=== PATIENT | male | born 1975 | race Caucasian/White ===

== ENCOUNTER 2022-10-21 08:04 | Outpatient (OUT) | payer OTHER, SELFPAY ==
[2022-10-21 08:56] LABS: Basophils Percent Auto 0.5 % (0.2-2.0); Eosinophils Absolute Auto 0.2 10^3/uL (0.0-0.7); Eosinophils Percent Auto 2.4 % (0.9-7.0); Hematocrit 41.5 % (42.0-54.0); Immature Granulocytes Abs Auto 0.02 10^3/uL (0.00-0.03); Immature Granulocytes Pct Auto 0.3 % (0.0-0.5); Mean Corpuscular HGB Conc 33.7 g/dL (29.9-35.2); Mean Corpuscular Hemoglobin 28.7 pg (25.9-34.0); Mean Platelet Volume 9.9 fL (9.5-13.5); Monocytes Absolute Auto 0.5 10^3/uL (0.3-0.8); Monocytes Percent Auto 6.6 % (1.7-12.0); Neutrophils Absolute Auto 4.7 10^3/uL (1.4-6.5); Neutrophils Percent Auto 63.2 % (43.0-75.0); Platelet Count 205 10^3/uL (150-450); Red Blood Count 4.88 10^6/uL (4.70-6.10); Red Cell Distribution Width 13.2 % (11.0-15.0); White Blood Count 7.4 10^3/uL (4.0-11.0)
[2022-10-21 09:03] LABS: Alanine Aminotransferase 34 U/L (16-63); Albumin Level 3.7 g/dL (3.4-5.0); Alkaline Phosphatase 87 U/L (46-116); Anion Gap 11.7; Aspartate Amino Transferase 20 U/L (15-37); BUN Creatinine Ratio 12.2; Bilirubin Total 0.4 mg/dL (0.2-1.0); Calcium 8.6 mg/dL (8.5-10.1); Carbon Dioxide 28.7 mmol/L (21.0-32.0); Chloride 103 mmol/L (98-107); Chol HDL Ratio 4.7; Cholesterol 127 mg/dL (<=200); Estimated GFR (African America >60 (>=60); Estimated GFR (Non-African Ame >60 (>=60); Globulin 3.6 g/dL; Glucose 146 mg/dL (74-106); HDL Cholesterol 27 mg/dL (40-60); Potassium 3.4 mmol/L (3.5-5.1); Sodium 140 mmol/L (136-145); Total Protein 7.3 g/dL (6.4-8.2); Triglycerides 126 mg/dL (<=150); VLDL CHOLESTEROL 25.2 mg/dL
[2022-10-21 09:04] LABS: Estimated Average Glucose 140 mg/dL; Glycohemoglobin A1C 6.5 % (4.5-6.2)
[2022-10-21 15:01] LABS: Creatinine Urine Random 245.89 mg/dL (20.00-300.00); Microalbum Creatinine Ratio Ur 7.3 mg/g (0.0-29.9); Microalbumin Urine Random 1.8 mg/dL (<=30.0)
== END 2022-10-21 08:05 | disposition home or self-care (01) ==
LOC: LAB 08:08
PROVIDERS: PCP Internal Medicine; Visit Provider Internal Medicine
DX: E11.9 Type 2 diabetes mellitus without complications (principal); I10 Essential (primary) hypertension; E78.5 Hyperlipidemia, unspecified
CPT/HCPCS: 36415; 80053; 80061; 82043; 82570; 83036; 85025

== ENCOUNTER 2022-10-24 15:15 | Emergency (ER) | payer OTHER, SELFPAY ==
[2022-10-24 15:18] VITALS: BP 131/75; PULSE 86; RESP 18; TEMP 37.1; O2SAT 94; BMI 43.6
--- NOTE | 2022-10-24 15:24 | ED.ABDPAIN1 ---
HPI - Abdominal Pain General Chief Complaint: Abdominal Pain Stated Complaint: ABDOMINAL PAIN Time Seen by Provider: 10/24/22 15:17 Source: patient Mode of arrival: walk-in History of Present Illness HPI narrative: 47-year-old male presents for abdominal pain. It starts at the umbilicus and wraps towards the right in a dermatomal fashion. It started about 2:00 this morning, about thirteen hours ago. No trauma fever constipation or diarrhea. No cough chest pain or chest pressure or shortness of breath. No pain on the left. It's mild to moderate. He states he had similar circumstances 4-6 months ago and they did x-rays and blood testing CAT scans but couldn't find the cause. Related Data Home Medications Medication Instructions Recorded Confirmed allopurinol 300 mg tablet 300 mg PO Q12H 10/24/22 10/24/22 amlodipine 10 mg tablet 10 mg PO QDAY 10/24/22 10/24/22 aspirin 81 mg tablet,delayed 81 mg PO QDAY 10/24/22 10/24/22 release buspirone 10 mg tablet 10 mg PO QDAY 10/24/22 10/24/22 carvedilol 25 mg tablet 25 mg PO Q12H 10/24/22 10/24/22 dulaglutide 1.5 mg/0.5 mL 1.5 mg subcut QDAY 10/24/22 10/24/22 subcutaneous pen injector (Trulicity) losartan 100 1 tab PO QDAY 10/24/22 10/24/22 mg-hydrochlorothiazide 25 mg tablet pravastatin 40 mg tablet 40 mg PO QDAY 10/24/22 10/24/22 tizanidine 4 mg tablet 4 mg PO Q12H 10/24/22 10/24/22 Allergies Allergy/AdvReac Type Severity Reaction Status Date / Time No Known Drug Allergies Allergy Verified 10/24/22 15:18 Review of Systems ROS Narrative A ten point review of systems is negative except as noted above. Exam Narrative Exam Narrative: Nurses note and vital signs reviewed and patient is not hypoxic. General: The patient appears well and in no apparent distress. Patient is resting comfortably on cart. Skin: Warm, dry, no pallor noted. There is no rash noted. Head: Normocephalic, atraumatic Eye: Normal conjunctiva, no drainage Ears, Nose, Mouth, and Throat: oral mucosa is moist. Nares patent. Cardiovascular: Regular Rate and Rhythm Respiratory: Patient is in no distress, no accessory muscle use, lungs are clear to auscultation, no wheezing, rales or rhonchi Back: non-tender GI: obese. Nondistended. There is no tenderness. There is no bruise or rash. There is no rash of shingles. Musculoskeletal: The patient has no evidence of calf tenderness, no pitting edema, symmetrical pulses noted bilaterally Neurological: A&O x4, normal speech Psychiatric: Cooperative Constitutional Vital Signs, click to edit/add: Last Vital Signs Temp 98.7 F 10/24/22 15:18 Pulse 86 10/24/22 15:18 Resp 18 10/24/22 15:18 BP 131/75 10/24/22 15:18 Pulse Ox 94 L 10/24/22 15:18 O2 Del Method Room Air 10/24/22 15:18 Course Vital Signs Vital signs: Vital Signs Temperature 98.7 F 10/24/22 15:18 Pulse Rate 86 10/24/22 15:18 Respiratory Rate 18 10/24/22 15:18 Blood Pressure 131/75 10/24/22 15:18 Pulse Oximetry 94 L 10/24/22 15:18 Oxygen Delivery Method Room Air 10/24/22 15:18 Temperature 98.7 F 10/24/22 15:18 Pulse Rate 86 10/24/22 15:18 Respiratory Rate 18 10/24/22 15:18 Blood Pressure 131/75 10/24/22 15:18 Pulse Oximetry 94 L 10/24/22 15:18 Oxygen Delivery Method Room Air 10/24/22 15:18 MDM - Abdominal Pain MDM Narrative Medical decision making narrative: Blood work is essentially normal. CT per radiologist shows constipation. He was recommended [id number] MiraLAX. Treatment diagnosis and follow-up were discussed with the patient. Differential Diagnosis Differential diagnosis: Likely abdominal pain, acute appendicitis, calculus of kidney, constipation, diverticulitis, gastroenteritis, pancreatitis and small bowel obstruction Lab Data Attestation: I reviewed the patient's lab results. Labs: Lab Results 10/24/22 Range/Units 15:52 WBC 9.1 (4.0-11.0) 10^3/uL RBC 4.85 (4.70-6.10) 10^6/uL Hgb 13.9 L (14.0-18.0) g/dL Hct 41.0 L (42.0-54.0) % MCV 84.5 (80.0-94.0) fL MCH 28.7 (25.9-34.0) pg MCHC 33.9 (29.9-35.2) g/dL RDW 13.2 (11.0-15.0) % Plt Count 226 (150-450) 10^3/uL MPV 9.9 (9.5-13.5) fL Neut % (Auto) 65.6 (43.0-75.0) % Lymph % (Auto) 24.1 (20.5-60.0) % [place] % (Auto) 7.2 (1.7-12.0) % Eos % (Auto) 2.4 (0.9-7.0) % Baso % (Auto) 0.4 (0.2-2.0) % Neut # (Auto) 5.9 (1.4-6.5) 10^3/uL Lymph # (Auto) 2.2 (1.2-3.8) 10^3/uL [place] # (Auto) 0.7 (0.3-0.8) 10^3/uL Eos # (Auto) 0.2 (0.0-0.7) 10^3/uL Baso # (Auto) 0.0 (0.0-0.1) 10^3/uL Abs Immat Gran (auto) 0.03 (0.00-0.03) 10^3/uL Imm/Tot Granulo (auto) 0.3 (0.0-0.5) % Sodium 142 (136-145) mmol/L Potassium 3.4 L (3.5-5.1) mmol/L Chloride 105 (98-107) mmol/L Carbon Dioxide 27.9 (21.0-32.0) mmol/L Anion Gap 12.5 BUN 13.0 (7.0-18.0) mg/dL Creatinine 0.96 (0.70-1.30) mg/dL Est GFR ( Amer) >60 (>=60) Est GFR (Non-Af Amer) >60 (>=60) BUN/Creatinine Ratio 13.5 Glucose 145 H (74-106) mg/dL Calcium 8.8 (8.5-10.1) mg/dL Total Bilirubin 0.5 (0.2-1.0) mg/dL Direct Bilirubin 0.1 (0.0-0.2) mg/dL AST 22 (15-37) U/L ALT 37 (16-63) U/L Alkaline Phosphatase 83 (46-116) U/L Total Protein 7.4 (6.4-8.2) g/dL Albumin 4.1 (3.4-5.0) g/dL Globulin 3.3 g/dL Albumin/Globulin Ratio 1.2 Amylase 31 (25-115) U/L Lipase 110.0 (73.0-393.0) U/L Imaging Data CT scan - abdomen: Radiologist's impression: CT abdomen per radiologist shows constipation Discharge Plan Discharge Chief Complaint: Abdominal Pain Clinical Impression: Constipation Patient Disposition: Home, Self-Care Time of Disposition Decision: 18:22 Condition: Good Mode of Transportation: Private Vehicle Prescriptions / Home Meds: No Action allopurinol 300 mg tablet 300 mg PO Q12H amlodipine 10 mg tablet 10 mg PO QDAY aspirin 81 mg tablet,delayed release (DR/EC) 81 mg PO QDAY buspirone 10 mg tablet 10 mg PO QDAY carvedilol 25 mg tablet 25 mg PO Q12H Trulicity 1.5 mg/0.5 mL pen injector 1.5 mg SUBCUT QDAY losartan-hydrochlorothiazide 100-25 mg tablet 1 tab PO QDAY pravastatin 40 mg tablet 40 mg PO QDAY tizanidine 4 mg tablet 4 mg PO Q12H Instructions: Constipation (ED) Stand Alone Forms: Portal Instructions Referrals: Shaikh Cordoba MD [Primary Care Provider] - 1 week
[2022-10-24 16:05] LABS: Basophils Percent Auto 0.4 % (0.2-2.0); Eosinophils Absolute Auto 0.2 10^3/uL (0.0-0.7); Eosinophils Percent Auto 2.4 % (0.9-7.0); Hemoglobin 13.9 g/dL (14.0-18.0); Immature Granulocytes Abs Auto 0.03 10^3/uL (0.00-0.03); Immature Granulocytes Pct Auto 0.3 % (0.0-0.5); Lymphocytes Absolute Auto 2.2 10^3/uL (1.2-3.8); Lymphocytes Percent Auto 24.1 % (20.5-60.0); Mean Corpuscular HGB Conc 33.9 g/dL (29.9-35.2); Mean Corpuscular Hemoglobin 28.7 pg (25.9-34.0); Mean Corpuscular Volume 84.5 fL (80.0-94.0); Mean Platelet Volume 9.9 fL (9.5-13.5); Monocytes Absolute Auto 0.7 10^3/uL (0.3-0.8); Monocytes Percent Auto 7.2 % (1.7-12.0); Neutrophils Absolute Auto 5.9 10^3/uL (1.4-6.5); Neutrophils Percent Auto 65.6 % (43.0-75.0); Platelet Count 226 10^3/uL (150-450); Red Blood Count 4.85 10^6/uL (4.70-6.10); Red Cell Distribution Width 13.2 % (11.0-15.0); White Blood Count 9.1 10^3/uL (4.0-11.0)
[2022-10-24 16:23] LABS: Alanine Aminotransferase 37 U/L (16-63); Albumin Globulin Ratio 1.2; Albumin Level 4.1 g/dL (3.4-5.0); Alkaline Phosphatase 83 U/L (46-116); Amylase 31 U/L (25-115); Anion Gap 12.5; Aspartate Amino Transferase 22 U/L (15-37); BUN Creatinine Ratio 13.5; Bilirubin Direct 0.1 mg/dL (0.0-0.2); Bilirubin Total 0.5 mg/dL (0.2-1.0); Calcium 8.8 mg/dL (8.5-10.1); Carbon Dioxide 27.9 mmol/L (21.0-32.0); Chloride 105 mmol/L (98-107); Estimated GFR (African America >60 (>=60); Estimated GFR (Non-African Ame >60 (>=60); Globulin 3.3 g/dL; Glucose 145 mg/dL (74-106); Potassium 3.4 mmol/L (3.5-5.1); Sodium 142 mmol/L (136-145); Total Protein 7.4 g/dL (6.4-8.2)
--- NOTE | 2022-10-24 16:44 | CT_ITS ---
[address] [address] Patient Name: KEVON BRENNER MRN: [id number] date: 1975 Sex: M Assigned Patient Location: ER Current Patient Location: ER Accession/Order Number: [id number] Exam Date: 10/24/2022 17:25 Report Date: 10/24/2022 18:08 At the request of: FATOU LEROY Procedure: CT abdomen pelvis w con EXAM: CT abdomen pelvis w con HISTORY: right sided pain COMPARISON: 07/25/2022 TECHNIQUE: Axial CT imaging was performed through the abdomen and pelvis with intravenous contrast. Multiplanar reformats were performed. Dose reduction techniques were achieved by using automated exposure control and/or adjustment of mA and/or kV according to patient size and/or use of iterative reconstruction technique. FINDINGS: Lung bases: Lung bases are clear. No pleural effusion. GI upper: Small hiatal hernia. Liver: Hepatic steatosis. Normal size and contour. Gallbladder: No significant abnormality. No cholelithiasis. Biliary system: No intra or extrahepatic biliary ductal dilatation. Spleen: Normal size. Pancreas: Unremarkable. Adrenal glands: Normal adrenal glands. Kidneys/ureters: Normal contours. No hydronephrosis. There are 2 left renal stones measuring up to 0.3 cm. Vessels: No aneurysm. Lymph Nodes: No lymphadenopathy. Small bowel: No wall thickening or dilatation. Colon: No wall thickening or dilatation. Evidence of constipation. Appendix: Appendix is identified with normal appearance. Peritoneal cavity: No free fluid or pneumoperitoneum. Lower : Unremarkable. Bones: No acute bony abnormality. Soft tissues: No acute finding. Additional findings: None. CT/CT abdomen pelvis w con IMPRESSION: Nonobstructing left renal stones measuring up to 0.4 cm. Constipation. Electronically authenticated by: DUTCH ABDI Date: 10/24/2022 18:08
== END 2022-10-24 18:32 | disposition home or self-care (01) ==
PROVIDERS: Emergency Provider Emergency Medicine; PCP Internal Medicine
DX: K59.00 Constipation, unspecified (principal); Z79.82 Long term (current) use of aspirin; Z79.899 Other long term (current) drug therapy
CPT/HCPCS: 36415; 74177; 80048; 80076; 82150; 83690; 85025; 99285; Q9967

== ENCOUNTER 2023-06-06 10:51 | Outpatient (OUT) | payer OTHER, SELFPAY ==
--- NOTE | 2023-06-06 10:58 | XR_ITS ---
[facility] [place] [id number] Patient Name: KEVON BRENNER MRN: [id number] date: 1975 Sex: M Assigned Patient Location: [facility] Current Patient Location: [facility] Accession/Order Number: [id number] Exam Date: 06/06/2023 11:10 Report Date: 06/06/2023 13:00 At the request of: SHAIKH ALIZE Procedure: XR lumbar spine 2-3V EXAM: XR lumbar spine 2-3V HISTORY: acute bilateral low back pain with right sided sciatica COMPARISON: None. TECHNIQUE: 3 views FINDINGS: Satisfactory alignment. Maintained vertebral body heights multilevel endplate degenerative changes, disc disease, anterior spurring of L3-S1. No acute fracture or significant subluxation. Punctate left nephrolithiasis. XR/XR lumbar spine 2-3V IMPRESSION: Degenerative changes and disc disease as above. Punctate left nephrolithiasis. Electronically authenticated by: RODOLFO ARANGO Date: 06/06/2023 13:00
== END 2023-06-06 10:52 | disposition home or self-care (01) ==
LOC: RAD 10:52
PROVIDERS: PCP Internal Medicine; Visit Provider Internal Medicine
DX: M54.41 Lumbago with sciatica, right side (principal); M51.36 Other intervertebral disc degeneration, lumbar region; N20.0 Calculus of kidney
CPT/HCPCS: 72100

== ENCOUNTER 2023-06-16 11:23 | Emergency (ER) | payer OTHER, SELFPAY ==
[2023-06-16 11:43] VITALS: BP 155/96; PULSE 74; RESP 18; TEMP 36.9; O2SAT 95; BMI 43.5
--- NOTE | 2023-06-16 11:58 | ED.BACK1 ---
HPI - Back Pain/Injury General Chief Complaint: Back Pain/Injury Stated Complaint: LOWER EXTREMITY PAIN, RIGHT Time Seen by Provider: 06/16/23 11:53 Source: patient Mode of arrival: walk-in Limitations: no limitations History of Present Illness HPI Narrative: 48-year-old male presents for right lower back pain going down his leg. It is in the anterior part of his upper leg and it goes all the way down to his foot. He has had no trauma and he has had this for few weeks. He had some outpatient x-rays which show degenerative changes and he has been on some steroids. Related Data Home Medications ?Medication ?Instructions ?Recorded ?Confirmed allopurinol 300 mg tablet 300 mg PO Q12H 10/24/22 10/24/22 amlodipine 10 mg tablet 10 mg PO QDAY 10/24/22 10/24/22 aspirin 81 mg tablet,delayed 81 mg PO QDAY 10/24/22 10/24/22 release buspirone 10 mg tablet 10 mg PO QDAY 10/24/22 10/24/22 carvedilol 25 mg tablet 25 mg PO Q12H 10/24/22 10/24/22 dulaglutide 1.5 mg/0.5 mL 1.5 mg subcut QDAY 10/24/22 10/24/22 subcutaneous pen injector (Trulicity) losartan 100 1 tab PO QDAY 10/24/22 10/24/22 mg-hydrochlorothiazide 25 mg tablet pravastatin 40 mg tablet 40 mg PO QDAY 10/24/22 10/24/22 tizanidine 4 mg tablet 4 mg PO Q12H 10/24/22 10/24/22 Previous Rx's ?Medication ?Instructions ?Recorded cyclobenzaprine 10 mg tablet 10 mg PO TID PRN muscle spasm #20 06/16/23 tabs oxycodone-acetaminophen 5 mg-325 1 tab PO Q6H PRN pain 5 days #20 06/16/23 mg tablet (Percocet) tabs Allergies Allergy/AdvReac Type Severity Reaction Status Date / Time No Known Drug Allergies Allergy Verified 06/16/23 11:43 Review of Systems ROS Narrative A ten point review of systems is negative except as noted above. Exam Narrative Exam Narrative: Nurses note and vital signs reviewed and patient is not hypoxic. General: The patient appears uncomfortable. He is sitting on the edge of the cart with his right hip and knee fully extended Skin: Warm, dry, no pallor noted. There is no rash noted. Head: Normocephalic, atraumatic Eye: Normal conjunctiva, no drainage Ears, Nose, Mouth, and Throat: oral mucosa is moist. Nares patent. Cardiovascular: Regular Rate and Rhythm Respiratory: Patient is in no distress, no accessory muscle use, lungs are clear to auscultation, no wheezing, rales or rhonchi Back: No bruise rash or focal area of tenderness to palpation GI: Soft and nontender Musculoskeletal: The patient has no evidence of calf tenderness, no pitting edema, symmetrical pulses noted bilaterally Neurological: A&O, normal speech Psychiatric: Cooperative Constitutional Vital Signs, click to edit/add: Last Vital Signs Temp 98.5 F 06/16/23 11:43 Pulse 74 06/16/23 11:43 Resp 18 06/16/23 11:43 BP 155/96 H 06/16/23 11:43 Pulse Ox 95 06/16/23 11:43 O2 Del Method Room Air 06/16/23 11:43 Course Vital Signs Vital signs: Vital Signs Temperature 98.5 F 06/16/23 11:43 Pulse Rate 74 06/16/23 11:43 Respiratory Rate 18 06/16/23 11:43 Blood Pressure 155/96 H 06/16/23 11:43 Pulse Oximetry 95 06/16/23 11:43 Oxygen Delivery Method Room Air 06/16/23 11:43 Temperature 98.5 F 06/16/23 11:43 Pulse Rate 74 06/16/23 11:43 Respiratory Rate 18 06/16/23 11:43 Blood Pressure 155/96 H 06/16/23 11:43 Pulse Oximetry 95 06/16/23 11:43 Oxygen Delivery Method Room Air 06/16/23 11:43 MDM - Back Pain/Injury MDM Narrative Medical decision making narrative: CT findings are discussed with the patient and he is referred to orthopedics for appropriate follow-up. Treatment diagnosis and follow-up were discussed with the patient. Differential Diagnosis Differential diagnosis: Likely lumbar radiculopathy, sciatica, strain of lumbar region and other (Degenerative disc disease, lumbar arthritis) Imaging Data CT lumbar spine: Radiologist's impression: ITS Impressions Lumbar Spine CT 06/16/23 12:25 IMPRESSION: Moderate degenerative discogenic changes with calcification with central and foraminal stenosis at several levels as detailed above Electronically authenticated by: BAO OSPINA Date: 06/16/2023 12:50 Discharge Plan Discharge Stand Alone Forms: Portal Instructions Chief Complaint: Back Pain/Injury Clinical Impression: Arthritis, lumbar spine Patient Disposition: Home, Self-Care Time of Disposition Decision: 14:38 Condition: Good Mode of Transportation: Private Vehicle Prescriptions / Home Meds: New oxycodone-acetaminophen [Percocet] 5-325 mg tablet 1 tab PO Q6H PRN (Reason: pain) 5 Days Qty: 20 0RF cyclobenzaprine 10 mg tablet 10 mg PO TID PRN (Reason: muscle spasm) Qty: 20 0RF No Action allopurinol 300 mg tablet 300 mg PO Q12H amlodipine 10 mg tablet 10 mg PO QDAY aspirin 81 mg tablet,delayed release (DR/EC) 81 mg PO QDAY buspirone 10 mg tablet 10 mg PO QDAY carvedilol 25 mg tablet 25 mg PO Q12H Trulicity 1.5 mg/0.5 mL pen injector 1.5 mg SUBCUT QDAY losartan-hydrochlorothiazide 100-25 mg tablet 1 tab PO QDAY pravastatin 40 mg tablet 40 mg PO QDAY tizanidine 4 mg tablet 4 mg PO Q12H Print Language: Kinyarwanda Instructions: Osteoarthritis (ED), Acute Low Back Pain (ED), Lumbar Radiculopathy (ED) Additional Instructions: You have an appointment with Dr. Norris at 8:30 AM on June 22. Referrals: Shaikh Cordoba MD [Primary Care Provider] - 1 week
--- OUTSIDE RECORDS SUMMARY | 2023-06-16 12:14 | XMS_ITS | CCD ---
Author Organization [facility] Care Team Providers Care Hi Ranger Operator Name Role Phone Alexandra Gill Unavailable Alexandra Dimas Unavailable JUSTO Cannon Attending Provider Maime Cannon Unavailable FAWWAD, YIN H Admitting Unavailable FAWWAD, YIN H Attending Unavailable FAWWAD, YIN H Consulting Unavailable FAWWAD, YIN H Primary Care Unavailable JOSE Rodriguez, DR HUNT Admitting Unavailable JOSE ., DR HUNT Attending Unavailable JOSE ., DR HUNT Consulting Unavailable FAWWAD, YIN H Primary Care Unavailable KAVIN BRIONES Consulting Unavailable FAWWAD, YIN H Admitting Unavailable FAWWAD, YIN H Attending Unavailable FAWWAD, YIN H Consulting Unavailable FAWWAD, YIN H Primary Care Unavailable FAWWAD, YIN H Admitting Unavailable MIKAYLA COVINGTON Consulting Unavailable FAWWAD, YIN H Attending Unavailable FAWWAD, YIN H Primary Care Unavailable FAWWAD, YIN H Consulting Unavailable FAWWAD, YIN H Primary Care Unavailable KIM JARRETT Consulting Unavailable FAWWAD, YIN H Admitting Unavailable FAWWAD, YIN H Attending Unavailable FAWWAD, YIN H Consulting Unavailable FAWWAD, YIN Attending Unavailable Medications Current Medications Medication Drug Class(es) Dates Sig (Normalized) Sig (Original) [id number] 200 actuat albuterol 0.09 mg/actuat metered dose inhaler (2 sources) beta2-Adrenergic Agonist Start: 02-19-2021 take 2 puff(s) by inhalation every four to six hours as needed Albuterol Sulfate HFA 108 (90 Base) MCG/ACT 2 puffs as needed Inhalation every 4-6 hours for 14 days Jan, Active Start: 12-04-2020 take 2 puff(s) by in halation every four hours as needed Albuterol Sulfate HFA 108 (90 Base) MCG/ACT 2 puffs as needed Inhalation every 4 hrs Nov, Active amLODIPine (6 sources) Dihydropyridine Calcium Channel Ana Laura amLODIPine Besylate Active ASA (6 sources) ASA Active Atenolol (6 sources) beta-Adrenergic Ana Laura Atenolol Active benzonatate 100 mg oral capsule (1 source) Non-narcotic Antitussive Start: 12-05-19 21 take 1 capsule by mouth three times daily as needed Tessalon Perles 100 MG 1 capsule as needed Orally Three times a day Nov, Active cephalexin 500 mg oral capsule (6 sources) Cephalosporin Antibacterial Start: 10-11-19 take 1 capsule by mouth every twelve hours Cephalexin 500 MG 1 capsule Orally two times a day for 5 day(s) Sep, Active Start: 05-19-2021 take 1 tablet by chintan th every twelve hours Cephalexin 500 MG 1 tablet Orally every 12 hrs for 10 day(s) Apr, Active empagliflozin (6 sources) Sodium-Glucose Cotransporter 2 Inhibitor JARDIANCE Active fluticasone propionate 0.05 mg/actuat metered dose nasal spray (2 sources) Corticosteroid Start: 2020 take 1 spray(s) nasal route once daily Fluticasone Propionate 50 MCG/ACT 1 spray in each nostril Nasally Once a day for 21 days Nov, Active hydroCHLOROthiazide (6 sources) Thiazide Diuretic hydroCHLOROthi azide Active hydrOXYzine (6 sources) Antihistamine hydrOXYzine HCl Active Lisinopril (6 sources) Angiotensin Converting Enzyme Inhibitor Lisinopril Active methylPREDNISolone 4 mg oral tablet (1 source) Corticosteroid Start: 2020 methylPREDNISolone 4 MG as directed Orally Once a day for 6 days Nov, Active mupirocin 0.02 mg/mg topical ointment (1 source) RNA Synthetase Inhibitor Antibacterial Start: 2021 Mupirocin 2 % 1 application Externally Three times a day for 7 days Apr, Active Pravastatin (12 sources) HMG-CoA Reductase Inhibitor Pravastatin Active Pravastatin Sodi um Active Sertraline (6 sources) Serotonin Reuptake Inhibitor Zol oft Active Completed/Discontinued Medications Medication Drug Class(es) Dates Sig (Normalized) Sig (Original) cefTRIAXone (4 sources) Cephalosporin Antibacterial Start: 05-26-2018 Rocephin 500 mg May, 1 g Problems Active Problems Problem Classification Problem Date Documented Da te Episodic/Chronic Abdominal pain (4 sources) Right upper quadrant pain; Translations: [RIGHT UPPER QUADRANT PAIN] Onset: 07-24-2022 Episodic Diabetes mellitus without complication (5 sources) Type 2 diabetes mellitus without complications; Translations: [TYPE 2 DM WITHOUT COMPLICATIONS] Onset: 03-10-2022 Chronic Disorders of lipid metabolism (1 source) Hyperlipidemia, unspecified; Translations: [HYPERLIPIDEMIA UNSPECIFIED] Onset: 03-10-2022 Chronic Essential hypertension (5 sources) Essential (primary) hypertension; Translations: [ESSENTIAL PRIMARY HYPERTENSION] Onset: 03-07-2022 Chronic Immunizations and screening for infectious disease (2 sources) Contact with and (suspected) exposure to other viral communicable diseases Onset: 02-19-2021 Resolved: 02-19-2021 Episodic Nausea and vomiting (6 sources) Nausea and vomiting; Translations: [Nausea with vomiting, unspecified] Episodic Other aftercare (1 source) halfway (current) use of aspirin; Translations: [[facility]I CURRENT USE OF ASPIRIN] Onset: 07-29-2022 Episodic Other aftercare (1 source) Other mcc (current) drug therapy; Translations: [OTH [facility] CURRENT DRUG THERAPY] Onset: 07-29-2022 Episodic Other ear and sense organ disorders (6 sources) Otitis externa; Translations: [Other otitis externa, bilateral] Chronic Other gastrointestinal disorders (12 sources) Diarrhea; Translations: [Diarrhea, unspecified] Episodic Past or Other Problems Problem Classification Problem Date Documented Da te Episodic/Chronic Genitourinary symptoms and ill-defined conditions (3 sources) Dysuria Onset: 10-10-2021 Resolved: 10-10-2021 Episodic Skin and subcutaneous tissue infections (1 source) Cellulitis of right toe Onset: 05-10-2021 Resolved: 05-10-2021 Episodic Urinary tract infections (3 sources) Urinary tract infection, site not specified Onset: 10-10-2021 Resolved: 10-10-2021 Episodic Viral infection (2 sources) COVID-19 Onset: 02-19-2021 Resolved: 02-19-2021 Results Test Name Value Interpretation Reference Range Facility AMYLASEon 07-25-2022 Amylase [Catalytic activity/Vol] 32 U/L Normal 25-115 [facility] Comment on above: Performed By: #### L IPA, JORDON, CMP #### [facility] [address] [place] [address] Dr. Brady Sanders CBC AUTO DIFFon 07-25-2022 BASO # 0.0 103/ul Normal 0.0-0.1 [facility] Comment on above: Performed By: #### C BC #### [facility] [address] [place] [address] Dr. Brady Sanders Basophils/100 WBC (Bld) 0.4 % Normal 0.2-2.0 [facility] Comment on above: Performed By: #### C BC #### [facility] [address] [place] [address] Dr. Brady Sanders EO # 0.1 103/ul Normal 0.0-0.7 [facility] Comment on above: Performed By: #### C BC #### [facility] [address] [place] [address] Dr. Brady Sanders Eosinophils/100 WBC (Bld) 1.5 % Normal 0.9-7.0 [facility] Comment on above: Performed By: #### C BC #### [facility] [address] [place] [address] Dr. Brady Sanders Erythrocyte distribution width (RBC) [Ratio] 13.2 % Normal 11.0-15.0 [facility] Comment on above: Performed By: #### C BC #### [facility] [address] [place] [address] Dr. Brady Sanders Hematocrit (Bld) [Volume fraction] 41.0 % Critically low 42.0-54.0 [facility] Comment on above: Performed By: #### C BC #### [facility] [address] [place] [address] Dr. Brady Sanders Hemoglobin (Bld) [Mass/Vol] 13.8 g/dL Critically low 14.0-18.0 [facility] Comment on above: Performed By: #### C BC #### [facility] [address] [place] [address] Dr. Brady Sanders IG # 0.03 10e3/ul Normal 0.00-0.03 [facility] Comment on above: Performed By: #### C BC #### [facility] [address] [place] [address] Dr. Brady Sanders IG % 0.4 % Normal 0.0-0.5 [facility] Comment on above: Performed By: #### C BC #### [facility] [address] [place] [address] Dr. Brady Sanders LYMPH # 1.8 103/ul Normal 1.2-3.8 [facility] Comment on above: Performed By: #### C BC #### [facility] [address] [place] [address] Dr. Brady Sanders Lymphocytes/100 WBC (Bld) 21.4 % Normal 20.5-60.0 [facility] Comment on above: Performed By: #### C BC #### [facility] [address] [place] [address] Dr. Brady Sanders MANUAL DIFF REQ NO Normal [facility] Comment on above: Performed By: #### C BC #### [facility] [address] [place] [address] Dr. Brady Sanders MCH (RBC) [Entitic mass] 28.1 pg Normal 25.9-34.0 [facility] Comment on above: Performed By: #### C BC #### [facility] [address] [place] [address] Dr. Brady Sanders MCHC (RBC) [Mass/Vol] 33.7 g/dL Normal 29.9-35.2 [facility] Comment on above: Performed By: #### C BC #### [facility] [address] [place] [address] Dr. Brady Sanders MCV (RBC) [Entitic vol] 83.5 fL Normal 80.0-94.0 [facility] Comment on above: Performed By: #### C BC #### [facility] [address] [place] [address] Dr. Brady Sanders MONO # 0.5 103/ul Normal 0.3-0.8 [facility] Comment on above: Performed By: #### C BC #### [facility] [address] [place] [address] Dr. Brady Sanders Monocytes/100 WBC (Bld) 6.2 % Normal 1.7-12.0 [facility] Comment on above: Performed By: #### C BC #### [facility] [address] [place] [address] Dr. Brady Sanders NEUT # 5.9 103/ul Normal 1.4-6.5 [facility] Comment on above: Performed By: #### C BC #### [facility] [address] [place] [address] Dr. Brady Sanders Neutrophils/100 WBC (Bld) 70.1 % Normal 43.0-75.0 [facility] Comment on above: Performed By: #### C BC #### [facility] [address] [place] [address] Dr. Brady Sanders Platelet mean volume (Bld) [Entitic vol] 9.6 fL Normal 9.5-13.5 [facility] Comment on above: Performed By: #### C BC #### [facility] [address] [place] [address] Dr. Brady Sanders PLT 216 103/ul Normal 150-450 [facility] Comment on above: Performed By: #### C BC #### [facility] [address] [place] [address] Dr. Brady Sanders RBC 4.91 106/ul Normal 4.70-6.10 [facility] Comment on above: Performed By: #### C BC #### [facility] [address] [place] [address] Dr. Brady Sanders WBC 8.4 103/ul Normal 4.0-11.0 [facility] Comment on above: Performed By: #### C BC #### [facility] [address] [place], [place] [address] ABD/PELV W CONon 07-26-19 CT ABD/PELV W CON EXAMINATION: CT ABD/PELV W CON HISTORY: Upper abdominal pain COMPARISON: 07/24/2022; 07/11/2022 TECHNIQUE: Axial CT images were obtained of the abdomen and pelvis with intravenous contrast. Multiplanar reconstructions were performed. Dose reduction techniques were achieved by using automated exposure control and/or adjustment of mA and/or kV according to patient size and/or use of iterative reconstruction technique. ABDOMEN/PELVIS FINDINGS: Lower Chest: Unremarkable. Liver: Normal enhancement and contour. The liver is enlarged measuring approximately 20.3 cm in craniocaudal dimension. Biliary/Gallbladder: Unremarkable. Pancreas: Unremarkable. Spleen: Unremarkable. Adrenal Glands: Unremarkable. Kidneys: A couple punctate nonobstructive calculi are present in the left kidney. Gastrointestinal/Perito neum: No acute abnormality. Mild colonic diverticulosis is present. The appendix is unremarkable. No free air or free fluid. Vascular: Unremarkable. Lymph Nodes: No enlarged lymph nodes by CT size criteria. Pelvic Organs: Unremarkable. Bladder: Unremarkable. Bones: No acute osseous abnormality. Mild multilevel degenerative changes are present in the visualized spine. Soft tissues: Unremarkable. IMPRESSION: 1. No acute abnormality of the abdomen and pelvis. 2. Nephrolithiasis. 3. Mild colonic diverticulosis. 4. Hepatomegaly. Electronically authenticated by: KAVIN BRIONES Date: 2022-07-25 10:58 Normal [facility] LIPASEon 07-25-2022 Lipase [Catalytic activity/Vol] 96.0 U/L Normal 73.0-393.0 [facility] Comment on above: Performed By: #### L IPA, JORDON, CMP #### [facility] [address] [place], [place] [address] Dr. Brady Sanders PROF 14(COMP METB)on 023 Albumin [Mass/Vol] 3.4 g/dL Normal 3.4-5.0 [facility] Comment on above: Performed By: #### L IPA, JORDON, CMP #### [facility] [address] [place], [place] [address] Dr. Brady Sanders Albumin/Globulin [Mass ratio] 0.9 {ratio} Normal [facility] Comment on above: Performed By: #### L JORDON GARRETT, CMP #### [facility] [address] [place] [address] [address] Brady Sanders ALP [Catalytic activity/Vol] 88 U/L Normal 46-116 [facility] Comment on above: Performed By: #### L JORDON GARRETT, CMP #### [facility] [address] [address] [address] Brady Sanders ALT [Catalytic activity/Vol] 27 U/L Normal 16-63 [facility] Comment on above: Performed By: #### L JORDON GARRETT, CMP #### [facility] [address] [place] [address] Dr. Brady Sanders Anion gap [Moles/Vol] 9.2 mmol/L Normal [facility] Comment on above: Performed By: #### L JORDON GARRETT, CMP #### [facility] [address] [place] [address] Dr. Brady Sanders AST [Catalytic activity/Vol] 18 U/L Normal 15-37 [facility] Comment on above: Performed By: #### L JORDON GARRETT, CMP #### [facility] [address] [place] [address] Dr. Brady Sanders Bilirubin [Mass/Vol] 0.4 mg/dL Normal 0.2-1.0 [facility] Comment on above: Performed By: #### L JORDON GARRETT, CMP #### [facility] [address] [place] [address] Dr. Brady Sanedrs Calcium [Mass/Vol] 8.5 mg/dL Normal 8.5-10.1 [facility] Comment on above: Performed By: #### L JORDON GARRETT, CMP #### [facility] [address] [place] [address] Dr. Brady Sanders Chloride [Moles/Vol] 103 mmol/L Normal 98-107 [facility] Comment on above: Performed By: #### L JORDON GARRETT, CMP #### [facility] [address] [place] [address] Dr. Brady Sanders CO2 [Moles/Vol] 31.1 mmol/L Normal 21.0-32.0 [facility] Comment on above: Performed By: #### L JORDON GARRETT, CMP #### [facility] [address] [address] [address] Brady Sanders Creatinine [Mass/Vol] 0.79 mg/dL Normal 0.70-1.30 [facility] Comment on above: Performed By: #### L JORDON GARRETT, CMP #### [facility] [address] [address] [address] Brady Sanders EGFR-AF SAO TOMEAN >60 Normal >=60 [facility] Comment on above: Performed By: #### L JORDON GARRETT, CMP #### [facility] [address] [address] [address] Brady Sanders EGFR-NON AF SAO TOMEAN >60 Normal >=60 [facility] Comment on above: Performed By: #### L JORDON GARRETT, CMP #### [facility] [address] [address] [address] Brady Sanders Globulin (S) [Mass/Vol] 3.8 g/dL Normal [facility] Comment on above: Performed By: #### L JORDON GARRETT, CMP #### [facility] [address] [address] [address] Brady Sanders Glucose [Mass/Vol] 140 mg/dL Critically high 74-106 T [facility] Comment on above: Performed By: #### L JORDON GARRETT, CMP #### [facility] [address] [address] [address] Brady Sanders Potassium [Moles/Vol] 3.3 mmol/L Critically low 3.5-5.1 [facility] Comment on above: Performed By: #### L JORDON GARRETT, CMP #### [facility] [address] [address] [address] Brady Sanders Protein [Mass/Vol] 7.2 g/dL Normal 6.4-8.2 [facility] Comment on above: Performed By: #### L JORDON GARRETT, CMP #### [facility] [address] [address] [address] Brady Sanders Sodium [Moles/Vol] 140 mmol/L Normal 136-145 [facility] Comment on above: Performed By: #### L JORDON GARRETT, CMP #### [facility] [address] [address] [address] Brady Sanders Urea nitrogen [Mass/Vol] 10.0 mg/dL Normal 7.0-18.0 [facility] Comment on above: Performed By: #### L JORDON GARRETT, CMP #### [facility] [address], [place] [address] Dr. Brady Sanders Urea nitrogen/Creatinine [Mass ratio] 12.7 mg/mg Normal [facility] Comment on above: Performed By: #### L JORDON GARRETT, CMP #### [facility] [address] [address] [address] Brady Sanders NM HEPATOBILIARY SCAN W EFon 07-24-2022 NM HEPATOBILIARY SCAN W EF HIDA SCAN WITH GALLBLADDER EJECTION FRACTION HISTORY: Abdominal Pain. COMPARISON: Ultrasound 07/11/2022. METHOD: Following IV injection of 5. mCi of [id number] , anterior imaging of the abdomen was acquired for 60 minutes. After the gallbladder was visualized the patient was given 8 ounces of Ensure and the gallbladder ejection fraction was calculated. FINDINGS: There is satisfactory uptake of radiopharmaceutical by the liver. The gallbladder, bile duct, and bowel are seen in the expected period of time and sequence. The gallbladder ejection fraction is normal at 76%. IMPRESSION: Normal hepatic biliary scintigraphy and gallbladder ejection fraction. Electronically authenticated by: KIM JARRETT Date: 2022-07-24 09:14 Normal [facility] US SINGLE QUAD RT UPPERon US SINGLE QUAD RT UPPER EXAMINATION: US SINGLE QUAD RT UPPER HISTORY: Right upper quadrant pain COMPARISON: No relevant comparison available. TECHNIQUE: Transabdominal evaluation of the right upper quadrant. FINDINGS: LIVER: Slightly increased echogenicity suggestive of fatty infiltration. PORTAL VEIN: Duplex Doppler demonstrates normal hepatopetal flow pattern with flow velocity averaging 35 cm/s. GALLBLADDER: No visible gallstones, wall thickening, or pericholecystic free fluid. Negative sonographic Peterson's sign. BILIARY: No abnormal dilation or stones. Common bile duct diameter is within normal limits. PANCREASE: No visible mass, abnormal atrophy, or duct dilation. KIDNEY: No hydronephrosis. No visible mass or stones. Size: 10.1 x 5.8 x 5.4 cm IMPRESSION: 1. Mild fatty infiltration of liver. 2. No suspicious findings to account for patient's symptoms. Electronically authenticated by: MIKAYLA COVINGTON Date: 2022-07-11 11:55 Normal [facility] GLYCOHEMOGLOBIN A1Con 2022 ADA RECOMMENDATION SEE BELOW Normal [facility] Comment on above: Result Comment: ADA RECOMMENDED LIMIT 4.0 - 6.0 ADA THERAPEUTIC TARGET < 7.0 ACTION SUGGESTED > 7.0 Performed By: #### A 1C #### [facility] [address] [place] [address] Dr. Brady Sanders Glucose [Mass/Vol] 143 mg/dL Normal [facility] Comment on above: Performed By: #### A 1C #### [facility] [address] [address] [address] Brady Sanders HbA1c (Bld) [Mass fraction] 6.6 % Critically high 4.5-6.2 [facility] Comment on above: Performed By: #### A 1C #### [facility] [address] [place] [address] Dr. Brady Sanders COVID + FLU Quick Testingon 03-13-2022 SARS-CoV-2 (COVID-19) RNA ADELINA+probe Ql (Unsp spec) Positive [facility] Other COVID + FLU Quick Testing Negative [facility] Other CBC AUTO DIFFon 03-07-2022 BASO # 0.0 103/ul Normal 0.0-0.1 [facility] Comment on above: Performed By: #### C BC #### [facility] [address] [place] [address] Dr. Brady Sanders Basophils/100 WBC (Bld) 0.5 % Normal 0.2-2.0 [facility] Comment on above: Performed By: #### C BC #### [facility] [address] [place] [address] Dr. Brady Sanders EO # 0.1 103/ul Normal 0.0-0.7 [facility] Comment on above: Performed By: #### C BC #### [facility] [address] [place] [address] Dr. Brady Sanders Eosinophils/100 WBC (Bld) 1.8 % Normal 0.9-7.0 [facility] Comment on above: Performed By: #### C BC #### [facility] [address] [place] [address] Dr. Brady Sanders Erythrocyte distribution width (RBC) [Ratio] 13.5 % Normal 11.0-15.0 [facility] Comment on above: Performed By: #### C BC #### [facility] [address] [place] [address] Dr. Brady Sanders Hematocrit (Bld) [Volume fraction] 46.5 % Normal 42.0-54.0 [facility] Comment on above: Performed By: #### C BC #### [facility] [address] [place] [address] Dr. Brady Sanders Hemoglobin (Bld) [Mass/Vol] 15.6 g/dL Normal 14.0-18.0 [facility] Comment on above: Performed By: #### C BC #### [facility] [address] [place] [address] Dr. Brady Sanders IG # 0.02 10e3/ul Normal 0.00-0.03 [facility] Comment on above: Performed By: #### C BC #### [facility] [address] [place] [address] Dr. Brady Sanders IG % 0.3 % Normal 0.0-0.5 [facility] Comment on above: Performed By: #### C BC #### [facility] [address] [place] [address] Dr. Brady Sanders LYMPH # 1.8 103/ul Normal 1.2-3.8 [facility] Comment on above: Performed By: #### C BC #### [facility] [address] [place] [address] Dr. Brady Sanders Lymphocytes/100 WBC (Bld) 22.3 % Normal 20.5-60.0 [facility] Comment on above: Performed By: #### C BC #### [facility] [address] [place] [address] Dr. Brady Sanders MANUAL DIFF REQ NO Normal [facility] Comment on above: Performed By: #### C BC #### [facility] [address] [place] [address] Dr. Brady Sanders MCH (RBC) [Entitic mass] 28.0 pg Normal 25.9-34.0 [facility] Comment on above: Performed By: #### C BC #### [facility] [address] [place] [address] Dr. Brady Sanders MCHC (RBC) [Mass/Vol] 33.5 g/dL Normal 29.9-35.2 [facility] Comment on above: Performed By: #### C BC #### [facility] [address] [place] [address] Dr. Brady Sanders MCV (RBC) [Entitic vol] 83.3 fL Normal 80.0-94.0 [facility] Comment on above: Performed By: #### C BC #### [facility] [address] [place] [address] Dr. Brady Sanders MONO # 0.5 103/ul Normal 0.3-0.8 [facility] Comment on above: Performed By: #### C BC #### [facility] [address] [place] [address] Dr. Brady Sanders Monocytes/100 WBC (Bld) 6.1 % Normal 1.7-12.0 [facility] Comment on above: Performed By: #### C BC #### [facility] [address] [place] [address] Dr. Brady Sanders NEUT # 5.4 103/ul Normal 1.4-6.5 [facility] Comment on above: Performed By: #### C BC #### [facility] [address] [place] [address] Dr. Brady Sanders Neutrophils/100 WBC (Bld) 69.0 % Normal 43.0-75.0 [facility] Comment on above: Performed By: #### C BC #### [facility] [address] [place] [address] Dr. Brady Sanders Platelet mean volume (Bld) [Entitic vol] 10.3 fL Normal 9.5-13.5 [facility] Comment on above: Performed By: #### C BC #### [facility] [address] [place] [address] Dr. Brady Sanders PLT 230 103/ul Normal 150-450 [facility] Comment on above: Performed By: #### C BC #### [facility] [address] [place] [address] Dr. Brady Sanders RBC 5.58 106/ul Normal 4.70-6.10 [facility] Comment on above: Performed By: #### C BC #### [facility] [address] [place] [address] Dr. Brady Sanders WBC 7.9 103/ul Normal 4.0-11.0 [facility] Comment on above: Performed By: #### C BC #### [facility] [address] [place] [address] Dr. Brady Sanders GLYCOHEMOGLOBIN A1Con 2021 ADA RECOMMENDATION SEE BELOW Normal [facility] Comment on above: Result Comment: ADA RECOMMENDED LIMIT 4.0 - 6.0 ADA THERAPEUTIC TARGET < 7.0 ACTION SUGGESTED > 7.0 Performed By: #### A 1C #### [facility] [address] [place] [address] Dr. Brady Sanders Glucose [Mass/Vol] 200 mg/dL Normal [facility] Comment on above: Performed By: #### A 1C #### [facility] [address] [place] [address] Dr. Brady Sanders HbA1c (Bld) [Mass fraction] 8.6 % Critically high 4.5-6.2 [facility] Comment on above: Performed By: #### A 1C #### [facility] [address] [place], [place] [id number] Dr. Brady Sanders LIPID PROFILEon 03-07-2022 CHOL-HDL RATIO NORM SEE BELOW Normal [facility] Comment on above: Result Comment: 3.3 - 4.4 LOW RISK 4.4 - 7.1 AVERAGE RISK 7.1 - 11.0 MODERATE RISK >11.0 HIGH RISK Performed By: #### L JORDON GARRETT, CMP #### [facility] [address] [place] [address] Dr. Brady Sanders Cholesterol [Mass/Vol] 136 mg/dL Normal <=200 [facility] Comment on above: Performed By: #### L GERRY JORDON, CMP #### [facility] [address] [place] [address] Dr. Brady Sanders Cholesterol in HDL [Mass/Vol] 26 mg/dL Critically low 40-60 [facility] Comment on above: Performed By: #### L GERRY JORDON, CMP #### [facility] [address] [place] [address] Dr. Brady Sanders Cholesterol in LDL [Mass/Vol] 77.2 mg/dL Normal [facility] Comment on above: Performed By: #### L JORDON GARRETT, CMP #### [facility] [address] [place] [address] Dr. Brady Sanders Cholesterol.total/C holesterol in HDL [Mass ratio] 5.2 {ratio} Normal [facility] Comment on above: Performed By: #### L JORDON GARRETT, CMP #### [facility] [address] [place] [address] Dr. Brady Sanders HDL NORMAL > or = 60 mg/dl - LO W CARDIOVASCULAR RISK <40 mg/dl - HIGH CARDIOVASCULAR RISK Normal [facility] Comment on above: Performed By: #### L GERRY JORDON, CMP #### [facility] [address] [place] [address] Dr. Brady Sanders LDL CALC NORMAL SEE BELOW Normal [facility] Comment on above: Result Comment: <100 mg/dl OPTIMAL 100 - 129 mg/dl NEAR OR ABOVE OPTIMAL 130 - 159 mg/dl BORDERLINE HIGH 160 - 189 mg/dl HIGH >190 mg/dl VERY HIGH Performed By: #### L JORDON GARRETT, CMP #### [facility] [address] [place] [address] Dr. Brady Sanders Triglyceride [Mass/Vol] 164 mg/dL Critically high <=150 [facility] Comment on above: Performed By: #### L IPA, JORDON, CMP #### [facility] [address] [place] [address] Dr. Brady Sanders VLDL CALC 32.8 mg/dL Normal [facility] Comment on above: Performed By: #### L IPA, JORDON, CMP #### [facility] [address] [address] [address] Brady Sanders MICROALBUMIN, RAND URon 02-21 mALB <1.3 Normal <=30.0 [facility] Comment on above: Performed By: #### L IPA JORDON, CMP #### [facility] [address] [place] [address] Dr. Brady Sanders PROF 14(COMP METB)on 03-07- 022 Albumin [Mass/Vol] 3.8 g/dL Normal 3.4-5.0 [facility] Comment on above: Performed By: #### L GERRY JORDON, CMP #### [facility] [address] [place] [address] Dr. Brady Sanders Albumin/Globulin [Mass ratio] 1.0 {ratio} Normal [facility] Comment on above: Performed By: #### L GERRY JORDON, CMP #### [facility] [address] [place] [address] Dr. Brady Sanders ALP [Catalytic activity/Vol] 102 U/L Normal 46-116 [facility] Comment on above: Performed By: #### L IPA JORDON, CMP #### [facility] [address] [place] [address] Dr. Brady Sanders ALT [Catalytic activity/Vol] 41 U/L Normal 16-63 [facility] Comment on above: Performed By: #### L IPA JORDON, CMP #### [facility] [address] [place] [address] Dr. Brady Sanders Anion gap [Moles/Vol] 14.7 mmol/L Normal [facility] Comment on above: Performed By: #### L JORDON GARRETT, CMP #### [facility] [address] [place] [address] Dr. Brady Sanders AST [Catalytic activity/Vol] 24 U/L Normal 15-37 [facility] Comment on above: Performed By: #### L IPA JORDON, CMP #### [facility] [address] [place] [address] Dr. Brady Sanders Bilirubin [Mass/Vol] 0.4 mg/dL Normal 0.2-1.0 [facility] Comment on above: Performed By: #### L GERRY JORDON, CMP #### [facility] [address] [place] [address] Dr. Brady Sanders Calcium [Mass/Vol] 8.8 mg/dL Normal 8.5-10.1 [facility] Comment on above: Performed By: #### L GERRY JORDON, CMP #### [facility] [address] [place] [address] Dr. Brady Sanders Chloride [Moles/Vol] 99 mmol/L Normal 98-107 [facility] Comment on above: Performed By: #### L GERRY JORDON, CMP #### [facility] [address] [place] [address] Dr. Brayd Sanders CO2 [Moles/Vol] 26.8 mmol/L Normal 21.0-32.0 [facility] Comment on above: Performed By: #### L GERRY JORDON, CMP #### [facility] [address] [place] [address] Dr. Brady Sanders Creatinine [Mass/Vol] 1.00 mg/dL Normal 0.70-1.30 [facility] Comment on above: Performed By: #### L IPA JORDON, CMP #### [facility] [address] [place] [address] Dr. Brady Sanders EGFR-AF SAO TOMEAN >60 Normal >=60 [facility] Comment on above: Performed By: #### L IPA JORDON, CMP #### [facility] [address] [place] [address] Dr. Brady Sanders EGFR-NON AF SAO TOMEAN >60 Normal >=60 [facility] Comment on above: Performed By: #### L JORDON GARRETT, CMP #### [facility] [address] [place] [address] Dr. Brady Sanders Globulin (S) [Mass/Vol] 3.7 g/dL Normal [facility] Comment on above: Performed By: #### L JORDON GARRETT, CMP #### [facility] [address] [place] [address] Dr. Brady Sanders Glucose [Mass/Vol] 317 mg/dL Critically high 74-106 T [facility] Comment on above: Performed By: #### L JORDON GARRETT, CMP #### [facility] [address] [place] [address] Dr. Brady Sanders Potassium [Moles/Vol] 3.5 mmol/L Normal 3.5-5.1 [facility] Comment on above: Performed By: #### L JORDON GARRETT, CMP #### [facility] [address] [place] [address] Dr. Brady Sanders Protein [Mass/Vol] 7.5 g/dL Normal 6.4-8.2 [facility] Comment on above: Performed By: #### L JORDON GARRETT, CMP #### [facility] [address] [place] [address] Dr. Brady Sanders Sodium [Moles/Vol] 137 mmol/L Normal 136-145 [facility] Comment on above: Performed By: #### L JORDON GARRETT, CMP #### [facility] [address] [place] [address] Dr. Brady Sanders Urea nitrogen [Mass/Vol] 11.0 mg/dL Normal 7.0-18.0 [facility] Comment on above: Performed By: #### L JORDON GARRETT, CMP #### [facility] [address] [place] [address] Dr. Brady Sanders Urea nitrogen/Creatinine [Mass ratio] 11.0 mg/mg Normal [facility] Comment on above: Performed By: #### L JORDON GARRETT, CMP #### [facility] [address] [address] [address] Brady Sanders Urinalysis - AUTOMATEDon Appearance (U) clear [employer] Other Bilirubin Ql (U) Negative [facility] Other Color (U) medium [facility] Other Glucose Ql (U) >1000 [employer] Other Hemoglobin Ql (U) trace [employer] [employer] Other Ketones Ql (U) Negative [employer] Other Leukocyte esterase Test strip Ql (U) trace [facility] Other Nitrite Ql (U) Negative [employer] Other pH (U) 5.5 [pH] [facility] Other Protein Ql (U) Negative [employer] Other Specific gravity (U) [Rel density] 1.015 [facility] Other Urobilinogen (U) [Mass/Vol] 0.2 mg/dL [facility] Other Urinalysis - AUTOMATED [facility] Other Urine Cultureon 10-10-2021 Bacteria identified Cx Nom (U) Reason for Exam Dysuria Urine >100,000 colonies/ml mixed bacterial skin contaminants 2 Days PERFORMED BY: [place] [address] PATHOLOGIST [employer] MANAGEMENT CONSULTING MANAGER TIA CORDOVA M.D. Normal [facility] Comment on above: Performed By: #### C UU #### [address] Bacteria identified Cx Nom (U) [facility] Other Quick Fluon 02-19-2021 FLUAV Ab CF (S) [Titer] Negative [facility] Other FLUBV Ab CF (S) [Titer] Negative [facility] Other Vital Signs Date Time Vital Sign Value Performing Clinician Facility 03-13-2022 18:15-0500 Body height 182.88 cm Mamie Cannon Other [facility] Other 03-13-2022 18:15-0500 Body mass index (BMI) [Ratio] 47.46 kg/m2 Mamie Cannon Other [facility] Other 03-13-2022 18:15-0500 Body temperature 98 [degF] Mamie Cannon Other [facility] Other 03-13-2022 18:15-0500 Body weight 158.76 kg Mamie Cannon Other [facility] Other 03-13-2022 18:15-0500 Respiratory rate 18 /min Mamie Cannon Other [facility] Other 03-13-2022 18:15-0500 SaO2% (BldA) [Mass fraction] 94 % Mamie Cannon Other [facility] Other 10-10-2021 10:30-0400 Body height 182.88 cm Mamie Cannon Other [facility] Other 10-10-2021 10:30-0400 Body mass index (BMI) [Ratio] 46.11 kg/m2 Mamie Cannon Other [facility] Other 10-10-2021 10:30-0400 Body temperature 98.1 [degF] Mamie Sweetmond Other [facility] Other 10-10-2021 10:30-0400 Body weight 154.22 kg Mamie Cannon Other [facility] Other 10-10-2021 10:30-0400 Diastolic blood pressure 95 mm[Hg] Mamie Cannon Other [facility] Other 10-10-2021 10:30-0400 Respiratory rate 20 /min Mamie Cannon Other [facility] Other 10-10-2021 10:30-0400 SaO2% (BldA) [Mass fraction] 98 % Mamie Cannon Other [facility] Other 10-10-2021 10:30-0400 Systolic blood pressure 158 mm[Hg] Mamie Cannon Other [facility] Other 05-10-2021 10:00-0500 Body height 182.88 cm Alexandra Dimas Other [facility] Other 05-10-2021 10:00-0500 Body mass index (BMI) [Ratio] 49.28 kg/m2 Alexandra Dimas Other [facility] Other 05-10-2021 10:00-0500 Body temperature 96.4 [degF] Alexandra Dimas Other [facility] Other 05-10-2021 10:00-0500 Body weight 164.84 kg Alexandra Dimas Other [facility] Other 05-10-2021 10:00-0500 Diastolic blood pressure 84 mm[Hg] Alexandra Dimas Other [facility] Other 05-10-2021 10:00-0500 Respiratory rate 18 /min Alexandra Dimas Other [facility] Other 05-10-2021 10:00-0500 SaO2% (BldA) [Mass fraction] 96 % Alexandra Dimas Other [facility] Other 05-10-2021 10:00-0500 Systolic blood pressure 147 mm[Hg] Alexandra Dimas Other [facility] Other 02-19-2021 10:00-0500 Body height 182.88 cm Alexandra Ginty Other [facility] Other 02-19-2021 10:00-0500 Body mass index (BMI) [Ratio] 48.82 kg/m2 Alexandra Ginty Other [facility] Other 02-19-2021 10:00-0500 Body temperature 96.4 [degF] Alexandra Ginty Other [facility] Other 02-19-2021 10:00-0500 Body weight 163.3 kg Alexandra Ginty Other [facility] Other 02-19-2021 10:00-0500 SaO2% (BldA) [Mass fraction] 95 % Alexandra Ginty Other [facility] Other Encounters Encounter Date Encounter Type Care Provider Facility Start: 06-05-2023 End: 06-05-2023 ambulatory SHAIKH ALIZE Not Available Start: 07-25-2022 End: 07-25-[address] GILBERT Rodriguez Facility:[facility] Start: 07-24-2022 End: 07-25-2022 ambulatory SHAIKH Kyara HERRMANN Facility:[facility] Start: 07-11-2022 End: 07-12-2022 ambulatory SHAIKH Kyara HERRMANN Facility:[facility] Start: 06-03-2022 End: 06-04-2022 ambulatory SHAIKH Kyara HERRMANN Facility:[facility] Start: 03-13-2022 End: 03-13-2022 ambulatory Mamie Sweetmond Other [facility] Other Start: 03-13-2022 Office outpatient vi sit 15 minutes Mamie Kassandra [facility] Start: 03-07-2022 End: 03-08-2022 ambulatory SHAIKH Kyara HERRMANN Facility:[facility] Start: 10-10-2021 End: 10-10-2021 ambulatory Mamie Kassandra Other [facility] Other Start: 10-10-2021 Office outpatient vi sit 15 minutes Mamie Kassandra [facility] Start: 10-10-2021 End: 10-10-2021 Departed Referred [employer] REPAIRER-C Mamie Cannon Work Phone: [facility] [place] Start: 05-10-2021 End: 05-10-2021 ambulatory Alexandra Dimas Other [facility] Other Start: 05-10-2021 Office outpatient vi sit 15 minutes Alexandra Wing [facility] Start: 02-19-2021 End: 02-19-2021 ambulatory Alexandra Ginty Other [facility] Other Start: 02-19-2021 Office outpatient vi sit 15 minutes Alexandra Ginty [facility] Plan of Treatment Date Care Activity Detail Author Bacteria identified in Urine by Culture [facility] Payers Date Payer Category Payer Unknown [id number] [id number] [id number] 1975 Unknown [id number] 2.16.84 [id number] 1975 Unknown [id number] 2.16.84 [id number] 1975 Unknown [id number] 2.16.84 [id number] 1975 Unknown [id number] 2.16.84 [id number] 1975 Unknown [id number] 2.16.84 [id number] 1959 Unknown [id number] Self-pay Self Pay [id number] Unknown Susan BC/BS [id number] Social History Date Type Detail Facility Unknown if ever smoked [facility] Other Sex Assigned At Sex Assigned At Bir th [facility] Other Start: 1975 Sex Assigned At Male F [facility] Evaluation note 03-13-2022 Note Date & Type Note Facility 03-13-2022 Evaluation note Encounter Date Diagnosis Assessment Notes Feb, Contact with and (suspected) exposure to other viral communicable diseases (ICD-10 - Z20.828) Feb, COVID-19 (ICD-10 - U07.1) Discharge Instructions for COVID-19 (Suspected or Confirmed ) material was printed Drink plenty fluids, get plenty of rest. Take Tylenol or Motrin as needed for aches pains or fevers. Continue home medications as prescribed. You must quarantine for 5 days due to your COVID diagnosis. Follow-up with your family physician if no improvement in 2 to 3 days. [facility] Other Evaluation note 10-10-2021 Note Date & Type Note Facility 10-10-2021 Evaluation note Encounter Date Diagnosis Assessment Notes Sep, Dysuria (ICD-10 - R30.0) Sep, Urinary tract infection without hematuria, site unspecified (ICD-10 - N39.0) Urinary tract infection (UTI) home care material was printed Drink plenty fluids, get plenty of rest. Take the cephalexin as prescribed until gone. Follow-up with your family physician for recheck next week, call for an appointment to be seen. Go to the ER for worsening symptoms or concern [facility] Other Evaluation note 05-10-2021 Note Date & Type Note Facility 05-10-2021 Evaluation note Encounter Date Diagnosis Assessment Notes Apr, Paronychia of great toe, right (ICD-10 - L03.031) Discussed diagnosis with patient. Decision was made not to I&D today, area of swelling was not fluctuant, did not appear to have pus or drainage. Keep area clean and dry. Encouraged warm Epsom salt soaks four times a day with warm water and warm compresses.Use rx of Mupirocin ointment as directed. Keep skin and nail moisturized, good to use Vaseline. May use Tylenol or Motrin as needed for discomfort. Follow up with PCP in 3-4 days if symptoms do not improve. Immediate eval if area increases in swelling, redness, warmth, red streaking, purulent drainage, fevers or any other new or concerning symptoms. Patient verbalizes understanding and is agreeable at this time Apr, Other Paronychia home care material was printed [facility] Other Evaluation note 02-19-2021 Note Date & Type Note Facility 02-19-2021 Evaluation note Encounter Date Diagnosis Assessment Notes Jan, Contact with and (suspected) exposure to other viral communicable diseases (ICD-10 - Z20.828) Jan, COVID-19 (ICD-10 - U07.1) Rapid COVID test performed today was positive. Influenza A/B negative. Instructed patient to isolate per CDC guidelines for 10 days from symptom onset. May return to work/activities outside home after isolation period as long as symptoms are improving and has been afebrile for 24 hours without use of antipyretic. Advised patient that health dept. will be in contact as results are reported to them. Advised patient that treatment of COVID is with viral supportive care OTC cold medications such as Cordicidin HBP, Tylenol/Motrin as needed for body aches/fever. Increase fluids and rest. Encouraged use of cool mist humidifier. Follow-up with PCP to advise of positive result and further management need. Immediate eval for SOB, difficulty, chest pain, fevers that do not break with antipyretic or any other concerning symptoms as reviewed on patient education handout. Patient verbalizes understanding and is agreeable to treatment plan. Patient left in stable condition Jan, Other Additional time spent conducting pre-visit phone call, screening for symptoms, instructions on social distancing, application and removal of PPE, and cleaning of examination room, equipment and supplies was preformed. Patient education given for testing methodology and results. Patient care instructions given in writting by [facility] document [facility] Other Evaluation note Note Date & Type Note Facility Evaluation note No assessment information availa [facility] Work Phone: History general Narrative - Reported Note Date & Type Note Facility History general Narrative - Reported Type Medical History HTN Medical History Pre diabetic Medical History Anger issues Medical History Hyperlipidemia [facility] Other Chief Complaint and Reason for Visit Chief Complaint Dysuria Advance Directives No Advanced Directives Records Found Advance Directive Response Recorded Date/ Time Advance Directives No October 10 8:59pm Summary Purpose Family History No Family History Records FoundNo Family History Records FoundNo Family History Records Found Additional Source Comments REASON FOR VISIT (unrecogniz ed section and content) #1 RED HYUNDAI, CONGESTION, COUGH, SORE THROAT, FATIGUE, FEVERRIGHT GREAT TOENAIL POSS INFECTIONDYSURIA, PAIN/BURNING IN GROINDYSURIA, PAIN/BURNING IN GROINDYSURIA, PAIN/BURNING IN GROINCOUGH, CONGESTION Care Teams (unrecognized sec tion and content) Team Status: Inactive Member Role Status Dates JUSTO Nelson Attending Provider Active Goals (unrecognized section and content) Goals may be documented in a n alternate section (unrecognized sect ion and content) No Status Records FoundNo Status Records FoundNo Status Records Found INFORMATION SOURCE (unrecogn ized section and content) DATE CREATED AUTHOR 10/18/2021 [facility] DATE CREATED AUTHOR AUTHOR'S ORGANIZ ATION 08/01/2022 [facility] DATE CREATED AUTHOR AUTHOR'S ORGANJAVIER ATION 06/06/2023 [facility] FOR RECORDS PERTAINING TO PATIENTS WHO ARE OR HAVE BEEN ENROLLED IN A CHEMICAL DEPENDENCY/SUBSTANCEABUSE PROGRAM, SOME INFORMATION MAY BE OMITTED. This clinical summary was aggregated from multiple sources. Caution should be exercised in using it in the provision of clinical care. This summary normalizes information from multiple sources, and as a consequence, information in this document may materially change the coding, format and clinical context of patient data. In addition, data may be omitted in some cases. CLINICAL DECISIONS SHOULD BE BASED ON THE PRIMARY CLINICAL RECORDS. [facility]. provides no warranty or guarantee of the accuracy or completeness of information in this document.
--- NOTE | 2023-06-16 12:25 | CT_ITS ---
[address] [address] Patient Name: KEVON BRENNER MRN: [id number] date: 1975 Sex: M Assigned Patient Location: ER Current Patient Location: Accession/Order Number: [id number] Exam Date: 06/16/2023 12:18 Report Date: 06/16/2023 12:50 At the request of: FATOU LEROY Procedure: CT lumbar spine wo con EXAMINATION: CT lumbar spine wo con HISTORY: Pain, abnormal x-rays COMPARISON: No relevant comparison available. TECHNIQUE: Axial, Coronal, and Sagittal CT images were created without I.V. contrast material. Dose reduction techniques were achieved by using automated exposure control and/or adjustment of mA and/or kV according to patient size and/or use of iterative reconstruction technique. FINDINGS: PARASPINAL AREA: Normal with no visible mass. BONES: Normal alignment with no acute fracture or spondylolisthesis. Mild degenerative spondylosis and mild to moderate facet osteoarthropathy DISC LEVELS: 12-L1: Disc space narrowing. No disc bulge or herniation. No central or foraminal stenosis L1-L2: No disc bulge or herniation. No central or foraminal stenosis L2-L3: Mild posterior disc/osteophyte complex. No central or foraminal stenosis L3-L4: Disc space narrowing. Broad-based disc herniation of the protrusion type with calcification extending posterior to 4.6 mm, sagittal image 25. Central canal stenosis of the central canal narrowed down to 7 mm in AP dimension, sagittal image 25. No foraminal stenosis. L4-L5: Broad-based disc herniation the protrusion type with calcification, extending posteriorly up to 5 mm, sagittal image 25, narrowing the central canal to 8.7 mm. Mild bilateral foraminal stenosis L5-S1: Disc space narrowing. Broad-based posterior disc herniation the protrusion type with calcifications extending posteriorly up to 5.3 mm. No central canal or right foraminal stenosis. Mild narrowing of the left neural foramen CT/CT lumbar spine wo con IMPRESSION: Moderate degenerative discogenic changes with calcification with central and foraminal stenosis at several levels as detailed above Electronically authenticated by: BAO OSPINA Date: 06/16/2023 12:50
[2023-06-16] MEDS: KETOROLAC TROMETHAMINE 60 MG/2 ML VIAL IM (13:40)
[2023-06-16] MEDS: ORPHENADRINE 60 MG/ 2 ML VIAL IM (13:41)
[2023-06-16] MEDS: MORPHINE SULFATE 4 MG/ML VIAL 10 MG IM (15:32)
== END 2023-06-16 15:45 | disposition home or self-care (01) ==
PROVIDERS: Emergency Provider Emergency Medicine; PCP Internal Medicine
DX: M47.816 Spondylosis without myelopathy or radiculopathy, lumbar region (principal); Z79.899 Other long term (current) drug therapy; Z79.85 Long-term (current) use of injectable non-insulin antidiabetic drugs
CPT/HCPCS: 72131; 96372; 99284

== ENCOUNTER 2023-07-03 08:29 | Outpatient (OUT) | payer OTHER, SELFPAY ==
--- NOTE | 2023-07-03 08:43 | MR_ITS ---
[facility] [id number] Patient Name: KEVON BRENNER MRN: [id number] date: 1975 Sex: M Assigned Patient Location: [facility] Current Patient Location: [facility] Accession/Order Number: [id number] Exam Date: 07/03/2023 09:10 Report Date: 07/03/2023 10:17 At the request of: SHAIKH ALIZE Procedure: MR lumbar spine wo con MR lumbar spine wo con, 07/03/2023 9:10 AM EDT INDICATION: Acute Bilateral Low Back Pain Right Sciatica M54.41 COMPARISON: There is no appropriate prior study for comparison. TECHNIQUE: Multiplanar, multisequential MRI images of lumbar spine were obtained without contrast. FINDINGS: For dictation purposes, the lowest complete disc space in the lumbar spine considered as L5-S1. There is normal physiologic lumbar lordosis. The vertebral height is preserved. The conus medullaris is at the level of L1. No signal abnormality within the visualized spinal cord is noted. Level of T12-L1 is unremarkable. No neural foraminal narrowing or canal stenoses at the level of L1-L2 and L2-L3 is noted. At the level of L3-4, there are disc bulge with superimposed right lateral extrusion with inferior migration with moderate bilateral neuroforaminal narrowing and moderate to severe canal stenosis. The right L4 nerve root is in close contact with the disc extrusion in the lateral recess. At the level of L4-5, there are disc bulge with moderate bilateral neuroforaminal narrowing and mild canal stenosis. At the level of L5-S1, there are disc bulge with central annular fissure with mild right and moderate left neuroforaminal narrowing and no canal stenosis. The left S1 nerve root is in close contact with the disc bulge in the lateral recess. The paraspinal muscles are unremarkable. MR/MR lumbar spine wo con IMPRESSION: Mild to moderate degenerative changes of lumbar spine in particular at L3-L4 and L5-S1. Electronically authenticated by: NADER DE LA CRUZ Date: 07/03/2023 10:17
--- NOTE | 2023-07-03 08:43 | XR_ITS ---
[facility] [id number] Patient Name: KEVON BRENNER MRN: [id number] date: 1975 Sex: M Assigned Patient Location: [facility] Current Patient Location: [facility] Accession/Order Number: [id number] Exam Date: 07/03/2023 08:50 Report Date: 07/03/2023 09:10 At the request of: SHAIKH ALIZE Procedure: XR foreign body eye EXAMINATION: XR foreign body eye HISTORY: Foreign Body Eye COMPARISON: No relevant comparison available. FINDINGS: ORBITS: Negative for a metallic foreign body. OTHER: Dense calcification along superior margin of frontal sinuses only frontal view; possible meningeal calcification. XR/XR foreign body eye IMPRESSION: 1. No metallic foreign body within the orbits. 2. Nonspecific calcification; possibly an intracranial meningeal callus calcifications. Consider CT or MRI imaging of the head for further evaluation. Electronically authenticated by: MIKAYLA COVINGTON Date: 07/03/2023 09:10
--- OUTSIDE RECORDS SUMMARY | 2023-07-03 08:48 | XMS_ITS | CCD ---
Author Organization [facility] Care Team Providers Care Rn Medication Name Role Phone Alexandra Gill Unavailable DimasAlexandra martínez Unavailable JUSTO Cannon Attending Provider Mamie Cannon Unavailable FAWWAD, YIN H Admitting Unavailable FAWWAD, YIN H Attending Unavailable FAWWAD, YIN H Consulting Unavailable FAWWAD, YIN H Primary Care Unavailable JOSE ., DR HUNT Admitting Unavailable JOSE ., DR HUNT Attending Unavailable HAY ., DR HUNT Consulting Unavailable FAWWAD, YIN H Primary Care Unavailable KAVIN BRIONES Consulting Unavailable FAWWAD, YIN H Admitting Unavailable FAWWAD, YIN H Attending Unavailable FAWWAD, YIN H Consulting Unavailable FAWWAD, YIN H Primary Care Unavailable FAWWAD, YIN H Admitting Unavailable MIKYALA COVINGTON Consulting Unavailable FAWWAD, YIN H Attending Unavailable FAWWAD, YIN H Primary Care Unavailable FAWWAD, YIN H Consulting Unavailable FAWWAD, YIN H Primary Care Unavailable KIM JARRETT Consulting Unavailable FAWWAD, YIN H Admitting Unavailable FAWWAD, IYN H Attending Unavailable FAWWAD, YIN H Consulting Unavailable MIKAYLA WESTBROOK Referring Unavailable FAWWAD, YIN Primary Care Unavailable FAWWAD, YIN Attending Unavailable FAWWAD, YIN Attending Unavailable Medications Current Medications Medication Drug Class(es) Dates Sig (Normalized) Sig (Original) [id number] 200 actuat albuterol 0.09 mg/actuat metered dose [...] capsule (1 source) Non-narcotic Antitussive Start: 12-05-19 take 1 capsule by mouth three times [...] vomiting, unspecified] Episodic Other aftercare (1 source) [facility] (current) use of aspirin; Translations: [HALFWAY CURRENT USE OF ASPIRIN] Onset: 07-29-2022 Episodic Other aftercare (1 source) 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 Brady Sanders CBC AUTO DIFFon 07-25-2022 BASO # 0.0 103/ul Normal 0.0-0.1 [facility] Comment on above: Performed By: #### C BC #### [facility] [address] [place] [address] Dr. Brady Sanders Basophils/100 WBC (Bld) 0.4 % Normal 0.2-2.0 [facility] Comment on above: Performed By: #### C BC #### [facility] [address] [address] [address] Brady Sanders EO # 0.1 103/ul Normal 0.0-0.7 [facility] Comment on above: Performed By: #### C BC #### [facility] [address] [place] [address] Dr. Brady Sanders Eosinophils/100 WBC (Bld) 1.5 % Normal 0.9-7.0 [facility] Comment on above: Performed By: #### C BC #### [facility] [address] [place] [address] Dr. Brady Sanders Erythrocyte distribution width (RBC) [Ratio] 13.2 % Normal 11.0-15.0 [facility] Comment on above: Performed By: #### C BC #### [facility] [address] [place] [address] Dr. Brady Sanders Hematocrit (Bld) [Volume fraction] 41.0 % Critically low 42.0-54.0 [facility] Comment on above: Performed By: #### C BC #### [facility] [address] [place] [address] Dr. Brady Sanders Hemoglobin (Bld) [Mass/Vol] 13.8 g/dL Critically low 14.0-18.0 [facility] Comment on above: Performed By: #### C BC #### [facility] [address] [place] [address] Dr. Brady Sanders IG # 0.03 10e3/ul Normal 0.00-0.03 [facility] Comment on above: Performed By: #### C BC #### [facility] [address] [place] [address] Dr. Brady Sanders IG % 0.4 % Normal 0.0-0.5 [facility] Comment on above: Performed By: #### C BC #### [facility] [address] [place] [address] Dr. Brady Sanders LYMPH # 1.8 103/ul Normal 1.2-3.8 [facility] Comment on above: Performed By: #### C BC #### [facility] [address] [place] [address] Dr. Brady Sanders Lymphocytes/100 WBC (Bld) 21.4 % Normal 20.5-60.0 [facility] Comment on above: Performed By: #### C BC #### [facility] [address] [place] [address] Dr. Brady Sanders MANUAL DIFF REQ NO Normal [facility] Comment on above: Performed By: #### C BC #### [facility] [address] [place] [address] Dr. Brady Sanders MCH (RBC) [Entitic mass] 28.1 pg Normal 25.9-34.0 [facility] Comment on above: Performed By: #### C BC #### [facility] [address] [place] [address] Dr. Brady Sanders MCHC (RBC) [Mass/Vol] 33.7 g/dL Normal 29.9-35.2 [facility] Comment on above: Performed By: #### C BC #### [facility] [address] [address] [address] Brady Sanders MCV (RBC) [Entitic vol] 83.5 fL Normal 80.0-94.0 [facility] Comment on above: Performed By: #### C BC #### [facility] [address] [address] [address] Brady Sanders MONO # 0.5 103/ul Normal 0.3-0.8 [facility] Comment on above: Performed By: #### C BC #### [facility] [address] [address] [address] Brady Sanders Monocytes/100 WBC (Bld) 6.2 % Normal 1.7-12.0 [facility] Comment on above: Performed By: #### C BC #### [facility] [address] [place] [address] Dr. Brady Sanders NEUT # 5.9 103/ul Normal 1.4-6.5 [facility] Comment on above: Performed By: #### C BC #### [facility] [address] [place] [address] Dr. Brady Sanders Neutrophils/100 WBC (Bld) 70.1 % Normal 43.0-75.0 [facility] Comment on above: Performed By: #### C BC #### [facility] [address] [place] [address] Dr. Brady Sanders Platelet mean volume (Bld) [Entitic vol] 9.6 fL Normal 9.5-13.5 [facility] Comment on above: Performed By: #### C BC #### [facility] [address] [place] [address] Dr. Brady Sanders PLT 216 103/ul Normal 150-450 [facility] Comment on above: Performed By: #### C BC #### [facility] [address] [place] [address] Dr. Brady Sanders RBC 4.91 106/ul Normal 4.70-6.10 [facility] Comment on above: Performed By: #### C BC #### [facility] [address] [place] [address] Dr. Brady Sanders WBC 8.4 103/ul Normal 4.0-11.0 [facility] Comment on above: Performed By: #### C BC #### [facility] [address] [place] [address] ABD/PELV W CONon 07-26-[address] ABD/PELV W CON EXAMINATION: CT ABD/PELV [...] KAVIN BRIONES Date: 2022-07-25 10:58 Normal [facility] LIPASEon 07-25-2022 Lipase [Catalytic activity/Vol] 96.0 U/L Normal 73.0-393.0 [facility] Comment on above: Performed By: #### L GERRY, JORDON, CMP #### [facility] [address] [place] [address] Dr. Brady Sanders PROF 14(COMP METB)on 023 Albumin [Mass/Vol] 3.4 g/dL Normal 3.4-5.0 [facility] Comment on above: Performed By: #### L IPA, JORDON, CMP #### [facility] [address] [address] [address] Brady Sanders Albumin/Globulin [Mass ratio] 0.9 {ratio} Normal [facility] Comment on above: Performed By: #### L IPA, JORDON, CMP #### [facility] [address] [address] [address] Brady Sanders ALP [Catalytic activity/Vol] 88 U/L Normal 46-116 [facility] Comment on above: Performed By: #### L IPA, JORDON, CMP #### [facility] [address] [address] [address] Brady Sanders ALT [Catalytic activity/Vol] 27 U/L Normal 16-63 [facility] Comment on above: Performed By: #### L IPA, JORDON, CMP #### [facility] [address] [address] [address] Brady Sanders Anion gap [Moles/Vol] 9.2 mmol/L Normal [facility] Comment on above: Performed By: #### L IPA, JORDON, CMP #### [facility] [address] [address] [address] Brady Sanders AST [Catalytic activity/Vol] 18 U/L Normal 15-37 [facility] Comment on above: Performed By: #### L IPA, JORDON, CMP #### [facility] [address] [address] [address] Brady Sanders Bilirubin [Mass/Vol] 0.4 mg/dL Normal 0.2-1.0 [facility] Comment on above: Performed By: #### L IPA, JORDON, CMP #### [facility] [address] [address] [address] Brady Sanders Calcium [Mass/Vol] 8.5 mg/dL Normal 8.5-10.1 [facility] Comment on above: Performed By: #### L IPA, JORDON, CMP #### [facility] [address] [address] [address] Brady Sanders Chloride [Moles/Vol] 103 mmol/L Normal 98-107 [facility] Comment on above: Performed By: #### L IPA JORDON, CMP #### [facility] [address] [address] [address] Brady Sanders CO2 [Moles/Vol] 31.1 mmol/L Normal 21.0-32.0 [facility] Comment on above: Performed By: #### L IPA JORDON, CMP #### [facility] [address] [address] [address] Brady Sanders Creatinine [Mass/Vol] 0.79 mg/dL Normal 0.70-1.30 [facility] Comment on above: Performed By: #### L IPA JORDON, CMP #### [facility] [address] [address] [address] Brady Sanders EGFR-AF NORTH [place]OREAN >60 Normal >=60 [facility] Comment on above: Performed By: #### L IPA JORDON, CMP #### [facility] [address] [address] [address] Brady Sanders EGFR-NON AF [place]TH [place]OREAN >60 Normal >=60 [facility] Comment on above: Performed By: #### L GERRY JORDON, CMP #### [facility] [address] [address] [address] Brady Sanders Globulin (S) [Mass/Vol] 3.8 g/dL Normal [facility] Comment on above: Performed By: #### L GERRY JORDON, CMP #### [facility] [address] [address] [address] Brady Sanders Glucose [Mass/Vol] 140 mg/dL Critically high 74-106 [facility] Comment on above: Performed By: #### L GERRY JORDON, CMP #### [facility] [address] [address] [address] Brady Sanders Potassium [Moles/Vol] 3.3 mmol/L Critically low 3.5-5.1 [facility] Comment on above: Performed By: #### L IPA JORDON, CMP #### [facility] [address] [address] [address] Brady Sanders Protein [Mass/Vol] 7.2 g/dL Normal 6.4-8.2 [facility] Comment on above: Performed By: #### L JORDON GARRETT, CMP #### [facility] [address] [address] [address] Brady Sanders Sodium [Moles/Vol] 140 mmol/L Normal 136-145 [facility] Comment on above: Performed By: #### L JORDON GARRETT, CMP #### [facility] [address] [address] [address] Brady Sanders Urea nitrogen [Mass/Vol] 10.0 mg/dL Normal 7.0-18.0 [facility] Comment on above: Performed By: #### L JORDON GARRETT, CMP #### [facility] [address] [address] [address] Brady Sanders Urea nitrogen/Creatinine [Mass ratio] 12.7 mg/mg Normal [facility] Comment on above: Performed By: #### L JORDON GARRETT, CMP #### [facility] [address] [place] [address] Dr. Brady Sanders NM HEPATOBILIARY SCAN W EFon 07-24-2022 NM HEPATOBILIARY SCAN W EF HIDA SCAN WITH GALLBLADDER EJECTION FRACTION HISTORY: Abdominal Pain. COMPARISON: Ultrasound 07/11/2022. METHOD: Following IV injection of 5. mCi of [id number] , anterior imaging of the abdomen was [...] KIM JARRETT Date: 2022-07-24 09:14 Normal [facility] US SINGLE QUAD RT UPPERon US SINGLE [...] MIKAYLA COVINGTON Date: 2022-07-11 11:55 Normal [facility] GLYCOHEMOGLOBIN A1Con 2022 ADA RECOMMENDATION SEE BELOW Normal [facility] Comment on above: Result Comment: ADA RECOMMENDED LIMIT 4.0 - 6.0 ADA THERAPEUTIC TARGET < 7.0 ACTION SUGGESTED > 7.0 Performed By: #### A 1C #### [facility] [address] [address] [address] Brady Sanders Glucose [Mass/Vol] 143 mg/dL Normal [facility] Comment on above: Performed By: #### A 1C #### [facility] [address] [address] [address] Brady Sanders HbA1c (Bld) [Mass fraction] 6.6 % Critically high 4.5-6.2 [facility] Comment on above: Performed By: #### A 1C #### [facility] [address] [address] [address] Brady Sanders COVID + FLU Quick Testingon 03-13-2022 SARS-CoV-2 (COVID-19) RNA ADELINA+probe Ql (Unsp spec) Positive [employer] [facility] [employer] Other COVID + FLU Quick Testing Negative [employer] Other CBC AUTO DIFFon 03-07-2022 BASO # 0.0 103/ul Normal 0.0-0.1 [facility] Comment on above: Performed By: #### C BC #### [facility] [address] [place] [address] Dr. Brady Sanders Basophils/100 WBC (Bld) 0.5 % Normal 0.2-2.0 [facility] Comment on above: Performed By: #### C BC #### [facility] [address] [place] [address] Dr. Brady Sanders EO # 0.1 103/ul Normal 0.0-0.7 [facility] Comment on above: Performed By: #### C BC #### [facility] [address] [place] [address] Dr. Brady Sanders Eosinophils/100 WBC (Bld) 1.8 % Normal 0.9-7.0 [facility] Comment on above: Performed By: #### C BC #### [facility] [address] [place] [address] Dr. Brady Sanders Erythrocyte distribution width (RBC) [Ratio] 13.5 % Normal 11.0-15.0 [facility] Comment on above: Performed By: #### C BC #### [facility] [address] [place] [address] Dr. Brady Sanders Hematocrit (Bld) [Volume fraction] 46.5 % Normal 42.0-54.0 [facility] Comment on above: Performed By: #### C BC #### [facility] [address] [place] [address] Dr. Brady Sanders Hemoglobin (Bld) [Mass/Vol] 15.6 g/dL Normal 14.0-18.0 [facility] Comment on above: Performed By: #### C BC #### [facility] [address] [place] [address] Dr. Brady Sanders IG # 0.02 10e3/ul Normal 0.00-0.03 [facility] Comment on above: Performed By: #### C BC #### [facility] [address] [place] [address] Dr. Brady Sanders IG % 0.3 % Normal 0.0-0.5 [facility] Comment on above: Performed By: #### C BC #### [facility] [address] [place] [address] Dr. Brady Sanders LYMPH # 1.8 103/ul Normal 1.2-3.8 [facility] Comment on above: Performed By: #### C BC #### [facility] [address] [place] [address] Dr. Brady Sanders Lymphocytes/100 WBC (Bld) 22.3 % Normal 20.5-60.0 [facility] Comment on above: Performed By: #### C BC #### [facility] [address] [place] [address] Dr. Brady Sanders MANUAL DIFF REQ NO Normal [facility] Comment on above: Performed By: #### C BC #### [facility] [address] [place] [address] Dr. Brady Sanders MCH (RBC) [Entitic mass] 28.0 pg Normal 25.9-34.0 [facility] Comment on above: Performed By: #### C BC #### [facility] [address] [place] [address] Dr. Brady Sanders MCHC (RBC) [Mass/Vol] 33.5 g/dL Normal 29.9-35.2 [facility] Comment on above: Performed By: #### C BC #### [facility] [address] [place] [address] Dr. Brady Sanders MCV (RBC) [Entitic vol] 83.3 fL Normal 80.0-94.0 [facility] Comment on above: Performed By: #### C BC #### [facility] [address] [place] [address] Dr. Brady Sanders MONO # 0.5 103/ul Normal 0.3-0.8 [facility] Comment on above: Performed By: #### C BC #### [facility] [address] [place] [address] Dr. Brady Sanders Monocytes/100 WBC (Bld) 6.1 % Normal 1.7-12.0 [facility] Comment on above: Performed By: #### C BC #### [facility] [address] [place] [address] Dr. Brady Sanders NEUT # 5.4 103/ul Normal 1.4-6.5 [facility] Comment on above: Performed By: #### C BC #### [facility] [address] [address] [address] Brady Sanders Neutrophils/100 WBC (Bld) 69.0 % Normal 43.0-75.0 [facility] Comment on above: Performed By: #### C BC #### [facility] [address] [address] [address] Brady Sanders Platelet mean volume (Bld) [Entitic vol] 10.3 fL Normal 9.5-13.5 [facility] Comment on above: Performed By: #### C BC #### [facility] [address] [address] [address] Brady Sanders PLT 230 103/ul Normal 150-450 [facility] Comment on above: Performed By: #### C BC #### [facility] [address] [address] [address] Brday Sanders RBC 5.58 106/ul Normal 4.70-6.10 [facility] Comment on above: Performed By: #### C BC #### [facility] [address] [address] [address] Brady Sanders WBC 7.9 103/ul Normal 4.0-11.0 [facility] Comment on above: Performed By: #### C BC #### [facility] [address] [place] [address] Dr. Brady Sanders GLYCOHEMOGLOBIN A1Con 2021 ADA RECOMMENDATION SEE BELOW Normal [facility] Comment on above: Result Comment: ADA RECOMMENDED LIMIT 4.0 - 6.0 ADA THERAPEUTIC TARGET < 7.0 ACTION SUGGESTED > 7.0 Performed By: #### A 1C #### [facility] [address] [address] [address] Brady Sanders Glucose [Mass/Vol] 200 mg/dL Normal [facility] Comment on above: Performed By: #### A 1C #### [facility] [address] [address] [address] Brady Sanders HbA1c (Bld) [Mass fraction] 8.6 % Critically high 4.5-6.2 [facility] Comment on above: Performed By: #### A 1C #### [facility] [address] [address] [address] Brady Sanders LIPID PROFILEon 03-07-2022 CHOL-HDL RATIO NORM SEE BELOW Normal [facility] Comment on above: Result Comment: 3.3 - 4.4 LOW RISK 4.4 - 7.1 AVERAGE RISK 7.1 - 11.0 MODERATE RISK >11.0 HIGH RISK Performed By: #### L JORDON GARRETT, CMP #### [facility] [address] [address] [address] Brady Sanders Cholesterol [Mass/Vol] 136 mg/dL Normal <=200 [facility] Comment on above: Performed By: #### L JORDON GARRETT, CMP #### [facility] [address] [address] [address] Brady Sanders Cholesterol in HDL [Mass/Vol] 26 mg/dL Critically low 40-60 [facility] Comment on above: Performed By: #### L JORDON GARRETT, CMP #### [facility] [address] [address] [address] Brady Sanders Cholesterol in LDL [Mass/Vol] 77.2 mg/dL Normal [facility] Comment on above: Performed By: #### L JORDON GARRETT, CMP #### [facility] [address] [address] [address] Brady Sanders Cholesterol.total/C holesterol in HDL [Mass ratio] 5.2 {ratio} Normal [facility] Comment on above: Performed By: #### L JORDON GARRETT, CMP #### [facility] [address] [address] [address] Brady Sanders HDL NORMAL > or = 60 mg/dl - LO W CARDIOVASCULAR RISK <40 mg/dl - HIGH CARDIOVASCULAR RISK Normal [facility] Comment on above: Performed By: #### L JORDON GARRETT, CMP #### [facility] [address] [address] [address] Brady Sanders LDL CALC NORMAL SEE BELOW Normal [facility] Comment on above: Result Comment: <100 mg/dl OPTIMAL 100 - 129 mg/dl NEAR OR ABOVE OPTIMAL 130 - 159 mg/dl BORDERLINE HIGH 160 - 189 mg/dl HIGH >190 mg/dl VERY HIGH Performed By: #### L JORDON GARRETT, CMP #### [facility] [address] [place] [address] Dr. Brady Sanders Triglyceride [Mass/Vol] 164 mg/dL Critically high <=150 [facility] Comment on above: Performed By: #### L JORDON GARRETT, CMP #### [facility] [address] [address] [address] Brady Sanders VLDL CALC 32.8 mg/dL Normal [facility] Comment on above: Performed By: #### L JORDON GARRETT, CMP #### [facility] [address] [place] [address] Dr. Brady Sanders MICROALBUMIN, RAND URon 12- mALB <1.3 Normal <=30.0 [facility] Comment on above: Performed By: #### L JORDON GARRETT, CMP #### [facility] [address] [place] [address] Dr. Brady Sanders PROF 14(COMP METB)on 03-07- 022 Albumin [Mass/Vol] 3.8 g/dL Normal 3.4-5.0 [facility] Comment on above: Performed By: #### L JORDON GARRETT, CMP #### [facility] [address] [place] [address] Dr. Brady Sanders Albumin/Globulin [Mass ratio] 1.0 {ratio} Normal [facility] Comment on above: Performed By: #### L JORDON GARRETT, CMP #### [facility] [address] [place] [address] Dr. Brady Sanders ALP [Catalytic activity/Vol] 102 U/L Normal 46-116 [facility] Comment on above: Performed By: #### L JORDON GARRETT, CMP #### [facility] [address] [place] [address] Dr. Brady Sanders ALT [Catalytic activity/Vol] 41 U/L Normal 16-63 [facility] Comment on above: Performed By: #### L IPA, JORDON, CMP #### [facility] [address] [address] [address] Brady Sanders Anion gap [Moles/Vol] 14.7 mmol/L Normal [facility] Comment on above: Performed By: #### L IPA JORDON, CMP #### [facility] [address] [address] [address] Brady Sanders AST [Catalytic activity/Vol] 24 U/L Normal 15-37 [facility] Comment on above: Performed By: #### L IPA JORDON, CMP #### [facility] [address] [address] [address] Brady Sanders Bilirubin [Mass/Vol] 0.4 mg/dL Normal 0.2-1.0 [facility] Comment on above: Performed By: #### L IPA JORDON, CMP #### [facility] [address] [address] [address] Brady Sanders Calcium [Mass/Vol] 8.8 mg/dL Normal 8.5-10.1 [facility] Comment on above: Performed By: #### L IPA JORDON, CMP #### [facility] [address] [address] [address] Brady Sanders Chloride [Moles/Vol] 99 mmol/L Normal 98-107 [facility] Comment on above: Performed By: #### L IPA JORDON, CMP #### [facility] [address] [address] [address] Brady Sanders CO2 [Moles/Vol] 26.8 mmol/L Normal 21.0-32.0 [facility] Comment on above: Performed By: #### L IPA JORDON, CMP #### [facility] [address] [address] [address] Brady Sanders Creatinine [Mass/Vol] 1.00 mg/dL Normal 0.70-1.30 [facility] Comment on above: Performed By: #### L IPA, JORDON, CMP #### [facility] [address] [address] [address] Brady Sanders EGFR-AF [place]OREAN >60 Normal >=60 [facility] Comment on above: Performed By: #### L IPA JORDON, CMP #### [facility] [address] [address] [address] Brady Sanders EGFR-NON AF [place] >60 Normal >=60 [facility] Comment on above: Performed By: #### L IPA, JORDON, CMP #### [facility] [address] [address] [address] Brady Sanders Globulin (S) [Mass/Vol] 3.7 g/dL Normal [facility] Comment on above: Performed By: #### L IPA JORDON, CMP #### [facility] [address] [address] [address] Brady Sanders Glucose [Mass/Vol] 317 mg/dL Critically high 74-106 [facility] Comment on above: Performed By: #### L IPA JORDON, CMP #### [facility] [address] [address] [address] Brady Sanders Potassium [Moles/Vol] 3.5 mmol/L Normal 3.5-5.1 [facility] Comment on above: Performed By: #### L GERRY JORDON, CMP #### [facility] [address] [address] [address] Brady Sanders Protein [Mass/Vol] 7.5 g/dL Normal 6.4-8.2 [facility] Comment on above: Performed By: #### L IPA JORDON, CMP #### [facility] [address] [address] [address] Brady Sanders Sodium [Moles/Vol] 137 mmol/L Normal 136-145 [facility] Comment on above: Performed By: #### L IPA JORDON, CMP #### [facility] [address] [address] [address] Brady Sanders Urea nitrogen [Mass/Vol] 11.0 mg/dL Normal 7.0-18.0 [facility] Comment on above: Performed By: #### L IPA JORDON, CMP #### [facility] [address] [address] [address] Brady Sanders Urea nitrogen/Creatinine [Mass ratio] 11.0 mg/mg Normal [facility] Comment on above: Performed By: #### L GERRY, JORDON, CMP #### [facility] [address] [address] [address] Brady Sanders Urinalysis - AUTOMATEDon Appearance (U) clear [employer] Other Bilirubin Ql (U) Negative [employer] Other Color (U) medium tellow [facility] Other Glucose Ql (U) >1000 [employer] Other Hemoglobin Ql (U) trace [employer] Other Ketones Ql (U) Negative [employer] Other Leukocyte esterase Test strip Ql (U) trace [employer] [facility] [facility] Other Nitrite Ql (U) Negative [employer] Other pH (U) 5.5 [pH] [facility] [facility] Other Protein Ql (U) Negative [employer] Other Specific gravity (U) [Rel density] 1.015 [facility] Other Urobilinogen (U) [Mass/Vol] 0.2 mg/dL [facility] Other Urinalysis - AUTOMATED [facility] [facility] [facility] Other Urine Cultureon 10-10-2021 Bacteria identified Cx Nom (U) Reason for Exam Dysuria Urine >100,000 colonies/ml mixed bacterial skin contaminants 2 Days PERFORMED BY: [place] [id number] PATHOLOGIST SHE[employer] TIA CORDOVA M.D. Normal [facility] Comment on above: Performed By: #### C UU #### [facility] [address] Bacteria identified Cx Nom (U) [facility] [facility] Other Quick Fluon 02-19-2021 FLUAV Ab CF (S) [Titer] Negative [facility] Other FLUBV Ab CF (S) [Titer] Negative [facility] [facility] Other Vital Signs Date Time Vital Sign Value Performing Clinician Facility 03-13-2022 18:15-0500 Body height 182.88 cm Mamie Sweetmond Other [facility] Other 03-13-2022 18:15-0500 Body mass index (BMI) [Ratio] 47.46 kg/m2 Mamie Sweetmond Other [facility] Other 03-13-2022 18:15-0500 Body temperature 98 [degF] Mamie Cannon Other [facility] Other 03-13-2022 18:15-0500 Body weight 158.76 kg Mamie Cannon Other [facility] Other 03-13-2022 18:15-0500 Respiratory rate 18 /min Mamie Cannon Other [facility] Other 03-13-2022 18:15-0500 SaO2% (BldA) [Mass fraction] 94 % Mamie Sweetmond Other [facility] Other 10-10-2021 10:30-0400 Body height 182.88 cm Mamie Sweetmond Other [facility] Other 10-10-2021 10:30-0400 Body mass index (BMI) [Ratio] 46.11 kg/m2 Mamie Kassandra Other [facility] Other 10-10-2021 10:30-0400 Body temperature 98.1 [degF] Mamie Cannon Other [facility] Other 10-10-2021 10:30-0400 Body weight 154.22 kg Mamie Cannon Other [facility] Other 10-10-2021 10:30-0400 Diastolic blood pressure 95 mm[Hg] Mamie Cannon Other [facility] Other 10-10-2021 10:30-0400 Respiratory rate 20 /min Mamie Cannon Other [facility] Other 10-10-2021 10:30-0400 SaO2% (BldA) [Mass fraction] 98 % Mamie Cannon Other [facility] Other 10-10-2021 10:30-0400 Systolic blood pressure 158 mm[Hg] Mamie Cannon Other [facility] Other 05-10-2021 10:00-0500 Body height 182.88 cm Alexandra Dimas Other [facility] Other 05-10-2021 10:00-0500 Body mass index (BMI) [Ratio] 49.28 kg/m2 Alexandra Dimas Other [facility] Other 05-10-2021 10:00-0500 Body temperature 96.4 [degF] Alexandra Dimas Other [facility] Other 05-10-2021 10:00-0500 Body weight 164.84 kg Alexandra Dimas Other [facility] Other 05-10-2021 10:00-0500 Diastolic blood pressure 84 mm[Hg] Alexandra Dimas Other [facility] Other 05-10-2021 10:00-0500 Respiratory rate 18 /min Alexandra Dimas Other [facility] Other 05-10-2021 10:00-0500 SaO2% (BldA) [Mass fraction] 96 % Alexandra Dimas Other [facility] Other 05-10-2021 10:00-0500 Systolic blood pressure 147 mm[Hg] Alexandra Dimas Other [facility] Other 02-19-2021 10:00-0500 Body height 182.88 cm Alexandra Ginty Other [facility] Other 02-19-2021 10:00-0500 Body mass index (BMI) [Ratio] 48.82 kg/m2 Alexandra Ginty Other [facility] Other 02-19-2021 10:00-0500 Body temperature 96.4 [degF] Alexandra Ginty Other [facility] Other 02-19-2021 10:00-0500 Body weight 163.3 kg Alexandra Ginty Other [facility] Other 02-19-2021 10:00-0500 SaO2% (BldA) [Mass fraction] 95 % Alexandra Ginty Other [facility] Other Encounters Encounter Date Encounter Type Care Provider Facility Start: 06-24-2023 End: 06-24-2023 ambulatory SHAIKH ALIZE Not Available Start: 06-23-2023 ambulatory MIKAYLA [facility] Start: 06-05-2023 End: 06-05-2023 ambulatory SHAIKH ROBBYD Not Available Start: 07-25-2022 End: 07-25-[address] GILBERT GARCIA . Facility:[facility] Start: 07-24-2022 End: 07-25-2022 ambulatory YIN H FAWWAD Facility:[facility] Start: 07-11-2022 End: 07-12-2022 ambulatory YIN H FAWWAD Facility:[facility] Start: 06-03-2022 End: 06-04-2022 ambulatory YIN H FAWWAD Facility:[facility] Start: 03-13-2022 End: 03-13-2022 ambulatory Mamie Cannon Other [facility] Other Start: 03-13-2022 Office outpatient vi sit 15 minutes Mamiehumphrey Cannon [facility] Start: 03-07-2022 End: 03-08-2022 ambulatory YIN H FAWWAD Facility:[facility] Start: 10-10-2021 End: 10-10-2021 ambulatory Mamie Cannon Other [facility] Other Start: 10-10-2021 Office outpatient vi sit 15 minutes Mamie Cannon [facility] Start: 10-10-2021 End: 10-10-2021 Departed Referred MANAGER [facility]ARE[facility] Mamie Cannon Work Phone: [facility] [place] Start: 05-10-2021 End: 05-10-2021 ambulatory Alexandra Dimas Other [facility] Other Start: 05-10-2021 Office outpatient vi sit 15 minutes Alexandra Dimas [facility] Start: 02-19-2021 End: 02-19-2021 ambulatory Alexandra Ginty Other [facility] Other Start: 02-19-2021 Office outpatient vi sit 15 minutes Alexandra Ginty [facility] Plan of Treatment Date Care Activity Detail Author Bacteria identified in Urine by Culture [facility] Payers Date Payer Category Payer Unknown [id number] 2.16.84 [id number] 1975 Unknown [id number] 2.16.84 [id number] 1973 Unknown [id number] 2.16.84 [id number] 1973 Unknown [id number] 2.16.84 [id number] 1973 Unknown [id number] 2.16.84 [id number] 1973 Unknown [id number] 2.16.8 [id number] 1973 Unknown [id number] 2.16.84 [id number] 1973 Unknown [id number] 2.16.84 [id number] 1959 Unknown [id number] 2.16.8 [id number] Self-pay Self Pay [id number] Unknown Susan BC/BS [id number] Social History Date Type Detail Facility Unknown if ever smoked [facility] Other Sex Assigned At Sex Assigned At Bir th [facility] Other Start: 1975 Sex Assigned At Male [facility] Evaluation note 03-13-2022 Note Date & Type [...] no improvement in 2 to 3 days. [facility] Other Evaluation note 10-10-2021 Note Date & [...] the ER for worsening symptoms or concern [facility] Other Evaluation note 05-10-2021 Note Date & [...] Other [place] [facility] care material was printed [facility] Other Evaluation note 02-19-2021 Note Date & [...] Patient care instructions given in writting by [facility] document [facility] Other Evaluation note Note Date & Type Note Facility Evaluation note [facility]: History general Narrative - Reported Note Date & Type Note Facility History general Narrative - Reported Type Medical History HTN Medical History Pre diabetic Medical History Anger issues Medical History Hyperlipidemia [facility] Other Chief Complaint and Reason for Visit [...] Records FoundNo Status Records FoundNo Status Records FoundNo Status Records Found INFORMATION SOURCE (unrecogn ized section and content) DATE CREATED AUTHOR 10/18/2021 [facility] DATE CREATED AUTHOR AUTHOR'S ORGANIZ ATION 08/01/2022 [facility] DATE CREATED AUTHOR AUTHOR'S ORGANIZ ATION 06/23/[address] [facility] DATE CREATED AUTHOR AUTHOR'S ORGANIZ ATION 06/25/2023 [facility] FOR RECORDS PERTAINING TO PATIENTS WHO [...] BE BASED ON THE PRIMARY CLINICAL RECORDS. [facility] [employer] [facility]. provides no warranty or guarantee of the accuracy or completeness of information in this document.
== END 2023-07-03 08:30 | disposition home or self-care (01) ==
LOC: RAD 08:30
PROVIDERS: PCP Internal Medicine; Visit Provider Internal Medicine
DX: M54.41 Lumbago with sciatica, right side (principal); M51.36 Other intervertebral disc degeneration, lumbar region
CPT/HCPCS: 70030; 72148

== ENCOUNTER 2023-07-08 09:06 | Outpatient (OUT) | payer OTHER, SELFPAY ==
--- OUTSIDE RECORDS SUMMARY | 2023-07-08 09:28 | XMS_ITS | CCD ---
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 Brady Sanders CBC AUTO DIFFon 07-25-2022 BASO # 0.0 103/ul Normal 0.0-0.1 [facility] Comment on above: Performed By: #### C BC #### [facility] [address] [place] [address] Dr. Brady Sanders Basophils/100 WBC (Bld) 0.4 % Normal 0.2-2.0 [facility] Comment on above: Performed By: #### C BC #### [facility] [address] [address] [address] Brady Sanders EO # 0.1 103/ul Normal 0.0-0.7 [facility] Comment on above: Performed By: #### C BC #### [facility] [address] [place] [address] Dr. Brady Sanders Eosinophils/100 WBC (Bld) 1.5 % Normal 0.9-7.0 [facility] Comment on above: Performed By: #### C BC #### [facility] [address] [place] [address] Dr. Brady Sanders Erythrocyte distribution width (RBC) [Ratio] 13.2 % Normal 11.0-15.0 [facility] Comment on above: Performed By: #### C BC #### [facility] [address] [place] [address] Dr. Brady Sanders Hematocrit (Bld) [Volume fraction] 41.0 % Critically low 42.0-54.0 [facility] Comment on above: Performed By: #### C BC #### [facility] [address] [place] [address] Dr. Brady Sanders Hemoglobin (Bld) [Mass/Vol] 13.8 g/dL Critically low 14.0-18.0 [facility] Comment on above: Performed By: #### C BC #### [facility] [address] [place] [address] Dr. Brady Sanders IG # 0.03 10e3/ul Normal 0.00-0.03 [facility] Comment on above: Performed By: #### C BC #### [facility] [address] [place] [address] Dr. Brady Sanders IG % 0.4 % Normal 0.0-0.5 [facility] Comment on above: Performed By: #### C BC #### [facility] [address] [place] [address] Dr. Brady Sanders LYMPH # 1.8 103/ul Normal 1.2-3.[address] [facility] Comment on above: Performed By: #### C BC #### [facility] [address] [place] [address] Dr. Brady Sanders Lymphocytes/100 WBC (Bld) 21.4 % Normal 20.5-60.0 [facility] Comment on above: Performed By: #### C BC #### [facility] [address] [place] [address] Dr. Brady Sanders MANUAL DIFF REQ NO Normal [facility] Comment on above: Performed By: #### C BC #### [facility] [address] [place] [address] Dr. Brady Sanders MCH (RBC) [Entitic mass] 28.1 pg Normal 25.9-34.[address] [facility] Comment on above: Performed By: #### C BC #### [facility] [address] [place] [address] Dr. Brady Sanders MCHC (RBC) [Mass/Vol] 33.7 g/dL Normal 29.9-35.[address] [facility] Comment on above: Performed By: #### C BC #### [facility] [address] [address] [address] Brady Sanders MCV (RBC) [Entitic vol] 83.5 fL Normal 80.0-94.0 [facility] Comment on above: Performed By: #### C BC #### [facility] [address] [address] [address] Brady Sanders MONO # 0.5 103/ul Normal 0.3-0.[address] [facility] Comment on above: Performed By: #### C BC #### [facility] [address] [address] [address] Brady Sanders Monocytes/100 WBC (Bld) 6.2 % Normal 1.7-12.0 [facility] Comment on above: Performed By: #### C BC #### [facility] [address] [place] [address] Dr. Brady Sanders NEUT # 5.9 103/ul Normal 1.4-6.5 [facility] Comment on above: Performed By: #### C BC #### [facility] [address] [place] [address] Dr. Brady Sanders Neutrophils/100 WBC (Bld) 70.1 % Normal 43.0-75.0 [facility] Comment on above: Performed By: #### C BC #### [facility] [address] [place] [address] Dr. Brady Sanders Platelet mean volume (Bld) [Entitic vol] 9.6 fL Normal 9.5-13.5 [facility] Comment on above: Performed By: #### C BC #### [facility] [address] [place] [address] Dr. Brady Sanders PLT 216 103/ul Normal 150-[address] [facility] Comment on above: Performed By: #### C BC #### [facility] [address] [place] [address] Dr. Brady Sanders RBC 4.91 106/ul Normal 4.70-6.[address] [facility] Comment on above: Performed By: #### C BC #### [facility] [address] [place] [address] Dr. Brady Sanders WBC 8.4 103/ul Normal 4.0-11.0 [facility] Comment on above: Performed By: #### C BC #### [facility] [address] [place] [address] ABD/PELV W CONon [...] KAVIN BRIONES Date: 2022-07-25 10:[address] [facility] LIPASEon 07-25-2022 Lipase [Catalytic activity/Vol] 96.0 U/L Normal 73.0-393.0 [facility] Comment on above: Performed By: #### L GERRY, JORDON, CMP #### [facility] [address] [place] [address] Dr. Brady Sanders PROF 14(COMP METB)on 023 Albumin [Mass/Vol] 3.4 g/dL Normal 3.4-5.0 [facility] Comment on above: Performed By: #### L IPA, JORDON, CMP #### [facility] [address] [address] [address] Brady Sanders Albumin/Globulin [Mass ratio] 0.9 {ratio} Normal [facility] Comment on above: Performed By: #### L IPA, JORDON, CMP #### [facility] [address] [address] [address] Brady Sanders ALP [Catalytic activity/Vol] 88 U/L Normal 46-116 [facility] Comment on above: Performed By: #### L IPA, JORDON, CMP #### [facility] [address] [address] [address] Brady Sanders ALT [Catalytic activity/Vol] 27 U/L Normal 16-63 [facility] Comment on above: Performed By: #### L IPA, JORDON, CMP #### [facility] [address] [address] [address] Brady Sanders Anion gap [Moles/Vol] 9.2 mmol/L Normal [facility] Comment on above: Performed By: #### L IPA, JORDON, CMP #### [facility] [address] [address] [address] Brady Sanders AST [Catalytic activity/Vol] 18 U/L Normal 15-37 [facility] Comment on above: Performed By: #### L IPA, JORDON, CMP #### [facility] [address] [address] [address] Brady Sanders Bilirubin [Mass/Vol] 0.4 mg/dL Normal 0.2-1.0 [facility] Comment on above: Performed By: #### L IPA, JORDON, CMP #### [facility] [address] [address] [address] Brady Sanders Calcium [Mass/Vol] 8.5 mg/dL Normal 8.5-10.1 [facility] Comment on above: Performed By: #### L IPA, JORDON, CMP #### [facility] [address] [address] [address] Brady Sanders Chloride [Moles/Vol] 103 mmol/L Normal 98-107 [facility] Comment on above: Performed By: #### L IPA JORDON, CMP #### [facility] [address] [address] [address] Brady Sanders CO2 [Moles/Vol] 31.1 mmol/L Normal 21.0-32.0 [facility] Comment on above: Performed By: #### L IPA JORDON, CMP #### [facility] [address] [address] [address] Brady Sanders Creatinine [Mass/Vol] 0.79 mg/dL Normal 0.70-1.30 [facility] Comment on above: Performed By: #### L IPA JORDON, CMP #### [facility] [address] [address] [address] Brady Sanders EGFR-AF NAURUAN >60 Normal >=60 [facility] Comment on above: Performed By: #### L IPA JORDON, CMP #### [facility] [address] [address] [address] Brady Sanders EGFR-NON AF NAURUAN >60 Normal >=60 [facility] Comment on above: Performed By: #### L GERRY JORDON, CMP #### [facility] [address] [address] [address] Brady Sanders Globulin (S) [Mass/Vol] 3.8 g/dL Normal [facility] Comment on above: Performed By: #### L GERRY JORDON, CMP #### [facility] [address] [address] [address] Brady Sanders Glucose [Mass/Vol] 140 mg/dL Critically high 74-106 [facility] Comment on above: Performed By: #### L GERRY JORDON, CMP #### [facility] [address] [address] [address] Brady Sanders Potassium [Moles/Vol] 3.3 mmol/L Critically low 3.5-5.1 [facility] Comment on above: Performed By: #### L IPA JORDON, CMP #### [facility] [address] [address] [address] Brady Sanders Protein [Mass/Vol] 7.2 g/dL Normal 6.4-8.2 [facility] Comment on above: Performed By: #### L JORDON GARRETT, CMP #### [facility] [address] [address] [address] Brady Sanders Sodium [Moles/Vol] 140 mmol/L Normal 136-145 [facility] Comment on above: Performed By: #### L JORDON GARRETT, CMP #### [facility] [address] [address] [address] Brady Sanders Urea nitrogen [Mass/Vol] 10.0 mg/dL Normal 7.0-18.0 [facility] Comment on above: Performed By: #### L JORDON GARRETT, CMP #### [facility] [address] [address] [address] Brady Sanders Urea nitrogen/Creatinine [Mass ratio] 12.7 mg/mg Normal [facility] Comment on above: Performed By: #### L JORDON GARRETT, CMP #### [facility] [address] [place] [address] Dr. Brady Sanders NM HEPATOBILIARY SCAN W EFon 07-24-2022 NM HEPATOBILIARY SCAN W EF HIDA SCAN WITH GALLBLADDER EJECTION FRACTION HISTORY: Abdominal Pain. COMPARISON: Ultrasound 07/11/2022. METHOD: Following IV injection of 5. mCi of [id number] , anterior imaging of the abdomen was [...] KIM JARRETT Date: 2022-07-24 09:[address] [facility] US SINGLE QUAD RT UPPERon US [...] MIKAYLA COVINGTON Date: 2022-07-11 11:[address] [facility] GLYCOHEMOGLOBIN A1Con 2022 ADA RECOMMENDATION SEE BELOW Normal [facility] Comment on above: Result Comment: ADA RECOMMENDED LIMIT 4.0 - 6.0 ADA THERAPEUTIC TARGET < 7.0 ACTION SUGGESTED > 7.0 Performed By: #### A 1C #### [facility] [address] [address] [address] Brady Sanders Glucose [Mass/Vol] 143 mg/dL Normal [facility] Comment on above: Performed By: #### A 1C #### [facility] [address] [address] [address] Brady Sanders HbA1c (Bld) [Mass fraction] 6.6 % Critically high 4.5-6.2 [facility] Comment on above: Performed By: #### A 1C #### [facility] [address] [address] [address] Brady Sanders COVID + FLU Quick Testingon 03-13-2022 SARS-CoV-2 (COVID-19) RNA ADELINA+probe Ql (Unsp spec) Positive [facility] [place] Other COVID + FLU Quick Testing Negative [employer] Other CBC AUTO DIFFon 03-07-2022 BASO # 0.0 103/ul Normal 0.0-0.1 [facility] Comment on above: Performed By: #### C BC #### [facility] [address] [place] [address] Dr. Brady Sanders Basophils/100 WBC (Bld) 0.5 % Normal 0.2-2.0 [facility] Comment on above: Performed By: #### C BC #### [facility] [address] [place] [address] Dr. Brady Sanders EO # 0.1 103/ul Normal 0.0-0.7 [facility] Comment on above: Performed By: #### C BC #### [facility] [address] [place] [address] Dr. Brady Sanders Eosinophils/100 WBC (Bld) 1.8 % Normal 0.9-7.0 [facility] Comment on above: Performed By: #### C BC #### [facility] [address] [place] [address] Dr. Brady Sanders Erythrocyte distribution width (RBC) [Ratio] 13.5 % Normal 11.0-15.0 [facility] Comment on above: Performed By: #### C BC #### [facility] [address] [place] [address] Dr. Brady Sanders Hematocrit (Bld) [Volume fraction] 46.5 % Normal 42.0-54.0 [facility] Comment on above: Performed By: #### C BC #### [facility] [address] [place] [address] Dr. Brady Sanders Hemoglobin (Bld) [Mass/Vol] 15.6 g/dL Normal 14.0-18.0 [facility] Comment on above: Performed By: #### C BC #### [facility] [address] [place] [address] Dr. Brady Sanders IG # 0.02 10e3/ul Normal 0.00-0.[address] [facility] Comment on above: Performed By: #### C BC #### [facility] [address] [place] [address] Dr. Brady Sanders IG % 0.3 % Normal 0.0-0.[address] [facility] Comment on above: Performed By: #### C BC #### [facility] [address] [place] [address] Dr. Brady Sanders LYMPH # 1.8 103/ul Normal 1.2-3.8 [facility] Comment on above: Performed By: #### C BC #### [facility] [address] [place] [address] Dr. Brady Sanders Lymphocytes/100 WBC (Bld) 22.3 % Normal 20.5-60.0 [facility] Comment on above: Performed By: #### C BC #### [facility] [address] [place] [address] Dr. Brady Sanders MANUAL DIFF REQ NO Normal [facility] Comment on above: Performed By: #### C BC #### [facility] [address] [place] [address] Dr. Brady Sanders MCH (RBC) [Entitic mass] 28.0 pg Normal 25.9-34.0 [facility] Comment on above: Performed By: #### C BC #### [facility] [address] [place] [address] Dr. Brady Sanders MCHC (RBC) [Mass/Vol] 33.5 g/dL Normal 29.9-35.2 [facility] Comment on above: Performed By: #### C BC #### [facility] [address] [place] [address] Dr. Brady Sanders MCV (RBC) [Entitic vol] 83.3 fL Normal 80.0-94.0 [facility] Comment on above: Performed By: #### C BC #### [facility] [address] [place] [address] Dr. Brady Sanders MONO # 0.5 103/ul Normal 0.3-0.8 [facility] Comment on above: Performed By: #### C BC #### [facility] [address] [place] [address] Dr. Brady Sanders Monocytes/100 WBC (Bld) 6.1 % Normal 1.7-12.0 [facility] Comment on above: Performed By: #### C BC #### [facility] [address] [place] [address] Dr. Brady Sanders NEUT # 5.4 103/ul Normal 1.4-6.5 [facility] Comment on above: Performed By: #### C BC #### [facility] [address] [address] [address] Brady Sanders Neutrophils/100 WBC (Bld) 69.0 % Normal 43.0-75.0 [facility] Comment on above: Performed By: #### C BC #### [facility] [address] [address] [address] Brady Sanders Platelet mean volume (Bld) [Entitic vol] 10.3 fL Normal 9.5-13.5 [facility] Comment on above: Performed By: #### C BC #### [facility] [address] [address] [address] Brady Sanders PLT 230 103/ul Normal 150-450 [facility] Comment on above: Performed By: #### C BC #### [facility] [address] [address] [address] Brady Sanders RBC 5.58 106/ul Normal 4.70-6.10 [facility] Comment on above: Performed By: #### C BC #### [facility] [address] [address] [address] Brady Sanders WBC 7.9 103/ul Normal 4.0-11.0 [facility] Comment on above: Performed By: #### C BC #### [facility] [address] [place] [address] Dr. Brady Sanders GLYCOHEMOGLOBIN A1Con 2021 ADA RECOMMENDATION SEE BELOW Normal [facility] Comment on above: Result Comment: ADA RECOMMENDED LIMIT 4.0 - 6.0 ADA THERAPEUTIC TARGET < 7.0 ACTION SUGGESTED > 7.0 Performed By: #### A 1C #### [facility] [address] [address] [address] Brady Sanders Glucose [Mass/Vol] 200 mg/dL Normal [facility] Comment on above: Performed By: #### A 1C #### [facility] [address] [address] [address] Brady Sanders HbA1c (Bld) [Mass fraction] 8.6 % Critically high 4.5-6.2 [facility] Comment on above: Performed By: #### A 1C #### [facility] [address] [address] [address] Brady Sanders LIPID PROFILEon 03-07-2022 CHOL-HDL RATIO NORM SEE BELOW Normal [facility] Comment on above: Result Comment: 3.3 - 4.4 LOW RISK 4.4 - 7.1 AVERAGE RISK 7.1 - 11.0 MODERATE RISK >11.0 HIGH RISK Performed By: #### L JORDON GARRETT, CMP #### [facility] [address] [address] [address] Brady Sanders Cholesterol [Mass/Vol] 136 mg/dL Normal <=200 [facility] Comment on above: Performed By: #### L JORDON GARRETT, CMP #### [facility] [address] [address] [address] Brady Sanders Cholesterol in HDL [Mass/Vol] 26 mg/dL Critically low 40-60 [facility] Comment on above: Performed By: #### L JORDON GARRETT, CMP #### [facility] [address] [address] [address] Brady Sanders Cholesterol in LDL [Mass/Vol] 77.2 mg/dL Normal [facility] Comment on above: Performed By: #### L JORDON GARRETT, CMP #### [facility] [address] [address] [address] Brady Sanders Cholesterol.total/C holesterol in HDL [Mass ratio] 5.2 {ratio} Normal [facility] Comment on above: Performed By: #### L JORDON GARRETT, CMP #### [facility] [address] [address] [address] Brady Sanders HDL NORMAL > or = 60 mg/dl - LO W CARDIOVASCULAR RISK <40 mg/dl - HIGH CARDIOVASCULAR RISK Normal [facility] Comment on above: Performed By: #### L JORDON GARRETT, CMP #### [facility] [address] [address] [address] Brady Sanders LDL CALC NORMAL SEE BELOW Normal [facility] Comment on above: Result Comment: <100 mg/dl OPTIMAL 100 - 129 mg/dl NEAR OR ABOVE OPTIMAL 130 - 159 mg/dl BORDERLINE HIGH 160 - 189 mg/dl HIGH >190 mg/dl VERY HIGH Performed By: #### L JORDON GARRETT, CMP #### [facility] [address] [place] [address] Dr. Brady Sanders Triglyceride [Mass/Vol] 164 mg/dL Critically high <=150 [facility] Comment on above: Performed By: #### L JORDON GARRETT, CMP #### [facility] [address] [address] [address] Brady Sanders VLDL CALC 32.8 mg/dL Normal [facility] Comment on above: Performed By: #### L JORDON GARRETT, CMP #### [facility] [address] [place] [address] Dr. Brady Sanders MICROALBUMIN, RAND URon 12- mALB <1.3 Normal <=30.0 [facility] Comment on above: Performed By: #### L JORDON GARRETT, CMP #### [facility] [address] [place] [address] Dr. Brady Sanders PROF 14(COMP METB)on 03-07- 022 Albumin [Mass/Vol] 3.8 g/dL Normal 3.4-5.0 [facility] Comment on above: Performed By: #### L JORDON GARRETT, CMP #### [facility] [address] [place] [address] Dr. Brady Sanders Albumin/Globulin [Mass ratio] 1.0 {ratio} Normal [facility] Comment on above: Performed By: #### L JORDON GARRETT, CMP #### [facility] [address] [place] [address] Dr. Brady Sanders ALP [Catalytic activity/Vol] 102 U/L Normal 46-[address] [facility] Comment on above: Performed By: #### L JORDON GARRETT, CMP #### [facility] [address] [place] [address] Dr. Brady Sanders ALT [Catalytic activity/Vol] 41 U/L Normal 16-63 [facility] Comment on above: Performed By: #### L IPA, JORDON, CMP #### [facility] [address] [address] [address] Brady Sanders Anion gap [Moles/Vol] 14.7 mmol/L Normal [facility] Comment on above: Performed By: #### L IPA JORDON, CMP #### [facility] [address] [address] [address] Brady Sanders AST [Catalytic activity/Vol] 24 U/L Normal 15-37 [facility] Comment on above: Performed By: #### L IPA JORDON, CMP #### [facility] [address] [address] [address] Brady Sanders Bilirubin [Mass/Vol] 0.4 mg/dL Normal 0.2-1.0 [facility] Comment on above: Performed By: #### L IPA JORDON, CMP #### [facility] [address] [address] [address] Brady Sanders Calcium [Mass/Vol] 8.8 mg/dL Normal 8.5-10.1 [facility] Comment on above: Performed By: #### L IPA JORDON, CMP #### [facility] [address] [address] [address] Brady Sanders Chloride [Moles/Vol] 99 mmol/L Normal 98-107 [facility] Comment on above: Performed By: #### L IPA JORDON, CMP #### [facility] [address] [address] [address] Brady Sanders CO2 [Moles/Vol] 26.8 mmol/L Normal 21.0-32.0 [facility] Comment on above: Performed By: #### L IPA JORDON, CMP #### [facility] [address] [address] [address] Brady Sanders Creatinine [Mass/Vol] 1.00 mg/dL Normal 0.70-1.30 [facility] Comment on above: Performed By: #### L IPA, JORDON, CMP #### [facility] [address] [address] [address] Brady Sanders EGFR-AF NAURUAN >60 Normal >=60 [facility] Comment on above: Performed By: #### L IPA JORDON, CMP #### [facility] [address] [address] [address] Brady Sanders EGFR-NON AF NAURUAN >60 Normal >=60 [facility] Comment on above: Performed By: #### L IPA, JORDON, CMP #### [facility] [address] [address] [address] Brady Sanders Globulin (S) [Mass/Vol] 3.7 g/dL Normal [facility] Comment on above: Performed By: #### L IPA JORDON, CMP #### [facility] [address] [address] [address] Brady Sanders Glucose [Mass/Vol] 317 mg/dL Critically high 74-106 [facility] Comment on above: Performed By: #### L IPA JORDON, CMP #### [facility] [address] [address] [address] Brady Sanders Potassium [Moles/Vol] 3.5 mmol/L Normal 3.5-5.1 [facility] Comment on above: Performed By: #### L GERRY JORDON, CMP #### [facility] [address] [address] [address] Brady Sanders Protein [Mass/Vol] 7.5 g/dL Normal 6.4-8.2 [facility] Comment on above: Performed By: #### L IPA JORDON, CMP #### [facility] [address] [address] [address] Brady Sanders Sodium [Moles/Vol] 137 mmol/L Normal 136-145 [facility] Comment on above: Performed By: #### L IPA JORDON, CMP #### [facility] [address] [address] [address] Brady Sanders Urea nitrogen [Mass/Vol] 11.0 mg/dL Normal 7.0-18.0 [facility] Comment on above: Performed By: #### L IPA JORDON, CMP #### [facility] [address] [address] [address] Brady Sanders Urea nitrogen/Creatinine [Mass ratio] 11.0 mg/mg Normal [facility] Comment on above: Performed By: #### L GERRY, JORDON, CMP #### [facility] [address] [address] [address] Brady Sanders Urinalysis - AUTOMATEDon Appearance (U) clear [employer] Other Bilirubin Ql (U) Negative [employer] Other Color (U) medium tellow [employer] Other Glucose Ql (U) >1000 [employer] Other Hemoglobin Ql (U) trace [employer] Other Ketones Ql (U) Negative [employer] Other Leukocyte esterase Test strip Ql (U) trace [employer] Other Nitrite Ql (U) Negative [employer] Other pH (U) 5.5 [pH] [employer] Other Protein Ql (U) Negative [employer] Other Specific gravity (U) [Rel density] 1.015 [employer] Other Urobilinogen (U) [Mass/Vol] 0.2 mg/dL [employer] Other Urinalysis - AUTOMATED [employer] Other Urine Cultureon 10-10-2021 Bacteria identified Cx Nom (U) Reason for Exam Dysuria Urine >100,000 colonies/ml mixed bacterial skin contaminants 2 Days PERFORMED BY: [place] [id number] PATHOLOGIST VICE PRESIDENT OF BRAND MANAGEMENT TIA CORDOVA M.D. Normal [facility] Comment on above: Performed By: #### C UU #### [facility] [address] Bacteria identified Cx Nom (U) [employer] Other Quick Fluon 02-19-2021 FLUAV Ab CF (S) [Titer] Negative [employer] Other FLUBV Ab CF (S) [Titer] Negative [employer] Other Vital Signs Date Time Vital Sign Value Performing Clinician Facility 03-13-2022 18:15-0500 Body height 182.88 cm Mamie Sweetmond Other [facility] [employer] Other 03-13-2022 18:15-0500 Body mass index (BMI) [Ratio] 47.46 kg/m2 Mamie Sweetmond Other [facility] [facility] Other 03-13-2022 18:15-0500 Body temperature 98 [degF] Mamie Cannon Other [facility] [facility] Other 03-13-2022 18:15-0500 Body weight 158.76 kg Mamie Cannon Other [facility] Other 03-13-2022 18:15-0500 Respiratory rate 18 /min Mamie Cannon Other [facility] Other 03-13-2022 18:15-0500 SaO2% (BldA) [Mass fraction] 94 % Mamie Sweetmond Other [facility] [facility] Other 10-10-2021 10:30-0400 Body height 182.88 cm Mamie Sweetmond Other [facility] Other 10-10-2021 10:30-0400 Body mass index (BMI) [Ratio] 46.11 kg/m2 Mamie Kassandra Other [facility] [facility] Other 10-10-2021 10:30-0400 Body temperature 98.1 [degF] Mamie Cannon Other [facility] [facility] Other 10-10-2021 10:30-0400 Body weight 154.22 kg Mamie Cannon Other [facility] [facility] Other 10-10-2021 10:30-0400 Diastolic blood pressure 95 mm[Hg] Mamie Cannon Other [facility] Other 10-10-2021 10:30-0400 Respiratory rate 20 /min Mamie Cannon Other [facility] Other 10-10-2021 10:30-0400 SaO2% (BldA) [Mass fraction] 98 % Mamie Cannon Other [facility] Other 10-10-2021 10:30-0400 Systolic blood pressure 158 mm[Hg] Mamie Cannon Other [facility] [employer] Other 05-10-2021 10:00-0500 Body height 182.88 cm Alexandra Dimas Other [facility] [employer] Other 05-10-2021 10:00-0500 Body mass index (BMI) [Ratio] 49.28 kg/m2 Alexandra Dimas Other [facility] [employer] Other 05-10-2021 10:00-0500 Body temperature 96.4 [degF] Alexandra Dimas Other [facility] [employer] Other 05-10-2021 10:00-0500 Body weight 164.84 kg Alexandra Dimas Other [facility] Other 05-10-2021 10:00-0500 Diastolic blood pressure 84 mm[Hg] Alexandra Dimas Other [facility] Other 05-10-2021 10:00-0500 Respiratory rate 18 /min Alexandra Dimas Other [facility] [facility] Other 05-10-2021 10:00-0500 SaO2% (BldA) [Mass fraction] 96 % Alexandra Dimas Other [facility] [employer] Other 05-10-2021 10:00-0500 Systolic blood pressure 147 mm[Hg] Alexandra Dimas Other [facility] [employer] Other 02-19-2021 10:00-0500 Body height 182.88 cm Alexandra Ginty Other [facility] Other 02-19-2021 10:00-0500 Body mass index (BMI) [Ratio] 48.82 kg/m2 Alexandra Ginty Other [facility] [facility] Other 02-19-2021 10:00-0500 Body temperature 96.4 [degF] Alexandra Ginty Other [facility] [facility] Other 02-19-2021 10:00-0500 Body weight 163.3 kg Alexandra Ginty Other [facility] [facility] Other 02-19-2021 10:00-0500 SaO2% (BldA) [Mass fraction] 95 % Alexandra Ginty Other [employer] Other Encounters Encounter Date Encounter Type Care Provider Facility Start: 06-24-2023 End: 06-24-2023 ambulatory SHAIKH ALIZE Not Available Start: 06-23-2023 ambulatory MIKAYLA [facility] Start: 06-05-2023 End: 06-05-2023 ambulatory SHAIKH ROBBYD Not Available Start: 07-25-2022 End: 07-25-[address] GILBERT GARCIA . Facility:[facility] Start: 07-24-2022 End: 07-25-2022 ambulatory IYN H FAWWAD Facility:[facility] Start: 07-11-2022 End: 07-12-2022 ambulatory YIN H FAWWAD Facility:[facility] Start: 06-03-2022 End: 06-04-2022 ambulatory YIN H FAWWAD Facility:[facility] Start: 03-13-2022 End: 03-13-2022 ambulatory Mamie Cannon Other [facility] [facility] Other Start: 03-13-2022 Office outpatient vi sit 15 minutes Mamiehumphrey Cannon [facility] Start: 03-07-2022 End: 03-08-2022 ambulatory YIN H FAWWAD Facility:[facility] Start: 10-10-2021 End: 10-10-2021 ambulatory Mamie Cannon Other [facility] [facility] Other Start: 10-10-2021 Office outpatient vi sit 15 minutes Mamie Cannon [facility] Start: 10-10-2021 End: 10-10-2021 Departed 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 EDITOR-C Mamie Cannon Work Phone: [facility] [place] Start: 05-10-2021 End: 05-10-2021 ambulatory Alexandra Dimas Other [facility] [employer] Other Start: 05-10-2021 Office outpatient vi sit 15 minutes Alexandra Dimas [facility] Start: 02-19-2021 End: 02-19-2021 ambulatory Alexandra Ginty Other [facility] [employer] Other Start: 02-19-2021 Office outpatient vi sit 15 minutes Alexandra Ginty [facility] Plan of Treatment Date Care Activity Detail Author Bacteria identified in Urine by Culture [facility] Payers Date Payer Category Payer Unknown [id number] 2.16.84 [id number] 1975 Unknown [id number] 2.16.84 [id number] 1975 Unknown [id number] 2.16.84 [id number] 1973 Unknown [id number] 2.16.84 [id number] 1973 Unknown [id number] 2.16.84 [id number] 1973 Unknown [id number] 2.16.8 [id number] 1973 Unknown [id number] 2.16.84 [id number] 1973 Unknown [id number] 2.16.84 [id number] 1959 Unknown [id number] 2.16.8 [id number] Self-pay Self Pay [id number] Unknown Susan BC/BS [id number] Social History Date Type Detail Facility Unknown if ever smoked [employer] Other Sex Assigned At Sex Assigned At Bir th [facility] [facility] Other Start: 1975 Sex Assigned At Male F [facility] Evaluation note 03-13-2022 Note Date & Type [...] no improvement in 2 to 3 days. [employer] Other Evaluation note 10-10-2021 Note Date & [...] the ER for worsening symptoms or concern [employer] Other Evaluation note 05-10-2021 Note Date & [...] Other [facility] care material was printed [employer] Other Evaluation note 02-19-2021 Note Date & [...] Patient care instructions given in writting by [facility] Care At Home document [employer] Other Evaluation note Note Date & Type Note Facility Evaluation note [facility]: History general Narrative - Reported Note Date & Type Note Facility History general Narrative - Reported Type Medical History HTN Medical History Pre diabetic Medical History Anger issues Medical History Hyperlipidemia [employer] Other Chief Complaint and Reason for Visit [...] section and content) DATE CREATED AUTHOR 10/18/2021 [facility] DATE CREATED AUTHOR AUTHOR'S ORGANIZ ATION 08/01/2022 [facility] DATE CREATED AUTHOR AUTHOR'S ORGANIZ ATION 06/23/2023 [facility] DATE CREATED AUTHOR AUTHOR'S ORGANIZ ATION 06/25/2023 [facility] FOR RECORDS PERTAINING TO PATIENTS [...] BE BASED ON THE PRIMARY CLINICAL RECORDS. [facility] [employer] [facility]. provides no warranty or guarantee of the accuracy or completeness of information in this document.
[2023-07-08 09:58] LABS: Estimated Average Glucose 252 mg/dL; Glycohemoglobin A1C 10.4 % (4.5-6.2)
[2023-07-08 10:02] LABS: Creatinine Urine Random 409.14 mg/dL (20.00-300.00); Microalbumin Urine Random 3.7 mg/dL (<=30.0)
[2023-07-08 10:06] LABS: Alanine Aminotransferase 59 U/L (16-63); Albumin Globulin Ratio 1.1; Albumin Level 3.7 g/dL (3.4-5.0); Alkaline Phosphatase 100 U/L (46-116); Anion Gap 13.7; Aspartate Amino Transferase 26 U/L (15-37); BUN Creatinine Ratio 10.2; Bilirubin Total 0.6 mg/dL (0.2-1.0); Calcium 9.2 mg/dL (8.5-10.1); Carbon Dioxide 27.9 mmol/L (21.0-32.0); Chloride 101 mmol/L (98-107); Chol HDL Ratio 4.9; Cholesterol 142 mg/dL (<=200); Estimated GFR (African America >60 (>=60); Estimated GFR (Non-African Ame >60 (>=60); Globulin 3.5 g/dL; Glucose 279 mg/dL (74-106); HDL Cholesterol 29 mg/dL (40-60); Potassium 3.6 mmol/L (3.5-5.1); Sodium 139 mmol/L (136-145); Total Protein 7.2 g/dL (6.4-8.2); Triglycerides 149 mg/dL (<=150); Uric Acid 3.7 mg/dL (3.5-7.2); VLDL CHOLESTEROL 29.8 mg/dL
[2023-07-08 10:40] LABS: Basophils Percent Auto 0.5 % (0.2-2.0); Eosinophils Absolute Auto 0.1 10^3/uL (0.0-0.7); Eosinophils Percent Auto 1.4 % (0.9-7.0); Hematocrit 43.6 % (42.0-54.0); Hemoglobin 14.6 g/dL (14.0-18.0); Immature Granulocytes Abs Auto 0.01 10^3/uL (0.00-0.03); Immature Granulocytes Pct Auto 0.2 % (0.0-0.5); Lymphocytes Absolute Auto 2.1 10^3/uL (1.2-3.8); Lymphocytes Percent Auto 32.4 % (20.5-60.0); Mean Corpuscular HGB Conc 33.5 g/dL (29.9-35.2); Mean Corpuscular Hemoglobin 28.6 pg (25.9-34.0); Mean Corpuscular Volume 85.3 fL (80.0-94.0); Mean Platelet Volume 10.6 fL (9.5-13.5); Monocytes Absolute Auto 0.5 10^3/uL (0.3-0.8); Monocytes Percent Auto 8.1 % (1.7-12.0); Neutrophils Absolute Auto 3.8 10^3/uL (1.4-6.5); Neutrophils Percent Auto 57.4 % (43.0-75.0); Platelet Count 202 10^3/uL (150-450); Red Blood Count 5.11 10^6/uL (4.70-6.10); Red Cell Distribution Width 12.2 % (11.0-15.0); White Blood Count 6.5 10^3/uL (4.0-11.0)
== END 2023-07-08 09:07 | disposition home or self-care (01) ==
LOC: LAB 09:07
PROVIDERS: PCP Internal Medicine; Visit Provider Internal Medicine
DX: E79.0 Hyperuricemia without signs of inflammatory arthritis and tophaceous disease (principal); E78.5 Hyperlipidemia, unspecified; E11.9 Type 2 diabetes mellitus without complications
CPT/HCPCS: 36415; 80053; 80061; 82043; 82570; 83036; 84550; 85025

== ENCOUNTER 2023-07-11 10:17 | Outpatient (OUT) | payer OTHER, SELFPAY ==
--- NOTE | 2023-07-11 | XR_ITS ---
The [address] [address] Patient Name: KEVON BRENNER MRN: [id number] date: 1975 Sex: M Assigned Patient Location: Current Patient Location: Accession/Order Number: [id number] Exam Date: 07/11/2023 10:18 Report Date: 07/12/2023 10:30 At the request of: ALISON POOLE Procedure: XR lumbar spine min 4V EXAMINATION: XR lumbar spine min 4V HISTORY: LOWER BACK PAIN COMPARISON: No relevant comparison available. FINDINGS: BONES: Suspect mild grade 1 anterolisthesis of L4 on 5 without appreciable change in alignment during flexion and extension. No change in alignment during flexion and extension. Mild degenerative facet arthropathy L3-L4 through L5-S1. DISC SPACES: Mild narrowing L3-L4, L4-L5. PARASPINOUS: Negative. No paraspinous abnormality is seen. OTHER: Negative. XR/XR lumbar spine min 4V IMPRESSION: 1. Mild degenerative changes detailed above. 2. Limited examination due to patient body habitus and underpenetration. Electronically authenticated by: MIKAYLA COVINGTON Date: 07/12/2023 10:30
== END 2023-07-11 10:18 | disposition home or self-care (01) ==
LOC: EC 10:17
PROVIDERS: PCP Internal Medicine; Visit Provider Orthopaedic Surgery Orthopaedic Surgery of the Spine
DX: M54.50 Low back pain, unspecified (principal)
CPT/HCPCS: 72110

== ENCOUNTER 2023-07-24 11:02 | Outpatient (OUT) | payer OTHER, SELFPAY ==
--- NOTE | 2023-07-24 11:18 | P.CN_ITS ---
Consult Note: HPI Data of Consult Patient: new to practice Requesting Physician: Riri Hastings NP Primary Care Provider: Shaikh Adalid MD Consult Narrative Reason for consult: establish for low back pain with radiculopatyh Narrative: Hair Santos a pleasant 48 year old male presents for evaluation and management of low back pain with radiculopathy referred by Dr Montgomery and team. Patient noticed significant pain with radiculopathy in May of 2023 and has advanced imaging as noted below. Patient would like to defer on surgical intervention at this time. Patient has noticed improvement in radicular pain over the last month, he was started on gabapentin 300mg TID with benefit but stopped as he did not think he needed to continue it. Pain today 2/10 in low back, denies numbness tingling weakness. Pain increases to 8/10 with standing more than 1 hour, walking distances, and activity. Denies loss of bowel/bladder. No falls. Patient finds benefit to percocet 5-325mg PRN and tylenol. Engaged in PT without benefit. cc:: CC: Riri Hastings NP Review of Systems ROS Status of ROS 10 or more systems reviewed and unremark able except as noted in history and below Musculoskeletal Reports: back pain Meds Home Medications and Allergies Home Medications ?Medication ?Instructions ?Recorded ?Confirmed ?Type allopurinol 300 mg tablet 300 mg PO Q12H 10/24/22 10/24/22 History amlodipine 10 mg tablet 10 mg PO QDAY 10/24/22 10/24/22 History aspirin 81 mg tablet,delayed 81 mg PO QDAY 10/24/22 10/24/22 History release buspirone 10 mg tablet 10 mg PO QDAY 10/24/22 10/24/22 History carvedilol 25 mg tablet 25 mg PO Q12H 10/24/22 10/24/22 History dulaglutide 1.5 mg/0.5 mL 1.5 mg subcut QDAY 10/24/22 10/24/22 History subcutaneous pen injector (Trulicity) losartan 100 1 tab PO QDAY 10/24/22 10/24/22 History mg-hydrochlorothiazide 25 mg tablet pravastatin 40 mg tablet 40 mg PO QDAY 10/24/22 10/24/22 History tizanidine 4 mg tablet 4 mg PO Q12H 10/24/22 10/24/22 History cyclobenzaprine 10 mg tablet 10 mg PO TID PRN muscle spasm #20 06/16/23 Rx tabs oxycodone-acetaminophen 5 mg-325 1 tab PO Q6H PRN pain 5 days #20 06/16/23 Rx mg tablet (Percocet) tabs Allergies Allergy/AdvReac Type Severity Reaction Status Date / Time No Known Drug Allergies Allergy Verified 06/16/23 11:43 Exam Constitutional Documenting provider has reviewed patient's vital signs: yes Common normals: no apparent distress, oriented x3, healthy appearing, alert and well nourished General appearance: cooperative HENMT Common normals: normocephalic, hearing grossly normal bilaterally and moist oral mucous membranes Head and scalp: normocephalic Eye Common normals: PERRL Pupil: PERRL Neck & C-Spine Common normals: full ROM General: normal visual inspection Chest Common normals: inspection of chest normal Respiratory Common normals: normal respiratory effort, no retractions and no use of accessory muscles Back & Pelvis Lumbar spine/lower back: ROM limited, pain with ROM and straight leg raise negative bilaterally Other: facet loading positive bilateral L3-S1 no radicular pain on exam sensation intact BLE Extremity Common normals: normal to inspection and full ROM Neuro Common normals: oriented x3, CN's II-XII intact bilaterally, moves all extremities, no focal motor deficits, no sensory deficits noted, deep tendon reflexes 2+ bilaterally and gait normal Sensorium/orientation: alert Motor exam: strength 5/5 throughout and no movement abnormalities noted Psych Common normals: mental status grossly normal, thought process normal, cooperative, affect normal, speech normal and activity/motor behavior normal Speech: normal speech Thought process: normal thought process Results Imaging Lumbar MRI: Attestation: I have reviewed the pertinent imaging results. Radiologist's impression: Level of T12-L1 is unremarkable. No neural foraminal narrowing or canal stenoses at the level of L1-L2 and L2-L3 is noted. At the level of L3-4, there are disc bulge with superimposed right lateral extrusion with inferior migration with moderate bilateral neuroforaminal narrowing and moderate to severe canal stenosis. The right L4 nerve root is in close contact with the disc extrusion in the lateral recess. At the level of L4-5, there are disc bulge with moderate bilateral neuroforaminal narrowing and mild canal stenosis. At the level of L5-S1, there are disc bulge with central annular fissure with mild right and moderate left neuroforaminal narrowing and no canal stenosis. The left S1 nerve root is in close contact with the disc bulge in the lateral recess. The paraspinal muscles are unremarkable. Lumbar Xray: Attestation: I have reviewed the pertinent imaging results. Radiologist's impression: FINDINGS: BONES: Suspect mild grade 1 anterolisthesis of L4 on 5 without appreciable change in alignment during flexion and extension. No change in alignment during flexion and extension. Mild degenerative facet arthropathy L3-L4 through L5-S1. DISC SPACES: Mild narrowing L3-L4, L4-L5. PARASPINOUS: Negative. No paraspinous abnormality is seen. OTHER: Negative. Additional Findings Additional findings: If on a controlled substance or opioids, I have checked an [place] report on this patient and there are no aberrancies noted in the prescribing history.??If on a controlled substance or opioid a drug screen was completed and reviewed within the last year, and if there has not been a drug screen completed we ordered one today to monitor higher risk, state monitored pain medication use. As part of providing excellent, safe, comprehensive care, the following was completed at our patient's visit: 1. A medication reconciliation and review to ensure accurate knowledge of current/active medications, including asking our patients to inform us about any [id number] medications or herbal remedies/nutritional supplements/alternative remedies. 2. A review to specifically ensure our patients have had annual screening for screening for depression, screening for tobacco use, and screening for unhealthy alcohol use. For concerning screenings had a discussion with the patient, provided patient education, and recommended follow-up with primary care provider when appropriate. If patient noted with a risk of falling, they received education on strength, gait, and balance training to prevent future risk of falling. 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
== END 2023-07-24 11:03 | disposition home or self-care (01) ==
LOC: PM 11:03
PROVIDERS: PCP Internal Medicine; Visit Provider Nurse Practitioner
DX: M48.062 Spinal stenosis, lumbar region with neurogenic claudication (principal); M47.816 Spondylosis without myelopathy or radiculopathy, lumbar region; E11.8 Type 2 diabetes mellitus with unspecified complications
CPT/HCPCS: G0463

== ENCOUNTER 2023-07-31 07:52 | Outpatient (OUT) | payer OTHER, SELFPAY ==
--- OUTSIDE RECORDS SUMMARY | 2023-07-31 08:10 | XMS_ITS | CCD ---
Author Organization [facility] Care Team Providers Care Cleaner Operator Name Role Phone Alexandra Gill Unavailable DimasAlexandra martínez Unavailable JUSTO Cannon Attending Provider [phone] Mamie Cannon Unavailable FAWWAD, YIN H Admitting Unavailable FAWWAD, YIN H Attending Unavailable FAWWAD, YIN H Consulting Unavailable FAWWAD, YIN H Primary Care Unavailable JOSE Rodriguez, DR HUNT Admitting Unavailable JOSE ., DR HUNT Attending Unavailable JOSE ., DR HUNT Consulting Unavailable FAWWAD, YIN H Primary Care Unavailable ANALI, KAVIN Consulting Unavailable FAWWAD, YIN H Admitting Unavailable [...] H Consulting Unavailable FAWWAD, YIN Attending Unavailable FAWWAD, YIN Attending Unavailable FAWWAD, YIN Attending Unavailable MIKAYLA WESTBROOK Referring Unavailable FAWWAD, YIN Primary Care Unavailable MIKAYLA WESTBROOK Referring Unavailable FAWWAD, YIN Primary Care Unavailable Medications Current Medications Medication Drug Class(es) Dates Sig (Normalized) Sig (Original) [id number] 200 actuat albuterol 0.09 mg/actuat metered dose [...] vomiting, unspecified] Episodic Other aftercare (1 source) 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; 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] Onset: 07-29-2022 Episodic Other aftercare (1 source) Other rat exterminator (current) drug therapy; Translations: [OTH [facility]PC CURRENT DRUG THERAPY] Onset: 07-29-2022 Episodic Other ear and sense organ disorders (6 sources) Otitis externa; Translations: [Other otitis externa, bilateral] Chronic Other gastrointestinal disorders (12 sources) Diarrhea; Translations: [Diarrhea, unspecified] Episodic Spondylosis; intervertebral disc disorders; other back problems (1 source) Other intervertebral disc degeneration, lumbar region; Translations: [Other intervertebral disc degeneration, lumbar region] Onset: 06-23-2023 Chronic Unclassified (1 source) Low back pain, unspecified; Translations: [Low back pain, unspecified] Onset: 06-23-2023 Past or Other Problems Problem Classification Problem [...] Amylase [Catalytic activity/Vol] 32 U/L Normal 25-115 [facility] Comment on above: Performed By: #### L IPA, JORDON, CMP #### [facility] [address] [place] [address] Dr. Brady Sanders CBC AUTO DIFFon 07-25-2022 BASO # 0.0 103/ul Normal 0.0-0.1 [facility] Comment on above: Performed By: #### C BC #### [facility] [address] [place] [address] Dr. Brady Sanders Basophils/100 WBC (Bld) 0.4 % Normal 0.2-2.0 [facility] Comment on above: Performed By: #### C BC #### [facility] [address] [place] [address] Dr. Brady Sanders EO # 0.1 103/ul Normal 0.0-0.7 [facility] Comment on above: Performed By: #### C BC #### [facility] [address] [place] [address] Dr. Brady Sanders Eosinophils/100 WBC (Bld) 1.5 % Normal 0.9-7.0 [facility] Comment on above: Performed By: #### C BC #### [facility] [address] [place] [address] Dr. Brady Sanders Erythrocyte distribution width (RBC) [Ratio] 13.2 % Normal 11.0-15.0 [facility] Comment on above: Performed By: #### C BC #### [facility] [address] [place] [address] Dr. Brady Sanders Hematocrit (Bld) [Volume fraction] 41.0 % Critically low 42.0-54.0 [facility] Comment on above: Performed By: #### C BC #### [facility] [address] [place] [address] Dr. Brady Sanders Hemoglobin (Bld) [Mass/Vol] 13.8 g/dL Critically low 14.0-18.0 [facility] Comment on above: Performed By: #### C BC #### [facility] [address] [place] [address] Dr. Brady Sanders IG # 0.03 10e3/ul Normal 0.00-0.03 [facility] Comment on above: Performed By: #### C BC #### [facility] [address] [place] [address] Dr. Brady Sanders IG % 0.4 % Normal 0.0-0.5 [facility] Comment on above: Performed By: #### C BC #### [facility] [address] [place] [address] Dr. Brady Sanders LYMPH # 1.8 103/ul Normal 1.2-3.8 [facility] Comment on above: Performed By: #### C BC #### [facility] [address] [place] [address] Dr. Brady Sanders Lymphocytes/100 WBC (Bld) 21.4 % Normal 20.5-60.0 [facility] Comment on above: Performed By: #### C BC #### [facility] [address] [place] [address] Dr. Brady Sanders MANUAL DIFF REQ NO Normal [facility] Comment on above: Performed By: #### C BC #### [facility] [address] [place] [address] Dr. Brady Sanders MCH (RBC) [Entitic mass] 28.1 pg Normal 25.9-34.0 [facility] Comment on above: Performed By: #### C BC #### [facility] [address] [place] [address] Dr. Brady Sanders MCHC (RBC) [Mass/Vol] 33.7 g/dL Normal 29.9-35.2 [facility] Comment on above: Performed By: #### C BC #### [facility] [address] [place] [address] Dr. Brady Sanders MCV (RBC) [Entitic vol] 83.5 fL Normal 80.0-94.0 [facility] Comment on above: Performed By: #### C BC #### [facility] [address] [place] [address] Dr. Brady Sanders MONO # 0.5 103/ul Normal 0.3-0.8 [facility] Comment on above: Performed By: #### C BC #### [facility] [address] [place] [address] Dr. Brady Sanders Monocytes/100 WBC (Bld) 6.2 % Normal 1.7-12.0 [facility] Comment on above: Performed By: #### C BC #### [facility] [address] [place] [address] Dr. Brady Sanders NEUT # 5.9 103/ul Normal 1.4-6.5 [facility] Comment on above: Performed By: #### C BC #### [facility] [address] [place] [address] Dr. Brady Sanders Neutrophils/100 WBC (Bld) 70.1 % Normal 43.0-75.0 [facility] Comment on above: Performed By: #### C BC #### [facility] [address] [place] [address] Dr. Brady Sanders Platelet mean volume (Bld) [Entitic vol] 9.6 fL Normal 9.5-13.5 [facility] Comment on above: Performed By: #### C BC #### [facility] [address] [place] [address] Dr. Brady Sanders PLT 216 103/ul Normal 150-450 [facility] Comment on above: Performed By: #### C BC #### [facility] [address] [address] [address] Brady Sanders RBC 4.91 106/ul Normal 4.70-6.10 [facility] Comment on above: Performed By: #### C BC #### [facility] [id number] Brady Sanders WBC 8.4 103/ul Normal 4.0-11.0 [facility] Comment on above: Performed By: #### C BC #### [facility] [id number] Brady Sanders CT ABD/PELV W CONon [...] KAVIN BRIONES Date: 2022-07-25 10:58 Normal [facility] LIPASEon 07-25-2022 Lipase [Catalytic activity/Vol] 96.0 U/L Normal 73.0-393.0 [facility] Comment on above: Performed By: #### L JORDON GARRETT, CMP #### [facility] [address] [place] [address] Dr. Brady Sanders PROF 14(COMP METB)on 023 Albumin [Mass/Vol] 3.4 g/dL Normal 3.4-5.0 [facility] Comment on above: Performed By: #### L JORDON GARRETT, CMP #### [facility] [address] [place] [address] Dr. Bardy Sanders Albumin/Globulin [Mass ratio] 0.9 {ratio} Normal [facility] Comment on above: Performed By: #### L JORDON GARRETT, CMP #### [facility] [address] [place] [address] Dr. Brady Sanders ALP [Catalytic activity/Vol] 88 U/L Normal 46-116 [facility] Comment on above: Performed By: #### L JORDON GARRETT, CMP #### [facility] [address] [place] [address] Dr. Brady Sanders ALT [Catalytic activity/Vol] 27 U/L Normal 16-63 [facility] Comment on above: Performed By: #### L JORDON GARRETT, CMP #### [facility] [address] [place] [address] Dr. Brady Sanders Anion gap [Moles/Vol] 9.2 mmol/L Normal [facility] Comment on above: Performed By: #### L JORDON GARRETT, CMP #### [facility] [address] [place] [address] Dr. Brady Sanders AST [Catalytic activity/Vol] 18 U/L Normal 15-37 [facility] Comment on above: Performed By: #### L JORDON GARRETT, CMP #### [facility] [address] [place] [address] Dr. Brady Sanders Bilirubin [Mass/Vol] 0.4 mg/dL Normal 0.2-1.0 [facility] Comment on above: Performed By: #### L JORDON GARRETT, CMP #### [facility] [address] [address] [address] Brady Sanders Calcium [Mass/Vol] 8.5 mg/dL Normal 8.5-10.1 [facility] Comment on above: Performed By: #### L JORDON GARRETT, CMP #### [facility] [address] [address] [address] Brady Sanders Chloride [Moles/Vol] 103 mmol/L Normal 98-107 [facility] Comment on above: Performed By: #### L GERRY JORDON, CMP #### [facility] [address] [address] [address] Brady Sanders CO2 [Moles/Vol] 31.1 mmol/L Normal 21.0-32.0 [facility] Comment on above: Performed By: #### L JORDON GARRETT, CMP #### [facility] [address] [place] [address] Dr. Brady Sanders Creatinine [Mass/Vol] 0.79 mg/dL Normal 0.70-1.30 [facility] Comment on above: Performed By: #### L JORDON GARRETT, CMP #### [facility] [address] [place] [address] Dr. Brady Sanders EGFR-AF ETHIOPIAN >60 Normal >=60 [facility] Comment on above: Performed By: #### L JORDON GARRETT, CMP #### [facility] [address] [place] [address] Dr. Brady Sanders EGFR-NON AF ETHIOPIAN >60 Normal >=60 [facility] Comment on above: Performed By: #### L JORDON GARRETT, CMP #### [facility] [address] [place] [address] Dr. Brady Sanders Globulin (S) [Mass/Vol] 3.8 g/dL Normal [facility] Comment on above: Performed By: #### L JORDON GARRETT, CMP #### [facility] [address] [place] [address] Dr. Brady Sanders Glucose [Mass/Vol] 140 mg/dL Critically high 74-106 [facility] Comment on above: Performed By: #### L JORDON GARRETT, CMP #### [facility] [address] [address] [address] Brady Sanders Potassium [Moles/Vol] 3.3 mmol/L Critically low 3.5-5.1 [facility] Comment on above: Performed By: #### L IPA JORDON, CMP #### [facility] [address] [address] [address] Brady Sanders Protein [Mass/Vol] 7.2 g/dL Normal 6.4-8.2 [facility] Comment on above: Performed By: #### L IPA JORDON, CMP #### [facility] [address] [address] [address] Brady Sanders Sodium [Moles/Vol] 140 mmol/L Normal 136-145 [facility] Comment on above: Performed By: #### L GERRY JORDON, CMP #### [facility] [address] [place] [address] Dr. Brady Sanders Urea nitrogen [Mass/Vol] 10.0 mg/dL Normal 7.0-18.0 [facility] Comment on above: Performed By: #### L JORDON GARRETT, CMP #### [facility] [address] [address] [address] Brady Sanders Urea nitrogen/Creatinine [Mass ratio] 12.7 mg/mg Normal [facility] Comment on above: Performed By: #### L GERRY JORDON, CMP #### [facility] [address] [place] [address] Dr. Brady Sanders NM HEPATOBILIARY SCAN W on 07-24-2022 NM HEPATOBILIARY SCAN W HIDA SCAN WITH GALLBLADDER EJECTION FRACTION HISTORY: Abdominal Pain. COMPARISON: Ultrasound 07/11/2022. METHOD: Following IV injection of 5. mCi of [id number] , anterior imaging of the abdomen was [...] KIM JARRETT Date: 2022-07-24 09:14 Normal [facility] US SINGLE QUAD RT UPPERon US SINGLE [...] MIKAYLA COVINGTON Date: 2022-07-11 11:55 Normal [facility] GLYCOHEMOGLOBIN A1Con 2022 ADA RECOMMENDATION SEE BELOW Normal [facility] Comment on above: Result Comment: ADA RECOMMENDED LIMIT 4.0 - 6.0 ADA THERAPEUTIC TARGET < 7.0 ACTION SUGGESTED > 7.0 Performed By: #### A 1C #### [facility] [address] [address] [address] Brady Sanders Glucose [Mass/Vol] 143 mg/dL Normal [facility] Comment on above: Performed By: #### A 1C #### [facility] [address] [address] [address] Brady Sanders HbA1c (Bld) [Mass fraction] 6.6 % Critically high 4.5-6.2 [facility] Comment on above: Performed By: #### A 1C #### [facility] [address] [address] [address] Brady Sanders COVID + FLU Quick Testingon 03-13-2022 SARS-CoV-2 (COVID-19) RNA ADELINA+probe Ql (Unsp spec) Positive [facility] Other COVID + FLU Quick Testing Negative [facility] Other CBC AUTO DIFFon 03-07-2022 BASO # 0.0 103/ul Normal 0.0-0.1 [facility] Comment on above: Performed By: #### C BC #### [facility] [address] [address] [address] Brady Sanders Basophils/100 WBC (Bld) 0.5 % Normal 0.2-2.0 [facility] Comment on above: Performed By: #### C BC #### [facility] [address] [address] [address] Brady Sanders EO # 0.1 103/ul Normal 0.0-0.7 [facility] Comment on above: Performed By: #### C BC #### [facility] [address] [address] [address] Brady Sanders Eosinophils/100 WBC (Bld) 1.8 % Normal 0.9-7.0 [facility] Comment on above: Performed By: #### C BC #### [facility] [address] [address] [address] Brady Sanders Erythrocyte distribution width (RBC) [Ratio] 13.5 % Normal 11.0-15.0 [facility] Comment on above: Performed By: #### C BC #### [facility] [address] [address] [address] Brady Sanders Hematocrit (Bld) [Volume fraction] 46.5 % Normal 42.0-54.0 [facility] Comment on above: Performed By: #### C BC #### [facility] [address] [address] [address] Brady Sanders Hemoglobin (Bld) [Mass/Vol] 15.6 g/dL Normal 14.0-18.0 [facility] Comment on above: Performed By: #### C BC #### [facility] [address] [address] [address] Brady Sanders IG # 0.02 10e3/ul Normal 0.00-0.03 [facility] Comment on above: Performed By: #### C BC #### [facility] [address] [place] [address] Dr. Brady Sanders IG % 0.3 % Normal 0.0-0.5 [facility] Comment on above: Performed By: #### C BC #### [facility] [address] [place] [address] Dr. Brady Sanders LYMPH # 1.8 103/ul Normal 1.2-3.8 [facility] Comment on above: Performed By: #### C BC #### [facility] [address] [place] [address] Dr. Brady Sanders Lymphocytes/100 WBC (Bld) 22.3 % Normal 20.5-60.0 [facility] Comment on above: Performed By: #### C BC #### [facility] [address] [place] [address] Dr. Brady Sanders MANUAL DIFF REQ NO Normal [facility] Comment on above: Performed By: #### C BC #### [facility] [address] [place] [address] Dr. Brady Sanders MCH (RBC) [Entitic mass] 28.0 pg Normal 25.9-34.0 [facility] Comment on above: Performed By: #### C BC #### [facility] [address] [place] [address] Dr. Brady Sanders MCHC (RBC) [Mass/Vol] 33.5 g/dL Normal 29.9-35.2 [facility] Comment on above: Performed By: #### C BC #### [facility] [address] [place] [address] Dr. Brady Sanders MCV (RBC) [Entitic vol] 83.3 fL Normal 80.0-94.0 [facility] Comment on above: Performed By: #### C BC #### [facility] [address] [place] [address] Dr. Brady Sanders MONO # 0.5 103/ul Normal 0.3-0.8 [facility] Comment on above: Performed By: #### C BC #### [facility] [address] [place] [address] Dr. Brady Sanders Monocytes/100 WBC (Bld) 6.1 % Normal 1.7-12.0 [facility] Comment on above: Performed By: #### C BC #### [facility] [address] [place] [address] Dr. Brady Sanders NEUT # 5.4 103/ul Normal 1.4-6.5 [facility] Comment on above: Performed By: #### C BC #### [facility] [address] [place] [address] Dr. Brady Sanders Neutrophils/100 WBC (Bld) 69.0 % Normal 43.0-75.0 [facility] Comment on above: Performed By: #### C BC #### [facility] [address] [place] [address] Dr. Brady Sanders Platelet mean volume (Bld) [Entitic vol] 10.3 fL Normal 9.5-13.5 [facility] Comment on above: Performed By: #### C BC #### [facility] [address] [place] [address] Dr. Brady Sanders PLT 230 103/ul Normal 150-450 [facility] Comment on above: Performed By: #### C BC #### [facility] [address] [place] [address] Dr. Brady Sanders RBC 5.58 106/ul Normal 4.70-6.10 [facility] Comment on above: Performed By: #### C BC #### [facility] [address] [place] [address] Dr. Brady Sanders WBC 7.9 103/ul Normal 4.0-11.0 [facility] Comment on above: Performed By: #### C BC #### [facility] [address] [place] [address] Dr. Brady Sanders GLYCOHEMOGLOBIN A1Con 2021 ADA RECOMMENDATION SEE BELOW Normal [facility] Comment on above: Result Comment: ADA RECOMMENDED LIMIT 4.0 - 6.0 ADA THERAPEUTIC TARGET < 7.0 ACTION SUGGESTED > 7.0 Performed By: #### A 1C #### [facility] [address] [address] [address] Brady Sanders Glucose [Mass/Vol] 200 mg/dL Normal [facility] Comment on above: Performed By: #### A 1C #### [facility] [address] [address] [address] Brady Sanders HbA1c (Bld) [Mass fraction] 8.6 % Critically high 4.5-6.2 [facility] Comment on above: Performed By: #### A 1C #### [facility] [address] [address] [address] Brady Sanders LIPID PROFILEon 03-07-2022 CHOL-HDL RATIO NORM SEE BELOW Normal [facility] Comment on above: Result Comment: 3.3 - 4.4 LOW RISK 4.4 - 7.1 AVERAGE RISK 7.1 - 11.0 MODERATE RISK >11.0 HIGH RISK Performed By: #### L JORDON GARRETT, CMP #### [facility] [address] [place] [address] Dr. Brady Sanders Cholesterol [Mass/Vol] 136 mg/dL Normal <=200 [facility] Comment on above: Performed By: #### L JORDON GARRETT, CMP #### [facility] [address] [place] [address] Dr. Brady Sanders Cholesterol in HDL [Mass/Vol] 26 mg/dL Critically low 40-60 [facility] Comment on above: Performed By: #### L JORDON GARRETT, CMP #### [facility] [address] [address] [address] Brady Sanders Cholesterol in LDL [Mass/Vol] 77.2 mg/dL Normal [facility] Comment on above: Performed By: #### L JORDON GARRETT, CMP #### [facility] [address] [place] [address] Dr. Brady Sanders Cholesterol.total/C holesterol in HDL [Mass ratio] 5.2 {ratio} Normal [facility] Comment on above: Performed By: #### L JORDON GARRETT, CMP #### [facility] [address] [place] [address] Dr. Brady Sanders HDL NORMAL > or = 60 mg/dl - LO W CARDIOVASCULAR RISK <40 mg/dl - HIGH CARDIOVASCULAR RISK Normal [facility] Comment on above: Performed By: #### L JORDON GARRETT, CMP #### [facility] [address] [address] [address] Brady Sanders LDL CALC NORMAL SEE BELOW Normal [facility] Comment on above: Result Comment: <100 mg/dl OPTIMAL 100 - 129 mg/dl NEAR OR ABOVE OPTIMAL 130 - 159 mg/dl BORDERLINE HIGH 160 - 189 mg/dl HIGH >190 mg/dl VERY HIGH Performed By: #### L JORDON GARRETT, CMP #### [facility] [address] [address] [address] Brady Sanders Triglyceride [Mass/Vol] 164 mg/dL Critically high <=150 [facility] Comment on above: Performed By: #### L JORDON GARRETT, CMP #### [facility] [address] [address] [address] Brady Sanders VLDL CALC 32.8 mg/dL Normal [facility] Comment on above: Performed By: #### L JORDON GARRETT, CMP #### [facility] [address] [address] [address] Brady Sanders MICROALBUMIN, RAND URon 02-21 mALB <1.3 Normal <=30.0 [facility] Comment on above: Performed By: #### L JORDON GARRETT, CMP #### [facility] [address] [address] [address] Brady Sanders PROF 14(COMP METB)on 022 Albumin [Mass/Vol] 3.8 g/dL Normal 3.4-5.0 [facility] Comment on above: Performed By: #### L JORDON GARRETT, CMP #### [facility] [address] [address] [address] Brady Sanders Albumin/Globulin [Mass ratio] 1.0 {ratio} Normal [facility] Comment on above: Performed By: #### L JORDON GARRETT, CMP #### [facility] [address] [address] [address] Brady Sanders ALP [Catalytic activity/Vol] 102 U/L Normal 46-116 [facility] Comment on above: Performed By: #### L JORDON GARRETT, CMP #### [facility] [address] [address] [address] Brady Sanders ALT [Catalytic activity/Vol] 41 U/L Normal 16-63 [facility] Comment on above: Performed By: #### L GERRY JORDON, CMP #### [facility] [address] [address] [address] Brady Sanders Anion gap [Moles/Vol] 14.7 mmol/L Normal [facility] Comment on above: Performed By: #### L JORDON GARRETT, CMP #### [facility] [address] [address] [address] Brady Sanders AST [Catalytic activity/Vol] 24 U/L Normal 15-37 [facility] Comment on above: Performed By: #### L JORDON GARRETT, CMP #### [facility] [address] [place] [address] Dr. Brady Sanders Bilirubin [Mass/Vol] 0.4 mg/dL Normal 0.2-1.0 [facility] Comment on above: Performed By: #### L JORDON GARRETT, CMP #### [facility] [address] [place] [address] Dr. Brady Sanders Calcium [Mass/Vol] 8.8 mg/dL Normal 8.5-10.1 [facility] Comment on above: Performed By: #### L GERRY JORDON, CMP #### [facility] [address] [place] [address] Dr. Brady Sanders Chloride [Moles/Vol] 99 mmol/L Normal 98-107 [facility] Comment on above: Performed By: #### L GERRY JORDON, CMP #### [facility] [address] [place] [address] Dr. Brady Sanders CO2 [Moles/Vol] 26.8 mmol/L Normal 21.0-32.0 [facility] Comment on above: Performed By: #### L GERRY JORDON, CMP #### [facility] [address] [address] [address] Brady Sanders Creatinine [Mass/Vol] 1.00 mg/dL Normal 0.70-1.30 [facility] Comment on above: Performed By: #### L JORDON GARRETT, CMP #### [facility] [address] [address] [address] Brady Sanders EGFR-AF ETHIOPIAN >60 Normal >=60 [facility] Comment on above: Performed By: #### L JORDON GARRETT, CMP #### [facility] [address] [address] [address] Brady Sanders EGFR-NON AF ETHIOPIAN >60 Normal >=60 [facility] Comment on above: Performed By: #### L JORDON GARRETT, CMP #### [facility] [address] [address] [address] Brady Sanders Globulin (S) [Mass/Vol] 3.7 g/dL Normal [facility] Comment on above: Performed By: #### L JORDON GARRETT, CMP #### [facility] [address] [address] [address] Brady Sanders Glucose [Mass/Vol] 317 mg/dL Critically high 74-106 [facility] Comment on above: Performed By: #### L JORDON GARRETT, CMP #### [facility] [address] [address] [address] Brady Sanders Potassium [Moles/Vol] 3.5 mmol/L Normal 3.5-5.1 [facility] Comment on above: Performed By: #### L JORDON GARRETT, CMP #### [facility] [address] [address] [address] Brady Sanders Protein [Mass/Vol] 7.5 g/dL Normal 6.4-8.2 [facility] Comment on above: Performed By: #### L JORDON GARRETT, CMP #### [facility] [address] [address] [address] Brady Sanders Sodium [Moles/Vol] 137 mmol/L Normal 136-145 [facility] Comment on above: Performed By: #### L JORDON GARRETT, CMP #### [facility] [address] [place], [place] [address] Dr. Brady Sanders Urea nitrogen [Mass/Vol] 11.0 mg/dL Normal 7.0-18.0 [facility] Comment on above: Performed By: #### L JORDON GARRETT, CMP #### [facility] [address] [place], [place] [address] Dr. Brady Sanders Urea nitrogen/Creatinine [Mass ratio] 11.0 mg/mg Normal [facility] Comment on above: Performed By: #### L JORDON GARRETT, CMP #### [facility] [address] [address] [address] Brady Sanders Urinalysis - AUTOMATEDon Appearance (U) clear [employer] Other Bilirubin Ql (U) Negative [employer] Other Color (U) medium tellow [facility] Other Glucose Ql (U) >1000 [employer] Other Hemoglobin Ql (U) trace [employer] Other Ketones Ql (U) Negative [employer] Other Leukocyte esterase Test strip Ql (U) trace [facility] Other Nitrite Ql (U) Negative [employer] Other pH (U) 5.5 [pH] [facility] Other Protein Ql (U) Negative [employer] Other Specific gravity (U) [Rel density] 1.015 [facility] Other Urobilinogen (U) [Mass/Vol] 0.2 mg/dL [facility] Other Urinalysis - AUTOMATED [facility] Other Urine Cultureon 10-10-2021 Bacteria identified Cx Nom (U) Reason for Exam Dysuria Urine >100,000 colonies/ml mixed bacterial skin contaminants 2 Days PERFORMED BY: [place] [id number] PATHOLOGIST [employer] TIA CORDOVA M.D. Normal [facility] Comment on above: Performed By: #### C UU #### [address] Bacteria identified Cx Nom (U) [facility] Other Quick Fluon 02-19-2021 FLUAV Ab CF (S) [Titer] Negative [facility] Other FLUBV Ab CF (S) [Titer] Negative [facility] Other Vital Signs Date Time Vital Sign Value Performing Clinician Facility 03-13-2022 18:15-0500 Body height 182.88 cm Mamie Cannon Other [facility] Other 03-13-2022 18:15-0500 Body mass index (BMI) [Ratio] 47.46 kg/m2 Mamie Cannon Other [facility] Other 03-13-2022 18:15-0500 Body temperature 98 [degF] Mamie Cannon Other [facility] Other 03-13-2022 18:15-0500 Body weight 158.76 kg Mamie Cannon Other [facility] Other 03-13-2022 18:15-0500 Respiratory rate 18 /min Mamie Cannon Other [facility] Other 03-13-2022 18:15-0500 SaO2% (BldA) [Mass fraction] 94 % Mamie Cannon Other [facility] Other 10-10-2021 10:30-0400 Body height 182.88 cm Mamie Cannon Other [facility] Other 10-10-2021 10:30-0400 Body mass index (BMI) [Ratio] 46.11 kg/m2 Mamie Kassandra Other [facility] Other 10-10-2021 10:30-0400 Body temperature 98.1 [degF] Mamie Cannon Other [facility] Other 10-10-2021 10:30-0400 Body weight 154.22 kg Mamie Kassandra Other [facility] Other 10-10-2021 10:30-0400 Diastolic blood pressure 95 mm[Hg] Mamie Sweetmond Other [facility] Other 10-10-2021 10:30-0400 Respiratory rate 20 /min Mamie Sweetmond Other [facility] Other 10-10-2021 10:30-0400 SaO2% (BldA) [Mass fraction] 98 % Mamie Sweetmond Other [facility] Other 10-10-2021 10:30-0400 Systolic blood pressure 158 mm[Hg] Mamie Kassandra Other [facility] Other 05-10-2021 10:00-0500 Body height 182.88 cm Alexandra Dimas Other [facility] Other 05-10-2021 10:00-0500 Body mass index (BMI) [Ratio] 49.28 kg/m2 Alexandra Dimas Other [facility] Other 05-10-2021 10:00-0500 Body temperature 96.4 [degF] Alexandra Dimas Other [facility] Other 05-10-2021 10:00-0500 Body weight 164.84 kg Alexandra Dimas Other [facility] Other 05-10-2021 10:00-0500 Diastolic blood pressure 84 mm[Hg] Alexandra Dimas Other [facility] Other 05-10-2021 10:00-0500 Respiratory rate 18 /min Alexandra Dimas Other [facility] Other 05-10-2021 10:00-0500 SaO2% (BldA) [Mass fraction] 96 % Alexandra Dimas Other [facility] Other 05-10-2021 10:00-0500 Systolic blood pressure 147 mm[Hg] Alexandra Dimas Other [facility] Other 02-19-2021 10:00-0500 Body height 182.88 cm Alexandra Hannadelfinasusan Other [facility] Other 02-19-2021 10:00-0500 Body mass index (BMI) [Ratio] 48.82 kg/m2 Alexandra Hannanty Other [facility] Other 02-19-2021 10:00-0500 Body temperature 96.4 [degF] Alexandra Ginty Other [facility] Other 02-19-2021 10:00-0500 Body weight 163.3 kg Alexandra Ginty Other [facility] Other 02-19-2021 10:00-0500 SaO2% (BldA) [Mass fraction] 95 % Alexandra Gill Other [facility] Other Encounters Encounter Date Encounter Type Care Provider Facility Start: 07-24-2023 ambulatory MIKAYLA Chamorro [facility] Start: 07-14-2023 End: 07-14-2023 ambulatory YIN FAWWAD Not Available Start: 06-24-2023 End: 06-24-2023 ambulatory YIN FAWWAD Not Available Start: 06-23-2023 End: [facility] [facility]: 06-05-2023 End: 06-05-2023 ambulatory YIN FAWWAD Not Available Start: 07-25-2022 End: 07-25-[address] GILBERT GARCIA . Facility:[facility] Start: 07-24-2022 End: 07-25-2022 ambulatory YIN H FAWWAD Facility:[facility] Start: 07-11-2022 End: 07-12-2022 ambulatory YIN H FAWWAD Facility:[facility] Start: 06-03-2022 End: 06-04-2022 ambulatory YIN H FAWWAD Facility:[facility] Start: 03-13-2022 End: 03-13-2022 ambulatory Mamiehumphrey Cannon Other [facility] Other Start: 03-13-2022 Office outpatient vi sit 15 minutes Mamie Kassandra [facility] Start: 03-07-2022 End: 03-08-2022 ambulatory YIN H FAWWAD Facility:[facility] Start: 10-10-2021 End: 10-10-2021 ambulatory Mamie Cannon Other [facility] Other Start: 10-10-2021 Office outpatient vi sit 15 minutes Mamie Kassandra [facility] Start: 10-10-2021 End: 10-10-2021 Departed Referred [employer] Mamie Cannon Work Phone: [facility] [place] Start: 05-10-2021 End: 05-10-2021 ambulatory Alexandra Dimas Other [facility] Other Start: 05-10-2021 Office outpatient vi sit 15 minutes Alexandra Dimas [facility] Start: 02-19-2021 End: 02-19-2021 ambulatory Alexandra Hannadelfinay Other [facility] Other Start: 02-19-2021 Office outpatient vi sit 15 minutes Alexandra Ginty [facility] Plan of Treatment Date Care Activity Detail Author Bacteria identified in Urine by Culture [facility] Payers Date Payer Category Payer Unknown [id number] 2.16.84 [id number] 1975 Unknown [id number] 2.16.84 [id number] 1975 Unknown [id number] 2.16.84 [id number] 1973 Unknown [id number] 2.16.84 [id number] 1973 Unknown [id number] 2.16.84 [id number] 1973 Unknown [id number] 2.16.84 [id number] 1973 Unknown [id number] 2.16.84 [id number] 1973 Unknown [id number] 2.16.84 [id number] 1973 Unknown [id number] 2.16.8 [id number] 1973 Unknown [id number] 2.16.8 [id number] 1959 Unknown [id number] 2.16.8 [id number] Self-pay Self Pay [id number] Unknown Susan LIT/BS [id number] Social History Date Type Detail Facility Unknown if ever smoked [facility] Other Sex Assigned At Sex Assigned At Bir th [facility] Other Start: 1975 Sex Assigned At Male F [facility] Evaluation note 03-13-2022 Note Date & [...] no improvement in 2 to 3 days. [facility] Other Evaluation note 10-10-2021 Note Date & [...] the ER for worsening symptoms or concern [facility] Other Evaluation note 05-10-2021 Note Date & [...] Other [facility] home care material was printed [facility] Other Evaluation note 02-19-2021 Note Date & [...] Patient care instructions given in writting by [facility] Care At Home document [facility] [employer] Other Evaluation note Note Date & Type Note Facility Evaluation note No assessment information availa [facility] Work Phone: History general Narrative - Reported Note Date & Type Note Facility History general Narrative - Reported Type Medical History HTN Medical History Pre diabetic Medical History Anger issues Medical History Hyperlipidemia [facility] Other Chief Complaint and Reason for Visit [...] Team Status: Inactive Member Role Status Dates ALEXIS NelsonC Attending Provider Active Goals (unrecognized section and content) Goals may be documented in a n alternate section (unrecognized sect ion and content) No Status Records FoundNo Status Records FoundNo Status Records FoundNo Status Records Found INFORMATION SOURCE (unrecogn ized section and content) DATE CREATED AUTHOR 10/18/2021 [facility] DATE CREATED AUTHOR AUTHOR'S ORGANIZ ATION 08/01/2022 [facility] DATE CREATED AUTHOR AUTHOR'S ORGANIZ ATION 07/14/2023 [facility] DATE CREATED AUTHOR AUTHOR'S ORGANIZ ATION 07/25/2023 [facility] FOR RECORDS PERTAINING TO PATIENTS WHO ARE [...] BE BASED ON THE PRIMARY CLINICAL RECORDS. [facility] [employer] [facility]. provides no warranty or guarantee of the accuracy or completeness of information in this document.
[2023-07-31 09:26] LABS: Anion Gap 14.3; BUN Creatinine Ratio 14.1; Calcium 9.3 mg/dL (8.5-10.1); Carbon Dioxide 26.4 mmol/L (21.0-32.0); Chloride 99 mmol/L (98-107); Estimated GFR (African America >60 (>=60); Estimated GFR (Non-African Ame >60 (>=60); Glucose 179 mg/dL (74-106); Potassium 3.7 mmol/L (3.5-5.1); Sodium 136 mmol/L (136-145)
== END 2023-07-31 07:53 | disposition home or self-care (01) ==
LOC: LAB 07:53
PROVIDERS: PCP Internal Medicine; Visit Provider Internal Medicine
DX: I10 Essential (primary) hypertension (principal)
CPT/HCPCS: 36415; 80048

== ENCOUNTER 2023-09-22 07:18 | Outpatient (OUT) | payer OTHER, SELFPAY ==
--- NOTE | 2023-09-22 | ECG_ITS ---
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
--- OUTSIDE RECORDS SUMMARY | 2023-09-22 07:22 | XMS_ITS | CCD ---
Author Organization [facility] Care Team Providers Care Virology Teacher Name Role Phone Alexandra Gill Unavailable Wing Alexandra Unavailable JUSTO Cannon Attending Provider [phone] Mamie Cannon Unavailable FAWWAD, YIN H Admitting [...] YIN Attending Unavailable FAWWAD, YIN Attending Unavailable JEANNE LUCIANO Attending Unavailable DEBRA CHAMORRO Referring Unavailable MIKAYLA WESTBROOK Referring Unavailable FAWWAD, YIN Primary Care Unavailable MIKAYLA WESTBROOK Ref[facility] Un[facility] Unavailable Medications Current Medications Medication Drug Class(es) Dates Sig (Normalized) Sig (Original) [id number] 200 actuat albuterol 0.09 mg/actuat metered dose [...] vomiting, unspecified] Episodic Other aftercare (1 source) nursing home (current) use of aspirin; Translations: [CHORUS DANCER CURRENT USE OF ASPIRIN] Onset: 07-29-2022 Episodic Other aftercare (1 source) Other [facility] (current) drug therapy; Translations: [[facility] CURRENT DRUG THERAPY] Onset: 07-29-2022 Episodic Other [...] Amylase [Catalytic activity/Vol] 32 U/L Normal 25-115 [facility] Comment on above: Performed By: #### L IPA, JORDON, CMP #### [facility] [address] [place] [address] Dr. Brady Sanders CBC AUTO DIFFon 07-25-2022 BASO # 0.0 103/ul Normal 0.0-0.1 [facility] Comment on above: Performed By: #### C BC #### [facility] [address] [place] [address] Dr. Brady Sanders Basophils/100 WBC (Bld) 0.4 % Normal 0.2-2.0 [facility] Comment on above: Performed By: #### C BC #### [facility] [address] [place] [address] Dr. Brady Sanders EO # 0.1 103/ul Normal 0.0-0.7 [facility] Comment on above: Performed By: #### C BC #### [facility] [address] [place] [address] Dr. Brady Sanders Eosinophils/100 WBC (Bld) 1.5 % Normal 0.9-7.0 [facility] Comment on above: Performed By: #### C BC #### [facility] [address] [place] [address] Dr. Brady Sanders Erythrocyte distribution width (RBC) [Ratio] 13.2 % Normal 11.0-15.0 [facility] Comment on above: Performed By: #### C BC #### [facility] [address] [place] [address] Dr. Brady Sanders Hematocrit (Bld) [Volume fraction] 41.0 % Critically low 42.0-54.0 [facility] Comment on above: Performed By: #### C BC #### [facility] [address] [place] [address] Dr. Brady Sanders Hemoglobin (Bld) [Mass/Vol] 13.8 g/dL Critically low 14.0-18.0 [facility] Comment on above: Performed By: #### C BC #### [facility] [address] [place] [address] Dr. Brady Sanders IG # 0.03 10e3/ul Normal 0.00-0.03 [facility] Comment on above: Performed By: #### C BC #### [facility] [address] [place] [address] Dr. Brady Sanders IG % 0.4 % Normal 0.0-0.5 [facility] Comment on above: Performed By: #### C BC #### [facility] [address] [place] [address] Dr. Brady Sanders LYMPH # 1.8 103/ul Normal 1.2-3.8 [facility] Comment on above: Performed By: #### C BC #### [facility] [address] [place] [address] Dr. Brady Sanders Lymphocytes/100 WBC (Bld) 21.4 % Normal 20.5-60.0 [facility] Comment on above: Performed By: #### C BC #### [facility] [address] [place] [address] Dr. Brady Sanders MANUAL DIFF REQ NO Normal [facility] Comment on above: Performed By: #### C BC #### [facility] [address] [place] [address] Dr. Brady Sanders MCH (RBC) [Entitic mass] 28.1 pg Normal 25.9-34.0 [facility] Comment on above: Performed By: #### C BC #### [facility] [address] [place] [address] Dr. Brady Sanders MCHC (RBC) [Mass/Vol] 33.7 g/dL Normal 29.9-35.2 [facility] Comment on above: Performed By: #### C BC #### [facility] [address] [place] [address] Dr. Brady Sanders MCV (RBC) [Entitic vol] 83.5 fL Normal 80.0-94.0 [facility] Comment on above: Performed By: #### C BC #### [facility] [address] [place] [address] Dr. Brady Sanders MONO # 0.5 103/ul Normal 0.3-0.8 [facility] Comment on above: Performed By: #### C BC #### [facility] [address] [place] [address] Dr. Brady Sanders Monocytes/100 WBC (Bld) 6.2 % Normal 1.7-12.0 [facility] Comment on above: Performed By: #### C BC #### [facility] [address] [place] [address] Dr. Brady Sanders NEUT # 5.9 103/ul Normal 1.4-6.5 [facility] Comment on above: Performed By: #### C BC #### [facility] [address] [place] [address] Dr. Brady Sanders Neutrophils/100 WBC (Bld) 70.1 % Normal 43.0-75.0 [facility] Comment on above: Performed By: #### C BC #### [facility] [address] [place] [address] Dr. Brady Sanders Platelet mean volume (Bld) [Entitic vol] 9.6 fL Normal 9.5-13.5 [facility] Comment on above: Performed By: #### C BC #### [facility] [address] [place], [place] [address] Dr. Brady Sanders PLT 216 103/ul Normal 150-450 [facility] Comment on above: Performed By: #### C BC #### [facility] [address] [place], [place] [address] Dr. Brady Sanders RBC 4.91 106/ul Normal 4.70-6.10 [facility] Comment on above: Performed By: #### C BC #### [facility] [address] [place], [place] [address] Dr. Brady Sanders WBC 8.4 103/ul Normal 4.0-11.0 [facility] Comment on above: Performed By: #### C BC #### [facility] [address] [place], [place] [address] ABD/PELV W CONon [...] by: KAVIN BRIONES Date: 2022-07-25 10:58 Normal [facility] LIPASEon 07-25-2022 Lipase [Catalytic activity/Vol] 96.0 U/L Normal 73.0-393.0 [facility] Comment on above: Performed By: #### L IPA, JORDON, CMP #### [facility] [address] [place] [address] [address] Brady Sanders PROF 14(COMP METB)on 023 Albumin [Mass/Vol] 3.4 g/dL Normal 3.4-5.0 [facility] Comment on above: Performed By: #### L IPA, JORDON, CMP #### [facility] [address] [address] [address] Brady Sanders Albumin/Globulin [Mass ratio] 0.9 {ratio} Normal [facility] Comment on above: Performed By: #### L IPA, JORDON, CMP #### [facility] [address] [place] [address] Dr. Brady Sanders ALP [Catalytic activity/Vol] 88 U/L Normal 46-116 [facility] Comment on above: Performed By: #### L IPA, JORDON, CMP #### [facility] [address] [place] [address] Dr. Brady Sanders ALT [Catalytic activity/Vol] 27 U/L Normal 16-63 [facility] Comment on above: Performed By: #### L IPA, JORDON, CMP #### [facility] [address] [address] [address] Brady Sanders Anion gap [Moles/Vol] 9.2 mmol/L Normal [facility] Comment on above: Performed By: #### L IPA, JORDON, CMP #### [facility] [address] [address] [address] Brady Sanders AST [Catalytic activity/Vol] 18 U/L Normal 15-37 [facility] Comment on above: Performed By: #### L IPA, JORDON, CMP #### [facility] [address] [place] [address] Dr. Brady Sanders Bilirubin [Mass/Vol] 0.4 mg/dL Normal 0.2-1.0 [facility] Comment on above: Performed By: #### L JORDON GARRETT, CMP #### [facility] [address] [place] [address] Dr. Brady Sanders Calcium [Mass/Vol] 8.5 mg/dL Normal 8.5-10.1 [facility] Comment on above: Performed By: #### L GERRY JORDON, CMP #### [facility] [address] [place] [address] Dr. Brady Sanders Chloride [Moles/Vol] 103 mmol/L Normal 98-107 [facility] Comment on above: Performed By: #### L JORDON GARRETT, CMP #### [facility] [address] [place] [address] Dr. Brady Sanders CO2 [Moles/Vol] 31.1 mmol/L Normal 21.0-32.0 [facility] Comment on above: Performed By: #### L JORDON GARRETT, CMP #### [facility] [address] [place] [address] Dr. Brady Sanders Creatinine [Mass/Vol] 0.79 mg/dL Normal 0.70-1.30 [facility] Comment on above: Performed By: #### L JORDON GARRETT, CMP #### [facility] [address] [place] [address] Dr. Brady Sanders EGFR-AF TAJIK >60 Normal >=60 [facility] Comment on above: Performed By: #### L JORDON GARRETT, CMP #### [facility] [address] [place] [address] Dr. Brady Sanders EGFR-NON AF TAJIK >60 Normal >=60 [facility] Comment on above: Performed By: #### L JORDON GARRETT, CMP #### [facility] [address] [place] [address] Dr. Brady Sanders Globulin (S) [Mass/Vol] 3.8 g/dL Normal [facility] Comment on above: Performed By: #### L JORDON GARRETT, CMP #### [facility] [address] [place] [address] Dr. Brady Sanders Glucose [Mass/Vol] 140 mg/dL Critically high 74-106 [facility] Comment on above: Performed By: #### L JORDON GARRETT, CMP #### [facility] [address] [place] [address] Dr. Brady Sanders Potassium [Moles/Vol] 3.3 mmol/L Critically low 3.5-5.1 [facility] Comment on above: Performed By: #### L JORDON GARRETT, CMP #### [facility] [address] [place] [address] Dr. Brady Sanders Protein [Mass/Vol] 7.2 g/dL Normal 6.4-8.2 [facility] Comment on above: Performed By: #### L JORDON GARRETT, CMP #### [facility] [address] [place] [address] Dr. Brady Sanders Sodium [Moles/Vol] 140 mmol/L Normal 136-145 [facility] Comment on above: Performed By: #### L JORDON GARRETT, CMP #### [facility] [address] [place] [address] Dr. Brady Sanders Urea nitrogen [Mass/Vol] 10.0 mg/dL Normal 7.0-18.0 [facility] Comment on above: Performed By: #### L JORDON GARRETT, CMP #### [facility] [address] [place] [address] Dr. Brady Sanders Urea nitrogen/Creatinine [Mass ratio] 12.7 mg/mg Normal [facility] Comment on above: Performed By: #### L JORDON GARRETT, CMP #### [facility] [address] [place] [address] Dr. Brady Sanders NM HEPATOBILIARY SCAN W EFon 07-24-2022 NM HEPATOBILIARY SCAN W EF HIDA SCAN WITH GALLBLADDER EJECTION FRACTION HISTORY: Abdominal Pain. COMPARISON: Ultrasound 07/11/2022. METHOD: Following IV injection of 5. mCi of [id number] , anterior imaging of the abdomen was [...] KIM JARRETT Date: 2022-07-24 09:14 Normal [facility] US SINGLE QUAD RT UPPERon US [...] MIKAYLA COVINGTON Date: 2022-07-11 11:55 Normal [facility] GLYCOHEMOGLOBIN A1Con 2022 ADA RECOMMENDATION SEE BELOW Normal [facility] Comment on above: Result Comment: ADA RECOMMENDED LIMIT 4.0 - 6.0 ADA THERAPEUTIC TARGET < 7.0 ACTION SUGGESTED > 7.0 Performed By: #### A 1C #### [facility] [address] [address] [address] Brady Sanders Glucose [Mass/Vol] 143 mg/dL Normal [facility] Comment on above: Performed By: #### A 1C #### [facility] [address] [address] [address] Brady Sanders HbA1c (Bld) [Mass fraction] 6.6 % Critically high 4.5-6.2 [facility] Comment on above: Performed By: #### A 1C #### [facility] [address] [address] [address] Brady Sanders COVID + FLU Quick Testingon 03-13-2022 SARS-CoV-2 (COVID-19) RNA ADELINA+probe Ql (Unsp spec) Positive [facility] [employer] Other COVID + FLU Quick Testing Negative [facility] Other CBC AUTO DIFFon 03-07-2022 BASO # 0.0 103/ul Normal 0.0-0.1 [facility] Comment on above: Performed By: #### C BC #### [facility] [address] [place] [address] Dr. Brady Sanders Basophils/100 WBC (Bld) 0.5 % Normal 0.2-2.0 [facility] Comment on above: Performed By: #### C BC #### [facility] [address] [place] [address] Dr. Brady Sanders EO # 0.1 103/ul Normal 0.0-0.7 [facility] Comment on above: Performed By: #### C BC #### [facility] [address] [place] [address] Dr. Brady Sanders Eosinophils/100 WBC (Bld) 1.8 % Normal 0.9-7.0 [facility] Comment on above: Performed By: #### C BC #### [facility] [address] [place] [address] Dr. Brady Sanders Erythrocyte distribution width (RBC) [Ratio] 13.5 % Normal 11.0-15.0 [facility] Comment on above: Performed By: #### C BC #### [facility] [address] [place] [address] Dr. Brady Sanders Hematocrit (Bld) [Volume fraction] 46.5 % Normal 42.0-54.0 [facility] Comment on above: Performed By: #### C BC #### [facility] [address] [place] [address] Dr. Brady Sanders Hemoglobin (Bld) [Mass/Vol] 15.6 g/dL Normal 14.0-18.0 [facility] Comment on above: Performed By: #### C BC #### [facility] [address] [place] [address] Dr. Brady Sanders IG # 0.02 10e3/ul Normal 0.00-0.03 [facility] Comment on above: Performed By: #### C BC #### [facility] [address] [place] [address] Dr. Brady Sanders IG % 0.3 % Normal 0.0-0.5 [facility] Comment on above: Performed By: #### C BC #### [facility] [address] [place] [address] Dr. Brady Sanders LYMPH # 1.8 103/ul Normal 1.2-3.8 [facility] Comment on above: Performed By: #### C BC #### [facility] [address] [place] [address] Dr. Brady Sanders Lymphocytes/100 WBC (Bld) 22.3 % Normal 20.5-60.0 [facility] Comment on above: Performed By: #### C BC #### [facility] [address] [place] [address] Dr. Brady Sanders MANUAL DIFF REQ NO Normal [facility] Comment on above: Performed By: #### C BC #### [facility] [address] [place] [address] Dr. Brady Sanders MCH (RBC) [Entitic mass] 28.0 pg Normal 25.9-34.0 [facility] Comment on above: Performed By: #### C BC #### [facility] [address] [place] [address] Dr. Brady Sanders MCHC (RBC) [Mass/Vol] 33.5 g/dL Normal 29.9-35.2 [facility] Comment on above: Performed By: #### C BC #### [facility] [address] [place] [address] Dr. Brady Sanders MCV (RBC) [Entitic vol] 83.3 fL Normal 80.0-94.0 [facility] Comment on above: Performed By: #### C BC #### [facility] [address] [place] [address] Dr. Brady Sanders MONO # 0.5 103/ul Normal 0.3-0.8 [facility] Comment on above: Performed By: #### C BC #### [facility] [address] [place] [address] Dr. Brady Sanders Monocytes/100 WBC (Bld) 6.1 % Normal 1.7-12.0 [facility] Comment on above: Performed By: #### C BC #### [facility] [address] [place] [address] Dr. Brady Sanders NEUT # 5.4 103/ul Normal 1.4-6.5 [facility] Comment on above: Performed By: #### C BC #### [facility] [address] [place] [address] Dr. Brady Sanders Neutrophils/100 WBC (Bld) 69.0 % Normal 43.0-75.0 [facility] Comment on above: Performed By: #### C BC #### [facility] [address] [place] [address] Dr. Brady Sanders Platelet mean volume (Bld) [Entitic vol] 10.3 fL Normal 9.5-13.5 [facility] Comment on above: Performed By: #### C BC #### [facility] [address] [place] [address] Dr. Brady Sanders PLT 230 103/ul Normal 150-450 [facility] Comment on above: Performed By: #### C BC #### [facility] [address] [place] [address] Dr. Brady Sanders RBC 5.58 106/ul Normal 4.70-6.10 [facility] Comment on above: Performed By: #### C BC #### [facility] [address] [place] [address] Dr. Brady Sanders WBC 7.9 103/ul Normal 4.0-11.0 [facility] Comment on above: Performed By: #### C BC #### [facility] [address] [place] [address] Dr. Brady Sanders GLYCOHEMOGLOBIN A1Con 2021 ADA RECOMMENDATION SEE BELOW Normal [facility] Comment on above: Result Comment: ADA RECOMMENDED LIMIT 4.0 - 6.0 ADA THERAPEUTIC TARGET < 7.0 ACTION SUGGESTED > 7.0 Performed By: #### A 1C #### [facility] [address] [address] [address] Brady Sanders Glucose [Mass/Vol] 200 mg/dL Normal [facility] Comment on above: Performed By: #### A 1C #### [facility] [address] [address] [address] Brady Sanders HbA1c (Bld) [Mass fraction] 8.6 % Critically high 4.5-6.2 [facility] Comment on above: Performed By: #### A 1C #### [facility] [address] [address] [address] Brady Sanders LIPID PROFILEon 03-07-2022 CHOL-HDL RATIO NORM SEE BELOW Normal [facility] Comment on above: Result Comment: 3.3 - 4.4 LOW RISK 4.4 - 7.1 AVERAGE RISK 7.1 - 11.0 MODERATE RISK >11.0 HIGH RISK Performed By: #### L JORDON GARRETT, CMP #### [facility] [address] [address] [address] Brady Sanders Cholesterol [Mass/Vol] 136 mg/dL Normal <=200 [facility] Comment on above: Performed By: #### L JORDON GARRETT, CMP #### [facility] [address] [address] [address] Brady Sanders Cholesterol in HDL [Mass/Vol] 26 mg/dL Critically low 40-60 [facility] Comment on above: Performed By: #### L JORDON GARRETT, CMP #### [facility] [address] [address] [address] Brady Sanders Cholesterol in LDL [Mass/Vol] 77.2 mg/dL Normal [facility] Comment on above: Performed By: #### L JORDON GARRETT, CMP #### [facility] [address] [address] [address] Brady Sanders Cholesterol.total/C holesterol in HDL [Mass ratio] 5.2 {ratio} Normal [facility] Comment on above: Performed By: #### L JORDON GARRETT, CMP #### [facility] [address] [address] [address] Brady Sanders HDL NORMAL > or = 60 mg/dl - LO W CARDIOVASCULAR RISK <40 mg/dl - HIGH CARDIOVASCULAR RISK Normal [facility] Comment on above: Performed By: #### L JORDON GARRETT, CMP #### [facility] [address] [address] [address] Brady Sanders LDL CALC NORMAL SEE BELOW Normal [facility] Comment on above: Result Comment: <100 mg/dl OPTIMAL 100 - 129 mg/dl NEAR OR ABOVE OPTIMAL 130 - 159 mg/dl BORDERLINE HIGH 160 - 189 mg/dl HIGH >190 mg/dl VERY HIGH Performed By: #### L JORDON GARRETT, CMP #### [facility] [address] [address] [address] Brady Sanders Triglyceride [Mass/Vol] 164 mg/dL Critically high <=150 [facility] Comment on above: Performed By: #### L JORDON GARRETT, CMP #### [facility] [address] [address] [address] Brady Sanders VLDL CALC 32.8 mg/dL Normal [facility] Comment on above: Performed By: #### L JORDON GARRETT, CMP #### [facility] [address] [address] [address] Brady Sanders MICROALBUMIN, RAND URon 02-21 mALB <1.3 Normal <=30.0 [facility] Comment on above: Performed By: #### L JORDON GARRETT, CMP #### [facility] [address] [address] [address] Brady Sanders PROF 14(COMP METB)on 022 Albumin [Mass/Vol] 3.8 g/dL Normal 3.4-5.0 [facility] Comment on above: Performed By: #### L JORDON GARRETT, CMP #### [facility] [address] [address] [address] Brady Sanders Albumin/Globulin [Mass ratio] 1.0 {ratio} Normal [facility] Comment on above: Performed By: #### L IPA, JORDON, CMP #### [facility] [address] [address] [address] Brady Sanders ALP [Catalytic activity/Vol] 102 U/L Normal 46-116 [facility] Comment on above: Performed By: #### L IPA, JORDON, CMP #### [facility] [address] [address] [address] Brady Sanders ALT [Catalytic activity/Vol] 41 U/L Normal 16-63 [facility] Comment on above: Performed By: #### L IPA, JORDON, CMP #### [facility] [address] [address] [address] Brady Sanders Anion gap [Moles/Vol] 14.7 mmol/L Normal [facility] Comment on above: Performed By: #### L IPA, JORDON, CMP #### [facility] [address] [address] [address] Brady Sanders AST [Catalytic activity/Vol] 24 U/L Normal 15-37 [facility] Comment on above: Performed By: #### L IPA, JORDON, CMP #### [facility] [address] [address] [address] Brady Sanders Bilirubin [Mass/Vol] 0.4 mg/dL Normal 0.2-1.0 [facility] Comment on above: Performed By: #### L IPA, JORDON, CMP #### [facility] [address] [address] [address] Brady Sanders Calcium [Mass/Vol] 8.8 mg/dL Normal 8.5-10.1 [facility] Comment on above: Performed By: #### L IPA, JORDON, CMP #### [facility] [address] [address] [address] Brady Sanders Chloride [Moles/Vol] 99 mmol/L Normal 98-107 [facility] Comment on above: Performed By: #### L IPA, JORDON, CMP #### [facility] [address] [address] [address] Brady Sanders CO2 [Moles/Vol] 26.8 mmol/L Normal 21.0-32.0 [facility] Comment on above: Performed By: #### L IPA, JORDON, CMP #### [facility] [address] [address] [address] Brady Sanders Creatinine [Mass/Vol] 1.00 mg/dL Normal 0.70-1.30 [facility] Comment on above: Performed By: #### L IPA, JORDON, CMP #### [facility] [address] [address] [address] Brady Sanders EGFR-AF TAJIK >60 Normal >=60 [facility] Comment on above: Performed By: #### L IPA, JORDON, CMP #### [facility] [address] [address] [address] Brady Sanders EGFR-NON AF TAJIK >60 Normal >=60 [facility] Comment on above: Performed By: #### L IPA, JORDON, CMP #### [facility] [address] [address] [address] Brady Sanders Globulin (S) [Mass/Vol] 3.7 g/dL Normal [facility] Comment on above: Performed By: #### L IPA, JORDON, CMP #### [facility] [address] [address] [address] Brady Sanders Glucose [Mass/Vol] 317 mg/dL Critically high 74-106 [facility] Comment on above: Performed By: #### L IPA, JORDON, CMP #### [facility] [address] [address] [address] Brady Sanders Potassium [Moles/Vol] 3.5 mmol/L Normal 3.5-5.1 [facility] Comment on above: Performed By: #### L IPA, JORDON, CMP #### [facility] [address] [address] [address] Brady Sanders Protein [Mass/Vol] 7.5 g/dL Normal 6.4-8.2 [facility] Comment on above: Performed By: #### L IPA, JORDON, CMP #### [facility] [address] [address] [address] Brady Sanders Sodium [Moles/Vol] 137 mmol/L Normal 136-145 [facility] Comment on above: Performed By: #### L JORDON GARRETT CMP #### [facility] [address] [address] [address] Brady Sanders Urea nitrogen [Mass/Vol] 11.0 mg/dL Normal 7.0-18.0 [facility] Comment on above: Performed By: #### L JORDON GARRETT CMP #### [facility] [address] [address] [address] Brady Sanders Urea nitrogen/Creatinine [Mass ratio] 11.0 mg/mg Normal [facility] Comment on above: Performed By: #### L JORDON GARRETT CMP #### [facility] [address] [id number] Dr[address] Brady Sanders Urinalysis - AUTOMATEDon Appearance (U) clear [facility] Other Bilirubin Ql (U) Negative [employer] Other Color (U) medium tellow [employer] Other Glucose Ql (U) >1000 [facility] Other Hemoglobin Ql (U) trace [employer] Other Ketones Ql (U) Negative [facility] Other Leukocyte esterase Test strip Ql (U) trace [employer] [facility] Other Nitrite Ql (U) Negative [facility] Other pH (U) 5.5 [pH] [employer] [facility] Other Protein Ql (U) Negative [facility] Other Specific gravity (U) [Rel density] 1.015 [facility] [facility] Other Urobilinogen (U) [Mass/Vol] 0.2 mg/dL [employer] [facility] Other Urinalysis - AUTOMATED [employer] Other Urine Cultureon 10-10-2021 Bacteria identified Cx Nom (U) Reason for Exam Dysuria Urine >100,000 colonies/ml mixed bacterial skin contaminants 2 Days PERFORMED BY: [place] [id number] PATHOLOGIST MARKET DEVELOPMENT ANALYST TIA CORDOVA M.D. Normal [facility] Comment on above: Performed By: #### C UU #### [address] Bacteria identified Cx Nom (U) [employer] Other Quick Fluon 02-19-2021 FLUAV Ab CF (S) [Titer] Negative [employer] [facility] Other FLUBV Ab CF (S) [Titer] Negative [employer] [facility] Other Vital Signs Date Time Vital Sign Value Performing Clinician Facility 03-13-2022 18:15-0500 Body height 182.88 cm Mamie Sweetmond Other [facility] [facility] [facility] Other 03-13-2022 18:15-0500 Body mass index (BMI) [Ratio] 47.46 kg/m2 Mamie Kassandra Other [facility] [facility] [facility] Other 03-13-2022 18:15-0500 Body temperature 98 [degF] Mamie Kassandra Other [facility] [facility] [facility] Other 03-13-2022 18:15-0500 Body weight 158.76 kg Mamie Kassandra Other [facility] [facility] Other 03-13-2022 18:15-0500 Respiratory rate 18 /min Mamie Kassandra Other [facility] [facility] Other 03-13-2022 18:15-0500 SaO2% (BldA) [Mass fraction] 94 % Mamie Cannon Other [facility] [facility] Other 10-10-2021 10:30-0400 Body height 182.88 cm Mamie Cannon Other [facility] [facility] Other 10-10-2021 10:30-0400 Body mass index (BMI) [Ratio] 46.11 kg/m2 Mamie Cannon Other [facility] [facility] Other 10-10-2021 10:30-0400 Body temperature 98.1 [degF] Mamie Cannon Other [facility] [facility] Other 10-10-2021 10:30-0400 Body weight 154.22 kg Mamie Cannon Other [facility] [facility] Other 10-10-2021 10:30-0400 Diastolic blood pressure 95 mm[Hg] Mamie Cannon Other [facility] [facility] Other 10-10-2021 10:30-0400 Respiratory rate 20 /min Mamie Cannon Other [facility] [facility] Other 10-10-2021 10:30-0400 SaO2% (BldA) [Mass fraction] 98 % Mamie Cannon Other [facility] [facility] Other 10-10-2021 10:30-0400 Systolic blood pressure 158 mm[Hg] Mamie Sweetmond Other [facility] [facility] Other 05-10-2021 10:00-0500 Body height 182.88 cm Alexandra Dimas Other [facility] [facility] [facility] Other 05-10-2021 10:00-0500 Body mass index (BMI) [Ratio] 49.28 kg/m2 Alexandra Dimas Other [facility] [facility] Other 05-10-2021 10:00-0500 Body temperature 96.4 [degF] Alexandra Dimas Other [facility] [facility] [facility] Other 05-10-2021 10:00-0500 Body weight 164.84 kg Alexandra Dimas Other [facility] [facility] [facility] Other 05-10-2021 10:00-0500 Diastolic blood pressure 84 mm[Hg] Alexandra Dimas Other [facility] [facility] [facility] Other 05-10-2021 10:00-0500 Respiratory rate 18 /min Alexandra Dimas Other [facility] [facility] Other 05-10-2021 10:00-0500 SaO2% (BldA) [Mass fraction] 96 % Alexandra Dimas Other [facility] [facility] Other 05-10-2021 10:00-0500 Systolic blood pressure 147 mm[Hg] Alexandra Dimas Other [facility] [facility] [facility] Other 02-19-2021 10:00-0500 Body height 182.88 cm Alexandra Ginty Other [facility] [facility] Other 02-19-2021 10:00-0500 Body mass index (BMI) [Ratio] 48.82 kg/m2 Alexandra Ginty Other [facility] [facility] Other 02-19-2021 10:00-0500 Body temperature 96.4 [degF] Alexandra Ginty Other [facility] [facility] Other 02-19-2021 10:00-0500 Body weight 163.3 kg Alexandra Ginty Other [facility] [facility] [facility] Other 02-19-2021 10:00-0500 SaO2% (BldA) [Mass fraction] 95 % Alexandra Gill Other [facility] [facility] Other Encounters Encounter Date Encounter Type Care Provider Facility Start: 08-04-2023 End: 08-04-2023 ambulatory JEANNE ANKITA Not Available Start: 07-31-2023 End: 07-31-2023 ambulatory YIN FAWWAD Not Available Start: 07-24-2023 End: 08-23-2023 ambulatory [facility] Start: 07-14-2023 End: 07-14-2023 ambulatory YIN FAWWAD Not Available Start: 06-24-2023 End: 06-24-2023 ambulatory YIN FAWWAD Not Available Start: 06-23-2023 End: 07-23-2023 ambulatory [facility] Start: 06-05-2023 End: 06-05-2023 ambulatory YIN FAWWAD Not Available Start: 07-25-2022 End: 07-25-[address] GILBERT Rodriguez Facility:[facility] Start: 07-24-2022 End: 07-25-2022 ambulatory YIN H FAWWAD Facility:[facility] Start: 07-11-2022 End: 07-12-2022 ambulatory YIN H FAWWAD Facility:[facility] Start: 06-03-2022 End: 06-04-2022 ambulatory YIN H FAWWAD Facility:[facility] Start: 03-13-2022 End: 03-13-2022 ambulatory Mamie Cannon Other [facility] [facility] Other Start: 03-13-2022 Office outpatient vi sit 15 minutes Mamie Cannon [facility] Start: 03-07-2022 End: 03-08-2022 ambulatory YIN H FAWWAD Facility:[facility] Start: 10-10-2021 End: 10-10-2021 ambulatory Mamie Cannon Other [facility] [facility] Other Start: 10-10-2021 Office outpatient vi sit 15 minutes Mamie Kassandra [facility] Start: 10-10-2021 End: 10-10-2021 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 Mamie Kassandra Work Phone: [facility] [place] Start: 05-10-2021 End: 05-10-2021 ambulatory Alexandra Dimas Other [employer] [facility] Other Start: 05-10-2021 Office outpatient vi sit 15 minutes Alexandra Dimas [facility] Start: 02-19-2021 End: 02-19-2021 ambulatory Alexandra Ginty Other [employer] Other Start: 02-19-2021 Office outpatient vi sit 15 minutes Alexandra Ginty [facility] Plan of Treatment Date Care Activity Detail Author Bacteria identified in Urine by Culture [facility] Payers Date Payer Category Payer Unknown [id number] 2.16.84 [id number] 1973 Unknown [id number] 2.16.84 [id number] 1973 Unknown [id number] 2.16.84 [id number] 1973 Unknown [id number] 2.16.84 [id number] 1973 Unknown [id number] 2.16.84 [id number] 1973 Unknown [id number] 2.16.84 [id number] 1973 Unknown [id number] 2.16.84 [id number] 1973 Unknown [id number] 2.16.84 [id number] 1973 Unknown [id number] 2.16.84 [id number] 1973 Unknown [id number] 2.16.84 [id number] 1973 Unknown [id number] 2.16.8 [id number] 1973 Unknown [id number] 2.16.8 [id number] 1959 Unknown [id number] 2.16.8 [id number] Self-pay Self Pay [id number] Unknown Susan BC/BS [id number] Social History Date Type Detail Facility Unknown if ever smoked [employer] Other Sex Assigned At Sex Assigned At Bir th [employer] Other Start: 1975 Sex Assigned At Male [facility] Evaluation note 03-13-2022 Note Date & [...] no improvement in 2 to 3 days. [employer] Other Evaluation note 10-10-2021 Note Date & [...] the ER for worsening symptoms or concern [employer] Other Evaluation note 05-10-2021 Note Date & [...] Other [place] home care material was printed [employer] Other Evaluation note 02-19-2021 Note Date & [...] care instructions given in writting by [facility] Care At Home document [employer] Other Evaluation note Note Date & Type Note Facility Evaluation note No assessment information availa [facility] Work Phone: History general Narrative - Reported Note Date & Type Note Facility History general Narrative - Reported Type Medical History HTN Medical History Pre diabetic Medical History Anger issues Medical History Hyperlipidemia [employer] Other Chief Complaint and Reason for Visit [...] section and content) DATE CREATED AUTHOR 10/18/2021 [facility] DATE CREATED AUTHOR AUTHOR'S ORGANIZ ATION 08/01/2022 [facility] DATE CREATED AUTHOR AUTHOR'S ORGANIZ ATION 08/05/2023 [facility] EPIC DATE CREATED AUTHOR AUTHOR'S ORGANIZ ATION 08/24/2023 [facility] FOR RECORDS PERTAINING TO PATIENTS WHO ARE [...] BE BASED ON THE PRIMARY CLINICAL RECORDS. [facility] [employer] [facility]. provides no warranty or guarantee of the accuracy or completeness of information in this document.
--- NOTE | 2023-09-22 07:54 | XR_ITS ---
The [address] [address] Patient Name: KEVON BRENNER MRN: [id number] date: 1975 Sex: M Assigned Patient Location: LAB Current Patient Location: LAB Accession/Order Number: [id number] Exam Date: 09/22/2023 07:50 Report Date: 09/22/2023 12:55 At the request of: LINA ANDREWS Procedure: XR chest 2V EXAMINATION: XR chest 2V HISTORY: Pre Operative Cardiovascular and Respiratory Clearance COMPARISON: , CTA chest 03/07/2021 XR chest 07/03/2019 FINDINGS: LUNGS: 7 mm round nodule within lateral right midlung. Lungs otherwise clear. VASCULATURE: No increased pulmonary vasculature. PLEURA: No pneumothorax, effusion, or pleural thickening. CARDIAC: No cardiomegaly or cardiac silhouette abnormality. MEDIASTINUM: No visible mass or adenopathy. BONES: No fracture or visible bone lesion. OTHER: Negative. XR/XR chest 2V IMPRESSION: 1. New 7 mm nodule within lateral right midlung; nonspecific. Consider CT chest without contrast for further evaluation. 2. No appreciable acute infiltrates. Electronically authenticated by: MIKAYLA COVINGTON Date: 09/22/2023 12:55
[2023-09-22 08:16] LABS: Basophils Percent Auto 0.5 % (0.2-2.0); Eosinophils Absolute Auto 0.1 10^3/uL (0.0-0.7); Eosinophils Percent Auto 1.6 % (0.9-7.0); Hematocrit 40.5 % (42.0-54.0); Hemoglobin 13.6 g/dL (14.0-18.0); Immature Granulocytes Abs Auto 0.02 10^3/uL (0.00-0.03); Immature Granulocytes Pct Auto 0.2 % (0.0-0.5); Lymphocytes Absolute Auto 1.9 10^3/uL (1.2-3.8); Lymphocytes Percent Auto 21.8 % (20.5-60.0); Mean Corpuscular HGB Conc 33.6 g/dL (29.9-35.2); Mean Corpuscular Hemoglobin 29.2 pg (25.9-34.0); Mean Corpuscular Volume 87.1 fL (80.0-94.0); Mean Platelet Volume 9.7 fL (9.5-13.5); Monocytes Absolute Auto 0.6 10^3/uL (0.3-0.8); Monocytes Percent Auto 6.7 % (1.7-12.0); Neutrophils Absolute Auto 5.9 10^3/uL (1.4-6.5); Neutrophils Percent Auto 69.2 % (43.0-75.0); Platelet Count 207 10^3/uL (150-450); Red Blood Count 4.65 10^6/uL (4.70-6.10); Red Cell Distribution Width 12.6 % (11.0-15.0); White Blood Count 8.5 10^3/uL (4.0-11.0)
[2023-09-22 09:04] LABS: Calcium 8.6 mg/dL (8.5-10.1); Carbon Dioxide 29.4 mmol/L (21.0-32.0); Chloride 103 mmol/L (98-107); Estimated GFR (African America >60 (>=60); Estimated GFR (Non-African Ame >60 (>=60); Glucose 124 mg/dL (74-106); Potassium 3.4 mmol/L (3.5-5.1); Sodium 142 mmol/L (136-145)
== END 2023-09-22 07:19 | disposition home or self-care (01) ==
LOC: LAB 07:20
PROVIDERS: PCP Internal Medicine; Visit Provider Student in an Organized Health Care Education/Training Program
DX: Z01.810 Encounter for preprocedural cardiovascular examination (principal); E11.9 Type 2 diabetes mellitus without complications; G56.21 Lesion of ulnar nerve, right upper limb; Z22.322 Carrier or suspected carrier of Methicillin resistant Staphylococcus aureus; Z01.812 Encounter for preprocedural laboratory examination; Z01.811 Encounter for preprocedural respiratory examination
CPT/HCPCS: 36415; 71046; 80048; 83036; 85025; 87081; 87150; 87186; 93005

== ENCOUNTER 2023-09-22 07:22 | Outpatient (OUT) | payer OTHER, SELFPAY ==
--- OUTSIDE RECORDS SUMMARY | 2023-09-22 07:28 | XMS_ITS ---
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 Name Role Phone Alexandra Gill Unavailable DimasAlexandra martínez Unavailable JUSTO Cannon Attending Provider [phone] Mamie Cannon Unavailable FAWWAD, YIN H Admitting [...] Unavailable FAWWAD, YIN H Primary Care Unavailable LUIZA, KIM Consulting Unavailable FAWWAD, YIN H Admitting Unavailable FAWWAD, YIN H Attending Unavailable FAWWAD, YIN H Consulting Unavailable FAWWAD, YIN Attending Unavailable FAWWAD, YIN Attending Unavailable FAWWAD, YIN Attending Unavailable FAWWAD, YIN Attending Unavailable JEANNE LUCIANO Attending Unavailable DEBRA CHAMORRO Referring Unavailable MIKAYLA WESTBROOK Referring Unavailable FAWWAD, YIN Primary Care Unavailable WARRIORS MARKMIKAYLA Referring Unavailable FAWWAD, YIN Primary Care Unavailable Encounters Encounter Date Encounter Type Care Provider Facility Start: 08-04-2023 End: 08-04-2023 ambulatory JEANNE LUCIANO Not Available Start: 07-31-2023 End: 07-31-2023 ambulatory FAWWAD Not Available Start: 07-24-2023 End: 08-23-2023 ambulatory MIKAYLA Chamorro [facility] Start: 07-14-2023 End: 07-14-2023 ambulatory YIN FAWWAD Not Available Start: 06-24-2023 End: 06-24-2023 ambulatory YIN FAWWAD Not Available Start: 06-23-2023 End: 07-23-2023 ambulatory MIKAYLA Chamorro [facility] Start: 06-05-2023 End: 06-05-2023 ambulatory YIN FAWWAD Not Available Start: 07-25-2022 End: 07-25-[address] GILBERT GARCIA . Facility:[facility] Start: 07-24-2022 End: 07-25-2022 ambulatory YIN H FAWWAD Facility:[facility] Start: 07-11-2022 End: 07-12-2022 ambulatory YIN H FAWWAD Facility:[facility] Start: 06-03-2022 End: 06-04-2022 ambulatory YIN H FAWWAD Facility:[facility] Start: 03-13-2022 End: 03-13-2022 ambulatory Mamie Cannon [facility] [employer] Other Start: 03-13-2022 Office outpatient vi sit 15 minutes Mamie Kassandra [facility] Start: 03-07-2022 End: 03-08-2022 ambulatory YIN H FAWWAD Facility:[facility] Start: 10-10-2021 End: 10-10-2021 ambulatory Mamie Kassandra Other [employer] Other Start: 10-10-2021 Office outpatient vi sit 15 minutes Mamie Kassandra [facility] Start: 10-10-2021 End: 10-10-2021 Departed Referred JUSTO Cannon Work Phone: [facility] [place] Start: 05-10-2021 End: 05-10-2021 ambulatory Alexandra Dimas Other [employer] Other Start: 05-10-2021 Office outpatient vi sit 15 minutes Alexandra Dimas [facility] Start: 02-19-2021 End: 02-19-2021 ambulatory Alexandra Gill Other [employer] Other Start: 02-19-2021 Office outpatient vi sit 15 minutes Alexandra Hannantsusan [facility] Medications Current Medications Medication Drug Class(es) Dates Sig (Normalized) Sig (Original) [id number] 200 actuat albuterol 0.09 mg/actuat metered dose [...] capsule (6 sources) Cephalosporin Antibacterial Start: 10-11-19 22 take 1 capsule by mouth every twelve [...] 05-26-2018 Rocephin 500 mg May, 1 g Payers Date Payer Category Payer Unknown [id number] .16.84 [id number] 1975 Unknown [id number] 2.16.84 [id number] 1975 Unknown [id number] .16.84 [id number] 1975 Unknown [id number] 2.16.84 [id number] 1975 Unknown [id number] 2.16.84 [id number] 1975 Unknown [id number] 2.16.84 [id number] 1975 Unknown [id number] 2.16.84 [id number] 1975 Unknown [id number] 2.16.84 [id number] 1975 Unknown [id number] 2.16.84 [id number] 1975 Unknown [id number] 2.16.84 [id number] 1975 Unknown [id number] 2.16.8 [id number] 1975 Unknown [id number] 2.16.8 [id number] 1959 Unknown [id number] 2.16.8 [id number] Self-pay Self Pay [id number] Unknown Susan BC/JM [id number] Plan of Treatment Date Care Activity Detail Author Bacteria identified in Urine by Culture [facility] Problems Active Problems Problem Classification Problem Date [...] vomiting, unspecified] Episodic Other aftercare (1 source) [facility] (current) use of aspirin; Translations: [INTERMEDIATE CURRENT USE OF ASPIRIN] Onset: 07-29-2022 Episodic Other aftercare (1 source) 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 Brady Sanders CBC AUTO DIFFon 07-25-2022 BASO # 0.0 103/ul Normal 0.0-0.1 [facility] Comment on above: Performed By: #### C BC #### [facility] [address] [place] [address] Dr. Brady Sanders Basophils/100 WBC (Bld) 0.4 % Normal 0.2-2.0 [facility] Comment on above: Performed By: #### C BC #### [facility] [address] [place] [address] Dr. Brady Sanders EO # 0.1 103/ul Normal 0.0-0.7 [facility] Comment on above: Performed By: #### C BC #### [facility] [address] [place] [address] Dr. Brady Sanders Eosinophils/100 WBC (Bld) 1.5 % Normal 0.9-7.0 [facility] Comment on above: Performed By: #### C BC #### [facility] [address] [place] [address] Dr. Brady Sanders Erythrocyte distribution width (RBC) [Ratio] 13.2 % Normal 11.0-15.0 [facility] Comment on above: Performed By: #### C BC #### [facility] [address] [place] [address] Dr. Brady Sanders Hematocrit (Bld) [Volume fraction] 41.0 % Critically low 42.0-54.0 [facility] Comment on above: Performed By: #### C BC #### [facility] [address] [place] [address] Dr. Brady Sanders Hemoglobin (Bld) [Mass/Vol] 13.8 g/dL Critically low 14.0-18.0 [facility] Comment on above: Performed By: #### C BC #### [facility] [address] [place] [address] Dr. Brady Sanders IG # 0.03 10e3/ul Normal 0.00-0.03 [facility] Comment on above: Performed By: #### C BC #### [facility] [address] [place] [address] Dr. Brady Sanders IG % 0.4 % Normal 0.0-0.5 [facility] Comment on above: Performed By: #### C BC #### [facility] [address] [place] [address] Dr. Brady Sanders LYMPH # 1.8 103/ul Normal 1.2-3.8 [facility] Comment on above: Performed By: #### C BC #### [facility] [address] [place] [address] Dr. Brady Sanders Lymphocytes/100 WBC (Bld) 21.4 % Normal 20.5-60.0 [facility] Comment on above: Performed By: #### C BC #### [facility] [address] [place] [address] Dr. Brady Sanders MANUAL DIFF REQ NO Normal [facility] Comment on above: Performed By: #### C BC #### [facility] [address] [place] [address] Dr. Brady Sanders MCH (RBC) [Entitic mass] 28.1 pg Normal 25.9-34.0 [facility] Comment on above: Performed By: #### C BC #### [facility] [address] [place] [address] Dr. Brady Sanders MCHC (RBC) [Mass/Vol] 33.7 g/dL Normal 29.9-35.2 [facility] Comment on above: Performed By: #### C BC #### [facility] [address] [place] [address] Dr. Brady Sanders MCV (RBC) [Entitic vol] 83.5 fL Normal 80.0-94.0 [facility] Comment on above: Performed By: #### C BC #### [facility] [address] [place] [address] Dr. Brady Sanders MONO # 0.5 103/ul Normal 0.3-0.8 [facility] Comment on above: Performed By: #### C BC #### [facility] [address] [place] [address] Dr. Brady Sanders Monocytes/100 WBC (Bld) 6.2 % Normal 1.7-12.0 [facility] Comment on above: Performed By: #### C BC #### [facility] [address] [place] [address] Dr. Brady Sanders NEUT # 5.9 103/ul Normal 1.4-6.5 [facility] Comment on above: Performed By: #### C BC #### [facility] [address] [place] [address] Dr. Brady Sanders Neutrophils/100 WBC (Bld) 70.1 % Normal 43.0-75.0 [facility] Comment on above: Performed By: #### C BC #### [facility] [address] [place] [address] Dr. Brady Sanders Platelet mean volume (Bld) [Entitic vol] 9.6 fL Normal 9.5-13.5 [facility] Comment on above: Performed By: #### C BC #### [facility] [address] [place] [address] Dr. Brady Sanders PLT 216 103/ul Normal 150-450 [facility] Comment on above: Performed By: #### C BC #### [facility] [address] [place] [address] Dr. Brady Sanders RBC 4.91 106/ul Normal 4.70-6.10 [facility] Comment on above: Performed By: #### C BC #### [facility] [address] [place] [address] Dr. Brady Sanders WBC 8.4 103/ul Normal 4.0-11.0 [facility] Comment on above: Performed By: #### C BC #### [facility] [address] [place] [address] ABD/PELV W CONon [...] by: KAVIN BRIONES Date: 2022-07-25 10:58 Normal [facility] LIPASEon 07-25-2022 Lipase [Catalytic activity/Vol] 96.0 U/L Normal 73.0-393.0 [facility] Comment on above: Performed By: #### L JORDON GARRETT, CMP #### [facility] [address] [place] [address] Dr. Brady Sanders PROF 14(COMP METB)on 023 Albumin [Mass/Vol] 3.4 g/dL Normal 3.4-5.0 [facility] Comment on above: Performed By: #### L GERRY JORDON, CMP #### [facility] [address] [place] [address] Dr. Brady Sanders Albumin/Globulin [Mass ratio] 0.9 {ratio} Normal [facility] Comment on above: Performed By: #### L GERRY JORDON, CMP #### [facility] [address] [place] [address] Dr. Brady Sanders ALP [Catalytic activity/Vol] 88 U/L Normal 46-116 [facility] Comment on above: Performed By: #### L GERRY JORDON, CMP #### [facility] [address] [place] [address] Dr. Brady Sanders ALT [Catalytic activity/Vol] 27 U/L Normal 16-63 [facility] Comment on above: Performed By: #### L GERRY JORDON, CMP #### [facility] [address] [place] [address] Dr. Brady Sanders Anion gap [Moles/Vol] 9.2 mmol/L Normal [facility] Comment on above: Performed By: #### L JORDON GARRETT, CMP #### [facility] [address] [place] [address] Dr. Brady Sanders AST [Catalytic activity/Vol] 18 U/L Normal 15-37 [facility] Comment on above: Performed By: #### L JORDON GARRETT, CMP #### [facility] [address] [place] [address] Dr. Brady Sanders Bilirubin [Mass/Vol] 0.4 mg/dL Normal 0.2-1.0 [facility] Comment on above: Performed By: #### L JORDON GARRETT, CMP #### [facility] [address] [place] [address] Dr. Brady Sanders Calcium [Mass/Vol] 8.5 mg/dL Normal 8.5-10.1 [facility] Comment on above: Performed By: #### L JORDON GARRETT, CMP #### [facility] [address] [place] [address] Dr. Brady Sandesr Chloride [Moles/Vol] 103 mmol/L Normal 98-107 [facility] Comment on above: Performed By: #### L JORDON GARRETT, CMP #### [facility] [address] [place] [address] Dr. Brady Sanders CO2 [Moles/Vol] 31.1 mmol/L Normal 21.0-32.0 [facility] Comment on above: Performed By: #### L JORDON GARRETT, CMP #### [facility] [address] [place] [address] Dr. Brady Sanders Creatinine [Mass/Vol] 0.79 mg/dL Normal 0.70-1.30 [facility] Comment on above: Performed By: #### L JORDON GARRETT, CMP #### [facility] [address] [place] [address] Dr. Brady Sanders EGFR-AF BHUTANESE >60 Normal >=60 [facility] Comment on above: Performed By: #### L JORDON GARRETT, CMP #### [facility] [address] [address] [address] Brady Sanders EGFR-NON AF BHUTANESE >60 Normal >=60 [facility] Comment on above: Performed By: #### L JORDON GARRETT, CMP #### [facility] [address] [address] [address] Brady Sanders Globulin (S) [Mass/Vol] 3.8 g/dL Normal [facility] Comment on above: Performed By: #### L JORDON GARRETT, CMP #### [facility] [address] [address] [address] Brady Sanders Glucose [Mass/Vol] 140 mg/dL Critically high 74-[address] [facility] Comment on above: Performed By: #### L JORDON GARRETT, CMP #### [facility] [address] [place] [address] Dr. Brady Sanders Potassium [Moles/Vol] 3.3 mmol/L Critically low 3.5-5.1 [facility] Comment on above: Performed By: #### L JORDON GARRETT, CMP #### [facility] [address] [address] [address] Brady Sanders Protein [Mass/Vol] 7.2 g/dL Normal 6.4-8.2 [facility] Comment on above: Performed By: #### L JORDON GARRETT, CMP #### [facility] [address] [place] [address] Dr. Brady Sanders Sodium [Moles/Vol] 140 mmol/L Normal 136-145 [facility] Comment on above: Performed By: #### L JORDON GARRETT, CMP #### [facility] [address] [place] [address] Dr. Brady Sanders Urea nitrogen [Mass/Vol] 10.0 mg/dL Normal 7.0-18.0 [facility] Comment on above: Performed By: #### L JORDON GARRETT, CMP #### [facility] [address] [address] [address] Brady Sanders Urea nitrogen/Creatinine [Mass ratio] 12.7 mg/mg Normal [facility] Comment on above: Performed By: #### L JORDON GARRETT, CMP #### [facility] [address] [address] [address] Brady Sanders NM HEPATOBILIARY SCAN W EFon 07-24-2022 NM HEPATOBILIARY SCAN W EF HIDA SCAN WITH GALLBLADDER EJECTION FRACTION HISTORY: Abdominal Pain. COMPARISON: Ultrasound 07/11/2022. METHOD: Following IV injection of 5. mCi of [id number] , anterior imaging of the abdomen was [...] by: KIM JARRETT Date: 2022-07-24 09:14 Normal [facility] US SINGLE QUAD RT UPPERon US [...] by: MIKAYLA COV[place] Date: 2022-07-11 11:55 Normal [facility] GLYCOHEMOGLOBIN A1Con 2022 ADA RECOMMENDATION SEE BELOW Normal [facility] Comment on above: Result Comment: ADA RECOMMENDED LIMIT 4.0 - 6.0 ADA THERAPEUTIC TARGET < 7.0 ACTION SUGGESTED > 7.0 Performed By: #### A 1C #### [facility] [address] [place] [address] Dr. Brady Sanders Glucose [Mass/Vol] 143 mg/dL Normal [facility] Comment on above: Performed By: #### A 1C #### [facility] [address] [place] [address] Dr. Brady Sanders HbA1c (Bld) [Mass fraction] 6.6 % Critically high 4.5-6.2 [facility] Comment on above: Performed By: #### A 1C #### [facility] [address] [place] [address] Dr. Brady Sanders COVID + FLU Quick Testingon 03-13-2022 SARS-CoV-2 (COVID-19) RNA ADELINA+probe Ql (Unsp spec) Positive [facility] Other COVID + FLU Quick Testing Negative [facility] Other CBC AUTO DIFFon 03-07-2022 BASO # 0.0 103/ul Normal 0.0-0.1 [facility] Comment on above: Performed By: #### C BC #### [facility] [address] [place] [address] Dr. Brady Sanders Basophils/100 WBC (Bld) 0.5 % Normal 0.2-2.0 [facility] Comment on above: Performed By: #### C BC #### [facility] [address] [place] [address] Dr. Brady Sanders EO # 0.1 103/ul Normal 0.0-0.7 [facility] Comment on above: Performed By: #### C BC #### [facility] [address] [place] [address] Dr. Brady Sanders Eosinophils/100 WBC (Bld) 1.8 % Normal 0.9-7.0 [facility] Comment on above: Performed By: #### C BC #### [facility] [address] [place] [address] Dr. Brady Sanders Erythrocyte distribution width (RBC) [Ratio] 13.5 % Normal 11.0-15.0 [facility] Comment on above: Performed By: #### C BC #### [facility] [address] [place] [address] Dr. Brady Sanders Hematocrit (Bld) [Volume fraction] 46.5 % Normal 42.0-54.0 [facility] Comment on above: Performed By: #### C BC #### [facility] [address] [place] [address] Dr. Brady Sanders Hemoglobin (Bld) [Mass/Vol] 15.6 g/dL Normal 14.0-18.0 [facility] Comment on above: Performed By: #### C BC #### [facility] [address] [place] [address] Dr. Brady Sanders IG # 0.02 10e3/ul Normal 0.00-0.03 [facility] Comment on above: Performed By: #### C BC #### [facility] [address] [place] [address] Dr. Brady Sanders IG % 0.3 % Normal 0.0-0.5 [facility] Comment on above: Performed By: #### C BC #### [facility] [address] [place] [address] Dr. Brady Sanders LYMPH # 1.8 103/ul Normal 1.2-3.8 [facility] Comment on above: Performed By: #### C BC #### [facility] [address] [place] [address] Dr. Brady Sanders Lymphocytes/100 WBC (Bld) 22.3 % Normal 20.5-60.0 [facility] Comment on above: Performed By: #### C BC #### [facility] [address] [place] [address] Dr. Brady Sanders MANUAL DIFF REQ NO Normal [facility] Comment on above: Performed By: #### C BC #### [facility] [address] [place] [address] Dr. Brady Sanders MCH (RBC) [Entitic mass] 28.0 pg Normal 25.9-34.0 [facility] Comment on above: Performed By: #### C BC #### [facility] [address] [place], [place] [id number] Dr. Brady Sanders MCHC (RBC) [Mass/Vol] 33.5 g/dL Normal 29.9-35.2 [facility] Comment on above: Performed By: #### C BC #### [facility] [address] [place] [address] Dr. Brady Sanders MCV (RBC) [Entitic vol] 83.3 fL Normal 80.0-94.0 [facility] Comment on above: Performed By: #### C BC #### [facility] [address] [place] [address] Dr. Brady Sanders MONO # 0.5 103/ul Normal 0.3-0.8 [facility] Comment on above: Performed By: #### C BC #### [facility] [address] [place] [address] Dr. Brady Sanders Monocytes/100 WBC (Bld) 6.1 % Normal 1.7-12.0 [facility] Comment on above: Performed By: #### C BC #### [facility] [address] [place] [address] Dr. Brady Sanders NEUT # 5.4 103/ul Normal 1.4-6.5 [facility] Comment on above: Performed By: #### C BC #### [facility] [address] [place] [address] Dr. Brady Sanders Neutrophils/100 WBC (Bld) 69.0 % Normal 43.0-75.0 [facility] Comment on above: Performed By: #### C BC #### [facility] [address] [place] [address] Dr. Brady Sanders Platelet mean volume (Bld) [Entitic vol] 10.3 fL Normal 9.5-13.5 [facility] Comment on above: Performed By: #### C BC #### [facility] [address] [place] [address] Dr. Brady Sanders PLT 230 103/ul Normal 150-450 [facility] Comment on above: Performed By: #### C BC #### [facility] [address] [place] [address] Dr. Brady Sanders RBC 5.58 106/ul Normal 4.70-6.10 [facility] Comment on above: Performed By: #### C BC #### [facility] [address] [place] [address] Dr. Brady Sanders WBC 7.9 103/ul Normal 4.0-11.0 [facility] Comment on above: Performed By: #### C BC #### [facility] [address] [place] [address] Dr. Brady Sanders GLYCOHEMOGLOBIN A1Con 2021 ADA RECOMMENDATION SEE BELOW Normal [facility] Comment on above: Result Comment: ADA RECOMMENDED LIMIT 4.0 - 6.0 ADA THERAPEUTIC TARGET < 7.0 ACTION SUGGESTED > 7.0 Performed By: #### A 1C #### [facility] [address] [place] [address] Dr. Brady Sanders Glucose [Mass/Vol] 200 mg/dL Normal [facility] Comment on above: Performed By: #### A 1C #### [facility] [address] [place] [address] Dr. Brady Sanders HbA1c (Bld) [Mass fraction] 8.6 % Critically high 4.5-6.2 [facility] Comment on above: Performed By: #### A 1C #### [facility] [address] [place] [address] Dr. Brady Sanders LIPID PROFILEon 03-07-2022 CHOL-HDL RATIO NORM SEE BELOW Normal [facility] Comment on above: Result Comment: 3.3 - 4.4 LOW RISK 4.4 - 7.1 AVERAGE RISK 7.1 - 11.0 MODERATE RISK >11.0 HIGH RISK Performed By: #### L JORDON GARRETT, CMP #### [facility] [address] [place] [address] Dr. Brady Sanders Cholesterol [Mass/Vol] 136 mg/dL Normal <=200 [facility] Comment on above: Performed By: #### L JORDON GARRETT, CMP #### [facility] [address] [place] [address] Dr. Brady Sanders Cholesterol in HDL [Mass/Vol] 26 mg/dL Critically low 40-60 [facility] Comment on above: Performed By: #### L JORDON GARRETT, CMP #### [facility] [address] [address] [address] Brady Sanders Cholesterol in LDL [Mass/Vol] 77.2 mg/dL Normal [facility] Comment on above: Performed By: #### L GERRY JORDON, CMP #### [facility] [address] [address] [address] Brady Sanders Cholesterol.total/C holesterol in HDL [Mass ratio] 5.2 {ratio} Normal [facility] Comment on above: Performed By: #### L JORDON GARRETT, CMP #### [facility] [address] [address] [address] Brady Sanders HDL NORMAL > or = 60 mg/dl - LO W CARDIOVASCULAR RISK <40 mg/dl - HIGH CARDIOVASCULAR RISK Normal [facility] Comment on above: Performed By: #### L JORDON GARRETT, CMP #### [facility] [address] [address] [address] Brady Sanders LDL CALC NORMAL SEE BELOW Normal [facility] Comment on above: Result Comment: <100 mg/dl OPTIMAL 100 - 129 mg/dl NEAR OR ABOVE OPTIMAL 130 - 159 mg/dl BORDERLINE HIGH 160 - 189 mg/dl HIGH >190 mg/dl VERY HIGH Performed By: #### L JORDON GARRETT, CMP #### [facility] [address] [address] [address] Brady Sanders Triglyceride [Mass/Vol] 164 mg/dL Critically high <=150 [facility] Comment on above: Performed By: #### L GERRY JORDON, CMP #### [facility] [address] [address] [address] Brady Sanders VLDL CALC 32.8 mg/dL Normal [facility] Comment on above: Performed By: #### L GERRY JORDON, CMP #### [facility] [address] [address] [address] Brady Sanders MICROALBUMIN, RAND URon 12-1 mALB <1.3 Normal <=30.0 [facility] Comment on above: Performed By: #### L IPA JORDON, CMP #### [facility] [address] [address] [address] Brady Sanders PROF 14(COMP METB)on 022 Albumin [Mass/Vol] 3.8 g/dL Normal 3.4-5.0 [facility] Comment on above: Performed By: #### L IPA JORDON, CMP #### [facility] [address] [address] [address] Brady Sanders Albumin/Globulin [Mass ratio] 1.0 {ratio} Normal [facility] Comment on above: Performed By: #### L IPA JORDON, CMP #### [facility] [address] [place] [address] Dr. Brady Sanders ALP [Catalytic activity/Vol] 102 U/L Normal 46-116 [facility] Comment on above: Performed By: #### L IPA JORDON, CMP #### [facility] [address] [place] [address] Dr. Brady Sanders ALT [Catalytic activity/Vol] 41 U/L Normal 16-63 [facility] Comment on above: Performed By: #### L IPA JORDON, CMP #### [facility] [address] [place] [address] Dr. Brady Sanders Anion gap [Moles/Vol] 14.7 mmol/L Normal [facility] Comment on above: Performed By: #### L IPA JORDON, CMP #### [facility] [address] [place] [address] Dr. Brady Sanders AST [Catalytic activity/Vol] 24 U/L Normal 15-37 [facility] Comment on above: Performed By: #### L IPA JORDON, CMP #### [facility] [address] [place] [address] Dr. Brady Sanders Bilirubin [Mass/Vol] 0.4 mg/dL Normal 0.2-1.0 [facility] Comment on above: Performed By: #### L IPA JORDON, CMP #### [facility] [address] [place] [address] Dr. Brady Sanders Calcium [Mass/Vol] 8.8 mg/dL Normal 8.5-10.1 [facility] Comment on above: Performed By: #### L JORDON GARRETT, CMP #### [facility] [address] [place] [address] Dr. Brady Sanders Chloride [Moles/Vol] 99 mmol/L Normal 98-107 [facility] Comment on above: Performed By: #### L JORDON GARRETT, CMP #### [facility] [address] [place] [address] Dr. Brady Sanders CO2 [Moles/Vol] 26.8 mmol/L Normal 21.0-32.0 [facility] Comment on above: Performed By: #### L JORDON GARRETT, CMP #### [facility] [address] [place] [address] Dr. Brady Sanders Creatinine [Mass/Vol] 1.00 mg/dL Normal 0.70-1.30 [facility] Comment on above: Performed By: #### L JORDON GARRETT, CMP #### [facility] [address] [place] [address] Dr. Brady Sanders EGFR-AF BHUTANESE >60 Normal >=60 [facility] Comment on above: Performed By: #### L JORDON GARRETT, CMP #### [facility] [address] [place] [address] Dr. Brady Sanders EGFR-NON AF BHUTANESE >60 Normal >=60 [facility] Comment on above: Performed By: #### L JORDON GARRETT, CMP #### [facility] [address] [place] [address] Dr. Brady Sanders Globulin (S) [Mass/Vol] 3.7 g/dL Normal [facility] Comment on above: Performed By: #### L JORDON GARRETT, CMP #### [facility] [address] [place] [address] Dr. Brady Sanders Glucose [Mass/Vol] 317 mg/dL Critically high 74-[address] [facility] Comment on above: Performed By: #### L JORDON GARRETT, CMP #### [facility] [address] [place] [address] Dr. Brady Sanders Potassium [Moles/Vol] 3.5 mmol/L Normal 3.5-5.1 [facility] Comment on above: Performed By: #### L JORDON GARRETT, CMP #### [facility] [address] [address] [address] Brady Sanders Protein [Mass/Vol] 7.5 g/dL Normal 6.4-8.2 [facility] Comment on above: Performed By: #### L JORDON GARRETT, CMP #### [facility] [address] [address] [address] Brady Sanders Sodium [Moles/Vol] 137 mmol/L Normal 136-145 [facility] Comment on above: Performed By: #### L JORDON GARRETT, CMP #### [facility] [address] [place] [address] Dr. Brady Sanders Urea nitrogen [Mass/Vol] 11.0 mg/dL Normal 7.0-18.0 [facility] Comment on above: Performed By: #### L JORDON GARRETT, CMP #### [facility] [address] [place] [address] Dr. Brady Sanders Urea nitrogen/Creatinine [Mass ratio] 11.0 mg/mg Normal [facility] Comment on above: Performed By: #### L JORDON GARRETT, CMP #### [facility] [address] [place] [address] Dr. Brady Sanders Urinalysis - AUTOMATEDon Appearance (U) clear [employer] Other Bilirubin Ql (U) Negative [employer] Other Color (U) medium tellow [employer] Other Glucose Ql (U) >1000 [employer] Other Hemoglobin Ql (U) trace [employer] Other Ketones Ql (U) Negative [employer] Other Leukocyte esterase Test strip Ql (U) trace [employer] Other Nitrite Ql (U) Negative [employer] Other pH (U) 5.5 [pH] [employer] Other Protein Ql (U) Negative [employer] Other Specific gravity (U) [Rel density] 1.015 [employer] Other Urobilinogen (U) [Mass/Vol] 0.2 mg/dL [employer] Other Urinalysis - AUTOMATED [employer] Other Urine Cultureon 10-10-2021 Bacteria identified Cx Nom (U) [employer] Other Bacteria identified Cx Nom (U) Reason for Exam Dysuria Urine >100,000 colonies/ml mixed bacterial skin contaminants 2 Days PERFORMED BY: [place] [id number] PATHOLOGIST WINDOWS [employer]ER ENGINEER TIA CORDOVA M.D. 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 Facility 03-13-2022 18:15-0500 Body height 182.88 cm Mamie Sweetmond Other [employer] Other 03-13-2022 18:15-0500 Body mass index (BMI) [Ratio] 47.46 kg/m2 Mamie Kassandra Other [employer] Other 03-13-2022 18:15-0500 Body temperature 98 [degF] Mamie Kassandra Other [employer] Other 03-13-2022 18:15-0500 Body weight 158.76 kg Mamie Kassandra Other [employer] Other 03-13-2022 18:15-0500 Respiratory rate 18 /min Mamie Kassandra Other [employer] Other 03-13-2022 18:15-0500 SaO2% (BldA) [Mass fraction] 94 % Mamie Kassandra Other [employer] Other 10-10-2021 10:30-0400 Body height 182.88 cm Mamie Kassandra Other [employer] Other 10-10-2021 10:30-0400 Body mass index (BMI) [Ratio] 46.11 kg/m2 Mamie Kassandra Other [employer] Other 10-10-2021 10:30-0400 Body temperature 98.1 [degF] Mamie Kassandra Other [employer] Other 10-10-2021 10:30-0400 Body weight 154.22 kg Mamie Kassandra Other [employer] Other 10-10-2021 10:30-0400 Diastolic blood pressure 95 mm[Hg] Mamie Kassandra Other [employer] Other 10-10-2021 10:30-0400 Respiratory rate 20 /min Mamie Cannon Other [employer] Other 10-10-2021 10:30-0400 SaO2% (BldA) [Mass fraction] 98 % Mamie Cannon Other [employer] Other 10-10-2021 10:30-0400 Systolic blood pressure 158 mm[Hg] Mamie Sweetmond Other [employer] Other 05-10-2021 10:00-0500 Body height 182.88 cm Alexandra Dimas Other [employer] Other 05-10-2021 10:00-0500 Body mass index (BMI) [Ratio] 49.28 kg/m2 Alexandra Dimas Other [employer] Other 05-10-2021 10:00-0500 Body temperature 96.4 [degF] Alexandra Dimas Other [employer] Other 05-10-2021 10:00-0500 Body weight 164.84 kg Alexandra Dimas Other [employer] Other 05-10-2021 10:00-0500 Diastolic blood pressure 84 mm[Hg] Alexandra Dimas Other [employer] Other 05-10-2021 10:00-0500 Respiratory rate 18 /min Aelxandra Dimas Other [employer] Other 05-10-2021 10:00-0500 SaO2% (BldA) [Mass fraction] 96 % Alexandra Dimas Other [employer] Other 2022 10:00-0500 Systolic blood pressure 147 mm[Hg] Alexandra Dimas Other [employer] Other 02-19-2021 10:00-0500 Body height 182.88 cm Alexandra Ginty Other [employer] Other 02-19-2021 10:00-0500 Body mass index (BMI) [Ratio] 48.82 kg/m2 Alexandra Ginty Other [employer] Other 02-19-2021 10:00-0500 Body temperature 96.4 [degF] Alexandra Hannanty Other [employer] Other 02-19-2021 10:00-0500 Body weight 163.3 kg Alexandra Ginty Other [employer] Other 02-19-2021 10:00-0500 SaO2% (BldA) [Mass fraction] 95 % Alexandra Ginty Other [employer] Other Evaluation note 03-13-2022 Note Date & Type [...] no improvement in 2 to 3 days. [employer] Other Evaluation note 10-10-2021 Note Date & [...] the ER for worsening symptoms or concern [employer] Other Evaluation note 05-10-2021 Note Date & [...] Other [facility] home care material was printed [employer] Other Evaluation note 02-19-2021 Note Date & [...] Patient care instructions given in writting by [facility] document [employer] Other Evaluation note Note Date & Type Note Facility Evaluation note No assessment information availa [facility] Work Phone: History general Narrative - Reported Note Date & Type Note Facility History general Narrative - Reported Type Medical History HTN Medical History Pre diabetic Medical History Anger issues Medical History Hyperlipidemia [employer] Other Chief Complaint and Reason for Visit [...] section and content) DATE CREATED AUTHOR 10/18/[address] [facility] DATE CREATED AUTHOR AUTHOR'S ORGANIZ ATION 08/01/2022 [facility] DATE CREATED AUTHOR AUTHOR'S ORGANIZ ATION 08/05/2023 [facility] DATE CREATED AUTHOR AUTHOR'S ORGANIZ ATION 08/24/2023 [facility] FOR RECORDS PERTAINING TO PATIENTS WHO [...] BE BASED ON THE PRIMARY CLINICAL RECORDS. [facility] [employer] [facility]. provides no warranty or guarantee of the accuracy or completeness of information in this document.
[2023-09-22 08:32] LABS: Estimated Average Glucose 137 mg/dL; Glycohemoglobin A1C 6.4 % (4.5-6.2)
== END 2023-09-22 07:23 | disposition home or self-care (01) ==
LOC: LAB 07:25
PROVIDERS: PCP Internal Medicine; Visit Provider Internal Medicine
DX: E11.9 Type 2 diabetes mellitus without complications (principal)
CPT/HCPCS: 36415; 83036

== ENCOUNTER 2023-10-23 10:42 | Outpatient (OUT) | payer OTHER, SELFPAY ==
--- OUTSIDE RECORDS SUMMARY | 2023-10-23 10:47 | XMS_ITS | CCD ---
Author Organization [facility] Care Team Providers Care Channel Lip Wetter Name Role Phone Alexandra Gill Unavailable Dimas, Alexandra Unavailable JUSTO Cannon Attending Provider [phone] Mamie Cannon Unavailable FAWWAD, YIN H Admitting [...] Primary Care Unavailable MIKAYLA WESTBROOK Referring Unavailable CHANNING HOMEDANNA RoqueIKH Primary Care Unavailable Medications Current Medications Medication Drug Class(es) Dates Sig (Normalized) Sig (Original) [id number] 200 actuat albuterol 0.09 mg/actuat metered dose [...] vomiting, unspecified] Episodic Other aftercare (1 source) 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 Brady Sanders CBC AUTO DIFFon 07-25-2022 BASO # 0.0 103/ul Normal 0.0-0.1 [facility] Comment on above: Performed By: #### C BC #### [facility] [address] [place] [address] Dr. Brady Sanders Basophils/100 WBC (Bld) 0.4 % Normal 0.2-2.0 [facility] Comment on above: Performed By: #### C BC #### [facility] [address] [place] [address] Dr. Brady Sanders EO # 0.1 103/ul Normal 0.0-0.7 [facility] Comment on above: Performed By: #### C BC #### [facility] [address] [place] [address] Dr. Brady Sanders Eosinophils/100 WBC (Bld) 1.5 % Normal 0.9-7.0 [facility] Comment on above: Performed By: #### C BC #### [facility] [address] [place] [address] Dr. Brady Sanders Erythrocyte distribution width (RBC) [Ratio] 13.2 % Normal 11.0-15.0 [facility] Comment on above: Performed By: #### C BC #### [facility] [address] [place] [address] Dr. Brady Sanders Hematocrit (Bld) [Volume fraction] 41.0 % Critically low 42.0-54.0 [facility] Comment on above: Performed By: #### C BC #### [facility] [address] [place] [address] Dr. Brady Sanders Hemoglobin (Bld) [Mass/Vol] 13.8 g/dL Critically low 14.0-18.0 [facility] Comment on above: Performed By: #### C BC #### [facility] [address] [place] [address] Dr. Brady Sanders IG # 0.03 10e3/ul Normal 0.00-0.03 [facility] Comment on above: Performed By: #### C BC #### [facility] [address] [place] [address] Dr. Brady Sanders IG % 0.4 % Normal 0.0-0.5 [facility] Comment on above: Performed By: #### C BC #### [facility] [address] [place] [address] Dr. Brady Sanders LYMPH # 1.8 103/ul Normal 1.2-3.8 [facility] Comment on above: Performed By: #### C BC #### [facility] [address] [place] [address] Dr. Brady Sanders Lymphocytes/100 WBC (Bld) 21.4 % Normal 20.5-60.0 [facility] Comment on above: Performed By: #### C BC #### [facility] [address] [place] [address] Dr. Brady Sanders MANUAL DIFF REQ NO Normal [facility] Comment on above: Performed By: #### C BC #### [facility] [address] [place] [address] Dr. Brady Sanders MCH (RBC) [Entitic mass] 28.1 pg Normal 25.9-34.0 [facility] Comment on above: Performed By: #### C BC #### [facility] [address] [place] [address] Dr. Brady Sanders MCHC (RBC) [Mass/Vol] 33.7 g/dL Normal 29.9-35.2 [facility] Comment on above: Performed By: #### C BC #### [facility] [address] [place] [address] Dr. Brady Sanders MCV (RBC) [Entitic vol] 83.5 fL Normal 80.0-94.0 [facility] Comment on above: Performed By: #### C BC #### [facility] [address] [place] [address] Dr. Brady Sanders MONO # 0.5 103/ul Normal 0.3-0.8 [facility] Comment on above: Performed By: #### C BC #### [facility] [address] [place] [address] Dr. Brady Sanders Monocytes/100 WBC (Bld) 6.2 % Normal 1.7-12.0 [facility] Comment on above: Performed By: #### C BC #### [facility] [address] [place] [address] Dr. Brady Sanders NEUT # 5.9 103/ul Normal 1.4-6.5 [facility] Comment on above: Performed By: #### C BC #### [facility] [address] [place] [address] Dr. Brady Sanders Neutrophils/100 WBC (Bld) 70.1 % Normal 43.0-75.0 [facility] Comment on above: Performed By: #### C BC #### [facility] [address] [place] [address] Dr. Brady Sanders Platelet mean volume (Bld) [Entitic vol] 9.6 fL Normal 9.5-13.5 [facility] Comment on above: Performed By: #### C BC #### [facility] [address], [place] [address] Dr. Brady Sanders PLT 216 103/ul Normal 150-450 [facility] Comment on above: Performed By: #### C BC #### [facility] [address] [place], [place] [address] Dr. Brady Sanders RBC 4.91 106/ul Normal 4.70-6.10 [facility] Comment on above: Performed By: #### C BC #### [facility] [address] [place], [place] [address] Dr. Brady Sanders WBC 8.4 103/ul Normal 4.0-11.0 [facility] Comment on above: Performed By: #### C BC #### [facility] [address], [place] [address] ABD/PELV W CONon [...] by: KAVIN BRIONES Date: 2022-07-25 10:58 Normal [facility] LIPASEon 07-25-2022 Lipase [Catalytic activity/Vol] 96.0 U/L Normal 73.0-393.0 [facility] Comment on above: Performed By: #### L IPA, JORDON, CMP #### [facility] [address] [address] [address] Brady Sanders PROF 14(COMP METB)on 023 Albumin [Mass/Vol] 3.4 g/dL Normal 3.4-5.0 [facility] Comment on above: Performed By: #### L IPA, JORDON, CMP #### [facility] [address] [address] [address] Brady Sanders Albumin/Globulin [Mass ratio] 0.9 {ratio} Normal [facility] Comment on above: Performed By: #### L IPA, JORDON, CMP #### [facility] [address] [place] [address] Dr. Brady Sanders ALP [Catalytic activity/Vol] 88 U/L Normal 46-116 [facility] Comment on above: Performed By: #### L IPA, JORDON, CMP #### [facility] [address] [place] [address] Dr. Brady Sanders ALT [Catalytic activity/Vol] 27 U/L Normal 16-63 [facility] Comment on above: Performed By: #### L IPA, JORDON, CMP #### [facility] [address] [address] [address] Brady Sanders Anion gap [Moles/Vol] 9.2 mmol/L Normal [facility] Comment on above: Performed By: #### L IPA, JORDON, CMP #### [facility] [address] [address] [address] Brady Sanders AST [Catalytic activity/Vol] 18 U/L Normal 15-37 [facility] Comment on above: Performed By: #### L IPA, JORDON, CMP #### [facility] [address] [place] [address] Dr. Brady Sanders Bilirubin [Mass/Vol] 0.4 mg/dL Normal 0.2-1.0 [facility] Comment on above: Performed By: #### L OJRDON GARRETT, CMP #### [facility] [address] [place] [address] Dr. Brady Sanders Calcium [Mass/Vol] 8.5 mg/dL Normal 8.5-10.1 [facility] Comment on above: Performed By: #### L GERRY JORDON, CMP #### [facility] [address] [place] [address] Dr. Brady Sanders Chloride [Moles/Vol] 103 mmol/L Normal 98-107 [facility] Comment on above: Performed By: #### L JORDON GARRETT, CMP #### [facility] [address] [place] [address] Dr. Brady Sanders CO2 [Moles/Vol] 31.1 mmol/L Normal 21.0-32.0 [facility] Comment on above: Performed By: #### L JORDON GARRETT, CMP #### [facility] [address] [place] [address] Dr. Brady Sanders Creatinine [Mass/Vol] 0.79 mg/dL Normal 0.70-1.30 [facility] Comment on above: Performed By: #### L JORDON GARRETT, CMP #### [facility] [address] [place] [address] Dr. Brady Sanders EGFR-AF SUDANESE >60 Normal >=60 [facility] Comment on above: Performed By: #### L JORDON GARRETT, CMP #### [facility] [address] [place] [address] Dr. Brady Sanders EGFR-NON AF SUDANESE >60 Normal >=60 [facility] Comment on above: Performed By: #### L JORDON GARRETT, CMP #### [facility] [address] [place] [address] Dr. Brady Sanders Globulin (S) [Mass/Vol] 3.8 g/dL Normal [facility] Comment on above: Performed By: #### L JORDON GARRETT, CMP #### [facility] [address] [place] [address] Dr. Brady Sanders Glucose [Mass/Vol] 140 mg/dL Critically high 74-106 T [facility] Comment on above: Performed By: #### L JORDON GARRETT, CMP #### [facility] [address] [place] [address] Dr. Brady Sanders Potassium [Moles/Vol] 3.3 mmol/L Critically low 3.5-5.1 [facility] Comment on above: Performed By: #### L JORDON GARRETT, CMP #### [facility] [address] [place] [address] Dr. Brady Sanders Protein [Mass/Vol] 7.2 g/dL Normal 6.4-8.2 [facility] Comment on above: Performed By: #### L JORDON GARRETT, CMP #### [facility] [address] [place] [address] Dr. Brady Sanders Sodium [Moles/Vol] 140 mmol/L Normal 136-145 [facility] Comment on above: Performed By: #### L JORDON GARRETT, CMP #### [facility] [address] [place] [address] Dr. Brady Sanders Urea nitrogen [Mass/Vol] 10.0 mg/dL Normal 7.0-18.0 [facility] Comment on above: Performed By: #### L JORDON GARRETT, CMP #### [facility] [address] [place] [address] Dr. Brady Sanders Urea nitrogen/Creatinine [Mass ratio] 12.7 mg/mg Normal [facility] Comment on above: Performed By: #### L JORDON GARRETT, CMP #### [facility] [address] [place] [address] Dr. Brady Sanders NM HEPATOBILIARY SCAN W EFon 07-24-2022 NM HEPATOBILIARY SCAN W EF HIDA SCAN WITH GALLBLADDER EJECTION FRACTION HISTORY: Abdominal Pain. COMPARISON: Ultrasound 07/11/2022. METHOD: Following IV injection of 5. mCi of [id number] , anterior imaging of the abdomen was [...] KIM JARRETT Date: 2022-07-24 09:14 Normal [facility] US SINGLE QUAD RT UPPERon US [...] MIKAYLA COVINGTON Date: 2022-07-11 11:55 Normal [facility] GLYCOHEMOGLOBIN A1Con 2022 ADA RECOMMENDATION SEE BELOW Normal [facility] Comment on above: Result Comment: ADA RECOMMENDED LIMIT 4.0 - 6.0 ADA THERAPEUTIC TARGET < 7.0 ACTION SUGGESTED > 7.0 Performed By: #### A 1C #### [facility] [address] [address] [address] Brady Sanders Glucose [Mass/Vol] 143 mg/dL Normal [facility] Comment on above: Performed By: #### A 1C #### [facility] [address] [address] [address] Brady Sanders HbA1c (Bld) [Mass fraction] 6.6 % Critically high 4.5-6.2 [facility] Comment on above: Performed By: #### A 1C #### [facility] [address] [address] [address] Brady Sanders COVID + FLU Quick Testingon 03-13-2022 SARS-CoV-2 (COVID-19) RNA ADELINA+probe Ql (Unsp spec) Positive [facility] Other COVID + FLU Quick Testing Negative [facility] [employer] Other CBC AUTO DIFFon 03-07-2022 BASO # 0.0 103/ul Normal 0.0-0.1 [facility] Comment on above: Performed By: #### C BC #### [facility] [address] [place] [address] Dr. Brady Sanders Basophils/100 WBC (Bld) 0.5 % Normal 0.2-2.0 [facility] Comment on above: Performed By: #### C BC #### [facility] [address] [place] [address] Dr. Brady Sanders EO # 0.1 103/ul Normal 0.0-0.7 [facility] Comment on above: Performed By: #### C BC #### [facility] [address] [place] [address] Dr. Brady Sanders Eosinophils/100 WBC (Bld) 1.8 % Normal 0.9-7.0 [facility] Comment on above: Performed By: #### C BC #### [facility] [address] [place] [address] Dr. Brady Sanders Erythrocyte distribution width (RBC) [Ratio] 13.5 % Normal 11.0-15.0 [facility] Comment on above: Performed By: #### C BC #### [facility] [address] [place] [address] Dr. Brady Sanders Hematocrit (Bld) [Volume fraction] 46.5 % Normal 42.0-54.0 [facility] Comment on above: Performed By: #### C BC #### [facility] [address] [place] [address] Dr. Brady Sanders Hemoglobin (Bld) [Mass/Vol] 15.6 g/dL Normal 14.0-18.0 [facility] Comment on above: Performed By: #### C BC #### [facility] [address] [place] [address] Dr. Brady Sanders IG # 0.02 10e3/ul Normal 0.00-0.03 [facility] Comment on above: Performed By: #### C BC #### [facility] [address] [place] [address] Dr. Brady Sanders IG % 0.3 % Normal 0.0-0.5 [facility] Comment on above: Performed By: #### C BC #### [facility] [address] [place] [address] Dr. Brady Sanders LYMPH # 1.8 103/ul Normal 1.2-3.8 [facility] Comment on above: Performed By: #### C BC #### [facility] [address] [place] [address] Dr. Brady Sanders Lymphocytes/100 WBC (Bld) 22.3 % Normal 20.5-60.0 [facility] Comment on above: Performed By: #### C BC #### [facility] [address] [place] [address] Dr. Brady Sanders MANUAL DIFF REQ NO Normal [facility] Comment on above: Performed By: #### C BC #### [facility] [address] [place] [address] Dr. Brady Sanders MCH (RBC) [Entitic mass] 28.0 pg Normal 25.9-34.0 [facility] Comment on above: Performed By: #### C BC #### [facility] [address] [place] [address] Dr. Brady Sanders MCHC (RBC) [Mass/Vol] 33.5 g/dL Normal 29.9-35.2 [facility] Comment on above: Performed By: #### C BC #### [facility] [address] [place] [address] Dr. Brady Sanders MCV (RBC) [Entitic vol] 83.3 fL Normal 80.0-94.0 [facility] Comment on above: Performed By: #### C BC #### [facility] [address] [place] [address] Dr. Brady Sanders MONO # 0.5 103/ul Normal 0.3-0.8 [facility] Comment on above: Performed By: #### C BC #### [facility] [address] [place] [address] Dr. Brady Sanders Monocytes/100 WBC (Bld) 6.1 % Normal 1.7-12.0 [facility] Comment on above: Performed By: #### C BC #### [facility] [address] [place] [address] Dr. Brady Sanders NEUT # 5.4 103/ul Normal 1.4-6.5 [facility] Comment on above: Performed By: #### C BC #### [facility] [address] [place] [address] Dr. Brady Sanders Neutrophils/100 WBC (Bld) 69.0 % Normal 43.0-75.0 [facility] Comment on above: Performed By: #### C BC #### [facility] [address] [place] [address] Dr. Brady Sanders Platelet mean volume (Bld) [Entitic vol] 10.3 fL Normal 9.5-13.5 [facility] Comment on above: Performed By: #### C BC #### [facility] [address] [place] [address] Dr. Brady Sanders PLT 230 103/ul Normal 150-450 [facility] Comment on above: Performed By: #### C BC #### [facility] [address] [place] [address] Dr. Brady Sanders RBC 5.58 106/ul Normal 4.70-6.10 [facility] Comment on above: Performed By: #### C BC #### [facility] [address] [place] [address] Dr. Brady Sanders WBC 7.9 103/ul Normal 4.0-11.0 [facility] Comment on above: Performed By: #### C BC #### [facility] [address] [place] [address] Dr. Brady Sanders GLYCOHEMOGLOBIN A1Con 2021 ADA RECOMMENDATION SEE BELOW Normal [facility] Comment on above: Result Comment: ADA RECOMMENDED LIMIT 4.0 - 6.0 ADA THERAPEUTIC TARGET < 7.0 ACTION SUGGESTED > 7.0 Performed By: #### A 1C #### [facility] [address] [address] [address] Brady Sanders Glucose [Mass/Vol] 200 mg/dL Normal [facility] Comment on above: Performed By: #### A 1C #### [facility] [address] [address] [address] Brady Sanders HbA1c (Bld) [Mass fraction] 8.6 % Critically high 4.5-6.2 [facility] Comment on above: Performed By: #### A 1C #### [facility] [address] [address] [address] Brady Sanders LIPID PROFILEon 03-07-2022 CHOL-HDL RATIO NORM SEE BELOW Normal [facility] Comment on above: Result Comment: 3.3 - 4.4 LOW RISK 4.4 - 7.1 AVERAGE RISK 7.1 - 11.0 MODERATE RISK >11.0 HIGH RISK Performed By: #### L JORDON GARRETT, CMP #### [facility] [address] [address] [address] Brady Sanders Cholesterol [Mass/Vol] 136 mg/dL Normal <=200 [facility] Comment on above: Performed By: #### L JORDON GARRETT, CMP #### [facility] [address] [address] [address] Brady Sanders Cholesterol in HDL [Mass/Vol] 26 mg/dL Critically low 40-60 [facility] Comment on above: Performed By: #### L JORDON GARRETT, CMP #### [facility] [address] [address] [address] Brady Sanders Cholesterol in LDL [Mass/Vol] 77.2 mg/dL Normal [facility] Comment on above: Performed By: #### L JORDON GARRETT, CMP #### [facility] [address] [address] [address] Brady Sanders Cholesterol.total/C holesterol in HDL [Mass ratio] 5.2 {ratio} Normal [facility] Comment on above: Performed By: #### L JORDON GARRETT, CMP #### [facility] [address] [address] [address] Brady Sanders HDL NORMAL > or = 60 mg/dl - LO W CARDIOVASCULAR RISK <40 mg/dl - HIGH CARDIOVASCULAR RISK Normal [facility] Comment on above: Performed By: #### L JORDON GARRETT, CMP #### [facility] [address] [address] [address] Brady Sanders LDL CALC NORMAL SEE BELOW Normal [facility] Comment on above: Result Comment: <100 mg/dl OPTIMAL 100 - 129 mg/dl NEAR OR ABOVE OPTIMAL 130 - 159 mg/dl BORDERLINE HIGH 160 - 189 mg/dl HIGH >190 mg/dl VERY HIGH Performed By: #### L JORDON GARRETT, CMP #### [facility] [address] [address] [address] Brady Sanders Triglyceride [Mass/Vol] 164 mg/dL Critically high <=150 [facility] Comment on above: Performed By: #### L JORDON GARRETT, CMP #### [facility] [address] [address] [address] Brady Sanders VLDL CALC 32.8 mg/dL Normal [facility] Comment on above: Performed By: #### L JORDON GARRETT, CMP #### [facility] [address] [address] [address] Brady Sanders MICROALBUMIN, RAND URon 02-21 mALB <1.3 Normal <=30.0 [facility] Comment on above: Performed By: #### L JORDON GARRETT, CMP #### [facility] [address] [address] [address] Brady Sanders PROF 14(COMP METB)on 022 Albumin [Mass/Vol] 3.8 g/dL Normal 3.4-5.0 [facility] Comment on above: Performed By: #### L JORDON GARRETT, CMP #### [facility] [address] [address] [address] Brady Sanders Albumin/Globulin [Mass ratio] 1.0 {ratio} Normal [facility] Comment on above: Performed By: #### L IPA, JORDON, CMP #### [facility] [address] [address] [address] Brady Sanders ALP [Catalytic activity/Vol] 102 U/L Normal 46-116 [facility] Comment on above: Performed By: #### L IPA, JORDON, CMP #### [facility] [address] [address] [address] Brady Sanders ALT [Catalytic activity/Vol] 41 U/L Normal 16-63 [facility] Comment on above: Performed By: #### L IPA, JORDON, CMP #### [facility] [address] [address] [address] Brady Sanders Anion gap [Moles/Vol] 14.7 mmol/L Normal [facility] Comment on above: Performed By: #### L IPA, JORDON, CMP #### [facility] [address] [address] [address] Brady Sanders AST [Catalytic activity/Vol] 24 U/L Normal 15-37 [facility] Comment on above: Performed By: #### L IPA, JORDON, CMP #### [facility] [address] [address] [address] Brady Sanders Bilirubin [Mass/Vol] 0.4 mg/dL Normal 0.2-1.0 [facility] Comment on above: Performed By: #### L IPA, JORDON, CMP #### [facility] [address] [address] [address] Brady Sanders Calcium [Mass/Vol] 8.8 mg/dL Normal 8.5-10.1 [facility] Comment on above: Performed By: #### L IPA, JORDON, CMP #### [facility] [address] [address] [address] Brady Sanders Chloride [Moles/Vol] 99 mmol/L Normal 98-107 [facility] Comment on above: Performed By: #### L IPA, JORDON, CMP #### [facility] [address] [address] [address] Brady Sanders CO2 [Moles/Vol] 26.8 mmol/L Normal 21.0-32.0 [facility] Comment on above: Performed By: #### L IPA, JORDON, CMP #### [facility] [address] [address] [address] Brady Sanders Creatinine [Mass/Vol] 1.00 mg/dL Normal 0.70-1.30 [facility] Comment on above: Performed By: #### L IPA, JORDON, CMP #### [facility] [address] [address] [address] Brady Sanders EGFR-AF SUDANESE >60 Normal >=60 [facility] Comment on above: Performed By: #### L IPA, JORDON, CMP #### [facility] [address] [address] [address] Brady Sanders EGFR-NON AF SUDANESE >60 Normal >=60 [facility] Comment on above: Performed By: #### L IPA, JORDON, CMP #### [facility] [address] [address] [address] Brady Sanders Globulin (S) [Mass/Vol] 3.7 g/dL Normal [facility] Comment on above: Performed By: #### L IPA, JORDON, CMP #### [facility] [address] [address] [address] Brady Sanders Glucose [Mass/Vol] 317 mg/dL Critically high 74-106 [facility] Comment on above: Performed By: #### L IPA, JORDON, CMP #### [facility] [address] [address] [address] Brady Sanders Potassium [Moles/Vol] 3.5 mmol/L Normal 3.5-5.1 [facility] Comment on above: Performed By: #### L IPA, JORDON, CMP #### [facility] [address] [address] [address] Brady Sanders Protein [Mass/Vol] 7.5 g/dL Normal 6.4-8.2 [facility] [facility] Comment on above: Performed By: #### L IPA, JORDON, CMP #### [facility] [address] [address] [address] Brady Sanders Sodium [Moles/Vol] 137 mmol/L Normal 136-145 [facility] Comment on above: Performed By: #### L JORDON GARRETT CMP #### [facility] [address] [address] [address] Brady Sanders Urea nitrogen [Mass/Vol] 11.0 mg/dL Normal 7.0-18.0 [facility] Comment on above: Performed By: #### L JORDON GARRETT CMP #### [facility] [address] [address] [address] Brady Sanders Urea nitrogen/Creatinine [Mass ratio] 11.0 mg/mg Normal [facility] Comment on above: Performed By: #### L JORDON GARRETT CMP #### [facility] [address] [address] [address] Brady Sanders Urinalysis - AUTOMATEDon Appearance (U) clear [facility] Other Bilirubin Ql (U) Negative [facility] Other Color (U) medium tellow [facility] Other Glucose Ql (U) >1000 [facility] Other Hemoglobin Ql (U) trace [facility] Other Ketones Ql (U) Negative [facility] Other Leukocyte esterase Test strip Ql (U) trace [facility] Other Nitrite Ql (U) Negative [facility] Other pH (U) 5.5 [pH] [facility] Other Protein Ql (U) Negative [facility] Other Specific gravity (U) [Rel density] 1.015 [facility] Other Urobilinogen (U) [Mass/Vol] 0.2 mg/dL [facility] Other Urinalysis - AUTOMATED [facility] Other Urine Cultureon 10-10-2021 Bacteria identified Cx Nom (U) Reason for Exam Dysuria Urine >100,000 colonies/ml mixed bacterial skin contaminants 2 Days PERFORMED BY: [place] [id number] PATHOLOGIST [employer] PROPERTY MANAGER TIA CORDOVA M.D. Normal [facility] Comment on above: Performed By: #### C UU #### [address] Bacteria identified Cx Nom (U) [facility] Other Quick Fluon 02-19-2021 FLUAV Ab CF (S) [Titer] Negative [facility] Other FLUBV Ab CF (S) [Titer] Negative [facility] Other Vital Signs Date Time Vital Sign Value Performing Clinician Facility 03-13-2022 18:15-0500 Body height 182.88 cm Mamie Sweetmond Other [facility] Other 03-13-2022 18:15-0500 Body mass index (BMI) [Ratio] 47.46 kg/m2 Mamie Kassandra Other [facility] Other 03-13-2022 18:15-0500 Body temperature 98 [degF] Mamie Kassandra Other [facility] Other 03-13-2022 18:15-0500 Body weight 158.76 kg Mamie Kassandra Other [facility] Other 03-13-2022 18:15-0500 Respiratory rate 18 /min Mamie Kassandra Other [facility] Other 03-13-2022 18:15-0500 SaO2% (BldA) [Mass fraction] 94 % Mamie Cannon Other [facility] Other 10-10-2021 10:30-0400 Body height 182.88 cm Mamie Cannon Other [facility] Other 10-10-2021 10:30-0400 Body mass index (BMI) [Ratio] 46.11 kg/m2 Mamie Cannon Other [facility] Other 10-10-2021 10:30-0400 Body temperature 98.1 [degF] Mamie Cannon Other [facility] Other 10-10-2021 10:30-0400 Body weight 154.22 kg Mamie Cannon Other [facility] Other 10-10-2021 10:30-0400 Diastolic blood pressure 95 mm[Hg] Mamie Cannon Other [facility] Other 10-10-2021 10:30-0400 Respiratory rate 20 /min Mamie Cannon Other [facility] Other 10-10-2021 10:30-0400 SaO2% (BldA) [Mass fraction] 98 % Mamie Cannon Other [facility] Other 10-10-2021 10:30-0400 Systolic blood pressure 158 mm[Hg] Mamie Sweetmond Other [facility] Other 05-10-2021 10:00-0500 Body height 182.88 cm Alexandra Dimas Other [facility] Other 05-10-2021 10:00-0500 Body mass index (BMI) [Ratio] 49.28 kg/m2 Alexandra Dimas Other [facility] Other 05-10-2021 10:00-0500 Body temperature 96.4 [degF] Alexandra Dimas Other [facility] Other 05-10-2021 10:00-0500 Body weight 164.84 kg Alexandra Dimas Other [facility] Other 05-10-2021 10:00-0500 Diastolic blood pressure 84 mm[Hg] Alexandra Dimas Other [facility] Other 05-10-2021 10:00-0500 Respiratory rate 18 /min Alexandra Dimas Other [facility] Other 05-10-2021 10:00-0500 SaO2% (BldA) [Mass fraction] 96 % Alexandra Dimas Other [facility] Other 05-10-2021 10:00-0500 Systolic blood pressure 147 mm[Hg] Alexandra Dimas Other [facility] Other 02-19-2021 10:00-0500 Body height 182.88 cm Alexandra Ginty Other [facility] Other 02-19-2021 10:00-0500 Body mass index (BMI) [Ratio] 48.82 kg/m2 Alexandra Ginty Other [facility] Other 02-19-2021 10:00-0500 Body temperature 96.4 [degF] Alexandra Ginty Other [facility] Other 02-19-2021 10:00-0500 Body weight 163.3 kg Alexandra Ginty Other [facility] Other 02-19-2021 10:00-0500 SaO2% (BldA) [Mass fraction] 95 % Alexandra Gill Other [facility] Other Encounters Encounter Date Encounter Type Care Provider Facility Start: 08-04-2023 End: 08-04-2023 ambulatory JEANNE ANKITA Not Available Start: 07-31-2023 End: 07-31-2023 ambulatory YIN FAWWAD Not Available Start: 07-24-2023 End: 08-23-2023 ambulatory [facility] Start: 07-14-2023 End: 07-14-2023 ambulatory YIN FAWWAD Not Available Start: 06-24-2023 End: 06-24-2023 ambulatory YIN FAWWAD Not Available Start: 06-23-2023 End: 07-23-2023 ambulatory [facility] Start: 06-05-2023 End: 06-05-2023 ambulatory YIN FAWWAD Not Available Start: 07-25-2022 End: 07-25-[address] GILBERT Rodriguez Facility:[facility] Start: 07-24-2022 End: 07-25-2022 ambulatory YIN H FAWWAD Facility:[facility] Start: 07-11-2022 End: 07-12-2022 ambulatory YIN H FAWWAD Facility:[facility] Start: 06-03-2022 End: 06-04-2022 ambulatory YIN H FAWWAD Facility:[facility] Start: 03-13-2022 End: 03-13-2022 ambulatory Mamie Cannon Other [facility] Other Start: 03-13-2022 Office outpatient vi sit 15 minutes Mamie Cannon [facility] Start: 03-07-2022 End: 03-08-2022 ambulatory YIN H FAWWAD Facility:[facility] Start: 10-10-2021 End: 10-10-2021 ambulatory Mamie Cannon Other [facility] Other Start: 10-10-2021 Office outpatient vi sit 15 minutes Mamie Kassandra [facility] Start: 10-10-2021 End: 10-10-2021 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 Mamie Kassandra Work Phone: [facility] [address] [place] Start: 05-10-2021 End: 05-10-2021 ambulatory Alexandra Dimas Other [facility] Other Start: 05-10-2021 Office outpatient vi sit 15 minutes Alexandra Dimas [facility] Start: 02-19-2021 End: 02-19-2021 ambulatory Alexandra Ginty Other [facility] Other Start: 02-19-2021 Office outpatient vi sit 15 minutes Alexandra Ginty [facility] Plan of Treatment Date Care Activity Detail Author Bacteria identified in Urine by Culture [facility] Payers Date Payer Category Payer Unknown [id number] 2.16.84 [id number] 1975 Unknown [id number] 2.16.84 [id number] 1973 Unknown [id number] 2.16.84 [id number] 1973 Unknown [id number] 2.16.84 [id number] 1973 Unknown [id number] 2.16.84 [id number] 1973 Unknown [id number] 2.16.84 [id number] 1973 Unknown [id number] 2.16.84 [id number] 1973 Unknown [id number] 2.16.84 [id number] 1973 Unknown [id number] 2.16.84 [id number] 1973 Unknown [id number] 2.16.84 [id number] 1973 Unknown [id number] 2.16.8 [id number] 1973 Unknown [id number] 2.16.8 [id number] 1959 Unknown [id number] 2.16.8 [id number] Self-pay Self Pay [id number] Unknown Susan BC/BS [id number] Social History Date Type Detail Facility Unknown if ever smoked [facility] Other Sex Assigned At Sex Assigned At Bir th [facility] Other Start: 1975 Sex Assigned At Male [facility] Evaluation note 03-13-2022 Note Date & [...] no improvement in 2 to 3 days. [facility] Other Evaluation note 10-10-2021 Note Date & [...] the ER for worsening symptoms or concern [facility] Other Evaluation note 05-10-2021 Note Date & [...] Other [facility] home care material was printed [facility] Other Evaluation note 02-19-2021 Note Date & [...] care instructions given in writting by [facility] Care At Home document [facility] Other Evaluation note Note Date & Type Note Facility Evaluation note No assessment information availa [facility] Work Phone: History general Narrative - Reported Note Date & Type Note Facility History general Narrative - Reported Type Medical History HTN Medical History Pre diabetic Medical History Anger issues Medical History Hyperlipidemia [facility] Other Chief Complaint and Reason for Visit [...] section and content) DATE CREATED AUTHOR 10/18/2021 [facility] DATE CREATED AUTHOR AUTHOR'S ORGANIZ ATION 08/01/2022 [facility] DATE CREATED AUTHOR AUTHOR'S ORGANIZ ATION 08/05/2023 [facility] EPIC DATE CREATED AUTHOR AUTHOR'S ORGANIZ ATION 08/24/2023 [facility] FOR RECORDS PERTAINING TO PATIENTS WHO [...] BE BASED ON THE PRIMARY CLINICAL RECORDS. [facility]. provides no warranty or guarantee of the accuracy or completeness of information in this document.
--- NOTE | 2023-10-23 10:54 | PM.CN ---
Consult Note: HPI Data of Consult Patient: known to practice within the last 3 years Requesting Physician: Riri Hastings NP Primary Care Provider: Shaikh Adalid MD Consult Narrative Reason for consult: low back pain Narrative: Hair Santos a pleasant 48 year old male presents for evaluation and management of low back pain with radiculopathy referred by Dr Montgomery and team. Patient noticed significant pain with radiculopathy in May of 2023 and has advanced imaging as noted below. Patient would like to defer on surgical intervention at this time. Pain today 2/10 in low back, denies numbness tingling weakness. Pain increases to 8/10 with standing more than 1 hour, walking distances, and activity at that time his pain will radiate down his right anterior thigh. Denies loss of bowel/bladder. No falls. Patient finds benefit to tizanidine and tylenol. completed 6 weeks of PT without improvement. A1c improved from prior, now less than 7%. cc:: CC: Riri Hastings NP Review of Systems ROS Status of ROS 10 or more systems reviewed and unremarkable except as noted in history and below Musculoskeletal Reports: back pain and extremity [facility] Medical History (Updated 07/24/23 @ 15:53 by Rani Rubin RN) Back pain ?M54.9 - Dorsalgia, unspecified (ICD-10) Anxiety ?F41.9 - Anxiety disorder, unspecified (ICD-10) Diabetes ?E11.9 - Type 2 diabetes mellitus without complications (ICD-10) Kidney stone ?N20.0 - Calculus of kidney (ICD-10) MARKO treated with BiPAP ?G47.33 - Obstructive sleep apnea (adult) (pediatric) (ICD-10) Sleep apnea ?G47.30 - Sleep apnea, unspecified (ICD-10) Asthma ?J45.909 - Unspecified asthma, uncomplicated (ICD-10) Angina at rest ?I20.89 - Other forms of angina pectoris (ICD-10) HTN (hypertension) ?I10 - Essential (primary) hypertension (ICD-10) Surgical History History of carpal tunnel release ?Z98.890 - Other specified postprocedural states (ICD-10) Meds Home Medications and Allergies Home Medications ?Medication ?Instructions ?Recorded ?Confirmed ?Type allopurinol 300 mg tablet 300 mg PO Q12H 10/24/22 10/24/22 History amlodipine 10 mg tablet 10 mg PO QDAY 10/24/22 10/24/22 History aspirin 81 mg tablet,delayed 81 mg PO QDAY 10/24/22 10/24/22 History release buspirone 10 mg tablet 10 mg PO QDAY 10/24/22 10/24/22 History carvedilol 25 mg tablet 25 mg PO Q12H 10/24/22 10/24/22 History dulaglutide 1.5 mg/0.5 mL 1.5 mg subcut QDAY 10/24/22 10/24/22 History subcutaneous pen injector (Trulicity) losartan 100 1 tab PO QDAY 10/24/22 10/24/22 History mg-hydrochlorothiazide 25 mg tablet pravastatin 40 mg tablet 40 mg PO QDAY 10/24/22 10/24/22 History tizanidine 4 mg tablet 4 mg PO Q12H 10/24/22 10/24/22 History cyclobenzaprine 10 mg tablet 10 mg PO TID PRN muscle spasm #20 06/16/23 Rx tabs Allergies Allergy/AdvReac Type Severity Reaction Status Date / Time No Known Drug Allergies Allergy Verified 06/16/23 11:43 Exam Constitutional Documenting provider has reviewed patient's vital signs: yes Common normals: no apparent distress, oriented x3, healthy appearing, alert and well nourished General appearance: cooperative HENNJ Common normals: normocephalic, hearing grossly normal bilaterally and moist oral mucous membranes Head and scalp: normocephalic Eye Common normals: PERRL Pupil: PERRL Neck & C-Spine Common normals: full ROM General: normal visual inspection Chest Common normals: inspection of chest normal Respiratory Common normals: normal respiratory effort, no retractions and no use of accessory muscles Back & Pelvis Lumbar spine/lower back: ROM limited, pain with ROM and straight leg raise positive right Other: facet loading positive bilateral L3-S1 decreased right L3,4,5 sesnation strength 5/5 in BLE Extremity Common normals: normal to inspection and full ROM Neuro Common normals: oriented x3, CN's II-XII intact bilaterally, moves all extremities, no focal motor deficits, no sensory deficits noted and deep tendon reflexes 2+ bilaterally Sensorium/orientation: alert Motor exam: strength 5/5 throughout and no movement abnormalities noted Psych Common normals: mental status grossly normal, thought process normal, cooperative, affect normal, speech normal and activity/motor behavior normal Speech: normal speech Thought process: normal thought process Results Additional Findings Additional findings: If on a controlled substance or opioids, I have checked an [place] report on this patient and there are no aberrancies noted in the prescribing history.??If on a controlled substance or opioid a drug screen was completed and reviewed within the last year, and if there has not been a drug screen completed we ordered one today to monitor higher risk, state monitored pain medication use. As part of providing excellent, safe, comprehensive care, the following was completed at our patient's visit: 1. A medication reconciliation and review to ensure accurate knowledge of current/active medications, including asking our patients to inform us about any [id number] medications or herbal remedies/nutritional supplements/alternative remedies. 2. A review to specifically ensure our patients have had annual screening for screening for depression, screening for tobacco use, and screening for unhealthy alcohol use. For concerning screenings had a discussion with the patient, provided patient education, and recommended follow-up with primary care provider when appropriate. If patient noted with a risk of falling, they received education on strength, gait, and balance training to prevent future risk of falling. Assessment and Plan Assessment and Plan (1) Lumbar stenosis with neurogenic claudication: (2) Lumbar spondylosis: Plan right L3-4 L4-5 TFESI under fluoroscopy, risks vs benefits reviewed continue current medications f/u 2 weeks after YOEL
== END 2023-10-23 10:43 | disposition home or self-care (01) ==
LOC: PM 10:42
PROVIDERS: PCP Internal Medicine; Visit Provider Nurse Practitioner
DX: M48.062 Spinal stenosis, lumbar region with neurogenic claudication (principal); M47.816 Spondylosis without myelopathy or radiculopathy, lumbar region
CPT/HCPCS: G0463

== ENCOUNTER 2023-11-03 09:01 | Day surgery (SDC) | payer OTHER, SELFPAY ==
--- OUTSIDE RECORDS SUMMARY | 2023-11-03 09:19 | XMS_ITS | CCD ---
Author Organization [facility] Care Team Providers Care Instructor Watch Assembly Name Role Phone Alexandra Gill Unavailable Dimas, Alexandra Unavailable JUSTO Cannon Attending Provider Mamie Cannon [...] Primary Care Unavailable MIKAYLA WESTBROOK Referring Unavailable [facility] Primary Care Unavailable Medications Current Medications Medication Drug Class(es) Dates Sig (Normalized) Sig (Original) [id number] 200 actuat albuterol 0.09 mg/actuat metered dose [...] vomiting, unspecified] Episodic Other aftercare (1 source) [facility] (current) use of aspirin; Translations: [MANAGER WILLOW CURRENT USE OF ASPIRIN] Onset: 07-29-2022 Episodic Other aftercare (1 source) Other group home (current) drug therapy; Translations: [OTH MANAGER WILLOW CURRENT DRUG THERAPY] Onset: 07-29-2022 Episodic Other [...] Amylase [Catalytic activity/Vol] 32 U/L Normal 25-115 [facility] Comment on above: Performed By: #### L IPA, JORDON, CMP #### [facility] [address] [place] [address] Dr. Brady Sanders CBC AUTO DIFFon 07-25-2022 BASO # 0.0 103/ul Normal 0.0-0.1 [facility] Comment on above: Performed By: #### C BC #### [facility] [address] [place] [address] Dr. Brady Sanders Basophils/100 WBC (Bld) 0.4 % Normal 0.2-2.0 [facility] Comment on above: Performed By: #### C BC #### [facility] [address] [place] [address] Dr. Brady Sanders EO # 0.1 103/ul Normal 0.0-0.7 [facility] Comment on above: Performed By: #### C BC #### [facility] [address] [place] [address] Dr. Brady Sanders Eosinophils/100 WBC (Bld) 1.5 % Normal 0.9-7.0 [facility] Comment on above: Performed By: #### C BC #### [facility] [address] [place] [address] Dr. Brady Sanders Erythrocyte distribution width (RBC) [Ratio] 13.2 % Normal 11.0-15.0 [facility] Comment on above: Performed By: #### C BC #### [facility] [address] [place] [address] Dr. Brady Sanders Hematocrit (Bld) [Volume fraction] 41.0 % Critically low 42.0-54.0 [facility] Comment on above: Performed By: #### C BC #### [facility] [address] [place] [address] Dr. Brady Sanders Hemoglobin (Bld) [Mass/Vol] 13.8 g/dL Critically low 14.0-18.0 [facility] Comment on above: Performed By: #### C BC #### [facility] [address] [place] [address] Dr. Brady Sanders IG # 0.03 10e3/ul Normal 0.00-0.03 [facility] Comment on above: Performed By: #### C BC #### [facility] [address] [place] [address] Dr. Brady Sanders IG % 0.4 % Normal 0.0-0.5 [facility] Comment on above: Performed By: #### C BC #### [facility] [address] [place] [address] Dr. Brady Sanders LYMPH # 1.8 103/ul Normal 1.2-3.8 [facility] Comment on above: Performed By: #### C BC #### [facility] [address] [place] [address] Dr. Brady Sanders Lymphocytes/100 WBC (Bld) 21.4 % Normal 20.5-60.0 [facility] Comment on above: Performed By: #### C BC #### [facility] [address] [place] [address] Dr. Brady aSnders MANUAL DIFF REQ NO Normal [facility] Comment on above: Performed By: #### C BC #### [facility] [address] [place] [address] Dr. Brady Sanders MCH (RBC) [Entitic mass] 28.1 pg Normal 25.9-34.0 [facility] Comment on above: Performed By: #### C BC #### [facility] [address] [place] [address] Dr. Brady Sanders MCHC (RBC) [Mass/Vol] 33.7 g/dL Normal 29.9-35.2 [facility] Comment on above: Performed By: #### C BC #### [facility] [address] [place] [address] Dr. Brady Sanders MCV (RBC) [Entitic vol] 83.5 fL Normal 80.0-94.0 [facility] Comment on above: Performed By: #### C BC #### [facility] [address] [place] [address] Dr. Brady Sanders MONO # 0.5 103/ul Normal 0.3-0.8 [facility] Comment on above: Performed By: #### C BC #### [facility] [address] [place] [address] Dr. Brady Sanders Monocytes/100 WBC (Bld) 6.2 % Normal 1.7-12.0 [facility] Comment on above: Performed By: #### C BC #### [facility] [address] [place] [address] Dr. Brady Sanders NEUT # 5.9 103/ul Normal 1.4-6.5 [facility] Comment on above: Performed By: #### C BC #### [facility] [address] [place] [address] Dr. Brady Sanders Neutrophils/100 WBC (Bld) 70.1 % Normal 43.0-75.0 [facility] Comment on above: Performed By: #### C BC #### [facility] [address] [place] [address] Dr. Brady Sanders Platelet mean volume (Bld) [Entitic vol] 9.6 fL Normal 9.5-13.5 [facility] Comment on above: Performed By: #### C BC #### [facility] [address] [place], [place] [address] Dr. Brady Sanders PLT 216 103/ul Normal 150-450 [facility] Comment on above: Performed By: #### C BC #### [facility] [address] [place], [place] [address] Dr. Brady Sanders RBC 4.91 106/ul Normal 4.70-6.10 [facility] Comment on above: Performed By: #### C BC #### [facility] [address] [place], [place] [address] Dr. Brady Sanders WBC 8.4 103/ul Normal 4.0-11.0 [facility] Comment on above: Performed By: #### C BC #### [facility] [address] [place], [place] [address] ABD/PELV W CONon [...] by: KAVIN BRIONES Date: 2022-07-25 10:58 Normal [facility] LIPASEon 07-25-2022 Lipase [Catalytic activity/Vol] 96.0 U/L Normal 73.0-393.0 [facility] Comment on above: Performed By: #### L IPA, JORDON, CMP #### [facility] [address] [place] [address] [address] Brady Sanders PROF 14(COMP METB)on 023 Albumin [Mass/Vol] 3.4 g/dL Normal 3.4-5.0 [facility] Comment on above: Performed By: #### L IPA, JORDON, CMP #### [facility] [address] [place] [address] [address] Brady Sanders Albumin/Globulin [Mass ratio] 0.9 {ratio} Normal [facility] Comment on above: Performed By: #### L IPA, JORDON, CMP #### [facility] [address] [place] [address] Dr. Brady Sanders ALP [Catalytic activity/Vol] 88 U/L Normal 46-116 [facility] Comment on above: Performed By: #### L IPA, JORDON, CMP #### [facility] [address] [place] [address] Dr. Brady Sanders ALT [Catalytic activity/Vol] 27 U/L Normal 16-63 [facility] Comment on above: Performed By: #### L IPA, JORDON, CMP #### [facility] [address] [place] [address] [address] Brady Sanders Anion gap [Moles/Vol] 9.2 mmol/L Normal [facility] Comment on above: Performed By: #### L IPA, JORDON, CMP #### [facility] [address] [place] [address] [address] Brady Sanders AST [Catalytic activity/Vol] 18 U/L Normal 15-37 [facility] Comment on above: Performed By: #### L IPA, JORDON, CMP #### [facility] [address] [place] [address] Dr. Brady Sanders Bilirubin [Mass/Vol] 0.4 mg/dL Normal 0.2-1.0 [facility] Comment on above: Performed By: #### L JORDON GARRETT, CMP #### [facility] [address] [place] [address] Dr. Brady Sanders Calcium [Mass/Vol] 8.5 mg/dL Normal 8.5-10.1 [facility] Comment on above: Performed By: #### L GERRY JORDON, CMP #### [facility] [address] [place] [address] Dr. Brady Sanders Chloride [Moles/Vol] 103 mmol/L Normal 98-107 [facility] Comment on above: Performed By: #### L JORDON GARRETT, CMP #### [facility] [address] [place] [address] Dr. Brady Sanders CO2 [Moles/Vol] 31.1 mmol/L Normal 21.0-32.0 [facility] Comment on above: Performed By: #### L JORDON GARRETT, CMP #### [facility] [address] [place] [address] Dr. Brady Sanders Creatinine [Mass/Vol] 0.79 mg/dL Normal 0.70-1.30 [facility] Comment on above: Performed By: #### L JORDON GARRETT, CMP #### [facility] [address] [place] [address] Dr. Brady Sanders EGFR-AF GUINEAN >60 Normal >=60 [facility] Comment on above: Performed By: #### L JORDON GARRETT, CMP #### [facility] [address] [place] [address] Dr. Brady Sanders EGFR-NON AF GUINEAN >60 Normal >=60 [facility] Comment on above: Performed By: #### L JORDON GARRETT, CMP #### [facility] [address] [place] [address] Dr. Brady Sanders Globulin (S) [Mass/Vol] 3.8 g/dL Normal [facility] Comment on above: Performed By: #### L JORDON GARRETT, CMP #### [facility] [address] [place] [address] Dr. Brady Sanders Glucose [Mass/Vol] 140 mg/dL Critically high 74-106 [facility] Comment on above: Performed By: #### L JORDON GARRETT, CMP #### [facility] [address] [place] [address] Dr. Brady Sanders Potassium [Moles/Vol] 3.3 mmol/L Critically low 3.5-5.1 [facility] Comment on above: Performed By: #### L JORDON GARRETT, CMP #### [facility] [address] [place] [address] Dr. Brady Sanders Protein [Mass/Vol] 7.2 g/dL Normal 6.4-8.2 [facility] Comment on above: Performed By: #### L JORDON GARRETT, CMP #### [facility] [address] [place] [address] Dr. Brady Sanders Sodium [Moles/Vol] 140 mmol/L Normal 136-145 [facility] Comment on above: Performed By: #### L JORDON GARRETT, CMP #### [facility] [address] [place] [address] Dr. Brady Sanders Urea nitrogen [Mass/Vol] 10.0 mg/dL Normal 7.0-18.0 [facility] Comment on above: Performed By: #### L JORDON GARRETT, CMP #### [facility] [address] [place] [address] Dr. Brady Sanders Urea nitrogen/Creatinine [Mass ratio] 12.7 mg/mg Normal [facility] Comment on above: Performed By: #### L JORDON GARRETT, CMP #### [facility] [address] [place] [address] Dr. Brady Sanders NM HEPATOBILIARY SCAN W EFon 07-24-2022 NM HEPATOBILIARY SCAN W EF HIDA SCAN WITH GALLBLADDER EJECTION FRACTION HISTORY: Abdominal Pain. COMPARISON: Ultrasound 07/11/2022. METHOD: Following IV injection of 5. mCi of [id number] , anterior imaging of the abdomen was [...] KIM JARRETT Date: 2022-07-24 09:14 Normal [facility] US SINGLE QUAD RT UPPERon US SINGLE [...] MIKAYLA COVINGTON Date: 2022-07-11 11:55 Normal [facility] GLYCOHEMOGLOBIN A1Con 2022 ADA RECOMMENDATION SEE BELOW Normal [facility] Comment on above: Result Comment: ADA RECOMMENDED LIMIT 4.0 - 6.0 ADA THERAPEUTIC TARGET < 7.0 ACTION SUGGESTED > 7.0 Performed By: #### A 1C #### [facility] [address] [place] [address] [address] Brady Sanders Glucose [Mass/Vol] 143 mg/dL Normal [facility] Comment on above: Performed By: #### A 1C #### [facility] [address] [place] [address] [address] Brady Sanders HbA1c (Bld) [Mass fraction] 6.6 % Critically high 4.5-6.2 [facility] Comment on above: Performed By: #### A 1C #### [facility] [address] [place] [address] [address] Brady Sanders COVID + FLU Quick Testingon 03-13-2022 SARS-CoV-2 (COVID-19) RNA ADELINA+probe Ql (Unsp spec) Positive [facility] Other COVID + FLU Quick Testing Negative [facility] Other CBC AUTO DIFFon 03-07-2022 BASO # 0.0 103/ul Normal 0.0-0.1 [facility] Comment on above: Performed By: #### C BC #### [facility] [address] [place] [address] Dr. Brady Sanders Basophils/100 WBC (Bld) 0.5 % Normal 0.2-2.0 [facility] Comment on above: Performed By: #### C BC #### [facility] [address] [place] [address] Dr. Brady Sanders EO # 0.1 103/ul Normal 0.0-0.7 [facility] Comment on above: Performed By: #### C BC #### [facility] [address] [place] [address] Dr. Brady Sanders Eosinophils/100 WBC (Bld) 1.8 % Normal 0.9-7.0 [facility] Comment on above: Performed By: #### C BC #### [facility] [address] [place] [address] Dr. Brady Sanders Erythrocyte distribution width (RBC) [Ratio] 13.5 % Normal 11.0-15.0 [facility] Comment on above: Performed By: #### C BC #### [facility] [address] [place] [address] Dr. Brady Sanders Hematocrit (Bld) [Volume fraction] 46.5 % Normal 42.0-54.0 [facility] Comment on above: Performed By: #### C BC #### [facility] [address] [place] [address] Dr. Brady Sanders Hemoglobin (Bld) [Mass/Vol] 15.6 g/dL Normal 14.0-18.0 [facility] Comment on above: Performed By: #### C BC #### [facility] [address] [place] [address] Dr. Brady Sanders IG # 0.02 10e3/ul Normal 0.00-0.03 [facility] Comment on above: Performed By: #### C BC #### [facility] [address] [place] [address] Dr. Brady Sanders IG % 0.3 % Normal 0.0-0.5 [facility] Comment on above: Performed By: #### C BC #### [facility] [address] [place] [address] Dr. Brady Sanders LYMPH # 1.8 103/ul Normal 1.2-3.8 [facility] Comment on above: Performed By: #### C BC #### [facility] [address] [place] [address] Dr. Brady Sanders Lymphocytes/100 WBC (Bld) 22.3 % Normal 20.5-60.0 [facility] Comment on above: Performed By: #### C BC #### [facility] [address] [place] [address] Dr. Brady Sanders MANUAL DIFF REQ NO Normal [facility] Comment on above: Performed By: #### C BC #### [facility] [address] [place] [address] Dr. Brady Sanders MCH (RBC) [Entitic mass] 28.0 pg Normal 25.9-34.0 [facility] Comment on above: Performed By: #### C BC #### [facility] [address] [place] [address] Dr. Brady Sanders MCHC (RBC) [Mass/Vol] 33.5 g/dL Normal 29.9-35.2 [facility] Comment on above: Performed By: #### C BC #### [facility] [address] [place] [address] Dr. Brady Sandres MCV (RBC) [Entitic vol] 83.3 fL Normal 80.0-94.0 [facility] Comment on above: Performed By: #### C BC #### [facility] [address] [place] [address] Dr. Brady Sanders MONO # 0.5 103/ul Normal 0.3-0.8 [facility] Comment on above: Performed By: #### C BC #### [facility] [address] [place] [address] Dr. Brady Sanders Monocytes/100 WBC (Bld) 6.1 % Normal 1.7-12.0 [facility] Comment on above: Performed By: #### C BC #### [facility] [address] [place] [address] Dr. Brady Sanders NEUT # 5.4 103/ul Normal 1.4-6.5 [facility] Comment on above: Performed By: #### C BC #### [facility] [address] [place] [address] Dr. Brady Sanders Neutrophils/100 WBC (Bld) 69.0 % Normal 43.0-75.0 [facility] Comment on above: Performed By: #### C BC #### [facility] [address] [place] [address] Dr. Brady Sanders Platelet mean volume (Bld) [Entitic vol] 10.3 fL Normal 9.5-13.5 [facility] Comment on above: Performed By: #### C BC #### [facility] [address] [place] [address] Dr. Brady Sanders PLT 230 103/ul Normal 150-450 [facility] Comment on above: Performed By: #### C BC #### [facility] [address] [place] [address] Dr. Brady Sanders RBC 5.58 106/ul Normal 4.70-6.10 [facility] Comment on above: Performed By: #### C BC #### [facility] [address] [place] [address] Dr. Brady Sanders WBC 7.9 103/ul Normal 4.0-11.0 [facility] Comment on above: Performed By: #### C BC #### [facility] [address] [place] [address] Dr. Brady Sanders GLYCOHEMOGLOBIN A1Con 2021 ADA RECOMMENDATION SEE BELOW Normal [facility] Comment on above: Result Comment: ADA RECOMMENDED LIMIT 4.0 - 6.0 ADA THERAPEUTIC TARGET < 7.0 ACTION SUGGESTED > 7.0 Performed By: #### A 1C #### [facility] [address] [place] [address] [address] Brady Sanders Glucose [Mass/Vol] 200 mg/dL Normal [facility] Comment on above: Performed By: #### A 1C #### [facility] [address] [place] [address] [address] Brady Sanders HbA1c (Bld) [Mass fraction] 8.6 % Critically high 4.5-6.2 [facility] Comment on above: Performed By: #### A 1C #### [facility] [address] [place] [address] [address] Brady Sanders LIPID PROFILEon 03-07-2022 CHOL-HDL RATIO NORM SEE BELOW Normal [facility] Comment on above: Result Comment: 3.3 - 4.4 LOW RISK 4.4 - 7.1 AVERAGE RISK 7.1 - 11.0 MODERATE RISK >11.0 HIGH RISK Performed By: #### L JORDON GARRETT, CMP #### [facility] [address] [place] [address] [address] Brady Sanders Cholesterol [Mass/Vol] 136 mg/dL Normal <=200 [facility] Comment on above: Performed By: #### L JORDON GARRETT, CMP #### [facility] [address] [place] [address] [address] Brady Sanders Cholesterol in HDL [Mass/Vol] 26 mg/dL Critically low 40-60 [facility] Comment on above: Performed By: #### L JORDON GARRETT, CMP #### [facility] [address] [place] [address] [address] Brady Sanders Cholesterol in LDL [Mass/Vol] 77.2 mg/dL Normal [facility] Comment on above: Performed By: #### L JORDON GARRETT, CMP #### [facility] [address] [place] [address] [address] Brady Sanders Cholesterol.total/C holesterol in HDL [Mass ratio] 5.2 {ratio} Normal [facility] Comment on above: Performed By: #### L JORDON GARRETT, CMP #### [facility] [address] [place] [address] [address] Brady Sanders HDL NORMAL > or = 60 mg/dl - LO W CARDIOVASCULAR RISK <40 mg/dl - HIGH CARDIOVASCULAR RISK Normal [facility] Comment on above: Performed By: #### L JORDON GARRETT, CMP #### [facility] [address] [place] [address] [address] Brady Sanders LDL CALC NORMAL SEE BELOW Normal [facility] Comment on above: Result Comment: <100 mg/dl OPTIMAL 100 - 129 mg/dl NEAR OR ABOVE OPTIMAL 130 - 159 mg/dl BORDERLINE HIGH 160 - 189 mg/dl HIGH >190 mg/dl VERY HIGH Performed By: #### L JORDON GARRETT, CMP #### [facility] [address] [place] [address] [address] Brady Sanders Triglyceride [Mass/Vol] 164 mg/dL Critically high <=150 [facility] Comment on above: Performed By: #### L JORDON GARRETT, CMP #### [facility] [address] [place] [address] [address] Brady Sanders VLDL CALC 32.8 mg/dL Normal [facility] Comment on above: Performed By: #### L JORDON GARRETT, CMP #### [facility] [address] [address] [address] Brady Sanders MICROALBUMIN, RAND URon 02-21 mALB <1.3 Normal <=30.0 [facility] Comment on above: Performed By: #### L JORDON GARRETT, CMP #### [facility] [address] [address] [address] Brayd Sanders PROF 14(COMP METB)on 022 Albumin [Mass/Vol] 3.8 g/dL Normal 3.4-5.0 [facility] Comment on above: Performed By: #### L JORDON GARRETT, CMP #### [facility] [address] [place] [address] [address] Brady Sanders Albumin/Globulin [Mass ratio] 1.0 {ratio} Normal [facility] Comment on above: Performed By: #### L IPA, JORDON, CMP #### [facility] [address] [address] [address] Brady Sanders ALP [Catalytic activity/Vol] 102 U/L Normal 46-116 [facility] Comment on above: Performed By: #### L IPA, JORDON, CMP #### [facility] [address] [place] [address] [address] Brady Sanders ALT [Catalytic activity/Vol] 41 U/L Normal 16-63 [facility] Comment on above: Performed By: #### L IPA, JORDON, CMP #### [facility] [address] [place] [address] [address] Brady Sanders Anion gap [Moles/Vol] 14.7 mmol/L Normal [facility] Comment on above: Performed By: #### L IPA, JORDON, CMP #### [facility] [address] [place] [address] [address] Brady Sanders AST [Catalytic activity/Vol] 24 U/L Normal 15-37 [facility] Comment on above: Performed By: #### L IPA, JORDON, CMP #### [facility] [address] [address] [address] Brady Sanders Bilirubin [Mass/Vol] 0.4 mg/dL Normal 0.2-1.0 [facility] Comment on above: Performed By: #### L IPA, JORDON, CMP #### [facility] [address] [address] [address] Brady Sanders Calcium [Mass/Vol] 8.8 mg/dL Normal 8.5-10.1 [facility] Comment on above: Performed By: #### L IPA, JORDON, CMP #### [facility] [address] [place] [address] [address] Brady Sanders Chloride [Moles/Vol] 99 mmol/L Normal 98-107 [facility] Comment on above: Performed By: #### L IPA, JORDON, CMP #### [facility] [address] [address] [address] Brady Sanders CO2 [Moles/Vol] 26.8 mmol/L Normal 21.0-32.0 [facility] Comment on above: Performed By: #### L IPA, JORDON, CMP #### [facility] [address] [address] [address] Brady Sanders Creatinine [Mass/Vol] 1.00 mg/dL Normal 0.70-1.30 [facility] Comment on above: Performed By: #### L IPA, JORDON, CMP #### [facility] [address] [address] [address] Brady Sanders EGFR-AF GUINEAN >60 Normal >=60 [facility] Comment on above: Performed By: #### L IPA, JORDON, CMP #### [facility] [address] [address] [address] Brady Sanders EGFR-NON AF GUINEAN >60 Normal >=60 [facility] Comment on above: Performed By: #### L IPA, JORDON, CMP #### [facility] [address] [address] [address] Brady Sanders Globulin (S) [Mass/Vol] 3.7 g/dL Normal [facility] Comment on above: Performed By: #### L IPA, JORDON, CMP #### [facility] [address] [address] [address] Brady Sanders Glucose [Mass/Vol] 317 mg/dL Critically high 74-106 [facility] Comment on above: Performed By: #### L IPA, JORDON, CMP #### [facility] [address] [address] [address] Brady Sanders Potassium [Moles/Vol] 3.5 mmol/L Normal 3.5-5.1 [facility] Comment on above: Performed By: #### L IPA, JORDON, CMP #### [facility] [address] [address] [address] Brady Sanders Protein [Mass/Vol] 7.5 g/dL Normal 6.4-8.2 [facility] Comment on above: Performed By: #### L IPA, JORDON, CMP #### [facility] [address] [address] [address] Brady Sanders Sodium [Moles/Vol] 137 mmol/L Normal 136-145 [facility] Comment on above: Performed By: #### L JORDON GARRETT CMP #### [facility] [address] [address] [address] Brady Sanders Urea nitrogen [Mass/Vol] 11.0 mg/dL Normal 7.0-18.0 [facility] Comment on above: Performed By: #### L JORDON GARRETT CMP #### [facility] [address] [address] [address] Brady Sanders Urea nitrogen/Creatinine [Mass ratio] 11.0 mg/mg Normal [facility] Comment on above: Performed By: #### L JORDON GARRETT CMP #### [facility] [address] [address] [address] Brady Sanders Urinalysis - AUTOMATEDon Appearance (U) clear [facility] Other Bilirubin Ql (U) Negative [facility] Other Color (U) medium tellow [facility] Other Glucose Ql (U) >1000 [facility] Other Hemoglobin Ql (U) trace [facility] Other Ketones Ql (U) Negative [facility] Other Leukocyte esterase Test strip Ql (U) trace [facility] Other Nitrite Ql (U) Negative [facility] Other pH (U) 5.5 [pH] [facility] Other Protein Ql (U) Negative [facility] Other Specific gravity (U) [Rel density] 1.015 [facility] Other Urobilinogen (U) [Mass/Vol] 0.2 mg/dL [facility] Other Urinalysis - AUTOMATED [facility] Other Urine Cultureon 10-10-2021 Bacteria identified Cx Nom (U) Reason for Exam Dysuria Urine >100,000 colonies/ml mixed bacterial skin contaminants 2 Days PERFORMED BY: [address] [id number] PATHOLOGIST COOK CHILI TIA CORDOVA M.D. Normal [facility] Comment on above: Performed By: #### C UU #### [address] Bacteria identified Cx Nom (U) [facility] Other Quick Fluon 02-19-2021 FLUAV Ab CF (S) [Titer] Negative [facility] Other FLUBV Ab CF (S) [Titer] Negative [facility] Other Vital Signs Date Time Vital Sign Value Performing Clinician Facility 03-13-2022 18:15-0500 Body height 182.88 cm Mamie Sweetmond Other [facility] Other 03-13-2022 18:15-0500 Body mass index (BMI) [Ratio] 47.46 kg/m2 Ammie Kassandra Other [facility] Other 03-13-2022 18:15-0500 Body temperature 98 [degF] Mamie Kassandra Other [facility] Other 03-13-2022 18:15-0500 Body weight 158.76 kg Mamie Kassandra Other [facility] Other 03-13-2022 18:15-0500 Respiratory rate 18 /min Mamie Kassandra Other [facility] 03-13-2022 18:15-0500 SaO2% (BldA) [Mass fraction] 94 % Mamie Cannon Other [facility] Other 10-10-2021 10:30-0400 Body height 182.88 cm Mamie Cannon Other [facility] Other 10-10-2021 10:30-0400 Body mass index (BMI) [Ratio] 46.11 kg/m2 Mamie Cannon Other [facility] Other 10-10-2021 10:30-0400 Body temperature 98.1 [degF] Mamie Cannon Other [facility] Other 10-10-2021 10:30-0400 Body weight 154.22 kg Mamie Cannon Other [facility] Other 10-10-2021 10:30-0400 Diastolic blood pressure 95 mm[Hg] Mamie Cannon Other [facility] Other 10-10-2021 10:30-0400 Respiratory rate 20 /min Mamie Cannon Other [facility] Other 10-10-2021 10:30-0400 SaO2% (BldA) [Mass fraction] 98 % Mamie Cannon Other [facility] Other 10-10-2021 10:30-0400 Systolic blood pressure 158 mm[Hg] Mamie Sweetmond Other [facility] Other 05-10-2021 10:00-0500 Body height 182.88 cm Alexandra Dimas Other [facility] Other 05-10-2021 10:00-0500 Body mass index (BMI) [Ratio] 49.28 kg/m2 Alexandra Dimas Other [facility] Other 05-10-2021 10:00-0500 Body temperature 96.4 [degF] Alexandra Dimas Other [facility] Other 05-10-2021 10:00-0500 Body weight 164.84 kg Alexandra Dimas Other [facility] Other 05-10-2021 10:00-0500 Diastolic blood pressure 84 mm[Hg] Alexandra Dimas Other [facility] Other 05-10-2021 10:00-0500 Respiratory rate 18 /min Alexandra Dimas Other [facility] Other 05-10-2021 10:00-0500 SaO2% (BldA) [Mass fraction] 96 % Alexandra Dimas Other [facility] Other 05-10-2021 10:00-0500 Systolic blood pressure 147 mm[Hg] Alexandra Dimas Other [facility] Other 02-19-2021 10:00-0500 Body height 182.88 cm Alexandra Ginty Other [facility] Other 02-19-2021 10:00-0500 Body mass index (BMI) [Ratio] 48.82 kg/m2 Alexandra Ginty Other [facility] Other 02-19-2021 10:00-0500 Body temperature 96.4 [degF] Alexandra Ginty Other [facility] Other 02-19-2021 10:00-0500 Body weight 163.3 kg Alexandra Ginty Other [facility] Other 02-19-2021 10:00-0500 SaO2% (BldA) [Mass fraction] 95 % Alexandra Gill Other [facility] Other Encounters Encounter Date Encounter Type Care Provider Facility Start: 08-04-2023 End: 08-04-2023 ambulatory JEANNE ANKITA Not Available Start: 07-31-2023 End: 07-31-2023 ambulatory YIN FAWWAD Not Available Start: 07-24-2023 End: 08-23-2023 ambulatory [facility] Start: 07-14-2023 End: 07-14-2023 ambulatory YIN FAWWAD Not Available Start: 06-24-2023 End: 06-24-2023 ambulatory YIN FAWWAD Not Available Start: 06-23-2023 End: 07-23-2023 ambulatory [facility] Start: 06-05-2023 End: 06-05-2023 ambulatory YIN FAWWAD Not Available Start: 07-25-2022 End: 07-25-[address] GILBERT Rodriguez Facility:[facility] Start: 07-24-2022 End: 07-25-2022 ambulatory YIN H FAWWAD Facility:[facility] Start: 07-11-2022 End: 07-12-2022 ambulatory YIN H FAWWAD Facility:[facility] Start: 06-03-2022 End: 06-04-2022 ambulatory YIN H FAWWAD Facility:[facility] Start: 03-13-2022 End: 03-13-2022 ambulatory Mamie Cannon Other [facility] Start: 03-13-2022 Office outpatient vi sit 15 minutes Mamie Cannon [facility] Start: 03-07-2022 End: 03-08-2022 ambulatory YIN H FAWWAD Facility:[facility] Start: 10-10-2021 End: 10-10-2021 ambulatory Mamie Cannon Other [facility] Start: 10-10-2021 Office outpatient vi sit 15 minutes Mamie Kassandra [facility] Start: 10-10-2021 End: 10-10-2021 Departed [facility] MEDICAL IMAGING DIRECTOR-C Mamie Kassandra Work Phone: [facility] [place] Start: 05-10-2021 End: 05-10-2021 ambulatory Alexandra Dimas Other [facility] Start: 05-10-2021 Office outpatient vi sit 15 minutes Alexandra Dimas [facility] Start: 02-19-2021 End: 02-19-2021 ambulatory Alexandra Ginty Other [facility] Start: 02-19-2021 Office outpatient vi sit 15 minutes Alexandra Ginty [facility] Plan of Treatment Date Care Activity Detail Author Bacteria identified in Urine by Culture [facility] Payers Date Payer Category Payer Unknown [id number] 2.16.84 [id number] 1975 Unknown [id number] 2.16.84 [id number] 1975 Unknown [id number] 2.16.84 [id number] 1973 Unknown [id number] 2.16.84 [id number] 1973 Unknown [id number] 2.16.84 [id number] 1973 Unknown [id number] 2.16.84 [id number] 1973 Unknown [id number] 2.16.84 [id number] 1973 Unknown [id number] 2.16.84 [id number] 1973 Unknown [id number] 2.16.84 [id number] 1973 Unknown [id number] 2.16.84 [id number] 1973 Unknown [id number] 2.16.8 [id number] 1973 Unknown [id number] 2.16.8 [id number] 1959 Unknown [id number] 2.16.8 [id number] Self-pay Self Pay [id number] Unknown Susan BC/BS [id number] Social History Date Type Detail Facility Unknown if ever smoked [facility] Other Sex Assigned At Sex Assigned At Bir th [facility] Other Start: 1975 Sex Assigned At Male F [facility] Evaluation note 03-13-2022 Note Date & Type [...] no improvement in 2 to 3 days. [facility] Other Evaluation note 10-10-2021 Note Date & [...] the ER for worsening symptoms or concern [facility] Other Evaluation note 05-10-2021 Note Date & [...] Other Parony[facility]ia home care material was printed [facility] Other Evaluation note 02-19-2021 Note Date & [...] care instructions given in writting by [facility] Care At Home document [facility] Other Evaluation note Note Date & Type Note Facility Evaluation note No assessment information availa [facility] Work Phone: History general Narrative - Reported Note Date & Type Note Facility History general Narrative - Reported Type Medical History HTN Medical History Pre diabetic Medical History Anger issues Medical History Hyperlipidemia [facility] Other Chief Complaint and Reason for Visit [...] section and content) DATE CREATED AUTHOR 10/18/2021 [facility] DATE CREATED AUTHOR AUTHOR'S ORGANIZ ATION 08/01/2022 [facility] DATE CREATED AUTHOR AUTHOR'S ORGANIZ ATION 08/05/2023 [facility] EPIC DATE CREATED AUTHOR AUTHOR'S ORGANIZ ATION 08/24/2023 [facility] FOR RECORDS PERTAINING TO PATIENTS WHO [...] BE BASED ON THE PRIMARY CLINICAL RECORDS. [facility] [employer] [facility]. provides no warranty or guarantee of the accuracy or completeness of information in this document.
[2023-11-03 09:47] VITALS: BP 131/84; PULSE 91; TEMP 36.6; O2SAT 95
[2023-11-03 09:49] LABS: Glucometer 185 mg/dL (74-106)
[2023-11-03] MEDS: 0.9 % SODIUM CHLORIDE 10 ML SYRINGE - SALINE FLUSH INJ (10:14)
[2023-11-03] MEDS: LIDOCAINE HCL 2% 400 MG/20 ML MDV 5 ML INJ (10:14)
[2023-11-03] MEDS: BUPIVACAINE HCL 0.25% PF 25 MG/10 ML VIAL INJ (10:14)
--- NOTE | 2023-11-03 10:16 | P.ON_ITS ---
Date of procedure: 11/03/23 Pre-op diagnosis: Pain due to lumbar stenosis with neurogenic claudication Post-op diagnosis: same as pre-op Procedure: Procedure: Right L3-4, 4-5 transforaminal epidural steroid injection Medications: Bupivacaine 0.25% 2cc, lidocaine 2% 1cc, dexamethasone 10mg The patient was seen and examined in the preoperative holding area.? Informed consent was obtained and placed on the chart.? Patient was brought to the medical procedure unit and placed in the prone position where a timeout was completed verifying the correct patient, procedure site, position, and planned special equipment using sterile aseptic technique.? Under direct fluoroscopic visualization a 25-gauge Quincke tipped spinal needle was advanced to the designated neural foramen where contrast dye was injected to show adequate spread.? The needle was inserted at level right L3-4. There was no evidence of vascular or adverse uptake.? Epidural spread was appreciated.? The above- mentioned injectate was then placed in a 1.5 mL aliquot preceded by negative aspiration.? The needle was removed. The needle was inserted and the procedure repeated at level right L4-5.? The surgery site was covered.? Patient was taken to the postprocedural recovery area and monitored for an appropriate length of time before found suitable for discharge in the accompaniment of a responsible adult. Anesthesia: Local Surgeon: Swapnil Perkins Pathology: none sent Condition: stable Disposition: no change
[2023-11-03] MEDS: IOHEXOL 240 MG/ML - 10 ML VIAL INJ (12:10)
[2023-11-03] MEDS: DEXAMETHASONE SOD PHOS (PF) 10 MG/ML VIAL INJ (12:12)
== END 2023-11-03 10:36 | disposition home or self-care (01) ==
LOC: SURGOUT 09:01
PROVIDERS: PCP Internal Medicine; Visit Provider Anesthesiology
DX: M48.062 Spinal stenosis, lumbar region with neurogenic claudication (principal)
CPT/HCPCS: 36415; 64483; 64484; 82948; J0665; J1100; Q9966

== ENCOUNTER 2023-11-12 09:42 | Outpatient (OUT) | payer OTHER, SELFPAY ==
--- NOTE | 2023-11-12 10:03 | P.CN_ITS ---
Consult Note: HPI Data of Consult Patient: known to practice within the last 3 years Requesting Physician: Riri Hastings NP Primary Care Provider: Shaikh Adalid MD Consult Narrative Reason for consult: low back pain Narrative: Hair Santos a pleasant 48 year old male presents for evaluation and management of low back pain with radiculopathy referred by Dr Montgomery and team. Patient noticed significant pain with radiculopathy in May of 2023 and has advanced imaging as noted below. Patient would like to defer on surgical intervention at this time. Pain today 2/10 in low back, denies numbness tingling weakness. Pain increases to 3/10 with standing more than 1 hour, walking distances, and activity at that time his pain will radiate down his right anterior thigh. Denies loss of bowel/bladder. No falls. Patient finds benefit to tizanidine and tylenol. completed 6 weeks of PT without improvement. Recent right L3/4 TFESI providing moderate relief per pt in pain ongoing. Patient has not had to utilize any medications for pain. cc:: CC: Riri Hastings NP Review of Systems ROS Status of ROS 10 or more systems reviewed and unremark able except as noted in history and below Musculoskeletal Reports: back pain PFSH [facility] Medical History (Updated 07/24/23 @ 15:53 by Rani Rubin RN) Back pain ?M54.9 - Dorsalgia, unspecified (ICD-10) Anxiety ?F41.9 - Anxiety disorder, unspecified (ICD-10) Diabetes ?E11.9 - Type 2 diabetes mellitus without complications (ICD-10) Kidney stone ?N20.0 - Calculus of kidney (ICD-10) MARKO treated with BiPAP ?G47.33 - Obstructive sleep apnea (adult) (pediatric) (ICD-10) Sleep apnea ?G47.30 - Sleep apnea, unspecified (ICD-10) Asthma ?J45.909 - Unspecified asthma, uncomplicated (ICD-10) Angina at rest ?I20.89 - Other forms of angina pectoris (ICD-10) HTN (hypertension) ?I10 - Essential (primary) hypertension (ICD-10) Surgical History History of carpal tunnel release ?Z98.890 - Other specified postprocedural states (ICD-10) Meds Home Medications and Allergies Home Medications ?Medication ?Instructions ?Recorded ?Confirmed ?Type allopurinol 300 mg tablet 300 mg PO Q12H 10/24/22 11/03/23 History amlodipine 10 mg tablet 10 mg PO QDAY 10/24/22 11/03/23 History aspirin 81 mg tablet,delayed 81 mg PO QDAY 10/24/22 11/03/23 History release buspirone 10 mg tablet 10 mg PO QDAY 10/24/22 11/03/23 History carvedilol 25 mg tablet 25 mg PO Q12H 10/24/22 11/03/23 History losartan 100 1 tab PO QDAY 10/24/22 11/03/23 History mg-hydrochlorothiazide 25 mg tablet pravastatin 40 mg tablet 40 mg PO QDAY 10/24/22 11/03/23 History tizanidine 4 mg tablet 4 mg PO Q12H 10/24/22 11/03/23 History cyclobenzaprine 10 mg tablet 10 mg PO TID PRN muscle spasm #20 06/16/23 Rx tabs semaglutide 1 mg/dose (2 mg/1.5 1 mg subcut QWEEK 11/03/23 11/03/23 History mL) subcutaneous pen injector Allergies Allergy/AdvReac Type Severity Reaction Status Date / Time No Known Drug Allergies Allergy Verified 11/03/23 09:42 Exam Constitutional Documenting provider has reviewed patient's vital signs: yes Common normals: no apparent distress, oriented x3, healthy appearing, alert and well nourished General appearance: cooperative HENAZ Common normals: normocephalic, hearing grossly normal bilaterally and moist oral mucous membranes Head and scalp: normocephalic Eye Common normals: PERRL Pupil: PERRL Neck & C-Spine Common normals: full ROM General: normal visual inspection Chest Common normals: inspection of chest normal Respiratory Common normals: normal respiratory effort, no retractions and no use of accessory muscles Back & Pelvis Lumbar spine/lower back: normal to inspection, lumbar ROM normal and straight leg raise negative bilaterally Sacroiliac joints: SI joints normal Other: negative facet loading sensation intact BLE strength 5/5 in BLE Extremity Common normals: normal to inspection and full ROM Neuro Common normals: oriented x3, CN's II-XII intact bilaterally, moves all extremities, no focal motor deficits, no sensory deficits noted, deep tendon reflexes 2+ bilaterally and gait normal Sensorium/orientation: alert Motor exam: strength 5/5 throughout and no movement abnormalities noted Psych Common normals: mental status grossly normal, thought process normal, cooperative, affect normal, speech normal and activity/motor behavior normal Speech: normal speech Thought process: normal thought process Results Imaging Lumbar MRI: Attestation: I have reviewed the pertinent imaging results. Radiologist's impression: Level of T12-L1 is unremarkable. No neural foraminal narrowing or canal stenoses at the level of L1-L2 and L2-L3 is noted. At the level of L3-4, there are disc bulge with superimposed right lateral extrusion with inferior migration with moderate bilateral neuroforaminal narrowing and moderate to severe canal stenosis. The right L4 nerve root is in close contact with the disc extrusion in the lateral recess. At the level of L4-5, there are disc bulge with moderate bilateral neuroforaminal narrowing and mild canal stenosis. At the level of L5-S1, there are disc bulge with central annular fissure with mild right and moderate left neuroforaminal narrowing and no canal stenosis. The left S1 nerve root is in close contact with the disc bulge in the lateral recess. The paraspinal muscles are unremarkable. Lumbar Xray: Attestation: I have reviewed the pertinent imaging results. Radiologist's impression: FINDINGS: BONES: Suspect mild grade 1 anterolisthesis of L4 on 5 without appreciable change in alignment during flexion and extension. No change in alignment during flexion and extension. Mild degenerative facet arthropathy L3-L4 through L5-S1. DISC SPACES: Mild narrowing L3-L4, L4-L5. PARASPINOUS: Negative. No paraspinous abnormality is seen. OTHER: Negative. Additional Findings Additional findings: If on a controlled substance or opioids, I have checked an [place] report on this patient and there are no aberrancies noted in the prescribing history.??If on a controlled substance or opioid a drug screen was completed and reviewed within the last year, and if there has not been a drug screen completed we ordered one today to monitor higher risk, state monitored pain medication use. As part of providing excellent, safe, comprehensive care, the following was completed at our patient's visit: 1. A medication reconciliation and review to ensure accurate knowledge of current/active medications, including asking our patients to inform us about any [id number] medications or herbal remedies/nutritional supplements/alternative remedies. 2. A review to specifically ensure our patients have had annual screening for screening for depression, screening for tobacco use, and screening for unhealthy alcohol use. For concerning screenings had a discussion with the patient, provided patient education, and recommended follow-up with primary care provider when appropriate. If patient noted with a risk of falling, they received education on strength, gait, and balance training to prevent future risk of falling. Assessment and Plan Assessment and Plan (1) Lumbar stenosis with neurogenic claudication: (2) Lumbar spondylosis: Plan right L3-4 L4-5 TFESI providing moderate relief ongoing f/u 3 months, sooner if needed
== END 2023-11-12 09:43 | disposition home or self-care (01) ==
LOC: PM 09:43
PROVIDERS: PCP Internal Medicine; Visit Provider Nurse Practitioner
DX: M48.062 Spinal stenosis, lumbar region with neurogenic claudication (principal); M47.816 Spondylosis without myelopathy or radiculopathy, lumbar region
CPT/HCPCS: G0463

== ENCOUNTER 2024-02-05 10:27 | Outpatient (OUT) | payer OTHER, SELFPAY ==
--- OUTSIDE RECORDS SUMMARY | 2024-02-05 10:46 | XMS_ITS | CCD ---
Author Organization [facility] Care Team Providers Care Second Hand Name Role Phone Alexandra Gill Unavailable Alexandra Dimas Unavailable JUSTO Cannon Attending Provider Mamie Cannon [...] Referring Unavailable FAWWAD, YIN Primary Care Unavailable Maddie SIMS, Swapnil Cummins Attending Unavailable FAWWAD, YIN Attending Unavailable FAWWAD, YIN Attending Unavailable FAWWAD, YIN Attending Unavailable SHAIKH HERRMANN Attending Unavailable JEANNE LUCIANO Attending Unavailable DEBRA CHAMORRO Referring Unavailable SHAIKH HERRMANN Attending Unavailable MARGARETTE WHITE Attending UnavailRichard Hunt MD Primary Care Provider Christopher WINDER FIXERMargarette Unavailable Medications Current Medications Medication Drug Class(es) Dates Sig (Normalized) Sig (Original) acetaminophen 325 mg / HYDROcodone bitartrate 5 mg oral tablet (5 sources) Opioid Agonist Start: 10-06-2023 take 1 tablet by mouth every six hours as needed HYDROcodone-aceta minophen ([place]) 5-325 MG tablet Take 1 tablet by mouth every 6 (six) hours if needed 10/06/2023 Active [id number] 200 actuat albuterol 0.09 mg/actuat metered dose [...] needed Inhalation every 4 hrs Nov, Active allopurinol 300 mg oral tablet (5 sources) Xanthine Oxidase Inhibitor Start: 10-01-2023 take 1 tablet by mouth once daily allopurinol (Zyloprim) 300 MG tablet Indications: Hyperuricemia Take 1 tablet (300 mg) by mouth Daily 90 tablet 1 10/01/2023 Active amLODIPine 10 mg oral tablet (11 sources) Dihydropyridine Calcium Channel Ana Laura Start: 10-01-2023 take 1 tablet by mouth once daily amLODIPine (Norvasc) 10 MG tablet Indications: Essential hypertension (CMS/HCC) Take 1 tablet (10 mg) by mouth Daily 90 tablet 1 10/01/2023 Active amLODIPine Besyl ate Active ASA (6 sources) ASA Active aspirin 81 mg delayed release oral tablet (5 sources) Platelet Aggregation Inhibitor, Nonsteroidal Anti-inflammatory Drug take 1 tablet by mouth once daily aspirin 81 MG EC tablet Take 1 tablet by mouth Daily Active Atenolol (6 sources) beta-Adrenergic Ana Laura Atenolol Active benzonatate 100 mg oral capsule (1 source) Non-narcotic Antitussive Start: 12-05-19 take 1 capsule by mouth three times daily as needed Tessalon Perles 100 MG 1 capsule as needed Orally Three times a day 13 Nov, 2020 Active busPIRone hydrochloride 10 mg oral tablet (5 sources) Start: 10-01-19 End: 03-29-19 take 1 tablet by mouth three times daily as needed for anxiety busPIRone (Buspar) 10 MG tablet Indications: JAN (generalized anxiety disorder) (CMS/HCC) Take 1 tablet (10 mg) by mouth 3 (three) times a day as needed (Anxiety) 270 tablet 1 10/01/2023 03/29/2024 Active carvedilol 25 mg oral tablet (5 sources) alpha-Adrenergic Ana Laura, beta-Adrenergic Ana Laura Start: 10-01-19 take 1 tablet by mouth twice daily at mealtime carvedilol (Coreg) 25 MG tablet Indications: Essential hypertension (CMS/HCC) Take 1 tablet by mouth twice daily. Must take with a meal or food. 180 tablet 1 10/01/2023 Active cephalexin 500 mg oral capsule (9 sources) Cephalosporin Antibacterial Start: 10-06-19 End: 12-30-19 take 1 capsule by mouth in the morning, then take 1 capsule by mouth in the evening, then take 1 capsule by mouth at bedtime cephalexin (Keflex) 500 MG capsule Take 500 mg by mouth in the morning and 500 mg in the evening and 500 mg before bedtime. 10/06/2023 12/30/2023 Discontinued (Therapy completed) Start: 10-10-2021 take 1 capsule by mo [facility] every twelve hours Cephalexin 500 MG 1 capsule Orally two times a day for 5 day(s) Sep, Active Start: 05-19-2021 take 1 tablet by chintan every twelve hours Cephalexin 500 MG 1 tablet Orally every 12 hrs for 10 day(s) Apr, Active Continuous Glucose Caustic Loader (Dexcom G7 Caustic Loader) device (2 sources) Start: 01-05-2024 Continuous Glucose Caustic Loader (Dexcom G7 Caustic Loader) device Indications: Type 2 diabetes mellitus without complication, without long-term current use of insulin (CMS/HCC) 1 each continuously 1 each 2 01/05/2024 Active Continuous Glucose Sensor (Dexcom G7 Sensor) misc (2 sources) Start: 01-05-2024 Continuous Glucose Sensor (Dexcom G7 Sensor) [facility] Indications: Type 2 diabetes mellitus without complication, without long-term current use of insulin (CMS/HCC) 1 each continuously 3 each 1 01/05/2024 Active Continuous Glucose Sensor (FreeStyle Marlon 2 Sensor) misc (5 sources) Start: 09-22-2023 Continuous Glucose Sensor (FreeStyle Mar[place] 2 Sensor) [facility] Indications: Type 2 diabetes mellitus without complication, without long-term current use of insulin (CMS/HCC) 1 each by Other route every 14 (fourteen) days 6 each 1 09/22/2023 Active empagliflozin (6 sources) Sodium-Glucose Cotransporter 2 Inhibitor JARDIANCE Active fluticasone propionate 0.05 mg/actuat metered dose nasal spray (2 sources) Corticosteroid Start: 07-03-2020 take 1 spray(s) nasal route once daily Fluticasone Propionate 50 MCG/ACT 1 spray in each nostril Nasally Once a day for 21 days Nov, Active glipiZIDE 5 mg oral tablet (5 sources) Sulfonylurea Start: 10-01-2023 End: 03-29-2024 take 1 tablet by mouth in the morning glipiZIDE (Glucotrol) 5 MG tablet Indications: Type 2 diabetes mellitus without complication, without long-term current use of insulin (CMS/HCC) Take 1 tablet (5 mg) by mouth in the morning and 1 tablet (5 mg) in the evening. Take before meals. 180 tablet 1 10/01/2023 03/29/2024 Active hydroCHLOROthiazide 12.5 mg oral capsule (9 sources) Thiazide Diuretic End: 12-30-2023 take 1 capsule by mouth once daily hydroCHLOROthiazide (Microzide) 12.5 MG capsule Take 1 capsule by mouth Daily 12/30/2023 Discontinued (Duplicate order) hydroCHLOROthiaz yandy Active hydroCHLOROthiazide 25 mg / losartan potassium 100 mg oral tablet (5 sources) Thiazide Diuretic, Angiotensin 2 Receptor Ana Laura Start: 10-01-2023 take 1 tablet by mouth once daily losartan-hydroCHLOROthiazide (Hyzaar) 100-25 MG tablet Indications: Essential hypertension (CMS/HCC) Take 1 tablet by mouth Daily 90 tablet 1 10/01/2023 Active hydrOXYzine (6 sources) Antihistamine hydrOXYzine HCl Active Lisinopril (6 sources) Angiotensin Converting Enzyme Inhibitor Lisinopril Active losartan potassium 25 mg oral tablet (3 sources) Angiotensin 2 Receptor Ana Laura End: 12-30-2023 take 1 tablet by mouth once daily losartan (Cozaar) 25 MG tablet Take 1 tablet by mouth Daily 12/30/2023 Discontinued (Duplicate order) methylPREDNISolone 4 mg oral tablet (1 source) Corticosteroid Start: 12-04-2020 methylPREDNISolone 4 MG as directed Orally Once a day for 6 days Nov, Active mupirocin 0.02 mg/mg topical ointment (6 sources) RNA Synthetase Inhibitor Antibacterial Start: 10-06-2023 mupirocin (Bactroban) 2 % ointment 10/06/2023 Active Start: 05-10-2021 Mupirocin 2 % 1 application Externally Three times a day for 7 days Apr, Active ofloxacin 3 mg/ml otic solution (5 sources) Quinolone Antimicrobial Start: 08-11-2023 ofloxacin (Floxin) 0.3 % otic solution instill 5 (FIVE) DROPS into the affected EAR TWICE DAILY FOR 7 DAYS 08/11/2023 Active pravastatin sodium 40 mg oral tablet (17 sources) HMG-CoA Reductase Inhibitor Start: 10-01-2023 take 1 tablet by mouth at bedtime pravastatin (Pravachol) 40 MG tablet Indications: Dyslipidemia (CMS/HCC) Take 1 tablet (40 mg) by mouth at bedtime 90 tablet 1 10/01/2023 Active Pravastatin Acti ve Pravastatin Sodi um Active Semaglutide, 2 MG/DOSE, (Ozempic, 2 MG/DOSE,) 8 MG/3ML solution pen-injector (5 sources) Start: 01-26-2024 End: 04-25-2024 Semaglutide, 2 MG/DOSE, (Ozempic, 2 MG/DOSE,) 8 MG/3ML solution pen-injector Indications: Type 2 diabetes mellitus without complication, without long-term current use of insulin (CMS/HCC) Inject 2 mg under the skin every 7 (seven) days 9 mL 1 01/26/2024 04/25/2024 Active Start: 10-01-2023 Semaglutide, 2 MG/DOSE, (Ozempic, 2 MG/DOSE,) 8 MG/3ML solution pen-injector Indications: Type 2 diabetes mellitus without complication, without long-term current use of insulin ([facility]) Inject 2 mg under the skin every 7 (seven) days 9 mL 1 10/01/2023 Active sertraline 50 mg oral tablet (11 sources) Serotonin Reuptake Inhibitor Start: 10-01-2023 End: 03-29-2024 take 1 tablet by mouth in the morning sertraline (Zoloft) 50 MG tablet Indications: JAN (generalized anxiety disorder) ([facility]) Take 1 tablet (50 mg) by mouth in the morning. 90 tablet 1 10/01/2023 03/29/2024 Active Zoloft Active spironolactone 25 mg oral tablet (5 sources) Aldosterone Antagonist Start: 10-01-2023 End: 03-29-2024 take 1 tablet by mouth once daily spironolactone (Aldactone) 25 MG tablet Indications: Essential hypertension ([facility]) Take 1 tablet (25 mg) by mouth Daily 90 tablet 1 10/01/2023 03/29/2024 Active tiZANidine 4 mg oral tablet (5 sources) Central alpha-2 Adrenergic Agonist Start: 10-01-2023 End: 03-29-2024 take 1 tablet by mouth every eight hours for muscle spasms tiZANidine (Zanaflex) 4 MG tablet Indications: Acute bilateral low back pain with right-sided sciatica Take 1 tablet (4 mg) by mouth every 8 (eight) hours if needed for muscle spasms 270 tablet 1 10/01/2023 03/29/2024 Active Completed/Discontinued Medications Medication Drug Class(es) Dates Sig (Normalized) Sig (Original) cefTRIAXone (4 sources) Cephalosporin Antibacterial Start: 05-26-2018 Rocephin 500 mg May, 1 g Problems Active Problems Problem Classification Problem Date Documented Da te Episodic/Chronic Abdominal pain (4 sources) Right upper quadrant pain; Translations: [RIGHT UPPER QUADRANT PAIN] Onset: 07-24-2022 Episodic Anxiety disorders (10 sources) Mixed anxiety and depressive disorder; Translations: [Other specified anxiety disorders] Onset: 06-05-2023 06-05-2023 Chronic Diabetes mellitus without complication (14 sources) Type 2 diabetes mellitus without complications; Translations: [Type 2 diabetes mellitus without complication] Onset: 03-10-2022 Chronic Disorders of lipid metabolism (8 sources) Hyperlipidemia, unspecified; Translations: [Dyslipidemia] Onset: 03-09-2020 06-05-2023 Chronic Essential hypertension (12 sources) Essential (primary) hypertension; Translations: [Essential hypertension] Onset: 03-09-2020 Chronic Nausea and vomiting (6 sources) Nausea and vomiting; Translations: [Nausea with vomiting, unspecified] Episodic Other aftercare (1 source) correction (current) use of aspirin; Translations: [HALFWAY CURRENT USE OF ASPIRIN] Onset: 07-29-2022 Episodic Other aftercare (1 source) Other [facility]p (current) drug therapy; Translations: [OTH HALFWAY CURRENT DRUG THERAPY] Onset: 07-29-2022 Episodic Other ear and sense organ disorders (6 sources) Otitis externa; Translations: [Other otitis externa, bilateral] Chronic Other gastrointestinal disorders (12 sources) Diarrhea; Translations: [Diarrhea, unspecified] Episodic Other gastrointestinal disorders (6 sources) Stool DNA-based colorectal cancer screening positive; Translations: [Other fecal abnormalities] Onset: 12-30-2023 12-30-2023 Episodic Other gastrointestinal disorders (6 sources) Constipation; Translations: [Constipation, unspecified] Onset: 12-30-2023 12-30-2023 Episodic Other nervous system disorders (5 sources) Entrapment of right ulnar nerve; Translations: [Lesion of ulnar nerve, right upper limb] Onset: 10-01-2023 10-01-2023 Chronic Other nutritional; endocrine; and metabolic disorders (5 sources) Morbid obesity; Translations: [Morbid (severe) obesity due to excess calories] Onset: 03-09-2020 06-05-2023 Chronic Residual codes; unclassified (5 sources) Sleep apnea; Translations: [Sleep apnea, unspecified] Onset: 08-06-2019 06-05-2023 Chronic Spondylosis; intervertebral disc disorders; other back problems (1 source) Other intervertebral disc degeneration, lumbar region; Translations: [Other intervertebral disc degeneration, lumbar region] Onset: 06-23-2023 Chronic Unclassified (1 source) Low back pain, unspecified; Translations: [Low back pain, unspecified] Onset: 06-23-2023 Past or Other Problems Problem Classification Problem Date Documented Date Episodic/Chronic Genitourinary symptoms and ill-defined conditions (3 sources) Dysuria Onset: 10-10-2021 Resolved: 10-10-2021 Episodic Immunizations and screening for infectious disease (7 sources) Contact with and (suspected) exposure to other viral communicable diseases; Translations: [Methicillin resistant staphylococcus aureus positive] Onset: 02-19-2021 Resolved: 02-19-2021 Episodic Other nutritional; endocrine; and metabolic disorders (5 sources) Hyperuricemia; Translations: [Hyperuricemia without signs of inflammatory arthritis and tophaceous disease] Onset: 06-05-2023 06-05-2023 Episodic Other screening for suspected conditions (not mental disorders or infectious disease) (7 sources) Patient encounter status; Translations: [Encounter for screening for malignant neoplasm of colon] Onset: 06-05-2023 06-05-2023 Episodic Skin and subcutaneous tissue infections (1 source) Cellulitis of right toe Onset: 05-10-2021 Resolved: 05-10-2021 Episodic Spondylosis; intervertebral disc disorders; other back problems (5 sources) Acute back pain with sciatica; Translations: [Lumbago with sciatica, right side] Onset: 06-05-2023 06-05-2023 Episodic Urinary tract infections (3 sources) Urinary tract infection, site not specified Onset: 10-10-2021 Resolved: 10-10-2021 Episodic Viral infection (2 sources) COVID-19 Onset: 02-19-2021 Resolved: 02-19-2021 Results Test Name Value Interpretation Reference Range Facility AMYLASEon 07-25-2022 Amylase [Catalytic activity/Vol] 32 U/L Normal 25-115 [facility] [place] Comment on above: Performed By: #### L IPA, JORDON, CMP #### [facility] [address] [address] [address] Brady Sanders CBC AUTO DIFFon 07-25-2022 BASO # 0.0 103/ul Normal 0.0-0.1 [facility] [place] Comment on above: Performed By: #### C BC #### [facility] [address] [address] [address] Brady Sanders Basophils/100 WBC (Bld) 0.4 % Normal 0.2-2.0 [facility] [place] Comment on above: Performed By: #### C BC #### [facility] [address] [place] [address] Dr. Brady Sanders EO # 0.1 103/ul Normal 0.0-0.7 [facility] [place] Comment on above: Performed By: #### C BC #### [facility] [address] [place] [address] Dr. Brady Sanders Eosinophils/100 WBC (Bld) 1.5 % Normal 0.9-7.0 [facility] [place] Comment on above: Performed By: #### C BC #### [facility] [address] [place] [address] Dr. Brady Sanders Erythrocyte distribution width (RBC) [Ratio] 13.2 % Normal 11.0-15.0 [facility] [place] Comment on above: Performed By: #### C BC #### [facility] [address] [place] [address] Dr. Brady Sanders Hematocrit (Bld) [Volume fraction] 41.0 % Critically low 42.0-54.0 [facility] [place] Comment on above: Performed By: #### C BC #### [facility] [address] [place] [address] Dr. Brady Sanders Hemoglobin (Bld) [Mass/Vol] 13.8 g/dL Critically low 14.0-18.0 [facility] [place] Comment on above: Performed By: #### C BC #### [facility] [address] [place] [address] Dr. Brady Sanders IG # 0.03 10e3/ul Normal 0.00-0.03 [facility] [place] Comment on above: Performed By: #### C BC #### [facility] [address] [place] [address] Dr. Brady Sanders IG % 0.4 % Normal 0.0-0.5 [facility] [place] Comment on above: Performed By: #### C BC #### [facility] [address] [place] [address] Dr. Brady Sanders LYMPH # 1.8 103/ul Normal 1.2-3.8 [facility] [place] Comment on above: Performed By: #### C BC #### [facility] [address] [place] [address] Dr. Brady Sanders Lymphocytes/100 WBC (Bld) 21.4 % Normal 20.5-60.0 [facility] [place] Comment on above: Performed By: #### C BC #### [facility] [address] [place] [address] Dr. Brady Sanders MANUAL DIFF REQ NO Normal [facility] Comment on above: Performed By: #### C BC #### [facility] [address] [place] [address] Dr. Brady Sanders MCH (RBC) [Entitic mass] 28.1 pg Normal 25.9-34.0 [facility] [place] Comment on above: Performed By: #### C BC #### [facility] [address] [place] [address] Dr. Brady Sanders MCHC (RBC) [Mass/Vol] 33.7 g/dL Normal 29.9-35.2 [facility] [place] Comment on above: Performed By: #### C BC #### [facility] [address] [place] [address] Dr. Brady Sanders MCV (RBC) [Entitic vol] 83.5 fL Normal 80.0-94.0 [facility] [place] Comment on above: Performed By: #### C BC #### [facility] [address] [place] [address] Dr. Brady Sanders MONO # 0.5 103/ul Normal 0.3-0.8 [facility] [place] Comment on above: Performed By: #### C BC #### [facility] [address] [place] [address] Dr. Brady Sanders Monocytes/100 WBC (Bld) 6.2 % Normal 1.7-12.0 [facility] [place] Comment on above: Performed By: #### C BC #### [facility] [address] [place] [address] Dr. Brady Sanders NEUT # 5.9 103/ul Normal 1.4-6.5 [facility] Comment on above: Performed By: #### C BC #### [facility] [address] [address] [address] Brady Sanders Neutrophils/100 WBC (Bld) 70.1 % Normal 43.0-75.0 [facility] [place] Comment on above: Performed By: #### C BC #### [facility] [address] [place] [address] Dr. Brady Sanders Platelet mean volume (Bld) [Entitic vol] 9.6 fL Normal 9.5-13.5 [facility] [place] Comment on above: Performed By: #### C BC #### [facility] [address] [place] [address] Dr. Brady Sanders PLT 216 103/ul Normal 150-450 [facility] [place] Comment on above: Performed By: #### C BC #### [facility] [address] [place] [address] Dr. Brady Sanders RBC 4.91 106/ul Normal 4.70-6.10 [facility] Comment on above: Performed By: #### C BC #### [facility] [address] [place] [address] Dr. Brady Sanders WBC 8.4 103/ul Normal 4.0-11.0 [facility] [place] Comment on above: Performed By: #### C BC #### [facility] [address] [place] [address] ABD/PELV W CONon [...] by: KAVIN BRIONES Date: 2022-07-25 10:58 Normal [facility] [place] LIPASEon 07-25-2022 Lipase [Catalytic activity/Vol] 96.0 U/L Normal 73.0-393.0 [facility] [place] Comment on above: Performed By: #### L GERRY JORDON, CMP #### [facility] [address] [place] [address] Dr. Brady Sanders PROF 14(COMP METB)on 023 Albumin [Mass/Vol] 3.4 g/dL Normal 3.4-5.0 [facility] Comment on above: Performed By: #### L GERRY JORDON, CMP #### [facility] [address] [place] [address] Dr. Brady Sanders Albumin/Globulin [Mass ratio] 0.9 {ratio} Normal [facility] [place] Comment on above: Performed By: #### L IPA JORDON, CMP #### [facility] [address] [place] [address] Dr. Brady Sanders ALP [Catalytic activity/Vol] 88 U/L Normal 46-116 [facility] [place] Comment on above: Performed By: #### L IPA JORDON, CMP #### [facility] [address] [place] [address] Dr. Brady Sanders ALT [Catalytic activity/Vol] 27 U/L Normal 16-63 [facility] [place] Comment on above: Performed By: #### L IPA JORDON, CMP #### [facility] [address] [place] [address] Dr. Brady Sanders Anion gap [Moles/Vol] 9.2 mmol/L Normal [facility] [place] Comment on above: Performed By: #### L JORDON GARRETT, CMP #### [facility] [address] [place] [address] Dr. Brady Sanders AST [Catalytic activity/Vol] 18 U/L Normal 15-37 [facility] [place] Comment on above: Performed By: #### L IPAJORDON, CMP #### [facility] [address] [place] [address] Dr. Brady Sanders Bilirubin [Mass/Vol] 0.4 mg/dL Normal 0.2-1.0 [facility] [place] Comment on above: Performed By: #### L JORDON GARRETT, CMP #### [facility] [address] [place] [address] Dr. Brady Sanders Calcium [Mass/Vol] 8.5 mg/dL Normal 8.5-10.1 [facility] Comment on above: Performed By: #### L GERRY JORDON, CMP #### [facility] [address] [place] [address] Dr. Brady Sanders Chloride [Moles/Vol] 103 mmol/L Normal 98-107 [facility] Comment on above: Performed By: #### L JORDON GARRETT, CMP #### [facility] [address] [place] [address] Dr. Brady Sanders CO2 [Moles/Vol] 31.1 mmol/L Normal 21.0-32.0 [facility] Comment on above: Performed By: #### L JORDON GARRETT, CMP #### [facility] [address] [place] [address] Dr. Brady Sanders Creatinine [Mass/Vol] 0.79 mg/dL Normal 0.70-1.30 [facility] Comment on above: Performed By: #### L JORDON GARRETT, CMP #### [facility] [address] [place] [address] Dr. Brady Sanders EGFR-AF POLISH >60 Normal >=[address] [facility] Comment on above: Performed By: #### L GERRY JORDON, CMP #### [facility] [address] [place] [address] Dr. Brady Sanders EGFR-NON AF POLISH >60 Normal >=60 [facility] [place] Comment on above: Performed By: #### L JORDON GARRETT, CMP #### [facility] [address] [place] [address] Dr. Brady Sanders Globulin (S) [Mass/Vol] 3.8 g/dL Normal [facility] [place] Comment on above: Performed By: #### L JORDON GARRETT, CMP #### [facility] [address] [place] [address] Dr. Brady Sanders Glucose [Mass/Vol] 140 mg/dL Critically high 74-106 [facility] Comment on above: Performed By: #### L JORDON GARRETT, CMP #### [facility] [address] [place] [address] Dr. Brady Sanders Potassium [Moles/Vol] 3.3 mmol/L Critically low 3.5-5.1 [facility] [place] Comment on above: Performed By: #### L JORDON GARRETT, CMP #### [facility] [address] [place] [address] Dr. Brady Sanders Protein [Mass/Vol] 7.2 g/dL Normal 6.4-8.2 [facility] Comment on above: Performed By: #### L JORDON GARRETT, CMP #### [facility] [address] [place] [address] Dr. Brady Sanders Sodium [Moles/Vol] 140 mmol/L Normal 136-145 [facility] Comment on above: Performed By: #### L JORDON GARRETT, CMP #### [facility] [address] [place] [address] Dr. Brady Sanders Urea nitrogen [Mass/Vol] 10.0 mg/dL Normal 7.0-18.0 [facility] Comment on above: Performed By: #### L JORDON GARRETT, CMP #### [facility] [address] [place] [address] Dr. Brady Sanders Urea nitrogen/Creatinine [Mass ratio] 12.7 mg/mg Normal [facility] Comment on above: Performed By: #### L JORDON GARRETT, CMP #### [facility] [address] [address] [address] Brady Sanders NM HEPATOBILIARY SCAN W EFon 07-24-2022 NM HEPATOBILIARY SCAN W EF HIDA SCAN WITH GALLBLADDER EJECTION FRACTION HISTORY: Abdominal Pain. COMPARISON: Ultrasound 07/11/2022. METHOD: Following IV injection of 5. mCi of [id number] , anterior imaging of the abdomen was [...] by: KIM JARRETT Date: 2022-07-24 09:14 Normal [facility] US SINGLE QUAD RT UPPERon US SINGLE [...] by: MIKAYLA COVINGTON Date: 2022-07-11 11:55 Normal [facility] GLYCOHEMOGLOBIN A1Con 2022 ADA RECOMMENDATION SEE BELOW Normal [facility] Comment on above: Result Comment: ADA RECOMMENDED LIMIT 4.0 - 6.0 ADA THERAPEUTIC TARGET < 7.0 ACTION SUGGESTED > 7.0 Performed By: #### A 1C #### [facility] [address] [address] [address] Brady Sanders Glucose [Mass/Vol] 143 mg/dL Normal [facility] Comment on above: Performed By: #### A 1C #### [facility] [address] [place] [address] Dr. Brady Sanders HbA1c (Bld) [Mass fraction] 6.6 % Critically high 4.5-6.2 [facility] Comment on above: Performed By: #### A 1C #### [facility] [address] [place] [address] Dr. Brady Sanders COVID + FLU Quick Testingon 03-13-2022 SARS-CoV-2 (COVID-19) RNA ADELINA+probe Ql (Unsp spec) Positive [facility] Other COVID + FLU Quick Testing Negative [facility] Other CBC AUTO DIFFon 03-07-2022 BASO # 0.0 103/ul Normal 0.0-0.1 [facility] Comment on above: Performed By: #### C BC #### [facility] [address] [place] [address] Dr. Brady Sanders Basophils/100 WBC (Bld) 0.5 % Normal 0.2-2.0 [facility] Comment on above: Performed By: #### C BC #### [facility] [address] [place] [address] Dr. Brady Sanders EO # 0.1 103/ul Normal 0.0-0.7 [facility] Comment on above: Performed By: #### C BC #### [facility] [address] [place] [address] Dr. Brady Sanders Eosinophils/100 WBC (Bld) 1.8 % Normal 0.9-7.0 [facility] [place] Comment on above: Performed By: #### C BC #### [facility] [address] [place] [address] Dr. Brady Sanders Erythrocyte distribution width (RBC) [Ratio] 13.5 % Normal 11.0-15.0 [facility] Comment on above: Performed By: #### C BC #### [facility] [address] [place] [address] Dr. Brady Sanders Hematocrit (Bld) [Volume fraction] 46.5 % Normal 42.0-54.0 [facility] Comment on above: Performed By: #### C BC #### [facility] [address] [place] [address] Dr. Brady Sanders Hemoglobin (Bld) [Mass/Vol] 15.6 g/dL Normal 14.0-18.0 [facility] Comment on above: Performed By: #### C BC #### [facility] [address] [place] [address] Dr. Brady Sanders IG # 0.02 10e3/ul Normal 0.00-0.03 [facility] Comment on above: Performed By: #### C BC #### [facility] [address] [place] [address] Dr. Brady Sanders IG % 0.3 % Normal 0.0-0.5 [facility] Comment on above: Performed By: #### C BC #### [facility] [address] [place] [address] Dr. Brady Sanders LYMPH # 1.8 103/ul Normal 1.2-3.8 [facility] Comment on above: Performed By: #### C BC #### [facility] [address] [place] [address] Dr. Brady Sanders Lymphocytes/100 WBC (Bld) 22.3 % Normal 20.5-60.0 [facility] Comment on above: Performed By: #### C BC #### [facility] [address] [place] [address] Dr. Brady Sanders MANUAL DIFF REQ NO Normal [facility] Comment on above: Performed By: #### C BC #### [facility] [address] [place] [address] Dr. Brady Sanders MCH (RBC) [Entitic mass] 28.0 pg Normal 25.9-34.0 [facility] Comment on above: Performed By: #### C BC #### [facility] [address] [place] [address] Dr. Brady Sanders MCHC (RBC) [Mass/Vol] 33.5 g/dL Normal 29.9-35.2 [facility] [place] Comment on above: Performed By: #### C BC #### [facility] [address] [place] [address] Dr. Brady Sanders MCV (RBC) [Entitic vol] 83.3 fL Normal 80.0-94.0 [facility] Comment on above: Performed By: #### C BC #### [facility] [address] [address] [address] Brady Sanders MONO # 0.5 103/ul Normal 0.3-0.8 [facility] Comment on above: Performed By: #### C BC #### [facility] [address] [place] [address] Dr. Brady Sanders Monocytes/100 WBC (Bld) 6.1 % Normal 1.7-12.0 [facility] Comment on above: Performed By: #### C BC #### [facility] [address] [place] [address] Dr. Brady Sanders NEUT # 5.4 103/ul Normal 1.4-6.5 [facility] Comment on above: Performed By: #### C BC #### [facility] [address] [place] [address] Dr. Brady Sanders Neutrophils/100 WBC (Bld) 69.0 % Normal 43.0-75.0 [facility] Comment on above: Performed By: #### C BC #### [facility] [address] [place] [address] Dr. Brady Sanders Platelet mean volume (Bld) [Entitic vol] 10.3 fL Normal 9.5-13.5 [facility] Comment on above: Performed By: #### C BC #### [facility] [address] [place] [address] Dr. Brady Sanders PLT 230 103/ul Normal 150-450 [facility] Comment on above: Performed By: #### C BC #### [facility] [address] [place] [address] Dr. Brady Sanders RBC 5.58 106/ul Normal 4.70-6.10 [facility] Comment on above: Performed By: #### C BC #### [facility] [address] [address] [address] Brady Sanders WBC 7.9 103/ul Normal 4.0-11.0 [facility] Comment on above: Performed By: #### C BC #### [facility] [address] [address] [address] Brady Sanders GLYCOHEMOGLOBIN A1Con 2021 ADA RECOMMENDATION SEE BELOW Normal [facility] Comment on above: Result Comment: ADA RECOMMENDED LIMIT 4.0 - 6.0 ADA THERAPEUTIC TARGET < 7.0 ACTION SUGGESTED > 7.0 Performed By: #### A 1C #### [facility] [address] [place] [address] Dr. Brady Sanders Glucose [Mass/Vol] 200 mg/dL Normal [facility] Comment on above: Performed By: #### A 1C #### [facility] [address] [place] [address] Dr. Brady Sanders HbA1c (Bld) [Mass fraction] 8.6 % Critically high 4.5-6.2 [facility] Comment on above: Performed By: #### A 1C #### [facility] [address] [place] [address] Dr. Brady Sanders LIPID PROFILEon 03-07-2022 CHOL-HDL RATIO NORM SEE BELOW Normal [facility] Comment on above: Result Comment: 3.3 - 4.4 LOW RISK 4.4 - 7.1 AVERAGE RISK 7.1 - 11.0 MODERATE RISK >11.0 HIGH RISK Performed By: #### L JORDON GARRETT, CMP #### [facility] [address] [place] [address] Dr. Brady Sanders Cholesterol [Mass/Vol] 136 mg/dL Normal <=200 [facility] Comment on above: Performed By: #### L JORDON GARRETT, CMP #### [facility] [address] [place] [address] Dr. Brady Sanders Cholesterol in HDL [Mass/Vol] 26 mg/dL Critically low 40-60 [facility] Comment on above: Performed By: #### L JORDON GARRETT, CMP #### [facility] [address] [address] [address] Brady Sanders Cholesterol in LDL [Mass/Vol] 77.2 mg/dL Normal [facility] Comment on above: Performed By: #### L GERRY JORDON, CMP #### [facility] [address] [address] [address] Brady Sanders Cholesterol.total/C holesterol in HDL [Mass ratio] 5.2 {ratio} Normal [facility] Comment on above: Performed By: #### L GERRY JORDON, CMP #### [facility] [address] [address] [address] Brady Sanders HDL NORMAL > or = 60 mg/dl - LO W CARDIOVASCULAR RISK <40 mg/dl - HIGH CARDIOVASCULAR RISK Normal [facility] Comment on above: Performed By: #### L JORDON GARRETT, CMP #### [facility] [address] [address] [address] Brady Sanders LDL CALC NORMAL SEE BELOW Normal [facility] Comment on above: Result Comment: <100 mg/dl OPTIMAL 100 - 129 mg/dl NEAR OR ABOVE OPTIMAL 130 - 159 mg/dl BORDERLINE HIGH 160 - 189 mg/dl HIGH >190 mg/dl VERY HIGH Performed By: #### L JORDON GARRETT, CMP #### [facility] [address] [address] [address] Brady Sanders Triglyceride [Mass/Vol] 164 mg/dL Critically high <=150 [facility] Comment on above: Performed By: #### L JORDON GARRETT, CMP #### [facility] [address] [address] [address] Brady Sanders VLDL CALC 32.8 mg/dL Normal [facility] Comment on above: Performed By: #### L GERRY JORDON, CMP #### [facility] [address] [address] [address] Brady Sanders MICROALBUMIN, RAND URon 12-1 mALB <1.3 Normal <=30.0 [facility] Comment on above: Performed By: #### L GERRY JORDON, CMP #### [facility] [address] [address] [address] Brady Sanders PROF 14(COMP METB)on 022 Albumin [Mass/Vol] 3.8 g/dL Normal 3.4-5.0 [facility] Comment on above: Performed By: #### L IPA, JORDON, CMP #### [facility] [address] [address] [address] Brady Sanders Albumin/Globulin [Mass ratio] 1.0 {ratio} Normal [facility] Comment on above: Performed By: #### L IPA, JORDON, CMP #### [facility] [address] [address] [address] Brady Sanders ALP [Catalytic activity/Vol] 102 U/L Normal 46-116 [facility] Comment on above: Performed By: #### L IPA, JORDON, CMP #### [facility] [address] [address] [address] Brady Sanders ALT [Catalytic activity/Vol] 41 U/L Normal 16-63 [facility] Comment on above: Performed By: #### L IPA, JORDON, CMP #### [facility] [address] [address] [address] Brady Sanders Anion gap [Moles/Vol] 14.7 mmol/L Normal [facility] Comment on above: Performed By: #### L IPA, JORDON, CMP #### [facility] [address] [address] [address] Brady Sanders AST [Catalytic activity/Vol] 24 U/L Normal 15-37 [facility] Comment on above: Performed By: #### L IPA, JORDON, CMP #### [facility] [address] [address] [address] Brady Sanders Bilirubin [Mass/Vol] 0.4 mg/dL Normal 0.2-1.0 [facility] Comment on above: Performed By: #### L IPA, JORDON, CMP #### [facility] [address] [address] [address] Brady Sanders Calcium [Mass/Vol] 8.8 mg/dL Normal 8.5-10.1 [facility] Comment on above: Performed By: #### L JORDON GARRETT, CMP #### [facility] [address] [place] [address] Dr. Brady Sanders Chloride [Moles/Vol] 99 mmol/L Normal 98-107 [facility] Comment on above: Performed By: #### L JORDON GARRETT, CMP #### [facility] [address] [place] [address] Dr. Brady Sanders CO2 [Moles/Vol] 26.8 mmol/L Normal 21.0-32.0 [facility] Comment on above: Performed By: #### L JORDON GARRETT, CMP #### [facility] [address] [place] [address] Dr. Brady Sanders Creatinine [Mass/Vol] 1.00 mg/dL Normal 0.70-1.30 [facility] Comment on above: Performed By: #### L JORDON GARRETT, CMP #### [facility] [address] [place] [address] Dr. Brady Sanders EGFR-AF POLISH >60 Normal >=60 [facility] Comment on above: Performed By: #### L JORDON GARRETT, CMP #### [facility] [address] [place] [address] Dr. Brady Sanders EGFR-NON AF POLISH >60 Normal >=60 [facility] Comment on above: Performed By: #### L JORDON GARRETT, CMP #### [facility] [address] [place] [address] Dr. Brady Sanders Globulin (S) [Mass/Vol] 3.7 g/dL Normal [facility] Comment on above: Performed By: #### L JORDON GARRETT, CMP #### [facility] [address] [place] [address] Dr. Brady Sanders Glucose [Mass/Vol] 317 mg/dL Critically high 74-106 [facility] Comment on above: Performed By: #### L JORDON GARRETT, CMP #### [facility] [address] [place] [address] Dr. Brady Sanders Potassium [Moles/Vol] 3.5 mmol/L Normal 3.5-5.1 [facility] Comment on above: Performed By: #### L JORDON GARRETT, CMP #### [facility] [address] [address] [address] Brady Sanders Protein [Mass/Vol] 7.5 g/dL Normal 6.4-8.2 [facility] Comment on above: Performed By: #### L JORDON GARRETT, CMP #### [facility] [address] [address] [address] Brady Sanders Sodium [Moles/Vol] 137 mmol/L Normal 136-145 [facility] Comment on above: Performed By: #### L JORDON GARRETT, CMP #### [facility] [address] [place] [address] Dr. Brady Sanders Urea nitrogen [Mass/Vol] 11.0 mg/dL Normal 7.0-18.0 [facility] Comment on above: Performed By: #### L JORDON GARRETT, CMP #### [facility] [address] [place] [address] Dr. Brady Sanders Urea nitrogen/Creatinine [Mass ratio] 11.0 mg/mg Normal [facility] Comment on above: Performed By: #### L JORDON GARRETT, CMP #### [facility] [address] [place] [address] Dr. Brady Sanders Urinalysis - AUTOMATEDon Appearance (U) clear [employer] Other Bilirubin Ql (U) Negative [employer] Other Color (U) medium tellow [facility] Other Glucose Ql (U) >1000 [employer] Other Hemoglobin Ql (U) trace [facility] Other Ketones Ql (U) Negative [employer] Other Leukocyte esterase Test strip Ql (U) trace [facility] Other Nitrite Ql (U) Negative [employer] Other pH (U) 5.5 [pH] [facility] Other Protein Ql (U) Negative [employer] Other Specific gravity (U) [Rel density] 1.015 [facility] Other Urobilinogen (U) [Mass/Vol] 0.2 mg/dL [facility] Other Urinalysis - AUTOMATED [facility] Other Urine Cultureon 10-10-2021 Bacteria identified Cx Nom (U) Reason for Exam Dysuria Urine >100,000 colonies/ml mixed bacterial skin contaminants 2 Days PERFORMED BY: [place] [address] PATHOLOGIST EMPLOYMENT MANAGER TIA CORDOVA M.D. [facility] Comment on above: Performed By: #### C UU #### [facility] [address] [place] [address] Bacteria identified Cx Nom (U) [facility] Other Quick Fluon 02-19-2021 FLUAV Ab CF (S) [Titer] Negative [facility] Other FLUBV Ab CF (S) [Titer] Negative [facility] Other Vital Signs Date Time Vital Sign Value Performing Clinician Armaan santana 12-30-2023 09:07-0400 Body mass index (BMI) [Ratio] 42.35 kg/m2 Margarette Rojaspatrick [employer] Work Phone: [facility] [email or web address] 12-30-2023 09:07-0400 Body temperature 97.3 [degF] Margarette Rojaspatrick [employer] Work Phone: [facility] [email or web address] 12-30-2023 09:07-0400 Body weight 145.6 kg Margarette Rojaspatrick [employer] Work Phone: [facility] [email or web address] 12-30-2023 09:07-0400 Diastolic blood pressure 62 mm[Hg] Margarette Rojaspatrick [employer] Work Phone: [facility] 12-30-2023 09:07-0400 Heart rate 85 /min Margarette Rojaspatrick [employer] Work Phone: [facility] 12-30-2023 09:07-0400 SaO2% (BldA) [Mass fraction] 95 % Margarette Rojaspatrick [employer] Work Phone: [facility] 12-30-2023 09:07-0400 Systolic blood pressure 112 mm[Hg] Margarette Rojaspatrick [employer] Work Phone: [facility] 03-13-2022 18:15-0500 Body height 182.88 cm Mamie Kassandra Other [facility] Other 03-13-2022 18:15-0500 Body mass index (BMI) [Ratio] 47.46 kg/m2 Mamie Kassandra Other [facility] Other 03-13-2022 18:15-0500 Body temperature 98 [degF] Mamie Sweetmond Other [facility] Other 03-13-2022 18:15-0500 Body weight 158.76 kg Mamie Kassandra Other [facility] Other 03-13-2022 18:15-0500 Respiratory rate 18 /min Mamie Sweetmond Other [facility] Other 03-13-2022 18:15-0500 SaO2% (BldA) [Mass fraction] 94 % Mamie Kassandra Other [facility] Other 10-10-2021 10:30-0400 Body height 182.88 cm Mamie Kassandra Other [facility] Other 10-10-2021 10:30-0400 Body mass index (BMI) [Ratio] 46.11 kg/m2 Mamie Cannon Other [facility] Other 10-10-2021 10:30-0400 Body temperature 98.1 [degF] Mamie Sweetmond Other [facility] Other 10-10-2021 10:30-0400 Body weight 154.22 kg Mamie Sweetmond Other [facility] Other 10-10-2021 10:30-0400 Diastolic blood pressure 95 mm[Hg] Mamie Cannon Other [facility] Other 10-10-2021 10:30-0400 Respiratory rate 20 /min Mamie Cannon Other [facility] Other 10-10-2021 10:30-0400 SaO2% (BldA) [Mass fraction] 98 % Mamie Cannon Other [facility] Other 10-10-2021 10:30-0400 Systolic blood pressure 158 mm[Hg] aMmie Cannon Other [facility] Other 05-10-2021 10:00-0500 Body height 182.88 cm Alexandra Dimas Other [facility] Other 05-10-2021 10:00-0500 Body mass index (BMI) [Ratio] 49.28 kg/m2 Alexandra Dimas Other [facility] Other 05-10-2021 10:00-0500 Body temperature 96.4 [degF] Alexandra Dimas Other [facility] Other 05-10-2021 10:00-0500 Body weight 164.84 kg Alexandra Dimas Other [facility] Other 05-10-2021 10:00-0500 Diastolic blood pressure 84 mm[Hg] Alexandra Dimas Other [facility] Other 05-10-2021 10:00-0500 Respiratory rate 18 /min Alexandra Dimas Other [facility] Other 05-10-2021 10:00-0500 SaO2% (BldA) [Mass fraction] 96 % Alexandra Dimas Other [facility] Other 05-10-2021 10:00-0500 Systolic blood pressure 147 mm[Hg] Alexandra Dimas Other [facility] Other 02-19-2021 10:00-0500 Body height 182.88 cm Alexandra Ginty Other [facility] Other 02-19-2021 10:00-0500 Body mass index (BMI) [Ratio] 48.82 kg/m2 Alexandra Ginty Other [facility] Other 02-19-2021 10:00-0500 Body temperature 96.4 [degF] Alexandra Ginty Other [facility] Other 02-19-2021 10:00-0500 Body weight 163.3 kg Alexandra Ginty Other [facility] Other 02-19-2021 10:00-0500 SaO2% (BldA) [Mass fraction] 95 % Alexandra Gill Other [facility] Other Encounters Encounter Date Encounter Type Care Provider Facility Start: 01-20-2024 End: 01-26-2024 Refill Akosua Ramos MA [facility] Comment on above: Type 2 diabetes cassy itus without complication, without long- term current use of insulin (CMS/HCC) Start: 01-05-2024 End: 01-05-2024 Orders Only Margarette Gutierrezk [employer] Work Phone: [facility] Comment on above: Type 2 diabetes cassy itus without complication, without long- term current use of insulin (CMS/HCC) (Primary Dx) Start: 12-30-2023 End: 12-30-2023 Bamboo flowsheet Margarette Rojaspatrick [employer] Work Phone: [facility] Start: 12-30-2023 End: 12-30-2023 Bamboo flowsheet Margarette Palomarestrick [employer] Work Phone: [facility] Start: 12-30-2023 End: 12-30-2023 Office outpatient visit 15 minutes Margarette White [employer] Work Phone: [facility] Comment on above: Type 2 diabetes cassy itus without complication, without long- term current use of insulin (CMS/HCC) (Primary Dx); Dyslipidemia (CMS/HCC); Essential hypertension (CMS/HCC); Positive colorectal cancer screening using Cologuard test; Screening for colon cancer; Constipation, unspecified constipation type Start: 12-30-2023 End: 12-30-2023 ambulatory MARGARETTE PALOMARESTRICK Not Available Start: 11-03-2023 End: 11-03-2023 ambulatory Swapnil Perkins MD Facility:[facility] Start: 10-01-2023 Preoperative state Margarette murphy [employer] Work Phone: [facility] Start: 10-01-2023 End: 10-01-2023 ambulatory YIN FAWWAD Not Available Start: 08-04-2023 End: 08-04-2023 ambulatory JEANNE LUCIANO Not Available Start: 07-31-2023 End: 07-31-2023 ambulatory YIN FAWWAD Not Available Start: 07-24-2023 End: 08-23-2023 ambulatory [facility] Start: 07-14-2023 End: 07-14-2023 ambulatory YIN FAWWAD Not Available Start: 06-24-2023 End: 06-24-2023 ambulatory YIN FAWWAD Not Available Start: 06-23-2023 End: 07-23-2023 ambulatory [facility] Start: 06-05-2023 Patient encounter procedure Margarette White [employer] Work Phone: [facility] Start: 06-05-2023 End: 06-05-2023 ambulatory YIN FAWWAD Not Available Start: 07-25-2022 End: 07-25-[address] GILBERT GARCIA . Facility:[facility] Start: 07-24-2022 End: 07-25-2022 ambulatory YIN H FAWWAD Facility:[facility] Start: 07-11-2022 End: 07-12-2022 ambulatory YIN H FAWWAD Facility:[facility]1 Start: 06-03-2022 End: 06-04-2022 ambulatory YIN H FAWWAD Facility:[facility] Start: 03-13-2022 End: 03-13-2022 ambulatory Mamiehumphrey Cannon Other [facility] Start: 03-13-2022 Office outpatient vi sit 15 minutes Mamie Kassandra [facility] Start: 03-07-2022 End: 03-08-2022 ambulatory YIN H FAWWAD Facility:[facility] Start: 10-10-2021 End: 10-10-2021 ambulatory Mamie Kassandra Other [facility] Start: 10-10-2021 Office outpatient vi sit 15 minutes Mamie Kassandra [facility] Start: 10-10-2021 End: 10-10-2021 Departed Referred W[employer]ER FIXERPhoenix Cannon Work Phone: [facility] [place] Start: 05-10-2021 End: 05-10-2021 ambulatory Alexandra Dimas Other [facility] Start: 05-10-2021 Office outpatient vi sit 15 minutes Alexandra Dimas [facility] Start: 02-19-2021 End: 02-19-2021 ambulatory Alexandra Ginty Other [facility] Start: 02-19-2021 Office outpatient vi sit 15 minutes Alexandra Ginty [facility] Plan of Treatment Date Care Activity Detail Author Start: 06-17-2026 Screening for malign ant neoplasm of colon [facility] Start: 01-22-2025 Glaucoma screening Diabetes: R etinopathy Screening [facility] Start: 07-07-2024 Urine screening for protein Diabetes: Urine Protein Screening [facility] Start: 06-29-2024 End: 06-29-2024 Patient encounter procedure 06/29/2024 9:30 AM EDT Office Visit [facility] [address] [place] [id number] Margarette White NP [address] [place] [phone] [facility] Start: 03-24-2024 Hemoglobin A1c measurement Diabetes: Hemoglobin A1C [facility] Start: 12-30-2023 End: 12-29-2024 Hemoglobin A1c/Hemoglobin.total in Blood Hemoglobin A1c Lab Routine Type 2 diabetes mellitus without complication, without long-term current use of insulin ([facility]) Expected: 12/30/2023 (Approximate), Expires: 12/29/2024 [facility] Work Phone: Comment on above: Expected: 12/30/2023 (Approximate), Expires: 12/29/2024 Start: 12-30-2023 End: 12-30-2023 Patient encounter procedure 12/30/2023 9:00 AM EDT Office Visit [facility] [address] [place] [address] Margartete White, [employer] [address] [place] [address] Arrived [facility] Comment on above: Arrived Start: 11-23-2023 Influenza vaccination Influenza Vacc ine (#1) [facility] Start: 1975 Screening for malign ant neoplasm of colon [facility] Bacteria identified in Urine by Culture [facility] Immunizations Immunization Date Immunization Notes Care Provider Fa cility 01-16-2021 influenza, injectabl e, quadrivalent, preservative free Margarette White [employer] Work Phone: [facility] 01-16-2021 influenza virus vaccine, unspecified formulation Margarette White [employer] Work Phone: [facility] 02-06-2020 influenza, injectabl e, quadrivalent, contains preservative Margarette White [employer] Work Phone: [facility] 02-21-2019 Influenza, injectabl e, Madin [place] Canine Kidney, preservative free, quadrivalent Margarette White [employer] Work Phone: [facility] 01-02-2017 influenza, seasonal, injectable Margarette White [employer] Work Phone: [facility] 12-26-2015 influenza, seasonal, injectable, preservative free Margarette White [employer] Work Phone: [facility] 01-04-2015 influenza, seasonal, injectable, preservative free Margarette White [employer] Work Phone: [facility] 12-30-2013 influenza, seasonal, injectable Margarette White [employer] Work Phone: [facility] 01-07-2013 influenza, seasonal, injectable Margarette Esteswilberto MORALES Work Phone: [facility] Payers Date Payer Category Payer Private Health Insurance 1975 Unknown [id number] 1975 Unknown [id number] 1975 Unknown [id number] 1973 Unknown [id number] 1973 Unknown [id number] 1973 Unknown [id number] [id number] 1973 Unknown [id number] [id number] 1973 Unknown [id number] [id number] 1973 Unknown [id number] [id number] 1973 Unknown [id number] [id number] 1973 Unknown [id number] [id number] 1973 Unknown [id number] [id number] 1973 Unknown [id number] [id number] 1973 Unknown [id number] [id number] 1973 Unknown [id number] 1959 Unknown [id number] [id number] Self-pay Self Pay [id number] Unknown Susan BC/JM [id number] Social History Date Type Detail Facility Unknown if ever smoked [facility] Start: 10-01-2023 End: 12-23-2023 Sex Assigned At [facility] Start: 1975 Sex Assigned At Male F [facility] Start: 06-05-2023 Tobacco smoking stat [facility] Never smoked tobacco [facility] Start: 06-05-2023 Tobacco use and exposure Smokeless tobacco non-user [facility] Start: 10-01-2023 Alcoholic beverage intake Lifetime non-drinker (finding) [facility] Start: 10-01-2023 End: 12-23-2023 History of Social function [facility] How often do you nee d to have someone help you when you read instructions, pamphlets, or other written material from your doctor or pharmacy [SILS] Never [facility] Do you belong to any clubs or organizations such as shinto groups, unions, fraternal or athletic groups, or school groups? No [facility] Are you now , , , , never or living with a partner? [facility] How often to you hav e a drink containing alcohol? Monthly or less [facility] How many standard drinks containing alcohol do you have on a typical day? 1 or 2 [facility] How often do you hav e 6 or more drinks on 1 occasion? Never [facility] How hard is it for y ou to pay for the very basics like food, housing, medical care, and heating Somewhat hard [facility] Do you feel stress - tense, restless, nervous, or anxious, or unable to sleep at night because your mind is troubled all the time - these days [OSQ] To some extent [facility] (I/We) worried wheth er (my/our) food would run out before (I/we) got money to buy more. Sometimes true [facility] In the past 12 month s, was there a time when you were not able to pay the mortgage or rent on time? Yes [facility] Start: 1975 Sex assigned at Not on file N [facility] NEGATED: Highlighted rowStart: NINF History of tobacco use Passive smoker [facility] Clinical Notes 02-19-2021 to 01-20-2024 Telephone Encounter - Akosua Ramos MA - 01/20/2024 2:37 PM EDTTelephone Encounter - Akosua Ramos MA - 01/20/2024 2:37 PM EDTBvito White NP - 12/30/2023 11:59 AM EDTPatient Instructions Note Date & Type Note Facility 01-20-2024 Telephone encount er Note The prior auth for the dexcom was denied because he is not currently using insulin. [facility] 01-20-2024 Miscellaneous Notes Formattin g of this note might be different from the original. The prior auth for the dexcom was denied because he is not currently using insulin. documented in this encounter [facility] 12-30-2023 History of Presen t illness Narrative Associated Problem(s): Constipation Pt reports constipation, states he also has a tight, sometimes pinching feeling in the side of his abdomen, that comes and goes intermittently. . Reports this is not new, reports has been ongoing for several years. Reports he had full workup several years ago with no confirmation. States the Pain is 2-3 on scale of 0-10, and occurs randomly and dissipates. States happens once to twice per year. Advised pt to take Miralax and see if pain subsides after having bowel movement. Abdomen soft upon palpation. No rebound tenderness or guarding noted. Pt reports he does have hx of hemorrhoids and admits to small amount of blood on tissue paper after BM's. Pt did have positive colouguard 6 months ago, referred today to GI for colonoscopy. Advised pt to call office if symptoms worsen or do not improve. Associated Problem(s): Type 2 diabetes mellitus without complication, without long-term current use of insulin (CMS/HCC) Currently taking Glipizide 5mg BID Ozempic 2mg Most recent labs: hemoglobin A1C 6.4% Average FSBS range from BGs range between 100 and 124 No episodes of hypoglycemia since last OV. No medication adverse effects reported by the patient. Patient educated on lifestyle modifications, dietary restrictions, signs and symptoms of hypoglycemia/hyperglycemia and importance of eating regular consistent meals. Stressed upon importance of checking blood glucose at home and bring blood glucose log to appointments. All questions, concerns answered and addressed. Encouraged to call office if persistent hypoglycemia/hyperglycemia on home glucose monitoring noted. DM Eye Exam: 12/29/2023 Associated Problem(s): Dyslipidemia (CMS/HCC) Currently taking Pravastatin 40mg Denies any myalgias. Most recent Lipid Panel done 5 months ago- WNL Continue current regimen. Associated Problem(s): Essential hypertension (CMS/HCC) Currently taking losartan-hydrochlorothiazide 100-25 Amlodipine 10mg Carvedilol 25mg Does not check BP at home; Denies orthostatic changes, dizziness, cough, shortness of breath, swelling in extremities. Continue current regimen. Given BP log, advised pt to record BP and bring log back with them to next visit. Images from the original note were not included. Subjective Patient ID: Hair Santos is a 48 y.o. male who presents for Follow-up (/). HPI Specialists: Dr. Ward- Ortho Dr. Vides-Cardiology (no longer follows) HTN: Currently taking losartan-hydrochlorothiazide 100-25 Amlodipine 10mg Carvedilol 25mg Does not check BP at home; Denies orthostatic changes, dizziness, cough, shortness of breath, swelling in extremities. Continue current regimen. Given BP log, advised pt to record BP and bring log back with them to next visit. HLD: Currently taking Pravastatin 40mg Denies any myalgias. Continue current regimen. Component Ref Range & Units 5 mo ago (07/08/23) 5 mo ago (07/08/23) 5 mo ago (07/08/23) TRIGLYCERIDES <=150 mg/dL 149 139 R 409.14 High R CHOLESTEROL <=200 mg/dL 142 3.6 R HDL CHOLESTEROL 40 - 60 mg/dL 29 Low 13.7 R Comment: > or =60 mg/dl - LOW CARDIOVASCULAR RISK <40 mg/dl - HIGH CARDIOVASCULAR RISK LDL CHOLESTEROL CALCULATED mg/dL 84.0 279 High R Comment: <100 mg/dl OPTIMAL 100-129 mg/dl NEAR OR ABOVE OPTIMAL 130-159 mg/dl BORDERLINE HIGH 160-189 mg/dl HIGH >190 mg/dl VERY HIGH VLDL CHOLESTEROL mg/dL 29.8 0.6 R CHOL HDL RATIO 4.9 26 R Comment: 3.3 - 4.4 LOW RISK 4.4 - 7.1 AVERAGE RISK 7.1 - 11.0 MODERATE RISK >11.0 HIGH RISK ALANINE AMINOTRANSFERASE 59 R ALKALINE PHOSPHATASE 100 R TOTAL PROTEIN 7.2 R ALBUMIN LEVEL 3.7 R ALBUMIN GLOBULIN RATIO 1.1 Resulting Agency H [facility] DMII: Currently taking Glipizide 5mg BID Ozempic 2mg Most recent labs: hemoglobin A1C 6.4% Average FSBS range from BGs range between 100 and 124 No episodes of hypoglycemia since last OV. No medication adverse effects reported by the patient. Patient educated on lifestyle modifications, dietary restrictions, signs and symptoms of hypoglycemia/hyperglycemia and importance of eating regular consistent meals. Stressed upon importance of checking blood glucose at home and bring blood glucose log to appointments. All questions, concerns answered and addressed. Encouraged to call office if persistent hypoglycemia/hyperglycemia on home glucose monitoring noted. DM Eye Exam: 12/29/2023 Education: Check blood sugars daily, notify if <70 or >200. Take medications (pills or insulin) as directed. Monitor for s/s of hypoglycemia (sweaty, dizziness, nausea, vomiting, or shakiness). Watch for increase in thirst, urination, or appetite. Inspect feet frequently monitoring for open wounds , and also recommend yearly eye exam. Pt should attempt to remain as physically active as chronic conditions allow, as well as trying to follow a diet low in carbohydrates, and simple sugars. Review of Systems Constitutional: Negative for activity change, appetite change, chills, diaphoresis, fatigue, fever and unexpected weight change. HENT: Negative for congestion, ear pain, rhinorrhea, sinus pressure, sinus pain, sneezing, sore throat, trouble swallowing and voice change. Eyes: Negative for visual disturbance. Respiratory: Negative for cough, chest tightness, shortness of breath and wheezing. Cardiovascular: Negative for chest pain, palpitations and leg swelling. Gastrointestinal: Positive for abdominal pain and constipation. Negative for abdominal distention, blood in stool, diarrhea and vomiting. Genitourinary: Negative for decreased urine volume, dysuria, flank pain, frequency, hematuria and urgency. Musculoskeletal: Negative for arthralgias, gait problem, joint swelling and myalgias. Skin: Negative for rash. Neurological: Negative for dizziness, tremors, syncope, weakness, light-headedness and headaches. Psychiatric/Behavioral: Negative for decreased concentration and suicidal ideas. The patient is not nervous/anxious. Hematological: Does not bruise/bleed easily. Endocrine: Negative for cold intolerance, heat intolerance, polydipsia, polyphagia and polyuria. Objective Physical Exam Vitals reviewed. Constitutional: Appearance: Normal appearance. HENT: Head: Normocephalic and atraumatic. Right Ear: Tympanic membrane normal. Left Ear: Tympanic membrane normal. Nose: Nose normal. Mouth/Throat: Mouth: Mucous membranes are moist. Pharynx: Oropharynx is clear. Eyes: Pupils: Pupils are equal, round, and reactive to light. Cardiovascular: Rate and Rhythm: Normal rate and regular rhythm. Pulses: Normal pulses. Heart sounds: Normal heart sounds. Pulmonary: Effort: Pulmonary effort is normal. Breath sounds: Normal breath sounds. Abdominal: General: Abdomen is flat. Bowel sounds are normal. Palpations: Abdomen is soft. Musculoskeletal: General: Normal range of motion. Cervical back: Normal range of motion. Skin: General: Skin is warm and dry. Capillary Refill: Capillary refill takes less than 2 seconds. Neurological: General: No focal deficit present. Mental Status: He is alert and oriented to person, place, and time. Psychiatric: Mood and Affect: Mood normal. Behavior: Behavior normal. Assessment/Plan Problem List Items Addressed This Visit Dyslipidemia ([facility]) Currently taking Pravastatin 40mg Denies any myalgias. Most recent Lipid Panel done 5 months ago- WNL Continue current regimen. Essential hypertension ([facility]) Currently taking losartan-hydrochlorothiazide 100-25 Amlodipine 10mg Carvedilol 25mg Does not check BP at home; Denies orthostatic changes, dizziness, cough, shortness of breath, swelling in extremities. Continue current regimen. Given BP log, advised pt to record BP and bring log back with them to next visit. Type 2 diabetes mellitus without complication, without long-term current use of insulin ([facility]) - Primary Currently taking Glipizide 5mg BID Ozempic 2mg Most recent labs: hemoglobin A1C 6.4% Average FSBS range from BGs range between 100 and 124 No episodes of hypoglycemia since last OV. No medication adverse effects reported by the patient. Patient educated on lifestyle modifications, dietary restrictions, signs and symptoms of hypoglycemia/hyperglycemia and importance of eating regular consistent meals. Stressed upon importance of checking blood glucose at home and bring blood glucose log to appointments. All questions, concerns answered and addressed. Encouraged to call office if persistent hypoglycemia/hyperglycemia on home glucose monitoring noted. DM Eye Exam: 12/29/2023 Relevant Orders Hemoglobin A1c Screening for colon cancer Relevant Orders Ambulatory referral to Gastroenterology Positive colorectal cancer screening using Cologuard test Relevant Orders Ambulatory referral to Gastroenterology Constipation Pt reports constipation, states he also has a tight, sometimes pinching feeling in the side of his abdomen, that comes and goes intermittently. . Reports this is not new, reports has been ongoing for several years. Reports he had full workup several years ago with no confirmation. States the Pain is 2-3 on scale of 0-10, and occurs randomly and dissipates. States happens once to twice per year. Advised pt to take Miralax and see if pain subsides after having bowel movement. Abdomen soft upon palpation. No rebound tenderness or guarding noted. Pt reports he does have hx of hemorrhoids and admits to small amount of blood on tissue paper after BM's. Pt did have positive colouguard 6 months ago, referred today to GI for colonoscopy. Advised pt to call office if symptoms worsen or do not improve. documented in this encounter [facility] 12-30-2023 Instructions Margarette White NP - 12/30/2023 9:00 AM EDT Referral sent to GI for colonoscopy- they will call you. If you don't hear from them in 2 weeks, call my office! Have A1C completed. Try taking miralax to help ease constipation. Call if stomach cramping doesn't subside. documented in this encounter [facility] 03-13-2022 Evaluation note Encounter Date Diagnosis Assessment [...] no improvement in 2 to 3 days. [facility] 07-20-2022 Evaluation note* Encounter Date Diagnosis Assessment Notes Treatment Notes Treatment Clinical Notes Sep, Dysuria (ICD-10 - R30.0) Sep, [...] the ER for worsening symptoms or concern [facility] 2022 Evaluation note* Encounter Date Diagnosis Assessment Notes Treatment Notes Treatment Clinical Notes Apr, Paronychia of great toe, right [...] Other Paronychia home care material was printed [facility] 11-29-2021 Evaluation note* Encounter Date Diagnosis Assessment Notes Treatment Notes Treatment Clinical Notes Jan, Contact with and (suspected) exposure [...] Patient care instructions given in writting by [facility] Care At Home document [facility] Other Evaluation noteNo assessment information available [facility] Work Phone: Evaluation note* Diagnosis Type 2 diabetes mellitus without complication, without long-term current use of insulin (CMS/HCC)- Primary Dyslipidemia (CMS/HCC) Other and unspecified hyperlipidemia Essential hypertension (CMS/HCC) Unspecified essential hypertension Positive colorectal cancer screening using Cologuard test Screening for colon cancer Special screening for malignant neoplasms, colon Constipation, unspecified constipation type documented in this encounter [facility]* Diagnosis Encounter for screening for malignant neoplasm of colon- Primary Essential hypertension (CMS/HCC) Unspecified essential hypertension Type 2 diabetes mellitus without complication, without long-term current use of insulin (CMS/HCC) Dyslipidemia (CMS/HCC) Other and unspecified hyperlipidemia Depression with anxiety Dysthymic disorder Hyperuricemia Other abnormal blood chemistry Morbid obesity (CMS/HCC) Morbid obesity Acute bilateral low back pain with right-sided sciatica Annual physical exam Routine general medical examination at a health care facility Acute bilateral low back pain with right-sided sciatica- Primary Acute bilateral low back pain with right-sided sciatica Type 2 diabetes mellitus without complication, without long-term current use of insulin (CMS/HCC)- Primary Essential hypertension (CMS/HCC) Unspecified essential hypertension Acute bilateral low back pain with right-sided sciatica Essential hypertension (CMS/HCC)- Primary Unspecified essential hypertension Type 2 diabetes mellitus without complication, without long-term current use of insulin (CMS/HCC) Acute bilateral low back pain with right-sided sciatica Entrapment of right ulnar nerve- Primary Essential hypertension (CMS/HCC) Unspecified essential hypertension Type 2 diabetes mellitus without complication, without long-term current use of insulin (CMS/HCC) JAN (generalized anxiety disorder) (CMS/HCC) Generalized anxiety disorder Hyperuricemia Other abnormal blood chemistry Acute bilateral low back pain with right-sided sciatica Dyslipidemia (CMS/HCC) Other and unspecified hyperlipidemia Pre-operative clearance Unspecified pre-operative examination 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 Carrier or suspected carrier of Methicillin resistant Staphylococcus aureus Type 2 diabetes mellitus without complication, without long-term current use of insulin (CMS/HCC)- Primary Dyslipidemia (CMS/HCC) Other and unspecified hyperlipidemia Essential hypertension (CMS/HCC) Unspecified essential hypertension Positive colorectal cancer screening using Cologuard test Screening for colon cancer Special screening for malignant neoplasms, colon Constipation, unspecified constipation type Type 2 diabetes mellitus without complication, without long-term current use of insulin (CMS/HCC)- Primary documented in this encounter [facility] Healthcare[facility]* Diagnosis Encounter for screening for malignant neoplasm of colon- Primary Essential hypertension (CMS/HCC) Unspecified essential hypertension Type 2 diabetes mellitus without complication, without long-term current use of insulin (CMS/HCC) Dyslipidemia (CMS/HCC) Other and unspecified hyperlipidemia Depression with anxiety Dysthymic disorder Hyperuricemia Other abnormal blood chemistry Morbid obesity (CMS/HCC) Morbid obesity Acute bilateral low back pain with right-sided sciatica Annual physical exam Routine general medical examination at a [facility] Acute bilateral low back pain with right-sided sciatica- Primary Acute bilateral low back pain with right-sided sciatica Type 2 diabetes mellitus without complication, without long-term current use of insulin (CMS/HCC)- Primary Essential hypertension (CMS/HCC) Unspecified essential hypertension Acute bilateral low back pain with right-sided sciatica Essential hypertension (CMS/HCC)- Primary Unspecified essential hypertension Type 2 diabetes mellitus without complication, without long-term current use of insulin (CMS/HCC) Acute bilateral low back pain with right-sided sciatica Entrapment of right ulnar nerve- Primary Essential hypertension (CMS/HCC) Unspecified essential hypertension Type 2 diabetes mellitus without complication, without long-term current use of insulin (CMS/HCC) JAN (generalized anxiety disorder) (CMS/HCC) Generalized anxiety disorder Hyperuricemia Other abnormal blood chemistry Acute bilateral low back pain with right-sided sciatica Dyslipidemia (CMS/HCC) Other and unspecified hyperlipidemia Pre-operative clearance Unspecified pre-operative examination 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 Carrier or suspected carrier of Methicillin resistant Staphylococcus aureus Type 2 diabetes mellitus without complication, without long-term current use of insulin (CMS/HCC)- Primary Dyslipidemia (CMS/HCC) Other and unspecified hyperlipidemia Essential hypertension (CMS/HCC) Unspecified essential hypertension Positive colorectal cancer screening using Cologuard test Screening for colon cancer Special screening for malignant neoplasms, colon Constipation, unspecified constipation type Type 2 diabetes mellitus without complication, without long-term current use of insulin (CMS/HCC) documented in this encounter [facility] HealthcareHistory general Narrative - Reported* Type Description Date Medical History HTN Medical History Pre diabetic Medical History Anger issues Medical History Hyperlipidemia [place] Other Reason for referral (narrative)* Consultation (Routine) - Pending Review Specialty Diagnoses / Procedures Referred By Luis morel Referred To Contact Gastroenterology Diagnoses Positive colorectal cancer screening using Cologuard test Screening for colon cancer Procedures [place] OFFICE/OUTPATIENT NEW HIGH MDM 60 MINUTES Margarette White NP [address] [place] [address] Pati Corona MD [address] [place] [id number] Referral ID Status Reason Start Date Expiration Date Visits Requested Visits Authorized [id number] Pending Review Specialty Services Required 12/30/2023 06/27/2024 1 1 [facility] Chief Complaint and Reason for Visit Chief Complaint Dysuria Advance Directives Advance Directive Response Recorded Date/ Time Advance Directives No October 10 8:59pm Summary Purpose Family History No Family History Records FoundNo Family History Records FoundNo Family History Records FoundNo Family History Records FoundNo Family History Records Found Additional Source Comments REASON FOR VISIT (unrecogniz ed section and content) Reason Comments Follow-up Care Teams (unrecognized sec tion and content) Team Status: Inactive Member Role Status Dates Mamie Cannon NP-C Attending Provider Active Second Hand Relationship Specialty Start Date End Date Richard Harris MD [address] [place] [phone] PCP - General Family Medicine 11/04/23 Margarette White NP [address] [place] [address] Nurse Practitioner Family Medicine 11/04/23 Second Hand Relationship Specialty Start Date End Date Richard Harris MD [address] [place] [phone] PCP - General Family Medicine 11/04/23 Margarette White NP [address] [place] [phone] Nurse Practitioner Family Medicine 11/04/23 Second Hand Relationship Specialty Start Date End Date Richard Harirs MD [address] [place] [phone] PCP - General Family Medicine 11/04/23 Margarette White NP [address] [place] [address] Nurse Practitioner Family Medicine 11/04/23 Second Hand Relationship Specialty Start Date End Date Margarette White NP [address] [place] [address] Nurse Practitioner [facility] Medicine 11/04/23 Goals (unrecognized section and content) Goals may be documented in a n alternate section (unrecognized sect ion and content) No Status Records FoundNo Status Records FoundNo Status Records FoundNo Status Records FoundNo Status Records Found INFORMATION SOURCE (unrecogn ized section and content) DATE CREATED AUTHOR 10/18/2021 [facility] DATE CREATED AUTHOR AUTHOR'S ORGANIZ ATION 08/01/2022 [facility] DATE CREATED AUTHOR AUTHOR'S ORGANIZ ATION 08/24/2023 [place] DATE CREATED AUTHOR AUTHOR'S ORGANIZ ATION 11/19/2023 [facility] DATE CREATED AUTHOR AUTHOR'S ORGANIZ ATION 12/31/2023 [facility] EPIC FOR RECORDS PERTAINING TO PATIENTS WHO ARE [...] BE BASED ON THE PRIMARY CLINICAL RECORDS. [facility], [facility]. provides no warranty or guarantee of the accuracy or completeness of information in this document.
--- NOTE | 2024-02-05 10:50 | PM.CN ---
Consult Note: HPI Data of Consult Patient: known to practice within the last 3 years Requesting Physician: Riri Hastings NP Primary Care Provider: Shaikh Adalid MD Consult Narrative Reason for consult: low back pain Narrative: Hair Santos a pleasant 48 year old male presents for evaluation and management of low back pain with radiculopathy referred by Dr Montgomery and team. Patient noticed significant pain with radiculopathy in May of 2023 and has advanced imaging as noted below. Patient would like to defer on surgical intervention at this time. Pain today 2/10 in low back, at worst 8-9/10. Denies loss of bowel/bladder. No falls. Patient finds benefit to aleve and tylenol otc. completed 6 weeks of PT without improvement. Recent right L3/4 TFESI providing moderate relief per pt in pain ongoing with NC. continues to have axial low back pain. pt is not interested in surgical evaluation at this time as pain is well controlled. cc:: CC: Riri Hastings NP Review of Systems ROS Status of ROS 10 or more systems reviewed and unremarkable except as noted in history and below Musculoskeletal Reports: back pain PFSH [facility] Medical History (Updated 07/24/23 @ 15:53 by Rani Rubin RN) Back pain ?M54.9 - Dorsalgia, unspecified (ICD-10) Anxiety ?F41.9 - Anxiety disorder, unspecified (ICD-10) Diabetes ?E11.9 - Type 2 diabetes mellitus without complications (ICD-10) Kidney stone ?N20.0 - Calculus of kidney (ICD-10) MARKO treated with BiPAP ?G47.33 - Obstructive sleep apnea (adult) (pediatric) (ICD-10) Sleep apnea ?G47.30 - Sleep apnea, unspecified (ICD-10) Asthma ?J45.909 - Unspecified asthma, uncomplicated (ICD-10) Angina at rest ?I20.89 - Other forms of angina pectoris (ICD-10) HTN (hypertension) ?I10 - Essential (primary) hypertension (ICD-10) Surgical History History of carpal tunnel release ?Z98.890 - Other specified postprocedural states (ICD-10) Meds Home Medications and Allergies Home Medications ?Medication ?Instructions ?Recorded ?Confirmed ?Type allopurinol 300 mg tablet 300 mg PO Q12H 10/24/22 11/03/23 History amlodipine 10 mg tablet 10 mg PO QDAY 10/24/22 11/03/23 History aspirin 81 mg tablet,delayed 81 mg PO QDAY 10/24/22 11/03/23 History release buspirone 10 mg tablet 10 mg PO QDAY 10/24/22 11/03/23 History carvedilol 25 mg tablet 25 mg PO Q12H 10/24/22 11/03/23 History losartan 100 1 tab PO QDAY 10/24/22 11/03/23 History mg-hydrochlorothiazide 25 mg tablet pravastatin 40 mg tablet 40 mg PO QDAY 10/24/22 11/03/23 History tizanidine 4 mg tablet 4 mg PO Q12H 10/24/22 11/03/23 History cyclobenzaprine 10 mg tablet 10 mg PO TID PRN muscle spasm #20 06/16/23 Rx tabs semaglutide 1 mg/dose (2 mg/1.5 1 mg subcut QWEEK 11/03/23 11/03/23 History mL) subcutaneous pen injector Allergies Allergy/AdvReac Type Severity Reaction Status Date / Time No Known Drug Allergies Allergy Verified 11/03/23 09:42 Exam Constitutional Documenting provider has reviewed patient's vital signs: yes Common normals: no apparent distress, oriented x3, healthy appearing, alert and well nourished General appearance: cooperative [facility] Common normals: normocephalic, hearing grossly normal bilaterally and moist oral mucous membranes Head and scalp: normocephalic Eye Common normals: PERRL Pupil: PERRL Neck & C-Spine Common normals: full ROM General: normal visual inspection Chest Common normals: inspection of chest normal Respiratory Common normals: normal respiratory effort, no retractions and no use of accessory muscles Back & Pelvis Lumbar spine/lower back: normal to inspection, lumbar ROM normal, pain with ROM and straight leg raise negative bilaterally Sacroiliac joints: SI joints normal Other: positive facet loading sensation intact BLE strength 5/5 in BLE Extremity Common normals: normal to inspection and full ROM Neuro Common normals: oriented x3, CN's II-XII intact bilaterally, moves all extremities, no focal motor deficits, no sensory deficits noted and deep tendon reflexes 2+ bilaterally Sensorium/orientation: alert Motor exam: strength 5/5 throughout and no movement abnormalities noted Psych Common normals: mental status grossly normal, thought process normal, cooperative, affect normal, speech normal and activity/motor behavior normal Speech: normal speech Thought process: normal thought process Results Additional Findings Additional findings: If on a controlled substance or opioids, I have checked an [place]AR[place] report on this patient and there are no aberrancies noted in the prescribing history.??If on a controlled substance or opioid a drug screen was completed and reviewed within the last year, and if there has not been a drug screen completed we ordered one today to monitor higher risk, state monitored pain medication use. As part of providing excellent, safe, comprehensive care, the following was completed at our patient's visit: 1. A medication reconciliation and review to ensure accurate knowledge of current/active medications, including asking our patients to inform us about any agew-obw-erpudak medications or herbal remedies/nutritional supplements/alternative remedies. 2. A review to specifically ensure our patients have had annual screening for screening for depression, screening for tobacco use, and screening for unhealthy alcohol use. For concerning screenings had a discussion with the patient, provided patient education, and recommended follow-up with primary care provider when appropriate. If patient noted with a risk of falling, they received education on strength, gait, and balance training to prevent future risk of falling. Assessment and Plan Assessment and Plan (1) Lumbar spondylosis: (2) Lumbar stenosis with neurogenic claudication: Assessment and Plan: >50% improvement ongoing from prior YOEL Plan pain overall well controlled educational handout provided on bilateral L4-S1 facet medial branch block x2 working towards RFA continue HEP as tolerated f/u PRN
== END 2024-02-05 10:28 | disposition home or self-care (01) ==
LOC: PM 10:28
PROVIDERS: PCP Internal Medicine; Visit Provider Nurse Practitioner
DX: M47.816 Spondylosis without myelopathy or radiculopathy, lumbar region (principal); M48.062 Spinal stenosis, lumbar region with neurogenic claudication
CPT/HCPCS: G0463

== ENCOUNTER 2024-02-23 07:45 | Day surgery (SDC) | payer OTHER, SELFPAY ==
--- OUTSIDE RECORDS SUMMARY | 2024-02-23 08:06 | XMS_ITS | CCD ---
Author Organization [facility] Care Team Providers Care Youth Coordinator Name Role Phone Alexandra Gill Unavailable Alexandra [...] UnavailRichard Hunt MD Primary Care Provider Christopher ASSOCIATE SCIENTISTMargarette Unavailable [phone] Medications Current Medications Medication Drug Class(es) Dates Sig (Normalized) Sig (Original) acetaminophen 325 mg / HYDROcodone bitartrate 5 mg oral tablet (5 sources) Opioid Agonist Start: 10-06-2023 take 1 tablet by mouth every six hours as needed HYDROcodone-aceta minophen ([place]) 5-325 MG tablet Take 1 tablet by mouth every 6 (six) hours if needed 10/06/2023 Active [id number] 200 actuat albuterol 0.09 mg/actuat metered dose [...] Start: 10-10-2021 take 1 capsule by mo [facility] every twelve hours Cephalexin 500 MG 1 capsule Orally two times a day for 5 day(s) Sep, Active Start: 05-19-2021 take 1 tablet by chintan every twelve hours Cephalexin 500 MG 1 tablet Orally every 12 hrs for 10 day(s) Apr, Active Continuous Glucose Workers' Compensation Claims Supervisor (Dexcom G7 Workers' Compensation Claims Supervisor) device (2 sources) Start: 01-05-2024 Continuous Glucose Workers' Compensation Claims Supervisor ([employer]ex[employer] G7 Workers' Compensation Claims Supervisor) device Indications: Type 2 diabetes mellitus without complication, without long-term current use of insulin (CMS/HCC) 1 each continuously 1 each 2 01/05/2024 Active Continuous Glucose Sensor (Dexcom G7 Sensor) misc (2 sources) Start: 01-05-2024 Continuous Glucose Sensor (Dexcom G7 Sensor) [facility] Indications: Type 2 diabetes mellitus without complication, without long-term current use of insulin (CMS/HCC) 1 each continuously 3 each 1 01/05/2024 Active Continuous Glucose Sensor (FreeStyle Marlon 2 Sensor) misc (5 sources) Start: 09-22-2023 Continuous Glucose Sensor (FreeStyle Marlon 2 Sensor) [facility] Indications: Type 2 diabetes mellitus without complication, [...] complication, without long-term current use of insulin ([facility]) Inject 2 mg under the skin every 7 (seven) days 9 mL 1 10/01/2023 Active sertraline 50 mg oral tablet (11 sources) Serotonin Reuptake Inhibitor Start: 10-01-2023 End: 03-29-2024 take 1 tablet by mouth in the morning sertraline (Zoloft) 50 MG tablet Indications: JAN (generalized anxiety disorder) ([facility]) Take 1 tablet (50 mg) by mouth in the morning. 90 tablet 1 10/01/2023 03/29/2024 Active Zoloft Active spironolactone 25 mg oral tablet (5 sources) Aldosterone Antagonist Start: 10-01-2023 End: 03-29-2024 take 1 tablet by mouth once daily spironolactone (Aldactone) 25 MG tablet Indications: Essential hypertension ([facility]) Take 1 tablet (25 mg) by [...] vomiting, unspecified] Episodic Other aftercare (1 source) skilled nursing (current) use of aspirin; Translations: [ROLL EXAMINER CURRENT USE OF ASPIRIN] Onset: 07-29-2022 Episodic Other aftercare (1 source) Other [facility] (current) drug therapy; Translations: [OTH ASSISTED CURRENT DRUG THERAPY] Onset: 07-29-2022 Episodic Other [...] Amylase [Catalytic activity/Vol] 32 U/L Normal 25-115 [facility] Comment on above: Performed By: #### L IPA, JORDON, CMP #### [facility] [address] [address] [address] Brady Sanders CBC AUTO DIFFon 07-25-2022 BASO # 0.0 103/ul Normal 0.0-0.1 [facility] Comment on above: Performed By: #### C BC #### [facility] [address] [address] [address] Brady Sanders Basophils/100 WBC (Bld) 0.4 % Normal 0.2-2.0 [facility] Comment on above: Performed By: #### C BC #### [facility] [address] [place] [address] Dr. Brady Sanders EO # 0.1 103/ul Normal 0.0-0.7 [facility] Comment on above: Performed By: #### C BC #### [facility] [address] [place] [address] Dr. Brady Sanders Eosinophils/100 WBC (Bld) 1.5 % Normal 0.9-7.0 [facility] Comment on above: Performed By: #### C BC #### [facility] [address] [place] [address] Dr. Brady Sanders Erythrocyte distribution width (RBC) [Ratio] 13.2 % Normal 11.0-15.0 [facility] Comment on above: Performed By: #### C BC #### [facility] [address] [place] [address] Dr. Brady Sanders Hematocrit (Bld) [Volume fraction] 41.0 % Critically low 42.0-54.0 [facility] Comment on above: Performed By: #### C BC #### [facility] [address] [place] [address] Dr. Brady Sanders Hemoglobin (Bld) [Mass/Vol] 13.8 g/dL Critically low 14.0-18.0 [facility] Comment on above: Performed By: #### C BC #### [facility] [address] [place] [address] Dr. Brady Sanders IG # 0.03 10e3/ul Normal 0.00-0.03 [facility] Comment on above: Performed By: #### C BC #### [facility] [address] [place] [address] Dr. Brady Sanders IG % 0.4 % Normal 0.0-0.5 [facility] Comment on above: Performed By: #### C BC #### [facility] [address] [place] [address] Dr. Brady Sanders LYMPH # 1.8 103/ul Normal 1.2-3.8 [facility] Comment on above: Performed By: #### C BC #### [facility] [address] [place] [address] Dr. Brady Sanders Lymphocytes/100 WBC (Bld) 21.4 % Normal 20.5-60.0 [facility] Comment on above: Performed By: #### C BC #### [facility] [address] [place] [address] Dr. Brady Sanders MANUAL DIFF REQ NO Normal [facility] Comment on above: Performed By: #### C BC #### [facility] [address] [place] [address] Dr. Brady Sanders MCH (RBC) [Entitic mass] 28.1 pg Normal 25.9-34.0 [facility] Comment on above: Performed By: #### C BC #### [facility] [address] [place] [address] Dr. Brady Sanders MCHC (RBC) [Mass/Vol] 33.7 g/dL Normal 29.9-35.2 [facility] Comment on above: Performed By: #### C BC #### [facility] [address] [place] [address] Dr. Brady Snaders MCV (RBC) [Entitic vol] 83.5 fL Normal 80.0-94.0 [facility] Comment on above: Performed By: #### C BC #### [facility] [address] [place] [address] Dr. Brady Sanders MONO # 0.5 103/ul Normal 0.3-0.8 [facility] Comment on above: Performed By: #### C BC #### [facility] [address] [place] [address] Dr. Brady Sanders Monocytes/100 WBC (Bld) 6.2 % Normal 1.7-12.0 [facility] Comment on above: Performed By: #### C BC #### [facility] [address] [place] [address] Dr. Brady Sanders NEUT # 5.9 103/ul Normal 1.4-6.5 [facility] Comment on above: Performed By: #### C BC #### [facility] [address] [address] [address] Brady Sanders Neutrophils/100 WBC (Bld) 70.1 % Normal 43.0-75.0 [facility] Comment on above: Performed By: #### C BC #### [facility] [address] [place] [address] Dr. Brady Sanders Platelet mean volume (Bld) [Entitic vol] 9.6 fL Normal 9.5-13.5 [facility] Comment on above: Performed By: #### C BC #### [facility] [address] [place] [address] Dr. Brady Sanders PLT 216 103/ul Normal 150-450 [facility] Comment on above: Performed By: #### C BC #### [facility] [address] [place] [address] Dr. Brady Sanders RBC 4.91 106/ul Normal 4.70-6.10 [facility] Comment on above: Performed By: #### C BC #### [facility] [address] [place] [address] Dr. Brady Sanders WBC 8.4 103/ul Normal 4.0-11.0 [facility] Comment on above: Performed By: #### C BC #### [facility] [address] [place] [address] ABD/PELV W CONon [...] by: KAVIN BRIONES Date: 2022-07-25 10:58 Normal [facility] LIPASEon 07-25-2022 Lipase [Catalytic activity/Vol] 96.0 U/L Normal 73.0-393.0 [facility] Comment on above: Performed By: #### L GERRY JORDON, CMP #### [facility] [address] [place] [address] Dr. Brady Sanders PROF 14(COMP METB)on 023 Albumin [Mass/Vol] 3.4 g/dL Normal 3.4-5.0 [facility] Comment on above: Performed By: #### L GERRY JORDON, CMP #### [facility] [address] [place] [address] Dr. Brady Sanders Albumin/Globulin [Mass ratio] 0.9 {ratio} Normal [facility] Comment on above: Performed By: #### L IPA JORDON, CMP #### [facility] [address] [place] [address] Dr. Brady Sanders ALP [Catalytic activity/Vol] 88 U/L Normal 46-116 [facility] Comment on above: Performed By: #### L IPA JORDON, CMP #### [facility] [address] [place] [address] Dr. Brady Sanders ALT [Catalytic activity/Vol] 27 U/L Normal 16-63 [facility] Comment on above: Performed By: #### L IPA JORDON, CMP #### [facility] [address] [place] [address] Dr. Brady Sanders Anion gap [Moles/Vol] 9.2 mmol/L Normal [facility] Comment on above: Performed By: #### L JORDON GARRETT, CMP #### [facility] [address] [place] [address] Dr. Brady Sanders AST [Catalytic activity/Vol] 18 U/L Normal 15-37 [facility] Comment on above: Performed By: #### L IPAJORDON, CMP #### [facility] [address] [place] [address] Dr. Brady Sanders Bilirubin [Mass/Vol] 0.4 mg/dL Normal 0.2-1.0 [facility] Comment on above: Performed By: #### L JORDON GARRETT, CMP #### [facility] [address] [place] [address] Dr. Brady Sanders Calcium [Mass/Vol] 8.5 mg/dL Normal 8.5-10.1 [facility] Comment on above: Performed By: #### L GERRY JORDON, CMP #### [facility] [address] [place] [address] Dr. Brady Sanders Chloride [Moles/Vol] 103 mmol/L Normal 98-107 [facility] Comment on above: Performed By: #### L JORDON GARRETT, CMP #### [facility] [address] [place] [address] Dr. Brady Sanders CO2 [Moles/Vol] 31.1 mmol/L Normal 21.0-32.0 [facility] Comment on above: Performed By: #### L JORDON GARRETT, CMP #### [facility] [address] [place] [address] Dr. Brady Sanders Creatinine [Mass/Vol] 0.79 mg/dL Normal 0.70-1.30 [facility] Comment on above: Performed By: #### L JORDON GARRETT, CMP #### [facility] [address] [place] [address] Dr. Brady Sanders EGFR-AF COLOMBIAN >60 Normal >=60 [facility] Comment on above: Performed By: #### L GERRY JORDON, CMP #### [facility] [address] [place] [address] Dr. Brady Sanders EGFR-NON AF COLOMBIAN >60 Normal >=60 [facility] Comment on above: Performed By: #### L JORDON GARRETT, CMP #### [facility] [address] [place] [address] Dr. Brady Sanders Globulin (S) [Mass/Vol] 3.8 g/dL Normal [facility] Comment on above: Performed By: #### L JORDON GARRETT, CMP #### [facility] [address] [place] [address] Dr. Brady Sanders Glucose [Mass/Vol] 140 mg/dL Critically high 74-106 [facility] Comment on above: Performed By: #### L JORDON GARRETT, CMP #### [facility] [address] [place] [address] Dr. Brady Sanders Potassium [Moles/Vol] 3.3 mmol/L Critically low 3.5-5.1 [facility] Comment on above: Performed By: #### L JORDON GARRETT, CMP #### [facility] [address] [place] [address] Dr. Brady Sanders Protein [Mass/Vol] 7.2 g/dL Normal 6.4-8.2 [facility] Comment on above: Performed By: #### L JORDON GARRETT, CMP #### [facility] [address] [place] [address] Dr. Brady Sanders Sodium [Moles/Vol] 140 mmol/L Normal 136-145 [facility] Comment on above: Performed By: #### L JORDON GARRETT, CMP #### [facility] [address] [place] [address] Dr. Brady Sanders Urea nitrogen [Mass/Vol] 10.0 mg/dL Normal 7.0-18.0 [facility] Comment on above: Performed By: #### L JORDON GARRETT, CMP #### [facility] [address] [place] [address] Dr. Brady Sanders Urea nitrogen/Creatinine [Mass ratio] 12.7 mg/mg Normal [facility] Comment on above: Performed By: #### L JORDON GARRETT, CMP #### [facility] [address] [address] [address] Brady Sandesr NM HEPATOBILIARY SCAN W EFon 07-24-2022 NM HEPATOBILIARY SCAN W EF HIDA SCAN WITH GALLBLADDER EJECTION FRACTION HISTORY: Abdominal Pain. COMPARISON: Ultrasound 07/11/2022. METHOD: Following IV injection of 5. mCi of [id number] , anterior imaging of the abdomen was [...] by: KIM JARRETT Date: 2022-07-24 09:14 Normal [facility] US SINGLE QUAD RT UPPERon US SINGLE [...] by: MIKAYLA COVINGTON Date: 2022-07-11 11:55 Normal [facility] GLYCOHEMOGLOBIN A1Con 2022 ADA RECOMMENDATION SEE BELOW Normal [facility] Comment on above: Result Comment: ADA RECOMMENDED LIMIT 4.0 - 6.0 ADA THERAPEUTIC TARGET < 7.0 ACTION SUGGESTED > 7.0 Performed By: #### A 1C #### [facility] [address] [address] [address] Brady Sanders Glucose [Mass/Vol] 143 mg/dL Normal [facility] Comment on above: Performed By: #### A 1C #### [facility] [address] [place] [address] Dr. Brady Sanders HbA1c (Bld) [Mass fraction] 6.6 % Critically high 4.5-6.2 [facility] Comment on above: Performed By: #### A 1C #### [facility] [address] [place] [address] Dr. Brady Sanders COVID + FLU Quick Testingon 03-13-2022 SARS-CoV-2 (COVID-19) RNA ADELINA+probe Ql (Unsp spec) Positive [facility] Other COVID + FLU Quick Testing Negative [facility] Other CBC AUTO DIFFon 03-07-2022 BASO # 0.0 103/ul Normal 0.0-0.1 [facility] Comment on above: Performed By: #### C BC #### [facility] [address] [place] [address] Dr. Brady Sanders Basophils/100 WBC (Bld) 0.5 % Normal 0.2-2.0 [facility] Comment on above: Performed By: #### C BC #### [facility] [address] [place] [address] Dr. Brady Sanders EO # 0.1 103/ul Normal 0.0-0.7 [facility] Comment on above: Performed By: #### C BC #### [facility] [address] [place] [address] Dr. Brady Sanders Eosinophils/100 WBC (Bld) 1.8 % Normal 0.9-7.0 [facility] Comment on above: Performed By: #### C BC #### [facility] [address] [place] [address] Dr. Brady Sanders Erythrocyte distribution width (RBC) [Ratio] 13.5 % Normal 11.0-15.0 [facility] Comment on above: Performed By: #### C BC #### [facility] [address] [place] [address] Dr. Brady Sanders Hematocrit (Bld) [Volume fraction] 46.5 % Normal 42.0-54.0 [facility] Comment on above: Performed By: #### C BC #### [facility] [address] [place] [address] Dr. Brady Sanders Hemoglobin (Bld) [Mass/Vol] 15.6 g/dL Normal 14.0-18.0 [facility] Comment on above: Performed By: #### C BC #### [facility] [address] [place] [address] Dr. Brady Sanders IG # 0.02 10e3/ul Normal 0.00-0.03 [facility] Comment on above: Performed By: #### C BC #### [facility] [address] [place] [address] Dr. Brady Sanders IG % 0.3 % Normal 0.0-0.5 [facility] Comment on above: Performed By: #### C BC #### [facility] [address] [place] [address] Dr. Brady Sanders LYMPH # 1.8 103/ul Normal 1.2-3.8 [facility] Comment on above: Performed By: #### C BC #### [facility] [address] [place] [address] Dr. Brady Sanders Lymphocytes/100 WBC (Bld) 22.3 % Normal 20.5-60.0 [facility] Comment on above: Performed By: #### C BC #### [facility] [address] [place] [address] Dr. Brady Sanders MANUAL DIFF REQ NO Normal [facility] Comment on above: Performed By: #### C BC #### [facility] [address] [place] [address] Dr. Brady Sanders MCH (RBC) [Entitic mass] 28.0 pg Normal 25.9-34.0 [facility] Comment on above: Performed By: #### C BC #### [facility] [address] [place] [address] Dr. Brady Sanders MCHC (RBC) [Mass/Vol] 33.5 g/dL Normal 29.9-35.2 [facility] Comment on above: Performed By: #### C BC #### [facility] [address] [place] [address] Dr. Brady Sanders MCV (RBC) [Entitic vol] 83.3 fL Normal 80.0-94.0 [facility] Comment on above: Performed By: #### C BC #### [facility] [address] [address] [address] Brady Sanders MONO # 0.5 103/ul Normal 0.3-0.8 [facility] Comment on above: Performed By: #### C BC #### [facility] [address] [place] [address] Dr. Brady Sanders Monocytes/100 WBC (Bld) 6.1 % Normal 1.7-12.0 [facility] Comment on above: Performed By: #### C BC #### [facility] [address] [place] [address] Dr. Brady Sanders NEUT # 5.4 103/ul Normal 1.4-6.5 [facility] Comment on above: Performed By: #### C BC #### [facility] [address] [place] [address] Dr. Brady Sanders Neutrophils/100 WBC (Bld) 69.0 % Normal 43.0-75.0 [facility] Comment on above: Performed By: #### C BC #### [facility] [address] [place] [address] Dr. Brady Sanders Platelet mean volume (Bld) [Entitic vol] 10.3 fL Normal 9.5-13.5 [facility] Comment on above: Performed By: #### C BC #### [facility] [address] [place] [address] Dr. Brady Sanders PLT 230 103/ul Normal 150-450 [facility] Comment on above: Performed By: #### C BC #### [facility] [address] [place] [address] Dr. Brady aSnders RBC 5.58 106/ul Normal 4.70-6.10 [facility] Comment on above: Performed By: #### C BC #### [facility] [address] [address] [address] Brady Sanders WBC 7.9 103/ul Normal 4.0-11.0 [facility] Comment on above: Performed By: #### C BC #### [facility] [address] [address] [address] Brady Sanders GLYCOHEMOGLOBIN A1Con 2021 ADA RECOMMENDATION SEE BELOW Normal [facility] Comment on above: Result Comment: ADA RECOMMENDED LIMIT 4.0 - 6.0 ADA THERAPEUTIC TARGET < 7.0 ACTION SUGGESTED > 7.0 Performed By: #### A 1C #### [facility] [address] [place] [address] Dr. Brady Sanders Glucose [Mass/Vol] 200 mg/dL Normal [facility] Comment on above: Performed By: #### A 1C #### [facility] [address] [place] [address] Dr. Brady Sanders HbA1c (Bld) [Mass fraction] 8.6 % Critically high 4.5-6.2 [facility] Comment on above: Performed By: #### A 1C #### [facility] [address] [place] [address] Dr. Brady Sanders LIPID PROFILEon 03-07-2022 CHOL-HDL RATIO NORM SEE BELOW Normal [facility] Comment on above: Result Comment: 3.3 - 4.4 LOW RISK 4.4 - 7.1 AVERAGE RISK 7.1 - 11.0 MODERATE RISK >11.0 HIGH RISK Performed By: #### L JORDON GARRETT, CMP #### [facility] [address] [place] [address] Dr. Brady Sanders Cholesterol [Mass/Vol] 136 mg/dL Normal <=200 [facility] Comment on above: Performed By: #### L JORDON GARRETT, CMP #### [facility] [address] [place] [address] Dr. Brady Sanders Cholesterol in HDL [Mass/Vol] 26 mg/dL Critically low 40-60 [facility] Comment on above: Performed By: #### L JORDON GARRETT, CMP #### [facility] [address] [address] [address] Brady Sanders Cholesterol in LDL [Mass/Vol] 77.2 mg/dL Normal [facility] Comment on above: Performed By: #### L GERRY JORDON, CMP #### [facility] [address] [address] [address] Brady Sanders Cholesterol.total/C holesterol in HDL [Mass ratio] 5.2 {ratio} Normal [facility] Comment on above: Performed By: #### L GERRY JORDON, CMP #### [facility] [address] [address] [address] Brady Sanders HDL NORMAL > or = 60 mg/dl - LO W CARDIOVASCULAR RISK <40 mg/dl - HIGH CARDIOVASCULAR RISK Normal [facility] Comment on above: Performed By: #### L JORDON GARRETT, CMP #### [facility] [address] [address] [address] Brady Sanders LDL CALC NORMAL SEE BELOW Normal [facility] Comment on above: Result Comment: <100 mg/dl OPTIMAL 100 - 129 mg/dl NEAR OR ABOVE OPTIMAL 130 - 159 mg/dl BORDERLINE HIGH 160 - 189 mg/dl HIGH >190 mg/dl VERY HIGH Performed By: #### L JORDON GARRETT, CMP #### [facility] [address] [address] [address] Brady Sadners Triglyceride [Mass/Vol] 164 mg/dL Critically high <=150 [facility] Comment on above: Performed By: #### L JORDON GARRETT, CMP #### [facility] [address] [address] [address] Brayd Sanders VLDL CALC 32.8 mg/dL Normal [facility] Comment on above: Performed By: #### L GERRY JORDON, CMP #### [facility] [address] [address] [address] Brady Sanders MICROALBUMIN, RAND URon 12-1 mALB <1.3 Normal <=30.0 [facility] Comment on above: Performed By: #### L GERRY JORDON, CMP #### [facility] [address] [address] [address] Brady Sanders PROF 14(COMP METB)on 022 Albumin [Mass/Vol] 3.8 g/dL Normal 3.4-5.0 [facility] Comment on above: Performed By: #### L IPA, JORDON, CMP #### [facility] [address] [address] [address] Brady Sanders Albumin/Globulin [Mass ratio] 1.0 {ratio} Normal [facility] Comment on above: Performed By: #### L IPA, JORDON, CMP #### [facility] [address] [address] [address] Brady Sanders ALP [Catalytic activity/Vol] 102 U/L Normal 46-116 [facility] Comment on above: Performed By: #### L IPA, JORDON, CMP #### [facility] [address] [address] [address] Brady Sanders ALT [Catalytic activity/Vol] 41 U/L Normal 16-63 [facility] Comment on above: Performed By: #### L IPA, JORDON, CMP #### [facility] [address] [address] [address] Brady Sanders Anion gap [Moles/Vol] 14.7 mmol/L Normal [facility] Comment on above: Performed By: #### L IPA, JORDON, CMP #### [facility] [address] [address] [address] Brady Sanders AST [Catalytic activity/Vol] 24 U/L Normal 15-37 [facility] Comment on above: Performed By: #### L IPA, JORDON, CMP #### [facility] [address] [address] [address] Brady Sanders Bilirubin [Mass/Vol] 0.4 mg/dL Normal 0.2-1.0 [facility] Comment on above: Performed By: #### L IPA, JORDON, CMP #### [facility] [address] [address] [address] Brady Sanders Calcium [Mass/Vol] 8.8 mg/dL Normal 8.5-10.1 [facility] Comment on above: Performed By: #### L JORDON GARRETT, CMP #### [facility] [address] [place] [address] Dr. Brady Sanders Chloride [Moles/Vol] 99 mmol/L Normal 98-107 [facility] Comment on above: Performed By: #### L JORDON GARRETT, CMP #### [facility] [address] [place] [address] Dr. Brady Sanders CO2 [Moles/Vol] 26.8 mmol/L Normal 21.0-32.0 [facility] Comment on above: Performed By: #### L JORDON GARRETT, CMP #### [facility] [address] [place] [address] Dr. Brady Sanders Creatinine [Mass/Vol] 1.00 mg/dL Normal 0.70-1.30 [facility] Comment on above: Performed By: #### L JORDON GARRETT, CMP #### [facility] [address] [place] [address] Dr. Brady Sanders EGFR-AF COLOMBIAN >60 Normal >=60 [facility] Comment on above: Performed By: #### L JORDON GARRETT, CMP #### [facility] [address] [place] [address] Dr. Brady Sanders EGFR-NON AF COLOMBIAN >60 Normal >=60 [facility] Comment on above: Performed By: #### L JORDON GARRETT, CMP #### [facility] [address] [place] [address] Dr. Brady Sanders Globulin (S) [Mass/Vol] 3.7 g/dL Normal [facility] Comment on above: Performed By: #### L JORDON GARRETT, CMP #### [facility] [address] [place] [address] Dr. Brady Sanders Glucose [Mass/Vol] 317 mg/dL Critically high 74-106 [facility] Comment on above: Performed By: #### L JORDON GARRETT, CMP #### [facility] [address] [place] [address] Dr. Brady Sanders Potassium [Moles/Vol] 3.5 mmol/L Normal 3.5-5.1 [facility] Comment on above: Performed By: #### L JORDON GARRETT, CMP #### [facility] [address] [address] [address] Brady Sanders Protein [Mass/Vol] 7.5 g/dL Normal 6.4-8.2 [facility] Comment on above: Performed By: #### L JORDON GARRETT, CMP #### [facility] [address] [address] [address] Brady Sanders Sodium [Moles/Vol] 137 mmol/L Normal 136-145 [facility] Comment on above: Performed By: #### L JORDON GARRETT, CMP #### [facility] [address] [place] [address] Dr. Brady Sanders Urea nitrogen [Mass/Vol] 11.0 mg/dL Normal 7.0-18.0 [facility] Comment on above: Performed By: #### L JORDON GARRETT, CMP #### [facility] [address] [place] [address] Dr. Brady Sanders Urea nitrogen/Creatinine [Mass ratio] 11.0 mg/mg Normal [facility] Comment on above: Performed By: #### L JORDON GARRETT, CMP #### [facility] [address] [place] [address] Dr. Brady Sanders Urinalysis - AUTOMATEDon Appearance (U) clear [employer] Other Bilirubin Ql (U) Negative [employer] Other Color (U) medium tellow [employer] Other Glucose Ql (U) >1000 [employer] Other Hemoglobin Ql (U) trace [employer] Other Ketones Ql (U) Negative [employer] Other Leukocyte esterase Test strip Ql (U) trace [employer] Other Nitrite Ql (U) Negative [employer] Other pH (U) 5.5 [pH] [employer] Other Protein Ql (U) Negative [employer] Other Specific gravity (U) [Rel density] 1.015 [employer] Other Urobilinogen (U) [Mass/Vol] 0.2 mg/dL [employer] Other Urinalysis - AUTOMATED [employer] Other Urine Cultureon 10-10-2021 Bacteria identified Cx Nom (U) Reason for Exam Dysuria Urine >100,000 colonies/ml mixed bacterial skin contaminants 2 Days PERFORMED BY: [place] [address] PATHOLOGIST [employer] SUPER[employer]OR TIA CORDOVA M.D. [facility] Comment on above: Performed By: #### C UU #### [facility] [address] [place] [address] Bacteria identified Cx Nom (U) [employer] Other Quick Fluon 02-19-2021 FLUAV Ab CF (S) [Titer] Negative [employer] Other FLUBV Ab CF (S) [Titer] Negative [employer] Other Vital Signs Date Time Vital Sign Value Performing Clinician Armaan santana 12-30-2023 09:07-0400 Body mass index (BMI) [Ratio] 42.35 kg/m2 Margarette Rojaspatrick ASSOCIATE SCIENTIST Work Phone: [facility] [employer] 12-30-2023 09:07-0400 Body temperature 97.3 [degF] Margarette Rojaspatrick ASSOCIATE SCIENTIST Work Phone: [facility] [employer] 12-30-2023 09:07-0400 Body weight 145.6 kg Margarette Rojaspatrick ASSOCIATE SCIENTIST Work Phone: [facility] [employer] 12-30-2023 09:07-0400 Diastolic blood pressure 62 mm[Hg] Margarette Rojaspatrick ASSOCIATE SCIENTIST Work Phone: [facility] 12-30-2023 09:07-0400 Heart rate 85 /min Margarette Rojaspatrick ASSOCIATE SCIENTIST Work Phone: [facility] 12-30-2023 09:07-0400 SaO2% (BldA) [Mass fraction] 95 % Margarette Rojaspatrick ASSOCIATE SCIENTIST Work Phone: [facility] 12-30-2023 09:07-0400 Systolic blood pressure 112 mm[Hg] Margarette Rojaspatrick ASSOCIATE SCIENTIST Work Phone: [facility] 03-13-2022 18:15-0500 Body height 182.88 cm Mamie Kassandra Other [employer] Other 03-13-2022 18:15-0500 Body mass index (BMI) [Ratio] 47.46 kg/m2 Mamie Kassandra Other [employer] Other 03-13-2022 18:15-0500 Body temperature 98 [degF] Mamie Sweetmond Other [employer] Other 03-13-2022 18:15-0500 Body weight 158.76 kg Mamie Kassandra Other [employer] Other 03-13-2022 18:15-0500 Respiratory rate 18 /min Mamie Sweetmond Other [employer] Other 03-13-2022 18:15-0500 SaO2% (BldA) [Mass fraction] 94 % Mamie Kassandra Other [employer] Other 10-10-2021 10:30-0400 Body height 182.88 cm Mamie Kassandra Other [employer] Other 10-10-2021 10:30-0400 Body mass index (BMI) [Ratio] 46.11 kg/m2 Mamie Cannon Other [employer] Other 10-10-2021 10:30-0400 Body temperature 98.1 [degF] Mamie Sweetmond Other [employer] Other 10-10-2021 10:30-0400 Body weight 154.22 kg Mamie Sweetmond Other [employer] Other 10-10-2021 10:30-0400 Diastolic blood pressure 95 mm[Hg] Mamie Cannon Other [employer] Other 10-10-2021 10:30-0400 Respiratory rate 20 /min Mamie Cannon Other [employer] Other 10-10-2021 10:30-0400 SaO2% (BldA) [Mass fraction] 98 % Mamie Cannon Other [employer] Other 10-10-2021 10:30-0400 Systolic blood pressure 158 mm[Hg] Mamie Cannon Other [employer] Other 05-10-2021 10:00-0500 Body height 182.88 cm Alexandra Dimas Other [employer] Other 05-10-2021 10:00-0500 Body mass index (BMI) [Ratio] 49.28 kg/m2 Alexandra Dimas Other [employer] Other 05-10-2021 10:00-0500 Body temperature 96.4 [degF] Alexandra Dimas Other [employer] Other 05-10-2021 10:00-0500 Body weight 164.84 kg Alexandra Dimas Other [employer] Other 05-10-2021 10:00-0500 Diastolic blood pressure 84 mm[Hg] Alexandra Dimas Other [employer] Other 05-10-2021 10:00-0500 Respiratory rate 18 /min Alexandra Dimas Other [employer] Other 05-10-2021 10:00-0500 SaO2% (BldA) [Mass fraction] 96 % Alexandra Dimas Other [employer] Other 05-10-2021 10:00-0500 Systolic blood pressure 147 mm[Hg] Alexandra Dimas Other [employer] Other 02-19-2021 10:00-0500 Body height 182.88 cm Alexandra Ginty Other [employer] Other 02-19-2021 10:00-0500 Body mass index (BMI) [Ratio] 48.82 kg/m2 Alexandra Ginty Other [employer] Other 02-19-2021 10:00-0500 Body temperature 96.4 [degF] Alexandra Ginty Other [employer] Other 02-19-2021 10:00-0500 Body weight 163.3 kg Alexandra Ginty Other [employer] Other 02-19-2021 10:00-0500 SaO2% (BldA) [Mass fraction] 95 % Alexandra Gill Other [facility] Other Encounters Encounter Date Encounter Type Care Provider Facility Start: 01-20-2024 End: 01-26-2024 Refill Akosua Ramos MA [facility] Comment on above: Type 2 diabetes cassy itus without complication, without long- term current use of insulin (CMS/HCC) Start: 01-05-2024 End: 01-05-2024 Orders Only Margarette Gutierrezk ASSOCIATE SCIENTIST Work Phone: [facility] Comment on above: Type 2 diabetes cassy itus without complication, without long- term current use of insulin (CMS/HCC) (Primary Dx) Start: 12-30-2023 End: 12-30-2023 Bamboo flowsheet Margarette Rojaspatrick ASSOCIATE SCIENTIST Work Phone: [facility] Start: 12-30-2023 End: 12-30-2023 Bamboo flowsheet Margarette Palomarestrick ASSOCIATE SCIENTIST Work Phone: [facility] Start: 12-30-2023 End: 12-30-2023 Office outpatient visit 15 minutes Margarette White ASSOCIATE SCIENTIST Work Phone: [facility] Comment on above: Type 2 diabetes cassy itus without complication, without long- term current use of insulin (CMS/HCC) (Primary Dx); Dyslipidemia (CMS/HCC); Essential hypertension (CMS/HCC); Positive colorectal cancer screening using Cologuard test; Screening for colon cancer; Constipation, unspecified constipation type Start: 12-30-2023 End: 12-30-2023 ambulatory MARGARETTE PALOMARESTRICK Not Available Start: 11-03-2023 End: 11-03-2023 ambulatory Swapnil Perkins MD Facility:[facility] Start: 10-01-2023 Preoperative state Margarette murphy ASSOCIATE SCIENTIST Work Phone: [facility] Start: 10-01-2023 End: 10-01-2023 ambulatory YIN FAWWAD Not Available Start: 08-04-2023 End: 08-04-2023 ambulatory JEANNE LUCIANO Not Available Start: 07-31-2023 End: 07-31-2023 ambulatory YIN FAWWAD Not Available Start: 07-24-2023 End: 08-23-2023 ambulatory [facility] Start: 07-14-2023 End: 07-14-2023 ambulatory YIN FAWWAD Not Available Start: 06-24-2023 End: 06-24-2023 ambulatory YIN FAWWAD Not Available Start: 06-23-2023 End: 07-23-2023 ambulatory [facility] Start: 06-05-2023 Patient encounter procedure Margarette White ASSOCIATE SCIENTIST Work Phone: [facility] Start: 06-05-2023 End: 06-05-2023 ambulatory YIN FAWWAD Not Available Start: 07-25-2022 End: 07-25-[address] GILBERT GARCIA . Facility:[facility] Start: 07-24-2022 End: 07-25-2022 ambulatory YIN H FAWWAD Facility:[facility] Start: 07-11-2022 End: 07-12-2022 ambulatory YIN H FAWWAD Facility:[facility] Start: 06-03-2022 End: 06-04-2022 ambulatory YIN H FAWWAD Facility:[facility] Start: 03-13-2022 End: 03-13-2022 ambulatory Mamiehumphrey Cannon Other [employer] Other Start: 03-13-2022 Office outpatient vi sit 15 minutes Mamie Kassandra [facility] Start: 03-07-2022 End: 03-08-2022 ambulatory YIN H FAWWAD Facility:[facility] Start: 10-10-2021 End: 10-10-2021 ambulatory Mamie Kassandra Other [employer] Other Start: 10-10-2021 Office outpatient vi sit 15 minutes Mamie Kassandra [facility] Start: 10-10-2021 End: 10-10-2021 Departed Referred ASSOCIATE SCIENTISTPhoenix Cannon Work Phone: [facility] [place] Start: 05-10-2021 End: 05-10-2021 ambulatory Alexandra Dimas Other [employer] Other Start: 05-10-2021 Office outpatient vi sit 15 minutes Alexandra Dimas [facility] Start: 02-19-2021 End: 02-19-2021 ambulatory Alexandra Ginty Other [employer] Other Start: 02-19-2021 Office outpatient vi sit 15 minutes Alexandra Ginty [facility] Plan of Treatment Date Care Activity Detail Author Start: 06-17-2026 Screening for malign ant neoplasm of colon [facility] Start: 01-22-2025 Glaucoma screening Diabetes: R etinopathy Screening [facility] Start: 07-07-2024 Urine screening for protein Diabetes: Urine Protein Screening [facility] Start: 06-29-2024 End: 06-29-2024 Patient encounter procedure 06/29/2024 9:30 AM EDT Office Visit [facility] [address] [place] [phone] Margarette White NP [address] [place] [phone] [facility] Start: 03-24-2024 Hemoglobin A1c measurement Diabetes: Hemoglobin A1C [facility] Start: 12-30-2023 End: 12-29-2024 Hemoglobin A1c/Hemoglobin.total in Blood Hemoglobin A1c Lab Routine Type 2 diabetes mellitus without complication, without long-term current use of insulin ([facility]) Expected: 12/30/2023 (Approximate), Expires: 12/29/2024 [facility] Work Phone: Comment on above: Expected: 12/30/2023 (Approximate), Expires: 12/29/2024 Start: 12-30-2023 End: 12-30-2023 Patient encounter procedure 12/30/2023 9:00 AM EDT Office Visit [facility] [address] [place] [address] Margarette White, ASSOCIATE SCIENTIST [address] [place] [address] Arrived [facility] Comment on above: Arrived Start: 11-23-2023 Influenza vaccination Influenza Vacc ine (#1) [facility] Start: 1975 Screening for malign ant neoplasm of colon [facility] Bacteria identified in Urine by Culture [facility] Immunizations Immunization Date Immunization Notes Care Provider Fa cility 01-16-2021 influenza, injectabl e, quadrivalent, preservative free Margarette White ASSOCIATE SCIENTIST Work Phone: [facility] 01-16-2021 influenza virus vaccine, unspecified formulation Margarette White ASSOCIATE SCIENTIST Work Phone: [facility] 02-06-2020 influenza, injectabl e, quadrivalent, contains preservative Margarette White ASSOCIATE SCIENTIST Work Phone: [facility] 02-21-2019 Influenza, injectabl e, Madin [place] Canine Kidney, preservative free, quadrivalent Margarette White ASSOCIATE SCIENTIST Work Phone: [facility] 01-02-2017 influenza, seasonal, injectable Margarette White ASSOCIATE SCIENTIST Work Phone: [facility] 12-26-2015 influenza, seasonal, injectable, preservative free Margarette White ASSOCIATE SCIENTIST Work Phone: [facility] 01-04-2015 influenza, seasonal, injectable, preservative free Margarette White ASSOCIATE SCIENTIST Work Phone: [facility] 12-30-2013 influenza, seasonal, injectable Margarette White ASSOCIATE SCIENTIST Work Phone: [facility] 01-07-2013 influenza, seasonal, injectable Margarette Esteswilberto MORALES Work Phone: [facility] Payers Date Payer Category Payer Private Health Insurance 1975 Unknown [id number] 1975 Unknown [id number] 1975 Unknown [id number] [id number] 1973 Unknown [id number] [id number] 1973 Unknown [id number] [id number] 1973 Unknown [id number] [id number] 1973 Unknown [id number] [id number] 1973 Unknown [id number] [id number] 1973 Unknown [id number] [id number] 1973 Unknown [id number] [id number] 1973 Unknown [id number] [id number] 1973 Unknown [id number] [id number] 1973 Unknown [id number] [id number] 1973 Unknown [id number] [id number] 1973 Unknown [id number] [id number] 1959 Unknown [id number] [id number] Self-pay Self Pay [id number] Unknown Susan BC/JM [id number] Social History Date Type Detail Facility Unknown if ever smoked [employer] Other Start: 10-01-2023 End: 12-23-2023 Sex Assigned At [facility] Start: 1975 [facility] Assigned At [facility] Start: 06-05-2023 Tobacco smoking stat [facility] Never smoked tobacco [facility] Start: [...] to any clubs or organizations such as restorationism groups, unions, fraternal or athletic groups, or [...] got money to buy more. Sometimes true [facility] In the past 12 month s, was there a time when you were not able to pay the mortgage or rent on time? Yes [facility] Start: 1975 Sex assigned at Not on file N [facility] NEGATED: Highlighted rowStart: NINF History of tobacco use Passive smoker [facility] Clinical Notes 02-19-2021 to 01-20-2024 Telephone Encounter - Akosua Ramos MA - 01/20/2024 2:37 PM EDTTelephone Encounter - Akosua Ramos MA - 01/20/2024 2:37 PM EDTBvito White NP - 12/30/2023 11:59 AM EDTPatient Instructions Note Date & Type Note Facility 01-20-2024 Telephone encount er Note The prior auth for the dexcom was denied because he is not currently using insulin. [facility] 01-20-2024 Miscellaneous Notes Formattin g of this note might be different from the original. The prior auth for the dexcom was denied because he is not currently using insulin. documented in this encounter [facility] 12-30-2023 History of Presen t illness [...] ALBUMIN GLOBULIN RATIO 1.1 Resulting Agency [facility] DMII: Currently taking Glipizide 5mg BID Ozempic [...] Problem List Items Addressed This Visit Dyslipidemia ([facility]) Currently taking Pravastatin 40mg Denies any myalgias. Most recent Lipid Panel done 5 months ago- WNL Continue current regimen. Essential hypertension ([facility]) Currently taking losartan-hydrochlorothiazide 100-25 Amlodipine 10mg Carvedilol 25mg Does not check BP at home; Denies orthostatic changes, dizziness, cough, shortness of breath, swelling in extremities. Continue current regimen. Given BP log, advised pt to record BP and bring log back with them to next visit. Type 2 diabetes mellitus without complication, without long-term current use of insulin ([facility]) - Primary Currently taking Glipizide 5mg [...] do not improve. documented in this encounter [facility] 12-30-2023 Instructions Margarette White NP - 12/30/2023 9:00 AM EDT Referral sent to GI for colonoscopy- they will call you. If you don't hear from them in 2 weeks, call my office! Have A1C completed. Try taking miralax to help ease constipation. Call if stomach cramping doesn't subside. documented in this encounter [facility] 03-13-2022 Evaluation note Encounter Date Diagnosis [...] no improvement in 2 to 3 days. [employer] Other 07-20-2022 Evaluation note* Encounter Date Diagnosis [...] the ER for worsening symptoms or concern [employer] Other 2022 Evaluation note* Encounter Date Diagnosis [...] Other [facility] care material was printed [employer] Other 11-29-2021 Evaluation note* Encounter Date Diagnosis [...] Patient care instructions given in writting by [facility] Care At Home document [employer] Other Evaluation noteNo assessment information available [facility] Work Phone: Evaluation note* Diagnosis Type 2 diabetes mellitus without complication, without long-term current use of insulin (CMS/HCC)- Primary Dyslipidemia (CMS/HCC) Other and unspecified hyperlipidemia Essential hypertension (CMS/HCC) Unspecified essential hypertension Positive colorectal cancer screening using Cologuard test Screening for colon cancer Special screening for malignant neoplasms, colon Constipation, unspecified constipation type documented in this encounter [facility] HealthcareEvaluation note* Diagnosis Encounter for screening [...] insulin (CMS/HCC)- Primary documented in this encounter [facility] HealthcareEvaluation note* Diagnosis Encounter for screening for [...] exam Routine [facility] Acute bilateral low back pain [...] of insulin (CMS/HCC) documented in this encounter [facility] HealthcareHistory general Narrative - Reported* Type Description Date Medical History HTN Medical History Pre diabetic Medical History Anger issues Medical History Hyperlipidemia [employer] Other Reason for referral (narrative)* Consultation (Routine) - Pending Review Specialty Diagnoses / Procedures Referred By Luis morel Referred To Contact Gastroenterology Diagnoses Positive colorectal cancer screening using Cologuard test Screening for colon cancer Procedures IA OFFICE/OUTPATIENT NEW HIGH MDM 60 MINUTES Margarette White NP [address] [place] [address] Pati Corona MD [address] [place] [id number] Referral ID Status Reason Start Date Expiration Date Visits Requested Visits Authorized [id number] Pending Review Specialty Services Required 12/30/2023 06/27/2024 [...] Dates Mamie Cannon NP-C Attending Provider Active Youth Coordinator Relationship Specialty Start Date End Date Richard Harris MD [address] [place] [phone] PCP - General Family Medicine 11/04/23 Margarette White NP [address] [place] [address] Nurse Practitioner Family Medicine 11/04/23 Youth Coordinator Relationship Specialty Start Date End Date Richard Harris MD [address] [place] [phone] PCP - General Family Medicine 11/04/23 Margarette White NP [address] [place] [phone] Nurse Practitioner Family Medicine 11/04/23 Youth Coordinator Relationship Specialty Start Date End Date Richard Harris MD [address] [place] [phone] PCP - General Family Medicine 11/04/23 Margarette White NP [address] [place] [address] Nurse Practitioner Family Medicine 11/04/23 Youth Coordinator Relationship Specialty Start Date End Date Margarette White NP [address] [place] [address] Nurse Practitioner [facility] Medicine 11/04/23 Goals (unrecognized section and content) Goals may be documented in a n alternate section (unrecognized sect ion and content) No Status Records FoundNo Status Records FoundNo Status Records FoundNo Status Records FoundNo Status Records Found INFORMATION SOURCE (unrecogn ized section and content) DATE CREATED AUTHOR 10/18/2021 [facility] DATE CREATED AUTHOR AUTHOR'S ORGANIZ ATION 08/01/2022 [facility] DATE CREATED AUTHOR AUTHOR'S ORGANIZ ATION 08/24/2023 [facility] DATE CREATED AUTHOR AUTHOR'S ORGANIZ ATION 11/19/2023 [facility] DATE CREATED AUTHOR AUTHOR'S ORGANIZ ATION 12/31/2023 [facility] dicnd Specialists EPIC FOR RECORDS PERTAINING TO PATIENTS [...] BE BASED ON THE PRIMARY CLINICAL RECORDS. [facility], [facility]. provides no warranty or guarantee of the accuracy or completeness of information in this document.
[2024-02-23 08:17] VITALS: BP 137/82; PULSE 88; TEMP 36.7; O2SAT 97
[2024-02-23 08:22] LABS: Glucometer 244 mg/dL (74-106)
[2024-02-23 08:37] VITALS: BP 136/73; PULSE 81; O2SAT 93
[2024-02-23 08:38] VITALS: BP 140/72; PULSE 81; O2SAT 94
[2024-02-23] MEDS: BUPIVACAINE HCL 0.25% PF 25 MG/10 ML VIAL 8 ML INJ (08:38)
[2024-02-23] MEDS: LIDOCAINE HCL 2% 400 MG/20 ML MDV INJ (08:39)
--- NOTE | 2024-02-23 08:41 | W.PM.PROCNOT ---
Date of procedure: 02/23/24 Pre-op diagnosis: Pain due to lumbar spondylosis without myelopathy Post-op diagnosis: same as pre-op Procedure: Procedure: Bilateral L4-5, L5-S1 medial branch block Medications: Bupivacaine 0.25% 6cc The patient was seen and examined in the preoperative holding area.? An informed consent was obtained and placed on the chart.? The patient was brought to the medical procedure unit and placed in the prone position.? A timeout was completed verifying correct patient, procedure site, positioning, plan, and special equipment.? Using aseptic technique, the needle was placed at left L4. Under direct fluoroscopic visualization a Quincke-tipped spinal needle was advanced to the junction of the superior articulating process with the transverse process at the designated medial branch segment.? Preceded by negative aspiration, the above-mentioned injectate was placed in 1 mL aliquots.? The procedure was repeated at left L5, S1.? The needle was removed and insertion site was covered. The same procedure, at the same levels, was completed on the right side. The patient was taken to the postprocedural recovery area and monitored for an appropriate length of time before found suitable for discharge in the company of a responsible adult. Anesthesia: Local Surgeon: Swapnil Perkins Pathology: none sent Condition: stable Disposition: no change
== END 2024-02-23 08:46 | disposition home or self-care (01) ==
LOC: SURGOUT 07:46
PROVIDERS: Visit Provider Anesthesiology
DX: M47.816 Spondylosis without myelopathy or radiculopathy, lumbar region (principal)
CPT/HCPCS: 36415; 64493; 64494; 82948; J0665

== ENCOUNTER 2024-03-03 10:45 | Outpatient (OUT) | payer OTHER, SELFPAY ==
--- NOTE | 2024-03-03 11:05 | P.CN_ITS ---
Consult Note: HPI Data of Consult Patient: known to practice within the last 3 years Requesting Physician: Riri Hastings NP Primary Care Provider: ANNA SMITH Consult Narrative Reason for consult: low back pain Narrative: Hair Santos a pleasant 48 year old male presents for evaluation and management of low back pain with radiculopathy referred by Dr Montgomery and team. Patient noticed significant pain with radiculopathy in May of 2023 and has advanced imaging as noted below. Patient would like to defer on surgical intervention at this time. Pain today 2/10 in low back, at worst 8-9/10. Denies loss of bowel/bladder. No falls. Patient finds benefit to aleve and tylenol otc. completed 6 weeks of PT without improvement. Recent right L3/4 TFESI providing moderate relief per pt in pain ongoing with NC. continues to have axial low back pain. recent bilateral L4/5 L5/S1 MBB with no improvement. cc:: CC: Riri Hastings NP Review of Systems ROS Status of ROS 10 or more systems reviewed and unremark able except as noted in history and below Musculoskeletal Reports: back pain; Denies: extremity pain PFSH PFSH Medical History (Updated 03/03/24 @ 11:06 by Riri Hastings NP) Neck pain ?M54.2 - Cervicalgia (ICD-10) Obesity ?E66.9 - Obesity, unspecified (ICD-10) Back pain ?M54.9 - Dorsalgia, unspecified (ICD-10) Anxiety ?F41.9 - Anxiety disorder, unspecified (ICD-10) Diabetes ?E11.9 - Type 2 diabetes mellitus without complications (ICD-10) Kidney stone ?N20.0 - Calculus of kidney (ICD-10) MARKO treated with BiPAP ?G47.33 - Obstructive sleep apnea (adult) (pediatric) (ICD-10) Sleep apnea ?G47.30 - Sleep apnea, unspecified (ICD-10) Asthma ?J45.909 - Unspecified asthma, uncomplicated (ICD-10) Angina at rest ?I20.89 - Other forms of angina pectoris (ICD-10) HTN (hypertension) ?I10 - Essential (primary) hypertension (ICD-10) Surgical History History of carpal tunnel release ?Z98.890 - Other specified postprocedural states (ICD-10) Meds Home Medications and Allergies Home Medications ?Medication ?Instructions ?Recorded ?Confirmed ?Type allopurinol 300 mg tablet 300 mg PO Q12H 10/24/22 02/23/24 History amlodipine 10 mg tablet 10 mg PO QDAY 10/24/22 02/23/24 History aspirin 81 mg tablet,delayed 81 mg PO QDAY 10/24/22 02/23/24 History release buspirone 10 mg tablet 10 mg PO QDAY 10/24/22 02/23/24 History carvedilol 25 mg tablet 25 mg PO Q12H 10/24/22 02/23/24 History losartan 100 1 tab PO QDAY 10/24/22 02/23/24 History mg-hydrochlorothiazide 25 mg tablet pravastatin 40 mg tablet 40 mg PO QDAY 10/24/22 02/23/24 History tizanidine 4 mg tablet 4 mg PO Q12H 10/24/22 02/23/24 History cyclobenzaprine 10 mg tablet 10 mg PO TID PRN muscle spasm #20 06/16/23 02/23/24 Rx tabs semaglutide 1 mg/dose (2 mg/1.5 1 mg subcut QWEEK 11/03/23 02/23/24 History mL) subcutaneous pen injector Allergies Allergy/AdvReac Type Severity Reaction Status Date / Time No Known Drug Allergies Allergy Verified 02/23/24 08:22 Exam Constitutional Documenting provider has reviewed patient's vital signs: yes Common normals: no apparent distress, oriented x3, healthy appearing, alert and well nourished General appearance: cooperative [facility] Common normals: normocephalic, hearing grossly normal bilaterally and moist oral mucous membranes Head and scalp: normocephalic Eye Common normals: PERRL Pupil: PERRL Neck & C-Spine Common normals: full ROM General: normal visual inspection Chest Common normals: inspection of chest normal Respiratory Common normals: normal respiratory effort, no retractions and no use of accessory muscles Back & Pelvis Lumbar spine/lower back: normal to inspection, lumbar ROM normal, pain with ROM and straight leg raise negative bilaterally Sacroiliac joints: SI joints normal Other: positive facet loading sensation intact BLE strength 5/5 in BLE Extremity Common normals: normal to inspection and full ROM Neuro Common normals: oriented x3, CN's II-XII intact bilaterally, moves all extremities, no focal motor deficits, no sensory deficits noted and deep tendon reflexes 2+ bilaterally Sensorium/orientation: alert Motor exam: strength 5/5 throughout and no movement abnormalities noted Psych Common normals: mental status grossly normal, thought process normal, cooperative, affect normal, speech normal and activity/motor behavior normal Speech: normal speech Thought process: normal thought process Results Additional Findings Additional findings: If on a controlled substance or opioids, I have checked an [place] report on this patient and there are no aberrancies noted in the prescribing history.??If on a controlled substance or opioid a drug screen was completed and reviewed within the last year, and if there has not been a drug screen completed we ordered one today to monitor higher risk, state monitored pain medication use. As part of providing excellent, safe, comprehensive care, the following was completed at our patient's visit: 1. A medication reconciliation and review to ensure accurate knowledge of current/active medications, including asking our patients to inform us about any [id number] medications or herbal remedies/nutritional supplements/a lternative remedies. 2. A review to specifically ensure our patients have had annual screening for screening for depression, screening for tobacco use, and screening for unhealthy alcohol use. For concerning screenings had a discussion with the patient, provided patient education, and recommended follow-up with primary care provider when appropriate. If patient noted with a risk of falling, they received education on strength, gait, and balance training to prevent future risk of falling. Assessment and Plan Assessment and Plan (1) Lumbar spondylosis: (2) Lumbar stenosis with neurogenic claudication: (3) Myalgia, other site: Plan bilateral L2/3 L3/4 MBB x2 working towards RFA under fluoroscopy, risks vs benefits reviewed start baclofen 10mg TID PRN pain/spasms, risks vs benefits reviewed stop otc NSAIDs, start meloxicam 7.5mg BID PRN pain. risks vs benefits reviewed f/u after each injection
--- OUTSIDE RECORDS SUMMARY | 2024-03-03 11:08 | XMS_ITS | CCD ---
Author Organization [facility] Care Team Providers Care Phototypesetting Equipment Monitor Name Role Phone Alexandra Gill Unavailable DimasAlexandra [...] Admitting Unavailable MIKAYLA COVINGTON Consulting Unavailable FAWWAD, IYN H Attending Unavailable FAWWAD, YIN H Primary [...] Attending Unavailable FAWWAD, YIN Attending Unavailable FAWWAD, YNI Attending Unavailable FAWWAD, YIN Attending Unavailable JEANNE LUCIANO Attending Unavailable DEBRA CHAMORRO Referring Unavailable SHAIKH HERRMANN Attending Unavailable MARGARETTE WHITE Attending UnavailRichard Hunt MD Primary Care Provider [phone] Christopher PIPE ROLLER, Margarette Unavailable Maddie SIMS, Swapnil Cummins Attending Unavailable Maddie SIMS, Swapnil Cummins Attending Unavailable Medications Current Medications Medication Drug Class(es) Dates Sig (Normalized) Sig (Original) acetaminophen 325 mg / HYDROcodone bitartrate 5 mg oral tablet (5 sources) Opioid Agonist Start: 10-06-2023 take 1 tablet by mouth every six hours as needed HYDROcodone-aceta minophen ([place]) 5-325 MG tablet Take 1 tablet by mouth every 6 (six) hours if needed 10/06/2023 Active [id number] 200 actuat albuterol 0.09 mg/actuat metered dose [...] Orally Three times a day Nov, Active busPIRone hydrochloride 10 mg oral tablet [...] Start: 10-10-2021 take 1 capsule by mo [facility] every twelve hours Cephalexin 500 MG 1 capsule Orally two times a day for 5 day(s) Sep, Active Start: 05-19-2021 take 1 tablet by chintan every twelve hours Cephalexin 500 MG 1 tablet Orally every 12 hrs for 10 day(s) Apr, Active Continuous Glucose Materials Management Manager (Dexcom G7 Materials Management Manager) device (2 sources) Start: 01-05-2024 Continuous Glucose Materials Management Manager (Dexcom G7 Materials Management Manager) device Indications: Type 2 diabetes mellitus without complication, without long-term current use of insulin (CMS/HCC) 1 each continuously 1 each 2 01/05/2024 Active Continuous Glucose Sensor (Dexcom G7 Sensor) misc (2 sources) Start: 01-05-2024 Continuous Glucose Sensor (Dexcom G7 Sensor) misc Indications: Type 2 diabetes mellitus without complication, without long-term current use of insulin (CMS/HCC) 1 each continuously 3 each 1 01/05/2024 Active Continuous Glucose Sensor (FreeStyle Marlon 2 Sensor) misc (5 sources) Start: 09-22-2023 Continuous Glucose Sensor (FreeStyle Marlon 2 Sensor) misc Indications: Type 2 diabetes mellitus without complication, [...] (Hyzaar) 100-25 MG tablet Indications: Essential hypertension ([facility]/HCC) Take 1 tablet by mouth Daily 90 [...] complication, without long-term current use of insulin ([facility]) Inject 2 mg under the skin every 7 (seven) days 9 mL 1 01/26/2024 04/25/2024 Active Start: 10-01-2023 Semaglutide, 2 MG/DOSE, (Ozempic, 2 MG/DOSE,) 8 MG/3ML solution pen-injector Indications: Type 2 diabetes mellitus without complication, without long-term current use of insulin ([facility]) Inject 2 mg under the skin every 7 (seven) days 9 mL 1 10/01/2023 Active sertraline 50 mg oral tablet (11 sources) Serotonin Reuptake Inhibitor Start: 10-01-2023 End: 03-29-2024 take 1 tablet by mouth in the morning sertraline (Zoloft) 50 MG tablet Indications: JAN (generalized anxiety disorder) ([facility]) Take 1 tablet (50 mg) by mouth in the morning. 90 tablet 1 10/01/2023 03/29/2024 Active Zoloft Active spironolactone 25 mg oral tablet (5 sources) Aldosterone Antagonist Start: 10-01-2023 End: 03-29-2024 take 1 tablet by mouth once daily spironolactone (Aldactone) 25 MG tablet Indications: Essential hypertension ([facility]) Take 1 tablet (25 mg) by mouth [...] source) [facility] (current) use of aspirin; Translations: [CORRECTION CURRENT USE OF ASPIRIN] Onset: 07-29-2022 Episodic Other aftercare (1 source) Other custodial (current) drug therapy; Translations: [OTH CORRECTION CURRENT [...] Amylase [Catalytic activity/Vol] 32 U/L Normal 25-115 [facility] Comment on above: Performed By: #### L IPA, JORDON, CMP #### [facility] [address], [place] [address] Dr. Brady Sanders CBC AUTO DIFFon 07-25-2022 BASO # 0.0 103/ul Normal 0.0-0.1 [facility] Comment on above: Performed By: #### C BC #### [facility] [address] [place] [address] Dr. Brady Sanders Basophils/100 WBC (Bld) 0.4 % Normal 0.2-2.0 [facility] Comment on above: Performed By: #### C BC #### [facility] [address] [place] [address] Dr. Brady Sanders EO # 0.1 103/ul Normal 0.0-0.7 [facility] Comment on above: Performed By: #### C BC #### [facility] [address] [place] [address] Dr. Brady Sanders Eosinophils/100 WBC (Bld) 1.5 % Normal 0.9-7.0 [facility] Comment on above: Performed By: #### C BC #### [facility] [address] [place] [address] Dr. Brady Sanders Erythrocyte distribution width (RBC) [Ratio] 13.2 % Normal 11.0-15.0 [facility] Comment on above: Performed By: #### C BC #### [facility] [address] [place] [address] Dr. Brady Sanders Hematocrit (Bld) [Volume fraction] 41.0 % Critically low 42.0-54.0 [facility] Comment on above: Performed By: #### C BC #### [facility] [address] [place] [address] Dr. Brady Sanders Hemoglobin (Bld) [Mass/Vol] 13.8 g/dL Critically low 14.0-18.0 [facility] Comment on above: Performed By: #### C BC #### [facility] [address] [place] [address] Dr. Brady Sanders IG # 0.03 10e3/ul Normal 0.00-0.03 [facility] Comment on above: Performed By: #### C BC #### [facility] [address] [place] [address] Dr. Brady Sanders IG % 0.4 % Normal 0.0-0.5 [facility] Comment on above: Performed By: #### C BC #### [facility] [address] [place] [address] Dr. Brady Sanders LYMPH # 1.8 103/ul Normal 1.2-3.8 [facility] Comment on above: Performed By: #### C BC #### [facility] [address] [place] [address] Dr. Brady Sanders Lymphocytes/100 WBC (Bld) 21.4 % Normal 20.5-60.0 [facility] Comment on above: Performed By: #### C BC #### [facility] [address] [place] [address] Dr. Brady Sanders MANUAL DIFF REQ NO Normal [facility] Comment on above: Performed By: #### C BC #### [facility] [address] [place] [address] Dr. Brady Sanders MCH (RBC) [Entitic mass] 28.1 pg Normal 25.9-34.0 [facility] Comment on above: Performed By: #### C BC #### [facility] [address] [place] [address] Dr. Brady Sanders MCHC (RBC) [Mass/Vol] 33.7 g/dL Normal 29.9-35.2 [facility] Comment on above: Performed By: #### C BC #### [facility] [address] [place] [address] Dr. Brady Sandesr MCV (RBC) [Entitic vol] 83.5 fL Normal 80.0-94.0 [facility] Comment on above: Performed By: #### C BC #### [facility] [address] [place] [address] Dr. Brady Sanders MONO # 0.5 103/ul Normal 0.3-0.8 [facility] Comment on above: Performed By: #### C BC #### [facility] [address] [place] [address] Dr. Brady Sanders Monocytes/100 WBC (Bld) 6.2 % Normal 1.7-12.0 [facility] Comment on above: Performed By: #### C BC #### [facility] [address] [place] [address] Dr. Brady Sanders NEUT # 5.9 103/ul Normal 1.4-6.5 [facility] Comment on above: Performed By: #### C BC #### [facility] [address] [place] [address] Dr. Brday Sanders Neutrophils/100 WBC (Bld) 70.1 % Normal 43.0-75.0 [facility] Comment on above: Performed By: #### C BC #### [facility] [address] [place] [address] Dr. Brady Sanders Platelet mean volume (Bld) [Entitic vol] 9.6 fL Normal 9.5-13.5 [facility] Comment on above: Performed By: #### C BC #### [facility] [address] [place] [address] Dr. Brady Sanders PLT 216 103/ul Normal 150-450 [facility] Comment on above: Performed By: #### C BC #### [facility] [address] [place] [address] Dr. Brady Sanders RBC 4.91 106/ul Normal 4.70-6.10 [facility] Comment on above: Performed By: #### C BC #### [facility] [address] [place] [address] Dr. Brady Sanders WBC 8.4 103/ul Normal 4.0-11.0 [facility] Comment on above: Performed By: #### C BC #### [facility] [address] [place] [address] ABD/PELV W CONon [...] by: KAVIN BRIONES Date: 2022-07-25 10:58 Normal [facility] LIPASEon 07-25-2022 Lipase [Catalytic activity/Vol] 96.0 U/L Normal 73.0-393.0 [facility] Comment on above: Performed By: #### L JORDON GARRETT, CMP #### [facility] [address] [place] [address] Dr. Brady Sanders PROF 14(COMP METB)on 023 Albumin [Mass/Vol] 3.4 g/dL Normal 3.4-5.0 [facility] Comment on above: Performed By: #### L JORDON GARRETT, CMP #### [facility] [address] [place] [address] Dr. Brady Sanders Albumin/Globulin [Mass ratio] 0.9 {ratio} Normal [facility] Comment on above: Performed By: #### L JORDON GARRETT, CMP #### [facility] [address] [place] [address] Dr. Brady Sanders ALP [Catalytic activity/Vol] 88 U/L Normal 46-116 [facility] Comment on above: Performed By: #### L JORDON GARRETT, CMP #### [facility] [address] [place] [address] Dr. Brady Sanders ALT [Catalytic activity/Vol] 27 U/L Normal 16-63 [facility] Comment on above: Performed By: #### L JORDON GARRETT, CMP #### [facility] [address] [place] [address] [address] Brady Sanders Anion gap [Moles/Vol] 9.2 mmol/L Normal [facility] Comment on above: Performed By: #### L JORDON GARRETT, CMP #### [facility] [address] [place] [address] [address] Brady Sanders AST [Catalytic activity/Vol] 18 U/L Normal 15-37 [facility] Comment on above: Performed By: #### L JORDON GARRETT, CMP #### [facility] [address] [place] [address] Dr. Brady Sanders Bilirubin [Mass/Vol] 0.4 mg/dL Normal 0.2-1.0 [facility] Comment on above: Performed By: #### L JORDON GARRETT, CMP #### [facility] [address] [place] [address] Dr. Brady Sanders Calcium [Mass/Vol] 8.5 mg/dL Normal 8.5-10.1 [facility] Comment on above: Performed By: #### L JORDON GARRETT, CMP #### [facility] [address] [place] [address] [address] Brady Sanders Chloride [Moles/Vol] 103 mmol/L Normal 98-107 [facility] Comment on above: Performed By: #### L JORDON GARRETT, CMP #### [facility] [address] [address] [address] Brady Sanders CO2 [Moles/Vol] 31.1 mmol/L Normal 21.0-32.0 [facility] Comment on above: Performed By: #### L GERRY JORDON, CMP #### [facility] [address] [address] [address] Brady Sanders Creatinine [Mass/Vol] 0.79 mg/dL Normal 0.70-1.30 [facility] Comment on above: Performed By: #### L JORDON GARRETT, CMP #### [facility] [address] [address] [address] Brady Sanders EGFR-AF BRITISH >60 Normal >=60 [facility] Comment on above: Performed By: #### L IPA, JORDON, CMP #### [facility] [address] [address] [address] Brady Sanders EGFR-NON AF BRITISH >60 Normal >=60 [facility] Comment on above: Performed By: #### L GERRY JORDON, CMP #### [facility] [address] [address] [address] Brady Sanders Globulin (S) [Mass/Vol] 3.8 g/dL Normal [facility] Comment on above: Performed By: #### L GERRY JORDON, CMP #### [facility] [address] [address] [address] Brady Sanders Glucose [Mass/Vol] 140 mg/dL Critically high 74-106 [facility] Comment on above: Performed By: #### L JORDON GARRETT, CMP #### [facility] [address] [address] [address] Brady Sanders Potassium [Moles/Vol] 3.3 mmol/L Critically low 3.5-5.1 [facility] Comment on above: Performed By: #### L JORDON GARRETT, CMP #### [facility] [address] [address] [address] Brady Sanders Protein [Mass/Vol] 7.2 g/dL Normal 6.4-8.2 [facility] Comment on above: Performed By: #### L JORDON GARRETT, CMP #### [facility] [address] [address] [address] Brady Sanders Sodium [Moles/Vol] 140 mmol/L Normal 136-145 [facility] Comment on above: Performed By: #### L JORDON GARRETT, CMP #### [facility] [address] [address] [address] Brady Sanders Urea nitrogen [Mass/Vol] 10.0 mg/dL Normal 7.0-18.0 [facility] Comment on above: Performed By: #### L JORDON GARRETT, CMP #### [facility] [address] [address] [address] Brady Sanders Urea nitrogen/Creatinine [Mass ratio] 12.7 mg/mg Normal [facility] Comment on above: Performed By: #### L IPA, JORDON, CMP #### [facility] [address] [address] [address] Brady Sanders NM HEPATOBILIARY SCAN W EFon 07-24-2022 NM HEPATOBILIARY SCAN W EF HIDA SCAN WITH GALLBLADDER EJECTION FRACTION HISTORY: Abdominal Pain. COMPARISON: Ultrasound 07/11/2022. METHOD: Following IV injection of 5. mCi of [id number] , anterior imaging of the abdomen was [...] by: KIM JARRETT Date: 2022-07-24 09:14 Normal [facility] US SINGLE QUAD RT UPPERon US [...] by: MIKAYLA COVINGTON Date: 2022-07-11 11:55 Normal [facility] GLYCOHEMOGLOBIN A1Con 2022 ADA RECOMMENDATION SEE BELOW Normal [facility] Comment on above: Result Comment: ADA RECOMMENDED LIMIT 4.0 - 6.0 ADA THERAPEUTIC TARGET < 7.0 ACTION SUGGESTED > 7.0 Performed By: #### A 1C #### [facility] [address] [place] [address] Dr. Brady Sanders Glucose [Mass/Vol] 143 mg/dL Normal [facility] Comment on above: Performed By: #### A 1C #### [facility] [address] [place] [address] Dr. Brady Sanders HbA1c (Bld) [Mass fraction] 6.6 % Critically high 4.5-6.2 [facility] Comment on above: Performed By: #### A 1C #### [facility] [address] [place] [address] Dr. Brady Sanders COVID + FLU Quick Testingon 03-13-2022 SARS-CoV-2 (COVID-19) RNA ADELINA+probe Ql (Unsp spec) Positive [facility] Other COVID + FLU Quick Testing Negative [facility] Other CBC AUTO DIFFon 03-07-2022 BASO # 0.0 103/ul Normal 0.0-0.1 [facility] Comment on above: Performed By: #### C BC #### [facility] [address] [place] [address] Dr. Brady Sanders Basophils/100 WBC (Bld) 0.5 % Normal 0.2-2.0 [facility] Comment on above: Performed By: #### C BC #### [facility] [address] [place] [address] Dr. Brady Sanders EO # 0.1 103/ul Normal 0.0-0.7 [facility] Comment on above: Performed By: #### C BC #### [facility] [address] [place] [address] Dr. Brady Sanders Eosinophils/100 WBC (Bld) 1.8 % Normal 0.9-7.0 [facility] Comment on above: Performed By: #### C BC #### [facility] [address] [place] [address] Dr. Brady Sanders Erythrocyte distribution width (RBC) [Ratio] 13.5 % Normal 11.0-15.0 [facility] Comment on above: Performed By: #### C BC #### [facility] [address] [place] [address] Dr. Brady Sanders Hematocrit (Bld) [Volume fraction] 46.5 % Normal 42.0-54.0 [facility] Comment on above: Performed By: #### C BC #### [facility] [address] [place] [address] Dr. Brady Sanders Hemoglobin (Bld) [Mass/Vol] 15.6 g/dL Normal 14.0-18.0 [facility] Comment on above: Performed By: #### C BC #### [facility] [address] [place] [address] Dr. Brady Sanders IG # 0.02 10e3/ul Normal 0.00-0.03 [facility] Comment on above: Performed By: #### C BC #### [facility] [address] [place] [address] Dr. Brady Sanders IG % 0.3 % Normal 0.0-0.5 [facility] Comment on above: Performed By: #### C BC #### [facility] [address] [place] [address] Dr. Brady Sanders LYMPH # 1.8 103/ul Normal 1.2-3.8 [facility] Comment on above: Performed By: #### C BC #### [facility] [address] [place] [address] Dr. Brady Sanders Lymphocytes/100 WBC (Bld) 22.3 % Normal 20.5-60.0 [facility] Comment on above: Performed By: #### C BC #### [facility] [address] [place] [address] Dr. Brady Sanders MANUAL DIFF REQ NO Normal [facility] Comment on above: Performed By: #### C BC #### [facility] [address] [place] [address] Dr. Brady Sanders MCH (RBC) [Entitic mass] 28.0 pg Normal 25.9-34.0 [facility] Comment on above: Performed By: #### C BC #### [facility] [address] [place] [address] Dr. Brady Sanders MCHC (RBC) [Mass/Vol] 33.5 g/dL Normal 29.9-35.2 [facility] Comment on above: Performed By: #### C BC #### [facility] [address] [place] [address] Dr. Brady Sanders MCV (RBC) [Entitic vol] 83.3 fL Normal 80.0-94.0 [facility] Comment on above: Performed By: #### C BC #### [facility] [address] [place] [address] Dr. Brady Sanders MONO # 0.5 103/ul Normal 0.3-0.8 [facility] Comment on above: Performed By: #### C BC #### [facility] [address] [place] [address] Dr. Brady Sanders Monocytes/100 WBC (Bld) 6.1 % Normal 1.7-12.0 [facility] Comment on above: Performed By: #### C BC #### [facility] [address] [place] [address] Dr. Brady Sanders NEUT # 5.4 103/ul Normal 1.4-6.5 [facility] Comment on above: Performed By: #### C BC #### [facility] [address] [place] [address] Dr. Brady Sanders Neutrophils/100 WBC (Bld) 69.0 % Normal 43.0-75.0 [facility] Comment on above: Performed By: #### C BC #### [facility] [address] [place] [address] Dr. Brady Sanders Platelet mean volume (Bld) [Entitic vol] 10.3 fL Normal 9.5-13.5 [facility] Comment on above: Performed By: #### C BC #### [facility] [address] [place] [address] Dr. Brady Sanders PLT 230 103/ul Normal 150-450 [facility] Comment on above: Performed By: #### C BC #### [facility] [address] [address] [address] Brady Sanders RBC 5.58 106/ul Normal 4.70-6.10 [facility] Comment on above: Performed By: #### C BC #### [facility] [address] [place] [address] Dr. Brady Sanders WBC 7.9 103/ul Normal 4.0-11.0 [facility] Comment on above: Performed By: #### C BC #### [facility] [address] [place] [address] Dr. Brady Sanders GLYCOHEMOGLOBIN A1Con 2021 ADA RECOMMENDATION SEE BELOW Normal [facility] Comment on above: Result Comment: ADA RECOMMENDED LIMIT 4.0 - 6.0 ADA THERAPEUTIC TARGET < 7.0 ACTION SUGGESTED > 7.0 Performed By: #### A 1C #### [facility] [address] [place] [address] Dr. Brady Sanders Glucose [Mass/Vol] 200 mg/dL Normal [facility] Comment on above: Performed By: #### A 1C #### [facility] [address] [place] [address] Dr. Brady Sanders HbA1c (Bld) [Mass fraction] 8.6 % Critically high 4.5-6.2 [facility] Comment on above: Performed By: #### A 1C #### [facility] [address] [place] [address] Dr. Brady Sanders LIPID PROFILEon 03-07-2022 CHOL-HDL RATIO NORM SEE BELOW Normal [facility] Comment on above: Result Comment: 3.3 - 4.4 LOW RISK 4.4 - 7.1 AVERAGE RISK 7.1 - 11.0 MODERATE RISK >11.0 HIGH RISK Performed By: #### L JORDON GARRETT CMP #### [facility] [address] [place] [address] Dr. Brady Sanders Cholesterol [Mass/Vol] 136 mg/dL Normal <=200 [facility] Comment on above: Performed By: #### L JORDON GARRETT CMP #### [facility] [address] [place] [address] Dr. Brady Sanders Cholesterol in HDL [Mass/Vol] 26 mg/dL Critically low 40-60 [facility] Comment on above: Performed By: #### L JORDON GARRETT, CMP #### [facility] [address] [address] [address] Brady Sanders Cholesterol in LDL [Mass/Vol] 77.2 mg/dL Normal [facility] Comment on above: Performed By: #### L JORDON GARRETT, CMP #### [facility] [address] [address] [address] Brady Sanders Cholesterol.total/C holesterol in HDL [Mass ratio] 5.2 {ratio} Normal [facility] Comment on above: Performed By: #### L JORDON GARRETT, CMP #### [facility] [address] [place] [address] Dr. Brady Sanders HDL NORMAL > or = 60 mg/dl - LO W CARDIOVASCULAR RISK <40 mg/dl - HIGH CARDIOVASCULAR RISK Normal [facility] Comment on above: Performed By: #### L JORDON GARRETT, CMP #### [facility] [address] [place] [address] Dr. Brady Sanders LDL CALC NORMAL SEE BELOW Normal [facility] Comment on above: Result Comment: <100 mg/dl OPTIMAL 100 - 129 mg/dl NEAR OR ABOVE OPTIMAL 130 - 159 mg/dl BORDERLINE HIGH 160 - 189 mg/dl HIGH >190 mg/dl VERY HIGH Performed By: #### L JORDON GARRETT, CMP #### [facility] [address] [place] [address] Dr. Brady Sanders Triglyceride [Mass/Vol] 164 mg/dL Critically high <=150 [facility] Comment on above: Performed By: #### L JORDON GARRETT, CMP #### [facility] [address] [place] [address] Dr. Brady Sanders VLDL CALC 32.8 mg/dL Normal [facility] Comment on above: Performed By: #### L JORDON GARRETT, CMP #### [facility] [address] [address] [address] Brady Sanders MICROALBUMIN, RAND URon 12- mALB <1.3 Normal <=30.0 [facility] Comment on above: Performed By: #### L JORDON GARRETT, CMP #### [facility] [address] [place] [address] Dr. Brady Sanders PROF 14(COMP METB)on 022 Albumin [Mass/Vol] 3.8 g/dL Normal 3.4-5.0 [facility] Comment on above: Performed By: #### L IPA JORDON, CMP #### [facility] [address] [place] [address] Dr. Brady Sanders Albumin/Globulin [Mass ratio] 1.0 {ratio} Normal [facility] Comment on above: Performed By: #### L JORDON GARRETT, CMP #### [facility] [address] [place] [address] Dr. Brady Sanders ALP [Catalytic activity/Vol] 102 U/L Normal 46-116 [facility] Comment on above: Performed By: #### L GERRY JORDON, CMP #### [facility] [address] [place] [address] Dr. Brady Sanders ALT [Catalytic activity/Vol] 41 U/L Normal 16-63 [facility] Comment on above: Performed By: #### L JORDON GARRETT, CMP #### [facility] [address] [place] [address] Dr. Brady Sanders Anion gap [Moles/Vol] 14.7 mmol/L Normal [facility] Comment on above: Performed By: #### L GERRY JORDON, CMP #### [facility] [address] [place] [address] Dr. Brady Sanders AST [Catalytic activity/Vol] 24 U/L Normal 15-37 [facility] Comment on above: Performed By: #### L GERRY JORDON, CMP #### [facility] [address] [place] [address] Dr. Brady Sanders Bilirubin [Mass/Vol] 0.4 mg/dL Normal 0.2-1.0 [facility] Comment on above: Performed By: #### L IPA JORDON, CMP #### [facility] [address] [place], [place] [id number] Dr. Brady Sanders Calcium [Mass/Vol] 8.8 mg/dL Normal 8.5-10.1 [facility] Comment on above: Performed By: #### L JORDON GARRETT, CMP #### [facility] [address] [address] [address] Brady Sanders Chloride [Moles/Vol] 99 mmol/L Normal 98-107 [facility] Comment on above: Performed By: #### L JORDON GARRETT, CMP #### [facility] [address] [place] [address] Dr. Brady Sanders CO2 [Moles/Vol] 26.8 mmol/L Normal 21.0-32.0 [facility] Comment on above: Performed By: #### L JORDON GARRETT, CMP #### [facility] [address] [place] [address] Dr. Brady Sanders Creatinine [Mass/Vol] 1.00 mg/dL Normal 0.70-1.30 [facility] Comment on above: Performed By: #### L JORDON GARRETT, CMP #### [facility] [address] [place] [address] Dr. Brady Sanders EGFR-AF BRITISH >60 Normal >=60 [facility] Comment on above: Performed By: #### L JORDON GARRETT, CMP #### [facility] [address] [place] [address] Dr. Brady Sanders EGFR-NON AF BRITISH >60 Normal >=60 [facility] Comment on above: Performed By: #### L JORDON GARRETT, CMP #### [facility] [address] [place] [address] Dr. Brady Sanders Globulin (S) [Mass/Vol] 3.7 g/dL Normal [facility] Comment on above: Performed By: #### L JORDON GARRETT, CMP #### [facility] [address] [place] [address] Dr. Brady Sanders Glucose [Mass/Vol] 317 mg/dL Critically high 74-106 [facility] Comment on above: Performed By: #### L JORDON GARRETT, CMP #### [facility] [address] [address] [address] Brady Sanders Potassium [Moles/Vol] 3.5 mmol/L Normal 3.5-5.1 [facility] Comment on above: Performed By: #### L JORDON GARRETT, CMP #### [facility] [address] [address] [address] Brady Sanders Protein [Mass/Vol] 7.5 g/dL Normal 6.4-8.2 [facility] Comment on above: Performed By: #### L JORDON GARRETT, CMP #### [facility] [address] [address] [address] Brady Sanders Sodium [Moles/Vol] 137 mmol/L Normal 136-145 [facility] Comment on above: Performed By: #### L JORDON GARRETT, CMP #### [facility] [address] [address] [address] Brady Sanders Urea nitrogen [Mass/Vol] 11.0 mg/dL Normal 7.0-18.0 [facility] Comment on above: Performed By: #### L JORDON GARRETT, CMP #### [facility] [address] [address] [address] Brady Sanders Urea nitrogen/Creatinine [Mass ratio] 11.0 mg/mg Normal [facility] Comment on above: Performed By: #### L JORDON GARRETT, CMP #### [facility] [address] [address] [address] Brady Sanders Urinalysis - AUTOMATEDon Appearance (U) clear [employer] Other Bilirubin Ql (U) Negative [employer] Other Color (U) medium tellow [facility] Other Glucose Ql (U) >1000 [employer] Other Hemoglobin Ql (U) trace [employer] Other Ketones Ql (U) Negative [employer] Other Leukocyte esterase Test strip Ql (U) trace [facility] Other Nitrite Ql (U) Negative [employer] Other pH (U) 5.5 [pH] [facility] Other Protein Ql (U) Negative [employer] Other Specific gravity (U) [Rel density] 1.015 [facility] Other Urobilinogen (U) [Mass/Vol] 0.2 mg/dL [facility] Other Urinalysis - AUTOMATED [facility] Other Urine Cultureon 10-10-2021 Bacteria identified Cx Nom (U) Reason for Exam Dysuria Urine >100,000 colonies/ml mixed bacterial skin contaminants 2 Days PERFORMED BY: [place] [address] PATHOLOGIST COOK SUPERVISOR TIA CORDOVA M.D. 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: [facility] [employer] 12-30-2023 [id number] Body temperature 97.3 [degF] Margarette White PIPE ROLLER Work Phone: [facility] [employer] 12-30-2023 09:07-0400 Body weight 145.6 kg Margarette White PIPE ROLLER Work Phone: [facility] [employer] 12-30-2023 09:07-0400 Diastolic blood pressure 62 mm[Hg] Margarette Palomarestrick PIPE ROLLER Work Phone: [facility] 12-30-2023 09:07-0400 Heart rate 85 /min Margarette Palomarestrick PIPE ROLLER Work Phone: [facility] 12-30-2023 09:07-0400 SaO2% (BldA) [Mass fraction] 95 % Margarette Gutierrezk PIPE ROLLER Work Phone: [facility] 12-30-2023 09:07-0400 Systolic blood pressure 112 mm[Hg] Margarette Gutierrezk PIPE ROLLER Work Phone: [facility] [employer] 03-13-2022 18:15-0500 Body height 182.88 cm Mamie Kassandra Other [facility] Other 03-13-2022 18:15-0500 Body mass index (BMI) [Ratio] 47.46 kg/m2 Mamie Kassandra Other [facility] Other 03-13-2022 18:15-0500 Body temperature 98 [degF] Mamie Sweetmond Other [facility] Other 03-13-2022 18:15-0500 Body weight 158.76 kg Mamie Kassandra Other [facility] Other 03-13-2022 18:15-0500 Respiratory rate 18 /min Mamie Kassandra Other [facility] Other 03-13-2022 18:15-0500 SaO2% (BldA) [Mass fraction] 94 % Mamie Kassandra Other [facility] Other 10-10-2021 10:30-0400 Body height 182.88 cm Mamie Sweetmond Other [facility] Other 10-10-2021 10:30-0400 Body mass index (BMI) [Ratio] 46.11 kg/m2 Mamie Kassandra Other [facility] Other 10-10-2021 10:30-0400 Body temperature 98.1 [degF] Mamie Kassandra Other [facility] Other 10-10-2021 10:30-0400 Body weight 154.22 kg Mamie Kassandra Other [facility] Other 10-10-2021 10:30-0400 Diastolic blood pressure 95 mm[Hg] Mamie Kassandra Other [facility] Other 10-10-2021 10:30-0400 Respiratory rate 20 /min Mamie Kassandra Other [facility] Other 10-10-2021 10:30-0400 SaO2% (BldA) [Mass fraction] 98 % Mamie Kassandra Other [facility] Other 10-10-2021 10:30-0400 Systolic blood pressure 158 mm[Hg] Mamie Kassandra Other [facility] Other 05-10-2021 10:00-0500 Body height 182.88 cm Alexandra Dimas Other [facility] Other 05-10-2021 10:00-0500 Body mass index (BMI) [Ratio] 49.28 kg/m2 Alexandra Dimas Other [facility] Other 05-10-2021 10:00-0500 Body temperature 96.4 [degF] Alexandra Dimas Other [facility] Other 05-10-2021 10:00-0500 Body weight 164.84 kg Alexandra Dimas Other [facility] Other 05-10-2021 10:00-0500 Diastolic blood pressure 84 mm[Hg] Alexandra Dimas Other [facility] Other 05-10-2021 10:00-0500 Respiratory rate 18 /min Alexandra Dimas Other [facility] Other 05-10-2021 10:00-0500 SaO2% (BldA) [Mass fraction] 96 % Alexandra Dimas Other [facility] Other 05-10-2021 10:00-0500 Systolic blood pressure 147 mm[Hg] Alexandra Dimas Other [facility] Other 02-19-2021 10:00-0500 Body height 182.88 cm Alexandra Hannadelfinay Other [facility] Other 02-19-2021 10:00-0500 Body mass index (BMI) [Ratio] 48.82 kg/m2 Alexandra Ginty Other [facility] Other 02-19-2021 10:00-0500 Body temperature 96.4 [degF] Alexandra Ginty Other [facility] Other 02-19-2021 10:00-0500 Body weight 163.3 kg Alexandra Ginty Other [facility] Other 02-19-2021 10:00-0500 SaO2% (BldA) [Mass fraction] 95 % Alexandra Gill Other [employer] Other Encounters Encounter Date Encounter Type Care Provider Facility Start: 02-23-2024 End: 02-23-2024 ambulatory Swapnil Perkins MD [facility] Start: 01-20-2024 End: 01-26-2024 [facility]ill [facility] Comment on above: Type 2 diabetes cassy itus without complication, without long- term current use of insulin (CMS/HCC) Start: 01-05-2024 End: 01-05-2024 Orders Only Margarette White PIPE ROLLER Work Phone: [facility] Comment on above: Type 2 diabetes cassy itus without complication, without long- term current use of insulin (CMS/HCC) (Primary Dx) Start: 12-30-2023 End: 12-30-2023 Bamboo flowsheet Margarette Esteszpatrick PIPE ROLLER Work Phone: [facility] Start: 12-30-2023 End: 12-30-2023 Bamboo flowsheet Margarette Esteszpatrick PIPE ROLLER Work Phone: [facility] Start: 12-30-2023 End: 12-30-2023 Office outpatient visit 15 minutes Margarette White PIPE ROLLER Work Phone: [facility] Comment on above: Type 2 diabetes cassy itus without complication, without long- term current use of insulin (CMS/HCC) (Primary Dx); Dyslipidemia (CMS/HCC); Essential hypertension (CMS/HCC); Positive colorectal cancer screening using Cologuard test; Screening for colon cancer; Constipation, unspecified constipation type Start: 12-30-2023 End: 12-30-2023 ambulatory MARGARETTE PALOMARESTRICK Not Available Start: 11-03-2023 End: 11-03-2023 ambulatory Swapnil Perkins MD Facility:[facility] Start: 10-01-2023 Preoperative state Margarette murphy PIPE ROLLER Work Phone: [facility] Start: 10-01-2023 End: 10-01-2023 ambulatory YIN FAWWAD Not Available Start: 08-04-2023 End: 08-04-2023 ambulatory JEANNE LUCIANO Not Available Start: 07-31-2023 End: 07-31-2023 ambulatory YIN FAWWAD Not Available Start: 07-24-2023 End: 08-23-[address] [facility] Start: 07-14-2023 End: 07-14-2023 ambulatory YIN FAWWAD Not Available Start: 06-24-2023 End: 06-24-2023 ambulatory YIN FAWWAD Not Available Start: 06-23-2023 End: 07-23-[address] [facility] Start: 06-05-2023 Patient encounter procedure Margarette White PIPE ROLLER Work Phone: [facility] Start: 06-05-2023 End: 06-05-2023 ambulatory YIN FAWWAD Not Available Start: 07-25-2022 End: 07-25-[address] GILBERT Rodriguez Facility:[facility] Start: 07-24-2022 End: 07-25-2022 ambulatory YIN H FAWWAD Facility:[facility] Start: 07-11-2022 End: 07-12-2022 ambulatory YIN H FAWWAD Facility:[facility] Start: 06-03-2022 End: 06-04-2022 ambulatory YIN H FAWWAD Facility:[facility] Start: 03-13-2022 End: 03-13-2022 ambulatory Mamie Cannon Other [facility] Other Start: 03-13-2022 Office outpatient vi sit 15 minutes Mamie Cannon [facility] Start: 03-07-2022 End: 03-08-2022 ambulatory YIN H FAWWAD Facility:[facility] Start: 10-10-2021 End: 10-10-2021 ambulatory Mamie Cannon Other [facility] Other Start: 10-10-2021 Office outpatient vi sit 15 minutes Mamiehumphrey Cannon [facility] Start: 10-10-2021 End: 10-10-2021 Departed Referred PIPE ROLLER-C Mamie Cannon Work Phone: [facility] [place] Start: 05-10-2021 End: 05-10-2021 ambulatory Alexandra Dimas Other [facility] Other Start: 05-10-2021 Office outpatient vi sit 15 minutes Alexandra Dimas [facility] Start: 02-19-2021 End: 02-19-2021 ambulatory Alexandra Ginty Other [facility] Other Start: 02-19-2021 Office outpatient vi sit 15 minutes Alexandra Ginty [facility] Plan of Treatment Date Care Activity Detail Author Start: 06-17-2026 Screening for malign ant neoplasm of colon [facility] Start: 01-22-2025 Glaucoma screening Diabetes: R etinopathy Screening [facility] Start: 07-07-2024 Urine screening for protein Diabetes: Urine Protein Screening [facility] Start: 06-29-2024 End: 06-29-2024 Patient encounter procedure 06/29/2024 9:30 AM EDT Office Visit [facility] [address] [place] [address] Margarette White NP [address] [place] [address] [facility] Start: 03-24-2024 Hemoglobin A1c measurement Diabetes: Hemoglobin A1C [facility] Start: 12-30-2023 End: 12-29-2024 Hemoglobin A1c/Hemoglobin.total in Blood Hemoglobin A1c Lab Routine Type 2 diabetes mellitus without complication, without long-term current use of insulin ([facility]) Expected: 12/30/2023 (Approximate), Expires: 12/29/2024 [facility] Work Phone: Comment on above: Expected: 12/30/2023 (Approximate), Expires: 12/29/2024 Start: 12-30-2023 End: 12-30-2023 Patient encounter procedure 12/30/2023 9:00 AM EDT Office Visit [facility] [address] [place] [address] WhiteMargarette, PIPE ROLLER [address] [place] [address] Arrived [facility] Comment on above: Arrived Start: 11-23-2023 Influenza vaccination Influenza Vacc ine (#1) [facility] Start: 1975 Screening for malign ant neoplasm of colon [facility] Bacteria identified in Urine by Culture [facility] Immunizations Immunization Date Immunization Notes Care Provider Fa cility 01-16-2021 influenza, injectabl e, quadrivalent, preservative free Margarette White PIPE ROLLER Work Phone: [facility] 01-16-2021 influenza virus vaccine, unspecified formulation Margarette White PIPE ROLLER Work Phone: [facility] 02-06-2020 influenza, injectabl e, quadrivalent, contains preservative Margarette White PIPE ROLLER Work Phone: [facility] 02-21-2019 Influenza, injectabl e, Madin [place] Canine Kidney, preservative free, quadrivalent Margarette White PIPE ROLLER Work Phone: [facility] 01-02-2017 influenza, seasonal, injectable Margarette White PIPE ROLLER Work Phone: [facility] 12-26-2015 influenza, seasonal, injectable, preservative free Margarette White PIPE ROLLER Work Phone: [facility] 01-04-2015 influenza, seasonal, injectable, preservative free Margarette White PIPE ROLLER Work Phone: [facility] 12-30-2013 influenza, seasonal, injectable Margarette White PIPE ROLLER Work Phone: [facility] 01-07-2013 influenza, seasonal, injectable Margarette White PIPE ROLLER Work Phone: [facility] Payers Date Payer Category Payer Private Health Insurance [id number] 1975 Unknown [id number] 1973 Unknown [id number] [id number] 1973 Unknown [id number] [id number] 1973 Unknown [id number] 2.16.840.1.784545.3.579.2.593 1973 Unknown [id number] [id number] 1973 Unknown [id number] 2.16.840.1.903429.3.579.2.1286 1973 Unknown [id number] 2.16.840.1.077273.3.579.2.1286 1973 Unknown [id number] 2.16.840.1.379352.3.579.2.1259 1973 Unknown [id number] 2.16.840.1.531192.3.579.2.1259 1973 Unknown [id number] 2.16.840.1.719845.3.579.2.1259 1973 Unknown [id number] 2.16.840.1.581065.3.579.2.1259 1973 Unknown [id number] 2.16.840.1.875719.3.579.2.1259 1973 Unknown [id number] 2.16.840.1.503757.3.579.2.1259 1973 Unknown [id number] 2.16.840.1.111413.3.579.2.1259 1973 Unknown [id number] 2.16.840.1.270356.3.579.2.196 1973 Unknown [id number] 2.16.840.1.443548.3.579.2.196 1959 Unknown [id number] 2.16.8 [id number] Self-pay Self Pay [id number] Unknown Susan MURRIETA/JM [id number] Social History Date Type Detail Facility Unknown if ever smoked [facility] Other Start: 10-01-2023 End: 12-23-2023 Sex Assigned At [facility] Start: 1975 Sex Assigned At Male [facility] Start: 06-05-2023 Tobacco smoking stat [facility] Never smoked tobacco [facility] [...] to any clubs or organizations such as religious groups, unions, fraternal or athletic groups, or [...] To some extent [facility] (I/We) worried [facility] er (my/our) food would run out before (I/we) got money to buy more. Sometimes true [facility] In the past 12 month s, was there a time when you were not able to pay the mortgage or rent on time? Yes [facility] Start: 1975 Sex assigned at Not on file [facility] NEGATED: Highlighted rowStart: NINF History of tobacco use Passive smoker [facility] Clinical Notes 02-19-2021 to 01-20-2024 Telephone Encounter - Akosua Ramos MA - 01/20/2024 2:37 PM EDTTelephone Encounter - Akosua Ramos MA - 01/20/2024 2:37 PM EDTBvito White NP - 12/30/2023 11:59 AM EDTPatient Instructions Note Date & Type Note Facility 01-20-2024 Telephone encount er Note The prior auth for the dexcom was denied because he is not currently using insulin. [facility] 01-20-2024 Miscellaneous Notes Formattin g of this note might be different from the original. The prior auth for the dexcom was denied because he is not currently using insulin. documented in this encounter [facility] 12-30-2023 History of Presen t illness [...] R ALBUMIN GLOBULIN RATIO 1.1 Resulting Agency [facility] DMII: Currently taking Glipizide 5mg BID Ozempic [...] Problem List Items Addressed This Visit Dyslipidemia ([facility]) Currently taking Pravastatin 40mg Denies any myalgias. Most recent Lipid Panel done 5 months ago- WNL Continue current regimen. Essential hypertension ([facility]) Currently taking losartan-hydrochlorothiazide 100-25 Amlodipine 10mg Carvedilol 25mg Does not check BP at home; Denies orthostatic changes, dizziness, cough, shortness of breath, swelling in extremities. Continue current regimen. Given BP log, advised pt to record BP and bring log back with them to next visit. Type 2 diabetes mellitus without complication, without long-term current use of insulin ([facility]) - Primary Currently taking Glipizide 5mg BID [...] do not improve. documented in this encounter [facility] 12-30-2023 Instructions Margarette White NP - 12/30/2023 9:00 AM EDT Referral sent to GI for colonoscopy- they will call you. If you don't hear from them in 2 weeks, call my office! Have A1C completed. Try taking miralax to help ease constipation. Call if stomach cramping doesn't subside. documented in this encounter [facility] 03-13-2022 Evaluation note Encounter Date Diagnosis [...] no improvement in 2 to 3 days. [facility] Other 07-20-2022 Evaluation note* Encounter Date Diagnosis [...] the ER for worsening symptoms or concern [facility] Other 2022 Evaluation note* Encounter Date Diagnosis [...] Other [facility] home care material was printed [facility] Other 11-29-2021 Evaluation note* Encounter Date Diagnosis [...] Patient care instructions given in writting by [facility] Care At Home document [facility] Other Evaluation noteNo assessment information available [facility] Work Phone: Evaluation note* Diagnosis Type 2 diabetes mellitus without complication, without long-term current use of insulin (CMS/HCC)- Primary Dyslipidemia (CMS/HCC) Other and unspecified hyperlipidemia Essential hypertension (CMS/HCC) Unspecified essential hypertension Positive colorectal cancer screening using Cologuard test Screening for colon cancer Special screening for malignant neoplasms, colon Constipation, unspecified constipation type [facility] Diagnosis Encounter for screening for [...] insulin (CMS/HCC)- Primary documented in this encounter [facility]* Diagnosis Encounter for screening [...] of insulin (CMS/HCC) documented in this encounter [facility] Narrative - Reported* Type Description Date Medical History HTN Medical History Pre diabetic Medical History Anger issues Medical History Hyperlipidemia [facility] Other Reason for referral (narrative)* Consultation (Routine) - Pending Review Specialty Diagnoses / Procedures Referred By Luis morel Referred To Contact Gastroenterology Diagnoses Positive colorectal cancer screening using Cologuard test Screening for colon cancer Procedures OR OFFICE/OUTPATIENT NEW HIGH MDM 60 MINUTES Margarette White NP [address] [place] [phone] Pati Corona MD [address] [place] [id number] Referral ID Status Reason Start Date Expiration Date Visits Requested Visits Authorized [id number] Pending Review Specialty Services Required 12/30/2023 06/27/2024 [...] Status Dates ALEXIS NelsonC Attending Provider Active Phototypesetting Equipment Monitor Relationship Specialty Start Date End Date Richard Harris MD [address] [place] [phone] PCP - General Family Medicine 11/04/23 Margarette White NP [address] [place] [phone] Nurse Practitioner Family Medicine 11/04/23 Phototypesetting Equipment Monitor Relationship Specialty Start Date End Date Richard Harris MD [address] [place] [phone] PCP - General Family Medicine 11/04/23 Margarette White NP [address] [place] [address] Nurse Practitioner Family Medicine 11/04/23 Phototypesetting Equipment Monitor Relationship Specialty Start Date End Date Richard Harris MD [address] [place] [phone] PCP - General Family Medicine 11/04/23 Margarette White NP [address] [place] [phone] Nurse Practitioner Family Medicine 11/04/23 Phototypesetting Equipment Monitor Relationship Specialty Start Date End Date Margarette White NP [address] [place] [address] Nurse Practitioner Family Medicine 11/04/23 Goals (unrecognized section and content) Goals may be documented in a n alternate section (unrecognized sect ion and content) No Status Records FoundNo Status Records FoundNo Status Records FoundNo Status Records FoundNo Status Records Found INFORMATION SOURCE (unrecogn ized section and content) DATE CREATED AUTHOR 10/18/2021 [facility] DATE CREATED AUTHOR AUTHOR'S ORGANIZ ATION 08/01/2022 [facility] DATE CREATED AUTHOR AUTHOR'S ORGANIZ ATION 08/24/2023 [facility] [place] DATE CREATED AUTHOR AUTHOR'S ORGANIZ ATION 12/31/2023 [facility] DATE CREATED AUTHOR AUTHOR'S ORGANIZ ATION 02/27/2024 [facility] FOR RECORDS PERTAINING TO PATIENTS WHO ARE [...] BE BASED ON THE PRIMARY CLINICAL RECORDS. [employer] provides no warranty or guarantee of the accuracy or completeness of information in this document.
== END 2024-03-03 10:46 | disposition home or self-care (01) ==
PROVIDERS: Visit Provider Nurse Practitioner
DX: M47.816 Spondylosis without myelopathy or radiculopathy, lumbar region (principal); M48.062 Spinal stenosis, lumbar region with neurogenic claudication; M79.18 Myalgia, other site
CPT/HCPCS: G0463

== ENCOUNTER 2024-03-08 10:52 | Day surgery (SDC) | payer OTHER, SELFPAY ==
[2024-03-08 11:24] VITALS: BP 144/92; PULSE 89; TEMP 36.3; O2SAT 95
[2024-03-08 11:29] LABS: Glucometer 191 mg/dL (74-106)
[2024-03-08 11:42] VITALS: BP 131/64; BP 136/67; PULSE 80; PULSE 82; O2SAT 95
--- NOTE | 2024-03-08 11:46 | W.PM.PROCNOT ---
Date of procedure: 03/08/24 Pre-op diagnosis: Pain due to lumbar spondylosis without myelopathy Post-op diagnosis: same as pre-op Procedure: Procedure: Bilateral L2-3, L3-4 medial branch block Medications: Bupivacaine 0.25% 6cc The patient was seen and examined in the preoperative holding area.? An informed consent was obtained and placed on the chart.? The patient was brought to the medical procedure unit and placed in the prone position.? A timeout was completed verifying correct patient, procedure site, positioning, plan, and special equipment.? Using aseptic technique, the needle was placed at left L2. Under direct fluoroscopic visualization a Quincke-tipped spinal needle was advanced to the junction of the superior articulating process with the transverse process at the designated medial branch segment.? Preceded by negative aspiration, the above-mentioned injectate was placed in 1 mL aliquots.? The procedure was repeated at left L3, 4.? The needle was removed and insertion site was covered. The same procedure, at the same levels, was completed on the right side. The patient was taken to the postprocedural recovery area and monitored for an appropriate length of time before found suitable for discharge in the company of a responsible adult. Anesthesia: Local Surgeon: Swapnil Perkins Pathology: none sent Condition: stable Disposition: no change
[2024-03-08] MEDS: BUPIVACAINE HCL 0.25% PF 25 MG/10 ML VIAL 8 ML INJ (11:47)
[2024-03-08] MEDS: LIDOCAINE HCL 2% 400 MG/20 ML MDV INJ (11:47)
== END 2024-03-08 11:49 | disposition home or self-care (01) ==
LOC: SURGOUT 10:52
PROVIDERS: Visit Provider Anesthesiology
DX: M47.816 Spondylosis without myelopathy or radiculopathy, lumbar region (principal); E11.9 Type 2 diabetes mellitus without complications; Z79.85 Long-term (current) use of injectable non-insulin antidiabetic drugs
CPT/HCPCS: 36415; 64493; 64494; 82948; J0665

== ENCOUNTER 2024-03-10 07:35 | Outpatient (OUT) | payer OTHER, SELFPAY ==
--- NOTE | 2024-03-10 07:58 | P.CN_ITS ---
Consult Note: HPI Data of Consult Patient: known to practice within the last 3 years Requesting Physician: Riri Hastings NP Primary Care Provider: ANNA SMITH Consult Narrative Reason for consult: low back pain Narrative: Hair Santos a pleasant 48 year old male presents for evaluation and management of low back pain with radiculopathy referred by Dr Montgomery and team. Patient noticed significant pain with radiculopathy in May of 2023 and has advanced imaging as noted below. Patient would like to defer on surgical intervention at this time. Pain today 2/10 in low back, at worst 8-9/10. Denies loss of bowel/bladder. No falls. Patient finds benefit to tylenol otc. completed 6 weeks of PT without improvement. Recent right L3/4 TFESI providing moderate relief per pt in pain ongoing with NC. continues to have axial low back pain. recent bilateral L2/3 L3/4 MBb #1 provided significant improvement in pain and functional ability immediately following and the day of the procedure. preop pain up to 8-8/10 decreased to 1/10. Pt was able to walk through [employer] and do physical labor with minimal pain. utilizing meloxicam and baclofen with mild relief without side effects. cc:: CC: Riri Hastings NP Review of Systems ROS Status of ROS 10 or more systems reviewed and unremark able except as noted in history and below Musculoskeletal Reports: back pain; Denies: extremity pain [facility] Medical History (Updated 03/03/24 @ 11:06 by Riri Hastings NP) Neck pain ?M54.2 - Cervicalgia (ICD-10) Obesity ?E66.9 - Obesity, unspecified (ICD-10) Back pain ?M54.9 - Dorsalgia, unspecified (ICD-10) Anxiety ?F41.9 - Anxiety disorder, unspecified (ICD-10) Diabetes ?E11.9 - Type 2 diabetes mellitus without complications (ICD-10) Kidney stone ?N20.0 - Calculus of kidney (ICD-10) MARKO treated with BiPAP ?G47.33 - Obstructive sleep apnea (adult) (pediatric) (ICD-10) Sleep apnea ?G47.30 - Sleep apnea, unspecified (ICD-10) Asthma ?J45.909 - Unspecified asthma, uncomplicated (ICD-10) Angina at rest ?I20.89 - Other forms of angina pectoris (ICD-10) HTN (hypertension) ?I10 - Essential (primary) hypertension (ICD-10) Surgical History History of carpal tunnel release ?Z98.890 - Other specified postprocedural states (ICD-10) Meds Home Medications and Allergies Home Medications ?Medication ?Instructions ?Recorded ?Confirmed ?Type allopurinol 300 mg tablet 300 mg PO Q12H 10/24/22 03/08/24 History amlodipine 10 mg tablet 10 mg PO QDAY 10/24/22 03/08/24 History aspirin 81 mg tablet,delayed 81 mg PO QDAY 10/24/22 03/08/24 History release buspirone 10 mg tablet 10 mg PO QDAY 10/24/22 03/08/24 History carvedilol 25 mg tablet 25 mg PO Q12H 10/24/22 03/08/24 History losartan 100 1 tab PO QDAY 10/24/22 03/08/24 History mg-hydrochlorothiazide 25 mg tablet pravastatin 40 mg tablet 40 mg PO QDAY 10/24/22 03/08/24 History tizanidine 4 mg tablet 4 mg PO Q12H 10/24/22 03/08/24 History cyclobenzaprine 10 mg tablet 10 mg PO TID PRN muscle spasm #20 06/16/23 03/08/24 Rx tabs semaglutide 1 mg/dose (2 mg/1.5 1 mg subcut QWEEK 11/03/23 03/08/24 History mL) subcutaneous pen injector baclofen 10 mg tablet 10 mg PO TID PRN muscle spasm #90 03/03/24 03/08/24 Rx tabs meloxicam 7.5 mg tablet 7.5 mg PO BID PRN pain #60 tabs 03/03/24 03/08/24 Rx Allergies Allergy/AdvReac Type Severity Reaction Status Date / Time No Known Drug Allergies Allergy Verified 03/08/24 11:30 Exam Constitutional Documenting provider has reviewed patient's vital signs: yes Common normals: no apparent distress, oriented x3, healthy appearing, alert and well nourished General appearance: cooperative HENMT Common normals: normocephalic, hearing grossly normal bilaterally and moist oral mucous membranes Head and scalp: normocephalic Eye Common normals: PERRL Pupil: PERRL Neck & C-Spine Common normals: full ROM General: normal visual inspection Chest Common normals: inspection of chest normal Respiratory Common normals: normal respiratory effort, no retractions and no use of acce ssory muscles Back & Pelvis Lumbar spine/lower back: normal to inspection, lumbar ROM normal, pain with ROM and straight leg raise negative bilaterally Sacroiliac joints: SI joints normal Other: positive facet loading sensation intact BLE strength 5/5 in BLE Extremity Common normals: normal to inspection and full ROM Neuro Common normals: oriented x3, CN's II-XII intact bilaterally, moves all extremities, no focal motor deficits, no sensory deficits noted and deep tendon reflexes 2+ bilaterally Sensorium/orientation: alert Motor exam: strength 5/5 throughout and no movement abnormalities noted Psych Common normals: mental status grossly normal, thought process normal, ez ative, affect normal, speech normal and activity/motor behavior normal Speech: normal speech Thought process: normal thought process Results Additional Findings Additional findings: If on a controlled substance or opioids, I have checked an [place] report on this patient and there are no aberrancies noted in the prescribing history.??If on a controlled substance or opioid a drug screen was completed and reviewed within the last year, and if there has not been a drug screen completed we ordered one today to monitor higher risk, state monitored pain medication use. As part of providing excellent, safe, comprehensive care, the following was completed at our patient's visit: 1. A medication reconciliation and review to ensure accurate knowledge of current/active medications, including asking our patients to inform us about any [id number] medications or herbal remedies/nutritional supplements/alternative remedies. 2. A review to specifically ensure our patients have had annual screening for screening for depression, screening for tobacco use, and screening for unhealthy alcohol use. For concerning screenings had a discussion with the patient, provided patient education, and recommended follow-up with primary care provider when appropriate. If patient noted with a risk of falling, they received education on strength, gait, and balance training to prevent future risk of falling. Assessment and Plan Assessment and Plan (1) Lumbar spondylosis: (2) Lumbar stenosis with neurogenic claudication: (3) Myalgia, other site: Plan bilateral L2/3 L3/4 MBB x2 working towards RFA under fluoroscopy, risks vs benefits reviewed continue baclofen 10mg TID PRN pain/spasms, risks vs benefits reviewed stop otc NSAIDs, continue meloxicam 7.5mg BID PRN pain. risks vs benefits reviewed f/u after each injection
== END 2024-03-10 07:36 | disposition home or self-care (01) ==
PROVIDERS: Visit Provider Nurse Practitioner
DX: M47.816 Spondylosis without myelopathy or radiculopathy, lumbar region (principal); M48.062 Spinal stenosis, lumbar region with neurogenic claudication; M79.18 Myalgia, other site
CPT/HCPCS: G0463

== ENCOUNTER 2024-03-22 08:29 | Day surgery (SDC) | payer OTHER, SELFPAY ==
--- OUTSIDE RECORDS SUMMARY | 2024-03-22 08:43 | XMS_ITS | CCD ---
Author Organization [facility] Care Team Providers Care Manager Fire Name Role Phone Alexandra Gill Unavailable DimasAlexandra martínez Unavailable JUSTO Cannon Attending Provider [phone] Mamie Cannon Unavailable FAWWAD, YIN H Admitting [...] UnavailRichard Hunt MD Primary Care Provider Christopher OFFICE MESSENGER, Margarette Unavailable [phone] Maddie SIMS, Swapnil Cummins Attending Unavailable Maddie SIMS, Swapnil Cummins Attending Unavailable Maddie SIMS, Swapnil Cummins Attending Unavailable Medications Current Medications Medication Drug Class(es) Dates Sig (Normalized) Sig (Original) acetaminophen 325 mg / HYDROcodone bitartrate 5 mg oral tablet (7 sources) Opioid Agonist Start: 10-06-2023 take 1 tablet by mouth every six hours as needed HYDROcodone-aceta minophen ([place]) 5-325 MG tablet Take 1 tablet by mouth every 6 (six) hours if needed 10/06/2023 Active [id number] actuat albuterol 0.09 mg/actuat metered dose [...] Nov, Active allopurinol 300 mg oral tablet (7 sources) Xanthine Oxidase Inhibitor Start: 10-01-2023 take 1 tablet by mouth once daily allopurinol (Zyloprim) 300 MG tablet Indications: Hyperuricemia Take 1 tablet (300 mg) by mouth Daily 90 tablet 1 10/01/2023 Active amLODIPine 10 mg oral tablet (14 sources) Dihydropyridine Calcium Channel Ana Laura Start: 03-08-2024 take 1 tablet by mouth once daily amLODIPine (Norvasc) 10 MG tablet Indications: Essential hypertension (CMS/HCC) Take 1 tablet (10 mg) by mouth Daily 90 tablet 1 03/08/2024 Active Start: 03-08-2024 take 1 tablet by chintan th once daily amLODIPine (Norvasc) 10 MG tablet Indications: Essential hypertension (CMS/HCC) Take 1 tablet (10 mg) by mouth Daily 90 tablet 1 03/08/2024 Active Start: 10-01-2023 End: 03-08-2024 take 1 tablet by mouth once daily amLODIPine (Norvasc) 10 MG tablet Indications: Essential hypertension (CMS/HCC) Take 1 tablet (10 mg) by mouth Daily 90 tablet 1 10/01/2023 03/08/2024 Discontinued (Reorder) amLODIPine Besyl ate Active ASA (6 sources) ASA Active aspirin 81 mg delayed release oral tablet (7 sources) Platelet Aggregation Inhibitor, Nonsteroidal Anti-inflammatory Drug [...] Active busPIRone hydrochloride 10 mg oral tablet (7 sources) Start: 10-01-19 24 End: 03-29-19 25 take 1 tablet by mouth three times daily as needed for anxiety busPIRone (Buspar) 10 MG tablet Indications: JAN (generalized anxiety disorder) (CMS/HCC) Take 1 tablet (10 mg) by mouth 3 (three) times a day as needed (Anxiety) 270 tablet 1 10/01/2023 03/29/2024 Active carvedilol 25 mg oral tablet (7 sources) alpha-Adrenergic Ana Laura, beta-Adrenergic Ana Laura Start: 10-01-19 24 take 1 tablet by mouth twice daily at mealtime carvedilol (Coreg) 25 MG tablet Indications: Essential hypertension (CMS/HCC) Take 1 tablet by mouth twice daily. Must take with a meal or food. 180 tablet 1 10/01/2023 Active cephalexin 500 mg oral capsule (9 sources) Cephalosporin Antibacterial Start: 10-06-19 24 End: 12-30-19 24 take 1 capsule by mouth in the morning, then take 1 capsule by mouth in the evening, then take 1 capsule by mouth at bedtime cephalexin (Keflex) 500 MG capsule Take 500 mg by mouth in the morning and 500 mg in the evening and 500 mg before bedtime. 10/06/2023 12/30/2023 Discontinued (Therapy completed) Start: 10-10-2021 take 1 capsule by mo [facility] every twelve hours Cephalexin 500 MG 1 capsule Orally two times a day for 5 day(s) Sep, Active Start: 05-19-2021 take 1 tablet by chintan every twelve hours Cephalexin 500 MG 1 tablet Orally every 12 hrs for 10 day(s) Apr, Active Continuous Glucose Pie Crimping Machine Operator (Dexcom G7 Pie Crimping Machine Operator) device (4 sources) Start: 01-05-2024 Continuous Glucose Pie Crimping Machine Operator (Dexcom G7 Pie Crimping Machine Operator) device Indications: Type 2 diabetes mellitus without complication, without long-term current use of insulin (CMS/HCC) 1 each continuously 1 each 2 01/05/2024 Active Continuous Glucose Sensor (Dexcom G7 Sensor) misc (4 sources) Start: 01-05-2024 Continuous Glucose Sensor (Dexcom G7 Sensor) [facility] [place] Indications: Type 2 diabetes mellitus without complication, without long-term current use of insulin (CMS/HCC) 1 each continuously 3 each 1 01/05/2024 Active Continuous Glucose Sensor (FreeStyle Marlon 2 Sensor) misc (7 sources) Start: 09-22-2023 Continuous Glucose Sensor (FreeStyle Marlon 2 Sensor) [facility] [place] Indications: Type 2 diabetes mellitus without complication, [...] Nov, Active glipiZIDE 5 mg oral tablet (8 sources) Sulfonylurea Start: 10-01-2023 End: 09-04-2024 take 1 tablet by mouth in the morning glipiZIDE (Glucotrol) 5 MG tablet Indications: Type 2 diabetes mellitus without complication, without long-term current use of insulin (CMS/HCC) Take 1 tablet (5 mg) by mouth in the morning and 1 tablet (5 mg) in the evening. Take before meals. 180 tablet 1 03/08/2024 09/04/2024 Active hydroCHLOROthiazide 12.5 mg oral capsule (9 sources) Thiazide Diuretic End: 12-30-2023 take 1 capsule by mouth once daily hydroCHLOROthiazide (Microzide) 12.5 MG capsule Take 1 capsule by mouth Daily 12/30/2023 Discontinued (Duplicate order) hydroCHLOROthiaz yandy Active hydroCHLOROthiazide 25 mg / losartan potassium 100 mg oral tablet (7 sources) Thiazide Diuretic, Angiotensin 2 Receptor Ana [...] Nov, Active mupirocin 0.02 mg/mg topical ointment (8 sources) RNA Synthetase Inhibitor Antibacterial Start: 10-06-2023 mupirocin (Bactroban) 2 % ointment 10/06/2023 Active Start: 05-10-2021 Mupirocin 2 % 1 application Externally Three times a day for 7 days Apr, Active ofloxacin 3 mg/ml otic solution (7 sources) Quinolone Antimicrobial Start: 08-11-2023 ofloxacin (Floxin) 0.3 % otic solution instill 5 (FIVE) DROPS into the affected EAR TWICE DAILY FOR 7 DAYS 08/11/2023 Active pravastatin sodium 40 mg oral tablet (19 sources) HMG-CoA Reductase Inhibitor Start: 10-01-2023 take 1 tablet by mouth at bedtime pravastatin (Pravachol) 40 MG tablet Indications: Dyslipidemia ([facility]) Take 1 tablet (40 mg) by mouth at bedtime 90 tablet 1 10/01/2023 Active Pravastatin Acti ve Pravastatin Sodi um Active Semaglutide, 2 MG/DOSE, (Ozempic, 2 MG/DOSE,) 8 MG/3ML solution pen-injector (7 sources) Start: 01-26-2024 End: 04-25-2024 Semaglutide, 2 MG/DOSE, (Ozempic, 2 MG/DOSE,) 8 MG/3ML solution pen-injector Indications: Type 2 diabetes mellitus without complication, without long-term current use of insulin ([facility]) Inject 2 mg under the skin every 7 (seven) days 9 mL 1 01/26/2024 04/25/2024 Active Start: 10-01-2023 Semaglutide, 2 MG/DOSE, (Ozempic, 2 MG/DOSE,) 8 MG/3ML solution pen-injector Indications: Type 2 diabetes mellitus without complication, without long-term current use of insulin ([facility]) Inject 2 mg under the skin every 7 (seven) days 9 mL 1 10/01/2023 Active sertraline 50 mg oral tablet (14 sources) Serotonin Reuptake Inhibitor Start: 10-01-2023 End: 09-04-2024 take 1 tablet by mouth in the morning sertraline (Zoloft) 50 MG tablet Indications: JAN (generalized anxiety disorder) ([facility]) Take 1 tablet (50 mg) by mouth in the morning. 90 tablet 1 03/08/2024 09/04/2024 Active Zoloft Active spironolactone 25 mg oral tablet (7 sources) Aldosterone Antagonist Start: 10-01-2023 End: 03-29-2024 take 1 tablet by mouth once daily spironolactone (Aldactone) 25 MG tablet Indications: Essential hypertension ([facility]) Take 1 tablet (25 mg) by mouth Daily 90 tablet 1 10/01/2023 03/29/2024 Active tiZANidine 4 mg oral tablet (7 sources) Central alpha-2 Adrenergic Agonist Start: 10-01-2023 [...] QUADRANT PAIN] Onset: 07-24-2022 Episodic Anxiety disorders (15 sources) Mixed anxiety and depressive disorder; Translations: [Other specified anxiety disorders] Onset: 06-05-2023 06-05-2023 Chronic Diabetes mellitus without complication (17 sources) Type 2 diabetes mellitus without complications; Translations: [Type 2 diabetes mellitus without complication] Onset: 03-10-2022 Chronic Disorders of lipid metabolism (10 sources) Hyperlipidemia, unspecified; Translations: [Dyslipidemia] Onset: 03-09-2020 06-05-2023 Chronic Essential hypertension (15 sources) Essential (primary) hypertension; Translations: [Essential hypertension] Onset: 03-09-2020 Chronic Nausea and vomiting (6 sources) Nausea and vomiting; Translations: [Nausea with vomiting, unspecified] Episodic Other aftercare (1 source) [facility] (current) use of aspirin; Translations: [HALF-WAY CURRENT USE OF ASPIRIN] Onset: 07-29-2022 Episodic Other aftercare (1 source) Other [facility] (current) drug therapy; Translations: [OTH EAR NOSE THROAT SURGEON CURRENT DRUG THERAPY] Onset: 07-29-2022 Episodic Other ear and sense organ disorders (6 sources) Otitis externa; Translations: [Other otitis externa, bilateral] Chronic Other gastrointestinal disorders (12 sources) Diarrhea; Translations: [Diarrhea, unspecified] Episodic Other gastrointestinal disorders (8 sources) Stool DNA-based colorectal cancer screening positive; Translations: [Other fecal abnormalities] Onset: 12-30-2023 12-30-2023 Episodic Other gastrointestinal disorders (8 sources) Constipation; Translations: [Constipation, unspecified] Onset: 12-30-2023 12-30-2023 Episodic Other nervous system disorders (7 sources) Entrapment of right ulnar nerve; Translations: [Lesion of ulnar nerve, right upper limb] Onset: 10-01-2023 10-01-2023 Chronic Other nutritional; endocrine; and metabolic disorders (7 sources) Morbid obesity; Translations: [Morbid (severe) obesity due to excess calories] Onset: 03-09-2020 06-05-2023 Chronic Residual codes; unclassified (7 sources) Sleep apnea; Translations: [Sleep apnea, unspecified] Onset: 08-06-2019 06-05-2023 Chronic Spondylosis; intervertebral disc disorders; other back problems (1 source) Other intervertebral disc degeneration, lumbar region; Translations: [Other intervertebral disc degeneration, lumbar region] Onset: 06-23-2023 Chronic Unclassified (1 source) Low back pain, unspecified; Translations: [Low back pain, unspecified] Onset: 06-23-2023 Unclassified (1 source) Patient on antidepressant monitoring plan Onset: 03-08-2024 03-08-2024 Unclassified (1 source) Baseline PHQ-9 Onset: 03-08-2024 03-08-2024 Past or Other Problems Problem Classification Problem Date Documented Date Episodic/Chronic Genitourinary symptoms and ill-defined conditions (3 sources) Dysuria Onset: 10-10-2021 Resolved: 10-10-2021 Episodic Immunizations and screening for infectious disease (9 sources) Contact with and (suspected) exposure to other viral communicable diseases; Translations: [Methicillin resistant staphylococcus aureus positive] Onset: 02-19-2021 Resolved: 02-19-2021 Episodic Other nutritional; endocrine; and metabolic disorders (7 sources) Hyperuricemia; Translations: [Hyperuricemia without signs of inflammatory arthritis and tophaceous disease] Onset: 06-05-2023 06-05-2023 Episodic Other screening for suspected conditions (not mental disorders or infectious disease) (9 sources) Patient encounter status; Translations: [Encounter for screening for malignant neoplasm of colon] Onset: 06-05-2023 06-05-2023 Episodic Skin and subcutaneous tissue infections (1 source) Cellulitis of right toe Onset: 05-10-2021 Resolved: 05-10-2021 Episodic Spondylosis; intervertebral disc disorders; other back problems (7 sources) Acute back pain with sciatica; Translations: [Lumbago with sciatica, right side] Onset: 06-05-2023 06-05-2023 Episodic Urinary tract infections (3 sources) Urinary tract infection, site not specified Onset: 10-10-2021 Resolved: 10-10-2021 Episodic Viral infection (2 sources) COVID-19 Onset: 02-19-2021 Resolved: 02-19-2021 Results Test Name Value Interpretation Reference Range Facility AMYLASEon 07-25-2022 Amylase [Catalytic activity/Vol] 32 U/L Normal 25-115 [facility] Comment on above: Performed By: #### L IPA, JORDON, CMP #### [facility] [address] [place] [address] Dr. Brady Sanders CBC AUTO DIFFon 07-25-2022 BASO # 0.0 103/ul Normal 0.0-0.1 [facility] Comment on above: Performed By: #### C BC #### [facility] [address] [place] [address] Dr. Brady Sanders Basophils/100 WBC (Bld) 0.4 % Normal 0.2-2.0 [facility] Comment on above: Performed By: #### C BC #### [facility] [address] [place] [address] Dr. Brady Sanders EO # 0.1 103/ul Normal 0.0-0.7 [facility] Comment on above: Performed By: #### C BC #### [facility] [address] [place] [address] Dr. Brady Sanders Eosinophils/100 WBC (Bld) 1.5 % Normal 0.9-7.0 [facility] Comment on above: Performed By: #### C BC #### [facility] [address] [place] [address] Dr. Brady Sanders Erythrocyte distribution width (RBC) [Ratio] 13.2 % Normal 11.0-15.0 [facility] Comment on above: Performed By: #### C BC #### [facility] [address] [place] [address] Dr. Brady Sanders Hematocrit (Bld) [Volume fraction] 41.0 % Critically low 42.0-54.0 [facility] Comment on above: Performed By: #### C BC #### [facility] [address] [place] [address] Dr. Brady Sanders Hemoglobin (Bld) [Mass/Vol] 13.8 g/dL Critically low 14.0-18.0 [facility] Comment on above: Performed By: #### C BC #### [facility] [address] [place] [address] Dr. Brady Sanders IG # 0.03 10e3/ul Normal 0.00-0.03 [facility] Comment on above: Performed By: #### C BC #### [facility] [address] [place] [address] Dr. Brady Sanders IG % 0.4 % Normal 0.0-0.5 [facility] Comment on above: Performed By: #### C BC #### [facility] [address] [place] [address] Dr. Brady Sanders LYMPH # 1.8 103/ul Normal 1.2-3.8 [facility] Comment on above: Performed By: #### C BC #### [facility] [address] [place] [address] Dr. Brady Sanders Lymphocytes/100 WBC (Bld) 21.4 % Normal 20.5-60.0 [facility] Comment on above: Performed By: #### C BC #### [facility] [address] [place] [address] Dr. Brady Sanders MANUAL DIFF REQ NO Normal [facility] Comment on above: Performed By: #### C BC #### [facility] [address] [place] [address] Dr. Brady Sanders MCH (RBC) [Entitic mass] 28.1 pg Normal 25.9-34.0 [facility] Comment on above: Performed By: #### C BC #### [facility] [address] [place] [address] Dr. Brady Sanders MCHC (RBC) [Mass/Vol] 33.7 g/dL Normal 29.9-35.2 [facility] Comment on above: Performed By: #### C BC #### [facility] [address] [place] [address] Dr. Brady Sanders MCV (RBC) [Entitic vol] 83.5 fL Normal 80.0-94.0 [facility] Comment on above: Performed By: #### C BC #### [facility] [address] [place] [address] Dr. Brady Sanders MONO # 0.5 103/ul Normal 0.3-0.8 [facility] Comment on above: Performed By: #### C BC #### [facility] [address] [address] [address] Brady Sanders Monocytes/100 WBC (Bld) 6.2 % Normal 1.7-12.0 [facility] Comment on above: Performed By: #### C BC #### [facility] [address] [place] [address] Dr. Brady Sanders NEUT # 5.9 103/ul Normal 1.4-6.5 [facility] Comment on above: Performed By: #### C BC #### [facility] [address] [place] [address] Dr. Brady Sanders Neutrophils/100 WBC (Bld) 70.1 % Normal 43.0-75.0 [facility] Comment on above: Performed By: #### C BC #### [facility] [address] [place] [address] Dr. Brady Sanders Platelet mean volume (Bld) [Entitic vol] 9.6 fL Normal 9.5-13.5 [facility] Comment on above: Performed By: #### C BC #### [facility] [address] [place] [address] Dr. Brady Sanders PLT 216 103/ul Normal 150-450 [facility] Comment on above: Performed By: #### C BC #### [facility] [address] [place] [address] Dr. Brady Sanders RBC 4.91 106/ul Normal 4.70-6.10 [facility] Comment on above: Performed By: #### C BC #### [facility] [address] [place] [address] Dr. Brady Sanders WBC 8.4 103/ul Normal 4.0-11.0 [facility] Comment on above: Performed By: #### C BC #### [facility] [address] [address] [address] ABD/PELV W CONon [...] KAVIN BRIONES Date: 2022-07-25 10:58 Normal [facility] LIPASEon 07-25-2022 Lipase [Catalytic activity/Vol] 96.0 U/L Normal 73.0-393.0 [facility] Comment on above: Performed By: #### L JORDON GARRETT CMP #### [facility] [address], [place] [address] Dr. Brady Sanders PROF 14(COMP METB)on 023 Albumin [Mass/Vol] 3.4 g/dL Normal 3.4-5.0 [facility] Comment on above: Performed By: #### L JORDON GARRETT, CMP #### [facility] [address] [address] [address] Brady Sanders Albumin/Globulin [Mass ratio] 0.9 {ratio} Normal [facility] Comment on above: Performed By: #### L GERRY JORDON, CMP #### [facility] [address] [address] [address] Brady Sanders ALP [Catalytic activity/Vol] 88 U/L Normal 46-116 [facility] Comment on above: Performed By: #### L GERRY JORDON, CMP #### [facility] [address] [address] [address] Brady Sanders ALT [Catalytic activity/Vol] 27 U/L Normal 16-63 [facility] Comment on above: Performed By: #### L JORDON GARRETT, CMP #### [facility] [address] [address] [address] Brady Sanders Anion gap [Moles/Vol] 9.2 mmol/L Normal [facility] Comment on above: Performed By: #### L JORDON GARRETT, CMP #### [facility] [address] [address] [address] Brady Sanders AST [Catalytic activity/Vol] 18 U/L Normal 15-37 [facility] Comment on above: Performed By: #### L JORDON GARRETT, CMP #### [facility] [address] [address] [address] Brady Sanders Bilirubin [Mass/Vol] 0.4 mg/dL Normal 0.2-1.0 [facility] Comment on above: Performed By: #### L GERRY JORDON, CMP #### [facility] [address] [address] [address] Brady Sanders Calcium [Mass/Vol] 8.5 mg/dL Normal 8.5-10.1 [facility] Comment on above: Performed By: #### L GERRY JORDON, CMP #### [facility] [address] [address] [address] Brady Sanders Chloride [Moles/Vol] 103 mmol/L Normal 98-107 [facility] Comment on above: Performed By: #### L GERRY JORDON, CMP #### [facility] [address] [address] [address] Brady Sanders CO2 [Moles/Vol] 31.1 mmol/L Normal 21.0-32.0 [facility] Comment on above: Performed By: #### L IPA, JORDON, CMP #### [facility] [address] [address] [address] Brady Sanders Creatinine [Mass/Vol] 0.79 mg/dL Normal 0.70-1.30 [facility] Comment on above: Performed By: #### L IPA JORDON, CMP #### [facility] [address] [address] [address] Brady Sanders EGFR-AF UZBEK >60 Normal >=60 [facility] Comment on above: Performed By: #### L GERRY JORDON, CMP #### [facility] [address] [address] [address] Brady Sanders EGFR-NON AF UZBEK >60 Normal >=60 [facility] Comment on above: Performed By: #### L GERRY JORDON, CMP #### [facility] [address] [address] [address] Brady Sanders Globulin (S) [Mass/Vol] 3.8 g/dL Normal [facility] Comment on above: Performed By: #### L GERRY JORDON, CMP #### [facility] [address] [address] [address] Brady Sanders Glucose [Mass/Vol] 140 mg/dL Critically high 74-106 [facility] Comment on above: Performed By: #### L GERRY JORDON, CMP #### [facility] [address] [address] [address] Brady Sanders Potassium [Moles/Vol] 3.3 mmol/L Critically low 3.5-5.1 [facility] Comment on above: Performed By: #### L GERRY JORDON, CMP #### [facility] [address] [address] [address] Brady Sanders Protein [Mass/Vol] 7.2 g/dL Normal 6.4-8.2 [facility] Comment on above: Performed By: #### L IPA, JORDON, CMP #### [facility] [address] [address] [address] Brady Sanders Sodium [Moles/Vol] 140 mmol/L Normal 136-145 [facility] Comment on above: Performed By: #### L IPA, JORDON, CMP #### [facility] [address] [address] [address] Brady Sanders Urea nitrogen [Mass/Vol] 10.0 mg/dL Normal 7.0-18.0 [facility] Comment on above: Performed By: #### L IPA, JORDON, CMP #### [facility] [address] [address] [address] Brady Sanders Urea nitrogen/Creatinine [Mass ratio] 12.7 mg/mg Normal [facility] Comment on above: Performed By: #### L IPA, JORDON, CMP #### [facility] [address] [address] [address] Brady Sanders NM HEPATOBILIARY SCAN W EFon 07-24-2022 NM HEPATOBILIARY SCAN W EF HIDA SCAN WITH GALLBLADDER EJECTION FRACTION HISTORY: Abdominal Pain. COMPARISON: Ultrasound 07/11/2022. METHOD: Following IV injection of 5. mCi of [id number] , anterior imaging of the abdomen was [...] KIM JARRETT Date: 2022-07-24 09:14 Normal [facility] US SINGLE QUAD RT UPPERon US [...] by: MIKAYLA COVINGTON Date: 2022-07-11 11:55 Normal [facility] GLYCOHEMOGLOBIN A1Con 2022 ADA RECOMMENDATION SEE BELOW Normal [facility] Comment on above: Result Comment: ADA RECOMMENDED LIMIT 4.0 - 6.0 ADA THERAPEUTIC TARGET < 7.0 ACTION SUGGESTED > 7.0 Performed By: #### A 1C #### [facility] [address] [address] [address] Brady Sanders Glucose [Mass/Vol] 143 mg/dL Normal [facility] Comment on above: Performed By: #### A 1C #### [facility] [address] [address] [address] Brady Sanders HbA1c (Bld) [Mass fraction] 6.6 % Critically high 4.5-6.2 [facility] Comment on above: Performed By: #### A 1C #### [facility] [address] [address] [address] Brady Sanders COVID + FLU Quick Testingon 03-13-2022 SARS-CoV-2 (COVID-19) RNA ADELINA+probe Ql (Unsp spec) Positive [facility] Other COVID + FLU Quick Testing Negative [facility] Other CBC AUTO DIFFon 03-07-2022 BASO # 0.0 103/ul Normal 0.0-0.1 [facility] Comment on above: Performed By: #### C BC #### [facility] [address] [address] [address] Brady Sanders Basophils/100 WBC (Bld) 0.5 % Normal 0.2-2.0 [facility] Comment on above: Performed By: #### C BC #### [facility] [address] [place] [address] Dr. Brady Sanders EO # 0.1 103/ul Normal 0.0-0.7 [facility] Comment on above: Performed By: #### C BC #### [facility] [address] [place] [address] Dr. Brady Sanders Eosinophils/100 WBC (Bld) 1.8 % Normal 0.9-7.0 [facility] Comment on above: Performed By: #### C BC #### [facility] [address] [place] [address] Dr. Brady Sanders Erythrocyte distribution width (RBC) [Ratio] 13.5 % Normal 11.0-15.0 [facility] Comment on above: Performed By: #### C BC #### [facility] [address] [place] [address] Dr. Brady Sanders Hematocrit (Bld) [Volume fraction] 46.5 % Normal 42.0-54.0 [facility] Comment on above: Performed By: #### C BC #### [facility] [address] [place] [address] Dr. Brady Sanders Hemoglobin (Bld) [Mass/Vol] 15.6 g/dL Normal 14.0-18.0 [facility] Comment on above: Performed By: #### C BC #### [facility] [address] [place] [address] Dr. Brady Sanders IG # 0.02 10e3/ul Normal 0.00-0.03 [facility] Comment on above: Performed By: #### C BC #### [facility] [address] [place] [address] Dr. Brady Sanders IG % 0.3 % Normal 0.0-0.5 [facility] Comment on above: Performed By: #### C BC #### [facility] [address] [place] [address] Dr. Brady Sanders LYMPH # 1.8 103/ul Normal 1.2-3.8 [facility] Comment on above: Performed By: #### C BC #### [facility] [address] [place] [address] Dr. Brady Sanders Lymphocytes/100 WBC (Bld) 22.3 % Normal 20.5-60.0 [facility] Comment on above: Performed By: #### C BC #### [facility] [address] [place] [address] Dr. Brady Sanders MANUAL DIFF REQ NO Normal [facility] Comment on above: Performed By: #### C BC #### [facility] [address] [place] [address] Dr. Brady Sanders MCH (RBC) [Entitic mass] 28.0 pg Normal 25.9-34.0 [facility] Comment on above: Performed By: #### C BC #### [facility] [address] [place] [address] Dr. Brady Sanders MCHC (RBC) [Mass/Vol] 33.5 g/dL Normal 29.9-35.2 [facility] Comment on above: Performed By: #### C BC #### [facility] [address] [place] [address] Dr. Brady Sanders MCV (RBC) [Entitic vol] 83.3 fL Normal 80.0-94.0 [facility] Comment on above: Performed By: #### C BC #### [facility] [address] [place] [address] Dr. Brady Sanders MONO # 0.5 103/ul Normal 0.3-0.8 [facility] Comment on above: Performed By: #### C BC #### [facility] [address] [place] [address] Dr. Brady Sanders Monocytes/100 WBC (Bld) 6.1 % Normal 1.7-12.0 [facility] Comment on above: Performed By: #### C BC #### [facility] [address] [place] [address] Dr. Brady Sanders NEUT # 5.4 103/ul Normal 1.4-6.5 [facility] Comment on above: Performed By: #### C BC #### [facility] [address] [address] [address] Brady Sanders Neutrophils/100 WBC (Bld) 69.0 % Normal 43.0-75.0 [facility] Comment on above: Performed By: #### C BC #### [facility] [address] [address] [address] Brady Sanders Platelet mean volume (Bld) [Entitic vol] 10.3 fL Normal 9.5-13.5 [facility] Comment on above: Performed By: #### C BC #### [facility] [address] [address] [address] Brady Sanders PLT 230 103/ul Normal 150-450 [facility] Comment on above: Performed By: #### C BC #### [facility] [address] [place] [address] Dr. Brady Sanders RBC 5.58 106/ul Normal 4.70-6.10 [facility] Comment on above: Performed By: #### C BC #### [facility] [address] [place] [address] Dr. Brady Sanders WBC 7.9 103/ul Normal 4.0-11.0 [facility] Comment on above: Performed By: #### C BC #### [facility] [address] [place] [address] Dr. Brady Sanders GLYCOHEMOGLOBIN A1Con 2021 ADA RECOMMENDATION SEE BELOW Normal [facility] Comment on above: Result Comment: ADA RECOMMENDED LIMIT 4.0 - 6.0 ADA THERAPEUTIC TARGET < 7.0 ACTION SUGGESTED > 7.0 Performed By: #### A 1C #### [facility] [address] [place] [address] Dr. Brady Sanders Glucose [Mass/Vol] 200 mg/dL Normal [facility] Comment on above: Performed By: #### A 1C #### [facility] [address] [place] [address] Dr. Brady Sanders HbA1c (Bld) [Mass fraction] 8.6 % Critically high 4.5-6.2 [facility] Comment on above: Performed By: #### A 1C #### [facility] [address] [address] [address] Brady Sanders LIPID PROFILEon 03-07-2022 CHOL-HDL RATIO NORM SEE BELOW Normal [facility] Comment on above: Result Comment: 3.3 - 4.4 LOW RISK 4.4 - 7.1 AVERAGE RISK 7.1 - 11.0 MODERATE RISK >11.0 HIGH RISK Performed By: #### L JORDON GARRETT, CMP #### [facility] [address] [address] [address] Brady Sanders Cholesterol [Mass/Vol] 136 mg/dL Normal <=200 [facility] Comment on above: Performed By: #### L JORDON GARRETT, CMP #### [facility] [address] [address] [address] Brady Sanders Cholesterol in HDL [Mass/Vol] 26 mg/dL Critically low 40-60 [facility] Comment on above: Performed By: #### L JORDON GARRETT, CMP #### [facility] [address] [address] [address] Brady Sanders Cholesterol in LDL [Mass/Vol] 77.2 mg/dL Normal [facility] Comment on above: Performed By: #### L JORDON GARRETT, CMP #### [facility] [address] [address] [address] Brady Sanders Cholesterol.total/C holesterol in HDL [Mass ratio] 5.2 {ratio} Normal [facility] Comment on above: Performed By: #### L JORDON GARRETT, CMP #### [facility] [address] [address] [address] Brady Sanders HDL NORMAL > or = 60 mg/dl - LO W CARDIOVASCULAR RISK <40 mg/dl - HIGH CARDIOVASCULAR RISK Normal [facility] Comment on above: Performed By: #### L JORDON GARRETT, CMP #### [facility] [address] [address] [address] Brady Sanders LDL CALC NORMAL SEE BELOW Normal [facility] Comment on above: Result Comment: <100 mg/dl OPTIMAL 100 - 129 mg/dl NEAR OR ABOVE OPTIMAL 130 - 159 mg/dl BORDERLINE HIGH 160 - 189 mg/dl HIGH >190 mg/dl VERY HIGH Performed By: #### L JORDON GARRETT, CMP #### [facility] [address] [place] [address] Dr. Brady Sanders Triglyceride [Mass/Vol] 164 mg/dL Critically high <=150 [facility] Comment on above: Performed By: #### L GERRY JORDON, CMP #### [facility] [address] [place] [address] Dr. Brady Sanders VLDL CALC 32.8 mg/dL Normal [facility] Comment on above: Performed By: #### L JORDON GARRETT, CMP #### [facility] [address] [place] [address] Dr. Brady Sanders MICROALBUMIN, RAND URon 02-21 mALB <1.3 Normal <=30.0 [facility] Comment on above: Performed By: #### L JORDON GARRETT, CMP #### [facility] [address] [place] [address] Dr. Brady Sanders PROF 14(COMP METB)on 03-07- 022 Albumin [Mass/Vol] 3.8 g/dL Normal 3.4-5.0 [facility] Comment on above: Performed By: #### L JORDON GARRETT, CMP #### [facility] [address] [place] [address] Dr. Brady Sanders Albumin/Globulin [Mass ratio] 1.0 {ratio} Normal [facility] Comment on above: Performed By: #### L JORDON GARRETT, CMP #### [facility] [address] [place] [address] Dr. Brady Sanders ALP [Catalytic activity/Vol] 102 U/L Normal 46-116 [facility] Comment on above: Performed By: #### L JORDON GARRETT, CMP #### [facility] [address] [place] [address] Dr. Brady Sanders ALT [Catalytic activity/Vol] 41 U/L Normal 16-63 [facility] Comment on above: Performed By: #### L JORDON GARRETT, CMP #### [facility] [address] [address] [address] Brady Sanders Anion gap [Moles/Vol] 14.7 mmol/L Normal [facility] Comment on above: Performed By: #### L JORDON GARRETT, CMP #### [facility] [address] [place] [address] Dr. Brady Sanders AST [Catalytic activity/Vol] 24 U/L Normal 15-37 [facility] Comment on above: Performed By: #### L JORDON GARRETT, CMP #### [facility] [address] [place] [address] Dr. Brady Sanders Bilirubin [Mass/Vol] 0.4 mg/dL Normal 0.2-1.0 [facility] Comment on above: Performed By: #### L JORDON GARRETT, CMP #### [facility] [address] [place] [address] Dr. Brady Sanders Calcium [Mass/Vol] 8.8 mg/dL Normal 8.5-10.1 [facility] Comment on above: Performed By: #### L JORDON GARRETT, CMP #### [facility] [address] [place] [address] Dr. Brady Sanders Chloride [Moles/Vol] 99 mmol/L Normal 98-107 [facility] Comment on above: Performed By: #### L JORDON GARRETT, CMP #### [facility] [address] [place] [address] Dr. Brady Sanders CO2 [Moles/Vol] 26.8 mmol/L Normal 21.0-32.0 [facility] Comment on above: Performed By: #### L JORDON GARRETT, CMP #### [facility] [address] [place] [address] Dr. Brady Sanders Creatinine [Mass/Vol] 1.00 mg/dL Normal 0.70-1.30 [facility] Comment on above: Performed By: #### L JORDON GARRETT, CMP #### [facility] [address] [place] [address] Dr. Brady Sanders EGFR-AF UZBEK >60 Normal >=60 [facility] Comment on above: Performed By: #### L JORDON GARRETT, CMP #### [facility] [address] [address] [address] Brady Sanders EGFR-NON AF UZBEK >60 Normal >=60 [facility] Comment on above: Performed By: #### L JORDON GARRETT, CMP #### [facility] [address] [address] [address] Brady Sanders Globulin (S) [Mass/Vol] 3.7 g/dL Normal [facility] Comment on above: Performed By: #### L JORDON GARRETT, CMP #### [facility] [address] [address] [address] Brady Sanders Glucose [Mass/Vol] 317 mg/dL Critically high 74-106 [facility] Comment on above: Performed By: #### L JORDON GARRETT, CMP #### [facility] [address] [place] [address] Dr. Brady Sanders Potassium [Moles/Vol] 3.5 mmol/L Normal 3.5-5.1 [facility] Comment on above: Performed By: #### L JORDON GARRETT, CMP #### [facility] [address] [address] [address] Brady Sanders Protein [Mass/Vol] 7.5 g/dL Normal 6.4-8.2 [facility] Comment on above: Performed By: #### L JORDON GARRETT, CMP #### [facility] [address] [address] [address] Brady Sanders Sodium [Moles/Vol] 137 mmol/L Normal 136-145 [facility] Comment on above: Performed By: #### L JORDON GARRETT, CMP #### [facility] [address] [address] [address] Brady Sanders Urea nitrogen [Mass/Vol] 11.0 mg/dL Normal 7.0-18.0 [facility] Comment on above: Performed By: #### L JORDON GARRETT, CMP #### [facility] [address] [address] [address] Brady Sanders Urea nitrogen/Creatinine [Mass ratio] 11.0 mg/mg Normal [facility] Comment on above: Performed By: #### L JORDON GARRETT, CMP #### [facility] [address] [address] [address] Brady Sanders Urinalysis - AUTOMATEDon Appearance (U) clear [employer] Other Bilirubin Ql (U) Negative [employer] Other Color (U) medium tellow [facility] Other Glucose Ql (U) >1000 [employer] Other Hemoglobin Ql (U) trace [employer] Other Ketones Ql (U) Negative [employer] Other Leukocyte esterase Test strip Ql (U) trace [facility] Other Nitrite Ql (U) Negative [employer] Other pH (U) 5.5 [pH] [facility] Other Protein Ql (U) Negative [employer] Other Specific gravity (U) [Rel density] 1.015 [facility] Other Urobilinogen (U) [Mass/Vol] 0.2 mg/dL [facility] Other Urinalysis - AUTOMATED [facility] Other Urine Cultureon 10-10-2021 Bacteria identified Cx Nom (U) Reason for Exam Dysuria Urine >100,000 colonies/ml mixed bacterial skin contaminants 2 Days PERFORMED BY: [address] [id number] PATHOLOGIST [employer]STRUCTION [employer]PER TIA CORDOVA M.D. Normal [facility] Comment on above: Performed By: #### C UU #### [address] Bacteria identified Cx Nom (U) [facility] Other Quick Fluon 11-89-2021 FLUAV Ab CF (S) [Titer] Negative [facility] Other FLUBV Ab CF (S) [Titer] Negative [facility] Other Vital Signs Date Time Vital Sign Value Performing Clinician Armaan santana 12-30-2023 09:07-0400 Body mass index (BMI) [Ratio] 42.35 kg/m2 Margarette Rojaspatrick OFFICE MESSENGER Work Phone: [facility] 12-30-2023 09:07-0400 Body temperature 97.3 [degF] Margarette Rojaspatrick OFFICE MESSENGER Work Phone: [facility] 12-30-2023 09:07-0400 Body weight 145.6 kg Margarette Rojaspatrick OFFICE MESSENGER Work Phone: [facility] 12-30-2023 09:07-0400 Diastolic blood pressure 62 mm[Hg] Margarette Esteszpatrick OFFICE MESSENGER Work Phone: [facility] 12-30-2023 09:07-0400 Heart rate 85 /min Margarette Rojaspatrick OFFICE MESSENGER Work Phone: [facility] 12-30-2023 09:07-0400 SaO2% (BldA) [Mass fraction] 95 % Margarette Esteszpatrick OFFICE MESSENGER Work Phone: [facility] 12-30-2023 09:07-0400 Systolic blood pressure 112 mm[Hg] Margarette Esteszpatrick OFFICE MESSENGER Work Phone: [facility] 03-13-2022 18:15-0500 Body height 182.88 cm Mamie Cannon Other [facility] Other 03-13-2022 18:15-0500 Body mass index (BMI) [Ratio] 47.46 kg/m2 Mamie Cannon Other [facility] Other 03-13-2022 18:15-0500 Body temperature 98 [degF] Mamie Kassandra Other [facility] Other 03-13-2022 18:15-0500 Body weight 158.76 kg Mamie Kassandra Other [facility] Other 03-13-2022 18:15-0500 Respiratory rate 18 /min Mamie Kassandra Other [facility] Other 03-13-2022 18:15-0500 SaO2% (BldA) [Mass fraction] 94 % Mamie Kassandra Other [facility] Other 10-10-2021 10:30-0400 Body height 182.88 cm Mamie Kassandra Other [facility] Other 10-10-2021 10:30-0400 Body mass index (BMI) [Ratio] 46.11 kg/m2 Mamie Kassandra Other [facility] Other 10-10-2021 10:30-0400 Body temperature 98.1 [degF] Mamie Kassandra Other [facility] Other 10-10-2021 10:30-0400 Body weight 154.22 kg Mamie Kassandra Other [facility] Other 10-10-2021 10:30-0400 Diastolic blood pressure 95 mm[Hg] Mamie Kassandra Other [facility] Other 10-10-2021 10:30-0400 Respiratory rate 20 /min Mamie Kassandra Other [facility] Other 10-10-2021 10:30-0400 SaO2% (BldA) [Mass fraction] 98 % Mamie Cannon Other [facility] Other 10-10-2021 10:30-0400 Systolic blood pressure 158 mm[Hg] Mamie Cannon Other [facility] Other 05-10-2021 10:00-0500 Body height 182.88 cm Alexandra Dimas Other [facility] Other 05-10-2021 10:00-0500 Body mass index (BMI) [Ratio] 49.28 kg/m2 Alexandra Dimas Other [facility] Other 05-10-2021 10:00-0500 Body temperature 96.4 [degF] Alexandra Dimas Other [facility] Other 05-10-2021 10:00-0500 Body weight 164.84 kg Alexandra Dimas Other [facility] Other 05-10-2021 10:00-0500 Diastolic blood pressure 84 mm[Hg] Alexandra Dimas Other [facility] Other 05-10-2021 10:00-0500 Respiratory rate 18 /min Alexandra Dimas Other [facility] Other 05-10-2021 10:00-0500 SaO2% (BldA) [Mass fraction] 96 % Alexandra Dimas Other [facility] Other 05-10-2021 10:00-0500 Systolic blood pressure 147 mm[Hg] Alexandra Dimas Other [facility] Other 02-19-2021 10:00-0500 Body height 182.88 cm Alexandra Ginty Other [facility] Other 02-19-2021 10:00-0500 Body mass index (BMI) [Ratio] 48.82 kg/m2 Alexandra Ginty Other [facility] Other 02-19-2021 10:00-0500 Body temperature 96.4 [degF] Alexandra Ginty Other [facility] Other 02-19-2021 10:00-0500 Body weight 163.3 kg Alexandra Ginty Other [facility] Other 02-19-2021 10:00-0500 SaO2% (BldA) [Mass fraction] 95 % Alexandra Ginty Other [facility] Other Encounters Encounter Date Encounter Type Care Provider Facility Start: 03-08-2024 End: 03-08-2024 Refill Margarette White OFFICE MESSENGER Work Phone: [facility] Comment on above: Essential hypertensi on ([facility]) Type 2 diabetes cassy itus without complication, without long-term current use of insulin ([facility]); JAN (generalized anxiety disorder) ([facility]) Start: 03-08-2024 End: 03-08-2024 [facility]ulatory [facility] Start: 02-23-2024 End: 02-23-2024 ambulatory Swapnil Perkins MD Facility:[facility] Start: 01-20-2024 End: 01-26-2024 Refill Akosua Ramos MA [facility] Comment on above: Type 2 diabetes cassy itus without complication, without long- term current use of insulin ([facility]) Start: 01-05-2024 End: 01-05-2024 Orders Only Margarette White OFFICE MESSENGER Work Phone: [facility] Comment on above: Type 2 diabetes cassy itus without complication, without long- term current use of insulin (CMS/HCC) (Primary Dx) Start: 12-30-2023 End: 12-30-2023 Bamboo flowsheet Margarette Esteszpatrick OFFICE MESSENGER Work Phone: [facility] Start: 12-30-2023 End: 12-30-2023 Bamboo flowsheet Margarette Esteszpatrick OFFICE MESSENGER Work Phone: [facility] Start: 12-30-2023 End: 12-30-2023 Office outpatient visit 15 minutes Margarette White OFFICE MESSENGER Work Phone: [facility] Comment on above: Type 2 diabetes cassy itus without complication, without long- term current use of insulin (CMS/HCC) (Primary Dx); Dyslipidemia (CMS/HCC); Essential hypertension (CMS/HCC); Positive colorectal cancer screening using Cologuard test; Screening for colon cancer; Constipation, unspecified constipation type Start: 12-30-2023 End: 12-30-2023 ambulatory MARGARETTE WHITE Not Available Start: 11-03-2023 End: 11-03-2023 ambulatory Swapnil Perkins MD Facility:[facility] Start: 10-01-2023 Preoperative state Margarette murphy OFFICE MESSENGER Work Phone: [facility] Start: 10-01-2023 End: 10-01-2023 ambulatory SHAIKH ALIZE Not Available Start: 08-04-2023 End: 08-04-2023 ambulatory JEANNE LUCIANO Not Available Start: 07-31-2023 End: 07-31-2023 ambulatory YIN FAJONA Not Available Start: 07-24-2023 End: 08-23-2023 ambulatory [facility] Start: 07-14-2023 End: 07-14-2023 ambulatory SHAIKH ALIZE Not Available Start: 06-24-2023 End: 06-24-2023 ambulatory YIN FAWWAD Not Available Start: 06-23-2023 End: 07-23-2023 ambulatory MIKAYLA [facility] Start: 06-05-2023 Patient encounter procedure Margarette White OFFICE MESSENGER Work Phone: [facility] Start: 06-05-2023 End: 06-05-2023 ambulatory YIN FAWWAD Not Available Start: 07-25-2022 End: 07-25-[address] GILBERT GARCIA . Facility:[facility] Start: 07-24-2022 End: 07-25-2022 ambulatory YIN H FAWWAD Facility:[facility] Start: 07-11-2022 End: 07-12-2022 ambulatory YIN H FAWWAD Facility:[facility] Start: 06-03-2022 End: 06-04-2022 ambulatory YIN H FAWWAD Facility:[facility] Start: 03-13-2022 End: 03-13-2022 ambulatory Mamie Cannon Other [facility] Other Start: 03-13-2022 Office outpatient vi sit 15 minutes Mamie Kassandra [facility] Start: 03-07-2022 End: 03-08-2022 ambulatory YIN H FAWWAD Facility:[facility] Start: 10-10-2021 End: 10-10-2021 ambulatory Mamiehumphrey Cannon Other [facility] Other Start: 10-10-2021 Office outpatient vi sit 15 minutes Mamie Kassandra [facility] Start: 10-10-2021 End: 10-10-2021 Departed Referred OFFICE MESSENGER-C Mamie Cannon Work Phone: [facility] [place] Start: 05-10-2021 End: 05-10-2021 ambulatory Alexandra Dimas Other [facility] Other Start: 05-10-2021 Office outpatient vi sit 15 minutes Alexandra Dimas [facility] Start: 02-19-2021 End: 02-19-2021 ambulatory Alexandra Gill Other [facility] Other Start: 02-19-2021 Office outpatient vi sit 15 minutes Alexandra Ferreiradelfinasusan [facility] Plan of Treatment Date Care Activity Detail Author Start: 06-17-2026 Screening for malign ant neoplasm of colon [facility] Start: 01-22-2025 Glaucoma screening Diabetes: R etinopathy Screening [facility] Start: 07-07-2024 Urine screening for protein Diabetes: Urine Protein Screening [facility] Start: 06-29-2024 End: 06-29-2024 Patient encounter procedure 06/29/2024 9:30 AM EDT Office Visit [facility] [address] [place] [id number] Margarette White NP [address] [place] [phone] [facility] Start: 03-24-2024 Hemoglobin A1c measurement Diabetes: Hemoglobin A1C [facility] Start: 12-30-2023 End: 12-29-2024 Hemoglobin A1c/Hemoglobin.total in Blood Hemoglobin A1c Lab Routine Type 2 diabetes mellitus without complication, without long-term current use of insulin ([facility]) Expected: 12/30/2023 (Approximate), Expires: 12/29/2024 [facility] Work Phone: Comment on above: Expected: 12/30/2023 (Approximate), Expires: 12/29/2024 Start: 12-30-2023 End: 12-30-2023 Patient encounter procedure 12/30/2023 9:00 AM EDT Office Visit [facility] [address] [place] [phone] Margarette White NP [address] [place] [phone] Arrived [facility] Comment on above: Arrived Start: 11-23-2023 Influenza vaccination Influenza Vacc ine (#1) [facility] Start: 1975 Screening for malign ant neoplasm of colon [facility] Bacteria identified in Urine by Culture [facility] Immunizations Immunization Date Immunization Notes Care Provider Olga bedolla 01-16-2021 influenza, injectabl e, quadrivalent, preservative free Margarette White OFFICE MESSENGER Work Phone: [facility] 01-16-2021 influenza virus vaccine, unspecified formulation Margarette White OFFICE MESSENGER Work Phone: [facility] 02-06-2020 influenza, injectabl e, quadrivalent, contains preservative Margarette White OFFICE MESSENGER Work Phone: [facility] 02-21-2019 Influenza, injectabl e, [place]in [place] Canine Kidney, preservative free, quadrivalent Margarette White OFFICE MESSENGER Work Phone: [facility] 01-02-2017 influenza, seasonal, injectable Margarette White OFFICE MESSENGER Work Phone: [facility] 12-26-2015 influenza, seasonal, injectable, preservative free Margarette White OFFICE MESSENGER Work Phone: [facility] 01-04-2015 influenza, seasonal, injectable, preservative free Margarette White OFFICE MESSENGER Work Phone: [facility] 12-30-2013 influenza, seasonal, injectable Margarette White OFFICE MESSENGER Work Phone: [facility] 01-07-2013 influenza, seasonal, injectable Margarette White OFFICE MESSENGER Work Phone: [facility] Payers Date Payer Category Payer Private Health Insurance [id number] 1973 Unknown [id number] 1973 Unknown [id number] 2.16.840.1.990266.3.579.2.593 1973 Unknown [id number] 2.16.840.1.843670.3.579.2.593 1973 Unknown [id number] 2.16.840.1.391917.3.579.2.593 1973 Unknown [id number] 2.16.840.1.706714.3.579.2.593 1973 Unknown [id number] 2.16.840.1.504017.3.579.2.1286 1973 Unknown [id number] 2.16.840.1.553228.3.579.2.1286 1973 Unknown [id number] 2.16.840.1.580503.3.579.2.1259 1973 Unknown [id number] 2.16.840.1.724795.3.579.2.1259 1973 Unknown [id number] 2.16.840.1.986101.3.579.2.1259 1973 Unknown [id number] 2.16.840.1.740031.3.579.2.1259 1973 Unknown [id number] 2.16.840.1.975441.3.579.2.1259 1973 Unknown [id number] 2.16.840.1.741623.3.579.2.1259 1973 Unknown [id number] 2.16.840.1.447791.3.579.2.1259 1973 Unknown [id number] 2.16.840.1.871757.3.579.2.196 1973 Unknown [id number] 2.16.840.1.892682.3.579.2.196 1973 Unknown [id number] 2.16.840.1.534563.3.579.2.196 1959 Unknown [id number] 2.16.8 [id number] Self-pay Self Pay [id number] Unknown Susan BC/JM [id number] Social History Date Type Detail Facility Unknown if ever smoked [facility] Start: 10-01-2023 End: 12-23-2023 Sex Assigned At [facility] Start: 1975 Sex Assigned At Male [facility] Start: 06-05-2023 Tobacco smoking stat [facility] Never smoked tobacco [facility] Start: 06-05-2023 [...] to any clubs or organizations such as sikhism groups, unions, fraternal or athletic groups, or [...] the mortgage or rent on time? Yes [facility] Start: 1975 Sex assigned at Not on file [facility] NEGATED: Highlighted rowStart: SHARON History of tobacco use Passive smoker [facility] Goals Date Patient Goal Desired Activity /State Personal health goal Clinical Notes 02-19-2021 to 01-20-2024 Telephone Encounter - Akosua Ramos MA - 01/20/2024 2:37 PM EDTTelephone Encounter - Akosua Ramos MA - 01/20/2024 2:37 PM EDTBvito White NP - 12/30/2023 11:59 AM EDTPatient Instructions Note Date & Type Note Facility 01-20-2024 Telephone encount er Note The prior auth for the dexcom was denied because he is not currently using insulin. [facility] 01-20-2024 Miscellaneous Notes Formattin g of this note might be different from the original. The prior auth for the dexcom was denied because he is not currently using insulin. documented in this encounter [facility] 12-30-2023 History of Presen t illness [...] ALBUMIN GLOBULIN RATIO 1.1 Resulting Agency [facility] DMII: Currently taking Glipizide 5mg BID Ozempic [...] Problem List Items Addressed This Visit Dyslipidemia ([facility]) Currently taking Pravastatin 40mg Denies any myalgias. Most recent Lipid Panel done 5 months ago- WNL Continue current regimen. Essential hypertension ([facility]) Currently taking losartan-hydrochlorothiazide 100-25 Amlodipine 10mg Carvedilol 25mg Does not check BP at home; Denies orthostatic changes, dizziness, cough, shortness of breath, swelling in extremities. Continue current regimen. Given BP log, advised pt to record BP and bring log back with them to next visit. Type 2 diabetes mellitus without complication, without long-term current use of insulin ([facility]) - Primary Currently taking Glipizide 5mg BID [...] do not improve. documented in this encounter [facility] 12-30-2023 Instructions Margarette White NP - 12/30/2023 9:00 AM EDT Referral sent to GI for colonoscopy- they will call you. If you don't hear from them in 2 weeks, call my office! Have A1C completed. Try taking miralax to help ease constipation. Call if stomach cramping doesn't subside. documented in this encounter [facility] 03-13-2022 Evaluation note Encounter Date Diagnosis [...] no improvement in 2 to 3 days. [facility] Other 07-20-2022 Evaluation note* Encounter Date Diagnosis [...] the ER for worsening symptoms or concern [facility] Other 2022 Evaluation note* Encounter Date Diagnosis [...] is agreeable at this time Apr, Other [facility] home care material was printed [facility] Other 11-29-2021 Evaluation note* Encounter Date Diagnosis [...] care instructions given in writting by [facility] At Home document [facility] Other Evaluation noteNo assessment information available [facility] Work Phone: Evaluation note* Diagnosis Type 2 diabetes mellitus without complication, without long-term current use of insulin (CMS/HCC)- Primary Dyslipidemia (CMS/HCC) Other and unspecified hyperlipidemia Essential hypertension (CMS/HCC) Unspecified essential hypertension Positive colorectal cancer screening using Cologuard test Screening for colon cancer Special screening for malignant neoplasms, colon Constipation, unspecified constipation type documented in this encounter [facility]* Diagnosis Encounter for screening [...] insulin (CMS/HCC)- Primary documented in this encounter [facility]* Diagnosis Encounter for screening [...] of insulin (CMS/HCC) documented in this encounter [facility]* Diagnosis Encounter for screening [...] malignant neoplasms, colon Constipation, unspecified constipation type Essential hypertension (CMS/HCC) Unspecified essential hypertension [facility] [...] (generalized anxiety disorder) (CMS/HCC) Generalized anxiety disorder [facility] N[facility]ative - Reported* Type Description Date Medical History HTN Medical History Pre diabetic Medical History Anger issues Medical History Hyperlipidemia [facility] Other [employer] for referral (narrative)* Consultation (Routine) - Pending Review Specialty Diagnoses / Procedures Referred By Contac t Referred To Contact Gastroenterology Diagnoses Positive colorectal cancer screening using Cologuard test Screening for colon cancer Procedures CO OFFICE/OUTPATIENT [facility] 60 MINUTES Margarette White NP [address] [place] [phone] Pati Corona MD [address] [place] [id number] Referral ID Status Reason Start Date Expiration Date Visits Requested Visits Authorized [id number] Pending Review Specialty Services Required 12/30/2023 06/27/2024 [...] ed section and content) Reason Comments Follow-up Reason Onset Date Comments Med Refill 03/08/2024 Care Teams (unrecognized sec tion and content) Team Status: Inactive Member Role Status Dates Mamie Cannon NP-C Attending Provider Active Manager Fire Relationship Specialty Start Date End Date Richard Harris MD [address] [place] [phone] PCP - General Family Medicine 11/04/23 Margarette White NP [address] [place] [address] Nurse Practitioner Family Medicine 11/04/23 Manager Fire Relationship Specialty Start Date End Date Richard Harris MD [address] [place] [phone] PCP - General Family Medicine 11/04/23 Margarette White NP [address] [place] [address] Nurse Practitioner Family Medicine 11/04/23 Manager Fire Relationship Specialty Start Date End Date Richard Harris MD [address] [place] [address] PCP - General Family Medicine 11/04/23 Margarette White NP [address] [place] [phone] Nurse Practitioner Family Medicine 11/04/23 Manager Fire Relationship Specialty Start Date End Date Margarette White NP [address] [place] [phone] Nurse Practitioner Family Medicine 11/04/23 Manager Fire Relationship Specialty Start Date End Date Margarette White NP [address] [place] [address] Nurse Practitioner Family Medicine 11/04/23 Goals (unrecognized section and content) Goals may be documented in a n alternate section (unrecognized sect ion and content) No Status Records FoundNo Status Records FoundNo Status Records FoundNo Status Records FoundNo Status Records Found INFORMATION SOURCE (unrecogn ized section and content) DATE CREATED AUTHOR 10/18/2021 [facility] DATE CREATED AUTHOR AUTHOR'S ORGANIZ ATION 08/01/2022 [facility] DATE CREATED AUTHOR AUTHOR'S ORGANIZ ATION 08/24/2023 [facility] DATE CREATED AUTHOR AUTHOR'S ORGANIZ ATION 12/31/2023 [facility] DATE CREATED AUTHOR AUTHOR'S ORGANIZ ATION 03/17/2024 [facility] FOR RECORDS PERTAINING TO PATIENTS WHO ARE [...] BE BASED ON THE PRIMARY CLINICAL RECORDS. [facility] [employer] [facility]. provides no warranty or guarantee of the accuracy or completeness of information in this document.
[2024-03-22 09:20] LABS: Glucometer 136 mg/dL (74-106)
[2024-03-22 09:22] VITALS: BP 121/83; PULSE 85; TEMP 36.1; O2SAT 93
[2024-03-22 09:51] VITALS: BP 129/85; PULSE 82; O2SAT 94
[2024-03-22 09:52] VITALS: BP 128/84; PULSE 84; O2SAT 96
--- NOTE | 2024-03-22 09:55 | W.PM.PROCNOT ---
Date of procedure: 03/22/24 Pre-op diagnosis: Pain due to lumbar spondylosis without myelopathy Post-op diagnosis: same as pre-op Procedure: Procedure: Bilateral L2-3, 3-4 medial branch block Medications: Bupivacaine 0.25% 6cc The patient was seen and examined in the preoperative holding area.? An informed consent was obtained and placed on the chart.? The patient was brought to the medical procedure unit and placed in the prone position.? A timeout was completed verifying correct patient, procedure site, positioning, plan, and special equipment.? Using aseptic technique, the needle was placed at left L2. Under direct fluoroscopic visualization a Quincke-tipped spinal needle was advanced to the junction of the superior articulating process with the transverse process at the designated medial branch segment.? Preceded by negative aspiration, the above-mentioned injectate was placed in 1 mL aliquots.? The procedure was repeated at left L3, 4.? The needle was removed and insertion site was covered. The same procedure, at the same levels, was completed on the right side. The patient was taken to the postprocedural recovery area and monitored for an appropriate length of time before found suitable for discharge in the company of a responsible adult. Anesthesia: Local Surgeon: Swapnil Perkins Pathology: none sent Condition: stable Disposition: no change
[2024-03-22] MEDS: LIDOCAINE HCL 2% 400 MG/20 ML MDV INJ (09:56)
[2024-03-22] MEDS: BUPIVACAINE HCL 0.25% PF 25 MG/10 ML VIAL 8 ML INJ (09:56)
== END 2024-03-22 10:02 | disposition home or self-care (01) ==
LOC: SURGOUT 08:29
PROVIDERS: Visit Provider Anesthesiology
DX: M47.816 Spondylosis without myelopathy or radiculopathy, lumbar region (principal); E11.9 Type 2 diabetes mellitus without complications
CPT/HCPCS: 36415; 64493; 64494; 82948; J0665

== ENCOUNTER 2024-04-01 09:26 | Outpatient (OUT) | payer OTHER, SELFPAY ==
--- NOTE | 2024-04-01 10:01 | P.CN_ITS ---
Consult Note: HPI Data of Consult Patient: known to practice within the last 3 years Requesting Physician: Riri Hastings NP Primary Care Provider: ANNA SMITH Consult Narrative Reason for consult: low back pain Narrative: Hair Santos a pleasant 49 year old male presents for evaluation and management of low back pain with radiculopathy referred by Dr Montgomery and team. Patient noticed significant pain with radiculopathy in May of 2023 and has advanced imaging as noted below. Patient would like to defer on surgical intervention at this time. Pain today 2/10 in low back, at worst 8-9/10. Denies loss of bowel/bladder. No falls. Patient finds benefit to tylenol otc. completed 6 weeks of PT without improvement. Recent right L3/4 TFESI providing moderate relief per pt in pain ongoing with NC. continues to have axial low back pain. recent bilateral L2/3 L3/4 MBb #1 provided significant improvement in pain and functional ability immediately following and the day of the procedure, however #2 provided no relief. cc:: CC: Riri Hastings NP Review of Systems ROS Status of ROS 10 or more systems reviewed and unremark able except as noted in history and below Musculoskeletal Reports: back pain; Denies: extremity pain [facility]SH [facility] Medical History (Updated 03/03/24 @ 11:06 by Riri Hastings NP) Neck pain ?M54.2 - Cervicalgia (ICD-10) Obesity ?E66.9 - Obesity, unspecified (ICD-10) Back pain ?M54.9 - Dorsalgia, unspecified (ICD-10) Anxiety ?F41.9 - Anxiety disorder, unspecified (ICD-10) Diabetes ?E11.9 - Type 2 diabetes mellitus without complications (ICD-10) Kidney stone ?N20.0 - Calculus of kidney (ICD-10) MARKO treated with BiPAP ?G47.33 - Obstructive sleep apnea (adult) (pediatric) (ICD-10) Sleep apnea ?G47.30 - Sleep apnea, unspecified (ICD-10) Asthma ?J45.909 - Unspecified asthma, uncomplicated (ICD-10) Angina at rest ?I20.89 - Other forms of angina pectoris (ICD-10) HTN (hypertension) ?I10 - Essential (primary) hypertension (ICD-10) Surgical History History of carpal tunnel release ?Z98.890 - Other specified postprocedural states (ICD-10) Meds Home Medications and Allergies Home Medications ?Medication ?Instructions ?Recorded ?Confirmed ?Type allopurinol 300 mg tablet 300 mg PO Q12H 10/24/22 03/22/24 History amlodipine 10 mg tablet 10 mg PO QDAY 10/24/22 03/22/24 History aspirin 81 mg tablet,delayed 81 mg PO QDAY 10/24/22 03/22/24 History release buspirone 10 mg tablet 10 mg PO QDAY 10/24/22 03/22/24 History carvedilol 25 mg tablet 25 mg PO Q12H 10/24/22 03/22/24 History losartan 100 1 tab PO QDAY 10/24/22 03/22/24 History mg-hydrochlorothiazide 25 mg tablet pravastatin 40 mg tablet 40 mg PO QDAY 10/24/22 03/08/24 History tizanidine 4 mg tablet 4 mg PO Q12H 10/24/22 03/22/24 History semaglutide 1 mg/dose (2 mg/1.5 1 mg subcut QWEEK 11/03/23 03/22/24 History mL) subcutaneous pen injector baclofen 10 mg tablet 10 mg PO TID PRN muscle spasm #90 03/03/24 03/22/24 Rx tabs meloxicam 7.5 mg tablet 7.5 mg PO BID PRN pain #60 tabs 03/03/24 03/22/24 Rx semaglutide 2 mg/dose (8 mg/3 mL) 2 mg subcut QWEEK 03/22/24 03/22/24 History subcutaneous pen injector (Ozempic) sertraline 50 mg tablet 50 mg PO DAILY 03/22/24 03/22/24 History spironolactone 25 mg tablet 25 mg PO DAILY 03/22/24 03/22/24 History (Aldactone) Allergies Allergy/AdvReac Type Severity Reaction Status Date / Time No Known Drug Allergies Allergy Verified 03/22/24 09:15 Exam Constitutional Documenting provider has reviewed patient's vital signs: yes Common normals: no apparent distress, oriented x3, healthy appearing, alert and well nourished General appearance: cooperative HENMT Common normals: normocephalic, hearing grossly normal bilaterally and moist oral mucous membranes Head and scalp: normocephalic Eye Common normals: PERRL Pupil: PERRL Neck & C-Spine Common normals: full ROM General: normal visual inspection Chest Common normals: inspection of chest normal Respiratory Common normals: normal respiratory effort, no retractions and no use of accessory muscles Back & Pelvis Lumbar spine/lower back: normal to inspection, lumbar ROM normal, pain with ROM and straight leg raise negative bilaterally Sacroiliac joints: SI joints normal Other: positive facet loading sensation intact BLE strength 5/5 in BLE Extremity Common normals: normal to inspection and full ROM Neuro Common normals: oriented x3, CN's II-XII intact bilaterally, moves all extremities, no focal motor deficits, no sensory deficits noted and deep tendon reflexes 2+ bilaterally Sensorium/orientation: alert Motor exam: strength 5/5 throughout and no movement abnormalities noted Psych Common normals: mental status grossly normal, thought process normal, cooperative, affect normal, speech normal and activity/motor behavior normal Speech: normal speech Thought process: normal thought process Results Additional Findings Additional findings: If on a controlled substance or opioids, I have checked an [place]AR[place] report on this patient and there are no aberrancies noted in the prescribing history.??If on a controlled substance or opioid a drug screen was completed and reviewed within the last year, and if there has not been a drug screen completed we ordered one today to monitor higher risk, state monitored pain medication use. As part of providing excellent, safe, comprehensive care, the following was completed at our patient's visit: 1. A medication reconciliation and review to ensure accurate knowledge of current/active medications, including asking our patients to inform us about any [id number] medications or herbal remedies/nutritional supplements/alternative remedies. 2. A review to specifically ensure our patients have had annual screening for screening for depression, screening for tobacco use, and screening for unhealthy alcohol use. For concerning screenings had a discussion with the patient, provided patient education, and recommended follow-up with primary care provider when appropriate. If patient noted with a risk of falling, they received education on strength, gait, and balance training to prevent future risk of falling. Assessment and Plan Assessment and Plan (1) Lumbar spondylosis: (2) Lumbar stenosis with neurogenic claudication: (3) Myalgia, other site: Plan spinal cord stim trial discussed, pt would like to think more about. pt is not interested in NS intervention or back surgery continue baclofen 10mg TID PRN pain/spasms, risks vs benefits reviewed stop otc NSAIDs, continue meloxicam 7.5mg BID PRN pain. risks vs benefits reviewed f/u 6 months, sooner if needed. per pt request
== END 2024-04-01 09:27 | disposition home or self-care (01) ==
LOC: PM 09:26
PROVIDERS: Visit Provider Nurse Practitioner
DX: M47.816 Spondylosis without myelopathy or radiculopathy, lumbar region (principal); M48.062 Spinal stenosis, lumbar region with neurogenic claudication; M79.18 Myalgia, other site
CPT/HCPCS: G0463

== ENCOUNTER 2024-09-29 09:36 | Outpatient (OUT) | payer OTHER, SELFPAY ==
--- NOTE | 2024-09-29 09:52 | PM.CN ---
Consult Note: HPI Data of Consult Patient: known to practice within the last 3 years Consult date: 09/29/24 Requesting Physician: Riri Hastings NP Primary Care Provider: Jenn Barry NP Consult Narrative Reason for consult: low back pain Narrative: Hair Santos a pleasant 49 year old male presents for evaluation and management of low back pain with radiculopathy referred by Dr Montgomery and team. Patient noticed significant pain with radiculopathy in May of 2023 and has advanced imaging as noted below. Patient would like to defer on surgical intervention at this time. Pain today 4/10 in low back, at worst 8-9/10. Denies loss of bowel/bladder. No falls. Patient finds benefit to tylenol otc and tizanidine. completed 6 weeks of PT without improvement. since last visit stopped mobic and baclofen. has had average pain of 2-4 and two episodes in the last 6 months where his pain was moderate to severe. cc:: CC: Riri Hastings NP [facility] Medical History (Updated 03/03/24 @ 11:06 by Riri Hastings NP) Neck pain ?M54.2 - Cervicalgia (ICD-10) Obesity ?E66.9 - Obesity, unspecified (ICD-10) Back pain ?M54.9 - Dorsalgia, unspecified (ICD-10) Anxiety ?F41.9 - Anxiety disorder, unspecified (ICD-10) Diabetes ?E11.9 - Type 2 diabetes mellitus without complications (ICD-10) Kidney stone ?N20.0 - Calculus of kidney (ICD-10) MARKO treated with BiPAP ?G47.33 - Obstructive sleep apnea (adult) (pediatric) (ICD-10) Sleep apnea ?G47.30 - Sleep apnea, unspecified (ICD-10) Asthma ?J45.909 - Unspecified asthma, uncomplicated (ICD-10) Angina at rest ?I20.89 - Other forms of angina pectoris (ICD-10) HTN (hypertension) ?I10 - Essential (primary) hypertension (ICD-10) Surgical History History of carpal tunnel release ?Z98.890 - Other specified postprocedural states (ICD-10) Meds Home Medications and Allergies Home Medications ?Medication ?Instructions ?Recorded ?Confirmed ?Type allopurinol 300 mg tablet 300 mg PO Q12H 10/24/22 03/22/24 History amlodipine 10 mg tablet 10 mg PO QDAY 10/24/22 03/22/24 History aspirin 81 mg tablet,delayed 81 mg PO QDAY 10/24/22 03/22/24 History release buspirone 10 mg tablet 10 mg PO QDAY 10/24/22 03/22/24 History carvedilol 25 mg tablet 25 mg PO Q12H 10/24/22 03/22/24 History losartan 100 1 tab PO QDAY 10/24/22 03/22/24 History mg-hydrochlorothiazide 25 mg tablet pravastatin 40 mg tablet 40 mg PO QDAY 10/24/22 03/08/24 History tizanidine 4 mg tablet 4 mg PO Q12H 10/24/22 03/22/24 History Held on 03/22/24. Instructions: on hold semaglutide 1 mg/dose (2 mg/1.5 1 mg subcut QWEEK 11/03/23 03/22/24 History mL) subcutaneous pen injector baclofen 10 mg tablet 10 mg PO TID PRN muscle spasm #90 03/03/24 03/22/24 Rx tabs meloxicam 7.5 mg tablet 7.5 mg PO BID PRN pain #60 tabs 03/03/24 03/22/24 Rx semaglutide 2 mg/dose (8 mg/3 mL) 2 mg subcut QWEEK 03/22/24 03/22/24 History subcutaneous pen injector (Ozempic) sertraline 50 mg tablet 50 mg PO DAILY 03/22/24 03/22/24 History spironolactone 25 mg tablet 25 mg PO DAILY 03/22/24 03/22/24 History (Aldactone) Allergies Allergy/AdvReac Type Severity Reaction Status Date / Time No Known Drug Allergies Allergy Verified 03/22/24 09:15 Exam Constitutional Documenting provider has reviewed patient's vital signs: yes Common normals: no apparent distress, oriented x3, healthy appearing, alert and well nourished General appearance: cooperative HENMD Common normals: normocephalic, hearing grossly normal bilaterally and moist oral mucous membranes Head and scalp: normocephalic Eye Common normals: PERRL Pupil: PERRL Neck & C-Spine Common normals: full ROM General: normal visual inspection Chest Common normals: inspection of chest normal Respiratory Common normals: normal respiratory effort, no retractions and no use of accessory muscles Back & Pelvis Lumbar spine/lower back: normal to inspection and lumbar ROM normal; ROM not limited, no pain with ROM and no lumbar spinal tenderness Other: strength 5/5 in BLE sensation intact BLE Neuro Common normals: oriented x3 Sensorium/orientation: alert Psych Common normals: mental status grossly normal, thought process normal, cooperative, affect normal, speech normal and activity/motor behavior normal Speech: normal speech Thought process: normal thought process Results Imaging Lumbar MRI: Attestation: I have reviewed the pertinent imaging results. Radiologist's impression: Level of T12-L1 is unremarkable. No neural foraminal narrowing or canal stenoses at the level of L1-L2 and L2-L3 is noted. At the level of L3-4, there are disc bulge with superimposed right lateral extrusion with inferior migration with moderate bilateral neuroforaminal narrowing and moderate to severe canal stenosis. The right L4 nerve root is in close contact with the disc extrusion in the lateral recess. At the level of L4-5, there are disc bulge with moderate bilateral neuroforaminal narrowing and mild canal stenosis. At the level of L5-S1, there are disc bulge with central annular fissure with mild right and moderate left neuroforaminal narrowing and no canal stenosis. The left S1 nerve root is in close contact with the disc bulge in the lateral recess. The paraspinal muscles are unremarkable. Lumbar Xray: Attestation: I have reviewed the pertinent imaging results. Radiologist's impression: FINDINGS: BONES: Suspect mild grade 1 anterolisthesis of L4 on 5 without appreciable change in alignment during flexion and extension. No change in alignment during flexion and extension. Mild degenerative facet arthropathy L3-L4 through L5-S1. DISC SPACES: Mild narrowing L3-L4, L4-L5. PARASPINOUS: Negative. No paraspinous abnormality is seen. OTHER: Negative. Additional Findings Additional findings: If on a controlled substance or opioids, I have checked an [place] report on this patient and there are no aberrancies noted in the prescribing history.??If on a controlled substance or opioid a drug screen was completed and reviewed within the last year, and if there has not been a drug screen completed we ordered one today to monitor higher risk, state monitored pain medication use. As part of providing excellent, safe, comprehensive care, the following was completed at our patient's visit: 1. A medication reconciliation and review to ensure accurate knowledge of current/active medications, including asking our patients to inform us about any [id number] medications or herbal remedies/nutritional supplements/alternative remedies. 2. A review to specifically ensure our patients have had annual screening for screening for depression, screening for tobacco use, and screening for unhealthy alcohol use. For concerning screenings had a discussion with the patient, provided patient education, and recommended follow-up with primary care provider when appropriate. If patient noted with a risk of falling, they received education on strength, gait, and balance training to prevent future risk of falling. Portions of this note may have been carried over from the previous visit and updated as appropriate. Please note this office utilizes paper charting in addition to the electronic medical record. A list of current medications, vitals, and PMH is available there as the clinical staff outside of myself do not have access to [employer] charting during the clinic day operations. As part of providing quality comprehensive care the current medications, vitals, and PMH were reviewed in the paper chart. Assessment and Plan Assessment and Plan (1) Lumbar spondylosis: (2) Lumbar stenosis with neurogenic claudication: Plan 49 year old male with chronic low back pain, pain well controlled with current medications through PCP continue HEP as tolerated f/u PRN
== END 2024-09-29 09:37 | disposition home or self-care (01) ==
LOC: PM 09:37
PROVIDERS: PCP Nurse Practitioner; Visit Provider Nurse Practitioner
DX: M47.816 Spondylosis without myelopathy or radiculopathy, lumbar region (principal); M48.062 Spinal stenosis, lumbar region with neurogenic claudication
CPT/HCPCS: G0463

== ENCOUNTER 2025-01-10 13:30 | Outpatient (OUT) | payer OTHER, SELFPAY ==
--- OUTSIDE RECORDS SUMMARY | 2025-01-10 13:38 | XMS_ITS | CCD ---
Author Organization [facility] Care Team Providers Care 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 Name Role Phone Alexandra Gill Unavailable Alexandra Dimas Unavailable JUSTO Cannon Attending Provider Mamie Cannon Unavailable FAWWAD, YIN H Admitting Unavailable FAWWAD, YIN H Attending Unavailable FAWWAD, YIN H Consulting Unavailable FAWWAD, YNI H Primary Care Unavailable JOSE ., DR [...] Referring Unavailable FAWWAD, YIN Primary Care Unavailable Steven SIMS, Richard Primary Care Provider [phone] Anna White NP Unavailable [phone] Maddie SIMS, Swapnil Cummins Attending Unavailable Maddie SIMS, Swapnil Cummins Attending Unavailable Maddie SIMS, Andeliana Cummins Attending Unavailable Maddie SIMS, Swapnil Cummins Attending Unavailable Shaikh Cordoba MD Primary Care Provider Richard Harris MD Primary Care Provider Christopher OREMAN, Anna Unavailable Asha RN [employer] OREMAN, Jenn Covarrubias Primary Care Provide r JENN BARRY Attending Unavailable JENN BARRY Attending Unavailable ANNA WHITE Attending UnavailMORGAN Marx Admitting Unavailable MORGAN LOVELL Attending Unavailable JENN BARRY Primary Care Unavailable JENN BARRY Referring Unavailable JENN BARRY Primary Care Unavailable VIRGINIA RAMOS Referring Unavailable JENN BARRY Primary Care Unavailable JENN BARRY Primary Care Unavailable JENN BARRY Referring Unavailable Medications Current Medications Medication Drug Class(es) Dates Sig (Normalized) Sig (Original) acetaminophen 325 mg / HYDROcodone bitartrate 5 mg oral tablet (20 sources) Opioid Agonist Start: 10-06-2023 End: 10-13-2023 take 1 tablet by mouth every six hours as needed HYDROcodone-aceta minophen ([place]) 5-325 MG tablet Take 1 tablet by mouth every 6 (six) hours if needed 10/06/2023 Active [id number] actuat albuterol 0.09 mg/actuat metered dose [...] Nov, Active allopurinol 300 mg oral tablet (20 sources) Xanthine Oxidase Inhibitor Start: 10-01-2023 End: 12-28-2024 take 1 tablet by mouth once daily allopurinol (Zyloprim) 300 MG tablet Indications: Hyperuricemia Take 1 tablet (300 mg) by mouth Daily 90 tablet 1 09/29/2024 12/28/2024 Active take 1 tablet by mouth once karine y allopurinol (ZYLOPRIM) 100 MG tablet Take 1 tablet by mouth daily Active amLODIPine 10 mg oral tablet (20 sources) Dihydropyridine Calcium Channel Micheal Start: 03-29-2024 End: 12-28-2024 take 1 tablet by mouth once daily amLODIPine (Norvasc) 10 MG tablet Indications: Essential hypertension Take 1 tablet (10 mg) by mouth Daily 90 tablet 1 09/29/2024 12/28/2024 Active Start: 10-01-2023 End: 03-25-2024 take 1 tablet by mouth once daily amLODIPine (Norvasc) 10 MG tablet Indications: Essential hypertension (CMS/HCC) Take 1 tablet (10 mg) by mouth Daily 90 tablet 1 03/08/2024 03/25/2024 Discontinued (Reorder) take 1 tablet by chintan th once daily amLODIPine (NORVASC) 2.5 MG tablet Take 1 tablet by mouth daily Active amLODIPine Besyl ate Active ASA (6 sources) ASA Active aspirin 81 mg delayed release oral tablet (20 sources) Platelet Aggregation Inhibitor, Nonsteroidal Anti-inflammatory Drug Start: 06-30-19 End: 09-30-19 25 take 1 tablet by mouth once daily aspirin 81 MG EC tablet Indications: Essential hypertension , Type 2 diabetes mellitus without complication, without long-term current use of insulin (HCC) Take 1 tablet (81 mg) by mouth Daily 90 tablet 1 06/29/2024 09/29/2024 Active Atenolol (6 sources) beta-Adrenergic Micheal Atenolol Active atorvastatin 20 mg oral tablet (13 sources) HMG-CoA Reductase Inhibitor Start: 09-03-19 End: 09-03-19 26 take 1 tablet by mouth once daily atorvastatin (LIPITOR) 20 MG tablet Take 1 tablet by mouth nightly 09/02/2024 Active benzonatate 100 mg oral capsule (1 source) Non-narcotic Antitussive Start: 09-13-20 21 take 1 capsule by mouth three times daily as needed Tessalon Perles 100 MG 1 capsule as needed Orally Three times a day Nov, Active Blood Glucose Monitoring Suppl (OneTouch Verio Flex System) w/Device kit (4 sources) Start: 06-30-19 Blood Glucose Monitoring Suppl (OneTouch Verio Flex System) w/Device kit USE DIRECTED 06/29/2024 Active busPIRone hydrochloride 15 mg oral tablet (20 sources) Start: 06-30-19 End: 09-28-19 take 1 tablet by mouth every eight hours busPIRone (Buspar) 15 MG tablet Indications: JAN (generalized anxiety disorder) Take 1 tablet (15 mg) by mouth every 8 (eight) hours if needed (anxiety) 270 tablet 1 06/29/2024 Active Start: 10-01-2023 End: 06-29-2024 take 1 tablet by mouth three times daily as needed for anxiety busPIRone (Buspar) 10 MG tablet Indications: JAN (generalized anxiety disorder) (CMS/HCC) Take 1 tablet (10 mg) by mouth 3 (three) times a day as needed (Anxiety) 270 tablet 1 10/01/2023 06/29/2024 Discontinued (Ineffective) take 1 tablet by [facility] three times daily as needed busPIRone (BUSPAR) 5 MG tablet Take 1 tablet by mouth 3 times daily as needed Active calcium chloride 0.0014 meq/ ml / potassium chloride 0.004 meq/ml / sodium chloride 0.103 meq/ml / sodium lactate 0.028 meq/ml injectable solution (2 sources) Start: 10-28-2024 IntraVENous, a t 100 mL/hr, CONTINUOUS, Starting on Fri10/28/24 at 0845, Pre-op (day of surgery) Start: 10-06-2023 lactated ringe rs IV soln infusion carvedilol 25 mg oral tablet (20 sources) alpha-Adrenergic Micheal, beta-Adrenergic Micheal Start: 10-01-2023 End: 12-28-2024 take 1 tablet by mouth in the morning carvedilol (Coreg) 25 MG tablet Indications: Essential hypertension Take 1 tablet (25 mg) by mouth in the morning and 1 tablet (25 mg) in the evening. Take with meals. 180 tablet 1 09/29/2024 12/28/2024 Active take 1 tablet by mouth once karine y carvedilol (COREG) 3.125 MG tablet Take 1 tablet by mouth daily Active take 1 tablet by chintan th twice daily at mealtime carvedilol (COREG) 3.125 MG tablet Take 1 tablet by mouth 2 times daily (with meals) Active cephalexin 500 mg oral capsule (10 sources) Cephalosporin Antibacterial Start: 10-06-2023 End: 12-30-2023 take 1 capsule by mouth in the morning, then take 1 capsule by mouth in the evening, then take 1 capsule by mouth at bedtime cephalexin (Keflex) 500 MG capsule Take 500 mg by mouth in the morning and 500 mg in the evening and 500 mg before bedtime. 10/06/2023 12/30/2023 Discontinued (Therapy completed) Start: 10-06-2023 End: 10-13-2023 take 1 capsule by mouth three times daily cephALEXin (KEFLEX) 500 MG capsule Take 1 capsule by mouth 3 times daily for 7 days 21 capsule 0 10/06/2023 10/13/2023 Active Start: 10-10-2021 take 1 capsule by mo [facility] every twelve hours Cephalexin 500 MG 1 capsule Orally two times a day for 5 day(s) Sep, Active Start: 05-19-2021 take 1 tablet by chintan th every twelve hours Cephalexin 500 MG 1 tablet Orally every 12 hrs for 10 day(s) Apr, Active Continuous Glucose Digital Marketing Associate (Dexcom G7 Digital Marketing Associate) device (9 sources) Start: 01-05-2024 End: 06-29-2024 Continuous Glucose Digital Marketing Associate (Dexcom G7 Digital Marketing Associate) device Indications: Type 2 diabetes mellitus without complication, without long-term current use of insulin 1 each continuously 1 each 2 01/05/2024 06/29/2024 Discontinued (Cost of medication) Start: 01-05-2024 Continuous Glu cose Digital Marketing Associate (Dexcom G7 Digital Marketing Associate) device Indications: Type 2 diabetes mellitus without complication, without long-term current use of insulin ([facility]) 1 each continuously 1 each 2 01/05/2024 Active Continuous Glucose Sensor (Dexcom G7 Sensor) misc (9 sources) Start: 01-05-2024 End: 06-29-2024 Continuous Glucose Sensor (D excom G7 Sensor) misc Indications: Type 2 diabetes mellitus without complication, without long-term current use of insulin 1 each continuously 3 each 1 01/05/2024 06/29/2024 Discontinued (Cost of medication) Start: 01-05-2024 Continuous Glu cose Sensor (Dexcom G7 Sensor) [facility] Indications: Type 2 diabetes mellitus without complication, without long-term current use of insulin (CMS/HCC) 1 each continuously 3 each 1 01/05/2024 Active Continuous Glucose Sensor (FreeStyle Marlon 2 Sensor) [facility] (12 sources) Start: 09-22-2023 End: 06-29-2024 Continuous Glucose Sensor (FreeStyle Marlon 2 Sensor) [facility] Indications: Type 2 diabetes mellitus without complication, without long-term current use of insulin 1 each by Other route every 14 (fourteen) days 6 each 1 09/22/2023 06/29/2024 Discontinued (Cost of medication) Start: 09-22-2023 Continuous Glu cose Sensor (FreeStyle Marlon 2 Sensor) [facility] Indications: Type 2 diabetes mellitus without complication, without long-term current use of insulin (CMS/[facility]) 1 each by Other route every 14 (fourteen) days 6 each 1 09/22/2023 Active empagliflozin (6 sources) Sodium-Glucose Cotransporter 2 Inhibitor JARDIANCE Active fluticasone propionate 0.05 mg/actuat metered dose nasal spray (2 sources) Corticosteroid Start : 07-03 take 1 spray(s) nasal route once daily Fluticasone Propionate 50 MCG/ACT 1 spray in each nostril Nasally Once a day for 21 days Nov, Active glipiZIDE 5 mg oral tablet (15 sources) Sulfonylurea Start : 09-30 End: 09-25 take 1 tablet by mouth in the morning glipiZIDE (Glucotrol) 5 MG tablet Indications: Type 2 diabetes mellitus without complication, without long-term current use of insulin Take 1 tablet (5 mg) by mouth in the morning and 1 tablet (5 mg) in the evening. Take before meals. 180 tablet 1 03/29/2024 06/29/2024 Discontinued (Therapy completed) hydroCHLOROthiazide 25 mg / losartan potassium 100 mg oral tablet (20 sources) Thiazide Diuretic, Angiotensin 2 Receptor Micheal Start : 09-30 End: 12-28 take 1 tablet by mouth once daily losartan-hydroCHLOROthi azide (Hyzaar) 100-25 MG tablet Indications: Essential hypertension Take 1 tablet by mouth Daily 90 tablet 1 09/29/2024 12/28/2024 Active hydrOXYzine (6 sources) Antihistamine hydrOXYzine HCl Active Lisinopril (6 sources) Angiotensin Converting Enzyme Inhibitor Lisinopril Active methylPREDNISolone 4 mg oral tablet (1 source) Corticosteroid Start : 12-04 methylPREDNISolone 4 MG as directed Orally Once a day for 6 days Nov, Active mupirocin 0.02 mg/mg topical ointment (14 sources) RNA Synthetase Inhibitor Antibacterial Start : 10-05 End: 06-29 mupirocin (Bactroban) 2 % ointment 10/06/2023 06/29/2024 Discontinued (Therapy completed) Start: 05-10-2021 Mupirocin 2 % 1 application Externally Three times a day for 7 days Apr, Active ofloxacin 3 mg/ml otic solution (12 sources) Quinolone Antimicrobial Start: 08-11-2023 End: 06-29-2024 ofloxacin (Floxin) 0.3 % otic solution instill 5 (FIVE) DROPS into the affected EAR TWICE DAILY FOR 7 DAYS 08/11/2023 06/29/2024 Discontinued (Therapy completed) OZEMPIC, 2 MG/DOSE, 8 MG/3ML SOPN sc injection (3 sources) Start: 08-04-2024 OZEMPIC, 2 MG/ DOSE, 8 MG/3ML SOPN sc injection Inject 2 mg into the skin every 7 days 08/04/2024 Active Semaglutide, 2 MG/DOSE, (Ozempic, 2 MG/DOSE,) 8 MG/3ML solution pen-injector (20 sources) Start: 08-04-2024 Semaglutide, 2 MG/DOSE, (Ozempic, 2 MG/DOSE,) 8 MG/3ML solution pen-injector Indications: Type 2 diabetes mellitus without complication, without long-term current use of insulin (HCC) Inject 2 mg under the skin every 7 (seven) days 9 mL 08/04/2024 Active Start: 08-04-2024 Semaglutide, 2 MG/DOSE, (Ozempic, 2 MG/DOSE,) 8 MG/3ML solution pen-injector Indications: Type 2 diabetes mellitus without complication, without long-term current use of insulin Inject 2 mg under the skin every 7 (seven) days 9 mL 08/04/2024 Active Start: 05-31-2024 End: 08-29-2024 Semaglutide, 2 MG/DOSE, (Oze mpic, 2 MG/DOSE,) 8 MG/3ML solution pen-injector Indications: Type 2 diabetes mellitus without complication, without long-term current use of insulin Inject 2 mg under the skin every 7 (seven) days 9 mL 1 05/31/2024 08/29/2024 Active Start: 01-26-2024 Semaglutide, 2 MG/DOSE, (Ozempic, 2 MG/DOSE,) 8 MG/3ML solution pen-injector Indications: Type 2 diabetes mellitus without complication, without long-term current use of insulin (CMS/HCC) Inject 2 mg under the skin every 7 (seven) days 9 mL 1 01/26/2024 Active Start: 01-26-2024 End: 04-25-2024 Semaglutide, 2 MG/DOSE, (Oze mpic, 2 MG/DOSE,) 8 MG/3ML solution pen-injector Indications: [...] 10/01/2023 Active sertraline 50 mg oral tablet (20 sources) Serotonin Reuptake Inhibitor Start: 10-01-2023 End: 09-27-2024 take 1 tablet by mouth once daily sertraline (Zoloft) 50 MG tablet Indications: JAN (generalized anxiety disorder) Take 1 tablet (50 mg) by mouth Daily 90 tablet 1 06/29/2024 Active take 1 tablet by mouth once karine y sertraline (ZOLOFT) 25 MG tablet Take 1 tablet by mouth daily Active Zoloft Active 5 ml sodium chloride 9 mg/ml injection (3 sources) Start: 10-06-2023 0.9 % sodium c hloride infusion Start: 10-06-2023 sodium chlorid e flush 0.9 % injection 5-40 mL spironolactone 25 mg oral tablet (20 sources) Aldosterone Antagonist Start: 10-01-2023 End: 12-28-2024 take 1 tablet by mouth once daily spironolactone (Aldactone) 25 MG tablet Indications: Essential hypertension Take 1 tablet (25 mg) by mouth Daily 90 tablet 1 09/29/2024 12/28/2024 Active tiZANidine 4 mg oral tablet (20 sources) Central alpha-2 Adrenergic Agonist Start: 10-01-2023 End: 12-28-2024 take 1 tablet by mouth every eight hours for muscle spasms tiZANidine (Zanaflex) 4 MG tablet Indications: Acute bilateral low back pain with right-sided sciatica Take 1 tablet (4 mg) by mouth every 8 (eight) hours if needed for muscle spasms 270 tablet 1 09/29/2024 12/28/2024 Active take 1 tablet by chintan th every six hours as needed tiZANidine (ZANAFLEX) 2 MG tablet Take 1 tablet by mouth every 6 hours as needed Active Completed/Discontinued Medications Medication Drug Class(es) Dates Sig (Normalized) Sig (Original) ceFAZolin (ANCEF) 3,000 mg in sodium chloride 0.9 % 100 mL IVPB (1 source) Start: 10-06-19 End: 10-06-19 24 ceFAZolin (ANCEF) 3,000 mg in sodium chloride 0.9 % 100 mL IVPB cefTRIAXone (4 sources) Cephalosporin Antibacterial Start: 05-27-19 Rocephin 500 mg May, 1 g hydroCHLOROthiazide 12.5 mg oral capsule (13 sources) Thiazide Diuretic End: 10-20-19 take 1 capsule by mouth once daily hydroCHLOROthiazide 12.5 MG capsule Take 1 capsule by mouth daily 10/19/2024 Discontinued (LIST CLEANUP) hydroCHLOROthiaz yandy Active losartan potassium 25 mg oral tablet (7 sources) Angiotensin 2 Receptor Micheal End: 10-19-2024 take 1 tablet by mouth once daily losartan (COZAAR) 25 MG tablet Take 1 tablet by mouth daily 10/19/2024 Discontinued (LIST CLEANUP) pravastatin sodium 40 mg oral tablet (20 sources) HMG-CoA Reductase Inhibitor Start: 10-01-2023 End: 09-27-2024 take 1 tablet by mouth at bedtime pravastatin (Pravachol) 40 MG tablet Indications: Dyslipidemia Take 1 tablet (40 mg) by mouth at bedtime 90 tablet 1 06/29/2024 09/02/2024 Discontinued (Ineffective) take 1 tablet by mouth once karine y pravastatin (PRAVACHOL) 10 MG tablet Take 1 tablet by mouth daily Active Pravastatin Acti ve Pravastatin Sodi um Active Problems Active Problems Problem Classification Problem Date Documented Da te Episodic/Chronic Abdominal pain (4 sources) Right upper quadrant pain; Translations: [RIGHT UPPER QUADRANT PAIN] Onset: 07-24-2022 Episodic Anxiety disorders (20 sources) Mixed anxiety and depressive disorder; Translations: [Other specified anxiety disorders] Onset: 06-05-2023 Resolved: 09-29-2024 06-05-2023 Chronic Diabetes mellitus with complications (7 sources) Type 2 diabetes mellitus; Translations: [Type 2 diabetes mellitus with other specified complication] Onset: 09-29-2024 09-29-2024 Chronic Diabetes mellitus without complication (20 sources) Type 2 diabetes mellitus without complications; Translations: [Type 2 diabetes mellitus without complication] Onset: 03-10-2022 Chronic Disorders of lipid metabolism (20 sources) Hyperlipidemia, unspecified; Translations: [Dyslipidemia] Onset: 03-09-2020 Resolved: 09-29-2024 06-05-2023 Chronic Essential hypertension (20 sources) Essential (primary) hypertension; Translations: [Essential hypertension] Onset: 03-09-2020 Chronic Gastrointestinal hemorrhage (3 sources) Rectal hemorrhage; Translations: [Hemorrhage of anus and rectum] Onset: 10-28-2024 10-28-2024 Episodic Nausea and vomiting (6 sources) Nausea and vomiting; Translations: [Nausea with vomiting, unspecified] Episodic Other aftercare (1 source) snf (current) use of aspirin; Translations: [LONG-TERM CURRENT USE OF ASPIRIN] Onset: 07-29-2022 Episodic Other aftercare (1 source) Other middle or intermediate school principal (current) drug therapy; Translations: [OTH LONG-TERM CURRENT DRUG THERAPY] Onset: 07-29-2022 Episodic Other and ill-defined heart disease (3 sources) Cardiomegaly; Translations: [Cardiomegaly] Onset: 08-06-2019 10-05-2024 Chronic Other connective tissue disease (11 sources) Pain in right heel; Translations: [Pain in right foot] Onset: 09-29-2024 09-29-2024 Episodic Other ear and sense organ disorders (6 sources) Otitis externa; Translations: [Other otitis externa, bilateral] Chronic Other ear and sense organ disorders (3 sources) Hearing loss; Translations: [Unspecified hearing loss, unspecified ear] Onset: 02-24-2020 10-05-2024 Chronic Other gastrointestinal disorders (12 sources) Diarrhea; Translations: [Diarrhea, unspecified] Episodic Other gastrointestinal disorders (1 source) Other fecal abnormalities; Translations: [Other fecal abnormalities] Onset: 10-28-2024 Episodic Other nervous system disorders (20 sources) Entrapment of right ulnar nerve; Translations: [Lesion of ulnar nerve, right upper limb] Onset: 10-01-2023 10-01-2023 Chronic Other nutritional; endocrine; and metabolic disorders (20 sources) Morbid obesity; Translations: [Morbid (severe) obesity due to excess calories] Onset: 03-09-2020 Resolved: 06-29-2024 06-05-2023 Chronic Other nutritional; endocrine; and metabolic disorders (17 sources) Body mass index 40+ - severely obese; Translations: [Body mass index (BMI) 40.0-44.9, adult] Onset: 06-29-2024 06-29-2024 Chronic Other nutritional; endocrine; and metabolic disorders (16 sources) Obesity caused by energy imbalance; Translations: [Morbid (severe) obesity due to excess calories] Onset: 06-29-2024 06-29-2024 Chronic Other nutritional; endocrine; and metabolic disorders (2 sources) Hyperuricemia without signs of inflammatory arthritis and tophaceous disease; Translations: [Hyperuricemia without signs of inflammatory arthritis and tophaceous disease] Onset: 09-01-2024 Episodic Other screening for suspected conditions (not mental disorders or infectious disease) (20 sources) Patient encounter status; Translations: [Encounter for screening for malignant neoplasm of colon] Onset: 06-05-2023 06-05-2023 Episodic Residual codes; unclassified (20 sources) Sleep apnea; Translations: [Sleep apnea, unspecified] Onset: 08-06-2019 06-05-2023 Chronic Residual codes; unclassified (2 sources) Obstructive sleep apnea syndrome; Translations: [Obstructive sleep apnea (adult) (pediatric)] 06-29-2024 Chronic Residual codes; unclassified (2 sources) Obstructive sleep apnea (adult) (pediatric); Translations: [Obstructive sleep apnea (adult) (pediatric)] Onset: 09-01-2024 Chronic Spondylosis; intervertebral disc disorders; other back problems (1 source) Other intervertebral disc degeneration, lumbar region; Translations: [Other intervertebral disc degeneration, lumbar region] Onset: 06-23-2023 Chronic Unclassified (1 source) Low back pain, unspecified; Translations: [Low back pain, unspecified] Onset: 06-23-2023 Unclassified (16 sources) Patient on antidepressant monitoring plan Onset: 03-08-2024 03-08-2024 Unclassified (16 sources) Baseline PHQ-9 Onset: 03-08-2024 03-08-2024 Past or Other Problems Problem Classification Problem Date Documented Da te Episodic/Chronic Genitourinary symptoms and ill-defined conditions (3 sources) Dysuria Onset: 10-10-2021 Resolved: 10-10-2021 Episodic Immunizations and screening for infectious disease (20 sources) Contact with and (suspected) exposure to other viral communicable diseases; Translations: [Methicillin resistant staphylococcus aureus positive] Onset: 02-19-2021 Resolved: 02-19-2021 Episodic Nonspecific chest pain (3 sources) Precordial pain; Translations: [Precordial pain] Onset: 08-06-2019 10-05-2024 Episodic Other gastrointestinal disorders (20 sources) Stool DNA-based colorectal cancer screening positive; Translations: [Other fecal abnormalities] Onset: 12-30-2023 12-30-2023 Episodic Other gastrointestinal disorders (20 sources) Constipation; Translations: [Constipation, unspecified] Onset: 12-30-2023 12-30-2023 Episodic Other lower respiratory disease (3 sources) Dyspnea; Translations: [Shortness of breath] Onset: 08-06-2019 10-05-2024 Episodic Other nervous system disorders (1 source) Postoperative pain ; Translations: [Other acute postprocedural pain] 10-06-2023 Episodic Other nutritional; endocrine; and metabolic disorders (20 sources) Hyperuricemia; Translations: [Hyperuricemia without signs of inflammatory arthritis and tophaceous disease] Onset: 06-05-2023 06-05-2023 Episodic Residual codes; unclassified (3 sources) History of chest pain; Translations: [Personal history of other specified conditions] Onset: 03-09-2020 10-05-2024 Episodic Skin and subcutaneous tissue infections (1 source) Cellulitis of right toe Onset: 05-10-2021 Resolved: 05-10-2021 Episodic Spondylosis; intervertebral disc disorders; other back problems (20 sources) Acute back pain with sciatica; Translations: [Lumbago with sciatica, right side] Onset: 06-05-2023 06-05-2023 Episodic Unclassified (1 source) Patient encounter status 10-05-2024 Urinary tract infections (3 sources) Urinary tract infection, site not specified Onset: 10-10-2021 Resolved: 10-10-2021 Episodic Viral infection (2 sources) COVID-19 Onset: 02-19-2021 Resolved: 02-19-2021 Results Test Name Value Interpretation Reference Range [facility] 11-15-2024 ALT [Catalytic activity/Vol] 18 U/L 10 - 50 U/L [facility] ALT [Catalytic activity/Vol] 18 U/L Normal [address] Comment on above: Performed By: #### A ST ALT #### [facility] [address] [place] [address] [place] [address] Tag Machine Operator: Elvis Griffiths MD #### LIPR #### [facility] [address] [place], [place] [id number] Tag Machine Operator: MD Jose Juan Price 11-15-2024 AST [Catalytic activity/Vol] 20 U/L 10 - 50 U/L [facility] AST [Catalytic activity/Vol] 20 U/L Normal [address] Comment on above: Performed By: #### A ST, ALT #### [facility] [address] [place] [address] [place] [address] Tag Machine Operator: Elvis Griffiths MD #### LIPR #### [address] [address] [place], [place] [id number] Tag Machine Operator: Brandon Mancia MD [facility] 11-15-2024 ALT [Catalytic activity/Vol] 18 U/L 10 - 50 U/L [facility] 11-15-2024 AST [Catalytic activity/Vol] 20 U/L 10 - 50 U/L [facility] 11-15-2024 Cholesterol [Mass/Vol] 103 mg/dL 0 - 199 mg/dL [facility] [employer] Comment on above: Cholesterol Guidelines: <200 Desirable 200-240 Borderline >240 Undesirable Cholesterol in HDL [Mass/Vol] 28 mg/dL Low 40 - PINF mg/dL [facility] Comment on above: HDL Guidelines: <40 Undesirable 40-59 Borderline >59 Desirable Cholesterol in LDL [Mass/Vol] 57 mg/dL 0 - 100 mg/dL [facility] Comment on above: LDL Guidelines: <100 Desirable 100-129 Near to/above Desirable 130-159 Borderline >159 Undesirable Direct (measured) LDL and calculated LDL are not interchangeable tests. Cholesterol in VLDL [Mass/Vol] 18 mg/dL 1 - 30 mg/dL [facility] Cholesterol.total/C holesterol in HDL [Mass ratio] 3.7 {ratio} NINF - 5.0 [facility] Interpretation and review of laboratory results Abnormal [facility] Triglyceride [Mass/Vol] 89 mg/dL NINF - 150 mg/dL [facility] Comment on above: Triglyceride Guidelines: <150 Desirable 150-199 Borderline 200-499 High >499 Very high Based on AHA Guidelines for fasting triglyceride, December 2011. [facility] Lipid Profileon 11-15-2024 Cholesterol [Mass/Vol] 103 mg/dL Normal 0-199 [facility] Comment on above: Result Comment: Cholesterol Guidelines: <200 Desirable 200-240 Borderline >240 Undesirable Performed By: #### A ST, ALT #### [facility] [address] [place] [address] Tag Machine Operator: Elvis Griffiths MD #### LIPR #### [address] [place], [place] [id number] Tag Machine Operator: Brandon Mancia MD Cholesterol in HDL [Mass/Vol] 28 mg/dL Low >40 [facility] Comment on above: Result Comment: HDL Guidelines: <40 Undesirable 40-59 Borderline >59 Desirable Performed By: #### A ST, ALT #### [facility] [address] [place] [address] Tag Machine Operator: Elvis Griffiths MD #### LIPR #### [place] [place] [address] Tag Machine Operator: Brandon Mancia MD Cholesterol in LDL [Mass/Vol] 57 mg/dL Normal 0-100 [facility] Comment on above: Result Comment: LDL Guidelines: <100 Desirable 100-129 Near to/above Desirable 130-159 Borderline >159 Undesirable Direct (measured) LDL and calculated LDL are not interchangeable tests. Performed By: #### A , ALT #### [facility] [address] [place] [id number] Tag Machine Operator: Elvis Griffiths MD #### LIPR #### [address] [address] Tag Machine Operator: Brandon Mancia MD Cholesterol in VLDL [Mass/Vol] 18 mg/dL Normal 1-30 [facility] Comment on above: Performed By: #### A ST, ALT #### [facility] [address] [place], [place] [id number] Tag Machine Operator: Elvis Griffiths MD #### LIPR #### [address] [address] Tag Machine Operator: Brandon Mancia MD Cholesterol.total/C holesterol in HDL [Mass ratio] 3.7 {ratio} Normal <5.0 [facility] Comment on above: Performed By: #### A , ALT #### [facility] [address] [place] [address] [address] [place], [place] [id number] Tag Machine Operator: Elvis Griffiths MD #### LIPR #### [facility] [address] [place] [address] Tag Machine Operator: Brandon Mancia MD Triglyceride [Mass/Vol] 89 mg/dL Normal <150 [facility] Comment on above: Result Comment: Triglyceride Guidelines: <150 Desirable 150-199 Borderline 200-499 High >499 Very high Based on AHA Guidelines for fasting triglyceride, December 2011. Performed By: #### A ST, ALT #### [facility] [address] [place] [address] Tag Machine Operator: Elvis Griffiths MD #### LIPR #### [facility] [address] [place] [address] Tag Machine Operator: Brandon Mancia MD No Panel Informationon 11-15 Original Ordering Provider: JENN BARRY [facility] [employer] [facility] Glucose,Whole Bloodon 2024 Glucose [Mass/Vol] 122 mg/dL High 65-99 [facility] MHPT GLUCOSE,WHOLE BLOODon 0 10-28-2024 Glucose [Mass/Vol] 122 mg/dL High 65 - 99 mg/dL [facility] Interpretation and review of laboratory results Abnormal [facility] re Original Ordering Provider: MORGAN LOVELL [facility] Healthcar e Surgical Pathology Reporton 10-28-2024 Surgical Pathology Report (NOTE) Path Number: [id number] -- Diagnosis -- A. Distal sigmoid colon, polypectomy: Hyperplastic polyp. B. Splenic flexure colon, polypectomy: Hyperplastic polyp. C. Rectum, polypectomy: Benign lymphoid polyp. Jarocho Cardona M.D. Electronically Signed Out rdd/10/31/2024 Clinical Information Pre-Op Diagnosis: POSITIVE COLORECTAL CANCER SCREENING USING COLOGUARD TEST Operative Findings: DISTAL SIGMOID POLYP; SPLENIC FLEXURE POLYP; RECTAL POLYP Operation Performed: COLONOSCOPY POLYPECTOMY SNARE/BIOPSY mj Source of Specimen A: DISTAL SIGMOID POLYP B: SPLENIC FLEXURE POLYP C: RECTAL POLYP Gross Description A. HAIR BRENNER, DISTAL SIGMOID POLYP Received in formalin are two soft-chawla tissue fragments, 0.2 and 0.5 cm and are 0.7 x 0.3 x 0.2 cm in aggregate. Entirely 1 cs. BJennifer BRENNER, SPLENIC FLEXURE POLYP Received in formalin are three soft-chawla tissue fragments from 0.3 to 0.5 cm and are 1.1 x 0.3 x 0.2 cm in aggregate. Entirely 1 cs. CJennifer BRENNER, RECTAL POLYP Received in formalin are two soft-chawla tissue fragments, 0.1 and 0.4 cm and are 0.5 x 0.3 x f0.3 cm in aggregate. Entirely 1 cs. jalisha Beaver/vicente:10/28/2024 Microscopic Description A-C. Microscopic examination performed. Processing Lab: [address] [address] Interpretation Performed at [address] [id number] SURGICAL PATHOLOGY CONSULTATION Patient Name: HAIR BRENNER [facility] Rec: [id number] [facility] [employer] [facility] [facility] ANATOMIC PATHOLOGY [address] [place] [id number] Normal [facility] EKG 12 LeadOrdered By: Aurelio Chavez on 10-05-2024 Atrial Rate 74 BPM [employer] Phone: P [place] 22 degrees [employer] Phone: P-R Interval 196 ms [employer] Phone: Q-T Interval 400 ms [employer] Phone: QRS Duration 100 ms [employer] Phone: QTc Calculation (Bazett) 444 ms [employer] Phone: R [place] 25 degrees [employer] Phone: T [place] 26 degrees [employer] Phone: Ventricular Rate 74 BPM [place] [employer] Work Phone: [employer] Phone: EKG 12 Leadon 10-05-2024 Normal sinus rhythm Normal ECG No previous ECGs available Confirmed by Mikayla Chavez ([id number]) on 10/05/2024 1:08:40 PM [facility] RADIOLOGY Mikayla Chavez MD - 10/05/2024 Normal sinus rhythm Normal ECG No previous ECGs available Confirmed by Mikayla Chavez ([id number]) on 10/05/2024 1:08:40 PM [facility] HbA1c (Bld) [Mass fraction]o n 09-29-2024 Interpretation and review of laboratory results Abnormal [facility] [employer] [facility] [employer] Laboratory - Hematology and Cell countson 09-29-2024 HbA1c (Bld) [Mass fraction] 5.9 % [facility] Albumin/Creat Ratio, Urineon 09-01-2024 Albumin,conc.[place] U <12 Normal 0-20 [facility] Comment on above: Performed By: #### C P, CDP, URI #### [facility] [address] [place] [address] [place] [address] Tag Machine Operator: Elvis Griffiths MD #### JALEN SHORE, PSAS #### [facility] [address] [place] [address] Tag Machine Operator: Brandon Mancia MD Albumin/Creat Ratio Can not be calculated Normal 0.0-1 7.0 [facility] Comment on above: Performed By: #### C P, CDP, URI #### [facility] [address] [place] [address] Tag Machine Operator: Elvis Griffiths MD #### JALEN SHORE, PSAS #### [facility] [address] [place] [address] Tag Machine Operator: Brandon Mancia MD Creatinine Conc. 210.0 mg/dL Normal 39.0-259.0 [facility] Comment on above: Result Comment: Refe rence range defined for 1st morning urine Performed By: #### C P, CDP, URI #### [facility] [address] [place] [address] Tag Machine Operator: Elvis Griffiths MD #### LIPR, URNMAB, PSAS #### [facility] [address] [place], [place] [phone] Tag Machine Operator: Brandon Mancia MD Albumin/Creatinine Ratio, Ur ineon 09-01-2024 Albumin DL <= 20 mg/L (U) [Mass/Vol] mg/L 0 - 20 mg/L [facility] Albumin/Creatinine DL <= 20 mg/L (U) [Ratio] Can not be calculated [facility] Creatinine (U) [Mass/Vol] 210 mg/dL 39.0 - 259.0 mg/dL [facility] Comment on above: Reference range defi alie for 1st morning urine [facility] CBC with Auto Differentialon 09-01-2024 Basophils (Bld) [#/Vol] 0.04 10*3/uL [facility] Basophils/100 WBC (Bld) 1 % 0 - 2 % [facility] Eosinophils (Bld) [#/Vol] 0.14 10*3/uL [facility] Eosinophils/100 WBC (Bld) 2 % 1 - 4 % [facility] Erythrocyte distribution width (RBC) [Ratio] 13.1 % 11.8 - 14.4 % [facility] Hematocrit (Bld) [Volume fraction] 43.6 % 40.7 - 50.3 % [facility] Hemoglobin (Bld) [Mass/Vol] 14.8 g/dL 13.0 - 17.0 g/dL [facility] Immature granulocytes (Bld) [#/Vol] [facility] Immature granulocytes/100 WBC (Bld) 0 % 0 [employer] [facility] [employer] Lymphocytes/100 WBC (Bld) 26 % 24 - 43 % [facility] Lymphocytes/100 WBC (Bld) 2.14 % [facility] MCH (RBC) [Entitic mass] 28.9 pg 25.2 - 33.5 pg [facility] MCHC (RBC) [Mass/Vol] 33.9 g/dL 28.4 - 34.8 g/dL [facility] MCV (RBC) [Entitic vol] 85.2 fL 82.6 - 102.9 fL [facility] Monocytes/100 WBC (Bld) 7 % 3 - 12 % [facility] Monocytes/100 WBC (Bld) 0.6 % [facility] Neutrophils/100 WBC (Bld) 64 % 36 - 65 % [facility] Nucleated RBC/100 WBC (Bld) [Ratio] 0 % 0.0 per 100 WBC [facility] Platelet mean volume (Bld) [Entitic vol] 10 fL 8.1 - 13.5 fL [facility] Platelets (Bld) [#/Vol] 212 10*3/uL [facility] RBC (Bld) [#/Vol] 5.12 10*6/uL 4.21 - 5.7 7 m/uL [facility] Segmented neutrophils/100 WBC (Bld) 5.24 % [facility] WBC other (Bld) [#/Vol] 8.2 [facility] CBC with Diffon 09-01-2024 Abs. Basophil 0.04 k/uL Normal 0.00-0.20 [facility] Comment on above: Performed By: #### C P, CDP, URI #### [facility] [address] [place] [address] Tag Machine Operator: Elvis Griffiths MD #### JALEN SHORE, PSAS #### [facility] [address] [place] [address] Tag Machine Operator: Brandon Mancia MD Abs.Imm.Granulocyte <0.03 Normal 0.00-0.30 [facility] Comment on above: Performed By: #### C P, CDP, URI #### [facility] [address] [place] [address] Tag Machine Operator: Elvis Griffihts MD #### LIPR, URNMAB, PSAS #### [place] [address] Tag Machine Operator: Brandon Mancia MD Abs.Neutrophil (Seg) 5.24 k/uL Normal 1.50-8.10 [facility] Comment on above: Performed By: #### C P, CDP, URI #### [address] [place] [address] Tag Machine Operator: Elvis Griffiths MD #### LIPR, URNMAB, PSAS #### [place] [address] Tag Machine Operator: Brandon Mancia MD Basophils/100 WBC (Bld) 1 % Normal 0-2 [facility] Comment on above: Performed By: #### C P, CDP, URI #### [address] [place] [address] Tag Machine Operator: Elvis Griffiths MD #### LIPR, URNMAB, PSAS #### [place] [address] Tag Machine Operator: Brandon Mancia MD Eosinophils (Bld) [#/Vol] 0.14 10*3/uL Normal 0.00-0.44 [facility] Comment on above: Performed By: #### C P, CDP, URI #### [address] [place] [address] Tag Machine Operator: Elvis Griffiths MD #### LIPR, URNMAB, PSAS #### [place] [address] Tag Machine Operator: Brandon Mancia MD Eosinophils/100 WBC (Bld) 2 % Normal 1-4 [facility] Comment on above: Performed By: #### C P, CDP, URI #### [address] [place] [address] Tag Machine Operator: Elvis Griffiths MD #### LIPR, URNMAB, PSAS #### [address] [id number] Tag Machine Operator: Brandon Mancia MD Erythrocyte distribution width (RBC) [Ratio] 13.1 % Normal 11.8-14.4 [facility] Comment on above: Performed By: #### C P, CDP, URI #### [address] [place] [address] Tag Machine Operator: Elvis Griffiths MD #### LIPR, URNMAB, PSAS #### [place] [id number] Tag Machine Operator: Brandon Mancia MD Hematocrit (Bld) [Volume fraction] 43.6 % Normal 40.7-50.3 [facility] Comment on above: Performed By: #### C P, CDP, URI #### [address] [place] [address] Tag Machine Operator: Elvis Griffiths MD #### JALEN SHORE, PSAS #### [place] [id number] Tag Machine Operator: Brandon Mancia MD Hemoglobin (Bld) [Mass/Vol] 14.8 g/dL Normal 13.0-17.0 [facility] Comment on above: Performed By: #### C P, CDP, URI #### [address] [place] [address] Tag Machine Operator: Elvis Griffiths MD #### LIPWilver, KEIKONMAB, PSAS #### [address] [id number] Tag Machine Operator: Brandon Mancia MD Immature granulocytes/100 WBC (Bld) 0 % Normal 0 [facility] Comment on above: Performed By: #### C P, CDP, URI #### [facility] [address] [place], [place] [id number] Tag Machine Operator: Elvis Griffiths MD #### LIPR, URNMAB, PSAS #### [address] [place], [place] [phone] Tag Machine Operator: Brandon Mancia MD Lymphocytes (Bld) [#/Vol] 2.14 10*3/uL Normal 1.10-3.70 [facility] Comment on above: Performed By: #### C P, CDP, URI #### [facility] [address] [place], [place] [id number] Tag Machine Operator: Elvis Griffiths MD #### LIPR, URNMAB, PSAS #### [address] [id number] Tag Machine Operator: Brandon Mancia MD Lymphocytes/100 WBC (Bld) 26 % Normal 24-43 [facility] Comment on above: Performed By: #### C P, CDP, URI #### [facility] [address] [place], [place] [phone] Tag Machine Operator: Elvis Griffiths MD #### LIPR, URNMAB, PSAS #### [address] [id number] Tag Machine Operator: Brandon Mancia MD MCH (RBC) [Entitic mass] 28.9 pg Normal 25.2-33.5 [facility] Comment on above: Performed By: #### C P, CDP, URI #### [facility] [address] [place], [place] [phone] Tag Machine Operator: Elvis Griffiths MD #### LIPR, URNMAB, PSAS #### [address] [place], [place] [phone] Tag Machine Operator: Brandon Mancia MD MCHC (RBC) [Mass/Vol] 33.9 g/dL Normal 28.4-34.8 [facility] Comment on above: Performed By: #### C P, CDP, URI #### [address] [place] 4695783 Tag Machine Operator: Elvis Griffiths MD #### LIPR, URNMAB, PSAS #### [address] [id number] Tag Machine Operator: Brandon Mancia MD MCV (RBC) [Entitic vol] 85.2 fL Normal 82.6-102.9 [facility] Comment on above: Performed By: #### C P, CDP, URI #### [address] [place] 4695783 Tag Machine Operator: Elvis Griffiths MD #### LIPR, URNMAB, PSAS #### [place] [address] Tag Machine Operator: Brandon Mancia MD Monocytes (Bld) [#/Vol] 0.60 10*3/uL Normal 0.10-1.20 [facility] Comment on above: Performed By: #### C P, CDP, URI #### [address] [place] 4695783 Tag Machine Operator: Elvis Griffiths MD #### LIPWilver, KEIKONMAB, PSAS #### [place] [address] Tag Machine Operator: Brandon Mancia MD Monocytes/100 WBC (Bld) 7 % Normal 3-12 [facility] Comment on above: Performed By: #### C P, CDP, URI #### [address] [place] 4695783 Tag Machine Operator: Elvis Griffiths MD #### LIPR, URNMAB, PSAS #### [place] [address] Tag Machine Operator: Brandon Mancia MD Neutrophil (Seg) 64 % Normal 36-65 [facility] Comment on above: Performed By: #### C P, CDP, URI #### [address] [place], [place] 1329183 Tag Machine Operator: Elvis Griffiths MD #### LIPR, URNMAB, PSAS #### [address] [address] Tag Machine Operator: Brandon Mancia MD NRBC Automated 0.0 per 100 WBC Normal 0.0 [facility] Comment on above: Performed By: #### C P, CDP, URI #### [address] [place], [place] [id number] Tag Machine Operator: Elvis Griffiths MD #### LIPWilver, LOUISAAB, PSAS #### [address] [id number] Tag Machine Operator: Brandon Mancia MD Platelet mean volume (Bld) [Entitic vol] 10.0 fL Normal 8.1-13.5 [facility] Comment on above: Performed By: #### C P, CDP, URI #### [address] [place], [place] 1914883 Tag Machine Operator: Elvis Griffiths MD #### LIPLOUISA PettitAB, PSAS #### [address] [phone] Tag Machine Operator: Brandon Mancia MD Platelets (Bld) [#/Vol] 212 10*3/uL Normal 138-453 [facility] Comment on above: Performed By: #### C P, CDP, URI #### [address] [place], [place] [id number] Tag Machine Operator: Elvis Griffiths MD #### LIPR, KEIKONMAB, PSAS #### [address] [address] Tag Machine Operator: Brandon Mancia MD RBC (Bld) [#/Vol] 5.12 10*6/uL Normal 4.21-5.77 [facility] Comment on above: Performed By: #### C P, CDP, URI #### [address] [place], [place] 1408783 Tag Machine Operator: Elvis Griffiths MD #### LIPR, URNMAB, PSAS #### [facility] [address] [place] [address] Tag Machine Operator: Brandon Mancia MD WBC (Bld) [#/Vol] 8.2 10*3/uL Normal 3.5-11.3 [facility] Comment on above: Performed By: #### C P, CDP, URI #### [address] [place] 4695783 Tag Machine Operator: Elvis Griffiths MD #### LIPR, URNMAB, PSAS #### [address] [address] Tag Machine Operator: Brandon Mancia MD Comp Metabolic Profon 2024 Albumin [Mass/Vol] 4.3 g/dL Normal 3.5-5.2 [facility] Comment on above: Performed By: #### C P, CDP, URI #### [address] [place] 4695783 Tag Machine Operator: Elvis Griffiths MD #### LIPR, URNMAB, PSAS #### [address] [place] [address] Tag Machine Operator: Brandon Mancia MD Albumin/Glob Ratio 1.6 Normal 1.0-2.5 [facility] Comment on above: Performed By: #### C P, CDP, URI #### [address] [place] 4695783 Tag Machine Operator: Elvis Griffiths MD #### LIPR, URNMAB, PSAS #### [facility] [address] [place], [place] [phone] Tag Machine Operator: Brandon Mancia MD Alkaline Phos 87 U/L Normal 40-129 [facility] Comment on above: Performed By: #### C P, CDP, URI #### [address] [place], [place] 9684083 Tag Machine Operator: Elvis Griffiths MD #### LIPR, URNMAB, PSAS #### [address] [place], [place] [phone] Tag Machine Operator: Brandon Mancia MD ALT [Catalytic activity/Vol] 21 U/L Normal 10-50 [facility] Comment on above: Performed By: #### C P, CDP, URI #### [address] [place] [id number] Tag Machine Operator: Elvis Griffiths MD #### LIPR, URNMAB, PSAS #### [address] [address] [place], [place] [id number] Tag Machine Operator: Brandon Mancia MD Anion gap [Moles/Vol] 14 mmol/L Normal 9-16 [facility] Comment on above: Performed By: #### C P, CDP, URI #### [address] [place] 4695783 Tag Machine Operator: Elvis Griffiths MD #### LIPR, URNMAB, PSAS #### [facility] [address] [place], [place] [phone] Tag Machine Operator: Brandon Mancia MD AST [Catalytic activity/Vol] 21 U/L Normal 10-50 [facility] Comment on above: Performed By: #### C P, CDP, URI #### [address] [place] [address] Tag Machine Operator: Elvis Griffiths MD #### LIPR, URNMAB, PSAS #### [address] [place], [place] [phone] Tag Machine Operator: Brandon Mancia MD Bilirubin [Mass/Vol] 0.5 mg/dL Normal 0.00-1.20 [facility] Comment on above: Performed By: #### C P, CDP, URI #### [address] [place] [address] Tag Machine Operator: Elvis Griffiths MD #### LIPR, URNMAB, PSAS #### [address] [id number] Tag Machine Operator: Brandon Mancia MD BUN/CRE Ratio 18 Normal 9-20 [facility] Comment on above: Performed By: #### C P, CDP, URI #### [address] [place] [id number] Tag Machine Operator: Elvis Griffiths MD #### LIPR, URNMAB, PSAS #### [address] [id number] Tag Machine Operator: Brandon Mancia MD Calcium [Mass/Vol] 8.7 mg/dL Normal 8.6-10.4 [facility] Comment on above: Performed By: #### C P, CDP, URI #### [address] [place] [address] Tag Machine Operator: Elvis Griffiths MD #### LIPR, URNMAB, PSAS #### [address] [id number] Tag Machine Operator: Brandon Mancia MD Chloride [Moles/Vol] 103 mmol/L Normal 98-107 [facility] Comment on above: Performed By: #### C P, CDP, URI #### [address] [place] [address] Tag Machine Operator: Elvis Griffiths MD #### JALEN SHORE, PSAS #### [place] [address] [place], [place] [id number] Tag Machine Operator: Brandon Mancia MD CO2 [Moles/Vol] 24 mmol/L Normal 20-31 [facility] Comment on above: Performed By: #### C P, CDP, URI #### [facility] [address] [place] [address] [place] [address] Tag Machine Operator: Elvis Griffiths MD #### JALEN SHORE, PSAS #### [place] [place], [place] [phone] Tag Machine Operator: Brandon Mancia MD Creatinine [Mass/Vol] 0.8 mg/dL Normal 0.70-1.20 [facility] Comment on above: Performed By: #### C P, CDP, URI #### [address] [place] [address] Tag Machine Operator: Elvis Griffiths MD #### JALEN SHORE, PSAS #### [place] [place], [place] [phone] Tag Machine Operator: Brandon Mancia MD GFR/1.73 sq M.predicted among non-blacks MDRD (S/P/Bld) [Vol rate/Area] mL/min/{1.73_m2} Normal >60 [facility] Comment on above: Result Comment: These results are not intended for use in patients <18 years of age. eGFR results are calculated without a race factor using the 2020 CKD-EPI equation. Careful clinical correlation is recommended, particularly when comparing to results calculated using previous equations. The CKD-EPI equation is less accurate in patients with extremes of muscle mass, extra-renal metabolism of creatine, excessive creatine ingestion, or following therapy that affects renal tubular secretion. Performed By: #### C P, CDP, URI #### [address] [place] [address] Tag Machine Operator: Elvis Griffiths MD #### LIPR, URNMAB, PSAS #### [place] [address] [place], [place] [id number] Tag Machine Operator: Brandon Mancia MD Glucose [Mass/Vol] 108 mg/dL High 74-99 [facility] Comment on above: Performed By: #### C P, CDP, URI #### [address] [place], [place] [phone] Tag Machine Operator: Elvis Griffiths MD #### LIPR, URNMAB, PSAS #### [address] [phone] Tag Machine Operator: Brandon Mancia MD Potassium [Moles/Vol] 4.1 mmol/L Normal 3.7-5.3 [facility] Comment on above: Performed By: #### C P, CDP, URI #### [address] [place] [address] Tag Machine Operator: Elvis Griffiths MD #### JALEN SHORE, PSAS #### [address] [address] Tag Machine Operator: Brandon Mancia MD Protein [Mass/Vol] 6.9 g/dL Normal 6.6-8.7 [facility] Comment on above: Performed By: #### C P, CDP, URI #### [address] [place] [address] Tag Machine Operator: Elvis Griffiths MD #### LIPWilver, URNMAB, PSAS #### [address] [id number] Tag Machine Operator: Brandon Mancia MD Sodium [Moles/Vol] 141 mmol/L Normal 136-145 [facility] Comment on above: Performed By: #### C P, CDP, URI #### [facility] [address] [place] [address] Tag Machine Operator: Elvis Griffiths MD #### LIPR, URNMAB, PSAS #### [facility] [address] [place] [address] Tag Machine Operator: Brandon Mancia MD Urea nitrogen [Mass/Vol] 14 mg/dL Normal 6-20 [facility] Comment on above: Performed By: #### C P, CDP, URI #### [facility] [address] [place] [address] Tag Machine Operator: Elvis Griffiths MD #### LIPR, URNMAB, PSAS #### [facility] [address] [place] [address] Tag Machine Operator: Brandon Mancia MD Comprehensive Metabolic Pane [facility] 09-01-2024 Albumin [Mass/Vol] 4.3 g/dL 3.5 - 5.2 g/dL [facility] Albumin/Globulin [Mass ratio] 1.6 {ratio} 1.0 - 2.5 [facility] ALP [Catalytic activity/Vol] 87 U/L 40 - 129 U/L [facility] ALT [Catalytic activity/Vol] 21 U/L 10 - 50 U/L [facility] Anion gap [Moles/Vol] 14 mmol/L 9 - 16 mmol/L [facility] AST [Catalytic activity/Vol] 21 U/L 10 - 50 U/L [facility] Bilirubin [Mass/Vol] 0.5 mg/dL 0.00 - 1.20 mg/dL [facility] Calcium [Mass/Vol] 8.7 mg/dL 8.6 - 10. 4 mg/dL [facility] Chloride [Moles/Vol] 103 mmol/L 98 - 107 mmol/L [facility] CO2 [Moles/Vol] 24 mmol/L 20 - 31 mmol/L [facility] Creatinine [Mass/Vol] 0.8 mg/dL 0.70 - 1.20 mg/dL [facility] Est, Glom Filt Rate - PINF [facility] Comment on above: These results are not intended for use in patients <18 years of age. eGFR results are calculated without a race factor using the 2020 CKD-EPI equation. Careful clinical correlation is recommended, particularly when comparing to results calculated using previous equations. The CKD-EPI equation is less accurate in patients with extremes of muscle mass, extra-renal metabolism of creatine, excessive creatine ingestion, or following therapy that affects renal tubular secretion. Glucose [Mass/Vol] 108 mg/dL High 74 - 99 mg/dL [facility] Interpretation and review of laboratory results Abnormal [facility] Potassium [Moles/Vol] 4.1 mmol/L 3.7 - 5.3 mmol/L [facility] Protein [Mass/Vol] 6.9 g/dL 6.6 - 8.7 g/dL [facility] Sodium [Moles/Vol] 141 mmol/L 136 - 145 mmol/L [facility] Urea nitrogen [Mass/Vol] 14 mg/dL 6 - 20 mg/dL [facility] Urea nitrogen/Creatinine [Mass ratio] 18 mg/mg 9 - 20 [facility] Lipid Panelon 09-01-2024 Cholesterol [Mass/Vol] 163 mg/dL 0 - 199 mg/dL [facility] Comment on above: Cholesterol Guidelines: <200 Desirable 200-240 Borderline >240 Undesirable Cholesterol in HDL [Mass/Vol] 28 mg/dL Low 40 - PINF mg/dL [facility] Comment on above: HDL Guidelines: <40 Undesirable 40-59 Borderline >59 Desirable Cholesterol in LDL [Mass/Vol] 117 mg/dL High 0 - 100 mg/dL [facility] Comment on above: LDL Guidelines: <100 Desirable 100-129 Near to/above Desirable 130-159 Borderline >159 Undesirable Direct (measured) LDL and calculated LDL are not interchangeable tests. Cholesterol in VLDL [Mass/Vol] 18 mg/dL 1 - 30 mg/dL [facility] Cholesterol.total/C holesterol in HDL [Mass ratio] 5.8 {ratio} High NINF - 5.0 [facility] Interpretation and review of laboratory results Abnormal [facility] Triglyceride [Mass/Vol] 90 mg/dL NINF - 150 mg/dL [facility] Comment on above: Triglyceride Guidelines: <150 Desirable 150-199 Borderline 200-499 High >499 Very high Based on AHA Guidelines for fasting triglyceride, December 2011. [facility] Lipid Profileon 09-01-2024 Cholesterol [Mass/Vol] 163 mg/dL Normal 0-199 [facility] Comment on above: Result Comment: Cholesterol Guidelines: <200 Desirable 200-240 Borderline >240 Undesirable Performed By: #### C P, CDP, URI #### [facility] [address] [place] [address] [address] [place], [place] [id number] Tag Machine Operator: Elvis Griffiths MD #### LIPJALEN Pettit, PSAS #### [facility] [address] [place] [address] [id number] Tag Machine Operator: Brandon Mancia MD Cholesterol in HDL [Mass/Vol] 28 mg/dL Low >40 [facility] Comment on above: Result Comment: HDL Guidelines: <40 Undesirable 40-59 Borderline >59 Desirable Performed By: #### C P, CDP, URI #### [facility] [address] [place] [address] [address], [place] [id number] Tag Machine Operator: Elvis Griffiths MD #### JALEN SHORE, PSAS #### [address] [id number] Tag Machine Operator: Brandon Mancia MD Cholesterol in LDL [Mass/Vol] 117 mg/dL High 0-100 [facility] Comment on above: Result Comment: LDL Guidelines: <100 Desirable 100-129 Near to/above Desirable 130-159 Borderline >159 Undesirable Direct (measured) LDL and calculated LDL are not interchangeable tests. Performed By: #### C P, CDP, URI #### [address] [place] [address] Tag Machine Operator: Elvis Griffiths MD #### LIPWilver, URNM, PSAS #### [facility] [place], [place] [id number] Tag Machine Operator: Brandon Mancia MD Cholesterol in VLDL [Mass/Vol] 18 mg/dL Normal 1-30 [facility] Comment on above: Performed By: #### C P, CDP, URI #### [facility] [address] [place] [id number] Tag Machine Operator: Elvis Griffiths MD #### LIPR, JALEN, PSAS #### [address] [place], [place] [id number] Tag Machine Operator: Brandon Mancia MD Cholesterol.total/C holesterol in HDL [Mass ratio] 5.8 {ratio} High <5.0 [facility] Comment on above: Performed By: #### C P, ABEBE, URI #### [facility] [address] [place] [address] [address] [place] [id number] Tag Machine Operator: Elvis Griffiths MD #### JALEN SHORE, PSAS #### [address] [id number] Tag Machine Operator: Brandon Mancia MD Triglyceride [Mass/Vol] 90 mg/dL Normal <150 [facility] Comment on above: Result Comment: Triglyceride Guidelines: <150 Desirable 150-199 Borderline 200-499 High >499 Very high Based on AHA Guidelines for fasting triglyceride, December 2011. Performed By: #### C P, ABEBE, URI #### [facility] [address] [place] [address] [address] [place] [id number] Tag Machine Operator: Elvis Griffiths MD #### LIPWilver, JALEN, PSAS #### [address] [place], [place] [id number] Tag Machine Operator: Brandon Mancia MD PT CBC WITH DIFFon 025 Basophils/100 WBC (Bld) 1 % 0 - 2 % [facility] Eosinophils/100 WBC (Bld) 2 % 1 - 4 % [facility] Erythrocyte distribution width (RBC) [Ratio] 13.1 % 11.8 - 14.4 % [facility] Hematocrit (Bld) [Volume fraction] 43.6 % 40.7 - 50.3 % [facility] Hemoglobin (Bld) [Mass/Vol] 14.8 g/dL 13.0 - 17.0 g/dL [facility] Immature granulocytes/100 WBC (Bld) 0 % 0 [facility] Lymphocytes/100 WBC (Bld) 26 % 24 - 43 % [facility] MCH (RBC) [Entitic mass] 28.9 pg 25.2 - 33.5 pg [facility] MCHC (RBC) [Mass/Vol] 33.9 g/dL 28.4 - 34.8 g/dL [facility] MCV (RBC) [Entitic vol] 85.2 fL 82.6 - 102.9 fL [facility] MHPT ABS. BASOPHIL 0.04 [facility]althcare MHPT ABS. EOSINOPHIL 0.14 [facility] MHPT ABS. LYMPH 2.14 [facility] thcare MHPT ABS. MONOCYTE 0.6 [facility] ealthcare MHPT ABS.IMM.GRANULOCYTE <0.03 [facility] MH[facility] ABS.NEUTROPHIL (SEG) 5.24 [facility] MHPT NRBC AUTOMATED 0 0.0 per 100 WBC [facility] MHPT PLATELET COUNT 212 [facility] MHPT WBC COUNT 8.2 [facility] hcare Monocytes/100 WBC (Bld) 7 % 3 - 12 % [facility] Platelet mean volume (Bld) [Entitic vol] 10 fL 8.1 - 13.5 fL [facility] RBC (Bld) [#/Vol] 5.12 10*6/uL 4.21 - 5.7 7 m/uL [facility] Segmented neutrophils/100 WBC (Bld) 64 % 36 - 65 % [facility] Original Ordering Provider: [facility] No Panel Informationon 09-01 [facility] PSA Screeningon 09-01-2024 Prostate specific Ag [Mass/Vol] 0.5 ng/mL 0.00 - 4.00 ng/mL [facility] Comment on above: The [employer] ECLIA as say is used. Results obtained with different assay methods cannot be used interchangeably. [facility] PSA, Screeningon 09-01-2024 Prostatic Spec. Ag 0.50 ng/mL Normal 0.00-4.00 [facility] Comment on above: Result Comment: The [employer]ha ECLIA assay is used. Results obtained with different assay methods cannot be used interchangeably. Performed By: #### C P, CDP, URI #### [facility] [address] [place] [address] Tag Machine Operator: Elvis Griffiths MD #### LIPR, URNMAB, PSAS #### [address] [place], [place] [id number] Tag Machine Operator: Brandon Mancia MD Uric Acidon 09-01-2024 Urate [Mass/Vol] 6.1 mg/dL 3.4 - 7.0 mg/dL [facility] Urate [Mass/Vol] 6.1 mg/dL Normal 3.4-7.0 [facility] Comment on above: Performed By: #### C P, CDP, URI #### [facility] [address] [place] [address] [place] [address] Tag Machine Operator: Elvis Griffiths MD #### MONE, URNM, PSAS #### [facility] [address] [place] [address] Tag Machine Operator: Brandon Mancia MD Urinalysison 09-01-2024 Bilirubin Ql (U) Negative NEGATIVE [facility] Clarity (U) Clear Clear [facility] Color (U) Yellow Yellow [facility] Glucose Test strip (U) [Mass/Vol] Negative NEGATIVE mg/dL [facility] Hemoglobin Auto test strip Ql (U) Negative NEGATIVE [facility] [employer] [facility] Interpretation and review of laboratory results Abnormal [facility] Ketones (U) [Mass/Vol] Negative NEGATIVE mg/dL [facility] Leukocyte esterase Test strip Ql (U) Negative NEGATIVE [facility] Nitrite Ql (U) Negative NEGATIVE [facility] pH (U) 6 [pH] 5.0 - 9.0 [facility] Protein (U) [Mass/Vol] Negative NEGATIVE mg/dL [facility] Specific gravity (U) [Rel density] 1.025 High 1.010 - 1.020 [facility] Urobilinogen Qn (U) Normal 0.0 - 1. 0 EU/dL [facility] Urinalysis, Routineon 2024 Bilirubin, SemiQt,Ur Negative Normal NEG [facility] Comment on above: Performed By: #### U A #### [facility] [address] [place] [address] [place] [address] Tag Machine Operator: Elvis Griffiths MD Blood, Urine Negative Normal NEG [facility] Comment on above: Performed By: #### U A #### [address] [place] [address] Tag Machine Operator: Elvis Griffiths MD Clarity (U) Clear Normal CLEAR [facility] Comment on above: Performed By: #### U A #### [address] [place], [id number] Tag Machine Operator: Elvis Griffiths MD Color (U) Yellow Normal YEL [facility] Comment on above: Performed By: #### U A #### [address] [place], [facility] Tag Machine Operator: Elvis Griffiths MD Glucose Ql (U) Negative Normal NEG [facility] Comment on above: Performed By: #### U A #### [facility] [address] [place] [address] Dr. [place], [id number] Tag Machine Operator: Elvis Griffiths MD Ketones Ql (U) Negative Normal NEG [facility] Comment on above: Performed By: #### U A #### [address] [place] [address] Tag Machine Operator: Elvis Griffiths MD Leukocyte esterase Test strip Ql (U) Negative Normal NEG [facility] Comment on above: Performed By: #### U A #### [facility] [address] [place] [address] Dr. [place], [place] [id number] Tag Machine Operator: Elvis Griffiths MD Nitrite,Ur Negative Normal NEG [facility] Comment on above: Performed By: #### U A #### [facility] [address] [place] [address] [place] [address] Tag Machine Operator: Elvis Griffiths MD PH,Ur 6.0 Normal 5.0-9.0 [facility] Comment on above: Performed By: #### U A #### [facility] [address] [place], [place] [id number] Tag Machine Operator: Elvis Griffiths MD Protein Ql (U) Negative Normal NEG [facility] Comment on above: Performed By: #### U A #### [facility] [address] [place] [address] Dr. [place], [place] [id number] Tag Machine Operator: Elvis Griffiths MD Spec. Randolph,Ur 1.025 High 1.010-1.020 [facility] Comment on above: Performed By: #### U A #### [facility] [address] [place] [address] [place] [address] Tag Machine Operator: Elvis Griffiths MD Urobilinogen,Ur Normal Normal 0.0-1.0 [facility] Comment on above: Performed By: #### U A #### [facility] [address] [place] [address] [place] [address] Tag Machine Operator: Elvis Griffiths MD HbA1c (Bld) [Mass fraction]o n 06-29-2024 Interpretation and review of laboratory results Abnormal [facility] - Hematology and Cell countson 06-29-2024 HbA1c (Bld) [Mass fraction] 5.90 % [facility] AMYLASEon 07-25-2022 Amylase [Catalytic activity/Vol] 32 U/L Normal 25-115 [facility] Comment on above: Performed By: #### L IPA, JORDON, CMP #### [facility] [address] [place] [id number] Brady Sanders CBC AUTO DIFFon 07-25-2022 BASO # 0.0 103/ul Normal 0.0-0.1 [facility] Comment on above: Performed By: #### C BC #### [facility] [address] [place] [address] [address] Brady Sanders Basophils/100 WBC (Bld) 0.4 % Normal 0.2-2.0 [facility] Comment on above: Performed By: #### C BC #### [facility] [address] [place] [address] [address] Brady Sanders EO # 0.1 103/ul Normal 0.0-0.7 [facility] Comment on above: Performed By: #### C BC #### [facility] [address] [place] [address] Dr. Brady Sanders Eosinophils/100 WBC (Bld) 1.5 % Normal 0.9-7.0 [facility] Comment on above: Performed By: #### C BC #### [facility] [address] [place] [address] Dr. Brady Sanders Erythrocyte distribution width (RBC) [Ratio] 13.2 % Normal 11.0-15.0 [facility] Comment on above: Performed By: #### C BC #### [facility] [address] [place] [address] Dr. Brady Sanders Hematocrit (Bld) [Volume fraction] 41.0 % Critically low 42.0-54.0 [facility] Comment on above: Performed By: #### C BC #### [facility] [address] [place] [address] Dr. Brady Sanders Hemoglobin (Bld) [Mass/Vol] 13.8 g/dL Critically low 14.0-18.0 [facility] Comment on above: Performed By: #### C BC #### [facility] [address] [place] [address] Dr. Brady Sanders IG # 0.03 10e3/ul Normal 0.00-0.03 [facility] Comment on above: Performed By: #### C BC #### [facility] [address] [place] [address] Dr. Brady Sanders IG % 0.4 % Normal 0.0-0.5 [facility] Comment on above: Performed By: #### C BC #### [facility] [address] [place] [address] Dr. Brady Sanders LYMPH # 1.8 103/ul Normal 1.2-3.8 [facility] Comment on above: Performed By: #### C BC #### [facility] [address] [place] [address] Dr. Brady Sanders Lymphocytes/100 WBC (Bld) 21.4 % Normal 20.5-60.0 [facility] Comment on above: Performed By: #### C BC #### [facility] [address] [place] [address] Dr. Brady Sanders MANUAL DIFF REQ NO Normal [facility] Comment on above: Performed By: #### C BC #### [facility] [address] [place] [address] Dr. Brady Sanders MCH (RBC) [Entitic mass] 28.1 pg Normal 25.9-34.0 [facility] Comment on above: Performed By: #### C BC #### [facility] [address] [place] [address] Dr. Brady Sanders MCHC (RBC) [Mass/Vol] 33.7 g/dL Normal 29.9-35.2 [facility] Comment on above: Performed By: #### C BC #### [facility] [address] [place] [address] Dr. Brady Sanders MCV (RBC) [Entitic vol] 83.5 fL Normal 80.0-94.0 [facility] Comment on above: Performed By: #### C BC #### [facility] [address] [place] [address] Dr. Brady Sanders MONO # 0.5 103/ul Normal 0.3-0.8 [facility] Comment on above: Performed By: #### C BC #### [facility] [address] [place] [address] Dr. Brady Sanders Monocytes/100 WBC (Bld) 6.2 % Normal 1.7-12.0 [facility] Comment on above: Performed By: #### C BC #### [facility] [address] [place] [address] Dr. Brady Sanders NEUT # 5.9 103/ul Normal 1.4-6.5 [facility] Comment on above: Performed By: #### C BC #### [facility] [address] [place] [address] Dr. Brady Sanders Neutrophils/100 WBC (Bld) 70.1 % Normal 43.0-75.0 [facility] Comment on above: Performed By: #### C BC #### [facility] [address] [place] [address] Dr. Brady Sanders Platelet mean volume (Bld) [Entitic vol] 9.6 fL Normal 9.5-13.5 [facility] Comment on above: Performed By: #### C BC #### [facility] [address] [place] [address] Dr. Brady Sanders PLT 216 103/ul Normal 150-450 [facility] Comment on above: Performed By: #### C BC #### [facility] [address] [place] [address] Dr. Brady Sanders RBC 4.91 106/ul Normal 4.70-6.10 [facility] Comment on above: Performed By: #### C BC #### [facility] [address] [place] [address] Dr. Brady Sanders WBC 8.4 103/ul Normal 4.0-11.0 [facility] Comment on above: Performed By: #### C BC #### [facility] [address] [place] [address] ABD/PELV W CONon [...] by: KAVIN BRIONES Date: 2022-07-25 10:58 Normal [facility] LIPASEon 07-25-2022 Lipase [Catalytic activity/Vol] 96.0 U/L Normal 73.0-393.0 [facility] Comment on above: Performed By: #### L JORDON GARRETT CMP #### [facility] [address] [place] [address] Dr. Brady Sanders PROF 14(COMP METB)on 023 Albumin [Mass/Vol] 3.4 g/dL Normal 3.4-5.0 [facility] Comment on above: Performed By: #### L JORDON GARRETT CMP #### [facility] [address] [place] [address] Dr. Brady Sanders Albumin/Globulin [Mass ratio] 0.9 {ratio} Normal [facility] Comment on above: Performed By: #### L JORDON GARRETT CMP #### [facility] [address] [place] [address] Dr. Brady Sanders ALP [Catalytic activity/Vol] 88 U/L Normal 46-116 [facility] Comment on above: Performed By: #### L JORDON GARRETT CMP #### [facility] [address] [address] [address] Brady Sanders ALT [Catalytic activity/Vol] 27 U/L Normal 16-63 [facility] Comment on above: Performed By: #### L JORDON GARRETT, CMP #### [facility] [address] [place] [address] Dr. Brady Sanders Anion gap [Moles/Vol] 9.2 mmol/L Normal [facility] Comment on above: Performed By: #### L JORDON GARRETT, CMP #### [facility] [address] [place] [address] Dr. Brady Sanders AST [Catalytic activity/Vol] 18 U/L Normal 15-37 [facility] Comment on above: Performed By: #### L JORDON GARRETT, CMP #### [facility] [address] [place] [address] Dr. Brady Sanders Bilirubin [Mass/Vol] 0.4 mg/dL Normal 0.2-1.0 [facility] Comment on above: Performed By: #### L JORDON GARRETT, CMP #### [facility] [address] [place] [address] Dr. Brady Sanders Calcium [Mass/Vol] 8.5 mg/dL Normal 8.5-10.1 [facility] Comment on above: Performed By: #### L JORDON GARRETT, CMP #### [facility] [address] [place] [address] Dr. Brady Sanders Chloride [Moles/Vol] 103 mmol/L Normal 98-107 [facility] Comment on above: Performed By: #### L JORDON GARRETT, CMP #### [facility] [address] [place] [address] Dr. Brady Sanders CO2 [Moles/Vol] 31.1 mmol/L Normal 21.0-32.0 [facility] Comment on above: Performed By: #### L JORDON GARRETT, CMP #### [facility] [address] [place] [address] Dr. Brady Sanders Creatinine [Mass/Vol] 0.79 mg/dL Normal 0.70-1.30 [facility] Comment on above: Performed By: #### L JORDON GARRETT, CMP #### [facility] [address] [address] [address] Brady Sanders EGFR-AF MOLDOVAN >60 Normal >=60 [facility] Comment on above: Performed By: #### L JORDON GARRETT, CMP #### [facility] [address] [address] [address] Brady Sanders EGFR-NON AF MOLDOVAN >60 Normal >=60 [facility] Comment on above: Performed By: #### L JORDON GARRETT, CMP #### [facility] [address] [address] [address] Brady Sanders Globulin (S) [Mass/Vol] 3.8 g/dL Normal [facility] Comment on above: Performed By: #### L JORDON GARRETT, CMP #### [facility] [address] [address] [address] Brady Sanders Glucose [Mass/Vol] 140 mg/dL Critically high 74-106 [facility] Comment on above: Performed By: #### L JORDON GARRETT, CMP #### [facility] [address] [address] [address] Brady Sanders Potassium [Moles/Vol] 3.3 mmol/L Critically low 3.5-5.1 [facility] Comment on above: Performed By: #### L JORDON GARRETT, CMP #### [facility] [address] [address] [address] Brady Sanders Protein [Mass/Vol] 7.2 g/dL Normal 6.4-8.2 [facility] Comment on above: Performed By: #### L JORDON GARRETT, CMP #### [facility] [address] [address] [address] Brady Sanders Sodium [Moles/Vol] 140 mmol/L Normal 136-145 [facility] Comment on above: Performed By: #### L JORDON GARRETT, CMP #### [facility] [address] [address] [address] Brady Sanders Urea nitrogen [Mass/Vol] 10.0 mg/dL Normal 7.0-18.0 [facility] Comment on above: Performed By: #### L GERRY, JORDON, CMP #### [facility] [facility] [address] [place], [place] [address] Dr. Brady Sanders Urea nitrogen/Creatinine [Mass ratio] 12.7 mg/mg Normal [facility] Comment on above: Performed By: #### L IPA, JORDON, CMP #### [facility] [address] [place], [place] [address] Dr. Brady Sanders NM HEPATOBILIARY SCAN W EFon 07-24-2022 NM HEPATOBILIARY SCAN W EF HIDA SCAN WITH GALLBLADDER EJECTION FRACTION HISTORY: Abdominal Pain. COMPARISON: Ultrasound 07/11/2022. METHOD: Following IV injection of 5. mCi of [id number] , anterior imaging of the abdomen was [...] by: KIM JARRETT Date: 2022-07-24 09:14 Normal [facility] US SINGLE QUAD RT UPPERon US [...] for patient's symptoms. Electronically authenticated by: MIKAYLA COVINGOTN Date: 2022-07-11 11:55 Normal [facility] GLYCOHEMOGLOBIN A1Con 2022 ADA RECOMMENDATION SEE BELOW Normal [facility] Comment on above: Result Comment: ADA RECOMMENDED LIMIT 4.0 - 6.0 ADA THERAPEUTIC TARGET < 7.0 ACTION SUGGESTED > 7.0 Performed By: #### A 1C #### [facility] [address] [place] [address] Dr. Brady Sanders Glucose [Mass/Vol] 143 mg/dL Normal [facility] Comment on above: Performed By: #### A 1C #### [facility] [address] [place] [address] Dr. Brady Sanders HbA1c (Bld) [Mass fraction] 6.6 % Critically high 4.5-6.2 [facility] Comment on above: Performed By: #### A 1C #### [facility] [address] [place] [address] Dr. Brady Sanders COVID + FLU Quick Testingon 03-13-2022 SARS-CoV-2 (COVID-19) RNA ADELINA+probe Ql (Unsp spec) Positive [facility] [employer] Other COVID + FLU Quick Testing Negative [employer] [facility] [employer] Other CBC AUTO DIFFon 03-07-2022 BASO # 0.0 103/ul Normal 0.0-0.1 [facility] Comment on above: Performed By: #### C BC #### [facility] [address] [place] [address] Dr. Brady Sanders Basophils/100 WBC (Bld) 0.5 % Normal 0.2-2.0 [facility] Comment on above: Performed By: #### C BC #### [facility] [address] [place] [address] Dr. Brady Sanders EO # 0.1 103/ul Normal 0.0-0.7 [facility] Comment on above: Performed By: #### C BC #### [facility] [address] [place] [address] Dr. Brady Sanders Eosinophils/100 WBC (Bld) 1.8 % Normal 0.9-7.0 [facility] Comment on above: Performed By: #### C BC #### [facility] [address] [place] [address] Dr. Brady Sanders Erythrocyte distribution width (RBC) [Ratio] 13.5 % Normal 11.0-15.0 [facility] Comment on above: Performed By: #### C BC #### [facility] [address] [place] [address] Dr. Brady Sanders Hematocrit (Bld) [Volume fraction] 46.5 % Normal 42.0-54.0 [facility] Comment on above: Performed By: #### C BC #### [facility] [address] [place] [address] Dr. Brady Sanders Hemoglobin (Bld) [Mass/Vol] 15.6 g/dL Normal 14.0-18.0 [facility] Comment on above: Performed By: #### C BC #### [facility] [address] [place] [address] Dr. Brady Sanders IG # 0.02 10e3/ul Normal 0.00-0.03 [facility] Comment on above: Performed By: #### C BC #### [facility] [address] [place] [address] Dr. Brady Sanders IG % 0.3 % Normal 0.0-0.5 [facility] Comment on above: Performed By: #### C BC #### [facility] [address] [place] [address] Dr. Brady Sanders LYMPH # 1.8 103/ul Normal 1.2-3.8 [facility] Comment on above: Performed By: #### C BC #### [facility] [address] [place] [address] Dr. Brady Sanders Lymphocytes/100 WBC (Bld) 22.3 % Normal 20.5-60.0 [facility] Comment on above: Performed By: #### C BC #### [facility] [address] [place] [address] Dr. Brady Sanders MANUAL DIFF REQ NO Normal [facility] Comment on above: Performed By: #### C BC #### [facility] [address] [place] [address] Dr. Brady Sanders MCH (RBC) [Entitic mass] 28.0 pg Normal 25.9-34.0 [facility] Comment on above: Performed By: #### C BC #### [facility] [address] [place] [address] Dr. Brady Sanders MCHC (RBC) [Mass/Vol] 33.5 g/dL Normal 29.9-35.2 [facility] Comment on above: Performed By: #### C BC #### [facility] [address] [place] [address] Dr. Brady Sanders MCV (RBC) [Entitic vol] 83.3 fL Normal 80.0-94.0 [facility] Comment on above: Performed By: #### C BC #### [facility] [address] [place] [address] Dr. Brady Sanders MONO # 0.5 103/ul Normal 0.3-0.8 [facility] Comment on above: Performed By: #### C BC #### [facility] [address] [place] [address] Dr. Brady Sanders Monocytes/100 WBC (Bld) 6.1 % Normal 1.7-12.0 [facility] Comment on above: Performed By: #### C BC #### [facility] [address] [place] [address] Dr. Brady Sanders NEUT # 5.4 103/ul Normal 1.4-6.5 [facility] Comment on above: Performed By: #### C BC #### [facility] [address] [place] [address] Dr. Brady Sanders Neutrophils/100 WBC (Bld) 69.0 % Normal 43.0-75.0 [facility] Comment on above: Performed By: #### C BC #### [facility] [address] [place] [address] Dr. Brady Sanders Platelet mean volume (Bld) [Entitic vol] 10.3 fL Normal 9.5-13.5 [facility] Comment on above: Performed By: #### C BC #### [facility] [address] [place] [address] [address] Brady Sanders PLT 230 103/ul Normal 150-450 [facility] Comment on above: Performed By: #### C BC #### [facility] [address] [place] [address] [address] Brady Sanders RBC 5.58 106/ul Normal 4.70-6.10 [facility] Comment on above: Performed By: #### C BC #### [facility] [address] [place] [address] [address] Brady Sanders WBC 7.9 103/ul Normal 4.0-11.0 [facility] Comment on above: Performed By: #### C BC #### [facility] [address] [place] [address] Dr. Brady Sanders GLYCOHEMOGLOBIN A1Con 2021 ADA RECOMMENDATION SEE BELOW Normal [facility] Comment on above: Result Comment: ADA RECOMMENDED LIMIT 4.0 - 6.0 ADA THERAPEUTIC TARGET < 7.0 ACTION SUGGESTED > 7.0 Performed By: #### A 1C #### [facility] [address] [place] [address] Dr. Brady Sanders Glucose [Mass/Vol] 200 mg/dL Normal [facility] Comment on above: Performed By: #### A 1C #### [facility] [address] [place] [address] Dr. Brady Sanders HbA1c (Bld) [Mass fraction] 8.6 % Critically high 4.5-6.2 [facility] Comment on above: Performed By: #### A 1C #### [facility] [address] [place] [address] Dr. Brady Sanders LIPID PROFILEon 03-07-2022 CHOL-HDL RATIO NORM SEE BELOW Normal [facility] Comment on above: Result Comment: 3.3 - 4.4 LOW RISK 4.4 - 7.1 AVERAGE RISK 7.1 - 11.0 MODERATE RISK >11.0 HIGH RISK Performed By: #### L IPA, JORDON, CMP #### [facility] [address] [place] [address] Dr. Brady Sanders Cholesterol [Mass/Vol] 136 mg/dL Normal <=200 [facility] Comment on above: Performed By: #### L JORDON GARRETT, CMP #### [facility] [address] [place] [address] [address] Brady Sanders Cholesterol in HDL [Mass/Vol] 26 mg/dL Critically low 40-60 [facility] Comment on above: Performed By: #### L JORDON GARRETT, CMP #### [facility] [address] [place] [address] [address] Brady Sanders Cholesterol in LDL [Mass/Vol] 77.2 mg/dL Normal [facility] Comment on above: Performed By: #### L JORDON GARRETT, CMP #### [facility] [address] [place] [address] [address] Brady Sanders Cholesterol.total/C holesterol in HDL [Mass ratio] 5.2 {ratio} Normal [facility] Comment on above: Performed By: #### L JORDON GARRETT, CMP #### [facility] [address] [place] [address] [address] Brady Sanders HDL NORMAL > or = 60 mg/dl - LO W CARDIOVASCULAR RISK <40 mg/dl - HIGH CARDIOVASCULAR RISK Normal [facility] Comment on above: Performed By: #### L JORDON GARRETT, CMP #### [facility] [address] [place] [address] [address] Brady aSnders LDL CALC NORMAL SEE BELOW Normal [facility] Comment on above: Result Comment: <100 mg/dl OPTIMAL 100 - 129 mg/dl NEAR OR ABOVE OPTIMAL 130 - 159 mg/dl BORDERLINE HIGH 160 - 189 mg/dl HIGH >190 mg/dl VERY HIGH Performed By: #### L JORDON GARRETT, CMP #### [facility] [address] [place] [address] [address] Brady Sanders Triglyceride [Mass/Vol] 164 mg/dL Critically high <=150 [facility] Comment on above: Performed By: #### L JORDON GARRETT, CMP #### [facility] [address] [place] [address] [address] Brady Sadners VLDL CALC 32.8 mg/dL Normal [facility] Comment on above: Performed By: #### L IPA, JORDON, CMP #### [facility] [address] [place] [address] [address] Brady Sanders MICROALBUMIN, RAND URon 02-21 mALB <1.3 Normal <=30.0 [facility] Comment on above: Performed By: #### L IPA, JORDON, CMP #### [facility] [address] [place] [address] Dr. Brady Sanders PROF 14(COMP METB)on 022 Albumin [Mass/Vol] 3.8 g/dL Normal 3.4-5.0 [facility] Comment on above: Performed By: #### L IPA JORDON, CMP #### [facility] [address] [place] [address] Dr. Brady Sanders Albumin/Globulin [Mass ratio] 1.0 {ratio} Normal [facility] Comment on above: Performed By: #### L IPA, JORDON, CMP #### [facility] [address] [place] [address] Dr. Brady Sanders ALP [Catalytic activity/Vol] 102 U/L Normal 46-116 [facility] Comment on above: Performed By: #### L IPA JORDON, CMP #### [facility] [address] [place] [address] Dr. Brady Sanders ALT [Catalytic activity/Vol] 41 U/L Normal 16-63 [facility] Comment on above: Performed By: #### L IPA JORDON, CMP #### [facility] [address] [place] [address] Dr. Brady Sanders Anion gap [Moles/Vol] 14.7 mmol/L Normal [facility] Comment on above: Performed By: #### L IPA, JORDON, CMP #### [facility] [address] [place] [address] Dr. Brady Sanders AST [Catalytic activity/Vol] 24 U/L Normal 15-37 [facility] Comment on above: Performed By: #### L IPA, JORDON, CMP #### [facility] [address] [place] [address] Dr. Brady Sanders Bilirubin [Mass/Vol] 0.4 mg/dL Normal 0.2-1.0 [facility] Comment on above: Performed By: #### L JORDON GARRETT, CMP #### [facility] [address] [place] [address] [address] Brady Sanders Calcium [Mass/Vol] 8.8 mg/dL Normal 8.5-10.1 [facility] Comment on above: Performed By: #### L JORDON GARRETT, CMP #### [facility] [address] [place] [address] Dr. Brady Sanders Chloride [Moles/Vol] 99 mmol/L Normal 98-107 [facility] Comment on above: Performed By: #### L JORDON GARRETT, CMP #### [facility] [address] [place] [address] Dr. Brady Sanders CO2 [Moles/Vol] 26.8 mmol/L Normal 21.0-32.0 [facility] Comment on above: Performed By: #### L JORDON GARRETT, CMP #### [facility] [address] [place] [address] Dr. Brady Sanders Creatinine [Mass/Vol] 1.00 mg/dL Normal 0.70-1.30 [facility] Comment on above: Performed By: #### L JORDON GARRETT, CMP #### [facility] [address] [place] [address] Dr. Brady Sanders EGFR-AF MOLDOVAN >60 Normal >=60 [facility] Comment on above: Performed By: #### L JORDON GARRETT, CMP #### [facility] [address] [place] [address] Dr. Brady Sanders EGFR-NON AF MOLDOVAN >60 Normal >=60 [facility] Comment on above: Performed By: #### L JORDON GARRETT, CMP #### [facility] [address] [place] [address] Dr. Brady Sanders Globulin (S) [Mass/Vol] 3.7 g/dL Normal [facility] Comment on above: Performed By: #### L JORDON GARRETT, CMP #### [facility] [address] [place] [address] [address] Brady Sanders Glucose [Mass/Vol] 317 mg/dL Critically high 74-106 [facility] Comment on above: Performed By: #### L JORDON GARRETT, CMP #### [facility] [address] [place] [address] [address] Brady Sanders Potassium [Moles/Vol] 3.5 mmol/L Normal 3.5-5.1 [facility] Comment on above: Performed By: #### L JORDON GARRETT, CMP #### [facility] [address] [place] [address] [address] Brady Sanders Protein [Mass/Vol] 7.5 g/dL Normal 6.4-8.2 [facility] Comment on above: Performed By: #### L JORDON GARRETT, CMP #### [facility] [address] [place] [address] Dr. Brady Sanders Sodium [Moles/Vol] 137 mmol/L Normal 136-145 [facility] Comment on above: Performed By: #### L JORDON GARRETT, CMP #### [facility] [address] [place] [address] [address] Brady Sanders Urea nitrogen [Mass/Vol] 11.0 mg/dL Normal 7.0-18.0 [facility] Comment on above: Performed By: #### L JORDON GARRETT, CMP #### [facility] [address] [place] [address] [address] Brady Sanders Urea nitrogen/Creatinine [Mass ratio] 11.0 mg/mg Normal [facility] Comment on above: Performed By: #### L JORDON GARRETT, CMP #### [facility] [address] [place] [address] [address] Brady Sanders Urinalysis - AUTOMATEDon Appearance (U) clear [employer] Other Bilirubin Ql (U) Negative [employer] Other Color (U) medium tellow [employer] Other Glucose Ql (U) >1000 [employer] Other Hemoglobin Ql (U) trace [employer] Other Ketones Ql (U) Negative [employer] Other Leukocyte esterase Test strip Ql (U) trace [employer] Other Nitrite Ql (U) Negative [employer] Other pH (U) 5.5 [pH] [employer] Other Protein Ql (U) Negative [employer] Other Specific gravity (U) [Rel density] 1.015 [employer] Other Urobilinogen (U) [Mass/Vol] 0.2 mg/dL [employer] Other Urinalysis - AUTOMATED [employer] Other Urine Cultureon 10-10-2021 Bacteria identified Cx Nom (U) Reason for Exam Dysuria Urine >100,000 colonies/ml mixed bacterial skin contaminants 2 Days PERFORMED BY: [place] [address] PATHOLOGIST [employer] TIA CORDOVA M.D. [facility] Comment on above: Performed By: #### C UU #### [address] Bacteria identified Cx Nom (U) [employer] Other Quick Fluon 02-19-2021 FLUAV Ab CF (S) [Titer] Negative [employer] Other FLUBV Ab CF (S) [Titer] Negative [employer] Other Vital Signs Date Time Vital Sign Value Performing Clinician Facility 10-28-2024 10:18-0400 Heart rate 62 /min Morgan Lovell MD Work Phone: [facility] 10-28-2024 10:18-0400 Respiratory rate 11 /min Morgan Lovell MD Work Phone: [facility] [employer] 10-28-2024 10:18-0400 SaO2% (BldA) [Mass fraction] 93 % Morgan Lovell MD Work Phone: [facility] 10-28-2024 10:15-0400 Diastolic blood pressure 77 mm[Hg] Morgan Lovell MD Work Phone: [facility] [employer] 10-28-2024 10:15-0400 Systolic blood pressure 127 mm[Hg] Morgan Lovell MD Work Phone: [facility] [employer] 10-28-2024 09:45-0400 Body temperature 98.01 [degF] Morgan Lovell MD Work Phone: [facility] [employer] 10-19-2024 11:06-0400 Body height 185.4 cm Morgan Lovell MD Work Phone: [facility] 10-19-2024 11:06-0400 Body mass index (BMI) [Ratio] 41.16 kg/m2 Morgan Lovell MD Work Phone: [facility] 10-19-2024 11:06-0400 Body weight 141.52 kg Morgan Lovell MD Work Phone: [facility] 09-29-2024 08:36-0400 Body mass index (BMI) [Ratio] 41.16 kg/m2 Jenn Barry [employer] Work Phone: [facility] 09-29-2024 08:36-0400 Body temperature 98.1 [degF] Jenn Barry [employer] Work Phone: [facility] 09-29-2024 08:36-0400 Body weight 141.52 kg Jenn Barry [employer] Work Phone: [facility] 09-29-2024 08:36-0400 Diastolic blood pressure 60 mm[Hg] Jenn Barry [employer] Work Phone: [facility] 09-29-2024 08:36-0400 Heart rate 90 /min Jenn Aichholz [employer] Work Phone: [facility] 09-29-2024 08:36-0400 Respiratory rate 20 /min Jenn Aichholz [employer] Work Phone: [facility] 09-29-2024 08:36-0400 SaO2% (BldA) [Mass fraction] 94 % Jenn Aichholz [employer] Work Phone: [facility] 09-29-2024 08:36-0400 Systolic blood pressure 90 mm[Hg] Jenn Aichholz [employer] Work Phone: [facility] 06-29-2024 09:59-0400 Diastolic blood pressure 84 mm[Hg] Jenn Aichholz [employer] Work Phone: [facility] 06-29-2024 09:59-0400 Systolic blood pressure 140 mm[Hg] Jenn Aichholz [employer] Work Phone: [facility] 06-29-2024 09:25-0400 Body mass index (BMI) [Ratio] 41.59 kg/m2 Jenn Aichholz [employer] Work Phone: [facility] 06-29-2024 09:25-0400 Body temperature 97.81 [degF] Jenn Kristopherhholz [employer] Work Phone: [facility] 06-29-2024 09:25-0400 Body weight 142.97 kg Jenn Aichholz [employer] Work Phone: [facility] 06-29-2024 09:25-0400 Heart rate 94 /min Jenn Aichholz [employer] Work Phone: [facility] 06-29-2024 09:25-0400 Respiratory rate 18 /min Jenn Aichholz [employer] Work Phone: [facility] 06-29-2024 09:25-0400 SaO2% (BldA) [Mass fraction] 96 % Jenn Aichholz [employer] Work Phone: [facility] 12-30-2023 09:07-0400 Body mass index (BMI) [Ratio] 42.35 kg/m2 Anna White [employer] Work Phone: [facility] 12-30-2023 09:07-0400 Body temperature 97.3 [degF] Anna White [employer] Work Phone: [facility] 12-30-2023 09:07-0400 Body weight 145.6 kg Anna White [employer] Work Phone: [facility] 12-30-2023 09:07-0400 Diastolic blood pressure 62 mm[Hg] Anna Gutierrezk [employer] Work Phone: [facility] 12-30-2023 09:07-0400 Heart rate 85 /min Anna White [employer] Work Phone: [facility] 12-30-2023 09:07-0400 SaO2% (BldA) [Mass fraction] 95 % Anna Gutierrezk [employer] Work Phone: [facility] 12-30-2023 09:07-0400 Systolic blood pressure 112 mm[Hg] Anna Gutierrezk [employer] Work Phone: [facility] 10-06-2023 14:10-0400 Heart rate 67 /min Carlito Leung DO Work Phone: [facility] [email or web address] 10-06-2023 14:10-0400 Respiratory rate 14 /min Carlitoclarice Leung DO Work Phone: [facility] 10-06-2023 14:10-0400 SaO2% (BldA) [Mass fraction] 94 % Carlito Madhu DO Work Phone: [facility] 10-06-2023 14:00-0400 Diastolic blood pressure 62 mm[Hg] Carlito Leung DO Work Phone: [facility] [email or web address] 10-06-2023 14:00-0400 Systolic blood pressure 112 mm[Hg] Carlito Leung DO Work Phone: [employer] 10-06-2023 13:15-0400 Body temperature 97.11 [degF] Carlito Leung DO Work Phone: [employer] 09-30-2023 13:06-0400 Body height 185.4 cm Carlito Leung DO Work Phone: [employer] 09-30-2023 13:06-0400 Body mass index (BMI) [Ratio] 43.54 kg/m2 Carlito Leung DO Work Phone: [employer] 09-30-2023 13:06-0400 Body weight 149.69 kg Carlito Leung DO Work Phone: [employer] 03-13-2022 18:15-0500 Body height 182.88 cm Mamie Cannon Other [employer] Other 03-13-2022 18:15-0500 Body mass index (BMI) [Ratio] 47.46 kg/m2 Mamie Cannon Other [employer] Other 03-13-2022 18:15-0500 Body temperature 98 [degF] Mamie Cannon Other [employer] Other 03-13-2022 18:15-0500 Body weight 158.76 kg Mamie Cannon Other [employer] Other 03-13-2022 18:15-0500 Respiratory rate 18 /min Mamie Cannon Other [employer] Other 03-13-2022 18:15-0500 SaO2% (BldA) [Mass fraction] 94 % Mamie Cannon Other [employer] Other 10-10-2021 10:30-0400 Body height 182.88 cm Mamie Cannon Other [employer] Other 10-10-2021 10:30-0400 Body mass index (BMI) [Ratio] 46.11 kg/m2 Mamie Kassandra Other [employer] Other 10-10-2021 10:30-0400 Body temperature 98.1 [degF] Mamie Cannon Other [employer] Other 10-10-2021 10:30-0400 Body weight 154.22 kg Mamie Sweetmond Other [employer] Other 10-10-2021 10:30-0400 Diastolic blood pressure 95 mm[Hg] Mamie Kassandra Other [employer] Other 10-10-2021 10:30-0400 Respiratory rate 20 /min Mamie Sweetmond Other [employer] Other 10-10-2021 10:30-0400 SaO2% (BldA) [Mass fraction] 98 % Mamie Kassandra Other [employer] Other 10-10-2021 10:30-0400 Systolic blood pressure 158 mm[Hg] Mamie Kassandra Other [employer] Other 05-10-2021 10:00-0500 Body height 182.88 cm Alexandra Dimas Other [employer] Other 05-10-2021 10:00-0500 Body mass index (BMI) [Ratio] 49.28 kg/m2 Alexandra Dimas Other [employer] Other 05-10-2021 10:00-0500 Body temperature 96.4 [degF] Alexandra Dimas Other [employer] Other 05-10-2021 10:00-0500 Body weight 164.84 kg Alexandra Dimas Other [employer] Other 05-10-2021 10:00-0500 Diastolic blood pressure 84 mm[Hg] Alexandra Dimas Other [employer] Other 05-10-2021 10:00-0500 Respiratory rate 18 /min Alexandra Dimas Other [employer] Other 05-10-2021 10:00-0500 SaO2% (BldA) [Mass fraction] 96 % Alexandra Dimas Other [employer] Other 05-10-2021 10:00-0500 Systolic blood pressure 147 mm[Hg] Alexandra Dimas Other [employer] Other 02-19-2021 10:00-0500 Body height 182.88 cm Alexandra Marsy Other [employer] Other 02-19-2021 10:00-0500 Body mass index (BMI) [Ratio] 48.82 kg/m2 Alexandra Hannanty Other [employer] Other 02-19-2021 10:00-0500 Body temperature 96.4 [degF] Alexandra Ginty Other [employer] Other 02-19-2021 10:00-0500 Body weight 163.3 kg Alexandra Marsy Other [employer] Other 02-19-2021 10:00-0500 SaO2% (BldA) [Mass fraction] 95 % Alexandra Jairo Other [employer] Other Encounters Encounter Date Encounter Type Care Provider Facility Start: 11-15-2024 End: 11-15-2024 Clinisync Result Encounter Jenn Rinaldidiana [employer] Work Phone: [facility] External Department Unsolicited Start: 11-15-2024 End: 11-15-2024 Clinisync Result Encounter Jenn Rinaldisteviejevon [employer] Work Phone: [facility] External Department Unsolicited Start: 11-15-2024 End: 11-15-2024 ambulatory [facility] Start: 11-15-2024 End: 11-15-2024 Subsequent hospital visit by physician [facility] Schedule [facility] Comment on above: Arrived Start: 10-28-2024 End: 10-28-2024 Clinisync Result Encounter Generic External Data Provider [facility] External Department Unsolicited Start: 10-28-2024 End: 10-28-2024 Clinisync Result Encounter Generic External Data Provider [facility] External Department Unsolicited Start: 10-28-2024 End: 10-28-2024 ambulatory MORGAN LOVELL [facility] Start: 10-28-2024 End: 10-28-2024 Subsequent hospital visit by physician Morgan Lovell MD Work Phone: [facility] Comment on above: Positive colorectal cancer screening using Cologuard test Start: 10-05-2024 End: 10-05-2024 ambulatory VIRGIN[place] RAMOS [facility] Start: 10-05-2024 Encounter for other preprocedural examination JENN [facility] Start: 10-05-2024 End: 10-05-2024 Patient encounter status [facility] Work Phone: Start: 10-05-2024 End: 10-05-2024 Subsequent hospital visit by physician [facility] Schedule [facility] Comment on above: Pre-op testing Start: 09-29-2024 End: 09-29-2024 Bamboo flowsheet Jenn Barry OREMAN Work Phone: [facility] Start: 09-29-2024 End: 09-29-2024 Bamboo flowsheet Jenn Barry OREMAN Work Phone: [facility] Start: 09-29-2024 End: 09-29-2024 Office outpatient visit 25 minutes Jenn Barry OREMAN Work Phone: [facility] Comment on above: Type 2 diabetes cassy itus without complication, without long- term current use of insulin (HCC) (Primary Dx); Essential hypertension ; Morbid (severe) obesity due to excess calories ([facility]-HCC); JAN (generalized anxiety disorder) ; Depression with anxiety; Type 2 diabetes mellitus with other specified complication (HCC); Hyperlipidemia, unspecified ; Positive colorectal cancer screening using Cologuard test; Hyperuricemia; Acute bilateral low back pain with right-sided sciatica; Pain of right heel Start: 09-29-2024 End: 09-29-2024 ambulatory JENN BARRY Not Available Start: 09-02-2024 End: 09-02-2024 Refill Jenn Barry OREMAN Work Phone: [facility] Comment on above: Dyslipidemia (Primar y Dx) Dyslipidemia Start: 09-01-2024 End: 09-01-2024 Clinisync Result Encounter Jenn Barry OREMAN Work Phone: [facility] External Department Unsolicited Start: 09-01-2024 End: 09-01-2024 Clinisync Result Encounter Jenn Barry OREMAN Work Phone: [facility] External Department Unsolicited Start: 09-01-2024 End: 09-01-2024 ambulatory JENN BARRY [facility] Start: 09-01-2024 End: 09-01-2024 Subsequent hospital visit by physician Jenn Finney OREMAN Work Phone: [facility] Start: 06-29-2024 End: 06-29-2024 Bamboo flowsheet Jenn Barry OREMAN Work Phone: [facility] CW FM Start: 06-29-2024 End: 06-29-2024 Bamboo flowsheet Jenn Barry OREMAN Work Phone: [facility] FM Start: 06-29-2024 End: 06-29-2024 ambulatory JENN BARRY Not Available Start: 06-29-2024 End: 06-29-2024 Office outpatient visit 25 minutes Jenn Barry NP Work Phone: [facility] Comment on above: Obstructive sleep ap seven syndrome (Primary Dx); Morbid (severe) obesity due to excess calories (CMS/HCC); Body mass index (BMI) 40.0-44.9, adult (CMS/HCC); Essential hypertension (CMS/HCC); Type 2 diabetes mellitus without complication, without long-term current use of insulin; Depression with anxiety; Dyslipidemia (CMS/HCC); Hyperuricemia; Screening for prostate cancer; JAN (generalized anxiety disorder) (CMS/HCC); Acute bilateral low back pain with right-sided sciatica Start: 05-06-2024 End: 05-06-2024 Refill Anna White OREMAN Work Phone: [facility] Comment on above: Essential hypertensi on (CMS/HCC) Start: 03-25-2024 End: 03-29-2024 Refill Anna White OREMAN Work Phone: [facility] Comment on above: Essential hypertensi on (CMS/HCC) Start: 03-23-2024 End: 03-29-2024 Refill Anna White OREMAN Work Phone: [facility] Comment on above: Type 2 diabetes cassy itus without complication, without long- term current use of insulin (CMS/HCC); JAN (generalized anxiety disorder) (CMS/HCC) Start: 03-22-2024 End: 03-22-2024 ambulatory Swapnil Perkins MD Facility:[facility] Start: 03-08-2024 End: 03-08-2024 Refill Anna White OREMAN Work Phone: [facility] Comment on above: Essential hypertensi on ([facility]) Type 2 diabetes cassy itus without complication, without long-term current use of insulin ([facility]); JAN (generalized anxiety disorder) ([facility]) Start: 03-08-2024 End: 03-08-2024 ambulatory Swapnil Perkins MD Facility:[facility] Start: 02-23-2024 End: 02-23-2024 ambulatory Swapnil Perkins MD Facility:[facility] Start: 01-20-2024 End: 01-26-2024 Refill Akosua Ramos MA [facility] Comment on above: Type 2 diabetes cassy itus without complication, without long- term current use of insulin ([facility]) Start: 01-05-2024 End: 01-05-2024 Orders Only Anna White OREMAN Work Phone: [facility] Comment on above: Type 2 diabetes cassy itus without complication, without long- term current use of insulin ([facility]) (Primary Dx) Start: 12-30-2023 End: 12-30-2023 Bamboo flowsheet Anna White OREMAN Work Phone: [facility] Start: 12-30-2023 End: 12-30-2023 Bamboo flowsheet Anna Palomarestrick OREMAN Work Phone: [facility] Start: 12-30-2023 End: 12-30-2023 Office outpatient visit 15 minutes Anna White OREMAN Work Phone: [facility] Comment on above: Type 2 diabetes cassy itus without complication, without long- term current use of insulin ([facility]) (Primary Dx); Dyslipidemia (CMS/HCC); Essential hypertension (CMS/HCC); Positive colorectal cancer screening using Cologuard test; Screening for colon cancer; Constipation, unspecified constipation type Start: 12-30-2023 End: 12-30-2023 ambulatory ANNA WHITE Not Available Start: 11-03-2023 End: 11-03-2023 ambulatory Swapnil Perkins MD Facility: [facility] Start: 10-06-2023 End: 10-06-2023 Subsequent hospital visit by physician Carlito Leung DO Work Phone: [facility] Comment on above: Post-op pain (Primar y Dx) Start: 10-01-2023 Preoperative state Anna murphy OREMAN Work Phone: [facility] Start: 07-24-2023 End: 08-23-2023 ambulatory [facility] Start: 06-23-2023 End: 07-23-2023 ambulatory [facility] Start: 06-05-2023 Patient encounter procedure Anna White OREMAN Work Phone: [facility] Start: 07-25-2022 End: 07-25-[address] GILBERT GARCIA . Facility: Start: 07-24-2022 End: 07-25-2022 ambulatory YIN H FAWWAMya Facility:H1 Start: 07-11-2022 End: 07-12-2022 ambulatory YIN H FAWWAD Facility:H1 Start: 06-03-2022 End: 06-04-2022 ambulatory YIN H FAWWAD Facility:H1 Start: 03-13-2022 End: 03-13-2022 ambulatory Mamie Cannon Other [facility] Other Start: 03-13-2022 Office outpatient vi sit 15 minutes Mamie Cannon [facility] Start: 03-07-2022 End: 03-08-2022 ambulatory YIN H FAWWAMya Facility:H1 Start: 10-10-2021 End: 10-10-2021 ambulatory Mamie Cannon Other [facility] Other Start: 10-10-2021 Office outpatient vi sit 15 minutes Mamiehumphrey Cannon [facility] Start: 10-10-2021 End: 10-10-2021 Departed Referred [facility]-C Mamie Cannon Work Phone: [facility] [place] Start: 05-10-2021 End: 05-10-2021 ambulatory Alexandra Dimas Other [facility] Other Start: 05-10-2021 Office outpatient vi sit 15 minutes Alexandra Dimas [facility] Start: 02-19-2021 End: 02-19-2021 ambulatory Alexandra Ginty Other [facility] Other Start: 02-19-2021 Office outpatient vi sit 15 minutes Alexandra Ginty [facility] Procedures Date Procedure Procedure Detail Performing Clinician Start: 11-15-2024 [facility] ALT Jenn swan OREMAN Work Phone: Start: 11-15-2024 [facility] AST Jenn swan OREMAN Work Phone: Start: 11-15-2024 Lipid panel Jenn noel RN [employer] Work Phone: Start: 11-15-2024 Transferase aspartat e amino ast sgot Jenn Barry RN [employer] Work Phone: Start: 10-28-2024 MHPT GLUCOSE,WHOLE BLOOD Generic External Data Provider Start: 10-28-2024 Skyler marks MD Work Phone: Start: 10-05-2024 Ecg routine ecg w/le ast 12 lds w/i&r Virginia Ramos RN [employer] Work Phone: Start: 09-29-2024 Hemoglobin glycosylated a1c Jenn Barry OREMAN Work Phone: Start: 09-01-2024 Comprehensive metabo lic panel Jenn SageJennifer Barry RN [employer] Work Phone: Start: 09-01-2024 Lipid panel Jenn Satish noel RN [employer] Work Phone: Start: 09-01-2024 MHPT CBC WITH DIFF Jenn Barry OREMAN Work Phone: Start: 09-01-2024 Urine albumin quantitative Jenn Covarrubias Asha RN [employer] Work Phone: Start: 09-01-2024 Urnls dip stick/tabl et rgnt auto w/o microscopy Jenn Barry RN [employer] Work Phone: Start: 06-29-2024 Hemoglobin glycosylated a1c Jenn Barry OREMAN Work Phone: Plan of Treatment Date Care Activity Detail Author Start: 10-28-2034 Screening for malign ant neoplasm of colon [facility] Start: 06-17-2026 Screening for malign ant neoplasm of colon [facility] Start: 11-15-2025 Lipid panel Lipids [facility] Start: 09-01-2025 GFR test (Diabetes, CKD 3-4, OR last GFR 15-59) GFR test (Diabetes, CKD 3-4, OR last GFR 15-59) [facility] Start: 09-01-2025 Lipid panel Lipids [facility] Start: 09-01-2025 Urine screening for protein [facility] Start: 04-01-2025 Hemoglobin A1c measurement Keysha betes: Hemoglobin A1C [facility] Start: 01-22-2025 Glaucoma screening Diabetes: R etinopathy Screening [facility] Start: 12-29-2024 Hemoglobin A1c measurement Keysha betes: Hemoglobin A1C [facility] Start: 11-25-2024 End: 11-25-2024 Patient encounter procedure 11/25/2024 9:00 AM EDT Office Visit [facility] [address] [place] [phone] Jenn Barry NP [address] [place] [address] [facility] Start: 11-22-2024 Influenza vaccination N [facility] Start: 11-10-2024 End: 11-10-2024 Patient encounter procedure 11/10/2024 2:00 PM EDT Office Visit [facility] [address] [place] [address] Jenn Barry, OREMAN [address] [place] [address] [facility] Start: 11-02-2024 End: 09-02-2025 Alanine aminotransferase [Enzymatic activity/volume] in Serum or Plasma ALT Lab Routine Dyslipidemia Expected: 11/02/2024 (Approximate), Expires: 09/02/2025 [facility] Comment on above: Expected: 11/02/2024 (Approximate), Expires: 09/02/2025 Start: 11-02-2024 End: 09-02-2025 Aspartate aminotransferase [Enzymatic activity/volume] in Serum or Plasma AST Lab Routine Dyslipidemia Expected: 11/02/2024 (Approximate), Expires: 09/02/2025 [facility] Comment on above: Expected: 11/02/2024 (Approximate), Expires: 09/02/2025 Start: 10-28-2024 End: 10-28-2024 Admission to same day surgery center 10/28/2024 8:35 AM EDT - 10/28/2024 9:11 AM EDT Surgery [facility] Endoscopy [address] [place] [address] Morgan Lovell MD [address] [place] [address] COLONOSCOPY [facility] Comment on above: COLONOSCOPY Start: 10-28-2024 End: 10-28-2024 Colon ca scrn not hi rsk ind [facility] Start: 10-28-2024 Subsequent hospital visit by physician 10/28/2024 8:35 AM EDT Hospital Encounter [facility] [address] [place] [address] Morgan Lovell MD [address] [place] [address] [facility] Start: 10-22-2024 Influenza vaccination [facility] on [facility] Start: 09-29-2024 End: 09-29-2024 Patient encounter procedure [facility] Comment on above: Type 2 diabetes cassy itus without complication, without long- term current use of insulin (HCC) (Primary Dx); Essential hypertension ; Morbid (severe) obesity due to excess calories ([facility]-HCC); JAN (generalized anxiety disorder) ; Depression with anxiety; Type 2 diabetes mellitus with other specified complication (HCC); Hyperlipidemia, unspecified ; Positive colorectal cancer screening using Cologuard test Start: 09-02-2024 End: 09-02-2025 Lipid 1996 panel - Serum or Plasma Lipid panel Lab Routine Dyslipidemia Expected: 09/02/2024 (Approximate), Expires: 09/02/2025 [facility] Work Phone: Comment on above: Expected: 09/02/2024 (Approximate), Expires: 09/02/2025 Start: 07-07-2024 Urine screening for protein Diabetes: Urine Protein Screening [facility] Start: 06-29-2024 End: 06-29-2025 CBC W Auto Differential panel - Blood CBC and differential Lab Routine Obstructive sleep apnea syndrome Hyperuricemia Expected: 06/29/2024 (Approximate), Expires: 06/29/2025 [facility] Work Phone: Comment on above: Expected: 06/29/2024 (Approximate), Expires: 06/29/2025 Start: 06-29-2024 End: 06-29-2025 Comprehensive metabolic 2000 panel - Serum or Plasma Comprehensive metabolic panel Lab Routine Essential hypertension (CMS/HCC) Type 2 diabetes mellitus without complication, without long-term current use of insulin Dyslipidemia (CMS/HCC) Hyperuricemia Expected: 06/29/2024 (Approximate), Expires: 06/29/2025 [facility] Comment on above: Expected: 06/29/2024 (Approximate), Expires: 06/29/2025 Start: 06-29-2024 End: 06-29-2025 Lipid 1996 panel - Serum or Plasma Lipid panel Lab Routine Dyslipidemia ([facility]/HCC) Expected: 06/29/2024 (Approximate), Expires: 06/29/2025 [facility] Comment on above: Expected: 06/29/2024 (Approximate), Expires: 06/29/2025 Start: 06-29-2024 End: 06-29-2025 Microalbumin/Creatinine panel in random Urine Microalbumin / creatinine, urine ratio Lab Routine Essential hypertension ([facility]) Type 2 diabetes mellitus without complication, without long-term current use of insulin Expected: 06/29/2024 (Approximate), Expires: 06/29/2025 [facility] Comment on above: Expected: 06/29/2024 (Approximate), Expires: 06/29/2025 Start: 06-29-2024 End: 06-29-2025 Prostate specific Ag [Mass/volume] in Serum or Plasma PSA Lab Routine Screening for prostate cancer Expected: 06/29/2024 (Approximate), Expires: 06/29/2025 [facility] Comment on above: Expected: 06/29/2024 (Approximate), Expires: 06/29/2025 Start: 06-29-2024 End: 06-29-2025 Urate [Mass/volume] in Serum or Plasma Uric acid Lab Routine Hyperuricemia Expected: 06/29/2024 (Approximate), Expires: 06/29/2025 [facility] Comment on above: Expected: 06/29/2024 (Approximate), Expires: 06/29/2025 Start: 06-29-2024 End: 06-29-2025 Urinalysis complete panel - Urine Urinalysis with reflex microscopic (clean catch) Lab Routine Essential hypertension ([facility]) Type 2 diabetes mellitus without complication, without long-term current use of insulin Expected: 06/29/2024 (Approximate), Expires: 06/29/2025 [facility] Comment on above: Expected: 06/29/2024 (Approximate), Expires: 06/29/2025 Start: 06-29-2024 End: 06-29-2024 Patient encounter procedure 06/29/2024 9:30 AM EDT Office Visit [facility] [address] [place] [address] Anna White NP [address] [place] [phone] [facility] Start: 03-24-2024 Hemoglobin A1c measurement Keysha betes: Hemoglobin A1C [facility] Start: 12-30-2023 End: 12-29-2024 Hemoglobin A1c/Hemoglobin.total in Blood Hemoglobin A1c Lab Routine Type 2 diabetes mellitus without complication, without long-term current use of insulin ([facility]) Expected: 12/30/2023 (Approximate), Expires: 12/29/2024 [facility] Work Phone: Comment on above: Expected: 12/30/2023 (Approximate), Expires: 12/29/2024 Start: 12-30-2023 End: 12-30-2023 Patient encounter procedure 12/30/2023 9:00 AM EDT Office Visit [facility] [address] [place] [address] Anna White NP [address] [place] [phone] Arrived [facility] Comment on above: Arrived Start: 11-23-2023 COVID-19 Vaccine ( season) COVID-19 Vaccine ( season) [facility] Start: 11-23-2023 COVID-19 Vaccine ( season) COVID-19 Vaccine ( season) [facility] Start: 11-23-2023 Influenza vaccination Influenza Vacc ine (#1) [facility] Start: 10-23-2023 Influenza vaccination Flu vaccine (# 1) [facility] Start: 10-06-2023 End: 10-06-2023 Neuroplasty &/transposition ulnar nerve elbow ARM NERVE TRANSPOSITION Cubital tunnel syndrome, right 10/06/2023 11:31 AM EDT [facility] Start: 2023 Shingles vaccine (1 of 2) Castellanos gles vaccine (1 of 2) [facility] Start: 2018 Screening for malign ant neoplasm of colon [facility] Start: 02-18-1992 DTaP/Tdap/Td vaccine (1 - Tdap) DTaP/Tdap/Td vaccine (1 - Tdap) [facility] Start: 02-18-1992 Hepatitis B vaccine (1 of 3 - 19+ 3-dose series) Hepatitis B vaccine (1 of 3 - 19+ 3-dose series) [facility] Start: 02-18-1992 Pneumococcal 50+ yea rs Vaccine (1 of 2 - PCV) Pneumococcal 50+ years Vaccine (1 of 2 - PCV) [facility] Start: 1991 Glaucoma screening Diabetic retinal exam [facility] Start: 1991 Hepatitis C screening Hepatitis C sc reen [facility] Start: 02-18-1988 HIV screening HIV screen [facility] Start: 1985 Depression Monitoring Depression Mon itoring [facility] Start: 1983 Diabetic foot examination Diabetic f oot exam [facility] Start: 1983 Hemoglobin A1c measurement A1C test (Diabetic or Prediabetic) [facility] Start: 1973 COVID-19 Vaccine (#1) COVID-19 Vacci ne (#1) [facility] Start: 1973 Screening for malign ant neoplasm of colon [facility] Bacteria identified in Urine by Culture [facility] Oxygen therapy [[facility]] Initiate Oxygen Therapy Protocol Respiratory Care Routine As Needed until discontinued starting 10/06/2023 [facility] Comment on above: As Needed until disc ontinued starting 10/06/2023 Pathology study Surgical Patholo gy Lab Routine Positive colorectal cancer screening using Cologuard test Release Upon Ordering for 1 Occurrences starting 10/28/2024 [facility] Comment on above: Release Upon Orderin g for 1 Occurrences starting 10/28/2024 End: 10-28-2024 SURGICAL PATHOLOGY REPORT SURGICAL PATHOLOGY REPORT Lab Routine Once for 1 Occurrences starting 10/28/2024 until 10/28/2024 [facility] Comment on above: Once for 1 Occurrenc es starting 10/28/2024 until 10/28/2024 Immunizations Immunization Date Immunization Notes Care Provider Olga bettsjason 02-16-2021 Pfizer Purple Cap SARS-CoV-2 Vaccination Jennmaykel Barry OREMAN Work Phone: [facility] 01-16-2021 influenza, injectabl e, quadrivalent, preservative free Anna White OREMAN Work Phone: [facility] 01-16-2021 influenza virus vaccine, unspecified formulation Anna White OREMAN Work Phone: [facility] 07-08-2020 Moderna SARS-CoV-2 Vaccination Jenn Cassiz OREMAN Work Phone: [facility] 06-05-2020 Moderna SARS-CoV-2 Vaccination Jenn Aichholz OREMAN Work Phone: [facility] 02-06-2020 influenza, injectabl e, quadrivalent, contains preservative Anna White OREMAN Work Phone: [facility] 02-21-2019 Influenza, injectabl e, Madin Kaycee Canine Kidney, preservative free, quadrivalent Anna White OREMAN Work Phone: [facility] 01-02-2017 influenza, seasonal, injectable Anna White OREMAN Work Phone: [facility] 12-26-2015 influenza, seasonal, injectable, preservative free Anna White OREMAN Work Phone: [facility] 01-04-2015 influenza, seasonal, injectable, preservative free Anna White OREMAN Work Phone: [facility] 12-30-2013 influenza, seasonal, injectable Anna White OREMAN Work Phone: [facility] 01-07-2013 influenza, seasonal, injectable Anna White OREMAN Work Phone: [facility] Payers Date Payer Category Payer Private Health Insurance [id number] 1973 Unknown [id number] 1973 Unknown [id number] [id number] 1973 Unknown [id number] [id number] 1973 Unknown [id number] [id number] 1973 Unknown [id number] [id number] 1973 Unknown [id number] [id number] 1973 Unknown [id number] 2.16.840.1.328262.3.579.2.1286 1973 Unknown [id number] [id number] 1973 Unknown [id number] 2.16.840.1.236201.3.579.2.196 1973 Unknown [id number] [id number] 1973 Unknown [id number] 2.16.840.1.627370.3.579.2.196 1973 Unknown [id number] 2.16.840.1.146492.3.579.2.1259 1973 Unknown [id number] 2.16.840.1.078437.3.579.2.1259 1973 Unknown [id number] 2.16.840.1.455861.3.579.2.1259 1973 Unknown [id number] [id number] 1973 Unknown [id number] [id number] 1973 Unknown [id number] [id number] 1973 Unknown [id number] [id number] 1959 Unknown [id number] [id number] Self-pay Self Pay [id number] Unknown Susan MURRIETA/JM [id number] Social History Date Type Detail Facility Unknown if ever smoked [facility] Other Start: 12-23-2023 End: 10-28-2024 Sex Assigned At [facility] Start: 1975 Sex Assigned At Male F [facility] Start: 06-05-2023 End: 09-30-2023 Tobacco smoking status NHIS Never smoked tobacco [facility] Start: 06-05-2023 End: 09-30-2023 Tobacco use and exposure Smokeless tobacco [facility] Start: 10-01-2023 End: 10-29-2024 Alcoholic beverage intake Lifetime non-drinker (finding) [facility] [employer] [facility] Start: 12-23-2023 End: 10-28-2024 History of Social function [facility] How [...] the mortgage or rent on time? Yes [facility] Start: 1975 Sex assigned at Not on file [facility] [employer] Start: 05-03-2012 Sex Male (finding) [employer] [employer] NEGATED: Highlighted rowStart: ESTHERF History of tobacco use Passive smoker [facility] [employer] [facility] Procedure Code Equipment Code Equipment Origin al Text Equipment Identifier Dates USE 1 STRIP TO C HECK GLUCOSE ONCE DAILY Start: 09-26-2024 Goals Date Patient Goal Desired Activity /State Personal health goal Clinical Notes 02-19-2021 to 10-28-2024 Sr Leena Garcia - 10/28/2024 10:22 AM Lauren Todd RN - 10/19/2024 11:08 AM EDTDisimelda Barry NP - 09/29/2024 8:40 AM EDTHMAYNOR [facility]Z - 09/29/2024 8:40 AM EDT Note Date & Type Note Facility 10-28-2024 History of Presen t illness Narrative Spiritual Services Interventions [facility] Pool/NONE 10/28/2024 Sr Leena Brenner 49 y.o. year old male Encounter Summary Encounter Overview/Reason: Initial Encounter Service Provided For: Patient Referral/Consult From: [facility] Support System: Unknown Last Encounter : 10/28/24 Complexity of Encounter: Low Begin Time: 904 End Time : 909 Total Time Calculated: 5 min Spiritual/Emotional needs Type: Spiritual Support Assessment/Intervention/Outcome Assessment: Calm Intervention: Prayer (assurance of)/[place] Outcome: Expressed Gratitude [facility] Preadmission Testing Name: Hair Brenner : 1975 Patient (home) Procedure: Colonoscopy Date of Procedure: Surgeon: Morgan Lovell MD Ht: 185.4 cm (6' 1 ) Wt: Weight - Scale: (!) 141.5 kg (312 lb) Wt method: Allergies: No Known Allergies There were no vitals filed for this visit. No LMP for male patient. Do you take blood thinners? [x] Yes [] No Instructed to stop blood thinners prior to procedure? [x] Yes [] No [] N/A Do you have sleep apnea? [x] Yes [] No Do you have acid reflux ? [] Yes [x] No Do you have hiatal hernia? [] Yes [x] No Do you ever experience motion sickness? [] Yes [x] No Have you had a respiratory infection or sore throat in last 4 weeks before surgery? [] Yes [x] No Do you have poorly controlled asthma or COPD? Difficulty with intubation in past? [] Yes [x] No [] Yes [x] No Do you have a history of angina in the last month or symptomatic arrhythmia? [] Yes [x] No Do you have significant central nervous system disease? [] Yes [] No Have you had an EKG, labs, or chest xray in last 12 months? If yes provide copies to anesthesia [x] Yes [] No [] Lab [x] EKG [] CXR Have you had a stress test? [x] Yes [] No When/where: Was it normal? [x] Yes [] No Do you or your family have a history of Malignant Hyperthermia? [] Yes [x] No Do you smoke? [] Yes [x] No Please refrain from smoking on the day of surgery. Patient instructed on: [x] NPO Status [x] Meds to Take [x] Hold GLP-1 Receptor Agonist [x] Ride Home [x] No Jewelry/Contact Lenses/Nail Sami [x] Prep/Lax/Clear Liquids [] Chlorhexidene DOS Patient Needs [] HCG [x] Blood Sugar [] PT/INR [] T&S Do you have any metal allergies? [] Yes [x] No If yes, to what metals: Patient instructed on the pre-operative, intra-operative, and post-operative process? Yes Medication instructions reviewed with patient? Yes documented in this encounter [facility] 10-28-2024 Hospital Discharg e instructions Morgan Lovell MD - 10/28/2024 9:49 AM EDT 1) You had 3 small polyps which were removed. 2) You will be called with the pathology results and recommendations based on those results. 3) Your hemorrhoids are fairly minimal at this time. 4) Follow up in the office if you would like. Discharge Instructions for Colonoscopy Colonoscopy is a visual exam of the lining of the large intestine, also called the bowel or colon, with a colonoscope. A colonoscope is a flexible tube with a light and a viewing device. It allows the doctor to view the inside of the colon through a tiny video camera. Colonoscopy is performed for many reasons: unexplained anemia , pain, diarrhea , bloody stools, cancer screening, among many other reasons. Complications from a colonoscopy are rare. Some possible serious complications include perforated bowel (which might require surgery) and bleeding (which could require blood transfusion ). Minor complications include bloating, gas, and cramping that can last for 1-2 days after the procedure. Because air is put into your colon during the procedure, it is normal to pass large amounts of air from your rectum. You may not have a bowel movement for 1-3 days after the procedure. What You Will Need Someone to drive you home after the procedure Steps to Take Home Care Rest when you get home. Because the sedative will make you drowsy, don't drive, operate machinery, or make important decisions the day of the procedure. Feelings of bloating, gas, or cramping may persist for 24 hours. Diet Try sips of water first. If tolerated, resume regular diet or the diet recommended by your physician. Do not drink alcohol for 24 hours. Physical Activity You may return to work tomorrow. Do not drive, operate heavy machinery, or do activities that require coordination or balance until tomorrow Otherwise, return to your normal routine as soon as you are comfortable to do so, which is usually the next day after the procedure. Medications When taking medications, it's important to: Take your medication as directednot more, not less, not at a different time. Do not stop taking them without consulting your healthcare provider. Don't share them with anyone else. Know what effects and side effects to expect, and report them to your healthcare provider. If you are taking more than one drug, even if it is an [id number] medication, herb, or dietary supplement, be sure to check with a physician or pharmacist about drug interactions. Plan ahead for refills so you don't run out. Follow-up You will be called with your results usually within a week or We will have you make a follow up appointment You are always welcome to follow up in person if you have questions or there are other issue you would like addressed Call Your Doctor If Any of the Following Occurs Monitor your recovery once you leave the hospital. As soon as you have a problem, alert your doctor. If any of the following occur, call your doctor or come to the emergency room Bleeding from your rectum; notify your doctor if you pass a teaspoonful or more of blood Black, tarry stools Severe abdominal pain Hard, swollen abdomen Signs of infection, including fever or chills Inability to pass gas or stool Coughing, shortness of breath, chest pain, severe nausea or vomiting In case of an emergency, call 911 immediately. documented in this encounter [facility] 09-29-2024 History of Presen t illness Narrative Images from the original note were not included. Hair Brenner is a 49 y.o. male presents with chief complaint of Diabetes HPI: Heel pain: right, few months, everyday, constant, no pain with sitting, sit to stand worse, fades away w walking, hx of heel spur (deflash and wash operator told in the past) would like refer to podiatry Orthostatics: lyin/50, sit 78/48, stand 78/48 Hypertension This is a chronic problem. The current episode started more than 1 year ago. The problem is unchanged. The problem is controlled. Pertinent negatives include no headaches, orthopnea, peripheral edema or shortness of breath. There are no associated agents to hypertension. Risk factors for coronary artery disease include diabetes mellitus, dyslipidemia, male gender, obesity and sedentary lifestyle. Past treatments include beta blockers, calcium channel blockers, diuretics and angiotensin blockers. The current treatment provides significant improvement. There are no compliance problems. There is no history of CAD/KS, heart failure or PVD. Diabetes He presents for his follow-up diabetic visit. He has type 2 diabetes mellitus. His disease course has been stable. There are no hypoglycemic associated symptoms. Pertinent negatives for hypoglycemia include no dizziness, headaches, nervousness/anxiousness, seizures or tremors. Pertinent negatives for diabetes include no foot paresthesias, no polydipsia, no polyphagia, no polyuria and no visual change. There are no hypoglycemic complications. Pertinent negatives for diabetic complications include no heart disease, nephropathy, peripheral neuropathy or PVD. Risk factors for coronary artery disease include diabetes mellitus, dyslipidemia, hypertension, male sex, obesity and sedentary lifestyle. Current diabetic treatment includes oral agent (dual therapy) (ozempic). An SABRINA inhibitor/angiotensin II receptor micheal is being taken. Eye exam is current. SUBJECTIVE: MEDICATIONS: Current Outpatient Medications Medication Instructions allopurinol (ZYLOPRIM) 300 mg, Oral, Daily amLODIPine (NORVASC) 10 mg, Oral, Daily aspirin 81 mg, Oral, Daily atorvastatin (LIPITOR) 20 mg, Oral, Nightly Blood Glucose Monitoring Suppl (Cardiosolutions Verio Flex System) w/Device kit USE DIRECTED busPIRone (BUSPAR) 15 mg, Oral, Every 8 hours PRN carvedilol (COREG) 25 mg, Oral, 2 times daily with meals HYDROcodone-acetaminophen (Chugwater) 5-325 MG tablet 1 tablet, Oral, Every 6 hours PRN losartan-hydroCHLOROthiazide (Hyzaar) 100-25 MG tablet 1 tablet, Oral, Daily Cardiosolutions Verio test strip USE 1 STRIP TO CHECK GLUCOSE ONCE DAILY Ozempic (2 MG/DOSE) 2 mg, Subcutaneous, Every 7 days sertraline (ZOLOFT) 50 mg, Oral, Daily spironolactone (ALDACTONE) 25 mg, Oral, Daily tiZANidine (ZANAFLEX) 4 mg, Oral, Every 8 hours PRN ALLERGIES: No Known Allergies REVIEW OF SYMPTOMS: Review of Systems Constitutional: Negative for activity change, appetite change and unexpected weight change. HENT: Negative for ear pain, nosebleeds, sneezing, trouble swallowing and voice change. Eyes: Negative for pain, discharge and visual disturbance. Respiratory: Negative for apnea, chest tightness, shortness of breath and wheezing. Cardiovascular: Negative for orthopnea and leg swelling. Gastrointestinal: Negative for abdominal distention, blood in stool, constipation and diarrhea. Genitourinary: Negative for decreased urine volume, difficulty urinating, dysuria and hematuria. Musculoskeletal: Right heel Skin: Negative for color change. Neurological: Negative for dizziness, tremors, seizures and headaches. Psychiatric/Behavioral: Negative for agitation, decreased concentration, hallucinations, self-injury and suicidal ideas. The patient is not nervous/anxious. Hematological: Negative for adenopathy. Does not bruise/bleed easily. Endocrine: Negative for cold intolerance, heat intolerance, polydipsia, polyphagia and polyuria. Allergic/Immunologic: Negative for environmental allergies and food allergies. PAST MEDICAL HISTORY Past Medical History: Diagnosis Date Anxiety Hypercholesterolemia Hypertension History reviewed. No pertinent surgical history. family history includes Hypertension in his father and mother. OBJECTIVE: Visit Vitals BP 90/60 (BP Location: Left arm, Patient Position: Sitting, BP Cuff Size: Large adult) Pulse 90 Temp 98.1 F (Temporal) Resp 20 Wt 312 lb SpO2 94% BMI 41.16 kg/m Smoking Status Never BSA 2.7 m Physical Exam Vitals and nursing note reviewed. Constitutional: Appearance: Normal appearance. HENT: Head: Normocephalic. Right Ear: External ear normal. Left Ear: External ear normal. Nose: Nose normal. Mouth/Throat: Mouth: Mucous membranes are moist. Pharynx: Oropharynx is clear. Eyes: Extraocular Movements: Extraocular movements intact. Conjunctiva/sclera: Conjunctivae normal. Neck: Vascular: No carotid bruit. Cardiovascular: Rate and Rhythm: Normal rate and regular rhythm. Pulses: Normal pulses. Heart sounds: Normal heart sounds. Pulmonary: Effort: Pulmonary effort is normal. Breath sounds: Normal breath sounds. Abdominal: General: Bowel sounds are normal. Palpations: Abdomen is soft. Musculoskeletal: Cervical back: Neck supple. Right lower leg: No edema. Left lower leg: No edema. Comments: Tender right heel Skin: General: Skin is warm and dry. Capillary Refill: Capillary refill takes 2 to 3 seconds. Neurological: General: No focal deficit present. Mental Status: He is alert. Psychiatric: Mood and Affect: Mood normal. Behavior: Behavior normal. Thought Content: Thought content normal. Judgment: Judgment normal. ASSESSMENT AND PLAN: Follow up in about 4 weeks (around 10/27/2024) for Recheck. Problem List Items Addressed This Visit Essential hypertension Please check blood pressure daily and record DASH diet Limit caffeine Take medication as directed Contact office if chest pain, pressure, dizziness, shortness of breath, swelling legs Recommend slow position changes Current meds: amlodipine, carvedilol, arb/hydrochlorothiazide, Will have him cut amlodipine to 5mg daily, check BP twice a day and record, stop by office in 7 days for blood pressure check, no overly symptomatic, denies any recent illness and is staying hydrated in the hot weather Relevant Medications amLODIPine (Norvasc) 10 MG tablet carvedilol (Coreg) 25 MG tablet losartan-hydroCHLOROthiazide (Hyzaar) 100-25 MG tablet spironolactone (Aldactone) 25 MG tablet Type 2 diabetes mellitus without complication, without long-term current use of insulin ([facility]) - Primary Check blood sugars daily, notify if <70 [...] diet low in carbohydrates, and simple sugars. Current meds: ozempic, glipizide, asa, statin, arb/hctz A1c: 5.9% 09/29/24, 5.9% 06/29/24 Relevant Orders POCT glycosylated hemoglobin (Hb A1C) docked device (Completed) Depression with anxiety Current meds: buspar, sertraline Last appt increased buspar to 10mg TID Hyperuricemia Relevant Medications allopurinol (Zyloprim) 300 MG tablet Acute bilateral low back pain with right-sided sciatica Relevant Medications tiZANidine (Zanaflex) 4 MG tablet RESOLVED: JAN (generalized anxiety disorder) Current meds: buspar, sertraline Positive colorectal cancer screening using Cologuard test 06/18/23 + cologuard test Relevant Orders Ambulatory referral to General Surgery Morbid (severe) obesity due to excess calories ([facility]) Discussed with patient their BMI (actual, verses recommended). We have also discussed lifestyle modifications: attempts to perform physical activity as chronic conditions allow, also to monitor dietary intake: increasing protein/fruits/veggies and lowering carb intake (unless contraindicated). Limit sodas, juices, and sugary drinks. Is on GLP-1 for diabetes Type 2 diabetes mellitus with other specified complication (HCC) HTN, HLD, obesity Hyperlipidemia, unspecified On statin Check labs yearly and prn dose changes Recent change in dose on atorvastatin d/t not at goal Pain of right heel Relevant Orders Ambulatory referral to Podiatry Pain in right heel- couple months ago, possible heel spur. Pain is consistent and daily. Pt would like a referral to a deflash and wash operator near or in [place]. Pt checked BP this morning 122/80 pt still took his BP medication Associated Problem(s): Type 2 diabetes mellitus with other specified complication (HCC) HTN, HLD, obesity Associated Problem(s): Positive colorectal cancer screening using Cologuard test 06/18/23 + cologuard test Associated Problem(s): Hyperlipidemia, unspecified On statin Check labs yearly and prn dose changes Recent change in dose on atorvastatin d/t not at goal Associated Problem(s): Depression with anxiety Current meds: buspar, sertraline Last appt increased buspar to 10mg TID Associated Problem(s): JAN (generalized anxiety disorder) (Resolved 09/29/2024) Current meds: buspar, sertraline Associated Problem(s): Morbid (severe) obesity due to excess calories ([facility]) Discussed with patient their BMI (actual, verses recommended). We have also discussed lifestyle modifications: attempts to perform physical activity as chronic conditions allow, also to monitor dietary intake: increasing protein/fruits/veggies and lowering carb intake (unless contraindicated). Limit sodas, juices, and sugary drinks. Is on GLP-1 for diabetes Associated Problem(s): Type 2 diabetes mellitus without complication, without long-term current use of insulin ([facility]) Check blood sugars daily, notify if <70 [...] diet low in carbohydrates, and simple sugars. Current meds: ozempic, glipizide, asa, statin, arb/hctz A1c: 5.9% 09/29/24, 5.9% 06/29/24 Associated Problem(s): Essential hypertension Please check blood pressure daily and record DASH diet Limit caffeine Take medication as directed Contact office if chest pain, pressure, dizziness, shortness of breath, swelling legs Recommend slow position changes Current meds: amlodipine, carvedilol, arb/hydrochlorothiazide, Will have him cut amlodipine to 5mg daily, check BP twice a day and record, stop by office in 7 days for blood pressure check, no overly symptomatic, denies any recent illness and is staying hydrated in the hot weather Associated Problem(s): Sleep apnea You have a diagnosis of obstructive sleep apnea. It is recommended that you wear your PAP device any time while in bed sleeping. Not using the PAP device can increase your risk of elevated/uncontrolled high blood pressure, atrial fibrillation, heart attack, stroke, or sudden . Compliance with PAP: could not tolerate this documented in this encounter [facility] 09-29-2024 Instructions Jenn Barry NP - 09/29/2024 8:40 AM EDT ,cut amlodipine pill in half so you will take 5mg daily and check blood pressures at home for the next 7 days twice a day, and stop by office for a blood pressure check in 1 week, and bring readings along with you documented in this encounter [facility] 06-29-2024 History of Presen t illness Narrative Pt does not wear sensor- cost $75 monthly Pt states he had checked his sugars a very long time however he no longer has testing kit Pt was suppose to check BP at home, he moved in April and lost his BP log. Pt states that when he was checking his systolic would be between 120-130 and diastolic would be in the Pt states he started yesterday having pain in his right ear and could be the start of an infection he did feel his ear leak fluid Images from the original note were not included. Hair Brenner is a 49 y.o. male presents with chief complaint of Diabetes HPI: MAYNOR VALERIO [employer] Route Supervisor 9:22 AM Pt does not wear sensor- cost $75 monthly Pt states he had checked his sugars a very long time however he no longer has testing kit Pt was suppose to check BP at home, he moved in April and lost his BP log. Pt states that when he was checking his systolic would be between 120-130 and diastolic would be in the Pt states he started yesterday having pain in his right ear and could be the start of an infection he did feel his ear leak fluid Diabetes He presents for his follow-up diabetic visit. He has type 2 diabetes mellitus. His disease course has been stable. Hypoglycemia symptoms include nervousness/anxiousness. Pertinent negatives for hypoglycemia include no dizziness, seizures or tremors. Pertinent negatives for diabetes include no blurred vision, no chest pain, no foot paresthesias, no polydipsia and no polyuria. There are no hypoglycemic complications. Symptoms are stable. Pertinent negatives for diabetic complications include no peripheral neuropathy. Risk factors for coronary artery disease include diabetes mellitus, dyslipidemia, hypertension, male sex, obesity and sedentary lifestyle. Current diabetic treatment includes oral agent (dual therapy) (GLP 1). An SABRINA inhibitor/angiotensin II receptor micheal is being taken. He does not see a deflash and wash operator.Eye exam is current. Hypertension This is a chronic problem. The problem has been waxing and waning since onset. Associated symptoms include anxiety. Pertinent negatives include no blurred vision, chest pain, peripheral edema or shortness of breath. There are no associated agents to hypertension. Risk factors for coronary artery disease include diabetes mellitus, dyslipidemia, male gender, obesity and sedentary lifestyle. Past treatments include beta blockers, calcium channel blockers, diuretics and angiotensin blockers. The current treatment provides significant improvement. There are no compliance problems. Anxiety Symptoms include nervous/anxious behavior. Patient reports no chest pain, decreased concentration, dizziness, shortness of breath or suicidal ideas. SUBJECTIVE: MEDICATIONS: Current Outpatient Medications Medication Instructions allopurinol (ZYLOPRIM) 300 mg, Oral, Daily amLODIPine (NORVASC) 10 mg, Oral, Daily aspirin 81 mg, Oral, Daily busPIRone (BUSPAR) 15 mg, Oral, Every 8 hours PRN carvedilol (COREG) 25 mg, Oral, 2 times daily with meals HYDROcodone-acetaminophen (Chugwater) 5-325 MG tablet 1 tablet, Oral, Every 6 hours PRN losartan-hydroCHLOROthiazide (Hyzaar) 100-25 MG tablet 1 tablet, Oral, Daily Ozempic (2 MG/DOSE) 2 mg, Subcutaneous, Every 7 days pravastatin (PRAVACHOL) 40 mg, Oral, Nightly sertraline (ZOLOFT) 50 mg, Oral, Daily spironolactone (ALDACTONE) 25 mg, Oral, Daily tiZANidine (ZANAFLEX) 4 mg, Oral, Every 8 hours PRN ALLERGIES: No Known Allergies REVIEW OF SYMPTOMS: Review of Systems Constitutional: Negative for activity change, appetite change and unexpected weight change. HENT: Positive for ear discharge. Negative for ear pain, nosebleeds, sneezing, trouble swallowing and voice change. Eyes: Negative for blurred vision, pain, discharge and visual disturbance. Respiratory: Negative for apnea, chest tightness, shortness of breath and wheezing. Cardiovascular: Negative for chest pain and leg swelling. Gastrointestinal: Negative for abdominal distention, blood in stool, constipation and diarrhea. Genitourinary: Negative for decreased urine volume, difficulty urinating, dysuria and hematuria. Skin: Negative for color change. Neurological: Negative for dizziness, tremors and seizures. Psychiatric/Behavioral: Negative for agitation, decreased concentration, hallucinations, self-injury and suicidal ideas. The patient is nervous/anxious. Hematological: Negative for adenopathy. Does not bruise/bleed easily. Endocrine: Negative for cold intolerance, heat intolerance, polydipsia and polyuria. Allergic/Immunologic: Negative for environmental allergies and food allergies. PAST MEDICAL HISTORY Past Medical History: Diagnosis Date Anxiety Hypercholesterolemia (CMS/HCC) Hypertension (CMS/HCC) History reviewed. No pertinent surgical history. family history includes Hypertension in his father and mother. OBJECTIVE: Visit Vitals BP 140/84 (BP Location: Left arm, Patient Position: Sitting, BP Cuff Size: Large adult) Pulse 94 Temp 97.8 F (Temporal) Resp 18 Wt 315 lb 3.2 oz SpO2 96% BMI 41.59 kg/m Smoking Status Never BSA 2.71 m Physical Exam Vitals and nursing note reviewed. Constitutional: Appearance: Normal appearance. He is obese. He is not ill-appearing. HENT: Head: Normocephalic. Right Ear: Tympanic membrane, ear canal and external ear normal. Left Ear: Tympanic membrane, ear canal and external ear normal. Nose: Nose normal. No congestion or rhinorrhea. Mouth/Throat: Mouth: Mucous membranes are moist. Pharynx: Oropharynx is clear. No oropharyngeal exudate or posterior oropharyngeal erythema. Eyes: Extraocular Movements: Extraocular movements intact. Conjunctiva/sclera: Conjunctivae normal. Neck: Vascular: No carotid bruit. Cardiovascular: Rate and Rhythm: Normal rate and regular rhythm. Pulses: Normal pulses. Heart sounds: Normal heart sounds. No murmur heard. Pulmonary: Effort: Pulmonary effort is normal. Breath sounds: Normal breath sounds. No wheezing or rhonchi. Abdominal: General: Bowel sounds are normal. Palpations: Abdomen is soft. Tenderness: There is no abdominal tenderness. There is no guarding. Musculoskeletal: Cervical back: Neck supple. Right lower leg: No edema. Left lower leg: No edema. Lymphadenopathy: Cervical: No cervical adenopathy. Skin: General: Skin is warm and dry. Capillary Refill: Capillary refill takes 2 to 3 seconds. Neurological: General: No focal deficit present. Mental Status: He is alert. Psychiatric: Mood and Affect: Mood normal. Behavior: Behavior normal. Thought Content: Thought content normal. Judgment: Judgment normal. ASSESSMENT AND PLAN: Follow up in about 3 months (around 09/28/2024) for Recheck. Problem List Items Addressed This Visit Dyslipidemia (CMS/HCC) On statin therapy Check labs yearly and as needed Relevant Medications pravastatin (Pravachol) 40 MG tablet Other Relevant Orders Comprehensive metabolic panel Lipid panel Essential hypertension (CMS/HCC) Please check blood pressure daily and record DASH diet Limit caffeine Take medication as directed Contact office if chest pain, pressure, dizziness, shortness of breath, swelling legs Recommend slow position changes Current meds: amlodipine, carvedilol, arb/hydrochlorothiazide, Relevant Medications amLODIPine (Norvasc) 10 MG tablet aspirin 81 MG EC tablet carvedilol (Coreg) 25 MG tablet losartan-hydroCHLOROthiazide (Hyzaar) 100-25 MG tablet spironolactone (Aldactone) 25 MG tablet Other Relevant Orders Comprehensive metabolic panel Urinalysis with reflex microscopic (clean catch) Microalbumin / creatinine, urine ratio Sleep apnea - Primary You have a diagnosis of obstructive sleep apnea. It is recommended that you wear your PAP device any time while in bed sleeping. Not using the PAP device can increase your risk of elevated/uncontrolled high blood pressure, atrial fibrillation, heart attack, stroke, or sudden . Compliance with PAP: could not tolerate this Relevant Orders CBC and differential Type 2 diabetes mellitus without complication, without long-term current use of insulin Check blood sugars daily, notify if <70 [...] diet low in carbohydrates, and simple sugars. Current meds: ozempic, glipizide, asa, statin, arb/hctz A1c: 5.9% 06/29/24 Relevant Medications aspirin 81 MG EC tablet Other Relevant Orders POCT glycosylated hemoglobin (Hb A1C) docked device (Completed) Comprehensive metabolic panel Urinalysis with reflex microscopic (clean catch) Microalbumin / creatinine, urine ratio Depression with anxiety Current meds: buspar, sertraline PHQ 9=7 JAN 7=8 Wants to stay at dose on sertraline, however increase buspirone 10 15mg TID prn Called in 30 day script to [facility] in [place] 06/29/24 10:07 am #30 day , 90 pills Hyperuricemia On allopurinol Check labs yearly, and prn dose change or change in symptoms Relevant Medications allopurinol (Zyloprim) 300 MG tablet Other Relevant Orders CBC and differential Comprehensive metabolic panel Uric acid Acute bilateral low back pain with right-sided sciatica Relevant Medications tiZANidine (Zanaflex) 4 MG tablet JAN (generalized anxiety disorder) (CMS/HCC) Relevant Medications sertraline (Zoloft) 50 MG tablet busPIRone (Buspar) 15 MG tablet Body mass index (BMI) 40.0-44.9, adult (CMS/HCC) Morbid (severe) obesity due to excess calories (CMS/HCC) Discussed with patient their BMI (actual, verses recommended). We have also discussed lifestyle modifications: attempts to perform physical activity as chronic conditions allow, also to monitor dietary intake: increasing protein/fruits/veggies and lowering carb intake (unless contraindicated). Limit sodas, juices, and sugary drinks. Is on GLP-1 for diabetes Screening for prostate cancer Relevant Orders PSA Associated Problem(s): Hyperuricemia On allopurinol Check labs yearly, and prn dose change or change in symptoms Associated Problem(s): Dyslipidemia (CMS/[facility]) On statin therapy Check labs yearly and as needed Associated Problem(s): Depression with anxiety Current meds: buspar, sertraline PHQ 9=7 JAN 7=8 Wants to stay at dose on sertraline, however increase buspirone 10 15mg TID prn Called in 30 day script to [facility] in [place] 06/29/24 10:07 am #30 day , 90 pills Associated Problem(s): Type 2 diabetes mellitus without complication, without long-term current use of insulin Check blood sugars daily, notify if <70 [...] diet low in carbohydrates, and simple sugars. Current meds: ozempic, glipizide, asa, statin, arb/hctz A1c: 5.9% 06/29/24 Associated Problem(s): Morbid (severe) obesity due to excess calories (CMS/HCC) Discussed with patient their BMI (actual, verses recommended). We have also discussed lifestyle modifications: attempts to perform physical activity as chronic conditions allow, also to monitor dietary intake: increasing protein/fruits/veggies and lowering carb intake (unless contraindicated). Limit sodas, juices, and sugary drinks. Is on GLP-1 for diabetes Associated Problem(s): Essential hypertension (CMS/HCC) Please check blood pressure daily and record DASH diet Limit caffeine Take medication as directed Contact office if chest pain, pressure, dizziness, shortness of breath, swelling legs Recommend slow position changes Current meds: amlodipine, carvedilol, arb/hydrochlorothiazide, Associated Problem(s): Sleep apnea You have a diagnosis of obstructive sleep apnea. It is recommended that you wear your PAP device any time while in bed sleeping. Not using the PAP device can increase your risk of elevated/uncontrolled high blood pressure, atrial fibrillation, heart attack, stroke, or sudden . Compliance with PAP: could not tolerate this documented in this encounter [facility] 06-29-2024 Instructions Jenn Barry NP - 06/29/2024 9:20 AM EDT Fasting labs: 8 hours Increase buspirone to 15mg every 8 hours as needed for anxiety documented in this encounter [facility] 01-20-2024 Telephone encounter Note The prior auth for the dexcom was denied because he is not currently using insulin. [facility] 01-20-2024 Miscellaneous Notes The prior auth for the dexcom was denied because he is not currently using insulin. documented in this encounter [facility] 12-30-2023 History of Presen t illness Narrative [...] were not included. Subjective Patient ID: Hair Brenner is a 48 y.o. male who presents for Follow-up (/). HPI Specialists: Dr. Ramos- Ortho Dr. Vides-Cardiology (no longer follows) HTN: [...] GLOBULIN RATIO 1.1 Resulting Agency [facility] DMII: Currently taking Glipizide 5mg BID Ozempic [...] Problem List Items Addressed This Visit Dyslipidemia ([facility]) Currently taking Pravastatin 40mg Denies any myalgias. Most recent Lipid Panel done 5 months ago- WNL Continue current regimen. Essential hypertension ([facility]) Currently taking losartan-hydrochlorothiazide 100-25 Amlodipine 10mg Carvedilol 25mg Does not check BP at home; Denies orthostatic changes, dizziness, cough, shortness of breath, swelling in extremities. Continue current regimen. Given BP log, advised pt to record BP and bring log back with them to next visit. Type 2 diabetes mellitus without complication, without long-term current use of insulin ([facility]) - Primary Currently taking Glipizide 5mg BID [...] do not improve. documented in this encounter [facility] 12-30-2023 Instructions Anna White NP - 12/30/2023 9:00 AM EDT Referral sent to GI for colonoscopy- they will call you. If you don't hear from them in 2 weeks, call my office! Have A1C completed. Try taking miralax to help ease constipation. Call if stomach cramping doesn't subside. documented in this encounter [facility] 10-06-2023 History of Presen t illness Narrative Discharge Criteria Outpatients must meet criteria 1 through 7. Up to restroom, void sufficient amount. Yes. Gait steady when up. 1. Minimum 30 minutes after last dose of sedative medication, minimum 120 minutes after last dose of reversal agent. Yes 2. Systolic BP stable within 20 mmHg for 30 minutes & systolic BP between 90 & 180 or within 10 mmHg of baseline. Yes 3. Pulse between 60 and 100 or within 10 bpm of baseline. Yes 4. Spontaneous respiratory rate >/= 10 per minute. Yes 5. SaO2 >/= 95 or >/= baseline. Yes 6. Able to cough and swallow or return to baseline function. Yes 7. Alert and oriented or return to baseline mental status. Yes 8. Demonstrates controlled, coordinated movements, ambulates with steady gait, or return to baseline activity function. Yes 9. Minimal or no pain or nausea, or at a level tolerable and acceptable to patient. Yes 10. Takes and retains oral fluids as allowed. Yes 11. Procedural / perioperative site stable. Minimal or no bleeding. Yes 12. If GI endoscopy procedure, minimal or no abdominal distention or passing flatus. Yes 13. Written discharge instructions and emergency telephone number provided. Yes 14. Accompanied by a responsible adult. Yes Adult patient discharged from facility without responsible person meets above criteria plus the following: a) remains awake without stimulus for 30 minutes b) oriented appropriate for age c) all vital signs stable d) no significant risk of losing protective reflexes e) able to maintain pre-procedure mobility without assistance f) no nausea or dizziness g) transportation arrangements that do not require patient to operate motor Vehicle. Yes Pt arrives for procedure with 17 1/2 year old dgtr Ying as ups driver to take pt home. Pt states she is his only ride home and feels very comfortable with his dgtr taking him home. He states this is the only way he can have the procedure done as there is no other person he can call to take him home-they have no other family in the area. Discussed with dairy frozen manager Mya CHRISTIANSON, RN who also discussed with Risk Management-Susana Carrasco who states that as long as pt is comfortable with his dgtr taking him home and there is no one else, the procedure can continue as scheduled. [facility] Preadmission Testing Name: Hair Brenner : 1975 Patient (home) Procedure: RIGHT CUBITAL TUNNEL RELEASE - Right Monitor Anesthesia Care Date of Procedure: 10/06/2023 Surgeon: Carlito Leung, DO Ht: 185.4 cm (6' 1 ) Wt: Weight - Scale: (!) 149.7 kg (330 lb) Wt method: Stated Allergies: No Known Allergies There were no vitals filed for this visit. No LMP for male patient. Do you take blood thinners? [x] Yes [] No Instructed to stop blood thinners prior to procedure? [x] Yes [] No [] N/A Do you have sleep apnea? [x] Yes NO CPAP [] No Do you have acid reflux ? [] Yes [x] No Do you have hiatal hernia? [] Yes [x] No Do you ever experience motion sickness? [x] Yes [] No Have you had a respiratory infection or sore throat in last 4 weeks before surgery? [] Yes [x] No Do you have poorly controlled asthma or COPD? Difficulty with intubation in past? [] Yes [x] No [] Yes [] No Do you have a history of angina in the last month or symptomatic arrhythmia? [] Yes [x] No Do you have significant central nervous system disease? [] Yes [] No Have you had an EKG, labs, or chest xray in last 12 months? If yes provide copies to anesthesia [] Yes [] No [] Lab [] EKG [] CXR Have you had a stress test? [x] Yes [] No When/where:[facility] Was it normal? [x] Yes [] No Do you or your family have a history of Malignant Hyperthermia? [] Yes [x] No Do you smoke? [] Yes [x] No Please refrain from smoking on the day of surgery. Patient instructed on: [x] NPO Status [x] Meds to Take [x] Hold GLP-1 Receptor Agonist [x] Ride Home [x] No Jewelry/Contact Lenses/Nail Sami [] Prep/Lax/Clear Liquids [] Chlorhexidene DOS Patient Needs [] HCG [x] Blood Sugar [] PT/INR [] T&S Do you have any metal allergies? [] Yes [x] No If yes, to what metals: Patient instructed on the pre-operative, intra-operative, and post-operative process? Yes Medication instructions reviewed with patient? Yes documented in this encounter [facility] 10-05-2023 [facility] Discharg e Carlito Vidal, - 10/05/2023 7:15 PM EDT Orthopedic Instructions: -Weight bearing status: No lifting, pulling, or pushing with the right upper extremity. Maintain sling -Keep dressing clean and dry. -Starting 3 days after surgery, Ok to remove sabrina wrap and cotton roll. Leave surgical dressing that looks like a band aid on until follow up appointment. Ok to shower but no soaks or baths. -Ice (20 minutes on and off 1 hour) and elevate (above heart) as needed for swelling/pain -Drink plenty of fluids. -Call the office or come to Emergency Room if signs of infection appear (hot, swollen, red, draining pus, fever) -Take medications as prescribed. -Wean off narcotics (percocet/norco) as soon as possible. Do not take tylenol if still taking narcotics. -No alcoholic beverages or driving/operating machinery while on narcotics -Follow up with in his office in 10-14 days after surgery/discharge. documented in this encounter [facility] 03-13-2022 Evaluation note Encounter Date Diagnosis Assessment [...] no improvement in 2 to 3 days. [facility] Other 07-20-2022 Evaluation note* Encounter Date Diagnosis [...] the ER for worsening symptoms or concern [facility] Other 2022 Evaluation note* Encounter Date Diagnosis [...] is agreeable at this time Apr, Other [facility] material was printed [facility] Other 11-29-2021 Evaluation note* Encounter Date Diagnosis [...] care instructions given in writting by [facility] Care At Home document [facility] Other Evaluation noteNo assessment information available [facility] Work Phone: Evaluation note* Diagnosis Type 2 diabetes mellitus without complication, without long-term current use of insulin (CMS/[facility])- Primary Dyslipidemia (CMS/HCC) Other and unspecified hyperlipidemia Essential hypertension (CMS/HCC) Unspecified essential hypertension Positive colorectal cancer screening using Cologuard test Screening for colon cancer Special screening for malignant neoplasms, colon Constipation, unspecified constipation type documented in this encounter [facility] HealthcareEvaluation note* Diagnosis Encounter for screening for [...] insulin (CMS/HCC)- Primary documented in this encounter [facility] HealthcareEvaluation note* Diagnosis Encounter for screening [...] insulin (CMS/HCC) documented in this encounter [facility]* [...] anxiety disorder documented in this encounter [facility]* [...] Generalized anxiety disorder documented in this encounter [facility] HealthcareEvaluation note* Diagnosis Post-op pain- Primary Other acute postoperative pain [facility]* Diagnosis Encounter for screening for malignant [...] Unspecified essential hypertension documented in this encounter [facility] HealthcareEvaluation note* Diagnosis Encounter for screening for malignant neoplasm of colon- Primary Essential hypertension (CMS/HCC) Unspecified essential hypertension Type 2 diabetes mellitus without complication, without long-term current use of insulin Dyslipidemia (CMS/HCC) Other and unspecified hyperlipidemia Depression [...] without complication, without long-term current use of insulin- Primary Essential hypertension (CMS/HCC) Unspecified essential hypertension Acute bilateral low back pain with right-sided sciatica Essential hypertension (CMS/HCC)- Primary Unspecified essential hypertension Type 2 diabetes mellitus without complication, without long-term current use of insulin Acute bilateral low back pain with right-sided sciatica Entrapment of right ulnar nerve- Primary Essential hypertension (CMS/HCC) Unspecified essential hypertension Type 2 diabetes mellitus without complication, without long-term current use of insulin JAN (generalized anxiety disorder) (CMS/HCC) Generalized anxiety disorder Hyperuricemia Other abnormal blood chemistry Acute bilateral low back pain with right-sided sciatica Dyslipidemia (CMS/HCC) Other and unspecified hyperlipidemia Pre-operative clearance Unspecified pre-operative examination 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 Carrier or suspected carrier of Methicillin resistant Staphylococcus aureus Type 2 diabetes mellitus without complication, without long-term current use of insulin- Primary Dyslipidemia (CMS/HCC) Other and unspecified hyperlipidemia Essential hypertension (CMS/HCC) Unspecified essential hypertension Positive colorectal cancer screening using Cologuard test Screening for colon cancer Special screening for malignant neoplasms, colon Constipation, unspecified constipation type Obstructive sleep apnea syndrome- Primary Obstructive sleep apnea (adult) (pediatric) Morbid (severe) obesity due to excess calories (CMS/HCC) Body mass index (BMI) 40.0-44.9, adult (CMS/HCC) Essential hypertension (CMS/HCC) Unspecified essential hypertension Type 2 diabetes mellitus without complication, without long-term current use of insulin Depression with anxiety Dysthymic disorder Dyslipidemia (CMS/HCC) Other and unspecified hyperlipidemia Hyperuricemia Other abnormal blood chemistry Screening for prostate cancer Special screening for malignant neoplasm of prostate JAN (generalized anxiety disorder) (CMS/HCC) Generalized anxiety disorder Acute bilateral low back pain with right-sided sciatica documented in this encounter [facility] HealthcareEvaluation note* Diagnosis Encounter for screening for malignant neoplasm of colon- Primary Essential hypertension (CMS/HCC) Unspecified essential hypertension Type 2 diabetes mellitus without complication, without long-term current use of insulin Dyslipidemia (CMS/HCC) Other and unspecified hyperlipidemia Depression [...] without complication, without long-term current use of insulin- Primary Essential hypertension (CMS/HCC) Unspecified essential hypertension Acute bilateral low back pain with right-sided sciatica Essential hypertension (CMS/HCC)- Primary Unspecified essential hypertension Type 2 diabetes mellitus without complication, without long-term current use of insulin Acute bilateral low back pain with right-sided sciatica Entrapment of right ulnar nerve- Primary Essential hypertension (CMS/HCC) Unspecified essential hypertension Type 2 diabetes mellitus without complication, without long-term current use of insulin JAN (generalized anxiety disorder) (CMS/HCC) Generalized anxiety disorder Hyperuricemia Other abnormal blood chemistry Acute bilateral low back pain with right-sided sciatica Dyslipidemia (CMS/HCC) Other and unspecified hyperlipidemia Pre-operative clearance Unspecified pre-operative examination 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 Carrier or suspected carrier of Methicillin resistant Staphylococcus aureus Type 2 diabetes mellitus without complication, without long-term current use of insulin- Primary Dyslipidemia (CMS/HCC) Other and unspecified hyperlipidemia Essential hypertension (CMS/HCC) Unspecified essential hypertension Positive colorectal cancer screening using Cologuard test Screening for colon cancer Special screening for malignant neoplasms, colon Constipation, unspecified constipation type Obstructive sleep apnea syndrome- Primary Obstructive sleep apnea (adult) (pediatric) Morbid (severe) obesity due to excess calories (CMS/HCC) Body mass index (BMI) 40.0-44.9, adult (CMS/HCC) Essential hypertension (CMS/HCC) Unspecified essential hypertension Type 2 diabetes mellitus without complication, without long-term current use of insulin Depression with anxiety Dysthymic disorder Dyslipidemia (CMS/HCC) Other and unspecified hyperlipidemia Hyperuricemia Other abnormal blood chemistry Screening for prostate cancer Special screening for malignant neoplasm of prostate JAN (generalized anxiety disorder) (CMS/HCC) Generalized anxiety disorder Acute bilateral low back pain with right-sided sciatica documented in this encounter [facility] HealthcareEvaluation note* Diagnosis Encounter for screening for malignant neoplasm of colon- Primary Essential hypertension Unspecified essential hypertension Type 2 diabetes mellitus without complication, without long-term current use of insulin (HCC) Dyslipidemia Other and unspecified hyperlipidemia Depression with anxiety Dysthymic disorder Hyperuricemia Other abnormal blood chemistry Morbid obesity (CMS-HCC) Morbid obesity Acute bilateral low back pain with right-sided sciatica Annual physical exam Routine general medical examination at a [facility] care facility Acute bilateral low back pain with right-sided sciatica- Primary Acute bilateral low back pain with right-sided sciatica Type 2 diabetes mellitus without complication, without long-term current use of insulin (HCC)- Primary Essential hypertension Unspecified essential hypertension Acute bilateral low back pain with right-sided sciatica Essential hypertension- Primary Unspecified essential hypertension Type 2 diabetes mellitus without complication, without long-term current use of insulin (HCC) Acute bilateral low back pain with right-sided sciatica Entrapment of right ulnar nerve- Primary Essential hypertension Unspecified essential hypertension Type 2 diabetes mellitus without complication, without long-term current use of insulin (HCC) JAN (generalized anxiety disorder) Generalized anxiety disorder Hyperuricemia Other abnormal blood chemistry Acute bilateral low back pain with right-sided sciatica Dyslipidemia Other and unspecified hyperlipidemia Pre-operative clearance Unspecified pre-operative examination 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 Carrier or suspected carrier of Methicillin resistant Staphylococcus aureus Type 2 diabetes mellitus without complication, without long-term current use of insulin (HCC)- Primary Dyslipidemia Other and unspecified hyperlipidemia Essential hypertension Unspecified essential hypertension Positive colorectal cancer screening using Cologuard test Screening for colon cancer Special screening for malignant neoplasms, colon Constipation, unspecified constipation type Obstructive sleep apnea syndrome- Primary Obstructive sleep apnea (adult) (pediatric) Morbid (severe) obesity due to excess calories ([facility]-HCC) Body mass index (BMI) 40.0-44.9, adult ([facility]-HCC) Essential hypertension Unspecified essential hypertension Type 2 diabetes mellitus without complication, without long-term current use of insulin (HCC) Depression with anxiety Dysthymic disorder Dyslipidemia Other and unspecified hyperlipidemia Hyperuricemia Other abnormal blood chemistry Screening for prostate cancer Special screening for malignant neoplasm of prostate JAN (generalized anxiety disorder) Generalized anxiety disorder Acute bilateral low back pain with right-sided sciatica Dyslipidemia- Primary Other and unspecified hyperlipidemia documented in this encounter [facility] HealthcareEvaluation note* Diagnosis Encounter for screening for malignant neoplasm of colon- Primary Essential hypertension Unspecified essential hypertension Type 2 diabetes mellitus without complication, without long-term current use of insulin (HCC) Dyslipidemia Other and unspecified hyperlipidemia Depression with anxiety Dysthymic disorder Hyperuricemia Other abnormal blood chemistry Morbid obesity ([facility]-HCC) Morbid obesity Acute bilateral low back pain with right-sided sciatica Annual physical exam Routine general medical examination at a health care facility Acute bilateral low back pain with right-sided sciatica- Primary Acute bilateral low back pain with right-sided sciatica Type 2 diabetes mellitus without complication, without long-term current use of insulin (HCC)- Primary Essential hypertension Unspecified essential hypertension Acute bilateral low back pain with right-sided sciatica Essential hypertension- Primary Unspecified essential hypertension Type 2 diabetes mellitus without complication, without long-term current use of insulin (HCC) Acute bilateral low back pain with right-sided sciatica Entrapment of right ulnar nerve- Primary Essential hypertension Unspecified essential hypertension Type 2 diabetes mellitus without complication, without long-term current use of insulin (HCC) JAN (generalized anxiety disorder) Generalized anxiety disorder Hyperuricemia Other abnormal blood chemistry Acute bilateral low back pain with right-sided sciatica Dyslipidemia Other and unspecified hyperlipidemia Pre-operative clearance Unspecified pre-operative examination 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 Carrier or suspected carrier of Methicillin resistant Staphylococcus aureus Type 2 diabetes mellitus without complication, without long-term current use of insulin (HCC)- Primary Dyslipidemia Other and unspecified hyperlipidemia Essential hypertension Unspecified essential hypertension Positive colorectal cancer screening using Cologuard test Screening for colon cancer Special screening for malignant neoplasms, colon Constipation, unspecified constipation type Obstructive sleep apnea syndrome- Primary Obstructive sleep apnea (adult) (pediatric) Morbid (severe) obesity due to excess calories ([facility]) Body mass index (BMI) 40.0-44.9, adult ([facility]) Essential hypertension Unspecified essential hypertension Type 2 diabetes mellitus without complication, without long-term current use of insulin (HCC) Depression with anxiety Dysthymic disorder Dyslipidemia Other and unspecified hyperlipidemia Hyperuricemia Other abnormal blood chemistry Screening for prostate cancer Special screening for malignant neoplasm of prostate JAN (generalized anxiety disorder) Generalized anxiety disorder Acute bilateral low back pain with right-sided sciatica Dyslipidemia Other and unspecified hyperlipidemia documented in this encounter [facility] HealthcareEvaluation note* Diagnosis Encounter for screening for malignant neoplasm of colon- Primary Essential hypertension Unspecified essential hypertension Type 2 diabetes mellitus without complication, without long-term current use of insulin (HCC) Dyslipidemia Other and unspecified hyperlipidemia Depression with anxiety Dysthymic disorder Hyperuricemia Other abnormal blood chemistry Morbid obesity ([facility]) Morbid obesity Acute bilateral low back pain with right-sided sciatica Annual physical exam Routine general medical examination at a health care facility Acute bilateral low back pain with right-sided sciatica- Primary Acute bilateral low back pain with right-sided sciatica Type 2 diabetes mellitus without complication, without long-term current use of insulin (HCC)- Primary Essential hypertension Unspecified essential hypertension Acute bilateral low back pain with right-sided sciatica Essential hypertension- Primary Unspecified essential hypertension Type 2 diabetes mellitus without complication, without long-term current use of insulin (HCC) Acute bilateral low back pain with right-sided sciatica Entrapment of right ulnar nerve- Primary Essential hypertension Unspecified essential hypertension Type 2 diabetes mellitus without complication, without long-term current use of insulin (HCC) JAN (generalized anxiety disorder) Generalized anxiety disorder Hyperuricemia Other abnormal blood chemistry Acute bilateral low back pain with right-sided sciatica Dyslipidemia Other and unspecified hyperlipidemia Pre-operative clearance Unspecified pre-operative examination 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 Carrier or suspected carrier of Methicillin resistant Staphylococcus aureus Type 2 diabetes mellitus without complication, without long-term current use of insulin ([facility])- Primary Dyslipidemia Other and unspecified hyperlipidemia Essential hypertension Unspecified essential hypertension Positive colorectal cancer screening using Cologuard test Screening for colon cancer Special screening for malignant neoplasms, colon Constipation, unspecified constipation type Obstructive sleep apnea syndrome- Primary Obstructive sleep apnea (adult) (pediatric) Morbid (severe) obesity due to excess calories ([facility]) Body mass index (BMI) 40.0-44.9, adult ([facility]) Essential hypertension Unspecified essential hypertension Type 2 diabetes mellitus without complication, without long-term current use of insulin (HCC) Depression with anxiety Dysthymic disorder Dyslipidemia Other and unspecified hyperlipidemia Hyperuricemia Other abnormal blood chemistry Screening for prostate cancer Special screening for malignant neoplasm of prostate JAN (generalized anxiety disorder) Generalized anxiety disorder Acute bilateral low back pain with right-sided sciatica Type 2 diabetes mellitus without complication, without long-term current use of insulin (HCC)- Primary Essential hypertension Unspecified essential hypertension Morbid (severe) obesity due to excess calories ([facility]) JAN (generalized anxiety disorder) Generalized anxiety disorder Depression with anxiety Dysthymic disorder Type 2 diabetes mellitus with other specified complication (HCC) Hyperlipidemia, unspecified Positive colorectal cancer screening using Cologuard test Hyperuricemia Other abnormal blood chemistry Acute bilateral low back pain with right-sided sciatica Pain of right heel documented in this encounter [facility] eZWayEvaluation note* Diagnosis Positive colorectal cancer screening using Cologuard test- Primary Pre-op testing Preoperative examination, unspecified Positive colorectal cancer screening using Cologuard test documented in this encounter [facility] Gen[facility] MediumEvaluation note* Diagnosis Positive colorectal cancer screening using Cologuard test- Primary Rectal bleeding Hemorrhage of rectum and anus documented in this encounter [facility] Narrative - Reported* Type Description Date Medical History HTN Medical History Pre diabetic Medical History Anger issues Medical History Hyperlipidemia Salsify Other ReYoucruit for referral (narrative)* Consultation (Routine) - Pending Review Specialty Diagnoses / Procedures Referred By Luis morel Referred To Contact Gastroenterology Diagnoses Positive colorectal cancer screening using Cologuard test Screening for colon cancer Procedures IA OFFICE/OUTPATIENT [facility] 60 MINUTES Anna White NP [address] [place] [phone] Pati Corona MD [address] [place] [id number] Referral ID Status Reason Start Date Expiration Date Visits Requested Visits Authorized [id number] Pending Review Specialty Services Required 12/30/2023 06/27/2024 1 1 [facility] N[facility]* Outpatient Service (Routine) - Not Required - RTA Specialty Diagnoses / Procedures Referred By Contac t Referred To Contact Cardiology Diagnoses Pre-op testing Procedures EKG 12 Lead Virginia Ramos, RN [employer] [address] [facility] [address] [place] [address] Phone: tel: fax: Referral ID Status Reason Start Date Expiration Date V isits Requested Visits Authorized [id number] Not Required - RTA 10/05/2024 10/05/2025 1 [facility] Auth/Cert Specialty Diagnoses / Procedures Referred By Conthu t Referred To Contact Diagnoses Positive colorectal cancer screening using Cologuard test Procedures IA COLON CA SCRN NOT HI RSK IND IA COLORECTAL SCRN; HI RISK IND IA ESOPHAGOGASTRODUODENOSCOPY TRANSORAL DIAGNOSTIC IA EGD TRANSORAL BIOPSY SINGLE/MULTIPLE IA EGD BALLOON DILATION ESOPHAGUS <30 MM DIAM COLORECTAL CANCER SCREENING, NOT HIGH RISK Morgan Lovell MD [address] [facility] [address] [place] [address] Phone: tel: fax: [facility] [address] [place] [address] Referral ID Status Reason Start Date Expiration Date Visits Re quested Visits Authorized [id number] 1 1 [facility] Chief Complaint and Reason for Visit Chief Complaint Dysuria Advance Directives No Advanced Directives Records Found Advance Directive Response Recorded Date/ Time Advance Directives No October 10 8:59pm Latest Code Status on File Code Status Date Activated Date Inactivated Comments Full Code 10/06/2023 10:13 AM Date Activated Date Inactivated Comments 10/06/2023 10:13 AM 10/06/2023 4:33 PM Date Activated Date Inactivated Comments 10/06/2023 10:13 AM 10/06/2023 4:33 PM Summary Purpose Family History No Family History Records FoundNo Family History Records FoundNo Family History Records FoundNo Family History Records FoundNo Family History Records FoundNo Family History Records FoundNo Family History Records Found Additional Source Comments REASON FOR VISIT (unrecogniz ed section and content) Reason Comments Follow-up Reason Onset Date Comments Med Refill 03/08/2024 Reason Onset Date Comments Med Refill 03/25/2024 Reason Onset Date Comments Med Refill 03/23/2024 Specialty Diagnoses / Procedures Referred By Luis t Referred To Contact Diagnoses Cubital tunnel syndrome, right Cubital tunnel syndrome, right [G56.21] Procedures IA NEUROPLASTY &/TRANSPOSITION ULNAR NERVE ELBOW RIGHT CUBITAL TUNNEL RELEASE Carlito Leung, DO [address] [place] [address] [facility] [address] [place] [address] Referral ID Status Reason Start Date Expiration Date Visits Re quested Visits Authorized [id number] 1 1 Reason Onset Date Comments Med Refill 05/06/2024 Reason Comments Diabetes Reason Comments Diabetes Care Teams (unrecognized sec tion and content) Team Status: Inactive Member Role Status Dates Mamie Cannon NP-C Attending Provider Active 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 Relationship Specialty Start Date End Date Richard Harris MD [address] [place] [phone] PCP - General Family Medicine 11/04/23 Anna White NP [address] [place] [phone] Nurse Practitioner Family Medicine 11/04/23 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 Relationship Specialty Start Date End Date Richard Harris MD [address] [place] [phone] PCP - General Family Medicine 11/04/23 Anna White NP [address] [place] [address] Nurse Practitioner Family Medicine 11/04/23 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 Relationship Specialty Start Date End Date Richard Harris MD [address] [place] [phone] PCP - General Family Medicine 11/04/23 Anna White NP [address] [place] [address] Nurse Practitioner Family Medicine 11/04/23 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 Relationship Specialty Start Date End Date Anna White NP [address] [place] [address] Nurse Practitioner Family Medicine 11/04/23 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 Relationship Specialty Start Date End Date Anna White NP [address] [place] [address] Nurse Practitioner Family Medicine 11/04/23 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 Relationship Specialty Start Date End Date Anna White NP [address] [place] [address] Nurse Practitioner Family Medicine 11/04/23 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 Relationship Specialty Start Date End Date Anna White NP [address] [place] [address] Nurse Practitioner Family Medicine 11/04/23 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 Relationship Specialty Start Date End Date Shaikh Cordoba MD [address] [place] [address] PCP - General 10/06/23 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 Relationship Specialty Start Date End Date Richard Harris MD [address] [place] [address] PCP - General Family Medicine 04/26/24 Anna White NP [address] [place] [phone] Nurse Practitioner Family Medicine 11/04/23 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 Relationship Specialty Start Date End Date Richard Harris MD [address] [place] [phone] PCP - General Family Medicine 04/26/24 Anna White NP Nurse Practitioner Family Medicine 11/04/23 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 Relationship Specialty Start Date End Date Richard Harris MD [address] [place] [phone] PCP - General Family Medicine 04/26/24 Anna White NP Nurse Practitioner Family Medicine 11/04/23 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 Relationship Specialty Start Date End Date Richard Harris MD [address] [place] [phone] PCP - General Family Medicine 04/26/24 Anna White NP Nurse Practitioner Family Medicine 11/04/23 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 Relationship Specialty Start Date End Date Jenn Barry, RN [employer] [address] [place] [phone] PCP - General Nurse Practitioner 09/01/24 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 Relationship Specialty Start Date End Date Richard Harris MD [address] [place] [phone] PCP - General Family Medicine 04/26/24 Anna White NP Nurse Practitioner Family Medicine 11/04/23 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 Relationship Specialty Start Date End Date Richard Harris MD [address] [place] [phone] PCP - General Family Medicine 04/26/24 Anna White NP Nurse Practitioner Family Medicine 11/04/23 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 Relationship Specialty Start Date End Date Richard Harris MD [address] [place] [phone] PCP - General Family Medicine 04/26/24 Anna White NP Nurse Practitioner Family Medicine 11/04/23 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 Relationship Specialty Start Date End Date Richard Harris MD [address] [place] [phone] PCP - General Family Medicine 04/26/24 Anna White NP Nurse Practitioner Family Medicine 11/04/23 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 Relationship Specialty Start Date End Date Jenn Barry APRN - [employer] [address] [place] [phone] PCP - General Nurse Practitioner 09/01/24 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 Relationship Specialty Start Date End Date Jenn Barry APRN - [employer] [address] [place] [phone] PCP - General Nurse Practitioner 09/01/24 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 Relationship Specialty Start Date End Date Richard Harris MD [address] [place] [phone] PCP - General Family Medicine 04/26/24 Anna White NP Nurse Practitioner Family Medicine 11/04/23 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 Relationship Specialty Start Date End Date Richard Harris MD [address] [place] [phone] PCP - General Family Medicine 04/26/24 Anna White NP Nurse Practitioner Family Medicine 11/04/23 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 Relationship Specialty Start Date End Date Jenn Barry, RN [employer] [address] [place] [phone] PCP - General Nurse Practitioner 09/01/24 Goals (unrecognized section and content) Goals may be documented in a n alternate section (unrecognized sect ion and content) No Status Records FoundNo Status Records FoundNo Status Records FoundNo Status Records FoundNo Status Records FoundNo Status Records FoundNo Status Records Found INFORMATION SOURCE (unrecogn ized section and content) DATE CREATED AUTHOR 10/18/2021 [facility] DATE CREATED AUTHOR AUTHOR'S ORGANIZ ATION 08/01/2022 [facility] DATE CREATED AUTHOR AUTHOR'S ORGANIZ ATION 08/24/2023 [facility] DATE CREATED AUTHOR AUTHOR'S ORGANIZ ATION 04/06/2024 [facility] DATE CREATED AUTHOR AUTHOR'S ORGANIZ ATION 10/03/2024 [facility] DATE CREATED AUTHOR AUTHOR'S ORGANIZ ATION 11/01/2024 Keyona Vargas [facility] DATE CREATED AUTHOR AUTHOR'S ORGANIZ ATION 11/16/2024 Keyona Justin vickey Ordered Prescriptions (unrec ognized section and content) Prescription Sig Dispensed Refills Start Date End Da te cephALEXin (KEFLEX) 500 MG capsule Take 1 capsule by mouth 3 times daily for 7 days 21 capsule 0 10/06/2023 10/13/2023 HYDROcodone-acetaminoph en (NORCO) 5-325 MG per tabletIndications:Post- op pain Take 1 tablet by mouth every 6 hours as needed for Pain for up to 7 days. Intended supply: 7 days. Take lowest dose possible to manage pain Max Daily Amount: 4 tablets 28 tablet 0 10/06/2023 10/13/2023 Scheduled Active and Recently Administ ered Medications (unrecognized section and content) Medication Order 10/04/2023 10/05/2023 10/06/2023 ceFAZolin (ANCEF) 3,000 mg in sodium chloride 0.9 % 100 mL IVPB (COMPLETED) 3,000 mg, IntraVENous, FINANCIAL REPORTING ACCOUNTANT TO O.R., 1 dose, On Fri10/06/23 at 1030, Antimicrobial Indications: Surgical Prophylaxis, Administer within 1 hour prior to incision. Recommend to repeat in 3-4 hours after initial dose if still intra-op., Pre-op (day of surgery) 1127 (New Bag - Prov ider: Kendal Araya RN - Comment: pre op atb)1157 (Due: Stopped - Provider: Kendal Araya RN) sodium chloride flush 0.9 % injection 5-40 mL 5-40 mL, IntraVENous, EVERY 12 HOURS SCHEDULED (2 times per day), First dose on Fri10/06/23 at 1030, Until Discontinued, For Line Patency: Peripheral IV = 5 mL; Midline or Central Line = 10 mL/lumen. If following IV push medication, administer flush at same rate as the IV push. Flush volume is determined by type of infusion therapy being given. For non-viscous solutions use: Peripheral IV = 5 mL Midline or Central Line = 10 mL/lumen For viscous solutions (i.e. blood components, parenteral nutrition, contrast media, or after obtaining blood sample) use: Peripheral IV = 10 mL Midline or Central Line = 20 mL/lumen, Pre-op (day of surgery) 1030 (Due)2100 (Due) Continuous Medication Order 10/04/2023 10/05/2023 10/06/2023 lactated ringers IV soln infusion IntraVENous, at 125 mL/hr, CONTINUOUS, Starting on Fri10/06/23 at 1030, Pre-op (day of surgery) 1014 (New Bag - Prov ider: Gris Renteria RN)1130 (NoRateChange - Provider: JAH Green CRNA)1259 (Anesthesia Volume Adjustment - Provider: JAH Green CRNA) PRN Medication Order 10/04/2023 10/05/2023 10/06/2023 0.9 % sodium chloride infusion IntraVENous, at 5-250 mL/hr, PRN, if patient receiving piggyback infusions and maintenance fluids are not ordered OR KVO fluids to protect IV site / prevent frequent line interruptions/ long duration, Starting on Fri10/06/23 at 1013, For piggyback infusion, administer at same rate as piggyback for a total of 25 mL. Enter 25 mL into dose field and piggyback rate into rate field of order. If piggyback is infusing at a rate less than 100 mL/hr, enter 25 mL into dose field and 100 mL/hr into rate field of order. For KVO fluids, enter rate of 20 mL/hr or less into rate field of order., Pre-op (day of surgery) BUPivacaine-EPINEPHrine PF (MARCAINE-w/EPINEPHrine) 0.5% -[id number] injection (CANCELED) PRN, Starting on Fri10/06/23 at 1257, Until Fri10/06/23 at 1309, Intra-op 1257 (Given - Provid er: Carlito Leung DO - Comment: used 30mls for case) sod chloride IRR soln 0.9 % irrigation (COMPLETED) CONTINUOUS PRN, Starting on Fri10/06/23 at 1224, Intra-op 1224 (New Bag - Prov ider: Carlito Leung DO - Comment: poured into sterile basin on sterile field) sodium chloride flush 0.9 % injection 5-40 mL 5-40 mL, IntraVENous, PRN, Starting on 10/06/23 at 1013, Until Discontinued, Line Care, After every IV line use, For Line Patency: Peripheral IV = 5 mL; Midline or Central Line = 10 mL/lumen. If following IV push medication, administer flush at same rate as the IV push. Flush volume is determined by type of infusion therapy being given. For non-viscous solutions use: Peripheral IV = 5 mL Midline or Central Line = 10 mL/lumen For viscous solutions (i.e. blood components, parenteral nutrition, contrast media, or after obtaining blood sample) use: Peripheral IV = 10 mL Midline or Central Line = 20 mL/lumen, Pre-op (day of surgery) Continuous Medication Order 10/26/2024 10/27/2024 10/28/2024 lactated ringers infusion IntraVENous, at 100 mL/hr, CONTINUOUS, Starting on Dominique 10/28/24 at 0845, Pre-op (day of surgery) 0829 (New Bag - Prov ider: Sarah Foote RN)0918 (NoRateChange - Provider: JAH Green CRNA)0941 (Anesthesia Volume Adjustment - Provider: JAH Green CRNA) FOR RECORDS PERTAINING TO PATIENTS WHO ARE [...] BE BASED ON THE PRIMARY CLINICAL RECORDS. [employer] [facility] provides no warranty or guarantee of the accuracy or completeness of information in this document.
--- NOTE | 2025-01-10 13:56 | PM.CN ---
Consult Note: HPI Data of Consult Patient: known to practice within the last 3 years Consult date: 01/10/25 Requesting Physician: Swapnil Perkins MD Primary Care Provider: Jenn Barry NP Consult Narrative Reason for consult: low back, left leg pain Narrative: 49yom who presents for assessment. notes worsening low back, left leg pain. states that typically has a flare a few times per year that self-resolves within a few days, but recently has not resolved like before. lumbar mri reviewed, shows disc bluge with nerve root impingement at l5-s1. uses muscle relaxer, tylenol. denies adverse med side effects. cc:: CC: Swapnil Perkins MD Review of Systems ROS Status of ROS 10 or more systems reviewed and unremarkable except as noted in history and below PFSH [facility] Medical History Neck pain ?M54.2 - Cervicalgia (ICD-10) Obesity ?E66.9 - Obesity, unspecified (ICD-10) Back pain ?M54.9 - Dorsalgia, unspecified (ICD-10) Anxiety ?F41.9 - Anxiety disorder, unspecified (ICD-10) Diabetes ?E11.9 - Type 2 diabetes mellitus without complications (ICD-10) Kidney stone ?N20.0 - Calculus of kidney (ICD-10) MARKO treated with BiPAP ?G47.33 - Obstructive sleep apnea (adult) (pediatric) (ICD-10) Sleep apnea ?G47.30 - Sleep apnea, unspecified (ICD-10) Asthma ?J45.909 - Unspecified asthma, uncomplicated (ICD-10) Angina at rest ?I20.89 - Other forms of angina pectoris (ICD-10) HTN (hypertension) ?I10 - Essential (primary) hypertension (ICD-10) Surgical History History of carpal tunnel release ?Z98.890 - Other specified postprocedural states (ICD-10) Meds Home Medications and Allergies Home Medications ?Medication ?Instructions ?Recorded ?Confirmed ?Type allopurinol 300 mg tablet 300 mg PO Q12H 10/24/22 03/22/24 History amlodipine 10 mg tablet 10 mg PO QDAY 10/24/22 03/22/24 History aspirin 81 mg tablet,delayed 81 mg PO QDAY 10/24/22 03/22/24 History release buspirone 10 mg tablet 10 mg PO QDAY 10/24/22 03/22/24 History carvedilol 25 mg tablet 25 mg PO Q12H 10/24/22 03/22/24 History losartan 100 1 tab PO QDAY 10/24/22 03/22/24 History mg-hydrochlorothiazide 25 mg tablet pravastatin 40 mg tablet 40 mg PO QDAY 10/24/22 03/08/24 History tizanidine 4 mg tablet 4 mg PO Q12H 10/24/22 03/22/24 History Held on 03/22/24. Instructions: on hold semaglutide 1 mg/dose (2 mg/1.5 1 mg subcut QWEEK 11/03/23 03/22/24 History mL) subcutaneous pen injector baclofen 10 mg tablet 10 mg PO TID PRN muscle spasm #90 03/03/24 03/22/24 Rx tabs meloxicam 7.5 mg tablet 7.5 mg PO BID PRN pain #60 tabs 03/03/24 03/22/24 Rx semaglutide 2 mg/dose (8 mg/3 mL) 2 mg subcut QWEEK 03/22/24 03/22/24 History subcutaneous pen injector (Ozempic) sertraline 50 mg tablet 50 mg PO DAILY 03/22/24 03/22/24 History spironolactone 25 mg tablet 25 mg PO DAILY 03/22/24 03/22/24 History (Aldactone) Allergies Allergy/AdvReac Type Severity Reaction Status Date / Time No Known Drug Allergies Allergy Verified 03/22/24 09:15 Exam Narrative Exam Narrative: Psych-alert and oriented x 3. Attentive and appropriate, constitutionally normal, displays normal mood and affect per situation. There are no obvious deficits in memory, reasoning, or intellect.? Skin-no obvious rashes, bruising, erythema noted to the patient's area of pain.? Extremities- extremities are warm with minimal edema and palpable pulses. Lumbar-tenderness to palpation noted in the lumbar spine and paraspinal musculature. Pain is not elicited with flexion, extension, and lateral rotation of the lumbar spine. Range of motion is not diminished with these motions. Facet loading maneuvers are negative.? Strength-noted to be unremarkable. Sensory-no notable sensory deficits in the bilateral lower extremities to touch or pinprick in all dermatomal distributions with the exception to decreased sensation to the left l4, 5 dermatomal distribution Coordination remains intact.? Gait remains non-antalgic. Assessment and Plan Assessment and Plan (1) Lumbar stenosis with neurogenic claudication: Plan 49yom who presents for assessment. imaging reviewed, as noted. discussed that given his symptoms and imaging, likely that he had radicular component from his disc pathology. at this point, will try mdp and lyrica 50mg tid. will have him follow up in 3-4 weeks and if still an issue, then will order a lumbar mri without contrast. he is in agreement. follow up in 3-4 weeks.
== END 2025-01-10 13:31 | disposition home or self-care (01) ==
LOC: PM 13:31
PROVIDERS: PCP Nurse Practitioner; Visit Provider Anesthesiology
DX: M48.062 Spinal stenosis, lumbar region with neurogenic claudication (principal)
CPT/HCPCS: G0463

== ENCOUNTER 2025-02-03 12:35 | Outpatient (OUT) | payer OTHER, SELFPAY ==
--- OUTSIDE RECORDS SUMMARY | 2023-08-29 06:00 | XMS_ITS ---
Author Organization [facility] Address [address] [place] [address] Care Team Providers Care Shield Operator Name Role Phone SHAIKH HERRMANN Primary Care Provider Carlito Kendall Unavailable [phone] Loretta Mcdonald Unavailable [phone] Allergies No Known Allergies REASON FOR VISIT EMG review bilateral upper extremity Medications Medication SIG (Take, Route, Frequency, Duration) Notes Start Date End Date Status sertraline ActiveaspirinActiveallopurinolActivetiZANidineActivepravastatinActivecarvedilol ActiveamLODIPineActivehydroCHLOROthiazideActivelosartanActivebusPIRoneActive Social History Tobacco Use: Social History Observation Description Date Details (start date - stop date) Never Smoker NA - NA AUDIT-C (Standard) Question Answer Notes Did you have a drink containing alcohol in the p ast year? No Cmtmdf0XoukuydwarhnboUdkobvupKpatrcd Control (Standard) Question Answer Notes Tobacco use: Nonsmoker Problems Problem Type SNOMED Code ICD Code Onset Dates Problem Status W/U Status Risk Notes Problem Lesion of ulnar nerve (177367409 ) Cubital tunnel syndrome, left (G56.22) Activeconfirmed Encounters Encounter Location Date Provider Diagnosis [address] [place] [address] [place] [address] 08/29/2023 Loretta Mcdonald Cubital tunnel syndrome, left G56.22 ; Spinal stenosis, lumbosacral region M48.07 ; Radiculopathy, lumbar region M54.16 ; DDD (degenerative disc disease), lumbar M51.36 and Other intervertebral disc displacement, lumbosacral region M51.27 Assessments Encounter Date Diagnosis (ICD Code) Assessment Notes Treatment Notes Treatment Clinical Notes Section Notes 08/29/2023 Cubital tunnel syndrome, left (I CD-10 - G56.22) 1. Left cubital tunnel syndrome 2. Right hand numbness 3 Lumbar spinal stenosis 4. Lumbar radiculopathy 5. L3-5 degenerative disc disease and herniation with stenosis and radiculopathy 6. L5-S1 disc bulge with left neuroforaminal stenosis 08/29/2023Spinal stenosis, lumbosacral region (ICD-10 - M48.07) 1. Left cubital tunnel syndrome 2. Right hand numbness 3 Lumbar spinal stenosis 4. Lumbar radiculopathy 5. L3-5 degenerative disc disease and herniation with stenosis and radiculopathy 6. L5-S1 disc bulge with left neuroforaminal stenosis 08/29/2023adiculopathy, lumbar region (ICD-10 - M54.16) 1. Left cubital tunnel syndrome 2. Right hand numbness 3 Lumbar spinal stenosis 4. Lumbar radiculopathy 5. L3-5 degenerative disc disease and herniation with stenosis and radiculopathy 6. L5-S1 disc bulge with left neuroforaminal stenosis 4DDD (degenerative disc disease), lumbar (ICD-10 - M51.36) 1. Left cubital tunnel syndrome 2. Right hand numbness 3 Lumbar spinal stenosis 4. Lumbar radiculopathy 5. L3-5 degenerative disc disease and herniation with stenosis and radiculopathy 6. L5-S1 disc bulge with left neuroforaminal stenosis 08/29/2023Other intervertebral disc displacement, lumbosacral region (ICD-10 - M51.27) 1. Left cubital tunnel syndrome 2. Right hand numbness 3 Lumbar spinal stenosis 4. Lumbar radiculopathy 5. L3-5 degenerative disc disease and herniation with stenosis and radiculopathy 6. L5-S1 disc bulge with left neuroforaminal stenosis 08/29/2023Other Patient evaluated and plan established by Dr. Parker. At this time, Dr. Parker discussed EMG results with the patient. 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 There was no evidence of a cervical radiculopathy, brachial plexopathy or diffuse neuropathic process. We will refer him to Dr. Leung for further evaluation. The patient is very much in agreement with the treatment and/or diagnostic plan set forth and all questions were answered to thepatient's satisfaction. Thanks once again. If we can be of further service to your patients with disorders of the spine, cervical, thoracic, or lumbar, please do not hesitate to contact Dr. Parker. Best regards, 1. Left cubital tunnel syndrome 2. Right hand numbness 3 Lumbar spinal stenosis 4. Lumbar radiculopathy 5. L3-5 degenerative disc disease and herniation with stenosis and radiculopathy 6. L5-S1 disc bulge with left neuroforaminal stenosis Plan Of Treatment Treatment Notes Assessment Notes Other Patient evaluated and plan established by Dr. Parker. At this time, Dr. Parker discussed EMG results with the patient. 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 There was no evidence of a cervical radiculopathy, brachial plexopathy or diffuse neuropathic process. We will refer him to Dr. Leung for further evaluation. The patient is very much in agreement with the treatment and/or diagnostic plan set forth and all questions were answered to the patient's satisfaction. Thanks once again. If we can be of further service to your patients with disorders of the spine, cervical, thoracic, or lumbar, please do not hesitate to contact Dr. Parker. Best regards, Next Appt Details Follow Up: prn, Reason: Progress Notes * KEVON BRENNER GDOB:[birth year] (49 yo M)Acc No.[id number]:08/29/2023 Patient:?KEVON BRENNER :?Loretta Iraheta, PADOB:1975???Age:48 Y???Sex:MaleDate:08/29/2023hone:[phone]:106 CAMILO HUNTER SHERIDAN, [id number]:YIN ALIZE Subjective: * Chief Complaints: * 1 . EMG review bilateral upper extremity. * HPI: ???General Follow Up Information:? Dictated by Loretta Iraheta PA-C The patient returns to the office 7 weeks since their last appointment. At that time, they were complaining of right hand numbness, primarily the ring and middle finger. He does have a history of right carpal tunnel release in the past. We set him up with an EMG of the bilateral upper extremity. The patient returns to the office today to discuss results. Patient denies bowel or bladder incontinence or urinary retention. * ROS: ???Genitourinary:?Denies?Incontinence.? * Medical History: D iabetes, High Blood Pressure, Depression, Anxiety, Kidney trouble, Sleep apnea, CPAP Machine: Yes. * Family History: N o Family History documented.. * Social History: E xercise regularly D o you exercise? N o. W hat is your place of residence? W here do you live? P rivate home. A ANABELA-C (Standard) D id you have a drink containing alcohol in the past year? N o, P oints 0 , I nterpretation N egative. T obacco Control (Standard) T obacco use: N onsmoker. * Medications: T aking busPIRone , Taking amLODIPine , Taking hydroCHLOROthiazide , Taking losartan , Taking carvedilol , Taking sertraline , Taking aspirin , Taking allopurinol , Taking tiZANidine , Taking pravastatin , Medication List reviewed and reconciled with the patient * Allergies: N .K.D.A. Objective: * Vitals: * Examination: ???General examination: ???On examination, the patient is well-developed, well-nourished, well-groomed, alert and oriented x3, normal mood. Patient moves both upper extremities equally. Neurovascularly intactbilateral upper extremities. Decreased sensation to the right ring and middle fingers. ???X-ray Imaging Studies: ???None taken today. ???MRI Imaging Studies: ? Assessment: * Assessment: 1.?Cubital tunnel syndrome, left - G56.22 (Primary)???2.?Spinal stenosis, l umbosacral region - M48.07???3.?Radiculopathy, lumbar region - M54.16?&#160 ;?4.?DDD (degenerative disc disease), lumbar - M51.36???5.?Other intervertebral disc displacement, lumbosacral region - M51.27???1. Left cubital tunnel syndrome 2. Right hand numbness 3 Lumbar spinal stenosis 4. Lumbar radiculopathy 5. L3-5 degenerative disc disease and herniation with stenosis and radiculopathy 6. L5-S1 disc bulge with left neuroforaminal stenosis. Plan: * Treatment: Notes: Patient evaluated and plan established by Dr. Parker. At this time, Dr. Parker discussed EMG results with the patient. Bilateral upper extremity EMG showed evidence of a mild to moderateleft ulnar motor neuropathy proximal to wrist starting in the forearm but worse around the elbow segment, likely due to compression in that area which can be from external compression versus a cubital tunnel syndrome. There was no evidence of a cervical radiculopathy, brachial plexopathy or diffuse neuropathic process. We will refer him to Dr. Leung for further evaluation. The patient is very much in agreement with the treatment and/or diagnostic plan set forth and all questions were answered to the patient's satisfaction. Thanks once again. If we can be of further service to your patients with disorders of the spine, cervical, thoracic, or lumbar, please do not hesitate to contact Dr. Parker. Best regards, ?? * Follow Up: p rn Forms: * Images: * Electronic signature of Loretta Mcdonald PA-C on 02/03/2025 at 12:39 PM ESTSign off status: Pending * Provider: ANURADHA Harvey Date: 0 08/29/2023 Generated for Printing/Faxing/eTransmitting on:?02/03/2025 12:39 PM EST History and Physical Notes * HPI (History of Present Illness) CategorySub-CategoryDetailNotesCategory NotesGeneral Follow Up Information Dictated by Loretta Iraheta PA-C The patient returns to the office 7 weeks since their last appointment. At that time, they were complaining of right hand numbness, primarily the ring and middle finger. He does have a history of right carpal tunnel release in the past. We set him up with an EMG of the bilateral upper extremity. The patient returns to the office today to discuss results. Patient denies bowel or bladder incontinence or urinary retention. Examination CategorySub-CategoryDetailNotesCategory NotesGeneral examinationOn examination, the patient is well-developed, well-nourished, well-groomed, alert and oriented x3,normal mood. Patient moves both upper extremities equally. Neurovascularly intact bilateral upper extremities. Decreased sensation to the right ring and middle fingers.X-ray Imaging StudiesNone taken today.MRI Imaging Studies
--- OUTSIDE RECORDS SUMMARY | 2023-12-15 08:10 | XMS_ITS ---
Author Organization [facility] Address [address] [place] [address] Care Team Providers Care Drag Out Worker Name Role Phone SHAIKH HERRMANN Primary Care Provider Carlito Kendall Unavailable [phone] REASON FOR VISIT sp right cubital tunnel Encounters Encounter Location Date Provider Diagnosis [facility] [facility] [address] [place] [address] [place] [address] 12/15/2023 Carlito Leung Plan Of Treatment No Information Progress Notes * KEVON BRENNER GDOB:[birth year] (49 yo M)Acc No.[id number]:12/15/2023 Progress Notes Patient: KEVON RICHARDS :?Carlito Leung, DODOB:1975???Age:48 Y ???Sex:MaleDate:12/15/2023hone:[phone]:[address] [place], [id number]:SHAIKH ALIZE Subjective: * Chief Complaints: * 1 . Sp right cubital tunnel. * Medical History: Objective: * Vitals: Assessment: Plan: * Treatment: Forms: * Images: * Electronic signature of Carlito Leung DO on 02/03/2025 at 12:38 PM ESTSign off status: Pending * Provider: Mya Leung DO Date: 0 12/15/2023 Generated for Printing/Faxing/eTransmitting on:?02/03/2025 12:38 PM EST
--- OUTSIDE RECORDS SUMMARY | 2025-01-20 12:48 | XMS_ITS | Encounter Summary ---
Author Organization [facility] Address [address], [address] [place] [address] Care Team Providers Care Biomass Plant Technician Name Role Phone Jenn Barry APRN, NP Primary Care Provide r Encounter Details DateTypeDepartmentCare Team (Latest Contact Info)Otzfqexjbkc22/30/2025 1:48 PM EDT - 01/20/2025 11:59 PM EDTHospital Encounter [place] [id number] Discharge Disposition: Home or Self Care Social History Tobacco UseTypesPacks/DayYears UsedDateSmoking Tobacco: NeverPassive Smoke Exposure: NeverSmokeless Tobacco: NeverAlcohol UseStandard Drinks/WeekComments Never0 (1 standard drink = 0.6 oz pure alcohol)Interpersonal Safety Domain Source: IP Abuse ScreeningAnswerDate RecordedPhysical jruhtJhbtxu14/07/2025 Verbal kirzcMoexfd80/07/2025Emotional eykboChrdhd35/07/2025Financial abuseDenies 10/28/2024Sexual dzgalQbaumm81/07/2025Sex and Gender InformationValueDate RecordedSex Assigned at MjuwfJofd11/12/2025 9:31 PM EDTLegal YgmQkbq5305/03/2012 6:41 PM ESTGender IdentityNot on fileSexual OrientationNot on filedocumented as of this encounter Medications at Time of Discharge MedicationSigDispense QuantityRefillsLast FilledStart DateEnd Date losartan-hydroCHLOROthiazide (HYZAAR) 100-25 MG per tablet Take 1 tablet by mouth daily atorvastatin (LIPITOR) 20 MG tablet Take 1 tablet by mouth tmdbomw5909/02/2024 OZEMPIC, 2 MG/DOSE, 8 MG/3ML SOPN sc injection Inject 2 mg into the skin every 7 days08/04/2024 busPIRone (BUSPAR) 5 MG tablet Take 1 tablet by mouth 3 times daily as needed amLODIPine (NORVASC) 2.5 MG tablet Take 1 tablet by mouth daily carvedilol (COREG) 3.125 MG tablet Take 1 tablet by mouth daily sertraline (ZOLOFT) 25 MG tablet Take 1 tablet by mouth daily aspirin 81 MG EC tablet Take 1 tablet by mouth daily allopurinol (ZYLOPRIM) 100 MG tablet Take 1 tablet by mouth daily tiZANidine (ZANAFLEX) 2 MG tablet Take 1 tablet by mouth every 6 hours as neededdocumented as of this encounter Plan of Treatment DateTypeDepartmentCare Team (Latest Contact Info)Vkqmmadcuyk33/21/2025 8:15 PM ESTAppointment [place] [phone] Diagnosticdocumented as of this encounter Procedures Procedure NamePriorityDate/TimeAssociated DiagnosisCommentsCBC WITH AUTO GAPEJODNWOAKFadwbwr57/30/2025 1:51 PM EDT VITAMIN D 25 ALOZLTHBgejoel02/30/2025 1:51 PM EDT T3, NDTJUgbtkgz80/30/2025 1:51 PM EDT BHIGpcofkr52/30/2025 1:51 PM EDT T4, FENANhfuekq57/30/2025 1:51 PM EDT VITAMIN Z66Awecvfy53/30/2025 1:51 PM EDT COMPREHENSIVE METABOLIC OORSWQnhlzsa13/30/2025 1:51 PM EDT documented in this encounter Results * (ABNORMAL) Vitamin D 25 Hydroxy (01/20/2025 1:51 PM EDT)ComponentValueRef RangeTest MethodAnalysis TimePerformed AtPathologist SignatureVit D, 25-Cpxamej06.6(L)30.0 - 100.0 ng/mL01/20/2025 1:51 PM EDTMERCY [facility] Comment: Reference Range: Vitamin D status ? Range Deficiency <20 ng/mL Mild Deficiency ? 20-30 ng/mL Sufficiency ?30-100 ng/mL Toxicity >100 ng/mL Specimen (Source)Anatomical Location / LateralityCollection Method / Volume Collection TimeReceived Time01/20/2025 1:51 PM EDT1 1:52 PM EDT Narrative Authorizing ProviderResult TypeResult StatusJenn Barry ELECTRICAL MAINTENANCE SUPERVISOR - NPCHEMISTRY ORDERABLESFinal ResultPerforming OrganizationAddressCity/State/ZIP CodePhone Number [facility] [address] [place] [address], [facility] [phone] [place] [address], [facility] [phone] * TSH (01/20/2025 1:51 PM EDT)ComponentValueRef RangeTest MethodAnalysis Time Performed AtPathologist SignatureTSH1.010.27 - 4.20 uIU/mL01/20/2025 1:51 PM [facility]DS[facility] LABSpecimen (Source)Anatomical Location / LateralityCollection Method / VolumeCollection TimeReceived Time01/20/2025 1:51 PM EDT1 1:52 PM EDT Narrative Authorizing ProviderResult TypeResult StatusLisa Satish Barry ELECTRICAL MAINTENANCE SUPERVISOR - NPCHEMISTRY ORDERABLESFinal ResultPerforming OrganizationAddressCity/State/ZIP CodePhone Number [facility] [address] [place] [address], [facility] [phone] * T4, Free (01/20/2025 1:51 PM EDT)ComponentValueRef RangeTest MethodAnalysis TimePerformed AtPathologist SignatureT4 Free1.20.92 - 1.68 ng/dL01/20/2025 1:51 PM EDTMERCY LABORATORIESSpecimen (Source)Anatomical Location / Laterality Collection Method / VolumeCollection TimeReceived Time01/20/2025 1:51 PM EDT 01/20/2025 1:52 PM EDT Narrative Authorizing ProviderResult TypeResult StatusLi Satish Asha ELECTRICAL MAINTENANCE SUPERVISOR - NPCHEMISTRY ORDERABLESFinal ResultPerforming OrganizationAddressCity/State/ZIP CodePhone Number [facility] [address] [phone] [phone] * T3, Free (01/20/2025 1:51 PM EDT)ComponentValueRef RangeTest MethodAnalysis TimePerformed AtPathologist SignatureT3, Free3.082.00 - 4.40 pg/mL01/20/2025 1:51 PM EDTMERCY LABORATORIESSpecimen (Source)Anatomical Location / Laterality Collection Method / VolumeCollection TimeReceived Time01/20/2025 1:51 PM EDT 01/20/2025 1:52 PM EDT Narrative Authorizing ProviderResult TypeResult StatusJenn Satish Asha ELECTRICAL MAINTENANCE SUPERVISOR - NPCHEMISTRY ORDERABLESFinal ResultPerforming OrganizationAddressCity/State/ZIP CodePhone Number [facility] [address] [place] [address], [facility] [phone] [phone] * (ABNORMAL) Comprehensive Metabolic Panel (01/20/2025 1:51 PM EDT)Component ValueRef RangeTest MethodAnalysis TimePerformed AtPathologist SignatureSodium 150993 - 145 mmol/L1 1:51 PM [facility] Potassium3.5(L)3.7 - 5.3 mmol/L1 1:51 PM [facility] HYOIvulmqzc69724 - 107 mmol/L1 1:51 PM [facility] WYLCZ08892 - 31 mmol/L1 1:51 PM [facility] LABAnion Upm299 - 16 mmol/L1 1:51 PM [facility] BNURfxdzdb694(H)74 - 99 mg/dL01/20/2025 1:51 PM [facility] OTYHVH292 - 20 mg/dL01/20/2025 1:51 PM [facility] LABCreatinine0.80.70 - 1.20 mg/dL01/20/2025 1:51 PM [facility] LABEst, Glom Filt Rate>90>60 mL/min/1.47s55701/20/2025 1:51 PM [facility] LABComment: ? These results are not intended for use in patients <18 years of age. ? eGFR results are calculated without a race factor using the 2020 CKD-EPI equation. Careful clinical correlation is recommended, particularly when comparing to results calculated using previous equations. The CKD-EPI equation is less accurate in patients with extremes of muscle mass, extra-renal metabolism of creatine, excessive creatine ingestion, or following therapy that affects renal tubular secretion. BUN/Creatinine Lxtgu931 - 1:51 PM [facility] LABCalcium8.88.6 - 10.4 mg/dL01/20/2025 1:51 PM [facility] LABTotal Protein6.76.6 - 8.7 g/dL01/20/2025 1:51 PM [facility] LABAlbumin4.03.5 - 5.2 g/dL01/20/2025 1:51 PM [facility] LABAlbumin/Globulin Ratio1.51.0 - 2.510 1:51 PM [facility] LABTotal Bilirubin0.50.00 - 1.20 mg/dL01/20/2025 1:51 PM [facility] LABAlkaline Ofoqpptdkfz54411 - 129 U/L1 1:51 PM [facility] FMPMMC0760 - 50 U/L10 1:51 PM [facility] HEPXBK7377 - 50 U/L1 1:51 PM [facility] LABSpecimen (Source)Anatomical Location / Laterality Collection Method / VolumeCollection TimeReceived Time01/20/2025 1:51 PM EDT 01/20/2025 1:52 PM EDT Narrative Authorizing ProviderResult TypeResult StatusLuannesa Satish Barry ELECTRICAL MAINTENANCE SUPERVISOR - NPCHEMISTRY ORDERABLESFinal ResultPerforming OrganizationAddressCity/State/ZIP CodePhone Number [facility] [address] [phone] * (ABNORMAL) CBC with Auto Differential (01/20/2025 1:51 PM EDT)ComponentValue Ref RangeTest MethodAnalysis TimePerformed AtPathologist YrltbvpqfGRE32.7(H) 3.5 - 11.3 k/uL01/20/2025 1:51 PM [facility] LABRBC5.24 4.21 - 5.77 m/uL01/20/2025 1:51 PM [facility] Yzgsqlvbqg15.213.0 - 17.0 g/dL01/20/2025 1:51 PM [facility] VWUVwqlxrlfuj55.540.7 - 50.3 %01/20/2025 1:51 PM [facility] PKGBEF16.882.6 - 102.9 fL01/20/2025 1:51 PM [facility] PJJWKZ47.025.2 - 33.5 pg01/20/2025 1:51 PM [facility] ZQNPHKC73.428.4 - 34.8 g/dL01/20/2025 1:51 PM [facility] ILHWNI71.711.8 - 14.4 %01/20/2025 1:51 PM [facility] NPMPujildrvw297342 - 453 k/uL01/20/2025 1:51 PM [facility] MURNIY37.38.1 - 13.5 fL01/20/2025 1:51 PM [facility] LABNRBC Automated0.00.0 per 100 WBC01/20/2025 1:51 PM [facility] LABNeutrophils %74(H)36 - 65 %01/20/2025 1:51 PM [facility] LABLymphocytes %17(L)24 - 43 %01/20/2025 1:51 PM [facility] LABMonocytes %73 - 12 %01/20/2025 1:51 PM [facility] LABEosinophils %11 - 4 %01/20/2025 1:51 PM [facility] LABBasophils %00 - 2 %01/20/2025 1:51 PM EDT [facility] LABImmature Granulocytes %1(H)0 %01/20/2025 1:51 PM [facility] LABNeutrophils Absolute9.38(H)1.50 - 8.10 k/uL01/20/2025 1:51 PM [facility] LABLymphocytes Absolute 2.171.10 - 3.70 k/uL01/20/2025 1:51 PM [facility] Monocytes Absolute0.940.10 - 1.20 k/uL01/20/2025 1:51 PM [facility] LABEosinophils Absolute0.130.00 - 0.44 k/uL01/20/2025 1:51 PM [facility] LABBasophils Absolute0.030.00 - 0.20 k/uL 01/20/2025 1:51 PM [facility] LABImmature Granulocytes Absolute0.060.00 - 0.30 k/uL01/20/2025 1:51 PM [facility] LABSpecimen (Source)Anatomical Location / LateralityCollection Method / Volume Collection TimeReceived Time01/20/2025 1:51 PM EDT1 1:52 PM EDT Narrative Authorizing ProviderResult TypeResult StatusJenn Barry ELECTRICAL MAINTENANCE SUPERVISOR - NPHEMATOLOGY ORDERABLESFinal ResultPerforming OrganizationAddressCity/State/ZIP CodePhone Number [facility] [address] [address], [facility] [phone] * Vitamin B12 (01/20/2025 1:51 PM EDT)ComponentValueRef RangeTest MethodAnalysis TimePerformed AtPathologist SignatureVitamin B-65882642 - 1245 pg/mL01/20/2025 1:51 PM EDTMERCY LABORATORIESSpecimen (Source)Anatomical Location / Laterality Collection Method / VolumeCollection TimeReceived Time01/20/2025 1:51 PM EDT 01/20/2025 1:52 PM EDT Narrative Authorizing ProviderResult TypeResult David Barry APRN - NPCHEMISTRY ORDERABLESFinal ResultPerforming OrganizationAddressCity/State/ZIP CodePhone Number [address] [address], [facility] [phone] [address], [facility] [phone] documented in this encounter Visit Diagnoses Not on filedocumented in this encounter Care Teams Team MemberRelationshipSpecialtyStart DateEnd Date Jenn Barry APRN - STORE GROUP MANAGER [address] [place] [address] PCP - GeneralNurse Practitioner09/01/24documented as of this encounter
--- OUTSIDE RECORDS SUMMARY | 2025-01-25 07:43 | XMS_ITS | Encounter Summary ---
Author Organization [facility] Address [address], [address] [place] [address] Care Team Providers Care Aviation Electrical Technician Name Role Phone Jenn Barry APRN - ANDREW Primary Care Provide r Reason for Visit * ReasonCommentsIllnessProductive green cough, congestion since Friday. Fever a few days ago. Concerned for bronchitis or pneumonia. Encounter Details DateTypeDepartmentCare Team (Latest Contact Info)Aijbxglxfti71/04/2025 7:43 AM EST - 01/25/2025 8:35 AM [facility] [place] [address] [place] [id number] Renee Aceves MD [address] [place] [address] Bronchitis (Primary Dx); Acute cough Discharge Disposition: Home or Self Care Social History Tobacco UseTypesPacks/DayYears UsedDateSmoking Tobacco: NeverPassive Smoke Exposure: NeverSmokeless Tobacco: NeverAlcohol UseStandard Drinks/WeekComments Never0 (1 standard drink = 0.6 oz pure alcohol)AUDIT-CAnswerDate RecordedQ1: How often do you have a drink containing alcohol?Never01/25/2025Q2: How many drinks containing alcohol do you have on a typical day when you are drinking?Patient does not drink01/25/2025Q3: How often do you have six or more drinks on one occasion?Never01/25/2025Interpersonal Safety Domain Source: IP Abuse Screening AnswerDate RecordedPhysical ecbifEydove27/07/2025Verbal roibgEzgcth34/09/2024 Emotional nczfgKkyppt41/07/2025Financial nodlwDmmhgz91/07/2025Sexual abuseDenies 10/28/2024Sex and Gender InformationValueDate RecordedSex Assigned at BirthMale 10/02/2024 9:31 PM EDTLegal VdjDskx5505/03/2012 6:41 PM ESTGender IdentityNot on fileSexual OrientationNot on filedocumented as of this encounter Last Filed Vital Signs Vital SignReadingTime TakenCommentsBlood Ykrslhcm728/9501/25/2025 8:31 AM ESTpt aware of BP and states he wants will monitor at fiyyMbnve54965/04/2025 7:40 AM JBAJzbicsobmqv30.3 ??C (99.1 ??F)01/25/2025 8:31 AM ESTRespiratory Rate20 01/25/2025 8:31 AM ESTOxygen Oiusidhcud21%01/25/2025 8:31 AM ESTInhaled Oxygen Concentration--Hzmxxj008.8 kg (306 lb)01/25/2025 7:40 AM ESTHeight--Body Mass Index40.3707 11:06 AM EDTdocumented in this encounter Functional Status documented as of this encounter Discharge Instructions * Discharge Instructions* Renee Aceves MD - 01/25/2025 8:24 AM EST Take your medication as indicated and prescribed. If you are given an antibiotic then, make sure you get the prescription filled and take the antibiotics until finished. Drink plenty of water while taking the antibiotics. Avoid drinking alcohol or drinks that have caffeine in it while taking antibiotics. For fever or pain use acetaminophen (Tylenol) or ibuprofen (Motrin / Advil), unless prescribed medications that have acetaminophen or ibuprofen (or similar medications) in it. PLEASE RETURN TO THE EMERGENCY DEPARTMENT IMMEDIATELY for worsening symptoms, shortness of breathing, change in the amount of sputum that you cough up or a change in the color of your sputum, using your inhaler more frequently or if your inhaler only lasts up to 2 hours (if given an inhaler), or ifyou develop any concerning symptoms such as: high fever not relieved by acetaminophen (Tylenol) and/or ibuprofen (Motrin / Advil), chills, shortness of breath, chest pain, feeling of your heart fluttering or racing, persistent nausea and/or vomiting, vomiting up blood, blood in your stool, loss of consciousness, numbness, weakness or tingling in the arms or legs or change in color of the extremities, changes in mental status, persistent headache, blurry vision, loss of bladder / bowel control, unable to follow up with your physician, or other any other care or concern. * Attachments The following attachments cannot be sent through Care Everywhere. * Nebulizers: General Info (Khmer) documented in this encounter Medications at Time of Discharge MedicationSigDispense QuantityRefillsLast FilledStart DateEnd Date azithromycin (ZITHROMAX) 250 MG tablet 500mg on day 1 followed by 250mg on days 2 - 5 6 tablet albuterol sulfate HFA (VENTOLIN HFA) 108 (90 Base) MCG/ACT inhaler Inhale 2 puffs into the lungs 4 times daily as needed for Wheezing 18 g 01/25/2025 benzonatate (TESSALON) 200 MG capsule Take 1 capsule by mouth 3 times daily as needed for Cough 30 capsule losartan-hydroCHLOROthiazide (HYZAAR) 100-25 MG per tablet Take 1 tablet by mouth daily atorvastatin (LIPITOR) 20 MG tablet Take 1 tablet by mouth edeivyr7409/02/2024 OZEMPIC, 2 MG/DOSE, 8 MG/3ML SOPN sc [...] Plan of Treatment DateTypeDepartmentCare Team (Latest Contact Info)Tqodbyczfap61/21/2025 8:15 PM ESTAppointment [place] [phone] Diagnosticdocumented as of this encounter Procedures Procedure NamePriorityDate/TimeAssociated DiagnosisCommentsCOVID-19, RAPIDSTAT 01/25/2025 7:11 AM EST RAPID INFLUENZA A/B PGXBFWSXMDCM20/04/2025 7:11 AM EST documented in this encounter Results * COVID-19, Rapid (01/25/2025 7:11 AM EST)ComponentValueRef RangeTest Method Analysis TimePerformed AtPathologist SignatureSpecimen Description .NASOPHARYNGEAL SWAB01/25/2025 7:11 AM [facility] SARS-CoV-2, RapidNot DetectedNot Wezaqyvc83/04/2025 7:11 AM [facility] LABComment: ? Rapid NAAT: ??The specimen is NEGATIVE for SARS-CoV-2, the novel coronavirus associated with COVID-19. ? The ID NOW COVID-19 assay is designed to detect the virus that causes COVID-19 in patients with signs and symptoms of infection who are suspected of COVID-19. An individual without symptoms of COVID-19 and who is not shedding SARS-CoV-2 virus would expect to have a negative (not detected) result in this assay. Negative results should be treated as presumptive and, if inconsistent with clinical signs and symptoms or necessary for patient management, should be tested with an alternative molecular assay. Negative results do not preclude SARS-CoV-2 infection and should not be used as the sole basis for patient management decisions. ? Methodology: Isothermal Nucleic Acid Amplification Specimen (Source)Anatomical Location / LateralityCollection Method / Volume Collection TimeReceived TimeNASOPHARYNGEAL SWAB / Uljtrtx3801/25/2025 7:11 AM EST 01/25/2025 7:46 AM EST Narrative Authorizing ProviderResult TypeResult StatusThais G Cintra MDMICROBIOLOGY - GENERAL ORDERABLESFinal ResultPerforming OrganizationAddressCity/State/ZIP Code Phone Number [facility] [address] [place], [place] [address] [phone] * Rapid influenza A/B antigens (01/25/2025 7:11 AM EST)ComponentValueRef Range Test MethodAnalysis TimePerformed AtPathologist SignatureFlu A AntigenNEGATIVE AABVLGJQ72/04/2025 7:11 AM [facility] LABComment:for Influenza A AntigenFlu B AixihdlNXZCWCXWXLWRLWNO27/04/2025 7:11 AM [facility] LABComment:for Influenza B Antigen.Specimen (Source) Anatomical Location / LateralityCollection Method / VolumeCollection Time Received TimeNASOPHARYNGEAL SWAB / Eqorhvb9301/25/2025 7:11 AM EST01/25/2025 7:45 AM EST Narrative Authorizing ProviderResult TypeResult StatusThais G Cintra MDMICROBIOLOGY - GENERAL ORDERABLESFinal ResultPerforming OrganizationAddressCity/State/ZIP Code Phone Number [facility] [address] [place] [address], [facility] [phone] documented in this encounter Visit Diagnoses Diagnosis Bronchitis- Primary Bronchitis, not specified as acute or chronic Acute cough documented in this encounter Administered Medications Medication OrderMAR ActionAction DateDoseRateSite azithromycin (ZITHROMAX) tablet 500 mg 500 mg, Oral, ONCE, 1 dose, On Fri01/25/25 at 0830, Antimicrobial Indications: Pneumonia (CAP) Given01/25/2025 8:30 AM AWF644 mgdocumented in this encounter Active and Recently Administered Medications Due to Daylight Saving Time, this section may contain times in both EDT and EST. Medication Order/ azithromycin (ZITHROMAX) tablet 500 mg (COMPLETED) 500 mg, Oral, ONCE, 1 dose, On Fri01/25/25 at 0830, Antimicrobial Indications: Pneumonia (CAP) * 0830 (Given - Provider: Lilli Burrell RN) documented in this encounter Additional Health Concerns InfectionOnset DateLast IndicatedResolved TimeCOVID-19 (Rule Out)01/25/2025 8:04 AM ESTdocumented as of this encounter Care Teams Team MemberRelationshipSpecialtyStart DateEnd Date Jenn Barry, CHEFS - FOOD AND BEVERAGE ASSOCIATE [address] [facility] [place] [phone] PCP - GeneralNurse Practitioner09/01/24documented as of this encounter
--- OUTSIDE RECORDS SUMMARY | 2025-01-30 14:55 | XMS_ITS | Encounter Summary ---
Author Organization [facility] Address [address], [address] [place] [address] Care Team Providers Care Cornice Maker Name Role Phone Jenn Barry APRN - ANDREW Primary Care Provide r Reason for Visit * ReasonCommentsCoughPt. Reports ongoing cough, diagnosed Friday with bronchitis, reports feeling better when first starting antibiotics but feels its coming right back. Pt. Reports sinus congestion. Intermittent wheezing, worse at night Encounter Details DateTypeDepartmentCare Team (Latest Contact Info)Ddscsbxakdo15/09/2025 2:55 PM EST - 01/30/2025 5:36 PM [facility] Emergency Department [address] [place] [address] Acute maxillary sinusitis, recurrence not specified (Primary Dx); Acute cough; Wheezing Discharge Disposition: Home or Self Care Social History Tobacco UseTypesPacks/DayYears UsedDateSmoking Tobacco: NeverPassive Smoke Exposure: NeverSmokeless Tobacco: NeverAlcohol UseStandard Drinks/WeekComments Never0 (1 standard drink = 0.6 oz pure alcohol)AUDIT-CAnswerDate RecordedQ1: How often do you have a drink containing alcohol?Never01/30/2025Q2: How many drinks containing alcohol do you have on a typical day when you are drinking?Patient does not drink01/30/2025Q3: How often do you have six or more drinks on one occasion?Never01/30/2025Interpersonal Safety Domain Source: IP Abuse Screening AnswerDate RecordedPhysical dzrtcZkzjiy13/07/2025Verbal belwuUidjpu57/07/2025 Emotional dbqwsSnqbuq48/07/2025Financial hghcuXqlxrg72/07/2025Sexual abuseDenies 10/28/2024Sex and Gender InformationValueDate RecordedSex Assigned at BirthMale 10/02/2024 9:31 PM EDTLegal DlhZgfp8105/03/2012 6:41 PM ESTGender IdentityNot on fileSexual OrientationNot on filedocumented as of this encounter Last Filed Vital Signs Vital SignReadingTime TakenCommentsBlood Ngrpbmng672/9501/30/2025 5:30 PM EST Zsnku175901/30/2025 5:30 PM TDXLbywmktiqdr09.7 ??C (98.1 ??F)01/30/2025 2:51 PM ESTRespiratory Oddi371604/01/2024 5:30 PM ESTOxygen Agasivyzso95%01/30/2025 5:30 PM ESTInhaled Oxygen Concentration--Seoefg128.8 kg (306 lb)01/30/2025 2:51 PM IZAVzmpaz404.4 cm (6' 1 )01/30/2025 2:51 PM ESTBody Mass Index40.37104/01/2024 2:51 PM ESTdocumented in this encounter Functional Status documented as of this encounter Discharge Instructions * Discharge Instructions* Sammy Sapp PA-C - 01/30/2025 5:22 PM EST Continue inhaler as prescribed follow-up with primary care. Return to have any symptoms worsen or new symptoms develop. * Attachments The following attachments cannot be sent through Care Everywhere. * Cough (Citizen [place]) * Sinusitis: Acute ([place]izen [place]) * Metered Dose Inhalers Without a Spacer (Citizen [place]) documented in this encounter Medications at Time of Discharge MedicationSigDispense QuantityRefillsLast FilledStart DateEnd Date amoxicillin-clavulanate (AUGMENTIN) 875-125 MG per tablet Take 1 tablet by mouth 2 times daily for 7 days 14 tablet methylPREDNISolone (MEDROL, BELA,) 4 MG tablet Take by mouth. 1 kit azithromycin (ZITHROMAX) 250 MG tablet 500mg on [...] MG tablet Take 1 tablet by mouth gdcimef9109/02/2024 OZEMPIC, 2 MG/DOSE, 8 MG/3ML SOPN sc [...] Plan of Treatment DateTypeDepartmentCare Team (Latest Contact Info)Rregopaenhi35/21/2025 8:15 PM ESTAppointment [facility] [address] [place], [place] [id number] Diagnosticdocumented as of this encounter Procedures Procedure NamePriorityDate/TimeAssociated DiagnosisCommentsCBC WITH AUTO MJGGROEKOIQRRDWO30/09/2025 3:45 PM EST BASIC METABOLIC JYSBXCMNN53/09/2025 3:45 PM EST XR CHEST WQXSAWOJLCAM24/09/2025 3:07 PM EST documented in this encounter Results * (ABNORMAL) BMP (01/30/2025 3:45 PM EST)ComponentValueRef RangeTest Method Analysis TimePerformed AtPathologist QijtmxbrwOrjupk489935 - 145 mmol/L 01/30/2025 3:45 PM [facility] LABPotassium3.73.7 - 5.3 mmol/L104/01/2024 3:45 PM [facility] WLRVtjvzyco35536 - 107 mmol/L104/01/2024 3:45 PM [facility] IGBLS22285 - 31 mmol/L104/01/2024 3:45 PM [facility] LABAnion Gap99 - 16 mmol/L104/01/2024 3:45 PM [facility] VPRCisvryx725(H)74 - 99 mg/dL01/30/2025 3:45 PM [facility] VCSNYN752 - 20 mg/dL01/30/2025 3:45 PM [facility] LABCreatinine0.70.70 - 1.20 mg/dL01/30/2025 3:45 PM [facility] LABEst, Glom Filt Rate>90>60 mL/min/1.99u10001/30/2025 3:45 PM [facility] LABComment: ? These results are not [...] therapy that affects renal tubular secretion. BUN/Creatinine Flmqa760 - 3:45 PM [facility] LABCalcium9.18.6 - 10.4 mg/dL01/30/2025 3:45 PM [facility] LABSpecimen (Source)Anatomical Location / LateralityCollection Method / Volume Collection TimeReceived TimeBloodBLOOD SPECIMEN / Jbumvbh1901/30/2025 3:45 PM EST 01/30/2025 3:48 PM EST Narrative Authorizing ProviderResult TypeResult StatusSammy LING-FISHER-TITUS MEDICAL CENTEREMISTRY ORDERABLESFinal ResultPerforming OrganizationAddressCity/State/ZIP CodePhone Number [facility] [address] [id number], [facility] [phone] * (ABNORMAL) CBC with Auto Differential (01/30/2025 3:45 PM EST)ComponentValue Ref RangeTest MethodAnalysis TimePerformed AtPathologist SignatureWBC9.03.5 - 11.3 k/uL01/30/2025 3:45 PM [facility] LABRBC4.684.21 - 5.77 m/uL01/30/2025 3:45 PM [facility] UYBBzyszunoyv10.8 13.0 - 17.0 g/dL01/30/2025 3:45 PM [facility] Dsabzedgrw25.5(L)40.7 - 50.3 %01/30/2025 3:45 PM [facility] FJNKUB94.582.6 - 102.9 fL01/30/2025 3:45 PM [facility] HLSZZK48.525.2 - 33.5 pg01/30/2025 3:45 PM [facility] JMQVAOQ37.128.4 - 34.8 g/dL01/30/2025 3:45 PM [facility] DXWCXM70.711.8 - 14.4 %01/30/2025 3:45 PM [facility] UKQZimzmiwoi128438 - 453 k/uL01/30/2025 3:45 PM [facility] LABMPV9.38.1 - 13.5 fL01/30/2025 3:45 PM [facility] LABNRBC Automated0.00.0 per 100 WBC01/30/2025 3:45 PM [facility] LABNeutrophils %6536 - 65 %01/30/2025 3:45 PM [facility] LABLymphocytes %2724 - 43 %01/30/2025 3:45 PM [facility] LABMonocytes %63 - 12 %01/30/2025 3:45 PM [facility] LABEosinophils %21 - 4 %01/30/2025 3:45 PM [facility] LABBasophils %00 - 2 %01/30/2025 3:45 PM [facility] LABImmature Granulocytes %00 %01/30/2025 3:45 PM EST [facility] LABNeutrophils Absolute5.841.50 - 8.10 k/uL 01/30/2025 3:45 PM [facility] LABLymphocytes Absolute2.40 1.10 - 3.70 k/uL01/30/2025 3:45 PM [facility] Monocytes Absolute0.490.10 - 1.20 k/uL01/30/2025 3:45 PM [facility] LABEosinophils Absolute0.190.00 - 0.44 k/uL01/30/2025 3:45 PM [facility] LABBasophils Absolute0.030.00 - 0.20 k/uL 01/30/2025 3:45 PM [facility] LABImmature Granulocytes Absolute0.030.00 - 0.30 k/uL01/30/2025 3:45 PM [facility] LABSpecimen (Source)Anatomical Location / LateralityCollection Method / Volume Collection TimeReceived TimeBloodBLOOD SPECIMEN / Aowcirx8801/30/2025 3:45 PM EST01/30/2025 3:48 PM EST Narrative Authorizing ProviderResult TypeResult StatusGemarie LING-CHEMATOLOGY ORDERABLESFinal ResultPerforming OrganizationAddressCity/State/ZIP CodePhone Number [facility] [address] [phone] * XR CHEST PORTABLE (01/30/2025 3:07 PM EST)Anatomical RegionLateralityModality ChestComputed RadiographySpecimen (Source)Anatomical Location / Laterality Collection Method / VolumeCollection TimeReceived Time01/30/2025 3:22 PM EST Impressions 01/30/2025 3:23 PM EST 1. No acute cardiopulmonary process. Narrative 01/30/2025 3:23 PM EST EXAM: 1 VIEW(S) XRAY OF THE CHEST 01/30/2025 03:07:52 PM COMPARISON: None available. CLINICAL HISTORY: cough. FINDINGS: LUNGS AND PLEURA: No focal pulmonary opacity. No pulmonary edema. No pleural effusion. No pneumothorax. HEART AND MEDIASTINUM: No acute abnormality of the cardiac and mediastinal silhouettes. BONES AND SOFT TISSUES: No acute osseous abnormality. Procedure Note Fito Woody MD - 01/30/2025 EXAM: 1 VIEW(S) XRAY OF THE CHEST 01/30/2025 03:07:52 PM COMPARISON: None available. CLINICAL HISTORY: cough. FINDINGS: LUNGS AND PLEURA: No focal pulmonary opacity. No pulmonary edema. No pleural effusion. No pneumothorax. HEART AND MEDIASTINUM: No acute abnormality of the cardiac and mediastinal silhouettes. BONES AND SOFT TISSUES: No acute osseous abnormality. IMPRESSION: 1. No acute cardiopulmonary process. Authorizing ProviderResult TypeResult StatusJarocho JOSE DIAGNOSTIC IMAGING ORDERABLESFinal Result documented in this encounter Visit Diagnoses Diagnosis Acute maxillary sinusitis, recurrence not specified- Primary Acute cough Wheezing documented in this encounter Administered Medications Medication OrderMAR ActionAction DateDoseRateSite ipratropium 0.5 mg-albuterol 2.5 mg (DUONEB) nebulizer solution 1 Dose 1 Dose, Inhalation, Once, 1 dose, On 01/30/25 at 1545, Initiate RT Bronchodilator Protocol: Yes - Inpatient Protocol Given01/30/2025 3:55 PM EST1 Dose methylPREDNISolone sodium succ (SOLU-MEDROL) 125 mg in sterile water 2 mL injection 125 mg, IntraVENous, ONCE, On 01/30/25 at 1545, For 1 dose, Reconstitute 125 mg vial with 2 mL diluent. Given01/30/2025 3:50 PM JKT193 mgdocumented in this encounter Active and Recently Administered Medications Times are shown in EST.Medication Order/ ipratropium 0.5 mg-albuterol 2.5 mg (DUONEB) nebulizer solution 1 Dose (COMPLETED) 1 Dose, Inhalation, Once, 1 dose, On 01/30/25 at 1545, Initiate RT Bronchodilator Protocol: Yes - Inpatient Protocol * 1555 (Given - Provider: Thea Reina RCP) methylPREDNISolone sodium succ (SOLU-MEDROL) 125 mg in sterile water 2 mL injection (COMPLETED) 125 mg, IntraVENous, ONCE, On 01/30/25 at 1545, For 1 dose, Reconstitute 125 mg vial with 2 mL diluent. * 1550 (Given - Provider: César Silva RN) documented in this encounter Care Teams Team MemberRelationshipSpecialtyStart DateEnd Date Jenn Barry, [employer] [address] [place] [address] PCP - GeneralNurse Practitioner09/01/24documented as of this encounter
--- OUTSIDE RECORDS SUMMARY | 2025-02-03 12:39 | XMS_ITS | Encounter Summary ---
Author Organization [facility] Address [address] [place] [address], [address] [place] [address] Care Team Providers Care Money Room Supervisor Name Role Phone Jenn Barry APRN - ANDREW Primary Care Provide r Encounter Details DateTypeDepartmentCare Team (Latest Contact Info)Eytsywdamjs06/04/2025Travel Social History Tobacco UseTypesPacks/DayYears UsedDateSmoking Tobacco: NeverPassive [...] Domain Source: IP Abuse Screening AnswerDate RecordedPhysical fvbuhTcwnol67/07/2025Verbal jrhzyDkeual78/07/2025 Emotional epwkkDgjqyy29/07/2025Financial nezdrQwpqjm09/07/2025Sexual abuseDenies 10/28/2024Sex and Gender InformationValueDate RecordedSex Assigned at BirthMale 10/02/2024 9:31 PM EDTLegal CymJcoh4905/03/2012 6:41 PM ESTGender IdentityNot on fileSexual OrientationNot on filedocumented as of this encounter Functional Status documented as of this encounter Plan of Treatment DateTypeDepartmentCare Team (Latest Contact Info)Ydnhldorwmn07/21/2025 8:15 PM ESTAppointment [facility] [address] [place] [phone] Diagnosticdocumented as of this encounter Visit Diagnoses Not on filedocumented in this encounter Additional Health Concerns InfectionOnset DateLast IndicatedResolved TimeCOVID-19 (Rule Out)01/25/2025 8:04 AM ESTdocumented as of this encounter Care Teams Team MemberRelationshipSpecialtyStart DateEnd Date Jenn Barry, [employer] OFFICER - VASCULAR PHYSICIAN [address] [place] [id number] PCP - GeneralNurse Practitioner09/01/24documented as of this encounter
--- OUTSIDE RECORDS SUMMARY | 2025-02-03 12:39 | XMS_ITS | Clinical Summary ---
Author Organization [facility] Address [address], [address] [place] [address] Care Team Providers Care Senior Media Director Name Role Phone Jenn Barry APRN, NP Primary Care Provide r Allergies No known active allergies Medications MedicationSigDispense QuantityRefillsLast FilledStart DateEnd DateStatus busPIRone (BUSPAR) 5 MG tablet Take 1 tablet by mouth 3 times daily as neededActive amLODIPine (NORVASC) 2.5 MG tablet Take 1 tablet by mouth dailyActive carvedilol (COREG) 3.125 MG tablet Take 1 tablet by mouth dailyActive sertraline (ZOLOFT) 25 MG tablet Take 1 tablet by mouth dailyActive aspirin 81 MG EC tablet Take 1 tablet by mouth dailyActive allopurinol (ZYLOPRIM) 100 MG tablet Take 1 tablet by mouth dailyActive tiZANidine (ZANAFLEX) 2 MG tablet Take 1 tablet by mouth every 6 hours as neededActive atorvastatin (LIPITOR) 20 MG tablet Take 1 tablet by mouth zqtxuhy48/12/2025Active OZEMPIC, 2 MG/DOSE, 8 MG/3ML SOPN sc injection Inject 2 mg into the skin every 7 days5Active losartan-hydroCHLOROthiazide (HYZAAR) 100-25 MG per tablet Take 1 tablet by mouth dailyActive azithromycin (ZITHROMAX) 250 MG tablet 500mg on day 1 followed by 250mg on days 2 - 5 6 tablet 5Active albuterol sulfate HFA (VENTOLIN HFA) 108 (90 Base) MCG/ACT inhaler Inhale 2 puffs into the lungs 4 times daily as needed for Wheezing 18 g 5Active benzonatate (TESSALON) 200 MG capsule Take 1 capsule by mouth 3 times daily as needed for Cough 30 capsule /5Active amoxicillin-clavulanate (AUGMENTIN) 875-125 MG per tablet Take 1 tablet by mouth 2 times daily for 7 days 14 tablet /5Active methylPREDNISolone (MEDROL, BELA,) 4 MG tablet Take by mouth. 1 kit 5Active Active Problems ProblemNoted DateDiagnosed DateRectal opigbocc49/07/2025Hyperlipidemia, qarycndvyon45/09/2025Pain of right heel09/29/2024ody mass index (BMI) 40.0- 44.9, adult06/29/20249811Cerxbydspxei31/08/2024ositive colorectal cancer screening using Cologuard test12/30/2023Entrapment of right ulnar nerve10/01/2023Nasal colonization with methicillin-resistant Staphylococcus ycfpcm5710/01/2023cute bilateral low back pain with right-sided wvdkokrh39/14/2024epression with hmnnpjg9406/05/20232510Tnmnnvptmnldh10/14/2024Type 2 diabetes qcymkice77/14/2024 Foyfhtscjqvo65/17/2020Essential viknpynbaidt35/17/2020History of chest pain 03/09/2020Morbid wdpyffl8203/09/2020Hearing loss02/24/20201588Yaxazfpxlimn29/15/2020 Precordial pain08/06/2019Shortness of xwafnh1508/06/2019Sleep apnea08/06/2019 Encounters DateTypeDepartmentCare RxahQupwyoajwla59/09/2025 2:55 PM EST - 01/30/2025 5:36 PM [facility] Emergency Department [address] [place], [place] [id number] Acute maxillary sinusitis, recurrence not specified (Primary Dx); Acute cough; Wheezing Discharge Disposition: Home or Self Care01/30/20255468Cjtkfc06/04/2025 7:43 AM EST - 01/25/2025 8:35 AM [facility] Emergency Department [address] [place] [address] Renee Aceves MD Bronchitis (Primary Dx); Acute cough Discharge Disposition: Home or Self Care01/25/20255689Jmhmaq72/30/2025 1:48 PM EDT - 01/20/2025 11:59 PM EDTHospital Encounter [address] [address] Discharge Disposition: Home or Self Care11/15/2024 8:42 AM EDT - 11/15/2024 11:59 PM EDTHospital Encounter [address] [address] Discharge Disposition: Home or Self Carefrom Last 3 Months Social History Tobacco UseTypesPacks/DayYears UsedDateSmoking Tobacco: NeverPassive Smoke Exposure: NeverSmokeless Tobacco: Never Tobacco Cessation:Counseling Given: Not Answered Alcohol UseStandard Drinks/WeekCommentsNever0 (1 standard drink = 0.6 oz pure alcohol)AUDIT-CAnswerDate RecordedQ1: How often do you have a drink containing alcohol?Never01/30/2025Q2: How many drinks containing alcohol do you have on a typical day when you are drinking?Patient does not drink01/30/2025Q3: How often do you have six or more drinks on one occasion?Never01/30/2025Interpersonal Safety Domain Source: IP Abuse ScreeningAnswerDate RecordedPhysical abuseDenies 10/28/2024Verbal typxiLsbrom33/07/2025Emotional mandeGonzsz96/07/2025Financial oqqrmDdvwfj01/07/2025Sexual tuaquApudwz31/07/2025Sex and Gender InformationValue Date RecordedSex Assigned at MhwcrSnlp00/12/2025 9:31 PM EDTLegal SexMale 05/03/2012 6:41 PM ESTGender IdentityNot on fileSexual OrientationNot on file Last Filed Vital Signs Vital SignReadingTime TakenCommentsBlood Osqkjems877/9501/30/2025 5:30 PM EST Vxbtr968901/30/2025 5:30 PM UONAgogvqhyoti19.7 ??C (98.1 ??F)01/30/2025 2:51 PM ESTRespiratory Gdjr717204/01/2024 5:30 PM ESTOxygen Rbusbtythj35%01/30/2025 5:30 PM ESTInhaled Oxygen Concentration--Ahokez081.8 kg (306 lb)01/30/2025 2:51 PM BDBUmczar539.4 cm (6' 1 )01/30/2025 2:51 PM ESTBody Mass Index40.37104/01/2024 2:51 PM EST Plan of Treatment DateTypeDepartmentCare Team (Latest Contact Info)Lprfauirpfa92/21/2025 8:15 PM ESTAppointment [facility] [address] [place], [place] [id number] DiagnosticHealth MaintenanceDue DateLast BoioTvkjflrmM7Z test (Diabetic or Prediabetic)1983Diabetic foot exam1983Depression Monitoring 1985HIV bdyrrz1802/18/1988Diabetic retinal exam1991Hepatitis C screen 1991DTaP/Tdap/Td vaccine (1 - Tdap)02/18/1992Hepatitis B vaccine (1 of 3 - 19+ 3-dose series)02/18/1992Pneumococcal 50+ years Vaccine (1 of 2 - PCV) 02/18/1992FIT/FOBT: Average risk2018Sigmoidoscopy/CT colonography 2018Shingles vaccine (1 of 2)2023Flu vaccine (#1)10/22/2024 01/16/2021, 02/06/2020, 02/21/2019, Additional history existsCOVID-19 Vaccine ( season)511/, 07/08/2020, 1Diabetic Alb to Cr ratio (uACR) test/01/20251437Mnpajs15/25/202608/, 09/01/2024GFR test (Diabetes, CKD 3-4, OR last GFR 15-59)/11/2024, 01/20/2025, 09/01/2024Fecal-DNA (Cologuard): Average risk/olonoscopy /olorectal Cancer Vjqszb2710/28/2034Hepatitis A vaccineAged OutNo longer eligible based on patient's age to complete this topicHib vaccine Aged OutNo longer eligible based on patient's age to complete this topic Meningococcal (ACWY) vaccineAged OutNo longer eligible based on patient's age to complete this topicMeningococcal B vaccineAged OutNo longer eligible based on patient's age to complete this topicPolio vaccineAged OutNo longer eligible based on patient's age to complete this topic Procedures Procedure NamePriorityDate/TimeAssociated DiagnosisCommentsBASIC METABOLIC PANEL STAT104/01/2024 3:45 PM EST CBC WITH AUTO HVGLESMMPWWPPIGZ41/09/2025 3:45 PM EST XR CHEST HYWREDLFEYEL13/09/2025 3:07 PM EST COVID-19, SPEPYVHYA92/04/2025 7:11 AM EST RAPID INFLUENZA A/B ROBARWPUABZH74/04/2025 7:11 AM EST VITAMIN D 25 DABXSBEOxkadtc95/30/2025 1:51 PM EDT ZMZGdslacx03/30/2025 1:51 PM EDT T4, FEOXDcorbbw43/30/2025 1:51 PM EDT T3, NVXMGcqiulw75/30/2025 1:51 PM EDT COMPREHENSIVE METABOLIC GIJDFDsgvkxd65/30/2025 1:51 PM EDT CBC WITH AUTO TUXIOYDIWTOVOqvxihz10/30/2025 1:51 PM EDT VITAMIN G47Iictwpb06/30/2025 1:51 PM EDT LIPID QZQHNDegcyvg28/25/2025 8:46 AM EDT YFXPkfcnry24/ 8:46 AM EDT DGEYscsyzj17/25/2025 8:46 AM EDT ALBUMIN/CREATININE RATIO, DJDNSCbyzcoi99/11/2025 8:41 AM EDT from Last 3 Months or Most Recently Relevant to Health Maintenance Results * (ABNORMAL) CBC with Auto Differential (01/30/2025 3:45 PM EST) Only the most recent of2 resultswithin the time period is included. ComponentValueRef RangeTest MethodAnalysis TimePerformed AtPathologist Signature WBC9.03.5 - 11.3 k/uL01/30/2025 3:45 PM [facility] LABRBC 4.684.21 - 5.77 m/uL01/30/2025 3:45 PM [facility] Rimcvyavfx51.813.0 - 17.0 g/dL01/30/2025 3:45 PM [facility] ICSIguvqalxgt53.5(L)40.7 - 50.3 %01/30/2025 3:45 PM [facility] OQXLDB07.582.6 - 102.9 fL01/30/2025 3:45 PM [facility] JHEHDF04.525.2 - 33.5 pg01/30/2025 3:45 PM [facility] UYWMCCZ13.128.4 - 34.8 g/dL01/30/2025 3:45 PM [facility] QZDKCA07.711.8 - 14.4 %01/30/2025 3:45 PM [facility] JPCNmbldzfvt832916 - 453 k/uL01/30/2025 3:45 PM [facility] LABMPV9.38.1 - 13.5 fL01/30/2025 3:45 PM [facility] LABNRBC Automated0.00.0 per 100 WBC01/30/2025 3:45 PM [facility] LABNeutrophils %6536 - 65 %01/30/2025 3:45 PM [facility] LABLymphocytes %2724 - 43 %01/30/2025 3:45 PM [facility] LABMonocytes %63 - 12 %01/30/2025 3:45 PM [facility] LABEosinophils %21 - 4 %01/30/2025 3:45 PM [facility] LABBasophils %00 - 2 %01/30/2025 3:45 PM [facility] LABImmature Granulocytes %00 %01/30/2025 3:45 PM [facility] LABNeutrophils Absolute5.841.50 - 8.10 k/uL01/30/2025 3:45 PM [facility] LABLymphocytes Absolute2.401.10 - 3.70 k/uL01/30/2025 3:45 PM [facility] LABMonocytes Absolute0.490.10 - 1.20 k/uL01/30/2025 3:45 PM [facility] LABEosinophils Absolute 0.190.00 - 0.44 k/uL01/30/2025 3:45 PM [facility] Basophils Absolute0.030.00 - 0.20 k/uL01/30/2025 3:45 PM [facility] LABImmature Granulocytes Absolute0.030.00 - 0.30 k/uL01/30/2025 3:45 PM [facility] LABSpecimen (Source)Anatomical Location / LateralityCollection Method / VolumeCollection TimeReceived TimeBloodBLOOD SPECIMEN / Suklfmv5601/30/2025 3:45 PM EST01/30/2025 3:48 PM EST Narrative Authorizing ProviderResult TypeResult StatusGemarie LING-CHEMATOLOGY ORDERABLESFinal ResultPerforming OrganizationAddressCity/State/ZIP CodePhone Number [facility] [address] [place] [address], [facility] [place] [phone] * (ABNORMAL) BMP (01/30/2025 3:45 PM EST)ComponentValueRef RangeTest Method Analysis TimePerformed AtPathologist VcxpdkjlwWxmaxu150643 - 145 mmol/L 01/30/2025 3:45 PM [facility] LABPotassium3.73.7 - 5.3 mmol/L104/01/2024 3:45 PM [facility] ATLEswzeill89987 - 107 mmol/L104/01/2024 3:45 PM [facility] WSZGV13244 - 31 mmol/L104/01/2024 3:45 PM [facility] LABAnion Gap99 - 16 mmol/L104/01/2024 3:45 PM [facility] NKKIwniwnq003(H)74 - 99 mg/dL01/30/2025 3:45 PM [facility] QWRWUG646 - 20 mg/dL01/30/2025 3:45 PM [facility] LABCreatinine0.70.70 - 1.20 mg/dL01/30/2025 3:45 PM [facility] LABEst, Glom Filt Rate>90>60 mL/min/1.05e53601/30/2025 3:45 PM [facility] Comment: ? These results are not intended for [...] therapy that affects renal tubular secretion. BUN/Creatinine Somag393 - 3:45 PM [facility] LABCalcium9.18.6 - 10.4 mg/dL01/30/2025 3:45 PM [facility] LABSpecimen (Source)Anatomical Location / LateralityCollection Method / Volume Collection TimeReceived TimeBloodBLOOD SPECIMEN / Otnnszs8301/30/2025 3:45 PM EST 01/30/2025 3:48 PM EST Narrative Authorizing ProviderResult TypeResult StatusGemarie LING-CCHEMISTRY ORDERABLESFinal ResultPerforming OrganizationAddressCity/State/ZIP CodePhone Number [facility] [address] [place] [address], [facility] [place] [phone] * XR CHEST PORTABLE (01/30/2025 3:07 PM [...] No acute cardiopulmonary process. Authorizing ProviderResult TypeResult StatusRichtonie Marquez MDIMHallie DIAGNOSTIC IMAGING ORDERABLESFinal Result * COVID-19, Rapid (01/25/2025 7:11 AM EST)ComponentValueRef RangeTest Method Analysis TimePerformed AtPathologist SignatureSpecimen Description .NASOPHARYNGEAL SWAB01/25/2025 7:11 AM [facility] SARS-CoV-2, RapidNot DetectedNot Jouousxd58/04/2025 7:11 AM [facility] LABComment: ? Rapid NAAT: ??The specimen is [...] / Volume Collection TimeReceived TimeNASOPHARYNGEAL SWAB / Tlumokp7001/25/2025 7:11 AM EST 01/25/2025 7:46 AM EST Narrative Authorizing ProviderResult TypeResult Status[facility] ORDERABLESFinal ResultPerforming OrganizationAddressty/State/ZIP Code Phone Number [facility] [address] [place] [address] * Rapid influenza A/B antigens (01/25/2025 7:11 AM EST)ComponentValueRef Range Test MethodAnalysis TimePerformed AtPathologist SignatureFlu A AntigenNEGATIVE VVYMWBMD77/04/2025 7:11 AM [facility] LABComment:for Influenza A AntigenFlu B WdqxdjzZNECEJZVSZYMXHSA55/04/2025 7:11 AM [facility] LABComment:for Influenza B Antigen.Specimen (Source) Anatomical Location / LateralityCollection Method / VolumeCollection Time Received TimeNASOPHARYNGEAL SWAB / Qzrfahr3001/25/2025 7:11 AM EST01/25/2025 7:45 AM EST Narrative Authorizing ProviderResult TypeResult Status[facility] GENERAL ORDERABLESFinal ResultPerforming OrganizationAddressUniversity [facility]/ZIP Code Phone Number [facility] [address] [place] [address] * (ABNORMAL) Vitamin D 25 Hydroxy (01/20/2025 1:51 PM EDT)ComponentValueRef RangeTest MethodAnalysis TimePerformed AtPathologist SignatureVit D, 25-Obzxvny78.6(L)30.0 - 100.0 ng/mL01/20/2025 1:51 PM EDTMERCY LABORATORIES Comment: Reference Range: Vitamin D status ? Range Deficiency <20 ng/mL Mild Deficiency ? 20-30 ng/mL Sufficiency ?30-100 ng/mL Toxicity >100 ng/mL Specimen (Source)Anatomical Location / LateralityCollection Method / Volume Collection TimeReceived Time01/20/2025 1:51 PM EDT1 1:52 PM EDT Narrative Authorizing ProviderResult TypeResult StatusLisa Satish Barry [employer] - NPCHEMISTRY ORDERABLESFinal ResultPerforming OrganizationAddressty/State/ZIP CodePhone Number [facility] [address] [place] [address] [employer] [address] [place] [address] * T3, Free (01/20/2025 1:51 PM EDT)ComponentValueRef RangeTest MethodAnalysis TimePerformed AtPathologist SignatureT3, Free3.082.00 - 4.40 pg/mL01/20/2025 1:51 PM EDTMERCY LABORATORIESSpecimen (Source)Anatomical Location / Laterality Collection Method / VolumeCollection TimeReceived Time01/20/2025 1:51 PM EDT 01/20/2025 1:52 PM EDT Narrative Authorizing ProviderResult TypeResult StatusLisa Satish Barry [employer] - NPCHEMISTRY ORDERABLESFinal ResultPerforming OrganizationAddressty/State/ZIP CodePhone Number [facility] [address] [place] [address] [employer] [address] [place] [address] * TSH (01/20/2025 1:51 PM EDT)ComponentValueRef RangeTest MethodAnalysis Time Performed AtPathologist SignatureTSH1.010.27 - 4.20 uIU/mL01/20/2025 1:51 PM [facility] LABSpecimen (Source)Anatomical Location / LateralityCollection Method / VolumeCollection TimeReceived Time01/20/2025 1:51 PM EDT1 1:52 PM EDT Narrative Authorizing ProviderResult TypeResult StatusLisa Covarrubias Asha [employer] - NPCHEMISTRY ORDERABLESFinal ResultPerforming OrganizationAddressCity/State/ZIP CodePhone Number [facility] [address] [place] [address], [facility] [place] [phone] * T4, Free (01/20/2025 1:51 PM EDT)ComponentValueRef RangeTest MethodAnalysis TimePerformed AtPathologist SignatureT4 Free1.20.92 - 1.68 ng/dL01/20/2025 1:51 PM EDTMERCY LABORATORIESSpecimen (Source)Anatomical Location / Laterality Collection Method / VolumeCollection TimeReceived Time01/20/2025 1:51 PM EDT 01/20/2025 1:52 PM EDT Narrative Authorizing ProviderResult TypeResult StatusLisa Covarrubias Asha [employer] - NPCHEMISTRY ORDERABLESFinal ResultPerforming OrganizationAddressCity/State/ZIP CodePhone Number [facility] [address] [place] [address], [facility] [place] [phone] [place] [address], [facility] [place] [phone] * Vitamin B12 (01/20/2025 1:51 PM EDT)ComponentValueRef RangeTest MethodAnalysis TimePerformed AtPathologist SignatureVitamin B-22560632 - 1245 pg/mL01/20/2025 1:51 PM EDTMERCY LABORATORIESSpecimen (Source)Anatomical Location / Laterality Collection Method / VolumeCollection TimeReceived Time01/20/2025 1:51 PM EDT 01/20/2025 1:52 PM EDT Narrative Authorizing ProviderResult TypeResult StatusLisa Covarrubias Asha [employer] - NPCHEMISTRY ORDERABLESFinal ResultPerforming OrganizationAddressCity/State/ZIP CodePhone Number [facility] [address] [place], [place] [address], [facility] [place] [phone] [employer] [address] [place], [place] [address], [facility] [place] [phone] * (ABNORMAL) Comprehensive Metabolic Panel (01/20/2025 1:51 PM EDT)Component ValueRef RangeTest MethodAnalysis TimePerformed AtPathologist SignatureSodium 825203 - 145 mmol/L1 1:51 PM [facility] Potassium3.5(L)3.7 - 5.3 mmol/L1 1:51 PM [facility] SHHWnwkibzr73191 - 107 mmol/L1 1:51 PM [facility] FRFEL24622 - 31 mmol/L1 1:51 PM [facility] LABAnion Jfm393 - 16 mmol/L1 1:51 PM [facility] ZAGPoduujt109(H)74 - 99 mg/dL01/20/2025 1:51 PM [facility] AGFDBK351 - 20 mg/dL01/20/2025 1:51 PM [facility] LABCreatinine0.80.70 - 1.20 mg/dL01/20/2025 1:51 PM [facility] LABEst, Glom Filt Rate>90>60 mL/min/1.13l49501/20/2025 1:51 PM [facility] LABComment: ? These results are not [...] therapy that affects renal tubular secretion. BUN/Creatinine Jlfff957 - 1:51 PM [facility] LABCalcium8.88.6 - 10.4 mg/dL01/20/2025 1:51 PM [facility] LABTotal Protein6.76.6 - 8.7 g/dL01/20/2025 1:51 PM [facility] LABAlbumin4.03.5 - 5.2 g/dL01/20/2025 1:51 PM [facility] LABAlbumin/Globulin Ratio1.51.0 - 2.510 1:51 PM [facility] LABTotal Bilirubin0.50.00 - 1.20 mg/dL01/20/2025 1:51 PM EDT [facility] LABAlkaline Dpocrjbpbjo89110 - 129 U/L1 1:51 PM [facility] JNZUML1195 - 50 U/L1 1:51 PM [facility] WSFWUT0196 - 50 U/L1 1:51 PM [facility] LABSpecimen (Source)Anatomical Location / Laterality Collection Method / VolumeCollection TimeReceived Time01/20/2025 1:51 PM EDT 01/20/2025 1:52 PM EDT Narrative Authorizing ProviderResult TypeResult StatusLisa Satish Barry [employer] - NPCHEMISTRY ORDERABLESFinal ResultPerforming OrganizationAddressCity/State/ZIP CodePhone Number [facility] [address] [place] [address] * ALT (11/15/2024 8:46 AM EDT)ComponentValueRef RangeTest MethodAnalysis Time Performed AtPathologist QuorwclqxDFR8530 - 50 U/L11/15/2024 8:46 AM [facility] LABSpecimen (Source)Anatomical Location / Laterality Collection Method / VolumeCollection TimeReceived Time11/15/2024 8:46 AM EDT 11/15/2024 8:47 AM EDT Narrative Authorizing ProviderResult TypeResult StatusLisa Satish Barry [employer] CHECKER - NPCHEMISTRY ORDERABLESFinal ResultPerforming OrganizationAddressCity/State/ZIP CodePhone Number [facility] [address] [place] [address] * AST (11/15/2024 8:46 AM EDT)ComponentValueRef RangeTest MethodAnalysis Time Performed AtPathologist BksczvektHHS0765 - 50 U/L11/15/2024 8:46 AM [facility] LABSpecimen (Source)Anatomical Location / Laterality Collection Method / VolumeCollection TimeReceived Time11/15/2024 8:46 AM EDT 11/15/2024 8:47 AM EDT Narrative Authorizing ProviderResult TypeResult StatusJenn Barry [employer] CHECKER - NPCHEMISTRY ORDERABLESFinal ResultPerforming OrganizationAddressCity/State/ZIP CodePhone Number [facility] [address] [id number] [phone] * (ABNORMAL) Lipid Panel (11/15/2024 8:46 AM EDT)ComponentValueRef RangeTest MethodAnalysis TimePerformed AtPathologist SignatureCholesterol, Payro7310 - 199 mg/dL11/15/2024 8:46 AM EDTMERCY LABORATORIESComment: Cholesterol Guidelines: <200 Desirable 200-240 ??Borderline >240 Undesirable HDL28(L)>40 mg/dL11/15/2024 8:46 AM EDTMERCY LABORATORIESComment: HDL Guidelines: <40 Undesirable 40-59 ?Borderline >59 Desirable LDL Ktotprwkmpf059 - 100 mg/dL11/15/2024 8:46 AM EDTMERCY LABORATORIESComment: LDL Guidelines: <100 Desirable 100-129 ?? Near to/above Desirable 130-159 ?? Borderline >159 Undesirable Direct (measured) LDL and calculated LDL are not interchangeable tests. Chol/HDL Ratio3.7<5.008 8:46 AM EDTMERCY UGTHLIIKSURFJgwcppqlbcztk86<150 mg/dL11/15/2024 8:46 AM EDTMERCY LABORATORIESComment: Triglyceride Guidelines: <150 Desirable 150-199 ??Borderline 200-499 ??High >499 Very high Based on AHA Guidelines for fasting triglyceride, December 2011. MYXN704 - 30 mg/dL11/15/2024 8:46 AM EDTMERCY LABORATORIESSpecimen (Source) Anatomical Location / LateralityCollection Method / VolumeCollection Time Received Time11/15/2024 8:46 AM EDT11/15/2024 8:47 AM EDT Narrative Authorizing ProviderResult TypeResult David Covarrubias Kristophersukhjinderewa [employer] - NPCHEMISTRY ORDERABLESFinal ResultPerforming OrganizationAddressCity/State/ZIP CodePhone Number [facility] [address] [place] [address], [facility] [place] [phone] [employer] [address] [place] [address], [facility] [place] [phone] * Albumin/Creatinine Ratio, Urine (09/01/2024 8:41 AM EDT)ComponentValueRef RangeTest MethodAnalysis TimePerformed AtPathologist SignatureAlbumin Urine<12 0 - 20 mg/L09/01/2024 8:41 AM EDTMERCY LABORATORIESCreatinine, Ur210.039.0 - 259.0 mg/dL09/01/2024 8:41 AM EDTMERCY LABORATORIESComment:Reference range defined for 1st morning urineMicroalb/Roofer Assistant. RatioCan not be calculated0.0 - 17.0 mcg/mg creat09/01/2024 8:41 AM EDTMERCY LABORATORIESSpecimen (Source) Anatomical Location / LateralityCollection Method / VolumeCollection Time Received Time09/01/2024 8:41 AM EDT09/01/2024 8:42 AM EDT Narrative Authorizing ProviderResult TypeResult David Covarrubias Kristophersukhjinderewa [employer]ER - NPURINE ORDERABLESFinal ResultPerforming OrganizationAddressCity/State/ZIP CodePhone Number [facility] [address] [place] [address] [employer] [address] [place] [address] from Last 3 Months or Most Recently Relevant to Health Maintenance Insurance Advance Directives * Full Code (Latest Code Status on File) Date ActivatedDate InactivatedComments10/06/2023 10:13 AM10/06/2023 4:33 PM Care Teams Team MemberRelationshipSpecialtyStart DateEnd Date Jenn Barry, [employer] - [employer] EQUIPMENT TENDER [address] [place] [phone] PCP - GeneralNnivia Practitioner09/01/24
--- OUTSIDE RECORDS SUMMARY | 2025-02-03 12:39 | XMS_ITS | Encounter Summary ---
Author Organization [facility] Address [address] [place] [address], [address] [place] [address] Care Team Providers Care Supervisor Assembly Department Name Role Phone Jenn Barry APRN - ANDREW Primary Care Provide r Encounter Details DateTypeDepartmentCare Team (Latest Contact Info)Lwxvfuuqjkm13/09/2025Travel Social History Tobacco UseTypesPacks/DayYears UsedDateSmoking Tobacco: NeverPassive [...] Domain Source: IP Abuse Screening AnswerDate RecordedPhysical yeshcLpkcax19/07/2025Verbal cngsfDlmkzu05/07/2025 Emotional ktnvtWmxolx18/07/2025Financial lpovnDlkpen41/07/2025Sexual abuseDenies 10/28/2024Sex and Gender InformationValueDate RecordedSex Assigned at BirthMale 10/02/2024 9:31 PM EDTLegal XmxHzdx4105/03/2012 6:41 PM ESTGender IdentityNot on fileSexual OrientationNot on filedocumented as of this encounter Functional Status documented as of this encounter Plan of Treatment DateTypeDepartmentCare Team (Latest Contact Info)Mwscmryzmuh59/21/2025 8:15 PM ESTAppointment [facility] [address] [place] [id number] Diagnosticdocumented as of this encounter Visit Diagnoses Not on filedocumented in this encounter Care Teams Team MemberRelationshipSpecialtyStart DateEnd Date Jenn Barry, VICE PRESIDENT OF BRAND MANAGEMENT - TIP FINISHER [address] [place] [id number] PCP - GeneralNurse Practitioner09/01/24documented as of this encounter
--- OUTSIDE RECORDS SUMMARY | 2025-02-03 12:39 | XMS_ITS | Clinical Summary ---
Author Organization [employer] [facility] Address [id number] [address] 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 Taking 1 1/2 tablets daily (150 mg) Active allopurinoL (ZYLOPRIM) 300 mg tablet Take 300 mg by mouth daily.07/31/2019Active hydroCHLOROthiazide (HYDRODIURIL) 25 mg tablet Take 25 mg by mouth daily.07/31/2019Active spironolactone (ALDACTONE) 25 mg tablet Take 25 mg by mouth daily. 07/31/2019Active amLODIPine (NORVASC) 10 mg tablet Take 10 mg by mouth daily.07/31/2019Active JARDIANCE 10 mg tablet tablet Take 10 mg by mouth daily.07/31/2019Active pioglitazone (ACTOS) 30 mg tablet Take 30 mg by mouth daily.07/31/2019Active atenoloL (TENORMIN) 100 mg tablet Take 100 mg by mouth daily.07/31/2019Active aspirin 81 mg Take 81 mg by mouth daily.07/31/2019Active lisinopriL (PRINIVIL,ZESTRIL) 40 mg tablet Take 40 mg by mouth daily.07/31/2019Active pravastatin (PRAVACHOL) 40 mg tablet Take 40 mg by mouth daily.07/31/2019Active busPIRone (BUSPAR) 10 mg tablet Take 10 mg by mouth as needed. 06/04/2019Active hydrOXYzine (VISTARIL) 50 mg capsule Take 50 mg by mouth as needed.06/04/2019Active tiZANidine (ZANAFLEX) 4 mg tablet Take 4 mg by mouth nightly.Active clotrimazole-betamethasone (LOTRISONE) cream Indications:Other infective chronic otitis externa of both earsApply 1 application topically 2 (two) times a day. 30 g 1Active Additional Information Patient not taking.Reported on 05/19/2022 Active Problems ProblemNoted DateDiagnosed DateHistory of chest pain03/09/2020Essential fdskvxfjryle08/17/9043Tcyhksqmvqkk93/17/2020Morbid zfckvtx8903/09/2020Hearing loss 02/24/2020Precordial pain08/06/2019Shortness of dcgxpj9608/06/2019Cardiomegaly 08/06/2019Sleep apnea08/06/2019 Family History RelationNameStatusCommentsFatherAliveMotherAlive Social History Tobacco UseTypesPacks/DayYears UsedDateSmoking Tobacco: NeverSmokeless Tobacco: Never Tobacco Cessation:Counseling Given: Not Answered Alcohol UseStandard Drinks/WeekCommentsNever0 (1 standard drink = 0.6 oz pure alcohol)AUDIT-CAnswerDate RecordedQ1: How often do you have a drink containing alcohol?Never08/06/2019Average Number of DrinksNot on file08/06/2019Frequency of Binge DrinkingNot on file08/06/2019PHQ-2AnswerDate RecordedTotal Score0 1ChildcareAnswerDate FbtdursvBfeyrmyfsKfnzcjd82/12/2019EmploymentAnswer Date MhbpuyjvPuhorvzhmcWnjpwah91/12/2019Hunger ScreeningAnswerDate Recorded Within the past 12 months we worried whether our food would run out before we got money to buy more.Never True05/19/2022Within the past 12 months the food we bought just didn't last and we didn't have money to get more.Never True 3Purpose - LifeAnswerDate RecordedPurpose and direction in lifeUnknown 04/19/2020ex and Gender InformationValueDate RecordedSex Assigned at BirthNot on fileLegal IuvFtli4010/27/2014 12:02 PM EDTGender IdentityNot on fileSexual OrientationNot on file Last Filed Vital Signs Vital SignReadingTime TakenCommentsBlood Xemsyiec950/7905/19/2022 4:07 PM EST Kvszw0888/26/2023 4:07 PM OKFUftmkkoougu26.6 ??C (97.9 ??F)02/21/2020 11:05 PM ESTRespiratory Nypg125105/19/2022 4:07 PM ESTOxygen Tpadtlurnu70%05/19/2022 4:07 PM ESTInhaled Oxygen Concentration--Hqhlrv278.8 kg (350 lb)05/19/2022 2:33 PM OUDMzekko088.4 cm (6' 1 )05/19/2022 2:33 PM ESTBody Mass Index46.18005/19/2022 2:33 PM EST Plan of Treatment Health MaintenanceDue DateLast DoneCommentsDepression Mcvlkrkkm87/27/1985Tobacco Hbbgznqld00/27/1985DTaP,Tdap and Td Vaccines (1 - Tdap)02/18/1992Zoster (Shingles) Vaccine (1 of 2)2023dult BMI Knpjwiivw83 COVID-19 Vaccine ( - season)/, 07/08/2020, 06/05/2020Influenza Gmkxqqq60, 02/06/2020, 02/21/2019, Additional history exists Medical Devices Not on file Insurance * Guarantor: Hair Santos GMAccount TypeRelation to PatientDate of BirthPhone Billing AddressPersonal/DysnecQgwx1975 [facility] CAMILO CARL [address] [address] Care Teams Team MemberRelationshipSpecialtyStart DateEnd Date Shaikh Cordoba MD [facility]/24[facility]21
--- OUTSIDE RECORDS SUMMARY | 2025-02-03 12:39 | XMS_ITS | Clinical Summary ---
Author Organization [facility] Healthcare Address [address] [place] [address] Care Team Providers Care Blow Pit Helper Name Role Phone Margarette White WEAVING PROFESSOR Unavailable [phone] Richard Harris MD Primary Care Provider [phone] Allergies No known active allergies Medications MedicationSigDispense QuantityRefillsLast FilledStart DateEnd DateStatus HYDROcodone-acetaminophen ([place]) 5-325 MG tablet Take 1 tablet by mouth every 6 (six) hours if [id number] sertraline (Zoloft) 50 MG tablet Indications:JAN (generalized anxiety disorder)Take 1 tablet (50 mg) by mouth Daily 90 tablet 5Active busPIRone (Buspar) 15 MG tablet Indications:JAN (generalized anxiety disorder)Take 1 tablet (15 mg) by mouth every 8 (eight) hours if needed (anxiety) 270 tablet 5Active Semaglutide, 2 MG/DOSE, (Ozempic, 2 MG/DOSE,) 8 MG/3ML solution pen-injector Indications:Type 2 diabetes mellitus without complication, without long-term current use of insulin (HCC)Inject 2 mg under the skin every 7 (seven) days 9 mL 5Active atorvastatin (Lipitor) 20 MG tablet Indications:DyslipidemiaTake 1 tablet (20 mg) by mouth at bedtime 30 tablet 5Active Blood Glucose Monitoring Suppl (6fusionToVERTILAS Verio Flex System) w/Device kit USE GFBGFNRR12/08/2025Active OneTouch Verio test strip USE 1 STRIP TO CHECK GLUCOSE ONCE DAILY5Active tiZANidine (Zanaflex) 4 MG tablet Indications:Acute bilateral low back pain with right-sided sciaticaTake 1 tablet (4 mg) by mouth every 8 (eight) hours if needed for muscle spasms 270 tablet 5Active amLODIPine (Norvasc) 10 MG tablet Indications:Essential hypertensionTake 1 tablet (10 mg) by mouth Daily 90 tablet tive carvedilol (Coreg) 25 MG tablet Indications:Essential hypertensionTake 1 tablet (25 mg) by mouth in the morning and 1 tablet (25 mg) in the evening. Take with meals. 180 tablet tive losartan-hydroCHLOROthiazide (Hyzaar) 100-25 MG tablet Indications:Essential hypertensionTake 1 tablet by mouth Daily 90 tablet tive spironolactone (Aldactone) 25 MG tablet Indications:Essential hypertensionTake 1 tablet (25 mg) by mouth Daily 90 tablet 5Active Active Problems ProblemNoted DateDiagnosed DateType 2 diabetes mellitus with other specified gstcyfyighie15/09/2025 Assessment & Plan (09/29/2024 6:12 AM EDT): HTN, HLD, obesity Hyperlipidemia, qjqystlywux36/09/2025 Assessment & Plan (09/29/2024 6:09 AM EDT): On statin Check labs yearly and prn dose changes Recent change in dose on atorvastatin d/t not at goal Pain of right heel09/29/2024ody mass index (BMI) 40.0-44.9, adult06/29/2024 Morbid (severe) obesity due to excess jyxsfmit83/08/2025 Assessment & Plan (09/29/2024 6:06 AM EDT): Discussed with patient their BMI (actual, verses recommended). We have also discussed lifestyle modifications: attempts to perform physical activity as chronic conditions allow, also to monitor dietary intake: increasing protein/fruits/veggies and lowering carb intake (unless contraindicated). Limit sodas, juices, and sugary drinks. Is on GLP-1 for diabetes Assessment & Plan (06/29/2024 6:19 AM EDT): Discussed with patient their BMI (actual, verses recommended). We have also discussed lifestyle modifications: attempts to perform physical activity as chronic conditions allow, also to monitor dietary intake: increasing protein/fruits/veggies and lowering carb intake (unless contraindicated). Limit sodas, juices, and sugary drinks. Is on GLP-1 for diabetes Screening for prostate xxyrbn6406/29/2024 Overview (09/02/2024): 08/31/24 0.50 Positive colorectal cancer screening using Cologuard test12/30/2023 Assessment & Plan (09/29/2024 6:12 AM EDT): 06/18/23 + cologuard test Vaoeaowsyclb75/08/2024 Assessment & Plan (12/30/2023 12:01 PM EDT): Pt reports constipation, states he also has [...] if symptoms worsen or do not improve. Entrapment of right ulnar nerve10/01/2023 Assessment & Plan (10/01/2023 9:51 AM EDT): Scheduled for ulnar nerve release on Friday. Pre-operative sqscmcovc90/10/2024 Assessment & Plan (10/01/2023 10:26 AM EDT): Scheduled for ulnar nerve release next week. Chronic medical conditions are stable and well optimized. At low risk of MACE and medically cleared to proceed with surgery. 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 He is scheduled for ulnar neve release next week, this was ordered by orthopedic surgery. Type 2 diabetes mellitus without complication, without long-term current use of ejhgawh8606/05/2023 Assessment & Plan (09/29/2024 9:08 AM EDT): Check blood sugars daily, notify if <70 or >200. Take medications (pills or insulin) as directed. Monitor for s/s of hypoglycemia (sweaty, dizziness, nausea, vomiting, or shakiness). Watch for increase in thirst, urination, or appetite. Inspect feet frequently monitoring for open wounds , andalso recommend yearly eye exam. Pt should attempt to remain as physically active as chronic conditions allow, as well as trying to follow a diet low in carbohydrates, and simple sugars. Current meds: ozempic, glipizide, asa, statin, arb/hctz A1c: 5.9% 09/29/24, 5.9% 06/29/24 Assessment & Plan (06/29/2024 9:45 AM EDT): Check blood sugars daily, notify if <70 or >200. Take medications (pills or insulin) as directed. Monitor for s/s of hypoglycemia (sweaty, dizziness, nausea, vomiting, or shakiness). Watch for increase in thirst, urination, or appetite. Inspect feet frequently monitoring for open wounds , andalso recommend yearly eye exam. Pt should attempt to remain as physically active as chronic conditions allow, as well as trying to follow a diet low in carbohydrates, and simple sugars. Current meds: ozempic, glipizide, asa, statin, arb/hctz A1c: 5.9% 06/29/24 Assessment & Plan (12/30/2023 9:31 AM EDT): Currently taking Glipizide 5mg BID Ozempic 2mg [...] glucose monitoring noted. DM Eye Exam: 12/29/2023 Assessment & Plan (10/01/2023 10:22 AM EDT): Most recent labs: hemoglobin A1C 6.4 09/14 FSBS fluctuating but mostly at goal. He could not use glipizide 10 mg q12 as he experienced hypoglycemia on it and starting using glipizide 10 mg once daily. Patient educated on lifestyle modifications, dietary restrictions, signs and symptoms of hypoglycemia/hyperglycemia and importance of eating regular consistent meals. Increase Ozempic to 2 mg/week. Change glipizide to 5 mg q12. Check A1C before next appointment. Assessment & Plan (07/31/2023 2:18 PM EDT): Most recent labs: hemoglobin A1C 10.1 07/15 FSBS above goal - range from 200-300 No medication adverse effects reported by the patient. Patient educated on lifestyle modifications, dietary restrictions, signs and symptoms of hypoglycemia/hyperglycemia and importance of eating regular consistent meals. On ozempic 1 mg. Increase glipizide to 10 mg q12 Check A1C before next appt Assessment & Plan (07/14/2023 9:56 AM EDT): Most recent labs: hemoglobin A1C 10.1 Does not check his blood glucose. He is supposed to be on Trulicity 1.5 - he has been rationing it and using it every other week. No medication adverse effects reported by the patient. Patient educated on lifestyle modifications, dietary restrictions, signs and symptoms of hypoglycemia/hyperglycemia and importance of eating regular consistent meals. Stressed upon importance of checking blood glucose at home and bring blood glucose log to appointments. All questions, concerns answered and addressed. Encouraged to call office if persistent hypoglycemia/hyperglycemia on home glucose monitoring noted. C/w Trulicity - increase to 3 mg/week. Add Glipizide 5 mg q12. Ordered freestyle albert for the patient to help improve his compliance and so that he can monitor his blood glucose. Assessment & Plan (06/05/2023 2:22 PM EDT): Last A1C was 10/13 at goal C/w Trulicity FSBS at goal. Order labs. Depression with tiqcqra7906/05/2023 Assessment & Plan (09/29/2024 6:07 AM EDT): Current meds: buspar, sertraline Last appt increased buspar to 10mg TID Assessment & Plan (06/29/2024 10:09 AM EDT): Current meds: buspar, sertraline PHQ 9=7 JAN 7=8 Wants to stay at dose on sertraline, however increase buspirone 10 15mg TID prn Called in 30 day script to [facility] in [place] 06/29/24 10:07 am #30 day , 90 pills Assessment & Plan (06/05/2023 2:23 PM EDT): Uses Zoloft 50 mg, uses buspirone as needed only. Ymlpifkbgdubx00/14/2024 Assessment & Plan (06/29/2024 6:22 AM EDT): On allopurinol Check labs yearly, and prn dose change or change in symptoms Assessment & Plan (10/01/2023 10:23 AM EDT): On allopurinol. Assessment & Plan (06/05/2023 2:23 PM EDT): On allopurinol. Check uric acid. Screening for colon aewssv6606/05/2023 Assessment & Plan (06/05/2023 2:23 PM EDT): Order Cologuard Acute bilateral low back pain with right-sided bjnzdxep57/14/2024 Assessment & Plan (10/01/2023 10:25 AM EDT): Chronic low back pain. MRI - multilevel herniated disc. He was seen by NS - recommended conservative treatment. His pain has improved and more or less resolved with PT. Assessment & Plan (07/31/2023 2:21 PM EDT): Acute worsening of chronic low back pain. MRI - multilevel herniated disc. He was seen by NS - recommended conservative treatment for now with PT and epidural injections. His pain has improved and more or less resolved with PT. Patient is cleared to return to work on light duty with no heavy lifting and constant/frequent/prolonged standing and bending. Assessment & Plan (07/14/2023 10:03 AM EDT): Hx of chronic LBP intermittently with periods of worsening pain but for past 4 weeks now. Pain is worse when he is standing or ambulates. He reports pain radiates to his Right lateral thigh sha on ambulation and he feels like he is going to fall. MRI ordered last appointment - shows multilevel herniated disc. He was seen by NS - recommended conservative treatment for now with PT and epidural injections. His pain has improved and not persistent anymore. However, he reports acute worsening of pain afterPT and experiences poorly controlled pain on some days. Not using gabapentin daily and uses it as needed. He was taken off of work until 07/22/23 for poorly controlled back pain. He has PT scheduled 2-3/week that typically aggravates her his pain and he also anticipates to have epidural injection by Pain provider over the next couple of weeks. I will extend his FMLA/Disability until 08/07/23 and he can return to work on 08/08/23. Patient is unable to walk/sit/stand for long due to pain. He is also unable to lift/bend/pull/push regularly due to pain. If he returns to work prematurely, I expect him to require longer recovery period Assessment & Plan (06/29/2023 5:31 PM EDT): Hx of chronic LBP intermittently with periods of worsening pain but for past 2-3 week, it has been pretty persistent, worse when he is standing or ambulates. He reports pain radiates to his Right lateral thigh sha on ambulation and he feels like he is going to fall. MRI ordered last appointment - scheduled on 07/10/23 Ended up going to ED for acute worsening of his pain and inability to ambulate XR of spine reveals degenerative changes at multiple levels. Exam indicative of numbness in right lateral thigh. Also, weak hip flexion on exam. Increase gabapentin to 600 mg TID, will call in PO oxycodone for severe intractable pain if pain does not response to gabapentin or tylenol/nsaids. Increase tizanidine to TID dosing to help with pain. Patient educated on safe use of opioids, to avoid alcohol while using narcotics/gabapentin and not drive while using these medications. Patient unable to work due to severe/persistent pain, weakness due to low back pain. Will take him off of work from 06/28/23 to 07/22/23 as he is unable to stand/sit/beng of lift for long and thus unable to work. Assessment & Plan (06/09/2023 11:01 AM EDT): Hx of chronic LBP intermittently with periods of worsening pain but for past week, it has been pretty persistent, worse when he is standing or ambulates. He reports pain radiates to his Right lateralthigh sha on ambulation and he feels like he is going to fall. He is using Prednisone prescribed byurgent care No improvement with tylenol. XR of spine reveals degenerative changes at multiple levels. Exam indicative of numbness in right lateral thigh. Also, weak hip flexion on exam. MRI LS spine ordered as abnormal neurological exam along with abnormal XR. Assessment & Plan (06/05/2023 2:26 PM EDT): Hx of chronic LBP intermittently with periods of worsening pain but for past week, it has been pretty persistent, worse when he is standing or ambulates. He reports pain radiates to his Right lateralthigh sha on ambulation and he feels like he is going to fall. He is using Prednisone prescribed byurgent care No improvement with tylenol. Will order XR and PT along with Gabapentin TID. Patient counseled and educated on adverse effects, drug interactions and to reach out to office/pharmacy if questions or concerns related to new medications. Exam indicative of numbness in right lateral thigh. Also, weak hip flexion on exam. Annual physical exam06/05/2023 Assessment & Plan (06/05/2023 2:27 PM EDT): Patient here for Annual Wellness Exam. Reviewed medical, surgical and social hx. Reviewed medication list. Health related questions and concerns addressed and answered. Patient provided appropriate education on chronic medical conditions and prescription medications. Ordered cologuard. Active problems addressed today's visit - Back pain Chronic conditions are stable, labs ordered. Essential ugdskidrirnd68/17/2020 Assessment & Plan (09/29/2024 9:20 AM EDT): Please check blood pressure daily and record [...] denies any recent illness and is staying hydratedin the hot weather Also cut back spironolactone to 12.5mg daily Assessment & Plan (06/29/2024 6:18 AM EDT): Please check blood pressure daily and record DASH diet Limit caffeine Take medication as directed Contact office if chest pain, pressure, dizziness, shortness of breath, swelling legs Recommend slow position changes Current meds: amlodipine, carvedilol, arb/hydrochlorothiazide, Assessment & Plan (12/30/2023 9:30 AM EDT): Currently taking losartan-hydrochlorothiazide 100-25 Amlodipine 10mg Carvedilol 25mg Does not check BP at home; Denies orthostatic changes, dizziness, cough, shortness of breath, swelling in extremities. Continue current regimen. Given BP log, advised pt to record BP and bring log back with them to next visit. Assessment & Plan (10/01/2023 10:22 AM EDT): At goal. Patient has Resistant HTN. He is on amlodipine, losartan- hydrochlorothiazide, coreg and aldactone. Patient encouraged to continue with home BP monitoring and call office if he experiences orthostatic symptoms or persistently elevated BP. C/w same. Assessment & Plan (07/31/2023 2:19 PM EDT): At goal now after addition of aldactone Resistant HTN. He is on amlodipine, losartan-hydrochlorothiazide, coreg and also on aldactone now. Follow up BMP after starting aldactone - normal Patient encouraged to continue with home BP monitoring and call office if he experiences orthostatic symptoms or persistently elevated BP. C/w same. Follow up in 2 months Assessment & Plan (07/14/2023 9:57 AM EDT): Above goal, poorly controlled. Resistant HTN. He is on amlodipine, losartan-hydrochlorothiazide and coreg Add aldactone BMP in 2 weeks. Denies lightheadedness, dizziness, syncope, presyncope. Patient encouraged to continue with home BP monitoring and call office if he experiences orthostatic symptoms or persistently elevated BP. Assessment & Plan (06/05/2023 2:21 PM EDT): Above goal today. He reports his BP is above goal today likely because of pain On average less than 130/90. Tolerating Anti hypertensive w/o adverse effects. Denies lightheadedness, dizziness, syncope, presyncope. Patient encouraged to continue with home BP monitoring and call office if he experiences orthostatic symptoms or persistently elevated BP. C/w norvasc 10, losartan-hydrochlorothiazide, coreg Monitor BP at home. Sleep apnea08/06/2019 Assessment & Plan (09/29/2024 6:05 AM EDT): You have a diagnosis of obstructive sleep apnea. It is recommended that you wear your PAP device any time while in bed sleeping. Not using the PAP device can increase your risk of elevated/uncontrolled high blood pressure, atrial fibrillation, heart attack, stroke, or sudden . Compliance with PAP: could not tolerate this Assessment & Plan (06/29/2024 9:46 AM EDT): You have a diagnosis of obstructive sleep apnea. It is recommended that you wear your PAP device any time while in bed sleeping. Not using the PAP device can increase your risk of elevated/uncontrolled high blood pressure, atrial fibrillation, heart attack, stroke, or sudden . Compliance with PAP: could not tolerate this Resolved Problems ProblemNoted DateDiagnosed DateResolved DateGAD (generalized anxiety disorder) /11/2024 Assessment & Plan (09/29/2024 6:06 AM EDT): Current meds: buspar, sertraline Assessment & Plan (10/01/2023 10:26 AM EDT): On buspirone. C/w same Auawahwqdayi96/17/202007/11/2024 Assessment & Plan (06/29/2024 6:22 AM EDT): On statin therapy Check labs yearly and as needed Assessment & Plan (12/30/2023 9:30 AM EDT): Currently taking Pravastatin 40mg Denies any myalgias. Most recent Lipid Panel done 5 months ago- WNL Continue current regimen. Assessment & Plan (10/01/2023 10:24 AM EDT): C/w pravastatin. Lipid panel more or less at goal 09/14 Assessment & Plan (06/05/2023 2:23 PM EDT): C/w pravastatin. Check Lipid panel. Morbid upxvycf52/10/2024 Assessment & Plan (06/05/2023 2:22 PM EDT): Patient educated on risks of increased cardiovascular morbidity/mortality and poor health outcomes associated with unhealthy bodyweight. Encounters DateTypeDepartmentCare YeytVftyfyqtcml38/29/8967Dluabp16/25/2025Results Follow-Up [facility] [address] [facility] [place] [address] Patti Escobar MA [facility] ALT, [facility] AST, [facility] LIPID MKZQKLJ8911/15/2024linisync Result Encounter [facility] External Department Unsolicited Jenn Barry NP from Last 3 Months Immunizations ImmunizationAdministration DatesNext DueInfluenza, injectable, MDCK, preservative free, ginmmdgcjlng31/01/2019Influenza, injectable, quadrivalent 02/06/2020Influenza, injectable, quadrivalent, preservative free01/16/2021 Influenza, seasonal, /12/2017,12/30/2013,01/07/2013Influenza, seasonal, injectable, preservative free12/26/2015,01/04/2015Moderna SARS-CoV-2 Rkcrwrihbva94/17/2021,1Pfizer Purple Cap SARS-CoV-2 Vaccination 02/16/2021 Family History Medical HistoryRelationNameCommentsHypertensionFatherHypertensionMotherRelation NameStatusCommentsFatherAliveMotherAlive Social History Tobacco UseTypesPacks/DayYears UsedDateSmoking Tobacco: NeverPassive Smoke Exposure: NeverSmokeless Tobacco: Never Tobacco Cessation:Counseling Given: No Alcohol UseStandard Drinks/WeekCommentsNever0 (1 standard drink = 0.6 oz pure alcohol)[id number] Health LiteracyAnswerDate RecordedHow often do you need to have someone help you when you read instructions, pamphlets, or other written material from your doctor or pharmacy?Never12/23/2023Social Connection and Isolation PanelAnswerDate RecordedIn a typical week, how many times do you talk on the phone with family, friends, or neighbors?Once a week12/23/2023How often do you get together with friends or relatives?Once a week12/23/2023How often do you attend jainism or mosque services?Never12/23/2023o you belong to any clubs or organizations such as jainism groups, unions, fraternal or athletic jessica ups, or school groups?No12/23/2023How often do you attend meetings of the clubs or organizations you belong to?Never4Are you , , , , never , or living with a partner?Fsbfhdbs87/01/2024 AUDIT-CAnswerDate RecordedQ1: How often do you have a drink containing alcohol? Monthly or less12/23/2023Q2: How many drinks containing alcohol do you have on a typical day when you are drinking?1 or Q3: How often do you have six or more drinks on one occasion?Never12/23/2023Overall Financial Resource Strain (CARDIA)AnswerDate RecordedHow hard is it for you to pay for the very basics like food, housing, medical care, and heating?Somewhat hard12/23/2023HQ-2Answer Date RecordedPatient Health Questionnaire-2 Phhka436FinCommunity [facility] - Occupational Stress QuestionnaireAnswerDate RecordedDo you feel stress - tense, restless, nervous, or anxious, or unable to sleep at night because yourmind is troubled all the time - these days?To some tebwjx2312/23/2023 Exercise Vital SignAnswerDate RecordedOn average, how many days per week do you engage in moderate to strenuous exercise (like a brisk walk)?0 days12/23/2023On average, how many minutes do you engage in exercise at this level?0 min 12/23/2023Hunger Vital SignAnswerDate RecordedWithin the past 12 months, you worried that your food would run out before you got the money to buymore. Sometimes true12/23/2023Within the past 12 months, the food you bought just didn't last and you didn't have money to get more.Sometimes true12/23/2023 PRAPARE - TransportationAnswerDate RecordedIn the past 12 months, has lack of transportation kept you from medical appointments or from getting medications?No 12/23/2023In the past 12 months, has lack of transportation kept you from meetings, work, or from getting things needed for daily living?No12/23/2023 Housing Stability Vital SignAnswerDate RecordedIn the last 12 months, was there a time when you were not able to pay the mortgage or rent on time?Yes12/23/2023 In the past 12 months, how many times have you moved where you were living?0 12/23/2023t any time in the past 12 months, were you homeless or living in a skilled nursing (including now)?No12/23/2023Sex and Gender InformationValueDate Recorded Sex Assigned at BirthNot on fileLegal OfyTinh1507/22/2022 8:31 PM EDTGender IdentityNot on fileSexual OrientationNot on file Last Filed Vital Signs Vital SignReadingTime TakenCommentsBlood Uqxftcxw10/60009/29/2024 8:36 AM EDT Looas782809/29/2024 8:36 AM GKZGjzfeikvxuk61.7 ??C (98.1 ??F)09/29/2024 8:36 AM EDTRespiratory Qqsr808809/29/2024 8:36 AM EDTOxygen Qetwubhacc42%09/29/2024 8:36 AM EDTInhaled Oxygen Concentration--Hmfgdn359 kg (312 lb)09/29/2024 8:36 AM EDT Tihkcx678.4 cm (6' 1 )10/01/2023 9:32 AM EDTBody Mass Index41.16010/01/2023 9:32 AM EDT Plan of Treatment Health MaintenanceDue DateLast DoneCommentsCT Tywwzsfgpoqf1973Colonoscopy 1973FIT1973FOBT1973 4071Rrtucataqsbxx1973COVID-19 Vaccine ( season), 07/08/2020, 06/05/2020Influenza Vaccine (#1), 02/06/2020, 02/21/2019, Additional history exists Colorectal Cancer Rkwthqend40/27/2027FIT-DNAneumococcal Vaccine: Pediatrics (0 to 5 Years) and At-Risk Patients (6 to 64 Years)Aged Out No longer eligible based on patient's age to complete this topic Goals GoalPatient Goal TypeAssociated ProblemsRecent ProgressPatient-Stated?Author Help patient manage antidepressant medication Care PlanPatient on antidepressant monitoring Brianna Alvarez Baseline PHQ-9 Care PlanBaseline PHQ-9Brianna Todd Procedures Procedure NamePriorityDate/TimeAssociated DiagnosisCommentsMHPT LIPID PROFILE Dtenguh8811/15/2024 8:46 AM EDT [facility] WTIHcdupxz41/25/2025 8:46 AM EDT [facility] UEGBevlbiu10/25/2025 8:46 AM EDT LAB COLOGUARD?? COLON CANCER OURWGEImhyswz09/27/2024 12:20 PM EDT Encounter for screening for malignant neoplasm of colon from Last 3 Months or Most Recently Relevant to Health Maintenance Results * (ABNORMAL) [facility] LIPID PROFILE (11/15/2024 8:46 AM EDT)ComponentValueRef Range Test MethodAnalysis TimePerformed AtPathologist SignatureMHPT [id number] - 199 mg/dLMHPTComment: Cholesterol Guidelines: <200 Desirable 200-240 ??Borderline >240 Undesirable MHPT CHOLESTEROL,HDL28(L)>40 mg/dLMHPTComment: HDL Guidelines: <40 Undesirable 40-59 ?Borderline >59 Desirable MHPT CHOLESTEROL,LTE241 - 100 mg/dLMHPTComment: LDL Guidelines: <100 Desirable 100-129 ?? Near to/above Desirable 130-159 ?? Borderline >159 Undesirable Direct (measured) LDL and calculated LDL are not interchangeable tests. MHPT CHOL/HDL RATIO3.7<5.0MHPTMHPT [id number]<150 mg/dLMHPTComment: Triglyceride Guidelines: <150 Desirable 150-199 ??Borderline 200-499 ??High >499 Very high Based on AHA Guidelines for fasting triglyceride, December 2011. MHPT CHOLESTEROL,[id number] - 30 mg/dLMHPTSpecimen (Source)Anatomical Location / LateralityCollection Method / VolumeCollection TimeReceived Time11/15/2024 8:46 AM EDT11/15/2024 8:47 AM EDT Narrative CLINISYNC - 11/15/2024 3:57 PM EDT Original Ordering Provider: JENN BARRY Authorizing ProviderResult TypeResult StatusLisa Asha NPCLINISYNCFinal ResultPerforming OrganizationAddressCity/State/ZIP CodePhone Number CLINISYNC MHPT * [facility] AST (11/15/2024 8:46 AM EDT)ComponentValueRef RangeTest MethodAnalysis TimePerformed AtPathologist SignatureMHPT [id number] - 50 U/LMHPTSpecimen (Source)Anatomical Location / LateralityCollection Method / VolumeCollection TimeReceived Time11/15/2024 8:46 AM EDT11/15/2024 8:47 AM EDT Narrative CLINISYNC - 11/15/2024 9:51 AM EDT Original Ordering Provider: JENN GALLARDOST. LUKE'S UNIVERSITY HEALTH NETWORKGertrudis Authorizing ProviderResult TypeResult StatusLisa Aicexcela frick hospitalz NPCLINISYNCFinal ResultPerforming OrganizationAddressty/State/ZIP CodePhone Number CLINISYNC MHPT * [facility] ALT (11/15/2024 8:46 AM EDT)ComponentValueRef RangeTest MethodAnalysis TimePerformed AtPathologist SignatureMHPT [id number] - 50 U/LMHPTSpecimen (Source)Anatomical Location / LateralityCollection Method / VolumeCollection TimeReceived Time11/15/2024 8:46 AM EDT11/15/2024 8:47 AM EDT Narrative CLINISYNC - 11/15/2024 9:51 AM EDT Original Ordering Provider: JENN GALLARDOST. LUKE'S UNIVERSITY HEALTH NETWORKGertrudis Authorizing ProviderResult TypeResult StatusLisa Aicholz NPCLINISYNCFinal ResultPerforming OrganizationAddressCity/State/ZIP CodePhone Number ILENENC MHPT * (ABNORMAL) Cologuard?? colon cancer screening (06/18/2023 12:20 PM EDT) ComponentValueRef RangeTest MethodAnalysis TimePerformed AtPathologist SignatureNONINV COLON CA DNA+OCC BLD SCRN STL-IMPPositive(A)Zpbrnzfo38/01/2024 5:56 PM EDTEXiCracked (CLIA #:[id number])Comment: POSITIVE TEST RESULT. A positive Cologuard result should be followed with a colonoscopy or visual examination of the colon. The normal value (reference range) for this assay is negative. TEST DESCRIPTION: Composite algorithmic analysis of stool DNA-biomarkers with hemoglobin immunoassay. ?? Quantitative values of individual biomarkers are not reportable and are not associated with individual biomarker result reference ranges. Cologuard is intended for colorectal cancer screening ofadults of either sex, 45 years or older, who are at average-risk for colorectal cancer (CRC). Cologuard has been approved for use by the [place]. FDA. The performance of Cologuard was established in a cross sectional study of average-risk adults aged 50-84. Cologuard performance in patients ages 45 to 49 years was estimated by sub-group analysis of near-age groups. Colonoscopies performed for a positive result may find as the most clinically significant lesion: colorectal cancer [4.0%], advanced adenoma (including sessile serrated polyps greater than or equal to 1cm diameter) [20%] or non- advanced adenoma [31%]; or no colorectal neoplasia [45%]. These estimates are derived from a prospective cross-sectional screening study of 10,000 individuals at average risk for colorectal cancer who were screened with both Cologuard and colonoscopy. (Jake Chavez al, N Engl J Med 2014;370(14):9580-3242.) Cologuard may produce a false negative or false positive result (no colorectal cancer or precancerous polyp present at colonoscopy follow up). A negative Cologuard test result does not guarantee the absence of CRC or advanced adenoma (pre-cancer). The current Cologuard screening interval is every 3 years. ([place] [employer] and U.S. Multi-Society Task Force). Cologuard performance data in a 10,000 patient pivotal study using colonoscopy as the reference method can be accessed at the following location: [email or web address].Borderfree/results. Additional description of the Cologuard test process, warnings and precautions can be found at www.cologuard.com. Specimen (Source)Anatomical Location / LateralityCollection Method / Volume Collection TimeReceived TimeStool specimen (specimen)06/18/2023 12:20 PM EDT 06/19/2023 8:38 AM EDT Narrative Authorizing ProviderResult TypeResult StatusShaikh Adalid [facility] ORDERABLESFinal ResultPerforming OrganizationAddressCity/State/ZIP CodePhone Number .[place] (CLIA #:[id number]) [address] [address], [place] (CLIA #:[id number]) [address] [address] from Last 3 Months or Most Recently Relevant to Health Maintenance Additional Health Concerns Active ProblemsNoted DateDiagnosed DatePatient on antidepressant monitoring plan 4Baseline PHQ-9105/09/2023 Insurance Care Teams Team MemberRelationshipSpecialtyStart DateEnd Date Richard Harris MD [address] [place] [address] PCP - GeneralFamily Medicine04/26/24 Margarette White NP Nurse PractitionerFamily Medicine11/04/23
--- OUTSIDE RECORDS SUMMARY | 2025-02-03 12:39 | XMS_ITS | Patient Health Record ---
Author Organization [facility] Address [address] [place] [address] Care Team Providers Care Patternmaker Hand Name Role Phone SHAIKH HERRMANN Primary Care Provider Carlito Kendall Unavailable [phone] Allergies No Known Allergies Reason For Referral No Information Medications Medication SIG (Take, Route, Frequency, Duration) Notes Start Date End Date Status pravastatin ActiveallopurinolActivetiZANidineActivesertralineActiveaspirinActivelosartan ActivecarvedilolActiveamLODIPineActivehydroCHLOROthiazideActivebusPIRoneActive Social History Tobacco Use: Social History Observation Description Date Details (start date - stop date) Never Smoker NA - NA AUDIT-C (Standard) Question Answer Notes Did you have a drink containing alcohol in the p ast year? No Gnusns7EhjaoopnmhecevXlnlzaliSlusehg Control (Standard) Question Answer Notes Tobacco use: Nonsmoker Problems Problem Type SNOMED Code ICD Code Onset Dates Problem Status W/U Status Risk Notes Problem Lesion of ulnar nerve (035213012 ) Cubital tunnel syndrome on right (G56.21) ActiveconfirmedProblemSurgical follow-up (967193200)Aftercare following surgery of the nervous system (Z48.811)ActiveconfirmedProblemNumbness (65694875)Numbness (R20.0)ActiveconfirmedProblemSpinal stenosis of lumbar region (43894708)Spinal stenosis, lumbosacral region (M48.07)ActiveconfirmedProblemDisplacement of lumbar intervertebral disc without myelopathy (30751195)Other intervertebral disc displacement, lumbosacral region (M51.27)ActiveconfirmedProblemLumbar radiculopathy (880472482)Radiculopathy, lumbar region (M54.16)Activeconfirmed ProblemLesion of ulnar nerve (515864418)Cubital tunnel syndrome, left (G56.22) ActiveconfirmedProblemDegenerative disc disease (36289676)DDD (degenerative disc disease), lumbar (M51.36)ActiveconfirmedProblemPostprocedural states (975625290) S/P cubital tunnel release (Z98.890)ActiveconfirmedProblemEncounter for other orthopedic aftercare (Z47.89)Activeconfirmed Plan Of Treatment Pending Test Test Name Order Date Lumbar spine, 4v flex ext - 96498 2023 EMG/NCS Upper Extremity, Right 4 Pre Op: CBC, BMP, EKG, CXR, MRSA-PCR (na ramana swabs) 09/08/2023 Pain management- Eval and treat 07/11/19 24 Insurance Providers Payer Name Payer Address Payer Phone Subscriber Number Group Number Insured Name Patient Relationship to Insured Coverage Start Date Coverage End Date [facility] [address] [address] [place] [phone] [id number] [employer] - patient is the insured Medical (General) History Medical History History ICD Code Diabetes High Blood PressureDepressionAnxietyKidney troubleSleep apneaCPAP Machine: Yes Surgical History Surgery Date(Month/Year) Right cubital tunnel release 10/06/2023
--- OUTSIDE RECORDS SUMMARY | 2025-02-03 12:39 | XMS_ITS | Patient Health Record ---
Author Organization [facility] [place] Address [address] [place] [address] Care Team Providers Care Concrete Buildings Assembler Name Role Phone Shaikh Cordoba MD Primary Care Provider Unavaila ble Allergies No Known Allergies Reason For Referral No Information Medications Medication SIG (Take, Route, Frequency, Duration) Notes Start Date End Date Status Albuterol ActiveTrulicityActiveamLODIPine Besylate 10 MG1 tablet Orally Once a dayActive Allopurinol 300 MG1 tablet Orally Once a dayActiveCarvedilol 25 MG1 tablet with food Orally Twice a dayActiveAspirin 81 81 MG1 tablet Orally Once a dayActive Losartan Potassium-HCTZ 100-25 MG1 tablet Orally Once a dayActiveEmpagliflozin 10 MG1 tablet Orally Once a dayActiveSertraline HCl 50 MG1 tablet Orally Once a dayActivePravastatin Sodium 40 MG1 tablet Orally Once a dayActivetiZANidine HCl 4 MG1 tablet as needed Orally Three times a dayActive Social History Tobacco Use: Social History Observation Description Date Details (start date - stop date) Never Smoker NA - NA Tobacco Use/Smoking Question Answer Notes Patient is a nonsmoker Plan Of Treatment No Information Insurance Providers Payer Name Payer Address Payer Phone Subscriber Number Group Number Insured Name Patient Relationship to Insured Coverage Start Date Coverage End Date [employer] [address] [place], [place] [id number] [phone] [id number] Hair Santos Self - patient is the insured 3 Medical (General) History Medical History History ICD Code diabetes gouthypertensionSurgical History Surgery Date(Month/Year) kidney stones
--- OUTSIDE RECORDS SUMMARY | 2025-02-03 12:41 | XMS_ITS | CCD ---
Author Organization [facility] Team Providers Care Cattle Shipper Name Role Phone Alexandra Gill Unavailable DimasAlexandra martínez Unavailable JUSTO Cannon Attending Provider Mamie Cannon Unavailable FAWWAD, YIN H Admitting Unavailable FAWWAD, YIN H Attending Unavailable FAWWAD, YIN H Consulting Unavailable FAWWAD, YIN H Primary Care Unavailable JOSE ., DR HUNT Admitting Unavailable HAY ., DR HUNT Attending Unavailable HAY ., [...] Unavailable Steven SIMS, Richard Primary Care Provider [phone] White PLANT MAINTENANCE SUPERVISOR, Anna Unavailable [phone] Maddie SIMS, Swapnil Cummins Attending Unavailable Maddie SIMS, Andeliana Cummins Attending Unavailable Maddie SIMS, Andrius Cummins Attending Unavailable Maddie SIMS, Andeliana Cummins Attending Unavailable Shaikh Cordoba MD Primary Care Provider Richard Harris MD Primary Care Provider Christopher PLANT MAINTENANCE SUPERVISOR, Anna Unavailable [phone] Asha NIB FINISHER - PLANT MAINTENANCE SUPERVISOR, Jenn Covarrubias Primary Care Provide r JENN BARRY Attending Unavailable JENN BARRY Attending Unavailable ANNA WHITE Attending Unavailabl MORGAN Vergara Admitting Unavailable MORGAN LOVELL Attending Unavailable JENN BARRY Primary Care Unavailable Shaikh Cordoba MD Primary Care Provider Richard Harris MD Primary Care Provider Unallocated , [place] Provider Primary Care Provi stefano Richard Harris MD Primary Care Provider Asha PLANT MAINTENANCE SUPERVISOR-C, Jenn Sage Primary Care Provider [phone] Asha PLANT MAINTENANCE SUPERVISOR-C, Jenn Sage Attending Provider JENN BARRY. Primary Care Unavailable JENN BARRY Referring Unavailable VIRGINIA RAMOS Referring Unavailable JENN BARRY. Primary Care Unavailable JENN BARRY. Primary Care Unavailable JENN BARRY. Primary Care Unavailable YVES JOSE Attending Unavailable JENN BARRY Referring Unavailable JENN BARRY Primary Care Unavailable JENN BARRY. Primary Care Unavailable JENN BARRY. Referring Unavailable Medications Current Medications MedicationDrug Class(es)DatesSig (Normalized)Sig (Original)acetaminophen 325 mg / HYDROcodone bitartrate 5 mg oral tablet (20 sources)Opioid AgonistStart: 10-06-2023 End: 33-34-3082ggps 1 tablet by mouth every six hours as neededHYDROcodone- acetaminophen ([place]) 5-325 MG tablet Take 1 tablet by mouth every 6 (six) hours if needed 10/06/2023 [id number] 200 actuat albuterol 0.09 mg/actuat metered dose inhaler (4 sources)beta2-Adrenergic AgonistStart: 09-00-1718stsn 2 puff(s) by inhalation four times daily as needed for wheezingalbuterol sulfate HFA (VENTOLIN HFA) 108 (90 Base) MCG/ACT inhaler Inhale 2 puffs into the lungs 4 times daily as needed for Wheezing 18 g 01/25/2025 ActiveStart: 60-02-2989oskl 2 puff(s) by inhalation every four to six hours as neededAlbuterol Sulfate HFA 108 (90 Base) MCG/ACT 2 puffs as needed Inhalation every 4-6 hours for 14 days Jan, ActiveStart: 32-33-5277csdi 2 puff(s) by inhalation every four hours as neededAlbuterol Sulfate HFA 108 (90 Base) MCG/ACT 2 puffs as needed Inhalation every 4 hrs Nov, Activeallopurinol 300 mg oral tablet (20 sources)Xanthine Oxidase InhibitorStart: 10-01-2023 End: 11-95-1819nkld 1 tablet by mouth once dailyAllopurinol 300 mg tablet Active 300 MG PO Daily November 25, 2024 12:00am Complies with drug therapytake 1 tablet by mouth once dailyallopurinol (ZYLOPRIM) 100 MG tablet Take 1 tablet by mouth daily ActiveamLODIPine 5 mg oral tablet (20 sources)Dihydropyridine Calcium Channel BlockerStart: 78-34-2052rxdg 1 tablet by mouth once dailyAmlodipine 5 mg tablet Active 5 MG PO Daily November 25, 2024 12:00am Complies with drug therapyStart: 03-29-2024 End: 61-05-4692rvvi 1 tablet by mouth once dailyamLODIPine (Norvasc) 10 MG tablet Indications: Essential hypertension Take 1 tablet (10 mg) by mouth Daily 90 tablet 1 09/29/2024 12/28/2024 ActiveStart: 10-01-2023 End: 11-49-0193ncng 1 tablet by mouth once dailyamLODIPine (Norvasc) 10 MG tablet Indications: Essential hypertension (CMS/HCC) Take 1 tablet (10 mg) by mouth Daily 90 tablet 1 03/08/2024 03/25/2024 Discontinued (Reorder)take 1 tablet by mouth once dailyamLODIPine (NORVASC) 2.5 MG tablet Take 1 tablet by mouth daily ActiveamLODIPine Besylate Activeamoxicillin 875 mg / clavulanate 125 mg oral tablet (1 source)Penicillin-class AntibacterialStart: 01-30-2025 End: 71-30-0120tzfz 1 tablet by mouth twice dailyamoxicillin-clavulanate (AUGMENTIN) 875-125 MG per tablet Take 1 tablet by mouth 2 times daily for 7 days 14 tablet 01/30/2025 02/06/2025 ActiveASA (6 sources)ASA Activeaspirin 81 mg delayed release oral tablet (20 sources)Platelet Aggregation Inhibitor, Nonsteroidal Anti-inflammatory Drug Start: 84-99-4609ynxf 1 tablet by mouth once dailyAspirin (Enteric Coated Aspirin) 81 mg tablet,delayed release (DR/EC) Active 81 MG PO Daily 90 1 Nov 12:00am Hyperlipidemia Primary hypertension Type 2 diabetes mellitus without complications Hyperlipidemia, unspecified Essential (primary) hypertension Complies with drug therapyStart: 11-25-2024 End: 69-00-4731cofn 1 tablet by mouth once dailyAspirin 81 mg tablet Discontinued 81 MG PO Daily 90 December 17, 2024 6:37am December 21 5:30pm Primary hypertension Hyperlipidemia Type 2 diabetes mellitus without complications Essential (primary) hypertension Hyperlipidemia, unspecifiedStart: 06-29-2024 End: 94-72-0774dxvk 1 tablet by mouth once dailyaspirin 81 MG EC tablet Indications: Essential hypertension , Type 2 diabetes mellitus without compl ication, without long-term current use of insulin (HCC) Take 1 tablet (81 mg) by mouth Daily 90 tablet 1 06/29/2024 09/29/2024 ActiveAtenolol (6 sources)beta-Adrenergic BlockerAtenolol Activeatorvastatin 20 mg oral tablet (17 sources)HMG-CoA Reductase InhibitorStart: 09-02-2024 End: 18-83-6522timf 1 tablet by mouth once dailyatorvastatin (LIPITOR) 20 MG tablet Take 1 tablet by mouth nightly 09/02/2024 Activeazithromycin 250 mg oral tablet (3 sources)Macrolide AntimicrobialStart: 01-25-2025 End: 71-43-8358xxryofilgfit (ZITHROMAX) 250 MG tablet 500mg on day 1 followed by 250mg on days 2 - 5 6 tablet 01/25/2025 02/04/2025 ActiveStart: 01-25-2025 End: 10-27-0168zsks 1 capsule by mouth ubna549 mg, Oral, ONCE, 1 dose, On Fri01/25/25 at 0830, Antimicrobial Indications: Pneumonia (CAP)benzonatate 200 mg oral capsule (3 sources)Non-narcotic AntitussiveStart: 01-25-2025 End: 11-74-0067ddbv 1 capsule by mouth three times daily as needed for cough benzonatate (TESSALON) 200 MG capsule Take 1 capsule by mouth 3 times daily as needed for Cough 30 capsule 01/25/2025 02/04/2025 ActiveStart: 69-34-5287ejpd 1 capsule by mouth three times daily as neededTessalon Perles 100 MG 1 capsule as needed Orally Three times a day Nov, ActiveBlood Glucose Monitoring Suppl (OneTouch Verio Flex System) w/Device kit (4 sources)Start: 90-52-3489Rlhmm Glucose Monitoring Suppl (OneTouch Verio Flex System) w/Device kit USE DIRECTED 5ActivebusPIRone hydrochloride 15 mg oral tablet (20 sources)Start: 11-25-2024 End: 94-77-3843duwb 1 tablet by mouth three times dailyBuspirone 15 mg tablet Active 15 MG PO Three times daily 270 0 January 17, 2025 1:11pm Anxiety with depression Other specified anxiety disorders Complies with drug therapyStart: 06-29-2024 End: 51-85-8991sydg 1 tablet by mouth every eight hoursbusPIRone (Buspar) 15 MG tablet Indications: JAN (generalized anxiety disorder) Take 1 tablet (15 mg) by mouth every 8 (eight) hours if needed (anxiety) 270 tablet 1 06/29/2024 Active Start: 10-01-2023 End: 15-31-2147dbob 1 tablet by mouth three times daily as needed for anxiety busPIRone (Buspar) 10 MG tablet Indications: JAN (generalized anxiety disorder) (CMS/HCC) Take 1 tablet (10 mg) by mouth 3 (three) times a day as needed (Anxiety) 270 tablet 1 10/01/2023 06/29/2024 Discontinued (Ineffective)take 1 tablet by mouth three times daily as neededbusPIRone (BUSPAR) 5 MG tablet Take 1 tablet by mouth 3 times daily as needed Activecalcium chloride 0.0014 meq/ml / potassium chloride 0.004 meq/ml / sodium chloride 0.103 meq/ml / sodium lactate 0.028 meq/ml injectable solution (2 sources)Start: 39-54-6166TdjoaENZcov, at 100 mL/hr, CONTINUOUS, Starting on Dominique 10/28/24 at 0845, Pre-op (day of surgery)Start: 52-43-7183vsaqnruk ringers IV soln infusioncephalexin 500 mg oral capsule (10 sources)Cephalosporin AntibacterialStart: 10-06-2023 End: 29-24-7742lnib 1 capsule by mouth in the morning, then take 1 capsule by mouth in the evening, then take 1 capsule by mouth at bedtimecephalexin (Keflex) 500 MG capsule Take 500 mg by mouth in the morning and 500 mg in the evening and 500 mg before bedtime. 10/06/2023 12/30/2023 Discontinued (Therapy completed) Start: 10-06-2023 End: 62-31-2155hdrg 1 capsule by mouth three times dailycephALEXin (KEFLEX) 500 MG capsule Take 1 capsule by mouth 3 times daily for 7 days 21 capsule 0 10/13/2023 ActiveStart: 40-48-6069lenz 1 capsule by mouth every twelve hoursCephalexin 500 MG 1 capsule Orally two times a day for 5 day(s) Sep, ActiveStart: 41-53-1563lsjw 1 tablet by mouth every twelve hoursCephalexin 500 MG 1 tablet Orally every 12 hrs for 10 day(s) Apr, ActiveContinuous Glucose Airplane Pilot Helper (Dexcom G7 Airplane Pilot Helper) device (9 sources)Start: 01-05-2024 End: 97-07-8601Gukkztsocb Glucose Airplane Pilot Helper (Dexcom G7 Airplane Pilot Helper) device Indications: Type 2 diabetes mellitus without complication, without long-term current use of insulin 1 each continuously 1 each 2 01/05/2024 06/29/2024 Discontinued (Cost of medication)Start: 03-60-8290Gitidhzeyf Glucose Airplane Pilot Helper (Dexcom G7 Airplane Pilot Helper) device Indications: Type 2 diabetes mellitus without complication, without long-term current use of insulin (CMS/HCC) 1 each continuously 1 each 2 01/05/2024 ActiveContinuous Glucose Sensor (Dexcom G7 Sensor) [facility] ([facility])Start: 01-05-2024 End: 88-70-5996Mgqvljrlbj Glucose Sensor (Dexcom G7 Sensor) [facility] [place] Indications: Type 2 diabetes mellitus without complication, without long-term current use of insulin 1 each continuously 3 each 1 01/05/2024 06/29/2024 Discontinued (Cost of medication)Start: 02-08-2679Qvsfdwmzir Glucose Sensor (Dexcom G7 Sensor) [facility] [place] Indications: Type 2 diabetes mellitus without complication, without long-term current use of insulin (CMS/HCC) 1 each continuously 3 each 1 01/05/2024 Active Continuous Glucose Sensor (FreeStyle Marlon 2 Sensor) [facility] (12 sources)Start: 09-22-2023 End: 21-15-0739Oxssaviqhm Glucose Sensor (FreeStyle Marlon 2 Sensor) [facility] [place] Indications: Type 2 diabetes mellitus without complication, without long-term current use of insulin 1 each by Other route every 14 (fourteen) days 6 each 1 09/22/2023 06/29/2024 Discontinued (Cost of medication)Start: 09-22-2023 Continuous Glucose Sensor (FreeStyle Marlon 2 Sensor) [facility] [place] Indications: Type 2 diabetes mellitus without complication, without long-term current use of insulin (CMS/HCC) 1 each by Other route every 14(fourteen) days 6 each 1 09/22/2023 Activeempagliflozin (6 sources)Sodium-Glucose Cotransporter 2 InhibitorJARDIANCE Activefluticasone propionate 0.05 mg/actuat metered dose nasal spray (2 sources)CorticosteroidStart: 64-16-4093rahg 1 spray(s) nasal route once daily Fluticasone Propionate 50 MCG/ACT 1 spray in each nostril Nasally Once a day for 21 days 13 Sep, 2021 ActiveglipiZIDE 5 mg oral tablet (15 sources)SulfonylureaStart: 10-01-2023 End: 00-81-1930xqod 1 tablet by mouth in the morningglipiZIDE (Glucotrol) 5 MG tablet Indications: Type 2 diabetes mellitus without complication, without long- term current use of insulin Take 1 tablet (5 mg) by mouth in the morning and 1 tablet (5 mg)in the evening. Take before meals. 180 tablet 1 03/29/2024 06/29/2024 Discontinued (Therapy completed)hydroCHLOROthiazide 25 mg / losartan potassium 100 mg oral tablet (20 sources)Thiazide Diuretic, Angiotensin 2 Receptor BlockerStart: 10-01-2023 End: 46-66-5110rgvo 1 tablet by mouth once dailyLosartan-Hydrochlorothiazide 100-25 mg tablet Active 1 TAB PO Daily November 25, 2024 12:00am Complies with drug therapyhydrOXYzine (6 sources)AntihistaminehydrOXYzine HCl ActiveLisinopril (6 sources)Angiotensin Converting Enzyme InhibitorLisinopril Active methylPREDNISolone 4 mg oral tablet (2 sources)CorticosteroidStart: 01-30-2025 End: 69-65-2336wftpcmTULPLLFynsxj (MEDROL, BELA,) 4 MG tablet Take by mouth. 1 kit 01/30/2025 02/05/2025 ActiveStart: 18-19-9182ljnokxNFEUCIPyyfsz 4 MG as directed Orally Once a day for 6 days Nov, Activemupirocin 0.02 mg/mg topical ointment (14 sources)RNA Synthetase Inhibitor AntibacterialStart: 10-06-2023 End: 24-65-5932tijranhcn (Bactroban) 2 % ointment 10/06/2023 06/29/2024 Discontinued (Therapy completed)Start: 52-79-3205Toxrzhkwo 2 % 1 application Externally Three times a day for 7 days Apr, Activeofloxacin 3 mg/ml otic solution (12 sources)Quinolone AntimicrobialStart: 08-11-2023 End: 94-39-0915ttwoljsom (Floxin) 0.3 % otic solution instill 5 (FIVE) DROPS into the affected EAR TWICE DAILY FOR7 DAYS 08/11/2023 06/29/2024 Discontinued (Therapy completed)OZEMPIC, 2 MG/DOSE, 8 MG/3ML SOPN sc injection (6 sources)Start: 12-74-0761SGQOBBH, 2 MG/DOSE, 8 MG/3ML SOPN sc injection Inject 2 mg into the skin every 7 days 08/04/2024 Activepregabalin 50 mg oral capsule (1 source)Start: 72-25-6890vxpv 1 capsule by mouth every eight hoursPregabalin 50 mg capsule Active 50 MG PO Every 8 hours January 19, 2025 12:00am Complies with drug therapySemaglutide (1 source)Start: 81-73-2040endptz 2 mg by subcutaneous injection every week Semaglutide 2 mg/dose (8 mg/3 mL) pen injector Active 2 MG SUBCUT every week November 25, 2024 12:00am Complies with drug therapySemaglutide, 2 MG/DOSE, (Ozempic, 2 MG/DOSE,) 8 MG/3ML solution pen-injector (20 sources)Start: 63-82-9701Uwxmjrilyxg, 2 MG/DOSE, (Ozempic, 2 MG/DOSE,) 8 MG/3ML solution pen-injector Indications: Type 2 diabetes mellitus without complication, without long-term current use of insulin (HCC) Inject 2 mg under the skin every 7 (seven) days 9 mL 08/04/2024 ActiveStart: 08-04-2024 Semaglutide, 2 MG/DOSE, (Ozempic, 2 MG/DOSE,) 8 MG/3ML solution pen-injector Indications: Type 2 diabetes mellitus without complication, without long-term current use of insulin Inject 2 mg under theskin every 7 (seven) days 9 mL 08/04/2024 ActiveStart: 05-31-2024 End: 61-12-7251Chxgavjcoks, 2 MG/DOSE, (Ozempic, 2 MG/DOSE,) 8 MG/3ML solution pen-injector Indications: Type 2 diabetes mellitus without complication, without long-term current use of insulin Inject 2 mg under theskin every 7 (seven) days 9 mL 1 05/31/2024 08/29/2024 ActiveStart: 70-09-8675Umbpchuwzsg, 2 MG/DOSE, (Ozempic, 2 MG/DOSE,) 8 MG/3ML solution pen-injector Indications: Type 2 collette betes mellitus without complication, without long-term current use of insulin (CMS/HCC) Inject 2 mgunder the skin every 7 (seven) days 9 mL 1 01/26/2024 ActiveStart: 01-26-2024 End: 38-55-2384Ucaviufjvyu, 2 MG/DOSE, (Ozempic, 2 MG/DOSE,) 8 MG/3ML solution pen-injector Indications: Type 2 diabetes mellitus without complication, without long-term current use of insulin (CMS/HCC) Inject 2 mgunder the skin every 7 (seven) days 9 mL 1 01/26/2024 04/25/2024 ActiveStart: 37-78-0077Kaubpayoaht, 2 MG/DOSE, (Ozempic, 2 MG/DOSE,) 8 MG/3ML solution pen-injector Indications: Type 2 diabetes mellitus without complication, without long-term current use of insulin (CMS/HCC) Inject 2 mgunder the skin every 7 (seven) days 9 mL 1 10/01/2023 Activesertraline 50 mg oral tablet (20 sources)Serotonin Reuptake InhibitorStart: 51-40-5576hhjc 1 tablet by mouth once dailySertraline 50 mg tablet Active 50 MG PO Daily November 25, 2024 12:00am Complies with drug therapyStart: 10-01-2023 End: 65-98-7877rlbn 1 tablet by mouth once dailysertraline (Zoloft) 50 MG tablet Indications: JAN (generalized anxiety disorder) Take 1 tablet (50 mg) by mouth Daily 90 tablet 1 06/29/2024 Activetake 1 tablet by mouth once dailysertraline (ZOLOFT) 25 MG tablet Take 1 tablet by mouth daily ActiveZoloft Active5 ml sodium chloride 9 mg/ml injection (3 sources)Start: .9 % sodium chloride infusionStart: 10-06-2023 sodium chloride flush 0.9 % injection 5-40 mLspironolactone 25 mg oral tablet (20 sources)Aldosterone AntagonistStart: 98-09-8538Nuhzkvpwomkbrc (Aldactone) 25 mg tablet Active 12.5 MG PO Daily November 25, 2024 12:00am Complies with drug therapyStart: 10-01-2023 End: 12-64-9594xgpp 1 tablet by mouth once dailyspironolactone (Aldactone) 25 MG tablet Indications: Essential hypertension Take 1 tablet (25 mg) by mouth Daily 90 tablet 1 09/29/2024 12/28/2024 ActivetiZANidine 4 mg oral capsule (20 sources)Central alpha-2 Adrenergic AgonistStart: 70-21-2346zqir 1 capsule by mouth every eight hours as neededTizanidine 4 mg capsule Active 4 MG PO Every 8 hours as needed November 25, 2024 12:00am Muscle spasm Other muscle spasm Complies with drug therapyStart: 10-01-2023 End: 33-67-0209sebd 1 tablet by mouth every eight hours for muscle spasms tiZANidine (Zanaflex) 4 MG tablet Indications: Acute bilateral low back pain with right-sided sciatica Take 1 tablet (4 mg) by mouth every 8 (eight) hours if needed for muscle spasms 270 tablet 1 09/29/2024 12/28/2024 Activetake 1 tablet by mouth every six hours as neededtiZANidine (ZANAFLEX) 2 MG tablet Take 1 tablet by mouth every 6 hours as needed Active Completed/Discontinued Medications MedicationDrug Class(es)DatesSig (Normalized)Sig (Original)albuterol 0.833 mg/ml / ipratropium bromide 0.167 mg/ml inhalation solution (1 source)Anticholinergic, beta2-Adrenergic AgonistStart: 01-30-2025 End: 70-97-7443hjap 1 dose by inhalation once1 Dose, Inhalation, Once, 1 dose, On 01/30/25 at 1545, Initiate RT Bronchodilator Protocol: Yes - Inpatient Protocolcarvedilol 25 mg oral tablet (20 sources)alpha-Adrenergic Micheal, beta-Adrenergic BlockerStart: 11-25-2024 End: 33-83-3908yjda 1 tablet by mouth every twelve hours at mealtimeCarvedilol 25 mg tablet Discontinued 25 MG PO Every 12 hours November 25, 2024 12:00am January 19, 2025 3:02pm must administer with a meal/foodStart: 10-01-2023 End: 57-64-8057vtda 1 tablet by mouth in the morningcarvedilol (Coreg) 25 MG tablet Indications: Essential hypertension Take 1 tablet (25 mg) by mouth in the morning and 1 tablet (25 mg) in the evening. Take with meals. 180 tablet 1 09/29/2024 12/28/2024 Activetake 1 tablet by mouth once dailycarvedilol (COREG) 3.125 MG tablet Take 1 tablet by mouth daily Activetake 1 tablet by mouth twice daily at mealtimecarvedilol (COREG) 3.125 MG tablet Take 1 tablet by mouth 2 times daily (with meals) ActiveceFAZolin (ANCEF) 3,000 mg in sodium chloride 0.9 % 100 mL IVPB (1 source)Start: 10-06-2023 End: 42-58-7987ksCAEvnhu (ANCEF) 3,000 mg in sodium chloride 0.9 % 100 mL IVPB cefTRIAXone (4 sources)Cephalosporin AntibacterialStart: 66-15-2289Kjrrjgzb 500 mg May, 1 ghydroCHLOROthiazide 12.5 mg oral capsule (13 sources)Thiazide Diuretic End: 41-27-6399cuik 1 capsule by mouth once dailyhydroCHLOROthiazide 12.5 MG capsule Take 1 capsule by mouth daily 10/19/2024 Discontinued (LIST CLEANUP) hydroCHLOROthiazide Activelosartan potassium 25 mg oral tablet (7 sources)Angiotensin 2 Receptor Micheal End: 13-31-3185eulz 1 tablet by mouth once dailylosartan (COZAAR) 25 MG tablet Take 1 tablet by mouth daily 10/19/2024 Discontinued (LIST CLEANUP) methylPREDNISolone sodium succ (SOLU-MEDROL) 125 mg in sterile water 2 mL injection (1 source)Start: 01-30-2025 End: 75-44-1036913 mg, IntraVENous, ONCE, On 01/30/25 at 1545, For 1 dose, Reconstitute 125 mg vial with 2 mL diluent.pravastatin sodium 40 mg oral tablet (20 sources)HMG-CoA Reductase InhibitorStart: 10-01-2023 End: 57-41-7539avvv 1 tablet by mouth at bedtimepravastatin (Pravachol) 40 MG tablet Indications: Dyslipidemia Take 1 tablet (40 mg) by mouth at bedtime 90 tablet 1 06/29/2024 09/02/2024 Discontinued (Ineffective)take 1 tablet by mouth once dailypravastatin (PRAVACHOL) 10 MG tablet Take 1 tablet by mouth daily ActivePravastatin ActivePravastatin Sodium Active Problems Active Problems Problem ClassificationProblemDateDocumented DateEpisodic/ChronicAbdominal pain (4 sources)Right upper quadrant pain; Translations: [RIGHT UPPER QUADRANT PAIN] Onset: 91-33-6885NevxqdjzKtsjqpc disorders (20 sources)Mixed anxiety and depressive disorder; Translations: [Other specified anxiety disorders]Onset: 06-05-2023 Resolved: 345370-81-2156ZmggfegSeovfvd obstructive pulmonary disease and bronchiectasis (2 sources)Bronchitis; Translations: [Bronchitis, not specified as acute or chronic]Onset: 874639-89-2802DbhvfubzSaktmcrs mellitus with complications (13 sources)Type 2 diabetes mellitus; Translations: [Type 2 diabetes mellitus with other specified complication]Onset: 965638-48-1812RkedpxrUxaudbqf mellitus without complication (20 sources)Type 2 diabetes mellitus without complications; Translations: [Type 2 diabetes mellitus without complication]Onset: 26-90-0983AictgcsNsofotsbz of lipid metabolism (20 sources)Hyperlipidemia, unspecified; Translations: [Dyslipidemia]Onset: 03-09-2020 Resolved: 875166-67-9247NogbfgqUsdviczne hypertension (20 sources)Essential (primary) hypertension; Translations: [Essential hypertension]Onset: 19-62-3159KqamwikQcruvg and vomiting (6 sources)Nausea and vomiting; Translations: [Nausea with vomiting, unspecified]EpisodicOther aftercare (1 source)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 term care administrator (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) use of 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; Translations: [PICKING SUPERVISOR CURRENT USE OF ASPIRIN]Onset: 33-70-0914MmiqveayApece aftercare (1 source)Other care home (current) drug therapy; Translations: [OTH [facility] CURRENT DRUG THERAPY]Onset: 82-85-8118XdfwqvwtUeaek and ill-defined heart disease (6 sources)Cardiomegaly; Translations: [Cardiomegaly]Onset: ChronicOther connective tissue disease (1 source)Spasm; Translations: [Other muscle spasm]91-89-3311TtamonldNqsmz ear and sense organ disorders (6 sources)Otitis externa; Translations: [Other otitis externa, bilateral] ChronicOther ear and sense organ disorders (6 sources)Hearing loss; Translations: [Unspecified hearing loss, unspecified ear]Onset: 989975-50-5988PvojwjxBvesr gastrointestinal disorders (12 sources)Diarrhea; Translations: [Diarrhea, unspecified]EpisodicOther gastrointestinal disorders (1 source)Other fecal abnormalities; Translations: [Other fecal abnormalities] Onset: 84-45-2263KnoexoawYnfmp lower respiratory disease (2 sources)Cough; Translations: [Acute cough]37-35-6401HlhrwlibZncve lower respiratory disease (1 source)Wheezing; Translations: [Wheezing]Onset: 68-66-2705SpdauhzvPckdd lower respiratory disease (1 source)Wheezing; Translations: [Wheezing]52-25-4123JakvfknkQobtb nervous system disorders (20 sources)Entrapment of right ulnar nerve; Translations: [Lesion of ulnar nerve, right upper limb]Onset: 781804-55-6844QxsptdzQszaf nervous system disorders (2 sources)Impaired cognition; Translations: [Other symptoms and signs involving cognitive functions and awareness]61-00-0011QouqgzgzWfdrr nervous system disorders (2 sources)Other symptoms and signs involving cognitive functions and awareness; Translations: [Other symptomsand signs involving cognitive functions and awareness]Onset: 72-81-3512XpmmzmxfJwlvg nutritional; endocrine; and metabolic disorders (20 sources)Morbid obesity; Translations: [Morbid (severe) obesity due to excess calories]Onset: 03-09-2020 Resolved: 567705-24-5351QwrzkpaXizdp nutritional; endocrine; and metabolic disorders (20 sources)Body mass index 40+ - severely obese; Translations: [Body mass index (BMI) 40.0-44.9, adult]Onset: 603384-20-6316ZiwzbmaTjwia nutritional; endocrine; and metabolic disorders (20 sources)Obesity caused by energy imbalance; Translations: [Morbid (severe) obesity due to excess calories]Onset: 910965-25-1063DrxehpaOnhjz upper respiratory infections (2 sources)Acute maxillary sinusitis, unspecified; Translations: [Acute maxillary sinusitis]Onset: [id number] codes; unclassified (20 sources)Sleep apnea; Translations: [Sleep apnea, unspecified]Onset: 981863-25-9743SiugqpmKwnvqzwd codes; unclassified (4 sources)Obstructive sleep apnea syndrome; Translations: [Obstructive sleep apnea (adult) (pediatric)]07-20-6747UbjmjwhXifxefcn codes; unclassified (2 sources)Obstructive sleep apnea (adult) (pediatric); Translations: [Obstructive sleep apnea (adult) (pediatric)]Onset: 73-29-0467Mxiuysx Spondylosis; intervertebral disc disorders; other back problems (1 source)Other intervertebral disc degeneration, lumbar region; Translations: [Other intervertebral disc degeneration, lumbar region]Onset: 49-52-3751Rfzthuk Unclassified (1 source)Low back pain, unspecified; Translations: [Low back pain, unspecified] Onset: 82-76-6364Etxyzvhqevpe (16 sources)Patient on antidepressant monitoring planOnset: Unclassified (16 sources)Baseline PHQ-9Onset: 982391-60-2221Tvtfqppbzspm (1 source)Acute cough; Translations: [Acute cough]Onset: 01-30-2025 Past or Other Problems Problem ClassificationProblemDateDocumented DateEpisodic/ChronicGastrointestinal hemorrhage (6 sources)Rectal hemorrhage; Translations: [Hemorrhage of anus and rectum] Onset: 353315-16-7409PjwvctfkCsdgygtqfsayt symptoms and ill-defined conditions (3 sources)DysuriaOnset: 10-10-2021 Resolved: 23-48-5982SldyciqqOoiezptnadlxi and screening for infectious disease (20 sources)Contact with and (suspected) exposure to other viral communicable diseases; Translations: [Methicillin resistant staphylococcus aureus positive] Onset: 02-19-2021 Resolved: 20-41-5950DaglbyobSrhlqtggdfb chest pain (6 sources)Precordial pain; Translations: [Precordial pain]Onset: 08-06-2019 91-87-3052JutehewzNmmtz connective tissue disease (20 sources)Pain in right heel; Translations: [Pain in right foot]Onset: 047939-31-8402LkctcixoNumrn gastrointestinal disorders (20 sources)Stool DNA-based colorectal cancer screening positive; Translations: [Other fecal abnormalities]Onset: 683944-05-8814NzalchzcXissl gastrointestinal disorders (20 sources)Constipation; Translations: [Constipation, unspecified]Onset: 268217-13-2377VzosmdwnQyzil lower respiratory disease (6 sources)Dyspnea; Translations: [Shortness of breath]Onset: 08-06-2019 40-66-1554BbaaecibGglky nervous system disorders (1 source)Postoperative pain ; Translations: [Other acute postprocedural pain] 80-51-9218OyoikuojBbiky nutritional; endocrine; and metabolic disorders (20 sources)Hyperuricemia; Translations: [Hyperuricemia without signs of inflammatory arthritis and tophaceous disease]Onset: EpisodicOther nutritional; endocrine; and metabolic disorders (2 sources)Hyperuricemia without signs of inflammatory arthritis and tophaceous disease; Translations: [Hyperuricemia without signs of inflammatory arthritis and tophaceous disease]Onset: 39-54-5026JflnartzAdjqa screening for suspected conditions (not mental disorders or infectious disease) (20 sources)Patient encounter status; Translations: [Encounter for screening for malignant neoplasm of colon]Onset: 784892-98-6907MxmffbysRqnfpjby codes; unclassified (6 sources)History of chest pain; Translations: [Personal history of other specified conditions]Onset: 811246-71-6851GcqsctebMwdr and subcutaneous tissue infections (1 source)Cellulitis of right toeOnset: 05-10-2021 Resolved: 11-76-7076GmlqswhyAtupdkjphvt; intervertebral disc disorders; other back problems (20 sources)Acute back pain with sciatica; Translations: [Lumbago with sciatica, right side]Onset: 790843-75-2668DemsiatiRfguqlahxhqg (1 source)Patient encounter -21-7834Stonhik tract infections (3 sources)Urinary tract infection, site not specifiedOnset: 10-10-2021 Resolved: 06-77-3112PccpiidzReamt infection (2 sources)COVID-19Onset: 02-19-2021 Resolved: 02-19-2021 Results Test NameValueInterpretationReference RangeFacilityBMPon 42-01-2822Kcdxu gap [Moles/Vol]9 mmol/L9 - 16 mmol/LBon [facility] HospitalCalcium [Mass/Vol]9.1 mg/dL8.6 - 10.4 mg/dLBon [facility] HospitalChloride [Moles/Vol]102 mmol/L98 - 107 mmol/LBon [facility] HospitalCO2 [Moles/Vol]29 mmol/L20 - 31 mmol/LBon [facility] HospitalCreatinine [Mass/Vol]0.7 mg/dL0.70 - 1.20 mg/dLBon [facility] HospitalEst, Glom Filt Rate- PINFBon [facility] HospitalComment on above: These results are not intended [...] therapy that affects renal tubular secretion. Glucose [Mass/Vol]112 mg/xDJjwn12 - 99 mg/dLBon [facility] Interpretation and review of laboratory resultsAbnormalBon Secours St[facility] Potassium [Moles/Vol]3.7 mmol/L3.7 - 5.3 mmol/LBon [facility] HospitalSodium [Moles/Vol]140 mmol/L136 - 145 mmol/LBon [facility] HospitalUrea nitrogen [Mass/Vol]12 mg/dL6 - 20 mg/dLBon [facility] HospitalUrea nitrogen/Creatinine [Mass ratio]17 mg/mg9 - 20Bon [facility] / [facility]vera HealthBasic Metabolic Profon 39-67-8138Bdppl gap [Moles/Vol]9 mmol/LNormal9-16[facility] HospitalComment on above:Performed By: #### ABEBE, SALENA, KEIKOI #### [facility] [address] [place] [address] Finisher Operator: Elvis Griffiths MD #### PSAS, URNMAB, LIPR #### [facility] [employer] [facility] [place] [address] Finisher Operator: Brandon Mancia MDBUN/CRE Fedsi95Vbhphv5-56Buegc [facility] Comment on above:Performed By: #### CDP, CP, URI #### [address] [place] [id number] Finisher Operator: Elvsi Griffiths MD #### PSAS, URNMAB, LIPR #### [facility] [employer] Connect [address] [place] [address] Finisher Operator: POLLY Pricealcium [Mass/Vol]9.1 mg/dLNormal8.6-10.4[facility] HospitalComment on above:Performed By: #### CDP, CP, URI #### [address] [place] [phone] ( Finisher Operator: Elvis Griffiths MD #### PSAS, URNMAB, LIPR #### [address] [address] Finisher Operator: POLLY Pricehloride [Moles/Vol]102 mmol/SKyrvng84-044VmuitOhio State East HospitalComment on above:Performed By: #### ABEBE, CP, URI #### [address] [place] [address]83 Finisher Operator: Elvis Griffiths MD #### PSAS, URNMAB, LIPR #### [place] [address] [place], [place] [address] Finisher Operator: Brandon Mancia MDCO2 [Moles/Vol]29 mmol/LNjblxv05-45GrpsqOhio State East HospitalComment on above:Performed By: #### CDP, CP, URI #### [address] [place] [address]83 Finisher Operator: Elvis Griffiths MD #### PSAS, URNMAB, LIPR #### [place] [address] [place], [place] [phone] Finisher Operator: POLLY Pricereatinine [Mass/Vol]0.7 mg/dLNormal0.70-1.20 [facility] HospitalComva medical center on above:Performed By: #### SALENA LOMAS, URI #### [address] [place] [address] Finisher Operator: Elvis Griffiths MD #### PSAWaldo, URNMAB, LIPR #### [place] [address] [place], [place] [phone] Finisher Operator: Brandon Mancia MDGFR/1.73 sq M.predicted among non-blacks MDRD (S/P/Bld) [Vol rate/Area]mL/min/{1.73_m2}Normal>60[facility] HospitalComment on above:Result Comment: These results are not intended for [...] or following therapy that affects renal tubular secretion.Performed By: #### SALENA LOMAS, URI #### [address] [place] [address] Finisher Operator: Elvis Griffiths MD #### PSAWaldo, URNMAB, LIPR #### [place] [address] [place], [place] [phone] Finisher Operator: Brandon Mancia MDGlucose [Mass/Vol]112 mg/jHXyfa06-42Gefgx[address] on above:Performed By: #### SALENA LOMAS, URI #### [address] [place] [address] Finisher Operator: Elvis Griffiths MD #### PSAS, URNMAB, LIPR #### [place] [place], [place] 6906208 Finisher Operator: LOGAN Priceotassium [Moles/Vol]3.7 mmol/LNormal3.7-5.3 [facility] HospitalComment on above:Performed By: #### SALENA LOMAS, URI #### [address] [place] [phone] Finisher Operator: Elvis Griffiths MD #### PSAWaldo, URNMAB, LIPR #### [place] [phone] Finisher Operator: ALYSHA Priceodium [Moles/Vol]140 mmol/ZNfjmfq777-287TyvlcOhio State East HospitalComment on above:Performed By: #### SALENA LOMAS, URI #### [address] [place] [address] [place] [phone] Finisher Operator: Elvis Griffiths MD #### LOUISA MARLEYAB, LIPR #### [place] [phone] Finisher Operator: Brandon Mancia MDUrea nitrogen [Mass/Vol]12 mg/dLNormal6-20[facility] HospitalComment on above:Performed By: #### SALENA LOMAS, URI #### [address] [place] [address] Finisher Operator: Elvis Griffiths MD #### DONELL URNMAB, LIPR #### [place] [phone] Finisher Operator: Brandon Mancia [facility] with Auto Differentialon 03-43-2703Auuhebvus (Bld) [#/Vol]0.03 10*3/uLBon Secours East [facility] Regional HospitalBasophils/100 WBC (Bld)0 %0 - 2 %[facility] Centery HealthEosinophils (Bld) [#/Vol]0.19 10*3/uLBon Secours Mercy HealthEosinophils/100 WBC (Bld)2 %1 - 4 %[facility] Health Erythrocyte distribution width (RBC) [Ratio]12.7 %11.8 - 14.4 %[facility] Centery HealthHematocrit (Bld) [Volume fraction]40.5 %Low40.7 - 50.3 %[facility] Centery HealthHemoglobin (Bld) [Mass/Vol]13.8 g/dL13.0 - 17.0 g/dLBon Secours East [facility] HospitalImmature granulocytes (Bld) [#/Vol]0.03 10*3/uLBon Secours [facility] Health Immature granulocytes/100 WBC (Bld)0 %0[facility] HealthInterpretation and review of laboratory resultsAbnormalBon [facility]ours [facility] Centery HealthLymphocytes/100 WBC (Bld)27 %24 - 43 %[facility] HealthLymphocytes/100 WBC (Bld)2.40 %[facility] SecWayne HospitalH (RBC) [Entitic mass]29.5 pg25.2 - 33.5 pgBon Secours UC HealthHC (RBC) [Mass/Vol]34.1 g/dL28.4 - 34.8 g/dLBon SecWayne HospitalV (RBC) [Entitic vol]86.5 fL82.6 - 102.[address] [facility] Health Monocytes/100 WBC (Bld)6 %3 - 12 %[facility] HealthMonocytes/100 WBC (Bld)0.49 %[facility] HospitalNeutrophils/100 WBC (Bld)65 %36 - 65 %[facility] HospitalNucleated RBC/100 WBC (Bld) [Ratio]0.0 %0.0 per [address] [facility] HealthPlatelet mean volume (Bld) [Entitic vol]9.3 fL8.1 - 13.5 fL [facility] Centery HealthPlatelets (Bld) [#/Vol]227 10*3/uLBon [facility]ours [facility] Centery HealthRBC (Bld) [#/Vol]4.68 10*6/uL4.21 - 5.77 m/uLBon [facility] Segmented neutrophils/100 WBC (Bld)5.84 %Bon [facility] HospitalWBC other (Bld) [#/Vol]9.0Bon [facility] HospitalBon [facility] HospitalCB with Diffon 98-88-1968Umo. Basophil0.03 k/uLNormal0.00-0.20[facility] HospitalComment on above:Performed By: #### SALENA LOMAS, URI #### [facility] [address] [place] [address] Dr. [place], [place] [phone] Finisher Operator: Elvis Griffiths MD #### JALEN MARLEY, LIPR #### [address] [phone] Finisher Operator: Raymundo Price.Imm.Granulocyte0.03 k/uLNormal0.00-0.30[facility] HospitalComment on above:Performed By: #### SALENA LOMAS, URI #### [address] [place], [place] 7121783 Finisher Operator: Elvis Griffiths MD #### JALEN MARLEY, LIPR #### [address] [phone] Finisher Operator: Raymundo Price.Neutrophil (Seg)5.84 k/uLNormal1.50-8.10 [facility] HospitalComment on above:Performed By: #### SALENA LOMAS, URI #### [address] [place] [address] Finisher Operator: Elvis Griffiths MD #### JALEN MARLEY, LIPR #### [address] [phone] Finisher Operator: Brandon Mancia MDBasophils/100 WBC (Bld)0 %Normal0-2MAshtabula County Medical CenterComment on above:Performed By: #### CDP, CP, URI #### [address] [place] [address]83 Finisher Operator: Elvis Griffiths MD #### PSAS, URNMAB, LIPR #### [address] [address] Finisher Operator: Brandon Mancia MDEosinophils (Bld) [#/Vol]0.19 10*3/uLNormal 0.00-0.44[facility] HospitalComment on above:Performed By: #### CDP, CP, URI #### [address] [place] [address]83 Finisher Operator: Elvis Griffiths MD #### PSAS, URNMAB, LIPR #### [place] [address] Finisher Operator: Brandon Mancia MDEosinophils/100 WBC (Bld)2 %Normal1-4[facility] HospitalComment on above:Performed By: #### SALENA LOMAS, URI #### [address] [place] [address]83 Finisher Operator: Elvis Griffiths MD #### PSAS, URNMAB, LIPR #### [place] [address] Finisher Operator: Brandon Mancia MDErythrocyte distribution width (RBC) [Ratio]12.7 %Aeftuy28.8-14.4[facility] HospitalComment on above:Performed By: #### ABEBE CP, URI #### [address] [place] [phone] Finisher Operator: Elvis Griffiths MD #### PSAS, URNMAB, LIPR #### [address] [address] Finisher Operator: Brandon Mancia MDHematocrit (Bld) [Volume fraction]40.5 %Low 40.7-50.3MAshtabula County Medical CenterComment on above:Performed By: #### SALENA LOMAS, URI #### [address] [place] 444[address]83 Finisher Operator: Elvis Griffiths MD #### JALEN MARLEY, LIPR #### [address] [phone] Finisher Operator: Brandon Mancia MDHemoglobin (Bld) [Mass/Vol]13.8 g/dLNormal 13.0-17.0[facility] HospitalComment on above:Performed By: #### SALENA LOMAS, URI #### [address] [place] [address]5083 Finisher Operator: Elvis Griffiths MD #### JALEN MARLEY, LIPR #### [address] 1973[address] Finisher Operator: Brandon Mancia MDImmature granulocytes/100 WBC (Bld)0 %Normal0 [facility] on above:Performed By: #### SALENA LOMAS, URI #### [address] [place] 4445083 Finisher Operator: Elvis Griffiths MD #### JALEN MARLEY, LIPR #### [address] [phone] Finisher Operator: Brandon Mancia MDLymphocytes (Bld) [#/Vol]2.40 10*3/uLNormal 1.10-3.70[facility] HospitalComva medical center on above:Performed By: #### SALENA LOMAS, URI #### [address] [place] 4445083 Finisher Operator: Elvis Griffiths MD #### PSAS, URNMAB, LIPR #### [address] [phone] Finisher Operator: Brandon Mancia MDLymphocytes/100 WBC (Bld)27 %Dfegbu77-51YtgyvOhio State East HospitalComment on above:Performed By: #### SALENA LOMAS, URI #### [address] [place] [address]5083 Finisher Operator: Elvis Griffiths MD #### PSAS, URNMAB, LIPR #### [address] [phone] Finisher Operator: DWAYNE Price (RBC) [Entitic mass]29.5 ioVicrdi76.2-33.5 [facility] HospitalComment on above:Performed By: #### SALENA LOMAS, URI #### [address] [place] [address]83 Finisher Operator: Elvis Griffiths MD #### LOUISA MARLEYAB, LIPR #### [place] [address] Finisher Operator: DWAYNE PriceC (RBC) [Mass/Vol]34.1 g/tQNjsbaj38.4-34.8 [facility] HospitalComment on above:Performed By: #### SALENA LOMAS, URI #### [address] [place] [address]83 Finisher Operator: Elvis Griffiths MD #### PSAWaldo, URNMAB, LIPR #### [place] [address] Finisher Operator: LANDON PriceCV (RBC) [Entitic vol]86.5 wMVnumpk46.6-102.9 [facility] HospitalComment on above:Performed By: #### SALENA LOMAS, URI #### [address] [place], [place] 082[address]83 Finisher Operator: Elvis Griffiths MD #### PSAS, URNMAB, LIPR #### [address] [address] Finisher Operator: Brandon Mancia MDMonocytes (Bld) [#/Vol]0.49 10*3/uLNormal 0.10-1.20[facility] HospitalComment on above:Performed By: #### CDP, CP, URI #### [address] [place], [place] [phone] Finisher Operator: Elvis Griffiths MD #### DONELL, URNMAB, LIPR #### [address] [address] Finisher Operator: LANDON Priceonocytes/100 WBC (Bld)6 %Normal3-12[facility] HospitalComment on above:Performed By: #### ABEBE, CP, URI #### [address] [place], [place] 7049783 Finisher Operator: Elvis Griffiths MD #### PSAWaldo, URNMAB, LIPR #### [address] [address] Finisher Operator: Brandon Mancia MDNeutrophil (Seg)65 %Njyfxw59-30VfshdOhio State East HospitalComment on above:Performed By: #### CDP, CP, URI #### [address] [place], [place] 0057383 Finisher Operator: Elvis Griffiths MD #### PSAWaldo, URNMAB, LIPR #### [address] [address] Finisher Operator: Brandon Mancia MDNRBC Automated0.0 per 100 WBCNormal0.0[facility] HospitalComment on above:Performed By: #### CDP, CP, URI #### [address] [place] [address] Finisher Operator: Elvis Griffiths MD #### PSAS, URNMAB, LIPR #### [address] [address] Finisher Operator: Adelaida Price mean volume (Bld) [Entitic vol]9.3 fL Normal8.1-13.5[facility] on above:Performed By: #### ABEBE, CP, URI #### [address] [place] [address] Finisher Operator: Elvis Griffiths MD #### PSAS, URNMAB, LIPR #### [address] [address] Finisher Operator: Thalia Price (Bld) [#/Vol]227 10*3/pPVwfmdv457-118 [facility] on above:Performed By: #### SALENA LOMAS, URI #### [address] [place] [address] Finisher Operator: Elvis Griffiths MD #### PSAS, URNMAB, LIPR #### [address] [address] Finisher Operator: MIN PriceBC (Bld) [#/Vol]4.68 10*6/uLNormal4.21-5.77 [facility] on above:Performed By: #### ABEBE, CP, URI #### [address] [place] [address] Finisher Operator: Elvis Griffiths MD #### PSAS, URNMAB, LIPR #### [address] [address] Finisher Operator: Brandon Mancia MDWBC (Bld) [#/Vol]9.0 10*3/uLNormal3.5-11.3[facility] HospitalComment on above:Performed By: #### CDP, CP, URI #### [facility] [address] [place] [address] Finisher Operator: Elvis Griffiths MD #### PSAS, URNMAB, LIPR #### [facility] [address] [place], [place] [phone] Finisher Operator: Derek Price XR Chest AP single viewon . No acute cardiopulmonary process. [facility] CONSOLIDATEDEXAM: 1 VIEW(S) XRAY OF THE CHEST 01/30/2025 03:07:52 PM COMPARISON: None available. CLINICAL HISTORY: cough. FINDINGS: LUNGS AND PLEURA: No focal pulmonary opacity. No pulmonary edema. No pleural effusion. No pneumothorax. HEART AND MEDIASTINUM: No acute abnormality of the cardiac and mediastinal silhouettes. BONES AND SOFT TISSUES: No acute osseous abnormality. [facility] Fito Brian MD - 01/30/2025 EXAM: 1 VIEW(S) XRAY OF THE CHEST 01/30/2025 03:07:52 PM COMPARISON: None available. CLINICAL HISTORY: cough. FINDINGS: LUNGS AND PLEURA: No focal pulmonary opacity. No pulmonary edema. No pleural effusion. No pneumothorax. HEART AND MEDIASTINUM: No acute abnormality of the cardiac and mediastinal silhouettes. BONES AND SOFT TISSUES: No acute osseous abnormality. IMPRESSION: 1. No acute cardiopulmonary process. [facility] CenterRadiology Study observation (narrative)[facility] XR Chest AP single viewOrdered By: Fito Woody on 01-30-2025 [facility] [employer] Work Phone: [phone] CHEST PORTABLEon [id number] CHEST PORTABLEEXAM: 1 VIEW(S) XRAY OF THE CHEST 01/30/2025 03:07:52 PM COMPARISON: None available. CLINICAL HISTORY: cough. FINDINGS: LUNGS AND PLEURA: No focal pulmonary opacity. No pulmonary edema. No pleural effusion. No pneumothorax. HEART AND MEDIASTINUM: No acute abnormality of the cardiac and mediastinal silhouettes. BONES AND SOFT TISSUES: No acute osseous abnormality. IMPRESSION: 1. No acute cardiopulmonary process. Interpreted by: Fito Woody MD Signed by: Fito Woody MD 01/30/25 Final resultNormalMerLawrence+Memorial HospitalCOVID-19, Rapidon [id number]-CoV-2 (COVID-19) RdRp gene ADELINA+probe Ql (Resp)Not detectedNot [facility] on above: Rapid NAAT: The specimen is NEGATIVE for SARS-CoV-2, the novel coronavirus associated with COVID-19. The ID NOW COVID-19 assay is designed [...] the sole basis for patient management decisions. Methodology: Isothermal Nucleic Acid Amplification Specimen Description.NASOPHARYNGEAL SWABVirginia Hospital CenterFlu A/B Ag Detectionon [id number] A Ag DetectionNegativeNormalNEG [facility] on above:Result Comment: for Influenza A Antigen Performed By: #### SALENA LOMAS, URI #### [facility] [address] [place] [address] Finisher Operator: Elvis Griffiths MD #### LOUISA MARLEYAB, LIPR #### [address] [address] Finisher Operator: Brandon Mancia MDFlu B Ag DetectionNegativeNormalNEGLicking Memorial Hospital on above:Result Comment: for Influenza B Antigen.Performed By: #### SALENA LOMAS, URI #### [address] [place] [address] Finisher Operator: Elvis Griffiths MD #### JALEN MARLEY, LIPR #### [facility] [employer] [facility] [place], [place] [phone] Finisher Operator: Zeenat Price influenza A/B antigenson [id number] Ag Ql (Unsp spec)NegativeNEGATIVEBon [facility] HospitalComment on above:for Influenza A AntigenFLUBV Ag Ql (Unsp spec)NegativeNEGATIVEBon [facility] HospitalComment on above:for Influenza B Antigen.Bon [facility] ULPR-GrE-4zm [id number]-CoV-2 (COVID-19) RNA ADELINA+probe Ql (Unsp spec)Not detectedNormalNOTDEBlanchard Valley Health System Blanchard Valley Hospitalment on above:Result Comment: Rapid NAAT: The specimen is NEGATIVE for SARS-CoV-2, the novel coronavirus associated with COVID-19. The ID NOW COVID-19 assay is designed [...] the sole basis for patient management decisions. Methodology: Isothermal Nucleic Acid AmplificationPerformed By: #### SALENA LOMAS, URI #### [address] [place] [address] Finisher Operator: Elvis Griffiths MD #### JALEN MARLEY, LIPR #### [facility] [employer] [facility] [place], [place] [phone] Finisher Operator: POLLY Price with Auto Differentialon [id number] (Bld) [#/Vol]0.03 10*3/uLBon Secours East [facility] Regional HospitalBasophils/100 WBC (Bld)0 %0 - 2 %Bon SecWhite HospitalEosinophils (Bld) [#/Vol]0.13 10*3/uLBon [facility]ours East [facility] HospitalEosinophils/100 WBC (Bld)1 %1 - 4 %[facility] Erythrocyte distribution width (RBC) [Ratio]12.7 %11.8 - 14.4 %[facility] Medical CenterHematocrit (Bld) [Volume fraction]45.5 %40.7 - 50.3 %[facility] Medical CenterHemoglobin (Bld) [Mass/Vol]15.2 g/dL13.0 - 17.0 g/dLBon Secours East [facility] Regional HospitalImmature granulocytes (Bld) [#/Vol]0.06 10*3/uLBon [facility] Immature granulocytes/100 WBC (Bld)1 %Gqhb8Ias [facility] Interpretation and review of laboratory resultsAbnormalBon [facility] Lymphocytes/100 WBC (Bld)17 %Low24 - 43 %[facility] Medical CenterLymphocytes/100 WBC (Bld)2.17 %[facility] HospitalH (RBC) [Entitic mass]29.0 pg25.2 - 33.5 pgBon Premier HealthHC (RBC) [Mass/Vol]33.4 g/dL28.4 - 34.8 g/dLBon SecWayne HospitalV (RBC) [Entitic vol]86.8 fL82.6 - 102.9 fLBon [facility] HospitalMonocytes/100 WBC (Bld)7 %3 - 12 %[facility] Monocytes/100 WBC (Bld)0.94 %[facility] Medical CenterNeutrophils/100 WBC (Bld)74 %High36 - 65 %Bon [facility] HospitalNucleated RBC/100 WBC (Bld) [Ratio]0.0 % 0.0 per 100 WBCBon [facility] HospitalPlatelet mean volume (Bld) [Entitic vol] 10.3 fL8.1 - 13.5 fLBon [facility] HospitalPlatelets (Bld) [#/Vol]232 10*3/uL Bon [facility] HospitalRBC (Bld) [#/Vol]5.24 10*6/uL4.21 - 5.77 m/uLBon Secours St. Francis Medical CenterSegmented neutrophils/100 WBC (Bld)9.38 %HighBon Secours St. Francis Medical CenterWBC other (Bld) [#/Vol]12.7HighCarilion Clinic with Diffon [id number]. Basophil0.03 k/uLNormal0.00-0.20[facility] HospitalComment on above:Performed By: #### B12, VD25, FT3, FT4 #### [place] [address] Finisher Operator: Brandon Mancia MD #### CDP, TSH, CP #### [address] [place] [address] Finisher Operator: Raymundo Resendiz.Imm.Granulocyte0.06 k/uLNormal0.00-0.30[facility] East HospitalComment on above:Performed By: #### B12, VD25, FT3, FT4 #### [place] [address] Finisher Operator: Brandon Mancia MD #### CDP, TSH, CP #### [address] [place] 444[address]83 Finisher Operator: Raymundo Resendiz.Neutrophil (Seg)9.38 k/uLHigh1.50-8.10[facility] East HospitalComment on above:Performed By: #### B12, VD25, FT3, FT4 #### [place] [address] Finisher Operator: Brandon Mancia MD #### CDP, TSH, CP #### [address] [place] 4445083 Finisher Operator: Elvis Griffiths MDBasophils/100 WBC (Bld)0 %Normal0-2MAshtabula County Medical CenterComment on above:Performed By: #### B12, VD25, FT3, FT4 #### [address] [address] Finisher Operator: Brandon Mancia MD #### CDP, TSH, CP #### [address] [place] 4445083 Finisher Operator: Elvis Griffiths MDEosinophils (Bld) [#/Vol]0.13 10*3/uLNormal 0.00-0.44[facility] HospitalComment on above:Performed By: #### B12, VD25, FT3, FT4 #### [place] [address] Finisher Operator: Brandon Mancia MD #### CDP, TSH, CP #### [address] [place] 4445083 Finisher Operator: Elvis Griffiths MDEosinophils/100 WBC (Bld)1 %Normal1-4[facility] East HospitalComment on above:Performed By: #### B12, VD25, FT3, FT4 #### [address] [address] Finisher Operator: Brandon Mancia MD #### CDP, TSH, CP #### [address] [place] 4445083 Finisher Operator: Elvis Griffiths MDErythrocyte distribution width (RBC) [Ratio]12.7 % Imcmts42.8-14.4[facility] HospitalComva [facility] center on above:Performed By: #### B12, VD25, FT3, FT4 #### [address] [address] Finisher Operator: Brandon Mancia MD #### CDP, TSH, CP #### [address] [place] [address] Finisher Operator: Elvis Griffiths MDHematocrit (Bld) [Volume fraction]45.5 %Normal 40.7-50.3MercYale New Haven Psychiatric HospitalComment on above:Performed By: #### B12, VD25, FT3, FT4 #### [address] [address] Finisher Operator: Brandon Mancia MD #### CDP, TSH, CP #### [address] [place] [address] Finisher Operator: Elvis Griffiths MDHemoglobin (Bld) [Mass/Vol]15.2 g/dLNormal 13.0-17.0[facility] East HospitalComment on above:Performed By: #### B12, VD25, FT3, FT4 #### [address] [address] Finisher Operator: Brandon Mancia MD #### CDP, TSH, CP #### [address] [place] [address] Finisher Operator: Elvis Griffiths MDImmature granulocytes/100 WBC (Bld)1 %Mkgm3HhvqcOhio State East HospitalComment on above:Performed By: #### B12, VD25, FT3, FT4 #### [address] [address] Finisher Operator: Brandon Mancia MD #### CDP, TSH, CP #### [address] [place] [address] Finisher Operator: Elvis Griffiths MDLymphocytes (Bld) [#/Vol]2.17 10*3/uLNormal 1.10-3.70[facility] East HospitalComment on above:Performed By: #### B12, VD25, FT3, FT4 #### [address] [address] Finisher Operator: Brandon Mancia MD #### CDP, TSH, CP #### [address] [place], [place] 5861583 Finisher Operator: Elvis Griffiths MDLymphocytes/100 WBC (Bld)17 %Obp08-05CfyfdOhio State East HospitalComment on above:Performed By: #### B12, VD25, FT3, FT4 #### [address] [address] Finisher Operator: Brandon Mancia MD #### CDP, TSH, CP #### [address] [place] 4445083 Finisher Operator: DWAYNE Resendiz (RBC) [Entitic mass]29.0 jyArrkal25.2-33.5 [facility] HospitalComment on above:Performed By: #### B12, VD25, FT3, FT4 #### [address] [address] Finisher Operator: Brandon Mancia MD #### CDP, TSH, CP #### [address] [place], [place] 3378383 Finisher Operator: DWAYNE ResendizC (RBC) [Mass/Vol]33.4 g/jWThzail00.4-34.8[facility] on above:Performed By: #### B12, VD25, FT3, FT4 #### [address] [address] Finisher Operator: Brandon Mancia MD #### CDP, TSH, CP #### [address] [place], [place] 9395083 Finisher Operator: LANDON ResendizCV (RBC) [Entitic vol]86.8 rNKlondl20.6-102.9 [facility] HospitalComment on above:Performed By: #### B12, VD25, FT3, FT4 #### [address] [address] Finisher Operator: Brandon Mancia MD #### CDP, TSH, CP #### [address] [place], [place] 4634183 Finisher Operator: Elvis Griffiths MDMonocytes (Bld) [#/Vol]0.94 10*3/uLNormal0.10-1.20 [facility] HospitalComment on above:Performed By: #### B12, VD25, FT3, FT4 #### [address] [address] Finisher Operator: Brandon Mancia MD #### CDP, TSH, CP #### [address] [place] [address]5083 Finisher Operator: Elvis Griffiths MDMonocytes/100 WBC (Bld)7 %Normal3-12[facility] East HospitalComment on above:Performed By: #### B12, VD25, FT3, FT4 #### [address] [address] Finisher Operator: Brandon Mancia MD #### CDP, TSH, CP #### [address] [place] [address]5083 Finisher Operator: Elvis Griffiths MDNeutrophil (Seg)74 %Kuov13-64JtrgpOhio State East Hospital Comment on above:Performed By: #### B12, VD25, FT3, FT4 #### [address] [address] Finisher Operator: Brandon Mancia MD #### CDP, TSH, CP #### [address] [place] 4445083 Finisher Operator: Elvis Griffiths MDNRBC Automated0.0 per 100 WBCNormal0.0[facility] HospitalComva medical center on above:Performed By: #### B12, VD25, FT3, FT4 #### [address] [address] Finisher Operator: Brandon Mancia MD #### CDP, TSH, CP #### [address] [place] [address] Finisher Operator: Adelaida Resendiz mean volume (Bld) [Entitic vol]10.3 fL Normal8.1-13.5[facility] HospitalComva medical center on above:Performed By: #### B12, VD25, FT3, FT4 #### [address] [address] Finisher Operator: Brandon Mancia MD #### CDP, TSH, CP #### [address] [place] [address] Finisher Operator: Thalia Resendiz (Bld) [#/Vol]232 10*3/mNXvpauq856-376 [facility] on above:Performed By: #### B12, VD25, FT3, FT4 #### [address] [address] Finisher Operator: Brandon Mancia MD #### CDP, TSH, CP #### [address] [place] 4445083 Finisher Operator: NORBERTO Resendiz (Bld) [#/Vol]5.24 10*6/uLNormal4.21-5.77[facility] HospitalComva medical center on above:Performed By: #### B12, VD25, FT3, FT4 #### [address] [address] Finisher Operator: Brandon Mancia MD #### CDP, TSH, CP #### [address] [place], [place] 3675683 Finisher Operator: Elvis Griffiths MDST. PETER'S HEALTH PARTNERS (d) [#/Vol]12.7 10*3/uLHigh3.5-11.3MAshtabula County Medical CenterComment on above:Performed By: #### B12, VD25, FT3, FT4 #### [address] [address] Finisher Operator: Brandon Mancia MD #### CDP, TSH, CP #### [address] [place], [place] 0017283 Finisher Operator: POLLY Resendizcedar city hospital Metabolic Profon 36-41-8760Uexrtzn [Mass/Vol] 4.0 g/dLNormal3.5-5.2MAshtabula County Medical CenterComment on above:Performed By: #### B12, VD25, FT3, FT4 #### [facility] [employer] [address] [place] [address] Finisher Operator: Brandon Mancia MD #### CDP, TSH, CP #### [address] [place], [place] 5622183 Finisher Operator: Elvis Griffiths MDAlbumin/Glob Ratio1.9Rdkdex3.0-2.5[facility] East HospitalComment on above:Performed By: #### B12, VD25, FT3, FT4 #### [facility] [employer] [address] [place] [address] Finisher Operator: Brandon Mancia MD #### CDP, TSH, CP #### [address] [place] [address] Finisher Operator: Julius Resendizkaline Xcsr134 U/RNxhqdw75-490ZyvusOhio State East HospitalComment on above:Performed By: #### B12, VD25, FT3, FT4 #### [address] [address] Finisher Operator: Brandon Mancia MD #### CDP, TSH, CP #### [address] [place] [address] Finisher Operator: Elvis Griffiths MDALT [Catalytic activity/Vol]18 U/BTysulk53-89EphavOhio State East HospitalComment on above:Performed By: #### B12, VD25, FT3, FT4 #### [address] [address] Finisher Operator: Brandon Mancia MD #### CDP, TSH, CP #### [address] [place] 4445083 Finisher Operator: Elvis Griffiths MDAnion gap [Moles/Vol]11 mmol/LNormal9-16[facility] East HospitalComment on above:Performed By: #### B12, VD25, FT3, FT4 #### [address] [address] Finisher Operator: Brandon Mancia MD #### CDP, TSH, CP #### [address] [place] [address] Finisher Operator: Elvis Griffiths MDAST [Catalytic activity/Vol]18 U/UJrjsdp48-77TzkggOhio State East HospitalComment on above:Performed By: #### B12, VD25, FT3, FT4 #### [address] [address] Finisher Operator: Brandon Mancia MD #### CDP, TSH, CP #### [address] [place] [address] Finisher Operator: Elvis Griffiths MDBilirubin [Mass/Vol]0.5 mg/dLNormal0.00-1.20[facility] East HospitalComment on above:Performed By: #### B12, VD25, FT3, FT4 #### [address] [address] Finisher Operator: Brandon Mancia MD #### CDP, TSH, CP #### [address] [place], [place] 0058283 Finisher Operator: Elvis Griffiths MDBUN/CRE Obqwm54Mafdbh7-31Xtxdi [facility] Comment on above:Performed By: #### B12, VD25, FT3, FT4 #### [address] [address] Finisher Operator: Brandon Mancia MD #### CDP, TSH, CP #### [address] [place], [place] 7604083 Finisher Operator: POLLY Resendizalcium [Mass/Vol]8.8 mg/dLNormal8.6-10.4[facility] East HospitalComment on above:Performed By: #### B12, VD25, FT3, FT4 #### [address] [address] Finisher Operator: Brandon Mancia MD #### CDP, TSH, CP #### [address] [place], [place] 1772583 Finisher Operator: POLLY Resendizhloride [Moles/Vol]101 mmol/UDuafpq19-583OrwdtOhio State East HospitalComment on above:Performed By: #### B12, VD25, FT3, FT4 #### [address] [address] Finisher Operator: Brandon Mancia MD #### CDP, TSH, CP #### [address] [place], [place] 7575083 Finisher Operator: Elvis Griffiths MDCO2 [Moles/Vol]27 mmol/GLgbnqg12-23KtqfbOhio State East HospitalComment on above:Performed By: #### B12, VD25, FT3, FT4 #### [place] [address] [place] [address] Finisher Operator: Brandon Mancia MD #### CDP, TSH, CP #### [address] [place] [address] Finisher Operator: POLLY Resendizreatinine [Mass/Vol]0.8 mg/dLNormal0.70-1.20[facility] HospitalComment on above:Performed By: #### B12, VD25, FT3, FT4 #### [place] [address] [place] [address] Finisher Operator: Brandon Mancia MD #### CDP, TSH, CP #### [address] [place] [address] Finisher Operator: Elvis Griffiths MDGFR/1.73 sq M.predicted among non-blacks MDRD (S/P/Bld) [Vol rate/Area]mL/min/{1.73_m2}Normal>60[facility] East HospitalComment on above:Result Comment: These results are not intended for [...] or following therapy that affects renal tubular secretion.Performed By: #### B12, VD25, FT3, FT4 #### [place] [address] [place], [place] 5816108 Finisher Operator: Brandon Mancia MD #### CDP, TSH, CP #### [address] [place] [address] Finisher Operator: Elvis Griffiths MDGlucose [Mass/Vol]155 mg/wQNgpf16-38Kuohi Gould HospitalComment on above:Performed By: #### B12, VD25, FT3, FT4 #### [address] [address] Finisher Operator: Brandon Mancia MD #### CDP, TSH, CP #### [address] [place] [address]5083 Finisher Operator: LOGAN Resendizotassium [Moles/Vol]3.5 mmol/LLow3.7-5.3[facility] HospitalComment on above:Performed By: #### B12, VD25, FT3, FT4 #### [address] [address] Finisher Operator: Brandon Mancia MD #### CDP, TSH, CP #### [address] [place] [address]5083 Finisher Operator: LOGAN Resendizrotein [Mass/Vol]6.7 g/dLNormal6.6-8.7[facility] East HospitalComment on above:Performed By: #### B12, VD25, FT3, FT4 #### [address] [address] Finisher Operator: Brandon Mancia MD #### CDP, TSH, CP #### [address] [place] [address]5083 Finisher Operator: ALYSHA Resendizodium [Moles/Vol]139 mmol/LLgypsp514-347NjbpkOhio State East HospitalComment on above:Performed By: #### B12, VD25, FT3, FT4 #### [address] [address] Finisher Operator: Brandon Mancia MD #### CDP, TSH, CP #### [address] [place], [place] 5010383 Finisher Operator: Elvis Griffiths MDUrea nitrogen [Mass/Vol]11 mg/dLNormal6-20[facility] East HospitalComment on above:Performed By: #### B12, VD25, FT3, FT4 #### [facility] [employer] [facility] [address] [place] [address] Finisher Operator: Brandon Mancia MD #### CDP, TSH, CP #### [facility] [address] [place] [address] Finisher Operator: Elvis Griffiths [facility] OKEMAHomprehensive Metabolic Panelon 51-67-5849Bmcrjgf [Mass/Vol]4.0 g/dL3.5 - 5.2 g/dLBon [facility] HospitalAlbumin/Globulin [Mass ratio]1.5 {ratio}1.0 - 2.5Bon SecVA [facility] HealthALP [Catalytic activity/Vol] 102 U/L40 - 129 U/LBon SecVA [facility] HealthALT [Catalytic activity/Vol]18 U/L10 - 50 U/LBon SecWhite HospitalAnion gap [Moles/Vol]11 mmol/L9 - 16 mmol/LBon SecVA [facility] HealthAST [Catalytic activity/Vol]18 U/L10 - 50 U/LBon [facility] HealthBilirubin [Mass/Vol]0.5 mg/dL0.00 - 1.20 mg/dLBon [facility] HospitalCalcium [Mass/Vol]8.8 mg/dL8.6 - 10.4 mg/dLBon [facility] Chloride [Moles/Vol]101 mmol/L98 - 107 mmol/LBon [facility]annerours [facility] [place] [facility] HospitalCO2 [Moles/Vol]27 mmol/L20 - 31 mmol/LBon [facility] HospitalCreatinine [Mass/Vol] 0.8 mg/dL0.70 - 1.20 mg/dLBon [facility] HealthEst, Glom Filt Rate- PINFBon [facility] HospitalComment on above: These results are not intended [...] therapy that affects renal tubular secretion. Glucose [Mass/Vol]155 mg/yBVofl27 - 99 mg/dLBon [facility] Interpretation and review of laboratory resultsAbnormalBon [facility] St[facility] Potassium [Moles/Vol]3.5 mmol/LLow3.7 - 5.3 mmol/LBon [facility] Protein [Mass/Vol]6.7 g/dL6.6 - 8.7 g/dLBon [facility] HospitalSodium [Moles/Vol]139 mmol/L136 - 145 mmol/LBon [facility] HospitalUrea nitrogen [Mass/Vol]11 mg/dL6 - 20 mg/dLBon [facility] HospitalUrea nitrogen/Creatinine [Mass ratio]14 mg/mg9 - 20Bon [facility] HospitalNo Panel Informationon 01-05-3730Cjs [facility]vera HealthT3, Free 01-20-2025 Free T3 [Mass/Vol]3.08 pg/mL2.00 - 4.40 pg/mLBon Secours St. Francis Medical CenterFree T3 [Mass/Vol]3.08 pg/mLNormal2.00-4.40[facility] East HospitalComment on above: Performed By: #### ABEBE, CP, URI #### [facility] [address] [place] [address] Finisher Operator: Elvis Griffiths MD #### PSAS, URNMAB, LIPR #### [facility] [address] [place] [address] Finisher Operator: Brandon Mancia MDT4, [facility] 02-03-9169Mrwu T4 [Mass/Vol]1.2 ng/dL 0.92 - 1.68 ng/dLBon [facility] HospitalTSHon 97-80-4126OLI Qn1.01 m[IU]/LBon [facility] HospitalThyroid Stim. Horm.on 65-76-4310Erfgurc Stim. Horm.1.01 uIU/mLNormal0.27-4.20[facility] East HospitalComment on above:Performed By: #### SALENA LOMAS, URI #### [address] [place], [place] 4032283 Finisher Operator: Elvis Griffiths MD #### JALEN MARLEY, LIPR #### [place] [address] [place] [address] Finisher Operator: Brandon Mancia MDThyroxine, Freeon 13-78-5324Pkqbvtbjj, Free1.2 ng/dLNormal0.92-1.68[facility] HospitalComva medical center on above:Performed By: #### SALENA LOMAS, URI #### [address] [place] [address] Finisher Operator: Elvis Griffiths MD #### JALEN MARLEY, LIPR #### [address] [address] Finisher Operator: Brandon Mancia MDVitamin B12on 93-92-0751Scqnqjryv (Vitamin B12) [Mass/Vol]367 pg/mL232 - 1245 pg/mLBon Secours St. Francis Medical CenterCobalamin (Vitamin B12) [Mass/Vol]367 pg/iJTrjdxk017-2277Wkmhc Tiffin HospitalComva medical center on above: Performed By: #### SALENA LOMAS, URI #### [address] [place], [place] 5143483 Finisher Operator: Elvis Griffiths MD #### JALEN MARLEY, LIPR #### [place] [place] [address] Finisher Operator: Brandon Mancia MDVitamin D 25 Hydroxyon - hydroxyvitamin D3 [Mass/Vol]11.6 ng/mLLow30.0 - 100.0 ng/mLBon Secours St. Francis Medical CenterComva medical center on above: Reference Range: Vitamin D status Range Deficiency <20 ng/mL Mild Deficiency 20-30 ng/mL Sufficiency 30-100 ng/mL Toxicity >100 ng/mL Interpretation and review of laboratory resultsAbnoAugusta Health Vitamin D 25 OHon 15-17-4032Wrwbfwv D 25 OH11.6 ng/mLLow30.0-100.0[facility] East HospitalComment on above:Result Comment: Reference Range: Vitamin D status Range Deficiency <20 ng/mL Mild Deficiency 20-30 ng/mL Sufficiency 30-100 ng/mL Toxicity >100 ng/mLPerformed By: #### SALENA LOMAS, URI #### [address] [place], [place] 4224783 Finisher Operator: Elvis Griffiths MD #### KEIKO MARLEYNMAB, LIPR #### [address] [address] Finisher Operator: Patsy Price 21-75-8161YSO [Catalytic activity/Vol]18 U/L10 - 50 U/LBon [facility] HospitalALT [Catalytic activity/Vol]18 U/LNormal 10-50[facility] East HospitalComment on above:Performed By: #### SALENA LOMAS, URI #### [address] [place], [place] 0170883 Finisher Operator: Elvis Griffiths MD #### DONELL, KEIKONMAB, LIPR #### [address] [address] Finisher Operator: Ranjith Price 57-32-5789ZLK [Catalytic activity/Vol]20 U/L10 - 50 U/LBon [facility] HospitalAST [Catalytic activity/Vol]20 U/LNormal 10-50[facility] HospitalComment on above:Performed By: #### SALENA LOMAS, URI #### [address] [place] [address] Finisher Operator: Elvis Griffiths MD #### DONELL, KEIKONMAB, LIPR #### [address] [address] Finisher Operator: Brandon Mancia [facility] Anneliese 65-12-1448IFM [Catalytic activity/Vol] 18 U/L10 - 50 U/LNOMS HealthcareCCF Jose Juan 53-07-4911GED [Catalytic activity/Vol] 20 U/L10 - 50 U/LNOMS [facility] HospitalLipid Panelon 93-28-3922Lxrezzbdzzj [Mass/Vol] 103 mg/dL0 - 199 mg/dLBon BannerPOI [facility]ana HospitalComment on above: Cholesterol Guidelines: <200 Desirable 200-240 Borderline >240 Undesirable Cholesterol in HDL [Mass/Vol]28 mg/dLLow40 - PINF mg/dLBon [facility] CenterBNY [employer] Comment on above: HDL Guidelines: <40 Undesirable 40-59 Borderline >59 Desirable Cholesterol in LDL [Mass/Vol]57 mg/dL0 - 100 mg/dLBon [facility] [employer] Comment on above: LDL Guidelines: <100 Desirable 100-129 Near to/above Desirable 130-159 Borderline >159 Undesirable Direct (measured) LDL and calculated LDL are not interchangeable tests. Cholesterol in VLDL [Mass/Vol]18 mg/dL1 - 30 mg/dLBon [facility] [employer] Cholesterol.total/Cholesterol in HDL [Mass ratio]3.7 {ratio}NINF - 5.0Bon [facility] OptionsCity SoftwareInterpretation and review of laboratory resultsAbnormalBon [facility] CenterBNY MellonTriglyceride [Mass/Vol]89 mg/dLNINF - 150 mg/dLBon [facility] HospitalComment on above: Triglyceride Guidelines: <150 Desirable 150-199 Borderline 200-499 High >499 Very high Based on AHA Guidelines for fasting triglyceride, December 2011. [facility] soup.meRiverside Doctors' Hospital WilliamsburgLipid Profileon 53-91-3542Epfxxfvjltg [Mass/Vol]103 mg/dLNormal0-199Ohio State East HospitalComment on above:Result Comment: Cholesterol Guidelines: <200 Desirable 200-240 Borderline >240 UndesirablePerformed By: #### CDP, CP, URI #### [facility] [address] [place] [address] Finisher Operator: Elvis Griffiths MD #### PSAS, URNMAB, LIPR #### [facility] [address] [place] [address] Finisher Operator: Brandon Mancia MDCholesterol in HDL [Mass/Vol]28 mg/dLLow>40Ohio State East HospitalComment on above:Result Comment: HDL Guidelines: <40 Undesirable 40-59 Borderline >59 DesirablePerformed By: #### SALENA LOMAS, URI #### [address] [place], [place] 9860583 Finisher Operator: Elvis Griffiths MD #### LOUISA MARLEYAB, LIPR #### [facility] [place], [place] 3288[address] Finisher Operator: Brandon Mancia MDCholesterol in LDL [Mass/Vol]57 mg/dLNormal0-100 [facility] HospitalComva medical center on above:Result Comment: LDL Guidelines: <100 Desirable 100-129 Near to/above Desirable 130-159 Borderline >159 Undesirable Direct (measured) LDL and calculated LDL are not interchangeable tests.Performed By: #### SALENA LOMAS, URI #### [address] [place], [place] 1491183 Finisher Operator: Elvis Griffiths MD #### LOUISA MARLEYAB, LIPR #### [employer] [address] [place] [address] Finisher Operator: Brandon Mancia MDCholesterol in VLDL [Mass/Vol]18 mg/dLNormal1-30 [facility] on above:Performed By: #### SALENA LOMAS, URI #### [address] [place], [place] 3527983 Finisher Operator: Elvis Griffiths MD #### LOUISA MARLEYAB, LIPR #### [facility] [employer] [address] [place] [phone] Finisher Operator: Stephanie Pricestreji.total/Cholesterol in HDL [Mass ratio]3.7 {ratio}Normal<5.0[facility] on above:Performed By: #### SALENA LOMAS, URI #### [address] [place], [place] 587[address]83 Finisher Operator: Elvis Griffiths MD #### DONELL, KEIKONMAB, LIPR #### [facility] [employer] [address] [place], [place] 6601[address] Finisher Operator: Brandon Mancia MDTriglyceride [Mass/Vol]89 mg/dLNormal<150Ohio State East HospitalComment on above:Result Comment: Triglyceride Guidelines: <150 Desirable 150-199 Borderline 200-499 High >499 Very high Based on AHA Guidelines for fasting triglyceride, December 2011.Performed By: #### SALENA LOMAS, URI #### [address] [place], [place] 974[address]83 Finisher Operator: Elvis Griffiths MD #### JALEN MARLEY, LIPR #### [facility] [address] [place], [place] 6101808 Finisher Operator: Brandon Mancia MDNo Panel Informationon 95-27-5763Exvhuwll Ordering Provider: JENN NOVACovenant Health PlainviewGlucose,Whole Bloodon 57-25-2246Ghsukbg [Mass/Vol]122 mg/zDWeaw59-20Salao [facility] BiloxiMHPT GLUCOSE,WHOLE BLOODon 90-53-9115Xaeodpq [Mass/Vol]122 mg/dL High65 - 99 mg/dLAMERICAN FORK HOSPITAL HealthcareInterpretation and review of laboratory results AbnormalNOIA HealthcareOriginal Ordering Provider: MORGAN COLEMANLOGAN REGION[facility] HealthcareSurgical Pathology Reporton [id number] Pathology Report (NOTE) Path Number: [id number] -- Diagnosis -- A. Distal sigmoid colon, [...] 0.2 cm in aggregate. Entirely 1 cs. B. HAIR BRENNER, SPLENIC FLEXURE POLYP Received in formalin are three soft-chawla tissue fragments from 0.3 to 0.5 cm and are 1.1 x 0.3 x 0.2 cm in aggregate. Entirely 1 cs. C. HAIR BRENNER, RECTAL POLYP Received in formalin are two soft-chawla tissue fragments, 0.1 and 0.4 cm and are 0.5 x 0.3 x f0.3 cm in aggregate. Entirely 1 cs. jj vicente Beaver/mj:10/28/2024 Microscopic Description A-C. Microscopic examination performed. Processing Lab: [place] [id number] Interpretation Performed at [address] [phone] SURGICAL PATHOLOGY CONSULTATION Patient Name: HAIR BRENNER [facility] Rec: [id number] [facility] ANATOMIC PATHOLOGY [address] [place] [address]. [place], [place] [id number] [place] [address] LeadOrdered By: Mikayla Chavez on 63-54-8074Govzry Blxp69BTSBtu [employer] Phone: P Bddu20wdtaoayMseWisdomTree Phone: P-R [id number] [employer] Phone: Q-T [id number] [employer] Phone: QRS [id number] [employer] Phone: QTc Calculation ([place])444 [employer] Phone: R Yoxy17hoqfhmfNxiCumberland Hospital [employer] Work Phone: T Wdnv76lxrpltgDytCumberland Hospital [employer] Work Phone: Ventricular Kymj44RQDPic [facility] CenterBNY [employer] Work Phone: Bon [facility] [employer] Work Phone: EKG 12 Leadon 59-20-4615Hfeqeb sinus rhythm Normal ECG No previous ECGs available Confirmed by Mikayla Chavez ([id number]) on 10/05/2024 1:08:40 [facility] Mikayla Chavez MD - 10/05/2024 Normal sinus rhythm Normal ECG No previous ECGs available Confirmed by Mikayla Chavez ([id number]) on 10/05/2024 1:08:[address] [facility] Medical CenterHbA1c (Bld) [Mass fraction]on 64-91-0783Fthpfyweqcrzdb and review of laboratory resultsAbnoBon Secours St. [facility] HealthcareLaboratory - Hematology and Cell countson 61-31-1775JpO1u (Bld) [Mass fraction]5.9 %NOMS HealthcareAlbumin/Creat Ratio, Urineon [id number],conc.[place] U<12Normal 0-20[facility] Memorial HospitalComment on above:Performed By: #### CDP, CP, URI #### [facility] [address] [place] [address] [place] [address] Finisher Operator: Elvis Griffiths MD #### PSAS, URNMAB, LIPR #### [facility] [address] [place] [address] Finisher Operator: Brandon Mancia MDAlbumin/Creat RatioCan not be calculatedNormal 0.0-17.0MerLawrence+Memorial HospitalComment on above:Performed By: #### CDP, CP, URI #### [facility] [address] [place] [address] [place] [address] Finisher Operator: Elvis Griffiths MD #### PSAS, URNMAB, LIPR #### [facility], Cancer CenterStirplate.[facility] [address] [place], [place] [address] Finisher Operator: Brandon Mancia MDCreatinine Conc.210.0 mg/dKSdiaaf21.0-259.0[facility] HospitalComva medical center on above:Result Comment: Reference range defined for 1st morning urinePerformed By: #### CDP, CP, URI #### [facility] [address] [place] [address] [place] [address] Finisher Operator: Elvis Griffiths MD #### PSAS, URNMAB, LIPR #### [facility] [employer] [facility] [address] [place], [place] [phone] Finisher Operator: Brandon Mancia MDAlbumin/Creatinine Ratio, Urineon 09-01-2024 Albumin DL <= 20 mg/L (U) [Mass/Vol]mg/L0 - 20 mg/LBon [facility] Albumin/Creatinine DL <= 20 mg/L (U) [Ratio]Can not be calculatedBon [facility] HospitalCreatinine (U) [Mass/Vol]210 mg/dL39.0 - 259.0 mg/dLBon [facility] HospitalComment on above:Reference range defined for 1st morning urineBon [facility] HospitalCBC with Auto Differentialon [id number] (Bld) [#/Vol]0.04 10*3/uLBon [facility] HospitalBasophils/100 WBC (Bld)1 %0 - 2 %[facility] Medical CenterEosinophils (Bld) [#/Vol]0.14 10*3/uLBon [facility] HospitalEosinophils/100 WBC (Bld)2 %1 - 4 %[facility] Medical CenterErythrocyte distribution width (RBC) [Ratio]13.1 %11.8 - 14.4 %[facility] Hematocrit (Bld) [Volume fraction]43.6 %40.7 - 50.3 %[facility] Hemoglobin (Bld) [Mass/Vol]14.8 g/dL13.0 - 17.0 g/dLBon SecWhite Hospital Immature granulocytes (Bld) [#/Vol][facility] HospitalImmature granulocytes/100 WBC (Bld)0 %0[facility] HospitalLymphocytes/100 WBC (Bld) 26 %24 - 43 %[facility] HospitalLymphocytes/100 WBC (Bld)2.14 %Bon [facility] HealthH (RBC) [Entitic mass]28.9 pg25.2 - 33.5 pgBon SecWayne HospitalHC (RBC) [Mass/Vol]33.9 g/dL28.4 - 34.8 g/dLBon SecWayne HospitalV (RBC) [Entitic vol]85.2 fL82.6 - 102.9 fLBon SecWhite HospitalMonocytes/100 WBC (Bld)7 %3 - 12 %Bon SecWhite HospitalMonocytes/100 WBC (Bld)0.6 %Bon [facility] HospitalNeutrophils/100 WBC (Bld)64 %36 - 65 %Bon [facility] HospitalNucleated RBC/100 WBC (Bld) [Ratio]0 %0.0 per 100 WBCBon SecWhite HospitalPlatelet mean volume (Bld) [Entitic vol]10 fL8.1 - 13.5 fLBon SecVA Medical Center of New Orleans HealthPlatelets (Bld) [#/Vol]212 10*3/uLBon SecWhite HospitalRBC (Bld) [#/Vol]5.12 10*6/uL4.21 - 5.77 m/uLBon [facility] HospitalSegmented neutrophils/100 WBC (Bld)5.24 %[facility] Medical CenterWBC other (Bld) [#/Vol] 8.2[facility] CenterCBC with Diffon 09-01-2024 Abs. Basophil0.04 k/uLNormal0.00-0.20[facility] HospitalComment on above: Performed By: #### ABEBE, SALENA, KEIKOI #### [facility] [address] [place] [address] Finisher Operator: Elvis Griffiths MD #### PSAS, URNMAB, LIPR #### [place] [address] Finisher Operator: Raymundo Price.Imm.Granulocyte<0.67Ltxlla7.00-0.30[facility] East HospitalComment on above:Performed By: #### ABEBE CP, URI #### [address] [place] [address] Finisher Operator: Elvis Griffiths MD #### PSAS, URNMAB, LIPR #### [place] [address] Finisher Operator: Raymundo Price.Neutrophil (Seg)5.24 k/uLNormal1.50-8.10 [facility] HospitalComment on above:Performed By: #### SALENA LOMAS, URI #### [address] [place] [address] Finisher Operator: Elvis Griffiths MD #### LOUISA MARLEYAB, LIPR #### [place] [address] Finisher Operator: Brandon Mancia MDBasophils/100 WBC (Bld)1 %Normal0-2MAshtabula County Medical CenterComment on above:Performed By: #### SALENA LOMAS, URI #### [address] [place] [address] Finisher Operator: Elvis Griffiths MD #### PSAWaldo, KEIKONMAB, LIPR #### [place] [address] Finisher Operator: Brandon Mancia MDEosinophils (Bld) [#/Vol]0.14 10*3/uLNormal 0.00-0.44[facility] HospitalComment on above:Performed By: #### ABEBE, CP, URI #### [address] [place], [place] 3803683 Finisher Operator: Elvis Griffiths MD #### PSAWaldo, URNMAB, LIPR #### [address] [address] Finisher Operator: Brandon Mancia MDEosinophils/100 WBC (Bld)2 %Normal1-4[facility] HospitalComment on above:Performed By: #### ABEBE CP, URI #### [address] [place] [address]83 Finisher Operator: Elvis Griffiths MD #### DONELL URRACHEALAB, LIPR #### [address] [phone] Finisher Operator: Brandon Mancia MDErythrocyte distribution width (RBC) [Ratio]13.1 %Pkpcfl02.8-14.4[facility] HospitalComment on above:Performed By: #### SALENA LOMAS, URI #### [address] [place] [address]83 Finisher Operator: Elvis Griffiths MD #### LOUISA MARLEYAB, LIPR #### [address] [phone] Finisher Operator: Brandon Mancia MDHematocrit (Bld) [Volume fraction]43.6 %Normal 40.7-50.3Mberger hospitaly Manchester Memorial HospitalComment on above:Performed By: #### ABEBE CP, URI #### [address] [place], [place] 9504783 Finisher Operator: Elvis Griffiths MD #### PSAWaldo, URNMAB, LIPR #### [address] [phone] Finisher Operator: Brandon Mancia MDHemoglobin (Bld) [Mass/Vol]14.8 g/dLNormal 13.0-17.0Mer[facility] Gould HospitalComment on above:Performed By: #### CDP, CP, URI #### [address] [place] [address] Finisher Operator: Elvis Griffiths MD #### PSAS, URNMAB, LIPR #### [address] [address] Finisher Operator: Brandon Mancia MDImmature granulocytes/100 WBC (Bld)0 %Normal0 [facility] HospitalComment on above:Performed By: #### ABEBE, CP, URI #### [address] [place] [address] Finisher Operator: Elvis Griffiths MD #### PSAS, URNMAB, LIPR #### [address] [address] Finisher Operator: Brandon Mancia MDLymphocytes (Bld) [#/Vol]2.14 10*3/uLNormal 1.10-3.70[facility] HospitalComva medical center on above:Performed By: #### ABEBE, CP, URI #### [address] [place], [place] 4595183 Finisher Operator: Elvis Griffiths MD #### PSAS, URNMAB, LIPR #### [address] [address] Finisher Operator: Brandon Mancia MDLymphocytes/100 WBC (Bld)26 %Agyage96-48ZanpvOhio State East HospitalComva medical center on above:Performed By: #### ABEBE, CP, URI #### [address] [place], [place] 4415683 Finisher Operator: Elvis Griffiths MD #### PSAS, URNMAB, LIPR #### [address] [phone] Finisher Operator: LANDON PriceCH (RBC) [Entitic mass]28.9 mvMzmumr42.2-33.5 [facility] HospitalComment on above:Performed By: #### SALENA LOMAS, URI #### [address] [place], [place] 6302483 Finisher Operator: Elvis Griffiths MD #### PSAS, URNMAB, LIPR #### [address] [phone] Finisher Operator: LANDON PriceCHC (RBC) [Mass/Vol]33.9 g/tEQovsdw57.4-34.8 [facility] HospitalComment on above:Performed By: #### SALENA LOMAS, URI #### [address] [place] [address]83 Finisher Operator: Elvis Griffiths MD #### DONELL, LOUISAAB, LIPR #### [address] [address] Finisher Operator: LANDON PriceCV (RBC) [Entitic vol]85.2 iHWifeuu44.6-102.9 [facility] HospitalComment on above:Performed By: #### SALENA LOMAS, URI #### [address] [place] [address]5083 Finisher Operator: Elvis Griffiths MD #### PSAS, URNMAB, LIPR #### [address] [address] Finisher Operator: LANDON Priceonocytes (Bld) [#/Vol]0.60 10*3/uLNormal 0.10-1.20[facility] HospitalComment on above:Performed By: #### ABEBE, CP, URI #### [address] [place] [address]5083 Finisher Operator: Elvis Griffiths MD #### PSAS, URNMAB, LIPR #### [address] [phone] Finisher Operator: LANDON Priceonocytes/100 WBC (Bld)7 %Normal3-12[facility] HospitalComment on above:Performed By: #### CDP, CP, URI #### [address] [place] [address]83 Finisher Operator: Elvis Griffiths MD #### PSAS, URNMAB, LIPR #### [place] [phone] Finisher Operator: Brandon Mancia MDNeutrophil (Seg)64 %Rfodeq07-03CwycwOhio State East HospitalComment on above:Performed By: #### SALENA LOMAS, URI #### [address] [place] [phone] Finisher Operator: Elvis Griffiths MD #### PSAS, URNMAB, LIPR #### [place] [phone] Finisher Operator: Brandon Mancia MDNRBC Automated0.0 per 100 WBCNormal0.0[facility] HospitalComment on above:Performed By: #### ABEBE, CP, URI #### [address] [place] 4445083 Finisher Operator: Elvis Griffiths MD #### PSAS, URNMAB, LIPR #### [place] [phone] Finisher Operator: LOGAN Pricelatelet mean volume (Bld) [Entitic vol]10.0 fL Normal8.1-13.5[facility] HospitalComment on above:Performed By: #### CDP, CP, URI #### [address] [place], [place] 2723383 Finisher Operator: Elvis Griffiths MD #### PSAS, URNMAB, LIPR #### [place] [address] [place] [address] Finisher Operator: Thalia Price ([facility]) [#/Vol]212 10*3/dGUwnopt940-117 [facility] HospitalComment on above:Performed By: #### CDP, CP, URI #### [address] [place] [address] Finisher Operator: Elvis Griffiths MD #### PSAS, URNMAB, LIPR #### [address] [address] Finisher Operator: MIN Price ([facility]) [#/Vol]5.12 10*6/uLNormal4.21-5.77 [facility] HospitalComment on above:Performed By: #### CDP, CP, URI #### [address] [place] [address] Finisher Operator: Elvis Griffiths MD #### PSAS, URNMAB, LIPR #### [address] [address] Finisher Operator: Brandon Mancia MDST. PETER'S HEALTH PARTNERS ([facility]) [#/Vol]8.2 10*3/uLNormal3.5-11.3MAshtabula County Medical CenterComment on above:Performed By: #### CDP, CP, URI #### [address] [place] [address] Finisher Operator: Elvis Griffiths MD #### PSAS, URNMAB, LIPR #### [address] [address] Finisher Operator: POLLY Pricecedar city hospital Metabolic Profon [id number] [Mass/Vol]4.3 g/dLNormal3.5-5.2MAshtabula County Medical CenterComment on above:Performed By: #### SALENA LOMAS, URI #### [address] [place] [address] ( Finisher Operator: Elvis Griffiths MD #### PSAS, URNMAB, LIPR #### [address] [phone] Finisher Operator: Brandon Mancia MDAlbumin/Glob Ratio1.8Weanzk4.0-2.5[facility] HospitalComment on above:Performed By: #### SALENA LOMAS, URI #### [address] [place] [address]5083 Finisher Operator: Elvis Griffiths MD #### LOUISA MARLEYAB, LIPR #### [address] [phone] Finisher Operator: Julius Pricekaline Phos87 U/YJwpble06-846YgrnzOhio State East HospitalComment on above:Performed By: #### SALENA LOMAS, URI #### [address] [place] 4445083 Finisher Operator: Elvis Griffiths MD #### LOUISA MARLEYAB, LIPR #### [address] [address] Finisher Operator: Bradnon Mancia MDALT [Catalytic activity/Vol]21 U/YJmkykt28-30 [facility] HospitalComva medical center on above:Performed By: #### SALENA LOMAS, URI #### [address] [place], [place] 7735783 Finisher Operator: Elvis Griffiths MD #### PSAWaldo, URNMAB, LIPR #### [address] [phone] Finisher Operator: Peyton Price gap [Moles/Vol]14 mmol/LNormal9-16[facility] HospitalComment on above:Performed By: #### SALENA LOMAS, URI #### [facility] [address] [place] [address] Dr. [place], [place] 0057183 Finisher Operator: Elvis Griffiths MD #### PSALOUISA HaasAB, LIPR #### [address] [phone] Finisher Operator: Brandon Mancia MDAST [Catalytic activity/Vol]21 U/JKgrpmy06-87 [facility] HospitalComment on above:Performed By: #### SALENA LOMAS, URI #### [facility] [address] [place] [address] Dr. [place] 4445083 Finisher Operator: Elvis Griffiths MD #### JALEN MARLEY, LIPR #### [address] [address] Finisher Operator: Brandon Mancia MDBilirubin [Mass/Vol]0.5 mg/dLNormal0.00-1.20 [facility] HospitalComment on above:Performed By: #### SALENA LOMAS, URI #### [address] [place] [address]5083 Finisher Operator: Elvis Griffiths MD #### PSALOUISA HaasAB, LIPR #### [address] [address] Finisher Operator: Brandon Mancia MDBUN/CRE Wbjzm12Bronrh4-66Ggucf [facility] Comment on above:Performed By: #### SALENA LOMAS, URI #### [address] [place], [place] 4097583 Finisher Operator: Elvis Griffiths MD #### PSAS URNMAB, LIPR #### [address] [phone] Finisher Operator: POLLY Pricealcium [Mass/Vol]8.7 mg/dLNormal8.6-10.4[facility] HospitalComment on above:Performed By: #### ABEBE, SALENA, URI #### [address] [place], [place] 5175783 Finisher Operator: Elvis Griffiths MD #### PSAS URNMAB, LIPR #### [place] [address] [place], [place] 1568308 Finisher Operator: POLLY Pricehloride [Moles/Vol]103 mmol/PGhdxnl45-467AcuhdOhio State East HospitalComment on above:Performed By: #### SALENA LOMAS, URI #### [address] [place] [id number] Finisher Operator: Elvis Griffiths MD #### KEIKO MARLEYNMAB, LIPR #### [address] [phone] Finisher Operator: Brandon Mancia MDCO2 [Moles/Vol]24 mmol/EMioklt76-04BilsxOhio State East HospitalComment on above:Performed By: #### ABEBE, CP, URI #### [address] [place], [place] 0801383 Finisher Operator: Elvis Griffiths MD #### PSAKEIKO HaasNMAB, LIPR #### [place] [address] [place], [place] 3684108 Finisher Operator: POLLY Pricereatinine [Mass/Vol]0.8 mg/dLNormal0.70-1.20 [facility] HospitalComva medical center on above:Performed By: #### ABEBE, CP, URI #### [address] [place], [place] 7981283 Finisher Operator: Elvis Griffiths MD #### PSAS, URNMAB, LIPR #### [address] [phone] Finisher Operator: Brandon Mancia MDGFR/1.73 sq M.predicted among non-blacks MDRD (S/P/Bld) [Vol rate/Area]mL/min/{1.73_m2}Normal>60[facility] HospitalComment on above:Result Comment: These results are not intended for [...] or following therapy that affects renal tubular secretion.Performed By: #### SALENA LOMAS, URI #### [address] [place] [address] Finisher Operator: Elvis Griffiths MD #### JALEN MARLEY, LIPR #### [address] [phone] Finisher Operator: Brandon Mancia MDGlucose [Mass/Vol]108 mg/dTNfcn52-13Sbmon95 Evans StreetComment on above:Performed By: #### SALENA LOMAS, URI #### [address] [place] [address] Finisher Operator: Elvis Griffiths MD #### JALEN MARLEY, LIPR #### [address] [phone] Finisher Operator: LOGAN Priceotassium [Moles/Vol]4.1 mmol/LNormal3.7-5.3 [facility] HospitalComva medical center on above:Performed By: #### SALENA LOMAS, URI #### [address] [place] [address] Finisher Operator: Elvis Griffiths MD #### PSAS, URNMAB, LIPR #### [facility] [employer] [facility] [place], [place] 2783008 Finisher Operator: LOGAN Pricerotein [Mass/Vol]6.9 g/dLNormal6.6-8.7[facility] HospitalComment on above:Performed By: #### CDP, CP, URI #### [address] [place] [address]5083 Finisher Operator: Elvis Griffiths MD #### PSAS, URNMAB, LIPR #### [facility] [employer] [facility] [place], [place] 5595908 Finisher Operator: ALYSHA Priceodium [Moles/Vol]141 mmol/PKsufgv723-582LehknOhio State East HospitalComment on above:Performed By: #### CDP, CP, URI #### [address] [place] [address]83 Finisher Operator: Elvis Griffiths MD #### PSAS, URNMAB, LIPR #### [facility] [employer] [facility] [place], [place] 6305808 Finisher Operator: Brandon Mancia MDUrea nitrogen [Mass/Vol]14 mg/dLNormal6-20[facility] HospitalComment on above:Performed By: #### CDP, CP, URI #### [address] [place] [address] Finisher Operator: Elvis Griffiths MD #### PSAS, URNMAB, LIPR #### [facility] [employer] [facility] [place], [place] 4436308 Finisher Operator: POLLY Priceomprehensive Metabolic Panelon 09-01-2024 Albumin [Mass/Vol]4.3 g/dL3.5 - 5.2 g/dLBon [facility] HospitalAlbumin/Globulin [Mass ratio]1.6 {ratio}1.0 - 2.5Bon [facility] HospitalALP [Catalytic activity/Vol]87 U/L40 - 129 U/LBon [facility] HealthALT [Catalytic activity/Vol]21 U/L10 - 50 U/LBon [facility] HospitalAnion gap [Moles/Vol]14 mmol/L9 - 16 mmol/LBon [facility] HealthAST [Catalytic activity/Vol]21 U/L10 - 50 U/LBon [facility] Medical CenterStirplate.io HealthBilirubin [Mass/Vol]0.5 mg/dL0.00 - 1.20 mg/dL Bon SecWhite HospitalCalcium [Mass/Vol]8.7 mg/dL8.6 - 10.4 mg/dLBon [facility] HospitalChloride [Moles/Vol]103 mmol/L98 - 107 mmol/LBon [facility] HospitalCO2 [Moles/Vol]24 mmol/L20 - 31 mmol/LBon [facility] HospitalCreatinine [Mass/Vol]0.8 mg/dL0.70 - 1.20 mg/dLBon [facility] HospitalEst, Glom Filt Rate- PINFBon [facility] HospitalComment on above: These results are not intended [...] therapy that affects renal tubular secretion. Glucose [Mass/Vol]108 mg/eQAtwe97 - 99 mg/dLBon [facility] Interpretation and review of laboratory resultsAbnormalBon [facility] Potassium [Moles/Vol]4.1 mmol/L3.7 - 5.3 mmol/LBon [facility] HospitalProtein [Mass/Vol]6.9 g/dL6.6 - 8.7 g/dLBon [facility] HospitalSodium [Moles/Vol]141 mmol/L136 - 145 mmol/LBon [facility] HospitalUrea nitrogen [Mass/Vol]14 mg/dL6 - 20 mg/dLBon [facility] HospitalUrea nitrogen/Creatinine [Mass ratio]18 mg/mg9 - 20Bon [facility] HospitalLipid Panelon [id number] [Mass/Vol]163 mg/dL0 - 199 mg/dLBon [facility] HospitalComment on above: Cholesterol Guidelines: <200 Desirable 200-240 Borderline >240 Undesirable Cholesterol in HDL [Mass/Vol]28 mg/dLLow40 - PINF mg/dLBon [facility] Comment on above: HDL Guidelines: <40 Undesirable 40-59 Borderline >59 Desirable Cholesterol in LDL [Mass/Vol]117 mg/dLHigh0 - 100 mg/dLBon [facility] Comment on above: LDL Guidelines: <100 Desirable 100-129 Near to/above Desirable 130-159 Borderline >159 Undesirable Direct (measured) LDL and calculated LDL are not interchangeable tests. Cholesterol in VLDL [Mass/Vol]18 mg/dL1 - 30 mg/dLBon [facility] Cholesterol.total/Cholesterol in HDL [Mass ratio]5.8 {ratio}HighNINF - 5.0Bon [facility] HospitalInterpretation and review of laboratory resultsAbnormalBon [facility] HospitalTriglyceride [Mass/Vol]90 mg/dLNINF - 150 mg/dLBRetreat Doctors' HospitalComment on above: Triglyceride Guidelines: <150 Desirable 150-199 Borderline 200-499 High >499 Very high Based on AHA Guidelines for fasting triglyceride, December 2011. [facility] Medical CenterLipid Profileon [id number] [Mass/Vol]163 mg/dLNormal0-199[facility] HospitalComment on above:Result Comment: Cholesterol Guidelines: <200 Desirable 200-240 Borderline >240 UndesirablePerformed By: #### CDP, CP, URI #### [facility] [address] [place] [address] Finisher Operator: Elvsi Griffiths MD #### KEIKO MARLEYNMAB, LIPR #### [facility] [employer] [address] [place] [address] Finisher Operator: POLLY Priceholesterol in HDL [Mass/Vol]28 mg/dLLow>40Ohio [facility] HospitalComment on above:Result Comment: HDL Guidelines: <40 Undesirable 40-59 Borderline >59 DesirablePerformed By: #### CDP, CP, URI #### [address] [place], [place] 9004383 Finisher Operator: Elvis Griffiths MD #### LOUISA MARLEYAB, LIPR #### [address] [phone] Finisher Operator: Brandon Mancia MDCholesterol in LDL [Mass/Vol]117 mg/dLHigh0-100 [facility] HospitalComment on above:Result Comment: LDL Guidelines: <100 Desirable 100-129 Near to/above Desirable 130-159 Borderline >159 Undesirable Direct (measured) LDL and calculated LDL are not interchangeable tests.Performed By: #### SALENA LOMAS, URI #### [address] [place], [place] 7195183 Finisher Operator: Elvis Griffiths MD #### JALEN MARLEY, LIPR #### [address] [address] Finisher Operator: POLLY Priceholesterol in VLDL [Mass/Vol]18 mg/dLNormal1-30 [facility] HospitalComment on above:Performed By: #### SALENA LOMAS, URI #### [address] [place], [place] 4067183 Finisher Operator: Elvis Griffiths MD #### KEIKO MARLEYNMAB, LIPR #### [place] [address] [place] [address] Finisher Operator: POLLY Priceholestreji.total/Cholesterol in HDL [Mass ratio]5.8 {ratio}High<5.0[facility] HospitalComva medical center on above:Performed By: #### SALENA LOMAS, URI #### [address] [place], [place] 0233283 Finisher Operator: Elvis Griffiths MD #### KEIKO MARLEYNMAB, LIPR #### [facility] [address] [place], [place] 9514808 Finisher Operator: Brandon Mancia MDTriglyceride [Mass/Vol]90 mg/dLNormal<150[facility] HospitalComment on above:Result Comment: Triglyceride Guidelines: <150 Desirable 150-199 Borderline 200-499 High >499 Very high Based on AHA Guidelines for fasting triglyceride, December 2011.Performed By: #### CDP, CP, URI #### [facility] [address] [place] [address] Finisher Operator: Elvis Griffiths MD #### PSAS, URNMAB, LIPR #### [facility] [address] [place], [place] 2107808 Finisher Operator: Brandon Mancia MDMHPT CBC WITH DIFFon [id number]/100 WBC (Bld)1 %0 - 2 %[facility]OM[facility] HealthcareEosinophils/100 WBC (Bld)2 %1 - 4 %[facility] for ChildrenErythrocyte distribution width (RBC) [Ratio]13.1 %11.8 - 14.4 %[facility] for ChildrenHematocrit (Bld) [Volume fraction]43.6 %40.7 - 50.3 %[facility] Hemoglobin (Bld) [Mass/Vol]14.8 g/dL13.0 - 17.0 g/dLShriners Hospitals for ChildrenImmature granulocytes/100 WBC (Bld)0 %0NOThree Rivers HealthcareLymphocytes/100 WBC (Bld)26 %24 - 43 %[facility] for ChildrenMCH (RBC) [Entitic mass]28.9 pg25.2 - 33.5 pgNOIA Healthcare MCHC (RBC) [Mass/Vol]33.9 g/dL28.4 - 34.8 g/dLShriners Hospitals for ChildrenMCV (RBC) [Entitic vol]85.2 fL82.6 - 102.9 fLNOIA HealthcareMHPT ABS. BASOPHIL0.04[facility] MHPT ABS. EOSINOPHIL0.14NOIA HealthcareMHPT ABS. LYMPH2.14NOIA HealthcareMHPT ABS. MONOCYTE0.6NOIA HealthcareMHPT ABS.IMM.GRANULOCYTE<0.03NOThree Rivers HealthcareMHPT ABS.NEUTROPHIL (SEG)5.24NOCox MonettPT NRBC LYEVRSFRC84.0 per 100 WBCNOCox MonettPT PLATELET QMASL233MTGTCox MonettPT WBC COUNT8.2[facility] Monocytes/100 WBC (Bld)7 %3 - 12 %NOM HealthcarePlatelet mean volume (Bld) [Entitic vol]10 fL8.1 - 13.5 fLAMERICAN FORK HOSPITAL HealthcareRBC (Bld) [#/Vol]5.12 10*6/uL4.21 - 5.77 m/uLNOThree Rivers HealthcareSegmented neutrophils/100 WBC (Bld)64 %36 - 65 %[facility] HealthcareOriginal Ordering Provider: JENN BOXChildren's Mercy NorthlandNo Panel Informationon [id number] Screening on [id number] specific Ag [Mass/Vol]0.5 ng/mL0.00 - 4.00 ng/mLBon [facility] HospitalComment on above:The [employer] ECLIA assay is used. Results obtained with different assay methods cannot be used interchangeably. Bon [facility], Screeningon [id number] Spec. Ag0.50 ng/mL Normal0.00-4.00[facility] HospitalComment on above:Result Comment: The [employer] ECLIA assay is used. Results obtained with different assay methods cannot be used interchangeably.Performed By: #### SALENA LOMAS, URI #### [address] [place] [address] Finisher Operator: Elvis Griffiths MD #### PSAS, URNMAB, LIPR #### [facility] [address] [place] [address] Finisher Operator: Brandon Mancia MDUric Acidon [id number] [Mass/Vol]6.1 mg/dL 3.4 - 7.0 mg/dLBon [facility] HospitalUrate [Mass/Vol]6.1 mg/dLNormal3.4-7.0 [facility] HospitalComment on above:Performed By: #### SALENA LOMAS, URI #### [facility] [address] [place] [address] [place] [address] Finisher Operator: Elvis Griffiths MD #### PSAS, URNMAB, LIPR #### [address] [place], [place] [id number] Finisher Operator: Brandon Mancia MDUrinalysison 64-68-0122Rgtwemhfy Ql (U)Negative NEGATIVEBon [facility] HealthClarity (U)ClearClearBon [facility] Health Color (U)YellowYellowBon [facility] HospitalGlucose Test strip (U) [Mass/Vol] NegativeNEGATIVE mg/dLBon [facility] HospitalHemoglobin Auto test strip Ql (U) NegativeNEGATIVEBon [facility] HealthInterpretation and review of laboratory resultsAbnormalBon [facility]VA [facility] HealthKetones (U) [Mass/Vol]NegativeNEGATIVE mg/dLBon [facility] HospitalLeukocyte esterase Test strip Ql (U)Negative NEGATIVEBon [facility] HealthNitrite Ql (U)NegativeNEGATIVEBon [facility] HealthpH (U)6 [pH]5.0 - 9.0[facility] HealthProtein (U) [Mass/Vol] NegativeNEGATIVE mg/dLBon [facility] HealthSpecific gravity (U) [Rel density] 1.942Cvse0.010 - 1.020Bon [facility] HospitalUrobilinogen Qn (U)Normal0.0 - 1.0 EU/dLBon SecMil[facility][note 3]Urinalysis, Routineon 86-95-8828Kwupjvjcx, SemiQt,UrNegativeNormalNEGMerLawrence+Memorial HospitalComment on above:Performed By: #### UA #### [facility] [address] [place] [address] Finisher Operator: Alethea Resendiz, UrineNegativeNormalLake County Memorial [facility] Comment on above:Performed By: #### UA #### [facility] [address] [place] [address] Finisher Operator: POLLY Resendizlarity (U)ClearNormalCLEAROhio State East Hospital Comment on above:Performed By: #### UA #### [facility] [address] [place] [address] Dr. [place], [facility]83 Finisher Operator: POLLY Resendizolor (U)YellowNormalYELMerLawrence+Memorial Hospital Comment on above:Performed By: #### UA #### [facility] [address] [place] [address] Dr. [place], [facility]83 Finisher Operator: Elvis Griffiths MDGlucose Ql (U)NegativeNormalNEGOhio State East HospitalComment on above:Performed By: #### UA #### [facility] [address] [place] [address] Dr. [place], [facility] Finisher Operator: Elvis Griffiths MDKetones Ql (U)NegativeNormalNEGOhio State East HospitalComment on above:Performed By: #### UA #### [facility] [address] [place] [address] Dr. [place], [facility]83 Finisher Operator: Elvis Griffiths MDLeukocyte esterase Test strip Ql (U)NegativeNormal NEGOhio State East HospitalComment on above:Performed By: #### UA #### [facility] [address] [place] [address] Dr. [place], [facility]83 Finisher Operator: Elvis Griffiths MDNitrite,UrNegativeNormalLake County [facility] Hospital [facility] Comment on above:Performed By: #### UA #### [facility] [address] [place] [address] Dr. [place], [facility]83 Finisher Operator: LOGAN Resendiz,Ur6.6Wrnpho2.0-9.0MerLawrence+Memorial HospitalComment on above:Performed By: #### UA #### [facility] [address] [place] [address] Dr. [place], [place] 8[address]83 Finisher Operator: LOGAN Resendizrotein Ql (U)NegativeNormalNEGMerMercy Health HospitalComment on above:Performed By: #### UA #### [facility] [address] [place] [address] Finisher Operator: Dom Resendiz. Correll,Ur1.722Bmaw5.010-1.020Ohio State East HospitalComva medical center on above:Performed By: #### UA #### [facility] [address] [place], [place] [address]483 Finisher Operator: Elvis Griffiths MDUrobilinogen,UrNormalNormal0.0-1.0[facility] HospitalComment on above:Performed By: #### UA #### [facility] [address] [place] [address] Finisher Operator: Elvis Griffiths MDHbA1c (Bld) [Mass fraction]on 06-29-2024 Interpretation and review of laboratory resultsAbAtrium HealthLaboratory - Hematology and Cell countson 54-32-7149CsD7v (Bld) [Mass fraction]5.90 %[facility]-NERVINE ASYLUMS HealthcareMRSA CULTUREon 83-64-1991Dkyhfytecjzwfy and review of laboratory resultsAbMcLaren Northern MichiganSA CULTURE O:STAAUR Isolated [facility] HealthcareMRSA CULTURE MRSA Culture Quantity of Growth [facility] Medical CenterSA CULTURELIGHTMadison Medical CenterSA CULTUREMETHICILLIN RESISTANT STAPH AUREUS ISOLATED. PLEASE FOLLOWUniversity Hospital CULTUREShriners Hospitals for Children MRSA CULTUREMRSA CALL TO DR. LEUNG. 09-24-23 AT 1148[facility] C[facility] Organism: 1.1 Antibiotic Interpretation GEMA Status NOMS HealthcareMRSA CULTUREBeta Lactamase N FNOMS HealthcareMRSA CULTURE Cefoxitin Screen A FAbnormalShriners Hospitals for ChildrenMRSA CULTURECiprofloxacin S <=0.5 F SusceptibleNOIA HealthcareMRSA CULTUREClindamycin S <=0.25 FSusceptibleNOIA HealthcareMRSA CULTUREErythromycin S <=0.25 FSusceptibleNOIA HealthcareMRSA CULTUREInducible Clindamycin Resis N FNOMS HealthcareMRSA CULTURELevofloxacin S 0.25 FSusceptibleShriners Hospitals for ChildrenMRSA CULTURELinezolid S 2 FSusceptibleShriners Hospitals for ChildrenMRSA CULTUREOxacillin R >=4 FResistantNOMS HealthcareMRSA CULTURE Penicillin-G R >=0.5 FResistantNOMS HealthcareMRSA CULTURE Quinupristin/Dalfopristin S <=0.25 FSusceptibleNOMS HealthcareMRSA CULTURE Rifampin S <=0.5 FSusceptibleNOMS HealthcareMRSA CULTURETetracycline S <=1 F SusceptibleNOMS HealthcareMRSA CULTURETrimethoprim/Sulfamethoxazole S <=10 F SusceptibleNOMS HealthcareMRSA CULTUREVancomycin S 1 FSusceptibleNOMS Healthcare CLINISYNCNOMS HealthcareECG 12-LEADon 82-49-9462A[place] [address] Electrocardiograph Report Signed Patient: HAIR BRENNER MR#: [id number] : 1975 Acct:[id number] Age/Sex: 48 / M ADM Date: 09/22/23 Loc: LAB Attending Dr: Carlito Leung M.D. Ordering Physician: Carlito Leung M.D. Date of Service: 09/22/23 Procedure(s): ECG 12 lead Accession Number(s): [id number] cc: [facility] Test Date: 2023-09-22 Pat Name: HAIR BRENNER Department: Room: - Gender: Male Medical Director: : 1975 Requested By: 2089 Order Number: [id number] Reading MD: WOO MARQUEZ Measurements Intervals [place] Rate: 83 P: 35 TX: 205 QRS: 18 QRSD: 109 T: 27 QT: 393 QTc: 464 Interpretive Statements SINUS RHYTHM Compared to ECG 03/06/2021 21:21:10 No significant changes Electronically Signed On 09-22-2023 22:15:28 EDT by WOO MARQUEZ Dictated By: Woo Marquez D.O. Signed By: 09/22/23221409/22/232214 DD/ 9 TD/TT: Shield Operator:ILAadiologsusan, Radiologist, - 09/22/2023 [place] [address] Electrocardiograph Report Signed Patient: HAIR BRENNER MR#: [id number] : 1975 Acct:[id number] Age/Sex: 48 / M ADM Date: 09/22/23 Loc: LAB Attending Dr: Carlito Leung M.D. Ordering Physician: Carlito Leung M.D. Date of Service: 09/22/23 Procedure(s): ECG 12 lead Accession Number(s): [id number] cc: [facility] Test Date: 2023-09-22 Pat Name: HAIR BRENNER Department: Room: - Gender: Male Medical Director: : 1975 Requested By: 2089 Order Number: [id number] Reading MD: WOO MARQUEZ Measurements Intervals [place] Rate: 83 P: 35 TX: 205 QRS: 18 QRSD: 109 T: 27 QT: 393 QTc: 464 Interpretive Statements SINUS RHYTHM Compared to ECG 03/06/2021 21:21:10 No significant changes Electronically Signed On 09-22-2023 22:15:28 EDT by WOO MARQUEZ Dictated By: Woo Marquez D.O. Signed By: 09/22/23221409/22/232214 DD/ 0740 TD/TT: Shield Operator: FELIPA HealthcareRadiology Study observation (narrative)FELIPA HealthcareECG 12-LEAD Ordered By: Radiologist Radiology on 39-19-8404LDFW Healthcare Work Phone: XR CHEST 2Von [phone] [address] XRay Report Signed Patient: HAIR BRENNER MR#: [id number] : 1975 Acct:[id number] Age/Sex: 48 / M ADM Date: 09/22/23 Loc: LAB Attending Dr: Carlito Leung M.D. Ordering Physician: Carlito Leung M.D. Date of Service: 09/22/23 Procedure(s): XR chest 2V Accession Number(s): [id number] cc: Shaikh Heath Cordoba; Carlito Leung M.D. [address] [address] Patient Name: HAIR BRENNER MRN: [id number] date: 1975 Sex: M Assigned Patient Location: LAB Current Patient Location: LAB Accession/Order Number: [id number] Exam Date: 09/22/2023 07:50 Report Date: 09/22/2023 12:55 At the request of: CARLITO LEUNG Procedure: XR chest 2V EXAMINATION: XR chest 2V HISTORY: Pre Operative Cardiovascular and Respiratory Clearance COMPARISON: , CTA chest 03/07/2021 XR chest 07/03/2019 FINDINGS: LUNGS: 7 mm round nodule within lateral right midlung. Lungs otherwise clear. VASCULATURE: No increased pulmonary vasculature. PLEURA: No pneumothorax, effusion, or pleural thickening. CARDIAC: No cardiomegaly or cardiac silhouette abnormality. MEDIASTINUM: No visible mass or adenopathy. BONES: No fracture or visible bone lesion. OTHER: Negative. XR/XR chest 2V IMPRESSION: 1. New 7 mm nodule within lateral right midlung; nonspecific. Consider CT chest without contrast for further evaluation. 2. No appreciable acute infiltrates. Electronically authenticated by: MIKAYLA COVINGTON Date: 09/22/2023 12:55 Dictated By: Mikayla Covington M.D. Signed By: 09/22/23 1257 DD/ 1255 TD/TT: Shield Operator:TBHRadiology, Radiologist, - 09/22/2023 [place] [address] XRay Report Signed Patient: HAIR BRENNER MR#: [id number] : 1975 Acct:[id number] Age/Sex: 48 / M ADM Date: 09/22/23 Loc: LAB Attending Dr: Carlito Leung M.D. Ordering Physician: Carlito Leung M.D. Date of Service: 09/22/23 Procedure(s): XR chest 2V Accession Number(s): [id number] cc: Shaikh Heath Cordoba; Carlito Leung M.D. The [place] [id number] Patient Name: HAIR BRENNER MRN: [id number] date: 1975 Sex: M Assigned Patient Location: LAB Current Patient Location: LAB Accession/Order Number: [id number] Exam Date: 09/22/2023 07:50 Report Date: 09/22/2023 12:55 At the request of: CARLITO LEUNG Procedure: XR chest 2V EXAMINATION: XR chest 2V HISTORY: Pre Operative Cardiovascular and Respiratory Clearance COMPARISON: , CTA chest 03/07/2021 XR chest 07/03/2019 FINDINGS: LUNGS: 7 mm round nodule within lateral right midlung. Lungs otherwise clear. VASCULATURE: No increased pulmonary vasculature. PLEURA: No pneumothorax, effusion, or pleural thickening. CARDIAC: No cardiomegaly or cardiac silhouette abnormality. MEDIASTINUM: No visible mass or adenopathy. BONES: No fracture or visible bone lesion. OTHER: Negative. XR/XR chest 2V IMPRESSION: 1. New 7 mm nodule within lateral right midlung; nonspecific. Consider CT chest without contrast for further evaluation. 2. No appreciable acute infiltrates. Electronically authenticated by: MIKAYLA COVINGTON Date: 09/22/2023 12:55 Dictated By: Mikayla Covington M.D. Signed By: 09/22/23 1257 DD/ 1255 TD/TT: Shield Operator: FELIPA HealthcareRadiology Study observation (narrative)NOM HealthcareXR CHEST 2V Ordered By: Radiologist Radiology on 23-20-1587NZVMShriners Hospitals for Children Work Phone: XR LUMBAR SPINE MIN 4Von [phone] [address] XRay Report Signed Patient: HAIR BRENNER MR#: [id number] : 1975 Acct:[id number] Age/Sex: 48 / M ADM Date: 07/11/23 Loc: EC Attending Dr: Gerardo Parker M.D. Ordering Physician: Gerardo Parker M.D. Date of Service: 07/11/23 Procedure(s): XR lumbar spine min 4V Accession Number(s): [id number] cc: Shaikh Heath Cordoba; Gerardo aPrker M.D. The [place] [id number] Patient Name: HAIR BRENNER MRN: [id number] date: 1975 Sex: M Assigned Patient Location: EC Current Patient Location: Accession/Order Number: [id number] Exam Date: 07/11/2023 10:18 Report Date: 07/12/2023 10:30 At the request of: GERARDO PAKRER Procedure: XR lumbar spine min 4V EXAMINATION: XR lumbar spine min 4V HISTORY: LOWER BACK PAIN COMPARISON: No relevant comparison available. FINDINGS: BONES: Suspect mild grade 1 anterolisthesis of L4 on 5 without appreciable change in alignment during flexion and extension. No change in alignment during flexion and extension. Mild degenerative facet arthropathy L3-L4 through L5-S1. DISC SPACES: Mild narrowing L3-L4, L4-L5. PARASPINOUS: Negative. No paraspinous abnormality is seen. OTHER: Negative. XR/XR lumbar spine min 4V IMPRESSION: 1. Mild degenerative changes detailed above. 2. Limited examination due to patient body habitus and underpenetration. Electronically authenticated by: MIKAYLA COVINGTON Date: 07/12/2023 10:30 Dictated By: Mikayla Covington M.D. Signed By: 07/12/23 1033 DD/ 1030 TD/TT: Shield Operator:TBHRadiology, Radiologist, MD - 07/12/[address] [address] XRay Report Signed Patient: HAIR BRENNER MR#: [id number] : 1975 Acct:[id number] Age/Sex: 48 / M ADM Date: 07/11/23 Loc: EC Attending Dr: Gerardo Parker M.D. Ordering Physician: Gerardo Parker M.D. Date of Service: 07/11/23 Procedure(s): XR lumbar spine min 4V Accession Number(s): [id number] cc: Shaikh Heath Cordoba; Gerardo Parker M.D. [address] [address] Patient Name: HAIR BRENNER MRN: [id number] date: 1975 Sex: M Assigned Patient Location: Current Patient Location: Accession/Order Number: [id number] Exam Date: 07/11/2023 10:18 Report Date: 07/12/2023 10:30 At the request of: GERARDO PARKER Procedure: XR lumbar spine min 4V EXAMINATION: XR lumbar spine min 4V HISTORY: LOWER BACK PAIN COMPARISON: No relevant comparison available. FINDINGS: BONES: Suspect mild grade 1 anterolisthesis of L4 on 5 without appreciable change in alignment during flexion and extension. No change in alignment during flexion and extension. Mild degenerative facet arthropathy L3-L4 through L5-S1. DISC SPACES: Mild narrowing L3-L4, L4-L5. PARASPINOUS: Negative. No paraspinous abnormality is seen. OTHER: Negative. XR/XR lumbar spine min 4V IMPRESSION: 1. Mild degenerative changes detailed above. 2. Limited examination due to patient body habitus and underpenetration. Electronically authenticated by: MIKAYLA COVINGTON Date: 07/12/2023 10:30 Dictated By: Mikayla Covington M.D. Signed By: 07/12/23 1033 DD/ 1030 TD/TT: Shield Operator: FELIPA HealthcareRadiology Study observation (narrative)NOM HealthcareXR LUMBAR SPINE MIN 4VOrdered By: Radiologist Radiology on [id number] Healthcare Work Phone: MR LUMBAR SPINE WO CONon [phone] [address] Magnetic Resonance Report Signed Patient: HAIR BRENNER MR#: [id number] : 1975 Acct:[id number] Age/Sex: 48 / M ADM Date: 07/03/23 Loc: RAD Attending Dr: Shaikh Adalid Joe Ordering Physician: Shaikh Heath Cordoba Date of Service: 07/03/23 Procedure(s): MR lumbar spine wo con Accession Number(s): [id number] cc: Shaikh Heath Cordoba [address] [address] Patient Name: HAIR BRENNER MRN: [facility]:[id number] date: 1975 Sex: M Assigned Patient Location: [facility] Current Patient Location: RAD Accession/Order Number: [id number] Exam Date: 07/03/2023 09:10 Report Date: 07/03/2023 10:17 At the request of: SHAIKH ADALID Procedure: MR lumbar spine wo con MR lumbar spine wo con, 07/03/2023 9:10 AM EDT INDICATION: Acute Bilateral Low Back Pain Right Sciatica M54.41 COMPARISON: There is no appropriate prior study for comparison. TECHNIQUE: Multiplanar, multisequential MRI images of lumbar spine were obtained without contrast. FINDINGS: For dictation purposes, the lowest complete disc space in the lumbar spine considered as L5-S1. There is normal physiologic lumbar lordosis. The vertebral height is preserved. The conus medullaris is at the level of L1. No signal abnormality within the visualized spinal cord is noted. Level of T12-L1 is unremarkable. No neural foraminal narrowing or canal stenoses at the level of L1-L2 and L2-L3 is noted. At the level of L3-4, there are disc bulge with superimposed right lateral extrusion with inferior migration with moderate bilateral neuroforaminal narrowing and moderate to severe canal stenosis. The right L4 nerve root is in close contact with the disc extrusion in the lateral recess. At the level of L4-5, there are disc bulge with moderate bilateral neuroforaminal narrowing and mild canal stenosis. At the level of L5-S1, there are disc bulge with central annular fissure with mild right and moderate left neuroforaminal narrowing and no canal stenosis. The left S1 nerve root is in close contact with the disc bulge in the lateral recess. The paraspinal muscles are unremarkable. MR/MR lumbar spine wo con IMPRESSION: Mild to moderate degenerative changes of lumbar spine in particular at L3-L4 and L5-S1. Electronically authenticated by: RAMIREZ DE LA CRUZ Date: 07/03/2023 10:17 Dictated By: Ramirez De La Cruz M.D. Signed By: 07/03/23 1019 DD/ 1017 TD/TT: Shield Operator:TBHRadiology, Radiologist, - 07/03/2023 [place] [address] Magnetic Resonance Report Signed Patient: HAIR BRENNER MR#: [id number] : 1975 Acct:[id number] Age/Sex: 48 / M ADM Date: 07/03/23 Loc: RUDDY Attending Dr: Shaikh Adalid Joe Ordering Physician: Shaikh Heath Cordoba Date of Service: 07/03/23 Procedure(s): MR lumbar spine wo con Accession Number(s): [id number] cc: Shaikh Heath Cordoba The [place] [address] Patient Name: HAIR BRENNER MRN: [facility]:[id number] date: 1975 Sex: M Assigned Patient Location: [facility] Current Patient Location: [facility] Accession/Order Number: [id number] Exam Date: 07/03/2023 09:10 Report Date: 07/03/2023 10:17 At the request of: SHAIKH ADALID Procedure: MR lumbar spine wo con MR lumbar spine wo con, 07/03/2023 9:10 AM EDT INDICATION: Acute Bilateral Low Back Pain Right Sciatica M54.41 COMPARISON: There is no appropriate prior study for comparison. TECHNIQUE: Multiplanar, multisequential MRI images of lumbar spine were obtained without contrast. FINDINGS: For dictation purposes, the lowest complete disc space in the lumbar spine considered as L5-S1. There is normal physiologic lumbar lordosis. The vertebral height is preserved. The conus medullaris is at the level of L1. No signal abnormality within the visualized spinal cord is noted. Level of T12-L1 is unremarkable. No neural foraminal narrowing or canal stenoses at the level of L1-L2 and L2-L3 is noted. At the level of L3-4, there are disc bulge with superimposed right lateral extrusion with inferior migration with moderate bilateral neuroforaminal narrowing and moderate to severe canal stenosis. The right L4 nerve root is in close contact with the disc extrusion in the lateral recess. At the level of L4-5, there are disc bulge with moderate bilateral neuroforaminal narrowing and mild canal stenosis. At the level of L5-S1, there are disc bulge with central annular fissure with mild right and moderate left neuroforaminal narrowing and no canal stenosis. The left S1 nerve root is in close contact with the disc bulge in the lateral recess. The paraspinal muscles are unremarkable. MR/MR lumbar spine wo con IMPRESSION: Mild to moderate degenerative changes of lumbar spine in particular at L3-L4 and L5-S1. Electronically authenticated by: RAMIREZ DE LA CRUZ Date: 07/03/2023 10:17 Dictated By: Ramirez De La Cruz M.D. Signed By: 07/03/23 1019 DD/ 1017 TD/TT: Shield Operator: FELIPA HealthcareRadiology Study observation (narrative)[facility] LUMBAR SPINE WO CONOrdered By: Radiologist Radiology on 63-74-0131XKUL [facility] Work Phone: XR FOREIGN BODY EYEon [phone] [place] [id number] XRay Report Signed Patient: HAIR BRENNER MR#: [id number] : 1975 Acct:[id number] Age/Sex: 48 / M ADM Date: 07/03/23 Loc: RAD Attending Dr: Shaikh Adalid Joe Ordering Physician: Shaikh Heath Cordoba Date of Service: 07/03/23 Procedure(s): XR foreign body eye Accession Number(s): [id number] cc: Shaikh Heath Cordoba [address] [address] Patient Name: HAIR BRENNER MRN: [id number] date: 1975 Sex: M Assigned Patient Location: RAD Current Patient Location: RAD Accession/Order Number: [id number] Exam Date: 07/03/2023 08:50 Report Date: 07/03/2023 09:10 At the request of: SHAIKH ADALID Procedure: XR foreign body eye EXAMINATION: XR foreign body eye HISTORY: Foreign Body Eye COMPARISON: No relevant comparison available. FINDINGS: ORBITS: Negative for a metallic foreign body. OTHER: Dense calcification along superior margin of frontal sinuses only frontal view; possible meningeal calcification. XR/XR foreign body eye IMPRESSION: 1. No metallic foreign body within the orbits. 2. Nonspecific calcification; possibly an intracranial meningeal callus calcifications. Consider CT or MRI imaging of the head for further evaluation. Electronically authenticated by: MIKAYLA COVINGTON Date: 07/03/2023 09:10 Dictated By: Mikayla Covington M.D. Signed By: 07/03/23912 DD/ 9 TD/TT: Shield Operator:TBHRadiology, Radiologist, MD - 07/03/2023 [place] [address] XRay Report Signed Patient: HAIR BRENNER MR#: [id number] : 1975 Acct:[id number] Age/Sex: 48 / M ADM Date: 07/03/23 Loc: RAD Attending Dr: Shaikh Adalid Joe Ordering Physician: Shaikh Heath Cordoba Date of Service: 07/03/23 Procedure(s): XR foreign body eye Accession Number(s): [id number] cc: Shaikh Heath Cordoba The [address] [address] Patient Name: HAIR BRENNER MRN: [id number]:[id number] date: 1975 Sex: M Assigned Patient Location: RAD Current Patient Location: RAD Accession/Order Number: [id number] Exam Date: 07/03/2023 08:50 Report Date: 07/03/2023 09:10 At the request of: SHAIKH ADALID Procedure: XR foreign body eye EXAMINATION: XR foreign body eye HISTORY: Foreign Body Eye COMPARISON: No relevant comparison available. FINDINGS: ORBITS: Negative for a metallic foreign body. OTHER: Dense calcification along superior margin of frontal sinuses only frontal view; possible meningeal calcification. XR/XR foreign body eye IMPRESSION: 1. No metallic foreign body within the orbits. 2. Nonspecific calcification; possibly an intracranial meningeal callus calcifications. Consider CT or MRI imaging of the head for further evaluation. Electronically authenticated by: MIKAYLA COVINGTON Date: 07/03/2023 09:10 Dictated By: Mikayla Covington M.D. Signed By: 07/03/23912 DD/ 9 TD/TT: Shield Operator: FELIPA HealthcareRadiology Study observation (narrative)[facility] HealthcareXR FOREIGN BODY EYEOrdered By: Radiologist Radiology on 03-42-2054JDQC [employer] Work Phone: XR LUMBAR SPINE 2 OR 3Von [phone] [address] XRay Report Signed Patient: HAIR BRENNER MR#: [id number] : 1975 Acct:[id number] Age/Sex: 48 / M ADM Date: 06/06/23 Loc: [facility] Attending Dr: Shaikh Adalid Joe Ordering Physician: Shaikh Heath Cordoba Date of Service: 06/06/23 Procedure(s): XR lumbar spine 2-3V Accession Number(s): [id number] cc: Shaikh Heath Cordoba The [place] [id number] Patient Name: HAIR BRENNER MRN: [id number]:[id number] date: 1975 Sex: M Assigned Patient Location: RAD Current Patient Location: RAD Accession/Order Number: [id number] Exam Date: 06/06/2023 11:10 Report Date: 06/06/2023 13:00 At the request of: SHAIKH ADALID Procedure: XR lumbar spine 2-3V EXAM: XR lumbar spine 2-3V HISTORY: acute bilateral low back pain with right sided sciatica COMPARISON: None. TECHNIQUE: 3 views FINDINGS: Satisfactory alignment. Maintained vertebral body heights multilevel endplate degenerative changes, disc disease, anterior spurring of L3-S1. No acute fracture or significant subluxation. Punctate left nephrolithiasis. XR/XR lumbar spine 2-3V IMPRESSION: Degenerative changes and disc disease as above. Punctate left nephrolithiasis. Electronically authenticated by: RODOLFO ARANGO Date: 06/06/2023 13:00 Dictated By: Rodolfo Arango M.D. Signed By: 06/06/23 1303 DD/ 1300 TD/TT: Shield Operator:TBHRadiology, Radiologist, - 06/06/2023 [place] [address] XRay Report Signed Patient: HAIR BRENNER MR#: [id number] : 1975 Acct:[id number] Age/Sex: 48 / M ADM Date: 06/06/23 Loc: RAD Attending Dr: Shaikh Adalid Joe Ordering Physician: Shaikh Heath Cordoba Date of Service: 06/06/23 Procedure(s): XR lumbar spine 2-3V Accession Number(s): [id number] cc: Shaikh Heath Cordoba The [place] [address] Patient Name: HAIR BRENNER MRN: [id number] date: 1975 Sex: M Assigned Patient Location: [facility] Current Patient Location: RAD Accession/Order Number: [id number] Exam Date: 06/06/2023 11:10 Report Date: 06/06/2023 13:00 At the request of: SHAIKH ADALID Procedure: XR lumbar spine 2-3V EXAM: XR lumbar spine 2-3V HISTORY: acute bilateral low back pain with right sided sciatica COMPARISON: None. TECHNIQUE: 3 views FINDINGS: Satisfactory alignment. Maintained vertebral body heights multilevel endplate degenerative changes, disc disease, anterior spurring of L3-S1. No acute fracture or significant subluxation. Punctate left nephrolithiasis. XR/XR lumbar spine 2-3V IMPRESSION: Degenerative changes and disc disease as above. Punctate left nephrolithiasis. Electronically authenticated by: RODOLFO ARANGO Date: 06/06/2023 13:00 Dictated By: Rodolfo Arango M.D. Signed By: 06/06/23 1303 DD/ 1300 TD/TT: Shield Operator: [facility] ASYLUMWaldo HealthcareRadiology Study observation (narrative)[facility] HealthcareXR LUMBAR SPINE 2 OR 3VOrdered By: Radiologist Radiology on [id number] [employer] Work Phone: aMYLASEon [id number] [Catalytic activity/Vol]32 U/XYkgyna56-831ZneWilson HealthComment on above:Performed By: #### JORDON MALHOTRA, CMP #### [facility] [address] [place] [address] Dr. Brady Dai AUTO DIFFon [id number] #0.0 103/ulNormal0.0-0.1Wilson HealthComment on above:Performed By: #### CBC #### [facility] [address] [place] [address] Dr. Brady Jessicasophils/100 WBC (Bld)0.4 %Normal0.2-2.0[facility] Comment on above:Performed By: #### CBC #### [facility] [address] [place] [address] Dr. Brady Farrar #0.1 103/ulNormal0.0-0.7The Park[facility] HospitalComment on above: Performed By: #### CBC #### [facility] [address] [place] [address] Dr. Brady Summersosinophils/100 WBC (Bld)1.5 %Normal0.9-7.0[facility] Comment on above:Performed By: #### CBC #### [facility] [address] [place] [address] Dr. Brady Summersrythrocyte distribution width (RBC) [Ratio]13.2 %Sxougv32.0-15.0 Wilson HealthComment on above:Performed By: #### CBC #### [facility] [address] [place] [address] Dr. Brady SandersHematocrit (Bld) [Volume fraction]41.0 %Critically low42.0-54.0 The Parkwood HospitalComment on above:Performed By: #### CBC #### [facility] [address] [place] [address] Dr. Brady SandersHemoglobin (Bld) [Mass/Vol]13.8 g/dLCritically low14.0-18.0The [facility] HospitalComment on above:Performed By: #### CBC #### [facility] [address] [place] [address] Dr. Brady James #0.03 10e3/ulNormal0.00-0.03The [facility] HospitalComment on above:Performed By: #### CBC #### [facility] [address] [place] [address] Dr. Brady James %0.4 %Normal0.0-0.5The [facility] HospitalComment on above: Performed By: #### CBC #### [facility] [address] [place] [address] Dr. Brady Sofia #1.8 103/ulNormal1.2-3.8The [facility] HospitalComment on above:Performed By: #### CBC #### [facility] [address] [place] [address] Dr. Brady Renehocytes/100 WBC (Bld)21.4 %Ycalph37.5-60.0The [facility] HospitalComment on above:Performed By: #### CBC #### [facility] [address] [place] [address] Dr. Brady ValverdeUAL DIFF REQNONormalThe [facility]wood HospitalComment on above: Performed By: #### CBC #### [facility] [address] [place] [address] Dr. Brady SolisKyara (RBC) [Entitic mass]28.1 ezMbhmca18.9-34.0The [facility] HospitalComment on above:Performed By: #### CBC #### [facility] [address] [place] [address] Dr. Brady Solis (RBC) [Mass/Vol]33.7 g/mOZkjmjf63.9-35.2The [facility] HospitalComment on above:Performed By: #### CBC #### [facility] [address] [place] [address] Dr. Brady Solis (RBC) [Entitic vol]83.5 mNIrmsfq94.0-94.0The [facility] HospitalComment on above:Performed By: #### CBC #### [facility] [address] [place] [address] Dr. Brady Chung #0.5 103/ulNormal0.3-0.8The [facility] HospitalComment on above:Performed By: #### CBC #### [facility] [address] [place] [address] Dr. Brady Lermaocytes/100 WBC (Bld)6.2 %Normal1.7-12.0The [facility] Comment on above:Performed By: #### CBC #### [facility] [address] [place] [address] Dr. Brady LivingstonUT #5.9 103/ulNormal1.4-6.5The [facility] HospitalComment on above:Performed By: #### CBC #### [facility] [address] [place] [address] Dr. Brady Livingstonutrophils/100 WBC (Bld)70.1 %Aovwtb17.0-75.0The [facility] HospitalComment on above:Performed By: #### CBC #### [facility] [address] [place] [address] Dr. Brady Olivalet mean volume (Bld) [Entitic vol]9.6 fLNormal9.5-13.5The [facility] HospitalComment on above:Performed By: #### CBC #### [facility] [address], [place] [address] Dr. Brady SandersPLT216 103/piUvlhlr697-004Fkz [facility] HospitalComment on above: Performed By: #### CBC #### [facility] [address] [place], [place] [address] Dr. Brady SandersRBC4.91 106/ulNormal4.70-6.10The [facility] HospitalComment on above:Performed By: #### CBC #### [facility] [address] [place], [place] [address] Dr. Brady SandersWBC8.4 103/ulNormal4.0-11.0The [facility] HospitalComment on above: Performed By: #### CBC #### [facility] [address] [place] [address] Dr. Brady SandersCT ABD/PELV W CONon [id number] ABD/PELV W CONEXAMINATION: CT ABD/PELV W CON HISTORY: Upper abdominal [...] calculi are present in the left kidney. Gastrointestinal/Peritoneum: No acute abnormality. Mild colonic diverticulosis is [...] Electronically authenticated by: KAVIN BRIONES Date: 2022-07-25 10:58NormalThe Parkwood HospitalLIPASEon 79-91-5035Wlnpyn [Catalytic activity/Vol]96.0 U/L Ftzvzj83.0-393.0The [facility] HospitalComment on above:Performed By: #### LIPA, JORDON, CMP #### [facility] [address] [place] [address] Dr. Brady Gutierrez 14(COMP METB)on 52-85-7871Fgefekm [Mass/Vol]3.4 g/dLNormal 3.4-5.0The [facility] HospitalComment on above:Performed By: #### LIPA, JORDON, CMP #### [facility] [address] [place] [address] Dr. Brady SandersAlbumin/Globulin [Mass ratio]0.9 {ratio}NormalThe [facility] HospitalComment on above:Performed By: #### LIPA, JORDON, CMP #### [facility] [address] [place] [address] Dr. Brady Contreras [Catalytic activity/Vol]88 U/TDsimxd71-055Ncq [facility] HospitalComment on above:Performed By: #### LIPA, JORDON, CMP #### [facility] [address] [place] [address] Dr. Brady Sheehan [Catalytic activity/Vol]27 U/ACqjzis03-17Zlw [facility] HospitalComment on above:Performed By: #### LIPA, JORDON, CMP #### [facility] [address] [place] [address] Dr. Brady Perdue gap [Moles/Vol]9.2 mmol/LNormalThe [facility] HospitalComment on above:Performed By: #### LIPA, JORDON, CMP #### [facility] [address] [place] [address] Dr. Brady Knight [Catalytic activity/Vol]18 U/IHhrtrw20-72Bic [facility] HospitalComment on above:Performed By: #### LIPA, JORDON, CMP #### [facility] [address] [place] [address] Dr. Yilan ChangBilirubin [Mass/Vol]0.4 mg/dLNormal0.2-1.0The [facility] Comment on above:Performed By: #### JORDON MALHOTRA, CMP #### [facility] [address] [place] [address] [address] Brady SandersCalcium [Mass/Vol]8.5 mg/dLNormal8.5-10.1The [facility] Comment on above:Performed By: #### JORDON MALHOTRA, CMP #### [facility] [address] [place] [address] Dr. Brady SandersChloride [Moles/Vol]103 mmol/LMmjxng40-382Qsg [facility] Comment on above:Performed By: #### JORDON MALHOTRA, CMP #### [facility] [address] [place] [address] Dr. Brady SandersCO2 [Moles/Vol]31.1 mmol/NGgunfv55.0-32.0The [facility] Comment on above:Performed By: #### JORDON MALHOTRA, CMP #### [facility] [address] [place] [address] Dr. Brady SandersCreatinine [Mass/Vol]0.79 mg/dLNormal0.70-1.30The [facility] HospitalComment on above:Performed By: #### JORDON MALHOTRA, CMP #### [facility] [address] [place] [address] Dr. Abreu ChangEGFR-AF AUSTRALIAN>60Normal>=60The [facility] HospitalComment on above:Performed By: #### JORDON MALHOTRA, CMP #### [facility] [address] [place] [address] Dr. Abreu ChangEGFR-NON AF AUSTRALIAN>60Normal>=60The [facility] HospitalComment on above:Performed By: #### JORDON MALHOTRA, CMP #### [facility] [address] [place] [address] Dr. Brady SandersGlobulin (S) [Mass/Vol]3.8 g/dLNormalThe [facility] HospitalComment on above:Performed By: #### LIPA, JORDON, CMP #### [facility] [address] [place] [address] [address] Brady SandersGlucose [Mass/Vol]140 mg/dLCritically hyem96-765Qak [facility] HospitalComment on above:Performed By: #### LIPA, JORDON, CMP #### [facility] [address] [place] [address] [address] Brady SandersPotassium [Moles/Vol]3.3 mmol/LCritically low3.5-5.1The [facility] HospitalComment on above:Performed By: #### LIPMaykel JORDON, CMP #### [facility] [address] [place] [address] [address] Brady SandersProtein [Mass/Vol]7.2 g/dLNormal6.4-8.2[facility] Comment on above:Performed By: #### LIPJORDON Brar, CMP #### [facility] [address] [place] [address] Dr. Brady SandersSodium [Moles/Vol]140 mmol/PJdecbp158-446Cww [facility] Comment on above:Performed By: #### LIPJORDON Brar, CMP #### [facility] [address] [place] [address] Dr. Brady SandersUrea nitrogen [Mass/Vol]10.0 mg/dLNormal7.0-18.0The [facility] HospitalComment on above:Performed By: #### ROSCOE JORDON, CMP #### [facility] [address] [place] [address] Dr. Brady SandersUrea nitrogen/Creatinine [Mass ratio]12.7 mg/mgNormalThe [facility] HospitalComment on above:Performed By: #### LIPJORDON Brar, CMP #### [facility] [address] [place] [address] Dr. Brady SandersNM HEPATOBILIARY SCAN W EFon [id number] HEPATOBILIARY SCAN W EF HIDA SCAN WITH GALLBLADDER EJECTION FRACTION HISTORY: Abdominal Pain. COMPARISON: Ultrasound 07/11/2022. METHOD: Following IV injection of 5. mCi of bukitureoo-87q-Dsbdwves, anterior imaging of the abdomen was acquired [...] Electronically authenticated by: KIM JARRETT Date: 2022-07-24 09:14NoKettering Health Washington TownshipUS SINGLE QUAD RT UPPERon [id number] SINGLE QUAD RT UPPER EXAMINATION: US SINGLE [...] Electronically authenticated by: MIKAYLA COVINGTON Date: 2022-07-11 11:55Bu[facility]rus Community HospitalGLYCOHEMOGLOBIN A1Con [id number] RECOMMENDATIONSEE BELOW NormalThe [facility] HospitalComva medical center on above:Result Comment: ADA RECOMMENDED LIMIT 4.0 - 6.0 ADA THERAPEUTIC TARGET < 7.0 ACTION SUGGESTED > 7.0Performed By: #### A1C #### [facility] [address] [place] [address] [address] Brady SandersGlucose [Mass/Vol]143 mg/dLBucyrus Community HospitalComment on above:Performed By: #### A1C #### [facility] [address] [place], [place] [address] Dr. Brady SandersHbA1c (Bld) [Mass fraction]6.6 %Critically high4.5-6.2The [facility] HospitalComment on above:Performed By: #### A1C #### [facility] [address] [place] [address] [address] Brady BarraganVID + FLU Quick Testingon [id number]-CoV-2 (COVID-19) RNA ADELINA+probe Ql (Unsp spec)PositiveNortSt. Christopher's Hospital for Children DZZOM Other COVID + FLU Quick TestingNegativeNort PetMD Other CBC AUTO DIFFon [id number] #0.0 103/ulNormal 0.0-0.1The [facility] HospitalComment on above:Performed By: #### CBC #### [facility] [address] [place] [address] Dr. Brady SandersBasophils/100 WBC (Bld)0.5 %Normal0.2-2.0The [facility] Comment on above:Performed By: #### CBC #### [facility] [address] [place] [address] Dr. Brady Farrar #0.1 103/ulNormal0.0-0.7The [facility] HospitalComment on above: Performed By: #### CBC #### [facility] [address] [place] [address] Dr. Brady Summersosinophils/100 WBC (Bld)1.8 %Normal0.9-7.0The [facility] Comment on above:Performed By: #### CBC #### [facility] [address] [place] [address] Dr. Brady Summersrythrocyte distribution width (RBC) [Ratio]13.5 %Qonier38.0-15.0 The [facility] HospitalComment on above:Performed By: #### CBC #### [facility] [address] [place] [address] Dr. Brady SandersHematocrit (Bld) [Volume fraction]46.5 %Xuvzfk82.0-54.0The [facility] HospitalComment on above:Performed By: #### CBC #### [facility] [address] [place] [address] Dr. Brady SandersHemoglobin (Bld) [Mass/Vol]15.6 g/uKHolmjy18.0-18.0The [facility] on above:Performed By: #### CBC #### [facility] [address] [place] [address] Dr. Brady James #0.02 10e3/ulNormal0.00-0.03The [facility] HospitalComment on above:Performed By: #### CBC #### [facility] [address] [place] [address] Dr. Brady James %0.3 %Normal0.0-0.5The [facility] on above: Performed By: #### CBC #### [facility] [address] [place] [address] Dr. Brady Sofia #1.8 103/ulNormal1.2-3.8The [facility] HospitalComment on above:Performed By: #### CBC #### [facility] [address] [place] [address] Dr. Brady Renehocytes/100 WBC (Bld)22.3 %Wzbqrz08.5-60.0The [facility] HospitalComva medical center on above:Performed By: #### CBC #### [facility] [address] [place] [address] Dr. Brady ValverdeUAL DIFF REQNONormalThe [facility] HospitalComment on above: Performed By: #### CBC #### [facility] [address] [place] [address] Dr. Brady Solis (RBC) [Entitic mass]28.0 xpAmzhge21.9-34.0The [facility] HospitalComment on above:Performed By: #### CBC #### [facility] [address] [place] [address] Dr. Brady Solis (RBC) [Mass/Vol]33.5 g/kVJkxvim65.9-35.2The [facility] HospitalComment on above:Performed By: #### CBC #### [facility] [address] [place] [address] [address] Brady SolisV (RBC) [Entitic vol]83.3 mKArzvlu31.0-94.0The [facility] HospitalComment on above:Performed By: #### CBC #### [facility] [address] [place] [address] Dr. Brady Chung #0.5 103/ulNormal0.3-0.8The [facility] HospitalComment on above:Performed By: #### CBC #### [facility] [address] [place] [address] Dr. Brady Lermaocytes/100 WBC (Bld)6.1 %Normal1.7-12.0The [facility] on above:Performed By: #### CBC #### [facility] [address] [place] [address] Dr. Brady Beth #5.4 103/ulNormal1.4-6.5The [facility] HospitalComment on above:Performed By: #### CBC #### [facility] [address] [place] [address] Dr. Brady Livingstonutrophils/100 WBC (Bld)69.0 %Tihnhv95.0-75.0The [facility] HospitalComment on above:Performed By: #### CBC #### [facility] [address] [place] [address] Dr. Brady Olivalet mean volume (Bld) [Entitic vol]10.3 fLNormal9.5-13.5The [facility] Hospitalment on above:Performed By: #### CBC #### [facility] [address] [place] [address] Dr. Brady SandersPLT230 103/iuWtmfcq320-287Fan [facility] HospitalComment on above: Performed By: #### CBC #### [facility] [address] [place] [address] Dr. Brady SandersRBC5.58 106/ulNormal4.70-6.10The [facility]na HospitalComment on above:Performed By: #### CBC #### [facility] [address] [place] [address] [address] Brady SandersWBC7.9 103/ulNormal4.0-11.0The [facility] HospitalComva medical center on above: Performed By: #### CBC #### [facility] [address] [place] [address] [address] Brady SandersGLYCOHEMOGLOBIN A1Con 78-73-1404DYE RECOMMENDATIONSEE BELOWSt. Mary'S Medical CenterComva medical center on above:Result Comment: ADA RECOMMENDED LIMIT 4.0 - 6.0 ADA THERAPEUTIC TARGET < 7.0 ACTION SUGGESTED > 7.0Performed By: #### A1C #### [facility] [address] [place] [address] Dr. Brady SandersGlucose [Mass/Vol]200 mg/dLNoKettering Health Washington TownshipComment on above:Performed By: #### A1C #### [facility] [address] [place] [address] Dr. Brady SandersHbA1c (Bld) [Mass fraction]8.6 %Critically high4.5-6.2[facility] on above:Performed By: #### A1C #### [facility] [address] [place] [address] Dr. Brady SandersLIPID PROFILEon 69-79-8014UCUB-HDL RATIO NORMSEE [facility] on above:Result Comment: 3.3 - 4.4 LOW RISK 4.4 - 7.1 AVERAGE RISK 7.1 - 11.0 MODERATE RISK >11.0 HIGH RISKPerformed By: #### LIPA JORDON, CMP #### [facility] [address] [place] [address] [address] Brady SandersCholesterol [Mass/Vol]136 mg/dLNormal<=200The [facility] Comment on above:Performed By: #### LIPA, JORDON, CMP #### [facility] [address] [place] [address] [address] Brady SandersCholesterol in HDL [Mass/Vol]26 mg/dLCritically unz98-84Ljn [facility] on above:Performed By: #### LIPAJORDON, CMP #### [facility] [address] [place] [address] [address] Brady SandersCholesterol in LDL [Mass/Vol]77.2 mg/dLMercy Health Tiffin Hospital on above:Performed By: #### LIPA JORDON, CMP #### [facility] [address] [place] [address] [address] Brady Addison.total/Cholesterol in HDL [Mass ratio]5.2 {ratio} NormalOhioHealth Doctors Hospital on above:Performed By: #### LIPMaykel JORDON, CMP #### [facility] [address] [place] [address] [address] Brady Mccall NORMAL> or = 60 mg/dl - LOW CARDIOVASCULAR RISK <40 mg/dl - HIGH CARDIOVASCULAR RISKNoKettering Health Washington TownshipComva medical center on above:Performed By: #### JORDON MALHOTRA, CMP #### [facility] [address] [place] [address] Dr. Brady Reyes CALC NORMALSEE BELOWBucyrus Community HospitalComva medical center on above:Result Comment: <100 mg/dl OPTIMAL 100 - 129 mg/dl NEAR OR ABOVE OPTIMAL 130 - 159 mg/dl BORDERLINE HIGH 160 - 189 mg/dl HIGH >190 mg/dl VERY HIGH Performed By: #### LIPJORDON Brar, CMP #### [facility] [address] [place] [address] [address] Brady SandersTriglyceride [Mass/Vol]164 mg/dLCritically high<=150The [facility] on above:Performed By: #### LIPA JORDON, CMP #### [facility] [address] [address] [address] Brady SandersVLDL CALC32.8 mg/dLNoKettering Health Washington TownshipComva medical center on above: Performed By: #### LIPA, JORDON, CMP #### [facility] [address] [address] [address] Brady SandersMICROALBUMIN, STREETER URon 69-96-0753rSSE<1.3Normal<=30.0The [facility] HospitalComment on above:Performed By: #### LIPA, JORDON, CMP #### [facility] [address] [place] [address] Dr. Brady Gutierrez 14(COMP METB)on 99-91-8233Qdobnfa [Mass/Vol]3.8 g/dLNormal 3.4-5.0The [facility] HospitalComment on above:Performed By: #### LIPA, JORDON, CMP #### [facility] [address] [place] [address] Dr. Brady SandersAlbumin/Globulin [Mass ratio]1.0 {ratio}NormalThe [facility] HospitalComment on above:Performed By: #### LIPA, JORDON, CMP #### [facility] [address] [place] [address] Dr. Brady Contreras [Catalytic activity/Vol]102 U/ACmqqgm51-828Oqs [facility] HospitalComment on above:Performed By: #### LIPA JORDON, CMP #### [facility] [address] [place] [address] Dr. Brady Sheehan [Catalytic activity/Vol]41 U/AVlpkjb97-72Dyd [facility] HospitalComment on above:Performed By: #### KAVYAA, JORDON, CMP #### [facility] [address] [place] [address] Dr. Brady Perdue gap [Moles/Vol]14.7 mmol/LNormalThe [facility] Comment on above:Performed By: #### LIPA, JORDON, CMP #### [facility] [address] [place] [address] Dr. Brady SandersAST [Catalytic activity/Vol]24 U/GUlniwt37-48Iio [facility] HospitalComment on above:Performed By: #### LIPA, JORDON, CMP #### [facility] [address] [place] [address] Dr. Brady SandersBilirubin [Mass/Vol]0.4 mg/dLNormal0.2-1.0The [facility] Comment on above:Performed By: #### LIPA, JORDON, CMP #### [facility] [address] [address] [address] Brady SandersCalcium [Mass/Vol]8.8 mg/dLNormal8.5-10.1The [facility] Comment on above:Performed By: #### JORDON MALHOTRA, CMP #### [facility] [address] [address] [address] Brady SandersChloride [Moles/Vol]99 mmol/LZoxqcb17-105Wxu [facility] Comment on above:Performed By: #### JORDON MALHOTRA, CMP #### [facility] [address] [address] [address] Brady SandersCO2 [Moles/Vol]26.8 mmol/RNaabga97.0-32.0The [facility] Comment on above:Performed By: #### JORDON MALHOTRA, CMP #### [facility] [address] [address] [address] Brady SandersCreatinine [Mass/Vol]1.00 mg/dLNormal0.70-1.30The [facility] HospitalComment on above:Performed By: #### JORDON MALHOTRA, CMP #### [facility] [address] [place] [address] Dr. Brady SummersGFR-AF AUSTRALIAN>60Normal>=60The [facility] HospitalComment on above:Performed By: #### JORDON MALHOTRA, CMP #### [facility] [address] [address] [address] Brady Wilson-NON AF AUSTRALIAN>60Normal>=60The [facility] HospitalComment on above:Performed By: #### JORDON MALHOTRA, CMP #### [facility] [address] [address] [address] Brady SandersGlobulin (S) [Mass/Vol]3.7 g/dLNormalThe [facility] HospitalComment on above:Performed By: #### LIPJORDON Brar, CMP #### [facility] [address] [address] [address] Brady SandersGlucose [Mass/Vol]317 mg/dLCritically fkjd04-883Cem [facility] HospitalComment on above:Performed By: #### JORDON MALHOTRA, CMP #### [facility] [address] [address] [address] Brady SandersPotassium [Moles/Vol]3.5 mmol/LNormal3.5-5.1The [facility] Comment on above:Performed By: #### JORDON MALHOTRA, CMP #### [facility] [address] [place] [address] Dr. Brady SandersProtein [Mass/Vol]7.5 g/dLNormal6.4-8.2[facility] Comment on above:Performed By: #### JORDON MALHOTRA, CMP #### [facility] [address] [place] [address] Dr. Brady SandersSodium [Moles/Vol]137 mmol/AQvkruv249-374Mrq [facility] Comment on above:Performed By: #### JORDON MALHOTRA, CMP #### [facility] [address] [place] [address] Dr. Brady SandersUrea nitrogen [Mass/Vol]11.0 mg/dLNormal7.0-18.0The [facility] HospitalComment on above:Performed By: #### JORDON MALHOTRA, CMP #### [facility] [address] [place] [address] Dr. Brady SandersUrea nitrogen/Creatinine [Mass ratio]11.0 mg/mgNormalThe [facility] HospitalComment on above:Performed By: #### JORDON MALHOTRA, CMP #### [facility] [address] [place] [address] Dr. Brady SandersUrinalysis - AUTOMATEDon 58-93-2731Qwkciirkcx (U)clearNoKobojo Other Bilirubin Ql (U)NegativeDatometry Other Color (U)medium tellowNsaint john's breech regional medical center PetMD Other Glucose Ql (U)>1000NoKobojo Other Hemoglobin Ql (U)traceDatometry Other Ketones Ql (U)NegativeDatometry Other Leukocyte esterase Test strip Ql (U)traceDatometry Other Nitrite Ql (U)Circlefive Other pH (U)5.5 [pH]Datometry Other Protein Ql (U)NegativeDatometry Other Specific gravity (U) [Rel density]1.015Nosaint john's regional health center Pet[facility] Other Urobilinogen (U) [Mass/Vol]0.2 mg/dLRedCap PetMD Other Urinalysis - AUTOMATEDKobojo Other Urine Cultureon 85-42-7710Ihjhgimw identified Cx Nom (U)Reason for Exam Dysuria Urine >100,000 colonies/ml mixed bacterial skin contaminants 2 Days PERFORMED BY: [place] [id number] PATHOLOGIST RECREATION CLERK TIA CORDOVA M.D.[facility] [facility] Boardman HospitalComment on above: Performed By: #### CUU #### [place] [address] USABacteria identified Cx Nom (U)Datometry Other Quick Fluon 52-24-6207ZNZOA Ab CF (S) [Titer]Negative Datometry Other FLUBV Ab CF (S) [Titer]NegativeDatometry Other Vital Signs Date TimeVital SignValuePerforming QiwkemsbbHhldrkue97-01-1913 17:30-0500 Diastolic blood iduvfjud67 mm[Hg]Jenn Finney PLANT MAINTENANCE SUPERVISOR Work Phone: [facility]11-09-2025 17:30-0500Heart rate74 /minJenn Barry APRN - PLANT MAINTENANCE SUPERVISOR Work Phone: [facility]11-09-2025 17:30-0500 Respiratory rate16 /minJenn Barry APRN - PLANT MAINTENANCE SUPERVISOR Work Phone: [facility]11-09-2025 17:30-0827IrT9% (BldA) [Mass fraction]95 %Jenn Barry NIB FINISHER - PLANT MAINTENANCE SUPERVISOR Work Phone: [facility]11-09-2025 17:30-0500Systolic blood ihinwzbq413 mm[Hg]Jenn Barry APRN - PLANT MAINTENANCE SUPERVISOR Work Phone: [facility]11-09-2025 14:51-0500Body demvme187.4 cmLmark Barry NIB FINISHER - PLANT MAINTENANCE SUPERVISOR Work Phone: [facility]11-09-2025 14:51-0500Body mass index (BMI) [Ratio]40.37 kg/m2Jenn Barry APRN - PLANT MAINTENANCE SUPERVISOR Work Phone: [facility]11-09-2025 14:51-0500Body mqnmycunhlq44.1 [degF]Jenn Barry NIB FINISHER - PLANT MAINTENANCE SUPERVISOR Work Phone: [facility]11-09-2025 14:51-0500Body gjbacg863.8 kgJenn Barry APRN - PLANT MAINTENANCE SUPERVISOR Work Phone: [facility]11-04-2025 08:31-0500Body wgwzgrcyvvo44.1 [degF]Yves Jose MD Work Phone: [facility] CenterKTK GroupRiverside Doctors' Hospital WilliamsburgTjrpkl39-68-9402 08:31-0500Diastolic blood hlamkwgb42 mm[Hg]Yves Jose MD Work Phone: [facility] ScaleOut SoftwareRiverside Doctors' Hospital WilliamsburgComment on above:pt aware of BP and states he wants will monitor at dibi91-19-0411 08:31-0500Respiratory rate 20 /minThchucho Jose MD Work Phone: [employer]11-04-2025 08:31-5992ToS4% (BldA) [Mass fraction]93 %Yves Jose MD Work Phone: [employer]11-04-2025 08:31-0500Systolic blood kbnwmbqi023 mm[Hg]Yves Jose MD Work Phone: [employer] [facility] HospitalComment on above:pt aware of BP and states he wants will monitor at tepg00-15-3482 07:40-0500Body mass index (BMI) [Ratio]40.37 kg/m0MdwuvYves Jose MD Work Phone: [employer]11-04-2025 07:40-0500Body vnimyb688.8 kgYves Jose MD Work Phone: [employer]11-04-2025 07:40-0500Heart mruo682 /minYves Jose MD Work Phone: [employer]10-29-2025 14:40-0400Body behdty537.42 Adarshisa Asha PLANT MAINTENANCE SUPERVISOR-C Work Phone: [facility]10-29-2025 14:40-0400 Body mass index (BMI) [Ratio]40.4 kg/m2Jenn Barry PLANT MAINTENANCE SUPERVISOR-C Work Phone: [facility]10-29-2025 14:40-0400 Body nyyipbbwnws23.1 [degF]Jenn Barry PLANT MAINTENANCE SUPERVISOR-C Work Phone: [facility]10-29-2025 14:40-0400 Body rebzrk992.02 kgLuannesa Asha PLANT MAINTENANCE SUPERVISOR-C Work Phone: [facility]10-29-2025 14:40-0400 Diastolic blood cglmrlqy80 mm[Hg]Jenn Aichholz PLANT MAINTENANCE SUPERVISOR-C Work Phone: [facility]10-29-2025 14:40-0400 Heart rate94 /Ruben Rinaldiholz PLANT MAINTENANCE SUPERVISOR-C Work Phone: [facility]10-29-2025 14:40-0400 Respiratory rate16 /Ruben Rinaldiholz PLANT MAINTENANCE SUPERVISOR-C Work Phone: [facility]10-29-2025 14:40-0400 SaO2% (BldA) [Mass fraction]97 %Jenn Rinaldiholz PLANT MAINTENANCE SUPERVISOR-C Work Phone: [facility]10-29-2025 14:40-0400 Systolic blood xlgpquqt319 mm[Hg]Jenn Yez PLANT MAINTENANCE SUPERVISOR-C Work Phone: [facility]08-07-2025 10:18-0400 Heart rate62 /Irina Lovell MD Work Phone: [facility]08-07-2025 10:18-0400 Respiratory rate11 /Irina Lovell MD Work Phone: [facility]08-07-2025 10:18-3889AiI3% (BldA) [Mass fraction]93 %Morgan Lovell MD Work Phone: [facility]08-07-2025 10:15-0400Diastolic blood mm[Hg]Morgan Lovell MD Work Phone: [facility]08-07-2025 10:15-0400Systolic blood iayfdzqm665 mm[Hg]Morgan Lovell MD Work Phone: [facility]08-07-2025 09:45-0400Body kxhudrsejkv42.01 [degF]Morgan Lovell MD Work Phone: [facility]07-29-2025 11:06-0400Body ewvuwj150.4 cmMorgan Lovell MD Work Phone: [facility]07-29-2025 11:06-0400Body mass index (BMI) [Ratio]41.16 kg/t5VhtbtamMorgan Lovell MD Work Phone: [facility]07-29-2025 11:06-0400Body svqhpy990.52 kgMorgan Lovell MD Work Phone: [facility]07-09-2025 08:36-0400Body mass index (BMI) [Ratio]41.16 kg/m2Jenn Barry PLANT MAINTENANCE SUPERVISOR Work Phone: [facility] ChildrenQbgarhsucu80-60-0038 08:36-0400Body temperature 98.1 [degF]Jenn Barry PLANT MAINTENANCE SUPERVISOR Work Phone: [facility] ChildrenLadgjvwuuu12-89-0971 08:36-0400Body ihyoks903.52 kgJenn Barry PLANT MAINTENANCE SUPERVISOR Work Phone: [facility] ChildrenWehxvxcjld99-30-7608 08:36-0400Diastolic blood mm[Hg]Jenn Asha PLANT MAINTENANCE SUPERVISOR Work Phone: [facility] ChildrenQtjwpanvxk00-39-9813 08:36-0400Heart rate90 /min Jenn Asha PLANT MAINTENANCE SUPERVISOR Work Phone: [facility] ChildrenMgxnuhrjwz62-09-2113 08:36-0400Respiratory rate20 /minJenn Barry PLANT MAINTENANCE SUPERVISOR Work Phone: [facility] ChildrenJagecutvoz02-93-4464 08:36-1352SoL9% (BldA) [Mass fraction]94 %Jenn Asha PLANT MAINTENANCE SUPERVISOR Work Phone: [facility] ChildrenKiygnumtpz88-62-1032 08:36-0400Systolic blood cjaykhmf02 mm[Hg]Jenn Asha PLANT MAINTENANCE SUPERVISOR Work Phone: [facility] ChildrenJnzsicuvmi51-17-4322 09:59-0400Diastolic blood mm[Hg]Jenn Asha PLANT MAINTENANCE SUPERVISOR Work Phone: [facility] ChildrenRpnvxtiwap23-13-7896 09:59-0400Systolic blood apsmmdej186 mm[Hg]Jenn Barry PLANT MAINTENANCE SUPERVISOR Work Phone: [facility] ChildrenMuqydivpzb47-02-4963 09:25-0400Body mass index (BMI) [Ratio]41.59 kg/m2Jenn Barry PLANT MAINTENANCE SUPERVISOR Work Phone: [facility] ChildrenRhlesuajrn20-76-7851 09:25-0400Body temperature 97.81 [degF]Jenn Barry PLANT MAINTENANCE SUPERVISOR Work Phone: [facility] ChildrenRwinzrhhjr93-28-5629 09:25-0400Body mycxgi719.97 kgJenn Barry PLANT MAINTENANCE SUPERVISOR Work Phone: [facility] ChildrenIfxilzmvfc38-02-8471 09:25-0400Heart rate94 /min Jenn Barry PLANT MAINTENANCE SUPERVISOR Work Phone: [facility] ChildrenImmvqdwltn43-05-5796 09:25-0400Respiratory rate18 /minLisa Barry PLANT MAINTENANCE SUPERVISOR Work Phone: [facility] ChildrenDicavsutwj13-41-6576 09:25-6810JqX4% (BldA) [Mass fraction]96 %Jenn Barry PLANT MAINTENANCE SUPERVISOR Work Phone: [facility] ChildrenZrwrorvayv04-79-9648 09:07-0400Body mass index (BMI) [Ratio]42.35 kg/k3Iuiogwdcmalik Palomarestrick PLANT MAINTENANCE SUPERVISOR Work Phone: [facility] ChildrenYemvyagtve79-35-0628 09:07-0400Body temperature 97.3 [degF]Anna White PLANT MAINTENANCE SUPERVISOR Work Phone: [facility] ChildrenJjagoeqiun52-25-4719 09:07-0400Body hysdcq983.6 kgBrmalik White PLANT MAINTENANCE SUPERVISOR Work Phone: [facility] ChildrenVwmlacktyq33-29-6821 09:07-0400Diastolic blood cwyatvfj27 mm[Hg]Anna White PLANT MAINTENANCE SUPERVISOR Work Phone: [facility] ChildrenGmsdwluems01-35-9068 09:07-0400Heart rate85 /min Anna Palomarestrick PLANT MAINTENANCE SUPERVISOR Work Phone: [facility] ChildrenIyzwypzoub66-17-9992 09:07-0989RvZ9% (BldA) [Mass fraction]95 %nAna Rojaspatrick PLANT MAINTENANCE SUPERVISOR Work Phone: NOThree Rivers HealthcareWfqhptthlf05-64-1576 09:07-0400Systolic blood ojifmtxd860 mm[Hg]Anna Palomarestrick PLANT MAINTENANCE SUPERVISOR Work Phone: [facility] ChildrenHnmnmyqtln31-74-2547 14:10-0400Heart rate67 /min Carlito Leung DO Work Phone: [facility] Launchr07-15-2024 14:10-0400 Respiratory rate14 /minDkaiian Leung DO Work Phone: [facility]ENTERIndigoVision [facility]ENTERKeystone TechnologyZBLTEW10-28-4930 14:10-1548JnY1% (BldA) [Mass fraction]94 %Carlito Leung DO Work Phone: [facility] [employer] [facility]ENTERKeystone TechnologyZIDPYR28-15-3525 14:00-0400Diastolic blood xmrnkero40 mm[Hg]Carlito Leung DO Work Phone: [facility]ENTERIndigoVision [facility] CENTERKeystone TechnologyHZTKWV29-15-3752 14:00-0400Systolic blood hbgxxedo248 mm[Hg]Carlito Leung DO Work Phone: [facility]ENTERIndigoVision [facility] CENTERKeystone TechnologyAFGAUI82-16-6913 13:15-0400Body vuuuoakuqde08.11 [degF]Carlito Leung DO Work Phone: [facility] Launchr07-09-2024 13:06-0400Body .4 cmDyclarice Leung DO Work Phone: [facility] [employer] [facility]ENTERKeystone TechnologyYELLLQ06-79-5354 13:06-0400Body mass index (BMI) [Ratio]43.54 kg/u2WqbhxCarlito Leung DO Work Phone: [facility] [employer] [facility]ENTERKeystone TechnologyWBFULP23-18-1497 13:06-0400Body ixufpr622.69 kgDyclarice Leung DO Work Phone: [facility]12-21-2022 18:15-0500Body ctmlcu994.88 Jojo Cannon Other [employer] Other 12-21-2022 18:15-0500Body mass index (BMI) [Ratio] 47.46 kg/m0Jwszwcvalerie Cannon Other [employer] Other 12-21-2022 18:15-0500Body dayfumhqetw83 [degF]Mamie Sweetmond Other [employer] Other 12-21-2022 18:15-0500Body zmafiz015.76 kgMamie Cannon Other [employer] Other 12-21-2022 18:15-0500Respiratory rate18 /minMamie Cannon Other [employer] Other 12-21-2022 18:15-4291OaM2% (BldA) [Mass fraction]94 % Mamie Cannon Other [employer] Other 07-20-2022 10:30-0400Body cywgvd720.88 Jojo Cannon Other [employer] Other 07-20-2022 10:30-0400Body mass index (BMI) [Ratio] 46.11 kg/k6Wiqmmevalerie Cannon Other [employer] Other 07-20-2022 10:30-0400Body edftwltwljn40.1 [degF]Mamie Sweetmond Other [employer] Other 07-20-2022 10:30-0400Body .22 kgMamie Cannon Other [employer] Other 07-20-2022 10:30-0400Diastolic blood rsrzlexx38 mm[Hg] Mamie Cannon Other [employer] Other 07-20-2022 10:30-0400Respiratory rate20 /minMamie Cannon Other [employer] Other 07-20-2022 10:30-1585VpD6% (BldA) [Mass fraction]98 % Mamie Sweetmond Other [employer] Other 07-20-2022 10:30-0400Systolic blood kzbhzpvo266 mm[Hg] Mamie Kassandra Other [employer] Other 2022 10:00-0500Body .88 cmAjuancho Dimas Other [employer] Other 2022 10:00-0500Body mass index (BMI) [Ratio] 49.28 kg/b9UxjbyAlexandra Dimas Other [employer] Other 2022 10:00-0500Body enfvzednecw35.4 [degF]Alexandra Dimas Other [employer] Other 2022 10:00-0500Body akfkbw750.84 kgAlexandra Dimas Other [employer] Other 2022 10:00-0500Diastolic blood jvynbinq30 mm[Hg] Alexandra Dimas Other [employer] Other 2022 10:00-0500Respiratory rate18 /minAmbjennifer Dimas Other [employer] Other 2022 10:00-9925JmK6% (BldA) [Mass fraction]96 % Alexandra Dimas Other [employer] Other 2022 10:00-0500Systolic blood mm[Hg] Alexandra Wing Other [employer] Other 11-29-2021 10:00-0500Body ydbdck103.88 cmAmbjennifer Gill Other [employer] Other 11-29-2021 10:00-0500Body mass index (BMI) [Ratio] 48.82 kg/j8NuipcAlexandra Gill Other [employer] Other 11-29-2021 10:00-0500Body .4 [degF]Alexandra Hannadelfinasusan Other [employer] Other 11-29-2021 10:00-0500Body kcubzg620.3 kgAlexandra Gill Other [employer] Other 11-29-2021 10:00-5359ZkN2% (BldA) [Mass fraction]95 % Alexandra Gill Other [employer] Other Encounters Encounter DateEncounter TypeCare ProviderFacilityStart: 01-30-2025 End: 45-66-6531Tqzcjiwsk department patient visitJENN Davison [facility] HospitalComment on above:Acute maxillary sinusitis, recurrence not specified (Primary Dx); Acute cough; WheezingStart: 01-25-2025 End: 37-60-9658Pzaaccfio department patient visitYves Jose MD Work Phone: [facility] DepartmentComment on above: Bronchitis (Primary Dx); Acute coughStart: 01-20-2025 End: 32-41-4342kfuzhpwjfpPPCR J. AICKyaraCarleylincoln Gould HospitalStart: 01-20-2025 End: 03-86-7895Nnwxcrxhnf hospital [facility]Am[facility] Schedule [facility] LABComment on above:ArrivedStart: 01-19-2025 End: 66-18-7331lvlflqgykgXflp J Aichholz PLANT MAINTENANCE SUPERVISOR-C Work Phone: [facility] ClydeStart: 01-19-2025 End: 77-34-3674Ncotwjf encounter procedureJenn Barry PLANT MAINTENANCE SUPERVISOR-C-[facility] [place] Work Phone: Start: 11-15-2024 End: 35-19-5425Stwvghvgp Result EncounterLisa Barry PLANT MAINTENANCE SUPERVISOR Work Phone: noms External Department UnsolicitedStart: 11-15-2024 End: 98-50-9748Dpvkudkxz Result EncounterLisa Barry PLANT MAINTENANCE SUPERVISOR Work Phone: noms External Department UnsolicitedStart: 11-15-2024 End: 29-05-9148mgxgeyjzfaXDQS J. AICKyaraJose Alberto Gould HospitalStart: 11-15-2024 End: 42-07-3155Ggcxjheqhq hospital visit by physicianAm[facility] Schedule [facility] LABComment on above:ArrivedStart: 10-28-2024 End: 47-24-4599Cvkpthcgo Result EncounterGeneric External Data ProviderNOMS External Department UnsolicitedStart: 10-28-2024 End: 39-27-9271Egiovtuxc Result EncounterGeneric External Data ProviderNOMS External Department UnsolicitedStart: 10-28-2024 End: 60-04-9725ssujulegefSCYKBRVEstella Gamino Sam HospitalStart: 10-28-2024 End: 83-37-1697Lwxyesmqpd hospital visit by physicianMorgan Lovell MD Work Phone: mZ EndoscopyComment on above:Positive colorectal cancer screening using Cologuard testStart: 10-05-2024 End: 94-58-5408xvuctxripoCCNQN [facility] HospitalStart: 10-05-2024 Encounter for other [facility]proced[facility] examinationMedina [facility] Start: 10-05-2024 End: 49-61-7803Ebstmqe encounter statusMthz [facility] Work Phone: Start: 10-05-2024 End: 15-38-6790Xewybipfab hospital visit by physicianMt Ekg ScheduleROCKEFE[facility] Comment on above:Pre-op testingStart: 09-29-2024 End: 57-63-2983Wrexdh flowsheetLisa Aichholz PLANT MAINTENANCE SUPERVISOR Work Phone: noms [facility] FMStart: 09-29-2024 End: 42-81-5906Kgkvfc flowsheetLisa Aichholz PLANT MAINTENANCE SUPERVISOR Work Phone: noms CW FMStart: 09-29-2024 End: 15-01-5082Xlhcdx outpatient visit 25 minutesLisa Kristopherhholz PLANT MAINTENANCE SUPERVISOR Work Phone: noms [facility] FMComment on above:Type 2 diabetes mellitus without complication, without long-term current use of insulin (HCC) (Primary Dx); Essential hypertension ; Morbid (severe) obesity due to excess calories (CMS-HCC); JAN (generalized anxiety disorder) ; Depression with anxiety; Type 2 diabetes mellitus with other specified complication (HCC); Hyperlipidemia, unspecified ; Positive colorectal cancer screening using Cologuard test; Hyperuricemia; Acute bilateral low back pain with right-sided sciatica; Pain of right heelStart: 09-29-2024 End: 73-79-5181xlogwvvvvzTYUM AICHHOLZNot AvailableStart: 09-02-2024 End: 00-51-8320IxjqpqKuoy Kristopherkyaraewa PLANT MAINTENANCE SUPERVISOR Work Phone: noms CWM FMComment on above:Dyslipidemia (Primary Dx) DyslipidemiaStart: 09-01-2024 End: 86-44-9777Cheizjgoe Result EncounterJenn Rinaldiewa PLANT MAINTENANCE SUPERVISOR Work Phone: noms External Department UnsolicitedStart: 09-01-2024 End: 03-72-7798Kgjqprijs Result EncounterLisa Rinaldiewa PLANT MAINTENANCE SUPERVISOR Work Phone: noms External Department UnsolicitedStart: 09-01-2024 End: 04-77-6270dqcxaddhqgIYVMEvangelista Light [facility] HospitalStart: 09-01-2024 End: 90-85-1776Xeewetxuhk hospital visit by Chica Finney PLANT MAINTENANCE SUPERVISOR Work Phone: [facility] LABStart: 06-29-2024 End: 84-48-8750Rxhytp flowssusanJenn Barry PLANT MAINTENANCE SUPERVISOR Work Phone: noms CWM FMStart: 06-29-2024 End: 36-88-5241Firnjg flowssusanJenn Summerskyaraewa PLANT MAINTENANCE SUPERVISOR Work Phone: noms CWM FMStart: 06-29-2024 End: 72-33-7286cduvdicphuIGAK AICHHOLZNot AvailableStart: 06-29-2024 End: 57-13-2045Pvjpoo outpatient visit 25 minutesJenn Barry PLANT MAINTENANCE SUPERVISOR Work Phone: NOJS CWM FMComment on above:Obstructive sleep apnea syndrome (Primary Dx); Morbid (severe) obesity due to excess calories (CMS/HCC); Body mass index (BMI) 40.0-44.9, adult (CMS/HCC); Essential hypertension (CMS/HCC); Type 2 diabetes mellitus without complication, without long-term current use of insulin; Depression with anxiety; Dyslipidemia (CMS/HCC); Hyperuricemia; Screening for prostate cancer; JAN (generalized anxiety disorder) ([facility]/HCC); Acute bilateral low back pain with right-sided sciaticaStart: 05-06-2024 End: 54-40-8213GaxaqgGffgeixj Fitzpatrick PLANT MAINTENANCE SUPERVISOR Work Phone: noms CWM FMComment on above:Essential hypertension (CMS/HCC)Start: 03-25-2024 End: 19-45-3162FngeaqTqtxbpgnParas White PLANT MAINTENANCE SUPERVISOR Work Phone: noms CWM FMComment on above:Essential hypertension (CMS/HCC)Start: 03-23-2024 End: 07-23-5567MbbigjXxhctrnbParas White PLANT MAINTENANCE SUPERVISOR Work Phone: noms CWM FMComment on above:Type 2 diabetes mellitus without complication, without long-term current use of insulin (CMS/HCC); JAN (generalized anxiety disorder) ([facility]/HCC)Start: 03-22-2024 End: 93-84-1774osxjgptldsEsfgfpn Vytautas Giedrarobert MDFacility:[facility] [place] Start: 03-08-2024 End: 92-07-7595WqsqdzNxlcuvzdNelida White PLANT MAINTENANCE SUPERVISOR Work Phone: noms CWM FMComment on above:Essential hypertension ([facility]/HCC)Type 2 diabetes mellitus without complication, without long-term current use of insulin ([facility]/HCC); JAN (generalized anxiety disorder) ([facility]/HCC)Start: 03-08-2024 End: 62-35-7981xcsieywibkTikmggf Vytautas Giedraitis MDFacility:[facility] [place] Start: 02-23-2024 End: 08-54-3199syekqqzelsOctufos Vytautas Giedraitis MDFacility:[facility] [place] Start: 01-20-2024 End: 69-75-8224TvzrsdRgteElodia WATTS CWM FMComment on above:Type 2 diabetes mellitus without complication, without long-term current use of insulin ([facility]/HCC)Start: 01-05-2024 End: 01-54-8877Ulcsrh Xavier White PLANT MAINTENANCE SUPERVISOR Work Phone: noms CWM FMComment on above:Type 2 diabetes mellitus without complication, without long-term current use of insulin (CMS/HCC) (P rimary Dx)Start: 12-30-2023 End: 21-45-4618Gwqyvo flowsEmy Palomarestrick PLANT MAINTENANCE SUPERVISOR Work Phone: noms CWM FMStart: 12-30-2023 End: 11-25-4509Xprlpz flowsheetAnna Palomarestrick PLANT MAINTENANCE SUPERVISOR Work Phone: noms CWM FMStart: 12-30-2023 End: 84-38-0010Ejtfml outpatient visit 15 minutesBrmalik Rojaspatrick PLANT MAINTENANCE SUPERVISOR Work Phone: noms CWM FMComment on above:Type 2 diabetes mellitus without complication, without long-term current use of insulin (CMS/HCC) (P rimary Dx); Dyslipidemia (CMS/HCC); Essential hypertension (CMS/HCC); Positive colorectal cancer screening using Cologuard test; Screening for colon cancer; Constipation, unspecified constipation typeStart: 12-30-2023 End: 91-31-2961ppkioqqvjeDSNXKPLL FITLESTRICKNot AvailableStart: 11-03-2023 End: 97-54-9581pixlhqnxhnKlrtkqy Vytautas Giedraitis Facility:[facility] Start: 10-06-2023 End: 28-53-9458Tawmmthikw hospital visit by physicianCarlito Leung DO Work Phone: mZ ORComment on above:Post-op pain (Primary Dx) Start: 89-90-9299Kiiyhxxpjjcv stateAnna White PLANT MAINTENANCE SUPERVISOR Work Phone: noms HealthcareStart: 09-22-2023 End: 02-91-8931Iwekbhxiu Result EncounterGeneric External Data ProviderNOMS External Department UnsolicitedStart: 09-22-2023 End: 78-33-2247Kvsxsmwgz Result EncounterGeneric External Data ProviderNOMS External Department UnsolicitedStart: 07-24-2023 End: 76-59-4152vimvezlubpKMKMPHBerger Hospitaltart: 07-12-2023 End: 92-44-3793Pspzsqtfm Result EncounterGeneric External Data ProviderNOMS External Department UnsolicitedStart: 07-12-2023 End: 18-21-5057Bjioxupii Result EncounterGeneric External Data ProviderNOMS External Department UnsolicitedStart: 07-03-2023 End: 17-54-9842Htthywbry Result EncounterSnava Cordoba MD Work Phone: noms External Department UnsolicitedStart: 07-03-2023 End: 22-61-3239Dxinrvsnz Result EncounterSnava Cordoba MD Work Phone: noms External Department UnsolicitedStart: 06-23-2023 End: 34-55-0866xrvfogkarqKXOTLUMarymount Hospitaltart: 06-06-2023 End: 10-05-2908Fkhealeyz Result EncounterSnava Cordoba MD Work Phone: noms External Department UnsolicitedStart: 06-06-2023 End: 78-96-7565Qetrqnxzo Result EncounterSnava Cordoba MD Work Phone: noms External Department UnsolicitedStart: 06-05-2023 Patient encounter Lindsey Esteswilberto MORALES Work Phone: noms HealthcareStart: 07-25-2022 End: 42-22-9861joynygfnueAU JACK HAY .Facility:T1Irxyw: 07-24-2022 End: 32-58-5556vnqaqpvhtoMMJALP H FAWWADFacility:Z7Cdxcc: 07-11-2022 End: 04-17-3829ozadgrlprbRFCZKB H FAWWADFacility:I7Blgiq: 06-03-2022 End: 20-12-3072utoqeffaucOTBAZW H FAWWADFacility:L1Fuoii: 03-13-2022 End: 84-93-1855tuejsblzamYyqrre Dymond Other [employer] Other Start: 20-15-1647Xhtmge outpatient visit 15 minutes [facility]ie [facility] ClydeStart: 03-07-2022 End: 13-26-5814ioohupfhqzSSRXST Kyara FAWWADFacility:Z2Vvmsl: 10-10-2021 End: 74-34-7293blupirvjniXwtcmp Dymond Other [employer] Other Start: 56-44-2649Odnamg outpatient visit 15 minutes Mamie JohnnyG [facility] ClydeStart: 10-10-2021 End: 66-52-0854Xicewivm ReferredNP-C Mamie Cannon Work Phone: [facility] CampusStart: 05-10-2021 End: 68-34-9486bgabzgaktrBwtsq Keller Other Blair PetMD Other Start: 86-86-3132Wvjlce outpatient visit 15 minutes Alexandra KellerFPG [facility] ClydeStart: 02-19-2021 End: 02-70-9262vbnoqnteylTvzws Marsy Other [facility] HospitalTelePharm Other Start: 65-99-1394Civzdt outpatient visit 15 minutes Alexandra GintyFPG [facility] [place] Procedures DateProcedureProcedure DetailPerforming ClinicianStart: 10-13-9660Rnlat metabolic panel calcium totalGeoffrey Senait TALAMANTES Work Phone: Start: 69-21-5056Vqrstfwtsu exam chest single view Jarocho Marquez MD Work Phone: Start: 94-53-7089AXETV-19, Delmi Jose MD Work Phone: Start: 66-12-3971Ujfaszari Darlin Jose MD Work Phone: Start: 37-65-1003Jkdzvgrikbbwf metabolic panelLisa J. Asha NIB FINISHER - PLANT MAINTENANCE SUPERVISOR Work Phone: Start: 68-24-7944BVZ ALTLisa Aichholz PLANT MAINTENANCE SUPERVISOR Work Phone: Start: 98-10-2603ZAB ASTLisa Aichholz PLANT MAINTENANCE SUPERVISOR Work Phone: Start: 81-92-3757Ufill panelLisa J. Aickyaraholjevon NIB FINISHER - PLANT MAINTENANCE SUPERVISOR Work Phone: Start: 40-04-7977Nagjfokpgvx aspartate amino ast sgot Jenn Alona. Aicadriane NIB FINISHER - PLANT MAINTENANCE SUPERVISOR Work Phone: Start: 85-50-0605JAFY GLUCOSE,WHOLE BLOODGeneric External Data ProviderStart: 84-07-4911CwyippoabiiYnqwktq Pruitt MD Work Phone: Start: 81-84-5136Mqp routine ecg w/least 12 lds w/i&r Virginia Wilver Ramos NIB FINISHER - BOLT LABELER Work Phone: Start: 94-49-5224Jrusdvzqul glycosylated v4bZkaz Nimcoholz PLANT MAINTENANCE SUPERVISOR Work Phone: Start: 25-20-6959Wdctczzdvkzsr metabolic panelLisa J. Asha NIB FINISHER - PLANT MAINTENANCE SUPERVISOR Work Phone: Start: 55-21-7260Cltzc panelLisa J. Nimcoholjevon NIB FINISHER - PLANT MAINTENANCE SUPERVISOR Work Phone: Start: 56-45-1884UOGA CBC WITH DIFFLisa Asha PLANT MAINTENANCE SUPERVISOR Work Phone: Start: 86-75-3951Oxjkd albumin quantitativeLisa Alona. Nimcoholjevon NIB FINISHER - PLANT MAINTENANCE SUPERVISOR Work Phone: Start: 13-63-9904Glkui dip stick/tablet rgnt auto w/o microscopyLisa Alona. Nimcoholjevon NIB FINISHER - PLANT MAINTENANCE SUPERVISOR Work Phone: Start: 40-28-3984Xlizybvmev glycosylated h4aAfsi Kristopherhholz PLANT MAINTENANCE SUPERVISOR Work Phone: Start: 98-29-6594KR CHEST 2VGeneric External Data ProviderStart: 30-20-4829SPBN CULTUREGeneric External Data ProviderStart: 26-25-6975CXR 12-LEADGeneric External Data ProviderStart: 42-15-3541IH LUMBAR SPINE MIN 4VGeneric External Data ProviderStart: 40-33-1669QC LUMBAR SPINE WO CONSnava Cordoba MD Work Phone: Start: 22-13-1021HQ FOREIGN BODY EYESnava Cordoba MD Work Phone: Start: 76-21-8571SL LUMBAR SPINE 2 OR 3VSnava Cordoba MD Work Phone: Plan of Treatment DateCare ActivityDetailAuthorStart: 85-47-0582Ewxkuleap for malignant neoplasm of colonBon BannerPOI [facility] HospitalStart: 45-84-7195Ibsqytfnu for malignant neoplasm of colonNOMS HealthcareStart: 92-46-9408TKL test (Diabetes, CKD 3-4, OR last GFR 15-59)GFR test (Diabetes, CKD 3-4, OR last GFR 15-59)[facility] CenterPO[facility] HospitalStart: 38-30-0495OWL test (Diabetes, CKD 3-4, OR last GFR 15-59)GFR test (Diabetes, CKD 3-4, OR last GFR 15-59)[facility] CenterPO[facility] HospitalStart: 11-15-2025 Lipid panelLipidsBon [facility] HospitalStart: 46-04-5791HZY test (Diabetes, CKD 3-4, OR last GFR 15-59)GFR test (Diabetes, CKD 3-4, OR last GFR 15-59)[facility] CenterPO[facility] HospitalStart: 53-31-5315Italp panelLipidsBon [facility] [employer] [facility] Start: 76-32-2196Yjkxb screening for proteinNOMS HealthcareStart: 04-01-2025 Hemoglobin A1c measurementDiabetes: Hemoglobin N1CRXFM HealthcareStart: 03-13-2025 End: 50-43-0753Zsnyzoe encounter /21/2025 8:15 PM EST Appointment [facility] [address] [place], [place] [id number] Diagnostic [facility] Sleep CenterComment on above:DiagnosticStart: 46-20-2450Nskwlibj screening Diabetes: Retinopathy ScreeningNOIA HealthcareStart: 51-86-3463Yisqwufizp A1c measurementDiabetes: Hemoglobin P5CARMD HealthcareStart: 11-25-2024 End: 70-89-5910Cbnmnon encounter mgstrsmyy95/04/2025 9:00 AM EDT Office Visit [facility] [address] [place] [address] Jenn Barry, PLANT MAINTENANCE SUPERVISOR [address] [place] [address] NOMS [facility] FMStart: 31-60-2182KNVXN-19 Vaccine ( season)COVID-19 Vaccine ( season)NOM HealthcareStart: 11-22-2024 Influenza vaccinationNOIA HealthcareStart: 11-10-2024 End: 38-52-1895Krlyjat encounter qybjrbuxr91/20/2025 2:00 PM EDT Office Visit [facility] [address] [place] [address] Jenn Barry, PLANT MAINTENANCE SUPERVISOR [address] [place] [address] [facility] FMStart: 11-02-2024 End: 40-59-6093Fxpfydr aminotransferase [Enzymatic activity/volume] in Serum or PlasmaALT Lab Routine Dyslipidemia Expected: 11/02/2024 (Approximate), Expires: 09/02/2025NOIA HealthcareComment on above:Expected: 11/02/2024 (Approximate), Expires: 09/02/2025Start: 11-02-2024 End: 59-73-1733Caqprhesu aminotransferase [Enzymatic activity/volume] in Serum or PlasmaAST Lab Routine Dyslipidemia Expected: 11/02/2024 (Approximate), Expires: 09/02/2025NOMS HealthcareComment on above:Expected: 11/02/2024 (Approximate), Expires: 09/02/2025Start: 10-28-2024 End: 49-59-4766Rvegetwla to same day surgery qpdmgd3410/28/2024 8:35 AM EDT - 10/28/2024 9:11 AM EDT Surgery [facility] Endoscopy [address] [place] [address] Morgan Lovell MD [address] [place] [address] [address] [place] [address] COLONOSCOPYMZ EndoscopyComment on above:COLONOSCOPYStart: 10-28-2024 End: 13-84-0652Jhztc ca scrn not hi rsk indMWHZ ENDOSCOPYStart: 10-28-2024 Subsequent hospital visit by hyysavcng11/07/2025 8:35 AM EDT Hospital Encounter [facility] [address] [place] [address] Morgan Lovell MD [address] [place] [address] [address] [place] [address] MW EndoscopyStart: 47-75-5233FjcvfceupHealthSouth Medical CenterStart: 09-29-2024 End: 10-18-4448Phccnip encounter procedureNOMS CWM FMComment on above:Type 2 diabetes mellitus without complication, without long-term current use of insulin (HCC) (Primary Dx); Essential hypertension ; Morbid (severe) obesity due to excess calories ([facility]-HCC); JAN (generalized anxiety disorder) ; Depression with anxiety; Type 2 diabetes mellitus with other specified complication (HCC); Hyperlipidemia, unspecified ; Positive colorectal cancer screening using Cologuard testStart: 09-02-2024 End: 26-59-7797Feaev 1996 panel - Serum or PlasmaLipid panel Lab Routine Dyslipidemia Expected: 09/02/2024 (Approximate), Expires: 09/02/2025NOIA Healthcare Work Phone: Comment on above:Expected: 09/02/2024 (Approximate), Expires: 09/02/2025Start: 57-00-3545Rtcsy screening for proteinDiabetes: Urine Protein ScreeningAMERICAN FORK HOSPITAL HealthcareStart: 06-29-2024 End: 51-53-7738LVV W Auto Differential panel - BloodCBC and differential Lab Routine Obstructive sleep apnea syndrome Hyperuricemia Expected: 06/29/2024 (Approximate), Expires: 06/29/2025NOIA Healthcare Work Phone: Comment on above:Expected: 06/29/2024 (Approximate), Expires: 06/29/2025Start: 06-29-2024 End: 77-58-9665Uaclswymkvjug metabolic 2000 panel - Serum or PlasmaComprehensive metabolic panel Lab Routine Essential hypertension (CMS/HCC) Type 2 diabetes mellituswithout complication, without long-term current use of insulin Dyslipidemia (CMS/HCC) HyperuricemiaExpected: 06/29/2024 (Approximate), Expires: 06/29/2025[facility] HealthcareComment on above:Expected: 06/29/2024 (Approximate), Expires: 06/29/2025Start: 06-29-2024 End: 47-36-1171Yatxx 1996 panel - Serum or PlasmaLipid panel Lab Routine Dyslipidemia (CMS/HCC) Expected: 06/29/2024 (Approximate), Expires: 06/29/2025 NOMS HealthcareComment on above:Expected: 06/29/2024 (Approximate), Expires: 06/29/2025Start: 06-29-2024 End: 17-45-3226Hknnmjsayqkh/Creatinine panel in random UrineMicroalbumin / creatinine, urine ratio Lab Routine Essential hypertension (CMS/HCC) Type 2 diabetesmellitus without complication, without long-term current use of insulin Expected: 06/29/2024 (Approximate), Expires: 06/29/2025[facility] HealthcareComment on above:Expected: 06/29/2024 (Approximate), Expires: 06/29/2025Start: 06-29-2024 End: 19-42-3365Srbhxrkv specific Ag [Mass/volume] in Serum or PlasmaPSA Lab Routine Screening for prostate cancer Expected: 06/29/2024 (Approximate), Expires: 06/29/2025NOIA HealthcareComment on above:Expected: 06/29/2024 (Approximate), Expires: 06/29/2025Start: 06-29-2024 End: 31-42-7493Xvsyb [Mass/volume] in Serum or PlasmaUric acid Lab Routine Hyperuricemia Expected: 06/29/2024 (Approximate), Expires: 06/29/2025NOIA HealthcareComment on above:Expected: 06/29/2024 (Approximate), Expires: 06/29/2025Start: 06-29-2024 End: 62-06-4495Tjtkkocstk complete panel - UrineUrinalysis with reflex microscopic (clean catch) Lab Routine Essential hypertension ([facility]) Type 2 diabetes mellitus without complication, without long-term current use of insulin Expected: 06/29/2024 (Approximate), Expires: 06/29/2025[facility] HealthcareComment on above:Expected: 06/29/2024 (Approximate), Expires: 06/29/2025Start: 06-29-2024 End: 42-45-6259Uercmtl encounter iexzefhot76/08/2025 9:30 AM EDT [facility] [address] [place] [address] Anna White, ANDREW [address] [place] [address] [facility] FMStart: 57-78-5539Aiahakjuqs A1c measurement Diabetes: Hemoglobin M4TFORZShriners Hospitals for ChildrenStart: 12-30-2023 End: 40-05-1548Vwkbizatqj A1c/Hemoglobin.total in BloodHemoglobin A1c Lab Routine Type 2 diabetes mellitus without complication, without long-term current use of insulin ([facility]/HCC) Expected: 12/30/2023 (Approximate), Expires: 12/29/2024 [facility] Work Phone: Comment on above:Expected: 12/30/2023 (Approximate), Expires: 12/29/2024Start: 12-30-2023 End: 75-03-1376Ezuksqu encounter pvoascvcv01/08/2024 9:00 AM EDT Office Visit NOMS [facility] [address] [place] [address] Eliceo Whitey, PLANT MAINTENANCE SUPERVISOR [address] [place] [address] ArrivedNO [facility] FMComment on above:ArrivedStart: 11-23-2023 COVID-19 Vaccine ( season)COVID-19 Vaccine ( season)[facility] Centerart: 03-40-5581OMKFF-19 Vaccine ( season)COVID- 19 Vaccine ( season)[facility]: 11-23-2023 Influenza vaccinationInfluenza Vaccine (#1)[facility] ChildrenStart: 10-23-2023 Influenza vaccinationFlu vaccine (#1)[facility]art: 10-06-2023 End: 25-56-7310Fvzapxsrrfb &/transposition ulnar nerve elbowARM NERVE TRANSPOSITION Cubital tunnel syndrome, right 10/06/2023 11:31 AM [facility]: 18-97-5300Iwiqjpib vaccine (1 of 2)Shingles vaccine (1 of 2)[facility]: 11-36-4178Dpteehmri for malignant neoplasm of colonMary [facility]: 73-67-9679QFyH/Tdap/Td vaccine (1 - Tdap) DTaP/Tdap/Td vaccine (1 - Tdap)[facility]: 02-18-1994 Hepatitis B vaccine (1 of 3 - 19+ 3-dose series)Hepatitis B vaccine (1 of 3 - 19+ 3-dose series)[facility]: 18-72-2061Peoaztwwe B Vaccines (1 of 3 - 19+ 3-dose series)Hepatitis B Vaccines (1 of 3 - 19+ 3-dose series) [facility] ChildrenStart: 38-54-9164Sgrgsvhonppv 50+ years Vaccine (1 of 2 - PCV) Pneumococcal 50+ years Vaccine (1 of 2 - PCV)[facility]: 98-08-9495Okeslfsv screeningDiabetic retinal examMountain View Regional Medical Centerart: 85-92-5157Odnkuqodu C screeningHepatitis C screenMary [facility]: 65-33-1486PRV screeningHIV screenMary [facility]: 1985 Depression MonitoringDepression MonitoringMary [facility]: 40-56-8015Voorwhww foot examinationDiabetic foot examBon Secours St. [facility] Start: 27-26-8682Blyxbozfbv A1c cxbdxtpucztA4W test (Diabetic or Prediabetic)[facility]: 31-96-9204WDpX/Tdap/Td Vaccines (1 - Tdap) DTaP/Tdap/Td Vaccines (1 - Tdap)[facility] ChildrenStart: 21-03-7239YOE Vaccines (1 of 1 - Standard series)MMR Vaccines (1 of 1 - Standard series)[facility] Start: 30-97-6146KODBK-19 Vaccine (#1)COVID-19 Vaccine (#1)[facility]: 61-80-0136Ejsuzzryg for malignant neoplasm of colonNOMS Healthcare Bacteria identified in Urine by CulturePremier Health Miami [facility] South Comprehensive metabolic 2000 panel - Serum or PlasmaPremier Health Miami Valley Hospital SouthOxygen therapy [Minimum Data Set]Initiate Oxygen Therapy Protocol Respiratory Care Routine As Needed until discontinued starting 10/06/2023[facility] on above:As Needed until discontinued starting 10/06/2023athology studySurgical Pathology Lab Routine Positive colorectal cancer screening using Cologuard test Release Upon Ordering for 1 Occurrences starting 10/28/2024[facility] on above:Release Upon Ordering for 1 Occurrences starting 10/28/2024 End: 79-33-5454DLNIKMDI PATHOLOGY REPORTSURGICAL PATHOLOGY REPORT Lab Routine Once for 1 Occurrences starting 10/28/2024 until 10/28/2024[facility] on above:Once for 1 Occurrences starting 10/28/2024 until 10/28/2024[facility] Immunizations Immunization DateImmunizationNotesCare ZmsqgfusNlxetpjs58-31-2061Uicdqt Purple Cap SARS-CoV-2 VaccinationJenn Barry NP Work Phone: [facility]als for ChildrenTjymfmeygh39-30-3110vleuipdkx, injectable, quadrivalent, preservative freeBrittany White PLANT MAINTENANCE SUPERVISOR Work Phone: [phone] [place], [place] [address]Bdbzepujlw39-65-7243wxeuhzuvz virus vaccine, unspecified formulationBrittany White PLANT MAINTENANCE SUPERVISOR Work Phone: [phone]-[address] [place], [place] [address]Hyiasaowrc48-56-8820Sobbnfm SARS-CoV-2 VaccinationLisa Aichholz PLANT MAINTENANCE SUPERVISOR Work Phone: [phone] [place], [place] [address]Xfgzluqjql72-15-4441Dbtznzh SARS-CoV-2 VaccinationLisa Aichholz PLANT MAINTENANCE SUPERVISOR Work Phone: [phone]-[address] [place], [place] [address]Ezymmboyim23-13-9877wtbafzxvy, injectable, quadrivalent, contains preservativeBrittany White PLANT MAINTENANCE SUPERVISOR Work Phone: [phone] [place], [place] [address]Rivqucpolm06-04-1465Icdlykjqt, injectable, Madin Bonita Canine Kidney, preservative free, quadrivalentBrittany White PLANT MAINTENANCE SUPERVISOR Work Phone: [phone] [place], [place] [address]Xrcdcxqhjq40-06-3662gnsmbpewy, seasonal, injectableBrittany White PLANT MAINTENANCE SUPERVISOR Work Phone: [phone] [place], [place] [address]Kzwtmjmfbk74-52-4984jifpcfnbj, seasonal, injectable, preservative freeBrittany White PLANT MAINTENANCE SUPERVISOR Work Phone: [phone] [place], [place] [address]Fweukmzsec04-67-4220drlzvbjgr, seasonal, injectable, preservative freeBrittany White PLANT MAINTENANCE SUPERVISOR Work Phone: [phone] [place], [place] [address]Koirxmcdms21-72-0002sbuirrdbm, seasonal, injectableBrittany White PLANT MAINTENANCE SUPERVISOR Work Phone: [phone] [place], [place] [address]Walbxhzfcv71-06-3927vdifhohhs, seasonal, injectableBrittany White PLANT MAINTENANCE SUPERVISOR Work Phone: [phone] [place] [address] Payers DatePayer CategoryPayerPolicy [id number] [id number] 2.16.840.1.375379.3.57[id number] 2.16.840.1.295294.3.57[id number] 2.16.840.1.655009.3.57[id number] 2.16.840.1.574307.3.57[id number] 2.16.840.1.891708.3.57[id number] 2.840.1.358830.3.57[id number] 2.840.1.925242.3.57[id number] 2.16.840.1.202007.3.57[id number] 2.16.840.1.089644.3.57[id number] 2..840.1.666152.3.57[id number] 2.16.840.1.508364.3.57[id number] 2.16.840.1.503202.3.57[id number] 2.16.840.1.485949.3.57[id number] 2.16840.1.955197.3.57[id number] 2.16.840.1.088247.3.57[id number] 2..840.1.896153.3.57[id number] 2.16.840.1.638886.3.57[id number] 2..840.1.701445.3.57[id number] 2.16.840.1.892333.3.57[id number] 2..840.1.275415.3.57[id number] 2.16.840.1.454466.3.57[id number] 2..840.1.965041.19 Self-paySelf [id number]-25ts-30xt-[id number]-[id number] Social History DateTypeDetailFacilityUnknown if ever smokedNosaint john's regional health center PetMD Other Start: 12-23-2023 End: 61-16-2571Mnh Assigned At [facility] HospitalStart: 15-59-5569Dmn Assigned At [facility] Centertart: 06-05-2023 End: 64-07-9265Jwxxkmh smoking status NHISNever smoked tobaccoShriners Hospitals for Children Start: 06-05-2023 End: 24-71-1803Ddxmtbs use and exposureSmokeless tobacco non-userBON HEALTHSOU[facility] REH[facility] SOUTHERN ARIZONAUniversal Robotics [facility] HOSPITALStart: 10-01-2023 End: 05-31-8122Fzkquqdqe beverage intakeLifetime non-drinker (finding)[facility]ITALStart: 12-23-2023 End: 00-93-3718Rrlorbj of Social functionNOIA HealthcareStart: 71-80-6738Juz often do you need to have someone help you when you read instructions, pamphlets, or other written material from your doctor or pharmacy [SILS]Never NOMS HealthcareDo you belong to any clubs or organizations such as mosque groups, unions, fraternal or athletic groups, or school groups?NoNOMS Healthcare Are you now , , , , never or living with a partner?DivorcedNOMS HealthcareHow often to you have a drink containing alcohol?Monthly or lessNOMS HealthcareHow many standard drinks containing alcohol do you have on a typical day?1 or 2NOMS HealthcareHow often do you have 6 or more drinks on 1 occasion?NeverNOMS HealthcareHow hard is it for you to pay for the very basics like food, housing, medical care, and heatingSomewhat hard NOMS HealthcareDo you feel stress - tense, restless, nervous, or anxious, or unable to sleep at night because yourmind is troubled all the time - these days [OSQ]To some extentNOMS Healthcare(I/We) worried whether (my/our) food would run out before (I/we) got money to buy more.Sometimes trueNOMS HealthcareIn the past 12 months, was there a time when you were not able to pay the mortgage or rent on time?YesNOThree Rivers HealthcareStart: 29-75-5077Npa assigned at birthNot on file [facility] MEDICAL CENTERShakaMARIETTA MEMORIAL HOSPITALStart: 56-44-1392WajUqjf (finding)[facility] Medical CenterKTK GroupRiverside Doctors' Hospital WilliamsburgNEGATED: Highlighted rowStart: NINFHistory of tobacco usePassive smokerCENTRA HEALTH Medical Equipment Procedure CodeEquipment CodeEquipment Original TextEquipment IdentifierDatesUSE 1 STRIP TO CHECK GLUCOSE ONCE DAILYStart: 09-26-2024 Goals DatePatient GoalDesired Activity/StatePersonal health goal Functional Status OpjuDvzukeraybMgxdqiOwbwtkqq49-71-8503Pevhx score [AUDIT-C]1 12/23/2023 9:10 AM EDT Shelby SaleemNOIA Ohgmpgxpvr47-56-0889Jzt often do you have a drink containing alcohol?Monthly or less 12/23/2023 9:10 AM EDT Mychart, Generic Monthly or lessNOMS Vulqfsukhf96-44-1690Dck many standard drinks containing alcohol do you have on a typical day?1 or 2 12/23/2023 9:10 AM EDT Mychart, Generic 1 or 2NOMS Trcnoubuux45-63-8139Lca often do you have 6 or more drinks on 1 occasion?Never 12/23/2023 9:10 AM EDT Mychart, Generic NeverShriners Hospitals for Children 55-26-7800Zcqgsij Health Questionnaire 2 item (PHQ-2) [Reported][facility] 86-04-1711Bouormd Health Questionnaire 2 item (PHQ-2) [Reported][facility] Clinical Notes 02-19-2021 to 01-30-2025 Note Date & QkyaBnptEgtqlcvt42-48-6730 Hospital Discharge instructions* Discharge Instructions* Sammy Sapp PA-C - 01/30/2025 5:22 PM EST Continue inhaler as prescribed follow-up with primary care. Return to have any symptoms worsen or new symptoms develop. * Attachments The following attachments cannot be sent through Care Everywhere. * Cough (Citizen Of [place]) * Sinusitis: Acute (Citizen Of [place]) * Metered Dose Inhalers Without a Spacer (Citizen Of [place]) documented in this [facility]11-04-2025 Hospital Discharge instructions* Discharge Instructions* Yves Jose MD - 01/25/2025 8:24 AM EST Take [...] through Care Everywhere. * Nebulizers: General Info (Citizen Of [place]) documented in this encounterBon [facility] Hospital Discharge instructionsAmbulatory Orders* AMB POC Hgb A1C Time Frame: 01/19/25, Location: Determined By Patient [facility] Work Phone: 1(156) 408-515808-07-2025 History of Present illness Narrative* Sr Leena Garcia - 10/28/2024 10:22 AM EDT Spiritual Services Interventions [facility] ENDO Pool/NONE 10/28/2024 Sr Leena Brenner 49 y.o. year old male Encounter Summary Encounter Overview/Reason: Initial Encounter Service Provided For: Patient Referral/Consult From: [employer] System: Unknown Last Encounter : 10/28/24 Complexity of Encounter: Low Begin Time: 904 End Time : 909 Total Time Calculated: 5 min Spiritual/Emotional needs Type: Spiritual Support Assessment/Intervention/Outcome Assessment: Calm Intervention: Prayer (assurance of)/Mozier Outcome: Expressed Gratitude * Lauren Le RN - 10/19/2024 11:08 AM EDT [facility] Preadmission Testing Name: Hair Brenner : 1975 [...] [x] Ride Home [x] No Jewelry/Contact Lenses/Nail Kyrgyz [x] Prep/Lax/Clear Liquids [] Chlorhexidene DOS Patient Needs [] HCG [x] Blood Sugar [] PT/INR [] T&S Do you have any metal allergies? [] Yes [x] No If yes, to what metals: Patient instructed on the pre-operative, intra-operative, and post-operative process? Yes Medication instructions reviewed with patient? Yes documented in this encounterBon [facility]08[facility] Hospital Discharge instructions* Discharge Instructions* Morgan Lovell MD - 10/28/2024 9:49 AM [...] one drug, even if it is an lgby-tnr-qadcueu medication, herb, or dietary supplement, be sure [...] emergency, call 911 immediately. documented in this encounterBon [facility]07[facility] History of Present illness Narrative* Jenn Barry NP - 09/29/2024 8:40 AM EDT Images from the original note were not included. Hair Brenner is a 49 y.o. male presents with chief complaint of Diabetes HPI: Heel pain: right, few months, everyday, constant, no pain with sitting, sit to stand worse, fades away w walking, hx of heel spur (lead investigator told in the past) would like refer to podiatry Orthostatics: lyin/50, sit 78/48, stand 78/48 Hypertension This is a chronic problem. The current episode started more than 1 year ago. The problem is unchanged. The problem is controlled. Pertinent negatives include no headaches, orthopnea, peripheral edemaor shortness of breath. There are no associated agents to hypertension. Risk factors for coronary artery disease include diabetes mellitus, dyslipidemia, male gender, obesity and sedentary lifestyle.Past treatments include beta blockers, calcium channel blockers, diuretics and angiotensin blockers. The current treatment provides significant improvement. There are no compliance problems. There isno history of CAD/CT, heart failure or PVD. Diabetes He presents [...] mg, Oral, Nightly Blood Glucose Monitoring Suppl (When You Wish Verio Flex System) w/Device kit USE DIRECTED busPIRone (BUSPAR) 15 mg, Oral, Every 8 hours PRN carvedilol (COREG) 25 mg, Oral, 2 times daily with meals HYDROcodone-acetaminophen ([place]) 5-325 MG tablet 1 tablet, Oral, Every 6 hours PRN losartan-hydroCHLOROthiazide (Hyzaar) 100-25 MG tablet 1 tablet, Oral, Daily OneTouch Verio test strip USE 1 STRIP [...] and is staying hydratedin the hot weather Relevant Medications amLODIPine (Norvasc) 10 MG tablet carvedilol (Coreg) 25 MG tablet losartan-hydroCHLOROthiazide (Hyzaar) 100-25 MG tablet spironolactone (Aldactone) 25 MG tablet Type 2 diabetes mellitus without complication, without long-term current use of insulin ([facility]) - Primary Check blood sugars [...] Morbid (severe) obesity due to excess calories ([facility]-HCC) Discussed with patient their BMI (actual, verses [...] heel Relevant Orders Ambulatory referral to Podiatry * MAYNOR VALERIO - 09/29/2024 8:40 AM EDT Pain in right heel- couple months ago, possible heel spur. Pain is consistent and daily. Pt would like a referral to a lead investigator near or in [place]. Pt checked BP this morning 122/80 pt still took his BP medication * Jenn Barry NP - 09/29/2024 6:12 AM EDTAssociated Problem(s): Type 2 diabetes mellitus with other specified complication (HCC) HTN, HLD, obesity * Jenn Barry NP - 09/29/2024 6:12 AM EDTAssociated Problem(s): Positive colorectal cancer screening using Cologuard test 06/18/23 + cologuard test * Jenn Barry NP - 09/29/2024 6:09 AM EDTAssociated Problem(s): Hyperlipidemia, unspecified On statin Check labs yearly and prn dose changes Recent change in dose on atorvastatin d/t not at goal * Jenn Barry NP - 09/29/2024 6:07 AM EDTAssociated Problem(s): Depression with anxiety Current meds: buspar, sertraline Last appt increased buspar to 10mg TID * Jenn Barry NP - 09/29/2024 6:06 AM EDTAssociated Problem(s): JAN (generalized anxiety disorder) (Resolved 09/29/2024) Current meds: buspar, sertraline * Jenn Barry NP - 09/29/2024 6:06 AM EDTAssociated Problem(s): Morbid (severe) obesity due to excess calories ([facility]) Discussed with patient their BMI (actual, verses recommended). We have also discussed lifestyle modifications: attempts to perform physical activity as chronic conditions allow, also to monitor dietary intake: increasing protein/fruits/veggies and lowering carb intake (unless contraindicated). Limit sodas, juices, and sugary drinks. Is on GLP-1 for diabetes * Jenn Barry NP - 09/29/2024 6:05 AM EDTAssociated Problem(s): Type 2 diabetes mellitus without complication, without long-term current useof insulin ([facility]) Check blood sugars daily, notify [...] statin, arb/hctz A1c: 5.9% 09/29/24, 5.9% 06/29/24 * Jenn Barry NP - 09/29/2024 6:05 AM EDTAssociated Problem(s): Essential hypertension Please check blood pressure [...] and is staying hydratedin the hot weather * Jenn Barry NP - 09/29/2024 6:05 AM EDTAssociated Problem(s): Sleep apnea You have a diagnosis of obstructive sleep apnea. It is recommended that you wear your PAP device any time while in bed sleeping. Not using the PAP device can increase your risk of elevated/uncontrolled high blood pressure, atrial fibrillation, heart attack, stroke, or sudden . Compliance with PAP: could not tolerate this documented in this encounterShriners Hospitals for [id number] Instructions* Patient Instructions* Jenn Barry NP - 09/29/2024 8:40 AM EDT ,cut amlodipine pill in half so you will take 5mg daily and check blood pressures at home for the next 7 days twice a day, and stop by office for a blood pressure check in 1 week, and bring readings along with you documented in this encounterChristopher Ville [id number] History of Present illness Narrative* MAYNOR VALERIO - 06/29/2024 9:20 AM EDT Pt does not wear sensor- cost $75 monthly Pt states he had checked his sugars a very long time however he no longer has testing kit Pt was suppose to check BP at home, he moved in April and lost his BP log. Pt states that when he was checking his systolic would be between 120-130 and diastolic would be inthe Pt states he started yesterday having pain in his right ear and could be the start of an infection he did feel his ear leak fluid * Jenn Barry NP - 06/29/2024 9:20 AM EDT Images from the original note were not included. Hair Brenner is a 49 y.o. male presents with chief complaint of Diabetes HPI: MAYNOR VALERIO Probation And Parole Officer 9:22 AM Pt does not wear sensor- cost $75 monthly Pt states he had checked his sugars a very long time however he no longer has testing kit Pt was suppose to check BP at home, he moved in April and lost his BP log. Pt states that when he was checking his systolic would be between 120-130 and diastolic would be inthe Pt states he started yesterday having pain [...] for coronary artery disease include diabetes mellitus, dyslipidemi a, hypertension, male sex, obesity and sedentary lifestyle. Current diabetic treatment includes oral agent (dual therapy) (GLP 1). An SABRINA inhibitor/angiotensin II receptor micheal is being taken. He does not see a lead investigator.Eye exam is current. Hypertension This is a [...] Oral, 2 times daily with meals HYDROcodone-acetaminophen ([place]) 5-325 MG tablet 1 tablet, Oral, Every [...] Items Addressed This Visit Dyslipidemia ([facility]) On statin therapy Check labs yearly and as needed Relevant Medications pravastatin (Pravachol) 40 MG tablet Other Relevant Orders Comprehensive metabolic panel Lipid panel Essential hypertension ([facility]) Please check blood pressure daily and record [...] Screening for prostate cancer Relevant Orders PSA * Jenn Barry NP - 06/29/2024 6:22 AM EDTAssociated Problem(s): Hyperuricemia On allopurinol Check labs yearly, and prn dose change or change in symptoms * Jenn Barry NP - 06/29/2024 6:22 AM EDTAssociated Problem(s): Dyslipidemia (CMS/HCC) On statin therapy Check labs yearly and as needed * Jenn Barry NP - 06/29/2024 6:21 AM EDTAssociated Problem(s): Depression with anxiety Current meds: buspar, sertraline PHQ 9=7 JAN 7=8 Wants to stay at dose on sertraline, however increase buspirone 10 15mg TID prn Called in 30 day script to [facility] [place] 06/29/24 10:07 am #30 day , 90 pills * Jenn Barry NP - 06/29/2024 6:19 AM EDTAssociated Problem(s): Type 2 diabetes mellitus without complication, without long-term current useof insulin Check blood sugars daily, notify if [...] glipizide, asa, statin, arb/hctz A1c: 5.9% 06/29/24 * Jenn Barry NP - 06/29/2024 6:19 AM EDTAssociated Problem(s): Morbid (severe) obesity due to excess calories (CMS/HCC) Discussed with patient their BMI (actual, verses recommended). We have also discussed lifestyle modifications: attempts to perform physical activity as chronic conditions allow, also to monitor dietary intake: increasing protein/fruits/veggies and lowering carb intake (unless contraindicated). Limit sodas, juices, and sugary drinks. Is on GLP-1 for diabetes * Jenn Barry NP - 06/29/2024 6:18 AM EDTAssociated Problem(s): Essential hypertension (CMS/HCC) Please check blood pressure daily and record DASH diet Limit caffeine Take medication as directed Contact office if chest pain, pressure, dizziness, shortness of breath, swelling legs Recommend slow position changes Current meds: amlodipine, carvedilol, arb/hydrochlorothiazide, * Jenn Barry NP - 06/29/2024 6:17 AM EDTAssociated Problem(s): Sleep apnea You have a diagnosis of obstructive sleep apnea. It is recommended that you wear your PAP device any time while in bed sleeping. Not using the PAP device can increase your risk of elevated/uncontrolled high blood pressure, atrial fibrillation, heart attack, stroke, or sudden . Compliance with PAP: could not tolerate this documented in this encounterShriners Hospitals for [id number] Instructions* Patient Instructions* Jenn Barry NP - 06/29/2024 9:20 AM EDT Fasting labs: 8 hours Increase buspirone to 15mg every 8 hours as needed for anxiety documented in this [facility]10-29-2024 Telephone encounter Note* Telephone Encounter - Akosua Ramos MA - 01/20/2024 2:37 PM EDT The prior auth for the dexcom was denied because he is not currently using insulin. [facility] Hospitals for [id number] Miscellaneous Notes* Telephone Encounter - Akosua Ramos MA - 01/20/2024 2:37 PM EDT The prior auth for the dexcom was denied because he is not currently using insulin. documented in this [facility]10-08-2024 History of Present illness Narrative* Anna White NP - 12/30/2023 11:59 AM EDTAssociated Problem(s): Constipation Pt reports constipation, states he [...] if symptoms worsen or do not improve. * Anna White NP - 12/30/2023 9:31 AM EDTAssociated Problem(s): Type 2 diabetes mellitus without complication, without long-term current useof insulin (CMS/HCC) Currently taking Glipizide 5mg BID [...] glucose monitoring noted. DM Eye Exam: 12/29/2023 * Anna White NP - 12/30/2023 9:30 AM EDTAssociated Problem(s): Dyslipidemia (CMS/HCC) Currently taking Pravastatin 40mg Denies any myalgias. Most recent Lipid Panel done 5 months ago- WNL Continue current regimen. * Anna White NP - 12/30/2023 9:30 AM EDTAssociated Problem(s): Essential hypertension (CMS/HCC) Currently taking losartan-hydrochlorothiazide 100-25 Amlodipine 10mg Carvedilol 25mg Does not check BP at home; Denies orthostatic changes, dizziness, cough, shortness of breath, swelling in extremities. Continue current regimen. Given BP log, advised pt to record BP and bring log back with them to next visit. * Anna White NP - 12/30/2023 9:00 AM EDT Images from the original note were not [...] ALBUMIN GLOBULIN RATIO 1.1 Resulting Agency [facility] DMII: Currently taking Glipizide 5mg BID [...] Neurological: Negative for dizziness, tremors, syncope, weakness, light- headedness and headaches. Psychiatric/Behavioral: Negative for decreased concentration and suicidal ideas. The patient is notnervous/anxious. Hematological: Does not bruise/bleed easily. Endocrine: Negative [...] Items Addressed This Visit Dyslipidemia ([facility]) Currently taking Pravastatin 40mg Denies any myalgias. Most recent Lipid Panel done 5 months ago- WNL Continue current regimen. Essential hypertension ([facility]) Currently taking losartan-hydrochlorothiazide 100-25 Amlodipine 10mg Carvedilol 25mg Does not check BP at home; Denies orthostatic changes, dizziness, cough, shortness of breath, swelling in extremities. Continue current regimen. Given BP log, advised pt to record BP and bring log back with them to next visit. Type 2 diabetes mellitus without complication, without long-term current use of insulin ([facility]) -Primary Currently taking Glipizide 5mg BID Ozempic 2mg [...] or do not improve. documented in this [facility]10-08-2024 Instructions* Patient Instructions* Anna White NP - 12/30/2023 9:00 AM EDT Referral sent to GI for colonoscopy- they will call you. If you don't hear from them in 2 weeks, call my office! Have A1C completed. Try taking miralax to help ease constipation. Call if stomach cramping doesn't subside. documented in this [facility]07-15-2024 History of Present illness Narrative* Gris Renteria RN - 10/06/2023 2:27 PM EDT Discharge Criteria Outpatients must meet criteria 1 [...] require patient to operate motor Vehicle. Yes * Gris Renteria RN - 10/06/2023 9:42 AM EDT Pt arrives for procedure with 17 1/2 year old dgtr Ying as otr company driver to take pt home. Pt states she is his only ride home and feels very comfortable with his dgtr taking him home. He states this isthe only way he can have the procedure done as there is no other person he can call to take him home-they have no other family in the area. Discussed with biofuels operations manager Mya CHRISTIANSON, RN who also discussed with Risk Management-Susana Carrasco who states that as long as pt is comfortable with his dgtr taking him home and there is no one else, the procedure can continue as scheduled. * Lauren Le RN - 09/30/2023 1:08 PM EDT [facility] Preadmission Testing Name: Hair Brenner : 1975 Patient (home) Procedure: RIGHT CUBITAL TUNNEL RELEASE - Right Monitor Anesthesia Care Date of Procedure: 10/06/2023 Surgeon: Carlito Leung, Ht: 185.4 cm (6' 1 ) Wt: [...] [x] Ride Home [x] No Jewelry/Contact Lenses/Nail Kyrgyz [] Prep/Lax/Clear Liquids [] Chlorhexidene DOS Patient Needs [] HCG [x] Blood Sugar [] PT/INR [] T&S Do you have any metal allergies? [] Yes [x] No If yes, to what metals: Patient instructed on the pre-operative, intra-operative, and post-operative process? Yes Medication instructions reviewed with patient? Yes [facility] Discharge instructions* Discharge Instructions* Carlito Leung DO - 10/05/2023 7:15 PM EDT Orthopedic Instructions: -Weight bearing status: No lifting, pulling, or pushing with the right upper extremity. Maintain sling -Keep dressing clean and dry. -Starting 3 days after surgery, Ok to remove sabrina wrap and cotton roll. Leave surgical dressing thatlooks like a band aid on until follow [...] 10-14 days after surgery/discharge. documented in this [facility] NoteMRSA CULTURE APPROPRIATE ISOLATION PROCEDURES.[facility] [id number] Evaluation note* Encounter Date Diagnosis Assessment Notes Treatment Notes Treatment Clinical Notes Feb, Contact with and (benavides spected) exposure to other viral communicable diseases (ICD-10 - Z20.828) Feb,OVID-19 (ICD-10 - U07.1)Discharge Instructions for COVID-19 (Suspected or Confirmed ) material was printed Drink plenty fluids, get plenty of rest. Take Tylenol or Motrin as needed for aches pains or fevers. Continue home medications as prescribed. You must quarantine for 5 days due to your COVID diagnosis. Follow-up with your family physician if no improvement in 2 to 3 days. [facility] Other 07-20-2022 Evaluation note* Encounter Date Diagnosis Assessment Notes Treatment Notes Treatment Clinical Notes Sep, Dysuria (ICD-10 - R30.0) Sep,Urinary tract infection without hematuria, site unspecified (ICD-10 - N39.0)Urinary tract infection (UTI) home care material was printed Drink plenty fluids, get plenty of rest. Take the cephalexin as prescribed until gone. Follow-up with your family physician for recheck next week, call for an appointment to be seen. Go to the ER forworsening symptoms or concern [facility] Other 2022 Evaluation note* Encounter Date Diagnosis Assessment Notes Treatment Notes Treatment Clinical Notes Apr, Paronychia of great toe, right ( ICD-10 - L03.031) Discussed diagnosis with patient. Decision [...] understanding and is agreeable at this time Apr,therParonychia home care material was printed [facility] Other 11-29-2021 Evaluation note* Encounter Date Diagnosis Assessment Notes Treatment Notes Treatment Clinical Notes Jan, Contact with and (benavides spected) exposure to other viral communicable diseases (ICD-10 - Z20.828) Jan,OVID-19 (ICD-10 - U07.1) Rapid COVID test performed [...] treatment plan. Patient left in stable condition Jan,OtherAdditional time spent conducting pre-visit phone call, screening for symptoms, instructions on social distancing, application and removal of PPE, and cleaning of examination room, equipment and supplies was preformed. Patient education given for testing methodology and results. Patient care instructions given in writting by [facility] Home document [facility] Other Evaluation noteNo assessment information available [facility] Work Phone: Evaluation note* Diagnosis Type 2 diabetes mellitus without complication, without long-term current use of insulin (CMS/HCC)- Primary Dyslipidemia (CMS/HCC) Other and unspecified hyperlipidemia Essential hypertension (CMS/HCC) Unspecified essential hypertension Positive colorectal cancer screening using Cologuard test Screening for colon cancer Special screening for malignant neoplasms, colon Constipation, unspecified constipation type documented in this encounter [facility] HealthcareEvaluation note* Diagnosis Encounter for screening [...] insulin (CMS/HCC)- Primary documented in this encounter [facility] HealthcareEvaluation note* Diagnosis Encounter for screening for [...] of insulin (CMS/HCC) documented in this encounter [facility] HealthcareEvaluation note* Diagnosis Encounter for screening [...] exam Routine general medical examination at a [facility] care facility Acute bilateral low back [...] Unspecified essential hypertension documented in this encounter [facility] HealthcareEvaluation note* Diagnosis Encounter for screening [...] of insulin (CMS/HCC) JAN (generalized anxiety disorder) (CMS/) Generalized anxiety disorder documented in this encounter [facility] HealthcareEvaluation note* Diagnosis Post-op pain- Primary Other acute postoperative pain documented in this encounter [facility] HEALTHEvaluation note* Diagnosis Encounter for screening for [...] Unspecified essential hypertension documented in this encounter [facility] HealthcareEvaluation note* Diagnosis Encounter for screening for [...] with right-sided sciatica documented in this encounter [facility] HealthcareEvaluation note* Diagnosis Encounter for screening for [...] with right-sided sciatica documented in this encounter [facility]* [...] Morbid (severe) obesity due to excess calories ([facility]) Body mass index (BMI) 40.0-44.9, adult ([facility]) Essential hypertension Unspecified essential hypertension Type 2 diabetes mellitus without complication, without long-term current use of insulin ([facility]) Depression with anxiety Dysthymic disorder Dyslipidemia Other and unspecified hyperlipidemia Hyperuricemia Other abnormal blood chemistry Screening for prostate cancer Special screening for malignant neoplasm of prostate JAN (generalized anxiety disorder) Generalized anxiety disorder Acute bilateral low back pain with right-sided sciatica Dyslipidemia- Primary Other and unspecified hyperlipidemia documented in this encounter [facility]* Diagnosis Encounter for screening for malignant neoplasm of colon- Primary Essential hypertension Unspecified essential hypertension Type 2 diabetes mellitus without complication, without long-term current use of insulin (HCC) Dyslipidemia Other and unspecified hyperlipidemia Depression with anxiety Dysthymic disorder Hyperuricemia Other abnormal blood chemistry Morbid obesity ([facility]) Morbid obesity Acute bilateral low back pain [...] Morbid (severe) obesity due to excess calories ([facility]) Body mass index (BMI) 40.0-44.9, adult ([facility]) Essential hypertension Unspecified essential hypertension Type 2 diabetes mellitus without complication, without long-term current use of insulin ([facility]) Depression with anxiety Dysthymic disorder Dyslipidemia Other and unspecified hyperlipidemia Hyperuricemia Other abnormal blood chemistry Screening for prostate cancer Special screening for malignant neoplasm of prostate JAN (generalized anxiety disorder) Generalized anxiety disorder Acute bilateral low back pain with right-sided sciatica Dyslipidemia Other and unspecified hyperlipidemia documented in this encounter [facility]* Diagnosis Encounter for screening for malignant neoplasm of colon- Primary Essential hypertension Unspecified essential hypertension Type 2 diabetes mellitus without complication, without long-term current use of insulin (HCC) Dyslipidemia Other and unspecified hyperlipidemia Depression with anxiety Dysthymic disorder Hyperuricemia Other abnormal blood chemistry Morbid obesity ([facility]) Morbid obesity Acute bilateral low back pain [...] Morbid (severe) obesity due to excess calories ([facility]) Body mass index (BMI) 40.0-44.9, adult ([facility]) Essential hypertension Unspecified essential hypertension Type 2 diabetes mellitus without complication, without long-term current use of insulin ([facility]) Depression with anxiety Dysthymic disorder Dyslipidemia Other [...] Morbid (severe) obesity due to excess calories ([facility]) JAN (generalized anxiety disorder) Generalized anxiety disorder Depression with anxiety Dysthymic disorder Type 2 diabetes mellitus with other specified complication (HCC) Hyperlipidemia, unspecified Positive colorectal cancer screening using Cologuard test Hyperuricemia Other abnormal blood chemistry Acute bilateral low back pain with right-sided sciatica Pain of right heel [facility] Diagnosis Positive colorectal cancer screening using Cologuard test- Primary Pre-op testing Preoperative examination, unspecified Positive colorectal cancer screening using Cologuard test [facility] this [facility] Diagnosis Positive colorectal cancer screening using Cologuard test- Primary Rectal bleeding Hemorrhage of rectum and anus documented in this [facility]* Diagnosis Onset Date Resolution Status Admit Date Brain fog acuteOctober 2024 2:17pmDepression with anxietyacuteOctober 2024 2:17pmEssential hypertensionacuteOctober 2024 2:17pmHyperlipidemiaacute October th, 2025 2:17pmMorbid obesity due to excess caloriesacuteOctober 2024 2:17pmOSA (obstructive sleep apnea)acuteOctober 2024 2:17pmPositive colorectal cancer screening using Cologuard testacuteOctober 2024 2:17pm Type 2 diabetes mellitus without complication, without long-term current usacute January 19, 2025 2:17pm [facility] Work Phone: Evaluation note* Diagnosis Bronchitis- Primary Bronchitis, not specified as acute or chronic Acute cough documented in this encounter [facility]* Diagnosis Acute maxillary sinusitis, recurrence not specified- Primary Acute cough Wheezing documented in this encounter [facility] general Narrative - Reported* Type Description Date Medical History HTN Medical HistoryPre diabeticMedical HistoryAnger issuesMedical History Hyperlipidemia [facility] Other Reason for referral (narrative)* Consultation (Routine) - Pending ReviewSpecialtyDiagnoses / ProceduresReferred By Contact Referred To ContactGastroenterology Diagnoses Positive colorectal cancer screening using Cologuard test Screening for colon cancer Procedures TX OFFICE/OUTPATIENT NEW HIGH MDM 60 MINUTES Anna White NP [address] [place] [id number] Pati Corona MD [address] [place] [address] Referral IDStatusReasonStart DateExpiration DateVisits RequestedVisits [id number] Review Specialty Services Required / FELIPA Bolden for referral (narrative)No reason for referral information availableWadsworth-Rittman Hospital Work Phone: Reason for visit Narrative* Outpatient Service (Routine) - Not Required - RTASpecialtyDiagnoses / ProceduresReferred By ContactReferred To ContactCardiology Diagnoses Pre-op testing Procedures EKG 12 Lead Virginia Ramos, NIB FINISHER - BOLT LABELER [address] [place] [address] Phone: tel: fax: Referral IDSumaDiorsantosBristol DateExpiration DateVisits RequestedVisits [id number] Required - RTA/ [facility] for visit Narrative* Auth/CertSpecialtyDiagnoses / ProceduresReferred By ContactReferred To Contact Diagnoses Positive colorectal cancer screening using Cologuard test Procedures TX COLON CA SCRN NOT HI RSK IND TX COLORECTAL SCRN; HI RISK IND TX ESOPHAGOGASTRODUODENOSCOPY TRANSORAL DIAGNOSTIC TX EGD TRANSORAL BIOPSY SINGLE/MULTIPLE TX EGD BALLOON DILATION ESOPHAGUS <30 MM DIAM COLORECTAL CANCER SCREENING, NOT HIGH RISK Morgan Lovell MD [address] [facility] [address] [place] [address] Phone: tel: fax: [facility] [address] [place] [address] Referral IDScleveland clinicusSentara [facility] DateExpiration DateVisits RequestedVisits [id number] [facility] Chief Complaint and Reason for Visit Chief Complaint Dysuria Chief Complaint Admit Date 3M January 19, 2025 2 :17pm Reason for Visit Admit Date Brain fog January 19, 2025 2 :17pm Depression with anxiety January 19 2:17pm Essential hypertension January 19 2:17pm Hyperlipidemia January 19, 2025 2 :17pm Morbid obesity due to excess calories Oc tober 2024 2:17pm MARKO (obstructive sleep apnea) January 192024 2:17pm Positive colorectal cancer screening usi ng Cologuard test January 19, 2025 2:17pm Type 2 diabetes mellitus wit hout complication, without long-term current us January 19, 2025 2:17pm Advance Directives Advance Directive Response Recorded Date/ Time Advance Directives No October 10 8:59pm Code StatusDate ActivatedDate InactivatedCommentsFull Code10/06/2023 10:13 AMDate ActivatedDate InactivatedComments10/06/2023 10:13 AM10/06/2023 4:33 PMDate ActivatedDate InactivatedComments10/06/2023 10:13 AM10/06/2023 4:33 PM Summary Purpose Family History Relationship Condition Age at Onset Recorded Date/T glenda father Hypertension Unknown Additional Source Comments REASON FOR VISIT (unrecogniz ed section and content) ReasonCommentsFollow-upReasonOnset DateCommentsMed [id number] DateCommentsMed Gloxdc2403/25/2024ReasonOnset DateCommentsMed Arirmh6003/23/2024 SpecialtyDiagnoses / ProceduresReferred By ContactReferred To Contact Diagnoses Cubital tunnel syndrome, right Cubital tunnel syndrome, right [G56.21] Procedures TX NEUROPLASTY &/TRANSPOSITION ULNAR NERVE ELBOW RIGHT CUBITAL TUNNEL RELEASE Carlito Leung, DO [address] [place] [address] [facility] [address] [place] [address] Referral IDStatusReasonStart DateExpiration DateVisits RequestedVisits [id number] DateCommentsMed Dkjlzp4705/06/2024ReasonComments DiabetesReasonCommentsDiabetesReasonCommentsIllnessProductive green cough, congestion since Friday. Fever a few days ago. Concerned for bronchitis or p neumonia.ReasonCommentsCoughPt. Reports ongoing cough, diagnosed Friday with bronchitis, reports feeling better when first starting antibiotics but feels its coming right back. Pt. Reports sinus congestion. Intermittent wheezing, worse at night Care Teams (unrecognized sec tion and content) Team Status: Inactive Member Role Status Dates Mamie Cannon NP-C Attending Provider Active Team MemberRelationshipSpecialtyStart DateEnd Date Richard Harris MD [address] [place] [id number] PCP - GeneralFamily Medicine11/04/23 Anna White NP [address] [place] [address] [address] [facility] Medicine11/04/23Team MemberRelationshipSpecialtyStart DateEnd Date Richard Harris MD [address] [place] [address] [facility]11/04/23 Anna White NP [address] [place] [address] [facility]11/04/23Team MemberRelationshipSpecialtyStart DateEnd Date Richard Harris MD [address] [place] [address] PCP - [facility]11/04/23 Anna White NP [address] [place] [address] [facility]11/04/23Team MemberRelationshipSpecialtyStart DateEnd Date Anna White NP [address] [place] [address] [address] [facility] Medicine11/04/23Team MemberRelationshipSpecialtyStart DateEnd Date Anna White NP [address] [place] [address] [address] [facility] Medicine11/04/23Team MemberRelationshipSpecialtyStart DateEnd Date Anna White ANDREW [address] [place] [address] [facility]11/04/23Team MemberRelationshipSpecialtyStart DateEnd Date Anna White NP [address] [place] [address] [facility]11/04/23Team MemberRelationshipSpecialtyStart DateEnd Date Shaikh Cordoba MD [address] [place] [address] PCP - General10/06/23Team MemberRelationshipSpecialtyStart DateEnd Date Richard Harris MD [address] [place] [address] PCP - [facility]04/26/24 Anna White, ANDREW [address] [place] [address] [facility]11/04/23Team MemberRelationshipSpecialtyStart DateEnd Date Richard Harris MD [address] [place] [address] PCP - [facility]04/26/24 Anna White NP [facility]11/04/23Team MemberRelationshipSpecialtyStart DateEnd Date Richard Harris MD [address] [place] [address] PCP - [facility] Medicine04/26/24 Anna White NP [facility] Medicine11/04/23Team MemberRelationshipSpecialtyStart DateEnd Date Richard Harris MD [address] [place] [address] PCP - [facility] Medicine04/26/24 Anna White NP [facility]11/04/23Team MemberRelationshipSpecialtyStart DateEnd Date Jenn Barry, NIB FINISHER - PLANT MAINTENANCE SUPERVISOR [address] [place] [address] [facility] - [facility] [place]09/01/24Team MemberRelationshipSpecialtyStart Date End Date Richard Harris MD [address] [place] [address] PCP - [facility] Medicine04/26/24 Anna White NP [facility]11/04/23Team MemberRelationshipSpecialtyStart DateEnd Date Richard Harris MD [address] [place] [address] PCP - [facility] Medicine04/26/24 Anna White NP Nurse [facility]11/04/23Team MemberRelationshipSpecialtyStart DateEnd Date Richard Harris MD [address] [place] [address] PCP - [facility]04/26/24 Anna White NP Nurse [facility]11/04/23Team MemberRelationshipSpecialtyStart DateEnd Date Richard Harris MD [address] [place] [address] PCP - [facility]04/26/24 Anna White NP Nurse [facility]11/04/23Te MemberRelationshipSpecialtyStart DateEnd Date Jenn Barry, NIB FINISHER - PLANT MAINTENANCE SUPERVISOR [address] [place] [address] PCP - GeneralNurse Practitioner09/01/24Team MemberRelationshipSpecialtyStart Date End Date Jenn Barry, NIB FINISHER - PLANT MAINTENANCE SUPERVISOR [address] [place] [address] PCP - GeneralNurse Practitioner09/01/24Team MemberRelationshipSpecialtyStart Date End Date Richard Harris MD [address] [place] [address] PCP - [facility]04/26/24 Anna White NP Nurse PractitionerFamily Medicine11/04/23Team MemberRelationshipSpecialtyStart DateEnd Date Richard Harris MD [address] [place] [address] PCP - GeneralFamily Medicine04/26/24 Anna White NP [facility]11/04/23Team MemberRelationshipSpecialtyStart DateEnd Date Jenn Barry APRN - PLANT MAINTENANCE SUPERVISOR [address] [place] [address] PCP - GeneralNurse Practitioner09/01/24Team MemberRelationshipSpecialtyStart Date End Date Shaikh Cordoba MD PCP - GeneralInternal Medicine Richard Harris MD PCP - GeneralFamily Medicine11/03/2409 Unallocated, Felipa Juarez MD [address] [place] [address] PCP - GeneralFamily Tmilacrm45/15/ Richard Harris MD PCP - GeneralFamily Medicine04/26/24 Anna White PLANT MAINTENANCE SUPERVISOR Nurse Practitionermily Medicine11/04/23Team MemberRelationshipSpecialtyStart DateEnd Date Shaikh Cordoba MD [facility] Richard Harris MD PCP - [facility] Medicine11/03/2409 UnallocatedFelipa MD [address] [facility] [place] [address] PCP - [facility] Xnskwaee68/15/ Richard Harris MD PCP - [facility] Medicine04/26/24 Anna White NP Nurse Pract[facility] Medicine11/04/23 Team Status: Active Member Role/Relationship Status Dates Jenn Barry NP-C Primary Care Provider Active Team Status: Inactive Member Role/Relationship Status Dates Jenn Barry NP-C Primary Care Provider Active Start: January 19, 2025 End: January 19, 2025Jenn Barry NP-CAttending ProviderActiveStart: January 19, 2025 End: January 19, 2025Team MemberRelationshipSpecialtyStart DateEnd Date Jenn Barry APRN - PLANT MAINTENANCE SUPERVISOR [address] [place] [address] P[facility] - [facility] [place]09/01/24Team MemberRelationshipSpecialtyStart Date End Date Jenn Barry APRN - PLANT MAINTENANCE SUPERVISOR [address] [place] [address] PCP - GeneralNurse Practitioner09/01/24Team MemberRelationshipSpecialtyStart Date End Date Jenn Barry, NIB FINISHER - PLANT MAINTENANCE SUPERVISOR [address] [place] [address] PCP - GeneralNurse Practitioner09/01/24 Goals (unrecognized section and content) Goals may be documented in a n alternate section (unrecognized sect ion and content) No Status Records FoundNo Status Records FoundNo Status Records FoundNo Status Records FoundNo Status Records FoundNo Status Records FoundNo Status Records Found INFORMATION SOURCE (unrecogn ized section and content) DATE CREATED AUTHOR 10/18/2021 [facility] DATE CREATED AUTHOR AUTHOR'S ORGANIZ ATION 08/01/2022 [facility] DATE CREATED AUTHOR AUTHOR'S ORGANIZ ATION 08/24/2023 [facility] DATE CREATED AUTHOR AUTHOR'S ORGANIZ ATION 04/06/2024 [facility] DATE CREATED AUTHOR AUTHOR'S ORGANIZ ATION 10/03/2024 [facility] DATE CREATED AUTHOR AUTHOR'S ORGANIZ ATION 11/01/2024 [facility] DATE CREATED AUTHOR AUTHOR'S ORGANIZ ATION 01/31/2025 [facility] Ordered Prescriptions (unrec ognized section and content) PrescriptionSigDispensedRefillsStart DateEnd Date cephALEXin (KEFLEX) 500 MG capsule Take 1 capsule by mouth 3 times daily for 7 days 21 capsule HYDROcodone-acetaminophen (NORCO) 5-325 MG per tablet Indications:Post-op painTake 1 tablet by mouth every 6 hours as needed for Pain for up to 7 days. Intended supply: 7 days. Take lowest dose possible to manage pain Max Daily Amount: 4 tablets 28 tablet rescriptionSigDispense QuantityRefillsLast FilledStart DateEnd Date benzonatate (TESSALON) 200 MG capsule Take 1 capsule by mouth 3 times daily as needed for Cough 30 capsule albuterol sulfate HFA (VENTOLIN HFA) 108 (90 Base) MCG/ACT inhaler Inhale 2 puffs into the lungs 4 times daily as needed for Wheezing 18 g 01/25/2025 azithromycin (ZITHROMAX) 250 MG tablet 500mg on day 1 followed by 250mg on days 2 - 5 6 tablet /PrescriptionSigDispense QuantityRefillsLast FilledStart Date End Date methylPREDNISolone (MEDROL, BELA,) 4 MG tablet Take by mouth. 1 kit / amoxicillin-clavulanate (AUGMENTIN) 875-125 MG per tablet Take 1 tablet by mouth 2 times daily for 7 days 14 tablet Scheduled Active and Recently Administ ered Medications (unrecognized section and content) Medication Order/// ceFAZolin (ANCEF) 3,000 mg in sodium chloride 0.9 % 100 mL IVPB (COMPLETED) 3,000 mg, IntraVENous, METAL TREATER TO O.R., 1 dose, On Fri10/06/23 at 1030, Antimicrobial Indications: Surgical Prophylaxis, Administer within 1 hour prior to incision. Recommend to repeat in 3-4 hours after initial dose if still intra- op., Pre-op (day of surgery) * 1127 (New Bag - Provider: Kendal Araya RN - Comment: pre op atb) * 1157 (Due: Stopped - Provider: Kendal Araya RN) sodium chloride flush 0.9 % injection 5-40 mL 5-40 mL, IntraVENous, EVERY 12 HOURS SCHEDULED (2 times per day), First dose on Fri10/06/23 at 1030, Until Discontinued, For Line Patency: Peripheral IV = 5 mL; Midline or Central Line = 10 mL/lumen.If following IV push medication, administer flush at same rate as the IV push. Flush volume is determined by type of infusion therapy being given. For non-viscous solutions use: Peripheral IV = 5 mL Midline or Central Line = 10 mL/lumen For viscous solutions (i.e. blood components, parenteral nutrition, contrast media, or after obtaining blood sample) use: Peripheral IV = 10 mL Midline or CentralLine = 20 mL/lumen, Pre-op (day of surgery) * 1030 (Due) * 2100 (Due) Medication Order// lactated ringers IV soln infusion IntraVENous, at 125 mL/hr, CONTINUOUS, Starting on Fri10/06/23 at 1030, Pre-op (day of surgery) * 1014 (New Bag - Provider: Gris Renteria RN) * 1130 (NoRateChange - Provider: JAH Green CRNA) * 1259 (Anesthesia Volume Adjustment - Provider: JAH Green CRNA) Medication Order// 0.9 % sodium chloride infusion IntraVENous, at [...] less into rate field of order., Pre-op (dayof surgery) BUPivacaine-EPINEPHrine PF (MARCAINE-w/EPINEPHrine) 0.5% -[id number] injection (CANCELED) PRN, Starting on Fri10/06/23 at 1257, Until Fri10/06/23 at 1309, Intra-op * 1257 (Given - Provider: Carlito Leung, DO - Comment: used 30mls for case) sod chloride IRR soln 0.9 % irrigation (COMPLETED) CONTINUOUS PRN, Starting on Fri10/06/23 at 1224, Intra-op * 1224 (New Bag - Provider: Carlito Leung, DO - Comment: poured into sterile basin on sterile field) sodium chloride flush 0.9 % injection 5-40 mL 5-40 mL, IntraVENous, PRN, Starting on Fri10/06/23 at 1013, Until Discontinued, Line Care, After [...] For viscous solutions (i.e. blood components, parenteral nutrition,contrast media, or after obtaining blood sample) use: Peripheral IV = 10 mL Midline or Central Line= 20 mL/lumen, Pre-op (day of surgery) Medication Order///09/2024 lactated ringers infusion IntraVENous, at 100 mL/hr, CONTINUOUS, Starting on Dominique 10/28/24 at 0845, Pre-op (day of surgery) * 0829 (New Bag - Provider: Sarah Foote, FUAD) * 0918 (NoRateChange - Provider: Sammy Parry APRN - JOINTER MACHINE) * 0941 (Anesthesia Volume Adjustment - Provider: JAH Green CRNA) Medication Order//20240324/06/2024 azithromycin (ZITHROMAX) tablet 500 mg (COMPLETED) 500 mg, Oral, ONCE, 1 dose, On Fri01/25/25 at 0830, Antimicrobial Indications: Pneumonia (CAP) * 0830 (Given - Provider: Lilli Burrell RN) Medication Order/ ipratropium 0.5 mg-albuterol 2.5 mg (DUONEB) nebulizer solution 1 Dose (COMPLETED) 1 Dose, Inhalation, Once, 1 dose, On Fri01/30/25 at 1545, Initiate RT Bronchodilator Protocol: Yes - Inpatient Protocol * 1555 (Given - Provider: Thea Reina RCP) methylPREDNISolone sodium succ (SOLU-MEDROL) 125 mg in sterile water 2 mL injection (COMPLETED) 125 mg, IntraVENous, ONCE, On 01/30/25 at 1545, For 1 dose, Reconstitute 125 mg vial with 2 mL diluent. * 1550 (Given - Provider: César Silva RN) FOR RECORDS PERTAINING TO PATIENTS WHO ARE [...] THE PRIMARY CLINICAL RECORDS. [facility]. provides no warranty or guarantee of the accuracy or completeness of information in this document.
--- NOTE | 2025-02-03 13:03 | PM.CN ---
Consult Note: HPI Data of Consult Patient: known to practice within the last 3 years Requesting Physician: Riri Hastings NP Primary Care Provider: Jenn Barry NP Consult Narrative Reason for consult: low back pain Narrative: Hair Santos a pleasant 49 year old male with chronic low back pain > 1 year unresponsive to > 6 weeks of provider guided HEP/PT, heat, ice, tylenol, nsaids presents for evaluation. Since last visit pt completed mdp with mild relief while taking, and is utilizing pregabalin 50mg tid without benefit. denies side effects. Pain has slightly improved, noting pain 2-3/10 increasing to 7-8/10 by evenings. notes constant low back pain with intermittent LLE pain. Pain increasing with stairs, activity, sleep, lifting, and transitioning from seated to standing. denies fall/injury. denies loss of bowel/bladder. cc:: CC: Riri Hastings NP Review of Systems ROS Musculoskeletal Reports: back pain PFSH PFSH Medical History Neck pain ?M54.2 - Cervicalgia (ICD-10) Obesity ?E66.9 - Obesity, unspecified (ICD-10) Back pain ?M54.9 - Dorsalgia, unspecified (ICD-10) Anxiety ?F41.9 - Anxiety disorder, unspecified (ICD-10) Diabetes ?E11.9 - Type 2 diabetes mellitus without complications (ICD-10) Kidney stone ?N20.0 - Calculus of kidney (ICD-10) MARKO treated with BiPAP ?G47.33 - Obstructive sleep apnea (adult) (pediatric) (ICD-10) Sleep apnea ?G47.30 - Sleep apnea, unspecified (ICD-10) Asthma ?J45.909 - Unspecified asthma, uncomplicated (ICD-10) Angina at rest ?I20.89 - Other forms of angina pectoris (ICD-10) HTN (hypertension) ?I10 - Essential (primary) hypertension (ICD-10) Surgical History History of carpal tunnel release ?Z98.890 - Other specified postprocedural states (ICD-10) Meds Home Medications and Allergies Home Medications ?Medication ?Instructions ?Recorded ?Confirmed ?Type allopurinol 300 mg tablet 300 mg PO Q12H 10/24/22 03/22/24 History amlodipine 10 mg tablet 10 mg PO QDAY 10/24/22 03/22/24 History aspirin 81 mg tablet,delayed 81 mg PO QDAY 10/24/22 03/22/24 History release buspirone 10 mg tablet 10 mg PO QDAY 10/24/22 03/22/24 History losartan 100 1 tab PO QDAY 10/24/22 03/22/24 History mg-hydrochlorothiazide 25 mg tablet pravastatin 40 mg tablet 40 mg PO QDAY 10/24/22 03/08/24 History tizanidine 4 mg tablet 4 mg PO DAILY 10/24/22 01/10/25 History Held on 03/22/24. Instructions: on hold sertraline 50 mg tablet 50 mg PO DAILY 03/22/24 03/22/24 History spironolactone 25 mg tablet 25 mg PO DAILY 03/22/24 03/22/24 History (Aldactone) acetaminophen 325 mg tablet (Pain 325 mg PO Q6H PRN pain 01/10/25 01/10/25 History Reliever (acetaminophen)) methylprednisolone 4 mg tablets in 4 mg PO DAILY #21 ea 01/10/25 Rx a dose pack (Medrol (Regis)) pregabalin 50 mg capsule (Lyrica) 50 mg PO TID #90 caps 01/10/25 Rx Allergies Allergy/AdvReac Type Severity Reaction Status Date / Time No Known Drug Allergies Allergy Verified 03/22/24 09:15 Exam Constitutional Documenting provider has reviewed patient's vital signs: yes Common normals: no apparent distress, oriented x3 and alert General appearance: cooperative [facility] Common normals: normocephalic, hearing grossly normal bilaterally and moist oral mucous membranes Head and scalp: normocephalic Eye Common normals: PERRL Pupil: PERRL Neck & C-Spine Common normals: full ROM General: normal visual inspection Chest Common normals: inspection of chest normal Respiratory Common normals: normal respiratory effort, no retractions and no use of accessory muscles Back & Pelvis Lumbar spine/lower back: ROM limited, pain with ROM and straight leg raise positive left Other: radiculopathy noted left L4,5,S1 strength 4/5 in LLE and 5/5 in RLE Neuro Common normals: oriented x3 Sensorium/orientation: alert Psych Common normals: mental status grossly normal, thought process normal, cooperative, affect normal, speech normal and activity/motor behavior normal Speech: normal speech Thought process: normal thought process Results Additional Findings Additional findings: If on a controlled substance or opioids, I have checked an [place] report on this patient and there are no aberrancies noted in the prescribing history.??If on a controlled substance or opioid a drug screen was completed and reviewed within the last year, and if there has not been a drug screen completed we ordered one today to monitor higher risk, state monitored pain medication use. As part of providing excellent, safe, comprehensive care, the following was completed at our patient's visit: 1. A medication reconciliation and review to ensure accurate knowledge of current/active medications, including asking our patients to inform us about any [id number] medications or herbal remedies/nutritional supplements/alternative remedies. 2. A review to specifically ensure our patients have had annual screening for screening for depression, screening for tobacco use, and screening for unhealthy alcohol use. For concerning screenings had a discussion with the patient, provided patient education, and recommended follow-up with primary care provider when appropriate. If patient noted with a risk of falling, they received education on strength, gait, and balance training to prevent future risk of falling. Portions of this note may have been carried over from the previous visit and updated as appropriate. Please note this office utilizes paper charting in addition to the electronic medical record. A list of current medications, vitals, and PMH is available there as the clinical staff outside of myself do not have access to [employer] charting during the clinic day operations. As part of providing quality comprehensive care the current medications, vitals, and PMH were reviewed in the paper chart. Assessment and Plan Assessment and Plan (1) Degenerative disc disease (DDD) of lumbar region with axial back pain and referred sclerotomal pain: (2) Lumbar stenosis with neurogenic claudication: Plan The patient has had over 3 months of moderate to severe low back and LLE pain with functional impairment and inadequate response to conservative care including NSAIDS (unless there are contraindication such as concurrent blood thinners), multiple oral or topical pain medications, and home exercise program/physical therapy.? Patient has completed >6 weeks of guided home exercise program and/or formal physical therapy program without relief of their symptoms.? The Oswestry Disability Index was completed, and the patient scored a 27%.? update lumbar MRI without contrast to assess lumbar ddd with low back and LLE pain as well as lumbar stenosis with NC in consideration of interventional therapy vs NS consult increase pregabalin 100mg tid, risks vs benefits reviewed continue otc tylenol and motrin can continue tizanidine 4mg hs prn pain/spasms f/u to review lumbar MRI
== END 2025-02-03 12:36 | disposition home or self-care (01) ==
LOC: PM 12:36
PROVIDERS: PCP Nurse Practitioner; Visit Provider Nurse Practitioner
DX: M51.362 Other intervertebral disc degeneration, lumbar region with discogenic back pain and lower extremity pain (principal); M48.062 Spinal stenosis, lumbar region with neurogenic claudication
CPT/HCPCS: G0463

== ENCOUNTER 2025-03-02 10:10 | Outpatient (OUT) | payer OTHER, SELFPAY ==
--- NOTE | 2025-03-02 10:16 | PM.CN ---
Consult Note: HPI Data of Consult Patient: known to practice within the last 3 years Requesting Physician: Riri Hastings NP Primary Care Provider: Jenn Barry NP Consult Narrative Reason for consult: low back pain Narrative: Hair Santos a pleasant 50 year old male with chronic low back pain > 1 year unresponsive to > 6 weeks of provider guided HEP/PT, heat, ice, tylenol, nsaids presents for evaluation. Patient is utilizing pregabalin 50mg tid without benefit. denies side effects. Pain has slightly improved, noting pain 6/10 increasing to 7-8/10 by evenings. notes constant low back pain with intermittent LLE pain. Pain increasing with stairs, activity, sleep, lifting, and transitioning from seated to standing. denies fall/injury. denies loss of bowel/bladder. cc:: CC: Riri Hastings NP Review of Systems ROS Musculoskeletal Reports: back pain PFSH PFSH Medical History Neck pain ?M54.2 - Cervicalgia (ICD-10) Obesity ?E66.9 - Obesity, unspecified (ICD-10) Back pain ?M54.9 - Dorsalgia, unspecified (ICD-10) Anxiety ?F41.9 - Anxiety disorder, unspecified (ICD-10) Diabetes ?E11.9 - Type 2 diabetes mellitus without complications (ICD-10) Kidney stone ?N20.0 - Calculus of kidney (ICD-10) MARKO treated with BiPAP ?G47.33 - Obstructive sleep apnea (adult) (pediatric) (ICD-10) Sleep apnea ?G47.30 - Sleep apnea, unspecified (ICD-10) Asthma ?J45.909 - Unspecified asthma, uncomplicated (ICD-10) Angina at rest ?I20.89 - Other forms of angina pectoris (ICD-10) HTN (hypertension) ?I10 - Essential (primary) hypertension (ICD-10) Surgical History History of carpal tunnel release ?Z98.890 - Other specified postprocedural states (ICD-10) Meds Home Medications and Allergies Home Medications ?Medication ?Instructions ?Recorded ?Confirmed ?Type allopurinol 300 mg tablet 300 mg PO Q12H 10/24/22 03/22/24 History amlodipine 10 mg tablet 10 mg PO QDAY 10/24/22 03/22/24 History aspirin 81 mg tablet,delayed 81 mg PO QDAY 10/24/22 03/22/24 History release buspirone 10 mg tablet 10 mg PO QDAY 10/24/22 03/22/24 History losartan 100 1 tab PO QDAY 10/24/22 03/22/24 History mg-hydrochlorothiazide 25 mg tablet pravastatin 40 mg tablet 40 mg PO QDAY 10/24/22 03/08/24 History tizanidine 4 mg tablet 4 mg PO DAILY 10/24/22 01/10/25 History Held on 03/22/24. Instructions: on hold sertraline 50 mg tablet 50 mg PO DAILY 03/22/24 03/22/24 History spironolactone 25 mg tablet 25 mg PO DAILY 03/22/24 03/22/24 History (Aldactone) acetaminophen 325 mg tablet (Pain 325 mg PO Q6H PRN pain 01/10/25 01/10/25 History Reliever (acetaminophen)) methylprednisolone 4 mg tablets in 4 mg PO DAILY #21 ea 01/10/25 Rx a dose pack (Medrol (Regis)) pregabalin 50 mg capsule (Lyrica) 50 mg PO TID #90 caps 01/10/25 Rx Allergies Allergy/AdvReac Type Severity Reaction Status Date / Time No Known Drug Allergies Allergy Verified 03/22/24 09:15 Exam Constitutional Documenting provider has reviewed patient's vital signs: yes Common normals: no apparent distress, oriented x3 and alert General appearance: cooperative [facility] Common normals: normocephalic, hearing grossly normal bilaterally and moist oral mucous membranes Head and scalp: normocephalic Eye Common normals: PERRL Pupil: PERRL Neck & C-Spine Common normals: full ROM General: normal visual inspection Chest Common normals: inspection of chest normal Respiratory Common normals: normal respiratory effort, no retractions and no use of accessory muscles Back & Pelvis Lumbar spine/lower back: ROM limited, pain with ROM and straight leg raise positive left Other: radiculopathy noted left L4,5,S1 strength 4/5 in LLE and 5/5 in RLE Neuro Common normals: oriented x3 Sensorium/orientation: alert Psych Common normals: mental status grossly normal, thought process normal, cooperative, affect normal, speech normal and activity/motor behavior normal Speech: normal speech Thought process: normal thought process Results Additional Findings Additional findings: If on a controlled substance or opioids, I have checked an [place] report on this patient and there are no aberrancies noted in the prescribing history.??If on a controlled substance or opioid a drug screen was completed and reviewed within the last year, and if there has not been a drug screen completed we ordered one today to monitor higher risk, state monitored pain medication use. As part of providing excellent, safe, comprehensive care, the following was completed at our patient's visit: 1. A medication reconciliation and review to ensure accurate knowledge of current/active medications, including asking our patients to inform us about any [id number] medications or herbal remedies/nutritional supplements/alternative remedies. 2. A review to specifically ensure our patients have had annual screening for screening for depression, screening for tobacco use, and screening for unhealthy alcohol use. For concerning screenings had a discussion with the patient, provided patient education, and recommended follow-up with primary care provider when appropriate. If patient noted with a risk of falling, they received education on strength, gait, and balance training to prevent future risk of falling. Portions of this note may have been carried over from the previous visit and updated as appropriate. Please note this office utilizes paper charting in addition to the electronic medical record. A list of current medications, vitals, and PMH is available there as the clinical staff outside of myself do not have access to [facility] charting during the clinic day operations. As part of providing quality comprehensive care the current medications, vitals, and PMH were reviewed in the paper chart. Assessment and Plan Assessment and Plan (1) Degenerative disc disease (DDD) of lumbar region with axial back pain and referred sclerotomal pain: (2) Lumbar stenosis with neurogenic claudication: Plan The patient has had over 3 months of moderate to severe low back and LLE pain with functional impairment and inadequate response to conservative care including NSAIDS (unless there are contraindication such as concurrent blood thinners), multiple oral or topical pain medications, and home exercise program/physical therapy.? Patient has completed >6 weeks of guided home exercise program and/or formal physical therapy program without relief of their symptoms.? The Oswestry Disability Index was completed, and the patient scored a 27%.? lumbar MRI reviewed with pt. consistent with multilvel stenosis, ddd, and spondylosis. pt declining NS consultation. proceed with left L4-5 L5-S1 TFESI under fluoroscopy for lumbar ddd and LLE pain as well as lumbar stenosis with NC wean off of pregabalin 100mg TID, pt not finding any relief what so ever pt pt continue otc tylenol and motrin start hydrocodone-acetaminophen 5-325mg daily as needed 7 tabs to last at least 7 days for moderate to severe pain. risks vs benefits reviewed. pt noting moderate to severe pain unresponsive to mobic, tylenol, motrin, lyrica. can continue tizanidine 4mg hs prn pain/spasms f/u 2 weeks after TFESI
--- OUTSIDE RECORDS SUMMARY | 2025-03-02 10:19 | XMS_ITS | CCD ---
Author Organization [facility] Providers Care [place] Operator Name Role Phone Alexandra Gill Unavailable DimasAlexandra martínez Unavailable JUSTO Cannon Attending Provider [phone] Mamie Cannon Unavailable FAWWAD, YIN H Admitting [...] Unavailable Steven SIMS, Richard Primary Care Provider [phone] White BOWL SANDER, Anna Unavailable Maddie SIMS, Swapnil Cummins Attending Unavailable Maddie SIMS, Andeliana Cummins Attending Unavailable Maddie SIMS, Andrius Cummins Attending Unavailable Maddie SIMS, Andeliana Cummins Attending Unavailable Shaikh Cordoba MD Primary Care Provider Richard Harris MD Primary Care Provider Christopher BOWL SANDER, Anna Unavailable Asha COMBO WELDER - BOWL SANDER, Jenn Covarrubias Primary Care Provide r JENN BARRY Attending Unavailable JENN BARRY Attending Unavailable ANNA WHITE Attending Unavailabl MORGAN Vergara Admitting Unavailable MORGAN LOVELL Attending Unavailable JENN BARRY Primary Care Unavailable Shaikh Cordoba MD Primary Care Provider Richard Harris MD Primary Care Provider Unallocated , [place] Provider Primary Care Provi stefano Richard Harris MD Primary Care Provider Asha BOWL SANDER-C, Jenn Sage Primary Care Provider Asha BOWL SANDER-C, Jenn Sage Attending Provider JENN BARRY. Primary [...] oral tablet (20 sources)Opioid AgonistStart: 10-06-2023 End: 43-49-5148kzpw 1 tablet by mouth every six hours as neededHYDROcodone- acetaminophen ([place]) 5-325 MG tablet Take 1 tablet by mouth every 6 (six) hours if needed 10/06/2023 [id number] 200 actuat albuterol 0.09 mg/actuat metered dose inhaler (4 sources)beta2-Adrenergic AgonistStart: 08-45-3318tlzy 2 puff(s) by inhalation four times daily as needed for wheezingalbuterol sulfate HFA (VENTOLIN HFA) 108 (90 Base) MCG/ACT inhaler Inhale 2 puffs into the lungs 4 times daily as needed for Wheezing 18 g 01/25/2025 ActiveStart: 46-42-4659cmtv 2 puff(s) by inhalation every four to six hours as neededAlbuterol Sulfate HFA 108 (90 Base) MCG/ACT 2 puffs as needed Inhalation every 4-6 hours for 14 days Jan, ActiveStart: 44-27-4283lkhf 2 puff(s) by inhalation every four hours as neededAlbuterol Sulfate HFA 108 (90 Base) MCG/ACT 2 puffs as needed Inhalation every 4 hrs Nov, Activeallopurinol 300 mg oral tablet (20 sources)Xanthine Oxidase InhibitorStart: 10-01-2023 End: 00-67-9309trxz 1 tablet by mouth once dailyAllopurinol 300 mg tablet Active 300 MG PO Daily November 25, 2024 12:00am Complies with drug therapytake 1 tablet by mouth once dailyallopurinol (ZYLOPRIM) 100 MG tablet Take 1 tablet by mouth daily ActiveamLODIPine 5 mg oral tablet (20 sources)Dihydropyridine Calcium Channel BlockerStart: 40-67-0151exjf 1 tablet by mouth once dailyAmlodipine 5 mg tablet Active 5 MG PO Daily November 25, 2024 12:00am Complies with drug therapyStart: 03-29-2024 End: 79-54-9104cwvj 1 tablet by mouth once dailyamLODIPine (Norvasc) 10 MG tablet Indications: Essential hypertension Take 1 tablet (10 mg) by mouth Daily 90 tablet 1 09/29/2024 12/28/2024 ActiveStart: 10-01-2023 End: 68-30-3780sljw 1 tablet by mouth once dailyamLODIPine (Norvasc) 10 MG tablet Indications: Essential hypertension (CMS/HCC) Take 1 tablet (10 mg) by mouth Daily 90 tablet 1 03/08/2024 03/25/2024 Discontinued (Reorder)take 1 tablet by mouth once dailyamLODIPine (NORVASC) 2.5 MG tablet Take 1 tablet by mouth daily ActiveamLODIPine Besylate Activeamoxicillin 875 mg / clavulanate 125 mg oral tablet (1 source)Penicillin-class AntibacterialStart: 01-30-2025 End: 62-38-1364chuq 1 tablet by mouth twice dailyamoxicillin-clavulanate (AUGMENTIN) 875-125 MG per tablet Take 1 tablet by mouth 2 times daily for 7 days 14 tablet 01/30/2025 02/06/2025 ActiveASA (6 sources)ASA Activeaspirin 81 mg delayed release oral tablet (20 sources)Platelet Aggregation Inhibitor, Nonsteroidal Anti-inflammatory Drug Start: 21-70-4355ygji 1 tablet by mouth once dailyAspirin (Enteric Coated Aspirin) 81 mg tablet,delayed release (DR/EC) Active 81 MG PO Daily 90 1 Nov 12:00am Hyperlipidemia Primary hypertension Type 2 diabetes mellitus without complications Hyperlipidemia, unspecified Essential (primary) hypertension Complies with drug therapyStart: 11-25-2024 End: 77-41-0187xgrc 1 tablet by mouth once dailyAspirin 81 mg tablet Discontinued 81 MG PO Daily 90 December 17, 2024 6:37am December 21 5:30pm Primary hypertension Hyperlipidemia Type 2 diabetes mellitus without complications Essential (primary) hypertension Hyperlipidemia, unspecifiedStart: 06-29-2024 End: 43-64-7845rfdx 1 tablet by mouth once dailyaspirin 81 MG EC tablet Indications: Essential hypertension , Type 2 diabetes mellitus without compl ication, without long-term current use of insulin (HCC) Take 1 tablet (81 mg) by mouth Daily 90 tablet 1 06/29/2024 09/29/2024 ActiveAtenolol (6 sources)beta-Adrenergic BlockerAtenolol Activeatorvastatin 20 mg oral tablet (17 sources)HMG-CoA Reductase InhibitorStart: 09-02-2024 End: 53-86-7136lyvb 1 tablet by mouth once dailyatorvastatin (LIPITOR) 20 MG tablet Take 1 tablet by mouth nightly 09/02/2024 Activeazithromycin 250 mg oral tablet (3 sources)Macrolide AntimicrobialStart: 01-25-2025 End: 12-57-4285gxmtvlijafxn (ZITHROMAX) 250 MG tablet 500mg on day 1 followed by 250mg on days 2 - 5 6 tablet 01/25/2025 02/04/2025 ActiveStart: 01-25-2025 End: 61-42-1431qbpk 1 capsule by mouth seet948 mg, Oral, ONCE, 1 dose, On Fri01/25/25 at 0830, Antimicrobial Indications: Pneumonia (CAP)benzonatate 200 mg oral capsule (3 sources)Non-narcotic AntitussiveStart: 01-25-2025 End: 27-11-9660aifr 1 capsule by mouth three times daily as needed for cough benzonatate (TESSALON) 200 MG capsule Take 1 capsule by mouth 3 times daily as needed for Cough 30 capsule 01/25/2025 02/04/2025 ActiveStart: 35-61-5511xbaq 1 capsule by mouth three times daily as neededTessalon Perles 100 MG 1 capsule as needed Orally Three times a day Nov, ActiveBlood Glucose Monitoring Suppl (OneTouch Verio Flex System) w/Device kit (4 sources)Start: 65-41-6439Crvvv Glucose Monitoring Suppl (OneTouch Verio Flex System) w/Device kit USE DIRECTED 5ActivebusPIRone hydrochloride 15 mg oral tablet (20 sources)Start: 11-25-2024 End: 77-56-6771shni 1 tablet by mouth three times dailyBuspirone 15 mg tablet Active 15 MG PO Three times daily 270 0 January 17, 2025 1:11pm Anxiety with depression Other specified anxiety disorders Complies with drug therapyStart: 06-29-2024 End: 06-66-9190afnq 1 tablet by mouth every eight hoursbusPIRone (Buspar) 15 MG tablet Indications: JAN (generalized anxiety disorder) Take 1 tablet (15 mg) by mouth every 8 (eight) hours if needed (anxiety) 270 tablet 1 06/29/2024 Active Start: 10-01-2023 End: 08-41-3006owdu 1 tablet by mouth three times daily [...] lactate 0.028 meq/ml injectable solution (2 sources)Start: 18-14-0967UzyzvWPWqvb, at 100 mL/hr, CONTINUOUS, Starting on Dominique 10/28/24 at 0845, Pre-op (day of surgery)Start: 08-50-1032gopfcspg ringers IV soln infusioncephalexin 500 mg oral capsule (10 sources)Cephalosporin AntibacterialStart: 10-06-2023 End: 59-60-2902szit 1 capsule by mouth in the morning, then take 1 capsule by mouth in the evening, then take 1 capsule by mouth at bedtimecephalexin (Keflex) 500 MG capsule Take 500 mg by mouth in the morning and 500 mg in the evening and 500 mg before bedtime. 10/06/2023 12/30/2023 Discontinued (Therapy completed) Start: 10-06-2023 End: 91-32-4565tbxj 1 capsule by mouth three times dailycephALEXin (KEFLEX) 500 MG capsule Take 1 capsule by mouth 3 times daily for 7 days 21 capsule 0 10/13/2023 ActiveStart: 18-83-7608ycue 1 capsule by mouth every twelve hoursCephalexin 500 MG 1 capsule Orally two times a day for 5 day(s) Sep, ActiveStart: 23-10-2972zuwy 1 tablet by mouth every twelve hoursCephalexin 500 MG 1 tablet Orally every 12 hrs for 10 day(s) Apr, ActiveContinuous Glucose Thermal Cutter Helper (Dexcom G7 Thermal Cutter Helper) device (9 sources)Start: 01-05-2024 End: 32-94-1574Tpcdgzmcii Glucose Thermal Cutter Helper (Dexcom G7 Thermal Cutter Helper) device Indications: Type 2 diabetes mellitus without complication, without long-term current use of insulin 1 each continuously 1 each 2 01/05/2024 06/29/2024 Discontinued (Cost of medication)Start: 78-94-5153Bfxywopbvr Glucose Thermal Cutter Helper (Dexcom G7 Thermal Cutter Helper) device Indications: Type 2 diabetes mellitus without complication, without long-term current use of insulin (CMS/HCC) 1 each continuously 1 each 2 01/05/2024 ActiveContinuous Glucose Sensor (D[facility]7 Sensor[facility] ([facility])Start: 01-05-2024 End: 62-97-9262Utsfpsokjh Glucose Sensor (Dexcom G7 Sensor) [facility] Indications: Type 2 diabetes mellitus without complication, without long-term current use of insulin 1 each continuously 3 each 1 01/05/2024 06/29/2024 Discontinued (Cost of medication)Start: 61-93-5013Quwniqtlzu Glucose Sensor (Dexcom G7 Sensor) [facility] Indications: Type 2 diabetes mellitus without complication, without long-term current use of insulin (CMS/HCC) 1 each continuously 3 each 1 01/05/2024 Active Continuous Glucose Sensor (FreeStyle Marlon 2 Sensor) [facility] ([facility])Start: 09-22-2023 End: 51-23-4116Oumfwzilci Glucose Sensor (FreeStyle Marlon 2 Sensor) [facility] Indications: Type 2 diabetes mellitus without complication, without long-term current use of insulin 1 each by Other route every 14 (fourteen) days 6 each 1 09/22/2023 06/29/2024 Discontinued (Cost of medication)Start: 09-22-2023 Continuous Glucose Sensor (FreeStyle Marlon 2 Sensor) [facility] Indications: Type 2 diabetes mellitus without complication, without long-term current use of insulin (CMS/HCC) 1 each by Other route every 14(fourteen) days 6 each 1 09/22/2023 Activeempagliflozin (6 sources)Sodium-Glucose Cotransporter 2 InhibitorJARDIANCE Activefluticasone propionate 0.05 mg/actuat metered dose nasal spray (2 sources)CorticosteroidStart: 65-68-9375homc 1 spray(s) nasal route once daily Fluticasone Propionate 50 MCG/ACT 1 spray in each nostril Nasally Once a day for 21 days 13 Sep, 2021 ActiveglipiZIDE 5 mg oral tablet (15 sources)SulfonylureaStart: 10-01-2023 End: 05-56-3168vvjc 1 tablet by mouth in the morningglipiZIDE [...] Diuretic, Angiotensin 2 Receptor BlockerStart: 10-01-2023 End: 03-93-0450ovbz 1 tablet by mouth once dailyLosartan-Hydrochlorothiazide 100-25 mg tablet Active 1 TAB PO Daily November 25, 2024 12:00am Complies with drug therapyhydrOXYzine (6 sources)AntihistaminehydrOXYzine HCl ActiveLisinopril (6 sources)Angiotensin Converting Enzyme InhibitorLisinopril Active methylPREDNISolone 4 mg oral tablet (2 sources)CorticosteroidStart: 01-30-2025 End: 79-56-5743faphnbWXCJTQGoqlzp (MEDROL, BELA,) 4 MG tablet Take by mouth. 1 kit 01/30/2025 02/05/2025 ActiveStart: 98-54-7735isrdkyQVOHSOJwqyov 4 MG as directed Orally Once a day for 6 days Nov, Activemupirocin 0.02 mg/mg topical ointment (14 sources)RNA Synthetase Inhibitor AntibacterialStart: 10-06-2023 End: 63-30-1352takfztgqo (Bactroban) 2 % ointment 10/06/2023 06/29/2024 Discontinued (Therapy completed)Start: 47-44-4151Mmmofgfey 2 % 1 application Externally Three times a day for 7 days Apr, Activeofloxacin 3 mg/ml otic solution (12 sources)Quinolone AntimicrobialStart: 08-11-2023 End: 14-32-3129wpgagwubx (Floxin) 0.3 % otic solution instill 5 (FIVE) DROPS into the affected EAR TWICE DAILY FOR7 DAYS 08/11/2023 06/29/2024 Discontinued (Therapy completed)OZEMPIC, 2 MG/DOSE, 8 MG/3ML SOPN sc injection (6 sources)Start: 06-84-0906ZSCHITT, 2 MG/DOSE, 8 MG/3ML SOPN sc injection Inject 2 mg into the skin every 7 days 08/04/2024 Activepregabalin 50 mg oral capsule (1 source)Start: 58-54-7986uons 1 capsule by mouth every eight hoursPregabalin 50 mg capsule Active 50 MG PO Every 8 hours January 19, 2025 12:00am Complies with drug therapySemaglutide (1 source)Start: 96-45-0674dtymhu 2 mg by subcutaneous injection every week Semaglutide 2 mg/dose (8 mg/3 mL) pen injector Active 2 MG SUBCUT every week November 25, 2024 12:00am Complies with drug therapySemaglutide, 2 MG/DOSE, (Ozempic, 2 MG/DOSE,) 8 MG/3ML solution pen-injector (20 sources)Start: 17-27-8026Epgjeohygrk, 2 MG/DOSE, (Ozempic, 2 MG/DOSE,) 8 MG/3ML [...] days 9 mL 08/04/2024 ActiveStart: 05-31-2024 End: 62-57-5295Sujiqnrdpfc, 2 MG/DOSE, (Ozempic, 2 MG/DOSE,) 8 MG/3ML solution pen-injector Indications: Type 2 diabetes mellitus without complication, without long-term current use of insulin Inject 2 mg under theskin every 7 (seven) days 9 mL 1 05/31/2024 08/29/2024 ActiveStart: 49-27-3471Muqxgzmvftd, 2 MG/DOSE, (Ozempic, 2 MG/DOSE,) 8 MG/3ML solution pen-injector Indications: Type 2 collette betes mellitus without complication, without long-term current use of insulin (CMS/HCC) Inject 2 mgunder the skin every 7 (seven) days 9 mL 1 01/26/2024 ActiveStart: 01-26-2024 End: 97-71-8439Rtlahcirpdk, 2 MG/DOSE, (Ozempic, 2 MG/DOSE,) 8 MG/3ML solution pen-injector Indications: Type 2 diabetes mellitus without complication, without long-term current use of insulin (CMS/HCC) Inject 2 mgunder the skin every 7 (seven) days 9 mL 1 01/26/2024 04/25/2024 ActiveStart: 15-80-4625Dpthinlzvwh, 2 MG/DOSE, (Ozempic, 2 MG/DOSE,) 8 MG/3ML solution pen-injector Indications: Type 2 diabetes mellitus without complication, without long-term current use of insulin (CMS/HCC) Inject 2 mgunder the skin every 7 (seven) days 9 mL 1 10/01/2023 Activesertraline 50 mg oral tablet (20 sources)Serotonin Reuptake InhibitorStart: 83-10-7662knpz 1 tablet by mouth once dailySertraline 50 mg tablet Active 50 MG PO Daily November 25, 2024 12:00am Complies with drug therapyStart: 10-01-2023 End: 97-88-2619ksiq 1 tablet by mouth once dailysertraline (Zoloft) [...] 25 mg oral tablet (20 sources)Aldosterone AntagonistStart: 21-82-5843Cojjhoixdfmwvt (Aldactone) 25 mg tablet Active 12.5 MG PO Daily November 25, 2024 12:00am Complies with drug therapyStart: 10-01-2023 End: 10-53-9619bhoz 1 tablet by mouth once dailyspironolactone (Aldactone) 25 MG tablet Indications: Essential hypertension Take 1 tablet (25 mg) by mouth Daily 90 tablet 1 09/29/2024 12/28/2024 ActivetiZANidine 4 mg oral capsule (20 sources)Central alpha-2 Adrenergic AgonistStart: 76-09-5340nnsw 1 capsule by mouth every eight hours as neededTizanidine 4 mg capsule Active 4 MG PO Every 8 hours as needed November 25, 2024 12:00am Muscle spasm Other muscle spasm Complies with drug therapyStart: 10-01-2023 End: 72-26-3469rpbn 1 tablet by mouth every eight hours [...] solution (1 source)Anticholinergic, beta2-Adrenergic AgonistStart: 01-30-2025 End: 35-40-7290szti 1 dose by inhalation once1 Dose, Inhalation, Once, 1 dose, On 01/30/25 at 1545, Initiate RT Bronchodilator Protocol: Yes - Inpatient Protocolcarvedilol 25 mg oral tablet (20 sources)alpha-Adrenergic Micheal, beta-Adrenergic BlockerStart: 11-25-2024 End: 01-21-5127gyzx 1 tablet by mouth every twelve hours at mealtimeCarvedilol 25 mg tablet Discontinued 25 MG PO Every 12 hours November 25, 2024 12:00am January 19, 2025 3:02pm must administer with a meal/foodStart: 10-01-2023 End: 96-55-1441zflr 1 tablet by mouth in the morningcarvedilol [...] 100 mL IVPB (1 source)Start: 10-06-2023 End: 55-19-3703byYWUqxlx (ANCEF) 3,000 mg in sodium chloride 0.9 % 100 mL IVPB cefTRIAXone (4 sources)Cephalosporin AntibacterialStart: 85-97-8917Mezaisko 500 mg May, 1 ghydroCHLOROthiazide 12.5 mg oral capsule (13 sources)Thiazide Diuretic End: 32-31-3073wiqs 1 capsule by mouth once dailyhydroCHLOROthiazide 12.5 MG capsule Take 1 capsule by mouth daily 10/19/2024 Discontinued (LIST CLEANUP) hydroCHLOROthiazide Activelosartan potassium 25 mg oral tablet (7 sources)Angiotensin 2 Receptor Micheal End: 85-54-7644xwue 1 tablet by mouth once dailylosartan (COZAAR) 25 MG tablet Take 1 tablet by mouth daily 10/19/2024 Discontinued (LIST CLEANUP) methylPREDNISolone sodium succ (SOLU-MEDROL) 125 mg in sterile water 2 mL injection (1 source)Start: 01-30-2025 End: 39-24-9691604 mg, IntraVENous, ONCE, On 01/30/25 at 1545, For 1 dose, Reconstitute 125 mg vial with 2 mL diluent.pravastatin sodium 40 mg oral tablet (20 sources)HMG-CoA Reductase InhibitorStart: 10-01-2023 End: 07-84-3970xriq 1 tablet by mouth at bedtimepravastatin (Pravachol) [...] pain; Translations: [RIGHT UPPER QUADRANT PAIN] Onset: 60-57-4484NesjtmsfCqyoeur disorders (20 sources)Mixed anxiety and depressive disorder; Translations: [Other specified anxiety disorders]Onset: 06-05-2023 Resolved: 264579-47-9794DmzopnoOmoubdv obstructive pulmonary disease and bronchiectasis (2 sources)Bronchitis; Translations: [Bronchitis, not specified as acute or chronic]Onset: 783300-24-0178KckhpmrlAqnnojjb mellitus with complications (13 sources)Type 2 diabetes mellitus; Translations: [Type 2 diabetes mellitus with other specified complication]Onset: 721803-36-7633GomicqbSlmemnlk mellitus without complication (20 sources)Type 2 diabetes mellitus without complications; Translations: [Type 2 diabetes mellitus without complication]Onset: 17-15-2475AgrdtcbIpvcfvlgl of lipid metabolism (20 sources)Hyperlipidemia, unspecified; Translations: [Dyslipidemia]Onset: 03-09-2020 Resolved: 201811-41-3100QzanzdvMwcwyhzxm hypertension (20 sources)Essential (primary) hypertension; Translations: [Essential hypertension]Onset: 77-45-8406MaiybthQkseoy and vomiting (6 sources)Nausea and vomiting; Translations: [Nausea with vomiting, unspecified]EpisodicOther aftercare (1 source)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; 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]Onset: 40-99-2292LsxqbdlyIlasp aftercare (1 source)Other care home (current) drug therapy; Translations: [OTH [facility] CURRENT DRUG THERAPY]Onset: 42-93-6881MvmkkxaePpefw and ill-defined heart disease (6 sources)Cardiomegaly; Translations: [Cardiomegaly]Onset: ChronicOther connective tissue disease (1 source)Spasm; Translations: [Other muscle spasm]21-34-7567JdvgzwyvYsoqc ear and sense organ disorders (6 sources)Otitis externa; Translations: [Other otitis externa, bilateral] ChronicOther ear and sense organ disorders (6 sources)Hearing loss; Translations: [Unspecified hearing loss, unspecified ear]Onset: 436219-40-3417GuwvhyuNgkyp gastrointestinal disorders (12 sources)Diarrhea; Translations: [Diarrhea, unspecified]EpisodicOther gastrointestinal disorders (1 source)Other fecal abnormalities; Translations: [Other fecal abnormalities] Onset: 61-39-6693FplirotnLritt lower respiratory disease (2 sources)Cough; Translations: [Acute cough]16-50-6956DbottsmdDbvdb lower respiratory disease (1 source)Wheezing; Translations: [Wheezing]Onset: 71-08-4613XilutbrmSermu lower respiratory disease (1 source)Wheezing; Translations: [Wheezing]46-33-6603JgptxadlRipog nervous system disorders (20 sources)Entrapment of right ulnar nerve; Translations: [Lesion of ulnar nerve, right upper limb]Onset: 876415-37-5762SzwgrydPjoaz nervous system disorders (2 sources)Impaired cognition; Translations: [Other symptoms and signs involving cognitive functions and awareness]06-86-4899EmqjpwwoOapbk nervous system disorders (2 sources)Other symptoms and signs involving cognitive functions and awareness; Translations: [Other symptomsand signs involving cognitive functions and awareness]Onset: 53-49-2330WltrzltbCuaph nutritional; endocrine; and metabolic disorders (20 sources)Morbid obesity; Translations: [Morbid (severe) obesity due to excess calories]Onset: 03-09-2020 Resolved: 578626-53-0071GzbmgrpPrsyl nutritional; endocrine; and metabolic disorders (20 sources)Body mass index 40+ - severely obese; Translations: [Body mass index (BMI) 40.0-44.9, adult]Onset: 438133-86-3940GfmitrdPmmmo nutritional; endocrine; and metabolic disorders (20 sources)Obesity caused by energy imbalance; Translations: [Morbid (severe) obesity due to excess calories]Onset: 552519-40-5822TpevghbHpdwk upper respiratory infections (2 sources)Acute maxillary sinusitis, unspecified; Translations: [Acute maxillary sinusitis]Onset: 245307-40-0605JjneochdCcubqgdb codes; unclassified (20 sources)Sleep apnea; Translations: [Sleep apnea, unspecified]Onset: 868679-49-4979VsfeuspFqwugvtf codes; unclassified (4 sources)Obstructive sleep apnea syndrome; Translations: [Obstructive sleep apnea (adult) (pediatric)]94-98-9343FlxfiqiIjzwqflt codes; unclassified (2 sources)Obstructive sleep apnea (adult) (pediatric); Translations: [Obstructive sleep apnea (adult) (pediatric)]Onset: 35-09-2188Wkxxxoe Spondylosis; intervertebral disc disorders; other back problems (1 source)Other intervertebral disc degeneration, lumbar region; Translations: [Other intervertebral disc degeneration, lumbar region]Onset: 14-42-5428Ggsvajl Unclassified (1 source)Low back pain, unspecified; Translations: [Low back pain, unspecified] Onset: 60-34-1302Ppxypigycsmq (16 sources)Patient on antidepressant monitoring planOnset: Unclassified (16 sources)Baseline PHQ-9Onset: 360419-03-0547Ybxzloqvsssn (1 source)Acute cough; Translations: [Acute cough]Onset: 01-30-2025 Past or Other Problems Problem ClassificationProblemDateDocumented DateEpisodic/ChronicGastrointestinal hemorrhage (6 sources)Rectal hemorrhage; Translations: [Hemorrhage of anus and rectum] Onset: 953331-41-3617HyvpwvriYiszzjvnduoek symptoms and ill-defined conditions (3 sources)DysuriaOnset: 10-10-2021 Resolved: 33-49-8039YsgljitxQmvpndvswtqts and screening for infectious disease (20 sources)Contact with and (suspected) exposure to other viral communicable diseases; Translations: [Methicillin resistant staphylococcus aureus positive] Onset: 02-19-2021 Resolved: 27-84-3275ZlzylpmwEnyessqmpcc chest pain (6 sources)Precordial pain; Translations: [Precordial pain]Onset: 08-06-2019 65-89-4554YryjifhpQnnbf connective tissue disease (20 sources)Pain in right heel; Translations: [Pain in right foot]Onset: 067342-56-4369GsscstpoFhpbl gastrointestinal disorders (20 sources)Stool DNA-based colorectal cancer screening positive; Translations: [Other fecal abnormalities]Onset: 301283-54-8547EmehmpnsWshhv gastrointestinal disorders (20 sources)Constipation; Translations: [Constipation, unspecified]Onset: 887947-51-7775JoufoayaEuewo lower respiratory disease (6 sources)Dyspnea; Translations: [Shortness of breath]Onset: 08-06-2019 97-18-3397YayjtcrpIawss nervous system disorders (1 source)Postoperative pain ; Translations: [Other acute postprocedural pain] 86-78-2114IbblyvdvUcsgr nutritional; endocrine; and metabolic disorders (20 sources)Hyperuricemia; Translations: [Hyperuricemia without signs of inflammatory arthritis and tophaceous disease]Onset: EpisodicOther nutritional; endocrine; and metabolic disorders (2 sources)Hyperuricemia without signs of inflammatory arthritis and tophaceous disease; Translations: [Hyperuricemia without signs of inflammatory arthritis and tophaceous disease]Onset: 82-15-8046ZszwymamXoqgg screening for suspected conditions (not mental disorders or infectious disease) (20 sources)Patient encounter status; Translations: [Encounter for screening for malignant neoplasm of colon]Onset: 655792-74-1156MtevseckNduylvrx codes; unclassified (6 sources)History of chest pain; Translations: [Personal history of other specified conditions]Onset: 747059-29-7564BdynrzpmLzvr and subcutaneous tissue infections (1 source)Cellulitis of right toeOnset: 05-10-2021 Resolved: 44-54-9708WpluqrokSopvegqruzk; intervertebral disc disorders; other back problems (20 sources)Acute back pain with sciatica; Translations: [Lumbago with sciatica, right side]Onset: 926734-81-7047KltgsowkQlknzipsjeej (1 source)Patient encounter -18-2401Gwvrwgz tract infections (3 sources)Urinary tract infection, site not specifiedOnset: 10-10-2021 Resolved: 35-75-0509SflaryzfYsurx infection (2 sources)COVID-19Onset: 02-19-2021 Resolved: 02-19-2021 Results Test NameValueInterpretationReference RangeFacilityBMPon 51-39-7906Sumoe gap [Moles/Vol]9 mmol/L9 - 16 mmol/LBon [facility] [facility] CenterCalcium [Mass/Vol]9.1 mg/dL8.6 - 10.4 mg/dLBon [facility] CenterChloride [Moles/Vol]102 mmol/L98 - 107 mmol/LBon [facility] Medical CenterCO2 [Moles/Vol]29 mmol/L20 - 31 mmol/LBon [facility] CenterCreatinine [Mass/Vol]0.7 mg/dL0.70 - 1.20 mg/dLBon [facility] Medical CenterEst, Glom Filt Rate- PINFBon University Hospitals Elyria Medical CenterComment on above: These results are not intended [...] that affects renal tubular secretion. Glucose [Mass/Vol]112 mg/zHMwfi19 - 99 mg/dLBon [facility] Interpretation and review of laboratory resultsAbnormalJohn Randolph Medical Center Potassium [Moles/Vol]3.7 mmol/L3.7 - 5.3 mmol/LBon [facility] CenterSodium [Moles/Vol]140 mmol/L136 - 145 mmol/LBon [facility] CenterUrea nitrogen [Mass/Vol]12 mg/dL6 - 20 mg/dLBon [facility] Medical CenterUrea nitrogen/Creatinine [Mass ratio]17 mg/mg9 - 20Bon [facility] - AveraBasic Metabolic Profon [id number] gap [Moles/Vol]9 mmol/LNormal9-16Park[facility] Montpelier HospitalComment on above:Performed By: #### ABEBE, SALENA, KEIKOI #### [facility] [address] [place] [address] Aircraft Cleaner: Elvis Griffiths MD #### PSAS, URNMAB, LIPR #### [facility] [employer] [facility] [place] [address] Aircraft Cleaner: Brandon Mancia MDBUN/CRE Vmpfj83Mrvfis0-04Yxgkm [facility] Comment on above:Performed By: #### CDP, CP, URI #### [address] [place] [phone] Aircraft Cleaner: Elvis Griffiths MD #### PSAS, URNMAB, LIPR #### [facility] [employer] [address] [place] [address] Aircraft Cleaner: POLLY Pricealcium [Mass/Vol]9.1 mg/dLNormal8.6-10.4Park[facility] Montpelier HospitalComment on above:Performed By: #### CDP, CP, URI #### [address] [place] [phone] ( Aircraft Cleaner: Elvis Griffiths MD #### PSAS, URNMAB, LIPR #### [address] [address] Aircraft Cleaner: POLLY Pricehloride [Moles/Vol]102 mmol/IOlngar47-054AxvgkParkview Health Montpelier HospitalComment on above:Performed By: #### ABEBE, CP, URI #### [address] [place] [phone] Aircraft Cleaner: Elvis Griffiths MD #### PSAS, URNMAB, LIPR #### [place] [address] [place], [place] [phone] Aircraft Cleaner: Brandon Mancia MDCO2 [Moles/Vol]29 mmol/VFcykyq39-79QrhdkParkview Health Montpelier HospitalComment on above:Performed By: #### CDP, CP, URI #### [address] [place] [phone] Aircraft Cleaner: Elvis Griffiths MD #### PSAS, URNMAB, LIPR #### [place] [address] [place], [place] [phone] Aircraft Cleaner: POLLY Prciereatinine [Mass/Vol]0.7 mg/dLNormal0.70-1.20 [facility] HospitalComuniversity of michigan health on above:Performed By: #### SALENA LOMAS, URI #### [address] [place] [address] Aircraft Cleaner: Elvis Griffiths MD #### PSAWaldo, URNMAB, LIPR #### [place] [address] [place], [place] [phone] Aircraft Cleaner: Brandon Mancia MDGFR/1.73 sq M.predicted among non-blacks MDRD (S/P/Bld) [Vol rate/Area]mL/min/{1.73_m2}Normal>60Park[facility] Montpelier HospitalComment on above:Result Comment: These results are [...] secretion.Performed By: #### SALENA LOMAS, URI #### [address] [place] [address] Aircraft Cleaner: Elvis Griffiths MD #### PSAWaldo, URNMAB, LIPR #### [place] [address] [place], [place] [phone] Aircraft Cleaner: Brandon Mancia MDGlucose [Mass/Vol]112 mg/nYTzam90-39Qymlr[address] on above:Performed By: #### SALENA LOMAS, URI #### [address] [place] [address] Aircraft Cleaner: Elvis Griffiths MD #### PSAS, URNMAB, LIPR #### [place] [address] [place], [place] [phone] Aircraft Cleaner: LOGAN Priceotassium [Moles/Vol]3.7 mmol/LNormal3.7-5.3 [facility] Montpelier HospitalComment on above:Performed By: #### SALENA LOMAS, URI #### [address] [place] [phone] Aircraft Cleaner: Elvis Griffiths MD #### PSAWaldo, URNMAB, LIPR #### [place] [phone] Aircraft Cleaner: ALYSHA Priceodium [Moles/Vol]140 mmol/WMtnetq322-094UeektParkview Health Montpelier HospitalComment on above:Performed By: #### SALENA LOMAS, URI #### [address] [place] [phone] Aircraft Cleaner: Elvis Griffiths MD #### LOUISA MARLEYAB, LIPR #### [place] [phone] Aircraft Cleaner: Brandon Mancia MDUrea nitrogen [Mass/Vol]12 mg/dLNormal6-20[facility] Montpelier HospitalComment on above:Performed By: #### SALENA LOMAS, URI #### [address] [place] [address] Aircraft Cleaner: Elvis Griffiths MD #### DONELL URNMAB, LIPR #### [place] [phone] Aircraft Cleaner: Brandon Mancia [facility] with Auto Differentialon [id number] (Bld) [#/Vol]0.03 10*3/uLBon Secours Promedica Defiance Regional HospitalBasophils/100 WBC (Bld)0 %0 - 2 %[facility] Systemy HealthEosinophils (Bld) [#/Vol]0.19 10*3/uLBon [facility]ours [facility]cy HealthEosinophils/100 WBC (Bld)2 %1 - 4 %[facility] Health Erythrocyte distribution width (RBC) [Ratio]12.7 %11.8 - 14.4 %[facility] Systemy HealthHematocrit (Bld) [Volume fraction]40.5 %Low40.7 - 50.3 %[facility] Systemy HealthHemoglobin (Bld) [Mass/Vol]13.8 g/dL13.0 - 17.0 g/dLBon Secours [facility]iance Regional HospitalImmature granulocytes (Bld) [#/Vol]0.03 10*3/uLBon [facility] Health Immature granulocytes/100 WBC (Bld)0 %0[facility] HealthInterpretation and review of laboratory resultsAbnormalBon Secours [facility] Health Systemy HealthLymphocytes/100 WBC (Bld)27 %24 - 43 %[facility] Systemy HealthLymphocytes/100 WBC (Bld)2.40 %[facility] SecWyandot Memorial HospitalH (RBC) [Entitic mass]29.5 pg25.2 - 33.5 pgBon Secours Paulding County HospitalHC (RBC) [Mass/Vol]34.1 g/dL28.4 - 34.8 g/dLBon SecWyandot Memorial HospitalV (RBC) [Entitic vol]86.5 fL82.6 - 102.9 fLBon [facility] Health Monocytes/100 WBC (Bld)6 %3 - 12 %[facility] HealthMonocytes/100 WBC (Bld)0.49 %[facility] HospitalNeutrophils/100 WBC (Bld)65 %36 - 65 %[facility] HospitalNucleated RBC/100 WBC (Bld) [Ratio]0.0 %0.0 per 100 WBCBon Secours [facility] HealthPlatelet mean volume (Bld) [Entitic vol]9.3 fL8.1 - 13.5 fL [facility] Systemy HealthPlatelets (Bld) [#/Vol]227 10*3/uLBon [facility]ours [facility] Hospit[facility] Health Systemy HealthRBC (Bld) [#/Vol]4.68 10*6/uL4.21 - 5.77 m/uLBon [facility] Segmented neutrophils/100 WBC (Bld)5.84 %Bon [facility] Medical CenterWBC other (Bld) [#/Vol]9.0Bon [facility] CenterBon [facility] Medical CenterCB with Diffon [id number]. Basophil0.03 k/uLNormal0.00-0.20[facility] Montpelier HospitalComment on above:Performed By: #### SALENA LOMAS, URI #### [facility] [address] [place] [address] [place] [place], [place] [phone] Aircraft Cleaner: Elvis Griffiths MD #### JALEN MARLEY, LIPR #### [address] [phone] Aircraft Cleaner: Raymundo Price.Imm.Granulocyte0.03 k/uLNormal0.00-0.30[facility]pelier HospitalComment on above:Performed By: #### SALENA LOMAS, URI #### [address] [place], [place] [phone] Aircraft Cleaner: Elvis Griffiths MD #### JALEN MARLEY, LIPR #### [address] [phone] Aircraft Cleaner: Raymundo Price.Neutrophil (Seg)5.84 k/uLNormal1.50-8.10 [facility]pelier HospitalComment on above:Performed By: #### SALENA LOMAS, URI #### [address] [place] [address] Aircraft Cleaner: Elvis Griffiths MD #### JALEN MARLEY, LIPR #### [address] [phone] Aircraft Cleaner: Brandon Mancia MDBasophils/100 WBC (Bld)0 %Normal0-2MKettering Health SpringfieldComment on above:Performed By: #### CDP, CP, URI #### [address] [place] [phone] Aircraft Cleaner: Elvis Griffiths MD #### PSAS, URNMAB, LIPR #### [address] [address] Aircraft Cleaner: Brandon Mancia MDEosinophils (Bld) [#/Vol]0.19 10*3/uLNormal 0.00-0.44[facility] Montpelier HospitalComment on above:Performed By: #### CDP, CP, URI #### [address] [place] [phone] Aircraft Cleaner: Elvis Griffiths MD #### PSAS, URNMAB, LIPR #### [place] [address] Aircraft Cleaner: Brandon Mancia MDEosinophils/100 WBC (Bld)2 %Normal1-4[facility] Montpelier HospitalComment on above:Performed By: #### SALENA LOMAS, URI #### [address] [place] [phone] Aircraft Cleaner: Elvis Griffiths MD #### PSAS, URNMAB, LIPR #### [place] [address] Aircraft Cleaner: Barndon Mancia MDErythrocyte distribution width (RBC) [Ratio]12.7 %Lhyjku99.8-14.4[facility] Montpelier HospitalComment on above:Performed By: #### ABEBE CP, URI #### [address] [place] [phone] Aircraft Cleaner: Elvis Griffiths MD #### PSAS, URNMAB, LIPR #### [address] [address] Aircraft Cleaner: Brandon Mancia MDHematocrit (Bld) [Volume fraction]40.5 %Low 40.7-50.3MKettering Health SpringfieldComment on above:Performed By: #### SALENA LOMAS, URI #### [address] [place] [phone] Aircraft Cleaner: lEvis Griffiths MD #### JALEN MARLEY, LIPR #### [address] [phone] Aircraft Cleaner: Brandon Mancia MDHemoglobin (Bld) [Mass/Vol]13.8 g/dLNormal 13.0-17.0[facility] Montpelier HospitalComment on above:Performed By: #### SALENA LOMAS, URI #### [address] [place] [phone] Aircraft Cleaner: Elvis Griffiths MD #### JALEN MARLEY, LIPR #### [address] [phone] Aircraft Cleaner: Brandon Mancia MDImmature granulocytes/100 WBC (Bld)0 %Normal0 [facility] on above:Performed By: #### SALENA LOMAS, URI #### [address] [place] [phone] Aircraft Cleaner: Elvis Griffiths MD #### JALEN MARLEY, LIPR #### [address] [phone] Aircraft Cleaner: Brandon Mancia MDLymphocytes (Bld) [#/Vol]2.40 10*3/uLNormal 1.10-3.70[facility] HospitalComuniversity of michigan health on above:Performed By: #### SALENA LOMAS, URI #### [address] [place] [phone] Aircraft Cleaner: Elvis Griffiths MD #### PSAS, URNMAB, LIPR #### [address] [phone] Aircraft Cleaner: Brandon Mancia MDLymphocytes/100 WBC (Bld)27 %Avyioc34-28EcttcParkview Health Montpelier HospitalComment on above:Performed By: #### SALENA LOMAS, URI #### [address] [place] [phone] Aircraft Cleaner: Elvis Griffiths MD #### PSAS, URNMAB, LIPR #### [address] [phone] Aircraft Cleaner: DWAYNE Price (RBC) [Entitic mass]29.5 anPkxwgg40.2-33.5 [facility] HospitalComment on above:Performed By: #### SALENA LOMAS, URI #### [address] [place] [phone] Aircraft Cleaner: Elvis Griffiths MD #### LOUISA MARLEYAB, LIPR #### [place] [address] Aircraft Cleaner: DWAYNE PriceC (RBC) [Mass/Vol]34.1 g/yKUtcwhq15.4-34.8 [facility]ier HospitalComment on above:Performed By: #### SALENA LOMAS, URI #### [address] [place] [phone] Aircraft Cleaner: Elvis Griffiths MD #### PSAWaldo, URNMAB, LIPR #### [place] [address] Aircraft Cleaner: LANDON PriceCV (RBC) [Entitic vol]86.5 bIFywqdc79.6-102.9 [facility] HospitalComment on above:Performed By: #### SALENA LOMAS, URI #### [address] [place], [place] 7171083 Aircraft Cleaner: Elvis Griffiths MD #### PSAS, URNMAB, LIPR #### [address] [address] Aircraft Cleaner: Brandon Mancia MDMonocytes (Bld) [#/Vol]0.49 10*3/uLNormal 0.10-1.20[facility]pelier HospitalComment on above:Performed By: #### CDP, CP, URI #### [address] [place], [place] 2344183 Aircraft Cleaner: Elvis Griffiths MD #### DONELL, URNMAB, LIPR #### [address] [address] Aircraft Cleaner: LANDON Priceonocytes/100 WBC (Bld)6 %Normal3-12[facility] Montpelier HospitalComment on above:Performed By: #### ABEBE, CP, URI #### [address] [place], [place] 4629183 Aircraft Cleaner: Elvis Griffiths MD #### PSAWaldo, URNMAB, LIPR #### [address] [address] Aircraft Cleaner: Brandon Mancia MDNeutrophil (Seg)65 %Bvlwfo16-93FsvbfParkview Health Montpelier HospitalComment on above:Performed By: #### CDP, CP, URI #### [address] [place], [place] 4051483 Aircraft Cleaner: Elvis Griffiths MD #### PSAWaldo, URNMAB, LIPR #### [address] [address] Aircraft Cleaner: Brandon Mancia MDNRBC Automated0.0 per 100 WBCNormal0.0[facility] Montpelier HospitalComment on above:Performed By: #### CDP, CP, URI #### [address] [place] [address] Aircraft Cleaner: Elvis Griffiths MD #### PSAS, URNMAB, LIPR #### [address] [address] Aircraft Cleaner: Adelaida Price mean volume (Bld) [Entitic vol]9.3 fL Normal8.1-13.5[facility] on above:Performed By: #### ABEBE, CP, URI #### [address] [place] [address] Aircraft Cleaner: Elvis Griffiths MD #### PSAS, URNMAB, LIPR #### [address] [address] Aircraft Cleaner: Thalia Price (Bld) [#/Vol]227 10*3/cBUrrich496-275 [facility] on above:Performed By: #### SALENA LOMAS, URI #### [address] [place] [address] Aircraft Cleaner: Elvis Griffiths MD #### PSAS, URNMAB, LIPR #### [address] [address] Aircraft Cleaner: MIN PriceBC (Bld) [#/Vol]4.68 10*6/uLNormal4.21-5.77 [facility] on above:Performed By: #### ABEBE, CP, URI #### [address] [place] [address] Aircraft Cleaner: Elvis Griffiths MD #### PSAS, URNMAB, LIPR #### [address] [address] Aircraft Cleaner: Brandon Mancia MDWBC (Bld) [#/Vol]9.0 10*3/uLNormal3.5-11.3[facility] The Institute Of LivingComment on above:Performed By: #### CDP, CP, URI #### [facility] [address] [place] [address] Aircraft Cleaner: Elvis Griffiths MD #### PSAS, URNMAB, LIPR #### [facility] [address] [place], [place] [phone] Aircraft Cleaner: Derek Price XR Chest AP single viewon . No acute cardiopulmonary process. [facility] CONSOLIDATEDEXAM: 1 VIEW(S) XRAY OF THE CHEST 01/30/2025 03:07:52 PM COMPARISON: None available. CLINICAL HISTORY: cough. FINDINGS: LUNGS AND PLEURA: No focal pulmonary opacity. No pulmonary edema. No pleural effusion. No pneumothorax. HEART AND MEDIASTINUM: No acute abnormality of the cardiac and mediastinal silhouettes. BONES AND SOFT TISSUES: No acute osseous abnormality. [facility] Fito Brian MD - 01/30/2025 EXAM: 1 VIEW(S) XRAY OF THE CHEST 01/30/2025 03:07:52 PM COMPARISON: None available. CLINICAL HISTORY: cough. FINDINGS: LUNGS AND PLEURA: No focal pulmonary opacity. No pulmonary edema. No pleural effusion. No pneumothorax. HEART AND MEDIASTINUM: No acute abnormality of the cardiac and mediastinal silhouettes. BONES AND SOFT TISSUES: No acute osseous abnormality. IMPRESSION: 1. No acute cardiopulmonary process. [facility] CenterRadiology Study observation (narrative)[facility] XR Chest AP single viewOrdered By: Fito Woody on 01-30-2025 [facility] Process Data Control Work Phone: xr CHEST PORTABLEon [id number] CHEST PORTABLEEXAM: 1 VIEW(S) XRAY OF THE [...] Woody MD 01/30/25 Final resultNormalMerLawrence+Memorial HospitalCOVID-19, Rapidon [id number]-CoV-2 (COVID-19) RdRp gene ADELINA+probe Ql (Resp)Not detectedNot [facility] on above: Rapid NAAT: The specimen is [...] Methodology: Isothermal Nucleic Acid Amplification Specimen Description.NASOPHARYNGEAL SWABCarilion Roanoke Community HospitalFlu A/B Ag Detectionon [id number] A Ag DetectionNegativeNormalNEG [facility] on above:Result Comment: for Influenza A Antigen Performed By: #### SALENA LOMAS, URI #### [facility] [address] [place] [address] Aircraft Cleaner: Elvis Griffiths MD #### LOUISA MARLEYAB, LIPR #### [address] [address] Aircraft Cleaner: Brandon Mancia MDFlu B Ag DetectionNegativeNormalNEGMarietta Memorial Hospital on above:Result Comment: for Influenza B Antigen.Performed By: #### SALENA LOMAS, URI #### [address] [place] [address] Aircraft Cleaner: Elvis Griffiths MD #### JALEN MARLEY, LIPR #### [facility] [employer] [facility] [place], [place] [phone] Aircraft Cleaner: Zeenat Price influenza A/B antigenson [id number] Ag Ql (Unsp spec)NegativeNEGATIVEBon [facility] CenterComment on above:for Influenza A AntigenFLUBV Ag Ql (Unsp spec)NegativeNEGATIVEBon [facility] CenterComment on above:for Influenza B Antigen.Bon [facility] OLNV-ZrK-9ll [id number]-CoV-2 (COVID-19) RNA ADELINA+probe Ql (Unsp spec)Not detectedNormalNOTDEUC Healthment on above:Result Comment: Rapid NAAT: The specimen [...] AmplificationPerformed By: #### SALENA LOMAS, URI #### [address] [place] [address] Aircraft Cleaner: Elvis Griffiths MD #### JALEN MARLEY, LIPR #### [facility] [employer] [facility] [place], [place] [phone] Aircraft Cleaner: POLLY Price with Auto Differentialon [id number] (Bld) [#/Vol]0.03 10*3/uLBon Secours [facility] Regional HospitalBasophils/100 WBC (Bld)0 %0 - 2 %Bon SecOhioHealth Shelby HospitalEosinophils (Bld) [#/Vol]0.13 10*3/uLBon Secours [facility] Regional HospitalEosinophils/100 WBC (Bld)1 %1 - 4 %[facility] Erythrocyte distribution width (RBC) [Ratio]12.7 %11.8 - 14.4 %[facility] Medical CenterHematocrit (Bld) [Volume fraction]45.5 %40.7 - 50.3 %[facility] Medical CenterHemoglobin (Bld) [Mass/Vol]15.2 g/dL13.0 - 17.0 g/dLBon Secours Promedica Defiance Regional HospitalImmature granulocytes (Bld) [#/Vol]0.06 10*3/uLBon [facility] Immature granulocytes/100 WBC (Bld)1 %Zfmx1Udl [facility] Interpretation and review of laboratory resultsAbnormalBon [facility] Lymphocytes/100 WBC (Bld)17 %Low24 - 43 %[facility] Medical CenterLymphocytes/100 WBC (Bld)2.17 %[facility] HealthH (RBC) [Entitic mass]29.0 pg25.2 - 33.5 pgBon [facility] – So[facility] Medical CenterHC (RBC) [Mass/Vol]33.4 g/dL28.4 - 34.8 g/dLBon SecWyandot Memorial HospitalV (RBC) [Entitic vol]86.8 fL82.6 - 102.9 fLBon [facility] Medical CenterMonocytes/100 WBC (Bld)7 %3 - 12 %[facility] Monocytes/100 WBC (Bld)0.94 %[facility] Medical CenterNeutrophils/100 WBC (Bld)74 %High36 - 65 %Bon [facility] CenterNucleated RBC/100 WBC (Bld) [Ratio]0.0 % 0.0 per 100 WBCBon [facility] Medical CenterPlatelet mean volume (Bld) [Entitic vol] 10.3 fL8.1 - 13.5 fLBon [facility] Medical CenterPlatelets (Bld) [#/Vol]232 10*3/uL Bon [facility] Medical CenterRBC (Bld) [#/Vol]5.24 10*6/uL4.21 - 5.77 m/uLJohn Randolph Medical CenterSegmented neutrophils/100 WBC (Bld)9.38 %HighJohn Randolph Medical CenterWBC other (Bld) [#/Vol]12.7HighCarilion Clinic with Diffon [id number]. Basophil0.03 k/uLNormal0.00-0.20[facility]pelier HospitalComment on above:Performed By: #### B12, VD25, FT3, FT4 #### [place] [address] Aircraft Cleaner: Brandon Mancia MD #### CDP, TSH, CP #### [address] [place] [address] Aircraft Cleaner: Raymundo Resendiz.Imm.Granulocyte0.06 k/uLNormal0.00-0.30[facility] Montpelier HospitalComment on above:Performed By: #### B12, VD25, FT3, FT4 #### [place] [address] Aircraft Cleaner: Brandon Mancia MD #### CDP, TSH, CP #### [address] [place] [phone] Aircraft Cleaner: Raymundo Resendiz.Neutrophil (Seg)9.38 k/uLHigh1.50-8.10[facility]ier HospitalComment on above:Performed By: #### B12, VD25, FT3, FT4 #### [place] [address] Aircraft Cleaner: Brandon Mancia MD #### CDP, TSH, CP #### [address] [place] [phone] Aircraft Cleaner: Elvis Griffiths MDBasophils/100 WBC (Bld)0 %Normal0-2MKettering Health SpringfieldComment on above:Performed By: #### B12, VD25, FT3, FT4 #### [address] [address] Aircraft Cleaner: Brandon Mancia MD #### CDP, TSH, CP #### [address] [place] [phone] Aircraft Cleaner: Elvis Griffiths MDEosinophils (Bld) [#/Vol]0.13 10*3/uLNormal 0.00-0.44[facility] Montpelier HospitalComment on above:Performed By: #### B12, VD25, FT3, FT4 #### [place] [address] Aircraft Cleaner: Brandon Mancia MD #### CDP, TSH, CP #### [address] [place] [phone] Aircraft Cleaner: Elvis Griffiths MDEosinophils/100 WBC (Bld)1 %Normal1-4[facility]pelier HospitalComment on above:Performed By: #### B12, VD25, FT3, FT4 #### [address] [address] Aircraft Cleaner: Brandon Mancia MD #### CDP, TSH, CP #### [address] [place] [phone] Aircraft Cleaner: Elvis Griffiths MDErythrocyte distribution width (RBC) [Ratio]12.7 % Spqnru75.8-14.4[facility] HospitalComuniversity of michigan health on above:Performed By: #### B12, VD25, FT3, FT4 #### [address] [address] Aircraft Cleaner: Brandon Macnia MD #### CDP, TSH, CP #### [address] [place] [address] Aircraft Cleaner: Elvis Griffiths MDHematocrit (Bld) [Volume fraction]45.5 %Normal 40.7-50.3MercYale New Haven Children's HospitalComment on above:Performed By: #### B12, VD25, FT3, FT4 #### [address] [address] Aircraft Cleaner: Brandon Mancia MD #### CDP, TSH, CP #### [address] [place] [address] Aircraft Cleaner: Elvis Griffiths MDHemoglobin (Bld) [Mass/Vol]15.2 g/dLNormal 13.0-17.0[facility]pelier HospitalComment on above:Performed By: #### B12, VD25, FT3, FT4 #### [address] [address] Aircraft Cleaner: Brandon Mancia MD #### CDP, TSH, CP #### [address] [place] [address] Aircraft Cleaner: Elvis Griffiths MDImmature granulocytes/100 WBC (Bld)1 %Vatk1LfzklParkview Health Montpelier HospitalComment on above:Performed By: #### B12, VD25, FT3, FT4 #### [address] [address] Aircraft Cleaner: Brandon Mancia MD #### CDP, TSH, CP #### [address] [place] [address] Aircraft Cleaner: Elvis Griffiths MDLymphocytes (Bld) [#/Vol]2.17 10*3/uLNormal 1.10-3.70[facility]pelier HospitalComment on above:Performed By: #### B12, VD25, FT3, FT4 #### [address] [address] Aircraft Cleaner: Brandon Mancia MD #### CDP, TSH, CP #### [address] [place], [place] 1622983 Aircraft Cleaner: Elvis Griffiths MDLymphocytes/100 WBC (Bld)17 %Nra91-74NoxavParkview Health Montpelier HospitalComment on above:Performed By: #### B12, VD25, FT3, FT4 #### [address] [address] Aircraft Cleaner: Brandon Mancia MD #### CDP, TSH, CP #### [address] [place] [phone] Aircraft Cleaner: DWAYNE Resendiz (RBC) [Entitic mass]29.0 bwQadpzw22.2-33.5 [facility] HospitalComment on above:Performed By: #### B12, VD25, FT3, FT4 #### [address] [address] Aircraft Cleaner: Brandon Mancia MD #### CDP, TSH, CP #### [address] [place], [place] [phone] Aircraft Cleaner: DWAYNE ResendizC (RBC) [Mass/Vol]33.4 g/iVDeetyj24.4-34.8[facility] on above:Performed By: #### B12, VD25, FT3, FT4 #### [address] [address] Aircraft Cleaner: Brandon Mancia MD #### CDP, TSH, CP #### [address] [place], [place] 1039683 Aircraft Cleaner: LANDON ResendizCV (RBC) [Entitic vol]86.8 fEOsubhg32.6-102.9 [facility] HospitalComment on above:Performed By: #### B12, VD25, FT3, FT4 #### [address] [address] Aircraft Cleaner: Brandon Mancia MD #### CDP, TSH, CP #### [address] [place], [place] [phone] Aircraft Cleaner: Elvis Griffiths MDMonocytes (Bld) [#/Vol]0.94 10*3/uLNormal0.10-1.20 [facility]pelier HospitalComment on above:Performed By: #### B12, VD25, FT3, FT4 #### [address] [address] Aircraft Cleaner: Brandon Mancia MD #### CDP, TSH, CP #### [address] [place] [phone] Aircraft Cleaner: Elvis Griffiths MDMonocytes/100 WBC (Bld)7 %Normal3-12[facility]pelier HospitalComment on above:Performed By: #### B12, VD25, FT3, FT4 #### [address] [address] Aircraft Cleaner: Brandon Mancia MD #### CDP, TSH, CP #### [address] [place] [id number] Aircraft Cleaner: Elvis Griffiths MDNeutrophil (Seg)74 %Aduw25-19CclcjParkview Health Montpelier Hospital Comment on above:Performed By: #### B12, VD25, FT3, FT4 #### [address] [address] Aircraft Cleaner: Brandon Mancia MD #### CDP, TSH, CP #### [address] [place] [id number] Aircraft Cleaner: Elvis Griffiths MDNRBC Automated0.0 per 100 WBCNormal0.0[facility] HospitalComuniversity of mich[facility] health on above:Performed By: #### B12, VD25, FT3, FT4 #### [address] [address] Aircraft Cleaner: Brandon Mancia MD #### CDP, TSH, CP #### [address] [place] [address] Aircraft Cleaner: Adelaida Resendiz mean volume (Bld) [Entitic vol]10.3 fL Normal8.1-13.5[facility] HospitalComuniversity of michigan health on above:Performed By: #### B12, VD25, FT3, FT4 #### [address] [address] Aircraft Cleaner: Brandon Mancia MD #### CDP, TSH, CP #### [address] [place] [address] Aircraft Cleaner: Thalia Resendiz (Bld) [#/Vol]232 10*3/yAOpreik314-613 [facility] on above:Performed By: #### B12, VD25, FT3, FT4 #### [address] [address] Aircraft Cleaner: Brandon Mancia MD #### CDP, TSH, CP #### [address] [place] [id number] Aircraft Cleaner: NORBERTO Resendiz (Bld) [#/Vol]5.24 10*6/uLNormal4.21-5.77[facility] HospitalComuniversity of [facility] health on above:Performed By: #### B12, VD25, FT3, FT4 #### [address] [address] Aircraft Cleaner: Brandon Mancia MD #### CDP, TSH, CP #### [address] [place], [place] 0357383 Aircraft Cleaner: Elvis Griffiths [facility]DLONG [facility] (d) [#/Vol]12.7 10*3/uLHigh3.5-11.3MKettering Health SpringfieldComment on above:Performed By: #### B12, VD25, FT3, FT4 #### [address] [address] Aircraft Cleaner: Brandon Mancia MD #### CDP, TSH, CP #### [address] [place], [place] 4049083 Aircraft Cleaner: POLLY Resendizpark city hospital Metabolic Profon 60-77-4373Jrokgkr [Mass/Vol] 4.0 g/dLNormal3.5-5.2MKettering Health SpringfieldComment on above:Performed By: #### B12, VD25, FT3, FT4 #### [facility] [employer] [address] [place] [address] Aircraft Cleaner: Brandon Mancia MD #### CDP, TSH, CP #### [address] [place], [place] 6696983 Aircraft Cleaner: Elvis Griffiths MDAlbumin/Glob Ratio1.8Rdfcgj7.0-2.5Park[facility] Montpelier HospitalComment on above:Performed By: #### B12, VD25, FT3, FT4 #### [facility] [employer] [address] [place] [address] Aircraft Cleaner: Brandon Mnacia MD #### CDP, TSH, CP #### [address] [place] [address] Aircraft Cleaner: Julius Resendizkaline Jwsu735 U/OMlqfzu51-147DckukParkview Health Montpelier HospitalComment on above:Performed By: #### B12, VD25, FT3, FT4 #### [address] [address] Aircraft Cleaner: Brandon Mancia MD #### CDP, TSH, CP #### [address] [place] [address] Aircraft Cleaner: Elvis Griffiths MDALT [Catalytic activity/Vol]18 U/BRafmeh89-28JcisrParkview Health Montpelier HospitalComment on above:Performed By: #### B12, VD25, FT3, FT4 #### [address] [address] Aircraft Cleaner: Brandon Mancia MD #### CDP, TSH, CP #### [address] [place] [id number] Aircraft Cleaner: Elvis Griffiths MDAnion gap [Moles/Vol]11 mmol/LNormal9-16[facility] Montpelier HospitalComment on above:Performed By: #### B12, VD25, FT3, FT4 #### [address] [address] Aircraft Cleaner: Brandon Mancia MD #### CDP, TSH, CP #### [address] [place] [address] Aircraft Cleaner: Elvis Griffiths MDAST [Catalytic activity/Vol]18 U/KOjuezu05-77HxnrkParkview Health Montpelier HospitalComment on above:Performed By: #### B12, VD25, FT3, FT4 #### [address] [address] Aircraft Cleaner: Brandon Mancia MD #### CDP, TSH, CP #### [address] [place] [address] Aircraft Cleaner: Elvis Griffiths MDBilirubin [Mass/Vol]0.5 mg/dLNormal0.00-1.20[facility] Mont[facility]ier HospitalComment on above:Performed By: #### B12, VD25, FT3, FT4 #### [address] [address] Aircraft Cleaner: Brandon Mancia MD #### CDP, TSH, CP #### [address] [place], [place] 4642283 Aircraft Cleaner: Elvis Griffiths MDBUN/CRE Gukdn38Eretca9-83[facility] Comment on above:Performed By: #### B12, VD25, FT3, FT4 #### [address] [address] Aircraft Cleaner: Brandon Mancia MD #### CDP, TSH, CP #### [address] [place], [place] 6635283 Aircraft Cleaner: POLLY Resendizalcium [Mass/Vol]8.8 mg/dLNormal8.6-10.4Park[facility] Montpelier HospitalComment on above:Performed By: #### B12, VD25, FT3, FT4 #### [address] [address] Aircraft Cleaner: Brandon Mancia MD #### CDP, TSH, CP #### [address] [place], [place] 3321783 Aircraft Cleaner: POLLY Resendizhloride [Moles/Vol]101 mmol/BTceipz30-604EjfwhParkview Health Montpelier HospitalComment on above:Performed By: #### B12, VD25, FT3, FT4 #### [address] [address] Aircraft Cleaner: Brandon Mancia MD #### CDP, TSH, CP #### [address] [place], [place] 3955583 Aircraft Cleaner: Elvis Griffiths MDCO2 [Moles/Vol]27 mmol/VEjnfbj09-91JarnuParkview Health Montpelier HospitalComment on above:Performed By: #### B12, VD25, FT3, FT4 #### [place] [address] [place] [address] Aircraft Cleaner: Brandon Mancia MD #### CDP, TSH, CP #### [address] [place] [address] Aircraft Cleaner: POLLY Resendizreatinine [Mass/Vol]0.8 mg/dLNormal0.70-1.20[facility] HospitalComment on above:Performed By: #### B12, VD25, FT3, FT4 #### [place] [address] [place] [address] Aircraft Cleaner: Brandon Mancia MD #### CDP, TSH, CP #### [address] [place] [address] Aircraft Cleaner: Elvis Griffiths MDGFR/1.73 sq M.predicted among non-blacks MDRD (S/P/Bld) [Vol rate/Area]mL/min/{1.73_m2}Normal>60Park[facility] Montpelier HospitalComment on above:Result Comment: These results are [...] By: #### B12, VD25, FT3, FT4 #### [place] [address] [place], [place] 9842608 Aircraft Cleaner: Brandon Mancia MD #### CDP, TSH, CP #### [address] [place] [address] Aircraft Cleaner: Elvis Griffiths MDGlucose [Mass/Vol]155 mg/aSUtmj41-30Ywbem Fleming HospitalComment on above:Performed By: #### B12, VD25, FT3, FT4 #### [address] [address] Aircraft Cleaner: Brandon Mancia MD #### CDP, TSH, CP #### [address] [place] [phone] Aircraft Cleaner: LOGAN Resendizotassium [Moles/Vol]3.5 mmol/LLow3.7-5.3[facility] Institute Of LivingComment on above:Performed By: #### B12, VD25, FT3, FT4 #### [address] [address] Aircraft Cleaner: Brandon Mancia MD #### CDP, TSH, CP #### [address] [place] 4408283 Aircraft Cleaner: LOGAN Resendizrotein [Mass/Vol]6.7 g/dLNormal6.6-8.7Park[facility] Mont[facility]ier HospitalComment on above:Performed By: #### B12, VD25, FT3, FT4 #### [address] [address] Aircraft Cleaner: Brandon Mancia MD #### CDP, TSH, CP #### [address] [place] 4408283 Aircraft Cleaner: ALYSHA Resendizodium [Moles/Vol]139 mmol/KIlvzsb487-937GmdbdParkview Health Montpelier HospitalComment on above:Performed By: #### B12, VD25, FT3, FT4 #### [address] [address] Aircraft Cleaner: Brandon Mancia MD #### CDP, TSH, CP #### [address] [place], [place] 6984683 Aircraft Cleaner: Elvis Griffiths MDUrea nitrogen [Mass/Vol]11 mg/dLNormal6-20[facility] HospitalComment on above:Performed By: #### B12, VD25, FT3, FT4 #### [facility] [employer] [address] [place] [address] Aircraft Cleaner: Brandon Mancia MD #### CDP, TSH, CP #### [facility] [address] [place] [address] Aircraft Cleaner: Elvis Griffiths [facility] – ELK CITYomprehensive Metabolic Panelon 95-46-4463Demjywd [Mass/Vol]4.0 g/dL3.5 - 5.2 g/dLBon [facility] CenterAlbumin/Globulin [Mass ratio]1.5 {ratio}1.0 - 2.5Bon SecCypress Pointe Surgical Hospital HealthALP [Catalytic activity/Vol] 102 U/L40 - 129 U/LBon SecCypress Pointe Surgical Hospital HealthALT [Catalytic activity/Vol]18 U/L10 - 50 U/LBon SecOhioHealth Shelby HospitalAnion gap [Moles/Vol]11 mmol/L9 - 16 mmol/LBon SecCypress Pointe Surgical Hospital HealthAST [Catalytic activity/Vol]18 U/L10 - 50 U/LBon [facility] HealthBilirubin [Mass/Vol]0.5 mg/dL0.00 - 1.20 mg/dLBon [facility] Medical CenterCalcium [Mass/Vol]8.8 mg/dL8.6 - 10.4 mg/dLBon [facility] Chloride [Moles/Vol]101 mmol/L98 - 107 mmol/LBon [facility] Centerours [facility] Regional HospitalCO2 [Moles/Vol]27 mmol/L20 - 31 mmol/LBon [facility] CenterCreatinine [Mass/Vol] 0.8 mg/dL0.70 - 1.20 mg/dLBon [facility] HealthEst, Glom Filt Rate- PINFBon [facility] Medical CenterComment on above: These results are not intended [...] that affects renal tubular secretion. Glucose [Mass/Vol]155 mg/sEXidj84 - 99 mg/dLBon [facility] Interpretation and review of laboratory resultsAbnormalJohn Randolph Medical Center Potassium [Moles/Vol]3.5 mmol/LLow3.7 - 5.3 mmol/LBon [facility] Protein [Mass/Vol]6.7 g/dL6.6 - 8.7 g/dLBon [facility] Medical CenterSodium [Moles/Vol]139 mmol/L136 - 145 mmol/LBon [facility] Medical CenterUrea nitrogen [Mass/Vol]11 mg/dL6 - 20 mg/dLBon [facility] Medical CenterUrea nitrogen/Creatinine [Mass ratio]14 mg/mg9 - 20Bon [facility] CenterNo Panel Informationon 03-51-0497Cph [facility] AveraT3, Free 01-20-2025 Free T3 [Mass/Vol]3.08 pg/mL2.00 - 4.40 pg/mLJohn Randolph Medical CenterFree T3 [Mass/Vol]3.08 pg/mLNormal2.00-4.40Park[facility] Montpelier HospitalComment on above: Performed By: #### ABEBE, CP, URI #### [facility] [address] [place] [address] Aircraft Cleaner: Elvis Griffiths MD #### PSAS, URNMAB, LIPR #### [facility] [address] [place] [address] Aircraft Cleaner: Brandon Mancia MDT4, [facility] 18-92-4921Xrwd T4 [Mass/Vol]1.2 ng/dL 0.92 - 1.68 ng/dLBon [facility] Medical CenterTSHon 80-91-1083VNB Qn1.01 m[IU]/LBon [facility] Medical CenterThyroid Stim. Horm.on 16-91-2027Zyseoyo Stim. Horm.1.01 uIU/mLNormal0.27-4.20[facility]ier HospitalComment on above:Performed By: #### SALENA LOMAS, URI #### [address] [place], [place] 5057383 Aircraft Cleaner: Elvis Griffiths MD #### JALEN MARLEY, LIPR #### [place] [address] [place] [address] Aircraft Cleaner: Brandon Mancia MDThyroxine, Freeon 88-03-5040Hgbizmcam, Free1.2 ng/dLNormal0.92-1.68[facility] HospitalComuniversity of michigan health on above:Performed By: #### SALENA LOMAS, URI #### [address] [place] [address] Aircraft Cleaner: Elvis Griffiths MD #### JALEN MARLEY, LIPR #### [address] [address] Aircraft Cleaner: Brandon Mancia MDVitamin B12on 53-55-0703Gemngjfij (Vitamin B12) [Mass/Vol]367 pg/mL232 - 1245 pg/mLJohn Randolph Medical CenterCobalamin (Vitamin B12) [Mass/Vol]367 pg/cMMwmoqo021-2693Opluf Tiffin HospitalComuniversity of [facility] health on above: Performed By: #### SALENA LOMAS, URI #### [address] [place], [place] 0728383 Aircraft Cleaner: Elvis Griffiths MD #### JALEN MARLEY, LIPR #### [place] [address] [place] [address] Aircraft Cleaner: Brandon Mancia MDVitamin D 25 Hydroxyon - hydroxyvitamin D3 [Mass/Vol]11.6 ng/mLLow30.0 - 100.0 ng/mLJohn Randolph Medical CenterComuniversity of mich[facility] health on above: Reference Range: Vitamin D status Range Deficiency <20 ng/mL Mild Deficiency 20-30 ng/mL Sufficiency 30-100 ng/mL Toxicity >100 ng/mL Interpretation and review of laboratory resultsAbnoDominion Hospital Vitamin D 25 OHon 84-52-0316Mztsgcm D 25 OH11.6 ng/mLLow30.0-100.0Park[facility] Montpelier HospitalComment on above:Result Comment: Reference Range: Vitamin D status Range Deficiency <20 ng/mL Mild Deficiency 20-30 ng/mL Sufficiency 30-100 ng/mL Toxicity >100 ng/mLPerformed By: #### SALENA LOMAS, URI #### [address] [place], [place] 8434783 Aircraft Cleaner: Elvis Griffiths MD #### KEIKO MARLEYNMAB, LIPR #### [address] [address] Aircraft Cleaner: Patsy Price [id number] [Catalytic activity/Vol]18 U/L10 - 50 U/LBon [facility] Medical CenterALT [Catalytic activity/Vol]18 U/LNormal 10-50Park[facility] Montpelier HospitalComment on above:Performed By: #### SALENA LOMAS, URI #### [address] [place], [place] 2231283 Aircraft Cleaner: Elvis Griffiths MD #### DONELL, KEIKONMAB, LIPR #### [address] [address] Aircraft Cleaner: Ranjith Price [id number] [Catalytic activity/Vol]20 U/L10 - 50 U/LBon [facility] Medical CenterAST [Catalytic activity/Vol]20 U/LNormal 10-50[facility] Mont[facility] HospitalComment on above:Performed By: #### SALENA LOMAS, URI #### [address] [place] [address] Aircraft Cleaner: Elvis Griffiths MD #### DONELL, KEIKONMAB, LIPR #### [address] [address] Aircraft Cleaner: Brandon Mancia [facility] Anneliese 12-05-5524WYI [Catalytic activity/Vol] 18 U/L10 - 50 U/LNOMS HealthcareCCF Jose Juan 13-28-1761ESO [Catalytic activity/Vol] 20 U/L10 - 50 U/LNOMS [facility]ica Memorial HospitalLipid Panelon 93-76-5241Cyivpuuxclf [Mass/Vol] 103 mg/dL0 - 199 mg/dLBon [facility] Medical CenterMorris Freight and Transport Brokerage Corey HospitalComment on above: Cholesterol Guidelines: <200 Desirable 200-240 Borderline >240 Undesirable Cholesterol in HDL [Mass/Vol]28 mg/dLLow40 - PINF mg/dLBon [facility] HospitalBranded Online Comment on above: HDL Guidelines: <40 Undesirable 40-59 Borderline >59 Desirable Cholesterol in LDL [Mass/Vol]57 mg/dL0 - 100 mg/dLBon [facility] [employer] Comment on above: LDL Guidelines: <100 Desirable 100-129 Near to/above Desirable 130-159 Borderline >159 Undesirable Direct (measured) LDL and calculated LDL are not interchangeable tests. Cholesterol in VLDL [Mass/Vol]18 mg/dL1 - 30 mg/dLBon [facility] [employer] Cholesterol.total/Cholesterol in HDL [Mass ratio]3.7 {ratio}NINF - 5.0Bon [facility] Process Data ControlInterpretation and review of laboratory resultsAbnormalBon [facility] HospitalBranded OnlineTriglyceride [Mass/Vol]89 mg/dLNINF - 150 mg/dLBon [facility] Medical CenterComment on above: Triglyceride Guidelines: <150 Desirable 150-199 Borderline 200-499 High >499 Very high Based on AHA Guidelines for fasting triglyceride, December 2011. [facility] Retora BlackInova Loudoun HospitalLipid Profileon 03-94-2056Ixjwsfcwbpa [Mass/Vol]103 mg/dLNormal0-199Park[facility] Health Montpelier HospitalComment on above:Result Comment: Cholesterol Guidelines: <200 Desirable 200-240 Borderline >240 UndesirablePerformed By: #### CDP, CP, URI #### [facility] [address] [place] [address] Aircraft Cleaner: Elvis Griffiths MD #### PSAS, URNMAB, LIPR #### [facility] [address] [place] [address] Aircraft Cleaner: Brandon Mancia MDCholesterol in HDL [Mass/Vol]28 mg/dLLow>40Park[facility] Montpelier HospitalComment on above:Result Comment: HDL Guidelines: <40 Undesirable 40-59 Borderline >59 DesirablePerformed By: #### SALENA LOMAS, URI #### [address] [place], [place] 3918083 Aircraft Cleaner: Elvis Griffiths MD #### LOUISA MARLEYAB, LIPR #### [facility] [place], [place] 6729108 Aircraft Cleaner: Brandon Mancia MDCholesterol in LDL [Mass/Vol]57 mg/dLNormal0-100 [facility] HospitalComuniversity of michigan health on above:Result Comment: LDL Guidelines: <100 Desirable 100-129 Near to/above Desirable 130-159 Borderline >159 Undesirable Direct (measured) LDL and calculated LDL are not interchangeable tests.Performed By: #### SALENA LOMAS, URI #### [address] [place], [place] 0773883 Aircraft Cleaner: Elvis Griffiths MD #### LOUISA MARLEYAB, LIPR #### [facility] [address] [place] [address] Aircraft Cleaner: Brandon Mancia MDCholesterol in VLDL [Mass/Vol]18 mg/dLNormal1-30 [facility] on above:Performed By: #### SALENA LOMAS, URI #### [address] [place], [place] 9682783 Aircraft Cleaner: Elvis Griffiths MD #### LOUISA MARLEYAB, LIPR #### [facility] [employer] [address] [place] [id number] Aircraft Cleaner: Stephanie Pricestreji.total/Cholesterol in HDL [Mass ratio]3.7 {ratio}Normal<5.0[facility] on above:Performed By: #### SALENA LOMAS, URI #### [address] [place], [place] 7877483 Aircraft Cleaner: Elvis Griffiths MD #### DONELL, KEIKONMAB, LIPR #### [facility] [employer] [address] [place], [place] 3418508 Aircraft Cleaner: Brandon Mancia MDTriglyceride [Mass/Vol]89 mg/dLNormal<150Parkview Health Montpelier HospitalComment on above:Result Comment: Triglyceride Guidelines: <150 Desirable 150-199 Borderline 200-499 High >499 Very high Based on AHA Guidelines for fasting triglyceride, December 2011.Performed By: #### SALENA LOMAS, URI #### [address] [place], [place] 8089183 Aircraft Cleaner: Elvis Griffiths MD #### JALEN MARLEY, LIPR #### [facility] [address] [place], [place] 1630608 Aircraft Cleaner: Brandon Mancia MDNo Panel Informationon 06-22-8115Ebuitmmt Ordering Provider: JENN NOVABaylor Scott & White Medical Center – PlanoGlucose,Whole Bloodon 64-06-0379Fjcxmox [Mass/Vol]122 mg/kNZvmh41-46Ngjiu [facility] Rehabilitation HospitalMHPT GLUCOSE,WHOLE BLOODon 30-72-4888Gdpvwan [Mass/Vol]122 mg/dL High65 - 99 mg/dLMOUNTAINSTAR HEALTHCARE HealthcareInterpretation and review of laboratory results AbnormalNOKY HealthcareOriginal Ordering Provider: MORGAN COLEMANJON MICHAEL [facility]ORE [facility] HealthcareSurgical Pathology Reporton [id number] Pathology Report (NOTE) Path Number: [id number] -- Diagnosis -- A. Distal sigmoid colon, [...] Description A-C. Microscopic examination performed. Processing Lab: [place] [id number] Interpretation Performed at [address] [address] SURGICAL PATHOLOGY CONSULTATION Patient Name: HAIR BRENNER [facility] Rec: [id number] [facility] ANATOMIC PATHOLOGY [address] [place] [address]. [place], [place] [id number] [place] [address] LeadOrdered By: Mikayla Chavez on 33-76-2884Amhygb Tzkp43KWBGra [employer] Phone: P Zpaw53nuguyjsDbaRumble Phone: P-R [id number] [employer] Phone: Q-T [id number] [employer] Phone: QRS [id number] [employer] Phone: QTc Calculation ([place])444 [employer] Phone: R Ubdr83lqfsqepTudJohnston Memorial Hospital [employer] Work Phone: T Nnny26lfuguhlTqjJohnston Memorial Hospital [employer] Work Phone: Ventricular Iddg36NHRGtc [facility] HospitalBranded Online Work Phone: Bon [facility] [employer] Work Phone: EKG 12 Leadon 70-04-6877Ftickq sinus rhythm Normal ECG No previous ECGs available Confirmed by Mikayla Chavez ([id number]) on 10/05/2024 1:08:40 [facility]HER[facility] Mikayla Chavez MD - 10/05/2024 Normal sinus rhythm Normal ECG No previous ECGs available Confirmed by Mikayla Chavez ([id number]) on 10/05/2024 1:08:40 PM [facility] Medical CenterHbA1c (Bld) [Mass fraction]on 76-30-1610Uxrchtlzvlwavz and review of laboratory resultsAbnoMUSC Health Fairfield Emergency HealthcareLaboratory - Hematology and Cell countson 92-55-6908RcD9x (Bld) [Mass fraction]5.9 %NOMS HealthcareAlbumin/Creat Ratio, Urineon 04-28-2938Sbwguis,conc.[place] U<12Normal 0-20[facility] Institute Of LivingComment on above:Performed By: #### CDP, CP, URI #### [facility] [address] [place] [address] [place] [address] Aircraft Cleaner: Elvis Griffiths MD #### PSAS, URNMAB, LIPR #### [facility] [address] [place] [address] Aircraft Cleaner: Brandon Mancia MDAlbumin/Creat RatioCan not be calculatedNormal 0.0-17.0MerLawrence+Memorial HospitalComment on above:Performed By: #### CDP, CP, URI #### [facility] [address] [place] [address] [place] [address] Aircraft Cleaner: Elvis Griffiths MD #### PSAS, URNMAB, LIPR #### [facility] [address] [place], [place] 5018108 Aircraft Cleaner: Brandon Mancia MDCreatinine Conc.210.0 mg/rHVpuyzf78.0-259.0Park[facility] HospitalComuniversity of michigan health on above:Result Comment: Reference range defined for 1st morning urinePerformed By: #### CDP, CP, URI #### [facility] [address] [place] [address] [place] [address] Aircraft Cleaner: Elvis Griffiths MD #### PSAS, URNMAB, LIPR #### [facility] [employer] [address] [place], [place] 4417708 Aircraft Cleaner: Brandon Mancia MDAlbumin/Creatinine Ratio, Urineon 09-01-2024 Albumin DL <= 20 mg/L (U) [Mass/Vol]mg/L0 - 20 mg/LBon [facility] Albumin/Creatinine DL <= 20 mg/L (U) [Ratio]Can not be calculatedBon [facility] Medical CenterCreatinine (U) [Mass/Vol]210 mg/dL39.0 - 259.0 mg/dLBon [facility] Medical CenterComment on above:Reference range defined for 1st morning urineBon [facility] Medical CenterCBC with Auto Differentialon 71-21-9314Xnjqwdmvs (Bld) [#/Vol]0.04 10*3/uLBon [facility] Medical CenterBasophils/100 WBC (Bld)1 %0 - 2 %[facility] CenterEosinophils (Bld) [#/Vol]0.14 10*3/uLBon [facility] Medical CenterEosinophils/100 WBC (Bld)2 %1 - 4 %[facility] Medical CenterErythrocyte distribution width (RBC) [Ratio]13.1 %11.8 - 14.4 %[facility] Hematocrit (Bld) [Volume fraction]43.6 %40.7 - 50.3 %[facility] Hemoglobin (Bld) [Mass/Vol]14.8 g/dL13.0 - 17.0 g/dLBon SecOhioHealth Shelby Hospital Immature granulocytes (Bld) [#/Vol][facility] HospitalImmature granulocytes/100 WBC (Bld)0 %0[facility] HospitalLymphocytes/100 WBC (Bld) 26 %24 - 43 %[facility] HospitalLymphocytes/100 WBC (Bld)2.14 %Bon [facility] Medical CenterH (RBC) [Entitic mass]28.9 pg25.2 - 33.5 pgBon SecWyandot Memorial HospitalHC (RBC) [Mass/Vol]33.9 g/dL28.4 - 34.8 g/dLBon SecWyandot Memorial HospitalV (RBC) [Entitic vol]85.2 fL82.6 - 102.9 fLBon SecOhioHealth Shelby HospitalMonocytes/100 WBC (Bld)7 %3 - 12 %Bon SecOhioHealth Shelby HospitalMonocytes/100 WBC (Bld)0.6 %Bon [facility] CenterNeutrophils/100 WBC (Bld)64 %36 - 65 %Bon [facility] Medical CenterNucleated RBC/100 WBC (Bld) [Ratio]0 %0.0 per 100 WBCBon SecOhioHealth Shelby HospitalPlatelet mean volume (Bld) [Entitic vol]10 fL8.1 - 13.5 fLBon SecCypress Pointe Surgical Hospital HealthPlatelets (Bld) [#/Vol]212 10*3/uLBon SecOhioHealth Shelby HospitalRBC (Bld) [#/Vol]5.12 10*6/uL4.21 - 5.77 m/uLBon [facility] CenterSegmented neutrophils/100 WBC (Bld)5.24 %[facility] Medical CenterWBC other (Bld) [#/Vol] 8.2[facility] Chippewa FallsCBC with Diffon 09-01-2024 Abs. Basophil0.04 k/uLNormal0.00-0.20[facility] Montpelier HospitalComment on above: Performed By: #### ABEBE, SALENA, KEIKOI #### [facility] [address] [place] [address] Aircraft Cleaner: Elvis Griffiths MD #### PSAS, URNMAB, LIPR #### [place] [address] Aircraft Cleaner: Raymundo Price.Imm.Granulocyte<0.98Yrimuq4.00-0.30Park[facility] Health Montpelier HospitalComment on above:Performed By: #### ABEBE CP, URI #### [address] [place] [address] Aircraft Cleaner: Elvis Griffiths MD #### PSAS, URNMAB, LIPR #### [place] [address] Aircraft Cleaner: Raymundo Price.Neutrophil (Seg)5.24 k/uLNormal1.50-8.10 [facility] Montpelier HospitalComment on above:Performed By: #### SALENA LOMAS, URI #### [address] [place] [address] Aircraft Cleaner: Elvis Griffiths MD #### LOUISA MARLEYAB, LIPR #### [place] [address] Aircraft Cleaner: Brandon Mancia MDBasophils/100 WBC (Bld)1 %Normal0-2MKettering Health SpringfieldComment on above:Performed By: #### SALENA LOMAS, URI #### [address] [place] [address] Aircraft Cleaner: Elvis Griffiths MD #### PSAWaldo, KEIKONMAB, LIPR #### [place] [address] Aircraft Cleaner: Brandon Mancia MDEosinophils (Bld) [#/Vol]0.14 10*3/uLNormal 0.00-0.44[facility] Montpelier HospitalComment on above:Performed By: #### ABEBE, CP, URI #### [address] [place], [place] [phone] Aircraft Cleaner: Elvis Griffiths MD #### PSAWaldo, URNMAB, LIPR #### [address] [address] Aircraft Cleaner: Brandon Mancia MDEosinophils/100 WBC (Bld)2 %Normal1-4[facility] Montpelier HospitalComment on above:Performed By: #### ABEBE CP, URI #### [address] [place] [id number] Aircraft Cleaner: Elvis Griffiths MD #### DONELL URRACHEALAB, LIPR #### [address] [phone] Aircraft Cleaner: Brandon Mancia MDErythrocyte distribution width (RBC) [Ratio]13.1 %Auvtug19.8-14.4[facility] Montpelier HospitalComment on above:Performed By: #### SALENA LOMAS, URI #### [address] [place] [id number] Aircraft Cleaner: Elvis Griffiths MD #### LOUISA MARLEYAB, LIPR #### [address] [phone] Aircraft Cleaner: Brandon Mancia MDHematocrit (Bld) [Volume fraction]43.6 %Normal 40.7-50.3Mharrison community hospitaly The Institute Of LivingComment on above:Performed By: #### ABEBE CP, URI #### [address] [place], [place] 2489783 Aircraft Cleaner: Elvis Griffiths MD #### PSAWaldo, URNMAB, LIPR #### [address] [phone] Aircraft Cleaner: Brandon Mancia MDHemoglobin (Bld) [Mass/Vol]14.8 g/dLNormal 13.0-17.0Mercy Fleming HospitalComment on above:Performed By: #### CDP, CP, URI #### [address] [place] [address] Aircraft Cleaner: Elvis Griffiths MD #### PSAS, URNMAB, LIPR #### [address] [address] Aircraft Cleaner: Brandon Mancia MDImmature granulocytes/100 WBC (Bld)0 %Normal0 [facility] Montpelier HospitalComment on above:Performed By: #### ABEBE, CP, URI #### [address] [place] [address] Aircraft Cleaner: Elvis Griffiths MD #### PSAS, URNMAB, LIPR #### [address] [address] Aircraft Cleaner: Brandon Mancia MDLymphocytes (Bld) [#/Vol]2.14 10*3/uLNormal 1.10-3.70[facility] HospitalComuniversity of michigan health on above:Performed By: #### ABEBE, CP, URI #### [address] [place], [place] 1999883 Aircraft Cleaner: Elvis Griffiths MD #### PSAS, URNMAB, LIPR #### [address] [address] Aircraft Cleaner: Brandon Mancia MDLymphocytes/100 WBC (Bld)26 %Xeubps96-70UqibhParkview Health Montpelier HospitalComuniversity of michigan health on above:Performed By: #### ABEBE, CP, URI #### [address] [place], [place] 7468483 Aircraft Cleaner: Elvis Griffiths MD #### PSAS, URNMAB, LIPR #### [address] [phone] Aircraft Cleaner: LANDON PriceCH (RBC) [Entitic mass]28.9 wfOxnkap75.2-33.5 [facility] Montpelier HospitalComment on above:Performed By: #### SALENA LOMAS, URI #### [address] [place], [place] 8379983 Aircraft Cleaner: Elvis Griffiths MD #### PSAS, URNMAB, LIPR #### [address] [id number] Aircraft Cleaner: LANDON PriceCHC (RBC) [Mass/Vol]33.9 g/oCOcvswj67.4-34.8 [facility] HospitalComment on above:Performed By: #### SALENA LOMAS, URI #### [address] [place] [id number] Aircraft Cleaner: Elvis Griffiths MD #### DONELL, LOUISAAB, LIPR #### [address] [address] Aircraft Cleaner: LANDON PriceCV (RBC) [Entitic vol]85.2 mVNqghiw06.6-102.9 [facility] Health HospitalComment on above:Performed By: #### SALENA LOMAS, URI #### [address] [place] [id number] Aircraft Cleaner: Elvis Griffiths MD #### PSAS, URNMAB, LIPR #### [address] [address] Aircraft Cleaner: LANDON Priceonocytes (Bld) [#/Vol]0.60 10*3/uLNormal 0.10-1.20[facility] Montpelier HospitalComment on above:Performed By: #### ABEBE, CP, URI #### [address] [place] [id number] Aircraft Cleaner: Elvis Griffiths MD #### PSAS, URNMAB, LIPR #### [address] [id number] Aircraft Cleaner: LANDON Priceonocytes/100 WBC (Bld)7 %Normal3-12[facility] Montpelier HospitalComment on above:Performed By: #### CDP, CP, URI #### [address] [place] [id number] Aircraft Cleaner: Elvis Griffiths MD #### PSAS, URNMAB, LIPR #### [place] [phone] Aircraft Cleaner: Brandon Mancia MDNeutrophil (Seg)64 %Xznhbm18-40HoicvParkview Health Montpelier HospitalComment on above:Performed By: #### SALENA LOMAS, URI #### [address] [place] [phone] Aircraft Cleaner: Elvis Griffiths MD #### PSAS, URNMAB, LIPR #### [place] [phone] Aircraft Cleaner: Brandon Mancia MDNRBC Automated0.0 per 100 WBCNormal0.0[facility] Montpelier HospitalComment on above:Performed By: #### ABEBE, CP, URI #### [address] [place] [id number] Aircraft Cleaner: Elvis Griffiths MD #### PSAS, URNMAB, LIPR #### [place] [id number] Aircraft Cleaner: LOGAN Pricelatelet mean volume (Bld) [Entitic vol]10.0 fL Normal8.1-13.5[facility] Montpelier HospitalComment on above:Performed By: #### CDP, CP, URI #### [address] [place], [place] 6403783 Aircraft Cleaner: Elvis Griffiths MD #### PSAS, URNMAB, LIPR #### [place] [address] [place] [address] Aircraft Cleaner: Thalia Price ([facility]) [#/Vol]212 10*3/kVNaezpa382-800 [facility]pelier HospitalComment on above:Performed By: #### CDP, CP, URI #### [address] [place] [address] Aircraft Cleaner: Elvis Griffiths MD #### PSAS, URNMAB, LIPR #### [address] [address] Aircraft Cleaner: MIN Price ([facility]) [#/Vol]5.12 10*6/uLNormal4.21-5.77 [facility] Montpelier HospitalComment on above:Performed By: #### CDP, CP, URI #### [address] [place] [address] Aircraft Cleaner: Elvis Griffiths MD #### PSAS, URNMAB, LIPR #### [address] [address] Aircraft Cleaner: Brandon Mancia MDLONG [facility]LAND [facility] ([facility]) [#/Vol]8.2 10*3/uLNormal3.5-11.3MKettering Health SpringfieldComment on above:Performed By: #### CDP, CP, URI #### [address] [place] [address] Aircraft Cleaner: Elvis Griffiths MD #### PSAS, URNMAB, LIPR #### [address] [address] Aircraft Cleaner: POLLY Pricepark [facility] Metabolic Profon [id number] [Mass/Vol]4.3 g/dLNormal3.5-5.2MKettering Health SpringfieldComment on above:Performed By: #### SALENA LOMAS, URI #### [address] [place] [id number] ( Aircraft Cleaner: Elvis Griffiths MD #### PSAS, URNMAB, LIPR #### [address] [phone] Aircraft Cleaner: Brandon Mancia MDAlbumin/Glob Ratio1.1Kwksws2.0-2.5[facility] Montpelier HospitalComment on above:Performed By: #### SALENA LOMAS, URI #### [address] [place] [id number] Aircraft Cleaner: Elvis Griffiths MD #### LOUISA MARLEYAB, LIPR #### [address] [phone] Aircraft Cleaner: Julius Pricekaline Phos87 U/CVpeljd12-222ZcbzeParkview Health Montpelier HospitalComment on above:Performed By: #### SALEAN LOMAS, URI #### [address] [place] [id number] Aircraft Cleaner: Elvis Griffiths MD #### LOUISA MARLEYAB, LIPR #### [address] [address] Aircraft Cleaner: Brandon Mancia MDALT [Catalytic activity/Vol]21 U/HLvlczf30-32 [facility] HospitalComuniversity of michigan health on above:Performed By: #### SALENA LOMAS, URI #### [address] [place], [place] 7409583 Aircraft Cleaner: Elvis Griffiths MD #### PSAWaldo, URNMAB, LIPR #### [address] [phone] Aircraft Cleaner: Peyton Price gap [Moles/Vol]14 mmol/LNormal9-16[facility] Montpelier HospitalComment on above:Performed By: #### SALENA LOMAS, URI #### [facility] [address] [place] [address] Dr. [place], [place] 3391083 Aircraft Cleaner: Elvis Griffiths MD #### PSALOUISA HaasAB, LIPR #### [address] [phone] Aircraft Cleaner: Brandon Mancia MDAST [Catalytic activity/Vol]21 U/GBfjabr42-24 [facility] Montpelier HospitalComment on above:Performed By: #### SALENA LOMAS, URI #### [facility] [address] [place] [address] Dr. [place] [phone] Aircraft Cleaner: Elvis Griffiths MD #### JALEN MARLEY, LIPR #### [address] [address] Aircraft Cleaner: Brandon Mancia MDBilirubin [Mass/Vol]0.5 mg/dLNormal0.00-1.20 [facility] Montpelier HospitalComment on above:Performed By: #### SALENA LOMAS, URI #### [address] [place] [id number] Aircraft Cleaner: Elvis Griffiths MD #### PSALOUISA HaasAB, LIPR #### [address] [address] Aircraft Cleaner: Brandon Mancia MDBUN/CRE Yeiyw99Zszumm1-24[facility] Comment on above:Performed By: #### SALENA LOMAS, URI #### [address] [place], [place] 7878383 Aircraft Cleaner: Elvis Griffiths MD #### PSAS URNMAB, LIPR #### [address] [phone] Aircraft Cleaner: POLLY Pricealcium [Mass/Vol]8.7 mg/dLNormal8.6-10.4[facility] Montpelier HospitalComment on above:Performed By: #### ABEBE, SALENA, URI #### [address] [place], [place] 4514883 Aircraft Cleaner: Elvis Griffiths MD #### PSAS URNMAB, LIPR #### [place] [address] [place], [place] 5201508 Aircraft Cleaner: POLLY Pricehloride [Moles/Vol]103 mmol/EZspccs45-848OjrsnParkview Health Montpelier HospitalComment on above:Performed By: #### SALENA LOMAS, URI #### [address] [place] [phone] Aircraft Cleaner: Elvis Griffiths MD #### KEIKO MARLEYNMAB, LIPR #### [address] [phone] Aircraft Cleaner: Brandon Mancia MDCO2 [Moles/Vol]24 mmol/TWbflfh74-85UxpqhParkview Health Montpelier HospitalComment on above:Performed By: #### ABEBE, CP, URI #### [address] [place], [place] 5223083 Aircraft Cleaner: Elvis Griffiths MD #### PSAKEIKO HaasNMAB, LIPR #### [place] [address] [place], [place] 7969308 Aircraft Cleaner: POLLY Pricereatinine [Mass/Vol]0.8 mg/dLNormal0.70-1.20 [facility] HospitalComuniversity of michigan health on above:Performed By: #### ABEBE, CP, URI #### [address] [place], [place] 1185383 Aircraft Cleaner: Elvis Griffiths MD #### PSAS, URNMAB, LIPR #### [address] [phone] Aircraft Cleaner: Brandon Mancia MDGFR/1.73 sq M.predicted among non-blacks MDRD (S/P/Bld) [Vol rate/Area]mL/min/{1.73_m2}Normal>60Park[facility] Montpelier HospitalComment on above:Result Comment: These results are [...] secretion.Performed By: #### SALENA LOMAS, URI #### [address] [place] [address] Aircraft Cleaner: Elvis Griffiths MD #### JALEN MARLEY, LIPR #### [address] [id number] Aircraft Cleaner: Brandon Mancia MDGlucose [Mass/Vol]108 mg/wAVujd54-68Acxpq88 Taylor StreetComment on above:Performed By: #### SALENA LOMAS, URI #### [address] [place] [address] Aircraft Cleaner: Elvis Griffiths MD #### JALEN MARLEY, LIPR #### [address] [phone] Aircraft Cleaner: LOGAN Priceotassium [Moles/Vol]4.1 mmol/LNormal3.7-5.3 [facility] HospitalComuniversity of mich[facility] health on above:Performed By: #### SALENA LOMAS, URI #### [address] [place] [address] Aircraft Cleaner: Elvis Griffiths MD #### PSAS, URNMAB, LIPR #### [facility] [employer] [facility] [place], [place] 5197608 Aircraft Cleaner: LOGAN Pricerotein [Mass/Vol]6.9 g/dLNormal6.6-8.7Park[facility] Montpelier HospitalComment on above:Performed By: #### CDP, CP, URI #### [address] [place] [id number] Aircraft Cleaner: Elvis Griffiths MD #### PSAS, URNMAB, LIPR #### [facility] [employer] [facility] [place], [place] 2385708 Aircraft Cleaner: ALYSHA Priceodium [Moles/Vol]141 mmol/PZyiece408-711PufbcParkview Health Montpelier HospitalComment on above:Performed By: #### CDP, CP, URI #### [address] [place] [phone] Aircraft Cleaner: Elvis Griffiths MD #### PSAS, URNMAB, LIPR #### [facility] [employer] [facility] [place], [place] 8566208 Aircraft Cleaner: Brandon Mancia MDUrea nitrogen [Mass/Vol]14 mg/dLNormal6-20[facility] Montpelier HospitalComment on above:Performed By: #### CDP, CP, URI #### [address] [place] [address] Aircraft Cleaner: Elvis Griffiths MD #### PSAS, URNMAB, LIPR #### [facility] [employer] [facility] [place], [place] [phone] Aircraft Cleaner: POLLY Priceomprehensive Metabolic Panelon 09-01-2024 Albumin [Mass/Vol]4.3 g/dL3.5 - 5.2 g/dLBon [facility] CenterAlbumin/Globulin [Mass ratio]1.6 {ratio}1.0 - 2.5Bon [facility] Medical CenterALP [Catalytic activity/Vol]87 U/L40 - 129 U/LBon [facility] HealthALT [Catalytic activity/Vol]21 U/L10 - 50 U/LBon [facility] Medical CenterAnion gap [Moles/Vol]14 mmol/L9 - 16 mmol/LBon [facility] HealthAST [Catalytic activity/Vol]21 U/L10 - 50 U/LBon [facility] HospitalSimplyBox HealthBilirubin [Mass/Vol]0.5 mg/dL0.00 - 1.20 mg/dL Bon SecOhioHealth Shelby HospitalCalcium [Mass/Vol]8.7 mg/dL8.6 - 10.4 mg/dLBon [facility] Medical CenterChloride [Moles/Vol]103 mmol/L98 - 107 mmol/LBon [facility] Medical CenterCO2 [Moles/Vol]24 mmol/L20 - 31 mmol/LBon [facility] CenterCreatinine [Mass/Vol]0.8 mg/dL0.70 - 1.20 mg/dLBon [facility] CenterEst, Glom Filt Rate- PINFBon [facility] Medical CenterComment on above: These results are not intended [...] that affects renal tubular secretion. Glucose [Mass/Vol]108 mg/oKXabl47 - 99 mg/dLBon [facility] Interpretation and review of laboratory resultsAbnormalBon [facility] Potassium [Moles/Vol]4.1 mmol/L3.7 - 5.3 mmol/LBon [facility] Medical CenterProtein [Mass/Vol]6.9 g/dL6.6 - 8.7 g/dLBon [facility] Medical CenterSodium [Moles/Vol]141 mmol/L136 - 145 mmol/LBon [facility] Medical CenterUrea nitrogen [Mass/Vol]14 mg/dL6 - 20 mg/dLBon [facility] Medical CenterUrea nitrogen/Creatinine [Mass ratio]18 mg/mg9 - 20Bon [facility] Medical CenterLipid Panelon [id number] [Mass/Vol]163 mg/dL0 - 199 mg/dLBon [facility] Medical CenterComment on above: Cholesterol Guidelines: <200 Desirable 200-240 Borderline >240 Undesirable Cholesterol in HDL [Mass/Vol]28 mg/dLLow40 - PINF mg/dLBon [facility] Comment on above: HDL Guidelines: <40 Undesirable 40-59 Borderline >59 Desirable Cholesterol in LDL [Mass/Vol]117 mg/dLHigh0 - 100 mg/dLBon [facility] Comment on above: LDL Guidelines: <100 Desirable 100-129 Near to/above Desirable 130-159 Borderline >159 Undesirable Direct (measured) LDL and calculated LDL are not interchangeable tests. Cholesterol in VLDL [Mass/Vol]18 mg/dL1 - 30 mg/dLBon [facility] Cholesterol.total/Cholesterol in HDL [Mass ratio]5.8 {ratio}HighNINF - 5.0Bon [facility] CenterInterpretation and review of laboratory resultsAbnormalBon [facility] Medical CenterTriglyceride [Mass/Vol]90 mg/dLNINF - 150 mg/dLBBon Secours Health SystemComment on above: Triglyceride Guidelines: <150 Desirable 150-199 Borderline 200-499 High >499 Very high Based on AHA Guidelines for fasting triglyceride, December 2011. [facility] CenterLipid Profileon [id number] [Mass/Vol]163 mg/dLNormal0-199Park[facility] Montpelier HospitalComment on above:Result Comment: Cholesterol Guidelines: <200 Desirable 200-240 Borderline >240 UndesirablePerformed By: #### CDP, CP, URI #### [facility] [address] [place] [address] Aircraft Cleaner: Elvis Griffiths MD #### KEIKO MARLEYNMAB, LIPR #### [facility] [employer] [address] [place] [address] Aircraft Cleaner: POLLY Priceholesterol in HDL [Mass/Vol]28 mg/dLLow>40Park[facility] Montpelier HospitalComment on above:Result Comment: HDL Guidelines: <40 Undesirable 40-59 Borderline >59 DesirablePerformed By: #### CDP, CP, URI #### [address] [place], [place] 2286683 Aircraft Cleaner: Elvis Griffiths MD #### LOUISA MARLEYAB, LIPR #### [address] [address] Aircraft Cleaner: Brandon Mancia MDCholesterol in LDL [Mass/Vol]117 mg/dLHigh0-100 [facility]pelier HospitalComment on above:Result Comment: LDL Guidelines: <100 Desirable 100-129 Near to/above Desirable 130-159 Borderline >159 Undesirable Direct (measured) LDL and calculated LDL are not interchangeable tests.Performed By: #### SALENA LOMAS, URI #### [address] [place], [place] 7635983 Aircraft Cleaner: Elvis Griffiths MD #### JALEN MARLEY, LIPR #### [address] [address] Aircraft Cleaner: POLLY Priceholesterol in VLDL [Mass/Vol]18 mg/dLNormal1-30 [facility] Montpelier HospitalComment on above:Performed By: #### SALENA LOMAS, URI #### [address] [place], [place] 9439883 Aircraft Cleaner: Elvis Griffiths MD #### KEIKO MARLEYNMAB, LIPR #### [place] [address] [place] [address] Aircraft Cleaner: POLLY Priceholestreji.total/Cholesterol in HDL [Mass ratio]5.8 {ratio}High<5.0[facility] HospitalComuniversity of michigan health on above:Performed By: #### SALENA LOMAS, URI #### [address] [place], [place] 4998183 Aircraft Cleaner: Elvis Griffiths MD #### KEIKO MARLEYNMAB, LIPR #### [facility] [address] [place], [place] 4863308 Aircraft Cleaner: Brandon Mancia MDTriglyceride [Mass/Vol]90 mg/dLNormal<150Park[facility] Montpelier HospitalComment on above:Result Comment: Triglyceride Guidelines: <150 Desirable 150-199 Borderline 200-499 High >499 Very high Based on AHA Guidelines for fasting triglyceride, December 2011.Performed By: #### CDP, CP, URI #### [facility] [address] [place] [address] Aircraft Cleaner: Elvis Griffiths MD #### PSAS, URNMAB, LIPR #### [facility] [address] [place], [place] 0497908 Aircraft Cleaner: Brandon Mancia MDMHPT CBC WITH DIFFon [id number]/100 WBC (Bld)1 %0 - 2 %NOMS HealthcareEosinophils/100 WBC (Bld)2 %1 - 4 %[facility] HospitalErythrocyte distribution width (RBC) [Ratio]13.1 %11.8 - 14.4 %[facility] HospitalHematocrit (Bld) [Volume fraction]43.6 %40.7 - 50.3 %[facility] Hemoglobin (Bld) [Mass/Vol]14.8 g/dL13.0 - 17.0 g/dLLiberty HospitalImmature granulocytes/100 WBC (Bld)0 %0NOSaint Joseph Health CenterLymphocytes/100 WBC (Bld)26 %24 - 43 %[facility] HospitalMCH (RBC) [Entitic mass]28.9 pg25.2 - 33.5 pgNOKY Healthcare MCHC (RBC) [Mass/Vol]33.9 g/dL28.4 - 34.8 g/dLLiberty HospitalMCV (RBC) [Entitic vol]85.2 fL82.6 - 102.9 fLNOKY HealthcareMHPT ABS. BASOPHIL0.04NOKY Healthcare MHPT ABS. EOSINOPHIL0.14NOKY HealthcareMHPT ABS. LYMPH2.14NOKY HealthcareMHPT ABS. MONOCYTE0.6NOKY HealthcareMHPT ABS.IMM.GRANULOCYTE<0.03NOSaint Joseph Health CenterMHPT ABS.NEUTROPHIL (SEG)5.24NOColumbia Regional HospitalPT NRBC QWYBJPSNK68.0 per 100 WBCNOColumbia Regional HospitalPT PLATELET [id number] Regional HospitalPT WBC COUNT8.2NOMS Healthcare Monocytes/100 WBC (Bld)7 %3 - 12 %NOM HealthcarePlatelet mean volume (Bld) [Entitic vol]10 fL8.1 - 13.5 fLMOUNTAINSTAR HEALTHCARE HealthcareRBC (Bld) [#/Vol]5.12 10*6/uL4.21 - 5.77 m/uLNOSaint Joseph Health CenterSegmented neutrophils/100 WBC (Bld)64 %36 - 65 %[facility] HealthcareOriginal Ordering Provider: JENN BOXSt. Louis Behavioral Medicine InstituteNo Panel Informationon [id number] [facility] Screening on [id number] specific Ag [Mass/Vol]0.5 ng/mL0.00 - 4.00 ng/mLBon [facility] CenterComment on above:The Kesha ECLIA assay is used. Results obtained with different assay methods cannot be used interchangeably. Bon [facility], Screeningon [id number] Spec. Ag0.50 ng/mL Normal0.00-4.00[facility] Montpelier HospitalComment on above:Result Comment: The Kesha ECLIA assay is used. Results obtained with different assay methods cannot be used interchangeably.Performed By: #### SALENA LOMAS, URI #### [address] [place] [address] Aircraft Cleaner: Elvis Griffiths MD #### PSAS, URNMAB, LIPR #### [facility] [address] [place] [address] Aircraft Cleaner: Brandon Mancia MDUric Acidon [id number] [Mass/Vol]6.1 mg/dL 3.4 - 7.0 mg/dLBon [facility] Medical CenterUrate [Mass/Vol]6.1 mg/dLNormal3.4-7.0 [facility] HospitalComment on above:Performed By: #### SALENA LOAMS, URI #### [facility] [address] [place] [address] [place] [address] Aircraft Cleaner: Elvis Griffiths MD #### PSAS, URNMAB, LIPR #### [place] [address] [place], [place] 9003208 Aircraft Cleaner: Brandon Mancia MDUrinalysison [id number] Ql (U)Negative NEGATIVEBon SecCypress [facility] HealthClarity (U)ClearClearBon SecCypress Pointe [facility] Health Color (U)YellowYellowBon [facility] Medical CenterGlucose Test strip (U) [Mass/Vol] NegativeNEGATIVE mg/dLBon [facility] CenterHemoglobin Auto test strip Ql (U) NegativeNEGATIVEBon [facility] HealthInterpretation and review of laboratory resultsAbnormalBon SecCypress [facility]inte [facility] HealthKetones (U) [Mass/Vol]NegativeNEGATIVE mg/dLBon [facility] CenterLeukocyte esterase Test strip Ql (U)Negative NEGATIVEBon SecCypress [facility]inte [facility] HealthNitrite Ql (U)NegativeNEGATIVEBon SecCyp[facility] HealthpH (U)6 [pH]5.0 - 9.0Bon [facility] HealthProtein (U) [Mass/Vol] NegativeNEGATIVE mg/dLBon [facility] HealthSpecific gravity (U) [Rel density] 1.153Xvug8.010 - 1.020Bon [facility] Medical CenterUrobilinogen Qn (U)Normal0.0 - 1.0 EU/dLBon SecAscension Good Samaritan Health CenterUrinalysis, Routineon [id number], SemiQt,UrNegativeNormalNEGMerLawrence+Memorial HospitalComment on above:Performed By: #### UA #### [facility] [address] [place] [address] Aircraft Cleaner: Alethea Resendiz, UrineNegativeNormalKnox Community Hospital Comment on above:Performed By: #### UA #### [facility] [address] [place] [address] Aircraft Cleaner: POLLY Resendizlarity (U)ClearNormalCLEARParkview Health Montpelier Hospital Comment on above:Performed By: #### UA #### [facility] [address] [place] [address] Dr. [place], [facility]83 Aircraft Cleaner: POLLY Resendizolor (U)YellowNormalYELMerLawrence+Memorial Hospital Comment on above:Performed By: #### UA #### [facility] [address] [place] [address] Dr. [place], [facility]83 Aircraft Cleaner: Elvis Griffiths MDGlucose Ql (U)NegativeNormalNEGParkview Health Montpelier HospitalComment on above:Performed By: #### UA #### [facility] [address] [place] [address] Dr. [place], [facility]83 Aircraft Cleaner: Elvis Griffiths MDKetones Ql (U)NegativeNormalNEGParkview Health Montpelier HospitalComment on above:Performed By: #### UA #### [facility] [address] [place] [address] Dr. [place], [facility]83 Aircraft Cleaner: Elvis Griffiths MDLeukocyte esterase Test strip Ql (U)NegativeNormal NEGParkview Health Montpelier HospitalComment on above:Performed By: #### UA #### [facility] [address] [place] [address] Dr. [place], [facility]83 Aircraft Cleaner: Elvis Griffiths MDNitrite,UrNegativeNormalKnox Community Hospital Comment on above:Performed By: #### UA #### [facility] [address] [place] [address] Dr. [place], [facility]83 Aircraft Cleaner: LOGAN Resendiz,Ur6.7Oyxbhr8.0-9.0MerLawrence+Memorial HospitalComment on above:Performed By: #### UA #### [facility] [facility] [address] [place] [address] Dr. [place], [place] [id number] Aircraft Cleaner: LOGAN Resendizrotein Ql (U)NegativeNormalNEGMerParkview Health Montpelier Hospital HospitalComment on above:Performed By: #### UA #### [facility] [address] [place] [address] Aircraft Cleaner: Dom Resendiz. [place],Ur1.404Qenn3.010-1.020Park[facility] Montpelier HospitalComuniversity of michigan health on above:Performed By: #### UA #### [facility] [address] [place], [place] [id number] Aircraft Cleaner: Elvis Griffiths MDUrobilinogen,UrNormalNormal0.0-1.0[facility] Montpelier HospitalComment on above:Performed By: #### UA #### [facility] [address] [place] [address] Aircraft Cleaner: Elvis Griffiths MDHbA1c (Bld) [Mass fraction]on 06-29-2024 Interpretation and review of laboratory resultsAbAtrium Health AnsonLaboratory - Hematology and Cell countson 60-73-4484SrI1b (Bld) [Mass fraction]5.90 %[facility] HealthcareMRSA CULTUREon 05-74-1590Gwbazfcgodciiw and review of laboratory resultsAbTrinity Health LivoniaSA CULTURE O:STAAUR Isolated [facility] HealthcareMRSA CULTURE MRSA Culture Quantity of Growth Cox BransonSA CULTURELIGHTCox BransonSA CULTUREMETHICILLIN RESISTANT STAPH AUREUS ISOLATED. PLEASE FOLLOWCitizens Memorial Healthcare CULTURELiberty Hospital MRSA CULTUREMRSA CALL TO DR. LEUNG. 09-24-23 AT 1148[facility] CULTURE Organism: 1.1 Antibiotic Interpretation GEMA Status NOMS HealthcareMRSA CULTUREBeta Lactamase N FNOMS HealthcareMRSA CULTURE Cefoxitin Screen A FAbnormalLiberty HospitalMRSA CULTURECiprofloxacin S <=0.5 F SusceptibleNOKY HealthcareMRSA CULTUREClindamycin S <=0.25 FSusceptibleNOKY HealthcareMRSA CULTUREErythromycin S <=0.25 FSusceptibleNOKY HealthcareMRSA CULTUREInducible Clindamycin Resis N FNOMS HealthcareMRSA CULTURELevofloxacin S 0.25 FSusceptibleLiberty HospitalMRSA CULTURELinezolid S 2 FSusceptibleLiberty HospitalMRSA CULTUREOxacillin R >=4 FResistantNOMS HealthcareMRSA CULTURE Penicillin-G R >=0.5 FResistantNOMS HealthcareMRSA CULTURE Quinupristin/Dalfopristin S <=0.25 FSusceptibleNOMS HealthcareMRSA CULTURE Rifampin S <=0.5 FSusceptibleNOMS HealthcareMRSA CULTURETetracycline S <=1 F SusceptibleNOMS HealthcareMRSA CULTURETrimethoprim/Sulfamethoxazole S <=10 F SusceptibleNOMS HealthcareMRSA CULTUREVancomycin S 1 FSusceptibleNOMS Healthcare CLINISYNCNOMS HealthcareECG 12-LEADon 03-51-0491[place] [address] Electrocardiograph Report Signed Patient: HAIR BRENNER MR#: [id number] : 1975 Acct:[id number] Age/Sex: 48 / M ADM Date: 09/22/23 Loc: LAB Attending Dr: Carlito Leung M.D. Ordering Physician: Carlito Leung M.D. 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 Signed By: 09/22/23221409/22/232214 DD/ 9 TD/TT: Sign Erector And Repairer:ILAadiologsusan, Radiologist, - 09/22/2023 [place] [address] Electrocardiograph Report Signed Patient: HAIR BRENNER MR#: [id number] : 1975 Acct:[id number] Age/Sex: 48 / M ADM Date: 09/22/23 Loc: LAB Attending Dr: Carlito Leung M.D. Ordering Physician: Carlito Leung M.D. Date of Service: 09/22/23 Procedure(s): ECG 12 lead Accession Number(s): [id number] cc: [facility] Test Date: 2023-09-22 Pat Name: HAIR BRENNER Department: Room: - Gender: Male Extraction Supervisor: : 1975 Requested By: 2089 Order Number: [id number] Reading MD: WOO MARQUEZ Measurements Intervals Shunk Rate: 83 P: 35 WA: 205 QRS: 18 QRSD: 109 T: 27 QT: 393 QTc: 464 Interpretive Statements SINUS RHYTHM Compared to ECG 03/06/2021 21:21:10 No significant changes Electronically Signed On 09-22-2023 22:15:28 EDT by WOO MARQUEZ Dictated By: Woo Marquez D.O. Signed By: 09/22/23221409/22/232214 DD/ 0740 TD/TT: Sign Erector And Repairer: FELIPA HealthcareRadiology Study observation (narrative)FELIPA HealthcareECG 12-LEAD Ordered By: Radiologist Radiology on 91-14-7220[facility] Work Phone: XR CHEST 2Von 25-04-4768[place], [place] [address] XRay Report Signed Patient: HAIR BRENNER MR#: [id number] : 1975 Acct:[id number] Age/Sex: 48 / M ADM Date: 09/22/23 Loc: LAB Attending Dr: Carlito Leung M.D. Ordering Physician: Carlito Leung M.D. Date of Service: 09/22/23 Procedure(s): XR chest 2V Accession Number(s): [id number] cc: Shaikh Heath Cordoba; Carlito Leung M.D. [address] [address] Patient Name: HAIR BRENNER MRN: [id number]:[id number] date: 1975 Sex: M Assigned Patient Location: LAB Current Patient Location: LAB Accession/Order Number: [id number] Exam Date: 09/22/2023 07:50 Report Date: 09/22/2023 [...] Signed By: 09/22/23 1257 DD/ 1255 TD/TT: Sign Erector And Repairer:TBHRadiology, Radiologist, - 09/22/2023 [place] [address] XRay Report Signed Patient: HAIR BRENNER MR#: [id number] : 1975 Acct:[id number] Age/Sex: 48 / M ADM Date: 09/22/23 Loc: LAB Attending Dr: Carlito Leung M.D. Ordering Physician: Carlito Leung M.D. Date of Service: 09/22/23 Procedure(s): XR chest 2V Accession Number(s): [id number] cc: Shaikh Heath Cordoba; Carlito Leung M.D. The [place] [phone] Patient Name: HAIR BRENNER MRN: [id number] date: 1975 Sex: M Assigned Patient Location: LAB Current Patient Location: LAB Accession/Order Number: [id number] Exam Date: 09/22/2023 07:50 Report Date: 09/22/2023 [...] Signed By: 09/22/23 1257 DD/ 1255 TD/TT: Sign Erector And Repairer: FELIPA HealthcareRadiology Study observation (narrative)NOM HealthcareXR CHEST 2V Ordered By: Radiologist Radiology on 15-18-6987IBOELiberty Hospital Work Phone: XR LUMBAR SPINE MIN 4Von 61-00-5362[place]uu[place], [place] [address] XRay Report Signed Patient: HAIR BRENNER MR#: [id number] : 1975 Acct:[id number] Age/Sex: 48 / M ADM Date: 07/11/23 Loc: EC Attending Dr: Gerardo Parker M.D. Ordering Physician: Gerardo Parker M.D. Date of Service: 07/11/23 Procedure(s): XR lumbar spine min 4V Accession Number(s): [id number] cc: Shaikh Heath Cordoba; Gerardo Parker M.D. The [place] [address] Patient Name: HAIR BRENNER MRN: [id number] date: 1975 Sex: M Assigned Patient Location: EC Current Patient Location: Accession/Order Number: [id number] Exam Date: 07/11/2023 10:18 Report Date: 07/12/2023 [...] Signed By: 07/12/23 1033 DD/ 1030 TD/TT: Sign Erector And Repairer:TBHRadiology, Radiologist, MD - 07/12/[address] [address] XRay Report Signed Patient: HAIR BRENNER MR#: [id number] : 1975 Acct:[id number] Age/Sex: 48 / M ADM Date: 07/11/23 Loc: EC Attending Dr: Gerardo Parker M.D. Ordering Physician: Gerardo Parker M.D. Date of Service: 07/11/23 Procedure(s): XR lumbar spine min 4V Accession Number(s): [id number] cc: Shaikh Heath Cordoba; Gerardo Parker M.D. [address] [address] Patient Name: HAIR BRENNER MRN: [id number] date: 1975 Sex: M Assigned Patient Location: Current Patient Location: Accession/Order Number: [id number] Exam Date: 07/11/2023 10:18 Report Date: 07/12/2023 [...] Signed By: 07/12/23 1033 DD/ 1030 TD/TT: Sign Erector And Repairer: FELIPA HealthcareRadiology Study observation (narrative)NOM HealthcareXR LUMBAR SPINE MIN 4VOrdered By: Radiologist Radiology on 48-97-7294[facility] Work Phone: MR LUMBAR SPINE WO CONon 17-53-4232[address] [address] Magnetic Resonance Report Signed Patient: HAIR BRENNER MR#: [id number] : 1975 Acct:[id number] Age/Sex: 48 / M ADM Date: 07/03/23 Loc: RAD Attending Dr: Shaikh Adalid Joe Ordering Physician: Shaikh Heath Cordoba Date of Service: 07/03/23 Procedure(s): MR lumbar spine wo con Accession Number(s): [id number] cc: Shaikh Heath Cordoba [address] [address] Patient Name: HAIR BRENNER MRN: [facility]:[id number] date: 1975 Sex: M Assigned Patient Location: [facility] Current Patient Location: RAD Accession/Order Number: [id number] Exam Date: 07/03/2023 09:10 Report Date: 07/03/2023 [...] Signed By: 07/03/23 1019 DD/ 1017 TD/TT: Sign Erector And Repairer:TBHRadiology, Radiologist, - 07/03/2023 [place] [address] Magnetic Resonance Report Signed Patient: HAIR BRENNER MR#: [id number] : 1975 Acct:[id number] Age/Sex: 48 / M ADM Date: 07/03/23 Loc: RUDDY Attending Dr: Shaikh Adalid Joe Ordering Physician: Shaikh Heath Cordoba Date of Service: 07/03/23 Procedure(s): MR lumbar spine wo con Accession Number(s): [id number] cc: Shaikh Heath Cordoba The [place] [address] Patient Name: HAIR BRENNER MRN: [facility]:[id number] date: 1975 Sex: M Assigned Patient Location: [facility] Current Patient Location: [facility] Accession/Order Number: [id number] Exam Date: 07/03/2023 09:10 Report Date: 07/03/2023 [...] at L3-L4 and L5-S1. Electronically authenticated by: RMAIREZ DE LA CRUZ Date: 07/03/2023 10:17 Dictated By: Ramirez De La Cruz M.D. Signed By: 07/03/23 1019 DD/ 1017 TD/TT: Sign Erector And Repairer: FELIPA HealthcareRadiology Study observation (narrative)[facility] LUMBAR SPINE WO CONOrdered By: Radiologist Radiology on 93-64-6921[facility] Work Phone: XR FOREIGN BODY EYEon 81-41-8233[place] [address] XRay Report Signed Patient: HAIR BRENNER MR#: [id number] : 1975 Acct:[id number] Age/Sex: 48 / M ADM Date: 07/03/23 Loc: RAD Attending Dr: Shaikh Adalid Joe Ordering Physician: Shaikh Heath Cordoba Date of Service: 07/03/23 Procedure(s): XR foreign body eye Accession Number(s): [id number] cc: Shaikh Heath Cordoba [address] [address] Patient Name: HAIR BRENNER MRN: [id number] date: 1975 Sex: M Assigned Patient Location: RAD Current Patient Location: RAD Accession/Order Number: [id number] Exam Date: 07/03/2023 08:50 Report Date: 07/03/2023 [...] head for further evaluation. Electronically authenticated by: MKIAYLA COVINGTON Date: 07/03/2023 09:10 Dictated By: Mikayla Covington M.D. Signed By: 07/03/23912 DD/ 9 TD/TT: Sign Erector And Repairer:TBHRadiology, Radiologist, MD - 07/03/2023 [place] [address] XRay Report Signed Patient: HAIR BRENNER MR#: [id number] : 1975 Acct:[id number] Age/Sex: 48 / M ADM Date: 07/03/23 Loc: RAD Attending Dr: Shaikh Adalid Joe Ordering Physician: Shaikh Heath Cordoba Date of Service: 07/03/23 Procedure(s): XR foreign body eye Accession Number(s): [id number] cc: Shaikh Heath Cordoba The [address] [address] Patient Name: HAIR BRENNER MRN: [id number]:[id number] date: 1975 Sex: M Assigned Patient Location: RAD Current Patient Location: RAD Accession/Order Number: [id number] Exam Date: 07/03/2023 08:50 Report Date: 07/03/2023 [...] M.D. Signed By: 07/03/23912 DD/ 9 TD/TT: Sign Erector And Repairer: FELIPA HealthcareRadiology Study observation (narrative)[facility] HealthcareXR FOREIGN BODY EYEOrdered By: Radiologist Radiology on 17-04-5306JVEV [employer] Work Phone: XR LUMBAR SPINE 2 OR 3Von 25-59-0854[place] [address] XRay Report Signed Patient: HAIR BRENNER MR#: [id number] : 1975 Acct:[id number] Age/Sex: 48 / M ADM Date: 06/06/23 Loc: [facility] Attending Dr: Shaikh Adalid Joe Ordering Physician: Shaikh Heath Cordoba Date of Service: 06/06/23 Procedure(s): XR lumbar spine 2-3V Accession Number(s): [id number] cc: Shaikh Heath Cordoba The [place] [phone] Patient Name: HAIR BRENNER MRN: [id number]:[id number] date: 1975 Sex: M Assigned Patient Location: RAD Current Patient Location: RAD Accession/Order Number: [id number] Exam Date: 06/06/2023 11:10 Report Date: 06/06/2023 [...] Signed By: 06/06/23 1303 DD/ 1300 TD/TT: Sign Erector And Repairer:TBHRadiology, Radiologist, - 06/06/2023 [place] [address] XRay Report Signed Patient: HAIR BRENNER MR#: [id number] : 1975 Acct:[id number] Age/Sex: 48 / M ADM Date: 06/06/23 Loc: RAD Attending Dr: Shaikh Adalid Joe Ordering Physician: Shaikh Heath Cordoba Date of Service: 06/06/23 Procedure(s): XR lumbar spine 2-3V Accession Number(s): [id number] cc: Shaikh Heath Cordoba The [place] [address] Patient Name: HAIR BRENNER MRN: [facility]:[id number] date: 1975 Sex: M Assigned Patient Location: [facility] Current Patient Location: RAD Accession/Order Number: [id number] Exam Date: 06/06/2023 11:10 Report Date: 06/06/2023 [...] Signed By: 06/06/23 1303 DD/ 1300 TD/TT: Sign Erector And Repairer: [facility] HOSPITALWaldo HealthcareRadiology Study observation (narrative)[facility] HealthcareXR LUMBAR SPINE 2 OR 3VOrdered By: Radiologist Radiology on 39-22-3045QFDK [employer] Work Phone: aMYLASEon 10-00-8228Bimdvff [Catalytic activity/Vol]32 U/YKfknwz29-079NxrTrihealth Bethesda North HospitalComment on above:Performed By: #### JORDON MALHOTRA, CMP #### [facility] [address] [place] [address] Dr. Brady Dai AUTO DIFFon 58-42-7537TQWV #0.0 103/ulNormal0.0-0.1[facility] HospitalComment on above:Performed By: #### CBC #### [facility] [address] [place] [address] Dr. Brady Jessicasophils/100 WBC (Bld)0.4 %Normal0.2-2.0[facility] Comment on above:Performed By: #### CBC #### [facility] [address] [place] [address] Dr. Brady Farrar #0.1 103/ulNormal0.0-0.7The [facility] HospitalComment on above: Performed By: #### CBC #### [facility] [address] [place] [address] Dr. Brady Summersosinophils/100 WBC (Bld)1.5 %Normal0.9-7.0[facility] Comment on above:Performed By: #### CBC #### [facility] [address] [place] [address] Dr. Brady Summersrythrocyte distribution width (RBC) [Ratio]13.2 %Smxaue23.0-15.0 [facility] HospitalComment on above:Performed By: #### CBC #### [facility] [address] [place] [address] Dr. Brady SandersHematocrit (Bld) [Volume fraction]41.0 %Critically low42.0-54.0 The [facility] HospitalComment on above:Performed By: #### CBC #### [facility] [address] [place] [address] Dr. Brady SandersHemoglobin (Bld) [Mass/Vol]13.8 g/dLCritically low14.0-18.0The [facility] HospitalComment on above:Performed By: #### CBC #### [facility] [address] [place] [address] Dr. Brady James #0.03 10e3/ulNormal0.00-0.03The [facility] HospitalComment on above:Performed By: #### CBC #### [facility] [address] [place] [address] Dr. Brady James %0.4 %Normal0.0-0.5The [facility] HospitalComment on above: Performed By: #### CBC #### [facility] [address] [place] [address] Dr. Brady Sofia #1.8 103/ulNormal1.2-3.8The [facility] HospitalComment on above:Performed By: #### CBC #### [facility] [address] [place] [address] Dr. Brady Renehocytes/100 WBC (Bld)21.4 %Vfxzde50.5-60.0The [facility] HospitalComment on above:Performed By: #### CBC #### [facility] [address] [place] [address] Dr. Brady ValverdeUAL DIFF REQNONormalThe Grant HospitalComment on above: Performed By: #### CBC #### [facility] [address] [place] [address] Dr. Brady SolisKyara (RBC) [Entitic mass]28.1 bcMeedrn00.9-34.0The [facility] HospitalComment on above:Performed By: #### CBC #### [facility] [address] [place] [address] Dr. Brady Solis (RBC) [Mass/Vol]33.7 g/cVAknrty66.9-35.2The [facility] HospitalComment on above:Performed By: #### CBC #### [facility] [address] [place] [address] Dr. Brady Solis (RBC) [Entitic vol]83.5 hKKfhejy81.0-94.0The [facility] HospitalComment on above:Performed By: #### CBC #### [facility] [address] [place] [address] Dr. Brady Chung #0.5 103/ulNormal0.3-0.8The [facility] HospitalComment on above:Performed By: #### CBC #### [facility] [address] [place] [address] Dr. Brday Lermaocytes/100 WBC (Bld)6.2 %Normal1.7-12.0[facility] Comment on above:Performed By: #### CBC #### [facility] [address] [place] [address] Dr. Brady LivingstonUT #5.9 103/ulNormal1.4-6.5The [facility] HospitalComment on above:Performed By: #### CBC #### [facility] [address] [place] [address] Dr. Brady Livingstonutrophils/100 WBC (Bld)70.1 %Ypdeic31.0-75.0The [facility] HospitalComment on above:Performed By: #### CBC #### [facility] [address] [place] [address] Dr. Brady Olivalet mean volume (Bld) [Entitic vol]9.6 fLNormal9.5-13.5The [facility] HospitalComment on above:Performed By: #### CBC #### [facility] [address] [place], [place] [address] Dr. Brady SandersPLT216 103/hsPdhsqh389-222Pyq [facility] HospitalComment on above: Performed By: #### CBC #### [facility] [address] [place], [place] [address] Dr[address] Brady SandersRBC4.91 106/ulNormal4.70-6.10The [facility] HospitalComment on above:Performed By: #### CBC #### [facility] [address] [place], [place] [address] Dr. Brady SandersWBC8.4 103/ulNormal4.0-11.0The [facility] HospitalComment on above: Performed By: #### CBC #### [facility] [address] [place] [address] Dr. Brady SandersCT ABD/PELV W CONon 78-21-9220AD ABD/PELV W CONEXAMINATION: CT ABD/PELV W CON [...] authenticated by: KAVIN BRIONES Date: 2022-07-25 10:58NormalThe Grant HospitalLIPASEon 41-35-8430Rksgev [Catalytic activity/Vol]96.0 U/L Vtqfwg72.0-393.0The [facility] HospitalComment on above:Performed By: #### LIPA, JORDON, CMP #### [facility] [address] [place] [address] Dr. Brady Gutierrez 14(COMP METB)on 22-36-6528Vyzrpix [Mass/Vol]3.4 g/dLNormal 3.4-5.0The [facility] HospitalComment on above:Performed By: #### LIPA, JORDON, CMP #### [facility] [address] [place] [address] Dr. Brady SandersAlbumin/Globulin [Mass ratio]0.9 {ratio}NormalThe Grant HospitalComment on above:Performed By: #### LIPA, JORDON, CMP #### [facility] [address] [place] [address] Dr. Brady Contreras [Catalytic activity/Vol]88 U/UJqxrry55-956Iwu [facility] HospitalComment on above:Performed By: #### LIPA, JORDON, CMP #### [facility] [address] [place] [address] Dr. Brady Sheehan [Catalytic activity/Vol]27 U/IBvccbx70-85Ico [facility] HospitalComment on above:Performed By: #### LIPA, JORDON, CMP #### [facility] [address] [place] [address] Dr. Brady Perdue gap [Moles/Vol]9.2 mmol/LNormalThe Grant HospitalComment on above:Performed By: #### LIPA, JORDON, CMP #### [facility] [address] [place] [address] Dr. Brady Knight [Catalytic activity/Vol]18 U/IEugrjh58-49Mhj [facility] HospitalComment on above:Performed By: #### LIPA, JORDON, CMP #### [facility] [address] [place] [address] Dr. Yilan ChangBilirubin [Mass/Vol]0.4 mg/dLNormal0.2-1.0[facility] Comment on above:Performed By: #### JORDON MALHOTRA, CMP #### [facility] [address] [place] [address] [address] Brady SandersCalcium [Mass/Vol]8.5 mg/dLNormal8.5-10.1[facility] Comment on above:Performed By: #### JORDON MALHOTRA, CMP #### [facility] [address] [place] [address] Dr. Brady SandersChloride [Moles/Vol]103 mmol/NKxigem10-797Jfb [facility] Comment on above:Performed By: #### JORDON MALHOTRA, CMP #### [facility] [address] [place] [address] Dr. Brady SandersCO2 [Moles/Vol]31.1 mmol/ITnzhrb83.0-32.0[facility] Comment on above:Performed By: #### JORDON MALHOTRA, CMP #### [facility] [address] [place] [address] Dr. Brady SandersCreatinine [Mass/Vol]0.79 mg/dLNormal0.70-1.30The [facility] HospitalComment on above:Performed By: #### JORDON MALHOTRA, CMP #### [facility] [address] [place] [address] Dr. Abreu ChangEGFR-AF FILIPINO>60Normal>=60The [facility] HospitalComment on above:Performed By: #### JORDON MALHOTRA, CMP #### [facility] [address] [place] [address] Dr. Abreu ChangEGFR-NON AF FILIPINO>60Normal>=60The [facility] HospitalComment on above:Performed By: #### JORDON MALHOTRA, CMP #### [facility] [address] [place] [address] Dr. Brady SandersGlobulin (S) [Mass/Vol]3.8 g/dLNormalThe [facility] HospitalComment on above:Performed By: #### LIPA, JORDON, CMP #### [facility] [address] [place] [address] [address] Brady SandersGlucose [Mass/Vol]140 mg/dLCritically ghei68-504Kno [facility] HospitalComment on above:Performed By: #### LIPA, JORDON, CMP #### [facility] [address] [place] [address] [address] Brady SandersPotassium [Moles/Vol]3.3 mmol/LCritically low3.5-5.1The [facility] HospitalComment on above:Performed By: #### LIPMaykel JORDON, CMP #### [facility] [address] [address] [address] Brady SandersProtein [Mass/Vol]7.2 g/dLNormal6.4-8.2[facility] Comment on above:Performed By: #### LIPJORDON Brar, CMP #### [facility] [address] [place] [address] Dr. Brady SandersSodium [Moles/Vol]140 mmol/PLyphox225-556Npv [facility] Comment on above:Performed By: #### LIPJORDON Brar, CMP #### [facility] [address] [place] [address] Dr. Brady SandersUrea nitrogen [Mass/Vol]10.0 mg/dLNormal7.0-18.0The [facility] HospitalComment on above:Performed By: #### ROSCOE JORDON, CMP #### [facility] [address] [place] [address] Dr. Brady SandersUrea nitrogen/Creatinine [Mass ratio]12.7 mg/mgNormalThe [facility] HospitalComment on above:Performed By: #### LIPJORDON Brar, CMP #### [facility] [address] [place] [address] Dr. Brady SandersNM HEPATOBILIARY SCAN W EFon 39-63-6489OF HEPATOBILIARY SCAN W EF HIDA SCAN WITH GALLBLADDER EJECTION FRACTION HISTORY: Abdominal Pain. COMPARISON: Ultrasound 07/11/2022. METHOD: Following IV injection of 5. mCi of qhdxerhznm-42l-Bwmuwonw, anterior imaging of the abdomen was acquired [...] Electronically authenticated by: KIM JARRETT Date: 2022-07-24 09:14NoFairfield Medical CenterUS SINGLE QUAD RT UPPERon 91-26-7527OC SINGLE QUAD RT UPPER EXAMINATION: US SINGLE [...] Electronically authenticated by: MIKAYLA COVINGTON Date: 2022-07-11 11:55[facility] HospitalGLYCOHEMOGLOBIN A1Con 24-57-1809PYN RECOMMENDATIONSEE BELOW NormalThe [facility] HospitalComuniversity of michigan health on above:Result Comment: ADA RECOMMENDED LIMIT 4.0 - 6.0 ADA THERAPEUTIC TARGET < 7.0 ACTION SUGGESTED > 7.0Performed By: #### A1C #### [facility] [address] [place] [address] [address] Brady SandersGlucose [Mass/Vol]143 mg/dLSamaritan HospitalComment on above:Performed By: #### A1C #### [facility] [address] [place], [place] [address] Dr. Brady SandersHbA1c (Bld) [Mass fraction]6.6 %Critically high4.5-6.2The [facility] HospitalComment on above:Performed By: #### A1C #### [facility] [address] [address] [address] Brady BarraganVID + FLU Quick Testingon 20-02-3736OORY-CoV-2 (COVID-19) RNA ADELINA+probe Ql (Unsp spec)PositiveNortPottstown Hospital Overlay.tv Other COVID + FLU Quick TestingNegativeNort KVK TEAM Other CBC AUTO DIFFon 84-02-4966FKDB #0.0 103/ulNormal 0.0-0.1The [facility] HospitalComment on above:Performed By: #### CBC #### [facility] [address] [place] [address] Dr. Brady SandersBasophils/100 WBC (Bld)0.5 %Normal0.2-2.0[facility] Comment on above:Performed By: #### CBC #### [facility] [address] [place] [address] Dr. Brady Farrar #0.1 103/ulNormal0.0-0.7The [facility] HospitalComment on above: Performed By: #### CBC #### [facility] [address] [place] [address] Dr. Brady Summersosinophils/100 WBC (Bld)1.8 %Normal0.9-7.0[facility] Comment on above:Performed By: #### CBC #### [facility] [address] [place] [address] Dr. Brady Summersrythrocyte distribution width (RBC) [Ratio]13.5 %Ylvbls96.0-15.0 The [facility] HospitalComment on above:Performed By: #### CBC #### [facility] [address] [place] [address] Dr. Brady SandersHematocrit (Bld) [Volume fraction]46.5 %Hcoxzq89.0-54.0The [facility] HospitalComment on above:Performed By: #### CBC #### [facility] [address] [place] [address] Dr. Brady SandersHemoglobin (Bld) [Mass/Vol]15.6 g/oNHdfbyc95.0-18.0The [facility] on above:Performed By: #### CBC #### [facility] [address] [place] [address] Dr. Brady James #0.02 10e3/ulNormal0.00-0.03The [facility] HospitalComment on above:Performed By: #### CBC #### [facility] [address] [place] [address] Dr. Brady James %0.3 %Normal0.0-0.5The [facility] on above: Performed By: #### CBC #### [facility] [address] [place] [address] Dr. Brady Sofia #1.8 103/ulNormal1.2-3.8The [facility] HospitalComment on above:Performed By: #### CBC #### [facility] [address] [place] [address] Dr. Brady Renehocytes/100 WBC (Bld)22.3 %Eakmwu67.5-60.0The [facility] HospitalComun[facility] on above:Performed By: #### CBC #### [facility] [address] [place] [address] Dr. Brady ValverdeUAL DIFF REQNONormalThe [facility] HospitalComment on above: Performed By: #### CBC #### [facility] [address] [place] [address] Dr. Brady Solis (RBC) [Entitic mass]28.0 hvQoddwl99.9-34.0The [facility] HospitalComment on above:Performed By: #### CBC #### [facility] [address] [place] [address] Dr. Brady Solis (RBC) [Mass/Vol]33.5 g/gFZcbpmg14.9-35.2The [facility] HospitalComment on above:Performed By: #### CBC #### [facility] [address] [address] [address] Brady SolisV (RBC) [Entitic vol]83.3 xQEotxbr95.0-94.0The [facility] HospitalComment on above:Performed By: #### CBC #### [facility] [address] [place] [address] Dr. Brady Chung #0.5 103/ulNormal0.3-0.8The [facility] HospitalComment on above:Performed By: #### CBC #### [facility] [address] [place] [address] Dr. Brady Lermaocytes/100 WBC (Bld)6.1 %Normal1.7-12.0The [facility] on above:Performed By: #### CBC #### [facility] [address] [place] [address] Dr. Brady Beth #5.4 103/ulNormal1.4-6.5The [facility] HospitalComment on above:Performed By: #### CBC #### [facility] [address] [place] [address] Dr. Brady Livingstonutrophils/100 WBC (Bld)69.0 %Ftyptj52.0-75.0The [facility] HospitalComment on above:Performed By: #### CBC #### [facility] [address] [place] [address] Dr. Brady Olivalet mean volume (Bld) [Entitic vol]10.3 fLNormal9.5-13.5The [facility] on above:Performed By: #### CBC #### [facility] [address] [place] [address] Dr. Brady SandersPLT230 103/wkRybhpv061-387Wux Grant HospitalComment on above: Performed By: #### CBC #### [facility] [address] [place] [address] Dr. Brady SandersRBC5.58 106/ulNormal4.70-6.10The [facility] HospitalComment on above:Performed By: #### CBC #### [facility] [address] [address] [address] Brady SandersWBC7.9 103/ulNormal4.0-11.0The [facility]Com[facility] on above: Performed By: #### CBC #### [facility] [address] [address] [address] Brady SandersGLYCOHEMOGLOBIN A1Con 82-17-6068RCF RECOMMENDATIONSEE BELOWCleveland Clinic Euclid HospitalComuniversity of mich[facility] health on above:Result Comment: ADA RECOMMENDED LIMIT 4.0 - 6.0 ADA THERAPEUTIC TARGET < 7.0 ACTION SUGGESTED > 7.0Performed By: #### A1C #### [facility] [address] [place] [address] Dr. Brady SandersGlucose [Mass/Vol]200 mg/dLNoFairfield Medical CenterComment on above:Performed By: #### A1C #### [facility] [address] [place] [address] Dr. Brady SandersHbA1c (Bld) [Mass fraction]8.6 %Critically high4.5-6.2[facility] on above:Performed By: #### A1C #### [facility] [address] [place] [address] Dr. Brady SandersLIPID PROFILEon 05-28-6710IGMZ-HDL RATIO NORMSEE [facility] on above:Result Comment: 3.3 - 4.4 LOW RISK 4.4 - 7.1 AVERAGE RISK 7.1 - 11.0 MODERATE RISK >11.0 HIGH RISKPerformed By: #### LIPA JORDON, CMP #### [facility] [address] [address] [address] Brady SandersCholesterol [Mass/Vol]136 mg/dLNormal<=200The [facility] Comment on above:Performed By: #### LIPA, JORDON, CMP #### [facility] [address] [address] [address] Brady SandersCholesterol in HDL [Mass/Vol]26 mg/dLCritically yti46-57Sxw [facility] on above:Performed By: #### LIPAJORDON, CMP #### [facility] [address] [address] [address] Brady SandersCholesterol in LDL [Mass/Vol]77.2 mg/dLChillicothe Hospital on above:Performed By: #### LIPA JORDON, CMP #### [facility] [address] [address] [address] Brady Addison.total/Cholesterol in HDL [Mass ratio]5.2 {ratio} NormalSt. Charles [facility] on above:Performed By: #### LIPMaykel JORDON, CMP #### [facility] [address] [address] [address] Brady Mccall NORMAL> or = 60 mg/dl - LOW CARDIOVASCULAR RISK <40 mg/dl - HIGH CARDIOVASCULAR RISKNoFairfield Medical CenterComuniversity of [facility] health on above:Performed By: #### JORDON MALHOTRA, CMP #### [facility] [address] [place] [address] Dr. Brady Reyes CALC NORMALSEE BELOWSamaritan HospitalComuniversity of michigan health on above:Result Comment: <100 mg/dl OPTIMAL 100 - 129 mg/dl NEAR OR ABOVE OPTIMAL 130 - 159 mg/dl BORDERLINE HIGH 160 - 189 mg/dl HIGH >190 mg/dl VERY HIGH Performed By: #### LIPJORDON Brar, CMP #### [facility] [address] [address] [address] Brady SandersTriglyceride [Mass/Vol]164 mg/dLCritically high<=150The [facility] on above:Performed By: #### LIPA JORDON, CMP #### [facility] [address] [address] [address] Brady SandersVLDL CALC32.8 mg/dLNoFairfield Medical CenterComuniversity of mich[facility] health on above: Performed By: #### LIPA, JORDON, CMP #### [facility] [address] [address] [address] Brady SandersMICROALBUMIN, RICHFORD URon 40-09-1747vZPI<1.3Normal<=30.0The [facility] HospitalComment on above:Performed By: #### LIPA, JORDON, CMP #### [facility] [address] [place] [address] Dr. Brady Gutierrez 14(COMP METB)on 55-22-0886Rdxtfnz [Mass/Vol]3.8 g/dLNormal 3.4-5.0The [facility] HospitalComment on above:Performed By: #### LIPA, JORDON, CMP #### [facility] [address] [place] [address] Dr. Brady SandersAlbumin/Globulin [Mass ratio]1.0 {ratio}NormalThe [facility] HospitalComment on above:Performed By: #### LIPA, JORDON, CMP #### [facility] [address] [place] [address] Dr. Brady Contreras [Catalytic activity/Vol]102 U/OJxxwhc46-489Cpf [facility] HospitalComment on above:Performed By: #### LIPA JORDON, CMP #### [facility] [address] [place] [address] Dr. Brady Sheehan [Catalytic activity/Vol]41 U/YFyrgih06-89Fwd [facility] HospitalComment on above:Performed By: #### KAVYAA, JORDON, CMP #### [facility] [address] [place] [address] Dr. Brady Perdue gap [Moles/Vol]14.7 mmol/LNormalThe [facility] Comment on above:Performed By: #### LIPA, JORDON, CMP #### [facility] [address] [place] [address] Dr. Brady SandersAST [Catalytic activity/Vol]24 U/BFptytc86-86Ziq [facility] HospitalComment on above:Performed By: #### LIPA, JORDON, CMP #### [facility] [address] [place] [address] Dr. Brady SandersBilirubin [Mass/Vol]0.4 mg/dLNormal0.2-1.0The [facility] Comment on above:Performed By: #### LIPA, JORDON, CMP #### [facility] [address] [address] [address] Brady SandersCalcium [Mass/Vol]8.8 mg/dLNormal8.5-10.1The [facility] Comment on above:Performed By: #### JORDON MALHOTRA, CMP #### [facility] [address] [address] [address] Brady SandersChloride [Moles/Vol]99 mmol/VGpofrn33-382Rqq [facility] Comment on above:Performed By: #### JORDON MALHOTRA, CMP #### [facility] [address] [address] [address] Brady SandersCO2 [Moles/Vol]26.8 mmol/XEfzfja47.0-32.0The [facility] Comment on above:Performed By: #### JORDON MALHOTRA, CMP #### [facility] [address] [address] [address] Brady SandersCreatinine [Mass/Vol]1.00 mg/dLNormal0.70-1.30The [facility] HospitalComment on above:Performed By: #### JORDON MALHOTRA, CMP #### [facility] [address] [place] [address] Dr. Brady SummersGFR-AF FILIPINO>60Normal>=60The [facility] HospitalComment on above:Performed By: #### JORDON MALHOTRA, CMP #### [facility] [address] [address] [address] Brady Wilson-NON AF FILIPINO>60Normal>=60The [facility] HospitalComment on above:Performed By: #### JORDON MALHOTRA, CMP #### [facility] [address] [address] [address] Brady SandersGlobulin (S) [Mass/Vol]3.7 g/dLNormalThe [facility] HospitalComment on above:Performed By: #### LIPJORDON Brar, CMP #### [facility] [address] [address] [address] Brady SandersGlucose [Mass/Vol]317 mg/dLCritically mfjj13-204Ckq [facility] HospitalComment on above:Performed By: #### JORDON MALHOTRA, CMP #### [facility] [address] [address] [address] Brady SandersPotassium [Moles/Vol]3.5 mmol/LNormal3.5-5.1The [facility] Comment on above:Performed By: #### JORDON MALHOTRA, CMP #### [facility] [address] [place] [address] Dr. Brady SandersProtein [Mass/Vol]7.5 g/dLNormal6.4-8.2[facility] Comment on above:Performed By: #### JORDON MALHOTRA, CMP #### [facility] [address] [place] [address] Dr. Brady SandersSodium [Moles/Vol]137 mmol/OLhhjzl645-666Ebm [facility] Comment on above:Performed By: #### JORDON MALHOTRA, CMP #### [facility] [address] [place] [address] Dr. Brady SandersUrea nitrogen [Mass/Vol]11.0 mg/dLNormal7.0-18.0The [facility] HospitalComment on above:Performed By: #### JORDON MALHOTRA, CMP #### [facility] [address] [place] [address] Dr. Brady SandersUrea nitrogen/Creatinine [Mass ratio]11.0 mg/mgNormalThe [facility] HospitalComment on above:Performed By: #### JORDON MALHOTRA, CMP #### [facility] [address] [place] [address] Dr. Brady SandersUrinalysis - AUTOMATEDon 65-36-0806Lcnlwdwyim (U)clearNoSourceYourCity Other Bilirubin Ql (U)NegativeCharitybuzz Other Color (U)medium tellowNuniversity health lakewood [facility] KVK TEAM Other Glucose Ql (U)>1000NoSourceYourCity Other Hemoglobin Ql (U)traceCharitybuzz Other Ketones Ql (U)NegativeCharitybuzz Other Leukocyte esterase Test strip Ql (U)traceCharitybuzz Other Nitrite Ql (U)Shoop Other pH (U)5.5 [pH][employer] Other Protein Ql (U)NegativeCharitybuzz Other Specific gravity (U) [Rel density]1.015Nowashington [facility] medical center KVK TEAM Other Urobilinogen (U) [Mass/Vol]0.2 mg/dLCarmine KVK TEAM Other Urinalysis - AUTOMATEDSourceYourCity Other Urine Cultureon 99-35-6364Vhlkxqrc identified Cx Nom (U)Reason for Exam Dysuria Urine >100,000 colonies/ml mixed bacterial skin contaminants 2 Days PERFORMED BY: [address] [id number] PATHOLOGIST CASING TIER TIA CORDOVA M.D.L[facility] City HospitalComment on above: Performed By: #### CUU #### [place] [address] USABacteria identified Cx Nom (U)[employer] Other Quick Fluon 90-12-8389YAGZR Ab CF (S) [Titer]Negative [employer] Other FLUBV Ab CF (S) [Titer]NegativeCharitybuzz Other Vital Signs Date TimeVital SignValuePerforming XcwmyehsvWtowthmy45-82-7616 17:30-0500 Diastolic blood bkcnywwr97 mm[Hg]Jenn Finney BOWL SANDER Work Phone: [facility]11-09-2025 17:30-0500Heart rate74 /minJenn Barry APRN - BOWL SANDER Work Phone: [facility]11-09-2025 17:30-0500 Respiratory rate16 /minJenn Barry APRN - BOWL SANDER Work Phone: [facility]11-09-2025 17:30-3917EvR7% (BldA) [Mass fraction]95 %Jenn Barry COMBO WELDER - BOWL SANDER Work Phone: [facility]11-09-2025 17:30-0500Systolic blood escxklum262 mm[Hg]Jenn Barry APRN - BOWL SANDER Work Phone: [facility]11-09-2025 14:51-0500Body mymjiu411.4 cmLmark Barry COMBO WELDER - BOWL SANDER Work Phone: [facility]11-09-2025 14:51-0500Body mass index (BMI) [Ratio]40.37 kg/m2Jenn Barry APRN - BOWL SANDER Work Phone: [facility]11-09-2025 14:51-0500Body vvobtqghrxh98.1 [degF]Jenn Barry COMBO WELDER - BOWL SANDER Work Phone: [facility]11-09-2025 14:51-0500Body bvlrmy723.8 kgJenn Barry APRN - BOWL SANDER Work Phone: [facility]11-04-2025 08:31-0500Body jnjovougnwx91.1 [degF]Yves Jose MD Work Phone: [facility] HospitalTaxon BiosciencesInova Loudoun HospitalRvkoyy03-05-5524 08:31-0500Diastolic blood higidylu87 mm[Hg]Yves Jose MD Work Phone: [facility] TaamkruInova Loudoun HospitalComment on above:pt aware of BP and states he wants will monitor at bgut64-42-4114 08:31-0500Respiratory rate 20 /minThchucho Jose MD Work Phone: [employer]11-04-2025 08:31-5446TlX0% (BldA) [Mass fraction]93 %Yves Jose MD Work Phone: [employer]11-04-2025 08:31-0500Systolic blood slffaseb955 mm[Hg]Yves Jose MD Work Phone: [facility] HospitalComment on above:pt aware of BP and states he wants will monitor at wgrw89-52-2405 07:40-0500Body mass index (BMI) [Ratio]40.37 kg/k1McqrwYves Jose MD Work Phone: [employer]11-04-2025 07:40-0500Body .8 kgYves Jose MD Work Phone: [employer]11-04-2025 07:40-0500Heart iykw238 /minYves Jose MD Work Phone: [employer]10-29-2025 14:40-0400Body mymluh367.42 Adarshisa Asha BOWL SANDER-C Work Phone: [facility]10-29-2025 14:40-0400 Body mass index (BMI) [Ratio]40.4 kg/m2Jenn Barry BOWL SANDER-C Work Phone: [facility]10-29-2025 14:40-0400 Body ijwmhktffyy19.1 [degF]Jenn Barry BOWL SANDER-C Work Phone: [facility]10-29-2025 14:40-0400 Body .02 kgLuannesa Asha BOWL SANDER-C Work Phone: [facility]10-29-2025 14:40-0400 Diastolic blood ojdugmkv99 mm[Hg]Jenn Aichholz BOWL SANDER-C Work Phone: [facility]10-29-2025 14:40-0400 Heart rate94 /Ruben Rinaldiholz BOWL SANDER-C Work Phone: [facility]10-29-2025 14:40-0400 Respiratory rate16 /Ruben Rinaldiholz BOWL SANDER-C Work Phone: [facility]10-29-2025 14:40-0400 SaO2% (BldA) [Mass fraction]97 %Jenn Rinaldiholz BOWL SANDER-C Work Phone: [facility]10-29-2025 14:40-0400 Systolic blood ingoxbrj976 mm[Hg]Jenn Yez BOWL SANDER-C Work Phone: [facility]08-07-2025 10:18-0400 Heart rate62 /Irina Lovell MD Work Phone: [facility]08-07-2025 10:18-0400 Respiratory rate11 /Irina Lovell MD Work Phone: [facility]08-07-2025 10:18-7677YqA5% (BldA) [Mass fraction]93 %Morgan Lovell MD Work Phone: [facility]08-07-2025 10:15-0400Diastolic blood mm[Hg]Morgan Lovell MD Work Phone: [facility]08-07-2025 10:15-0400Systolic blood csbaabgo863 mm[Hg]Morgan Lovell MD Work Phone: [facility]08-07-2025 09:45-0400Body jasbhuckjhb15.01 [degF]Morgan Lovell MD Work Phone: [facility]07-29-2025 11:06-0400Body bntabb082.4 cmMorgan Lovell MD Work Phone: [facility]07-29-2025 11:06-0400Body mass index (BMI) [Ratio]41.16 kg/v2PluhdiiMorgan Lovell MD Work Phone: [facility]07-29-2025 11:06-0400Body uqpzbl627.52 kgMorgan Lovell MD Work Phone: [facility]07-09-2025 08:36-0400Body mass index (BMI) [Ratio]41.16 kg/m2Jenn Barry BOWL SANDER Work Phone: [facility] HospitalMlfwqfikhx49-07-3561 08:36-0400Body temperature 98.1 [degF]Jenn Barry BOWL SANDER Work Phone: [facility] HospitalXkularyebb86-42-0391 08:36-0400Body mkmlpa080.52 kgJenn Barry BOWL SANDER Work Phone: [facility] HospitalEswmzlempm18-69-9001 08:36-0400Diastolic blood mm[Hg]Jenn Asha BOWL SANDER Work Phone: [facility] HospitalRqiaqyeuqz49-24-5878 08:36-0400Heart rate90 /min Jenn Asha BOWL SANDER Work Phone: [facility] HospitalBtuvyhrrej88-53-2851 08:36-0400Respiratory rate20 /minJenn Barry BOWL SANDER Work Phone: [facility] HospitalMpoypdkoro58-78-2893 08:36-9266FjC5% (BldA) [Mass fraction]94 %Jenn Asha BOWL SANDER Work Phone: [facility] HospitalSpeszwrwqk00-69-3765 08:36-0400Systolic blood wuhzifbs97 mm[Hg]Jenn Asha BOWL SANDER Work Phone: [facility] HospitalWqvximorai16-53-6389 09:59-0400Diastolic blood eaqpokxt78 mm[Hg]Jenn Asha BOWL SANDER Work Phone: [facility] HospitalYcpblsmtzr62-02-3247 09:59-0400Systolic blood mm[Hg]Jenn Barry BOWL SANDER Work Phone: [facility] HospitalPrwpwhqiax20-90-3733 09:25-0400Body mass index (BMI) [Ratio]41.59 kg/m2Jenn Barry BOWL SANDER Work Phone: [facility] HospitalTnhiaplrnz11-19-0895 09:25-0400Body temperature 97.81 [degF]Jenn Barry BOWL SANDER Work Phone: [facility] HospitalXipvlyhtyv11-22-9614 09:25-0400Body .97 kgJenn Barry BOWL SANDER Work Phone: [facility] HospitalQxpyydapoa97-14-3265 09:25-0400Heart rate94 /min Jenn Barry BOWL SANDER Work Phone: [facility] HospitalIucmnczbjx40-92-0774 09:25-0400Respiratory rate18 /minLisa Barry BOWL SANDER Work Phone: [facility] HospitalLxyghqyzig56-01-4661 09:25-2812VvF8% (BldA) [Mass fraction]96 %Jenn Barry BOWL SANDER Work Phone: [facility] HospitalQevamyaldi14-74-4480 09:07-0400Body mass index (BMI) [Ratio]42.35 kg/f5Xxjzryjwmalik Palomarestrick BOWL SANDER Work Phone: [facility] HospitalLwdxotlfuv92-28-7700 09:07-0400Body temperature 97.3 [degF]Anna White BOWL SANDER Work Phone: [facility] HospitalPlrgewwkog44-04-7156 09:07-0400Body .6 kgBrmalik White BOWL SANDER Work Phone: [facility] HospitalRkglstymdz84-02-3442 09:07-0400Diastolic blood mm[Hg]Anna White BOWL SANDER Work Phone: [facility] HospitalTcvkidbcye34-42-0656 09:07-0400Heart rate85 /min Anna Palomarestrick BOWL SANDER Work Phone: [facility] HospitalNvoxneydbo56-83-6531 09:07-5246MlH7% (BldA) [Mass fraction]95 %Anna Rojaspatrick BOWL SANDER Work Phone: [facility]OSaint [facility] CenterBgsbnsbfid75-32-1447 09:07-0400Systolic blood anumpfnd222 mm[Hg]Anna Palomarestrick BOWL SANDER Work Phone: [facility] HospitalMivfzhcynm65-17-3027 14:10-0400Heart rate67 /min Carlito Leung DO Work Phone: [facility] [employer]07-15-2024 14:10-0400 Respiratory rate14 /minDkaiian Leung DO Work Phone: [facility] HOSPITALBomberbotIIYIGI99-14-3981 14:10-0115DzD8% (BldA) [Mass fraction]94 %Carlito Leung DO Work Phone: [facility] [employer] [facility] HOSPITALBomberbotAPKTUA01-78-7292 14:00-0400Diastolic blood jhbvazup47 mm[Hg]Carlito Leung DO Work Phone: [facility]ALL[facility]OS[facility]ITALBomberbotIQOHTX15-98-2798 14:00-0400Systolic blood oosdnoid509 mm[Hg]Carlito Leung DO Work Phone: [facility] HOS[facility]ITALBomberbotYAOBJQ30-57-1775 13:15-0400Body lzsqsyqyhvt24.11 [degF]Carlito Leung DO Work Phone: [facility] [employer]07-09-2024 13:06-0400Body cqulyn336.4 cmDyclarice Leung DO Work Phone: [facility] [employer] [facility] HOSPITALBomberbotNSVHAU84-43-9372 13:06-0400Body mass index (BMI) [Ratio]43.54 kg/c1SdjvpCarlito Leung DO Work Phone: [facility] [employer] [facility] H[facility]ITALBomberbotOJYQRL53-65-8637 13:06-0400Body abxlbu651.69 kgDyclarice Leung DO Work Phone: [facility]12-21-2022 18:15-0500Body iuzrbd721.88 Jojo Cannon Other [employer] Other 12-21-2022 18:15-0500Body mass index (BMI) [Ratio] 47.46 kg/t2Paqvndvalerie Cannon Other [employer] Other 12-21-2022 18:15-0500Body dhziqkqwqvb23 [degF]Mamie Sweetmond Other [employer] Other 12-21-2022 18:15-0500Body adtdsj550.76 kgMamie Cannon Other [employer] Other 12-21-2022 18:15-0500Respiratory rate18 /minMamie Cannon Other [employer] Other 12-21-2022 18:15-2794FkW6% (BldA) [Mass fraction]94 % Mamie Cannon Other [employer] Other 07-20-2022 10:30-0400Body .88 Jojo Cannon Other [employer] Other 07-20-2022 10:30-0400Body mass index (BMI) [Ratio] 46.11 kg/b2Auzugjvalerie Cannon Other [employer] Other 07-20-2022 10:30-0400Body .1 [degF]Mamie Sweetmond Other [employer] Other 07-20-2022 10:30-0400Body jseoqf868.22 kgMamie Cannon Other [employer] Other 07-20-2022 10:30-0400Diastolic blood mm[Hg] Mamie Cannon Other [employer] Other 07-20-2022 10:30-0400Respiratory rate20 /minMamie Cannon Other [employer] Other 07-20-2022 10:30-1794LkS0% (BldA) [Mass fraction]98 % Mamie Sweetmond Other [employer] Other 07-20-2022 10:30-0400Systolic blood mm[Hg] Mamie Kassandra Other [employer] Other 2022 10:00-0500Body zzxusp877.88 cmAjuancho Dimas Other [employer]Your[employer] Other 2022 10:00-0500Body mass index (BMI) [Ratio] 49.28 kg/n9YxfmjAlexandra Dimas Other [employer] Other 2022 10:00-0500Body pwzzuweexst13.4 [degF]Alexandra Dimas Other [employer] Other 2022 10:00-0500Body ezxkkl020.84 kgAlexandra Dimas Other [employer] Other 2022 10:00-0500Diastolic blood sthqtlyd25 mm[Hg] Alexandra Dimas Other [facility] Other 2022 10:00-0500Respiratory rate18 /minAmbjennifer Dimas Other [employer] Other 2022 10:00-8148VfK9% (BldA) [Mass fraction]96 % Alexandra Dimas Other [employer] Other 2022 10:00-0500Systolic blood nmejlssr990 mm[Hg] Alexandra Wing Other [employer] Other 11-29-2021 10:00-0500Body rpuhhx231.88 cmAmbjennifer Gill Other [employer] Other 11-29-2021 10:00-0500Body mass index (BMI) [Ratio] 48.82 kg/b6TllcgAlexandra Gill Other [employer] Other 11-29-2021 10:00-0500Body cmmwqawkhxd36.4 [degF]Alexandra Hannadelfinasusan Other [employer] Other 11-29-2021 10:00-0500Body mhyeff787.3 kgAlexandra Gill Other [employer] Other 11-29-2021 10:00-8475HwV3% (BldA) [Mass fraction]95 % Alexandra Gill Other [employer] Other Encounters Encounter DateEncounter TypeCare ProviderFacilityStart: 01-30-2025 End: 53-32-4706Trtrxubbk department patient visitJENN Davison [facility] HospitalComment on above:Acute maxillary sinusitis, recurrence not specified (Primary Dx); Acute cough; WheezingStart: 01-25-2025 End: 76-51-3910Cbmfxewfd department patient visitYves Jose MD Work Phone: [facility] DepartmentComment on above: Bronchitis (Primary Dx); Acute coughStart: 01-20-2025 End: 49-32-3184wqdrmoolmlXXGV J. AICKyaraCarleylincoln Fleming HospitalStart: 01-20-2025 End: 79-67-7906Spbrrgifdj hospital visit by physicianCentral [facility] LABComment on above:ArrivedStart: 01-19-2025 End: 30-44-8013tqlaozxekmGmgx J Aichholz BOWL SANDER-C Work Phone: [facility] ClydeStart: 01-19-2025 End: 76-53-0665Gvgjcsc encounter procedureJenn Barry BOWL SANDER-C-[facility] Work Phone: Start: 11-15-2024 End: 57-21-4907Xfhnlshml Result EncounterLisa Barry BOWL SANDER Work Phone: [facility] External Department UnsolicitedStart: 11-15-2024 End: 49-48-4293Fuozigncd Result EncounterLisa Barry BOWL SANDER Work Phone: [facility] External Department UnsolicitedStart: 11-15-2024 End: 94-27-3220sgmxdaxibiQRPU J. AICKyaraJose Alberto Fleming HospitalStart: 11-15-2024 End: 23-12-2256Pjhuycrniy hospital visit by physicianCentral [facility] Schedule [facility] LABComment on above:ArrivedStart: 10-28-2024 End: 77-30-0331Egnhjqyik Result EncounterGeneric External Data ProviderNOMS External Department UnsolicitedStart: 10-28-2024 End: 15-20-0034Pkeyhohef Result EncounterGeneric External Data ProviderNOMS External Department UnsolicitedStart: 10-28-2024 End: 71-36-3064hgxzuqhxfsWKFKGUSEstella Gamino Sam HospitalStart: 10-28-2024 End: 23-32-7773Gwqytzoola hospital visit by physicianMorgan Lovell MD Work Phone: m[facility] EndoscopyComment on above:Positive colorectal cancer screening using Cologuard testStart: 10-05-2024 End: 30-43-1238hgmlzxsdauHRFXK [facility] HospitalStart: 10-05-2024 Encounter for other preprocedural examinationRegency Hospital [facility] Start: 10-05-2024 End: 25-08-2463Kjjatop encounter statusMthz [facility] Work Phone: Start: 10-05-2024 End: 63-59-3102Ijwszervfv hospital visit by physicianMt Ekg Schedule[facility] Comment on above:Pre-op testingStart: 09-29-2024 End: 82-36-3912Xwimnc flowsheetLisa Aichholz BOWL SANDER Work Phone: n[facility] FMStart: 09-29-2024 End: 59-62-2878Vcyepq flowsheetLisa Aichholz BOWL SANDER Work Phone: noms CW FMStart: 09-29-2024 End: 42-64-9491Wwbvlq outpatient visit 25 minutesLisa Kristopherhholz BOWL SANDER Work Phone: noms [facility] FMComment on above:Type 2 diabetes mellitus without [...] sciatica; Pain of right heelStart: 09-29-2024 End: 02-64-9284bqecmulzwcXMTD AICHHOLZNot AvailableStart: 09-02-2024 End: 67-54-8907GboeumGdro Kristopherkyaraewa BOWL SANDER Work Phone: noms CWM FMComment on above:Dyslipidemia (Primary Dx) DyslipidemiaStart: 09-01-2024 End: 43-24-7608Uijoqmvej Result EncounterJenn Rinaldiewa BOWL SANDER Work Phone: noms External Department UnsolicitedStart: 09-01-2024 End: 58-94-0538Hhwskcxdn Result EncounterLisa Rinaldiewa BOWL SANDER Work Phone: noms External Department UnsolicitedStart: 09-01-2024 End: 99-44-9751yfhhdqoljdHZLSEvangelista Light Fleming HospitalStart: 09-01-2024 End: 30-69-2011Dhnfvupfyp hospital visit by Chica Finney BOWL SANDER Work Phone: [facility] LABStart: 06-29-2024 End: 46-20-6269Hlsyfj flowssusanJenn Barry BOWL SANDER Work Phone: noms CWM FMStart: 06-29-2024 End: 80-82-3711Ejooaq flowssusanJenn Summerskyaraewa BOWL SANDER Work Phone: noms CWM FMStart: 06-29-2024 End: 10-90-8204mygmbcwihvCHKS AICHHOLZNot AvailableStart: 06-29-2024 End: 22-79-5791Pkacdk outpatient visit 25 minutesJenn Barry BOWL SANDER Work Phone: NONZ CWM FMComment on above:Obstructive sleep apnea syndrome (Primary Dx); Morbid (severe) obesity due to excess calories (CMS/HCC); Body mass index (BMI) 40.0-44.9, adult (CMS/HCC); Essential hypertension (CMS/HCC); Type 2 diabetes mellitus without complication, without long-term current use of insulin; Depression with anxiety; Dyslipidemia (CMS/HCC); Hyperuricemia; Screening for prostate cancer; JAN (generalized anxiety disorder) ([facility]/HCC); Acute bilateral low back pain with right-sided sciaticaStart: 05-06-2024 End: 21-21-4656CjxdzwBkszcppq Fitzpatrick BOWL SANDER Work Phone: noms CWM FMComment on above:Essential hypertension (CMS/HCC)Start: 03-25-2024 End: 37-09-9614KkhdvaTgqlphywParas White BOWL SANDER Work Phone: noms CWM FMComment on above:Essential hypertension (CMS/HCC)Start: 03-23-2024 End: 53-82-9979JfhigyXpmqpndcParas White BOWL SANDER Work Phone: noms CWM FMComment on above:Type 2 diabetes mellitus without complication, without long-term current use of insulin (CMS/HCC); JAN (generalized anxiety disorder) ([facility]/HCC)Start: 03-22-2024 End: 70-29-2794txqujaxohlIxzxrjl Vytautas Giedrarobert MDFacility:[facility] [place] Start: 03-08-2024 End: 51-30-4649LvwtuoKaekhyfxNelida White BOWL SANDER Work Phone: noms CWM FMComment on above:Essential hypertension ([facility]/HCC)Type 2 diabetes mellitus without complication, without long-term current use of insulin ([facility]/HCC); JAN (generalized anxiety disorder) ([facility]/HCC)Start: 03-08-2024 End: 53-10-0571totcxccdwiJjtmifs Vytautas Giedraitis MDFacility:[facility] [place] Start: 02-23-2024 End: 94-36-2807zxllunlcrgZnjtthd Vytautas Giedraitis MDFacility:[facility] [place] Start: 01-20-2024 End: 56-23-0394FfbvtoFrtkElodia WATTS CWM FMComment on above:Type 2 diabetes mellitus without complication, without long-term current use of insulin ([facility]/HCC)Start: 01-05-2024 End: 41-43-1122Invjup Xavier White BOWL SANDER Work Phone: noms CWM FMComment on above:Type 2 diabetes mellitus without complication, without long-term current use of insulin (CMS/HCC) (P rimary Dx)Start: 12-30-2023 End: 30-00-5801Ockmua flowsEmy Palomarestrick BOWL SANDER Work Phone: noms CWM FMStart: 12-30-2023 End: 96-25-0962Dwzcws flowsheetAnna Palomarestrick BOWL SANDER Work Phone: noms CWM FMStart: 12-30-2023 End: 36-07-5981Byjloa outpatient visit 15 minutesBrmalik Rojaspatrick BOWL SANDER Work Phone: noms CWM FMComment on above:Type 2 diabetes mellitus without complication, without long-term current use of insulin (CMS/HCC) (P rimary Dx); Dyslipidemia (CMS/HCC); Essential hypertension (CMS/HCC); Positive colorectal cancer screening using Cologuard test; Screening for colon cancer; Constipation, unspecified constipation typeStart: 12-30-2023 End: 79-23-5740smaocezfuwJYITXRKW FITLESTRICKNot AvailableStart: 11-03-2023 End: 47-05-7862mxfkswmqjjCwfwmot Vytautas Giedraitis Facility:[facility] Start: 10-06-2023 End: 92-82-8842Udwjexqzus hospital visit by physicianCarlito Leung DO Work Phone: mZ ORComment on above:Post-op pain (Primary Dx) Start: 16-79-3369Pfzwwabybcps stateAnna White BOWL SANDER Work Phone: noms HealthcareStart: 09-22-2023 End: 62-02-7510Vwauirzrx Result EncounterGeneric External Data ProviderNOMS External Department UnsolicitedStart: 09-22-2023 End: 82-81-0586Hgwggziid Result EncounterGeneric External Data ProviderNOMS External Department UnsolicitedStart: 07-24-2023 End: 02-78-0075xxyhsxrgjvDWCCHHChildren's Hospital for Rehabilitationtart: 07-12-2023 End: 78-37-6649Pfisbcxnu Result EncounterGeneric External Data ProviderNOMS External Department UnsolicitedStart: 07-12-2023 End: 90-68-8548Qjedqljof Result EncounterGeneric External Data ProviderNOMS External Department UnsolicitedStart: 07-03-2023 End: 13-97-4968Ziiiepefc Result EncounterSnava Cordoba MD Work Phone: noms External Department UnsolicitedStart: 07-03-2023 End: 28-12-4500Tbpsjwkgw Result EncounterSnava Cordoba MD Work Phone: noms External Department UnsolicitedStart: 06-23-2023 End: 95-48-2227bbftphtgcdWXCNUYOhioHealth Riverside Methodist Hospitaltart: 06-06-2023 End: 37-88-6341Wazuhxwnq Result EncounterSnava Cordoba MD Work Phone: noms External Department UnsolicitedStart: 06-06-2023 End: 31-71-3004Bzddvltaf Result EncounterSnava Cordoba MD Work Phone: noms External Department UnsolicitedStart: 06-05-2023 Patient encounter Lindsey Esteswilberto MORALES Work Phone: noms HealthcareStart: 07-25-2022 End: 94-04-9463pqpvspkddmLK JACK HAY .Facility:C3Xlifd: 07-24-2022 End: 65-24-1532cveatdqamdIJDKFF H FAWWADFacility:M7Rnywp: 07-11-2022 End: 01-33-2359rtzhivyzkoQNYBVF H FAWWADFacility:K4Tdzvy: 06-03-2022 End: 29-72-4041weigyhnprnIOEYOT H FAWWADFacility:V7Khhlv: 03-13-2022 End: 55-35-5354slvoqnclokQecwjf Dymond Other [employer] Other Start: 06-07-5839Gkwctm outpatient visit 15 minutes [facility]deStart: 03-07-2022 End: 08-13-5741gsnyyxisfeOWXKDV Kyara FAWWADFacility:Q6Alykb: 10-10-2021 End: 84-52-4121viadrftpdgKlygaa Dymond Other [facility] Other Start: 54-82-0817Brvgdh outpatient visit 15 minutes Mamie JohnnyG [facility] ClydeStart: 10-10-2021 End: 57-70-6828Xlhmlleh ReferredNP-C Mamie Cannon Work Phone: [facility] CampusStart: 05-10-2021 End: 01-67-5758sgudifriccEzyhl Keller Other [place] [employer] Other Start: 77-66-6468Pvhkcl outpatient visit 15 minutes Alexandra KellerFPG [facility] ClydeStart: 02-19-2021 End: 59-46-4233igxxuulwmgAahzl Marsy Other [facility] Other Start: 45-53-8148Blvpyn outpatient visit 15 minutes Alexandra GintyFPG [facility] Procedures DateProcedureProcedure DetailPerforming ClinicianStart: 68-02-2114Tyrrd metabolic panel calcium totalGeoffrey Senait TALAMANTES Work Phone: Start: 08-16-3756Rsarkooujf exam chest single view Jarocho Marquez MD Work Phone: Start: 00-96-2885OFHHT-19, Delmi Jose MD Work Phone: Start: 79-93-2977Zvkpddznw Darlin Jose MD Work Phone: Start: 93-40-4199Fkzyehwpftugg metabolic panelLisa J. Asha COMBO WELDER - BOWL SANDER Work Phone: Start: 83-10-7018IAE ALTLisa Aichholz BOWL SANDER Work Phone: Start: 72-56-5182OZK ASTLisa Aichholz BOWL SANDER Work Phone: Start: 54-64-2312Rqtnb panelLisa J. Aickyaraholjevon COMBO WELDER - BOWL SANDER Work Phone: Start: 11-07-8870Ralkbuxlnkj aspartate amino ast sgot Jenn Alona. Aicadriane COMBO WELDER - BOWL SANDER Work Phone: Start: 56-24-4763UTGC GLUCOSE,WHOLE BLOODGeneric External Data ProviderStart: 58-57-7936XnevlekvpneFxvoxoy Pruitt MD Work Phone: Start: 09-93-9141Snh routine ecg w/least 12 lds w/i&r [place] Wilver Ramos COMBO WELDER - SALES CONTRACTOR Work Phone: Start: 21-70-8462Ndcldvnyvb glycosylated y2dPvhj Nimcoholz BOWL SANDER Work Phone: Start: 29-75-9267Jsyxtetaemkxu metabolic panelLisa J. Asha COMBO WELDER - BOWL SANDER Work Phone: Start: 07-12-7922Zrqew panelLisa J. Nimcoholjevon COMBO WELDER - BOWL SANDER Work Phone: Start: 26-83-8254IIQY CBC WITH DIFFLisa Asha BOWL SANDER Work Phone: Start: 91-45-0615Obglr albumin quantitativeLisa Alona. Nimcoholjevon COMBO WELDER - BOWL SANDER Work Phone: Start: 79-48-1287Pvrtj dip stick/tablet rgnt auto w/o microscopyLisa Alona. Nimcoholjevon COMBO WELDER - BOWL SANDER Work Phone: Start: 21-74-4605Ddtyyetsbx glycosylated j5iXmff Kristopherhholz BOWL SANDER Work Phone: Start: 02-96-1499HV CHEST 2VGeneric External Data ProviderStart: 72-75-4593GQRX CULTUREGeneric External Data ProviderStart: 07-38-2346CGZ 12-LEADGeneric External Data ProviderStart: 62-40-9331KF LUMBAR SPINE MIN 4VGeneric External Data ProviderStart: 34-36-6046WQ LUMBAR SPINE WO CONSnava Cordoba MD Work Phone: Start: 99-65-8593XT FOREIGN BODY EYESnava Cordoba MD Work Phone: Start: 28-31-1179US LUMBAR SPINE 2 OR 3VSnava Cordoba MD Work Phone: Plan of Treatment DateCare ActivityDetailAuthorStart: 47-89-5910Eemqvcvix for malignant neoplasm of colonBon [facility] CenterMorris Freight and Transport Brokerage [facility] HospitalStart: 47-02-8653Qeiciecha for malignant neoplasm of colonNOMS HealthcareStart: 18-48-0302AQP test (Diabetes, CKD 3-4, OR last GFR 15-59)GFR test (Diabetes, CKD 3-4, OR last GFR 15-59)[facility] HospitalMor[facility]ight and Transport Broker[facility] HospitalStart: 24-75-3724EMV test (Diabetes, CKD 3-4, OR last GFR 15-59)GFR test (Diabetes, CKD 3-4, OR last GFR 15-59)[facility] HospitalMorris Freight and Transport Brokerage [facility] HospitalStart: 11-15-2025 Lipid panelLipidsBon [facility] CenterStart: 19-90-2806FGX test (Diabetes, CKD 3-4, OR last GFR 15-59)GFR test (Diabetes, CKD 3-4, OR last GFR 15-59)[facility] HospitalMorris [facility]ight and Transport Brokerage [facility] HospitalStart: 52-57-1965Btwlw panelLipidsBon [facility] [employer] [facility] Start: 55-98-4386Hpmwj screening for proteinNOMS HealthcareStart: 04-01-2025 Hemoglobin A1c measurementDiabetes: Hemoglobin W0OHENI HealthcareStart: 03-13-2025 End: 29-87-2034Ldwpzpo encounter /21/2025 8:15 PM EST Appointment [facility] [address] [place], [place] [id number] Diagnostic [facility] Sleep CenterComment on above:DiagnosticStart: 88-07-6435Odepkiev screening Diabetes: Retinopathy ScreeningNOKY HealthcareStart: 78-28-2080Kckqfpwocc A1c measurementDiabetes: Hemoglobin K3TSWDP HealthcareStart: 11-25-2024 End: 52-55-9477Umfkqfy encounter xttjonrkh84/04/2025 9:00 AM EDT Office Visit [facility] [address] [place] [address] Jenn Barry, BOWL SANDER [address] [place] [address] [facility] FMStart: 95-05-7801EIHZH-19 Vaccine ( season)COVID-19 Vaccine ( season)NOM HealthcareStart: 11-22-2024 Influenza vaccinationNOKY HealthcareStart: 11-10-2024 End: 29-15-0752Evnoroz encounter ikfwbcsvf88/20/2025 2:00 PM EDT Office Visit [facility] [address] [place] [address] Jenn Barry, BOWL SANDER [address] [place] [address] [facility] FMStart: 11-02-2024 End: 87-20-8062Iytpcno aminotransferase [Enzymatic activity/volume] in Serum or PlasmaALT Lab Routine Dyslipidemia Expected: 11/02/2024 (Approximate), Expires: 09/02/2025NOKY HealthcareComment on above:Expected: 11/02/2024 (Approximate), Expires: 09/02/2025Start: 11-02-2024 End: 84-92-8344Wdpylphbc aminotransferase [Enzymatic activity/volume] in Serum or PlasmaAST Lab Routine Dyslipidemia Expected: 11/02/2024 (Approximate), Expires: 09/02/2025NOMS HealthcareComment on above:Expected: 11/02/2024 (Approximate), Expires: 09/02/2025Start: 10-28-2024 End: 46-73-6084Resrltrfs to same day surgery ldehuv3310/28/2024 8:35 AM EDT - 10/28/2024 9:11 AM EDT [facility] [address] [place] [address] Morgan Lovell MD [address] [place] [address] [address] [place] [address] COLONOSCOPYMZ EndoscopyComment on above:COLONOSCOPYStart: 10-28-2024 End: 55-30-8609Zfhry ca scrn not hi rsk indMWHZ ENDOSCOPYStart: 10-28-2024 Subsequent hospital visit by oanrapkmf51/07/2025 8:35 AM EDT Hospital Encounter [facility] [address] [place] [address] Morgan Lovell MD [address] [place] [address] [address] [place] [address] MW EndoscopyStart: 30-14-4191ImucldxzfBon Secours Mary Immaculate HospitalStart: 09-29-2024 End: 15-28-0934Iaenzom encounter procedureNOMS CWM FMComment on above:Type 2 diabetes mellitus without complication, without long-term current use of insulin (HCC) (Primary Dx); Essential hypertension ; Morbid (severe) obesity due to excess calories ([facility]-HCC); JAN (generalized anxiety disorder) ; Depression with anxiety; Type 2 diabetes mellitus with other specified complication (HCC); Hyperlipidemia, unspecified ; Positive colorectal cancer screening using Cologuard testStart: 09-02-2024 End: 15-30-1775Hwzjc 1996 panel - Serum or PlasmaLipid panel Lab Routine Dyslipidemia Expected: 09/02/2024 (Approximate), Expires: 09/02/2025NOKY Healthcare Work Phone: Comment on above:Expected: 09/02/2024 (Approximate), Expires: 09/02/2025Start: 30-91-7569Qqqro screening for proteinDiabetes: Urine Protein ScreeningMOUNTAINSTAR HEALTHCARE HealthcareStart: 06-29-2024 End: 86-67-8748RSK W Auto Differential panel - BloodCBC and differential Lab Routine Obstructive sleep apnea syndrome Hyperuricemia Expected: 06/29/2024 (Approximate), Expires: 06/29/2025NOKY Healthcare Work Phone: Comment on above:Expected: 06/29/2024 (Approximate), Expires: 06/29/2025Start: 06-29-2024 End: 30-21-8122Szkzxqcqvwutb metabolic 2000 panel - Serum or PlasmaComprehensive metabolic panel Lab Routine Essential hypertension (CMS/HCC) Type 2 diabetes mellituswithout complication, without long-term current use of insulin Dyslipidemia (CMS/HCC) HyperuricemiaExpected: 06/29/2024 (Approximate), Expires: 06/29/2025[facility] HealthcareComment on above:Expected: 06/29/2024 (Approximate), Expires: 06/29/2025Start: 06-29-2024 End: 44-37-7097Vojwg 1996 panel - Serum or PlasmaLipid panel Lab Routine Dyslipidemia (CMS/HCC) Expected: 06/29/2024 (Approximate), Expires: 06/29/2025 NOMS HealthcareComment on above:Expected: 06/29/2024 (Approximate), Expires: 06/29/2025Start: 06-29-2024 End: 49-66-2953Wljwrdtltnoh/Creatinine panel in random UrineMicroalbumin / creatinine, urine ratio Lab Routine Essential hypertension (CMS/HCC) Type 2 diabetesmellitus without complication, without long-term current use of insulin Expected: 06/29/2024 (Approximate), Expires: 06/29/2025[facility] HealthcareComment on above:Expected: 06/29/2024 (Approximate), Expires: 06/29/2025Start: 06-29-2024 End: 39-52-0825Jewisiug specific Ag [Mass/volume] in Serum or PlasmaPSA Lab Routine Screening for prostate cancer Expected: 06/29/2024 (Approximate), Expires: 06/29/2025NOKY HealthcareComment on above:Expected: 06/29/2024 (Approximate), Expires: 06/29/2025Start: 06-29-2024 End: 69-77-2157Eedpz [Mass/volume] in Serum or PlasmaUric acid Lab Routine Hyperuricemia Expected: 06/29/2024 (Approximate), Expires: 06/29/2025NOKY HealthcareComment on above:Expected: 06/29/2024 (Approximate), Expires: 06/29/2025Start: 06-29-2024 End: 60-25-1520Mivzkgvini complete panel - UrineUrinalysis with reflex microscopic (clean catch) Lab Routine Essential hypertension ([facility]) Type 2 diabetes mellitus without complication, without long-term current use of insulin Expected: 06/29/2024 (Approximate), Expires: 06/29/2025[facility] HealthcareComment on above:Expected: 06/29/2024 (Approximate), Expires: 06/29/2025Start: 06-29-2024 End: 69-84-1510Qxfcema encounter lucqfvhml80/08/2025 9:30 AM EDT [facility] [address] [place] [address] Anna Whtie, ANDREW [address] [place] [address] [facility] FMStart: 42-29-0288Dvxwntpkef A1c measurement Diabetes: Hemoglobin B6NARQTLiberty HospitalStart: 12-30-2023 End: 99-11-8737Xnnwjfocvg A1c/Hemoglobin.total in BloodHemoglobin A1c Lab Routine Type 2 diabetes mellitus without complication, without long-term current use of insulin ([facility]/HCC) Expected: 12/30/2023 (Approximate), Expires: 12/29/2024 [facility] Work Phone: Comment on above:Expected: 12/30/2023 (Approximate), Expires: 12/29/2024Start: 12-30-2023 End: 70-12-9595Qpleeqp encounter rjuzhpukk94/08/2024 9:00 AM EDT Office Visit [facility] [address] [place] [address] Eliceo Whitey, BOWL SANDER [address] [place] [address] [facility] FMComment on above:ArrivedStart: 11-23-2023 COVID-19 Vaccine ( season)COVID-19 Vaccine ( season)[facility]: 38-00-4902LLGLE-19 Vaccine ( season)COVID- 19 Vaccine ( season)[facility]: 11-23-2023 Influenza vaccinationInfluenza Vaccine (#1)[facility] HospitalStart: 10-23-2023 Influenza vaccinationFlu vaccine (#1)[facility]art: 10-06-2023 End: 94-99-4244Jknadqklkwk &/transposition ulnar nerve elbowARM NERVE TRANSPOSITION Cubital tunnel syndrome, right 10/06/2023 11:31 AM [facility]: 07-47-2136Idzyebke vaccine (1 of 2)Shingles vaccine (1 of 2)[facility]: 23-89-1783Iwbvztkqj for malignant neoplasm of colonMary [facility]: 51-98-6850PLdK/Tdap/Td vaccine (1 - Tdap) DTaP/Tdap/Td vaccine (1 - Tdap)[facility]: 02-18-1994 Hepatitis B vaccine (1 of 3 - 19+ 3-dose series)Hepatitis B vaccine (1 of 3 - 19+ 3-dose series)[facility]: 61-60-0566Ujfkidjex B Vaccines (1 of 3 - 19+ 3-dose series)Hepatitis B Vaccines (1 of 3 - 19+ 3-dose series) [facility]Start: 31-09-4834Wwdlfkvfrnfi 50+ years Vaccine (1 of 2 - PCV) Pneumococcal 50+ years Vaccine (1 of 2 - PCV)[facility]: 90-77-9601Znuypmdc screeningDiabetic retinal examNorton Community Hospitalart: 82-77-4567Daleskfrq C screeningHepatitis C screenMary [facility]: 29-33-8848SQS screeningHIV screenMary [facility]: 1985 Depression MonitoringDepression MonitoringMary [facility]: 56-56-4352Havdksye foot examinationDiabetic foot examJohn [facility] Medical Center Start: 02-88-0933Kvxmdxiemy A1c iyhohvdheblI1I test (Diabetic or Prediabetic)[facility]: 67-72-4096YSkJ/Tdap/Td Vaccines (1 - Tdap) DTaP/Tdap/Td Vaccines (1 - Tdap)[facility] HospitalStart: 27-82-2699WOY Vaccines (1 of 1 - Standard series)MMR Vaccines (1 of 1 - Standard series)[facility] Start: 39-91-4114OOUBF-19 Vaccine (#1)COVID-19 Vaccine (#1)[facility]: 95-52-0792Juovnqmtc for malignant neoplasm of colonNOMS Healthcare Bacteria identified in Urine by CultureLakehealth Beachwood [facility] Center Comprehensive metabolic 2000 panel - Serum or PlasmaLakehealth Beachwood Medical CenterOxygen therapy [Minimum Data Set]Initiate Oxygen Therapy Protocol Respiratory Care Routine As Needed until discontinued starting 10/06/2023[facility] on above:As Needed until discontinued starting 10/06/2023athology studySurgical Pathology Lab Routine Positive colorectal cancer screening using Cologuard test Release Upon Ordering for 1 Occurrences starting 10/28/2024[facility] on above:Release Upon Ordering for 1 Occurrences starting 10/28/2024 End: 71-42-3645ERLYOEAB PATHOLOGY REPORTSURGICAL PATHOLOGY REPORT Lab Routine Once for 1 Occurrences starting 10/28/2024 until 10/28/2024[facility] on above:Once for 1 Occurrences starting 10/28/2024 until 10/28/2024[facility] Immunizations Immunization DateImmunizationNotesCare CjmamvytJyxqwtxk47-63-2467Ruuzls Purple Cap SARS-CoV-2 VaccinationJenn Barry NP Work Phone: [facility] HospitalTcfkabokhm09-56-0663sfxdqatcv, injectable, quadrivalent, preservative freeBrittany White BOWL SANDER Work Phone: [phone] [place], [place] [address]Sagygucezu82-68-5014xrlctfqmd virus vaccine, unspecified formulationBrittany White BOWL SANDER Work Phone: [phone] [place], [place] [address]Yqprnejmdh50-90-3130Wfotdpb SARS-CoV-2 VaccinationLisa Aichholz BOWL SANDER Work Phone: [phone])[facility] [place], [place] [address]Gangussxac92-84-4570Yjaojkw SARS-CoV-2 VaccinationLisa Aichholz BOWL SANDER Work Phone: [phone])[facility] [place], [place] [address]Nvnrgafuav77-49-0358bawgkensw, injectable, quadrivalent, contains preservativeBrittany White BOWL SANDER Work Phone: [phone])[facility] [place], [place] [address]Jhcphkwppx38-33-6600Bmbtfvpzd, injectable, Madin Bonita Canine Kidney, preservative free, quadrivalentBrittany White BOWL SANDER Work Phone: [phone] [place], [place] [address]Ullzenznyb46-09-2591vyihoakrb, seasonal, injectableBrittany White BOWL SANDER Work Phone: [phone] [place], [place] [address]Gvrxhvixuf22-67-8085dnzkhtbcj, seasonal, injectable, preservative freeBrittany White BOWL SANDER Work Phone: [phone] [place], [place] [address]Yscpdtqcca73-49-0999jnxgkhwcl, seasonal, injectable, preservative freeBrittany White BOWL SANDER Work Phone: [phone])[facility] [place], [place] [address]Hkocfyuorz69-79-9751bgswmbytc, seasonal, injectableBrittany White BOWL SANDER Work Phone: [phone] [place], [place] [address]Ekbmuseogk69-02-0104sskoqgbzj, seasonal, injectableBrittany White BOWL SANDER Work Phone: [phone] [place] [address] Payers DatePayer CategoryPayerPolicy [id number] Health Insurance [id number] 2.16.840.1.800767.3.57[id number] 2.16.840.1.460052.3.57[id number] 2.16.840.1.639373.3.57[id number] 2.16.840.1.516791.3.57[id number] 2.16.840.1.436240.3.57[id number] 2.840.1.401293.3.57[id number] 2.840.1.534395.3.57[id number] 2.16.840.1.346550.3.57[id number] 2.16.840.1.769549.3.57[id number] 2..840.1.827569.3.57[id number] 2.16.840.1.080675.3.57[id number] 2.16.840.1.374518.3.57[id number] 2.16.840.1.128249.3.57[id number] 2.16840.1.977330.3.579.2.040645-21-0941Usnpmeg78108826 2.16.840.1.305138.3.579.2.79019-51-4545Rixvbsh40401638 2..840.1.816829.3.579.2.64826-26-4193Vcvmgto87703132 2.16.840.1.320923.3.579.2.75503-55-1958Lfmtvyn77834910 2..840.1.405514.3.579.2.31685-81-8324Dgfiaeo62491879 2.16.840.1.866435.3.579.2.56030-99-2764Dgnwssw33760025 2..840.1.531733.3.579.2.18732-40-7672Kwgtsho70582305 2.16.840.1.756918.3.579.2.25495-85-5742Udhteuy02007200 2..840.1.144342.19 Self-paySelf [id number]-84jg-78yp-[id number] Social History DateTypeDetailFacilityUnknown if ever smokedNowashington [facility] TEAM Other Start: 12-23-2023 End: 57-50-2170Lsv [facility]: 47-64-5505Kxh [facility] 06-05-2023 End: 09-61-1833Fwnxodp smoking status NHISNever [facility] Start: 06-05-2023 End: 07-14-5349Nsjqdxs use and exposureSmokeless tobacco non-userBON [facility] PEORIABlastRoots PR[facility] HOSPITALStart: 10-01-2023 End: 36-00-7413Rnrjuczuu beverage intakeLifetime non-drinker (finding)[facility]ENTERStart: 12-23-2023 End: 84-29-4281Lpylgxp of Social functionNOKY HealthcareStart: 79-65-4159Xdd often do you need to have someone help you when you read instructions, pamphlets, or other written material from your doctor or pharmacy [SILS]Never NOMS HealthcareDo you belong to any clubs or organizations such as evangelical groups, unions, fraternal or athletic groups, or [...] to pay the mortgage or rent on time?YesNOSaint Joseph Health CenterStart: 36-46-7426Ifw assigned at birthNot on file WILLIAMS HOSPITALKiteDeskUC WEST CHESTER HOSPITALStart: 67-25-9885VisHhvt (finding)[facility] General HospitalTaxon BiosciencesInova Loudoun HospitalNEGATED: Highlighted rowStart: NINFHistory of tobacco usePassive smokerWYTHE COUNTY COMMUNITY HOSPITAL Medical Equipment Procedure CodeEquipment CodeEquipment Original TextEquipment IdentifierDatesUSE 1 STRIP TO CHECK GLUCOSE ONCE DAILYStart: 09-26-2024 Goals DatePatient GoalDesired Activity/StatePersonal health goal Functional Status PzmrUmjhhmenybRoujycWdoveaji99-52-4540Rrmtp score [AUDIT-C]1 12/23/2023 9:10 AM EDT Shelby SaleemNOKY Mutiybjpav93-21-2381Ubg often do you have a drink containing alcohol?Monthly or less 12/23/2023 9:10 AM EDT Mychart, Generic Monthly or lessNOMS Hskmkdfmqq12-48-3532Lrb many standard drinks containing alcohol do you have on a typical day?1 or 2 12/23/2023 9:10 AM EDT Mychart, Generic 1 or 2NOMS Fqjjepejow84-93-1227Vgi often do you have 6 or more drinks on 1 occasion?Never 12/23/2023 9:10 AM EDT Mychart, Generic NeverLiberty Hospital 05-11-8160Djwmgqs Health Questionnaire 2 item (PHQ-2) [Reported][facility] 38-96-0869Jodlxvq Health Questionnaire 2 item (PHQ-2) [Reported][facility] Clinical Notes 02-19-2021 to 01-30-2025 Note Date & LiufCztbEtzjodsk00-79-2164 Hospital Discharge instructions* Discharge Instructions* Sammy Sapp PA-C - 01/30/2025 5:22 PM EST Continue inhaler as prescribed follow-up with primary care. Return to have any symptoms worsen or new symptoms develop. * Attachments The following attachments cannot be sent through Care Everywhere. * Cough (Qatari) * Sinusitis: Acute (Qatari) * Metered Dose Inhalers Without a Spacer (Qatari) documented in this [facility]11-04-2025 [...] through Care Everywhere. * Nebulizers: General Info (Qatari) documented in this encounterBon [facility]10[facility] Hospital Discharge instructionsAmbulatory Orders* AMB POC Hgb A1C Time Frame: 01/19/25, Location: Determined By Patient [facility] Work Phone: [phone] 269-510108-07-2025 History of Present illness Narrative* Sr Leena Garcia - 10/28/2024 10:22 AM EDT Spiritual Services Interventions [facility] ENDO Pool/NONE 10/28/2024 Sr Leena Brenner 49 y.o. year old male Encounter Summary Encounter Overview/Reason: Initial Encounter Service Provided For: Patient Referral/Consult From: [employer] System: Unknown Last Encounter : 10/28/24 Complexity of Encounter: Low Begin Time: 904 End Time : 909 Total Time Calculated: 5 min Spiritual/Emotional needs Type: Spiritual Support Assessment/Intervention/Outcome Assessment: Calm Intervention: Prayer (assurance of)/[place] Outcome: Expressed Gratitude * Lauren Le RN - 10/19/2024 11:08 AM EDT [facility] Preadmission Testing Name: Hair Brenner : 1975 [...] [x] Ride Home [x] No Jewelry/Contact Lenses/Nail Mongolian [x] Prep/Lax/Clear Liquids [] Chlorhexidene DOS Patient Needs [] HCG [x] Blood Sugar [] PT/INR [] T&S Do you have any metal allergies? [] Yes [x] No If yes, to what metals: Patient instructed on the pre-operative, intra-operative, and post-operative process? Yes Medication instructions reviewed with patient? Yes documented in this encounterBon [facility]08-07-2025 Hospital Discharge instructions* Discharge Instructions* Morgan Lovell [...] one drug, even if it is an mxut-vqz-rdnavry medication, herb, or dietary supplement, be sure [...] call 911 immediately. documented in this encounterBon [facility]07-09-2025 History of Present illness Narrative* Jenn Barry NP - 09/29/2024 8:40 AM EDT Images from the original note were not included. Hair Brenner is a 49 y.o. male presents with chief complaint of Diabetes HPI: Heel pain: right, few months, everyday, constant, no pain with sitting, sit to stand worse, fades away w walking, hx of heel spur (steam roller operator told in the past) would like [...] no compliance problems. There isno history of CAD/MO, heart failure or PVD. Diabetes He presents [...] mg, Oral, Nightly Blood Glucose Monitoring Suppl ([employer] Verio Flex System) w/Device kit USE DIRECTED busPIRone (BUSPAR) 15 mg, Oral, Every 8 hours PRN carvedilol (COREG) 25 mg, Oral, 2 times daily with meals HYDROcodone-acetaminophen ([place]) 5-325 MG tablet 1 tablet, Oral, Every [...] complication, without long-term current use of insulin ([facility]) - Primary Check blood sugars daily, notify [...] Morbid (severe) obesity due to excess calories ([facility]) Discussed with patient their BMI (actual, verses [...] Pt would like a referral to a steam roller operator near or in [place]. Pt checked BP this morning 122/80 pt [...] Morbid (severe) obesity due to excess calories ([facility]) Discussed with patient their BMI (actual, verses [...] without complication, without long-term current useof insulin ([facility]) Check blood sugars daily, notify if <70 [...] could not tolerate this documented in this encounterLiberty HospitalKmrhtnwzmd42-43-4767 Instructions* Patient Instructions* Jenn Barry NP - 09/29/2024 8:40 AM EDT ,cut amlodipine pill in half so you will take 5mg daily and check blood pressures at home for the next 7 days twice a day, and stop by office for a blood pressure check in 1 week, and bring readings along with you documented in this encounterDebra Ville [address]Yylysgnfyq31-41-8036 History of Present illness Narrative* MAYNOR VALERIO [...] chief complaint of Diabetes HPI: MAYNOR VALERIO Computer Operations Analyst 9:22 AM Pt does not wear sensor- [...] being taken. He does not see a steam roller operator.Eye exam is current. Hypertension This is [...] Oral, 2 times daily with meals HYDROcodone-acetaminophen ([place]) 5-325 MG tablet 1 tablet, Oral, Every [...] Problem List Items Addressed This Visit Dyslipidemia ([facility]) On statin therapy Check labs yearly and as needed Relevant Medications pravastatin (Pravachol) 40 MG tablet Other Relevant Orders Comprehensive metabolic panel Lipid panel Essential hypertension ([facility]) Please check blood pressure daily and record [...] could not tolerate this documented in this encounterLiberty HospitalLdwzhrmdjd17-32-0051 Instructions* Patient Instructions* Jenn Barry NP - 06/29/2024 9:20 AM EDT Fasting labs: 8 hours Increase buspirone to 15mg every 8 hours as needed for anxiety documented in this [facility]10-29-2024 Telephone encounter Note* Telephone Encounter - Akosua Ramos MA - 01/20/2024 2:37 PM EDT The prior auth for the dexcom was denied because he is not currently using insulin. Liberty HospitalPvebicohzh41-30-8837 Miscellaneous Notes* Telephone Encounter - Akosua Ramos MA - 01/20/2024 2:37 PM EDT The prior auth for the dexcom was denied because he is not currently using insulin. documented in this [facility]10-08-2024 History of Present illness Narrative* Anna White [...] GLOBULIN RATIO 1.1 Resulting Agency [facility] DMII: Currently taking Glipizide 5mg BID [...] Problem List Items Addressed This Visit Dyslipidemia ([facility]) Currently taking Pravastatin 40mg Denies any myalgias. Most recent Lipid Panel done 5 months ago- WNL Continue current regimen. Essential hypertension ([facility]) Currently taking losartan-hydrochlorothiazide 100-25 Amlodipine 10mg Carvedilol 25mg Does not check BP at home; Denies orthostatic changes, dizziness, cough, shortness of breath, swelling in extremities. Continue current regimen. Given BP log, advised pt to record BP and bring log back with them to next visit. Type 2 diabetes mellitus without complication, without long-term current use of insulin ([facility]) -Primary Currently taking Glipizide 5mg BID Ozempic [...] or do not improve. documented in this [facility]10-08-2024 Instructions* Patient Instructions* Anna White NP - 12/30/2023 9:00 AM EDT Referral sent to GI for colonoscopy- they will call you. If you don't hear from them in 2 weeks, call my office! Have A1C completed. Try taking miralax to help ease constipation. Call if stomach cramping doesn't subside. documented in this [facility]07-15-2024 History of Present illness Narrative* Gris Renteria [...] 17 1/2 year old dgtr Ying as skip load driver to take pt home. Pt states she is his only ride home and feels very comfortable with his dgtr taking him home. He states this isthe only way he can have the procedure done as there is no other person he can call to take him home-they have no other family in the area. Discussed with placement manager Mya CHRISTIANSON, RN who also discussed with Risk Management-Susana Carrasco who states that as long as pt is comfortable with his dgtr taking him home and there is no one else, the procedure can continue as scheduled. * Lauren Le RN - 09/30/2023 1:08 PM EDT [facility] Preadmission Testing Name: Hair Brenner : 1975 [...] [x] Ride Home [x] No Jewelry/Contact Lenses/Nail Mongolian [] Prep/Lax/Clear Liquids [] Chlorhexidene DOS Patient Needs [] HCG [x] Blood Sugar [] PT/INR [] T&S Do you have any metal allergies? [] Yes [x] No If yes, to what metals: Patient instructed on the pre-operative, intra-operative, and post-operative process? Yes Medication instructions reviewed with patient? Yes documented in this encounterB[facility]07-14-2024 Hospital Discharge instructions* Discharge Instructions* Carlito Leung [...] days after surgery/discharge. documented in this encounterBON [facility]PP[facility]07-03-2024 NoteMRSA CULTURE APPROPRIATE ISOLATION PROCEDURES.[facility] CityDwzwzxtsjy06-58-7064 Evaluation note* Encounter Date Diagnosis Assessment Notes [...] no improvement in 2 to 3 days. [employer] Other 07-20-2022 Evaluation note* Encounter Date Diagnosis [...] to the ER forworsening symptoms or concern [employer] Other 2022 Evaluation note* Encounter Date Diagnosis [...] time Apr,therParonychia home care material was printed [employer] Other 11-29-2021 Evaluation note* Encounter Date Diagnosis [...] care instructions given in writting by [facility] Care At Home document [employer] Other Evaluation noteNo assessment information available [facility] Work Phone: Evaluation note* Diagnosis Type 2 diabetes mellitus without complication, without long-term current use of insulin (CMS/HCC)- Primary Dyslipidemia (CMS/HCC) Other and unspecified hyperlipidemia Essential hypertension (CMS/HCC) Unspecified essential hypertension Positive colorectal cancer screening using Cologuard test Screening for colon cancer Special screening for malignant neoplasms, colon Constipation, unspecified constipation type documented in this encounter [facility] HealthcareEvaluation note* Diagnosis Encounter for screening for [...] insulin (CMS/HCC)- Primary documented in this encounter [facility] HealthcareEvaluation [...] of insulin (CMS/HCC) documented in this encounter [facility] HealthcareEvaluation note* Diagnosis Encounter for screening for [...] exam Routine general medical examination at a [facility] care facility Acute bilateral low back pain [...] Unspecified essential hypertension documented in this encounter [facility] HealthcareEvaluation note* Diagnosis Encounter for screening for [...] Generalized anxiety disorder documented in this encounter [facility] HealthcareEvaluation note* Diagnosis Post-op pain- Primary Other acute postoperative pain documented in this encounter [facility] HEALTHEvaluation note* Diagnosis Encounter for [...] Unspecified essential hypertension documented in this encounter [facility] HealthcareEvaluation [...] with right-sided sciatica documented in this encounter [facility] HealthcareEvaluation [...] Morbid (severe) obesity due to excess calories ([facility]) Body mass index (BMI) 40.0-44.9, adult ([facility]) Essential hypertension Unspecified essential hypertension Type 2 diabetes mellitus without complication, without long-term current use of insulin ([facility]) Depression with anxiety Dysthymic disorder Dyslipidemia Other [...] Hyperuricemia Other abnormal blood chemistry Morbid obesity ([facility]) Morbid obesity Acute bilateral low back pain [...] Morbid (severe) obesity due to excess calories ([facility]) Body mass index (BMI) 40.0-44.9, adult ([facility]) Essential hypertension Unspecified essential hypertension Type 2 diabetes mellitus without complication, without long-term current use of insulin ([facility]) Depression with anxiety Dysthymic disorder Dyslipidemia Other [...] Hyperuricemia Other abnormal blood chemistry Morbid obesity ([facility]) Morbid obesity Acute bilateral low back pain [...] Morbid (severe) obesity due to excess calories ([facility]) Body mass index (BMI) 40.0-44.9, adult ([facility]) Essential hypertension Unspecified essential hypertension Type 2 diabetes mellitus without complication, without long-term current use of insulin ([facility]) Depression with anxiety Dysthymic disorder Dyslipidemia Other [...] Morbid (severe) obesity due to excess calories ([facility]) JAN (generalized anxiety disorder) Generalized anxiety disorder Depression with anxiety Dysthymic disorder Type 2 diabetes mellitus with other specified complication (HCC) Hyperlipidemia, unspecified Positive colorectal cancer screening using Cologuard test Hyperuricemia Other abnormal blood chemistry Acute bilateral low back pain with right-sided sciatica Pain of right heel [facility] this encounter [facility]* Diagnosis Positive colorectal cancer screening using Cologuard test- Primary Pre-op testing Preoperative examination, unspecified Positive colorectal cancer screening using Cologuard test [facility] Diagnosis Positive colorectal cancer screening using Cologuard test- Primary Rectal bleeding Hemorrhage of rectum and anus documented in this encounter [facility] CenterEvalubayhealth [facility] note* Diagnosis Onset Date Resolution Status Admit Date Brain fog acuteOctober 2024 2:17pmDepression with anxietyacuteOctober 2024 2:17pmEssential hypertensionacuteOctober 2024 2:17pmHyperlipidemiaacute October th, 2025 2:17pmMorbid obesity due to excess caloriesacuteOctober 2024 2:17pmOSA (obstructive sleep apnea)acuteOctober 2024 2:17pmPositive colorectal cancer screening using Cologuard testacuteOctober 2024 2:17pm Type 2 diabetes mellitus without complication, without long-term current usacute January 19, 2025 2:17pm [facility] Work Phone: Evaluation note* Diagnosis Bronchitis- Primary Bronchitis, not specified as acute or chronic Acute cough documented in this encounter [facility] CenterEvalubay[facility] note* Diagnosis Acute maxillary sinusitis, recurrence not specified- Primary Acute cough Wheezing documented in this encounter [facility] general Narrative - Reported* Type Description Date Medical History HTN Medical HistoryPre diabeticMedical HistoryAnger issuesMedical History Hyperlipidemia [employer] Other Reason for referral (narrative)* Consultation (Routine) - Pending ReviewSpecialtyDiagnoses / ProceduresReferred By Contact Referred To ContactGastroenterology Diagnoses Positive colorectal cancer screening using Cologuard test Screening for colon cancer Procedures WA OFFICE/OUTPATIENT NEW HIGH MDM 60 MINUTES Anna White NP [address] [place] [phone] Pati Corona MD [address] [place] [address] Referral IDStatusReasonStart DateExpiration DateVisits RequestedVisits [id number] Review Specialty Services Required / FELIPA Bolden for referral (narrative)No reason for referral information availableAdams County Regional Medical Center Work Phone: Reason for visit Narrative* Outpatient Service (Routine) - Not Required - RTASpecialtyDiagnoses / ProceduresReferred By ContactReferred To ContactCardiology Diagnoses Pre-op testing Procedures EKG 12 Lead Virginia Ramos, COMBO WELDER - SALES CONTRACTOR [address] [place] [address] Phone: tel: fax: Referral IDSumaDiorsantosYeoman DateExpiration DateVisits RequestedVisits [id number] Required - RTA/ [facility] for visit Narrative* Auth/CertSpecialtyDiagnoses / ProceduresReferred By ContactReferred To Contact Diagnoses Positive colorectal cancer screening using Cologuard test Procedures WA COLON CA SCRN NOT HI RSK IND WA COLORECTAL SCRN; HI RISK IND WA ESOPHAGOGASTRODUODENOSCOPY TRANSORAL DIAGNOSTIC WA EGD TRANSORAL BIOPSY SINGLE/MULTIPLE WA EGD BALLOON DILATION ESOPHAGUS <30 MM DIAM COLORECTAL CANCER SCREENING, NOT HIGH RISK Morgan Lovell MD [address] [facility] [address] [place] [address] Phone: tel: fax: [facility] [address] [place] [address] Referral IDSmartin memorial hospitalusSovah Health - [place] DateExpiration DateVisits RequestedVisits [id number] [facility] Chief Complaint and Reason for [...] (unrecogniz ed section and content) ReasonCommentsFollow-upReasonOnset DateCommentsMed [id number] DateCommentsMed Axfvbl3403/25/2024ReasonOnset DateCommentsMed Pbrjtl8803/23/2024 SpecialtyDiagnoses / ProceduresReferred By ContactReferred To Contact Diagnoses Cubital tunnel syndrome, right Cubital tunnel syndrome, right [G56.21] Procedures WA NEUROPLASTY &/TRANSPOSITION ULNAR NERVE ELBOW RIGHT CUBITAL TUNNEL RELEASE Carlito Leung, DO [address] [place] [address] [facility] [address] [place] [address] Referral IDStatusReasonStart DateExpiration DateVisits RequestedVisits [id number] DateCommentsMed Auztfu7505/06/2024ReasonComments DiabetesReasonCommentsDiabetesReasonCommentsIllnessProductive green cough, congestion since Friday. Fever [...] Date Richard Harris MD [address] [place] [address] PCP - GeneralFamily Medicine11/04/23 Anna White NP [address] [place] [address] Nurse PractitionerLongwood Hospital Medicine11/04/23Team MemberRelationshipSpecialtyStart DateEnd Date Richard Harris MD [address] [place] [address] PCP - [facility]St[facility]11/04/23 Anna White NP [address] [place] [address] Nurse PractitionerSt. Francis Hospital11/04/23Team MemberRelationshipSpecialtyStart DateEnd Date Richard Harris MD [address] [place] [address] PCP - [facility]11/04/23 Anna White NP [address] [place] [address] Nurse PractitionerSt. Francis Hospital11/04/23Team MemberRelationshipSpecialtyStart DateEnd Date Anna White NP [address] [place] [address] Nurse PractitionerLongwood Hospital Medicine11/04/23Team MemberRelationshipSpecialtyStart DateEnd Date Anna White NP [address] [place] [address] Nurse PractitionerLongwood Hospital Medicine11/04/23Team MemberRelationshipSpecialtyStart DateEnd Date Anna White ANDREW [address] [place] [address] Nurse PractitionerSt. Francis Hospital11/04/23Team MemberRelationshipSpecialtyStart DateEnd Date Anna White NP [address] [place] [address] Nurse PractitionerSt. Francis Hospital11/04/23Team MemberRelationshipSpecialtyStart DateEnd Date Shaikh Cordoba MD [address] [place] [address] PCP - General10/06/23Team MemberRelationshipSpecialtyStart DateEnd Date Richard Harris MD [address] [place] [address] PCP - [facility]04/26/24 Anna White, ANDREW [address] [place] [address] Nurse PractitionerSt. [facility] Hospital11/04/23Team MemberRelationshipSpecialtyStart DateEnd Date Richard Harris MD [address] [place] [address] PCP - [facility]04/26/24 Anna White NP Nurse PractitionerSt. Francis Hospital11/04/23Team MemberRelationshipSpecialtyStart DateEnd Date Richard Harris MD [address] [place] [address] PCP - GeneralLongwood Hospital Medicine04/26/24 Anna White NP Nurse PractitionerLongwood Hospital Medicine11/04/23Team MemberRelationshipSpecialtyStart DateEnd Date Richard Harris MD [address] [place] [address] PCP - GeneralLongwood Hospital Medicine04/26/24 Anna White NP Nurse PractitionerSt. [facility]11/04/23Team MemberRelationshipSpecialtyStart DateEnd Date Jenn Barry, COMBO WELDER - BOWL SANDER [address] [place] [address] PCP - GeneralB[facility] Healthcare09/01/24Team MemberRelationshipSpecialtyStart Date End Date Richard Harris MD [address] [place] [address] PCP - GeneralLongwood Hospital Medicine04/26/24 Anna White NP Nurse PractitionerSt[facility]11/04/23Team MemberRelationshipSpecialtyStart DateEnd Date Richard Harris MD [address] [place] [address] PCP - GeneralLongwood Hospital Medicine04/26/24 Anna White NP Nurse [facility]11/04/23Team MemberRelationshipSpecialtyStart DateEnd Date Richard Harris MD [address] [place] [address] PCP - [facility]04/26/24 Anna White NP Nurse [facility]11/04/23Team MemberRelationshipSpecialtyStart DateEnd Date Richard Harris MD [address] [place] [address] PCP - [facility]04/26/24 Anna White NP Nurse [facility]11/04/23Te MemberRelationshipSpecialtyStart DateEnd Date Jenn Barry, COMBO WELDER - BOWL SANDER [address] [place] [address] PCP - GeneralNurse Practitioner09/01/24Team MemberRelationshipSpecialtyStart Date End Date Jenn Barry, COMBO WELDER - BOWL SANDER [address] [place] [address] PCP - GeneralNurse Practitioner09/01/24Team MemberRelationshipSpecialtyStart Date End Date Richard Harris MD [address] [place] [address] PCP - [facility]04/26/24 Anna White NP Nurse PractitionerFamily Medicine11/04/23Team MemberRelationshipSpecialtyStart DateEnd Date Richard Harris MD [address] [place] [address] PCP - GeneralFamily Medicine04/26/24 Anna White NP Nurse PractitionerPella Regional Health Centerly Medicine11/04/23Team MemberRelationshipSpecialtyStart DateEnd Date Jenn Barry APRN - BOWL SANDER [address] [place] [address] PCP - GeneralNurse Practitioner09/01/24Team MemberRelationshipSpecialtyStart Date End Date Shaikh Cordoba MD PCP - GeneralInternal Medicine Richard Harris MD PCP - GeneralFamily Medicine11/03/2409 Unallocated, Felipa Juarez MD [address] [place] [address] PCP - GeneralFamily Pczybfrc70/15/ Richard Harris MD PCP - GeneralFamily Medicine04/26/24 Anna White BOWL SANDER Nurse Practitionermily Medicine11/04/23Team MemberRelationshipSpecialtyStart DateEnd Date Shaikh Cordoba MD [facility] - [facility] Richard Harris MD PCP - [facility] Medicine11/03/2409 UnallocatedFelipa MD [address] [facility] [place] [address] PCP - [facility] Mbmxnnrf70/15/ Richard Harris MD PCP - [facility] Medicine04/26/24 Anna White [facility]11/04/23 Team Status: Active Member Role/Relationship Status Dates Jenn Barry NP-C Primary Care Provider Active Team Status: Inactive Member Role/Relationship Status Dates Jenn Barry NP-C Primary Care Provider Active Start: January 19, 2025 End: January 19, 2025Jenn Barry NP-CAttending ProviderActiveStart: January 19, 2025 End: January 19, 2025Team MemberRelationshipSpecialtyStart DateEnd Date Jenn Barry APRN - BOWL SANDER [address] [place] [phone] [facility] - [facility]/01/24Team MemberRelationshipSpecialtyStart Date End Date Jenn Barry APRN - BOWL SANDER [address] [place] [phone] PCP - GeneralNurse Practitioner09/01/24Team MemberRelationshipSpecialtyStart Date End Date Jenn Barry, COMBO WELDER - BOWL SANDER [address] [place] [address] PCP - GeneralNurse Practitioner09/01/24 Goals (unrecognized section and content) Goals may be documented in a n alternate section (unrecognized sect ion and content) No Status Records FoundNo Status Records FoundNo Status Records FoundNo Status Records FoundNo Status Records FoundNo Status Records FoundNo Status Records Found INFORMATION SOURCE (unrecogn ized section and content) DATE CREATED AUTHOR 10/18/2021 [facility] DATE CREATED AUTHOR AUTHOR'S ORGANIZ ATION 08/01/2022 [facility] DATE CREATED AUTHOR AUTHOR'S ORGANIZ ATION 08/24/2023 [facility] DATE CREATED AUTHOR AUTHOR'S ORGANIZ ATION 04/06/2024 [facility] DATE CREATED AUTHOR AUTHOR'S ORGANIZ ATION 10/03/2024 [facility] DATE CREATED AUTHOR AUTHOR'S ORGANIZ ATION 11/01/2024 [facility] DATE CREATED AUTHOR AUTHOR'S ORGANIZ ATION 01/31/2025 [facility] Ordered Prescriptions (unrec ognized section and [...] 100 mL IVPB (COMPLETED) 3,000 mg, IntraVENous, EDGE POLISHER TO O.R., 1 dose, On Fri10/06/23 at [...] Pre-op (dayof surgery) BUPivacaine-EPINEPHrine PF (MARCAINE-w/EPINEPHrine) 0.5% -1:[id number] injection (CANCELED) PRN, Starting on Fri10/06/23 at [...] (NoRateChange - Provider: Sammy Parry APRN - DESIGN ENGINEERING MANAGER) * 0941 (Anesthesia Volume Adjustment - Provider: [...] BE BASED ON THE PRIMARY CLINICAL RECORDS. [facility] [employer] [facility]. provides no warranty or guarantee of the accuracy or completeness of information in this document.
== END 2025-03-02 10:11 | disposition home or self-care (01) ==
LOC: PM 10:11
PROVIDERS: PCP Nurse Practitioner; Visit Provider Nurse Practitioner
DX: M51.362 Other intervertebral disc degeneration, lumbar region with discogenic back pain and lower extremity pain (principal); M48.062 Spinal stenosis, lumbar region with neurogenic claudication
CPT/HCPCS: G0463

== ENCOUNTER 2025-03-21 06:51 | Day surgery (SDC) | payer OTHER, SELFPAY ==
--- OUTSIDE RECORDS SUMMARY | 2023-12-15 08:10 | XMS_ITS ---
Author Organization [facility] Address [address] [place] [address] Care Team Providers Care Aeronautical Research Engineer Name Role Phone SHAIKH HERRMANN Primary Care Provider Carlito Kendall Unavailable [phone] REASON FOR VISIT sp right cubital tunnel Encounters Encounter Location Date Provider Diagnosis [facility] [facility] [address] [place] [address] [place] [address] [address] 12/15/2023 Carlito Leung Plan Of Treatment No Information Progress Notes * KEVON BRENNER GDOB:[birth year] (50 yo M)Acc No.[id number]:12/15/2023 Progress Notes Patient: KEVON RICHARDS :?Carlito Leung, DODOB:1975???Age:48 Y ???Sex:MaleDate:12/15/2023hone:[phone]:[address] [place], [id number]:SHAIKH ALIZE Subjective: * Chief Complaints: * 1 . Sp right cubital tunnel. * Medical History: Objective: * Vitals: Assessment: Plan: * Treatment: Forms: * Images: * Electronic signature of Carlito Leung DO on 03/21/2025 at 06:55 AM ESTSign off status: Pending * Provider: Mya Leung DO Date: 0 12/15/2023 Generated for Printing/Faxing/eTransmitting on:?03/21/2025 06:55 AM EST
--- OUTSIDE RECORDS SUMMARY | 2025-03-21 06:56 | XMS_ITS | Clinical Summary ---
Author Organization [facility] Healthcare Address [address] [place] [address] Care Team Providers Care Blanchard Grinder Operator Name Role Phone Margarette White GRID MAKER Unavailable [phone] Richard Harris MD Primary Care Provider [phone] Allergies No known active allergies Medications MedicationSigDispense QuantityRefillsLast FilledStart DateEnd DateStatus HYDROcodone-acetaminophen ([place]) 5-325 MG tablet Take 1 tablet by mouth every 6 (six) hours if gcjqmw294Active sertraline (Zoloft) 50 MG tablet Indications:JAN (generalized [...] 30 tablet 5Active Blood Glucose Monitoring Suppl ([employer] Verio Flex System) w/Device kit USE BDAEAZWM17/08/2025Active OneTouch Verio test strip USE 1 STRIP [...] DateType 2 diabetes mellitus with other specified goarmcsqmhav47/09/2025 Assessment & Plan (09/29/2024 6:12 AM EDT): HTN, HLD, obesity Hyperlipidemia, glkmclmthqo22/09/2025 Assessment & Plan (09/29/2024 6:09 AM EDT): On statin Check labs yearly and prn dose changes Recent change in dose on atorvastatin d/t not at goal Pain of right heel09/29/2024ody mass index (BMI) 40.0-44.9, adult06/29/2024 Morbid (severe) obesity due to excess wujxmqfl64/08/2025 Assessment & Plan (09/29/2024 6:06 AM EDT): [...] on GLP-1 for diabetes Screening for prostate ucpace8906/29/2024 Overview (09/02/2024): 08/31/24 0.50 Positive colorectal cancer screening using Cologuard test12/30/2023 Assessment & Plan (09/29/2024 6:12 AM EDT): 06/18/23 + cologuard test Xlxiqknbigtn12/08/2024 Assessment & Plan (12/30/2023 12:01 PM EDT): [...] for ulnar nerve release on Friday. Pre-operative wolfhhhup65/10/2024 Assessment & Plan (10/01/2023 10:26 AM EDT): Scheduled for ulnar nerve release next week. Chronic medical conditions are stable and well optimized. At low risk of MACE and medically cleared to proceed with surgery. 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 He is scheduled for ulnar neve release next week, this was ordered by orthopedic surgery. Type 2 diabetes mellitus without complication, without long-term current use of xipijyc5506/05/2023 Assessment & Plan (09/29/2024 9:08 AM EDT): [...] FSBS at goal. Order labs. Depression with udsmcvn3506/05/2023 Assessment & Plan (09/29/2024 6:07 AM EDT): [...] 50 mg, uses buspirone as needed only. Idcjtlqqrwbuc59/14/2024 Assessment & Plan (06/29/2024 6:22 AM EDT): On allopurinol Check labs yearly, and prn dose change or change in symptoms Assessment & Plan (10/01/2023 10:23 AM EDT): On allopurinol. Assessment & Plan (06/05/2023 2:23 PM EDT): On allopurinol. Check uric acid. Screening for colon rnvevd2206/05/2023 Assessment & Plan (06/05/2023 2:23 PM EDT): Order Cologuard Acute bilateral low back pain with right-sided baaszsmu67/14/2024 Assessment & Plan (10/01/2023 10:25 AM EDT): [...] Chronic conditions are stable, labs ordered. Essential cxwkkzetdovg93/17/2020 Assessment & Plan (09/29/2024 9:20 AM EDT): [...] 10:26 AM EDT): On buspirone. C/w same Fbdikwftweex09/17/202007/11/2024 Assessment & Plan (06/29/2024 6:22 AM EDT): [...] EDT): C/w pravastatin. Check Lipid panel. Morbid inpikyv65 Assessment & Plan (06/05/2023 2:22 PM EDT): Patient educated on risks of increased cardiovascular morbidity/mortality and poor health outcomes associated with unhealthy bodyweight. Immunizations ImmunizationAdministration DatesNext DueInfluenza, injectable, MDCK, preservative free, tkdjaltqlpxp52/01/2019Influenza, injectable, quadrivalent 02/06/2020Influenza, injectable, quadrivalent, preservative free01/16/2021 Influenza, seasonal, cjobdodmja07/12/2017,12/30/2013,01/07/2013Influenza, seasonal, injectable, preservative free12/26/2015,01/04/2015Moderna SARS-CoV-2 Sbmcacnjjfs06/17/2021,06/05/2020fizer Purple Cap SARS-CoV-2 Vaccination 02/16/2021 Family History [...] relatives?Once a week12/23/2023How often do you attend rastafarian or mosque services?Never12/23/2023o you belong to any clubs or organizations such as rastafarian groups, unions, fraternal or athletic jessica ups, or school groups?No12/23/2023How often do you attend meetings of the clubs or organizations you belong to?Never12/23/2023re you , , , , never , or living with a partner?Fgtlpctr02/01/2024 AUDIT-CAnswerDate RecordedQ1: How often do you have [...] and heating?Somewhat hard12/23/2023HQ-2Answer Date RecordedPatient Health Questionnaire-2 Nvpil040FinEvansville Psychiatric [facility] - Occupational Stress QuestionnaireAnswerDate RecordedDo you feel stress - tense, restless, nervous, or anxious, or unable to sleep at night because yourmind is troubled all the time - these days?To some gacyol1512/23/2023 Exercise Vital SignAnswerDate RecordedOn average, how many [...] were you homeless or living in a fci (including now)?No12/23/2023Sex and Gender InformationValueDate Recorded Sex Assigned at BirthNot on fileLegal DggLeha0207/22/2022 8:31 PM EDTGender IdentityNot on fileSexual OrientationNot on file Last Filed Vital Signs Vital SignReadingTime TakenCommentsBlood Sarsmqlq94/6007 8:36 AM EDT Tobqj6948 8:36 AM MVAXfbbszogqeb50.7 ??C (98.1 ??F)09/29/2024 8:36 AM EDTRespiratory Ulgn727909/29/2024 8:36 AM EDTOxygen Zsscclaous11%09/29/2024 8:36 AM EDTInhaled Oxygen Concentration--Atmhyg682 kg (312 lb)09/29/2024 8:36 AM EDT Jbhpwm631.4 cm (6' 1 )10/01/2023 9:32 AM EDTBody Mass Index41.16010/01/2023 9:32 AM EDT Plan of Treatment Health MaintenanceDue DateLast DoneCommentsCT Ivqcsgmjrwbn1973Colonoscopy 1973FIT1973FOBT1973 2245Khbdigbcescrd1973Influenza Vaccine (#1)51, 02/06/2020, 02/21/2019, Additional history exists Colorectal Cancer Kttohmuek38/27/2027FIT-DNAiabetes: Hemoglobin M0WZhmyyptlpjhg97/09/2025, 06/29/2024, 09/22/2023, Additional history existsPneumococcal Vaccine: Pediatrics (0 to 5 Years) and At-Risk Patients (6 to 64 Years)Aged OutNo longer eligible based on patient's age to complete this topic Goals GoalPatient Goal TypeAssociated ProblemsRecent ProgressPatient-Stated?Author Help patient manage antidepressant medication Care PlanPatient on antidepressant monitoring Brianna Alvarez Baseline PHQ-9 Care PlanBaseline PHQ-9Brianna Todd Procedures Procedure NamePriorityDate/TimeAssociated DiagnosisCommentsPOCT GLYCOSYLATED HEMOGLOBIN (HGB A1C)Pbqzqkg1909/29/2024 8:54 AM EDT Type 2 diabetes mellitus without complication, without long-term current use of insulin (HCC) LAB COLOGUARD?? COLON CANCER RWLUYQLvluwxk75/27/2024 12:20 PM EDT Encounter for screening for malignant neoplasm of colon from Last 3 Months or Most Recently Relevant to Health Maintenance Results * (ABNORMAL) POCT glycosylated hemoglobin (Hb A1C) docked device (09/29/2024 8:54 AM EDT)ComponentValueRef RangeTest MethodAnalysis TimePerformed At Pathologist SignatureHemoglobin A1C5.9Specimen (Source)Anatomical Location / LateralityCollection Method / VolumeCollection TimeReceived TimeBloodVenous blood specimen / Qgwjxbv7309/29/2024 8:54 AM EDT Narrative Authorizing ProviderResult TypeResult StatusLisa Barry NPPOINT OF CARE TEST ENTER/EDIT ORDERABLESFinal Result * (ABNORMAL) Cologuard?? colon cancer screening (06/18/2023 12:20 PM EDT) ComponentValueRef RangeTest MethodAnalysis TimePerformed AtPathologist SignatureNONINV COLON CA DNA+OCC BLD SCRN STL-IMPPositive(A)Edkhxkez33/01/2024 5:56 PM EDTEXSofa Labs (CLIA #:[id number])Comment: POSITIVE TEST RESULT. A positive Cologuard result [...] (Jake Chavez al, N Engl J Med 2014;370(14):2298-1251.) Cologuard may produce a false negative or false positive result (no colorectal cancer or precancerous polyp present at colonoscopy follow up). A negative Cologuard test result does not guarantee the absence of CRC or advanced adenoma (pre-cancer). The current Cologuard screening interval is every 3 years. ([place] [employer] and [place]. Multi-Society Task Force). Cologuard performance data in a 10,000 patient pivotal study using colonoscopy as the reference method can be accessed at the following location: www.I Do Now I Don't/results. Additional description of the Cologuard test process, warnings and precautions can be found at www.cologuard.com. Specimen (Source)Anatomical Location / LateralityCollection Method / Volume Collection TimeReceived TimeStool specimen (specimen)06/18/2023 12:20 PM EDT 06/19/2023 8:38 AM EDT Narrative Authorizing ProviderResult TypeResult StatusShaikh Adalid [facility] ORDERABLESFinal ResultPerforming OrganizationAddressCity/State/ZIP CodePhone Number .[employer] (CLIA #:[id number]) [address] [address], [place] [phone] [employer] (CLIA #:[id number]) [address] [address] from Last 3 Months or Most Recently Relevant to Health Maintenance Additional Health Concerns Active ProblemsNoted DateDiagnosed DatePatient on antidepressant monitoring plan 03/08/2024aseline PHQ-9105/09/2023 Insurance Care Teams Team MemberRelationshipSpecialtyStart DateEnd Date Richard Harris MD PCP - GeneralFamily Medicine04/26/24 Margarette White NP Nurse PractitionerHouse [facility] Medicine11/04/23
--- OUTSIDE RECORDS SUMMARY | 2025-03-21 06:56 | XMS_ITS | CCD ---
Author Organization [facility] Care Team Providers Care Continuity Coordinator Name Role Phone Alexandra Gill Unavailable DimasAlexandra martínez Unavailable JUSTO Cannon Attending Provider [phone] Mamie Cannon Unavailable FAWWAD, YIN H Admitting [...] Unavailable Steven SIMS, Richard Primary Care Provider White MENTAL HEALTH ASSISTANT, Anna Unavailable [phone] Maddie SIMS, Swapnil Cummins Attending Unavailable Maddie SIMS, Andeliana Cummins Attending Unavailable Maddie SIMS, Andrius Cummins Attending Unavailable Maddie SIMS, Andeliana Cummins Attending Unavailable Shaikh Cordoba MD Primary Care Provider Richard Harris MD Primary Care Provider Christopher MENTAL HEALTH ASSISTANT, Anna Unavailable Asha SOLE SCRAPER - MENTAL HEALTH ASSISTANT, Jenn Covarrubias Primary Care Provide r JENN BARRY Attending Unavailable JENN BARRY Attending Unavailable ANNA WHITE Attending Unavailabl MORGAN Vergara Admitting Unavailable MORGAN LOVELL Attending Unavailable JENN BARRY Primary Care Unavailable Shaikh Cordoba MD Primary Care Provider Richard Harris MD Primary Care Provider Unallocated , [place] Provider Primary Care Provi stefano Richard Harris MD Primary Care Provider Asha MENTAL HEALTH ASSISTANT-C, Jenn Sage Primary Care Provider Asha MENTAL HEALTH ASSISTANT-C, Jenn Sage Attending Provider JENN BARRY. Primary [...] oral tablet (20 sources)Opioid AgonistStart: 10-06-2023 End: 14-00-8295mije 1 tablet by mouth every six hours as neededHYDROcodone- acetaminophen ([place]) 5-325 MG tablet Take 1 tablet by mouth every 6 (six) hours if needed 10/06/2023 [id number] 200 actuat albuterol 0.09 mg/actuat metered dose inhaler (4 sources)beta2-Adrenergic AgonistStart: 70-95-6162shbv 2 puff(s) by inhalation four times daily as needed for wheezingalbuterol sulfate HFA (VENTOLIN HFA) 108 (90 Base) MCG/ACT inhaler Inhale 2 puffs into the lungs 4 times daily as needed for Wheezing 18 g 01/25/2025 ActiveStart: 11-28-5075irxu 2 puff(s) by inhalation every four to six hours as neededAlbuterol Sulfate HFA 108 (90 Base) MCG/ACT 2 puffs as needed Inhalation every 4-6 hours for 14 days Jan, ActiveStart: 82-98-5730syqu 2 puff(s) by inhalation every four hours as neededAlbuterol Sulfate HFA 108 (90 Base) MCG/ACT 2 puffs as needed Inhalation every 4 hrs Nov, Activeallopurinol 300 mg oral tablet (20 sources)Xanthine Oxidase InhibitorStart: 10-01-2023 End: 84-03-4849rvbt 1 tablet by mouth once dailyAllopurinol 300 mg tablet Active 300 MG PO Daily November 25, 2024 12:00am Complies with drug therapytake 1 tablet by mouth once dailyallopurinol (ZYLOPRIM) 100 MG tablet Take 1 tablet by mouth daily ActiveamLODIPine 5 mg oral tablet (20 sources)Dihydropyridine Calcium Channel BlockerStart: 24-27-4096kivf 1 tablet by mouth once dailyAmlodipine 5 mg tablet Active 5 MG PO Daily November 25, 2024 12:00am Complies with drug therapyStart: 03-29-2024 End: 21-49-1527rmvs 1 tablet by mouth once dailyamLODIPine (Norvasc) 10 MG tablet Indications: Essential hypertension Take 1 tablet (10 mg) by mouth Daily 90 tablet 1 09/29/2024 12/28/2024 ActiveStart: 10-01-2023 End: 73-16-6787gaef 1 tablet by mouth once dailyamLODIPine (Norvasc) 10 MG tablet Indications: Essential hypertension (CMS/HCC) Take 1 tablet (10 mg) by mouth Daily 90 tablet 1 03/08/2024 03/25/2024 Discontinued (Reorder)take 1 tablet by mouth once dailyamLODIPine (NORVASC) 2.5 MG tablet Take 1 tablet by mouth daily ActiveamLODIPine Besylate Activeamoxicillin 875 mg / clavulanate 125 mg oral tablet (1 source)Penicillin-class AntibacterialStart: 01-30-2025 End: 93-22-7467kedn 1 tablet by mouth twice dailyamoxicillin-clavulanate (AUGMENTIN) 875-125 MG per tablet Take 1 tablet by mouth 2 times daily for 7 days 14 tablet 01/30/2025 02/06/2025 ActiveASA (6 sources)ASA Activeaspirin 81 mg delayed release oral tablet (20 sources)Platelet Aggregation Inhibitor, Nonsteroidal Anti-inflammatory Drug Start: 15-16-2694jowe 1 tablet by mouth once dailyAspirin (Enteric Coated Aspirin) 81 mg tablet,delayed release (DR/EC) Active 81 MG PO Daily 90 1 Nov 12:00am Hyperlipidemia Primary hypertension Type 2 diabetes mellitus without complications Hyperlipidemia, unspecified Essential (primary) hypertension Complies with drug therapyStart: 11-25-2024 End: 64-96-3283fsos 1 tablet by mouth once dailyAspirin 81 mg tablet Discontinued 81 MG PO Daily 90 December 17, 2024 6:37am December 21 5:30pm Primary hypertension Hyperlipidemia Type 2 diabetes mellitus without complications Essential (primary) hypertension Hyperlipidemia, unspecifiedStart: 06-29-2024 End: 14-13-8162wasy 1 tablet by mouth once dailyaspirin 81 MG EC tablet Indications: Essential hypertension , Type 2 diabetes mellitus without compl ication, without long-term current use of insulin (HCC) Take 1 tablet (81 mg) by mouth Daily 90 tablet 1 06/29/2024 09/29/2024 ActiveAtenolol (6 sources)beta-Adrenergic BlockerAtenolol Activeatorvastatin 20 mg oral tablet (17 sources)HMG-CoA Reductase InhibitorStart: 09-02-2024 End: 62-61-2105cjxe 1 tablet by mouth once dailyatorvastatin (LIPITOR) 20 MG tablet Take 1 tablet by mouth nightly 09/02/2024 Activeazithromycin 250 mg oral tablet (3 sources)Macrolide AntimicrobialStart: 01-25-2025 End: 90-33-0766nglhkdpvgqbk (ZITHROMAX) 250 MG tablet 500mg on day 1 followed by 250mg on days 2 - 5 6 tablet 01/25/2025 02/04/2025 ActiveStart: 01-25-2025 End: 32-25-8948kdbf 1 capsule by mouth kmyn755 mg, Oral, ONCE, 1 dose, On Fri01/25/25 at 0830, Antimicrobial Indications: Pneumonia (CAP)benzonatate 200 mg oral capsule (3 sources)Non-narcotic AntitussiveStart: 01-25-2025 End: 33-01-0947euwm 1 capsule by mouth three times daily as needed for cough benzonatate (TESSALON) 200 MG capsule Take 1 capsule by mouth 3 times daily as needed for Cough 30 capsule 01/25/2025 02/04/2025 ActiveStart: 48-34-1411ntjj 1 capsule by mouth three times daily as neededTessalon Perles 100 MG 1 capsule as needed Orally Three times a day Nov, ActiveBlood Glucose Monitoring Suppl (OneTouch Verio Flex System) w/Device kit (4 sources)Start: 12-90-2717Kccnm Glucose Monitoring Suppl (OneTouch Verio Flex System) w/Device kit USE DIRECTED 5ActivebusPIRone hydrochloride 15 mg oral tablet (20 sources)Start: 11-25-2024 End: 04-88-8425gzwo 1 tablet by mouth three times dailyBuspirone 15 mg tablet Active 15 MG PO Three times daily 270 0 January 17, 2025 1:11pm Anxiety with depression Other specified anxiety disorders Complies with drug therapyStart: 06-29-2024 End: 01-53-9940xawl 1 tablet by mouth every eight hoursbusPIRone (Buspar) 15 MG tablet Indications: JAN (generalized anxiety disorder) Take 1 tablet (15 mg) by mouth every 8 (eight) hours if needed (anxiety) 270 tablet 1 06/29/2024 Active Start: 10-01-2023 End: 42-78-5171hmch 1 tablet by mouth three times daily [...] lactate 0.028 meq/ml injectable solution (2 sources)Start: 57-75-9170XjpdeWVIdnm, at 100 mL/hr, CONTINUOUS, Starting on Dominique 10/28/24 at 0845, Pre-op (day of surgery)Start: 80-42-4755vaillksa ringers IV soln infusioncephalexin 500 mg oral capsule (10 sources)Cephalosporin AntibacterialStart: 10-06-2023 End: 33-15-7360thga 1 capsule by mouth in the morning, then take 1 capsule by mouth in the evening, then take 1 capsule by mouth at bedtimecephalexin (Keflex) 500 MG capsule Take 500 mg by mouth in the morning and 500 mg in the evening and 500 mg before bedtime. 10/06/2023 12/30/2023 Discontinued (Therapy completed) Start: 10-06-2023 End: 46-25-8655uiga 1 capsule by mouth three times dailycephALEXin (KEFLEX) 500 MG capsule Take 1 capsule by mouth 3 times daily for 7 days 21 capsule 0 10/13/2023 ActiveStart: 76-99-8804rwif 1 capsule by mouth every twelve hoursCephalexin 500 MG 1 capsule Orally two times a day for 5 day(s) Sep, ActiveStart: 91-93-1390gmxh 1 tablet by mouth every twelve hoursCephalexin 500 MG 1 tablet Orally every 12 hrs for 10 day(s) Apr, ActiveContinuous Glucose Hospice Admitting Clerk (Dexcom G7 Hospice Admitting Clerk) device (9 sources)Start: 01-05-2024 End: 69-73-8441Xsapxbazbk Glucose Hospice Admitting Clerk (Dexcom G7 Hospice Admitting Clerk) device Indications: Type 2 diabetes mellitus without complication, without long-term current use of insulin 1 each continuously 1 each 2 01/05/2024 06/29/2024 Discontinued (Cost of medication)Start: 42-36-6932Aolwcoepyv Glucose Hospice Admitting Clerk (Dexcom G7 Hospice Admitting Clerk) device Indications: Type 2 diabetes mellitus without complication, without long-term current use of insulin (CMS/HCC) 1 each continuously 1 each 2 01/05/2024 ActiveContinuous Glucose Sensor (Dexcom [facility]ensor) [facility] ([facility])Start: 01-05-2024 End: 35-14-6515Xkeghwzmhz Glucose Sensor (Dexcom G7 Sensor) [facility] [place] Indications: Type 2 diabetes mellitus without complication, without long-term current use of insulin 1 each continuously 3 each 1 01/05/2024 06/29/2024 Discontinued (Cost of medication)Start: 22-68-6934Pwttrxdrzl Glucose Sensor (Dexcom G7 Sensor) [facility] [place] Indications: Type 2 diabetes mellitus without complication, without long-term current use of insulin (CMS/HCC) 1 each continuously 3 each 1 01/05/2024 Active Continuous Glucose Sensor (FreeStyle Marlon 2 Sensor) [facility] ([facility])Start: 09-22-2023 End: 57-06-6696Qjemremkuq Glucose Sensor (FreeStyle Marlon 2 Sensor) [facility] [place] Indications: Type 2 diabetes mellitus without complication, without long-term current use of insulin 1 each by Other route every 14 (fourteen) days 6 each 1 09/22/2023 06/29/2024 Discontinued (Cost of medication)Start: 09-22-2023 Continuous Glucose Sensor (FreeStyle Marlon 2 Sensor) [facility] [place] Indications: Type 2 diabetes mellitus without complication, without long-term current use of insulin (CMS/HCC) 1 each by Other route every 14(fourteen) days 6 each 1 09/22/2023 Activeempagliflozin (6 sources)Sodium-Glucose Cotransporter 2 InhibitorJARDIANCE Activefluticasone propionate 0.05 mg/actuat metered dose nasal spray (2 sources)CorticosteroidStart: 09-50-5279afyb 1 spray(s) nasal route once daily Fluticasone Propionate 50 MCG/ACT 1 spray in each nostril Nasally Once a day for 21 days 13 Sep, 2021 ActiveglipiZIDE 5 mg oral tablet (15 sources)SulfonylureaStart: 10-01-2023 End: 53-79-8538xxiq 1 tablet by mouth in the morningglipiZIDE [...] Diuretic, Angiotensin 2 Receptor BlockerStart: 10-01-2023 End: 67-10-1897mdiw 1 tablet by mouth once dailyLosartan-Hydrochlorothiazide 100-25 mg tablet Active 1 TAB PO Daily November 25, 2024 12:00am Complies with drug therapyhydrOXYzine (6 sources)AntihistaminehydrOXYzine HCl ActiveLisinopril (6 sources)Angiotensin Converting Enzyme InhibitorLisinopril Active methylPREDNISolone 4 mg oral tablet (2 sources)CorticosteroidStart: 01-30-2025 End: 00-61-9883hotnmeHAOYCQWcirwe (MEDROL, BELA,) 4 MG tablet Take by mouth. 1 kit 01/30/2025 02/05/2025 ActiveStart: 22-90-6028sgzspkLMDWSKCtrwag 4 MG as directed Orally Once a day for 6 days Nov, Activemupirocin 0.02 mg/mg topical ointment (14 sources)RNA Synthetase Inhibitor AntibacterialStart: 10-06-2023 End: 12-60-5608bnlsudoir (Bactroban) 2 % ointment 10/06/2023 06/29/2024 Discontinued (Therapy completed)Start: 61-64-8695Ciwuulaud 2 % 1 application Externally Three times a day for 7 days Apr, Activeofloxacin 3 mg/ml otic solution (12 sources)Quinolone AntimicrobialStart: 08-11-2023 End: 00-65-4591jfxdipimw (Floxin) 0.3 % otic solution instill 5 (FIVE) DROPS into the affected EAR TWICE DAILY FOR7 DAYS 08/11/2023 06/29/2024 Discontinued (Therapy completed)OZEMPIC, 2 MG/DOSE, 8 MG/3ML SOPN sc injection (6 sources)Start: 87-24-6405PRVJQPA, 2 MG/DOSE, 8 MG/3ML SOPN sc injection Inject 2 mg into the skin every 7 days 08/04/2024 Activepregabalin 50 mg oral capsule (1 source)Start: 27-49-6259yshm 1 capsule by mouth every eight hoursPregabalin 50 mg capsule Active 50 MG PO Every 8 hours January 19, 2025 12:00am Complies with drug therapySemaglutide (1 source)Start: 29-24-4748fhzhie 2 mg by subcutaneous injection every week Semaglutide 2 mg/dose (8 mg/3 mL) pen injector Active 2 MG SUBCUT every week November 25, 2024 12:00am Complies with drug therapySemaglutide, 2 MG/DOSE, (Ozempic, 2 MG/DOSE,) 8 MG/3ML solution pen-injector (20 sources)Start: 96-25-7300Mwppjowbsxe, 2 MG/DOSE, (Ozempic, 2 MG/DOSE,) 8 MG/3ML [...] days 9 mL 08/04/2024 ActiveStart: 05-31-2024 End: 56-80-7938Cfhhevkgbtq, 2 MG/DOSE, (Ozempic, 2 MG/DOSE,) 8 MG/3ML solution pen-injector Indications: Type 2 diabetes mellitus without complication, without long-term current use of insulin Inject 2 mg under theskin every 7 (seven) days 9 mL 1 05/31/2024 08/29/2024 ActiveStart: 85-13-0448Djnlegbrmid, 2 MG/DOSE, (Ozempic, 2 MG/DOSE,) 8 MG/3ML solution pen-injector Indications: Type 2 collette betes mellitus without complication, without long-term current use of insulin (CMS/HCC) Inject 2 mgunder the skin every 7 (seven) days 9 mL 1 01/26/2024 ActiveStart: 01-26-2024 End: 69-63-3789Fuxayrnuxll, 2 MG/DOSE, (Ozempic, 2 MG/DOSE,) 8 MG/3ML solution pen-injector Indications: Type 2 diabetes mellitus without complication, without long-term current use of insulin (CMS/HCC) Inject 2 mgunder the skin every 7 (seven) days 9 mL 1 01/26/2024 04/25/2024 ActiveStart: 26-01-2583Nwlpqemnbji, 2 MG/DOSE, (Ozempic, 2 MG/DOSE,) 8 MG/3ML solution pen-injector Indications: Type 2 diabetes mellitus without complication, without long-term current use of insulin (CMS/HCC) Inject 2 mgunder the skin every 7 (seven) days 9 mL 1 10/01/2023 Activesertraline 50 mg oral tablet (20 sources)Serotonin Reuptake InhibitorStart: 05-61-3398ikit 1 tablet by mouth once dailySertraline 50 mg tablet Active 50 MG PO Daily November 25, 2024 12:00am Complies with drug therapyStart: 10-01-2023 End: 30-20-7180rqfd 1 tablet by mouth once dailysertraline (Zoloft) [...] 25 mg oral tablet (20 sources)Aldosterone AntagonistStart: 18-87-9854Onxnmgfwhzbdlk (Aldactone) 25 mg tablet Active 12.5 MG PO Daily November 25, 2024 12:00am Complies with drug therapyStart: 10-01-2023 End: 08-47-5169oosa 1 tablet by mouth once dailyspironolactone (Aldactone) 25 MG tablet Indications: Essential hypertension Take 1 tablet (25 mg) by mouth Daily 90 tablet 1 09/29/2024 12/28/2024 ActivetiZANidine 4 mg oral capsule (20 sources)Central alpha-2 Adrenergic AgonistStart: 93-15-9593ffom 1 capsule by mouth every eight hours as neededTizanidine 4 mg capsule Active 4 MG PO Every 8 hours as needed November 25, 2024 12:00am Muscle spasm Other muscle spasm Complies with drug therapyStart: 10-01-2023 End: 94-76-0341gwph 1 tablet by mouth every eight hours [...] solution (1 source)Anticholinergic, beta2-Adrenergic AgonistStart: 01-30-2025 End: 59-39-9991ezsn 1 dose by inhalation once1 Dose, Inhalation, Once, 1 dose, On 01/30/25 at 1545, Initiate RT Bronchodilator Protocol: Yes - Inpatient Protocolcarvedilol 25 mg oral tablet (20 sources)alpha-Adrenergic Micheal, beta-Adrenergic BlockerStart: 11-25-2024 End: 16-55-6584ruel 1 tablet by mouth every twelve hours at mealtimeCarvedilol 25 mg tablet Discontinued 25 MG PO Every 12 hours November 25, 2024 12:00am January 19, 2025 3:02pm must administer with a meal/foodStart: 10-01-2023 End: 61-36-7031kvrw 1 tablet by mouth in the morningcarvedilol [...] 100 mL IVPB (1 source)Start: 10-06-2023 End: 98-83-5416aoCTJspoo (ANCEF) 3,000 mg in sodium chloride 0.9 % 100 mL IVPB cefTRIAXone (4 sources)Cephalosporin AntibacterialStart: 17-71-6540Grfnbpwe 500 mg May, 1 ghydroCHLOROthiazide 12.5 mg oral capsule (13 sources)Thiazide Diuretic End: 00-90-8898zdfd 1 capsule by mouth once dailyhydroCHLOROthiazide 12.5 MG capsule Take 1 capsule by mouth daily 10/19/2024 Discontinued (LIST CLEANUP) hydroCHLOROthiazide Activelosartan potassium 25 mg oral tablet (7 sources)Angiotensin 2 Receptor Micheal End: 81-73-7668axae 1 tablet by mouth once dailylosartan (COZAAR) 25 MG tablet Take 1 tablet by mouth daily 10/19/2024 Discontinued (LIST CLEANUP) methylPREDNISolone sodium succ (SOLU-MEDROL) 125 mg in sterile water 2 mL injection (1 source)Start: 01-30-2025 End: 21-78-5553746 mg, IntraVENous, ONCE, On 01/30/25 at 1545, For 1 dose, Reconstitute 125 mg vial with 2 mL diluent.pravastatin sodium 40 mg oral tablet (20 sources)HMG-CoA Reductase InhibitorStart: 10-01-2023 End: 55-27-8533awdv 1 tablet by mouth at bedtimepravastatin (Pravachol) [...] pain; Translations: [RIGHT UPPER QUADRANT PAIN] Onset: 46-09-2074LzfihiskKkqpxvj disorders (20 sources)Mixed anxiety and depressive disorder; Translations: [Other specified anxiety disorders]Onset: 06-05-2023 Resolved: 444463-34-1655LtqhowiIbtxfcv obstructive pulmonary disease and bronchiectasis (2 sources)Bronchitis; Translations: [Bronchitis, not specified as acute or chronic]Onset: 408906-66-4509JintospgWwljnrpd mellitus with complications (13 sources)Type 2 diabetes mellitus; Translations: [Type 2 diabetes mellitus with other specified complication]Onset: 699325-29-4116WvivftoHekjdbqh mellitus without complication (20 sources)Type 2 diabetes mellitus without complications; Translations: [Type 2 diabetes mellitus without complication]Onset: 94-57-4447XwlrfdyQzeuzoctg of lipid metabolism (20 sources)Hyperlipidemia, unspecified; Translations: [Dyslipidemia]Onset: 03-09-2020 Resolved: 752839-88-8723MaqneqiYpjfioezh hypertension (20 sources)Essential (primary) hypertension; Translations: [Essential hypertension]Onset: 93-21-1518YkrvcqcKkbwqz and vomiting (6 sources)Nausea and vomiting; Translations: [Nausea with vomiting, unspecified]EpisodicOther aftercare (1 source)intermediate card tender (current) use of aspirin; Translations: [MOTEL MAID CURRENT USE OF ASPIRIN]Onset: 83-74-9261EcknzthfZwdoc aftercare (1 source)Other prison (current) drug therapy; Translations: [OTH [facility] CURRENT DRUG THERAPY]Onset: 98-61-1521PqlkylmgSorht and ill-defined heart disease (6 sources)Cardiomegaly; Translations: [Cardiomegaly]Onset: ChronicOther connective tissue disease (1 source)Spasm; Translations: [Other muscle spasm]71-64-6829EqwmskolKtbjp ear and sense organ disorders (6 sources)Otitis externa; Translations: [Other otitis externa, bilateral] ChronicOther ear and sense organ disorders (6 sources)Hearing loss; Translations: [Unspecified hearing loss, unspecified ear]Onset: 872253-84-5596TpxoirbJwqqh gastrointestinal disorders (12 sources)Diarrhea; Translations: [Diarrhea, unspecified]EpisodicOther gastrointestinal disorders (1 source)Other fecal abnormalities; Translations: [Other fecal abnormalities] Onset: 32-59-5512NlfscyozYbzfs lower respiratory disease (2 sources)Cough; Translations: [Acute cough]33-69-5809MxevfsqwHkrsv lower respiratory disease (1 source)Wheezing; Translations: [Wheezing]Onset: 55-70-6006ZbqoypzkEzoep lower respiratory disease (1 source)Wheezing; Translations: [Wheezing]10-18-8648HpsithquXljyk nervous system disorders (20 sources)Entrapment of right ulnar nerve; Translations: [Lesion of ulnar nerve, right upper limb]Onset: 141427-53-5905LdtreqyZpilx nervous system disorders (2 sources)Impaired cognition; Translations: [Other symptoms and signs involving cognitive functions and awareness]26-33-6659EmmssebrVjxby nervous system disorders (2 sources)Other symptoms and signs involving cognitive functions and awareness; Translations: [Other symptomsand signs involving cognitive functions and awareness]Onset: 96-39-3473ThdrsrncUwuxl nutritional; endocrine; and metabolic disorders (20 sources)Morbid obesity; Translations: [Morbid (severe) obesity due to excess calories]Onset: 03-09-2020 Resolved: 751002-97-3913EqbelarNgxfa nutritional; endocrine; and metabolic disorders (20 sources)Body mass index 40+ - severely obese; Translations: [Body mass index (BMI) 40.0-44.9, adult]Onset: 331194-86-7641EfmtpkdCnkcx nutritional; endocrine; and metabolic disorders (20 sources)Obesity caused by energy imbalance; Translations: [Morbid (severe) obesity due to excess calories]Onset: 065273-81-0008NzgkdprQyvqu upper respiratory infections (2 sources)Acute maxillary sinusitis, unspecified; Translations: [Acute maxillary sinusitis]Onset: 341675-68-7072VoznrrtzVdtozmqm codes; unclassified (20 sources)Sleep apnea; Translations: [Sleep apnea, unspecified]Onset: 490111-20-5722TwxsppqUqdlhqos codes; unclassified (4 sources)Obstructive sleep apnea syndrome; Translations: [Obstructive sleep apnea (adult) (pediatric)]69-21-4800KffabotJqzkdxff codes; unclassified (2 sources)Obstructive sleep apnea (adult) (pediatric); Translations: [Obstructive sleep apnea (adult) (pediatric)]Onset: 34-78-0029Iytbuwi Spondylosis; intervertebral disc disorders; other back problems (1 source)Other intervertebral disc degeneration, lumbar region; Translations: [Other intervertebral disc degeneration, lumbar region]Onset: 58-00-3845Quplxzb Unclassified (1 source)Low back pain, unspecified; Translations: [Low back pain, unspecified] Onset: 80-17-6269Nsgfflaugzbq (16 sources)Patient on antidepressant monitoring planOnset: Unclassified (16 sources)Baseline PHQ-9Onset: 099957-92-7825Hoqvxlsdpgmy (1 source)Acute cough; Translations: [Acute cough]Onset: 01-30-2025 Past or Other Problems Problem ClassificationProblemDateDocumented DateEpisodic/ChronicGastrointestinal hemorrhage (6 sources)Rectal hemorrhage; Translations: [Hemorrhage of anus and rectum] Onset: 355026-28-7874GttmxnbbIstviecntbspx symptoms and ill-defined conditions (3 sources)DysuriaOnset: 10-10-2021 Resolved: 80-75-8024EnnteirwVdmiyfhtousow and screening for infectious disease (20 sources)Contact with and (suspected) exposure to other viral communicable diseases; Translations: [Methicillin resistant staphylococcus aureus positive] Onset: 02-19-2021 Resolved: 49-75-7122EihvjojsQnuajambpug chest pain (6 sources)Precordial pain; Translations: [Precordial pain]Onset: 08-06-2019 33-84-9923VcruthxbKfbir connective tissue disease (20 sources)Pain in right heel; Translations: [Pain in right foot]Onset: 679159-66-0465GeyinboqMeyya gastrointestinal disorders (20 sources)Stool DNA-based colorectal cancer screening positive; Translations: [Other fecal abnormalities]Onset: 742742-88-0843GrflqpgoZwgvq gastrointestinal disorders (20 sources)Constipation; Translations: [Constipation, unspecified]Onset: 866488-65-8038CywtuoucFebex lower respiratory disease (6 sources)Dyspnea; Translations: [Shortness of breath]Onset: 08-06-2019 38-63-9649FwdkoikgJptzk nervous system disorders (1 source)Postoperative pain ; Translations: [Other acute postprocedural pain] 11-84-8103ZpeltiwuAuedj nutritional; endocrine; and metabolic disorders (20 sources)Hyperuricemia; Translations: [Hyperuricemia without signs of inflammatory arthritis and tophaceous disease]Onset: EpisodicOther nutritional; endocrine; and metabolic disorders (2 sources)Hyperuricemia without signs of inflammatory arthritis and tophaceous disease; Translations: [Hyperuricemia without signs of inflammatory arthritis and tophaceous disease]Onset: 51-65-2518PoaicsvqZqytk screening for suspected conditions (not mental disorders or infectious disease) (20 sources)Patient encounter status; Translations: [Encounter for screening for malignant neoplasm of colon]Onset: 068162-78-9020WigvoxtkMoowzedl codes; unclassified (6 sources)History of chest pain; Translations: [Personal history of other specified conditions]Onset: 414240-50-0678GmxjfjnzRnqv and subcutaneous tissue infections (1 source)Cellulitis of right toeOnset: 05-10-2021 Resolved: 18-87-5903UyuodfjdCzfcvbvypmu; intervertebral disc disorders; other back problems (20 sources)Acute back pain with sciatica; Translations: [Lumbago with sciatica, right side]Onset: 764388-71-3711OrdfqsjwSlnowrtwobmd (1 source)Patient encounter ckmiym02-54-4265Xtumlzc tract infections (3 sources)Urinary tract infection, site not specifiedOnset: 10-10-2021 Resolved: 77-79-3739ScrsnvtdYkgtv infection (2 sources)COVID-19Onset: 02-19-2021 Resolved: 02-19-2021 Results Test NameValueInterpretationReference RangeFacilityBMPon 64-58-5276Jcrmo gap [Moles/Vol]9 mmol/L9 - 16 mmol/LBon [facility]tering Health HamiltonCalcium [Mass/Vol]9.1 mg/dL8.6 - 10.4 mg/dLBon [facility] HamiltonChloride [Moles/Vol]102 mmol/L98 - 107 mmol/LBon [facility] HamiltonCO2 [Moles/Vol]29 mmol/L20 - 31 mmol/LBon [facility] HamiltonCreatinine [Mass/Vol]0.7 mg/dL0.70 - 1.20 mg/dLBon [facility] Health HamiltonEst, Glom Filt Rate- PINFBon Kettering Health HamiltonComment on above: These results are not intended [...] that affects renal tubular secretion. Glucose [Mass/Vol]112 mg/pKPjqt82 - 99 mg/dLBon [facility] Interpretation and review of laboratory resultsAbnormalLewisgale Hospital Pulaski Potassium [Moles/Vol]3.7 mmol/L3.7 - 5.3 mmol/LBon [facility] HamiltonSodium [Moles/Vol]140 mmol/L136 - 145 mmol/LBon [facility] HamiltonUrea nitrogen [Mass/Vol]12 mg/dL6 - 20 mg/dLBon [facility] HamiltonUrea nitrogen/Creatinine [Mass ratio]17 mg/mg9 - 20Bon [facility] HospitalBasic Metabolic Profon [id number] gap [Moles/Vol]9 mmol/LNormal9-16[facility] Bucyrus HospitalComment on above:Performed By: #### ABEBE, SALENA, KEIKOI #### [facility] [address] [place] [address] Contracting Engineer: Elvis Griffiths MD #### PSAS, URNMAB, LIPR #### [facility] [employer] [facility] [place] [address] Contracting Engineer: Brandon Mancia MDBUN/CRE Odans68Iooqbd6-27Ixzvd [facility] Comment on above:Performed By: #### CDP, CP, URI #### [address] [place] [phone] Contracting Engineer: Elvis Griffiths MD #### PSAS, URNMAB, LIPR #### [facility] [employer] [address] [place] [address] Contracting Engineer: POLLY Pricealcium [Mass/Vol]9.1 mg/dLNormal8.6-10.4[facility] Bucy[facility] HospitalComment on above:Performed By: #### CDP, CP, URI #### [address] [place] [phone] ( Contracting Engineer: Elvis Griffiths MD #### PSAS, URNMAB, LIPR #### [address] [address] Contracting Engineer: POLLY Pricehloride [Moles/Vol]102 mmol/GIcxbwj15-197YsfypAvita Health System Bucyrus HospitalComment on above:Performed By: #### AEBBE, CP, URI #### [address] [place] [phone] Contracting Engineer: Elvis Griffiths MD #### PSAS, URNMAB, LIPR #### [place] [address] [place], [place] 5085808 Contracting Engineer: Brandon Mancia MDCO2 [Moles/Vol]29 mmol/JBqdcrd60-34LtsnmAvita Health System Bucyrus HospitalComment on above:Performed By: #### CDP, CP, URI #### [address] [place] [phone] Contracting Engineer: Elvis Griffiths MD #### PSAS, URNMAB, LIPR #### [place] [address] [place], [place] [phone] Contracting Engineer: POLLY Pricereatinine [Mass/Vol]0.7 mg/dLNormal0.70-1.20 [facility] HospitalComhavenwyck hospital on above:Performed By: #### ASLENA LOMAS, URI #### [address] [place] [address] Contracting Engineer: Elvis Griffiths MD #### PSAWaldo, URNMAB, LIPR #### [place] [address] [place], [place] [phone] Contracting Engineer: Brandon Mancia MDGFR/1.73 sq M.predicted among non-blacks MDRD (S/P/Bld) [Vol rate/Area]mL/min/{1.73_m2}Normal>60[facility] HospitalComment on above:Result Comment: These results are [...] secretion.Performed By: #### SALENA LOMAS, URI #### [address] [place] [address] Contracting Engineer: Elvis Griffiths MD #### PSAWaldo, URNMAB, LIPR #### [place] [address] [place], [place] [phone] Contracting Engineer: Brandon Mancia MDGlucose [Mass/Vol]112 mg/iBPdxw68-19Uftfz[address] on above:Performed By: #### SALENA LOMAS, URI #### [address] [place] [address] Contracting Engineer: Elvis Griffiths MD #### PSAS, URNMAB, LIPR #### [place] [address] [place], [place] 7777508 Contracting Engineer: LOGAN Priceotassium [Moles/Vol]3.7 mmol/LNormal3.7-5.3 [facility] HospitalComment on above:Performed By: #### SALENA LOMAS, URI #### [address] [place] [phone] Contracting Engineer: Elvis Griffiths MD #### PSAWaldo, URNMAB, LIPR #### [place] [phone] Contracting Engineer: ALYSHA Priceodium [Moles/Vol]140 mmol/GDnjasi075-540HwklpAvita Health System Bucyrus HospitalComment on above:Performed By: #### SALENA LOMAS, URI #### [address] [place] [address] Contracting Engineer: Elvis Griffiths MD #### LOUISA MARLYEAB, LIPR #### [place] [phone] Contracting Engineer: Brandon Mancia MDUrea nitrogen [Mass/Vol]12 mg/dLNormal6-20[facility] HospitalComment on above:Performed By: #### SALENA LOMAS, URI #### [address] [place] [address] Contracting Engineer: Elvis Griffiths MD #### DONELL URNMAB, LIPR #### [place] [phone] Contracting Engineer: Brandon Mancia [facility] with Auto Differentialon [id number] (Bld) [#/Vol]0.03 10*3/uLBon Secours Shelby Memorial HospitalBasophils/100 WBC (Bld)0 %0 - 2 %[facility] HealthEosinophils (Bld) [#/Vol]0.19 10*3/uLBon Secours [facility]cy HealthEosinophils/100 WBC (Bld)2 %1 - 4 %[facility] Health Erythrocyte distribution width (RBC) [Ratio]12.7 %11.8 - 14.4 %[facility] Jacksony HealthHematocrit (Bld) [Volume fraction]40.5 %Low40.7 - 50.3 %[facility] HealthHemoglobin (Bld) [Mass/Vol]13.8 g/dL13.0 - 17.0 g/dLBon Secours Shelby Memorial HospitalImmature granulocytes (Bld) [#/Vol]0.03 10*3/uLBon [facility] Health Immature granulocytes/100 WBC (Bld)0 %0[facility] HealthInterpretation and review of laboratory resultsAbnormalBon [facility] Jacksony HealthLymphocytes/100 WBC (Bld)27 %24 - 43 %[facility] HealthLymphocytes/100 WBC (Bld)2.40 %[facility] SecUniversity Hospitals Health SystemH (RBC) [Entitic mass]29.5 pg25.2 - 33.5 pgBon Secours Joint Township District Memorial HospitalHC (RBC) [Mass/Vol]34.1 g/dL28.4 - 34.8 g/dLBon SecUniversity Hospitals Health SystemV (RBC) [Entitic vol]86.5 fL82.6 - 102.9 fLBon [facility] Monocytes/100 WBC (Bld)6 %3 - 12 %[facility] HealthMonocytes/100 WBC (Bld)0.49 %[facility] HospitalNeutrophils/100 WBC (Bld)65 %36 - 65 %[facility] HospitalNucleated RBC/100 WBC (Bld) [Ratio]0.0 %0.0 per 100 WBCBon Secours [facility] HealthPlatelet mean volume (Bld) [Entitic vol]9.3 fL8.1 - 13.5 fL [facility] HealthPlatelets (Bld) [#/Vol]227 10*3/uLBon Secours [facility] Center – Jacksony HealthRBC (Bld) [#/Vol]4.68 10*6/uL4.21 - 5.77 m/uLBon [facility] Segmented neutrophils/100 WBC (Bld)5.84 %Bon [facility] HamiltonWBC other (Bld) [#/Vol]9.0Bon [facility] HamiltonBon [facility]tering Health HamiltonCB with Diffon [id number]. Basophil0.03 k/uLNormal0.00-0.20[facility] HospitalComment on above:Performed By: #### SALENA LOMAS, URI #### [facility] [address] [place] [address] Dr. [place], [place] [phone] Contracting Engineer: Elvis Griffiths MD #### JALEN MARLEY, LIPR #### [address] [phone] Contracting Engineer: Raymundo Price.Imm.Granulocyte0.03 k/uLNormal0.00-0.30[facility] HospitalComment on above:Performed By: #### SALENA LOMAS, URI #### [address] [place], [place] 5543683 Contracting Engineer: Elvis Griffiths MD #### JALEN MARLEY, LIPR #### [address] [phone] Contracting Engineer: Raymundo Price.Neutrophil (Seg)5.84 k/uLNormal1.50-8.10 [facility] HospitalComment on above:Performed By: #### SALENA LOMAS, URI #### [address] [place] [address] Contracting Engineer: Elvis Griffiths MD #### JALEN MARLEY, LIPR #### [address] [phone] Contracting Engineer: Brandon Mancia MDBasophils/100 WBC (Bld)0 %Normal0-2MUniversity Hospitals Geauga Medical CenterComment on above:Performed By: #### CDP, CP, URI #### [address] [place] [phone] Contracting Engineer: Elvis Griffiths MD #### PSAS, URNMAB, LIPR #### [address] [address] Contracting Engineer: Brandon Mancia MDEosinophils (Bld) [#/Vol]0.19 10*3/uLNormal 0.00-0.44[facility] HospitalComment on above:Performed By: #### CDP, CP, URI #### [address] [place] [phone] Contracting Engineer: Elvis Griffiths MD #### PSAS, URNMAB, LIPR #### [place] [address] Contracting Engineer: Brandon Mancia MDEosinophils/100 WBC (Bld)2 %Normal1-4[facility] HospitalComment on above:Performed By: #### SALENA LOMAS, URI #### [address] [place] [phone] Contracting Engineer: Elvis Griffiths MD #### PSAS, URNMAB, LIPR #### [place] [address] Contracting Engineer: Brandon Mancia MDErythrocyte distribution width (RBC) [Ratio]12.7 %Eukrfi25.8-14.4[facility] HospitalComment on above:Performed By: #### ABEBE CP, URI #### [address] [place] [phone] Contracting Engineer: Elvis Griffiths MD #### PSAS, URNMAB, LIPR #### [address] [address] Contracting Engineer: Brandon Mancia MDHematocrit (Bld) [Volume fraction]40.5 %Low 40.7-50.3MUniversity Hospitals Geauga Medical CenterComment on above:Performed By: #### SALENA LOMAS, URI #### [address] [place] [phone] Contracting Engineer: Elvis Griffiths MD #### JALEN MARLEY, LIPR #### [address] [phone] Contracting Engineer: Brandon Mancia MDHemoglobin (Bld) [Mass/Vol]13.8 g/dLNormal 13.0-17.0[facility] HospitalComment on above:Performed By: #### SALENA LOMAS, URI #### [address] [place] [phone] Contracting Engineer: Elvis Griffiths MD #### JALEN MARLEY, LIPR #### [address] [phone] Contracting Engineer: Brandon Mancia MDImmature granulocytes/100 WBC (Bld)0 %Normal0 [facility] on above:Performed By: #### SALENA LOMAS, URI #### [address] [place] [phone] Contracting Engineer: Elvis Griffiths MD #### JALEN MARLEY, LIPR #### [address] [phone] Contracting Engineer: Brandon Mancia MDLymphocytes (Bld) [#/Vol]2.40 10*3/uLNormal 1.10-3.70[facility] HospitalComhavenwyck hospital on above:Performed By: #### SALENA LOMAS, URI #### [address] [place] [phone] Contracting Engineer: Elvis Griffiths MD #### PSAS, URNMAB, LIPR #### [address] [phone] Contracting Engineer: Brandon Mancia MDLymphocytes/100 WBC (Bld)27 %Xrylnu67-60RxdgdAvita Health System Bucyrus HospitalComment on above:Performed By: #### SALENA LOMAS, URI #### [address] [place] [phone] Contracting Engineer: Elvis Griffiths MD #### PSAS, URNMAB, LIPR #### [address] [phone] Contracting Engineer: DWAYNE Price (RBC) [Entitic mass]29.5 cdYbdzsz49.2-33.5 [facility] HospitalComment on above:Performed By: #### SALENA LOMAS, URI #### [address] [place] [address]80483 Contracting Engineer: Elvis Griffiths MD #### LOUISA MARLEYAB, LIPR #### [place] [address] Contracting Engineer: DWAYNE PriceC (RBC) [Mass/Vol]34.1 g/qPPbruty60.4-34.8 [facility] HospitalComment on above:Performed By: #### SALENA LOMAS, URI #### [address] [place] [phone] Contracting Engineer: Elvis Griffiths MD #### PSAWaldo, URNMAB, LIPR #### [place] [address] Contracting Engineer: LANDON PriceCV (RBC) [Entitic vol]86.5 lMCwiius00.6-102.9 [facility] HospitalComment on above:Performed By: #### SALENA LOMAS, URI #### [address] [place], [place] 9700483 Contracting Engineer: Elvis Griffiths MD #### PSAS, URNMAB, LIPR #### [address] [address] Contracting Engineer: Brandon Mancia MDMonocytes (Bld) [#/Vol]0.49 10*3/uLNormal 0.10-1.20[facility] HospitalComment on above:Performed By: #### CDP, CP, URI #### [address] [place], [place] 0499983 Contracting Engineer: Elvis Griffiths MD #### DONELL, URNMAB, LIPR #### [address] [address] Contracting Engineer: LANDON Priceonocytes/100 WBC (Bld)6 %Normal3-12[facility] HospitalComment on above:Performed By: #### ABEBE, CP, URI #### [address] [place], [place] 3886683 Contracting Engineer: Elvis Griffiths MD #### PSAWaldo, URNMAB, LIPR #### [address] [address] Contracting Engineer: Brandon Mancia MDNeutrophil (Seg)65 %Soxafw94-83EfsrcAvita Health System Bucyrus HospitalComment on above:Performed By: #### CDP, CP, URI #### [address] [place], [place] 9332383 Contracting Engineer: Elvis Griffiths MD #### PSAWaldo, URNMAB, LIPR #### [address] [address] Contracting Engineer: Brandon Mancia MDNRBC Automated0.0 per 100 WBCNormal0.0[facility] HospitalComment on above:Performed By: #### CDP, CP, URI #### [address] [place] [address] Contracting Engineer: Elvis Griffiths MD #### PSAS, URNMAB, LIPR #### [address] [address] Contracting Engineer: Adelaida Price mean volume (Bld) [Entitic vol]9.3 fL Normal8.1-13.5[facility] on above:Performed By: #### ABEBE, CP, URI #### [address] [place] [address] Contracting Engineer: Elvis Griffiths MD #### PSAS, URNMAB, LIPR #### [address] [address] Contracting Engineer: Thalia Prcie (Bld) [#/Vol]227 10*3/sAOelkxy802-334 [facility] on above:Performed By: #### SALENA LOMAS, URI #### [address] [place] [address] Contracting Engineer: Elvis Griffiths MD #### PSAS, URNMAB, LIPR #### [address] [address] Contracting Engineer: MIN PriceBC (Bld) [#/Vol]4.68 10*6/uLNormal4.21-5.77 [facility] on above:Performed By: #### ABEBE, CP, URI #### [address] [place] [address] Contracting Engineer: Elvis Griffiths MD #### PSAS, URNMAB, LIPR #### [address] [address] Contracting Engineer: Brandon Mancia MDWBC (Bld) [#/Vol]9.0 10*3/uLNormal3.5-11.3[facility] For Special CareComment on above:Performed By: #### CDP, CP, URI #### [facility] [address] [place] [address] Contracting Engineer: Elvis Griffiths MD #### PSAS, URNMAB, LIPR #### [facility] [address] [place], [place] [phone] Contracting Engineer: Derek Price XR Chest AP single viewon . No acute cardiopulmonary process. [facility] CONSOLIDATEDEXAM: 1 VIEW(S) XRAY OF THE CHEST 01/30/2025 03:07:52 PM COMPARISON: None available. CLINICAL HISTORY: cough. FINDINGS: LUNGS AND PLEURA: No focal pulmonary opacity. No pulmonary edema. No pleural effusion. No pneumothorax. HEART AND MEDIASTINUM: No acute abnormality of the cardiac and mediastinal silhouettes. BONES AND SOFT TISSUES: No acute osseous abnormality. [facility] Fito Brian MD - 01/30/2025 EXAM: [...] abnormality. IMPRESSION: 1. No acute cardiopulmonary process. [facility] PulaskiRadiology Study observation (narrative)[facility] XR Chest AP single viewOrdered By: Fito Woody on 01-30-2025 [facility] [employer] Work Phone: [phone] CHEST PORTABLEon [id number] CHEST PORTABLEEXAM: 1 VIEW(S) XRAY OF THE [...] Signed by: Fito Woody MD 01/30/25 Final resultNormalMerGreenwich HospitalCOVID-19, Rapidon [id number]-CoV-2 (COVID-19) RdRp gene ADELINA+probe Ql (Resp)Not detectedNot [facility] on above: Rapid NAAT: The specimen is [...] Methodology: Isothermal Nucleic Acid Amplification Specimen Description.NASOPHARYNGEAL SWABVCU Health Community Memorial HospitalFlu A/B Ag Detectionon [id number] A Ag DetectionNegativeNormalNEG [facility] on above:Result Comment: for Influenza A Antigen Performed By: #### SALENA LOMAS, URI #### [facility] [address] [place] [address] Contracting Engineer: Elvis Griffiths MD #### LOUISA MARLEYAB, LIPR #### [address] [address] Contracting Engineer: Brandon Mancia MDFlu B Ag DetectionNegativeNormalNEGGreen Cross Hospital on above:Result Comment: for Influenza B Antigen.Performed By: #### SALENA LOMAS, URI #### [address] [place] [address] Contracting Engineer: Elvis Griffiths MD #### JALEN MARLEY, LIPR #### [facility] [employer] [facility] [place], [place] 1909[address] Contracting Engineer: Zeenat Price influenza A/B antigenson [id number] Ag Ql (Unsp spec)NegativeNEGATIVEBon [facility] HamiltonComment on above:for Influenza A AntigenFLUBV Ag Ql (Unsp spec)NegativeNEGATIVEBon [facility] HamiltonComment on above:for Influenza B Antigen.Bon [facility] [id number]-CoV-2 (COVID-19) RNA ADELINA+probe Ql (Unsp spec)Not detectedNormalNOTDESelect Medical Specialty Hospital - Southeast Ohioment on above:Result Comment: Rapid NAAT: The specimen [...] AmplificationPerformed By: #### SALENA LOMAS, URI #### [address] [place] [address] Contracting Engineer: Elvis Griffiths MD #### JALEN MARLEY, LIPR #### [facility] [employer] [facility] [place], [place] [phone] Contracting Engineer: POLLY Price with Auto Differentialon [id number] (Bld) [#/Vol]0.03 10*3/uLBon Secours Shelby Memorial HospitalBasophils/100 WBC (Bld)0 %0 - 2 %Bon SecMansfield HospitalEosinophils (Bld) [#/Vol]0.13 10*3/uLBon Secours Shelby Memorial HospitalEosinophils/100 WBC (Bld)1 %1 - 4 %[facility] Erythrocyte distribution width (RBC) [Ratio]12.7 %11.8 - 14.4 %[facility] PulaskiHematocrit (Bld) [Volume fraction]45.5 %40.7 - 50.3 %[facility] PulaskiHemoglobin (Bld) [Mass/Vol]15.2 g/dL13.0 - 17.0 g/dLBon Secours Shelby Memorial HospitalImmature granulocytes (Bld) [#/Vol]0.06 10*3/uLBon [facility] Immature granulocytes/100 WBC (Bld)1 %Wrcf4Efk [facility] Interpretation and review of laboratory resultsAbnormalBon [facility] Lymphocytes/100 WBC (Bld)17 %Low24 - 43 %[facility] PulaskiLymphocytes/100 WBC (Bld)2.17 %[facility] Washington HospitalH (RBC) [Entitic mass]29.0 pg25.2 - 33.5 pgBon Mercy HealthHC (RBC) [Mass/Vol]33.4 g/dL28.4 - 34.8 g/dLBon SecUniversity Hospitals Health SystemV (RBC) [Entitic vol]86.8 fL82.6 - 102.9 fLBon [facility] Health HamiltonMonocytes/100 WBC (Bld)7 %3 - 12 %[facility] Monocytes/100 WBC (Bld)0.94 %[facility] PulaskiNeutrophils/100 WBC (Bld)74 %High36 - 65 %Bon [facility] HamiltonNucleated RBC/100 WBC (Bld) [Ratio]0.0 % 0.0 per 100 WBCBon [facility]tering Health HamiltonPlatelet mean volume (Bld) [Entitic vol] 10.3 fL8.1 - 13.5 fLBon [facility] Health HamiltonPlatelets (Bld) [#/Vol]232 10*3/uL Bon [facility] HamiltonRBC (Bld) [#/Vol]5.24 10*6/uL4.21 - 5.77 m/uLLewisgale Hospital PulaskiSegmented neutrophils/100 WBC (Bld)9.38 %HighLewisgale Hospital PulaskiWBC other (Bld) [#/Vol]12.7HighNaval Medical Center Portsmouth with Diffon [id number]. Basophil0.03 k/uLNormal0.00-0.20[facility] HospitalComment on above:Performed By: #### B12, VD25, FT3, FT4 #### [place] [address] Contracting Engineer: Brandon Mancia MD #### CDP, TSH, CP #### [address] [place] [address] Contracting Engineer: Raymundo Resendiz.Imm.Granulocyte0.06 k/uLNormal0.00-0.30[facility] HospitalComment on above:Performed By: #### B12, VD25, FT3, FT4 #### [place] [address] Contracting Engineer: Brandon Mancia MD #### CDP, TSH, CP #### [address] [place] [phone] Contracting Engineer: Raymundo Resendiz.Neutrophil (Seg)9.38 k/uLHigh1.50-8.10[facility] HospitalComment on above:Performed By: #### B12, VD25, FT3, FT4 #### [place] [address] Contracting Engineer: Brandon Mancia MD #### CDP, TSH, CP #### [address] [place] [phone] Contracting Engineer: Elvis Griffiths MDBasophils/100 WBC (Bld)0 %Normal0-2MUniversity Hospitals Geauga Medical CenterComment on above:Performed By: #### B12, VD25, FT3, FT4 #### [address] [address] Contracting Engineer: Brandon Mancia MD #### CDP, TSH, CP #### [address] [place] [phone] Contracting Engineer: Elvis Griffiths MDEosinophils (Bld) [#/Vol]0.13 10*3/uLNormal 0.00-0.44[facility] HospitalComment on above:Performed By: #### B12, VD25, FT3, FT4 #### [place] [address] Contracting Engineer: Brandon Mancia MD #### CDP, TSH, CP #### [address] [place] [phone] Contracting Engineer: Elvis Griffiths MDEosinophils/100 WBC (Bld)1 %Normal1-4[facility] HospitalComment on above:Performed By: #### B12, VD25, FT3, FT4 #### [address] [address] Contracting Engineer: Brandon Mancia MD #### CDP, TSH, CP #### [address] [place] [phone] Contracting Engineer: Elvis Griffiths MDErythrocyte distribution width (RBC) [Ratio]12.7 % Lmyduw87.8-14.4[facility] HospitalComhavenwyck hospital on above:Performed By: #### B12, VD25, FT3, FT4 #### [address] [address] Contracting Engineer: Brandon Mancia MD #### CDP, TSH, CP #### [address] [place] [address] Contracting Engineer: Elvis Griffiths MDHematocrit (Bld) [Volume fraction]45.5 %Normal 40.7-50.3MercConnecticut HospiceComment on above:Performed By: #### B12, VD25, FT3, FT4 #### [address] [address] Contracting Engineer: Brandon Mancia MD #### CDP, TSH, CP #### [address] [place] [address] Contracting Engineer: Elvis Griffiths MDHemoglobin (Bld) [Mass/Vol]15.2 g/dLNormal 13.0-17.0[facility] HospitalComment on above:Performed By: #### B12, VD25, FT3, FT4 #### [address] [address] Contracting Engineer: Brandon Mancia MD #### CDP, TSH, CP #### [address] [place] [address] Contracting Engineer: Elvis Griffiths MDImmature granulocytes/100 WBC (Bld)1 %Ivnr1LfxokAvita Health System Bucyrus HospitalComment on above:Performed By: #### B12, VD25, FT3, FT4 #### [address] [address] Contracting Engineer: Brandon Mancia MD #### CDP, TSH, CP #### [address] [place] [address] Contracting Engineer: Elvis Griffiths MDLymphocytes (Bld) [#/Vol]2.17 10*3/uLNormal 1.10-3.70[facility] HospitalComment on above:Performed By: #### B12, VD25, FT3, FT4 #### [address] [address] Contracting Engineer: Brandon Mancia MD #### CDP, TSH, CP #### [address] [place], [place] 7574283 Contracting Engineer: Elvis Griffiths MDLymphocytes/100 WBC (Bld)17 %Dpl25-66DjmhbAvita Health System Bucyrus HospitalComment on above:Performed By: #### B12, VD25, FT3, FT4 #### [address] [address] Contracting Engineer: Brandon Mancia MD #### CDP, TSH, CP #### [address] [place] [phone] Contracting Engineer: DWAYNE Resendiz (RBC) [Entitic mass]29.0 hePvprhq75.2-33.5 [facility] HospitalComment on above:Performed By: #### B12, VD25, FT3, FT4 #### [address] [address] Contracting Engineer: Brandon Mancia MD #### CDP, TSH, CP #### [address] [place], [place] 7794483 Contracting Engineer: DWAYNE ResendizC (RBC) [Mass/Vol]33.4 g/hLDuoynv99.4-34.8[facility] on above:Performed By: #### B12, VD25, FT3, FT4 #### [address] [address] Contracting Engineer: Brandon Mancia MD #### CDP, TSH, CP #### [address] [place], [place] 1032883 Contracting Engineer: LANDON ResendizCV (RBC) [Entitic vol]86.8 aBTkbfum67.6-102.9 [facility] HospitalComment on above:Performed By: #### B12, VD25, FT3, FT4 #### [address] [address] Contracting Engineer: Brandon Mancia MD #### CDP, TSH, CP #### [address] [place], [place] 7804783 Contracting Engineer: Elvis Griffiths MDMonocytes (Bld) [#/Vol]0.94 10*3/uLNormal0.10-1.20 [facility] HospitalComment on above:Performed By: #### B12, VD25, FT3, FT4 #### [address] [address] Contracting Engineer: Brandon Mancia MD #### CDP, TSH, CP #### [address] [place] [phone] Contracting Engineer: Elvis Griffiths MDMonocytes/100 WBC (Bld)7 %Normal3-12[facility] HospitalComment on above:Performed By: #### B12, VD25, FT3, FT4 #### [address] [address] Contracting Engineer: Brandon Mancia MD #### CDP, TSH, CP #### [address] [place] [id number] Contracting Engineer: Elvis Griffiths MDNeutrophil (Seg)74 %Zljq15-61IpxotAvita Health System [facility] Hospital Comment on above:Performed By: #### B12, VD25, FT3, FT4 #### [address] [address] Contracting Engineer: Brandon Mancia MD #### CDP, TSH, CP #### [address] [place] [address]483 Contracting Engineer: Elvis Griffiths MDNRBC Automated0.0 per 100 WBCNormal0.0[facility] HospitalComhavenwyck hospital on above:Performed By: #### B12, VD25, FT3, FT4 #### [address] [address] Contracting Engineer: Brandon Mancia MD #### CDP, TSH, CP #### [address] [place] [address] Contracting Engineer: Adelaida Resendiz mean volume (Bld) [Entitic vol]10.3 fL Normal8.1-13.5[facility] HospitalComhavenwyck hospital on above:Performed By: #### B12, VD25, FT3, FT4 #### [address] [address] Contracting Engineer: Brandon Mancia MD #### CDP, TSH, CP #### [address] [place] [address] Contracting Engineer: Thalia Resendiz (Bld) [#/Vol]232 10*3/lXRrfdlv594-762 [facility] on above:Performed By: #### B12, VD25, FT3, FT4 #### [address] [address] Contracting Engineer: Brandon Mancia MD #### CDP, TSH, CP #### [address] [place] 44[address]483 Contracting Engineer: NORBERTO Resendiz (Bld) [#/Vol]5.24 10*6/uLNormal4.21-5.77[facility] HospitalComhavenwyck hospital on above:Performed By: #### B12, VD25, FT3, FT4 #### [address] [address] Contracting Engineer: Brandon Mancia MD #### CDP, TSH, CP #### [address] [place], [place] 9702683 Contracting Engineer: Elvis Griffiths MDNORTH SHORE [facility] (d) [#/Vol]12.7 10*3/uLHigh3.5-11.3MUniversity Hospitals Geauga Medical CenterComment on above:Performed By: #### B12, VD25, FT3, FT4 #### [address] [address] Contracting Engineer: Brandon Mancia MD #### CDP, TSH, CP #### [address] [place], [place] 9436483 Contracting Engineer: POLLY Resendizacadia healthcare Metabolic Profon 83-41-3998Zxnkmdq [Mass/Vol] 4.0 g/dLNormal3.5-5.2MUniversity Hospitals Geauga Medical CenterComment on above:Performed By: #### B12, VD25, FT3, FT4 #### [facility] [employer] [address] [place] [address] Contracting Engineer: Brandon Mancia MD #### CDP, TSH, CP #### [address] [place], [place] 5772283 Contracting Engineer: Elvis Griffiths MDAlbumin/Glob Ratio1.3Igoppr6.0-2.5[facility] HospitalComment on above:Performed By: #### B12, VD25, FT3, FT4 #### [facility] [place] [facility] [employer] [address] [place] [address] Contracting Engineer: Brandon Mancia MD #### CDP, TSH, CP #### [address] [place] [address] Contracting Engineer: Julius Resendizkaline Rdld424 U/JJzkaww45-947SwekeAvita Health System Bucyrus HospitalComment on above:Performed By: #### B12, VD25, FT3, FT4 #### [address] [address] Contracting Engineer: Brandon Mancia MD #### CDP, TSH, CP #### [address] [place] [address] Contracting Engineer: Elvis Griffiths MDALT [Catalytic activity/Vol]18 U/JZctpvv06-25YlftvAvita Health System Bucyrus HospitalComment on above:Performed By: #### B12, VD25, FT3, FT4 #### [address] [address] Contracting Engineer: Brandon Mancia MD #### CDP, TSH, CP #### [address] [place] 4480483 Contracting Engineer: Elvis Griffiths MDAnion gap [Moles/Vol]11 mmol/LNormal9-16[facility] HospitalComment on above:Performed By: #### B12, VD25, FT3, FT4 #### [address] [address] Contracting Engineer: Brandon Mancia MD #### CDP, TSH, CP #### [address] [place] [address] Contracting Engineer: Elvis Griffiths MDAST [Catalytic activity/Vol]18 U/WZdxxfo88-66IpxzjAvita Health System Bucyrus HospitalComment on above:Performed By: #### B12, VD25, FT3, FT4 #### [address] [address] Contracting Engineer: Brandon Mancia MD #### CDP, TSH, CP #### [address] [place] [address] Contracting Engineer: Elvis Griffiths MDBilirubin [Mass/Vol]0.5 mg/dLNormal0.00-1.20[facility] HospitalComment on above:Performed By: #### B12, VD25, FT3, FT4 #### [address] [address] Contracting Engineer: Brandon Mancia MD #### CDP, TSH, CP #### [address] [place], [place] 7489883 Contracting Engineer: Elvis Griffiths MDBUN/CRE Qerwg73Hlmsrt3-91[facility] Comment on above:Performed By: #### B12, VD25, FT3, FT4 #### [address] [address] Contracting Engineer: Brandon Mancia MD #### CDP, TSH, CP #### [address] [place], [place] 1296783 Contracting Engineer: POLLY Resendizalcium [Mass/Vol]8.8 mg/dLNormal8.6-10.4Av[facility] HospitalComment on above:Performed By: #### B12, VD25, FT3, FT4 #### [address] [address] Contracting Engineer: Brandon Mancia MD #### CDP, TSH, CP #### [address] [place], [place] 0441083 Contracting Engineer: POLLY Resendizhloride [Moles/Vol]101 mmol/RYzjzzj70-601UhtpwAvita Health System Bucyrus HospitalComment on above:Performed By: #### B12, VD25, FT3, FT4 #### [address] [address] Contracting Engineer: Brandon Mancia MD #### CDP, TSH, CP #### [address] [place], [place] 1656983 Contracting Engineer: Elvis Griffiths MDCO2 [Moles/Vol]27 mmol/NWkwndj02-39EhtbsAvita Health System Bucyrus HospitalComment on above:Performed By: #### B12, VD25, FT3, FT4 #### [place] [address] [place] [address] Contracting Engineer: Brandon Mancia MD #### CDP, TSH, CP #### [address] [place] [address] Contracting Engineer: POLLY Resendizreatinine [Mass/Vol]0.8 mg/dLNormal0.70-1.20[facility] HospitalComment on above:Performed By: #### B12, VD25, FT3, FT4 #### [place] [address] [place] [address] Contracting Engineer: Brandon Mancia MD #### CDP, TSH, CP #### [address] [place] [address] Contracting Engineer: Elvis Griffiths MDGFR/1.73 sq M.predicted among non-blacks MDRD (S/P/Bld) [Vol rate/Area]mL/min/{1.73_m2}Normal>60Av[facility] HospitalComment on above:Result Comment: These results are [...] By: #### B12, VD25, FT3, FT4 #### [place] [address] [place], [place] 8031108 Contracting Engineer: Brandon Mancia MD #### CDP, TSH, CP #### [address] [place] [address] Contracting Engineer: Elvis Griffiths MDGlucose [Mass/Vol]155 mg/yQFahv59-35Siexk [facility] HospitalComment on above:Performed By: #### B12, VD25, FT3, FT4 #### [address] [address] Contracting Engineer: Brandon Mancia MD #### CDP, TSH, CP #### [address] [place] 4480483 Contracting Engineer: LOAGN Resendizotassium [Moles/Vol]3.5 mmol/LLow3.7-5.3[facility] For Special CareComment on above:Performed By: #### B12, VD25, FT3, FT4 #### [address] [address] Contracting Engineer: Brandon Mancia MD #### CDP, TSH, CP #### [address] [place] 4480483 Contracting Engineer: LOGAN Resendizrotein [Mass/Vol]6.7 g/dLNormal6.6-8.7Av[facility] HospitalComment on above:Performed By: #### B12, VD25, FT3, FT4 #### [address] [address] Contracting Engineer: Brandon Mancia MD #### CDP, TSH, CP #### [address] [place] 4480483 Contracting Engineer: ALYSHA Resendizodium [Moles/Vol]139 mmol/EXejvvm526-954HssooAvita Health System Bucyrus HospitalComment on above:Performed By: #### B12, VD25, FT3, FT4 #### [address] [address] Contracting Engineer: Brandon Mancia MD #### CDP, TSH, CP #### [address] [place], [place] 5985583 Contracting Engineer: Elvis Griffiths MDUrea nitrogen [Mass/Vol]11 mg/dLNormal6-20[facility] HospitalComment on above:Performed By: #### B12, VD25, FT3, FT4 #### [facility] [place] [facility] [employer] [address] [place] [address] Contracting Engineer: Brandon Mancia MD #### CDP, TSH, CP #### [facility] [address] [place] [address] Contracting Engineer: Elvis Griffiths [facility] OKLAHOMA CITYomprehensive Metabolic Panelon 02-21-1610Gzyvmbd [Mass/Vol]4.0 g/dL3.5 - 5.2 g/dLBon [facility] HamiltonAlbumin/Globulin [Mass ratio]1.5 {ratio}1.0 - 2.5Bon [facility] HealthALP [Catalytic activity/Vol] 102 U/L40 - 129 U/LBon SecVista Surgical Hospital HealthALT [Catalytic activity/Vol]18 U/L10 - 50 U/LBon SecMansfield HospitalAnion gap [Moles/Vol]11 mmol/L9 - 16 mmol/LBon SecVista Surgical Hospital HealthAST [Catalytic activity/Vol]18 U/L10 - 50 U/LBon [facility] [place] [facility] HealthBilirubin [Mass/Vol]0.5 mg/dL0.00 - 1.20 mg/dLBon [facility] HamiltonCalcium [Mass/Vol]8.8 mg/dL8.6 - 10.4 mg/dLBon [facility] Chloride [Moles/Vol]101 mmol/L98 - 107 mmol/LBon Benson Hospitalours Shelby Memorial HospitalCO2 [Moles/Vol]27 mmol/L20 - 31 mmol/LBon [facility] HamiltonCreatinine [Mass/Vol] 0.8 mg/dL0.70 - 1.20 mg/dLBon [facility] [place] [facility] HealthEst, Glom Filt Rate- PINFBon Kettering Health HamiltonComment on above: These results are not intended [...] that affects renal tubular secretion. Glucose [Mass/Vol]155 mg/rDEiqo29 - 99 mg/dLBon [facility] Interpretation and review of laboratory resultsAbnormalLewisgale Hospital Pulaski Potassium [Moles/Vol]3.5 mmol/LLow3.7 - 5.3 mmol/LBon [facility] Protein [Mass/Vol]6.7 g/dL6.6 - 8.7 g/dLBon [facility] HamiltonSodium [Moles/Vol]139 mmol/L136 - 145 mmol/LBon [facility] HamiltonUrea nitrogen [Mass/Vol]11 mg/dL6 - 20 mg/dLBon [facility] HamiltonUrea nitrogen/Creatinine [Mass ratio]14 mg/mg9 - 20Bon [facility] HamiltonNo Panel Informationon 28-69-0377Kgo [facility] Luke's HospitalT3, Free 01-20-2025 Free T3 [Mass/Vol]3.08 pg/mL2.00 - 4.40 pg/mLLewisgale Hospital PulaskiFree T3 [Mass/Vol]3.08 pg/mLNormal2.00-4.40Av[facility] HospitalComment on above: Performed By: #### ABEBE, CP, URI #### [facility] [address] [place] [address] Contracting Engineer: Elvis Griffiths MD #### PSAS, URNMAB, LIPR #### [facility] [address] [place] [address] Contracting Engineer: Brandon Mancia MDT4, [facility] 08-17-9838Vaxz T4 [Mass/Vol]1.2 ng/dL 0.92 - 1.68 ng/dLBon [facility] HamiltonTSHon 68-97-3131WLL Qn1.01 m[IU]/LBon [facility] HamiltonThyroid Stim. Horm.on 87-80-9890Fksznwn Stim. Horm.1.01 uIU/mLNormal0.27-4.20[facility] HospitalComment on above:Performed By: #### SALENA LOMAS, URI #### [address] [place], [place] [phone] Contracting Engineer: Elvis Griffiths MD #### JALEN MARLEY, LIPR #### [place] [address] [place] [address] Contracting Engineer: Brandon Mancia MDThyroxine, Freeon 99-76-8799Ifepmaxcs, Free1.2 ng/dLNormal0.92-1.68[facility] HospitalComhavenwyck hospital on above:Performed By: #### SALENA LOMAS, URI #### [address] [place] [address] Contracting Engineer: Elvis Griffiths MD #### JALEN MARLEY, LIPR #### [address] [address] Contracting Engineer: Brandon Mancia MDVitamin B12on 75-30-0550Vzvvhhbju (Vitamin B12) [Mass/Vol]367 pg/mL232 - 1245 pg/mLLewisgale Hospital PulaskiCobalamin (Vitamin B12) [Mass/Vol]367 pg/kPOevrze282-7994Piumd Tiffin HospitalComhavenwyck hospital on above: Performed By: #### SALENA LOMAS, URI #### [address] [place], [place] 2102483 Contracting Engineer: Elvis Griffiths MD #### JALEN MARLEY, LIPR #### [place] [address] [place] [address] Contracting Engineer: Brandon Mancia MDVitamin D 25 Hydroxyon - hydroxyvitamin D3 [Mass/Vol]11.6 ng/mLLow30.0 - 100.0 ng/mLLewisgale Hospital PulaskiComhavenwyck hospital on above: Reference Range: Vitamin D status Range Deficiency <20 ng/mL Mild Deficiency 20-30 ng/mL Sufficiency 30-100 ng/mL Toxicity >100 ng/mL Interpretation and review of laboratory resultsAbnoShenandoah Memorial Hospital Vitamin D 25 OHon 35-41-2140Kraeoer D 25 OH11.6 ng/mLLow30.0-100.0[facility]cy[facility] HospitalComment on above:Result Comment: Reference Range: Vitamin D status Range Deficiency <20 ng/mL Mild Deficiency 20-30 ng/mL Sufficiency 30-100 ng/mL Toxicity >100 ng/mLPerformed By: #### SALENA LOMAS, URI #### [address] [place], [place] 7832583 Contracting Engineer: Elvis Griffiths MD #### KEIKO MARLEYNMAB, LIPR #### [address] [address] Contracting Engineer: Patsy Price [phone] [Catalytic activity/Vol]18 U/L10 - 50 U/LBon [facility] HamiltonALT [Catalytic activity/Vol]18 U/LNormal 10-50[facility] HospitalComment on above:Performed By: #### SALENA LOMAS, URI #### [address] [place], [place] 8291683 Contracting Engineer: Elvis Griffiths MD #### DONELL, KEIKONMAB, LIPR #### [address] [address] Contracting Engineer: Ranjith Price [phone] [Catalytic activity/Vol]20 U/L10 - 50 U/LBon [facility] HamiltonAST [Catalytic activity/Vol]20 U/LNormal 10-50[facility] HospitalComment on above:Performed By: #### SALENA LOMAS, URI #### [address] [place] [address] Contracting Engineer: Elvis Griffiths MD #### DONELL, EKIKONMAB, LIPR #### [address] [address] Contracting Engineer: Brandon Mancia [facility] Anneliese 05-70-5181BHM [Catalytic activity/Vol] 18 U/L10 - 50 U/LNOMS HealthcareCCF Jose Juan 20-73-9145UBF [Catalytic activity/Vol] 20 U/L10 - 50 U/LNOMS [facility] County HospitalLipid Panelon 45-72-8905Dvaclajfush [Mass/Vol] 103 mg/dL0 - 199 mg/dLBon Benson HospitalThird Solutions The Metrohealth SystemComment on above: Cholesterol Guidelines: <200 Desirable 200-240 Borderline >240 Undesirable Cholesterol in HDL [Mass/Vol]28 mg/dLLow40 - PINF mg/dLBon [facility] Rehabilitation HospitalNotion Systems Comment on above: HDL Guidelines: <40 Undesirable 40-59 Borderline >59 Desirable Cholesterol in LDL [Mass/Vol]57 mg/dL0 - 100 mg/dLBon [facility] [employer] Comment on above: LDL Guidelines: <100 Desirable 100-129 Near to/above Desirable 130-159 Borderline >159 Undesirable Direct (measured) LDL and calculated LDL are not interchangeable tests. Cholesterol in VLDL [Mass/Vol]18 mg/dL1 - 30 mg/dLBon [facility] [employer] Cholesterol.total/Cholesterol in HDL [Mass ratio]3.7 {ratio}NINF - 5.0Bon [facility] ExaDigmInterpretation and review of laboratory resultsAbnormalBon [facility] Rehabilitation HospitalNotion SystemsTriglyceride [Mass/Vol]89 mg/dLNINF - 150 mg/dLBon [facility] HamiltonComment on above: Triglyceride Guidelines: <150 Desirable 150-199 Borderline 200-499 High >499 Very high Based on AHA Guidelines for fasting triglyceride, December 2011. [facility] [employer] County Community HospitalLipid Profileon 73-39-0898Xnqtwkvqqdt [Mass/Vol]103 mg/dLNormal0-199Av[facility] HospitalComment on above:Result Comment: Cholesterol Guidelines: <200 Desirable 200-240 Borderline >240 UndesirablePerformed By: #### CDP, CP, URI #### [facility] [address] [place] [address] Contracting Engineer: Elvis Griffiths MD #### PSAS, URNMAB, LIPR #### [facility] [address] [place] [address] Contracting Engineer: Brandon Mancia MDCholesterol in HDL [Mass/Vol]28 mg/dLLow>40Av[facility] Bucy[facility] HospitalComment on above:Result Comment: HDL Guidelines: <40 Undesirable 40-59 Borderline >59 DesirablePerformed By: #### SALENA LOMAS, URI #### [address] [place], [place] 8401883 Contracting Engineer: Elvis Griffiths MD #### LOUISA MARLEYAB, LIPR #### [facility] [facility] [place], [place] 2491608 Contracting Engineer: Brandon Mancia MDCholesterol in LDL [Mass/Vol]57 mg/dLNormal0-100 [facility] HospitalComhavenwyck hospital on above:Result Comment: LDL Guidelines: <100 Desirable 100-129 Near to/above Desirable 130-159 Borderline >159 Undesirable Direct (measured) LDL and calculated LDL are not interchangeable tests.Performed By: #### SALENA LOMAS, URI #### [address] [place], [place] 2848183 Contracting Engineer: Elvis Griffiths MD #### LOUISA MARLEYAB, LIPR #### [employer] [address] [place] [address] Contracting Engineer: Brandon Mancia MDCholesterol in VLDL [Mass/Vol]18 mg/dLNormal1-30 [facility] on above:Performed By: #### SALENA LOMAS, URI #### [address] [place], [place] 4846183 Contracting Engineer: Elvis Griffiths MD #### LOUISA MARLEYAB, LIPR #### [facility] [employer] [address] [place] [phone] Contracting Engineer: Stephanie Pricestreji.total/Cholesterol in HDL [Mass ratio]3.7 {ratio}Normal<5.0[facility] on above:Performed By: #### SALENA LOMAS, URI #### [address] [place], [place] 0060183 Contracting Engineer: Elvis Griffiths MD #### DONELL, KEIKONMAB, LIPR #### [facility] [employer] [address] [place], [place] 4396508 Contracting Engineer: Brandon Mancia MDTriglyceride [Mass/Vol]89 mg/dLNormal<150Av[facility] HospitalComment on above:Result Comment: Triglyceride Guidelines: <150 Desirable 150-199 Borderline 200-499 High >499 Very high Based on AHA Guidelines for fasting triglyceride, December 2011.Performed By: #### SALENA LOMAS, URI #### [address] [place], [place] 9605583 Contracting Engineer: Elvis Griffiths MD #### JALEN MARLEY, LIPR #### [facility] [address] [place], [place] 1155408 Contracting Engineer: Brandon Mancia MDNo Panel Informationon 95-34-7777Yrrilrmg Ordering Provider: JENN NOVAHCA Houston Healthcare PearlandGlucose,Whole Bloodon 65-47-7352Hrwsera [Mass/Vol]122 mg/tPDhpp16-83Vzbia Beacham Memorial HospitalMHPT GLUCOSE,WHOLE BLOODon 55-54-3527Ormzhvh [Mass/Vol]122 mg/dL High65 - 99 mg/dLVA HOSPITAL HealthcareInterpretation and review of laboratory results AbnormalNOPA HealthcareOriginal Ordering Provider: M[facility]LEMANROANE [facility] HealthcareSurgical Pathology Reporton [id number] Pathology Report (NOTE) Path Number: [id number] -- Diagnosis -- A. Distal sigmoid colon, [...] Description A-C. Microscopic examination performed. Processing Lab: [place] [id number] Interpretation Performed at [address] [phone] SURGICAL PATHOLOGY CONSULTATION Patient Name: HAIR BRENNER [facility] Rec: [id number] [facility] ANATOMIC PATHOLOGY [address] [place] [address]. [place], [place] [id number] [place] [address] LeadOrdered By: Mikayla Chavez on 72-41-3554Yugscv Zkmc31RECCrg [employer] Phone: P Htrp73prfsdopMloCredible Phone: P-R [id number] [employer] Phone: Q-T [id number] [employer] Phone: QRS [id number] [employer] Phone: QTc Calculation ([phone] [employer] Phone: R Rvlk60pyubsmdSxhSentara [facility] [employer] Work Phone: T Dwuh47tdkpybkUphSentara [facility] [employer] Work Phone: Ventricular Giqf90TJFWgi Tustin Rehabilitation HospitalNotion Systems Work Phone: Bon [facility] [employer] Work Phone: EKG 12 Leadon 98-47-2913Dcrmxk sinus rhythm Normal ECG No previous ECGs available Confirmed by Mikayla Chavez ([id number]) on 10/05/2024 1:08:40 [facility] Mikayla Chavez MD - 10/05/2024 Normal sinus rhythm Normal ECG No previous ECGs available Confirmed by Mikayla Chavez ([id number]) on 10/05/2024 1:08:40 PM [facility] PulaskiHbA1c (Bld) [Mass fraction]on 59-57-5316Yqlkreutxrbwov and review of laboratory resultsAbnoFormerly [facility] HealthcareLaboratory - Hematology and Cell countson 92-93-3218VxR3j (Bld) [Mass fraction]5.9 %NOMS HealthcareAlbumin/Creat Ratio, Urineon 74-24-7446Wieqtwg,conc.[place] U<12Normal 0-20[facility] For Special CareComment on above:Performed By: #### CDP, CP, URI #### [facility] [address] [place] [address] [place] [address] Contracting Engineer: Elvis Griffiths MD #### PSAS, URNMAB, LIPR #### [employer] [address] [place] [address] Contracting Engineer: Brandon Mancia MDAlbumin/Creat RatioCan not be calculatedNormal 0.0-17.0MerGreenwich HospitalComment on above:Performed By: #### CDP, CP, URI #### [facility] [address] [place] [address] [place] [address] Contracting Engineer: Elvis Griffiths MD #### PSAS, URNMAB, LIPR #### [facility] JacksonInter[facility] [address] [place], [place] 2839708 Contracting Engineer: Brandon Mancia MDCreatinine Conc.210.0 mg/iWBjvtkk06.0-259.0[facility] HospitalComhavenwyck hospital on above:Result Comment: Reference range defined for 1st morning urinePerformed By: #### CDP, CP, URI #### [facility] [address] [place] [address] [place] [address] Contracting Engineer: Elvis Griffiths MD #### PSAS, URNMAB, LIPR #### [facility] [employer] [address] [place], [place] 3562208 Contracting Engineer: Brandon Mancia MDAlbumin/Creatinine Ratio, Urineon 09-01-2024 Albumin DL <= 20 mg/L (U) [Mass/Vol]mg/L0 - 20 mg/LBon [facility] Albumin/Creatinine DL <= 20 mg/L (U) [Ratio]Can not be calculatedBon [facility] HamiltonCreatinine (U) [Mass/Vol]210 mg/dL39.0 - 259.0 mg/dLBon [facility] HamiltonComment on above:Reference range defined for 1st morning urineBon [facility] HamiltonCBC with Auto Differentialon 86-40-4849Nnfkxqaxe (Bld) [#/Vol]0.04 10*3/uLBon [facility] HamiltonBasophils/100 WBC (Bld)1 %0 - 2 %[facility] PulaskiEosinophils (Bld) [#/Vol]0.14 10*3/uLBon [facility] HamiltonEosinophils/100 WBC (Bld)2 %1 - 4 %[facility] PulaskiErythrocyte distribution width (RBC) [Ratio]13.1 %11.8 - 14.4 %[facility] Hematocrit (Bld) [Volume fraction]43.6 %40.7 - 50.3 %[facility] Hemoglobin (Bld) [Mass/Vol]14.8 g/dL13.0 - 17.0 g/dLBon [facility]Mansfield Hospital Immature granulocytes (Bld) [#/Vol][facility] HospitalImmature granulocytes/100 WBC (Bld)0 %0[facility] HospitalLymphocytes/100 WBC (Bld) 26 %24 - 43 %[facility] HospitalLymphocytes/100 WBC (Bld)2.14 %Bon [facility] HealthH (RBC) [Entitic mass]28.9 pg25.2 - 33.5 pgBon SecUniversity Hospitals Health SystemHC (RBC) [Mass/Vol]33.9 g/dL28.4 - 34.8 g/dLBon SecUniversity Hospitals Health SystemV (RBC) [Entitic vol]85.2 fL82.6 - 102.9 fLBon SecMansfield HospitalMonocytes/100 WBC (Bld)7 %3 - 12 %Bon SecMansfield HospitalMonocytes/100 WBC (Bld)0.6 %Bon [facility] HamiltonNeutrophils/100 WBC (Bld)64 %36 - 65 %Bon [facility] HamiltonNucleated RBC/100 WBC (Bld) [Ratio]0 %0.0 per 100 WBCBon SecMansfield HospitalPlatelet mean volume (Bld) [Entitic vol]10 fL8.1 - 13.5 fLBon SecVista Surgical Hospital HealthPlatelets (Bld) [#/Vol]212 10*3/uLBon SecMansfield HospitalRBC (Bld) [#/Vol]5.12 10*6/uL4.21 - 5.77 m/uLBon [facility] HamiltonSegmented neutrophils/100 WBC (Bld)5.24 %[facility] PulaskiWBC other (Bld) [#/Vol] 8.2[facility] ClinicsCBC with Diffon 09-01-2024 Abs. Basophil0.04 k/uLNormal0.00-0.20[facility] HospitalComment on above: Performed By: #### ABEBE, SALENA, KEIKOI #### [facility] [address] [place] [address] Contracting Engineer: Elvis Griffiths MD #### PSAS, URNMAB, LIPR #### [place] [address] Contracting Engineer: Raymundo Price.Imm.Granulocyte<0.83Yeajwr4.00-0.30[facility]cy[facility] HospitalComment on above:Performed By: #### ABEBE CP, URI #### [address] [place] [address] Contracting Engineer: Elvis Griffiths MD #### PSAS, URNMAB, LIPR #### [place] [address] Contracting Engineer: Raymundo Price.Neutrophil (Seg)5.24 k/uLNormal1.50-8.10 [facility] HospitalComment on above:Performed By: #### SALENA LOMAS, URI #### [address] [place] [address] Contracting Engineer: Elvis Griffiths MD #### LOUISA MARLEYAB, LIPR #### [place] [address] Contracting Engineer: Brandon Mancia MDBasophils/100 WBC (Bld)1 %Normal0-2MUniversity Hospitals Geauga Medical CenterComment on above:Performed By: #### SALENA LOMAS, URI #### [address] [place] [address] Contracting Engineer: Elvis Griffiths MD #### PSAWaldo, KEIKONMAB, LIPR #### [place] [address] Contracting Engineer: Brandon Mancia MDEosinophils (Bld) [#/Vol]0.14 10*3/uLNormal 0.00-0.44[facility] HospitalComment on above:Performed By: #### ABEBE, CP, URI #### [address] [place], [place] [id number] Contracting Engineer: Elvis Griffiths MD #### PSAWaldo, URNMAB, LIPR #### [address] [address] Contracting Engineer: Brandon Mancia MDEosinophils/100 WBC (Bld)2 %Normal1-4[facility] HospitalComment on above:Performed By: #### ABEBE CP, URI #### [address] [place] [phone] Contracting Engineer: Elvis Griffiths MD #### DONELL URRACHEALAB, LIPR #### [address] [phone] Contracting Engineer: Brandon Mancia MDErythrocyte distribution width (RBC) [Ratio]13.1 %Ymptdq75.8-14.4[facility] HospitalComment on above:Performed By: #### SALENA LOMAS, URI #### [address] [place] [phone] Contracting Engineer: Elvis Griffiths MD #### LOUISA MARLEYAB, LIPR #### [address] [phone] Contracting Engineer: Brandon Mancia MDHematocrit (Bld) [Volume fraction]43.6 %Normal 40.7-50.3[facility] centery Hospital For Special CareComment on above:Performed By: #### ABEBE CP, URI #### [address] [place], [place] 6948583 Contracting Engineer: Elvis Griffiths MD #### PSAWaldo, URNMAB, LIPR #### [address] [phone] Contracting Engineer: Brandon Mancia MDHemoglobin (Bld) [Mass/Vol]14.8 g/dLNormal 13.0-17.0[facility] HospitalComment on above:Performed By: #### CDP, CP, URI #### [address] [place] [address] Contracting Engineer: Elvis Griffiths MD #### PSAS, URNMAB, LIPR #### [address] [address] Contracting Engineer: Brandon Mancia MDImmature granulocytes/100 WBC (Bld)0 %Normal0 [facility] HospitalComment on above:Performed By: #### ABEBE, CP, URI #### [address] [place] [address] Contracting Engineer: Elvis Griffiths MD #### PSAS, URNMAB, LIPR #### [address] [address] Contracting Engineer: Brandon Mancia MDLymphocytes (Bld) [#/Vol]2.14 10*3/uLNormal 1.10-3.70[facility] HospitalComhavenwyck hospital on above:Performed By: #### ABEBE, CP, URI #### [address] [place], [place] 9857983 Contracting Engineer: Elvis Griffiths MD #### PSAS, URNMAB, LIPR #### [address] [address] Contracting Engineer: Brandon Mancia MDLymphocytes/100 WBC (Bld)26 %Udqqwc14-32GrynbAvita Health System Bucyrus HospitalComhavenwyck hospital on above:Performed By: #### ABEBE, CP, URI #### [address] [place], [place] 1447083 Contracting Engineer: Elvis Griffiths MD #### PSAS, URNMAB, LIPR #### [address] [phone] Contracting Engineer: LANDON PirceCH (RBC) [Entitic mass]28.9 dvXbwejv62.2-33.5 [facility] HospitalComment on above:Performed By: #### SALENA LOMAS, URI #### [address] [place], [place] 1135983 Contracting Engineer: Elvis Griffiths MD #### PSAS, URNMAB, LIPR #### [address] [phone] Contracting Engineer: LANDON PriceCHC (RBC) [Mass/Vol]33.9 g/vKNijpgf42.4-34.8 [facility] HospitalComment on above:Performed By: #### SALENA LOMAS, URI #### [address] [place] [address]80483 Contracting Engineer: Elvis Griffiths MD #### DONELL, LOUISAAB, LIPR #### [address] [address] Contracting Engineer: LANDON PriceCV (RBC) [Entitic vol]85.2 iILsepdl23.6-102.9 [facility] HospitalComment on above:Performed By: #### SALENA LOMAS, URI #### [address] [place] 4480483 Contracting Engineer: Elvis Griffiths MD #### PSAS, URNMAB, LIPR #### [address] [address] Contracting Engineer: LANDON Priceonocytes (Bld) [#/Vol]0.60 10*3/uLNormal 0.10-1.20[facility] HospitalComment on above:Performed By: #### ABEBE, CP, URI #### [address] [place] [phone] Contracting Engineer: Elvis Griffiths MD #### PSAS, URNMAB, LIPR #### [address] [phone] Contracting Engineer: LANDON Priceonocytes/100 WBC (Bld)7 %Normal3-12[facility] HospitalComment on above:Performed By: #### CDP, CP, URI #### [address] [place] [phone] Contracting Engineer: Elvis Griffiths MD #### PSAS, URNMAB, LIPR #### [place] [phone] Contracting Engineer: Brandon Mancia MDNeutrophil (Seg)64 %Dhaemz90-70GnvujAvita Health System Bucyrus HospitalComment on above:Performed By: #### SALENA LOMAS, URI #### [address] [place] [phone] Contracting Engineer: Elvis Griffiths MD #### PSAS, URNMAB, LIPR #### [place] [phone] Contracting Engineer: Brandon Mancia MDNRBC Automated0.0 per 100 WBCNormal0.0[facility] HospitalComment on above:Performed By: #### ABEBE, CP, URI #### [address] [place] [phone] Contracting Engineer: Elvis Griffiths MD #### PSAS, URNMAB, LIPR #### [place] [phone] Contracting Engineer: LOGAN Pricelatelet mean volume (Bld) [Entitic vol]10.0 fL Normal8.1-13.5[facility] HospitalComment on above:Performed By: #### CDP, CP, URI #### [address] [place], [place] 7807783 Contracting Engineer: Elvis Griffiths MD #### PSAS, URNMAB, LIPR #### [place] [address] [place] [address] Contracting Engineer: Thalia Price ([facility]) [#/Vol]212 10*3/kCOrdbjh443-875 [facility] HospitalComment on above:Performed By: #### CDP, CP, URI #### [address] [place] [address] Contracting Engineer: Elvis Griffiths MD #### PSAS, URNMAB, LIPR #### [address] [address] Contracting Engineer: MIN Price ([facility]) [#/Vol]5.12 10*6/uLNormal4.21-5.77 [facility] HospitalComment on above:Performed By: #### CDP, CP, URI #### [address] [place] [address] Contracting Engineer: Elvis Griffiths MD #### PSAS, URNMAB, LIPR #### [address] [address] Contracting Engineer: Brandon Mancia MDNORTH SHORE [facility] ([facility]) [#/Vol]8.2 10*3/uLNormal3.5-11.3MUniversity Hospitals Geauga Medical CenterComment on above:Performed By: #### CDP, CP, URI #### [address] [place] [address] Contracting Engineer: Elvis Griffiths MD #### PSAS, URNMAB, LIPR #### [address] [address] Contracting Engineer: POLLY Priceacadia healthcare Metabolic Profon 13-57-1602Afomiki [Mass/Vol]4.3 g/dLNormal3.5-5.2MUniversity Hospitals Geauga Medical CenterComment on above:Performed By: #### SALENA LOMAS, URI #### [address] [place] [phone] ( Contracting Engineer: Elvis Griffiths MD #### PSAS, URNMAB, LIPR #### [address] [phone] Contracting Engineer: Brandon Mancia MDAlbumin/Glob Ratio1.3Jhllju2.0-2.5[facility] HospitalComment on above:Performed By: #### SALENA LOMAS, URI #### [address] [place] 4480483 Contracting Engineer: Elvis Griffiths MD #### LOUISA MARLEYAB, LIPR #### [address] [phone] Contracting Engineer: Julius Pricekaline Phos87 U/JLkplfh89-630UdzayAvita Health System Bucyrus HospitalComment on above:Performed By: #### SALENA LOMAS, URI #### [address] [place] 4480483 Contracting Engineer: Elvis Griffiths MD #### LOUISA MARLEYAB, LIPR #### [address] [address] Contracting Engineer: Brandon Mancia MDALT [Catalytic activity/Vol]21 U/JFhpexw74-66 [facility] HospitalComhavenwyck hospital on above:Performed By: #### SALENA LOMAS, URI #### [address] [place], [place] 3902883 Contracting Engineer: Elvis Griffiths MD #### PSAWaldo, URNMAB, LIPR #### [address] [phone] Contracting Engineer: Peyton Price gap [Moles/Vol]14 mmol/LNormal9-16[facility] HospitalComment on above:Performed By: #### SALENA LOMAS, URI #### [facility] [address] [place] [address] Dr. [place], [place] 7963883 Contracting Engineer: Evlis Griffiths MD #### PSALOUISA HaasAB, LIPR #### [address] [phone] Contracting Engineer: Brandon Mancia MDAST [Catalytic activity/Vol]21 U/RVmcztm04-12 [facility] HospitalComment on above:Performed By: #### SALENA LOMAS, URI #### [facility] [address] [place] [address] Dr. [place] [phone] Contracting Engineer: Elvis Griffiths MD #### JALEN MARLEY, LIPR #### [address] [address] Contracting Engineer: Brandon Mancia MDBilirubin [Mass/Vol]0.5 mg/dLNormal0.00-1.20 [facility] HospitalComment on above:Performed By: #### SALENA LOMAS, URI #### [address] [place] [phone] Contracting Engineer: Elvis Griffiths MD #### PSALOUISA HaasAB, LIPR #### [address] [address] Contracting Engineer: Brandon Mancia MDBUN/CRE Oppna64Bawwbm0-31Avhgv [facility] Comment on above:Performed By: #### SALENA LOMAS, URI #### [address] [place], [place] 4240383 Contracting Engineer: Elvis Griffiths MD #### PSAS URNMAB, LIPR #### [address] [phone] Contracting Engineer: POLLY Pricealcium [Mass/Vol]8.7 mg/dLNormal8.6-10.4[facility] HospitalComment on above:Performed By: #### ABEBE, SALENA, URI #### [address] [place], [place] 1441383 Contracting Engineer: Elvis Griffiths MD #### PSAS URNMAB, LIPR #### [place] [address] [place], [place] 8699008 Contracting Engineer: POLLY Pricehloride [Moles/Vol]103 mmol/HDnhlij36-382YufdgAvita Health System Bucyrus HospitalComment on above:Performed By: #### SALENA LOMAS, URI #### [address] [place] 5181983 Contracting Engineer: Elvis Griffiths MD #### KEIKO MARLEYNMAB, LIPR #### [address] [phone] Contracting Engineer: Brandon Mancia MDCO2 [Moles/Vol]24 mmol/PIepqmr28-08NhjeaAvita Health System Bucyrus HospitalComment on above:Performed By: #### ABEBE, CP, URI #### [address] [place], [place] 0563883 Contracting Engineer: Elvis Griffiths MD #### PSAKEIKO HaasNMAB, LIPR #### [place] [address] [place], [place] 5750008 Contracting Engineer: POLLY Pricereatinine [Mass/Vol]0.8 mg/dLNormal0.70-1.20 [facility] HospitalComhavenwyck hospital on above:Performed By: #### ABEBE, CP, URI #### [address] [place], [place] 4401783 Contracting Engineer: Elvis Griffiths MD #### PSAS, URNMAB, LIPR #### [address] [phone] Contracting Engineer: Brandon Mancia MDGFR/1.73 sq M.predicted among non-blacks MDRD (S/P/Bld) [Vol rate/Area]mL/min/{1.73_m2}Normal>60[facility] HospitalComment on above:Result Comment: These results are [...] secretion.Performed By: #### SALENA LOMAS, URI #### [address] [place] [address] Contracting Engineer: Elvis Griffiths MD #### JALEN MARLEY, LIPR #### [address] [phone] Contracting Engineer: Brandon Mancia MDGlucose [Mass/Vol]108 mg/sFLimj12-67Oyvxo78 Stout StreetComment on above:Performed By: #### SALENA LOMAS, URI #### [address] [place] [address] Contracting Engineer: Elvis Griffiths MD #### JALEN MARLEY, LIPR #### [address] [phone] Contracting Engineer: LOGAN Priceotassium [Moles/Vol]4.1 mmol/LNormal3.7-5.3 [facility] HospitalComhavenwyck hospital on above:Performed By: #### SALENA LOMAS, URI #### [address] [place] [address] Contracting Engineer: Elvis Griffiths MD #### PSAS, URNMAB, LIPR #### [facility] [facility] [place], [place] 7454808 Contracting Engineer: LOGAN Pricerotein [Mass/Vol]6.9 g/dLNormal6.6-8.7[facility] HospitalComment on above:Performed By: #### CDP, CP, URI #### [address] [place] 4480483 Contracting Engineer: Elvis Griffiths MD #### PSAS, URNMAB, LIPR #### [facility] [employer] [place], [place] 5115708 Contracting Engineer: ALYSHA Priceodium [Moles/Vol]141 mmol/ORsswzv872-223LbsjiAvita Health System Bucyrus HospitalComment on above:Performed By: #### CDP, CP, URI #### [address] [place] 4480483 Contracting Engineer: Elvis Griffiths MD #### PSAS, URNMAB, LIPR #### [facility] [employer] [place], [place] 6539108 Contracting Engineer: Brandon Mancia MDUrea nitrogen [Mass/Vol]14 mg/dLNormal6-20[facility] HospitalComment on above:Performed By: #### CDP, CP, URI #### [address] [place] [address] Contracting Engineer: Elvis Griffiths MD #### PSAS, URNMAB, LIPR #### [facility] [employer] [facility] [place], [place] 0368308 Contracting Engineer: POLLY Priceomprehensive Metabolic Panelon 09-01-2024 Albumin [Mass/Vol]4.3 g/dL3.5 - 5.2 g/dLBon [facility] Health HamiltonAlbumin/Globulin [Mass ratio]1.6 {ratio}1.0 - 2.5Bon [facility] HamiltonALP [Catalytic activity/Vol]87 U/L40 - 129 U/LBon [facility] HealthALT [Catalytic activity/Vol]21 U/L10 - 50 U/LBon [facility] HamiltonAnion gap [Moles/Vol]14 mmol/L9 - 16 mmol/LBon [facility] HealthAST [Catalytic activity/Vol]21 U/L10 - 50 U/LBon [facility] HospitalInterconnect Media Network Systems HealthBilirubin [Mass/Vol]0.5 mg/dL0.00 - 1.20 mg/dL Bon SecMansfield HospitalCalcium [Mass/Vol]8.7 mg/dL8.6 - 10.4 mg/dLBon [facility] HamiltonChloride [Moles/Vol]103 mmol/L98 - 107 mmol/LBon [facility] HamiltonCO2 [Moles/Vol]24 mmol/L20 - 31 mmol/LBon [facility] HamiltonCreatinine [Mass/Vol]0.8 mg/dL0.70 - 1.20 mg/dLBon [facility] HamiltonEst, Glom Filt Rate- PINFBon Kettering Health HamiltonComment on above: These results are not intended [...] that affects renal tubular secretion. Glucose [Mass/Vol]108 mg/dWWdoq19 - 99 mg/dLBon [facility] Interpretation and review of laboratory resultsAbnormalBon [facility] Potassium [Moles/Vol]4.1 mmol/L3.7 - 5.3 mmol/LBon [facility] HamiltonProtein [Mass/Vol]6.9 g/dL6.6 - 8.7 g/dLBon [facility] HamiltonSodium [Moles/Vol]141 mmol/L136 - 145 mmol/LBon [facility] HamiltonUrea nitrogen [Mass/Vol]14 mg/dL6 - 20 mg/dLBon [facility] HamiltonUrea nitrogen/Creatinine [Mass ratio]18 mg/mg9 - 20Bon [facility] HamiltonLipid Panelon [id number] [Mass/Vol]163 mg/dL0 - 199 mg/dLBon [facility] HamiltonComment on above: Cholesterol Guidelines: <200 Desirable 200-240 Borderline >240 Undesirable Cholesterol in HDL [Mass/Vol]28 mg/dLLow40 - PINF mg/dLBon [facility] Comment on above: HDL Guidelines: <40 Undesirable 40-59 Borderline >59 Desirable Cholesterol in LDL [Mass/Vol]117 mg/dLHigh0 - 100 mg/dLBon [facility] Comment on above: LDL Guidelines: <100 Desirable 100-129 Near to/above Desirable 130-159 Borderline >159 Undesirable Direct (measured) LDL and calculated LDL are not interchangeable tests. Cholesterol in VLDL [Mass/Vol]18 mg/dL1 - 30 mg/dLBon [facility] Cholesterol.total/Cholesterol in HDL [Mass ratio]5.8 {ratio}HighNINF - 5.0Bon [facility] HamiltonInterpretation and review of laboratory resultsAbnormalBon [facility] HamiltonTriglyceride [Mass/Vol]90 mg/dLNINF - 150 mg/dLBCritical access hospitalComment on above: Triglyceride Guidelines: <150 Desirable 150-199 Borderline 200-499 High >499 Very high Based on AHA Guidelines for fasting triglyceride, December 2011. [facility] PulaskiLipid Profileon 65-42-4627Ppdwkfrbtok [Mass/Vol]163 mg/dLNormal0-199[facility] HospitalComment on above:Result Comment: Cholesterol Guidelines: <200 Desirable 200-240 Borderline >240 UndesirablePerformed By: #### CDP, CP, URI #### [facility] [address] [place] [address] Contracting Engineer: Elvis Griffiths MD #### KEIKO MARLEYNMAB, LIPR #### [facility] [address] [place] [address] Contracting Engineer: POLLY Priceholesterol in HDL [Mass/Vol]28 mg/dLLow>40[facility] HospitalComment on above:Result Comment: HDL Guidelines: <40 Undesirable 40-59 Borderline >59 DesirablePerformed By: #### CDP, CP, URI #### [address] [place], [place] 6593283 Contracting Engineer: Elvis Griffiths MD #### LOUISA MARLEYAB, LIPR #### [address] 1973308 Contracting Engineer: Brandon Mancia MDCholesterol in LDL [Mass/Vol]117 mg/dLHigh0-100 [facility] HospitalComment on above:Result Comment: LDL Guidelines: <100 Desirable 100-129 Near to/above Desirable 130-159 Borderline >159 Undesirable Direct (measured) LDL and calculated LDL are not interchangeable tests.Performed By: #### SALENA LOMAS, URI #### [address] [place], [place] 0550283 Contracting Engineer: Elvis Griffiths MD #### JALEN MARLEY, LIPR #### [address] [address] Contracting Engineer: POLLY Priceholesterol in VLDL [Mass/Vol]18 mg/dLNormal1-30 [facility] HospitalComment on above:Performed By: #### SALENA LOMAS, URI #### [address] [place], [place] 9198983 Contracting Engineer: Elvis Griffiths MD #### KEIKO MARLEYNMAB, LIPR #### [place] [address] [place] [address] Contracting Engineer: POLLY Priceholestreji.total/Cholesterol in HDL [Mass ratio]5.8 {ratio}High<5.0[facility] HospitalComhavenwyck hospital on above:Performed By: #### SALENA LOMAS, URI #### [address] [place], [place] 1275183 Contracting Engineer: Elvis Griffiths MD #### KEIKO MARLEYNMAB, LIPR #### [facility] [address] [place], [place] 4682408 Contracting Engineer: Brandon Mancia MDTriglyceride [Mass/Vol]90 mg/dLNormal<150[facility] HospitalComment on above:Result Comment: Triglyceride Guidelines: <150 Desirable 150-199 Borderline 200-499 High >499 Very high Based on AHA Guidelines for fasting triglyceride, December 2011.Performed By: #### CDP, CP, URI #### [facility] [address] [place] [address] Contracting Engineer: Elvis Griffiths MD #### PSAS, URNMAB, LIPR #### [facility] [address] [place], [place] [phone] Contracting Engineer: Brandon Mancia MDMHPT CBC WITH DIFFon [id number]/100 WBC (Bld)1 %0 - 2 %NOMS HealthcareEosinophils/100 WBC (Bld)2 %1 - 4 %[facility] HospitalErythrocyte distribution width (RBC) [Ratio]13.1 %11.8 - 14.4 %[facility] HospitalHematocrit (Bld) [Volume fraction]43.6 %40.7 - 50.3 %[facility] Hemoglobin (Bld) [Mass/Vol]14.8 g/dL13.0 - 17.0 g/dLHannibal Regional HospitalImmature granulocytes/100 WBC (Bld)0 %0NOCenterPointe HospitalLymphocytes/100 WBC (Bld)26 %24 - 43 %[facility] Regional HospitalMCH (RBC) [Entitic mass]28.9 pg25.2 - 33.5 pgNOPA Healthcare MCHC (RBC) [Mass/Vol]33.9 g/dL28.4 - 34.8 g/dLHannibal Regional HospitalMCV (RBC) [Entitic vol]85.2 fL82.6 - 102.9 fLNOPA HealthcareMHPT ABS. BASOPHIL0.04[facility] MHPT ABS. EOSINOPHIL0.14NOPA HealthcareMHPT ABS. LYMPH2.14NOPA HealthcareMHPT ABS. MONOCYTE0.6NOPA HealthcareMHPT ABS.IMM.GRANULOCYTE<0.03NOCenterPointe HospitalMHPT ABS.NEUTROPHIL (SEG)5.24NOSaint Joseph Hospital of KirkwoodPT NRBC WDVJPQLFK75.0 per 100 WBCNOSaint Joseph Hospital of KirkwoodPT PLATELET [id number] Joseph Hospital of KirkwoodPT WBC COUNT8.2[facility] Monocytes/100 WBC (Bld)7 %3 - 12 %NOM HealthcarePlatelet mean volume (Bld) [Entitic vol]10 fL8.1 - 13.5 fLVA HOSPITAL HealthcareRBC (Bld) [#/Vol]5.12 10*6/uL4.21 - 5.77 m/uLNOCenterPointe HospitalSegmented neutrophils/100 WBC (Bld)64 %36 - 65 %[facility] HealthcareOriginal Ordering Provider: JENN BOXFulton State HospitalNo Panel Informationon [id number] [facility] Screening on 32-54-6384Kccnufcy specific Ag [Mass/Vol]0.5 ng/mL0.00 - 4.00 ng/mLBon [facility] HamiltonComment on above:The Kesha ECLIA assay is used. Results obtained with different assay methods cannot be used interchangeably. Bon [facility], Screeningon [id number] Spec. Ag0.50 ng/mL Normal0.00-4.00[facility] HospitalComment on above:Result Comment: The Kesha ECLIA assay is used. Results obtained with different assay methods cannot be used interchangeably.Performed By: #### SALENA LOMAS, URI #### [address] [place] [address] Contracting Engineer: Elvis Griffiths MD #### PSAS, URNMAB, LIPR #### [facility] [address] [place] [address] Contracting Engineer: Brandon Mancia MDUric Acidon [id number] [Mass/Vol]6.1 mg/dL 3.4 - 7.0 mg/dLBon [facility] Health HamiltonUrate [Mass/Vol]6.1 mg/dLNormal3.4-7.0 [facility] HospitalComment on above:Performed By: #### SALENA LOMAS, URI #### [facility] [address] [place] [address] [place] [address] Contracting Engineer: Elvis Griffiths MD #### PSAS, URNMAB, LIPR #### [place] [address] [place], [place] [phone] Contracting Engineer: Brandon Mancia MDUrinalysison [id number] Ql (U)Negative NEGATIVEBon [facility] HealthClarity (U)ClearClearBon [facility] Health Color (U)YellowYellowBon [facility] HamiltonGlucose Test strip (U) [Mass/Vol] NegativeNEGATIVE mg/dLBon [facility] HamiltonHemoglobin Auto test strip Ql (U) NegativeNEGATIVEBon [facility] HealthInterpretation and review of laboratory resultsAbnormalBon [facility] HealthKetones (U) [Mass/Vol]NegativeNEGATIVE mg/dLBon [facility] HamiltonLeukocyte esterase Test strip Ql (U)Negative NEGATIVEBon [facility] HealthNitrite Ql (U)NegativeNEGATIVEBon [facility] HealthpH (U)6 [pH]5.0 - 9.0Bon [facility] HealthProtein (U) [Mass/Vol] NegativeNEGATIVE mg/dLBon [facility] HealthSpecific gravity (U) [Rel density] 1.890Qcis1.010 - 1.020Bon [facility] HamiltonUrobilinogen Qn (U)Normal0.0 - 1.0 EU/dLBon SecTomah Memorial HospitalUrinalysis, Routineon [id number], SemiQt,UrNegativeNormalNEGMerGreenwich HospitalComment on above:Performed By: #### UA #### [facility] [address] [place] [address] Contracting Engineer: Alethea Resendiz, UrineNegativeNormalRegional Medical Center Comment on above:Performed By: #### UA #### [facility] [address] [place] [address] Contracting Engineer: POLLY Resendizlarity (U)ClearNormalCLEARAvita Health System Bucyrus Hospital Comment on above:Performed By: #### UA #### [facility] [address] [place] [address] Dr. [place], [facility] Contracting Engineer: POLLY Resendizolor (U)YellowNormalYELMerGreenwich Hospital Comment on above:Performed By: #### UA #### [facility] [address] [place] [address] Dr. [place], [facility] Contracting Engineer: Elvis Griffiths MDGlucose Ql (U)NegativeNormalNEGAvita Health System Bucyrus HospitalComment on above:Performed By: #### UA #### [facility] [address] [place] [address] Dr. [place], [id number] Contracting Engineer: Elvis Griffiths MDKetones Ql (U)NegativeNormalNEGAvita Health System Bucyrus HospitalComment on above:Performed By: #### UA #### [facility] [address] [place] [address] Dr. [place], [id number] Contracting Engineer: Elvis Griffiths MDLeukocyte esterase Test strip Ql (U)NegativeNormal NEGAvita Health System Bucyrus HospitalComment on above:Performed By: #### UA #### [facility] [address] [place] [address] Dr. [place], [id number] Contracting Engineer: Elvis Griffiths MDNitrite,UrNegativeNormalRegional Medical Center Comment on above:Performed By: #### UA #### [facility] [address] [place] [address] Dr. [place], [id number] Contracting Engineer: LOGAN Resendiz,Ur6.2Eajwlr4.0-9.0MerGreenwich HospitalComment on above:Performed By: #### UA #### [facility] [address] [place] [address] Dr[place], [place] [phone] Contracting Engineer: LOGAN Resendizrotein Ql (U)NegativeNormalNEGMerWadsworth-Rittman Hospital HospitalComment on above:Performed By: #### UA #### [facility] [address] [place] [address] Contracting Engineer: Dom Resendiz. [place],Ur1.892Sxkl3.010-1.020[facility] HospitalComhavenwyck hospital on above:Performed By: #### UA #### [facility] [address] [place], [place] [id number] Contracting Engineer: Elvis Griffiths MDUrobilinogen,UrNormalNormal0.0-1.0[facility] Bucyrus HospitalComment on above:Performed By: #### UA #### [facility] [address] [place] [address] Contracting Engineer: Elvis Griffiths MDHbA1c (Bld) [Mass fraction]on 06-29-2024 Interpretation and review of laboratory resultsAbNovant Health Medical Park HospitalLaboratory - Hematology and Cell countson 14-56-7170JrU1g (Bld) [Mass fraction]5.90 %[facility] HealthcareMRSA CULTUREon 98-10-4804Kinvgmgirssloj and review of laboratory resultsAbVA Medical CenterSA CULTURE O:STAAUR Isolated [facility] HealthcareMRSA CULTURE MRSA Culture Quantity of Growth [facility] HospitalSA CULTURELIGHTSelect Specialty HospitalSA CULTUREMETHICILLIN RESISTANT STAPH AUREUS ISOLATED. PLEASE FOLLOWDeaconess Incarnate Word [facility] System CULTUREHannibal Regional Hospital MRSA CULTUREMRSA CALL TO DR. LEUNG. 09-24-23 AT 1148[facility] CULTURE Organism: 1.1 Antibiotic Interpretation GEMA Status [facility] HealthcareMRSA CULTUREBeta Lactamase N FNOMS HealthcareMRSA CULTURE Cefoxitin Screen A FAbnormalHannibal Regional HospitalMRSA CULTURECiprofloxacin S <=0.5 F SusceptibleNOPA HealthcareMRSA CULTUREClindamycin S <=0.25 FSusceptibleNOPA HealthcareMRSA CULTUREErythromycin S <=0.25 FSusceptibleNOPA HealthcareMRSA CULTUREInducible Clindamycin Resis N FNOMS HealthcareMRSA CULTURELevofloxacin S 0.25 FSusceptibleHannibal Regional HospitalMRSA CULTURELinezolid S 2 FSusceptibleHannibal Regional HospitalMRSA CULTUREOxacillin R >=4 FResistantNOMS HealthcareMRSA CULTURE Penicillin-G R >=0.5 FResistantNOMS HealthcareMRSA CULTURE Quinupristin/Dalfopristin S <=0.25 FSusceptibleNOMS HealthcareMRSA CULTURE Rifampin S <=0.5 FSusceptibleNOMS HealthcareMRSA CULTURETetracycline S <=1 F SusceptibleNOMS HealthcareMRSA CULTURETrimethoprim/Sulfamethoxazole S <=10 F SusceptibleNOMS HealthcareMRSA CULTUREVancomycin S 1 FSusceptibleNOMS Healthcare CLINISYNCNOMS HealthcareECG 12-LEADon 50-09-6483[place] [address] Electrocardiograph Report Signed Patient: HAIR BRENNER MR#: [id number] : 1975 Acct:[id number] Age/Sex: 48 / M ADM Date: 09/22/23 Loc: LAB Attending Dr: Carlito Leung M.D. Ordering Physician: Carlito Leung M.D. Date of Service: 09/22/23 Procedure(s): ECG 12 lead Accession Number(s): [id number] cc: [facility] Test Date: 2023-09-22 Pat Name: HAIR BRENNER Department: Room: - Gender: Male Product Technician: : 1975 Requested By: 2089 Order Number: [id number] Reading MD: WOO MARQUEZ Measurements Intervals [place] Rate: 83 P: 35 AL: 205 QRS: 18 QRSD: 109 T: 27 QT: 393 QTc: 464 Interpretive Statements SINUS RHYTHM Compared to ECG 03/06/2021 21:21:10 No significant changes Electronically Signed On 09-22-2023 22:15:28 EDT by WOO MARQUEZ Dictated By: Woo Marquez D.O. Signed By: 09/22/23221409/22/232214 DD/ 9 TD/TT: Metal Off Bearer:ILAadiologsusan, Radiologist, - 09/22/2023 [place] [address] Electrocardiograph Report Signed Patient: HAIR BRENNER MR#: [id number] : 1975 Acct:[id number] Age/Sex: 48 / M ADM Date: 09/22/23 Loc: LAB Attending Dr: Carlito Leung M.D. Ordering Physician: Carlito Leung M.D. Date of Service: 09/22/23 Procedure(s): ECG 12 lead Accession Number(s): [id number] cc: [facility] Test Date: 2023-09-22 Pat Name: HAIR BRENNER Department: Room: - Gender: Male Product Technician: : 1975 Requested By: 2089 Order Number: [id number] Reading MD: WOO MARQUEZ Measurements Intervals [place] Rate: 83 P: 35 AL: 205 QRS: 18 QRSD: 109 T: 27 QT: 393 QTc: 464 Interpretive Statements SINUS RHYTHM Compared to ECG 03/06/2021 21:21:10 No significant changes Electronically Signed On 09-22-2023 22:15:28 EDT by WOO MARQUEZ Dictated By: Woo Marquez D.O. Signed By: 09/22/23221409/22/232214 DD/ 0740 TD/TT: Metal Off Bearer: FELIPA HealthcareRadiology Study observation (narrative)FELIPA HealthcareECG 12-LEAD Ordered By: Radiologist Radiology on 93-90-2810[facility] Work Phone: XR CHEST 2Von 99-48-2911[place], [place] [address] XRay Report Signed Patient: HAIR BRENNER MR#: [id number] : 1975 Acct:[id number] Age/Sex: 48 / M ADM Date: 09/22/23 Loc: LAB Attending Dr: Carlito Leung M.D. Ordering Physician: Carlito Leung M.D. Date of Service: 09/22/23 Procedure(s): XR chest 2V Accession Number(s): [id number] cc: Shaikh Heath Cordoba; Carlito Leung M.D. [address] [address] Patient Name: HAIR BRENNER MRN: [id number] date: 1975 Sex: M Assigned Patient Location: LAB Current Patient Location: LAB Accession/Order Number: [id number] Exam Date: 09/22/2023 07:50 Report Date: 09/22/2023 [...] Signed By: 09/22/23 1257 DD/ 1255 TD/TT: Metal Off Bearer:TBHRadiology, Radiologist, - 09/22/2023 [place] [address] XRay Report Signed Patient: HAIR BRENNER MR#: [id number] : 1975 Acct:[id number] Age/Sex: 48 / M ADM Date: 09/22/23 Loc: LAB Attending Dr: Carlito Leung M.D. Ordering Physician: Carlito Leung M.D. Date of Service: 09/22/23 Procedure(s): XR chest 2V Accession Number(s): [id number] cc: Shaikh Heath Cordoba; Carlito Leung M.D. [address] [place] [id number] Patient Name: HAIR BRENNER MRN: [id number] date: 1975 Sex: M Assigned Patient Location: LAB Current Patient Location: LAB Accession/Order Number: [id number] Exam Date: 09/22/2023 07:50 Report Date: 09/22/2023 [...] Signed By: 09/22/23 1257 DD/ 1255 TD/TT: Metal Off Bearer: FELIPA HealthcareRadiology Study observation (narrative)NOM HealthcareXR CHEST 2V Ordered By: Radiologist Radiology on 01-88-8509VAEYHannibal Regional Hospital Work Phone: XR LUMBAR SPINE MIN 4Von 04-62-5053[place] [address] XRay Report Signed Patient: HAIR BRENNER MR#: [id number] : 1975 Acct:[id number] Age/Sex: 48 / M ADM Date: 07/11/23 Loc: EC Attending Dr: Gerardo Parker M.D. Ordering Physician: Gerardo Parker M.D. Date of Service: 07/11/23 Procedure(s): XR lumbar spine min 4V Accession Number(s): [id number] cc: Shaikh Heath Cordoba; Gerardo Parker M.D. [address] [place] [id number] Patient Name: HAIR BRENNER MRN: [id number] date: 1975 Sex: M Assigned Patient Location: EC Current Patient Location: Accession/Order Number: [id number] Exam Date: 07/11/2023 10:18 Report Date: 07/12/2023 [...] Signed By: 07/12/23 1033 DD/ 1030 TD/TT: Metal Off Bearer:TBHRadiology, Radiologist, MD - 07/12/[address] [address] XRay Report Signed Patient: HAIR BRENNER MR#: [id number] : 1975 Acct:[id number] Age/Sex: 48 / M ADM Date: 07/11/23 Loc: EC Attending Dr: Gerardo Parker M.D. Ordering Physician: Gerardo Parker M.D. Date of Service: 07/11/23 Procedure(s): XR lumbar spine min 4V Accession Number(s): [id number] cc: Shaikh Heath Cordoba; Gerardo Parker M.D. [address] [address] Patient Name: HAIR BRENNER MRN: [id number] date: 1975 Sex: M Assigned Patient Location: Current Patient Location: Accession/Order Number: [id number] Exam Date: 07/11/2023 10:18 Report Date: 07/12/2023 [...] Signed By: 07/12/23 1033 DD/ 1030 TD/TT: Metal Off Bearer: FELIPA HealthcareRadiology Study observation (narrative)NOM HealthcareXR LUMBAR SPINE MIN 4VOrdered By: Radiologist Radiology on 42-92-4294[facility] Work Phone: MR LUMBAR SPINE WO CONon 92-36-2359[address] [address] Magnetic Resonance Report Signed Patient: HAIR BRENNER MR#: [id number] : 1975 Acct:[id number] Age/Sex: 48 / M ADM Date: 07/03/23 Loc: RAD Attending Dr: Shaikh Adalid Joe Ordering Physician: Shaikh Heath Cordoba Date of Service: 07/03/23 Procedure(s): MR lumbar spine wo con Accession Number(s): [id number] cc: Shaikh Heath Cordoba [address] [address] Patient Name: HAIR BRENNER MRN: [facility]:[id number] date: 1975 Sex: M Assigned Patient Location: [facility] Current Patient Location: RAD Accession/Order Number: [id number] Exam Date: 07/03/2023 09:10 Report Date: 07/03/2023 [...] Signed By: 07/03/23 1019 DD/ 1017 TD/TT: Metal Off Bearer:TBHRadiology, Radiologist, - 07/03/2023 [place] [address] Magnetic Resonance Report Signed Patient: HAIR BRENNER MR#: [id number] : 1975 Acct:[id number] Age/Sex: 48 / M ADM Date: 07/03/23 Loc: RUDDY Attending Dr: Shaikh Adalid Joe Ordering Physician: Shaikh Heath Cordoba Date of Service: 07/03/23 Procedure(s): MR lumbar spine wo con Accession Number(s): [id number] cc: Shaikh Heath Cordoba [address] [place] [address] Patient Name: HAIR BRENNER MRN: [facility]:[id number] date: 1975 Sex: M Assigned Patient Location: [facility] Current Patient Location: [facility] Accession/Order Number: [id number] Exam Date: 07/03/2023 09:10 Report Date: 07/03/2023 [...] Signed By: 07/03/23 1019 DD/ 1017 TD/TT: Metal Off Bearer: FELIPA HealthcareRadiology Study observation (narrative)[facility] LUMBAR SPINE WO CONOrdered By: Radiologist Radiology on 33-41-2273U[facility] Work Phone: XR FOREIGN BODY EYEon 42-46-4439[place] [phone] XRay Report Signed Patient: HAIR BRENNER MR#: [id number] : 1975 Acct:[id number] Age/Sex: 48 / M ADM Date: 07/03/23 Loc: RAD Attending Dr: Shaikh Adalid Joe Ordering Physician: Shaikh Heath Cordoba Date of Service: 07/03/23 Procedure(s): XR foreign body eye Accession Number(s): [id number] cc: Shaikh Heath Cordoba [address] [address] Patient Name: HAIR BRENNER MRN: [id number] date: 1975 Sex: M Assigned Patient Location: RAD Current Patient Location: RAD Accession/Order Number: [id number] Exam Date: 07/03/2023 08:50 Report Date: 07/03/2023 [...] M.D. Signed By: 07/03/23912 DD/ 9 TD/TT: Metal Off Bearer:TBHRadiology, Radiologist, MD - 07/03/2023 [place] [address] XRay Report Signed Patient: HAIR BRENNER MR#: [id number] : 1975 Acct:[id number] Age/Sex: 48 / M ADM Date: 07/03/23 Loc: RAD Attending Dr: Shaikh Adalid Joe Ordering Physician: Shaikh Heath Cordoba Date of Service: 07/03/23 Procedure(s): XR foreign body eye Accession Number(s): [id number] cc: Shaikh Heath Cordoba The [address] [address] Patient Name: HAIR BRENNER MRN: [id number] date: 1975 Sex: M Assigned Patient Location: RAD Current Patient Location: RAD Accession/Order Number: [id number] Exam Date: 07/03/2023 08:50 Report Date: 07/03/2023 [...] M.D. Signed By: 07/03/23912 DD/ 9 TD/TT: Metal Off Bearer: FELIPA HealthcareRadiology Study observation (narrative)[facility] HealthcareXR FOREIGN BODY EYEOrdered By: Radiologist Radiology on 03-95-3142VCJG [employer] Work Phone: XR LUMBAR SPINE 2 OR 3Von 73-84-8065[place] [address] XRay Report Signed Patient: HAIR BRENNER MR#: [id number] : 1975 Acct:[id number] Age/Sex: 48 / M ADM Date: 06/06/23 Loc: [facility] Attending Dr: Shaikh Adalid Joe Ordering Physician: Shaikh Heath Cordoba Date of Service: 06/06/23 Procedure(s): XR lumbar spine 2-3V Accession Number(s): [id number] cc: Shaikh Heath Cordoba The [place] [id number] Patient Name: HAIR BRENNER MRN: [id number] date: 1975 Sex: M Assigned Patient Location: RAD Current Patient Location: RAD Accession/Order Number: [id number] Exam Date: 06/06/2023 11:10 Report Date: 06/06/2023 [...] Signed By: 06/06/23 1303 DD/ 1300 TD/TT: Metal Off Bearer:TBHRadiology, Radiologist, - 06/06/2023 [place] [address] XRay Report Signed Patient: HAIR BRENNER MR#: [id number] : 1975 Acct:[id number] Age/Sex: 48 / M ADM Date: 06/06/23 Loc: RAD Attending Dr: Shaikh Adalid Joe Ordering Physician: Shaikh Heath Cordoba Date of Service: 06/06/23 Procedure(s): XR lumbar spine 2-3V Accession Number(s): [id number] cc: Shaikh Heath Cordoba The [place] [address] Patient Name: HAIR BRENNER MRN: [id number] date: 1975 Sex: M Assigned Patient Location: [facility] Current Patient Location: RAD Accession/Order Number: [id number] Exam Date: 06/06/2023 11:10 Report Date: 06/06/2023 [...] Signed By: 06/06/23 1303 DD/ 1300 TD/TT: Metal Off Bearer: [facility]PITALWaldo HealthcareRadiology Study observation (narrative)[facility] HealthcareXR LUMBAR SPINE 2 OR 3VOrdered By: Radiologist Radiology on 78-07-2597OXRB [employer] Work Phone: aMYLASEon 97-74-3681Fspvyyr [Catalytic activity/Vol]32 U/CCzbpzp61-477GonOhiohealth Nelsonville Health CenterComment on above:Performed By: #### JORDON MALHOTRA, CMP #### [facility] [address] [place] [address] Dr. Brady Dai AUTO DIFFon 54-17-0895HDCM #0.0 103/ulNormal0.0-0.1[facility] Health CenterComment on above:Performed By: #### CBC #### [facility] [address] [place] [address] Dr. Brady Jessicasophils/100 WBC (Bld)0.4 %Normal0.2-2.0[facility] Comment on above:Performed By: #### CBC #### [facility] [address] [place] [address] Dr. Brady Farrar #0.1 103/ulNormal0.0-0.7The [facility] HospitalComment on above: Performed By: #### CBC #### [facility] [address] [place] [address] Dr. Brady Summersosinophils/100 WBC (Bld)1.5 %Normal0.9-7.0[facility] Comment on above:Performed By: #### CBC #### [facility] [address] [place] [address] Dr. Brady Summersrythrocyte distribution width (RBC) [Ratio]13.2 %Zgqnsj53.0-15.0 [facility] Health CenterComment on above:Performed By: #### CBC #### [facility] [address] [place] [address] Dr. Brady SandersHematocrit (Bld) [Volume fraction]41.0 %Critically low42.0-54.0 The [facility] HospitalComment on above:Performed By: #### CBC #### [facility] [address] [place] [address] Dr. Brady SandersHemoglobin (Bld) [Mass/Vol]13.8 g/dLCritically low14.0-18.0The [facility] HospitalComment on above:Performed By: #### CBC #### [facility] [address] [place] [address] Dr. Brady James #0.03 10e3/ulNormal0.00-0.03The [facility] HospitalComment on above:Performed By: #### CBC #### [facility] [address] [place] [address] Dr. Brady James %0.4 %Normal0.0-0.5The [facility] HospitalComment on above: Performed By: #### CBC #### [facility] [address] [place] [address] Dr. Brady Sofia #1.8 103/ulNormal1.2-3.8The [facility] HospitalComment on above:Performed By: #### CBC #### [facility] [address] [place] [address] Dr. Brady Renehocytes/100 WBC (Bld)21.4 %Twvnlm19.5-60.0The [facility] HospitalComment on above:Performed By: #### CBC #### [facility] [address] [place] [address] Dr. Brady ValverdeUAL DIFF REQNONormalThe [facility] HospitalComment on above: Performed By: #### CBC #### [facility] [address] [place] [address] Dr. Brady SolisKyara (RBC) [Entitic mass]28.1 fvQjjjzk40.9-34.0The [facility] HospitalComment on above:Performed By: #### CBC #### [facility] [address] [place] [address] Dr. Brady Solis (RBC) [Mass/Vol]33.7 g/sVWdvcha20.9-35.2The [facility] HospitalComment on above:Performed By: #### CBC #### [facility] [address] [place] [address] Dr. Brady Solis (RBC) [Entitic vol]83.5 gLYugdiu73.0-94.0The [facility] HospitalComment on above:Performed By: #### CBC #### [facility] [address] [place] [address] Dr. Brady Chung #0.5 103/ulNormal0.3-0.8The [facility] HospitalComment on above:Performed By: #### CBC #### [facility] [address] [place] [address] Dr. Brady Lermaocytes/100 WBC (Bld)6.2 %Normal1.7-12.0The [facility] Comment on above:Performed By: #### CBC #### [facility] [address] [place] [address] Dr. Brady LivingstonUT #5.9 103/ulNormal1.4-6.5The [facility] HospitalComment on above:Performed By: #### CBC #### [facility] [address] [place] [address] Dr. Brady Livingstonutrophils/100 WBC (Bld)70.1 %Uvfhnw36.0-75.0The [facility] HospitalComment on above:Performed By: #### CBC #### [facility] [address] [place] [address] Dr. Brady Olivalet mean volume (Bld) [Entitic vol]9.6 fLNormal9.5-13.5The [facility] HospitalComment on above:Performed By: #### CBC #### [facility] [address] [place], [place] [address] Dr. Brady SandersPLT216 103/nuVcqyop001-008Qel [facility] HospitalComment on above: Performed By: #### CBC #### [facility] [address] [place], [place] [address] Dr. Brady SandersRBC4.91 106/ulNormal4.70-6.10The [facility] HospitalComment on above:Performed By: #### CBC #### [facility] [address] [place], [place] [address] Dr. Brady SandersWBC8.4 103/ulNormal4.0-11.0The [facility] HospitalComment on above: Performed By: #### CBC #### [facility] [address] [place] [address] Dr. Brady SandersCT ABD/PELV W CONon 46-30-3560NO ABD/PELV W CONEXAMINATION: CT ABD/PELV W CON [...] authenticated by: KAVIN BRIONES Date: 2022-07-25 10:58NormalThe [facility] County HospitalLIPASEon 91-07-3824Qorfdi [Catalytic activity/Vol]96.0 U/L Hkdgie11.0-393.0The [facility] HospitalComment on above:Performed By: #### LIPA, JORDON, CMP #### [facility] [address] [place] [address] Dr. Brady Gutierrez 14(COMP METB)on 96-74-7431Pznjvbd [Mass/Vol]3.4 g/dLNormal 3.4-5.0The [facility] HospitalComment on above:Performed By: #### LIPA, JORDON, CMP #### [facility] [address] [place] [address] Dr. Brady SandersAlbumin/Globulin [Mass ratio]0.9 {ratio}NormalThe [facility] HospitalComment on above:Performed By: #### LIPA, JORDON, CMP #### [facility] [address] [place] [address] Dr. Brady Contreras [Catalytic activity/Vol]88 U/QFnuoxl67-301Lak [facility] HospitalComment on above:Performed By: #### LIPA, JORDON, CMP #### [facility] [address] [place] [address] Dr. Brady Sheehan [Catalytic activity/Vol]27 U/MBfbjid00-76Ajv [facility] HospitalComment on above:Performed By: #### LIPA, JORDON, CMP #### [facility] [address] [place] [address] Dr. Brady Perdue gap [Moles/Vol]9.2 mmol/LNormalThe [facility] HospitalComment on above:Performed By: #### LIPA, JORDON, CMP #### [facility] [address] [place] [address] Dr. Brady Knight [Catalytic activity/Vol]18 U/TBipmeo44-58Shs [facility] HospitalComment on above:Performed By: #### LIPA, JORDON, CMP #### [facility] [address] [place] [address] Dr. Yilan ChangBilirubin [Mass/Vol]0.4 mg/dLNormal0.2-1.0The [facility] Comment on above:Performed By: #### JORDON MALHOTRA, CMP #### [facility] [address] [place] [address] [address] Brady SandersCalcium [Mass/Vol]8.5 mg/dLNormal8.5-10.1The [facility] Comment on above:Performed By: #### JORDON MALHOTRA, CMP #### [facility] [address] [place] [address] Dr. Brady SandersChloride [Moles/Vol]103 mmol/CDazbjv73-844Vqc [facility] Comment on above:Performed By: #### JORDON MALHOTRA, CMP #### [facility] [address] [place] [address] Dr. Brady SandersCO2 [Moles/Vol]31.1 mmol/SKlaeov40.0-32.0The [facility] Comment on above:Performed By: #### JORDON MALHOTRA, CMP #### [facility] [address] [place] [address] Dr. Brady SandersCreatinine [Mass/Vol]0.79 mg/dLNormal0.70-1.30The [facility] HospitalComment on above:Performed By: #### JORDON MALHOTRA, CMP #### [facility] [address] [place] [address] Dr. Abreu ChangEGFR-AF [place]>60Normal>=60The [facility] HospitalComment on above:Performed By: #### JORDON MALHOTRA, CMP #### [facility] [address] [place] [address] Dr. Abreu ChangEGFR-NON AF [place]>60Normal>=60The [facility] HospitalComment on above:Performed By: #### JORDON MALHOTRA, CMP #### [facility] [address] [place] [address] Dr. Brady SandersGlobulin (S) [Mass/Vol]3.8 g/dLNormalThe [facility] HospitalComment on above:Performed By: #### LIPA, JORDON, CMP #### [facility] [address] [place] [address] [address] Brady SandersGlucose [Mass/Vol]140 mg/dLCritically avmh59-575Zhy [facility] HospitalComment on above:Performed By: #### LIPA, JORDON, CMP #### [facility] [address] [place] [address] [address] Brady SandersPotassium [Moles/Vol]3.3 mmol/LCritically low3.5-5.1The [facility] HospitalComment on above:Performed By: #### LIPMaykel JORDON, CMP #### [facility] [address] [address] [address] Brady SandersProtein [Mass/Vol]7.2 g/dLNormal6.4-8.2[facility] Comment on above:Performed By: #### LIPJORDON Brar, CMP #### [facility] [address] [place] [address] Dr. Brady SandersSodium [Moles/Vol]140 mmol/FBiovla008-243Bnt [facility] Comment on above:Performed By: #### LIPJORDON Brar, CMP #### [facility] [address] [place] [address] Dr. Brady SandersUrea nitrogen [Mass/Vol]10.0 mg/dLNormal7.0-18.0The [facility] HospitalComment on above:Performed By: #### ROSCOE JORDON, CMP #### [facility] [address] [place] [address] Dr. Brady SandersUrea nitrogen/Creatinine [Mass ratio]12.7 mg/mgNormalThe [facility] HospitalComment on above:Performed By: #### LIPJORDON Brar, CMP #### [facility] [address] [place] [address] Dr. Brady SandersNM HEPATOBILIARY SCAN W EFon 50-27-5308LM HEPATOBILIARY SCAN W EF HIDA SCAN WITH GALLBLADDER EJECTION FRACTION HISTORY: Abdominal Pain. COMPARISON: Ultrasound 07/11/2022. METHOD: Following IV injection of 5. mCi of hbmutojnfs-95x-Owwnfjee, anterior imaging of the abdomen was acquired [...] Electronically authenticated by: KIM JARRETT Date: 2022-07-24 09:14NoPaulding County HospitalUS SINGLE QUAD RT UPPERon 31-33-4982UD SINGLE QUAD RT UPPER EXAMINATION: US SINGLE [...] Electronically authenticated by: MIKAYLA COVINGTON Date: 2022-07-11 11:55[facility] Medical CenterGLYCOHEMOGLOBIN A1Con 73-76-9321HSD RECOMMENDATIONSEE BELOW NormalThe [facility] HospitalComhavenwyck hospital on above:Result Comment: ADA RECOMMENDED LIMIT 4.0 - 6.0 ADA THERAPEUTIC TARGET < 7.0 ACTION SUGGESTED > 7.0Performed By: #### A1C #### [facility] [address] [place] [address] [address] Brady SandersGlucose [Mass/Vol]143 mg/dLTrinity Health System Twin City Medical CenterComment on above:Performed By: #### A1C #### [facility] [address] [place], [place] [address] Dr. Brady SandersHbA1c (Bld) [Mass fraction]6.6 %Critically high4.5-6.2The [facility] HospitalComment on above:Performed By: #### A1C #### [facility] [address] [place] [address] [address] Brady BarraganVID + FLU Quick Testingon 43-65-1742JNMI-CoV-2 (COVID-19) RNA ADELINA+probe Ql (Unsp spec)PositiveNortEncompass Health Rehabilitation Hospital of York Wizpert Other COVID + FLU Quick TestingNegativeNort [employer] Other CBC AUTO DIFFon 14-66-7545EZIC #0.0 103/ulNormal 0.0-0.1The [facility] HospitalComment on above:Performed By: #### CBC #### [facility] [address] [place] [address] Dr. Brady SandersBasophils/100 WBC (Bld)0.5 %Normal0.2-2.0The [facility] Comment on above:Performed By: #### CBC #### [facility] [address] [place] [address] Dr. Brady Farrar #0.1 103/ulNormal0.0-0.7The [facility] HospitalComment on above: Performed By: #### CBC #### [facility] [address] [place] [address] Dr. Brady Summersosinophils/100 WBC (Bld)1.8 %Normal0.9-7.0The [facility] Comment on above:Performed By: #### CBC #### [facility] [address] [place] [address] Dr. Brady Summersrythrocyte distribution width (RBC) [Ratio]13.5 %Aredyy46.0-15.0 The [facility] HospitalComment on above:Performed By: #### CBC #### [facility] [address] [place] [address] Dr. Brady SandersHematocrit (Bld) [Volume fraction]46.5 %Aocbqy47.0-54.0The [facility] HospitalComment on above:Performed By: #### CBC #### [facility] [address] [place] [address] Dr. Brady SandersHemoglobin (Bld) [Mass/Vol]15.6 g/eLRfovjt24.0-18.0The [facility] on above:Performed By: #### CBC #### [facility] [address] [place] [address] Dr. Brady James #0.02 10e3/ulNormal0.00-0.03The [facility] HospitalComment on above:Performed By: #### CBC #### [facility] [address] [place] [address] Dr. Brady James %0.3 %Normal0.0-0.5The [facility] on above: Performed By: #### CBC #### [facility] [address] [place] [address] Dr. Brady Sofia #1.8 103/ulNormal1.2-3.8The [facility] HospitalComment on above:Performed By: #### CBC #### [facility] [address] [place] [address] Dr. Brady Renehocytes/100 WBC (Bld)22.3 %Agxxfm01.5-60.0[facility] HospitalComhavenwyck hospital on above:Performed By: #### CBC #### [facility] [address] [place] [address] Dr. Brady ValverdeUAL DIFF REQNONormalThe [facility] HospitalComment on above: Performed By: #### CBC #### [facility] [address] [place] [address] Dr. Brady Solis (RBC) [Entitic mass]28.0 rhBxvdnn06.9-34.0The [facility] HospitalComment on above:Performed By: #### CBC #### [facility] [address] [place] [address] Dr. Brady Soils (RBC) [Mass/Vol]33.5 g/xWCtexnl65.9-35.2The [facility] HospitalComment on above:Performed By: #### CBC #### [facility] [address] [address] [address] Brady SolisV (RBC) [Entitic vol]83.3 uWRywhfy68.0-94.0The [facility] HospitalComment on above:Performed By: #### CBC #### [facility] [address] [place] [address] Dr. Brady Chung #0.5 103/ulNormal0.3-0.8The [facility] HospitalComment on above:Performed By: #### CBC #### [facility] [address] [place] [address] Dr. Brady Lermaocytes/100 WBC (Bld)6.1 %Normal1.7-12.0The [facility] on above:Performed By: #### CBC #### [facility] [address] [place] [address] Dr. Brady Beth #5.4 103/ulNormal1.4-6.5The [facility] HospitalComment on above:Performed By: #### CBC #### [facility] [address] [place] [address] Dr. Brady Livingstonutrophils/100 WBC (Bld)69.0 %Rvjabx33.0-75.0The [facility] HospitalComment on above:Performed By: #### CBC #### [facility] [address] [place] [address] Dr. Brady Olivalet mean volume (Bld) [Entitic vol]10.3 fLNormal9.5-13.5The [facility] Generalment on above:Performed By: #### CBC #### [facility] [address] [place] [address] Dr. Brady SandersPLT230 103/bkWienis510-284Epy [facility] HospitalComment on above: Performed By: #### CBC #### [facility] [address] [place] [address] Dr. Brady SandersRBC5.58 106/ulNormal4.70-6.10The [facility] HospitalComment on above:Performed By: #### CBC #### [facility] [address] [address] [address] Brady SandersWBC7.9 103/ulNormal4.0-11.0The [facility]Comhaven[facility]ck [facility] on above: Performed By: #### CBC #### [facility] [address] [address] [address] Brady SandersGLYCOHEMOGLOBIN A1Con [id number] RECOMMENDATIONSEE BELOWSelect Medical Trihealth Rehabilitation HospitalComhavenwyck hospital on above:Result Comment: ADA RECOMMENDED LIMIT 4.0 - 6.0 ADA THERAPEUTIC TARGET < 7.0 ACTION SUGGESTED > 7.0Performed By: #### A1C #### [facility] [address] [place] [address] Dr. Brady SandersGlucose [Mass/Vol]200 mg/dLNoPaulding County HospitalComment on above:Performed By: #### A1C #### [facility] [address] [place] [address] Dr. Brady SandersHbA1c (Bld) [Mass fraction]8.6 %Critically high4.5-6.2[facility] on above:Performed By: #### A1C #### [facility] [address] [place] [address] Dr. Brady SandersLIPID PROFILEon [id number]-HDL RATIO NORMSEE [facility] on above:Result Comment: 3.3 - 4.4 LOW RISK 4.4 - 7.1 AVERAGE RISK 7.1 - 11.0 MODERATE RISK >11.0 HIGH RISKPerformed By: #### LIPA JORDON, CMP #### [facility] [address] [address] [address] Brady SandersCholesterol [Mass/Vol]136 mg/dLNormal<=200The [facility] Comment on above:Performed By: #### LIPA, JORDON, CMP #### [facility] [address] [address] [address] Brady SandersCholesterol in HDL [Mass/Vol]26 mg/dLCritically esf55-55Ifz [facility] on above:Performed By: #### LIPAJORDON, CMP #### [facility] [address] [address] [address] Brady SandersCholesterol in LDL [Mass/Vol]77.2 mg/dLSelect Medical [facility] [place] on above:Performed By: #### LIPA JORDON, CMP #### [facility] [address] [address] [address] Brady Addison.total/Cholesterol in HDL [Mass ratio]5.2 {ratio} NormalUniversity Hospitals [facility] on above:Performed By: #### LIPMaykel JORDON, CMP #### [facility] [address] [address] [address] Brady Mccall NORMAL> or = 60 mg/dl - LOW CARDIOVASCULAR RISK <40 mg/dl - HIGH CARDIOVASCULAR RISKNoPaulding County HospitalComhavenwyck hospital on above:Performed By: #### JORDON MALHOTRA, CMP #### [facility] [address] [place] [address] Dr. Brady Reyes CALC NORMALSEE BELOWTrinity Health System Twin City Medical CenterComhavenwyck hospital on above:Result Comment: <100 mg/dl OPTIMAL 100 - 129 mg/dl NEAR OR ABOVE OPTIMAL 130 - 159 mg/dl BORDERLINE HIGH 160 - 189 mg/dl HIGH >190 mg/dl VERY HIGH Performed By: #### LIPJORDON Brar, CMP #### [facility] [address] [address] [address] Brady SandersTriglyceride [Mass/Vol]164 mg/dLCritically high<=150The [facility] on above:Performed By: #### LIPA JORDON, CMP #### [facility] [address] [address] [address] Brady SandersVLDL CALC32.8 mg/dLNoPaulding County HospitalComhavenwyck hospital on above: Performed By: #### LIPA, JORDON, CMP #### [facility] [address] [address] [address] Brady SandersMICROALBUMIN, [place]SHLAND URon 13-82-0026hBJY<1.3Normal<=30.0The [facility] HospitalComment on above:Performed By: #### LIPA, JORDON, CMP #### [facility] [address] [place] [address] Dr. Brady Gutierrez 14(COMP METB)on 29-98-8505Drqiywk [Mass/Vol]3.8 g/dLNormal 3.4-5.0The [facility] HospitalComment on above:Performed By: #### LIPA, JORDON, CMP #### [facility] [address] [place] [address] Dr. Brady SandersAlbumin/Globulin [Mass ratio]1.0 {ratio}NormalThe [facility] HospitalComment on above:Performed By: #### LIPA, JORDON, CMP #### [facility] [address] [place] [address] Dr. Brady Contreras [Catalytic activity/Vol]102 U/SVjpvrp57-221Pzx [facility] HospitalComment on above:Performed By: #### LIPA JORDON, CMP #### [facility] [address] [place] [address] Dr. Brady Sheehan [Catalytic activity/Vol]41 U/WZveaon01-50Qtz [facility] HospitalComment on above:Performed By: #### KAVYAA, JORDON, CMP #### [facility] [address] [place] [address] Dr. Brady Perdue gap [Moles/Vol]14.7 mmol/LNormalThe [facility] Comment on above:Performed By: #### LIPA, JORDON, CMP #### [facility] [address] [place] [address] Dr. Brady SandersAST [Catalytic activity/Vol]24 U/VJxxiur56-65Ynv [facility] HospitalComment on above:Performed By: #### LIPA, JORDON, CMP #### [facility] [address] [place] [address] Dr. Brady SandersBilirubin [Mass/Vol]0.4 mg/dLNormal0.2-1.0The [facility] Comment on above:Performed By: #### LIPA, JORDON, CMP #### [facility] [address] [address] [address] Brady SandersCalcium [Mass/Vol]8.8 mg/dLNormal8.5-10.1The [facility] Comment on above:Performed By: #### JORDON MALHOTRA, CMP #### [facility] [address] [address] [address] Brady SandersChloride [Moles/Vol]99 mmol/YLawkpr78-076Ttv [facility] Comment on above:Performed By: #### JORDON MALHOTRA, CMP #### [facility] [address] [address] [address] Brady SandersCO2 [Moles/Vol]26.8 mmol/WLojgsm92.0-32.0The [facility] Comment on above:Performed By: #### JORDON MALHOTRA, CMP #### [facility] [address] [address] [address] Brady SandersCreatinine [Mass/Vol]1.00 mg/dLNormal0.70-1.30The [facility] HospitalComment on above:Performed By: #### JORDON MALHOTRA, CMP #### [facility] [address] [place] [address] Dr. Brady SummersGFR-AF BR[place] ISLANDER>60Normal>=60The [facility] HospitalComment on above:Performed By: #### JORDON MALHOTRA, CMP #### [facility] [address] [address] [address] Brady Wilson-NON AF [place] ISLANDER>60Normal>=60The [facility] HospitalComment on above:Performed By: #### JORDON MALHOTRA, CMP #### [facility] [address] [address] [address] Brady SandersGlobulin (S) [Mass/Vol]3.7 g/dLNormalThe [facility] HospitalComment on above:Performed By: #### LIPJORODN Brar, CMP #### [facility] [address] [address] [address] Brady SandersGlucose [Mass/Vol]317 mg/dLCritically uziu60-395Cmy [facility] HospitalComment on above:Performed By: #### JORDON MALHOTRA, CMP #### [facility] [address] [address] [address] Brady SandersPotassium [Moles/Vol]3.5 mmol/LNormal3.5-5.1The [facility] Comment on above:Performed By: #### JORDON MALHOTRA, CMP #### [facility] [address] [place] [address] Dr. Brady SandersProtein [Mass/Vol]7.5 g/dLNormal6.4-8.2[facility] Comment on above:Performed By: #### JORDON MALHOTRA, CMP #### [facility] [address] [place] [address] Dr. Brady SandersSodium [Moles/Vol]137 mmol/HAxgzju083-594Hen [facility] Comment on above:Performed By: #### JORDON MALHOTRA, CMP #### [facility] [address] [place] [address] Dr. Brady SandersUrea nitrogen [Mass/Vol]11.0 mg/dLNormal7.0-18.0The [facility] HospitalComment on above:Performed By: #### JORDON MALHOTRA, CMP #### [facility] [address] [place] [address] Dr. Brady SandersUrea nitrogen/Creatinine [Mass ratio]11.0 mg/mgNormalThe [facility] HospitalComment on above:Performed By: #### JORDON MALHOTRA, CMP #### [facility] [address] [place] [address] Dr. Brady SandersUrinalysis - AUTOMATEDon 52-42-9969Dnillvsmat (U)clearNoResident Gifts Other Bilirubin Ql (U)NegativeOdyssey Airlines Other Color (U)medium tellowNwashington university medical center [employer] Other Glucose Ql (U)>1000NoRes[employer] Other Hemoglobin Ql (U)traceOdyssey Airlines Other Ketones Ql (U)NegativeOd[employer] Other Leukocyte esterase Test strip Ql (U)traceOdyssey [employer] Other Nitrite Ql (U)[employer] Other pH (U)5.5 [pH][employer] Other Protein Ql (U)NegativeOd[employer] Other Specific gravity (U) [Rel density]1.015[facility] [employer] Other Urobilinogen (U) [Mass/Vol]0.2 mg/dLAmbria Dermatology [employer] Other Urinalysis - AUTOMATEDResident Gifts Other Urine Cultureon [id number] identified Cx Nom (U)Reason for Exam Dysuria Urine >100,000 colonies/ml mixed bacterial skin contaminants 2 Days PERFORMED BY: [address] [id number] PATHOLOGIST UPSET WELDING MACHINE OPERATOR TIA CORDOVA M.D.[facility] CenterComment on above: Performed By: #### CUU #### [place] [address] USABacteria identified Cx Nom (U)[employer] Other Quick Fluon 29-47-4745GJXSU Ab CF (S) [Titer]Negative [employer] Other FLUBV Ab CF (S) [Titer]NegativeOdyssey [employer] Other Vital Signs Date TimeVital SignValuePerforming ZzwbtotvnUbrmshoj91-15-3501 17:30-0500 Diastolic blood nipweltd49 mm[Hg]Jenn Finney MENTAL HEALTH ASSISTANT Work Phone: [facility]11-09-2025 17:30-0500Heart rate74 /minJenn Barry APRN - MENTAL HEALTH ASSISTANT Work Phone: [facility]11-09-2025 17:30-0500 Respiratory rate16 /minJenn Barry APRN - MENTAL HEALTH ASSISTANT Work Phone: [facility]11-09-2025 17:30-2123AtA7% (BldA) [Mass fraction]95 %Jenn Barry SOLE SCRAPER - MENTAL HEALTH ASSISTANT Work Phone: [facility]11-09-2025 17:30-0500Systolic blood bwsrgyts965 mm[Hg]Jenn Barry APRN - MENTAL HEALTH ASSISTANT Work Phone: [facility]11-09-2025 14:51-0500Body .4 cmLmark Barry SOLE SCRAPER - MENTAL HEALTH ASSISTANT Work Phone: [facility]11-09-2025 14:51-0500Body mass index (BMI) [Ratio]40.37 kg/m2Jenn Barry APRN - MENTAL HEALTH ASSISTANT Work Phone: [facility]11-09-2025 14:51-0500Body vwblkjrxjna84.1 [degF]Jenn Barry SOLE SCRAPER - MENTAL HEALTH ASSISTANT Work Phone: [facility]11-09-2025 14:51-0500Body aegsym203.8 kgJenn Barry APRN - MENTAL HEALTH ASSISTANT Work Phone: [facility]11-04-2025 08:31-0500Body ltfrdeyrxfz24.1 [degF]Yves Jose MD Work Phone: [facility] HospitalStockezySmyth County Community HospitalDdcgvk87-44-8746 08:31-0500Diastolic blood yuyjotsm43 mm[Hg]Yves Jose MD Work Phone: [facility] [employer] InstrumentsSmyth County Community HospitalComment on above:pt aware of BP and states he wants will monitor at adum18-85-9209 08:31-0500Respiratory rate 20 /minThchucho Jose MD Work Phone: [employer]11-04-2025 08:31-2831CyY8% (BldA) [Mass fraction]93 %Yves Jose MD Work Phone: [employer]11-04-2025 08:31-0500Systolic blood tgkzuubg618 mm[Hg]Yves Jose MD Work Phone: [employer] The Metrohealth SystemComment on above:pt aware of BP and states he wants will monitor at jmmc54-70-1924 07:40-0500Body mass index (BMI) [Ratio]40.37 kg/y2ChenyYves Jose MD Work Phone: [employer]11-04-2025 07:40-0500Body tduswu074.8 kgYves Jose MD Work Phone: [employer]11-04-2025 07:40-0500Heart cygn610 /minYves Jose MD Work Phone: [employer]10-29-2025 14:40-0400Body .42 Adarshisa Asha MENTAL HEALTH ASSISTANT-C Work Phone: [facility]10-29-2025 14:40-0400 Body mass index (BMI) [Ratio]40.4 kg/m2Jenn Barry MENTAL HEALTH ASSISTANT-C Work Phone: [facility]10-29-2025 14:40-0400 Body whvccwdomgj09.1 [degF]Jenn Barry MENTAL HEALTH ASSISTANT-C Work Phone: [facility]10-29-2025 14:40-0400 Body yvcatc815.02 kgLuannesa Asha MENTAL HEALTH ASSISTANT-C Work Phone: [facility]10-29-2025 14:40-0400 Diastolic blood pjicxreo39 mm[Hg]Jenn Aichholz MENTAL HEALTH ASSISTANT-C Work Phone: [facility]10-29-2025 14:40-0400 Heart rate94 /Ruben Rinaldiholz MENTAL HEALTH ASSISTANT-C Work Phone: [facility]10-29-2025 14:40-0400 Respiratory rate16 /Ruben Rinaldiholz MENTAL HEALTH ASSISTANT-C Work Phone: [facility]10-29-2025 14:40-0400 SaO2% (BldA) [Mass fraction]97 %Jenn Rinaldiholz MENTAL HEALTH ASSISTANT-C Work Phone: [facility]10-29-2025 14:40-0400 Systolic blood qfamcpnd477 mm[Hg]Jenn Yez MENTAL HEALTH ASSISTANT-C Work Phone: [facility]08-07-2025 10:18-0400 Heart rate62 /Irina Lovell MD Work Phone: [facility]08-07-2025 10:18-0400 Respiratory rate11 /Irina Lovell MD Work Phone: [facility]08-07-2025 10:18-3576CbX8% (BldA) [Mass fraction]93 %Morgan Lovell MD Work Phone: [facility]08-07-2025 10:15-0400Diastolic blood otnxfarh01 mm[Hg]Morgan Lovell MD Work Phone: [facility]08-07-2025 10:15-0400Systolic blood enuykbwg487 mm[Hg]Morgan Lovell MD Work Phone: [facility]08-07-2025 09:45-0400Body .01 [degF]Morgan Lovell MD Work Phone: [facility]07-29-2025 11:06-0400Body ugqtve541.4 cmMorgan Lovell MD Work Phone: [facility]07-29-2025 11:06-0400Body mass index (BMI) [Ratio]41.16 kg/a3FyhifngMorgan Lovell MD Work Phone: [facility]07-29-2025 11:06-0400Body oqwxss791.52 kgMorgan Lovell MD Work Phone: [facility]07-09-2025 08:36-0400Body mass index (BMI) [Ratio]41.16 kg/m2Jenn Barry MENTAL HEALTH ASSISTANT Work Phone: [facility] HospitalOdszlobuoy91-26-4496 08:36-0400Body temperature 98.1 [degF]Jenn Barry MENTAL HEALTH ASSISTANT Work Phone: [facility] HospitalKrzizosadb49-22-3878 08:36-0400Body psavfa471.52 kgJenn Barry MENTAL HEALTH ASSISTANT Work Phone: [facility] HospitalZevqzqnsql40-11-4578 08:36-0400Diastolic blood ujruuhki07 mm[Hg]Jenn Asha MENTAL HEALTH ASSISTANT Work Phone: [facility] HospitalQhltyhboit89-25-8969 08:36-0400Heart rate90 /min Jenn Asha MENTAL HEALTH ASSISTANT Work Phone: [facility] HospitalBssdjixuqs97-99-8250 08:36-0400Respiratory rate20 /minJenn Barry MENTAL HEALTH ASSISTANT Work Phone: [facility] HospitalWjjfmvaojf07-34-1640 08:36-9014UlA0% (BldA) [Mass fraction]94 %Jenn Asha MENTAL HEALTH ASSISTANT Work Phone: [facility] HospitalUvvztdanba55-75-9406 08:36-0400Systolic blood eapmxduv58 mm[Hg]Jenn Asha MENTAL HEALTH ASSISTANT Work Phone: [facility] HospitalIvpcdzmxoq79-12-3160 09:59-0400Diastolic blood cezipdzy56 mm[Hg]Jenn Asha MENTAL HEALTH ASSISTANT Work Phone: [facility] HospitalIcywcnwwcx64-35-9197 09:59-0400Systolic blood yqhollys580 mm[Hg]Jenn Barry MENTAL HEALTH ASSISTANT Work Phone: [facility] HospitalQlsfpjmbks84-76-0268 09:25-0400Body mass index (BMI) [Ratio]41.59 kg/m2Jenn Barry MENTAL HEALTH ASSISTANT Work Phone: [facility] HospitalKubtnqsprn55-04-2984 09:25-0400Body temperature 97.81 [degF]Jenn Barry MENTAL HEALTH ASSISTANT Work Phone: [facility] HospitalUoxmqgpvqv72-92-8343 09:25-0400Body iuhqxn929.97 kgJenn Barry MENTAL HEALTH ASSISTANT Work Phone: [facility] HospitalOdbywlfley53-42-2461 09:25-0400Heart rate94 /min Jenn Barry MENTAL HEALTH ASSISTANT Work Phone: [facility] HospitalWigvtwbkon98-13-5581 09:25-0400Respiratory rate18 /minLisa Barry MENTAL HEALTH ASSISTANT Work Phone: [facility] HospitalKtadjdrild18-52-7868 09:25-3452QoB0% (BldA) [Mass fraction]96 %Jenn Barry MENTAL HEALTH ASSISTANT Work Phone: [facility] HospitalTncsmihhim01-02-7911 09:07-0400Body mass index (BMI) [Ratio]42.35 kg/n1Znjinmvqmalik Palomarestrick MENTAL HEALTH ASSISTANT Work Phone: [facility] HospitalJwyautugqb56-90-7512 09:07-0400Body temperature 97.3 [degF]Anna White MENTAL HEALTH ASSISTANT Work Phone: [facility] HospitalVmwuusdzsv57-73-2144 09:07-0400Body wboyry736.6 kgBrmalik White MENTAL HEALTH ASSISTANT Work Phone: [facility] HospitalIprycnncso75-61-7803 09:07-0400Diastolic blood kounayge43 mm[Hg]Anna White MENTAL HEALTH ASSISTANT Work Phone: [facility] HospitalBdtwficnat86-65-0349 09:07-0400Heart rate85 /min Anna Palomarestrick MENTAL HEALTH ASSISTANT Work Phone: [facility] HospitalTqxdbwmmrk86-56-3321 09:07-7772VeN4% (BldA) [Mass fraction]95 %Anna Rojaspatrick MENTAL HEALTH ASSISTANT Work Phone: [facility] HospitalZhspepgzsf45-49-4634 09:07-0400Systolic blood qqvswylo409 mm[Hg]Anna Palomarestrick MENTAL HEALTH ASSISTANT Work Phone: [facility] HospitalYjxqrzyyrg40-14-6027 14:10-0400Heart rate67 /min Carlito Leung DO Work Phone: [facility] [employer]07-15-2024 14:10-0400 Respiratory rate14 /minDkaiian Leung DO Work Phone: [facility]ITALXiang[facility]ENTERCareFamilyEZDGUY59-64-7695 14:10-0379RpS8% (BldA) [Mass fraction]94 %Carlito Leung DO Work Phone: [facility]ENTERCareFamilyEOUZFR22-94-1930 14:00-0400Diastolic blood qfeaxhlr41 mm[Hg]Carlito Leung DO Work Phone: [facility]ITALXiang[facility] CENTERCareFamilyXRGPEN04-71-0705 14:00-0400Systolic blood yyiktjea953 mm[Hg]Carlito Leung DO Work Phone: [facility]ITALXiang[facility]ENTERCareFamilyLFLVLA02-76-6136 13:15-0400Body kjeqwogittu22.11 [degF]Carlito Leung DO Work Phone: [facility] [employer]07-09-2024 13:06-0400Body inzrcd105.4 cmDyclarice Leung DO Work Phone: [facility]ENTERCareFamilyRBDBKE25-68-8073 13:06-0400Body mass index (BMI) [Ratio]43.54 kg/f3OhegoCarlito Leung DO Work Phone: [facility]ENTERCareFamilyGWXHYK35-87-2586 13:06-0400Body khhlqa536.69 kgDyclarice Leung DO Work Phone: [facility]12-21-2022 18:15-0500Body .88 Jojo Cannon Other [employer] Other 12-21-2022 18:15-0500Body mass index (BMI) [Ratio] 47.46 kg/l3Aemqmhvalerie Cannon Other [employer] Other 12-21-2022 18:15-0500Body vkdggeyspub53 [degF]Mamie Sweetmond Other [employer] Other 12-21-2022 18:15-0500Body zohqmi699.76 kgMamie Cannon Other [employer] Other 12-21-2022 18:15-0500Respiratory rate18 /minMamie Cannon Other [employer] Other 12-21-2022 18:15-4445EzN2% (BldA) [Mass fraction]94 % Mamie Cannon Other [employer] Other 07-20-2022 10:30-0400Body alrsco942.88 Jojo Cannon Other [employer] Other 07-20-2022 10:30-0400Body mass index (BMI) [Ratio] 46.11 kg/b2Owqujtvalerie Cannon Other [employer] Other 07-20-2022 10:30-0400Body abzjeuzhrxz16.1 [degF]Mamie Sweetmond Other [employer] Other 07-20-2022 10:30-0400Body taopld760.22 kgMamie Cannon Other [employer] Other 07-20-2022 10:30-0400Diastolic blood jnxyqsrc57 mm[Hg] Mamie Cannon Other [employer] Other 07-20-2022 10:30-0400Respiratory rate20 /minMamie Cannon Other [employer] Other 07-20-2022 10:30-8377KuT6% (BldA) [Mass fraction]98 % Mamie Sweetmond Other [employer] Other 07-20-2022 10:30-0400Systolic blood xakysnas635 mm[Hg] Mamie Kassandra Other [employer] Other 2022 10:00-0500Body ugfwhx382.88 cmAjuancho Dimas Other [employer] Other 2022 10:00-0500Body mass index (BMI) [Ratio] 49.28 kg/k6PpdbwAlexandra Dimas Other [employer] Other 2022 10:00-0500Body lwnjsjhybmb59.4 [degF]Alexandra Dimas Other [employer] Other 2022 10:00-0500Body bohtjn972.84 kgAlexandra Dimas Other [employer] Other 2022 10:00-0500Diastolic blood qinotpqy85 mm[Hg] Alexandra Dimas Other [employer] Other 2022 10:00-0500Respiratory rate18 /minAmbjennifer Dimas Other [employer] Other 2022 10:00-5893ZaR4% (BldA) [Mass fraction]96 % Alexandra Dimas Other [employer] Other 2022 10:00-0500Systolic blood unclccie095 mm[Hg] Alexandra Wing Other [employer] Other 11-29-2021 10:00-0500Body uarrip608.88 cmAmbjennifer Gill Other [employer] Other 11-29-2021 10:00-0500Body mass index (BMI) [Ratio] 48.82 kg/u6SahuzAlexandra Gill Other [employer] Other 11-29-2021 10:00-0500Body cacgmibdupp55.4 [degF]Alexandra Hannadelfinasusan Other [employer] Other 11-29-2021 10:00-0500Body sismvw240.3 kgAlexandra Gill Other [employer] Other 11-29-2021 10:00-1229QdX8% (BldA) [Mass fraction]95 % Alexandra Gill Other [employer] Other Encounters Encounter DateEncounter TypeCare ProviderFacilityStart: 01-30-2025 End: 32-67-2762Eyyfurkju department patient visitJENN Davison [facility] HospitalComment on above:Acute maxillary sinusitis, recurrence not specified (Primary Dx); Acute cough; WheezingStart: 01-25-2025 End: 17-96-8264Ysqzdznnl department patient visitYves Jose MD Work Phone: [facility] Emergency DepartmentComment on above: Bronchitis (Primary Dx); Acute coughStart: 01-20-2025 End: 86-44-7433aqmdqztkkjAUAO J. AICKyaraCarleylincoln Greenwood HospitalStart: 01-20-2025 End: 03-53-4377Manxuuqluq hospital [facility] by physicianN[facility] LABComment on above:ArrivedStart: 01-19-2025 End: 40-10-4476rzizxapikuForn J Aichholz MENTAL HEALTH ASSISTANT-C Work Phone: -[facility] ClydeStart: 01-19-2025 End: 82-45-3221Izjkjgy encounter procedureJenn Barry MENTAL HEALTH ASSISTANT-C-[facility] [place] Work Phone: Start: 11-15-2024 End: 50-51-2133Fqdjrzrpj Result EncounterLisa Barry MENTAL HEALTH ASSISTANT Work Phone: noms External Department UnsolicitedStart: 11-15-2024 End: 97-39-6047Uebriqtrb Result EncounterLisa Barry MENTAL HEALTH ASSISTANT Work Phone: noms External Department UnsolicitedStart: 11-15-2024 End: 66-01-5858givqhgzxjbTHPF J. AICKyaraJose Alberto [facility] HospitalStart: 11-15-2024 End: 19-58-9487Zbvxpekfhj hospital visit by physicianN[facility] Laboratory Schedule [facility] LABComment on above:ArrivedStart: 10-28-2024 End: 27-97-7762Tnfenlcvs Result EncounterGeneric External Data ProviderNOMS External Department UnsolicitedStart: 10-28-2024 End: 29-43-6195Libwbnquc Result EncounterGeneric External Data ProviderNOMS External Department UnsolicitedStart: 10-28-2024 End: 50-03-8730ndydsrffezSKPNQUUEstella Gamino [facility] HospitalStart: 10-28-2024 End: 56-67-9376Dhqxzyinme hospital visit by physicianMorgan Lovell MD Work Phone: mZ EndoscopyComment on above:Positive colorectal cancer screening using Cologuard testStart: 10-05-2024 End: 96-64-3985cujbsckuykOAJYN [facility] HospitalStart: 10-05-2024 Encounter for other [facility]pro[facility]Henry [facility] Start: 10-05-2024 End: 62-05-7974Hdkdfwm encounter statusMthz [facility] Work Phone: Start: 10-05-2024 End: 86-56-8414Vuneadsxlq hospital visit by physicianMt E[facility] Comment on above:Pre-op testingStart: 09-29-2024 End: 39-50-2538Orkfoi flowsheetLisa Aichholz MENTAL HEALTH ASSISTANT Work Phone: noms [facility] FMStart: 09-29-2024 End: 47-21-9682Ydwodq flowsheetLisa Aichholz MENTAL HEALTH ASSISTANT Work Phone: noms CW FMStart: 09-29-2024 End: 47-28-3870Hwyzib outpatient visit 25 minutesLisa Kristopherhholz MENTAL HEALTH ASSISTANT Work Phone: noms [facility] FMComment on above:Type 2 diabetes mellitus [...] sciatica; Pain of right heelStart: 09-29-2024 End: 44-67-2906byejvjmterTLTM AICHHOLZNot AvailableStart: 09-02-2024 End: 50-58-7780UrofvqFxnp Kristopherkyaraewa MENTAL HEALTH ASSISTANT Work Phone: noms CWM FMComment on above:Dyslipidemia (Primary Dx) DyslipidemiaStart: 09-01-2024 End: 37-77-5109Cjtvcvqdk Result EncounterJenn Rinaldiewa MENTAL HEALTH ASSISTANT Work Phone: noms External Department UnsolicitedStart: 09-01-2024 End: 92-10-7661Nfrvpswie Result EncounterLisa Rinaldiewa MENTAL HEALTH ASSISTANT Work Phone: noms External Department UnsolicitedStart: 09-01-2024 End: 75-39-0556bjqgcbmpfsVOHKEvangelista Light [facility] HospitalStart: 09-01-2024 End: 21-26-6694Hagaqlaawx hospital visit by Chica Finney MENTAL HEALTH ASSISTANT Work Phone: [facility] LABStart: 06-29-2024 End: 77-98-4232Aimdfv flowssusanJenn Barry MENTAL HEALTH ASSISTANT Work Phone: noms CWM FMStart: 06-29-2024 End: 81-29-1365Cezkea flowssusanJenn Summerskyaraewa MENTAL HEALTH ASSISTANT Work Phone: noms CWM FMStart: 06-29-2024 End: 70-04-3988skvgavdmckGCWE AICHHOLZNot AvailableStart: 06-29-2024 End: 86-01-0499Nycldm outpatient visit 25 minutesJenn Barry MENTAL HEALTH ASSISTANT Work Phone: NOLQ CWM FMComment on above:Obstructive sleep apnea syndrome (Primary Dx); Morbid (severe) obesity due to excess calories (CMS/HCC); Body mass index (BMI) 40.0-44.9, adult (CMS/HCC); Essential hypertension (CMS/HCC); Type 2 diabetes mellitus without complication, without long-term current use of insulin; Depression with anxiety; Dyslipidemia (CMS/HCC); Hyperuricemia; Screening for prostate cancer; JAN (generalized anxiety disorder) ([facility]/HCC); Acute bilateral low back pain with right-sided sciaticaStart: 05-06-2024 End: 96-22-4582LtsbcvQeaugsvv Fitzpatrick MENTAL HEALTH ASSISTANT Work Phone: noms CWM FMComment on above:Essential hypertension (CMS/HCC)Start: 03-25-2024 End: 31-66-8787XmligtZofidoahParas White MENTAL HEALTH ASSISTANT Work Phone: noms CWM FMComment on above:Essential hypertension (CMS/HCC)Start: 03-23-2024 End: 67-95-2856PkraqxSkwvycagParas White MENTAL HEALTH ASSISTANT Work Phone: noms CWM FMComment on above:Type 2 diabetes mellitus without complication, without long-term current use of insulin (CMS/HCC); JAN (generalized anxiety disorder) ([facility]/HCC)Start: 03-22-2024 End: 15-19-1729njtggnnkngCbrwjcz Vytautas Giedrarobert MDFacility:PM [place] Start: 03-08-2024 End: 46-32-7981PoejdrGedkgeowNelida White MENTAL HEALTH ASSISTANT Work Phone: noms CWM FMComment on above:Essential hypertension ([facility]/HCC)Type 2 diabetes mellitus without complication, without long-term current use of insulin ([facility]/HCC); JAN (generalized anxiety disorder) ([facility]/HCC)Start: 03-08-2024 End: 84-07-1925rsnhbhclldHbydgzg Vytautas Giedraitis MDFacility:[facility] [place] Start: 02-23-2024 End: 30-00-2088suawsrxnnvNvobtvu Vytautas Giedraitis MDFacility:[facility] [place] Start: 01-20-2024 End: 13-25-4347ZxvmtjItklElodia WATTS CWM FMComment on above:Type 2 diabetes mellitus without complication, without long-term current use of insulin ([facility]/HCC)Start: 01-05-2024 End: 27-58-7842Mfmncj Xavier White MENTAL HEALTH ASSISTANT Work Phone: noms CWM FMComment on above:Type 2 diabetes mellitus without complication, without long-term current use of insulin (CMS/HCC) (P rimary Dx)Start: 12-30-2023 End: 14-71-6945Lyetux flowsEmy Palomarestrick MENTAL HEALTH ASSISTANT Work Phone: noms CWM FMStart: 12-30-2023 End: 66-95-7185Ivzlge flowsheetAnna Palomarestrick MENTAL HEALTH ASSISTANT Work Phone: noms CWM FMStart: 12-30-2023 End: 65-12-1096Bxlyks outpatient visit 15 minutesBrmalik Rojaspatrick MENTAL HEALTH ASSISTANT Work Phone: noms CWM FMComment on above:Type 2 diabetes mellitus without complication, without long-term current use of insulin (CMS/HCC) (P rimary Dx); Dyslipidemia (CMS/HCC); Essential hypertension (CMS/HCC); Positive colorectal cancer screening using Cologuard test; Screening for colon cancer; Constipation, unspecified constipation typeStart: 12-30-2023 End: 68-37-2642blpxgclrlbKWWJHFEP FITLESTRICKNot AvailableStart: 11-03-2023 End: 99-73-8672cuawvnhlieSorjggi Vytautas Giedraitis Facility:[facility] [place] Start: 10-06-2023 End: 45-79-6087Kgxbzgoagb hospital visit by physicianCarlito Leung DO Work Phone: mZ ORComment on above:Post-op pain (Primary Dx) Start: 39-18-5847Rnspfboehpqp stateAnna White MENTAL HEALTH ASSISTANT Work Phone: noms HealthcareStart: 09-22-2023 End: 58-66-6022Qafzpuyfh Result EncounterGeneric External Data ProviderNOMS External Department UnsolicitedStart: 09-22-2023 End: 67-36-7926Upkiuwgjj Result EncounterGeneric External Data ProviderNOMS External Department UnsolicitedStart: 07-24-2023 End: 42-74-9517okrrlebggpFGERMEMercy Health Clermont Hospitaltart: 07-12-2023 End: 20-62-7249Xrjdugagf Result EncounterGeneric External Data ProviderNOMS External Department UnsolicitedStart: 07-12-2023 End: 64-86-0420Uocumfftl Result EncounterGeneric External Data ProviderNOMS External Department UnsolicitedStart: 07-03-2023 End: 95-36-4966Xeqfkwypw Result EncounterSnava Cordoba MD Work Phone: noms External Department UnsolicitedStart: 07-03-2023 End: 75-70-5078Qflgzhytq Result EncounterSnava Cordoba MD Work Phone: noms External Department UnsolicitedStart: 06-23-2023 End: 27-96-4326gmysmzhttxNMYMOGKeenan Private Hospitaltart: 06-06-2023 End: 74-39-1538Tnzeoqwfp Result EncounterSnava Cordoba MD Work Phone: noms External Department UnsolicitedStart: 06-06-2023 End: 47-75-2754Rjmmjazma Result EncounterSnava Cordoba MD Work Phone: noms External Department UnsolicitedStart: 06-05-2023 Patient encounter Lindsey Esteswilberto MORALES Work Phone: noms HealthcareStart: 07-25-2022 End: 03-13-7307odalxvbrbsMR JACK HAY .Facility:A5Luhea: 07-24-2022 End: 81-65-4215nvrczmglvxRLXSJV H FAWWADFacility:H8Rfvlb: 07-11-2022 End: 04-68-0325uifbossregDMWNPU H FAWWADFacility:L5Munsw: 06-03-2022 End: 77-50-4162bnzoynibufSLKWSM H FAWWADFacility:Y8Pwjza: 03-13-2022 End: 49-09-2101spfukhweloDzkkcf Dymond Other [employer] Other Start: 42-72-1182Dgbxxm outpatient visit 15 minutes Mamie [facility] ClydeStart: 03-07-2022 End: 74-32-2963hermxmuckfVKNTNE Kyara FAWWADFacility:Y1Ieezg: 10-10-2021 End: 91-46-2401lnqxobghspOvpspb Dymond Other noAIS Other Start: 79-16-4360Mepdqn outpatient visit 15 minutes Mamie JohnnyG [facility] ClydeStart: 10-10-2021 End: 42-84-8728Nvutpkdi ReferredNP-C Mamie Cannon Work Phone: [facility] CampusStart: 05-10-2021 End: 06-73-9566vmltpiaahtRfpih Keller Other [place] [employer] Other Start: 98-51-2447Qqoqon outpatient visit 15 minutes Alexandra KellerFPG [facility] ClydeStart: 02-19-2021 End: 20-04-7159rmvgyopspzNowcw Marsy Other [facility] Other Start: 14-87-7018Jswjrk outpatient visit 15 minutes Alexandra GintyFPG [facility] [place] Procedures DateProcedureProcedure DetailPerforming ClinicianStart: 74-13-2827Zplvu metabolic panel calcium totalGeoffrey Senait TALAMANTES Work Phone: Start: 37-24-7614Oaxhpbqzxe exam chest single view Jarocho Marquez MD Work Phone: Start: 96-93-9698QCBEQ-19, Delmi Jose MD Work Phone: Start: 42-08-2877Asnuwrarx Darlin Jose MD Work Phone: Start: 50-51-4056Wzxmzjopvksxq metabolic panelLisa J. Asha SOLE SCRAPER - MENTAL HEALTH ASSISTANT Work Phone: Start: 06-24-9895EST ALTLisa Aichholz MENTAL HEALTH ASSISTANT Work Phone: Start: 59-22-8071VBI ASTLisa Aichholz MENTAL HEALTH ASSISTANT Work Phone: Start: 72-01-3895Eeqko panelLisa J. Aickyaraholjevon SOLE SCRAPER - MENTAL HEALTH ASSISTANT Work Phone: Start: 36-55-1443Nndqokjiyma aspartate amino ast sgot Jenn Alona. Aicadriane SOLE SCRAPER - MENTAL HEALTH ASSISTANT Work Phone: Start: 40-61-7779MYAE GLUCOSE,WHOLE BLOODGeneric External Data ProviderStart: 77-40-6579UmdijryojcvEqruldm Pruitt MD Work Phone: Start: 95-44-1011Bay routine ecg w/least 12 lds w/i&r Virginia Wilver aRmos SOLE SCRAPER - TAR WORKER Work Phone: Start: 11-03-9407Halbkwqkky glycosylated o7yYqvx Nimcoholz MENTAL HEALTH ASSISTANT Work Phone: Start: 80-01-5827Rjharportdsff metabolic panelLisa J. Asha SOLE SCRAPER - MENTAL HEALTH ASSISTANT Work Phone: Start: 65-52-4047Kbonp panelLisa J. Nimcoholjevon SOLE SCRAPER - MENTAL HEALTH ASSISTANT Work Phone: Start: 61-74-9489CMTL CBC WITH DIFFLisa Asha MENTAL HEALTH ASSISTANT Work Phone: Start: 39-23-9918Mhtuf albumin quantitativeLisa Alona. Nimcoholjevon SOLE SCRAPER - MENTAL HEALTH ASSISTANT Work Phone: Start: 54-25-7513Vigmx dip stick/tablet rgnt auto w/o microscopyLisa Alona. Nicmoholjevon SOLE SCRAPER - MENTAL HEALTH ASSISTANT Work Phone: Start: 16-51-0000Asglrqichr glycosylated n5fHpic Kristopherhholz MENTAL HEALTH ASSISTANT Work Phone: Start: 09-57-9080HN CHEST 2VGeneric External Data ProviderStart: 86-24-8006RZEE CULTUREGeneric External Data ProviderStart: 46-21-3817GQJ 12-LEADGeneric External Data ProviderStart: 14-13-7277RX LUMBAR SPINE MIN 4VGeneric External Data ProviderStart: 68-30-8087DA LUMBAR SPINE WO CONSnava Cordoba MD Work Phone: Start: 40-74-0364LA FOREIGN BODY EYESnava Cordoba MD Work Phone: Start: 41-96-6118MG LUMBAR SPINE 2 OR 3VSnava Cordoba MD Work Phone: Plan of Treatment DateCare ActivityDetailAuthorStart: 59-53-7162Lorrogfux for malignant neoplasm of colonBon [facility] HospitalThird Solutions [facility] SystemStart: 60-16-9597Rfrcakmic for malignant neoplasm of colonNOMS HealthcareStart: 97-24-5269WKK test (Diabetes, CKD 3-4, OR last GFR 15-59)GFR test (Diabetes, CKD 3-4, OR last GFR 15-59)[facility] SystemStart: 25-02-8784OZD test (Diabetes, CKD 3-4, OR last GFR 15-59)GFR test (Diabetes, CKD 3-4, OR last GFR 15-59)[facility] SystemStart: 11-15-2025 Lipid panelLipidsBon [facility] HamiltonStart: 53-52-7739BHJ test (Diabetes, CKD 3-4, OR last GFR 15-59)GFR test (Diabetes, CKD 3-4, OR last GFR 15-59)[facility] SystemStart: 05-29-6041Exrrv panelLipidsBon [facility] Start: 98-63-2379Efyiv screening for proteinNOMS HealthcareStart: 04-01-2025 Hemoglobin A1c measurementDiabetes: Hemoglobin Y5NLTRU HealthcareStart: 03-13-2025 End: 75-83-6651Tkkxkok encounter lcmsfizzk81/21/2025 8:15 PM EST Appointment [facility] [address] [place], [place] [id number] Diagnostic [facility] Sleep CenterComment on above:DiagnosticStart: 29-24-4208Iehkkrmn screening Diabetes: Retinopathy ScreeningNOPA HealthcareStart: 18-29-9686Yozuipwfhf A1c measurementDiabetes: Hemoglobin H6NVSSS HealthcareStart: 11-25-2024 End: 45-58-3339Pmqhoyo encounter qbvupsckv85/04/2025 9:00 AM EDT Office Visit [facility] [address] [place] [address] Jenn Barry, MENTAL HEALTH ASSISTANT [address] [place] [address] [facility] FMStart: 35-86-6392VGPGN-19 Vaccine ( season)COVID-19 Vaccine ( season)NOM HealthcareStart: 11-22-2024 Influenza vaccinationNOPA HealthcareStart: 11-10-2024 End: 82-57-3922Zasfphm encounter efutgjqtm21/20/2025 2:00 PM EDT Office Visit [facility] [address] [place] [address] Jenn Barry, MENTAL HEALTH ASSISTANT [address] [place] [address] [facility] FMStart: 11-02-2024 End: 61-90-4967Qtwjwlo aminotransferase [Enzymatic activity/volume] in Serum or PlasmaALT Lab Routine Dyslipidemia Expected: 11/02/2024 (Approximate), Expires: 09/02/2025NOPA HealthcareComment on above:Expected: 11/02/2024 (Approximate), Expires: 09/02/2025Start: 11-02-2024 End: 71-31-6996Okpdjaeia aminotransferase [Enzymatic activity/volume] in Serum or PlasmaAST Lab Routine Dyslipidemia Expected: 11/02/2024 (Approximate), Expires: 09/02/2025NOMS HealthcareComment on above:Expected: 11/02/2024 (Approximate), Expires: 09/02/2025Start: 10-28-2024 End: 37-57-4497Wsknxdjkp to same day surgery hhzvkl5810/28/2024 8:35 AM EDT - 10/28/2024 9:11 AM EDT Surgery [facility] End[facility] [address] [place] [address] Morgan Lovell MD [address] [place] [address] [address] [place] [address] COLONOSCOPYMZ EndoscopyComment on above:COLONOSCOPYStart: 10-28-2024 End: 12-76-9524Hxldu ca scrn not hi rsk indMWHZ ENDOSCOPYStart: 10-28-2024 Subsequent hospital visit by snjyrmziz86/07/2025 8:35 AM EDT Hospital Encounter [facility] [address] [place] [address] Morgan Lovell MD [address] [place] [address] [address] [place] [address] MW EndoscopyStart: 90-63-8257SpdrgfwskBuchanan General HospitalStart: 09-29-2024 End: 23-21-8665Fdouwtz encounter procedureNOMS CWM FMComment on above:Type 2 diabetes mellitus without complication, without long-term current use of insulin (HCC) (Primary Dx); Essential hypertension ; Morbid (severe) obesity due to excess calories ([facility]-HCC); JAN (generalized anxiety disorder) ; Depression with anxiety; Type 2 diabetes mellitus with other specified complication (HCC); Hyperlipidemia, unspecified ; Positive colorectal cancer screening using Cologuard testStart: 09-02-2024 End: 49-22-1118Skysq 1996 panel - Serum or PlasmaLipid panel Lab Routine Dyslipidemia Expected: 09/02/2024 (Approximate), Expires: 09/02/2025[facility] Work Phone: Comment on above:Expected: 09/02/2024 (Approximate), Expires: 09/02/2025Start: 39-93-7597Ehdip screening for proteinDiabetes: Urine Protein ScreeningVA HOSPITAL HealthcareStart: 06-29-2024 End: 15-65-0439BXN W Auto Differential panel - BloodCBC and differential Lab Routine Obstructive sleep apnea syndrome Hyperuricemia Expected: 06/29/2024 (Approximate), Expires: 06/29/2025[facility] Work Phone: Comment on above:Expected: 06/29/2024 (Approximate), Expires: 06/29/2025Start: 06-29-2024 End: 31-35-2445Pzqkyzwsfngcg metabolic 2000 panel - Serum or PlasmaComprehensive metabolic panel Lab Routine Essential hypertension (CMS/HCC) Type 2 diabetes mellituswithout complication, without long-term current use of insulin Dyslipidemia (CMS/HCC) HyperuricemiaExpected: 06/29/2024 (Approximate), Expires: 06/29/2025[facility] HealthcareComment on above:Expected: 06/29/2024 (Approximate), Expires: 06/29/2025Start: 06-29-2024 End: 98-35-7073Jolga 1996 panel - Serum or PlasmaLipid panel Lab Routine Dyslipidemia (CMS/HCC) Expected: 06/29/2024 (Approximate), Expires: 06/29/2025 NOMS HealthcareComment on above:Expected: 06/29/2024 (Approximate), Expires: 06/29/2025Start: 06-29-2024 End: 89-71-1914Gemxzzysyuxv/Creatinine panel in random UrineMicroalbumin / creatinine, urine ratio Lab Routine Essential hypertension (CMS/HCC) Type 2 diabetesmellitus without complication, without long-term current use of insulin Expected: 06/29/2024 (Approximate), Expires: 06/29/2025[facility] HealthcareComment on above:Expected: 06/29/2024 (Approximate), Expires: 06/29/2025Start: 06-29-2024 End: 17-36-9978Hevgjxyn specific Ag [Mass/volume] in Serum or PlasmaPSA Lab Routine Screening for prostate cancer Expected: 06/29/2024 (Approximate), Expires: 06/29/2025NOPA HealthcareComment on above:Expected: 06/29/2024 (Approximate), Expires: 06/29/2025Start: 06-29-2024 End: 06-96-1201Lcqnm [Mass/volume] in Serum or PlasmaUric acid Lab Routine Hyperuricemia Expected: 06/29/2024 (Approximate), Expires: 06/29/2025NOPA HealthcareComment on above:Expected: 06/29/2024 (Approximate), Expires: 06/29/2025Start: 06-29-2024 End: 70-87-3440Vghtyhmvjo complete panel - UrineUrinalysis with reflex microscopic (clean catch) Lab Routine Essential hypertension ([facility]) Type 2 diabetes mellitus without complication, without long-term current use of insulin Expected: 06/29/2024 (Approximate), Expires: 06/29/2025[facility] HealthcareComment on above:Expected: 06/29/2024 (Approximate), Expires: 06/29/2025Start: 06-29-2024 End: 83-57-4712Ubylyqw encounter vcgprfzak88/08/2025 9:30 AM EDT [facility] [address] [place] [address] Anna White, ANDREW [address] [place] [address] [facility] FMStart: 45-83-9960Cxcrfsljsq A1c measurement Diabetes: Hemoglobin Z7LVAPSHannibal Regional HospitalStart: 12-30-2023 End: 76-35-0466Knwsshwrga A1c/Hemoglobin.total in BloodHemoglobin A1c Lab Routine Type 2 diabetes mellitus without complication, without long-term current use of insulin ([facility]/HCC) Expected: 12/30/2023 (Approximate), Expires: 12/29/2024 [facility] Work Phone: Comment on above:Expected: 12/30/2023 (Approximate), Expires: 12/29/2024Start: 12-30-2023 End: 48-02-5422Keafnne encounter zecrknzyt97/08/2024 9:00 AM EDT Office Visit [facility] [address] [place] [address] Eliceo Whitey, MENTAL HEALTH ASSISTANT [address] [place] [address] ArrivedNO [facility] FMComment on above:ArrivedStart: 11-23-2023 COVID-19 Vaccine ( season)COVID-19 Vaccine ( season)[facility]art: 51-72-4939LWOPS-19 Vaccine ( season)COVID- 19 Vaccine ( season)[facility]: 11-23-2023 Influenza vaccinationInfluenza Vaccine (#1)[facility] HospitalStart: 10-23-2023 Influenza vaccinationFlu vaccine (#1)[facility]art: 10-06-2023 End: 32-75-2362Uyitblettiy &/transposition ulnar nerve elbowARM NERVE TRANSPOSITION Cubital tunnel syndrome, right 10/06/2023 11:31 AM [facility]: 51-31-7388Eefeggou vaccine (1 of 2)Shingles vaccine (1 of 2)[facility]: 35-13-3913Sdljdbuem for malignant neoplasm of colonSentara CarePlex Hospital: 87-46-1574FMoR/Tdap/Td vaccine (1 - Tdap) DTaP/Tdap/Td vaccine (1 - Tdap)[facility]: 02-18-1994 Hepatitis B vaccine (1 of 3 - 19+ 3-dose series)Hepatitis B vaccine (1 of 3 - 19+ 3-dose series)[facility]: 54-07-8363Qyzjkbthq B Vaccines (1 of 3 - 19+ 3-dose series)Hepatitis B Vaccines (1 of 3 - 19+ 3-dose series) [facility] HospitalStart: 60-05-4881Dcgefuxlzbtm 50+ years Vaccine (1 of 2 - PCV) Pneumococcal 50+ years Vaccine (1 of 2 - PCV)[facility]: 02-30-6069Ldpedlpf screeningDiabetic retinal examVCU Health Community Memorial Hospitalart: 36-55-4821Nafeyjjfj C screeningHepatitis C screenSentara CarePlex Hospital: 44-02-7627RIX screeningHIV screenSentara CarePlex Hospital: 1985 Depression MonitoringDepression MonitoringSentara CarePlex Hospital: 56-14-4461Kuyjnjat foot examinationDiabetic foot examLewisgale Hospital Pulaski Start: 43-06-6840Tvplvducwa A1c htxmhyiiyynD1P test (Diabetic or Prediabetic)[facility]: 71-23-6367QHmC/Tdap/Td Vaccines (1 - Tdap) DTaP/Tdap/Td Vaccines (1 - Tdap)[facility] HospitalStart: 52-65-3184TOQ Vaccines (1 of 1 - Standard series)MMR Vaccines (1 of 1 - Standard series)[facility] Start: 79-92-5379ELUEF-19 Vaccine (#1)COVID-19 Vaccine (#1)[facility]: 24-85-1056Nczhfkald for malignant neoplasm of colonNOMS Healthcare Bacteria identified in Urine by CultureBerger Hospital Comprehensive metabolic 2000 panel - Serum or PlasmaBerger HospitalOxygen therapy [Minimum Data Set]Initiate Oxygen Therapy Protocol Respiratory Care Routine As Needed until discontinued starting 10/06/2023[facility] on above:As Needed until discontinued starting 10/06/2023athology studySurgical Pathology Lab Routine Positive colorectal cancer screening using Cologuard test Release Upon Ordering for 1 Occurrences starting 10/28/2024[facility] on above:Release Upon Ordering for 1 Occurrences starting 10/28/2024 End: 06-30-6723GSIYITPF PATHOLOGY REPORTSURGICAL PATHOLOGY REPORT Lab Routine Once for 1 Occurrences starting 10/28/2024 until 10/28/2024[facility] on above:Once for 1 Occurrences starting 10/28/2024 until 10/28/2024[facility] Immunizations Immunization DateImmunizationNotesCare LldeozjwIxrfnbrw82-79-4645Rghheh Purple Cap SARS-CoV-2 VaccinationJenn Barry NP Work Phone: [facility] HospitalXkmcbpkqmq75-65-2890jgnuhzqce, injectable, quadrivalent, preservative freeBrittany White MENTAL HEALTH ASSISTANT Work Phone: [phone] [place], [place] [address]Plvznemvuk71-32-1865mvuqrkwvw virus vaccine, unspecified formulationBrittany White MENTAL HEALTH ASSISTANT Work Phone: [phone]-[address] [place], [place] [address]Eqxapmuvvf94-89-2590Upptgkp SARS-CoV-2 VaccinationLisa Aichholz MENTAL HEALTH ASSISTANT Work Phone: [phone] [place], [place] [address]Dwridhbjye44-51-3019Twdcdko SARS-CoV-2 VaccinationLisa Aichholz MENTAL HEALTH ASSISTANT Work Phone: [phone]-[address] [place], [place] [address]Elbpivrifj44-95-5222nnwwmpelo, injectable, quadrivalent, contains preservativeBrittany White MENTAL HEALTH ASSISTANT Work Phone: [phone] [place], [place] [address]Gsyswsgsjc82-92-8640Tljvrqncz, injectable, Madin Bonita Canine Kidney, preservative free, quadrivalentBrittany White MENTAL HEALTH ASSISTANT Work Phone: [phone] [place], [place] [address]Qxuqvmimem70-10-1190klfkatvat, seasonal, injectableBrittany White MENTAL HEALTH ASSISTANT Work Phone: [phone] [place], [place] [address]Ekndaubegi21-11-5895bnqzlfnjb, seasonal, injectable, preservative freeBrittany White MENTAL HEALTH ASSISTANT Work Phone: [phone] [place], [place] [address]Hhgyrylaot65-54-4639boiznmrdx, seasonal, injectable, preservative freeBrittany White MENTAL HEALTH ASSISTANT Work Phone: [phone] [place], [place] [address]Alrbjikuge04-41-3378lbqejqjef, seasonal, injectableBrittany White MENTAL HEALTH ASSISTANT Work Phone: [phone] [place], [place] [address]Xzlapetfpo85-63-5679wmpnalnzg, seasonal, injectableBrittany White MENTAL HEALTH ASSISTANT Work Phone: [phone] [place] [address] Payers DatePayer CategoryPayerPolicy [id number] Health Insurance [id number] 2.16.840.1.430407.3.57[id number] 2.16.840.1.480579.3.57[id number] 2.16.840.1.094635.3.57[id number] 2.16.840.1.789232.3.57[id number] 2.16.840.1.320982.3.57[id number] 2.840.1.078399.3.57[id number] 2.840.1.138972.3.57[id number] 2.16.840.1.317992.3.57[id number] 2.16.840.1.940448.3.57[id number] 2..840.1.613645.3.57[id number] 2.16.840.1.447660.3.57[id number] 2.16.840.1.719774.3.57[id number] 2.16.840.1.318229.3.57[id number] 2.16840.1.318376.3.57[id number] 2.16.840.1.286102.3.57[id number] 2..840.1.177067.3.57[id number] 2.16.840.1.565518.3.57[id number] 2..840.1.978881.3.57[id number] 2.16.840.1.442411.3.57[id number] 2..840.1.615133.3.57[id number] 2.16.840.1.148023.3.57[id number] 2..840.1.436343.19 Self-paySelf Iuw1r5s266y-[id number]-[id number] Social History DateTypeDetailFacilityUnknown if ever smokedNokindred hospital [employer] Other Start: 12-23-2023 End: 20-11-8166Iid Assigned At [facility] HospitalStart: 81-02-3356Pom Assigned At [facility] Hospitaltart: 06-05-2023 End: 72-19-1705Qfgbwvr smoking status NHISNever smoked tobaccoHannibal Regional Hospital Start: 06-05-2023 End: 54-16-4288Irvrldp use and exposureSmokeless tobacco non-userBON PAGE HOSPITALCreditPing.com [facility]OS[facility]ITALStart: 10-01-2023 End: 37-06-2903Caihdurqz beverage intakeLifetime non-drinker (finding)[facility]ENTERStart: 12-23-2023 End: 17-56-1856Tvgrezj of Social functionNOPA HealthcareStart: 58-44-5107Quh often do you need to have someone help you when you read instructions, pamphlets, or other written material from your doctor or pharmacy [SILS]Never [facility] HealthcareDo you belong to any clubs or organizations such as jew groups, unions, fraternal or athletic groups, or [...] to pay the mortgage or rent on time?YesNOCenterPointe HospitalStart: 57-23-7037Skr assigned at birthNot on file [facility] HOSPITALPortal ProfesUNIVERSITY HOSPITALS ST. JOHN MEDICAL CENTERStart: 38-99-3149GinCxky (finding)[facility] HospitalStockezySmyth County Community HospitalNEGATED: Highlighted rowStart: NINFHistory of tobacco usePassive smokerBON SECOURS [facility] Medical Equipment Procedure CodeEquipment CodeEquipment Original TextEquipment IdentifierDatesUSE 1 STRIP TO CHECK GLUCOSE ONCE DAILYStart: 09-26-2024 Goals DatePatient GoalDesired Activity/StatePersonal health goal Functional Status YonbAabjojkggtAbihcrLzkwthab17-56-5558Xfcuh score [AUDIT-C]1 12/23/2023 9:10 AM EDT Shelby SaleemNOPA Wcoczadmof33-62-3173Hgz often do you have a drink containing alcohol?Monthly or less 12/23/2023 9:10 AM EDT Mychart, Generic Monthly or lessNOMS Zkhzictjms72-22-6089Lwi many standard drinks containing alcohol do you have on a typical day?1 or 2 12/23/2023 9:10 AM EDT Mychart, Generic 1 or 2NOMS Qjchixavgc97-72-6039Hjz often do you have 6 or more drinks on 1 occasion?Never 12/23/2023 9:10 AM EDT Mychart, Generic NeverHannibal Regional Hospital 22-13-9307Tlfwecb Health Questionnaire 2 item (PHQ-2) [Reported][facility] 31-65-2751Bufkail Health Questionnaire 2 item (PHQ-2) [Reported][facility] Clinical Notes 02-19-2021 to 01-30-2025 Note Date & JwzcFyouCpaodfrf79-05-0516 Hospital Discharge instructions* Discharge Instructions* Sammy Sapp PA-C - 01/30/2025 5:22 PM EST Continue inhaler as prescribed follow-up with primary care. Return to have any symptoms worsen or new symptoms develop. * Attachments The following attachments cannot be sent through Care Everywhere. * Cough (Wallisian) * Sinusitis: Acute (Wallisian) * Metered Dose Inhalers Without a Spacer (Wallisian) documented in this [facility]11-04-2025 Hospital Discharge instructions* Discharge Instructions* Yves Jose [...] through Care Everywhere. * Nebulizers: General Info (Wallisian) documented in this encounterBon [facility] Hospital Discharge instructionsAmbulatory Orders* AMB POC Hgb A1C Time Frame: 01/19/25, Location: Determined By Patient [facility] Work Phone: [phone] 788-606508-07-2025 History of Present illness Narrative* Sr Leena Garcia - 10/28/2024 10:22 AM EDT Spiritual Services Interventions [facility] ENDO Pool/NONE 10/28/2024 Sr Leena Brenner 49 y.o. year old male Encounter Summary Encounter Overview/Reason: Initial Encounter Service Provided For: Patient Referral/Consult From: [employer] System: Unknown Last Encounter : 10/28/24 Complexity of Encounter: Low Begin Time: 904 End Time : 909 Total Time Calculated: 5 min Spiritual/Emotional needs Type: Spiritual Support Assessment/Intervention/Outcome Assessment: Calm Intervention: Prayer (assurance of)/[place] Outcome: Expressed Gratitude * Lauren Le RN - 10/19/2024 11:08 AM EDT [facility] Preadmission Testing Name: Hair Brenner : [...] [x] Ride Home [x] No Jewelry/Contact Lenses/Nail Iraqi [x] Prep/Lax/Clear Liquids [] Chlorhexidene DOS Patient Needs [] HCG [x] Blood Sugar [] PT/INR [] T&S Do you have any metal allergies? [] Yes [x] No If yes, to what metals: Patient instructed on the pre-operative, intra-operative, and post-operative process? Yes Medication instructions reviewed with patient? Yes documented in this encounterBon [facility] Hospital Discharge instructions* Discharge Instructions* Morgan Lovell [...] one drug, even if it is an rqtj-ytu-nqifczb medication, herb, or dietary supplement, be sure [...] call 911 immediately. documented in this encounterBon [facility]07-[facility]-20[facility] History of Present illness Narrative* Jenn Barry NP - 09/29/2024 8:40 AM EDT Images from the original note were not included. Hair Brenner is a 49 y.o. male presents with chief complaint of Diabetes HPI: Heel pain: right, few months, everyday, constant, no pain with sitting, sit to stand worse, fades away w walking, hx of heel spur (finish production manager told in the past) would like refer [...] no compliance problems. There isno history of CAD/UT, heart failure or PVD. Diabetes He presents [...] mg, Oral, Nightly Blood Glucose Monitoring Suppl ([employer] Verio Flex System) w/Device kit USE DIRECTED busPIRone (BUSPAR) 15 mg, Oral, Every 8 hours PRN carvedilol (COREG) 25 mg, Oral, 2 times daily with meals HYDROcodone-acetaminophen ([place]) 5-325 MG tablet 1 tablet, Oral, Every [...] complication, without long-term current use of insulin ([facility]) - Primary Check blood sugars daily, notify [...] (severe) obesity due to excess calories ([facility]) Discussed with patient their BMI (actual, verses [...] Pt would like a referral to a finish production manager near or in [place]. Pt checked BP this morning 122/80 pt [...] (severe) obesity due to excess calories ([facility]) Discussed with patient their BMI (actual, verses [...] without complication, without long-term current useof insulin ([facility]) Check blood sugars daily, notify if <70 [...] staying hydratedin the hot weather * Jenn aBrry NP - 09/29/2024 6:05 AM EDTAssociated Problem(s): [...] could not tolerate this documented in this encounterHannibal Regional HospitalIbfftevelq08-63-8995 Instructions* Patient Instructions* Jenn Barry NP - 09/29/2024 8:40 AM EDT ,cut amlodipine pill in half so you will take 5mg daily and check blood pressures at home for the next 7 days twice a day, and stop by office for a blood pressure check in 1 week, and bring readings along with you documented in this encounterMichael Ville [address]Wocxlkknal33-69-6366 History of Present illness Narrative* MAYNOR VALERIO [...] chief complaint of Diabetes HPI: MAYNOR VALERIO Assistant Director Of Public Works 9:22 AM Pt does not wear sensor- [...] being taken. He does not see a finish production manager.Eye exam is current. Hypertension This is a [...] Oral, 2 times daily with meals HYDROcodone-acetaminophen ([place]) 5-325 MG tablet 1 tablet, Oral, Every [...] Problem List Items Addressed This Visit Dyslipidemia ([facility]) On statin therapy Check labs yearly and as needed Relevant Medications pravastatin (Pravachol) 40 MG tablet Other Relevant Orders Comprehensive metabolic panel Lipid panel Essential hypertension ([facility]) Please check blood pressure daily and record [...] could not tolerate this documented in this encounterHannibal Regional HospitalIiabpuricj56-92-0916 Instructions* Patient Instructions* Jenn Barry NP - 06/29/2024 9:20 AM EDT Fasting labs: 8 hours Increase buspirone to 15mg every 8 hours as needed for anxiety documented in this [facility]10-29-2024 Telephone encounter Note* Telephone Encounter - Akosua Ramos MA - 01/20/2024 2:37 PM EDT The prior auth for the dexcom was denied because he is not currently using insulin. [facility] Regional HospitalQbyzaxivzg69-80-0849 Miscellaneous Notes* Telephone Encounter - Akosua Ramos MA - 01/20/2024 2:37 PM EDT The prior auth for the dexcom was denied because he is not currently using insulin. documented in this [facility]10-08-2024 History of Present illness Narrative* Anna [...] GLOBULIN RATIO 1.1 Resulting Agency [facility] DMII: Currently taking Glipizide 5mg BID [...] Problem List Items Addressed This Visit Dyslipidemia ([facility]) Currently taking Pravastatin 40mg Denies any myalgias. Most recent Lipid Panel done 5 months ago- WNL Continue current regimen. Essential hypertension ([facility]) Currently taking losartan-hydrochlorothiazide 100-25 Amlodipine 10mg Carvedilol 25mg Does not check BP at home; Denies orthostatic changes, dizziness, cough, shortness of breath, swelling in extremities. Continue current regimen. Given BP log, advised pt to record BP and bring log back with them to next visit. Type 2 diabetes mellitus without complication, without long-term current use of insulin ([facility]) -Primary Currently taking Glipizide 5mg BID Ozempic [...] or do not improve. documented in this [facility]10-08-2024 Instructions* Patient Instructions* Anna White NP - 12/30/2023 9:00 AM EDT Referral sent to GI for colonoscopy- they will call you. If you don't hear from them in 2 weeks, call my office! Have A1C completed. Try taking miralax to help ease constipation. Call if stomach cramping doesn't subside. documented in this [facility]07-15-2024 History of Present illness Narrative* Gris [...] 17 1/2 year old dgtr Ying as stock driver to take pt home. Pt states she is his only ride home and feels very comfortable with his dgtr taking him home. He states this isthe only way he can have the procedure done as there is no other person he can call to take him home-they have no other family in the area. Discussed with systems manager Mya CHRISTIANSON, RN who also discussed with Risk Management-Susana Carrasco who states that as long as pt is comfortable with his dgtr taking him home and there is no one else, the procedure can continue as scheduled. * Lauren Le RN - 09/30/2023 1:08 PM EDT [facility] Preadmission Testing Name: Hair Brenner : [...] [x] Ride Home [x] No Jewelry/Contact Lenses/Nail Iraqi [] Prep/Lax/Clear Liquids [] Chlorhexidene DOS Patient Needs [] HCG [x] Blood Sugar [] PT/INR [] T&S Do you have any metal allergies? [] Yes [x] No If yes, to what metals: Patient instructed on the pre-operative, intra-operative, and post-operative process? Yes Medication instructions reviewed with patient? Yes documented in this encounterBON [facility]07-14-2024 Hospital Discharge instructions* Discharge Instructions* [...] days after surgery/discharge. documented in this encounterBON [facility]KEHE[facility]07-03-2024 NoteMRSA CULTURE APPROPRIATE ISOLATION PROCEDURES.[facility] HospitalPajqjpysny14-35-4321 Evaluation note* Encounter Date Diagnosis Assessment Notes [...] no improvement in 2 to 3 days. [employer] Other 07-20-2022 Evaluation note* Encounter Date Diagnosis [...] to the ER forworsening symptoms or concern [employer] Other 2022 Evaluation note* Encounter Date Diagnosis [...] time Apr,therParonychia home care material was printed [employer] Other 11-29-2021 Evaluation note* Encounter Date Diagnosis [...] care instructions given in writting by [facility] Care At Home document [employer] Other Evaluation noteNo assessment information available [facility] Work Phone: Evaluation note* Diagnosis Type 2 diabetes mellitus without complication, without long-term current use of insulin (CMS/HCC)- Primary Dyslipidemia (CMS/HCC) Other and unspecified hyperlipidemia Essential hypertension (CMS/HCC) Unspecified essential hypertension Positive colorectal cancer screening using Cologuard test Screening for colon cancer Special screening for malignant neoplasms, colon Constipation, unspecified constipation type [facility] Diagnosis Encounter for screening [...] insulin (CMS/HCC)- Primary documented in this encounter [facility] HealthcareEvaluation [facility]* Diagnosis Encounter for screening [...] of insulin (CMS/HCC) [facility]* Diagnosis Encounter for screening [...] exam Routine [facility] Acute bilateral low back [...] Unspecified essential hypertension [facility]* Diagnosis Encounter for screening [...] Generalized anxiety disorder documented [facility]* Diagnosis Post-op pain- Primary Other acute postoperative pain documented [facility] encounter [facility]* Diagnosis Encounter for screening [...] Unspecified essential hypertension documented in this encounter [facility] HealthcareEvaluation note* Diagnosis Encounter for screening [...] with right-sided sciatica documented in this encounter [facility] HealthcareEvaluation [facility]* Diagnosis Encounter for screening [...] (severe) obesity due to excess calories ([facility]) Body mass index (BMI) 40.0-44.9, adult ([facility]) Essential hypertension Unspecified essential hypertension Type 2 diabetes mellitus without complication, without long-term current use of insulin ([facility]) Depression with anxiety Dysthymic disorder Dyslipidemia Other [...] Other abnormal blood chemistry Morbid obesity ([facility]) Morbid obesity Acute bilateral low back pain [...] (severe) obesity due to excess calories ([facility]) Body mass index (BMI) 40.0-44.9, adult ([facility]) Essential hypertension Unspecified essential hypertension Type 2 diabetes mellitus without complication, without long-term current use of insulin ([facility]) Depression with anxiety Dysthymic disorder Dyslipidemia Other [...] Other abnormal blood chemistry Morbid obesity ([facility]) Morbid obesity Acute bilateral low back pain [...] (severe) obesity due to excess calories ([facility]) Body mass index (BMI) 40.0-44.9, adult ([facility]) Essential hypertension Unspecified essential hypertension Type 2 diabetes mellitus without complication, without long-term current use of insulin ([facility]) Depression with anxiety Dysthymic disorder Dyslipidemia Other [...] (severe) obesity due to excess calories ([facility]) JAN (generalized anxiety disorder) Generalized anxiety disorder Depression with anxiety Dysthymic disorder Type 2 diabetes mellitus with other specified complication (HCC) Hyperlipidemia, unspecified Positive colorectal cancer screening using Cologuard test Hyperuricemia Other abnormal blood chemistry Acute bilateral low back pain with right-sided sciatica Pain of right heel documented in this encounter [facility]* Diagnosis Positive colorectal cancer screening using Cologuard test- Primary Pre-op testing Preoperative examination, unspecified Positive colorectal cancer screening using Cologuard test documented [facility] this encounter [facility] Diagnosis Positive colorectal cancer screening using Cologuard test- Primary Rectal bleeding Hemorrhage of rectum and anus documented in this encounter [facility]Evalubay[facility]* Diagnosis Onset Date Resolution Status Admit Date Brain fog acuteOctober 2024 2:17pmDepression with anxietyacuteOctober 2024 2:17pmEssential hypertensionacuteOctober 2024 2:17pmHyperlipidemiaacute October th, 2025 2:17pmMorbid obesity due to excess caloriesacuteOctober 2024 2:17pmOSA (obstructive sleep apnea)acuteOctober 2024 2:17pmPositive colorectal cancer screening using Cologuard testacuteOctober 2024 2:17pm Type 2 diabetes mellitus without complication, without long-term current usacute January 19, 2025 2:17pm [facility] Work Phone: Evaluation note* Diagnosis Bronchitis- Primary Bronchitis, not specified as acute or chronic Acute cough documented in this encounter [facility]Eval[facility]* Diagnosis Acute maxillary sinusitis, recurrence not specified- Primary Acute cough Wheezing documented in this encounter [facility] general Narrative - Reported* Type Description Date Medical History HTN Medical HistoryPre diabeticMedical HistoryAnger issuesMedical History Hyperlipidemia [employer] Other Reason for referral (narrative)* Consultation (Routine) - Pending ReviewSpecialtyDiagnoses / ProceduresReferred By Contact Referred To ContactGastroenterology Diagnoses Positive colorectal cancer screening using Cologuard test Screening for colon cancer Procedures AL OFFICE/OUTPATIENT NEW HIGH MDM 60 MINUTES Anna White NP [address] [place] [phone] Pati Corona MD [address] [place] [address] Referral IDStatusReasonStart DateExpiration DateVisits RequestedVisits [id number] Review Specialty Services Required / FELIPA Bolden for referral (narrative)No reason for referral information availableBerger Hospital Work Phone: Reason for visit Narrative* Outpatient Service (Routine) - Not Required - RTASpecialtyDiagnoses / ProceduresReferred By ContactReferred To ContactCardiology Diagnoses Pre-op testing Procedures EKG 12 Lead Virginia Ramos, SOLE SCRAPER - TAR WORKER [address] [place] [address] Phone: tel: fax: Referral IDSumaDiorsantosCanton DateExpiration DateVisits RequestedVisits [id number] Required - RTA/ [facility] for visit Narrative* Auth/CertSpecialtyDiagnoses / ProceduresReferred By ContactReferred To Contact Diagnoses Positive colorectal cancer screening using Cologuard test Procedures AL COLON CA SCRN NOT HI RSK IND AL COLORECTAL SCRN; HI RISK IND AL ESOPHAGOGASTRODUODENOSCOPY TRANSORAL DIAGNOSTIC AL EGD TRANSORAL BIOPSY SINGLE/MULTIPLE AL EGD BALLOON DILATION ESOPHAGUS <30 MM DIAM COLORECTAL CANCER SCREENING, NOT HIGH RISK Morgan Lovell MD [address] [place] [address] Phone: tel: fax: [facility] [address] [place] [address] Referral IDSohio state health systemusCJW [facility] DateExpiration DateVisits RequestedVisits [id number] [facility] Chief Complaint and Reason for Visit Chief [...] (unrecogniz ed section and content) ReasonCommentsFollow-upReasonOnset DateCommentsMed Jjnjiw204ReasonOnset DateCommentsMed Xiuxhy4903/25/2024ReasonOnset DateCommentsMed Pyprre9003/23/2024 SpecialtyDiagnoses / ProceduresReferred By ContactReferred To Contact Diagnoses Cubital tunnel syndrome, right Cubital tunnel syndrome, right [G56.21] Procedures AL NEUROPLASTY &/TRANSPOSITION ULNAR NERVE ELBOW RIGHT CUBITAL TUNNEL RELEASE Carlito Leung, DO [address] [place] [address] [facility] [address] [place] [address] Referral IDStatusReasonStart DateExpiration DateVisits RequestedVisits [id number] DateCommentsMed Phlins7405/06/2024ReasonComments DiabetesReasonCommentsDiabetesReasonCommentsIllnessProductive green cough, congestion since Friday. Fever [...] Date Richard Harris MD [address] [place] [id number] PCP - GeneralFamily Medicine11/04/23 Anna White NP [address] [place] [address] Nurse PractitionerMedical [facility] Of [facility] Medicine11/04/23Team MemberRelationshipSpecialtyStart DateEnd Date Richard Harris MD [address] [place] [address] PCP - [facility]Cand[facility]11/04/23 Anna White NP [address] [place] [address] Nurse PractitionerCandler County Hospital11/04/23Team MemberRelationshipSpecialtyStart DateEnd Date Richard Harris MD [address] [place] [address] PCP - [facility]11/04/23 Anna White NP [address] [place] [address] Nurse PractitionerCandler County Hospital11/04/23Team MemberRelationshipSpecialtyStart DateEnd Date Anna White NP [address] [place] [address] Nurse PractitionerMedical [facility] Medicine11/04/23Team MemberRelationshipSpecialtyStart DateEnd Date Anna White NP [address] [place] [address] Nurse PractitionerMedical [facility] Medicine11/04/23Team MemberRelationshipSpecialtyStart DateEnd Date Anna White ANDREW [address] [place] [address] Nurse PractitionerCandler County Hospital11/04/23Team MemberRelationshipSpecialtyStart DateEnd Date Anna White NP [address] [place] [address] Nurse PractitionerCandler County Hospital11/04/23Team MemberRelationshipSpecialtyStart DateEnd Date Shaikh Cordoba MD [address] [place] [address] PCP - General10/06/23Team MemberRelationshipSpecialtyStart DateEnd Date Richard Harris MD [address] [place] [address] PCP - [facility]04/26/24 Anna White, ANDREW [address] [place] [address] [facility]11/04/23Team MemberRelationshipSpecialtyStart DateEnd Date Richard Harris MD [address] [place] [address] PCP - [facility]04/26/24 Anna White NP [facility]11/04/23Team MemberRelationshipSpecialtyStart DateEnd Date Richard Harris MD [address] [place] [address] [facility]/26/24 Anna White NP [facility]11/04/23Team MemberRelationshipSpecialtyStart DateEnd Date Richard Harris MD [address] [place] [address] [facility] - [facility]04/26/24 Anna White NP [facility]11/04/23Team MemberRelationshipSpecialtyStart DateEnd Date Jenn Barry, SOLE SCRAPER - MENTAL HEALTH ASSISTANT [address] [place] [address] [facility] - [facility]09/01/24Team MemberRelationshipSpecialtyStart Date End Date Richard Harris MD [address] [place] [address] [facility] - [facility]04/26/24 Anna White NP [facility]11/04/23Team MemberRelationshipSpecialtyStart DateEnd Date Richard Harris MD [address] [place] [address] [facility] - [facility]04/26/24 Anna White NP Nurse [facility]11/04/23Team MemberRelationshipSpecialtyStart DateEnd Date Richard Harris MD [address] [place] [address] PCP - [facility]04/26/24 Anna White NP Nurse [facility]11/04/23Team MemberRelationshipSpecialtyStart DateEnd Date Richard Harris MD [address] [place] [address] PCP - [facility]04/26/24 Anna White NP Nurse [facility]11/04/23Te MemberRelationshipSpecialtyStart DateEnd Date Jenn Barry, SOLE SCRAPER - MENTAL HEALTH ASSISTANT [address] [place] [address] PCP - GeneralNurse Practitioner09/01/24Team MemberRelationshipSpecialtyStart Date End Date Jenn Barry, SOLE SCRAPER - MENTAL HEALTH ASSISTANT [address] [place] [address] PCP - GeneralNurse Practitioner09/01/24Team MemberRelationshipSpecialtyStart Date End Date Richard Harris MD [address] [place] [address] PCP - [facility]04/26/24 Anna White NP Nurse PractitionerFamily Medicine11/04/23Team MemberRelationshipSpecialtyStart DateEnd Date Richard Harris MD [address] [place] [address] PCP - GeneralFamily Medicine04/26/24 Anna White NP [facility]11/04/23Team MemberRelationshipSpecialtyStart DateEnd Date Jenn Barry APRN - MENTAL HEALTH ASSISTANT [address] [place] [address] PCP - GeneralNurse Practitioner09/01/24Team MemberRelationshipSpecialtyStart Date End Date Shaikh Cordoba MD PCP - GeneralInternal Medicine Richard Harris MD PCP - GeneralFamily Medicine11/03/2409 Unallocated, Felipa Juarez MD [address] [place] [address] PCP - GeneralFamily Dgfhecxg41/15/ Richard Harris MD PCP - GeneralFamily Medicine04/26/24 Anna White MENTAL HEALTH ASSISTANT Nurse Practitionermily Medicine11/04/23Team MemberRelationshipSpecialtyStart DateEnd Date Shaikh Cordoba MD [facility] - [facility] Richard [facility] - [facility]11/03/2409 UnallocatedFelipa MD [address] [facility] [facility] [place] [address] PCP - [facility] Vtvgrjbc01/15/ Richard Harris MD PCP - [facility]04/26/24 Anna White NP [facility]11/04/23 Team Status: Active Member Role/Relationship Status Dates Jenn Barry NP-C Primary Care Provider Active Team Status: Inactive Member Role/Relationship Status Dates Jenn Barry NP-C Primary Care Provider Active Start: January 19, 2025 End: January 19, 2025Jenn Barry NP-CAttending ProviderActiveStart: January 19, 2025 End: January 19, 2025Team MemberRelationshipSpecialtyStart DateEnd Date Jenn Barry APRN - MENTAL HEALTH ASSISTANT [address] [place] [address] [facility] - [facility]09/01/24Team MemberRelationshipSpecialtyStart Date End Date Jenn Barry APRN - MENTAL HEALTH ASSISTANT [address] [place] [address] PCP - GeneralNurse Practitioner09/01/24Team MemberRelationshipSpecialtyStart Date End Date Jenn Barry, SOLE SCRAPER - MENTAL HEALTH ASSISTANT [address] [place] [address] PCP - GeneralNurse Practitioner09/01/24 Goals (unrecognized section and content) Goals may be documented in a n alternate section (unrecognized sect ion and content) No Status Records FoundNo Status Records FoundNo Status Records FoundNo Status Records FoundNo Status Records FoundNo Status Records FoundNo Status Records Found INFORMATION SOURCE (unrecogn ized section and content) DATE CREATED AUTHOR 10/18/2021 [facility] DATE CREATED AUTHOR AUTHOR'S ORGANIZ ATION 08/01/2022 [facility] DATE CREATED AUTHOR AUTHOR'S ORGANIZ ATION 08/24/2023 [facility] DATE CREATED AUTHOR AUTHOR'S ORGANIZ ATION 04/06/2024 [facility] DATE CREATED AUTHOR AUTHOR'S ORGANIZ ATION 10/03/2024 [facility] DATE CREATED AUTHOR AUTHOR'S ORGANIZ ATION 11/01/2024 [facility] DATE CREATED AUTHOR AUTHOR'S ORGANIZ ATION 01/31/2025 [facility] Ordered Prescriptions (unrec ognized section and [...] 100 mL IVPB (COMPLETED) 3,000 mg, IntraVENous, SALESPERSON TOY TRAINS AND ACCESSORIES TO O.R., 1 dose, On Fri10/06/23 at [...] Pre-op (dayof surgery) BUPivacaine-EPINEPHrine PF (MARCAINE-w/EPINEPHrine) 0.5% -1:158324 injection (CANCELED) PRN, Starting on Fri10/06/23 at [...] (NoRateChange - Provider: Sammy Parry APRN - [address]) * 0941 (Anesthesia Volume Adjustment - Provider: [...] BE BASED ON THE PRIMARY CLINICAL RECORDS. [facility]. provides no warranty or guarantee of the accuracy or completeness of information in this document.
--- OUTSIDE RECORDS SUMMARY | 2025-03-21 06:56 | XMS_ITS | Patient Health Record ---
Author Organization [facility] Address [address] [place] [address] Care Team Providers Care Food Truck Caterer Name Role Phone SHAIKH HERRMANN Primary Care Provider Carlito Kendall Unavailable [phone] Allergies No Known Allergies Reason For Referral No Information Medications Medication SIG (Take, Route, Frequency, Duration) Notes Start Date End Date Status pravastatin ActiveallopurinolActivetiZANidineActivesertralineActiveaspirinActivelosartan ActivecarvedilolActiveamLODIPineActivehydroCHLOROthiazideActivebusPIRoneActive Social History Tobacco Use: Social History Observation Description Date Details (start date - stop date) Never Smoker NA - NA AUDIT-C (Standard) Question Answer Notes Did you have a drink containing alcohol in the p ast year? No Ltyhyz1RvnqjsbvalgdeeHyoomfewXzhnjbd Control (Standard) Question Answer Notes Tobacco use: Nonsmoker Problems Problem Type SNOMED Code ICD Code Onset Dates Problem Status W/U Status Risk Notes Problem Encounter for other orthopedic aftercare (Z47.89)ActiveconfirmedProblem Degenerative disc disease (98696123)DDD (degenerative disc disease), lumbar (M51.36)ActiveconfirmedProblemLesion of ulnar nerve (840573908)Cubital tunnel syndrome, left (G56.22)ActiveconfirmedProblemLumbar radiculopathy (665564947) Radiculopathy, lumbar region (M54.16)ActiveconfirmedProblemDisplacement of lumbar intervertebral disc without myelopathy (62525498)Other intervertebral disc displacement, lumbosacral region (M51.27)ActiveconfirmedProblemSpinal stenosis of lumbar region (01819907)Spinal stenosis, lumbosacral region (M48.07) ActiveconfirmedProblemNumbness (87513386)Numbness (R20.0)ActiveconfirmedProblem Surgical follow-up (776298377)Aftercare following surgery of the nervous system (Z48.811)ActiveconfirmedProblemPostprocedural states (376026957)S/P cubital tunnel release (Z98.890)ActiveconfirmedProblemLesion of ulnar nerve (044000814) Cubital tunnel syndrome on right (G56.21)Activeconfirmed Plan Of Treatment Pending Test Test Name Order Date Lumbar spine, 4v flex ext - 38485 2023 EMG/NCS Upper Extremity, Right 4 Pre Op: CBC, BMP, EKG, CXR, MRSA-PCR (na ramana swabs) 09/08/2023 Pain management- Eval and treat 07/11/19 24 Insurance Providers Payer Name Payer Address Payer Phone Subscriber Number Group Number Insured Name Patient Relationship to Insured Coverage Start Date Coverage End Date [facility] [address] [address] [place] [phone] [id number] [employer] - patient is the insured Medical (General) History Medical History History ICD Code Diabetes High Blood PressureDepressionAnxietyKidney troubleSleep apneaCPAP Machine: Yes Surgical History Surgery Date(Month/Year) Right cubital tunnel release 10/06/2023
--- OUTSIDE RECORDS SUMMARY | 2025-03-21 06:56 | XMS_ITS | Clinical Summary ---
Author Organization [facility] Address [id number] [address] [place] [address] Care Team Providers Care Bessemer Regulator Name Role Phone Shaikh LEVI Cordoba Primary Care Provider Allergies No known active allergies Medications MedicationSigDispense [...] Problems ProblemNoted DateDiagnosed DateHistory of chest pain03/09/2020Essential cinmatdfonjp98/17/2652Hpnwjhlmdcxs58/17/2020Morbid dnttgrl4703/09/2020Hearing loss 02/24/2020Precordial pain08/06/2019Shortness of ewubof3808/06/2019Cardiomegaly 08/06/2019Sleep apnea08/06/2019 Family History RelationNameStatusCommentsFatherAliveMotherAlive Social History Tobacco UseTypesPacks/DayYears UsedDateSmoking Tobacco: NeverSmokeless Tobacco: Never Tobacco Cessation:Counseling Given: Not Answered Alcohol UseStandard Drinks/WeekCommentsNever0 (1 standard drink = 0.6 oz pure alcohol)AUDIT-CAnswerDate RecordedQ1: How often do you have a drink containing alcohol?Never08/06/2019Average Number of DrinksNot on file08/06/2019Frequency of Binge DrinkingNot on file08/06/2019PHQ-2AnswerDate RecordedTotal Score0 1ChildcareAnswerDate EaqubepdSgncdpxowIcukrxx98/12/2019EmploymentAnswer Date QpxrrhslWjevrabvsgPofsgcd46/12/2019Hunger ScreeningAnswerDate Recorded Within the past 12 months we worried whether our food would run out before we got money to buy more.Never True05/19/2022Within the past 12 months the food we bought just didn't last and we didn't have money to get more.Never True 3Purpose - LifeAnswerDate RecordedPurpose and direction in lifeUnknown 04/19/2020ex and Gender InformationValueDate RecordedSex Assigned at BirthNot on fileLegal PdbSdaq9610/27/2014 12:02 PM EDTGender IdentityNot on fileSexual OrientationNot on file Last Filed Vital Signs Vital SignReadingTime TakenCommentsBlood Kxmrhgzs784/7905/19/2022 4:07 PM EST Itfqc7201/26/2023 4:07 PM NQITnhuvrixcrt18.6 ??C (97.9 ??F)02/21/2020 11:05 PM ESTRespiratory Qyou657305/19/2022 4:07 PM ESTOxygen Jigatiyghm52%05/19/2022 4:07 PM ESTInhaled Oxygen Concentration--Smecja181.8 kg (350 lb)05/19/2022 2:33 PM NBVLilofo185.4 cm (6' 1 )05/19/2022 2:33 PM ESTBody Mass Index46.18005/19/2022 2:33 PM EST Plan of Treatment Health MaintenanceDue DateLast DoneCommentsDepression Ufpnzjidb25/27/1985Tobacco Kgadnmepc46/27/1985DTaP,Tdap and Td Vaccines (1 - Tdap)02/18/1992Zoster (Shingles) Vaccine (1 of 2)2023dult BMI Zwzaelilf29 COVID-19 Vaccine ( - season)/, 07/08/2020, 06/05/2020Influenza Vjwfpce59, 02/06/2020, 02/21/2019, Additional history exists Medical Devices Not on file Insurance * Guarantor: Hair Santos GMAccount TypeRelation to PatientDate of BirthPhone Billing AddressPersonal/CvrodaKmfk1975 [facility] CAMILO CARL [address] [address] Care Teams Team MemberRelationshipSpecialtyStart DateEnd Date Shaikh Cordoba MD [facility]10/24/21
--- OUTSIDE RECORDS SUMMARY | 2025-03-21 06:56 | XMS_ITS | Patient Health Record ---
Author Organization [facility] [place] Address [address] [place] [address] Care Team Providers Care Tour Sales Representative Name Role Phone Shaikh Cordoba MD Primary [...] Coverage End Date [employer] [address] [place], [place] [id number] Hair Santos Self - patient is the insured 3 Medical (General) History Medical History History ICD Code diabetes gouthypertensionSurgical History Surgery Date(Month/Year) kidney stones
[2025-03-21 07:13] VITALS: BP 153/98; PULSE 85; TEMP 36.8; O2SAT 97
[2025-03-21 07:53] VITALS: BP 160/86; BP 162/96; PULSE 78; PULSE 80; O2SAT 94
[2025-03-21] MEDS: METHYLPREDNISOLONE ACETATE 80 MG/ML VIAL INJ (07:55)
[2025-03-21] MEDS: 0.9 % SODIUM CHLORIDE 10 ML SYRINGE - SALINE FLUSH INJ (07:55)
[2025-03-21] MEDS: LIDOCAINE HCL 2% 400 MG/20 ML MDV INJ (07:55)
[2025-03-21] MEDS: BUPIVACAINE HCL 0.25% PF 25 MG/10 ML VIAL INJ (07:55)
[2025-03-21] MEDS: IOHEXOL 240 MG/ML - 10 ML VIAL 24 MG INJ (07:55)
--- NOTE | 2025-03-21 07:56 | P.ON_ITS ---
Date of procedure: 03/21/25 Pre-op diagnosis: Pain due to lumbar stenosis with neurogenic claudication Post-op diagnosis: same as pre-op Procedure: Procedure: Left L4-5, L5-S1 transforaminal epidural steroid injection Medications: Bupivacaine 0.25% 2cc, lidocaine 2% 1cc, depomedrol 80mg The patient was seen and examined in the preoperative holding area.? Informed consent was obtained and placed on the chart.? Patient was brought to the medical procedure unit and placed in the prone position where a timeout was completed verifying the correct patient, procedure site, position, and planned special equipment using sterile aseptic technique.? Under direct fluoroscopic visualization a 25-gauge Quincke tipped spinal needle was advanced to the designated neural foramen where contrast dye was injected to show adequate spread.? The needle was inserted at level left L4-5. There was no evidence of vascular or adverse uptake.? Epidural spread was appreciated.? The above- mentioned injectate was then placed in a 1.5 mL aliquot preceded by negative aspiration.? The needle was removed. The needle was inserted and the procedure repeated at level left L5-S1.? The surgery site was covered.? Patient was taken to the postprocedural recovery area and monitored for an appropriate length of time before found suitable for discharge in the accompaniment of a responsible adult. Anesthesia: Local Surgeon: Swapnil Perkins Pathology: none sent Condition: stable Disposition: no change
== END 2025-03-21 08:01 | disposition home or self-care (01) ==
PROVIDERS: PCP Nurse Practitioner; Visit Provider Anesthesiology
DX: M48.062 Spinal stenosis, lumbar region with neurogenic claudication (principal); G89.29 Other chronic pain; E11.8 Type 2 diabetes mellitus with unspecified complications
CPT/HCPCS: 36415; 64483; 64484; 82948; J0665; J1010; Q9966